=== PATIENT | male | born 1955 | race African-American/Black ===

== ENCOUNTER 2019-10-10 11:30 | Outpatient (RCR) | payer MEDICARE, MEDICAID, SELFPAY ==
[2019-10-01 11:04] VITALS: BP 130/82; PULSE 95; RESP 16; TEMP 37.6; BMI 42.4
--- NOTE | 2019-10-01 11:29 | WC ---
PT STATES HE TAKES NO MEDICATIONS.
--- NOTE | 2019-10-01 12:08 | HP.PCM_ITS ---
(1) Homeless single person Status: Acute Current Visit: Yes Code(s): Z59.0 - Homelessness (2) Swelling of right lower extremity Status: Acute Current Visit: Yes Code(s): M79.89 - Other specified soft tissue disorders (3) Traumatic open wound of right lower leg with infection Status: Acute Current Visit: Yes Code(s): S81.801A - Unspecified open wound, right lower leg, initial encounter; L08.9 - Local infection of the skin and subcutaneous tissue, unspecified (4) Cellulitis of right lower extremity Status: Acute Current Visit: Yes Code(s): L03.115 - Cellulitis of right lower limb History of Present Illness Date of Service: 10/01/19 Chief Complaint: Follow-up right lower leg swelling redness wound right posterior calf History of Wound: 64-year-old black man with homelessness lives in his van with his cat . Was seen today at [facility] they referred him here. Supposedly they simón blood and we will try to obtain the results today. Hit the back of his right leg approximately 2 weeks ago with a car door. Started as a small round injury and now it encompasses the whole calf the right lower leg and foot are swollen red warm to touch. Patient refuses to go to the hospital because of the cat. We discussed if he can try to get someone to take care of the cat return on Sunday for nurse visit we can decide if the leg is improving or not on antimicrobials and antibiotics. Patient is unable to base because of COVID-19 they have closed all the [place]. He goes to the bathroom and most gas stations. Does have an odor and basically has no past medical history. The nurses were able to dopple pulses in the right pedal area Past Medical History Past Medical History: Traumatic wound right posterior leg. Edema right lower leg. Cellulitis right lower leg Allergies/Adverse Reactions: Allergies No Known Allergies Allergy (Verified 10/01/19 11:28) Lives: Alone Smoking Status: Never smoker Tobacco Use: Non-smoker Alcohol: None Drugs: None Review of Systems Constitutional: Reports: Fever - Low grade. Denies: Chills Eyes: Denies: Blurred vision, Drainage, Pain HEENT: Denies: Difficulty Hearing, Difficulty Swallowing, Sore Throat, Visual Changes Cardiovascular: Denies: Chest Pain, Palpitations, Syncope Respiratory: Denies: Cough, Shortness of Breath Gastrointestinal: Denies: Abdominal Pain, Nausea, Vomiting Genitourinary: Denies: Dysuria, Frequency Musculoskeletal: Denies: Joint Pain, Muscle pain Skin: Reports: Wounds - Right posterior calf with swelling of the entire leg redness warm to touch. Denies: Jaundice, Rash Neurological: Denies: Balance problems, Change in Speech, Difficulty swallowing, Focal weakness Psychiatric: Denies: Anxiety, Depression Endocrine: Denies: Change in Body Habitus Hematologic/ Lymphatic: Denies: Adenopathy - Physical Exam Vital Signs Temp Pulse Resp BP 99.6 F H 95 16 130/82 H 10/01/19 11:04 10/01/19 11:04 10/01/19 11:04 10/01/19 11:04 General: Oriented x3, Cooperative, Well developed HEENT: Atraumatic, PERRLA Oral: Moist Mucosa Neck: Supple, No JVD Lungs: Clear to auscultation, Normal air movement Cardiovascular: Regular rate, Regular Rhythm Abdomen: Bowel Sounds Present, Soft, Non Tender, No Hepato-splenomegaly Extremities: No clubbing, Edema - Right lower leg, Peripheral Pulses Normal Skin: Ulcer/ Wound - Traumatic posterior wound to the right lower leg, Rash Present Wound Measurements and Assessment WC - Nurse 1 - General Ulcer Measurement Start: 10/01/19 11:01 Freq: Status: Active Protocol: Activity Type Activity Date Activity User E-Sign Co-Sign Detail Recorded Client Recorded Date Recorded By Document 10/01/19 11:04 [facility] [id number] 10/01/19 11:26 [facility] 10/01/19 11:04 Wound Center Nurse 1 [Ulcer Assessment] #1 RLE POST CLUSTER -Combined with other wound No -Current Size (cm) - Length 32 -Current Size (cm) - Width 31 -Current Size (cm) - Depth 0.1 -Total Square Cm 992 -Date of Last Picture (Recall this 10/01/19 field) -Photo Taken Yes -Epithelialization None Present -Tunneling No -Undermining/Tunneling No -Circular Undermining No -Exudate Amt Small -Exudate Type Serous -Wound Margin Distinct, Outline Attached -Necrosis Amt Large (67-100%) -Necrotic Tissue Type Adherent Slough -Texture (Marva-wound Skin Appearance) Assessed, Scarring -Moisture (Marva-wound Skin Appearance Assessed,Dry/ ) Scaly -Color (Marva-wound Skin Appearance) Assessed, Hemosiderin Staining -Temperature (Marva-wound Skin No Abnormality Appearance) (Pt Warm) -Tenderness on Palpation (Marva-wound Yes Skin Appearance) -Ulcer Cleansing SOAPY WATER -Foul Odor after Cleansing No -Anesthetic Used 4% Lidocaine Solution [Edema Assessment] -Lower Limb Edema Present Yes -Right Calf (cm) 61.5 -Right Ankle (cm) 32.5 -Left Calf (cm) 51 -Left Ankle (cm) 32.5 WC - Nurse 2 - General Ulcer CM Notes Start: 10/01/19 11:01 Freq: Status: Active Protocol: Activity Type Activity Date Activity User E-Sign Co-Sign Detail Recorded Client Recorded Date Recorded By Document 10/01/19 11:38 MW [id number] 10/01/19 12:00 MW 10/01/19 11:38 Wound Center Nurse 2 [Procedure/Treatment] #1 RLE POST CLUSTER -Time 11:39 -Correct Patient Yes -Correct Side, Site, Position Yes -Correct Procedure Yes -Procedure Performed Yes -Type of Procedure Debridement -Clinical Debridement Subcutaneous -Post Debridement Size (cm) - Length 32.0 -Post Debridement Size (cm) - Width 31.0 -Post Debridement Size (cm) - Depth 0.1 -Total Square Cm 992.00 -Wound/Ulcer Outcome Not Healed -Ulcer Cleansing Rinsed/ Irrigated with Saline -Foul Odor after Cleansing No -Bioengineered Tissue No -Bleeding Controlled with Pressure -Offloading No -Treatment Response Procedure Tolerated Well [See Physician Procedure note for Specifics] Pain Scale: 0-10 Numeric [Pain] -Is Patient Pain Free? Yes Musculoskeletal: No Tenderness to Palpation of Joints or Extremities Lymphatic: No Cervical, Supraclavicular, or Inguinal Adenopathy Neurological: Cranial nerves II-XII grossly intact, Neuro grossly intact Psych/Mental Status: Normal Affect, Appropriate, Alert and oriented to time, place, person, mood and affect Debridement Note Post-Debridement Measurements/Treatment - Nurse 2 - General Ulcer CM Notes Start: 10/01/19 11:01 Freq: Status: Active Protocol: Activity Type Activity Date Activity User E-Sign Co-Sign Detail Recorded Client Recorded Date Recorded By Document 10/01/19 11:38 MW [id number] 10/01/19 12:00 MW 05/20/20 11:38 Wound Center Nurse 2 #1 RLE POST CLUSTER -Time 11:39 -Correct Patient Yes -Correct Side, Site, Position Yes -Correct Procedure Yes -Procedure Performed Yes -Type of Procedure Debridement -Clinical Debridement Subcutaneous -Post Debridement Size (cm) - Length 32.0 -Post Debridement Size (cm) - Width 31.0 -Post Debridement Size (cm) - Depth 0.1 -Total Square Cm 992.00 -Wound/Ulcer Outcome Not Healed -Ulcer Cleansing Rinsed/ Irrigated with Saline -Foul Odor after Cleansing No -Bioengineered Tissue No -Bleeding Controlled with Pressure -Offloading No -Treatment Response Procedure Tolerated Well Pain Scale: 0-10 Numeric Is Patient Pain Free? Yes Wound debrided: Right posterior leg Type of Debridement: Excisional debridement Anesthesia Used: 5% Lidocaine Gel Depth: Down to and including healthy tissue, in the subcutaneous layer Percentage of wound debrided: 100 Instrument Used: 7mm curette Tissue Removed: Devitalized tissue slough Severity: Limited To Skin Breakdown Amount of bleeding with debridement: Mild Bleeding Controlled with: Compression and gauze Patient tolerated procedure well Assessment/Plan Active Problems Homeless single person (Acute) Swelling of right lower extremity (Acute) Traumatic open wound of right lower leg with infection (Acute) Cellulitis of right lower extremity (Acute) Assessment: Homeless single person. Traumatic wound right posterior leg. Infected cellulitis swelling right lower leg. Low-grade fever Plan: Wash leg with antibacterial soap. Apply Xeroform dressing to all posterior right lower leg. Pad with ABDs and wrapped with Asif. Zeeshan wrap foot to knee. Follow-up Sunday for nurse visit for dressing change. Start metronidazole 251 p.o. 3 times daily for 14 days. Start Bactrim DS 1 p.o. twice daily for 14 days #28
[2019-10-03 14:25] VITALS: BP 135/73; PULSE 75; RESP 18; TEMP 36.8; BMI 42.4
[2019-10-07 11:01] VITALS: BP 128/70; PULSE 75; RESP 22; TEMP 36.6; BMI 42.4
[2019-10-08 11:04] VITALS: BP 133/74; PULSE 70; RESP 16; TEMP 36.7; BMI 42.4
--- NOTE | 2019-10-08 11:37 | PN.PCM_ITS ---
(1) Homeless single person Status: Acute Current Visit: Yes Code(s): Z59.0 - Homelessness (2) Swelling of right lower extremity Status: Acute Current Visit: Yes Code(s): M79.89 - Other specified soft tissue disorders (3) Traumatic open wound of right lower leg with infection Status: Acute Current Visit: Yes Code(s): S81.801A - Unspecified open wound, right lower leg, initial encounter; L08.9 - Local infection of the skin and subcutaneous tissue, unspecified (4) Cellulitis of right lower extremity Status: Acute Current Visit: Yes Code(s): L03.115 - Cellulitis of right lower limb Type of Wound Date of Service: 10/08/19 Chief Complaint: Follow-up right lower leg swelling redness wound right posterior calf History of Wound: 64-year-old black man with homelessness lives in his van with his cat . Was seen today at [facility] they referred him here. Supposedly they simón blood and we will try to obtain the results today. Hit the back of his right leg approximately 2 weeks ago with a car door. Started as a small round injury and now it encompasses the whole calf the right lower leg with his car door and developed an abrasion now the right foot is swollen red warm to touch. Patient refuses to go to the hospital because of the cat. We discussed if he can try to get someone to take care of the cat return on Sunday for nurse visit we can decide if the leg is improving or not on antimicrobials and antibiotics. Patient is unable to bath because of COVID-19 they have closed all the [place]. He goes to the bathroom and most gas stations. Does have an odor and basically has no past medical history. The nurses were able to dopple pulses in the right pedal area Progress of Wound: Today the wounds are much improved most of the posterior right calf is resolved set for 2 small areas and that was using Xeroform. Swelling is down. Patient grew 3 bacteria is no anaerobes. We will continue the sulfa but will add in clindamycin and Levaquin. Patient may stop the Flagyl. Continue nurse visits twice a week for dressing changes using Xeroform and will add in AmLactin cream to the dry skin. Patient may be discharged soon and just finished antibiotics on his own. Patient was reiterated to start probiotics and eat yogurt - Physical Exam Vital Signs Temp Pulse Resp BP 98.1 F 70 16 133/74 H 10/08/19 11:04 10/08/19 11:04 10/08/19 11:04 10/08/19 11:04 General: Oriented x3, Cooperative, Well developed HEENT: Atraumatic, PERRLA Oral: Moist Mucosa Neck: Supple, No JVD Lungs: Clear to auscultation, Normal air movement Cardiovascular: Regular rate, Regular Rhythm Abdomen: Bowel Sounds Present, Soft, Non Tender, No Hepato-splenomegaly Extremities: No clubbing, No edema Skin: Ulcer/ Wound - Posterior calf and right anterior lock small superficial openings Wound Measurements and Assessment WC - Nurse 1 - General Ulcer Measurement Start: 10/01/19 11:01 Freq: Status: Active Protocol: Activity Type Activity Date Activity User E-Sign Co-Sign Detail Recorded Client Recorded Date Recorded By Document 10/07/19 11:01 DL [id number] 10/07/19 11:22 DL Document 10/08/19 11:04 [facility] [id number] 10/08/19 11:13 [facility] 10/07/19 10/08/19 11:01 11:04 Wound Center Nurse 1 [Ulcer Assessment] #1 RLE POST CLUSTER -Combined with other wound No -Current Size (cm) - Length 0.1 -Current Size (cm) - Width 0.1 -Current Size (cm) - Depth 0.1 -Total Square Cm 0.01 -Photo Taken No -Epithelialization Large 67-100% -Tunneling No -Undermining/Tunneling No -Circular Undermining No -Exudate Amt None Present -Wound Margin Flat & Intact -Granulation Amt Small (1-33%) -Granulation Quality Red -Slough/Fibrin No -Necrosis Amt None Present (0 %) -Texture (Marva-wound Skin Appearance) Scarring Assessed, Scarring -Moisture (Marva-wound Skin Appearance Dry/Scaly Assessed, ) Maceration,Dry/ Scaly -Color (Marva-wound Skin Appearance) Hemosiderin Assessed,Palor Staining -Temperature (Marva-wound Skin No Abnormality No Abnormality Appearance) (Pt Warm) (Pt Warm) -Tenderness on Palpation (Marva-wound No No Skin Appearance) -Ulcer Cleansing Wound Cleanser soapy water -Foul Odor after Cleansing No No -Anesthetic Used 4% Lidocaine Solution [Edema Assessment] -Lower Limb Edema Present Yes -Right Calf (cm) 52 -Right Ankle (cm) 28.6 WC - Nurse 2 - General Ulcer CM Notes Start: 10/01/19 11:01 Freq: Status: Active Protocol: Activity Type Activity Date Activity User E-Sign Co-Sign Detail Recorded Client Recorded Date Recorded By Document 10/08/19 11:22 MW [id number] 10/08/19 11:28 MW 10/08/19 11:22 Wound Center Nurse 2 [Procedure/Treatment] #2 right lateral lock -Time 11:24 -Correct Patient Yes -Correct Side, Site, Position Yes -Correct Procedure Yes -Procedure Performed Yes -Type of Procedure Debridement -Clinical Debridement Subcutaneous -Post Debridement Size (cm) - Length 1.0 -Post Debridement Size (cm) - Width 1.2 -Post Debridement Size (cm) - Depth 0.1 -Total Square Cm 1.20 -Wound/Ulcer Outcome Not Healed -Ulcer Cleansing Rinsed/ Irrigated with Saline -Foul Odor after Cleansing No -Bioengineered Tissue No -Bleeding Controlled with Pressure -Offloading No -Treatment Response Procedure Tolerated Well #1 RLE POST CLUSTER -Time 11:23 -Correct Patient Yes -Correct Side, Site, Position Yes -Correct Procedure Yes -Procedure Performed Yes -Type of Procedure Debridement -Clinical Debridement Subcutaneous -Post Debridement Size (cm) - Length 7.0 -Post Debridement Size (cm) - Width 4.5 -Post Debridement Size (cm) - Depth 0.1 -Total Square Cm 31.50 -Wound/Ulcer Outcome Not Healed -Ulcer Cleansing Rinsed/ Irrigated with Saline -Foul Odor after Cleansing No -Bioengineered Tissue No -Bleeding Controlled with Pressure -Offloading No -Treatment Response Procedure Tolerated Well [See Physician Procedure note for Specifics] Musculoskeletal: No Tenderness to Palpation of Joints or Extremities Lymphatic: No Cervical, Supraclavicular, or Inguinal Adenopathy Neurological: Cranial nerves II-XII grossly intact, Neuro grossly intact Psych/Mental Status: Normal Affect, Appropriate Debridement Note Post-Debridement Measurements/Treatment WC - Nurse 2 - General Ulcer CM Notes Start: 10/01/19 11:01 Freq: Status: Active Protocol: Activity Type Activity Date Activity User E-Sign Co-Sign Detail Recorded Client Recorded Date Recorded By Document 10/01/19 11:38 MW [id number] 10/01/19 12:00 MW Document 10/08/19 11:22 MW [id number] 10/08/19 11:28 MW 10/01/19 10/08/19 11:38 11:22 Wound Center Nurse 2 #2 right lateral lock -Time 11:24 -Correct Patient Yes -Correct Side, Site, Position Yes -Correct Procedure Yes -Procedure Performed Yes -Type of Procedure Debridement -Clinical Debridement Subcutaneous -Post Debridement Size (cm) - Length 1.0 -Post Debridement Size (cm) - Width 1.2 -Post Debridement Size (cm) - Depth 0.1 -Total Square Cm 1.20 -Wound/Ulcer Outcome Not Healed -Ulcer Cleansing Rinsed/ Irrigated with Saline -Foul Odor after Cleansing No -Bioengineered Tissue No -Bleeding Controlled with Pressure -Offloading No -Treatment Response Procedure Tolerated Well #1 RLE POST CLUSTER -Time 11:39 11:23 -Correct Patient Yes Yes -Correct Side, Site, Position Yes Yes -Correct Procedure Yes Yes -Procedure Performed Yes Yes -Type of Procedure Debridement Debridement -Clinical Debridement Subcutaneous Subcutaneous -Post Debridement Size (cm) - Length 32.0 7.0 -Post Debridement Size (cm) - Width 31.0 4.5 -Post Debridement Size (cm) - Depth 0.1 0.1 -Total Square Cm 992.00 31.50 -Wound/Ulcer Outcome Not Healed Not Healed -Ulcer Cleansing Rinsed/ Rinsed/ Irrigated with Irrigated with Saline Saline -Foul Odor after Cleansing No No -Bioengineered Tissue No No -Bleeding Controlled with Pressure Pressure -Offloading No No -Treatment Response Procedure Procedure Tolerated Well Tolerated Well Pain Scale: 0-10 Numeric Is Patient Pain Free? Yes Wound debrided: Right posterior calf cluster Type of Debridement: Excisional debridement Anesthesia Used: 5% Lidocaine Gel Depth: Down to and including healthy tissue Instrument Used: 7mm curette Tissue Removed: Devitalized tissue Severity: Limited To Skin Breakdown Amount of bleeding with debridement: None Bleeding Controlled with: Pressure - Additional Wound Wound debrided: Anterior lateral lock Laterality: Right Type of Debridement: Excisional debridement Anesthesia Used: 5% Lidocaine Gel Depth: Down to and including healthy tissue Percentage of wound debrided: 100 Instrument Used: 7mm curette Tissue Removed: Devitalized tissue Severity: Limited To Skin Breakdown Amount of bleeding with debridement: None Bleeding Controlled with: Pressure Patient tolerated procedure: Patient tolerated procedure well Assessment/Plan Active Problems Homeless single person (Acute) Swelling of right lower extremity (Acute) Traumatic open wound of right lower leg with infection (Acute) Cellulitis of right lower extremity (Acute) Assessment: Homeless single person. Traumatic wound right posterior leg. Infected cellulitis swelling right lower leg. Low-grade fever Plan: Wash leg with antibacterial soap. Apply Xeroform dressing to all posterior right lower leg. Pad with ABDs and wrapped with Asif. Zeeshan wrap foot to knee. Follow-up Sunday for nurse visit for dressing change. Start metronidazole 251 p.o. 3 times daily for 14 days. Start Bactrim DS 1 p.o. twice daily for 14 days #28
[2019-10-10 11:30] VITALS: BP 128/75; PULSE 72; RESP 16; TEMP 36.5; BMI 42.4
== END 2019-10-12 23:59 ==
LOC: WC 11:30
PROVIDERS: Visit Provider Nurse Practitioner
DX: S81.801A Unspecified open wound, right lower leg, initial encounter (principal); L03.115 Cellulitis of right lower limb; M79.89 Other specified soft tissue disorders; Z59.0 Homelessness
CPT/HCPCS: 11042; 11045; 87070; 87075; 87077; 87186; 87205; 99203; 99212; 99213; G0463

== ENCOUNTER 2019-10-15 11:00 | Outpatient (RCR) | payer MEDICARE, MEDICAID, SELFPAY ==
[2019-10-13 00:35] VITALS: BP 128/75; PULSE 72; RESP 16; TEMP 36.5
[2019-10-13 11:46] VITALS: BP 156/61; PULSE 91; RESP 22; TEMP 35.7; BMI 42.4
[2019-10-15 11:07] VITALS: BP 129/71; PULSE 78; RESP 16; TEMP 36.5; BMI 42.4
--- NOTE | 2019-10-15 11:31 | PCM.WC.PN ---
(1) Cellulitis of right lower extremity Status: Acute Current Visit: No Code(s): L03.115 - Cellulitis of right lower limb (2) Homeless single person Status: Acute Current Visit: No Code(s): Z59.0 - Homelessness (3) Swelling of right lower extremity Status: Acute Current Visit: No Code(s): M79.89 - Other specified soft tissue disorders (4) Traumatic open wound of right lower leg with infection Status: Acute Current Visit: No Code(s): S81.801A - Unspecified open wound, right lower leg, initial encounter; L08.9 - Local infection of the skin and subcutaneous tissue, unspecified Type of Wound Date of Service: 10/15/19 Chief Complaint: Follow-up right lower leg swelling redness wound right posterior calf History of Wound: 64-year-old black man with homelessness lives in his van with his cat . Was seen today at [facility] they referred him here. Supposedly they simón blood and we will try to obtain the results today. Hit the back of his right leg approximately 2 weeks ago with a car door. Started as a small round injury and now it encompasses the whole calf the right lower leg with his car door and developed an abrasion now the right foot is swollen red warm to touch. Patient refuses to go to the hospital because of the cat. We discussed if he can try to get someone to take care of the cat return on Sunday for nurse visit we can decide if the leg is improving or not on antimicrobials and antibiotics. Patient is unable to bath because of COVID-19 they have closed all the [place]. He goes to the bathroom and most gas stations. Does have an odor and basically has no past medical history. The nurses were able to dopple pulses in the right pedal area Progress of Wound: Today all the wounds are healed patient will be discharged from the wound center - Physical Exam Vital Signs Temp Pulse Resp BP 97.7 F L 78 16 129/71 H 10/15/19 11:10/15/19 11:07 10/15/19 11:10/15/19 11:07 General: Oriented x3, Cooperative, Well developed HEENT: Atraumatic, PERRLA Oral: Moist Mucosa Neck: Supple, No JVD Lungs: Clear to auscultation, Normal air movement Cardiovascular: Regular rate, Regular Rhythm Abdomen: Bowel Sounds Present, Soft, Non Tender, No Hepato-splenomegaly Extremities: No clubbing, No edema Skin: Ulcer/ Wound - Right posterior calf anterior calf resolved leg is still has some erythema Wound Measurements and Assessment WC - Nurse 1 - General Ulcer Measurement Start: 10/13/19 11:46 Freq: Status: Active Protocol: Activity Type Activity Date Activity User E-Sign Co-Sign Detail Recorded Client Recorded Date Recorded By Document 10/13/19 11:46 DL [id number] 10/13/19 11:50 DL Document 10/15/19 11:07 BMF [id number] 10/15/19 11:14 BMF 10/13/19 10/15/19 11:46 11:07 Wound Center Nurse 1 [Ulcer Assessment] #2 right lateral lock -Combined with other wound No -Current Size (cm) - Length 0.1 -Current Size (cm) - Width 0.1 -Current Size (cm) - Depth 0.1 -Total Square Cm 0.01 -Photo Taken No -Epithelialization Large 67-100% -Tunneling No -Undermining/Tunneling No -Circular Undermining No -Exudate Amt None Present -Wound Margin Indistinct, Non -Visible -Slough/Fibrin Yes -Necrosis Amt Small (1-33%) -Necrotic Tissue Type Eschar -Texture (Marva-wound Skin Appearance) Scarring Assessed, Scarring -Moisture (Marva-wound Skin Appearance Dry/Scaly Assessed,Dry/ ) Scaly -Color (Marva-wound Skin Appearance) Hemosiderin Assessed Staining -Temperature (Marva-wound Skin No Abnormality No Abnormality Appearance) (Pt Warm) (Pt Warm) -Tenderness on Palpation (Marva-wound No No Skin Appearance) -Ulcer Cleansing Wound Cleanser soapy water -Foul Odor after Cleansing No No #1 RLE POST CLUSTER -Combined with other wound No -Current Size (cm) - Length 0.1 -Current Size (cm) - Width 0.1 -Current Size (cm) - Depth 0.1 -Total Square Cm 0.01 -Photo Taken No -Epithelialization Large 67-100% -Tunneling No -Undermining/Tunneling No -Circular Undermining No -Exudate Amt None Present None Present -Texture (Marva-wound Skin Appearance) Scarring Assessed, Scarring -Moisture (Marva-wound Skin Appearance Dry/Scaly Assessed,Dry/ ) Scaly -Color (Marva-wound Skin Appearance) No Abnormality Assessed -Temperature (Marva-wound Skin No Abnormality No Abnormality Appearance) (Pt Warm) (Pt Warm) -Tenderness on Palpation (Marva-wound No No Skin Appearance) -Ulcer Cleansing Wound Cleanser soapy water -Foul Odor after Cleansing No No [Edema Assessment] -Lower Limb Edema Present Yes -Right Calf (cm) 55 54.6 -Right Ankle (cm) 33 31.3 WC - Nurse 2 - General Ulcer CM Notes Start: 10/13/19 11:46 Freq: Status: Active Protocol: Activity Type Activity Date Activity User E-Sign Co-Sign Detail Recorded Client Recorded Date Recorded By Document 10/15/19 11:28 MW [id number] 10/15/19 11:29 MW 10/15/19 11:28 Wound Center Nurse 2 [Procedure/Treatment] #2 right lateral lock -Time 11:28 -Correct Patient Yes -Correct Side, Site, Position Yes -Correct Procedure Yes -Procedure Performed No -Post Debridement Size (cm) - Length 0 -Post Debridement Size (cm) - Width 0 -Post Debridement Size (cm) - Depth 0 -Total Square Cm 0 -Wound/Ulcer Outcome Healed- Epithelialized #1 RLE POST CLUSTER -Time 11:28 -Correct Patient Yes -Correct Side, Site, Position Yes -Correct Procedure Yes -Procedure Performed No -Post Debridement Size (cm) - Length 0 -Post Debridement Size (cm) - Width 0 -Post Debridement Size (cm) - Depth 0 -Total Square Cm 0 -Wound/Ulcer Outcome Healed- Epithelialized [See Physician Procedure note for Specifics] Pain Scale: 0-10 Numeric [Pain] -Is Patient Pain Free? Yes Musculoskeletal: No Tenderness to Palpation of Joints or Extremities Lymphatic: No Cervical, Supraclavicular, or Inguinal Adenopathy Neurological: Cranial nerves II-XII grossly intact, Neuro grossly intact Psych/Mental Status: Normal Affect, Appropriate Debridement Note Post-Debridement Measurements/Treatment - Nurse 2 - General Ulcer CM Notes Start: 10/13/19 11:46 Freq: Status: Active Protocol: Activity Type Activity Date Activity User E-Sign Co-Sign Detail Recorded Client Recorded Date Recorded By Document 10/15/19 11:28 MW [id number] 10/15/19 11:29 MW 10/15/19 11:28 Wound Center Nurse 2 #2 right lateral lock -Time 11:28 -Correct Patient Yes -Correct Side, Site, Position Yes -Correct Procedure Yes -Procedure Performed No -Post Debridement Size (cm) - Length 0 -Post Debridement Size (cm) - Width 0 -Post Debridement Size (cm) - Depth 0 -Total Square Cm 0 -Wound/Ulcer Outcome Healed- Epithelialized #1 RLE POST CLUSTER -Time 11:28 -Correct Patient Yes -Correct Side, Site, Position Yes -Correct Procedure Yes -Procedure Performed No -Post Debridement Size (cm) - Length 0 -Post Debridement Size (cm) - Width 0 -Post Debridement Size (cm) - Depth 0 -Total Square Cm 0 -Wound/Ulcer Outcome Healed- Epithelialized Pain Scale: 0-10 Numeric Is Patient Pain Free? Yes No debridement was completed today Assessment/Plan Assessment: Homeless single person. Traumatic wound right posterior leg. Infected cellulitis swelling right lower leg. Low-grade fever Plan: Continue antibiotic therapy till done. Continue amLactin cream to dry areas. Continue washing and cleaning legs. Follow-up as needed discharge from the wound center
== END 2019-11-11 23:59 ==
LOC: WC 11:00
PROVIDERS: Visit Provider Nurse Practitioner
DX: S81.801A Unspecified open wound, right lower leg, initial encounter (principal); M79.89 Other specified soft tissue disorders; Z59.0 Homelessness; L03.115 Cellulitis of right lower limb
CPT/HCPCS: 99212; 99213; G0463

== ENCOUNTER 2022-09-22 08:04 | Emergency (ER) | payer MEDICARE, MEDICAID, SELFPAY ==
[2022-09-22 08:05] VITALS: BP 124/75; PULSE 99; RESP 16; TEMP 36.6; O2SAT 96
[2022-09-22 08:19] VITALS: BMI 49.1
--- NOTE | 2022-09-22 08:21 | EX.ED.DYSGE1 ---
HPI History of Present Illness Chief Complaint: Edema Informant: patient Narrative Narrative: Patient presenting with chronic edema to both of his legs he thinks they have been worse in the past 2 weeks, limiting his ability to stand and walk although he states he is still able and he walked in here. He states he is homeless and does not see a doctor and wants to get things started. He had seen wound care at 1 point in the past unknown how long ago. He has had a sore open wound either from rubbing on his shoe or from accidentally picking open a scab, on his left foot/ankle for about the past week. He denies any systemic symptoms or issues above the legs right now. He states he had a cough several weeks ago where he was coughing up sputum and then small amount of blood but all of that stopped and is better now. PFSH PFSH Medical History no medical history no medical history (Unknown due to not seeing a provider in a long time) Home Medications bacitracin zinc 500 unit/gram topical ointment 1 applic topical BID PRN wounds #14 grams 09/22/22 [Rx Last Taken Unknown] furosemide 40 mg tablet (Lasix) 40 mg PO DAILY #30 tabs 09/22/22 [Rx Last Taken Unknown] potassium chloride 20 mEq tablet,extended release 20 meq PO BID #60 tabs 09/22/22 [Rx Last Taken Unknown] Allergy/AdvReac Type Severity Reaction Status Date / Time No Known Allergies Allergy Verified 09/22/22 08:05 Social History Smoking Status: Never smoker [facility] ED Constitutional Constitutional ED: Denies chills or fever(s) Eyes Eyes: Denies change in vision or diplopia ENT ENT ED: Denies rhinorrhea or sore throat Cardiovascular Cardiovascular: Reports leg edema; Denies chest pain or palpitations Respiratory/Chest Respiratory/Chest: Denies cough or dyspnea Gastrointestinal Gastrointestinal: Denies abdominal pain, diarrhea, nausea or vomiting Genitourinary Genitourinary ED: Denies dysuria or hematuria Musculoskeletal Musculoskeletal: Reports as per HPI and extremity pain; Denies back pain or neck pain Integumentary Reports wounds; Denies abscess or rash Neurologic Neurologic: Denies headache(s), paresthesias or weakness Psychiatric Psychiatric: Denies anxiety or suicidal thoughts EXAM Physical Exam Const Vital Signs: 09/22/22 08:05 09/22/22 08:15 Temperature 97.8 F Temperature Source Temporal Pulse Rate 99 Respiratory Rate 16 Respiratory Effort Normal Non-Labored Blood Pressure 124/75 H Blood Pressure Mean 91 Pulse Ox 96 Oxygen Delivery Method Room Air Positive well nourished, well developed, obese and unkempt General Appearance ED: unkempt, well developed and NAD Nutritional Appearance: obese HEENT Reports moist mucous membranes normocephalic and atraumatic Eyes PERRL and EOMs intact bilaterally Neck full ROM and supple Resp normal respiratory effort and clear to auscultation bilaterally Cardio regular rate, regular rhythm and no murmurs Rate: Negative for tachycardic GI non-tender and non-distended Auscultation: normoactive bowel sounds Palpation: soft Back/Spine no CVA tenderness General Back: other FROM Extremity Extremity Narrative: Superficial ulcerated wound with some signs of granulation tissue about 5-6 cm? left dorsal-lateral ankle area, and another 1 on the back of his distal left calf. The exposed wounds themselves are a little sore but there is no surrounding tenderness/signs of cellulitis. There is also a nontender boggy area right heel that has some serosanguineous discharge from it. Otherwise, both of his lower extremities have severe chronic swelling, scabbing, signs of stasis dermatitis, and signs of elephantiasis with folds and creases in the skin. General Extremety ED: Yes edema and tenderness; Negative for pulses abnormal General Extremity: edema bilateral lower extremity Details: severe; Negative for pulses abnormal Neuro oriented x3, CN's II-XII intact bilaterally and no sensory deficits noted Sensorium / Orientation: awake and alert Motor Exam: strength 5/5 throughout Psych Appearance: unkempt Skin no rashes or lesions noted and no wounds MDM MDM MDM Narrative Medical decision making narrative: Patient has severely chronic problems in his lower extremities, but except for the minor wound do not appear to be infected, none of it looks emergent. Basic labs are unremarkable except for slight hypokalemia, I did a BNP just because of the amount of edema he was having, it is well within normal limits arguing against acute decompensated congestive heart failure. I also did 2 view x-rays of each ankle, to capture the areas where the wounds were, on my interpretation there is swelling but no subcutaneous gas to suggest a necrotizing infection. Radiology interpretation was reviewed and they are in agreement. I give the patient He while we were observing him, I think he is going to need this going forward and I will put him on potassium as well as referring him to wound care, but I am having social work see him to see if there is anything else they can offer him since I do not have a medical reason to admit him. We will also perform a dressing treatment for either of the wounds on his feet/ankles, and I am prescribing him antibiotic ointment to use topically for those to prevent infection. I did send a culture of the fluid coming out of the heel wound on the right foot. I do not think he needs antibiotics systemically at this time. Social work saw him and gave him some resources that hopefully will help, I will refer him to PCP as well as wound care, nursing will give him some supplies to use with the prescribed bacitracin, as well as dressings here and instructions for discharge. Lab Data Attestation: I reviewed the patient's lab results. Labs: Laboratory Results - last 24 hr 09/22/22 09/22/22 09/22/22 08:50 08:50 08:50 WBC 8.9 RBC 4.45 L Hgb 12.5 L Hct 39.7 L MCV 89.2 MCH 28.1 MCHC 31.5 L RDW Std Deviation 45.7 H RDW Coeff of Thiago 14.1 Plt Count 236 MPV 10.0 Immature Gran % (Auto) 1.600 H Neut % (Auto) 79.6 H Lymph % (Auto) 9.5 L [place] % (Auto) 6.9 Eos % (Auto) 1.5 Baso % (Auto) 0.9 Absolute Neuts (auto) 7.1 Absolute Lymphs (auto) 0.84 Nucleated RBC % 0 Sodium 138 Potassium 3.2 L Chloride 103 Carbon Dioxide 30.0 Anion Gap 5 BUN 13 Creatinine 0.85 Estim Creat Clear Calc 87.36 Est GFR (MDRD) Af Amer 115 Est GFR (MDRD) Non-Af 95 BUN/Creatinine Ratio 15.4 Glucose 107 H Calcium 9.2 B-Natriuretic Peptide 24.2 Radiography Diagnostic Testing: Clinical Impression(s) from Imaging Studies Ankle X-Ray 09/22/22 09:16 IMPRESSION: Diffuse soft tissue swelling. Electronically Signed: Ferny Estrada MD at 9:44 EDT , Ankle X-Ray 09/22/22 09:20 IMPRESSION: Diffuse soft tissue swelling. Electronically Signed: Ferny Estrada MD at 9:45 EDT , Management Discussion w/another healthcare provider: youth care worker/Case management Discharge Plan Triage Chief Complaint: Edema ED Provider: Cristhian Mckenzie Dx/Rx/DC Orders Clinical Impression: Lymphedema of both lower extremities, Open wound of foot excluding toes without complication, Hypokalemia Instructions: Hypokalemia Dc, ED Lymphedema Prescriptions: New furosemide [Lasix] 40 mg tablet 40 mg PO DAILY Qty: 30 0RF potassium chloride 20 mEq tablet extended release 20 meq PO BID Qty: 60 0RF bacitracin zinc 500 unit/gram ointment 1 applic topical BID PRN (Reason: wounds) Qty: 14 0RF Primary Care Provider: Yajaira Heller Referrals: Wound Health [Outside] Yajaira Heller [Primary Care Provider] - Activity Restrictions/Additional Instructions: Follow nurses instructions regarding dressing changes to your foot wounds. Change the dressings twice daily at least, applying a small amount of the prescription antibiotic ointment to the dressing with each change. Disposition Disposition: Home, Self Care
[2022-09-22 09:04] LABS: Absolute Lymphocyte Count 0.84 X10^3/uL (0.83-4.51); Absolute Neutrophil Count 7.1 X10^3/uL (2.0-7.7); Basophil# 0.08 X10^3/uL; Basophil% 0.9 % (0-1); Eosinophil# 0.13 X10^3/uL; Eosinophils% 1.5 % (0-5); Hematocrit 39.7 % (40-54); Hemoglobin 12.5 g/dL (13.0-16.5); Lymphocyte # 0.84 X10^3/ul (0.83-4.51); Lymphocyte % 9.5 % (19-41); Mean Corp Hgb Conc 31.5 g/dL (32-36); Mean Corpuscular Hgb 28.1 pg (27.0-32.0); Mean Corpuscular Volume 89.2 fL (80-94); Monocyte# 0.61 X10^3/uL; Monocyte% 6.9 % (0-10); NRBC Flagged by Analyzer 0 % (0-5); Neutrophil # 7.08 X10^3/uL (2.7-7.7); Neutrophil % 79.6 % (47-70); Platelet Count 236 K/mm3 (150-450); RBC Distribution Width CV 14.1 % (11.6-14.6); RBC Distribution Width SD 45.7 fl (35.1-43.9); Red Blood Count 4.45 M/mm3 (4.6-6.2); White Blood Count 8.9 K/mm3 (4.4-11.0)
--- NOTE | 2022-09-22 09:16 | RAD_ITS ---
STUDY: X-RAY - RIGHT ANKLE REASON FOR EXAM: Male, 67 years old. PAIN/SWELLING TECHNIQUE: 2 view(s) of the ankle. COMPARISON: None. FINDINGS: Normal visualized distal tibia and fibula. Normal medial and lateral malleoli. Normal tibiotalar articulation and ankle mortise. Small plantar calcaneal spur. The visualized subtalar, talonavicular, calcaneocuboid and tarsal articulations are normal. Diffuse soft tissue swelling. RAD/Ankle 2 Views IMPRESSION: Diffuse soft tissue swelling. Electronically Signed: Ferny Estrada MD at 9:44 EDT ,
[2022-09-22 09:18] LABS: Anion Gap 5 (5-15); BUN 13 mg/dL (7-18); BUN/Creat Ratio 15.4 RATIO (10-20); Calcium,Total 9.2 mg/dL (8.5-10.1); Chloride 103 mmol/L (98-107); Creatinine, Serum 0.85 mg/dL (0.70-1.30); EST Glomerular Filtration Rate 95 mL/min (>60); Est Glom Filt Rate - Afr Amer 115 mL/min (>60); Estimated Creatinine Clearance 87.36 ml/min; Glucose 107 mg/dL (74-106); Potassium 3.2 mmol/L (3.5-5.1); Sodium Level 138 mmol/L (136-145)
[2022-09-22 09:19] LABS: BNP,B-Type NATRIURETIC PEPTIDE 24.2 pg/mL (0-100)
--- NOTE | 2022-09-22 09:20 | RAD_ITS ---
STUDY: X-RAY - LEFT ANKLE REASON FOR EXAM: Male, 67 years old. Pain/swelling TECHNIQUE: 2 view(s) of the ankle. COMPARISON: None. FINDINGS: Normal visualized distal tibia and fibula. Normal medial and lateral malleoli. Normal tibiotalar articulation and ankle mortise. A spur is seen at the insertion of the Achilles tendon. The visualized subtalar, talonavicular, calcaneocuboid and tarsal articulations are normal. Diffuse soft tissue swelling. RAD/Ankle 2 Views IMPRESSION: Diffuse soft tissue swelling. Electronically Signed: Ferny Estrada MD at 9:45 EDT ,
[2022-09-22] MEDS: Furosemide 40 MG/4 ML Vial IV (09:42)
--- NOTE | 2022-09-22 11:30 | CM.ED ---
Social Work Note Referral Source: MD Mckenzie/ applied behavior science specialist Aminata Referral Reason: resources applied behavior science specialist reports patient is homeless and living in his vehicle. reviewed symptoms and need for additional resources. BRIANA met with patient and patient's guest and introduced herself and role as [facility] Director Environmental. Patient explained his guest is his friend of 7 years and agreed to speak to SW with friend present. SW engaged patient in conversation regarding current housing, community resources and needs. Patient reports he has lived in a vehicle for ten years and has not wanted to go to [facility] or other shelters. Patient reports he is not connected with any community agencies but has utilized [employer] services in the past. SW reviewed [employer] card and explored meal options provided daily. SW also discussed senior accounts specialist with [facility] [employer], [facility] programs, and local housing support. Patient declined referrals for resources but states he will follow up with [facility] for an assessment. Patient's friend inquired about shoe options. Patient reports he isn't interested in getting shoes, SW inquired if she could gather information regarding options and patient can use if he decides, patient agrees. BRIANA provided patient with information for [employer] to discuss available shoe options. SW also encouraged patient to contact Yajaira Heller for a possible prescription for medical shoes. BRIANA explained patient could contact their office to schedule an appointment or go to [facility] in [place] on from 8-10am as Yajaira Heller staff provide care to patients on a walk in basis. Patient reports understanding and has no other needs at this time. BRIANA contacted Bernardo with [facility] to discuss referral for patient. Bernardo to follow up with patient. Plan: [employer] for housing and meal options, [employer] information, Yajaira Heller information, [employer] and [employer] Senior visitor services specialist. Patient declined referrals but plans to contact [facility] and follow up with Yajaira JORGE, ROSALINDA
[2022-09-22] MEDS: Potassium Chloride Oral Tablet 20 MEQ 40 MEQ PO (11:52)
[2022-09-22 12:00] VITALS: RESP 22
== END 2022-09-22 12:26 | disposition home or self-care (01) ==
PROVIDERS: Emergency Provider Emergency Medicine; Visit Provider Emergency Medicine
DX: I89.0 Lymphedema, not elsewhere classified (principal); S91.302A Unspecified open wound, left foot, initial encounter; E87.6 Hypokalemia; E66.9 Obesity, unspecified; X58.XXXA Exposure to other specified factors, initial encounter
CPT/HCPCS: 73600; 80048; 83880; 85025; 87070; 87077; 87186; 87205; 96374; 99284; A4216; J1940

== ENCOUNTER 2022-10-10 09:00 | Outpatient (RCR) | payer MEDICARE, MEDICAID, SELFPAY ==
[2022-10-05 09:08] VITALS: BP 138/98; RESP 16; TEMP 36.6; BMI 47.4
--- NOTE | 2022-10-05 12:52 | PCM.WC.HP ---
History of Present Illness Date of Service: 10/05/22 Chief Complaint: Bilateral lower extremity ulcers. History of Wound: Mr. Beltran is a 67 yo who was referred to the wound center due to bilateral lower extremity ulcer. Clinic history of lymphedema. He is currently homeless and has been living in his van. He states that over the recent months, he has been sitting a lot more is not as active as it should be. He also states that he has not been using his compression. Recently seen at the emergency room due to concern for feeling unwell, he was started on antibiotics and has 1 more day of it. Tolerating antibiotic well. Initially had a lot of drainage from his ulcers but he states that this has improved. No known history of diabetes. No chills, fever or feeling of unwell at this time. [facility] Medical History (Updated 10/05/22 @ 13:[address] Franklyn Sanchez MD) Lymphedema Ulcer of left lower extremity with fat layer exposed Ulcer of right lower extremity with fat layer exposed Home Medications bacitracin zinc 500 unit/gram topical ointment 1 applic topical BID PRN wounds #14 grams 09/22/22 [Rx Last Taken Unknown] furosemide 40 mg tablet (Lasix) 40 mg PO DAILY #30 tabs 09/22/22 [Rx Last Taken Unknown] potassium chloride 20 mEq tablet,extended release 20 meq PO BID #60 tabs 09/22/22 [Rx Last Taken Unknown] levofloxacin 500 mg tablet 500 mg PO DAILY #10 tabs 09/26/22 [Rx Last Taken Unknown] Allergy/AdvReac Type Severity Reaction Status Date / Time No Known Allergies Allergy Verified 10/05/22 09:41 Social History Smoking Status: Former smoker ROS Constitutional Constitutional: Denies excessive sweating, fatigue, fever(s), headache(s), lethargy or malaise Eyes Eyes: Denies change in eye color, change in vision, discharge from eye(s), discongugate gaze, double vision or dry eyes ENT HEENT: Denies headache(s), hearing loss, hoarseness, mouth pain, nasal congestion, nasal discharge or nasal obstruction Cardiovascular Cardiovascular: Reports edema; Denies cold extremities, cyanosis, diaphoresis, dizziness, dyspnea at rest or flutter in chest Respiratory/Chest Respiratory/Chest: Denies excessive phlegm production, hemoptysis, inability to speak, mouth breathing, nail bed cyanosis, productive cough or restlessness Gastrointestinal Gastrointestinal: Denies belching, chewing difficulty, constipation, dysphagia, nausea or vomiting Genitourinary Genitourinary: Denies abdominal discomfort, anuria, flank pain or itching Musculoskeletal Musculoskeletal: Reports extremity pain; Denies deformity, loss of height, muscle weakness, tingling or tremors Integumentary Integumentary: Reports wounds; Denies change in pigmentation, changing lesions, erythema, furuncle, hirsutism, jaundice or lesions Neurologic Neurologic: Denies dizziness, focal weakness, frequent falls, headache(s), lack of coordination, loss of vision, memory loss or numbness Psychiatric Psychiatric: Denies cognitive impairment, confusion, depression, difficulty concentrating, hallucinations, homicidal ideation or hopelessness Endocrine Endocrinology: Denies cold intolerance, deepening of the voice, excessive sweating, flushing, heat intolerance or palpitations Allergic/Immunologic Allergic/Immunologic: Denies lip swelling, rhinitis, throat swelling, tongue swelling or wheezing Vital Signs Vital Signs Vital Signs: 10/05/22 09:08 Temperature 97.9 F Temperature Source Temporal Respiratory Rate 16 Blood Pressure 138/98 H Blood Pressure Mean 111 Blood Pressure Source Monitor Blood Pressure Position Sitting Blood Pressure Location Left Forearm Oxygen Delivery Method Room Air Weight Weight: 340 lb Body Mass Index (BMI) 47.4 Physical Exam Const alert, oriented x3 and no apparent distress General Appearance: cooperative and comfortable HEENT normocephalic, head/scalp atraumatic and hearing grossly normal bilaterally Eyes EOMs intact bilaterally Neck full ROM Resp normal respiratory effort Effort and Inspection: able to speak in complete sentences Extremity General Extremity: edema Skin Wounds: wounds noted Neuro oriented x3, CN's II-XII intact bilaterally and moves all extremities Psych mental status grossly normal, thought process normal, cooperative and affect normal Debridement Note Debridement Note Wound debrided: Left lower extremity lateral Type of Debridement: Excisional debridement Anesthesia Used: 4% Lidocaine Solution Depth: Down to and including healthy tissue and in the subcutaneous layer Percentage of wound debrided: 100 Instrument Used: 5mm curette Tissue Removed: Slough and devitalized tissue Severity: Fat Layer Exposed Amount of bleeding with debridement: Mild Bleeding Controlled with: Pressure Patient tolerated procedure: Patient tolerated procedure well Post-Debridement Measurements and Additional Note: Post-Debridement Measurements/Treatment WC - Nurse 1 - General Ulcer Assessment Start: 10/05/22 08:49 Freq: Status: Active Protocol: WILLIAM Activity Type Activity Date Activity User E-sign Co-sign Detail Recorded Client Recorded Date Recorded By Document 10/05/22 09:08 [facility] [id number] 10/05/22 09:37 [facility] 10/05/22 09:08 WC - Today's Visit Information Type of service 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 ) Arrival Mode Ambulatory Transfer Assistance None Patient Identification Verified (Name & Yes ) Patient Requires Transmission-Based No Precautions Height and Weight Height 5 ft 11 in Weight 340 lb Weight in Pounds 340.0 lbs Weight Measurement Method Estimated by Patient Body Mass Index (BMI) 47.4 BMI Classification Obese BSA - Mark 2.64 Vital Signs Temperature (97.8 F-99.1 F) 97.9 F Temperature Source Temporal Respiratory Rate (12-18) 16 Respiratory rate source Observation Oxygen Delivery Method Room Air Blood Pressure (90/60-120/80) 138/98 H Blood Pressure Mean 111 Source Monitor Position Sitting Blood Pressure Location Left Forearm History Since Last Visit- (Skip if this is Patient's initial visit) Left Footwear Surgical Shoe with pressure relief insole Right Footwear Surgical Shoe with pressure relief insole Pain Scale: 0-10 Numeric Is Patient Pain Free? Yes Lower Extremity Assessment/ Foot Assessment/ Toe Nail Assessment Right -Lower Extremity Comment (If N/A Above SEVERE ) LYMPHEDEMA, DRY SCALY SKIN -Posterior Tibial Palpable No -Posterior Tibial Doppler Multiphasic -Dorsalis Pedis Palpable No -Dorsalis Pedis Doppler Multiphasic -Extremity Color Hyperpigmented -Hair Growth on Legs No -Hair Growth on Toes No -Temperature of Extremity Warm -Thick Yes -Discolored Yes -Deformed No -Improper Length & Hygeine Yes Left -Lower Extremity Comment (If N/A Above LYMPHEDEMA ) SEVERE UNABLE TO ASSESS POST TIB D/T THICK SCALY SKIN -Dorsalis Pedis Palpable No -Dorsalis Pedis Doppler Monophasic -Extremity Color Hyperpigmented -Hair Growth on Legs No -Hair Growth on Toes No -Temperature of Extremity Warm -Thick Yes -Discolored Yes -Deformed No -Improper Length & Hygeine Yes Communication Assessment Preferred language Malaysian 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 Able to Read Yes Able to Write Yes Communication Tools None Right Hearing Abillity Normal Left Hearing Abillity Normal Visual Assistive Devices None Teaching Assessment Preferences Verbal,Written, Audio/Visual, Demonstration Barriers to Learning None Readiness To Learn Excellent Willingness to Engage in Self Management High Activies Readiness to Engage in Self Management High Activities Anxiety Level Calm Cooperation Cooperative Perception Coherent Interest in Health Problem Asks Questions Education Importance Acknowledges Need Does Patient Smoke tobacco or other No substances Smoking Status Former smoker Is Patient Diabetic No Functional Assessment Recent Decline in Ability to Perform Denies Any Declines 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 Cultural/Orthodoxy Needs that may affect No Treatment Plan WC - Nurse 1 - General Ulcer Measurement Start: 10/05/22 08:49 Freq: Status: Active Protocol: Activity Type Activity Date Activity User E-sign Co-sign Detail Recorded Client Recorded Date Recorded By Document 10/05/22 09:08 [facility] [id number] 10/05/22 09:37 [facility] 10/05/22 09:08 Wound Center Nurse 1 #7 R HEEL -Combined with other wound No -Current Size (cm) - Length 1 -Current Size (cm) - Width 1.5 -Current Size (cm) - Depth 0.1 -Total Square Cm 1.5 -Date of Last Picture (Recall this 10/05/22 field) -Photo Taken Yes -Epithelialization None Present -Tunneling No -Undermining/Tunneling No -Circular Undermining No -Exudate Amt Medium -Exudate Type Serosanguineous -Wound Margin Distinct, Outline Attached -Granulation Amt Medium (34-66%) -Granulation Quality Red -Slough/Fibrin Yes -Necrosis Amt Medium (34-66%) -Necrotic Tissue Type Adherent Slough -Texture (Marva-wound Skin Appearance) Assessed, Scarring -Moisture (Marva-wound Skin Appearance) Assessed,Dry/ Scaly -Color (Marva-wound Skin Appearance) Assessed -Temperature (Marva-wound Skin No Abnormality Appearance) (Pt Warm) -Tenderness on Palpation (Marva-wound No Skin Appearance) -Ulcer Cleansing Soap and Water -Foul Odor after Cleansing No -Anesthetic Used 4% Lidocaine Solution #6- R LAT ANKLE cluster -Combined with other wound No -Current Size (cm) - Length 3.5 -Current Size (cm) - Width 2.8 -Current Size (cm) - Depth 0.2 -Total Square Cm 9.80 -Date of Last Picture (Recall this 10/05/22 field) -Photo Taken Yes -Epithelialization None Present -Tunneling No -Undermining/Tunneling No -Circular Undermining No -Exudate Amt Medium -Exudate Type Serous -Wound Margin Distinct, Outline Attached -Granulation Amt None Present (0 %) -Slough/Fibrin Yes -Necrosis Amt Large (67-100%) -Necrotic Tissue Type Adherent Slough -Texture (Marva-wound Skin Appearance) Assessed -Moisture (Marva-wound Skin Appearance) Assessed, Weeping -Color (Marva-wound Skin Appearance) Assessed -Temperature (Marva-wound Skin No Abnormality Appearance) (Pt Warm) -Tenderness on Palpation (Marva-wound No Skin Appearance) -Ulcer Cleansing Soap and Water -Foul Odor after Cleansing No -Anesthetic Used 4% Lidocaine Solution #5- L LAT POST LEG -Combined with other wound No -Current Size (cm) - Length 0.5 -Current Size (cm) - Width 0.6 -Current Size (cm) - Depth 0.1 -Total Square Cm 0.30 -Date of Last Picture (Recall this 10/05/22 field) -Photo Taken Yes -Epithelialization None Present -Tunneling No -Undermining/Tunneling No -Circular Undermining No -Exudate Amt Small -Exudate Type Serosanguineous -Wound Margin Distinct, Outline Attached -Granulation Amt Medium (34-66%) -Granulation Quality Red -Slough/Fibrin Yes -Necrosis Amt Medium (34-66%) -Necrotic Tissue Type Adherent Slough -Texture (Marva-wound Skin Appearance) Assessed, Scarring -Moisture (Marva-wound Skin Appearance) Assessed,Dry/ Scaly -Color (Marva-wound Skin Appearance) Assessed -Temperature (Marva-wound Skin No Abnormality Appearance) (Pt Warm) -Tenderness on Palpation (Marva-wound No Skin Appearance) -Ulcer Cleansing Soap and Water -Foul Odor after Cleansing No -Anesthetic Used 4% Lidocaine Solution #4- L POST LE -Combined with other wound No -Current Size (cm) - Length 3.5 -Current Size (cm) - Width 3.5 -Current Size (cm) - Depth 0.1 -Total Square Cm 12.25 -Date of Last Picture (Recall this 10/05/22 field) -Photo Taken Yes -Epithelialization None Present -Tunneling No -Undermining/Tunneling No -Circular Undermining No -Exudate Amt Medium -Exudate Type Serosanguineous -Wound Margin Distinct, Outline Attached -Granulation Amt Medium (34-66%) -Granulation Quality Red -Slough/Fibrin Yes -Necrosis Amt Medium (34-66%) -Necrotic Tissue Type Adherent Slough -Texture (Marva-wound Skin Appearance) Assessed, Scarring -Moisture (Marva-wound Skin Appearance) Assessed,Dry/ Scaly -Color (Marva-wound Skin Appearance) Assessed -Temperature (Marva-wound Skin No Abnormality Appearance) (Pt Warm) -Tenderness on Palpation (Marva-wound No Skin Appearance) -Ulcer Cleansing Soap and Water -Foul Odor after Cleansing No -Anesthetic Used 4% Lidocaine Solution ##- L LAT ANKLE/FOOT -Combined with other wound No -Current Size (cm) - Length 1.1 -Current Size (cm) - Width 2.1 -Current Size (cm) - Depth 0.1 -Total Square Cm 2.31 -Date of Last Picture (Recall this 10/05/22 field) -Photo Taken Yes -Epithelialization None Present -Tunneling No -Undermining/Tunneling No -Exudate Amt None Present -Wound Margin Distinct, Outline Attached -Granulation Amt Large (67-100%) -Granulation Quality Red -Slough/Fibrin No -Necrosis Amt None Present (0 %) -Texture (Marva-wound Skin Appearance) Assessed, Scarring -Moisture (Mavra-wound Skin Appearance) Assessed,Dry/ Scaly -Color (Marva-wound Skin Appearance) Assessed, Hemosiderin Staining -Temperature (Marva-wound Skin No Abnormality Appearance) (Pt Warm) -Tenderness on Palpation (Marva-wound No Skin Appearance) -Ulcer Cleansing Soap and Water -Foul Odor after Cleansing No -Anesthetic Used 4% Lidocaine Solution Lower Limb Edema Present Yes Right Calf (cm) 59.7 Right Ankle (cm) 39.6 Left Calf (cm) 64 Left Ankle (cm) 40 WC - Nurse 2 - General Ulcer CM Notes Start: 10/05/22 08:49 Freq: Status: Active Protocol: Activity Type Activity Date Activity User E-sign Co-sign Detail Recorded Client Recorded Date Recorded By Document 10/05/22 09:58 MW [id number] 10/05/22 10:18 MW 10/05/22 09:58 Wound Center Nurse 2 #7 R HEEL -Time 09:59 -Correct Patient Yes -Correct Side, Site, Position Yes -Correct Procedure Yes -Procedure Performed No -Tunneling No -Undermining/Tunneling No -Circular Undermining No -Wound/Ulcer Outcome Converted #6- R LAT ANKLE cluster -Time 09:59 -Correct Patient Yes -Correct Side, Site, Position Yes -Correct Procedure Yes -Procedure Performed Yes -Type of Procedure Debridement -Clinical Debridement Subcutaneous -Tissue Removed Subcutaneous -Post Debridement (cm) - Length 5.0 -Post Debridement (cm) - Width 9.0 -Post Debridement (cm) - Depth 0.2 -Total Square (Post) (cm) 45.00 -Area of Debridement (cm) - Length 5.0 -Area of Debridement (cm) - Width 9.0 -Total Square (Area) (cm) 45.00 -Tunneling No -Undermining/Tunneling No -Circular Undermining No -Wound/Ulcer Outcome Not Healed -Ulcer Cleansing Rinsed/ Irrigated with Saline -Foul Odor after Cleansing No -Bioengineered Tissue No -Bleeding Controlled with Pressure -Treatment Response Procedure Tolerated Well -Offloading No -Debridement - Subq, 1st 20sq cm Yes -Debridement, SubQ, ea addt'l 20sq cm 4 or part thereof #5- L LAT POST LEG -Time 10:00 -Correct Patient Yes -Correct Side, Site, Position Yes -Correct Procedure Yes -Procedure Performed Yes -Type of Procedure Debridement -Clinical Debridement Subcutaneous -Tissue Removed Subcutaneous -Post Debridement (cm) - Length 1.3 -Post Debridement (cm) - Width 2.7 -Post Debridement (cm) - Depth 0.1 -Total Square (Post) (cm) 3.51 -Area of Debridement (cm) - Length 1.3 -Area of Debridement (cm) - Width 2.7 -Total Square (Area) (cm) 3.51 -Tunneling No -Undermining/Tunneling No -Circular Undermining No -Wound/Ulcer Outcome Not Healed -Ulcer Cleansing Rinsed/ Irrigated with Saline -Foul Odor after Cleansing No -Bioengineered Tissue No -Bleeding Controlled with Pressure -Treatment Response Procedure Tolerated Well -Offloading No -Debridement - Subq, 1st 20sq cm No #4- L POST LE -Time 10:00 -Correct Patient Yes -Correct Side, Site, Position Yes -Correct Procedure Yes -Procedure Performed Yes -Type of Procedure Debridement -Clinical Debridement Subcutaneous -Tissue Removed Subcutaneous -Post Debridement (cm) - Length 7.0 -Post Debridement (cm) - Width 5.5 -Post Debridement (cm) - Depth 0.1 -Total Square (Post) (cm) 38.50 -Area of Debridement (cm) - Length 7.0 -Area of Debridement (cm) - Width 5.5 -Total Square (Area) (cm) 38.50 -Tunneling No -Undermining/Tunneling No -Circular Undermining No -Wound/Ulcer Outcome Not Healed -Ulcer Cleansing Rinsed/ Irrigated with Saline -Foul Odor after Cleansing No -Bioengineered Tissue No -Bleeding Controlled with Pressure -Treatment Response Procedure Tolerated Well -Offloading No -Debridement - Subq, 1st 20sq cm No ##- L LAT ANKLE/FOOT -Time 10:01 -Correct Patient Yes -Correct Side, Site, Position Yes -Correct Procedure Yes -Procedure Performed Yes -Type of Procedure Debridement -Clinical Debridement Subcutaneous -Tissue Removed Subcutaneous -Post Debridement (cm) - Length 0.9 -Post Debridement (cm) - Width 2.1 -Post Debridement (cm) - Depth 0.1 -Total Square (Post) (cm) 1.89 -Area of Debridement (cm) - Length 0.9 -Area of Debridement (cm) - Width 2.1 -Total Square (Area) (cm) 1.89 -Tunneling No -Undermining/Tunneling No -Circular Undermining No -Wound/Ulcer Outcome Not Healed -Ulcer Cleansing Rinsed/ Irrigated with Saline -Foul Odor after Cleansing No -Bioengineered Tissue No -Bleeding Controlled with Pressure -Treatment Response Procedure Tolerated Well -Offloading No -Debridement - Subq, 1st 20sq cm No Pain Scale: 0-10 Numeric Is Patient Pain Free? Yes WC - Nurse 3 - General Ulcer D/C NN Start: 10/05/22 08:49 Freq: Status: Active Protocol: Activity Type Activity Date Activity User E-sign Co-sign Detail Recorded Client Recorded Date Recorded By Document 10/05/22 10:21 DL [id number] 10/05/22 10:23 DL 10/05/22 10:21 Wound Care Center Nurse 3 #6- R LAT ANKLE cluster -Ulcer Cleansing Soap and Water -Foul Odor after Cleansing No -Primary Dressing Applied Aquacel Extra -Aquacel Extra 1 #5- L LAT POST LEG -Ulcer Cleansing Soap and Water -Foul Odor after Cleansing No -Primary Dressing Applied Aquacel Extra -Aquacel Extra 1 #4- L POST LE -Ulcer Cleansing Soap and Water -Foul Odor after Cleansing No -Other Dressing aquacel EX ##- L LAT ANKLE/FOOT -Ulcer Cleansing Soap and Water -Foul Odor after Cleansing No -Other Dressing aquacel Ex claus -Multi-Layered Wrap Application Unna Boot - Bilateral ($) Treatment Response Procedure Tolerated Well Pain Scale: 0-10 Numeric Is Patient Pain Free? Yes WC - Visit Discharge Discharge Condition Stable Ambulatory Status Ambulatory Additional Wound Wound debrided: Left lower extremity (posterior) Anesthesia Used: 4% Lidocaine Solution Depth: Down to and including healthy tissue and in the subcutaneous layer Percentage of wound debrided: 100 Instrument Used: 5mm curette Tissue Removed: Slough and devitalized tissue Severity: Fat Layer Exposed Amount of bleeding with debridement: Mild Bleeding Controlled with: Pressure Patient tolerated procedure: Patient tolerated procedure well Additional Wound Wound debrided: Right heel cluster Type of Debridement: Excisional debridement Anesthesia Used: 5% Lidocaine Gel Depth: Down to and including healthy tissue and in the subcutaneous layer Percentage of wound debrided: 100 Instrument Used: 5mm curette Tissue Removed: Slough and devitalized tissue Severity: Fat Layer Exposed Amount of bleeding with debridement: Mild Bleeding Controlled with: Pressure Patient tolerated procedure: Patient tolerated procedure well Additional Wound Wound debrided: Left Foot ( lateral ) Type of Debridement: Excisional debridement Anesthesia Used: 4% Lidocaine Solution Depth: Down to and including healthy tissue and in the subcutaneous layer Percentage of wound debrided: 100 Instrument Used: 5mm curette Tissue Removed: Slough and devitalized tissue Charges/Coding Visit Charges Office Visits / Consults: [id number] OV L4 New Procedures Integumentary [id number]: [id number] Magdalena subq tissue 20 sq cm/< Add On Codes: 32260 Magdalena subq tissue add-on (x4. Additional square centimeter debrided, please refer to clinical note.) Assessment/Plan Assessment/Plan (1) Ulcer of left lower extremity with fat layer exposed: CODE(S): L97.922 - Non-pressure 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 layer exposed (2) Ulcer of right lower extremity with fat layer exposed: CODE(S): L97.912 - Non-pressure chronic ulcer of unspecified part of right lower leg with fat layer exposed (3) Lymphedema: CODE(S): I89.0 - Lymphedema, not elsewhere classified (4) Homeless single person: CODE(S): Z59.0 - Homelessness PLAN: Plan Debridement done as documented above, procedure was well-tolerated. No culture was taken today, currently on antibiotics. Reassess need for culture at next visit. He is currently homeless and living out of his car, there will be difficulty getting wound supplies over to him. At his previous visits, he had done well with an Unna boot. Aquacel to open areas and Unna boot to both lower extremities. Come in on Sunday for nurse visit/change. Leg elevation, exercise as tolerated discussed, he voiced understanding. Total protein intake also recommended. His questions were answered and he was advised to call with any further questions or concerns. Follow-up with me in a week. This note was generated with [employer] dictation software. It may contain incorrect words, spelling, and punctuation that were not noted in checking the note before signing.
[2022-10-10 09:53] VITALS: BP 119/76; PULSE 102; RESP 18; TEMP 36.2; BMI 47.4
== END 2022-10-11 23:59 | disposition home or self-care (01) ==
LOC: WC 09:00
PROVIDERS: Visit Provider Internal Medicine
DX: L97.822 Non-pressure chronic ulcer of other part of left lower leg with fat layer exposed (principal); L97.529 Non-pressure chronic ulcer of other part of left foot with unspecified severity; L97.412 Non-pressure chronic ulcer of right heel and midfoot with fat layer exposed; Z59.00 Homelessness unspecified; R60.0 Localized edema; I89.0 Lymphedema, not elsewhere classified; Z87.891 Personal history of nicotine dependence; Z79.899 Other long term (current) drug therapy
CPT/HCPCS: 11042; 11045; 29580; 99213; G0463

== ENCOUNTER 2022-11-02 09:15 | Outpatient (RCR) | payer MEDICARE, MEDICAID, SELFPAY ==
[2022-10-12 00:48] VITALS: BP 119/76; PULSE 102; RESP 18; TEMP 36.2; BMI 47.4
[2022-10-12 08:59] VITALS: BP 140/69; PULSE 94; RESP 16; TEMP 36.4; BMI 47.4
--- NOTE | 2022-10-12 10:36 | PCM.WC.PN ---
History of Present Illness Date of Service: 10/12/22 Chief Complaint: Bilateral lower extremity ulcers. History of Wound: Mr. Beltran is a 67 yo who was referred to the wound center due to bilateral lower extremity ulcer. Clinic history of lymphedema. He is currently homeless and has been living in his van. He states that over the recent months, he has been sitting a lot more is not as active as it should be. He also states that he has not been using his compression. Recently seen at the emergency room due to concern for feeling unwell, he was started on antibiotics and has 1 more day of it. Tolerating antibiotic well. Initially had a lot of drainage from his ulcers but he states that this has improved. No known history of diabetes. No chills, fever or feeling of unwell at this time. Progress of Wound: New right second toe ulcer but otherwise, previous ulcers have significantly improved. Edema has improved as well. Tolerated Unna boots well. Objective Data Objective Data Vital Signs: Vital Signs Temp Pulse Resp BP O2 Del Method 97.6 F L 94 16 140/69 H Room Air 10/12/22 08:59 10/12/22 08:59 10/12/22 08:59 10/12/22 08:59 10/12/22 08:59 Oxygen Delivery Method Room Air Weight: 340 lb Body Mass Index (BMI) 47.4 Charges/Coding Procedures Integumentary 111xxx-113xx: 39536 Magdalena subq tissue 20 sq cm/< Add On Codes: 57947 Magdalena subq tissue add-on (x3. Additional square centimeter debrided, please refer to clinical note) Physical Exam Const alert, oriented x3 and no apparent distress General Appearance: cooperative and comfortable HEENT normocephalic, head/scalp atraumatic and hearing grossly normal bilaterally Eyes EOMs intact bilaterally Neck full ROM Resp normal respiratory effort Effort and Inspection: able to speak in complete sentences Extremity General Extremity: edema Skin Wounds: wounds noted Neuro oriented x3, CN's II-XII intact bilaterally and moves all extremities Psych mental status grossly normal, thought process normal, cooperative and affect normal Debridement Note Debridement Note Wound debrided: Right second toe Type of Debridement: Excisional debridement Anesthesia Used: 5% Lidocaine Gel Depth: Down to and including healthy tissue and in the subcutaneous layer Percentage of wound debrided: 100 Instrument Used: 3mm curette Tissue Removed: Slough and devitalized tissue Severity: Fat Layer Exposed Amount of bleeding with debridement: Mild Bleeding Controlled with: Pressure Patient tolerated procedure: Patient tolerated procedure well Post-Debridement Measurements and Additional Note: Post-Debridement Measurements/Treatment - Nurse 1 - General Ulcer Assessment Start: 10/12/22 08:59 Freq: Status: Active Protocol: WILLIAM Activity Type Activity Date Activity User E-sign Co-sign Detail Recorded Client Recorded Date Recorded By Document 10/12/22 08:59 [facility] [id number] 10/12/22 09:18 [facility] 10/12/22 08:59 WC - Today's Visit Information Type of service Follow-up Visit (Physician/RN FIRST ASSIST ) Arrival Mode Ambulatory Transfer Assistance None Patient Identification Verified (Name & Yes ) Patient Requires Transmission-Based No Precautions Height and Weight Body Mass Index (BMI) 47.4 BMI Classification Obese Vital Signs Temperature (97.8 F-99.1 F) 97.6 F L Temperature Source Temporal Pulse Rate (60-100) 94 Pulse Location Monitor Respiratory Rate (12-18) 16 Respiratory rate source Observation Oxygen Delivery Method Room Air Blood Pressure (90/60-120/80) 140/69 H Blood Pressure Mean (mm Hg) 92 Source Monitor Position Sitting Blood Pressure Location Right Arm History Since Last Visit- (Skip if this is Patient's initial visit) Have you changed medications since your No last visit? Any new allergies or adverse reactions No Had a fall/change in ADL's that may No increase risk of falls Signs or symptoms of abuse and/or No neglect since last visit Have you been in the hospital since your No last visit? Has dressing in place as prescribed Yes Has compression in place as prescribed Yes Has offloadiing in place as prescribed N/A Experienced any changes in pain level or No management Left Footwear Surgical Shoe with pressure relief insole Right Footwear Surgical Shoe with pressure relief insole Pain Scale: 0-10 Numeric Is Patient Pain Free? Yes [facility] Nurse 1 - General Ulcer Measurement Start: 10/12/22 08:59 Freq: Status: Active Protocol: Activity Type Activity Date Activity User E-sign Co-sign Detail Recorded Client Recorded Date Recorded By Document 10/12/22 08:59 [facility] [id number] 10/12/22 09:18 [facility] 10/12/22 08:59 Wound Center Nurse 1 #5- L LAT POST LEG -Combined with other wound No -Current Size (cm) - Length 0.1 -Current Size (cm) - Width 0.1 -Current Size (cm) - Depth 0.1 -Total Square Cm 0.01 -Date of Last Picture (Recall this 10/12/22 field) -Photo Taken Yes -Epithelialization Large 67-100% -Tunneling No -Undermining/Tunneling No -Circular Undermining No -Exudate Amt None Present -Texture (Marva-wound Skin Appearance) Assessed, Scarring -Moisture (Marva-wound Skin Appearance) Assessed,Dry/ Scaly -Color (Marva-wound Skin Appearance) Assessed -Ulcer Cleansing Soap and Water -Foul Odor after Cleansing No #3- L LAT ANKLE/FOOT -Combined with other wound No -Current Size (cm) - Length 0.1 -Current Size (cm) - Width 0.1 -Current Size (cm) - Depth 0.1 -Total Square Cm 0.01 -Date of Last Picture (Recall this 10/12/22 field) -Photo Taken Yes -Epithelialization Large 67-100% -Texture (Marva-wound Skin Appearance) Assessed -Moisture (Marva-wound Skin Appearance) Assessed -Color (Marva-wound Skin Appearance) Assessed -Temperature (Marva-wound Skin No Abnormality Appearance) (Pt Warm) -Tenderness on Palpation (Marva-wound No Skin Appearance) -Ulcer Cleansing Soap and Water -Foul Odor after Cleansing No #8- r 2nd toe -Combined with other wound No -Current Size (cm) - Length 0.5 -Current Size (cm) - Width 0.5 -Current Size (cm) - Depth 0.2 -Total Square Cm 0.25 -Date of Last Picture (Recall this 10/12/22 field) -Photo Taken Yes -Epithelialization None Present -Tunneling No -Undermining/Tunneling No -Circular Undermining No -Exudate Amt Small -Exudate Type Serosanguineous -Wound Margin Distinct, Outline Attached -Granulation Amt Small (1-33%) -Granulation Quality Red -Slough/Fibrin Yes -Necrosis Amt Large (67-100%) -Necrotic Tissue Type Adherent Slough -Texture (Marva-wound Skin Appearance) Assessed, Scarring -Moisture (Marva-wound Skin Appearance) Assessed -Color (Marva-wound Skin Appearance) Assessed, Erythema -Temperature (Marva-wound Skin No Abnormality Appearance) (Pt Warm) -Tenderness on Palpation (Marva-wound No Skin Appearance) -Ulcer Cleansing Soap and Water -Foul Odor after Cleansing No -Anesthetic Used 5% Lidocaine Gel #6- R LAT ANKLE cluster -Combined with other wound No -Current Size (cm) - Length 3 -Current Size (cm) - Width 7 -Current Size (cm) - Depth 0.1 -Total Square Cm 21 -Date of Last Picture (Recall this 10/12/22 field) -Photo Taken Yes -Epithelialization Small 1-33% -Tunneling No -Undermining/Tunneling No -Circular Undermining No -Exudate Amt Medium -Exudate Type Serosanguineous -Wound Margin Distinct, Outline Attached -Granulation Amt Medium (34-66%) -Slough/Fibrin Yes -Necrosis Amt Medium (34-66%) -Necrotic Tissue Type Adherent Slough -Texture (Marva-wound Skin Appearance) Assessed, Scarring -Moisture (Marva-wound Skin Appearance) Assessed -Color (Marva-wound Skin Appearance) Assessed, Hemosiderin Staining -Temperature (Marva-wound Skin No Abnormality Appearance) (Pt Warm) -Tenderness on Palpation (Marva-wound No Skin Appearance) -Ulcer Cleansing Soap and Water -Foul Odor after Cleansing No -Anesthetic Used 5% Lidocaine Gel #4- L POST LE -Combined with other wound No -Current Size (cm) - Length 0.2 -Current Size (cm) - Width 0.2 -Current Size (cm) - Depth 0.1 -Total Square Cm 0.04 -Date of Last Picture (Recall this 10/12/22 field) -Photo Taken Yes -Epithelialization Medium 34-66% -Tunneling No -Undermining/Tunneling No -Circular Undermining No -Exudate Amt Small -Exudate Type Serosanguineous -Wound Margin Distinct, Outline Attached -Granulation Amt Large (67-100%) -Granulation Quality Red -Slough/Fibrin Yes -Necrosis Amt Small (1-33%) -Necrotic Tissue Type Adherent Slough -Texture (Marva-wound Skin Appearance) Assessed, Scarring -Moisture (Marva-wound Skin Appearance) Assessed,Dry/ Scaly -Color (Marva-wound Skin Appearance) Assessed -Temperature (Marva-wound Skin No Abnormality Appearance) (Pt Warm) -Tenderness on Palpation (Marva-wound No Skin Appearance) -Ulcer Cleansing Soap and Water -Foul Odor after Cleansing No -Anesthetic Used 5% Lidocaine Gel WC - Nurse 2 - General Ulcer CM Notes Start: 10/12/22 08:59 Freq: Status: Active Protocol: Activity Type Activity Date Activity User E-sign Co-sign Detail Recorded Client Recorded Date Recorded By Document 10/12/22 09:31 MW [id number] 10/12/22 09:48 MW 10/12/22 09:31 Wound Center Nurse 2 #5- L LAT POST LEG -Time 09:33 -Correct Patient Yes -Correct Side, Site, Position Yes -Correct Procedure Yes -Procedure Performed No -Post Debridement (cm) - Length 0 -Post Debridement (cm) - Width 0 -Total Square (Post) (cm) 0 -Tunneling No -Undermining/Tunneling No -Circular Undermining No -Wound/Ulcer Outcome Healed- Epithelialized #3- L LAT ANKLE/FOOT -Time 09:35 -Correct Patient Yes -Correct Side, Site, Position Yes -Correct Procedure Yes -Procedure Performed No -Post Debridement (cm) - Length 0 -Post Debridement (cm) - Width 0 -Post Debridement (cm) - Depth 0 -Total Square (Post) (cm) 0 -Tunneling No -Undermining/Tunneling No -Circular Undermining No -Wound/Ulcer Outcome Healed- Epithelialized -Bleeding Controlled with Pressure,Silver Nitrate #8- r 2nd toe -Time 09:32 -Correct Patient Yes -Correct Side, Site, Position Yes -Correct Procedure Yes -Procedure Performed Yes -Type of Procedure Debridement -Clinical Debridement Subcutaneous -Tissue Removed Subcutaneous -Post Debridement (cm) - Length 0.8 -Post Debridement (cm) - Width 0.2 -Post Debridement (cm) - Depth 0.1 -Total Square (Post) (cm) 0.16 -Area of Debridement (cm) - Length 0.8 -Area of Debridement (cm) - Width 0.2 -Total Square (Area) (cm) 0.16 -Tunneling No -Undermining/Tunneling No -Circular Undermining No -Wound/Ulcer Outcome Not Healed -Ulcer Cleansing Rinsed/ Irrigated with Saline -Foul Odor after Cleansing No -Bioengineered Tissue No -Bleeding Controlled with Pressure -Treatment Response Procedure Tolerated Well -Offloading No -Debridement - Subq, 1st 20sq cm Yes -Debridement, SubQ, ea addt'l 20sq cm 3 or part thereof #6- R LAT ANKLE cluster -Time 09:33 -Correct Patient Yes -Correct Side, Site, Position Yes -Correct Procedure Yes -Procedure Performed Yes -Type of Procedure Debridement -Clinical Debridement Subcutaneous -Tissue Removed Subcutaneous -Post Debridement (cm) - Length 3.5 -Post Debridement (cm) - Width 8.0 -Post Debridement (cm) - Depth 0.1 -Total Square (Post) (cm) 28.00 -Area of Debridement (cm) - Length 3.5 -Area of Debridement (cm) - Width 8.0 -Total Square (Area) (cm) 28.00 -Tunneling No -Undermining/Tunneling No -Circular Undermining No -Wound/Ulcer Outcome Not Healed -Ulcer Cleansing Rinsed/ Irrigated with Saline -Foul Odor after Cleansing No -Bioengineered Tissue No -Bleeding Controlled with Pressure,Silver Nitrate -Treatment Response Procedure Tolerated Well -Offloading No -Debridement - Subq, 1st 20sq cm No #4- L POST LE -Time 09:34 -Correct Patient Yes -Correct Side, Site, Position Yes -Correct Procedure Yes -Procedure Performed Yes -Type of Procedure Debridement -Clinical Debridement Subcutaneous -Tissue Removed Subcutaneous -Post Debridement (cm) - Length 5.5 -Post Debridement (cm) - Width 4.0 -Post Debridement (cm) - Depth 0.1 -Total Square (Post) (cm) 22.00 -Area of Debridement (cm) - Length 5.5 -Area of Debridement (cm) - Width 4.0 -Total Square (Area) (cm) 22.00 -Tunneling No -Undermining/Tunneling No -Circular Undermining No -Wound/Ulcer Outcome Not Healed -Ulcer Cleansing Rinsed/ Irrigated with Saline -Foul Odor after Cleansing No -Bioengineered Tissue No -Bleeding Controlled with Pressure -Treatment Response Procedure Tolerated Well -Offloading No -Debridement - Subq, 1st 20sq cm No Pain Scale: 0-10 Numeric Is Patient Pain Free? Yes WC - Nurse 3 - General Ulcer D/C NN Start: 10/12/22 08:59 Freq: Status: Active Protocol: Activity Type Activity Date Activity User E-sign Co-sign Detail Recorded Client Recorded Date Recorded By Document 10/12/22 10:13 [facility] [id number] 10/12/22 10:15 [facility] 10/12/22 10:13 Wound Care Center Nurse 3 #8- r 2nd toe -Ulcer Cleansing Soap and Water -Foul Odor after Cleansing No -Primary Dressing Applied Aquacel Extra -Primary Dressing Covered/Secured with Dry Gauze, Secured with Tape -Aquacel Extra 0 #6- R LAT ANKLE cluster -Ulcer Cleansing Rinsed/ Irrigated with Saline -Foul Odor after Cleansing No -Primary Dressing Applied Aquacel Extra -Other Dressing unna -Aquacel Extra 1 #4- L POST LE -Ulcer Cleansing Rinsed/ Irrigated with Saline -Foul Odor after Cleansing No -Primary Dressing Applied Aquacel Extra -Other Dressing unna -Aquacel Extra 0 ble -Multi-Layered Wrap Application Unna Boot - Bilateral ($) Treatment Response Procedure Tolerated Well Pain Scale: 0-10 Numeric Is Patient Pain Free? Yes WC - Visit Discharge Discharge Condition Stable Ambulatory Status Ambulatory Transportation Private Auto Additional Wound Wound debrided: Left lower extremity (posterior) Anesthesia Used: 4% Lidocaine Solution Depth: Down to and including healthy tissue and in the subcutaneous layer Percentage of wound debrided: 100 Instrument Used: 5mm curette Tissue Removed: Slough and devitalized tissue Severity: Fat Layer Exposed Amount of bleeding with debridement: Mild Bleeding Controlled with: Pressure Patient tolerated procedure: Patient tolerated procedure well Additional Wound Wound debrided: Right heel cluster Type of Debridement: Excisional debridement Anesthesia Used: 5% Lidocaine Gel Depth: Down to and including healthy tissue and in the subcutaneous layer Percentage of wound debrided: 100 Instrument Used: 5mm curette Tissue Removed: Slough and devitalized tissue Severity: Fat Layer Exposed Amount of bleeding with debridement: Mild Bleeding Controlled with: Pressure Patient tolerated procedure: Patient tolerated procedure well Assessment/Plan Assessment/Plan (1) Ulcer of left lower extremity with fat layer exposed: CODE(S): L97.922 - Non-pressure 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 layer exposed (2) Ulcer of right lower extremity with fat layer exposed: CODE(S): L97.912 - Non-pressure chronic ulcer of unspecified part of right lower leg with fat layer exposed (3) Lymphedema: CODE(S): I89.0 - Lymphedema, not elsewhere classified (4) Homeless single person: CODE(S): Z59.0 - Homelessness PLAN: Plan Debridement done as documented above, procedure was well-tolerated. New right second toe ulcer but otherwise, previous ulcers have improved. Edema has improved as well. Continue Aquacel to open areas and Unna boot to both lower extremities. Come in on Sunday for nurse visit/change. Leg elevation, exercise as tolerated discussed, he voiced understanding. Total protein intake also recommended. His questions were answered and he was advised to call with any further questions or concerns. Follow-up with me in a week. This note was generated with [employer] dictation software. It may contain incorrect words, spelling, and punctuation that were not noted in checking the note before signing.
[2022-10-16 08:51] VITALS: BP 137/100; PULSE 91; RESP 20; TEMP 522.7; TEMP 973; BMI 47.4
[2022-10-19 09:22] VITALS: BP 134/73; PULSE 85; RESP 18; TEMP 36.4; BMI 47.4
--- NOTE | 2022-10-19 12:54 | PCM.WC.PN ---
History of Present Illness Date of Service: 10/19/22 Chief Complaint: Bilateral lower extremity ulcers. History of Wound: Mr. Beltran is a 67 yo who was referred to the wound center due to bilateral lower extremity ulcer. Clinic history of lymphedema. He is currently homeless and has been living in his van. He states that over the recent months, he has been sitting a lot more is not as active as it should be. He also states that he has not been using his compression. Recently seen at the emergency room due to concern for feeling unwell, he was started on antibiotics and has 1 more day of it. Tolerating antibiotic well. Initially had a lot of drainage from his ulcers but he states that this has improved. No known history of diabetes. No chills, fever or feeling of unwell at this time. Progress of Wound: Tolerating Unna boot well. Improvement noted. Objective Data Objective Data Vital Signs: Vital Signs Temp Pulse Resp BP O2 Del Method 97.5 F L 85 18 134/73 H Room Air 10/19/22 09:22 10/19/22 09:22 10/19/22 09:22 10/19/22 09:22 10/19/22 09:22 Oxygen Delivery Method Room Air Weight: 340 lb Body Mass Index (BMI) 47.4 Charges/Coding Procedures Integumentary 111xxx-113xx: 74295 Magdalena subq tissue 20 sq cm/< Add On Codes: 71780 Magdalena subq tissue add-on (x3. Additional square centimeter debrided, please refer to clinical note.) Physical Exam Const alert, oriented x3 and no apparent distress General Appearance: cooperative and comfortable HEENT normocephalic, head/scalp atraumatic and hearing grossly normal bilaterally Eyes EOMs intact bilaterally Neck full ROM Resp normal respiratory effort Effort and Inspection: able to speak in complete sentences Extremity General Extremity: edema Skin Wounds: wounds noted Neuro oriented x3, CN's II-XII intact bilaterally and moves all extremities Psych mental status grossly normal, thought process normal, cooperative and affect normal Debridement Note Debridement Note Wound debrided: Right second toe Type of Debridement: Excisional debridement Anesthesia Used: 5% Lidocaine Gel Depth: Down to and including healthy tissue and in the subcutaneous layer Percentage of wound debrided: 100 Instrument Used: 3mm curette Tissue Removed: Slough and devitalized tissue Severity: Fat Layer Exposed Amount of bleeding with debridement: Mild Bleeding Controlled with: Pressure Patient tolerated procedure: Patient tolerated procedure well Post-Debridement Measurements and Additional Note: Post-Debridement Measurements/Treatment - Nurse 1 - General Ulcer Assessment Start: 10/12/22 08:59 Freq: Status: Active Protocol: WILLIAM Activity Type Activity Date Activity User E-sign Co-sign Detail Recorded Client Recorded Date Recorded By Document 10/12/22 08:59 BM [id number] 10/12/22 09:18 BMF Document 10/16/22 08:51 DL [id number] 10/16/22 08:55 DL Document 10/19/22 09:22 [facility] [id number] 10/19/22 09:44 BMF 10/12/22 10/16/22 10/19/22 08:59 08:51 09:22 - Today's Visit Information Type of service Follow-up Visit Nurse-only Follow-up Visit (Physician/GAS LINE INSTALLER SUPERVISOR Visit (Physician/GAS LINE INSTALLER SUPERVISOR ) ) Arrival Mode Ambulatory Ambulatory Ambulatory Transfer Assistance None None None Patient Identification Verified (Name & Yes Yes Yes ) Patient Requires Transmission-Based No No No Precautions Height and Weight Body Mass Index (BMI) 47.4 47.4 47.4 BMI Classification Obese Obese Obese Vital Signs Temperature (97.8 F-99.1 F) 97.6 F L 973 F H 97.5 F L Temperature Source Temporal Temporal Temporal Pulse Rate (60-100) 94 91 85 Pulse Location Monitor Monitor Monitor Respiratory Rate (12-18) 16 20 H 18 Respiratory rate source Observation Observation Observation Oxygen Delivery Method Room Air Room Air Blood Pressure (90/60-120/80) 140/69 H 137/100 H 134/73 H Blood Pressure Mean (mm Hg) 92 112 93 Source Monitor Monitor Monitor Position Sitting Sitting Blood Pressure Location Right Arm Left Arm History Since Last Visit- (Skip if this is Patient's initial visit) Have you changed medications since your No No No last visit? Any new allergies or adverse reactions No No No Had a fall/change in ADL's that may No No No increase risk of falls Signs or symptoms of abuse and/or No No No neglect since last visit Have you been in the hospital since your No No No last visit? Has dressing in place as prescribed Yes Yes Yes Has compression in place as prescribed Yes N/A Yes Has offloadiing in place as prescribed N/A Yes Yes Experienced any changes in pain level or No No management Left Footwear Surgical Shoe Surgical Shoe Surgical Shoe with pressure with pressure with pressure relief insole relief insole relief insole Right Footwear Surgical Shoe Surgical Shoe Surgical Shoe with pressure with pressure with pressure relief insole relief insole relief insole Pain Scale: 0-10 Numeric Is Patient Pain Free? Yes Yes Yes WC - Nurse 1 - General Ulcer Measurement Start: 10/12/22 08:59 Freq: Status: Active Protocol: Activity Type Activity Date Activity User E-sign Co-sign Detail Recorded Client Recorded Date Recorded By Document 10/12/22 08:59 BMF [id number] 10/12/22 09:18 BMF Document 10/16/22 08:51 DL [id number] 10/16/22 08:55 DL Document 10/19/22 09:22 BM [id number] 10/19/22 09:44 BMF 10/12/22 10/16/22 10/19/22 08:59 08:51 09:22 Wound Center Nurse 1 #7 R HEEL -Combined with other wound No -Current Size (cm) - Length 1.8 -Current Size (cm) - Width 2 -Current Size (cm) - Depth 0.1 -Total Square Cm 3.6 -Date of Last Picture (Recall this 10/19/22 field) -Photo Taken Yes -Epithelialization None Present -Tunneling No -Undermining/Tunneling No -Circular Undermining No -Exudate Amt Small -Exudate Type Serosanguineous -Wound Margin Distinct, Outline Attached -Granulation Amt Large (67-100%) -Granulation Quality Red -Slough/Fibrin Yes -Necrosis Amt Small (1-33%) -Necrotic Tissue Type Adherent Slough -Texture (Marva-wound Skin Appearance) Assessed, Scarring -Moisture (Marva-wound Skin Appearance) No Abnormality, Dry/Scaly -Color (Marva-wound Skin Appearance) Assessed -Temperature (Marva-wound Skin No Abnormality Appearance) (Pt Warm) -Tenderness on Palpation (Marva-wound No Skin Appearance) -Ulcer Cleansing Soap and Water -Foul Odor after Cleansing No -Anesthetic Used 5% Lidocaine Gel #5- L LAT POST LEG -Combined with other wound No -Current Size (cm) - Length 0.1 -Current Size (cm) - Width 0.1 -Current Size (cm) - Depth 0.1 -Total Square Cm 0.01 -Date of Last Picture (Recall this 10/12/22 field) -Photo Taken Yes -Epithelialization Large 67-100% -Tunneling No -Undermining/Tunneling No -Circular Undermining No -Exudate Amt None Present -Texture (Marva-wound Skin Appearance) Assessed, Scarring -Moisture (Marva-wound Skin Appearance) Assessed,Dry/ Scaly -Color (Marva-wound Skin Appearance) Assessed -Ulcer Cleansing Soap and Water -Foul Odor after Cleansing No #3- L LAT ANKLE/FOOT -Combined with other wound No -Current Size (cm) - Length 0.1 -Current Size (cm) - Width 0.1 -Current Size (cm) - Depth 0.1 -Total Square Cm 0.01 -Date of Last Picture (Recall this 10/12/22 field) -Photo Taken Yes -Epithelialization Large 67-100% -Texture (Marva-wound Skin Appearance) Assessed -Moisture (Marva-wound Skin Appearance) Assessed -Color (Marva-wound Skin Appearance) Assessed -Temperature (Marva-wound Skin No Abnormality Appearance) (Pt Warm) -Tenderness on Palpation (Marva-wound No Skin Appearance) -Ulcer Cleansing Soap and Water -Foul Odor after Cleansing No #8- r 2nd toe -Combined with other wound No No -Current Size (cm) - Length 0.5 0.1 -Current Size (cm) - Width 0.5 0.1 -Current Size (cm) - Depth 0.2 0.1 -Total Square Cm 0.25 0.01 -Date of Last Picture (Recall this 10/12/22 10/19/22 field) -Photo Taken Yes Yes -Epithelialization None Present Large 67-100% -Tunneling No -Undermining/Tunneling No -Circular Undermining No -Exudate Amt Small Small -Exudate Type Serosanguineous Serosanguineous -Wound Margin Distinct, Distinct, Outline Outline Attached Attached -Granulation Amt Small (1-33%) -Granulation Quality Red -Slough/Fibrin Yes -Necrosis Amt Large (67-100%) -Necrotic Tissue Type Adherent Slough -Texture (Marva-wound Skin Appearance) Assessed, Localized Edema Assessed, Scarring ,Scarring Scarring -Moisture (Marva-wound Skin Appearance) Assessed Dry/Scaly Assessed,Dry/ Scaly -Color (Marva-wound Skin Appearance) Assessed, Hemosiderin Assessed Erythema Staining -Temperature (Marva-wound Skin No Abnormality No Abnormality No Abnormality Appearance) (Pt Warm) (Pt Warm) (Pt Warm) -Tenderness on Palpation (Marva-wound No No Skin Appearance) -Ulcer Cleansing Soap and Water Soap and Water Soap and Water -Foul Odor after Cleansing No No No -Anesthetic Used 5% Lidocaine Gel #6- R LAT ANKLE cluster -Combined with other wound No No -Current Size (cm) - Length 3 0.5 -Current Size (cm) - Width 7 0.4 -Current Size (cm) - Depth 0.1 0.2 -Total Square Cm 21 0.20 -Date of Last Picture (Recall this 10/12/22 10/19/22 field) -Photo Taken Yes Yes -Epithelialization Small 1-33% Medium 34-66% -Tunneling No No -Undermining/Tunneling No No -Circular Undermining No No -Exudate Amt Medium Small Small -Exudate Type Serosanguineous Serosanguineous Serosanguineous -Wound Margin Distinct, Distinct, Distinct, Outline Outline Outline Attached Attached Attached -Granulation Amt Medium (34-66%) Large (67-100%) -Granulation Quality Red -Slough/Fibrin Yes Yes -Necrosis Amt Medium (34-66%) Small (1-33%) -Necrotic Tissue Type Adherent Slough Adherent Slough -Texture (Marva-wound Skin Appearance) Assessed, Localized Edema Assessed, Scarring ,Scarring Scarring -Moisture (Marva-wound Skin Appearance) Assessed Dry/Scaly Assessed -Color (Marva-wound Skin Appearance) Assessed, Hemosiderin Assessed Hemosiderin Staining Staining -Temperature (Marva-wound Skin No Abnormality No Abnormality No Abnormality Appearance) (Pt Warm) (Pt Warm) (Pt Warm) -Tenderness on Palpation (Marva-wound No No Skin Appearance) -Ulcer Cleansing Soap and Water Soap and Water Soap and Water -Foul Odor after Cleansing No No No -Anesthetic Used 5% Lidocaine 5% Lidocaine Gel Gel #4- L POST LE -Combined with other wound No No -Current Size (cm) - Length 0.2 3.5 -Current Size (cm) - Width 0.2 2.3 -Current Size (cm) - Depth 0.1 0.1 -Total Square Cm 0.04 8.05 -Date of Last Picture (Recall this 10/12/22 10/19/22 field) -Photo Taken Yes Yes -Epithelialization Medium 34-66% Small 1-33% -Tunneling No No -Undermining/Tunneling No No -Circular Undermining No No -Exudate Amt Small Small -Exudate Type Serosanguineous Serosanguineous -Wound Margin Distinct, Flat & Intact Outline Attached -Granulation Amt Large (67-100%) Small (1-33%) -Granulation Quality Red Red -Slough/Fibrin Yes Yes -Necrosis Amt Small (1-33%) Large (67-100%) -Necrotic Tissue Type Adherent Slough Adherent Slough -Texture (Marva-wound Skin Appearance) Assessed, Localized Edema Assessed, Scarring ,Scarring Scarring -Moisture (Marva-wound Skin Appearance) Assessed,Dry/ Dry/Scaly Assessed,Dry/ Scaly Scaly -Color (Marva-wound Skin Appearance) Assessed Hemosiderin Assessed Staining -Temperature (Marva-wound Skin No Abnormality No Abnormality No Abnormality Appearance) (Pt Warm) (Pt Warm) (Pt Warm) -Tenderness on Palpation (Marva-wound No No Skin Appearance) -Ulcer Cleansing Soap and Water Soap and Water Soap and Water -Foul Odor after Cleansing No No No -Anesthetic Used 5% Lidocaine 5% Lidocaine Gel Gel Lower Limb Edema Present Yes Right Calf (cm) 52.5 50 Right Ankle (cm) 36.1 33.7 Right Foot (cm) 52.9 Left Calf (cm) 36.7 51.5 Left Ankle (cm) 35.5 WC - Nurse 2 - General Ulcer CM Notes Start: 10/12/22 08:59 Freq: Status: Active Protocol: Activity Type Activity Date Activity User E-sign Co-sign Detail Recorded Client Recorded Date Recorded By Document 10/12/22 09:31 MW [id number] 10/12/22 09:48 MW Document 10/19/22 09:51 MW [id number] 10/19/22 10:21 MW 10/12/22 10/19/22 09:31 09:51 Wound Center Nurse 2 #7 R HEEL -Time 09:53 -Correct Patient Yes -Correct Side, Site, Position Yes -Correct Procedure Yes -Procedure Performed No -Post Debridement (cm) - Length 0 -Post Debridement (cm) - Width 0 -Total Square (Post) (cm) 0 -Tunneling No -Undermining/Tunneling No -Wound/Ulcer Outcome Healed- Epithelialized #5- L LAT POST LEG -Time 09:33 -Correct Patient Yes -Correct Side, Site, Position Yes -Correct Procedure Yes -Procedure Performed No -Post Debridement (cm) - Length 0 -Post Debridement (cm) - Width 0 -Total Square (Post) (cm) 0 -Tunneling No -Undermining/Tunneling No -Circular Undermining No -Wound/Ulcer Outcome Healed- Epithelialized #3- L LAT ANKLE/FOOT -Time 09:35 -Correct Patient Yes -Correct Side, Site, Position Yes -Correct Procedure Yes -Procedure Performed No -Post Debridement (cm) - Length 0 -Post Debridement (cm) - Width 0 -Post Debridement (cm) - Depth 0 -Total Square (Post) (cm) 0 -Tunneling No -Undermining/Tunneling No -Circular Undermining No -Wound/Ulcer Outcome Healed- Epithelialized -Bleeding Controlled with Pressure,Silver Nitrate #8- r 2nd toe -Time 09:32 09:52 -Correct Patient Yes Yes -Correct Side, Site, Position Yes Yes -Correct Procedure Yes Yes -Procedure Performed Yes Yes -Type of Procedure Debridement Debridement -Clinical Debridement Subcutaneous Subcutaneous -Tissue Removed Subcutaneous Subcutaneous -Post Debridement (cm) - Length 0.8 0.4 -Post Debridement (cm) - Width 0.2 1.0 -Post Debridement (cm) - Depth 0.1 0.1 -Total Square (Post) (cm) 0.16 0.40 -Area of Debridement (cm) - Length 0.8 0.4 -Area of Debridement (cm) - Width 0.2 1.0 -Total Square (Area) (cm) 0.16 0.40 -Tunneling No No -Undermining/Tunneling No -Circular Undermining No No -Wound/Ulcer Outcome Not Healed Not Healed -Ulcer Cleansing Rinsed/ Rinsed/ Irrigated with Irrigated with Saline Saline -Foul Odor after Cleansing No No -Bioengineered Tissue No No -Bleeding Controlled with Pressure Pressure -Treatment Response Procedure Procedure Tolerated Well Tolerated Well -Offloading No No -Debridement - Subq, 1st 20sq cm Yes No -Debridement, SubQ, ea addt'l 20sq cm 3 or part thereof #6- R LAT ANKLE cluster -Time 09:33 09:53 -Correct Patient Yes Yes -Correct Side, Site, Position Yes Yes -Correct Procedure Yes Yes -Procedure Performed Yes Yes -Type of Procedure Debridement Debridement -Clinical Debridement Subcutaneous Subcutaneous -Tissue Removed Subcutaneous Subcutaneous -Post Debridement (cm) - Length 3.5 2.8 -Post Debridement (cm) - Width 8.0 7.0 -Post Debridement (cm) - Depth 0.1 0.1 -Total Square (Post) (cm) 28.00 19.60 -Area of Debridement (cm) - Length 3.5 2.8 -Area of Debridement (cm) - Width 8.0 7.0 -Total Square (Area) (cm) 28.00 19.60 -Tunneling No No -Undermining/Tunneling No No -Circular Undermining No No -Wound/Ulcer Outcome Not Healed Not Healed -Ulcer Cleansing Rinsed/ Rinsed/ Irrigated with Irrigated with Saline Saline -Foul Odor after Cleansing No No -Bioengineered Tissue No No -Bleeding Controlled with Pressure,Silver Pressure Nitrate -Treatment Response Procedure Procedure Tolerated Well Tolerated Well -Offloading No No -Debridement - Subq, 1st 20sq cm No Yes #4- L POST LE -Time 09:34 09:54 -Correct Patient Yes Yes -Correct Side, Site, Position Yes Yes -Correct Procedure Yes Yes -Procedure Performed Yes No -Type of Procedure Debridement Debridement -Clinical Debridement Subcutaneous Subcutaneous -Tissue Removed Subcutaneous Subcutaneous -Post Debridement (cm) - Length 5.5 0.1 -Post Debridement (cm) - Width 4.0 0.1 -Post Debridement (cm) - Depth 0.1 0.1 -Total Square (Post) (cm) 22.00 0.01 -Area of Debridement (cm) - Length 5.5 0.1 -Area of Debridement (cm) - Width 4.0 0.1 -Total Square (Area) (cm) 22.00 0.01 -Tunneling No No -Undermining/Tunneling No No -Circular Undermining No No -Wound/Ulcer Outcome Not Healed Not Healed -Ulcer Cleansing Rinsed/ Rinsed/ Irrigated with Irrigated with Saline Saline -Foul Odor after Cleansing No No -Bioengineered Tissue No No -Bleeding Controlled with Pressure Pressure -Treatment Response Procedure Procedure Tolerated Well Tolerated Well -Offloading No No -Debridement - Subq, 1st 20sq cm No No Pain Scale: 0-10 Numeric Is Patient Pain Free? Yes Yes WC - Nurse 3 - General Ulcer D/C NN Start: 10/12/22 08:59 Freq: Status: Active Protocol: Activity Type Activity Date Activity User E-sign Co-sign Detail Recorded Client Recorded Date Recorded By Document 10/12/22 10:13 [facility] [id number] 10/12/22 10:15 BM Document 10/16/22 08:51 DL [id number] 10/16/22 08:55 DL Document 10/19/22 10:28 [facility] [id number] 10/19/22 10:29 BMF 10/12/22 10/16/22 10/19/22 10:13 08:51 10:28 Wound Care Center Nurse 3 #8- r 2nd toe -Ulcer Cleansing Soap and Water Soap and Water Soap and Water -Foul Odor after Cleansing No No -Primary Dressing Applied Aquacel Extra Aquacel AG 4x4 Aquacel Extra -Other Dressing PER DL CASE MANAGEMENT MANAGER -Primary Dressing Covered/Secured with Dry Gauze, Dry Gauze, Secured with Secured with Tape Tape -Other Covering UNNA BOOT -Aquacel Extra 0 1 -Aquacel AG 4x4 1 #6- R LAT ANKLE cluster -Ulcer Cleansing Rinsed/ Soap and Water Soap and Water Irrigated with Saline -Foul Odor after Cleansing No No No -Primary Dressing Applied Aquacel Extra Aquacel Extra -Other Dressing unna aqaucel UNNA BOOT; PER DL CASE MANAGEMENT MANAGER -Primary Dressing Covered/Secured with Dry Gauze, Secured with Tape -Aquacel Extra 1 0 #4- L POST LE -Ulcer Cleansing Rinsed/ Soap and Water Soap and Water Irrigated with Saline -Foul Odor after Cleansing No No No -Primary Dressing Applied Aquacel Extra Aquacel Extra -Other Dressing unna aqaucel Ag UNNA BOOT; PER DL CASE MANAGEMENT MANAGER -Primary Dressing Covered/Secured with Dry Gauze & Roll Gauze, Secured with Tape -Aquacel Extra 0 0 ble -Multi-Layered Wrap Application Unna Boot - Multi-Layer Unna Boot - Bilateral ($) Comp - Bilat ($ Bilateral ($) ) Treatment Response Procedure Procedure Not Procedure Tolerated Well Tolerated Well Tolerated Well Vital Signs Temperature (97.8 F-99.1 F) 973 F H Temperature Source Temporal Pulse Rate (60-100) 91 Pulse Location Monitor Respiratory Rate (12-18) 20 H Respiratory rate source Observation Blood Pressure (90/60-120/80) 137/100 H Blood Pressure Mean (mm Hg) 112 Source Monitor Pain Scale: 0-10 Numeric Is Patient Pain Free? Yes Yes Yes WC - Visit Discharge Discharge Condition Stable Stable Stable Ambulatory Status Ambulatory Ambulatory Ambulatory Transportation Private Auto Private Auto Private Auto Additional Wound Wound debrided: Left lower extremity (posterior) Anesthesia Used: 4% Lidocaine Solution Depth: Down to and including healthy tissue and in the subcutaneous layer Percentage of wound debrided: 100 Instrument Used: 5mm curette Tissue Removed: Slough and devitalized tissue Severity: Fat Layer Exposed Amount of bleeding with debridement: Mild Bleeding Controlled with: Pressure Patient tolerated procedure: Patient tolerated procedure well Additional Wound Wound debrided: Right heel cluster Type of Debridement: Excisional debridement Anesthesia Used: 5% Lidocaine Gel Depth: Down to and including healthy tissue and in the subcutaneous layer Percentage of wound debrided: 100 Instrument Used: 5mm curette Tissue Removed: Slough and devitalized tissue Severity: Fat Layer Exposed Amount of bleeding with debridement: Mild Bleeding Controlled with: Pressure Patient tolerated procedure: Patient tolerated procedure well Assessment/Plan Assessment/Plan (1) Ulcer of left lower extremity with fat layer exposed: CODE(S): L97.922 - Non-pressure 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 layer exposed (2) Ulcer of right lower extremity with fat layer exposed: CODE(S): L97.912 - Non-pressure chronic ulcer of unspecified part of right lower leg with fat layer exposed (3) Lymphedema: CODE(S): I89.0 - Lymphedema, not elsewhere classified (4) Homeless single person: CODE(S): Z59.0 - Homelessness PLAN: Plan Debridement done as documented above, procedure was well-tolerated. Continues to show good improvement. Continue Aquacel to open areas and Unna boot to both lower extremities. Come in on Sunday for nurse visit/change. Leg elevation, exercise as tolerated discussed, he voiced understanding. Total protein intake also recommended. His questions were answered and he was advised to call with any further questions or concerns. Follow-up with me in a week. This note was generated with [employer] dictation software. It may contain incorrect words, spelling, and punctuation that were not noted in checking the note before signing.
[2022-10-24 13:03] VITALS: BP 137/81; PULSE 98; TEMP 36.2; BMI 47.4
[2022-10-26 09:32] VITALS: BP 145/66; PULSE 86; TEMP 35.9; BMI 47.4
--- NOTE | 2022-10-26 09:56 | PN.PCM_ITS ---
History of Present Illness Date of Service: 10/26/22 Chief Complaint: Bilateral lower extremity ulcers. History of Wound: Mr. Beltran is a 67 yo who was referred to the wound center due to bilateral lower extremity ulcer. Clinic history of lymphedema. He is currently homeless and has been living in his van. He states that over the recent months, he has been sitting a lot more is not as active as it should be. He also states that he has not been using his compression. Recently seen at the emergency room due to concern for feeling unwell, he was started on antibiotics and has 1 more day of it. Tolerating antibiotic well. Initially had a lot of drainage from his ulcers but he states that this has improved. No known history of diabetes. No chills, fever or feeling of unwell at this time. Progress of Wound: Tolerating Unna boot well. Improving. No new concerns at this time. Objective Data Objective Data Vital Signs: Vital Signs Temp Pulse Resp BP O2 Del Method 96.7 F L 86 18 145/66 H Room Air 10/26/22 09:32 10/26/22 09:32 10/19/22 09:22 10/26/22 09:32 10/19/22 09:22 Oxygen Delivery Method Room Air Weight: 340 lb Body Mass Index (BMI) 47.4 Charges/Coding Procedures Integumentary 111xxx-113xx: 71035 Magdalena subq tissue 20 sq cm/< Physical Exam Const alert, oriented x3 and no apparent distress General Appearance: cooperative and comfortable HEENT normocephalic, head/scalp atraumatic and hearing grossly normal bilaterally Eyes EOMs intact bilaterally Neck full ROM Resp normal respiratory effort Effort and Inspection: able to speak in complete sentences Extremity General Extremity: edema Skin Wounds: wounds noted Neuro oriented x3, CN's II-XII intact bilaterally and moves all extremities Psych mental status grossly normal, thought process normal, cooperative and affect normal Debridement Note Debridement Note Wound debrided: Right Heel Cluster Type of Debridement: Excisional debridement Anesthesia Used: 5% Lidocaine Gel Depth: Down to and including healthy tissue and in the subcutaneous layer Percentage of wound debrided: 100 Instrument Used: 5mm curette Tissue Removed: Slough and devitalized tissue Severity: Fat Layer Exposed Amount of bleeding with debridement: Mild Bleeding Controlled with: Pressure Patient tolerated procedure: Patient tolerated procedure well Post-Debridement Measurements and Additional Note: Post-Debridement Measurements/Treatment WC - Nurse 1 - General Ulcer Assessment Start: 10/12/22 08:59 Freq: Status: Active Protocol: WILLIAM Activity Type Activity Date Activity User E-sign Co-sign Detail Recorded Client Recorded Date Recorded By Document 10/12/22 08:59 BMF [id number] 10/12/22 09:18 BMF Document 10/16/22 08:51 DL [id number] 10/16/22 08:55 DL Document 10/19/22 09:22 BMF [id number] 10/19/22 09:44 BMF Document 10/24/22 13:03 AK [id number] 10/24/22 13:06 AK Document 10/26/22 09:32 AK [id number] 10/26/22 09:34 AK 10/12/22 10/16/22 10/19/22 08:59 08:51 09:22 WC - Today's Visit Information Type of service Follow-up Visit Nurse-only Follow-up Visit (Physician/END FRAZER Visit (Physician/END FRAZER ) ) Arrival Mode Ambulatory Ambulatory Ambulatory Transfer Assistance None None None Patient Identification Verified (Name & Yes Yes Yes ) Patient Requires Transmission-Based No No No Precautions Safety Precautions Height and Weight Body Mass Index (BMI) 47.4 47.4 47.4 BMI Classification Obese Obese Obese Vital Signs Temperature (97.8 F-99.1 F) 97.6 F L 973 F H 97.5 F L Temperature Source Temporal Temporal Temporal Pulse Rate (60-100) 94 91 85 Pulse Location Monitor Monitor Monitor Respiratory Rate (12-18) 16 20 H 18 Respiratory rate source Observation Observation Observation Oxygen Delivery Method Room Air Room Air Blood Pressure (90/60-120/80) 140/69 H 137/100 H 134/73 H Blood Pressure Mean (mm Hg) 92 112 93 Source Monitor Monitor Monitor Position Sitting Sitting Blood Pressure Location Right Arm Left Arm History Since Last Visit- (Skip if this is Patient's initial visit) Have you changed medications since your No No No last visit? Any new allergies or adverse reactions No No No Had a fall/change in ADL's that may No No No increase risk of falls Signs or symptoms of abuse and/or No No No neglect since last visit Have you been in the hospital since your No No No last visit? Has dressing in place as prescribed Yes Yes Yes Has compression in place as prescribed Yes N/A Yes Has offloadiing in place as prescribed N/A Yes Yes Experienced any changes in pain level or No No management Left Footwear Surgical Shoe Surgical Shoe Surgical Shoe with pressure with pressure with pressure relief insole relief insole relief insole Right Footwear Surgical Shoe Surgical Shoe Surgical Shoe with pressure with pressure with pressure relief insole relief insole relief insole Pain Scale: 0-10 Numeric Is Patient Pain Free? Yes Yes Yes 10/24/22 10/26/22 13:03 09:32 WC - Today's Visit Information Type of service Nurse-only Follow-up Visit Visit (Physician/END FRAZER ) Arrival Mode Ambulatory Ambulatory Transfer Assistance Patient Identification Verified (Name & Yes No ) Patient Requires Transmission-Based No No Precautions Safety Precautions NA Height and Weight Body Mass Index (BMI) 47.4 47.4 BMI Classification Obese Obese Vital Signs Temperature (97.8 F-99.1 F) 97.1 F L 96.7 F L Temperature Source Temporal Temporal Pulse Rate (60-100) 98 86 Pulse Location Monitor Monitor Respiratory Rate (12-18) Respiratory rate source Oxygen Delivery Method Blood Pressure (90/60-120/80) 137/81 H 145/66 H Blood Pressure Mean (mm Hg) 99 92 Source Monitor Monitor Position Blood Pressure Location History Since Last Visit- (Skip if this is Patient's initial visit) Have you changed medications since your No No last visit? Any new allergies or adverse reactions No No Had a fall/change in ADL's that may No No increase risk of falls Signs or symptoms of abuse and/or No No neglect since last visit Have you been in the hospital since your No No last visit? Has dressing in place as prescribed Yes Yes Has compression in place as prescribed Yes Yes Has offloadiing in place as prescribed N/A N/A Experienced any changes in pain level or No No management Left Footwear Regular Shoe Surgical Shoe with pressure relief insole Right Footwear Regular Shoe Surgical Shoe with pressure relief insole Pain Scale: 0-10 Numeric Is Patient Pain Free? Yes Yes - Nurse 1 - General Ulcer Measurement Start: 10/12/22 08:59 Freq: Status: Active Protocol: Activity Type Activity Date Activity User E-sign Co-sign Detail Recorded Client Recorded Date Recorded By Document 10/12/22 08:59 [facility] [id number] 10/12/22 09:18 BM Document 10/16/22 08:51 DL [id number] 10/16/22 08:55 DL Document 10/19/22 09:22 [facility] [id number] 10/19/22 09:44 BM Document 10/26/22 09:32 AK [id number] 10/26/22 09:34 AK 10/12/22 10/16/22 10/19/22 08:59 08:51 09:22 Wound Center Nurse 1 #8- r 2nd toe -Combined with other wound No No -Current Size (cm) - Length 0.5 0.1 -Current Size (cm) - Width 0.5 0.1 -Current Size (cm) - Depth 0.2 0.1 -Total Square Cm 0.25 0.01 -Date of Last Picture (Recall this 10/12/22 10/19/22 field) -Photo Taken Yes Yes -Epithelialization None Present Large 67-100% -Tunneling No -Undermining/Tunneling No -Circular Undermining No -Exudate Amt Small Small -Exudate Type Serosanguineous Serosanguineous -Wound Margin Distinct, Distinct, Outline Outline Attached Attached -Granulation Amt Small (1-33%) -Granulation Quality Red -Slough/Fibrin Yes -Necrosis Amt Large (67-100%) -Necrotic Tissue Type Adherent Slough -Texture (Marva-wound Skin Appearance) Assessed, Localized Edema Assessed, Scarring ,Scarring Scarring -Moisture (Marva-wound Skin Appearance) Assessed Dry/Scaly Assessed,Dry/ Scaly -Color (Marva-wound Skin Appearance) Assessed, Hemosiderin Assessed Erythema Staining -Temperature (Marva-wound Skin No Abnormality No Abnormality No Abnormality Appearance) (Pt Warm) (Pt Warm) (Pt Warm) -Tenderness on Palpation (Marva-wound No No Skin Appearance) -Ulcer Cleansing Soap and Water Soap and Water Soap and Water -Foul Odor after Cleansing No No No -Anesthetic Used 5% Lidocaine Gel #7 R HEEL -Combined with other wound No -Current Size (cm) - Length 1.8 -Current Size (cm) - Width 2 -Current Size (cm) - Depth 0.1 -Total Square Cm 3.6 -Date of Last Picture (Recall this 10/19/22 field) -Photo Taken Yes -Epithelialization None Present -Tunneling No -Undermining/Tunneling No -Circular Undermining No -Change in Wound Grade/Stage -Exudate Amt Small -Exudate Type Serosanguineous -Wound Margin Distinct, Outline Attached -Granulation Amt Large (67-100%) -Granulation Quality Red -Slough/Fibrin Yes -Necrosis Amt Small (1-33%) -Necrotic Tissue Type Adherent Slough -Structure Exposed -Texture (Marva-wound Skin Appearance) Assessed, Scarring -Moisture (Marva-wound Skin Appearance) No Abnormality, Dry/Scaly -Color (Marva-wound Skin Appearance) Assessed -Temperature (Marva-wound Skin No Abnormality Appearance) (Pt Warm) -Tenderness on Palpation (Marva-wound No Skin Appearance) -Ulcer Cleansing Soap and Water -Foul Odor after Cleansing No -Anesthetic Used 5% Lidocaine Gel #5- L LAT POST LEG -Combined with other wound No -Current Size (cm) - Length 0.1 -Current Size (cm) - Width 0.1 -Current Size (cm) - Depth 0.1 -Total Square Cm 0.01 -Date of Last Picture (Recall this 10/12/22 field) -Photo Taken Yes -Epithelialization Large 67-100% -Tunneling No -Undermining/Tunneling No -Circular Undermining No -Exudate Amt None Present -Texture (Marva-wound Skin Appearance) Assessed, Scarring -Moisture (Marva-wound Skin Appearance) Assessed,Dry/ Scaly -Color (Marva-wound Skin Appearance) Assessed -Ulcer Cleansing Soap and Water -Foul Odor after Cleansing No #4- L POST LE -Combined with other wound No No -Current Size (cm) - Length 0.2 3.5 -Current Size (cm) - Width 0.2 2.3 -Current Size (cm) - Depth 0.1 0.1 -Total Square Cm 0.04 8.05 -Date of Last Picture (Recall this 10/12/22 10/19/22 field) -Photo Taken Yes Yes -Epithelialization Medium 34-66% Small 1-33% -Tunneling No No -Undermining/Tunneling No No -Circular Undermining No No -Exudate Amt Small Small -Exudate Type Serosanguineous Serosanguineous -Wound Margin Distinct, Flat & Intact Outline Attached -Granulation Amt Large (67-100%) Small (1-33%) -Granulation Quality Red Red -Slough/Fibrin Yes Yes -Necrosis Amt Small (1-33%) Large (67-100%) -Necrotic Tissue Type Adherent Slough Adherent Slough -Texture (Marva-wound Skin Appearance) Assessed, Localized Edema Assessed, Scarring ,Scarring Scarring -Moisture (Marva-wound Skin Appearance) Assessed,Dry/ Dry/Scaly Assessed,Dry/ Scaly Scaly -Color (Marva-wound Skin Appearance) Assessed Hemosiderin Assessed Staining -Temperature (Marva-wound Skin No Abnormality No Abnormality No Abnormality Appearance) (Pt Warm) (Pt Warm) (Pt Warm) -Tenderness on Palpation (Marva-wound No No Skin Appearance) -Ulcer Cleansing Soap and Water Soap and Water Soap and Water -Foul Odor after Cleansing No No No -Anesthetic Used 5% Lidocaine 5% Lidocaine Gel Gel #3- L LAT ANKLE/FOOT -Combined with other wound No -Current Size (cm) - Length 0.1 -Current Size (cm) - Width 0.1 -Current Size (cm) - Depth 0.1 -Total Square Cm 0.01 -Date of Last Picture (Recall this 10/12/22 field) -Photo Taken Yes -Epithelialization Large 67-100% -Texture (Marva-wound Skin Appearance) Assessed -Moisture (Marva-wound Skin Appearance) Assessed -Color (Marva-wound Skin Appearance) Assessed -Temperature (Marva-wound Skin No Abnormality Appearance) (Pt Warm) -Tenderness on Palpation (Marva-wound No Skin Appearance) -Ulcer Cleansing Soap and Water -Foul Odor after Cleansing No #6- R LAT ANKLE cluster -Combined with other wound No No -Current Size (cm) - Length 3 0.5 -Current Size (cm) - Width 7 0.4 -Current Size (cm) - Depth 0.1 0.2 -Total Square Cm 21 0.20 -Date of Last Picture (Recall this 10/12/22 10/19/22 field) -Photo Taken Yes Yes -Epithelialization Small 1-33% Medium 34-66% -Tunneling No No -Undermining/Tunneling No No -Circular Undermining No No -Exudate Amt Medium Small Small -Exudate Type Serosanguineous Serosanguineous Serosanguineous -Wound Margin Distinct, Distinct, Distinct, Outline Outline Outline Attached Attached Attached -Granulation Amt Medium (34-66%) Large (67-100%) -Granulation Quality Red -Slough/Fibrin Yes Yes -Necrosis Amt Medium (34-66%) Small (1-33%) -Necrotic Tissue Type Adherent Slough Adherent Slough -Texture (Marva-wound Skin Appearance) Assessed, Localized Edema Assessed, Scarring ,Scarring Scarring -Moisture (Marva-wound Skin Appearance) Assessed Dry/Scaly Assessed -Color (Marva-wound Skin Appearance) Assessed, Hemosiderin Assessed Hemosiderin Staining Staining -Temperature (Marva-wound Skin No Abnormality No Abnormality No Abnormality Appearance) (Pt Warm) (Pt Warm) (Pt Warm) -Tenderness on Palpation (Marva-wound No No Skin Appearance) -Ulcer Cleansing Soap and Water Soap and Water Soap and Water -Foul Odor after Cleansing No No No -Anesthetic Used 5% Lidocaine 5% Lidocaine Gel Gel Lower Limb Edema Present Yes Right Calf (cm) 52.5 50 Point of measurement (cm from the medial instep) Right Ankle (cm) 36.1 33.7 Point of Measurement (cm from the medial instep) Right Foot (cm) 52.9 Left Calf (cm) 36.7 51.5 Left Ankle (cm) 35.5 10/26/22 09:32 Wound Center Nurse 1 #8- r 2nd toe -Combined with other wound No -Current Size (cm) - Length -Current Size (cm) - Width -Current Size (cm) - Depth -Total Square Cm -Date of Last Picture (Recall this field) -Photo Taken -Epithelialization -Tunneling -Undermining/Tunneling -Circular Undermining -Exudate Amt -Exudate Type -Wound Margin -Granulation Amt -Granulation Quality -Slough/Fibrin -Necrosis Amt -Necrotic Tissue Type -Texture (Marva-wound Skin Appearance) -Moisture (Marva-wound Skin Appearance) -Color (Marva-wound Skin Appearance) -Temperature (Marva-wound Skin Appearance) -Tenderness on Palpation (Marva-wound Skin Appearance) -Ulcer Cleansing -Foul Odor after Cleansing -Anesthetic Used #7 R HEEL -Combined with other wound No -Current Size (cm) - Length 0.4 -Current Size (cm) - Width 0.4 -Current Size (cm) - Depth 0.1 -Total Square Cm 0.16 -Date of Last Picture (Recall this field) -Photo Taken No -Epithelialization -Tunneling No -Undermining/Tunneling No -Circular Undermining No -Change in Wound Grade/Stage No -Exudate Amt Medium -Exudate Type Serosanguineous -Wound Margin Distinct, Outline Attached -Granulation Amt Large (67-100%) -Granulation Quality Red -Slough/Fibrin Yes -Necrosis Amt Small (1-33%) -Necrotic Tissue Type Adherent Slough -Structure Exposed N/A -Texture (Marva-wound Skin Appearance) Assessed,Callus ,Excoriation -Moisture (Marva-wound Skin Appearance) Assessed,Dry/ Scaly -Color (Marva-wound Skin Appearance) No Abnormality, Assessed -Temperature (Marva-wound Skin No Abnormality Appearance) (Pt Warm) -Tenderness on Palpation (Marva-wound Yes Skin Appearance) -Ulcer Cleansing Soap and Water -Foul Odor after Cleansing No -Anesthetic Used 5% Lidocaine Gel #5- L LAT POST LEG -Combined with other wound -Current Size (cm) - Length -Current Size (cm) - Width -Current Size (cm) - Depth -Total Square Cm -Date of Last Picture (Recall this field) -Photo Taken -Epithelialization -Tunneling -Undermining/Tunneling -Circular Undermining -Exudate Amt -Texture (Marva-wound Skin Appearance) -Moisture (Marva-wound Skin Appearance) -Color (Marva-wound Skin Appearance) -Ulcer Cleansing -Foul Odor after Cleansing #4- L POST LE -Combined with other wound -Current Size (cm) - Length -Current Size (cm) - Width -Current Size (cm) - Depth -Total Square Cm -Date of Last Picture (Recall this field) -Photo Taken -Epithelialization -Tunneling -Undermining/Tunneling -Circular Undermining -Exudate Amt -Exudate Type -Wound Margin -Granulation Amt -Granulation Quality -Slough/Fibrin -Necrosis Amt -Necrotic Tissue Type -Texture (Marva-wound Skin Appearance) -Moisture (Marva-wound Skin Appearance) -Color (Marva-wound Skin Appearance) -Temperature (Marva-wound Skin Appearance) -Tenderness on Palpation (Marva-wound Skin Appearance) -Ulcer Cleansing -Foul Odor after Cleansing -Anesthetic Used #3- L LAT ANKLE/FOOT -Combined with other wound -Current Size (cm) - Length -Current Size (cm) - Width -Current Size (cm) - Depth -Total Square Cm -Date of Last Picture (Recall this field) -Photo Taken -Epithelialization -Texture (Marva-wound Skin Appearance) -Moisture (Marva-wound Skin Appearance) -Color (Marva-wound Skin Appearance) -Temperature (Marva-wound Skin Appearance) -Tenderness on Palpation (Marva-wound Skin Appearance) -Ulcer Cleansing -Foul Odor after Cleansing #6- R LAT ANKLE cluster -Combined with other wound -Current Size (cm) - Length -Current Size (cm) - Width -Current Size (cm) - Depth -Total Square Cm -Date of Last Picture (Recall this field) -Photo Taken -Epithelialization -Tunneling -Undermining/Tunneling -Circular Undermining -Exudate Amt -Exudate Type -Wound Margin -Granulation Amt -Granulation Quality -Slough/Fibrin -Necrosis Amt -Necrotic Tissue Type -Texture (Marva-wound Skin Appearance) -Moisture (Marva-wound Skin Appearance) -Color (Marva-wound Skin Appearance) -Temperature (Marva-wound Skin Appearance) -Tenderness on Palpation (Marva-wound Skin Appearance) -Ulcer Cleansing -Foul Odor after Cleansing -Anesthetic Used Lower Limb Edema Present Right Calf (cm) Point of measurement (cm from the medial 53 instep) Right Ankle (cm) Point of Measurement (cm from the medial 36 instep) Right Foot (cm) Left Calf (cm) 55 Left Ankle (cm) 36 WC - Nurse 2 - General Ulcer CM Notes Start: 10/12/22 08:59 Freq: Status: Active Protocol: Activity Type Activity Date Activity User E-sign Co-sign Detail Recorded Client Recorded Date Recorded By Document 10/12/22 09:31 MW [id number] 10/12/22 09:48 MW Document 10/19/22 09:51 MW [id number] 10/19/22 10:21 MW Document 10/26/22 09:42 MW Desktop 10/26/22 09:50 MW 10/12/22 10/19/22 10/26/22 09:31 09:51 09:42 Wound Center Nurse 2 #8- r 2nd toe -Time 09:32 09:52 09:49 -Correct Patient Yes Yes Yes -Correct Side, Site, Position Yes Yes Yes -Correct Procedure Yes Yes Yes -Procedure Performed Yes Yes No -Type of Procedure Debridement Debridement -Clinical Debridement Subcutaneous Subcutaneous -Tissue Removed Subcutaneous Subcutaneous -Post Debridement (cm) - Length 0.8 0.4 0 -Post Debridement (cm) - Width 0.2 1.0 0 -Post Debridement (cm) - Depth 0.1 0.1 0 -Total Square (Post) (cm) 0.16 0.40 0 -Area of Debridement (cm) - Length 0.8 0.4 -Area of Debridement (cm) - Width 0.2 1.0 -Total Square (Area) (cm) 0.16 0.40 -Tunneling No No -Undermining/Tunneling No -Circular Undermining No No -Wound/Ulcer Outcome Not Healed Not Healed Healed- Epithelialized -Ulcer Cleansing Rinsed/ Rinsed/ Irrigated with Irrigated with Saline Saline -Foul Odor after Cleansing No No -Bioengineered Tissue No No -Bleeding Controlled with Pressure Pressure -Treatment Response Procedure Procedure Tolerated Well Tolerated Well -Offloading No No -Debridement - Subq, 1st 20sq cm Yes No -Debridement, SubQ, ea addt'l 20sq cm 3 or part thereof #7 R HEEL -Time 09:53 09:46 -Correct Patient Yes Yes -Correct Side, Site, Position Yes Yes -Correct Procedure Yes Yes -Procedure Performed No No -Post Debridement (cm) - Length 0 0 -Post Debridement (cm) - Width 0 0 -Post Debridement (cm) - Depth 0 -Total Square (Post) (cm) 0 0 -Area of Debridement (cm) - Length 0 -Area of Debridement (cm) - Width 1.0 -Total Square (Area) (cm) 0 -Tunneling No No -Undermining/Tunneling No No -Circular Undermining No -Wound/Ulcer Outcome Healed- Healed- Epithelialized Epithelialized #5- L LAT POST LEG -Time 09:33 -Correct Patient Yes -Correct Side, Site, Position Yes -Correct Procedure Yes -Procedure Performed No -Post Debridement (cm) - Length 0 -Post Debridement (cm) - Width 0 -Total Square (Post) (cm) 0 -Tunneling No -Undermining/Tunneling No -Circular Undermining No -Wound/Ulcer Outcome Healed- Epithelialized #4- L POST LE -Time 09:34 09:54 09:49 -Correct Patient Yes Yes Yes -Correct Side, Site, Position Yes Yes Yes -Correct Procedure Yes Yes Yes -Procedure Performed Yes No No -Type of Procedure Debridement Debridement -Clinical Debridement Subcutaneous Subcutaneous -Tissue Removed Subcutaneous Subcutaneous -Post Debridement (cm) - Length 5.5 0.1 0 -Post Debridement (cm) - Width 4.0 0.1 0 -Post Debridement (cm) - Depth 0.1 0.1 0 -Total Square (Post) (cm) 22.00 0.01 0 -Area of Debridement (cm) - Length 5.5 0.1 -Area of Debridement (cm) - Width 4.0 0.1 -Total Square (Area) (cm) 22.00 0.01 -Tunneling No No -Undermining/Tunneling No No -Circular Undermining No No -Wound/Ulcer Outcome Not Healed Not Healed Healed- Epithelialized -Ulcer Cleansing Rinsed/ Rinsed/ Irrigated with Irrigated with Saline Saline -Foul Odor after Cleansing No No -Bioengineered Tissue No No -Bleeding Controlled with Pressure Pressure -Treatment Response Procedure Procedure Tolerated Well Tolerated Well -Offloading No No -Debridement - Subq, 1st 20sq cm No No #3- L LAT ANKLE/FOOT -Time 09:35 -Correct Patient Yes -Correct Side, Site, Position Yes -Correct Procedure Yes -Procedure Performed No -Post Debridement (cm) - Length 0 -Post Debridement (cm) - Width 0 -Post Debridement (cm) - Depth 0 -Total Square (Post) (cm) 0 -Tunneling No -Undermining/Tunneling No -Circular Undermining No -Wound/Ulcer Outcome Healed- Epithelialized -Bleeding Controlled with Pressure,Silver Nitrate #6- R LAT ANKLE cluster -Time 09:33 09:53 09:48 -Correct Patient Yes Yes Yes -Correct Side, Site, Position Yes Yes Yes -Correct Procedure Yes Yes Yes -Procedure Performed Yes Yes Yes -Type of Procedure Debridement Debridement Debridement -Clinical Debridement Subcutaneous Subcutaneous Subcutaneous -Tissue Removed Subcutaneous Subcutaneous Subcutaneous -Post Debridement (cm) - Length 3.5 2.8 0.8 -Post Debridement (cm) - Width 8.0 7.0 1.0 -Post Debridement (cm) - Depth 0.1 0.1 0.1 -Total Square (Post) (cm) 28.00 19.60 0.80 -Area of Debridement (cm) - Length 3.5 2.8 0.8 -Area of Debridement (cm) - Width 8.0 7.0 1.0 -Total Square (Area) (cm) 28.00 19.60 0.80 -Tunneling No No No -Undermining/Tunneling No No No -Circular Undermining No No No -Wound/Ulcer Outcome Not Healed Not Healed Not Healed -Ulcer Cleansing Rinsed/ Rinsed/ Rinsed/ Irrigated with Irrigated with Irrigated with Saline Saline Saline -Foul Odor after Cleansing No No No -Bioengineered Tissue No No No -Bleeding Controlled with Pressure,Silver Pressure Pressure Nitrate -Treatment Response Procedure Procedure Procedure Tolerated Well Tolerated Well Tolerated Well -Offloading No No No -Debridement - Subq, 1st 20sq cm No Yes Yes Pain Scale: 0-10 Numeric Is Patient Pain Free? Yes Yes Yes WC - Nurse 3 - General Ulcer D/C NN Start: 10/12/22 08:59 Freq: Status: Active Protocol: Activity Type Activity Date Activity User E-sign Co-sign Detail Recorded Client Recorded Date Recorded By Document 10/12/22 10:13 [facility] [id number] 10/12/22 10:15 [facility] Document 10/16/22 08:51 [id number] 10/16/22 08:55 Document 10/19/22 10:28 [facility] [id number] 10/19/22 10:29 [facility] Document 10/24/22 13:03 [place] [id number] 10/24/22 13:06 [place] Document 10/24/22 13:06 [place] [id number] 10/24/22 13:07 [place] 10/12/22 10/16/22 10/19/22 10:13 08:51 10:28 Wound Care Center Nurse 3 #8- r 2nd toe -Ulcer Cleansing Soap and Water Soap and Water Soap and Water -Foul Odor after Cleansing No No -Negative Pressure Wound Therapy -Primary Dressing Applied Aquacel Extra Aquacel AG 4x4 Aquacel Extra -Other Dressing PER DL CANDY BUTCHER -Primary Dressing Covered/Secured with Dry Gauze, Dry Gauze, Secured with Secured with Tape Tape -Other Covering UNNA BOOT -Aquacel Extra 0 1 -Aquacel AG 4x4 1 #4- L POST LE -Ulcer Cleansing Rinsed/ Soap and Water Soap and Water Irrigated with Saline -Foul Odor after Cleansing No No No -Negative Pressure Wound Therapy -Primary Dressing Applied Aquacel Extra Aquacel Extra -Other Dressing unna aqaucel Ag UNNA BOOT; PER DL CANDY BUTCHER -Primary Dressing Covered/Secured with Dry Gauze & Roll Gauze, Secured with Tape -Aquacel Extra 0 0 #6- R LAT ANKLE cluster -Ulcer Cleansing Rinsed/ Soap and Water Soap and Water Irrigated with Saline -Foul Odor after Cleansing No No No -Primary Dressing Applied Aquacel Extra Aquacel Extra -Other Dressing unna aqaucel Ag UNNA BOOT; PER DL CANDY BUTCHER -Primary Dressing Covered/Secured with Dry Gauze, Secured with Tape -Aquacel Extra 1 0 ble -Lotion applied to leg before compression wrap -Multi-Layered Wrap Application Unna Boot - Multi-Layer Unna Boot - Bilateral ($) Comp - Bilat ($ Bilateral ($) ) Treatment Response Procedure Procedure Not Procedure Tolerated Well Tolerated Well Tolerated Well Vital Signs Temperature (97.8 F-99.1 F) 973 F H Temperature Source Temporal Pulse Rate (60-100) 91 Pulse Location Monitor Respiratory Rate (12-18) 20 H Respiratory rate source Observation Blood Pressure (90/60-120/80) 137/100 H Blood Pressure Mean (mm Hg) 112 Source Monitor Pain Scale: 0-10 Numeric Is Patient Pain Free? Yes Yes Yes WC - Visit Discharge Discharge Condition Stable Stable Stable Ambulatory Status Ambulatory Ambulatory Ambulatory Transportation Private Auto Private Auto Private Auto Medication Reconcilliation completed & provided to patient/care provider Clinical Summary of Care Provided Notes: 10/24/22 10/24/22 13:03 13:06 [facility] Nurse 3 #8- r 2nd toe -Ulcer Cleansing Soap and Water -Foul Odor after Cleansing No -Negative Pressure Wound Therapy N/A -Primary Dressing Applied Aquacel Extra -Other Dressing -Primary Dressing Covered/Secured with -Other Covering -Aquacel Extra 1 -Aquacel AG 4x4 #4- L POST LE -Ulcer Cleansing Soap and Water -Foul Odor after Cleansing No -Negative Pressure Wound Therapy N/A -Primary Dressing Applied -Other Dressing aquacel extra -Primary Dressing Covered/Secured with -Aquacel Extra #6- R LAT ANKLE cluster -Ulcer Cleansing Soap and Water -Foul Odor after Cleansing -Primary Dressing Applied -Other Dressing aquacel extra -Primary Dressing Covered/Secured with -Aquacel Extra ble -Lotion applied to leg before No compression wrap -Multi-Layered Wrap Application Unna Boot - Bilateral ($) Treatment Response Vital Signs Temperature (97.8 F-99.1 F) 97.1 F L Temperature Source Temporal Pulse Rate (60-100) 98 Pulse Location Monitor Respiratory Rate (12-18) Respiratory rate source Blood Pressure (90/60-120/80) 137/81 H Blood Pressure Mean (mm Hg) 99 Source Monitor Pain Scale: 0-10 Numeric Is Patient Pain Free? Yes Yes WC - Visit Discharge Discharge Condition Stable Ambulatory Status Transportation Private Auto Medication Reconcilliation completed & Yes provided to patient/care provider Clinical Summary of Care Provided Yes Notes: shanique applied wraps Assessment/Plan Assessment/Plan (1) Ulcer of left lower extremity with fat layer exposed: CODE(S): L97.922 - Non-pressure 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 layer exposed (2) Ulcer of right lower extremity with fat layer exposed: CODE(S): L97.912 - Non-pressure chronic ulcer of unspecified part of right lower leg with fat layer exposed (3) Lymphedema: CODE(S): I89.0 - Lymphedema, not elsewhere classified (4) Homeless single person: CODE(S): Z59.0 - Homelessness PLAN: Plan Debridement done as documented above, procedure was well-tolerated. Continues to show good improvement. Left Lower Extremity is healed. Continue Aquacel to open areas and Unna boot to both lower extremities. Leave in place x 1 week. Leg elevation, exercise as tolerated discussed, he voiced understanding. Optimal protein intake also recommended. His questions were answered and he was advised to call with any further questions or concerns. Follow-up with me in a week. This note was generated with frintitation software. It may contain incorrect words, spelling, and punctuation that were not noted in checking the note before signing.
[2022-11-02 09:21] VITALS: BP 165/94; PULSE 91; RESP 16; TEMP 36.5; BMI 47.4
--- NOTE | 2022-11-02 11:07 | PN.PCM_ITS ---
History of Present Illness Date of Service: 11/02/22 Chief Complaint: Bilateral lower extremity ulcers. History of Wound: Mr. Beltran is a 67 yo who was referred to the wound center due to bilateral lower extremity ulcer. Clinic history of lymphedema. He is currently homeless and has been living in his van. He states that over the recent months, he has been sitting a lot more is not as active as it should be. He also states that he has not been using his compression. Recently seen at the emergency room due to concern for feeling unwell, he was started on antibiotics and has 1 more day of it. Tolerating antibiotic well. Initially had a lot of drainage from his ulcers but he states that this has improved. No known history of diabetes. No chills, fever or feeling of unwell at this time. Progress of Wound: Tolerating Unna boot well. Improving. No new concerns at this time. Very minimal area left. Objective Data Objective Data Vital Signs: Vital Signs Temp Pulse Resp BP O2 Del Method 97.7 F L 91 16 165/94 H Room Air 11/02/22 09:21 11/02/22 09:21 11/02/22 09:21 11/02/22 09:21 11/02/22 09:21 Oxygen Delivery Method Room Air Weight: 340 lb Body Mass Index (BMI) 47.4 Charges/Coding Procedures Integumentary 111xxx-113xx: 24725 Mag[place]ena subq tissue 20 sq cm/< (Superficial debridement done. ) Physical Exam Const alert, oriented x3 and no apparent distress General Appearance: cooperative and comfortable HEENT normocephalic, head/scalp atraumatic and hearing grossly normal bilaterally Eyes EOMs intact bilaterally Neck full ROM Resp normal respiratory effort Effort and Inspection: able to speak in complete sentences Extremity General Extremity: edema Skin Wounds: wounds noted Neuro oriented x3, CN's II-XII intact bilaterally and moves all extremities Psych mental status grossly normal, thought process normal, cooperative and affect normal Debridement Note Debridement Note Wound debrided: Right Heel Cluster Type of Debridement: Selective debridement Anesthesia Used: 5% Lidocaine Gel Depth: Down to and including healthy tissue and in the subcutaneous layer Percentage of wound debrided: 100 Instrument Used: 5mm curette Tissue Removed: Devitalized tissue Severity: Limited To Skin Breakdown Amount of bleeding with debridement: Mild Bleeding Controlled with: Pressure Patient tolerated procedure: Patient tolerated procedure well Post-Debridement Measurements and Additional Note: Post-Debridement Measurements/Treatment WC - Nurse 1 - General Ulcer Assessment Start: 10/12/22 08:59 Freq: Status: Active Protocol: WILLIAM Activity Type Activity Date Activity User E-sign Co-sign Detail Recorded Client Recorded Date Recorded By Document 10/12/22 08:59 BM [id number] 10/12/22 09:18 BMF Document 10/16/22 08:51 DL [id number] 10/16/22 08:55 DL Document 10/19/22 09:22 BM [id number] 10/19/22 09:44 BM Document 10/24/22 13:03 AK [id number] 10/24/22 13:06 AK Document 10/26/22 09:32 AK [id number] 10/26/22 09:34 AK Document 11/02/22 09:21 BM [id number] 11/02/22 09:31 BMF 10/12/22 10/16/22 10/19/22 08:59 08:51 09:22 WC - Today's Visit Information Type of service Follow-up Visit Nurse-only Follow-up Visit (Physician/LATHE HAND Visit (Physician/LATHE HAND ) ) Arrival Mode Ambulatory Ambulatory Ambulatory Transfer Assistance None None None Patient Identification Verified (Name & Yes Yes Yes ) Patient Requires Transmission-Based No No No Precautions Safety Precautions Height and Weight Body Mass Index (BMI) 47.4 47.4 47.4 BMI Classification Obese Obese Obese Vital Signs Temperature (97.8 F-99.1 F) 97.6 F L 973 F H 97.5 F L Temperature Source Temporal Temporal Temporal Pulse Rate (60-100) 94 91 85 Pulse Location Monitor Monitor Monitor Respiratory Rate (12-18) 16 20 H 18 Respiratory rate source Observation Observation Observation Oxygen Delivery Method Room Air Room Air Blood Pressure (90/60-120/80) 140/69 H 137/100 H 134/73 H Blood Pressure Mean (mm Hg) 92 112 93 Source Monitor Monitor Monitor Position Sitting Sitting Blood Pressure Location Right Arm Left Arm History Since Last Visit- (Skip if this is Patient's initial visit) Have you changed medications since your No No No last visit? Any new allergies or adverse reactions No No No Had a fall/change in ADL's that may No No No increase risk of falls Signs or symptoms of abuse and/or No No No neglect since last visit Have you been in the hospital since your No No No last visit? Has dressing in place as prescribed Yes Yes Yes Has compression in place as prescribed Yes N/A Yes Has offloadiing in place as prescribed N/A Yes Yes Experienced any changes in pain level or No No management Left Footwear Surgical Shoe Surgical Shoe Surgical Shoe with pressure with pressure with pressure relief insole relief insole relief insole Right Footwear Surgical Shoe Surgical Shoe Surgical Shoe with pressure with pressure with pressure relief insole relief insole relief insole Pain Scale: 0-10 Numeric Is Patient Pain Free? Yes Yes Yes 10/24/22 10/26/22 11/02/22 13:03 09:32 09:21 WC - Today's Visit Information Type of service Nurse-only Follow-up Visit Follow-up Visit Visit (Physician/LATHE HAND (Physician/LATHE HAND ) ) Arrival Mode Ambulatory Ambulatory Ambulatory Transfer Assistance None Patient Identification Verified (Name & Yes No Yes ) Patient Requires Transmission-Based No No No Precautions Safety Precautions NA Height and Weight Body Mass Index (BMI) 47.4 47.4 47.4 BMI Classification Obese Obese Obese Vital Signs Temperature (97.8 F-99.1 F) 97.1 F L 96.7 F L 97.7 F L Temperature Source Temporal Temporal Temporal Pulse Rate (60-100) 98 86 91 Pulse Location Monitor Monitor Monitor Respiratory Rate (12-18) 16 Respiratory rate source Observation Oxygen Delivery Method Room Air Blood Pressure (90/60-120/80) 137/81 H 145/66 H 165/94 H Blood Pressure Mean (mm Hg) 99 92 117 Source Monitor Monitor Monitor Position Sitting Blood Pressure Location Left Forearm History Since Last Visit- (Skip if this is Patient's initial visit) Have you changed medications since your No No No last visit? Any new allergies or adverse reactions No No No Had a fall/change in ADL's that may No No No increase risk of falls Signs or symptoms of abuse and/or No No No neglect since last visit Have you been in the hospital since your No No No last visit? Has dressing in place as prescribed Yes Yes Yes Has compression in place as prescribed Yes Yes Yes Has offloadiing in place as prescribed N/A N/A N/A Experienced any changes in pain level or No No No management Left Footwear Regular Shoe Surgical Shoe Surgical Shoe with pressure with pressure relief insole relief insole Right Footwear Regular Shoe Surgical Shoe Surgical Shoe with pressure with pressure relief insole relief insole Pain Scale: 0-10 Numeric Is Patient Pain Free? Yes Yes Yes WC - Nurse 1 - General Ulcer Measurement Start: 10/12/22 08:59 Freq: Status: Active Protocol: Activity Type Activity Date Activity User E-sign Co-sign Detail Recorded Client Recorded Date Recorded By Document 10/12/22 08:59 BMF [id number] 10/12/22 09:18 BMF Document 10/16/22 08:51 DL [id number] 10/16/22 08:55 DL Document 10/19/22 09:22 BM [id number] 10/19/22 09:44 BMF Document 10/26/22 09:32 AK [id number] 10/26/22 09:34 AK Document 11/02/22 09:21 BM [id number] 11/02/22 09:31 BMF 10/12/22 10/16/22 10/19/22 08:59 08:51 09:22 Wound Center Nurse 1 #8- r 2nd toe -Combined with other wound No No -Current Size (cm) - Length 0.5 0.1 -Current Size (cm) - Width 0.5 0.1 -Current Size (cm) - Depth 0.2 0.1 -Total Square Cm 0.25 0.01 -Date of Last Picture (Recall this 10/12/22 10/19/22 field) -Photo Taken Yes Yes -Epithelialization None Present Large 67-100% -Tunneling No -Undermining/Tunneling No -Circular Undermining No -Exudate Amt Small Small -Exudate Type Serosanguineous Serosanguineous -Wound Margin Distinct, Distinct, Outline Outline Attached Attached -Granulation Amt Small (1-33%) -Granulation Quality Red -Slough/Fibrin Yes -Necrosis Amt Large (67-100%) -Necrotic Tissue Type Adherent Slough -Texture (Marva-wound Skin Appearance) Assessed, Localized Edema Assessed, Scarring ,Scarring Scarring -Moisture (Marva-wound Skin Appearance) Assessed Dry/Scaly Assessed,Dry/ Scaly -Color (Marva-wound Skin Appearance) Assessed, Hemosiderin Assessed Erythema Staining -Temperature (Marva-wound Skin No Abnormality No Abnormality No Abnormality Appearance) (Pt Warm) (Pt Warm) (Pt Warm) -Tenderness on Palpation (Marva-wound No No Skin Appearance) -Ulcer Cleansing Soap and Water Soap and Water Soap and Water -Foul Odor after Cleansing No No No -Anesthetic Used 5% Lidocaine Gel #7 R HEEL -Combined with other wound No -Current Size (cm) - Length 1.8 -Current Size (cm) - Width 2 -Current Size (cm) - Depth 0.1 -Total Square Cm 3.6 -Date of Last Picture (Recall this 10/19/22 field) -Photo Taken Yes -Epithelialization None Present -Tunneling No -Undermining/Tunneling No -Circular Undermining No -Change in Wound Grade/Stage -Exudate Amt Small -Exudate Type Serosanguineous -Wound Margin Distinct, Outline Attached -Granulation Amt Large (67-100%) -Granulation Quality Red -Slough/Fibrin Yes -Necrosis Amt Small (1-33%) -Necrotic Tissue Type Adherent Slough -Structure Exposed -Texture (Marva-wound Skin Appearance) Assessed, Scarring -Moisture (Marva-wound Skin Appearance) No Abnormality, Dry/Scaly -Color (Marva-wound Skin Appearance) Assessed -Temperature (Marva-wound Skin No Abnormality Appearance) (Pt Warm) -Tenderness on Palpation (Marva-wound No Skin Appearance) -Ulcer Cleansing Soap and Water -Foul Odor after Cleansing No -Anesthetic Used 5% Lidocaine Gel #5- L LAT POST LEG -Combined with other wound No -Current Size (cm) - Length 0.1 -Current Size (cm) - Width 0.1 -Current Size (cm) - Depth 0.1 -Total Square Cm 0.01 -Date of Last Picture (Recall this 10/12/22 field) -Photo Taken Yes -Epithelialization Large 67-100% -Tunneling No -Undermining/Tunneling No -Circular Undermining No -Exudate Amt None Present -Texture (Marva-wound Skin Appearance) Assessed, Scarring -Moisture (Marva-wound Skin Appearance) Assessed,Dry/ Scaly -Color (Marva-wound Skin Appearance) Assessed -Ulcer Cleansing Soap and Water -Foul Odor after Cleansing No #4- L POST LE -Combined with other wound No No -Current Size (cm) - Length 0.2 3.5 -Current Size (cm) - Width 0.2 2.3 -Current Size (cm) - Depth 0.1 0.1 -Total Square Cm 0.04 8.05 -Date of Last Picture (Recall this 10/12/22 10/19/22 field) -Photo Taken Yes Yes -Epithelialization Medium 34-66% Small 1-33% -Tunneling No No -Undermining/Tunneling No No -Circular Undermining No No -Exudate Amt Small Small -Exudate Type Serosanguineous Serosanguineous -Wound Margin Distinct, Flat & Intact Outline Attached -Granulation Amt Large (67-100%) Small (1-33%) -Granulation Quality Red Red -Slough/Fibrin Yes Yes -Necrosis Amt Small (1-33%) Large (67-100%) -Necrotic Tissue Type Adherent Slough Adherent Slough -Texture (Marva-wound Skin Appearance) Assessed, Localized Edema Assessed, Scarring ,Scarring Scarring -Moisture (Marva-wound Skin Appearance) Assessed,Dry/ Dry/Scaly Assessed,Dry/ Scaly Scaly -Color (Marva-wound Skin Appearance) Assessed Hemosiderin Assessed Staining -Temperature (Marva-wound Skin No Abnormality No Abnormality No Abnormality Appearance) (Pt Warm) (Pt Warm) (Pt Warm) -Tenderness on Palpation (Marva-wound No No Skin Appearance) -Ulcer Cleansing Soap and Water Soap and Water Soap and Water -Foul Odor after Cleansing No No No -Anesthetic Used 5% Lidocaine 5% Lidocaine Gel Gel #3- L LAT ANKLE/FOOT -Combined with other wound No -Current Size (cm) - Length 0.1 -Current Size (cm) - Width 0.1 -Current Size (cm) - Depth 0.1 -Total Square Cm 0.01 -Date of Last Picture (Recall this 10/12/22 field) -Photo Taken Yes -Epithelialization Large 67-100% -Texture (Marva-wound Skin Appearance) Assessed -Moisture (Marva-wound Skin Appearance) Assessed -Color (Marva-wound Skin Appearance) Assessed -Temperature (Marva-wound Skin No Abnormality Appearance) (Pt Warm) -Tenderness on Palpation (Marva-wound No Skin Appearance) -Ulcer Cleansing Soap and Water -Foul Odor after Cleansing No #6- R LAT ANKLE cluster -Combined with other wound No No -Current Size (cm) - Length 3 0.5 -Current Size (cm) - Width 7 0.4 -Current Size (cm) - Depth 0.1 0.2 -Total Square Cm 21 0.20 -Date of Last Picture (Recall this 10/12/22 10/19/22 field) -Photo Taken Yes Yes -Epithelialization Small 1-33% Medium 34-66% -Tunneling No No -Undermining/Tunneling No No -Circular Undermining No No -Exudate Amt Medium Small Small -Exudate Type Serosanguineous Serosanguineous Serosanguineous -Wound Margin Distinct, Distinct, Distinct, Outline Outline Outline Attached Attached Attached -Granulation Amt Medium (34-66%) Large (67-100%) -Granulation Quality Red -Slough/Fibrin Yes Yes -Necrosis Amt Medium (34-66%) Small (1-33%) -Necrotic Tissue Type Adherent Slough Adherent Slough -Texture (Marva-wound Skin Appearance) Assessed, Localized Edema Assessed, Scarring ,Scarring Scarring -Moisture (Marva-wound Skin Appearance) Assessed Dry/Scaly Assessed -Color (Marva-wound Skin Appearance) Assessed, Hemosiderin Assessed Hemosiderin Staining Staining -Temperature (Marva-wound Skin No Abnormality No Abnormality No Abnormality Appearance) (Pt Warm) (Pt Warm) (Pt Warm) -Tenderness on Palpation (Marva-wound No No Skin Appearance) -Ulcer Cleansing Soap and Water Soap and Water Soap and Water -Foul Odor after Cleansing No No No -Anesthetic Used 5% Lidocaine 5% Lidocaine Gel Gel Lower Limb Edema Present Yes Right Calf (cm) 52.5 50 Point of measurement (cm from the medial instep) Right Ankle (cm) 36.1 33.7 Point of Measurement (cm from the medial instep) Right Foot (cm) 52.9 Left Calf (cm) 36.7 51.5 Left Ankle (cm) 35.5 10/26/22 11/02/22 09:32 09:21 Wound Center Nurse 1 #8- r 2nd toe -Combined with other wound No -Current Size (cm) - Length -Current Size (cm) - Width -Current Size (cm) - Depth -Total Square Cm -Date of Last Picture (Recall this field) -Photo Taken -Epithelialization -Tunneling -Undermining/Tunneling -Circular Undermining -Exudate Amt -Exudate Type -Wound Margin -Granulation Amt -Granulation Quality -Slough/Fibrin -Necrosis Amt -Necrotic Tissue Type -Texture (Marva-wound Skin Appearance) -Moisture (Marva-wound Skin Appearance) -Color (Marva-wound Skin Appearance) -Temperature (Marva-wound Skin Appearance) -Tenderness on Palpation (Marva-wound Skin Appearance) -Ulcer Cleansing -Foul Odor after Cleansing -Anesthetic Used #7 R HEEL -Combined with other wound No -Current Size (cm) - Length 0.4 -Current Size (cm) - Width 0.4 -Current Size (cm) - Depth 0.1 -Total Square Cm 0.16 -Date of Last Picture (Recall this field) -Photo Taken No -Epithelialization -Tunneling No -Undermining/Tunneling No -Circular Undermining No -Change in Wound Grade/Stage No -Exudate Amt Medium -Exudate Type Serosanguineous -Wound Margin Distinct, Outline Attached -Granulation Amt Large (67-100%) -Granulation Quality Red -Slough/Fibrin Yes -Necrosis Amt Small (1-33%) -Necrotic Tissue Type Adherent Slough -Structure Exposed N/A -Texture (Marva-wound Skin Appearance) Assessed,Callus ,Excoriation -Moisture (Marva-wound Skin Appearance) Assessed,Dry/ Scaly -Color (Marva-wound Skin Appearance) No Abnormality, Assessed -Temperature (Marva-wound Skin No Abnormality Appearance) (Pt Warm) -Tenderness on Palpation (Marva-wound Yes Skin Appearance) -Ulcer Cleansing Soap and Water -Foul Odor after Cleansing No -Anesthetic Used 5% Lidocaine Gel #5- L LAT POST LEG -Combined with other wound -Current Size (cm) - Length -Current Size (cm) - Width -Current Size (cm) - Depth -Total Square Cm -Date of Last Picture (Recall this field) -Photo Taken -Epithelialization -Tunneling -Undermining/Tunneling -Circular Undermining -Exudate Amt -Texture (Marva-wound Skin Appearance) -Moisture (Marva-wound Skin Appearance) -Color (Marva-wound Skin Appearance) -Ulcer Cleansing -Foul Odor after Cleansing #4- L POST LE -Combined with other wound -Current Size (cm) - Length -Current Size (cm) - Width -Current Size (cm) - Depth -Total Square Cm -Date of Last Picture (Recall this field) -Photo Taken -Epithelialization -Tunneling -Undermining/Tunneling -Circular Undermining -Exudate Amt -Exudate Type -Wound Margin -Granulation Amt -Granulation Quality -Slough/Fibrin -Necrosis Amt -Necrotic Tissue Type -Texture (Marva-wound Skin Appearance) -Moisture (Marva-wound Skin Appearance) -Color (Marva-wound Skin Appearance) -Temperature (Marva-wound Skin Appearance) -Tenderness on Palpation (Marva-wound Skin Appearance) -Ulcer Cleansing -Foul Odor after Cleansing -Anesthetic Used #3- L LAT ANKLE/FOOT -Combined with other wound -Current Size (cm) - Length -Current Size (cm) - Width -Current Size (cm) - Depth -Total Square Cm -Date of Last Picture (Recall this field) -Photo Taken -Epithelialization -Texture (Marva-wound Skin Appearance) -Moisture (Marva-wound Skin Appearance) -Color (Marva-wound Skin Appearance) -Temperature (Marva-wound Skin Appearance) -Tenderness on Palpation (Marva-wound Skin Appearance) -Ulcer Cleansing -Foul Odor after Cleansing #6- R LAT ANKLE cluster -Combined with other wound No -Current Size (cm) - Length 0.1 -Current Size (cm) - Width 0.1 -Current Size (cm) - Depth 0.1 -Total Square Cm 0.01 -Date of Last Picture (Recall this 11/02/22 field) -Photo Taken Yes -Epithelialization Large 67-100% -Tunneling No -Undermining/Tunneling No -Circular Undermining No -Exudate Amt None Present -Exudate Type -Wound Margin -Granulation Amt -Granulation Quality -Slough/Fibrin -Necrosis Amt -Necrotic Tissue Type -Texture (Marva-wound Skin Appearance) Assessed, Scarring -Moisture (Marva-wound Skin Appearance) Assessed,Dry/ Scaly -Color (Marva-wound Skin Appearance) Assessed -Temperature (Marva-wound Skin No Abnormality Appearance) (Pt Warm) -Tenderness on Palpation (Marva-wound No Skin Appearance) -Ulcer Cleansing Soap and Water -Foul Odor after Cleansing No -Anesthetic Used 5% Lidocaine Gel Lower Limb Edema Present Yes Right Calf (cm) 51 Point of measurement (cm from the medial 53 instep) Right Ankle (cm) 34.1 Point of Measurement (cm from the medial 36 instep) Right Foot (cm) Left Calf (cm) 55 54 Left Ankle (cm) 36 36 WC - Nurse 2 - General Ulcer CM Notes Start: 10/12/22 08:59 Freq: Status: Active Protocol: Activity Type Activity Date Activity User E-sign Co-sign Detail Recorded Client Recorded Date Recorded By Document 10/12/22 09:31 MW [id number] 10/12/22 09:48 MW Document 10/19/22 09:51 MW [id number] 10/19/22 10:21 MW Document 10/26/22 09:42 MW Desktop 10/26/22 09:50 MW Document 11/02/22 09:56 MW [id number] 11/02/22 10:05 MW 10/12/22 10/19/22 10/26/22 09:31 09:51 09:42 Wound Center Nurse 2 #8- r 2nd toe -Time 09:32 09:52 09:49 -Correct Patient Yes Yes Yes -Correct Side, Site, Position Yes Yes Yes -Correct Procedure Yes Yes Yes -Procedure Performed Yes Yes No -Type of Procedure Debridement Debridement -Clinical Debridement Subcutaneous Subcutaneous -Tissue Removed Subcutaneous Subcutaneous -Post Debridement (cm) - Length 0.8 0.4 0 -Post Debridement (cm) - Width 0.2 1.0 0 -Post Debridement (cm) - Depth 0.1 0.1 0 -Total Square (Post) (cm) 0.16 0.40 0 -Area of Debridement (cm) - Length 0.8 0.4 -Area of Debridement (cm) - Width 0.2 1.0 -Total Square (Area) (cm) 0.16 0.40 -Tunneling No No -Undermining/Tunneling No -Circular Undermining No No -Wound/Ulcer Outcome Not Healed Not Healed Healed- Epithelialized -Ulcer Cleansing Rinsed/ Rinsed/ Irrigated with Irrigated with Saline Saline -Foul Odor after Cleansing No No -Bioengineered Tissue No No -Bleeding Controlled with Pressure Pressure -Treatment Response Procedure Procedure Tolerated Well Tolerated Well -Offloading No No -Debridement - Subq, 1st 20sq cm Yes No -Debridement, SubQ, ea addt'l 20sq cm 3 or part thereof #7 R HEEL -Time 09:53 09:46 -Correct Patient Yes Yes -Correct Side, Site, Position Yes Yes -Correct Procedure Yes Yes -Procedure Performed No No -Post Debridement (cm) - Length 0 0 -Post Debridement (cm) - Width 0 0 -Post Debridement (cm) - Depth 0 -Total Square (Post) (cm) 0 0 -Area of Debridement (cm) - Length 0 -Area of Debridement (cm) - Width 1.0 -Total Square (Area) (cm) 0 -Tunneling No No -Undermining/Tunneling No No -Circular Undermining No -Wound/Ulcer Outcome Healed- Healed- Epithelialized Epithelialized #5- L LAT POST LEG -Time 09:33 -Correct Patient Yes -Correct Side, Site, Position Yes -Correct Procedure Yes -Procedure Performed No -Post Debridement (cm) - Length 0 -Post Debridement (cm) - Width 0 -Total Square (Post) (cm) 0 -Tunneling No -Undermining/Tunneling No -Circular Undermining No -Wound/Ulcer Outcome Healed- Epithelialized #4- L POST LE -Time 09:34 09:54 09:49 -Correct Patient Yes Yes Yes -Correct Side, Site, Position Yes Yes Yes -Correct Procedure Yes Yes Yes -Procedure Performed Yes No No -Type of Procedure Debridement Debridement -Clinical Debridement Subcutaneous Subcutaneous -Tissue Removed Subcutaneous Subcutaneous -Post Debridement (cm) - Length 5.5 0.1 0 -Post Debridement (cm) - Width 4.0 0.1 0 -Post Debridement (cm) - Depth 0.1 0.1 0 -Total Square (Post) (cm) 22.00 0.01 0 -Area of Debridement (cm) - Length 5.5 0.1 -Area of Debridement (cm) - Width 4.0 0.1 -Total Square (Area) (cm) 22.00 0.01 -Tunneling No No -Undermining/Tunneling No No -Circular Undermining No No -Wound/Ulcer Outcome Not Healed Not Healed Healed- Epithelialized -Ulcer Cleansing Rinsed/ Rinsed/ Irrigated with Irrigated with Saline Saline -Foul Odor after Cleansing No No -Bioengineered Tissue No No -Bleeding Controlled with Pressure Pressure -Treatment Response Procedure Procedure Tolerated Well Tolerated Well -Offloading No No -Debridement - Subq, 1st 20sq cm No No #3- L LAT ANKLE/FOOT -Time 09:35 -Correct Patient Yes -Correct Side, Site, Position Yes -Correct Procedure Yes -Procedure Performed No -Post Debridement (cm) - Length 0 -Post Debridement (cm) - Width 0 -Post Debridement (cm) - Depth 0 -Total Square (Post) (cm) 0 -Tunneling No -Undermining/Tunneling No -Circular Undermining No -Wound/Ulcer Outcome Healed- Epithelialized -Bleeding Controlled with Pressure,Silver Nitrate #6- R LAT ANKLE cluster -Time 09:33 09:53 09:48 -Correct Patient Yes Yes Yes -Correct Side, Site, Position Yes Yes Yes -Correct Procedure Yes Yes Yes -Procedure Performed Yes Yes Yes -Type of Procedure Debridement Debridement Debridement -Clinical Debridement Subcutaneous Subcutaneous Subcutaneous -Tissue Removed Subcutaneous Subcutaneous Subcutaneous -Post Debridement (cm) - Length 3.5 2.8 0.8 -Post Debridement (cm) - Width 8.0 7.0 1.0 -Post Debridement (cm) - Depth 0.1 0.1 0.1 -Total Square (Post) (cm) 28.00 19.60 0.80 -Area of Debridement (cm) - Length 3.5 2.8 0.8 -Area of Debridement (cm) - Width 8.0 7.0 1.0 -Total Square (Area) (cm) 28.00 19.60 0.80 -Tunneling No No No -Undermining/Tunneling No No No -Circular Undermining No No No -Wound/Ulcer Outcome Not Healed Not Healed Not Healed -Ulcer Cleansing Rinsed/ Rinsed/ Rinsed/ Irrigated with Irrigated with Irrigated with Saline Saline Saline -Foul Odor after Cleansing No No No -Bioengineered Tissue No No No -Bleeding Controlled with Pressure,Silver Pressure Pressure Nitrate -Treatment Response Procedure Procedure Procedure Tolerated Well Tolerated Well Tolerated Well -Offloading No No No -Debridement - Subq, 1st 20sq cm No Yes Yes Pain Scale: 0-10 Numeric Is Patient Pain Free? Yes Yes Yes 11/02/22 09:56 Wound Center Nurse 2 #8- r 2nd toe -Time -Correct Patient -Correct Side, Site, Position -Correct Procedure -Procedure Performed -Type of Procedure -Clinical Debridement -Tissue Removed -Post Debridement (cm) - Length -Post Debridement (cm) - Width -Post Debridement (cm) - Depth -Total Square (Post) (cm) -Area of Debridement (cm) - Length -Area of Debridement (cm) - Width -Total Square (Area) (cm) -Tunneling -Undermining/Tunneling -Circular Undermining -Wound/Ulcer Outcome -Ulcer Cleansing -Foul Odor after Cleansing -Bioengineered Tissue -Bleeding Controlled with -Treatment Response -Offloading -Debridement - Subq, 1st 20sq cm -Debridement, SubQ, ea addt'l 20sq cm or part thereof #7 R HEEL -Time -Correct Patient -Correct Side, Site, Position -Correct Procedure -Procedure Performed -Post Debridement (cm) - Length -Post Debridement (cm) - Width -Post Debridement (cm) - Depth -Total Square (Post) (cm) -Area of Debridement (cm) - Length -Area of Debridement (cm) - Width -Total Square (Area) (cm) -Tunneling -Undermining/Tunneling -Circular Undermining -Wound/Ulcer Outcome #5- L LAT POST LEG -Time -Correct Patient -Correct Side, Site, Position -Correct Procedure -Procedure Performed -Post Debridement (cm) - Length -Post Debridement (cm) - Width -Total Square (Post) (cm) -Tunneling -Undermining/Tunneling -Circular Undermining -Wound/Ulcer Outcome #4- L POST LE -Time -Correct Patient -Correct Side, Site, Position -Correct Procedure -Procedure Performed -Type of Procedure -Clinical Debridement -Tissue Removed -Post Debridement (cm) - Length -Post Debridement (cm) - Width -Post Debridement (cm) - Depth -Total Square (Post) (cm) -Area of Debridement (cm) - Length -Area of Debridement (cm) - Width -Total Square (Area) (cm) -Tunneling -Undermining/Tunneling -Circular Undermining -Wound/Ulcer Outcome -Ulcer Cleansing -Foul Odor after Cleansing -Bioengineered Tissue -Bleeding Controlled with -Treatment Response -Offloading -Debridement - Subq, 1st 20sq cm #3- L LAT ANKLE/FOOT -Time -Correct Patient -Correct Side, Site, Position -Correct Procedure -Procedure Performed -Post Debridement (cm) - Length -Post Debridement (cm) - Width -Post Debridement (cm) - Depth -Total Square (Post) (cm) -Tunneling -Undermining/Tunneling -Circular Undermining -Wound/Ulcer Outcome -Bleeding Controlled with #6- R LAT ANKLE cluster -Time 09:56 -Correct Patient Yes -Correct Side, Site, Position Yes -Correct Procedure Yes -Procedure Performed Yes -Type of Procedure Debridement -Clinical Debridement Subcutaneous -Tissue Removed Subcutaneous -Post Debridement (cm) - Length 0.1 -Post Debridement (cm) - Width 0.1 -Post Debridement (cm) - Depth 0.1 -Total Square (Post) (cm) 0.01 -Area of Debridement (cm) - Length 0.1 -Area of Debridement (cm) - Width 0.1 -Total Square (Area) (cm) 0.01 -Tunneling No -Undermining/Tunneling No -Circular Undermining No -Wound/Ulcer Outcome Not Healed -Ulcer Cleansing Rinsed/ Irrigated with Saline -Foul Odor after Cleansing No -Bioengineered Tissue No -Bleeding Controlled with Pressure -Treatment Response Procedure Tolerated Well -Offloading No -Debridement - Subq, 1st 20sq cm Yes Pain Scale: 0-10 Numeric Is Patient Pain Free? Yes WC - Nurse 3 - General Ulcer D/C NN Start: 10/12/22 08:59 Freq: Status: Active Protocol: Activity Type Activity Date Activity User E-sign Co-sign Detail Recorded Client Recorded Date Recorded By Document 10/12/22 10:13 [facility] [id number] 10/12/22 10:15 [facility] Document 10/16/22 08:51 DL [id number] 10/16/22 08:55 DL Document 10/19/22 10:28 [facility] [id number] 10/19/22 10:29 [facility] Document 10/24/22 13:03 [place] [id number] 10/24/22 13:06 [place] Document 10/24/22 13:06 [place] [id number] 10/24/22 13:07 [place] Document 11/02/22 10:39 DL [id number] 11/02/22 10:39 DL 10/12/22 10/16/22 10/19/22 10:13 08:51 10:28 [facility] Nurse 3 #8- r 2nd toe -Ulcer Cleansing Soap and Water Soap and Water Soap and Water -Foul Odor after Cleansing No No -Negative Pressure Wound Therapy -Primary Dressing Applied Aquacel Extra Aquacel AG 4x4 Aquacel Extra -Other Dressing PER DL SUBPOENA SERVER -Primary Dressing Covered/Secured with Dry Gauze, Dry Gauze, Secured with Secured with Tape Tape -Other Covering UNNA BOOT -Aquacel Extra 0 1 -Aquacel AG 4x4 1 #4- L POST LE -Ulcer Cleansing Rinsed/ Soap and Water Soap and Water Irrigated with Saline -Foul Odor after Cleansing No No No -Negative Pressure Wound Therapy -Primary Dressing Applied Aquacel Extra Aquacel Extra -Other Dressing unna aqaucel Ag UNNA BOOT; PER DL SUBPOENA SERVER -Primary Dressing Covered/Secured with Dry Gauze & Roll Gauze, Secured with Tape -Aquacel Extra 0 0 #6- R LAT ANKLE cluster -Ulcer Cleansing Rinsed/ Soap and Water Soap and Water Irrigated with Saline -Foul Odor after Cleansing No No No -Primary Dressing Applied Aquacel Extra Aquacel Extra -Other Dressing unna aqaucel Ag UNNA BOOT; PER DL SUBPOENA SERVER -Primary Dressing Covered/Secured with Dry Gauze, Secured with Tape -Aquacel Extra 1 0 ble -Lotion applied to leg before compression wrap -Multi-Layered Wrap Application Unna Boot - Multi-Layer Unna Boot - Bilateral ($) Comp - Bilat ($ Bilateral ($) ) Treatment Response Procedure Procedure Not Procedure Tolerated Well Tolerated Well Tolerated Well Vital Signs Temperature (97.8 F-99.1 F) 973 F H Temperature Source Temporal Pulse Rate (60-100) 91 Pulse Location Monitor Respiratory Rate (12-18) 20 H Respiratory rate source Observation Blood Pressure (90/60-120/80) 137/100 H Blood Pressure Mean (mm Hg) 112 Source Monitor Pain Scale: 0-10 Numeric Is Patient Pain Free? Yes Yes Yes WC - Visit Discharge Discharge Condition Stable Stable Stable Ambulatory Status Ambulatory Ambulatory Ambulatory Transportation Private Auto Private Auto Private Auto Medication Reconcilliation completed & provided to patient/care provider Clinical Summary of Care Provided Notes: 10/24/22 10/24/22 11/02/22 13:03 13:06 10:39 Wound Care Center Nurse 3 #8- r 2nd toe -Ulcer Cleansing Soap and Water -Foul Odor after Cleansing No -Negative Pressure Wound Therapy N/A -Primary Dressing Applied Aquacel Extra -Other Dressing -Primary Dressing Covered/Secured with -Other Covering -Aquacel Extra 1 -Aquacel AG 4x4 #4- L POST LE -Ulcer Cleansing Soap and Water -Foul Odor after Cleansing No -Negative Pressure Wound Therapy N/A -Primary Dressing Applied -Other Dressing aquacel extra -Primary Dressing Covered/Secured with -Aquacel Extra #6- R LAT ANKLE cluster -Ulcer Cleansing Soap and Water Soap and Water -Foul Odor after Cleansing -Primary Dressing Applied -Other Dressing aquacel extra -Primary Dressing Covered/Secured with -Aquacel Extra ble -Lotion applied to leg before No compression wrap -Multi-Layered Wrap Application Unna Boot - Unna Boot - Bilateral ($) Bilateral ($) Treatment Response Procedure Tolerated Well Vital Signs Temperature (97.8 F-99.1 F) 97.1 F L Temperature Source Temporal Pulse Rate (60-100) 98 Pulse Location Monitor Respiratory Rate (12-18) Respiratory rate source Blood Pressure (90/60-120/80) 137/81 H Blood Pressure Mean (mm Hg) 99 Source Monitor Pain Scale: 0-10 Numeric Is Patient Pain Free? Yes Yes Yes WC - Visit Discharge Discharge Condition Stable Stable Ambulatory Status Ambulatory Transportation Private Auto Private Auto Medication Reconcilliation completed & Yes provided to patient/care provider Clinical Summary of Care Provided Yes Notes: shanique applied wraps Assessment/Plan Assessment/Plan (1) Ulcer of left lower extremity with fat layer exposed: CODE(S): L97.922 - Non-pressure 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 layer exposed (2) Ulcer of right lower extremity with fat layer exposed: CODE(S): L97.912 - Non-pressure chronic ulcer of unspecified part of right lower leg with fat layer exposed (3) Lymphedema: CODE(S): I89.0 - Lymphedema, not elsewhere classified (4) Homeless single person: CODE(S): Z59.0 - Homelessness PLAN: Plan Debridement done as documented above, procedure was well-tolerated. Continues to show good improvement. Left Lower Extremity stays healed. Right with minimal area left. Continue Unna boot to both lower extremities. Leave in place x 1 week. Leg elevation, exercise as tolerated discussed, he voiced understanding. Optimal protein intake also recommended. His questions were answered and he was advised to call with any further questions or concerns. Follow-up for a nurse visit in 1 week and with me in 2 weeks. This note was generated with [employer] dictation software. It may contain incorrect words, spelling, and punctuation that were not noted in checking the note before signing.
== END 2022-11-10 23:59 | disposition home or self-care (01) ==
LOC: WC 09:15
PROVIDERS: Visit Provider Internal Medicine
DX: L97.822 Non-pressure chronic ulcer of other part of left lower leg with fat layer exposed (principal); L97.512 Non-pressure chronic ulcer of other part of right foot with fat layer exposed; L97.422 Non-pressure chronic ulcer of left heel and midfoot with fat layer exposed; I89.0 Lymphedema, not elsewhere classified; Z59.02 Unsheltered homelessness
CPT/HCPCS: 11042; 11045; 29580; 29581; 97597

== ENCOUNTER 2022-11-16 09:43 | Outpatient (RCR) | payer MEDICARE, MEDICAID, SELFPAY ==
[2022-11-11 01:33] VITALS: BP 165/94; PULSE 91; RESP 16; TEMP 36.5; BMI 47.4
[2022-11-16 10:05] VITALS: BP 135/86; PULSE 93; RESP 16; TEMP 36.6; BMI 47.4
--- NOTE | 2022-11-16 13:04 | PCM.WC.PN ---
History of Present Illness Date of Service: 11/16/22 Chief Complaint: Bilateral lower extremity ulcers. History of Wound: Mr. Beltran is a 67 yo who was referred to the wound center due to bilateral lower extremity ulcer. Clinic history of lymphedema. He is currently homeless and has been living in his van. He states that over the recent months, he has been sitting a lot more is not as active as it should be. He also states that he has not been using his compression. Recently seen at the emergency room due to concern for feeling unwell, he was started on antibiotics and has 1 more day of it. Tolerating antibiotic well. Initially had a lot of drainage from his ulcers but he states that this has improved. No known history of diabetes. No chills, fever or feeling of unwell at this time. Progress of Wound: No new concerns at this time. Had his Unna boot on till yesterday. He states that he had been walking more lately. Ulcers are healed. Objective Data Objective Data Vital Signs: Vital Signs Temp Pulse Resp BP 97.9 F 93 16 135/86 H 11/16/22 10:05 11/16/22 10:05 11/16/22 10:05 11/16/22 10:05 Weight: 340 lb Body Mass Index (BMI) 47.4 Charges/Coding Visit Charges Office Visits / Consults: 17235 OV L3 Est Physical Exam Const alert, oriented x3 and no apparent distress General Appearance: cooperative and comfortable HEENT normocephalic, head/scalp atraumatic and hearing grossly normal bilaterally Eyes EOMs intact bilaterally Neck full ROM Resp normal respiratory effort Effort and Inspection: able to speak in complete sentences Extremity General Extremity: edema Neuro oriented x3, CN's II-XII intact bilaterally and moves all extremities Psych mental status grossly normal, thought process normal, cooperative and affect normal Debridement Note Debridement Note Post-Debridement Measurements and Additional Note: Post-Debridement Measurements/Treatment PHOEBE - Nurse 1 - General Ulcer Assessment Start: 11/16/22 10:05 Freq: Status: Active Protocol: WILLIAM Activity Type Activity Date Activity User E-sign Co-sign Detail Recorded Client Recorded Date Recorded By Document 11/16/22 10:05 TIA [id number] 11/16/22 10:15 TIA 11/16/22 10:05 PHOEBE - Today's Visit Information Type of service Follow-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 ) Arrival Mode Ambulatory Patient Identification Verified (Name & Yes ) Patient Requires Transmission-Based Yes Precautions Safety Precautions NA Height and Weight Body Mass Index (BMI) 47.4 BMI Classification Obese Vital Signs Temperature (97.8 F-99.1 F) 97.9 F Temperature Source Temporal Pulse Rate (60-100) 93 Pulse Location Monitor Respiratory Rate (12-18) 16 Respiratory rate source Observation Blood Pressure (90/60-120/80) 135/86 H Blood Pressure Mean (mm Hg) 102 Source Monitor Position Semi-Fowlers Blood Pressure Location Left Arm History Since Last Visit- (Skip if this is Patient's initial visit) Have you changed medications since your No last visit? Any new allergies or adverse reactions No Had a fall/change in ADL's that may No increase risk of falls Signs or symptoms of abuse and/or No neglect since last visit Have you been in the hospital since your No last visit? Has dressing in place as prescribed Yes Has compression in place as prescribed Yes Has offloadiing in place as prescribed N/A Experienced any changes in pain level or No management Left Footwear Surgical Shoe with pressure relief insole Right Footwear Surgical Shoe with pressure relief insole Pain Scale: 0-10 Numeric Is Patient Pain Free? Yes - Nurse 1 - General Ulcer Measurement Start: 11/16/22 10:05 Freq: Status: Active Protocol: Activity Type Activity Date Activity User E-sign Co-sign Detail Recorded Client Recorded Date Recorded By Document 11/16/22 10:05 TIA [id number] 11/16/22 10:15 TIA 11/16/22 10:05 Wound Center Nurse 1 #6- R LAT ANKLE cluster -Combined with other wound No -Current Size (cm) - Length 0 -Current Size (cm) - Width 0 -Current Size (cm) - Depth 0 -Total Square Cm 0 -Photo Taken Yes -Epithelialization Large 67-100% Lower Limb Edema Present Yes Right Calf (cm) 52.5 Right Ankle (cm) 32.5 Left Calf (cm) 57 Left Ankle (cm) 36 - Nurse 2 - General Ulcer CM Notes Start: 11/16/22 10:05 Freq: Status: Active Protocol: Activity Type Activity Date Activity User E-sign Co-sign Detail Recorded Client Recorded Date Recorded By Document 11/16/22 11:01 EARLINE [id number] 11/16/22 11:04 11/16/22 11:01 Wound Center Nurse 2 #6- R LAT ANKLE cluster -Time 11:01 -Correct Patient Yes -Correct Side, Site, Position Yes -Correct Procedure Yes -Procedure Performed No -Post Debridement (cm) - Length 0 -Post Debridement (cm) - Width 0 -Post Debridement (cm) - Depth 0 -Total Square (Post) (cm) 0 -Wound/Ulcer Outcome Healed- Epithelialized Pain Scale: 0-10 Numeric Is Patient Pain Free? Yes - Nurse 3 - General Ulcer D/C NN Start: 11/16/22 10:05 Freq: Status: Active Protocol: Activity Type Activity Date Activity User E-sign Co-sign Detail Recorded Client Recorded Date Recorded By Document 11/16/22 12:07 TIA [id number] 11/16/22 12:08 TIA 11/16/22 12:07 Wound Care Center Nurse 3 Right -Tubular Bandage Double Layer -Size of Tubigrip Used Size F -Size F ($) 2 Left -Tubular Bandage Double Layer -Size of Tubigrip Used Size F -Size F ($) 2 Pain Scale: 0-10 Numeric Is Patient Pain Free? Yes WC - Visit Discharge Discharge Condition Stable Ambulatory Status Ambulatory Transportation Private Auto Medication Reconcilliation completed & Yes provided to patient/care provider Clinical Summary of Care Provided Yes Assessment/Plan Assessment/Plan (1) Ulcer of left lower extremity with fat layer exposed: CODE(S): L97.922 - Non-pressure 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 layer exposed (2) Ulcer of right lower extremity with fat layer exposed: CODE(S): L97.912 - Non-pressure chronic ulcer of unspecified part of right lower leg with fat layer exposed (3) Lymphedema: CODE(S): I89.0 - Lymphedema, not elsewhere classified (4) Homeless single person: CODE(S): Z59.0 - Homelessness PLAN: Plan No debridement completed today. Ulcers are healed. Prescription for 30 - 40 mmHg compression stockings given. In the meantime, double layer tubigrips recommended. Leg elevation, exercise as tolerated discussed, he voiced understanding. Optimal protein intake also recommended. His questions were answered and he was advised to call with any further questions or concerns. Discharge from the wound center. This note was generated with [employer] software. It may contain incorrect words, spelling, and punctuation that were not noted in checking the note before signing.
== END 2022-11-17 11:53 | disposition home or self-care (01) ==
LOC: WC 09:43
PROVIDERS: Visit Provider Internal Medicine
DX: Z09 Encounter for follow-up examination after completed treatment for conditions other than malignant neoplasm (principal); I89.0 Lymphedema, not elsewhere classified; Z59.02 Unsheltered homelessness
CPT/HCPCS: 99212; G0463

== ENCOUNTER 2023-07-02 15:55 | Emergency (ER) | payer MEDICARE, MEDICAID, SELFPAY ==
[2023-07-02] VITALS (7 sets, daily range): BP systolic 93–154; BP diastolic 42–65; PULSE 98–104; RESP 17–20; TEMP 36.1–36.6; O2SAT 91–95
--- NOTE | 2023-07-02 16:25 | RAD_ITS ---
STUDY: X-RAY - LEFT FOOT CLINICAL: Male, 68 years old. Injury/Pain TECHNIQUE: 3 view(s) of the foot. COMPARISON: None. FINDINGS: Normal talus, and tarsal bones. Small posterior calcaneal enthesophyte Normal visualized subtalar, talonavicular, calcaneocuboid, tarsal and tarsometatarsal articulations. Normal metatarsi. Normal metatarsophalangeal joint of the great toe. Normal tibial and fibular sesamoid bones. Normal interphalangeal joint of the great toe. Normal phalanges of the great toe. Normal second through fifth metatarsophalangeal joints. Normal interphalangeal joints and phalanges of the lesser toes. Severe diffuse soft tissue swelling the dorsal surface of the foot as well as mild soft tissue thickening of the heel. RAD/Foot min 3 Views IMPRESSION: Soft tissue swelling without evidence for acute fracture or dislocation. No definitive radiographic evidence for acute osteomyelitis Electronically Signed: Alejandro Christie MD at 17:09 EST ,
[2023-07-02 16:57] LABS: Absolute Lymphocyte Count 0.57 X10^3/uL (0.83-4.51); Absolute Neutrophil Count 10.7 X10^3/uL (2.0-7.7); Basophil# 0.08 X10^3/uL; Basophil% 0.6 % (0-1); Eosinophil# 0.04 X10^3/uL; Eosinophils% 0.3 % (0-5); Hematocrit 41.4 % (40-54); Hemoglobin 13.5 g/dL (13.0-16.5); Lymphocyte # 0.57 X10^3/ul (0.83-4.51); Lymphocyte % 4.5 % (19-41); Mean Corp Hgb Conc 32.6 g/dL (32-36); Mean Corpuscular Hgb 28.9 pg (27.0-32.0); Mean Corpuscular Volume 88.7 fL (80-94); Mean Platelet Vol. 9.5 fl (6.2-12.0); Monocyte# 1.16 X10^3/uL; Monocyte% 9.2 % (0-10); NRBC Flagged by Analyzer 0 % (0-5); Neutrophil # 10.71 X10^3/uL (2.7-7.7); Neutrophil % 84.8 % (47-70); POSITIVE DIFFERENTIAL YES; Platelet Count 238 K/mm3 (150-450); RBC Distribution Width CV 13.1 % (11.6-14.6); RBC Distribution Width SD 42.4 fl (35.1-43.9); Red Blood Count 4.67 M/mm3 (4.6-6.2); White Blood Count 12.6 K/mm3 (4.4-11.0)
--- NOTE | 2023-07-02 17:03 | EDS_ITS ---
HPI History of Present Illness Chief Complaint: Wound Check Detail of Chief Complaint: Wound heel of left foot Informant: patient Onset/Context/Timing Onset: Days Context: Gradual Onset Timing: Continuous Quality: Wound plantar surface left heel Location: Plantar surface left heel Current Severity: Mild Maximum Severity: Mild Worsened by: Unknown Relieved by: Nothing Associated Symptoms Associated Symptoms: None Narrative Narrative: Patient is a 68-year-old male. He is homeless. He has lived in his van for the past 10 years. He has chronic lymphedema. He has a wound on the plantar surface of his left heel. He denies fever, chills night sweats. He denies orthopnea or PND. He denies chest discomfort. He denies history of congestive heart failure. Review of prior records indicates patient has history of chronic lymphedema with wounds of his lower extremities and cellulitis in the past. Prior similar symptoms: Yes Recent Illness/Hospitalization: No [facility] Medical History Lymphedema Ulcer of left lower extremity with fat layer exposed Ulcer of right lower extremity with fat layer exposed Home Medications furosemide 40 mg tablet (Lasix) 40 mg PO DAILY #30 tabs 09/22/22 [Rx Last Taken Unknown] Allergy/AdvReac Type Severity Reaction Status Date / Time No Known Allergies Allergy Verified 07/02/23 15:56 Social History (Updated 07/02/23 @ 17:[address] Marcus Sandoval MD) household members: none housing: homeless Smoking Status: Never smoker ROS ROS ED Constitutional Constitutional ED: Denies chills, fever(s), subjective, sweats or weight loss Eyes Eyes: Denies blurry vision, change in vision or diplopia ENT ENT ED: Denies ear pain, rhinorrhea or sore throat Cardiovascular Cardiovascular: Denies chest pain, orthopnea, palpitations, paroxysmal nocturnal dyspnea or racing heartbeat Respiratory/Chest Respiratory/Chest: Denies cough, dyspnea, dyspnea on exertion, orthopnea or paroxysmal nocturnal dyspnea Integumentary Reports other Details: Skin defect plantar surface left heel ; Denies abscess, Abrasions or rash Neurologic Neurologic: Denies headache(s) Endocrine Endocrinology: Denies cold intolerance or heat intolerance Hematologic/Lymphatic Hematologic/Lymphatic: Reports systems reviewed and no addt'l complaints, except as documented EXAM Physical Exam Const Vital Signs: 07/02/23 15:56 07/02/23 17:00 07/02/23 18:00 Temperature 97 F L Temperature Source Temporal Pulse Rate 104 H Respiratory Rate 20 H 20 H 20 H Blood Pressure 154/65 H 111/48 L 120/61 Blood Pressure Mean 94 67 77 Pulse Ox 94 91 93 Oxygen Delivery Method Room Air 07/02/23 18:45 07/02/23 19:00 07/02/23 19:15 Temperature Temperature Source Pulse Rate 98 Respiratory Rate 20 H 20 H Blood Pressure 112/54 L 93/49 L 94/42 L Blood Pressure Mean 72 63 58 Pulse Ox 92 92 92 Oxygen Delivery Method Positive well nourished, well developed, obese and unkempt General Appearance ED: unkempt, well developed and NAD Nutritional Appearance: obese HEENT Reports moist mucous membranes HEENT Narrative: Head is atraumatic and normocephalic. Ears normal. Nares patent. Eyes PERRL and EOMs intact bilaterally General Eye ED: Negative for pale conjunctiva or scleral icterus Neck no lymphadenopathy and supple Chest Wall inspection of chest normal and palpation of chest normal Resp normal respiratory effort and clear to auscultation bilaterally Cardio regular rate, regular rhythm, S1 normal heart sound, S2 normal heart sound and no murmurs GI normal to inspection, nondistended, normoactive bowel sounds, non-tender, non- distended and no masses; Negative for hepatosplenomegaly Auscultation: normoactive bowel sounds Back/Spine no CVA tenderness Cervical Spine: Negative for cervical spine tenderness Thoracic Spine / Upper Back: Negative for thoracic spinal tenderness Lumbar Spine / Lower Back: Negative for lumbar spinal tenderness Extremity Negative for normal to inspection Extremity Narrative: Patient has significant lymphedema with venous stasis changes and loss of tissue heel of left foot. This is down to viable tissue. There is no erythema, warmth or induration. Patient complains of pain in both the right and left foot. Neuro oriented x3, CN's II-XII intact bilaterally and no sensory deficits noted Sensorium / Orientation: alert Psych mental status grossly normal Appearance: unkempt Skin Skin Narrative: 3-1/2 cm x 4-1/2 cm skin avulsion plantar surface left heel without evidence of infection MDM MDM MDM Narrative Medical decision making narrative: Consult was placed to case management. Apparently they have gone home. Will obtain blood work to assess for anemia white count differential renal function etc. BMP was obtained to assess renal function and electrolytes. Inflammatory markers were obtained as well as x-ray to assess for evidence of infection i.e. osteomyelitis. History & Record Review Additional record(s) reviewed:: Prior ED visit (Seen September 2022 for hypokalemia. He has no other records available for review) and Prior labs Lab Data Attestation: I reviewed the patient's lab results. Lab results narrative: Patient's white count is slightly elevated. This is nonspecific. Basic metabolic panel is unremarkable. Lactate is elevated 2.1 which is nonspecific especially since wound does not appear infected. Sed rate is unremarkable once corrected for age. Labs: Laboratory Results - last 24 hr 07/02/23 16:45 WBC 12.6 H RBC 4.67 Hgb 13.5 Hct 41.4 MCV 88.7 MCH 28.9 MCHC 32.6 RDW Std Deviation 42.4 RDW Coeff of Thiago 13.1 Plt Count 238 MPV 9.5 Immature Gran % (Auto) 0.600 Neut % (Auto) 84.8 H Lymph % (Auto) 4.5 L [place] % (Auto) 9.2 Eos % (Auto) 0.3 Baso % (Auto) 0.6 Absolute Neuts (auto) 10.7 H Absolute Lymphs (auto) 0.57 L Nucleated RBC % 0 ESR 42 H Sodium 140 Potassium 3.2 L Chloride 110 H Carbon Dioxide 24.0 Anion Gap 6 BUN 17 Creatinine 1.15 Est GFR (MDRD) Af Amer 81 Est GFR (MDRD) Non-Af 67 BUN/Creatinine Ratio 14.8 Glucose 100 Lactic Acid 2.1 H* Calcium 9.1 Total Bilirubin 1.40 H AST 34 ALT 27 Alkaline Phosphatase 63 Total Protein 8.4 H Albumin 3.2 Globulin 5.2 H Albumin/Globulin Ratio 0.6 L Radiography Chest X-Ray - ED: Read by ED Physician (Three-view x-ray of the foot was obtained. There is no evidence of osteomyelitis. There is a skin defect noted heel. He also has marked soft tissue swelling because he has venous stasis dermatitis due to significant lymphedema. This was independent reviewed interpreted by de [id number]) Diagnostic Testing: Clinical Impression(s) from Imaging Studies Foot X-Ray 07/02/23 16:25 IMPRESSION: Soft tissue swelling without evidence for acute fracture or dislocation. No definitive radiographic evidence for acute osteomyelitis Electronically Signed: Alejandro Christie MD at 17:09 EST , Discharge Plan Triage Chief Complaint: Wound Check ED Provider: Marcus Sandoval Dx/Rx/DC Orders Clinical Impression: Avulsion of skin of left foot, Lymphedema, Chronic venous stasis dermatitis, Homeless, Elevated blood-pressure reading, without diagnosis of hypertension Instructions: ED Hypertension, To Be Confirmed, ED Skin Tear (Skin Avulsion) Prescriptions: No Action furosemide [Lasix] 40 mg tablet 40 mg PO DAILY Qty: 30 0RF Primary Care Provider: Yajaira Montes Referrals: [facility] Yajaira Angel [Primary Care Provider] - As soon as possible Activity Restrictions/Additional Instructions: Follow-up at the [facility] for wound evaluation in 2 days. Do not remove the dressing until seen at the wound center. Disposition Disposition: Home, Self Care
[2023-07-02 17:10] LABS: Erythrocyte Sedimentation Rate 42 mm/hr (0-20)
[2023-07-02 17:12] LABS: ALB/GLOB Ratio 0.6 RATIO (0.9-2.4); AST(SGOT) 34 U/L (15-37); Alanine Aminotransfer ALT/SGPT 27 U/L (16-61); Albumin, Serum 3.2 g/dL (3.2-5.0); Alkaline Phosphatase 63 U/L (45-117); Anion Gap 6 (5-15); BUN 17 mg/dL (7-18); BUN/Creat Ratio 14.8 RATIO (10-20); Calcium,Total 9.1 mg/dL (8.5-10.1); Chloride 110 mmol/L (98-107); Creatinine, Serum 1.15 mg/dL (0.70-1.30); EST Glomerular Filtration Rate 67 mL/min (>60); Est Glom Filt Rate - Afr Amer 81 mL/min (>60); Globulin 5.2 g/dL (2.2-4.2); Glucose 100 mg/dL (74-106); Potassium 3.2 mmol/L (3.5-5.1); Protein, Total 8.4 g/dL (6.4-8.2); Sodium Level 140 mmol/L (136-145)
[2023-07-02 17:22] LABS: Lactic Acid 2.1 mmol/L (0.4-1.9)
[2023-07-02 20:52] LABS: Reflex Lactate? Y
== END 2023-07-02 20:44 | disposition home or self-care (01) ==
PROVIDERS: Emergency Provider Emergency Medicine; Visit Provider Emergency Medicine
DX: S91.302A Unspecified open wound, left foot, initial encounter (principal); M86.9 Osteomyelitis, unspecified; I89.0 Lymphedema, not elsewhere classified; I87.8 Other specified disorders of veins; R03.0 Elevated blood-pressure reading, without diagnosis of hypertension; Z79.899 Other long term (current) drug therapy; Z59.00 Homelessness unspecified; X58.XXXA Exposure to other specified factors, initial encounter
CPT/HCPCS: 73630; 80053; 83605; 85025; 85652; 99282; A4216

== ENCOUNTER 2023-07-12 12:55 | Outpatient (RCR) | payer MEDICARE, MEDICAID, SELFPAY | END 2023-07-12 23:59 | disposition home or self-care (01) | LOC: WC 12:55 | PROVIDERS: Visit Provider Physician Assistant | DX: Z09 Encounter for follow-up examination after completed treatment for conditions other than malignant neoplasm (principal) ==

== ENCOUNTER 2023-07-12 13:56 | Inpatient (IN) | payer MEDICARE, MEDICAID, SELFPAY ==
[2023-07-12 13:58] VITALS: BP 161/85; PULSE 105; RESP 22; TEMP 37.2; O2SAT 98
[2023-07-12 14:10] VITALS: BP 161/85; PULSE 105; RESP 22; TEMP 37.2; O2SAT 98
--- NOTE | 2023-07-12 14:18 | ED.VIS.LOWEX ---
HPI History of Present Illness Chief Complaint: Wound Check Detail of Chief Complaint: Wound on left foot Informant: patient Narrative Narrative: Patient presents to the emergency department complaint of a wound on his left foot that started 3 to 4 weeks ago. Patient states that he followed up with the wound care center today and was referred to the emergency department for concern for infection. Patient apparently had a dressing on this wound since his evaluation in the emergency department 3 to 4 weeks ago. He denies fevers or chills but does describe some generalized weakness. He denies being diabetic. Patient thinks it started as a pressure wound because he lives and sleeps in his car. [facility] Medical History (Updated 07/12/23 @ 17:31 by Snehal Melendrez) Alcohol abuse Congestive heart failure (CHF) Depression Former smoker Lymphedema Ulcer of left lower extremity with fat layer exposed Ulcer of right lower extremity with fat layer exposed Home Medications furosemide 40 mg tablet (Lasix) 40 mg PO DAILY #30 tabs 09/22/22 [Rx Last Taken 07/09/23] Allergy/AdvReac Type Severity Reaction Status Date / Time No Known Allergies Allergy Verified 07/12/23 13:58 Social History (Updated 07/02/23 @ 17:[address] Marcus Sandoval MD) household members: none housing: homeless Smoking Status: Former smoker ROS ROS ED Review of Systems ROS Unobtainable: other Constitutional Constitutional ED: Reports lethargy; Denies chills, fever(s), sweats or weight loss Eyes Eyes: Denies blurry vision, change in vision or diplopia ENT ENT ED: Denies rhinorrhea or sore throat Cardiovascular Cardiovascular: Denies chest pain, orthopnea or racing heartbeat Respiratory/Chest Respiratory/Chest: Denies cough, dyspnea, dyspnea on exertion, orthopnea or sputum Gastrointestinal Gastrointestinal: Denies abdominal pain, diarrhea, nausea or vomiting Genitourinary Genitourinary ED: Denies dysuria, hematuria or urinary frequency Musculoskeletal Musculoskeletal: Reports other Details: Wound to left heel ; Denies arthralgias, back pain, myalgias or neck pain Integumentary Denies abscess, Abrasions or rash Neurologic Neurologic: Denies headache(s) or weakness Psychiatric Psychiatric: Denies anxiety, depression or suicidal thoughts Endocrine Endocrinology: Denies polydipsia, polyphagia or polyuria Hematologic/Lymphatic Hematologic/Lymphatic: Denies easy bleeding, easy bruising or lymphadenopathy Allergic/Immunologic Allergic/Immunologic ED: Denies mouth swelling, tongue swelling or urticaria EXAM Physical Exam Const Vital Signs: 07/12/23 13:58 07/12/23 14:10 07/12/23 15:00 Temperature 99 F 99 F 97.7 F L Temperature Source Temporal Temporal Oral Pulse Rate 105 H 105 H 88 Respiratory Rate 22 H 22 H 16 Blood Pressure 161/85 H 161/85 H 139/67 H Blood Pressure Mean 110 110 91 Pulse Ox 98 98 97 Oxygen Delivery Method Room Air Room Air Room Air 07/12/23 16:00 07/12/23 16:00 07/12/23 16:00 Temperature 97.9 F 97.9 F Temperature Source Oral Pulse Rate 87 87 87 Respiratory Rate 16 16 16 Blood Pressure 119/66 119/66 119/66 Blood Pressure Mean 83 83 83 Pulse Ox 97 97 97 Oxygen Delivery Method Room Air Room Air Positive well nourished and well developed General Appearance ED: well developed and NAD HEENT Reports TM's clear and moist mucous membranes normocephalic and atraumatic; Negative for trauma or tenderness Tympanic Membrane ED: Yes TM's clear Eyes PERRL and EOMs intact bilaterally General Eye ED: Negative for pale conjunctiva or scleral icterus Neck no lymphadenopathy, supple and no JVD General: Negative for tenderness Chest Wall inspection of chest normal and palpation of chest normal Chest: Negative for tenderness Resp normal respiratory effort and clear to auscultation bilaterally Effort and Inspection: Negative for respiratory distress or pain with movement Auscultation: Negative for rhonchi, wheezes or diminished lung sounds Cardio regular rate, regular rhythm, S1 normal heart sound, S2 normal heart sound and no murmurs Peripheral Pulses: pulses 2+ throughout GI normal to inspection, nondistended, normoactive bowel sounds, soft to palpation, non-tender, non-distended and no masses Back/Spine no CVA tenderness and no thoracic nor lumbar tenderness Extremity normal to inspection Extremity Narrative: Patient has bilateral lower extremity lymphedema. Left heel-patient has a large open wound traversing the entire heel into soft tissue. There was a foul odor to the wound. There is significant soft tissue swelling and cellulitic changes as well. General Extremety ED: Negative for edema General Extremity: Negative for edema Neuro oriented x3, CN's II-XII intact bilaterally, no sensory deficits noted and gait normal Sensorium / Orientation: awake, alert, oriented to person, oriented to place and oriented to time Motor Exam: strength 5/5 throughout and strength abnormal Psych mental status grossly normal Skin no rashes or lesions noted and no wounds MDM MDM MDM Narrative Medical decision making narrative: Patient presents with a large open wound to the left heel with foul odor. Patient homeless and living in his car. Concern for infection. Will obtain basic labs and start patient on Zosyn and vancomycin. Will order an x-ray. Patient will be requiring admission and will discuss with podiatry as well. Patient was started on Vanco and Zosyn. CBC with differential obtained showed white count 11.4 with hemoglobin 12.7 platelet count of 309. Chemistries showed a low potassium at 2.4. Patient states that he is been taking Lasix but not taking his potassium. X-rays of the left foot obtained showed soft tissue swelling and soft tissue defect over the heel. There is no gas within the tissues and no evidence of osteomyelitis. I did discuss case with Dr. Sanders who is on for podiatry and he will consult on the case. Really had a hard time palpating pulses in the dorsum of his foot and lateral malleolus and will obtain him to use Doppler ultrasound to evaluate. Patient may require vascular studies. Cap refill was 3 seconds. Will discuss with hospitalist to evaluate patient for admission. Lab Data Attestation: I reviewed the patient's lab results. Labs: Laboratory Results - last 24 hr 07/12/23 14:35 WBC 11.4 H RBC 4.42 L Hgb 12.7 L Hct 39.0 L MCV 88.2 MCH 28.7 MCHC 32.6 RDW Std Deviation 41.9 RDW Coeff of Thiago 12.8 Plt Count 309 MPV 9.0 Immature Gran % (Auto) 0.600 Neut % (Auto) 85.4 H Lymph % (Auto) 5.3 L [place] % (Auto) 7.3 Eos % (Auto) 1.0 Baso % (Auto) 0.4 Absolute Neuts (auto) 9.8 H Absolute Lymphs (auto) 0.61 L Nucleated RBC % 0 Sodium 141 Potassium 2.4 L* Chloride 109 H Carbon Dioxide 26.0 Anion Gap 6 BUN 12 Creatinine 1.02 Estim Creat Clear Calc 105.13 Est GFR (MDRD) Af Amer 93 Est GFR (MDRD) Non-Af 77 BUN/Creatinine Ratio 11.8 Glucose 102 Lactic Acid 2.0 Calcium 9.0 S.aureus Protein A PCR POSITIVE H MRSA (PCR) Negative Radiography Diagnostic Testing: Clinical Impression(s) from Imaging Studies Foot X-Ray 07/12/23 15:00 IMPRESSION: Diffuse soft tissue swelling worse in the dorsal aspect with a large ulcerated lesion overlying the posterior aspect of the calcaneus. Electronically Signed: Ferny Estrada MD at 15:21 EST , Three-view x-rays of the left foot obtained showed soft tissue swelling and soft tissue defect over the heel otherwise no fractures or lytic lesions. Radiology in agreement. Discharge Plan Dx/Rx/DC Orders Clinical Impression: Lymphedema, Cellulitis of foot, left, Acute hypokalemia Disposition Disposition: Acute Care Hospital [facility] Discharge Date/Time: 07/12/23 17:19
[2023-07-12 14:20] VITALS: BMI 50.0
[2023-07-12] MEDS: 0.9% Normal Saline (1000mL) 1,000 ML 150 ML IV (14:37)
[2023-07-12] MEDS: Piperacil/Tazobactam 4.5 GM in 0.9% Normal Saline (100mL MB+) 100 ML IV (14:44)
[2023-07-12 14:50] LABS: Absolute Lymphocyte Count 0.61 X10^3/uL (0.83-4.51); Absolute Neutrophil Count 9.8 X10^3/uL (2.0-7.7); Basophil# 0.05 X10^3/uL; Basophil% 0.4 % (0-1); Eosinophil# 0.12 X10^3/uL; Hemoglobin 12.7 g/dL (13.0-16.5); Lymphocyte # 0.61 X10^3/ul (0.83-4.51); Lymphocyte % 5.3 % (19-41); Mean Corp Hgb Conc 32.6 g/dL (32-36); Mean Corpuscular Hgb 28.7 pg (27.0-32.0); Mean Corpuscular Volume 88.2 fL (80-94); Monocyte# 0.83 X10^3/uL; Monocyte% 7.3 % (0-10); NRBC Flagged by Analyzer 0 % (0-5); Neutrophil # 9.75 X10^3/uL (2.7-7.7); Neutrophil % 85.4 % (47-70); Platelet Count 309 K/mm3 (150-450); RBC Distribution Width CV 12.8 % (11.6-14.6); RBC Distribution Width SD 41.9 fl (35.1-43.9); Red Blood Count 4.42 M/mm3 (4.6-6.2); White Blood Count 11.4 K/mm3 (4.4-11.0)
[2023-07-12 15:00] VITALS: BP 139/67; PULSE 88; RESP 16; TEMP 36.5; O2SAT 97
--- NOTE | 2023-07-12 15:00 | RAD_ITS ---
STUDY: X-RAY - LEFT FOOT CLINICAL: Male, 68 years old. Heel wound TECHNIQUE: 3 view(s) of the foot. COMPARISON: Comparison is made with prior study dated July 02, 2023. FINDINGS: There is an enthesophyte involving the posterior superior calcaneus at the site of insertion of the Achilles tendon. Normal visualized subtalar, talonavicular, calcaneocuboid, tarsal and tarsometatarsal articulations. Normal metatarsi. Normal metatarsophalangeal joint of the great toe. Normal tibial and fibular sesamoid bones. Normal interphalangeal joint of the great toe. Normal phalanges of the great toe. Normal second through fifth metatarsophalangeal joints. Normal interphalangeal joints and phalanges of the lesser toes. There is a marked degree of diffuse soft tissue swelling. Ulcerated lesion underlying the posterior aspect of the calcaneus. RAD/Foot min 3 Views IMPRESSION: Diffuse soft tissue swelling worse in the dorsal aspect with a large ulcerated lesion overlying the posterior aspect of the calcaneus. Electronically Signed: Ferny Estrada MD at 15:21 EST ,
[2023-07-12 15:19] LABS: Anion Gap 6 (5-15); BUN 12 mg/dL (7-18); BUN/Creat Ratio 11.8 RATIO (10-20); Chloride 109 mmol/L (98-107); Creatinine, Serum 1.02 mg/dL (0.70-1.30); EST Glomerular Filtration Rate 77 mL/min (>60); Est Glom Filt Rate - Afr Amer 93 mL/min (>60); Estimated Creatinine Clearance 105.13 ml/min; Glucose 102 mg/dL (74-106); Potassium 2.4 mmol/L (3.5-5.1); Sodium Level 141 mmol/L (136-145)
[2023-07-12] MEDS: Vancomycin HCl 2,000 MG in 0.9% Normal Saline (500mL Bag) 500 ML 250 MG IV (15:23)
[2023-07-12] MEDS: Potassium Chloride 10mEq/100mL 10 MEQ/100 ML IV.SOLN. 100 MEQ IV BOLUS ×4 (15:32→20:55)
--- NOTE | 2023-07-12 15:43 | ED.RN ---
DORSALIS PEDIS PULSES FOUND VIA DOPPLER BILATERALLY. PATIENT STATES HE IS TO TAKE LASIX DAILY BUT HAS NOT BE CONSISTENT WITH TAKING DIRECTED IT MAKES MY FOOT HURT. PATIENT ALSO STATES HE HAS LIVED IS HIS CAR FOR 10 YEARS. PATIENT NEEDING SOCIAL SERVICE CONSULT PRIOR TO DISCHARGE.
[2023-07-12 16:00] VITALS: BP 119/66; PULSE 87; RESP 16; TEMP 36.6; O2SAT 97
[2023-07-12 16:27] LABS: M R Staph aureus DNA By PCR Negative (Negative); Probe Check PASS; Staph aureus DNA By PCR POSITIVE (Negative)
[2023-07-12 17:23] VITALS: BMI 49.7
--- NOTE | 2023-07-12 17:24 | PHA.PHARE_ITS ---
Consult Antibiotic Management Pharmacy has been consulted to manage selected antibiotic: Vancomycin Type of Intervention Type of Consult: New start Suspected Infection Suspected Infection: Skin/Soft tissue Prior Doses of Antibiotics Prior Doses of Antibiotics Received/Current Regimen: Vancomycin 2000 mg IV given 07/12/23 @ 1833, patient is also on piperacillin/tazo bactam 3.375 grams Q8H Labs Labs: Sodium 141 mmol/L (136-145) 07/12/23 14:35 Potassium 2.4 mmol/L (3.5-5.1) L* 07/12/23 14:35 Chloride 109 mmol/L (98-107) H 07/12/23 14:35 Carbon Dioxide 26.0 mmol/L (21.0-32.0) 07/12/23 14:35 Anion Gap 6 (5-15) 07/12/23 14:35 BUN 12 mg/dL (7-18) 07/12/23 14:35 Creatinine 1.02 mg/dL (0.70-1.30) 07/12/23 14:35 Est GFR (MDRD) Af Amer 93 mL/min (>60) 07/12/23 14:35 Est GFR (MDRD) Non-Af 77 mL/min (>60) 07/12/23 14:35 BUN/Creatinine Ratio 11.8 RATIO (10-20) 07/12/23 14:35 Glucose 102 mg/dL (74-106) 07/12/23 14:35 Microbiology Microbiology: Microbiology 07/12/23 14:30 Wound - Heel Gram Stain - Final Dosing Weight Weight used for dosin kg Estimated Creatinine Clearance Estimated Creatinine Clearance: ~105 Goal Trough Goal Trough: 10-15 mcg/mL Pharmacy Plan for Drug Dosing Pharmacy Plan for Drug Dosing: Vancomycin 2000 mg IV x 1 given, subsequent dosing with 1750 mg IV Q12H. Pharmacy Service will continue to monitor and adjust dosing as required. Follow-Up Labs Follow-Up Labs: Trough: Vancomycin Date/Time Labs Ordered Labs to be done on [date and time ordered]: 07/14/23 @ 8066
[2023-07-12] MEDS: 0.9% Normal Saline (250mL Bag) 250 ML 15 ML IV (18:14)
[2023-07-12] MEDS: Potassium Chloride Oral Tablet 20 MEQ 60 MEQ PO (18:18)
[2023-07-12] MEDS: 0.9% Saline Lock 10 ML Syringe IV ×2 (18:18→21:10)
[2023-07-12 19:07] LABS: Reflex Lactate? Y
--- NOTE | 2023-07-12 20:49 | HP.PCM.HOS_ITS ---
HPI - General General Date of Admission: 07/12/23 Date of Service: 07/12/23 Chief Complaint: Left heel wound HPI Narrative JAK TANNER, is a 68 M who presents to the emergency room today at [facility] after being directed to go there by wound care today, patient was at a office visit at wound care for a left heel ulceration, it was noted that the wound was odorous and had discharge and he was directed to go to the ER for further evaluation. Patient stated he had the wound on his heel for about 3 to 4 weeks, he had been seen in the emergency room here on 02 July 2023 and the dressing that was applied at that time to his left heel wound was still in place here in the emergency room. Examination of the left heel reveals it to be macerated with evidence of tissue, there is a very strong odor coming from the patient's heel. Labs obtained showed an elevated white blood cell count 11.4, hemoglobin was 12.7, chemistry panel was remarkable for potassium of 2.4, PCR of the wound was positive for Staph aureus but negative for MRSA. Patient states that he is homeless at this time and lives out of his car, when asked why he was homeless he stated that he did not want to live in his apartment anymore it was too much trouble. Patient will be admitted to [facility], he was placed on IV Zosyn and IV vancomycin, he will be seen in consultation by infectious diseases and podiatry, MRI of the patient's left foot will be obtained to rule out osteomyelitis. Patient has severe lymphedema in the lower extremities and I do not feel vascular studies could be obtainable due to the patient's severe lymphedema. [facility] Medical History (Updated 07/12/23 @ 17:31 by Snehal Melendrez) Alcohol abuse Congestive heart failure (CHF) Depression Former smoker Lymphedema Ulcer of left lower extremity with fat layer exposed Ulcer of right lower extremity with fat layer exposed Home Medications furosemide 40 mg tablet (Lasix) 40 mg PO DAILY #30 tabs 09/22/22 [Rx Last Taken 07/09/23] Allergy/AdvReac Type Severity Reaction Status Date / Time No Known Allergies Allergy Verified 07/12/23 13:58 Social History (Updated 07/02/23 @ 17:[address] Marcus Sandoval MD) household members: none housing: homeless Smoking Status: Former smoker ROS ROS Narrative Patient is a poor informant Constitutional Constitutional: Denies anorexia, change in weight, chills, fatigue, fever(s), malaise, night sweats or weakness Eyes Eyes: Denies blurry vision, change in vision, discharge from eye(s) or eye pain Cardiovascular Cardiovascular: Denies chest pain, claudication, dyspnea on exertion, edema or palpitations Respiratory/Chest Respiratory/Chest: Denies cough, hemoptysis, shortness of breath at rest or shortness of breath with exertion Gastrointestinal Gastrointestinal: Denies abdominal pain, constipation, diarrhea, hematemesis, hematochezia, melena, nausea or vomiting Genitourinary Genitourinary: Denies dysuria, hematuria, urinary frequency, urinary hesitancy, urinary incontinence or urinary urgency Musculoskeletal Musculoskeletal: Reports other Details: Left heel ulceration x 3 to 4 weeks ; Denies back pain, joint pain, joint stiffness, joint swelling, myalgias or neck pain Neurologic Neurologic: Denies abnormal gait, abnormal speech, dizziness, focal weakness, headache(s), loss of vision, numbness, other visual disturbances, paresthesias, syncope or tingling Psychiatric Psychiatric: Denies anxiety, cognitive impairment, depression, irritability, mood swings or suicidal ideation Endocrine Endocrinology: Denies change in body appearance, cold intolerance, excessive sweating, heat intolerance, polydipsia or polyuria Hematologic/Lymphatic Hematologic/Lymphatic: Denies none, anemia, easy bleeding, easy bruising or lymphadenopathy Allergic/Immunologic Allergic/Immunologic: Denies rhinitis, urticaria, eczemia or asthma Vital Signs Vital Signs Vital Signs: 07/12/23 13:58 07/12/23 14:10 07/12/23 15:00 Temperature 99 F 99 F 97.7 F L Temperature Source Temporal Temporal Oral Pulse Rate 105 H 105 H 88 Respiratory Rate 22 H 22 H 16 Blood Pressure 161/85 H 161/85 H 139/67 H Blood Pressure Mean 110 110 91 Pulse Ox 98 98 97 Oxygen Delivery Method Room Air Room Air Room Air 07/12/23 16:00 07/12/23 16:00 07/12/23 16:00 Temperature 97.9 F 97.9 F Temperature Source Oral Pulse Rate 87 87 87 Respiratory Rate 16 16 16 Blood Pressure 119/66 119/66 119/66 Blood Pressure Mean 83 83 83 Pulse Ox 97 97 97 Oxygen Delivery Method Room Air Room Air Weight Weight: 161.796 kg Body Mass Index (BMI) 49.7 Physical Exam Const alert, oriented x3 and no apparent distress Constitutional Narrative: Patient is morbidly obese, he appears older than his stated age, hygiene is poor General Appearance: cooperative and well developed Orientation / Consciousness: awake, oriented to person, oriented to place and oriented to time HEENT normocephalic, head/scalp atraumatic, hearing grossly normal bilaterally and moist oral mucous membranes Eyes PERRL, EOMs intact bilaterally and conjunctivae normal Neck supple, no JVD, thyroid normal and no carotid bruits General: trachea midline Resp normal respiratory effort, no retractions, no use of accessory muscles and clear to auscultation bilaterally Auscultation: Negative for rales, rhonchi or wheezes Cardio regular rate, regular rhythm, S1 normal heart sound, S2 normal heart sound, no murmurs, no rub and no gallops GI normal to inspection, nondistended, normoactive bowel sounds, soft to palpation, non-tender and non-distended Extremity Extremity Narrative: Severe lymphedema as noted over both legs, it is somewhat worse on the left, there is a large open area over the left heel, it is malodorous and has evidence of tissue sloughing and necrosis. Neuro oriented x3, CN's II-XII intact bilaterally, no focal motor deficits and no sensory deficits noted Sensorium / Orientation: awake and alert Speech: speech normal Psych affect normal Results Lab / Micro Data 07/12/23 14:35 07/12/23 14:35 Labs: Laboratory Results - last 24 hr 07/12/23 14:35: WBC 11.4 H, RBC 4.42 L, Hgb 12.7 L, Hct 39.0 L, MCV 88.2, MCH 28.7, MCHC 32.6, RDW Std Deviation 41.9, RDW Coeff of Thiago 12.8, Plt Count 309, MPV 9.0, Immature Gran % (Auto) 0.600, Neut % (Auto) 85.4 H, Lymph % (Auto) 5.3 L, [place] % (Auto) 7.3, Eos % (Auto) 1.0, Baso % (Auto) 0.4, Absolute Neuts (auto) 9.8 H, Absolute Lymphs (auto) 0.61 L, Nucleated RBC % 0, Sodium 141, Potassium 2.4 L*, Chloride 109 H, Carbon Dioxide 26.0, Anion Gap 6, BUN 12, Creatinine 1.02, Estim Creat Clear Calc 105.13, Est GFR (MDRD) Af Amer 93, Est GFR (MDRD) Non-Af 77, BUN/Creatinine Ratio 11.8, Glucose 102, Lactic Acid 2.0, Calcium 9.0, S.aureus Protein A PCR POSITIVE H, MRSA (PCR) Negative Micro: Microbiology 07/12/23 14:30 Wound - Heel Gram Stain - Final Imaging Radiology Impression Foot X-Ray 07/12/23 15:00 IMPRESSION: Diffuse soft tissue swelling worse in the dorsal aspect with a large ulcerated lesion overlying the posterior aspect of the calcaneus. Electronically Signed: Ferny Estrada MD at 15:21 EST , Assessment & Plan Assessment/Plan (1) Cellulitis of foot, left: PLAN: Plan 1. Cellulitis of the left heel/deep wound infection left heel-again patient will be admitted to [facility], IV Zosyn and vancomycin will be administered, patient will be seen in consultation by podiatry and infectious diseases, again the patient's PCR of his wound appears to be positive for Staph aureus but not MRSA.Patient will be seen by wound care. Patient will have an MRI of his left foot. #2 severe lymphedema of the lower extremities-complicates care, medical course, recovery, and prognosis. Patient was taking oral Lasix as an outpatient but was not taking potassium as directed, I have elected not to place the patient back on Lasix at this time. #3 hypokalemia-secondary to Lasix usage without potassium replacement, patient will be given p.o. potassium and labs will be repeated, patient may need to be given IV potassium if his potassium does not correct. #4 homelessness-complicates care, medical course, recovery, and prognosis, patient will need to be seen by social worker school, he will most likely need to go to a care home facility, he will not be weightbearing on his left heel. PT and OT will see and evaluate the patient. #5 self-neglect/noncompliance-complicates care, medical course, recovery, and prognosis Total clinical time spent by myself addressing the patient's medical issues, reviewing all of his data, and collaborating with patient's care team: 75 minutes Charges/Coding Visit Charges Inpatient E&M: 61704 Init Hosp L3
[2023-07-12 21:05] LABS: Lactic Acid 0.8 mmol/L (0.4-1.9)
[2023-07-12] MEDS: Piperacil/Tazobactam 3.375 GM in 0.9% Normal Saline (50mL MB+) 50 ML IV (21:09)
[2023-07-12 21:16] VITALS: BP 114/58; PULSE 112; RESP 20; TEMP 36.4; O2SAT 94
[2023-07-12] MEDS: Potassium Chloride Oral Tablet 20 MEQ 40 MEQ PO (21:18)
[2023-07-12] MEDS: Heparin Injection (Vial) 5,000 UNIT/ML VIAL 5000 UNIT SC (21:18)
[2023-07-12] MEDS: Ensure Plus High Protein 120 ML LIQUID PO (21:18)
[2023-07-13 00:32] VITALS: BP 114/63; PULSE 98; RESP 18; TEMP 37; O2SAT 94
[2023-07-13] MEDS: 0.9% Saline Lock 10 ML Syringe IV (00:50)
[2023-07-13] MEDS: Vancomycin HCl 1,750 MG in 0.9% Normal Saline (500mL Bag) 500 ML 250 MG IV ×2 (03:00→16:45)
[2023-07-13] MEDS: 0.9% Normal Saline (250mL Bag) 250 ML 15 ML IV (03:04)
--- NOTE | 2023-07-13 05:31 | EKG12_ITS ---
Test Reason : A-Fib Blood Pressure : / mmHG Vent. Rate : 082 BPM Atrial Rate : 000 BPM P-R Int : 000 ms QRS Dur : 096 ms QT Int : 396 ms P-R-T Axes : 000 007 038 degrees QTc Int : 462 ms Atrial fibrillation Abnormal ECG No previous ECGs available Confirmed by DARIO AUGUST, ERA ([id number]), loan expeditor ELVA YIP ([id number]) on 07/16/2023 2:02:44 PM Referred By: Coker Confirmed By:HEATHER BISHOP MD
[2023-07-13 05:37] VITALS: BP 111/66; PULSE 83; RESP 22; TEMP 36.7; O2SAT 92
[2023-07-13] MEDS: Piperacil/Tazobactam 3.375 GM in 0.9% Normal Saline (50mL MB+) 50 ML IV ×3 (05:40→20:42)
[2023-07-13 06:46] LABS: Absolute Lymphocyte Count 0.84 X10^3/uL (0.83-4.51); Absolute Neutrophil Count 5.7 X10^3/uL (2.0-7.7); Basophil# 0.06 X10^3/uL; Basophil% 0.8 % (0-1); Eosinophil# 0.18 X10^3/uL; Eosinophils% 2.4 % (0-5); Hematocrit 32.8 % (40-54); Hemoglobin 10.6 g/dL (13.0-16.5); Lymphocyte # 0.84 X10^3/ul (0.83-4.51); Mean Corp Hgb Conc 32.3 g/dL (32-36); Mean Corpuscular Hgb 28.6 pg (27.0-32.0); Mean Corpuscular Volume 88.4 fL (80-94); Mean Platelet Vol. 9.2 fl (6.2-12.0); Monocyte# 0.76 X10^3/uL; NRBC Flagged by Analyzer 0 % (0-5); Neutrophil # 5.72 X10^3/uL (2.7-7.7); Platelet Count 264 K/mm3 (150-450); RBC Distribution Width CV 13.1 % (11.6-14.6); RBC Distribution Width SD 42.4 fl (35.1-43.9); Red Blood Count 3.71 M/mm3 (4.6-6.2); White Blood Count 7.6 K/mm3 (4.4-11.0)
[2023-07-13 07:01] LABS: Anion Gap 4 (5-15); BUN 10 mg/dL (7-18); Calcium,Total 7.9 mg/dL (8.5-10.1); Chloride 117 mmol/L (98-107); Creatinine, Serum 0.83 mg/dL (0.70-1.30); EST Glomerular Filtration Rate 97 mL/min (>60); Est Glom Filt Rate - Afr Amer 118 mL/min (>60); Estimated Creatinine Clearance 128.73 ml/min; Glucose 99 mg/dL (74-106); Sodium Level 145 mmol/L (136-145)
--- NOTE | 2023-07-13 07:01 | PCM.CONS.GEN ---
Assessment & Plan Assessment/Plan (1) Cellulitis of foot, left: (2) Lymphedema: (3) Non-pressure chronic ulcer of other part of left foot with necrosis of bone: PLAN: Plan Evaluation performed. Reviewed diagnostic data. Given the findings discussed debridement of left heel ulcer down to bone with biopsy of bone. Reviewed procedure, as well as possible benefits vs risks, goals, expectations. A culture has been obtained and pending, patient on is IV antibiotics as this time. No weightbearing left foot. Keep keep offloaded. Will likely plan for wound vac after surgery. Podiatry will continue to follow, thank you for consultation. HPI Consult Data Date of Consult: 07/13/23 HPI Narrative Reason for Consultation: Heel ulcer and infection - left HPI Narrative: JAK TANNER, is a 68 M who was seen this morning for left heel infection. He is homeless and lives in his van. He relates he developed a cut on his left heel a couple weeks ago, he relates it felt like dough and it worsened. He now has necrotic ulceration and there is concern for osteomyelitis given the depth. He has been admitted for further management. He has chronic lymphedema as well. He is resting in bed. [facility] Medical History (Updated 07/13/23 @ 07:[address] Alejandro Sanders DPM) Alcohol abuse Congestive heart failure (CHF) Depression Former smoker Lymphedema Ulcer of left lower extremity with fat layer exposed Ulcer of right lower extremity with fat layer exposed Home Medications furosemide 40 mg tablet (Lasix) 40 mg PO DAILY #30 tabs 09/22/22 [Rx Last Taken 07/09/23] Allergy/AdvReac Type Severity Reaction Status Date / Time No Known Allergies Allergy Verified 07/12/23 13:58 Social History (Updated 07/02/23 @ 17:[address] Marcus Sandoval MD) household members: none housing: homeless Smoking Status: Former smoker Physical Exam Narrative Large ulceration to the plantar posterior left heel down to subc and fascia tissue and appears to probe to bone as well, there is significant necrotic tissue to the wound, but there is some granular tissue noted, there is maloder and drainage consistent with infection. There is significant bilateral chronic lymphedema to the lower extremity. No other open lesions bilateral, CFT < 2 seconds to all toes, no evidence of acute ischemia, there is chronic appearing peripheral neuropathy bilateral. Toenails are thickened and dystrophic bilateral. Const alert, oriented x3 and no apparent distress Lab / Micro Data 07/13/23 05:42 07/13/23 05:42 Labs: Laboratory Results - last 24 hr 07/12/23 14:35: WBC 11.4 H, RBC 4.42 L, Hgb 12.7 L, Hct 39.0 L, MCV 88.2, MCH 28.7, MCHC 32.6, RDW Std Deviation 41.9, RDW Coeff of Thiago 12.8, Plt Count 309, MPV 9.0, Immature Gran % (Auto) 0.600, Neut % (Auto) 85.4 H, Lymph % (Auto) 5.3 L, [place] % (Auto) 7.3, Eos % (Auto) 1.0, Baso % (Auto) 0.4, Absolute Neuts (auto) 9.8 H, Absolute Lymphs (auto) 0.61 L, Nucleated RBC % 0, Sodium 141, Potassium 2.4 L*, Chloride 109 H, Carbon Dioxide 26.0, Anion Gap 6, BUN 12, Creatinine 1.02, Estim Creat Clear Calc 105.13, Est GFR (MDRD) Af Amer 93, Est GFR (MDRD) Non-Af 77, BUN/Creatinine Ratio 11.8, Glucose 102, Lactic Acid 2.0, Calcium 9.0, S.aureus Protein A PCR POSITIVE H, MRSA (PCR) Negative 07/12/23 20:15: Lactic Acid 0.8 07/13/23 05:42: WBC 7.6, RBC 3.71 L, Hgb 10.6 L, Hct 32.8 L, MCV 88.4, MCH 28.6, MCHC 32.3, RDW Std Deviation 42.4, RDW Coeff of Thiago 13.1, Plt Count 264, MPV 9.2, Immature Gran % (Auto) 0.800, Neut % (Auto) 75.0 H, Lymph % (Auto) 11.0 L, [place] % (Auto) 10.0, Eos % (Auto) 2.4, Baso % (Auto) 0.8, Absolute Neuts (auto) 5.7, Absolute Lymphs (auto) 0.84, Nucleated RBC % 0 Micro: Microbiology 07/12/23 14:30 Wound - Heel Gram Stain - Final Imaging Radiology Impression Foot X-Ray 07/12/23 15:00 IMPRESSION: Diffuse soft tissue swelling worse in the dorsal aspect with a large ulcerated lesion overlying the posterior aspect of the calcaneus. Electronically Signed: Ferny Estrada MD at 15:21 EST ,
--- NOTE | 2023-07-13 07:30 | BON_PTH ---
PATIENT: JAK TANNER LOC: [facility] U#:[id number] AGE/SX: 68/M ROOM: [facility] RE07/12/[address]: Dr. David Downey MD : 1955 BED: 1 DIS: 07/17/2023 SPEC #: [id number] RECD: 07/16/23 08:41 STATUS: RAMÍREZ REQ #: [id number] AUROAR: 07/13/23 07:[address]: Alejandro Sanders DEPT: SURGICAL PATHOLOGY RECD BY: Kathie Hawley ENTERED: 07/16/23 08:44 SP TYPE: Bone OTHR DR: MD Dr. Alejandro Mcrae, DPM DO Dr. Aundrea Ramos MD Dr. Robert Leininger, MD [facility] Tissues: A - Ankle, NOS B - Ankle, NOS Procedures: Decalcification bone/plaque Surgery Specimen Level III Surgery Specimen Level IV Comments: @ Ordering doctor for DEC edited from to @ by ARABELLA at 07/16/23 1450 @ Ordering doctor for SUIV edited from to @ by ARABELLA at 07/16/23 1450 @ Submitting doctor edited from to DR.JWUNNI Giovana BELL at 07/16/23 1450 HEADER OPERATION: Debridement wound left heel, bone biopsy PRE-OP DIAGNOSIS: Cellulitis of left foot TISSUE SUBMITTED: A - Ulcer left heel, B - Calcaneus bone left heel MICROSCOPIC DIAGNOSIS A. Ulcer left heel, biopsy: Extensive ulceration, acute and chronic inflammation and granulation tissue reaction. B. Calcaneus bone left heel, biopsy: A piece of bone with mild acute and chronic osteomyelitis and reactive changes. SJ:zuleyma 07/19/2023 MICROSCOPIC DESCRIPTION Slides are reviewed. GROSS DESCRIPTION A - Received in fixative is one container labeled with the patient's name and designated ulcer left heel. The specimen consists of multiple irregular fragments of light to dark brooks soft tissue that in aggregate measure 6.5 x 5.0 x 1.5 cm. Serial sections do not reveal mass lesions. Pneumatic System Conveyor Operator sections are submitted in two cassettes. B - Received in fixative is one container labeled with the patient's name and designated calcaneus bone left heel. The specimen consists of an irregular fragment of light brooks cylindrical bone measuring 0.7 cm in length and 0.2 cm in average diameter. The specimen is totally submitted in one cassette after decalcification. / AM:zuleyma 07/16/2023 TC:2 CPT: 63291, 52855, 20891
[2023-07-13 07:51] VITALS: BP 131/75; PULSE 90; RESP 16; TEMP 36.3; O2SAT 98; BMI 49.7
--- NOTE | 2023-07-13 08:23 | WOUNDNOTE ---
wound photo: left heel
[2023-07-13 08:29] LABS: International Normalized Ratio 1.2; Prothrombin Time (Protime)PT. 15.6 SECONDS (11.7-14.9)
[2023-07-13 08:30] VITALS: BP 122/59; PULSE 92; RESP 18; TEMP 37.5; O2SAT 97
[2023-07-13 08:30] LABS: Partial Thromboplast Time 34.8 Seconds (24.1-36.2)
[2023-07-13] MEDS: 0.9% Normal Saline (1000mL) 1,000 ML 15 ML IV (08:30)
[2023-07-13 09:27] VITALS: BP 121/72; PULSE 89; RESP 14; TEMP 36.8; O2SAT 95
--- NOTE | 2023-07-13 09:57 | ECHOD_ITS ---
Reason For Study: Afib, Aflutter Procedure This was a 2D Doppler, Color Flow transthoracic echocardiogram. Exam performed portable in patient room. Left Ventricle Normal LV size. The estimated ejection fraction is 60 %. No evidence for diastolic dysfunction. No regional wall motion abnormalities noted. Right Ventricle Normal RV size. Normal systolic function. Atria Normal left atrium. Normal right atrium. No doppler evidence for ASD. Mitral Valve There is no mitral valve stenosis. No mitral valve insufficiency. Tricuspid Valve There is no tricuspid stenosis. Trivial tricuspid valve insufficiency. Pulmonary artery systolic pressure is 30 mmHg. Aortic Valve Trisinus/trileaflet aortic valve. There is no aortic stenosis. Trivial aortic valve insufficiency. Pulmonic Valve There is no pulmonic valvular stenosis. No pulmonic valve insufficiency. Great Vessels Normal aortic root. Pericardium/Pleural No pericardial effusion. MMode/2D Measurements & Calculations LVIDd: 5.7 cm IVSd: 1.2 cm Ao root diam: 3.5 cm LVIDs: 3.8 cm LVPWd: 1.1 cm RVDd: 3.7 cm FS: 33.3 % LAV(MOD-bp): 61.0 ml LVAd ap4: 24.4 cm2 SV(MOD-sp4): 37.0 ml LAV(MOD-bp) Indexed: 22.5 ml/m2 LVLd ap4: 7.5 cm LAV(MOD-sp2): 58.4 ml EDV(MOD-sp4): 67.8 ml LAV(MOD-sp4): 60.9 ml EDV(sp4-el): 67.4 ml LVAs ap4: 14.6 cm2 LVLs ap4: 6.2 cm ESV(MOD-sp4): 30.8 ml ESV(sp4-el): 29.3 ml EF(MOD-sp4): 54.5 % EF(sp4-el): 56.6 % SV(sp4-el): 38.2 ml LA A4 area: 21.1 cm2 LA dimension(2D): 4.4 cm RA A4 area: 18.9 cm2 Doppler Measurements & Calculations MV E max jatinder: 93.9 cm/sec Lat Peak E' Jatinder: 14.8 cm/sec Med Peak E' Jatinder: 11.9 cm/sec E/E' lat: 6.3 E/E' med: 7.9 Ao V2 max: 138.7 cm/sec LV V1 max: 105.4 cm/sec PA V2 max: 94.0 cm/sec Ao max P.7 mmHg LV V1 max P.5 mmHg Ao V2 mean: 101.9 cm/sec Ao mean P.6 mmHg Ao V2 VTI: 25.8 cm TR max jatinder: 251.4 cm/sec TR max P.3 mmHg ECHO/Echo Complete Interpretation Summary The estimated ejection fraction is 60 %. No evidence for diastolic dysfunction. Trivial aortic valve insufficiency. Ordering Physician: Aundrea Lange Referring Physician: [facility] Performed By: Elida Morris, RDCS, RVT
--- NOTE | 2023-07-13 10:49 | CM.ED ---
Social Work SW had received referral from previous ED visit regarding patient's living situation. BRIANA called [facility] to review if there is an open case. [facility]PS does not currently have a case but patient was referred last year and [facility] was unable to make contact with the patient. Pt has now been admitted. SW notified [facility] of patient's admission. Pt is likely to need placement but if discharged without house, [facility]PS will need contacted. Estelle Cota FIXED INCOME MANAGER, NOTCHING MACHINE OPERATOR
[2023-07-13] MEDS: Potassium Chloride 10mEq/100mL 10 MEQ/100 ML IV.SOLN. 100 MEQ IV BOLUS ×4 (12:24→15:43)
[2023-07-13] MEDS: Ensure Plus High Protein 120 ML LIQUID PO (12:29)
--- NOTE | 2023-07-13 13:45 | CASEMGMT ---
Addendum entered by Emily Starkey 07/13/23 15:50: Pt states he still drinks some ETOH, but not as much as he used to. He states he will go 2-3 weeks w/out drinking anything and then he may buy a 12 or 18 pack/beer and drink that over a course of a week. Original Note: RN?CM?HAND SCRAPER?CM?to room to meet with patient for initial transition planning/care coordination?assessment.?RN?CM?introduced self and role at [facility].? Pt voices understanding and consents to?assessment?at this time.? Pt resting in bed in no distress at this time.? Pt is A/O at this time and answers all questions appropriately.?? Care providers, pharmacy, and demographics verified/updated at this time. PCP: Susan Black Specialists: [facility]. Pt has gone to them in the past and just had an appt w/them yesterday as a f/u from the ER several weeks ago and they sent him to ER. Preferred Pharmacy: [facility] Insurance: All Def Digital [facility] Prescription Benefit:?yes Living Will/HPOA:? Pt does not currently have LW/HCPOA and declines info at this time.? Pt made aware that he can contact as an out-pt and make appt in the future if he decides he would like to talk with someone about this or would like to utilize [facility] social work for advanced directive completion.? LNOK: Father, Vicente Beltran (lives in [place]) Pt states he talks w/his father 2 x's/week.. Brother, Vicente Pearce (pt states he does not stay in contact with him). No children. Friend, Froilan. Living Arrangements: Pt states he has been living in his vehicle ([employer]) for the past 11 years and states that it does run. He states he is independent, manages his own medication and appts, and gets his own groceries. He uses his SS $ for groceries and gas. He either uses wipes he buys from the store to wash up or goes to [employer] for a shower. He states he had been doing well living out of his vehicle when he was well, but since he has been having health issues he is now willing to explore other living situations, stating he is now interested in getting a small apartment. Asha WARREN, made aware. RN CM advised pt to talk w/SW @ SNF re: interest in housing so they can further assist him. Transportation:?Pt DME: ? Denies using any DME. He states he will use the motorized cart @ [employer] when he goes grocery shopping. HHC/SNF: No hx of either. Pt is currently NWB to LLE and required 2 assist w/use of walker to get to [facility] and plan is for wound vac post-op. Discussed this w/pt and he states he will need to go to a SNF @ discharge. Asha WARREN, made aware. PLAN:??SNF Amelie BSN?RN?CM
--- NOTE | 2023-07-13 14:24 | CON.PCM.ID_ITS ---
Assessment & Plan Assessment/Plan (1) Lymphedema: (2) Non-pressure chronic ulcer of other part of left foot with necrosis of bone: PLAN: Wound cx pending, MRI pending. On empiric vanc/zosyn, podiatry following. Will follow, thank you HPI Consult Data Date of Consult: 07/13/23 HPI Narrative Reason for Consultation: osteo HPI Narrative: JAK TANNER, is a 68 M homeless, h/o etoh abuse, CHF, lymphedema, presented with several weeks worsening L heel wound with drainage, swelling, moderate pain, and redness. No fever, no n/v/d, no recent abx. No known inciting event. Came to ED, admitted on vanc/zosyn, seen by podiatry. Full ROS performed and neg except as noted above. [facility] Medical History Alcohol abuse Congestive heart failure (CHF) Depression Former smoker Lymphedema Ulcer of left lower extremity with fat layer exposed Ulcer of right lower extremity with fat layer exposed Home Medications furosemide 40 mg tablet (Lasix) 40 mg PO DAILY #30 tabs 09/22/22 [Rx Last Taken 07/09/23] Allergy/AdvReac Type Severity Reaction Status Date / Time No Known Allergies Allergy Verified 07/12/23 13:58 Social History (Updated 07/02/23 @ 17:[address] Marcus Sandoval MD) household members: none housing: homeless Smoking Status: Former smoker Physical Exam Const alert, oriented x3 and no apparent distress General Appearance: cooperative HEENT normocephalic and head/scalp atraumatic Eyes PERRL and EOMs intact bilaterally Neck supple and No nodes Resp normal air movement and clear to auscultation bilaterally Cardio regular rate and regular rhythm GI soft to palpation, non-tender and non-distended Extremity General Extremity: edema Skin Skin Narrative: Reviewed photo L heel wound Neuro CN's II-XII intact bilaterally Lab / Micro Data Attestation: I reviewed the patient's lab results. 07/13/23 05:42 07/13/23 05:42 Labs: Laboratory Results - last 24 hr 07/12/23 14:35: WBC 11.4 H, RBC 4.42 L, Hgb 12.7 L, Hct 39.0 L, MCV 88.2, MCH 28.7, MCHC 32.6, RDW Std Deviation 41.9, RDW Coeff of Thiago 12.8, Plt Count 309, MPV 9.0, Immature Gran % (Auto) 0.600, Neut % (Auto) 85.4 H, Lymph % (Auto) 5.3 L, [place] % (Auto) 7.3, Eos % (Auto) 1.0, Baso % (Auto) 0.4, Absolute Neuts (auto) 9.8 H, Absolute Lymphs (auto) 0.61 L, Nucleated RBC % 0, Sodium 141, Potassium 2.4 L*, Chloride 109 H, Carbon Dioxide 26.0, Anion Gap 6, BUN 12, Creatinine 1.02, Estim Creat Clear Calc 105.13, Est GFR (MDRD) Af Amer 93, Est GFR (MDRD) Non-Af 77, BUN/Creatinine Ratio 11.8, Glucose 102, Lactic Acid 2.0, Calcium 9.0, S.aureus Protein A PCR POSITIVE H, MRSA (PCR) Negative 07/12/23 20:15: Lactic Acid 0.8 07/13/23 05:42: WBC 7.6, RBC 3.71 L, Hgb 10.6 L, Hct 32.8 L, MCV 88.4, MCH 28.6, MCHC 32.3, RDW Std Deviation 42.4, RDW Coeff of Thiago 13.1, Plt Count 264, MPV 9.2, Immature Gran % (Auto) 0.800, Neut % (Auto) 75.0 H, Lymph % (Auto) 11.0 L, [place] % (Auto) 10.0, Eos % (Auto) 2.4, Baso % (Auto) 0.8, Absolute Neuts (auto) 5.7, Absolute Lymphs (auto) 0.84, Nucleated RBC % 0, PT 15.6 H, INR 1.2, APTT 34.8, Sodium 145, Potassium 3.0 L, Chloride 117 H, Carbon Dioxide 24.0, Anion Gap 4 L, BUN 10, Creatinine 0.83, Estim Creat Clear Calc 128.73, Est GFR (MDRD) Af Amer 118, Est GFR (MDRD) Non-Af 97, BUN/Creatinine Ratio 12.0, Glucose 99, Calcium 7.9 L Micro: Microbiology 07/12/23 14:30 Wound - Heel Gram Stain - Final Imaging Radiology Impression Foot X-Ray 07/12/23 15:00 IMPRESSION: Diffuse soft tissue swelling worse in the dorsal aspect with a large ulcerated lesion overlying the posterior aspect of the calcaneus. Electronically Signed: Ferny Estrada MD at 15:21 EST , Echocardiogram 07/13/23 09:57 Interpretation Summary The estimated ejection fraction is 60 %. No evidence for diastolic dysfunction. Trivial aortic valve insufficiency. Ordering Physician: Aundrea Lange Referring Physician: [facility] Performed By: Elida Morris, RDCS, RVT
--- NOTE | 2023-07-13 14:53 | CASEMGMT ---
Social Work SW spoke w/pt in room in regard to discharge plan. He is agreeable to SNF placement at this time. SW did provide to pt a list of usp facilities via [employer] of places in network w/pt's insurance, preferred geographic location and complete w/quality and resource use data. SW asked him to review the list and choose 3 places, SW will follow up w/him tomorrow. Pt states understanding. SW will continue to follow. ALIDA Mir
--- NOTE | 2023-07-13 15:19 | PN_ITS ---
Subjective Subjective Patient seen and examined. He was admitted with a complaitn of LE ulcers. Podiatry on board and he was due to have debridement by podiatry today. However, he was found to be in afib with RVR, so surgery was canceled. He has no complaints. He denies any history of afib. He denies any dizziness, palpitations, nausea, vomiting or any other symptoms. Review of systems is otherwise negative. Objective Data Objective Data Vital Signs: Vital Signs Temp Pulse Resp BP Pulse Ox O2 Del Method 98.3 F 89 14 121/72 H 95 Room Air 07/13/23 09:27 07/13/23 09:27 07/13/23 09:27 07/13/23 09:27 07/13/23 09:27 07/13/23 09:46 Oxygen Delivery Method Room Air Weight: 356 lb 11.327 oz Body Mass Index (BMI) 49.7 Intake & Output: Intake and Output for Last 24 Hours 07/11/23 07/12/23 07/13/23 23:59 23:59 23:59 Intake Total 1676.67 / 1676.67 1075 / 1075 Output Total 400 / 400 Balance 1276.67 / 1276.67 1075 / 1075 Lab / Micro Data 07/13/23 05:42 07/13/23 05:42 Labs: Laboratory Results - last 24 hr 07/12/23 14:35: Sodium 141, Potassium 2.4 L*, Chloride 109 H, Carbon Dioxide 26.0, Anion Gap 6, BUN 12, Creatinine 1.02, Estim Creat Clear Calc 105.13, Est GFR (MDRD) Af Amer 93, Est GFR (MDRD) Non-Af 77, BUN/Creatinine Ratio 11.8, Glucose 102, Lactic Acid 2.0, Calcium 9.0, S.aureus Protein A PCR POSITIVE H, MRSA (PCR) Negative 07/12/23 20:15: Lactic Acid 0.8 07/13/23 05:42: WBC 7.6, RBC 3.71 L, Hgb 10.6 L, Hct 32.8 L, MCV 88.4, MCH 28.6, MCHC 32.3, RDW Std Deviation 42.4, RDW Coeff of Thiago 13.1, Plt Count 264, MPV 9.2, Immature Gran % (Auto) 0.800, Neut % (Auto) 75.0 H, Lymph % (Auto) 11.0 L, [place] % (Auto) 10.0, Eos % (Auto) 2.4, Baso % (Auto) 0.8, Absolute Neuts (auto) 5.7, Absolute Lymphs (auto) 0.84, Nucleated RBC % 0, PT 15.6 H, INR 1.2, APTT 34.8, Sodium 145, Potassium 3.0 L, Chloride 117 H, Carbon Dioxide 24.0, Anion Gap 4 L, BUN 10, Creatinine 0.83, Estim Creat Clear Calc 128.73, Est GFR (MDRD) Af Amer 118, Est GFR (MDRD) Non-Af 97, BUN/Creatinine Ratio 12.0, Glucose 99, Calcium 7.9 L Micro: Microbiology 07/12/23 14:30 Wound - Heel Gram Stain - Final 07/12/23 14:30 Wound - Heel Wound Culture - Preliminary Gram negative kim Gram negative kim#2 Radiography Diagnostic Testing: Radiology Impression Foot X-Ray 07/12/23 15:00 IMPRESSION: Diffuse soft tissue swelling worse in the dorsal aspect with a large ulcerated lesion overlying the posterior aspect of the calcaneus. Electronically Signed: Ferny Estrada MD at 15:21 EST , Echocardiogram 07/13/23 09:57 Interpretation Summary The estimated ejection fraction is 60 %. No evidence for diastolic dysfunction. Trivial aortic valve insufficiency. Ordering Physician: Aundrea Lange Referring Physician: [facility] Performed By: Elida Morris, RDCS, RVT Physical Exam Const alert, oriented x3 and no apparent distress General Appearance: cooperative and well developed HEENT normocephalic, head/scalp atraumatic, moist oral mucous membranes and oropharynx normal Eyes PERRL and EOMs intact bilaterally Neck no lymphadenopathy and supple Lymph Lymphatic: no lymphadenopathy noted and no lymphedema noted Resp normal respiratory effort, normal air movement and clear to auscultation bilaterally Cardio regular rate, regular rhythm, S1 normal heart sound, S2 normal heart sound and no murmurs GI normal to inspection, nondistended, normoactive bowel sounds, soft to palpation, non-tender and non-distended Extremity Extremity Narrative: bilateral lymphadenopathy. LLE wrapped in bandage Skin Skin Narrative: as under extremities. Has chronic stasis dermatitis. Neuro CN's II-XII intact bilaterally, no focal motor deficits, no sensory deficits noted and deep tendon reflexes 2+ bilaterally Motor Exam: strength 5/5 throughout and general weakness Psych thought process normal and cooperative Appearance: appropriate Assessment & Plan Assessment/Plan (1) Cellulitis of right lower extremity: (2) Lymphedema: (3) Ulcer of right lower extremity with fat layer exposed: PLAN: Plan #RLE cellulitis with ulceration * Has severe bilateral lower extremity lymphedema. Has assisted ulceration. On IV vancomycin and Zosyn. * Wound cultures and blood cultures ordered. * MRI of the left foot also ordered. He was due to have debridement done and he had it today but this was canceled as he was noted to be in A-fib. * Podiatry and ID on board. * #Severe bilateral lymphedema: On oral Lasix on outpatient basis. Will continue Lasix. Will need follow-up with wound care. #New onset A-fib: * Patient has no known history of A-fib. * He has however not been to a doctor in many years. * 2D echo done showed EF of 65% with no regional wall motion abnormalities. * Started on low-dose metoprolol. Start on therapeutic Lovenox. * Patient was medically risk stratified for surgery with moderate risk. Can go for surgery * Check TSH and monitor potassium and magnesium to be sure they above 4 and more than 2 respectively. * #Hypokalemia: Will replace and monitor. # Homelessness: Complicates care, medical course and recovery. Case management on board. Will likely need placement. DVT prophylaxis: Start on therapeutic Lovenox. Charges/Coding Visit Charges Inpatient E&M: 83688 Subs Hosp L2
[2023-07-13 15:48] LABS: Magnesium 1.9 mg/dL (1.6-2.6); Thyroid Stim Hormone (TSH) 1.44 uIU/mL (0.358-3.74)
[2023-07-13] MEDS: Menthol/Lanolin/Calamine/Znox 113 GM Tube 1 APPLIC TOPICAL ×2 (16:43→20:44)
--- NOTE | 2023-07-13 18:29 | CASEMGMT ---
Social Work SW introduced self and role to patient. SW explained SDOH and patient agreeable to answer questions. Pt denies concerns but patient does live in his vehicle now for 11 years. Pt reports he is learning he may need regular housing or a facility at this point. SW discussed housing options and likely need for additional therapy due to surgery. Pt reports the wounds were opening back up due to his legs being down in his vehicle and getting stuck on the vehicle plastic and cardboard. Pt has had some food concerns due to lack of mobility and if he is out of gas. Patient reports planning ahead for winter and summer and saving so he can have heat or air. SW provided emotional support and encouragement. Patient reports he is willing to go to SNF if needed which would solve most concerns for patient. Patient will be having surgery at some point and then likely will have placement for additional therapy. Pt may need resources if he discharges home or for a more long-term housing solution like assisted living. Estelle Cota SPLIT LEATHER DEPARTMENT SUPERVISOR, SUGAR CANE GROWER
[2023-07-13] MEDS: Heparin Injection (Vial) 5,000 UNIT/ML VIAL 5000 UNIT SC (20:42)
[2023-07-13] MEDS: Miconazole Nitrate 43 GM Bottle 1 APPLIC TOPICAL (20:43)
[2023-07-13 22:13] VITALS: BP 122/75; PULSE 94; RESP 16; TEMP 36.7; O2SAT 97
[2023-07-14 03:31] LABS: Absolute Lymphocyte Count 0.83 X10^3/uL (0.83-4.51); Absolute Neutrophil Count 5.2 X10^3/uL (2.0-7.7); Basophil# 0.07 X10^3/uL; Eosinophil# 0.36 X10^3/uL; Eosinophils% 5.1 % (0-5); Hematocrit 32.5 % (40-54); Hemoglobin 10.3 g/dL (13.0-16.5); Lymphocyte # 0.83 X10^3/ul (0.83-4.51); Lymphocyte % 11.7 % (19-41); Mean Corp Hgb Conc 31.7 g/dL (32-36); Mean Corpuscular Hgb 28.3 pg (27.0-32.0); Mean Corpuscular Volume 89.3 fL (80-94); Mean Platelet Vol. 8.8 fl (6.2-12.0); Monocyte# 0.64 X10^3/uL; NRBC Flagged by Analyzer 0 % (0-5); Neutrophil # 5.15 X10^3/uL (2.7-7.7); Neutrophil % 72.8 % (47-70); Platelet Count 257 K/mm3 (150-450); RBC Distribution Width CV 13.1 % (11.6-14.6); RBC Distribution Width SD 42.6 fl (35.1-43.9); Red Blood Count 3.64 M/mm3 (4.6-6.2); White Blood Count 7.1 K/mm3 (4.4-11.0)
[2023-07-14 03:46] LABS: Anion Gap 3 (5-15); BUN 10 mg/dL (7-18); BUN/Creat Ratio 11.7 RATIO (10-20); Chloride 117 mmol/L (98-107); Creatinine, Serum 0.85 mg/dL (0.70-1.30); EST Glomerular Filtration Rate 94 mL/min (>60); Est Glom Filt Rate - Afr Amer 114 mL/min (>60); Glucose 103 mg/dL (74-106); Potassium 3.2 mmol/L (3.5-5.1); Sodium Level 145 mmol/L (136-145)
[2023-07-14 03:48] LABS: Vancomycin, Trough Level 23.4 ug/mL (5.0-15.0)
--- NOTE | 2023-07-14 03:57 | PCM.RX.CS ---
Consult Antibiotic Management Pharmacy has been consulted to manage selected antibiotic: Vancomycin Type of Intervention Type of Consult: Follow-up Suspected Infection Suspected Infection: Skin/Soft tissue Labs Labs: Sodium 145 mmol/L (136-145) 07/14/23 03:25 Potassium 3.2 mmol/L (3.5-5.1) L 07/14/23 03:25 Chloride 117 mmol/L (98-107) H 07/14/23 03:25 Carbon Dioxide 25.0 mmol/L (21.0-32.0) 07/14/23 03:25 Anion Gap 3 (5-15) L 07/14/23 03:25 BUN 10 mg/dL (7-18) 07/14/23 03:25 Creatinine 0.85 mg/dL (0.70-1.30) 07/14/23 03:25 Est GFR (MDRD) Af Amer 114 mL/min (>60) 07/14/23 03:25 Est GFR (MDRD) Non-Af 94 mL/min (>60) 07/14/23 03:25 BUN/Creatinine Ratio 11.7 RATIO (10-20) 07/14/23 03:25 Glucose 103 mg/dL (74-106) 07/14/23 03:25 Vancomycin Trough 23.4 ug/mL (5.0-15.0) H 07/14/23 03:25 Microbiology Microbiology: Microbiology 07/12/23 14:30 Wound - Heel Gram Stain - Final 07/12/23 14:30 Wound - Heel Wound Culture - Preliminary Gram negative kim Gram negative kim#2 Dosing Weight Weight used for dosin.8 kg Estimated Creatinine Clearance Estimated Creatinine Clearance: 126 Goal Trough Goal Trough: 10-15 mcg/mL Pharmacy Plan for Drug Dosing Pharmacy Plan for Drug Dosing: Vancomycin trough level, drawn 10.75hrs post-dose, was 23.4. This was above the target range of 10-15mcg/ml. Current dosing will be held, and a random level will be drawn in 12 hours to determine further dosing. Pharmacy Service will continue to monitor and adjust dosing as required. Follow-Up Labs Follow-Up Labs: Trough: Vancomycin (random) Date/Time Labs Ordered Labs to be done on [date and time ordered]: 07/14/23 @3393
[2023-07-14 04:00] VITALS: BP 125/74; PULSE 85; RESP 16; TEMP 36.9; O2SAT 99
[2023-07-14] MEDS: Vancomycin Trough/Random Due 1 LAB MC (04:47)
[2023-07-14] MEDS: Piperacil/Tazobactam 3.375 GM in 0.9% Normal Saline (50mL MB+) 50 ML IV ×3 (04:48→20:42)
--- NOTE | 2023-07-14 10:01 | PCM.PROGNOTE ---
Subjective Subjective Patient was seen this morning for follow up on left heel ulceration. He is resting in bed, he is about to get MRI. He had Echo done yesterday. Patient with no new complaints, no f/c/n/v. Objective Data Objective Data Vital Signs: Vital Signs Temp Pulse Resp BP Pulse Ox O2 Del Method 98.5 F 85 16 125/74 H 99 Room Air 07/14/23 04:00 07/14/23 04:00 07/14/23 04:00 07/14/23 04:00 07/14/23 04:00 07/14/23 08:00 Oxygen Delivery Method Room Air Weight: 161.8 kg Body Mass Index (BMI) 49.7 Intake & Output: Intake and Output for Last 24 Hours 07/12/23 07/13/23 07/14/23 23:59 23:59 23:59 Intake Total 1676.67 / 1676.67 2381.25 / 2621.25 580 / 580 Output Total 400 / 400 500 / 500 Balance 1276.67 / 1276.67 2381.25 / 2321.25 80 / 80 Lab / Micro Data 07/14/23 03:25 07/14/23 03:25 Labs: Laboratory Results - last 24 hr 07/13/23 05:42: Magnesium 1.9, TSH 1.44 07/14/23 03:25: WBC 7.1, RBC 3.64 L, Hgb 10.3 L, Hct 32.5 L, MCV 89.3, MCH 28.3, MCHC 31.7 L, RDW Std Deviation 42.6, RDW Coeff of Thiago 13.1, Plt Count 257, MPV 8.8, Immature Gran % (Auto) 0.400, Neut % (Auto) 72.8 H, Lymph % (Auto) 11.7 L, [place] % (Auto) 9.0, Eos % (Auto) 5.1 H, Baso % (Auto) 1.0, Absolute Neuts (auto) 5.2, Absolute Lymphs (auto) 0.83, Nucleated RBC % 0, Sodium 145, Potassium 3.2 L, Chloride 117 H, Carbon Dioxide 25.0, Anion Gap 3 L, BUN 10, Creatinine 0.85, Estim Creat Clear Calc 125.70, Est GFR (MDRD) Af Amer 114, Est GFR (MDRD) Non-Af 94, BUN/Creatinine Ratio 11.7, Glucose 103, Calcium 8.0 L, Vancomycin Trough 23.4 H Micro: Microbiology 07/12/23 14:30 Wound - Heel Gram Stain - Final 07/12/23 14:30 Wound - Heel Wound Culture - Preliminary Gram negative kim Gram negative kim#2 Gram positive kim Coag Negative Staph 07/12/23 14:35 Blood Culture (Wb) - Anticubital Left Blood Culture - Preliminary No growth in 48 hours. 07/12/23 14:30 Blood Culture (Wb) - Left Wrist Blood Culture - Preliminary No growth in 48 hours. Radiography Diagnostic Testing: Radiology Impression Echocardiogram 07/13/23 09:57 Interpretation Summary The estimated ejection fraction is 60 %. No evidence for diastolic dysfunction. Trivial aortic valve insufficiency. Ordering Physician: Aundrea Lange Referring Physician: [facility] Performed By: Elida Morris, DON, RVT Physical Exam Narrative Large ulceration to the plantar posterior left heel down to subc and fascia tissue and appears to probe to bone as well, there is significant necrotic tissue to the wound, but there is some granular tissue noted, there is maloder and drainage consistent with infection. There is significant bilateral chronic lymphedema to the lower extremity. No other open lesions bilateral, CFT < 2 seconds to all toes, no evidence of acute ischemia, there is chronic appearing peripheral neuropathy bilateral. Toenails are thickened and dystrophic bilateral. Const alert, oriented x3 and no apparent distress Assessment & Plan Assessment/Plan (1) Cellulitis of foot, left: (2) Lymphedema: (3) Non-pressure chronic ulcer of other part of left foot with necrosis of bone: PLAN: Plan Evaluation performed. Reviewed diagnostic data. Foot stable. Given the findings discussed debridement of left heel ulcer down to bone with biopsy of bone. Reviewed procedure, as well as possible benefits vs risks, goals, expectations. Surgery was postponed yesterday due to a fib, he has been cleared to proceed with surgery - will plan for tomorrow am for OR debridement. A culture has been obtained and pending, patient on is IV antibiotics as this time. Infectious disease on consult. MRI has been ordered. No weightbearing left foot. Keep keep offloaded. Will likely plan for wound vac after surgery. Podiatry will continue to follow.
--- NOTE | 2023-07-14 10:03 | MRI_ITS ---
STUDY: MRI LEFT REARFOOT WITHOUT CONTRAST REASON FOR EXAM: Male, 68 years old. osteomyelitis left heel TECHNIQUE: Standardized fat and water weighted pulse sequences were obtained in all 3 orthogonal planes. COMPARISON: Left foot x-ray dated July 12, 2023 FINDINGS: Moderate area of ulcerated soft tissues in the posterior plantar aspect of the heel measures 3.40 cm in diameter. No abscess or sinus tract is seen, however mild cortical and intramedullary erosion and edema is present in the posterior calcaneal process due to osteomyelitis and reactive edema. There are no additional areas of osteomyelitis in the ankle or included portions of the foot. Moderate to significant subcutaneous edema and swelling is present. There is significant fatty replacement of the muscle fibers of the lower leg and foot. No visualized Winston''s abscess. The tendons are grossly intact. Normal Achilles tendon and teno-osseous insertion. Normal plantar fascia. Normal plantar calcaneal tubercles. Normal intrinsic muscles of the rearfoot. Normal tibiotalar articulation. Normal talar dome. Normal subtalar articulations. Normal talonavicular articulation. Normal calcaneocuboid articulation. Normal navicular-cuneiform articulations. MRI/Lower Ext/No Jt/w/o IMPRESSION: 1. Mild osteomyelitis in the posterior aspect of the calcaneal facet with an overlying soft tissue ulcer. Electronically Signed: Daniel Noriega MD at 15:59 EST ,
--- NOTE | 2023-07-14 10:20 | PCM.PROGNOTE ---
Subjective Subjective Patient seen and examined. He felt well and had no active complaints. Review of systems is otherwise negative. He has remained hemodynamically stable. Objective Data Objective Data Vital Signs: Vital Signs Temp Pulse Resp BP Pulse Ox O2 Del Method 98.5 F 85 16 125/74 H 99 Room Air 07/14/23 04:00 07/14/23 04:00 07/14/23 04:00 07/14/23 04:00 07/14/23 04:00 07/14/23 08:00 Oxygen Delivery Method Room Air Weight: 356 lb 11.327 oz Body Mass Index (BMI) 49.7 Intake & Output: Intake and Output for Last 24 Hours 07/12/23 07/13/23 07/14/23 23:59 23:59 23:59 Intake Total 1676.67 / 1676.67 2381.25 / 2621.25 580 / 580 Output Total 400 / 400 500 / 500 Balance 1276.67 / 1276.67 2381.25 / 2321.25 80 / 80 Lab / Micro Data 07/14/23 03:25 07/14/23 03:25 Labs: Laboratory Results - last 24 hr 07/13/23 05:42: Magnesium 1.9, TSH 1.44 07/14/23 03:25: WBC 7.1, RBC 3.64 L, Hgb 10.3 L, Hct 32.5 L, MCV 89.3, MCH 28.3, MCHC 31.7 L, RDW Std Deviation 42.6, RDW Coeff of Thiago 13.1, Plt Count 257, MPV 8.8, Immature Gran % (Auto) 0.400, Neut % (Auto) 72.8 H, Lymph % (Auto) 11.7 L, Mccone % (Auto) 9.0, Eos % (Auto) 5.1 H, Baso % (Auto) 1.0, Absolute Neuts (auto) 5.2, Absolute Lymphs (auto) 0.83, Nucleated RBC % 0, Sodium 145, Potassium 3.2 L, Chloride 117 H, Carbon Dioxide 25.0, Anion Gap 3 L, BUN 10, Creatinine 0.85, Estim Creat Clear Calc 125.70, Est GFR (MDRD) Af Amer 114, Est GFR (MDRD) Non-Af 94, BUN/Creatinine Ratio 11.7, Glucose 103, Calcium 8.0 L, Vancomycin Trough 23.4 H Micro: Microbiology 07/13/23 08:14 Wound - Heel, Left Wound Culture - Preliminary Gram negative kim 07/12/23 14:30 Wound - Heel Gram Stain - Final 07/12/23 14:30 Wound - Heel Wound Culture - Preliminary Gram negative kim Gram negative kim#2 Gram positive kim Coag Negative Staph 07/12/23 14:35 Blood Culture (Wb) - Anticubital Left Blood Culture - Preliminary No growth in 48 hours. 07/12/23 14:30 Blood Culture (Wb) - Left Wrist Blood Culture - Preliminary No growth in 48 hours. Radiography Diagnostic Testing: Radiology Impression Echocardiogram 07/13/23 09:57 Interpretation Summary The estimated ejection fraction is 60 %. No evidence for diastolic dysfunction. Trivial aortic valve insufficiency. Ordering Physician: Aundrea Lange Referring Physician: [facility] Performed By: Elida Morris, DON, RVT Physical Exam Const alert, oriented x3 and no apparent distress Constitutional Narrative: Patient is morbidly obese, he appears older than his stated age, hygiene is poor General Appearance: cooperative and well developed Orientation / Consciousness: awake, oriented to person, oriented to place and oriented to time HEENT normocephalic, head/scalp atraumatic, hearing grossly normal bilaterally, moist oral mucous membranes and oropharynx normal Eyes PERRL, EOMs intact bilaterally and conjunctivae normal Neck no lymphadenopathy, supple, no JVD, thyroid normal and no carotid bruits General: trachea midline Lymph Lymphatic: no lymphadenopathy noted and no lymphedema noted Resp normal respiratory effort, normal air movement, no retractions, no use of accessory muscles and clear to auscultation bilaterally Auscultation: Negative for rales, rhonchi or wheezes Cardio regular rate, regular rhythm, S1 normal heart sound, S2 normal heart sound, no murmurs, no rub and no gallops GI normal to inspection, nondistended, normoactive bowel sounds, soft to palpation, non-tender and non-distended Extremity Extremity Narrative: bilateral lymphadenopathy. LLE wrapped in bandage Skin Skin Narrative: as under extremities. Has chronic stasis dermatitis. Neuro oriented x3, CN's II-XII intact bilaterally, no focal motor deficits, no sensory deficits noted and deep tendon reflexes 2+ bilaterally Sensorium / Orientation: awake and alert Speech: speech normal Motor Exam: strength 5/5 throughout and general weakness Psych thought process normal, cooperative and affect normal Appearance: appropriate Assessment & Plan Assessment/Plan (1) Cellulitis of right lower extremity: (2) Lymphedema: (3) Ulcer of right lower extremity with fat layer exposed: PLAN: Plan #RLE cellulitis with ulceration Has severe bilateral lower extremity lymphedema. Has associated ulceration. On IV vancomycin and Zosyn. Wound cultures and blood cultures ordered. MRI of the left foot also ordered. He was due to have debridement done yesterday by podiatry, but this was canceled as he was noted to be in A-fib. Podiatry and ID on board. per podiatry, for surgery tomorrow. #Severe bilateral lymphedema: On oral Lasix on outpatient basis. Will continue Lasix. Will need follow-up with wound care. #New onset A-fib: Patient has no known history of A-fib. He has however not been to a doctor in many years. 2D echo done showed EF of 65% with no regional wall motion abnormalities. Started on low-dose metoprolol. Start on therapeutic Lovenox. Patient was medically risk stratified for surgery with moderate risk. Can go for surgery TSH is WNL Patient still in A-fib though rate controlled: Start on p.o. metoprolol 25 mg twice daily and therapeutic Lovenox. Will switch to Eliquis at discharge. #Hypokalemia: Potassium today is 3.2. Replace aggressively and monitor. Monitor magnesium also. # Homelessness: Complicates care, medical course and recovery. Case management on board. Will likely need placement. DVT prophylaxis: Start on therapeutic Lovenox. Charges/Coding Visit Charges Inpatient E&M: 68413 Subs Hosp L2
[2023-07-14 10:30] VITALS: BP 129/72; PULSE 100; RESP 18; TEMP 36.6; O2SAT 96
[2023-07-14 10:33] VITALS: PULSE 100
[2023-07-14] MEDS: Metoprolol Tartrate 25 MG Tablet PO ×2 (10:33→20:43)
[2023-07-14] MEDS: Potassium Chloride Oral Tablet 20 MEQ 40 MEQ PO (10:33)
[2023-07-14] MEDS: Menthol/Lanolin/Calamine/Znox 113 GM Tube 1 APPLIC TOPICAL ×2 (10:33→20:47)
[2023-07-14] MEDS: Miconazole Nitrate 43 GM Bottle 1 APPLIC TOPICAL ×2 (10:33→20:47)
[2023-07-14] MEDS: 0.9% Saline Lock 10 ML Syringe IV ×3 (10:57→18:02)
[2023-07-14] MEDS: LORazepam 2 MG/ML Syringe IV (10:58)
[2023-07-14 11:03] LABS: Magnesium 1.9 mg/dL (1.6-2.6)
[2023-07-14 12:22] LABS: M R Staph aureus DNA By PCR Negative (Negative); Staph aureus DNA By PCR POSITIVE (Negative)
[2023-07-14 12:23] LABS: Probe Check PASS; Specimen Processing Control PASS
--- NOTE | 2023-07-14 13:52 | CASEMGMT ---
Social Work SW spoke w/pt about SNF choices. Pt [facility] like [facility], or [facility]. SW/d/c event planning manager will make referrals Sunday, as pt is having surgery tomorrow. SW will continue to follow. ALIDA Mir
[2023-07-14 15:24] VITALS: BP 113/89; PULSE 67; RESP 18; TEMP 36.4; O2SAT 97
[2023-07-14 16:37] LABS: Vancomycin, Random Level 14.3 ug/mL (0.0-15.0)
--- NOTE | 2023-07-14 16:46 | PCM.RX.CS ---
Consult Antibiotic Management Pharmacy has been consulted to manage selected antibiotic: Vancomycin Type of Intervention Type of Consult: Follow-up Suspected Infection Suspected Infection: Skin/Soft tissue Prior Doses of Antibiotics Prior Doses of Antibiotics Received/Current Regimen: Vancomycin on hold d/t elevated trough Labs Labs: Sodium 145 mmol/L (136-145) 07/14/23 03:25 Potassium 3.2 mmol/L (3.5-5.1) L 07/14/23 03:25 Chloride 117 mmol/L (98-107) H 07/14/23 03:25 Carbon Dioxide 25.0 mmol/L (21.0-32.0) 07/14/23 03:25 Anion Gap 3 (5-15) L 07/14/23 03:25 BUN 10 mg/dL (7-18) 07/14/23 03:25 Creatinine 0.85 mg/dL (0.70-1.30) 07/14/23 03:25 Est GFR (MDRD) Af Amer 114 mL/min (>60) 07/14/23 03:25 Est GFR (MDRD) Non-Af 94 mL/min (>60) 07/14/23 03:25 BUN/Creatinine Ratio 11.7 RATIO (10-20) 07/14/23 03:25 Glucose 103 mg/dL (74-106) 07/14/23 03:25 Vancomycin Trough 23.4 ug/mL (5.0-15.0) H 07/14/23 03:25 Random Vancomycin 14.3 ug/mL (0.0-15.0) 07/14/23 15:36 Microbiology Microbiology: Microbiology 07/13/23 08:14 Wound - Heel, Left Gram Stain - Final 07/13/23 08:14 Wound - Heel, Left Wound Culture - Preliminary Gram negative kim 07/12/23 14:30 Wound - Heel Gram Stain - Final 07/12/23 14:30 Wound - Heel Wound Culture - Preliminary Gram negative kim Gram negative kim#2 Gram positive kim Coag Negative Staph 07/12/23 14:35 Blood Culture (Wb) - Anticubital Left Blood Culture - Preliminary No growth in 48 hours. 07/12/23 14:30 Blood Culture (Wb) - Left Wrist Blood Culture - Preliminary No growth in 48 hours. Dosing Weight Weight used for dosin kg Estimated Creatinine Clearance Estimated Creatinine Clearance: 126 Goal Trough Goal Trough: 10-15 mcg/mL Pharmacy Plan for Drug Dosing Pharmacy Plan for Drug Dosing: Vancomycin repeat trough = 14.3. Reduce dosing to 1000 mg Q12H, trough prior to 4th dose. Pharmacy Service will continue to monitor and adjust dosing as required. Follow-Up Labs Follow-Up Labs: Trough: Vancomycin Date/Time Labs Ordered Labs to be done on [date and time ordered]: 07/16/23 @ 3617
[2023-07-14] MEDS: Vancomycin IV 1,000 MG/200 ML BAG 200 MG IV (18:02)
[2023-07-14 20:43] VITALS: BP 117/67; PULSE 99
[2023-07-14 21:20] VITALS: BP 117/67; PULSE 87; RESP 18; TEMP 36.7; O2SAT 96
[2023-07-14] MEDS: Acetaminophen 325 MG Tablet 650 MG PO (22:47)
[2023-07-15] VITALS (12 sets, daily range): BP systolic 102–149; BP diastolic 58–99; PULSE 64–93; RESP 15–18; TEMP 36.5–36.8; O2SAT 94–100
[2023-07-15] MEDS: Piperacil/Tazobactam 3.375 GM in 0.9% Normal Saline (50mL MB+) 50 ML IV ×3 (05:11→20:25)
[2023-07-15] MEDS: Vancomycin IV 1,000 MG/200 ML BAG 200 MG IV ×2 (05:12→17:23)
[2023-07-15 06:51] LABS: Absolute Lymphocyte Count 0.97 X10^3/uL (0.83-4.51); Absolute Neutrophil Count 4.6 X10^3/uL (2.0-7.7); Basophil# 0.08 X10^3/uL; Basophil% 1.2 % (0-1); Eosinophil# 0.42 X10^3/uL; Eosinophils% 6.3 % (0-5); Hematocrit 34.3 % (40-54); Lymphocyte # 0.97 X10^3/ul (0.83-4.51); Lymphocyte % 14.6 % (19-41); Mean Corp Hgb Conc 32.1 g/dL (32-36); Mean Corpuscular Hgb 28.7 pg (27.0-32.0); Mean Corpuscular Volume 89.6 fL (80-94); Monocyte# 0.52 X10^3/uL; Monocyte% 7.8 % (0-10); NRBC Flagged by Analyzer 0 % (0-5); Neutrophil # 4.59 X10^3/uL (2.7-7.7); Neutrophil % 69.3 % (47-70); Platelet Count 279 K/mm3 (150-450); RBC Distribution Width CV 13.2 % (11.6-14.6); RBC Distribution Width SD 43.3 fl (35.1-43.9); Red Blood Count 3.83 M/mm3 (4.6-6.2); White Blood Count 6.6 K/mm3 (4.4-11.0)
[2023-07-15 07:18] LABS: Anion Gap 2 (5-15); BUN 14 mg/dL (7-18); Calcium,Total 8.7 mg/dL (8.5-10.1); Chloride 116 mmol/L (98-107); Creatinine, Serum 0.93 mg/dL (0.70-1.30); EST Glomerular Filtration Rate 85 mL/min (>60); Est Glom Filt Rate - Afr Amer 103 mL/min (>60); Estimated Creatinine Clearance 114.89 ml/min; Glucose 106 mg/dL (74-106); Potassium 3.5 mmol/L (3.5-5.1); Sodium Level 143 mmol/L (136-145)
[2023-07-15] MEDS: Bupivacaine Mpf 0.5% 30 ML VIAL (08:15)
--- NOTE | 2023-07-15 08:28 | OP.PCM_ITS ---
Report of Operation Date of Procedure: 07/15/23 Pre-Operative Diagnosis: Necrotic left heel ulcer down to bone with calcaneal o steomyelitis Post-Operative Diagnosis: Same Surgery/Procedure Performed:: Debridement of left heel ulcer down to and including bone Surgeon: Alejandro Sanders router operator radial: None Type of Anesthesia: General Specimen's removed: 1. Debrided necrotic left heel ulceration sent to pathology 2. Left calcaneus bone biopsy left heel sent to pathology and microbiology Estimated Blood Loss (mL): 100mL Description of Procedure: Indications: 68 year old gentleman with history of medical problems has necrotic left heel ulceration infection with calcaneal osteomyelitis. He elected to proceed with surgical intervention. The consent form was reviewed with him and he freely signed it. The risks were reviewed with him and he was advised these include but not limited to pain, further or worsening infection, blood clot, need for further procedures, deformity, loss of limb, loss of life. He was able to repeat back and still elected to proceed forward. No guarantees were given nor implied. No warranties were given. Pre op MRI was obtained which did have findings c/w osteomyelitis to the calcaneus on the left foot. The surgery was postponed due to a fib and further evaluation, he has been cleared to proceed with surgical intervention. Operative Procedure: The patient was brought back to the operating room, he received anesthesia per the anesthesia team, and was placed on the operating room table in the prone position properly padded and offloaded. He was secured to the operating room table with a safety belt around his waist. A timeout was performed and the patient was properly identified and the surgical plan was confirmed. A tourniquet was not used due to severe chronic lymphedema. The left foot was scrubbed, prepped, and draped in the usual aseptic fashion. Further attention was directed to the left heel foot, there again was noted to be maloderous necrotic heel ulceration infection down to fascia and bone. At this time all nonviable, infected and necrotic tissue was debrided from the site using a 15 blade in excisional fashion down to and including bone. The necrotic tissue extended down to bone, a bone biopsy was obtained using a lino bone biopsy kit and the bone biopsy was sent to pathology and microbiology for further evaluation. The debrided tissue from the left heel was also sent to pathology. The tissue was debrided down to healthy viable tissue. The site was flushed with copious amounts of normal saline solution. There was significant bleeding, hemostasis was achieved with pressure and gauze. A total of 10mL of 0.5% Bupivacaine plain was given as a nerve block to the left heel at the end. A dressing of surgicel, adaptic, 4x4 gauze, kerlix, abd pads, and noe dressing was applied. The patient tolerated the procedure well and anesthesia well with no comp lications. The patient was transported from the operating room to the recovery room with vital signs stable and in good condition. Post operative orders were placed. Patient will be followed as an inpatient. Grafts/Implants Used: None Complications None
[2023-07-15 09:08] LABS: Hematocrit 35.7 % (40-54); Hemoglobin 11.2 g/dL (13.0-16.5)
[2023-07-15] MEDS: Miconazole Nitrate 43 GM Bottle 1 APPLIC TOPICAL ×2 (09:19→20:35)
[2023-07-15] MEDS: Menthol/Lanolin/Calamine/Znox 113 GM Tube 1 APPLIC TOPICAL ×2 (09:19→20:34)
[2023-07-15] MEDS: Metoprolol Tartrate 25 MG Tablet PO ×2 (09:20→20:28)
[2023-07-15] MEDS: 0.9% Saline Lock 10 ML Syringe IV ×2 (13:50→17:23)
--- NOTE | 2023-07-15 14:26 | PN_ITS ---
Subjective Subjective Patient seen and examined. He had no active complaints. Pain was well controlled. He had debridement of the right foot ulcer down to and including the bone. Today is POD 0. He has remained hemodynamically stable. Objective Data Objective Data Vital Signs: Vital Signs Temp Pulse Resp BP Pulse Ox O2 Del Method O2 Flow Rate 97.8 F 64 18 102/58 L 95 Room Air 2 07/15/23 13:15 07/15/23 13:15 07/15/23 13:15 07/15/23 13:15 07/15/23 13:15 07/15/23 13:15 07/15/23 08:45 Oxygen Flow Rate (L/min) 2 Oxygen Delivery Method Room Air Weight: 356 lb 11.327 oz Body Mass Index (BMI) 49.7 Intake & Output: Intake and Output for Last 24 Hours 07/13/23 07/14/23 07/15/23 23:59 23:59 23:59 Intake Total 2381.25 / 2621.25 1880 / 1880 800 / 800 Output Total 1200 / 1200 300 / 300 Balance 2381.25 / 2321.25 680 / 680 500 / 500 Lab / Micro Data 07/15/23 09:00 07/15/23 06:00 Labs: Laboratory Results - last 24 hr 07/14/23 15:36: Random Vancomycin 14.3 07/15/23 06:00: WBC 6.6, RBC 3.83 L, Hgb 11.0 L, Hct 34.3 L, MCV 89.6, MCH 28.7, MCHC 32.1, RDW Std Deviation 43.3, RDW Coeff of Thiago 13.2, Plt Count 279, MPV 9.0, Immature Gran % (Auto) 0.800, Neut % (Auto) 69.3, Lymph % (Auto) 14.6 L, [place] % (Auto) 7.8, Eos % (Auto) 6.3 H, Baso % (Auto) 1.2 H, Absolute Neuts (auto) 4.6, Absolute Lymphs (auto) 0.97, Nucleated RBC % 0, Sodium 143, Potassium 3.5, Chloride 116 H, Carbon Dioxide 25.0, Anion Gap 2 L, BUN 14, Creatinine 0.93, Estim Creat Clear Calc 114.89, Est GFR (MDRD) Af Amer 103, Est GFR (MDRD) Non-Af 85, BUN/Creatinine Ratio 15.0, Glucose 106, Calcium 8.7 07/15/23 09:00: Hgb 11.2 L, Hct 35.7 L Micro: Microbiology 07/13/23 08:14 Wound - Heel, Left Gram Stain - Final 07/13/23 08:14 Wound - Heel, Left Wound Culture - Preliminary Gram negative kim 07/12/23 14:30 Wound - Heel Gram Stain - Final 07/12/23 14:30 Wound - Heel Wound Culture - Final Escherichia coli Providencia rettgeri Gram positive kim Coag Negative Staph 07/12/23 14:35 Blood Culture (Wb) - Anticubital Left Blood Culture - Preliminary No growth in 48 hours. 07/12/23 14:30 Blood Culture (Wb) - Left Wrist Blood Culture - Preliminary No growth in 48 hours. Radiography Diagnostic Testing: Radiology Impression Lower Extremity MRI 07/14/23 10:03 IMPRESSION: 1. Mild osteomyelitis in the posterior aspect of the calcaneal facet with an overlying soft tissue ulcer. Electronically Signed: Daniel Noriega MD at 15:59 EST Reading Location ID and State: [address] [place] [address] , Service support , Physical Exam Const alert, oriented x3 and no apparent distress Constitutional Narrative: Patient is morbidly obese, he appears older than his stated age. General Appearance: cooperative and well developed Orientation / Consciousness: awake, oriented to person, oriented to place and oriented to time HEENT normocephalic, head/scalp atraumatic, hearing grossly normal bilaterally, moist oral mucous membranes and oropharynx normal Eyes PERRL, EOMs intact bilaterally and conjunctivae normal Neck no lymphadenopathy, supple, no JVD, thyroid normal and no carotid bruits General: trachea midline Lymph Lymphatic: no lymphadenopathy noted and no lymphedema noted Resp normal respiratory effort, normal air movement, no retractions, no use of accessory muscles and clear to auscultation bilaterally Auscultation: Negative for rales, rhonchi or wheezes Cardio regular rate, regular rhythm, S1 normal heart sound, S2 normal heart sound, no murmurs, no rub and no gallops GI normal to inspection, nondistended, normoactive bowel sounds, soft to palpation, non-tender and non-distended Extremity Extremity Narrative: bilateral lymphadenopathy. LLE wrapped in bandage General Extremity: no tenderness to palpation of joints or extremities Skin Skin Narrative: as under extremities. Has chronic stasis dermatitis. Neuro oriented x3, CN's II-XII intact bilaterally, no focal motor deficits, no sensory deficits noted and deep tendon reflexes 2+ bilaterally Sensorium / Orientation: awake and alert Speech: speech normal Motor Exam: strength 5/5 throughout and general weakness Psych thought process normal, cooperative and affect normal Appearance: appropriate Assessment & Plan Assessment/Plan (1) Cellulitis of right lower extremity: (2) Lymphedema: (3) Ulcer of right lower extremity with fat layer exposed: PLAN: Plan #RLE cellulitis with ulceration * Has severe bilateral lower extremity lymphedema. Has associated ulceration. On IV vancomycin and Zosyn. * Wound cultures and blood cultures ordered. * MRI of the left foot also ordered. He was due to have debridement done yesterday by podiatry, but this was canceled as he was noted to be in A-fib. * Podiatry and ID on board. * per podiatry, for surgery tomorrow. * #Severe bilateral lymphedema: * On oral Lasix on outpatient basis. Will continue Lasix. Will need follow-up with wound care. #New onset A-fib: * Patient has no known history of A-fib. * He has however not been to a doctor in many years. * 2D echo done showed EF of 65% with no regional wall motion abnormalities. * Started on low-dose metoprolol. Start on therapeutic Lovenox. * Patient was medically risk stratified for surgery with moderate risk. Can go for surgery * TSH is WNL * Patient still in A-fib though rate controlled: Start on p.o. metoprolol 25 mg twice daily and therapeutic Lovenox. Will switch to Eliquis at discharge. * #Hypokalemia: resolved. Potassium today is 3.5. # Homelessness: Complicates care, medical course and recovery. Case management on board. Will likely need placement. DVT prophylaxis: on therapeutic lovenox Charges/Coding Visit Charges Inpatient E&M: 47195 Subs Hosp L2
[2023-07-15] MEDS: Enoxaparin 150 MG/ML Syringe SC (20:33)
[2023-07-15] MEDS: Acetaminophen 325 MG Tablet 650 MG PO (23:21)
[2023-07-16 03:30] VITALS: BP 103/68; PULSE 69; RESP 16; TEMP 36.4; O2SAT 95
[2023-07-16 05:03] LABS: Absolute Lymphocyte Count 1.11 X10^3/uL (0.83-4.51); Absolute Neutrophil Count 5.7 X10^3/uL (2.0-7.7); Basophil# 0.08 X10^3/uL; Eosinophil# 0.35 X10^3/uL; Eosinophils% 4.4 % (0-5); Hematocrit 31.7 % (40-54); Hemoglobin 9.9 g/dL (13.0-16.5); Lymphocyte # 1.11 X10^3/ul (0.83-4.51); Lymphocyte % 14.1 % (19-41); Mean Corp Hgb Conc 31.2 g/dL (32-36); Mean Corpuscular Hgb 28.3 pg (27.0-32.0); Mean Corpuscular Volume 90.6 fL (80-94); Monocyte# 0.63 X10^3/uL; NRBC Flagged by Analyzer 0 % (0-5); Neutrophil # 5.67 X10^3/uL (2.7-7.7); Neutrophil % 71.9 % (47-70); Platelet Count 255 K/mm3 (150-450); RBC Distribution Width CV 13.3 % (11.6-14.6); RBC Distribution Width SD 43.6 fl (35.1-43.9); White Blood Count 7.9 K/mm3 (4.4-11.0)
[2023-07-16 05:22] LABS: Anion Gap 3 (5-15); BUN 17 mg/dL (7-18); BUN/Creat Ratio 17.3 RATIO (10-20); Calcium,Total 8.2 mg/dL (8.5-10.1); Chloride 114 mmol/L (98-107); Creatinine, Serum 0.98 mg/dL (0.70-1.30); EST Glomerular Filtration Rate 80 mL/min (>60); Est Glom Filt Rate - Afr Amer 97 mL/min (>60); Estimated Creatinine Clearance 109.03 ml/min; Glucose 103 mg/dL (74-106); Potassium 3.6 mmol/L (3.5-5.1); Sodium Level 143 mmol/L (136-145)
[2023-07-16 05:24] LABS: Vancomycin, Trough Level 15.7 ug/mL (5.0-15.0)
--- NOTE | 2023-07-16 05:29 | PCM.RX.CS ---
Consult Antibiotic Management Pharmacy has been consulted to manage selected antibiotic: Vancomycin Type of Intervention Type of Consult: Follow-up Suspected Infection Suspected Infection: Skin/Soft tissue Labs Labs: Sodium 143 mmol/L (136-145) 07/16/23 04:40 Potassium 3.6 mmol/L (3.5-5.1) 07/16/23 04:40 Chloride 114 mmol/L (98-107) H 07/16/23 04:40 Carbon Dioxide 26.0 mmol/L (21.0-32.0) 07/16/23 04:40 Anion Gap 3 (5-15) L 07/16/23 04:40 BUN 17 mg/dL (7-18) 07/16/23 04:40 Creatinine 0.98 mg/dL (0.70-1.30) 07/16/23 04:40 Est GFR (MDRD) Af Amer 97 mL/min (>60) 07/16/23 04:40 Est GFR (MDRD) Non-Af 80 mL/min (>60) 07/16/23 04:40 BUN/Creatinine Ratio 17.3 RATIO (10-20) 07/16/23 04:40 Glucose 103 mg/dL (74-106) 07/16/23 04:40 Vancomycin Trough 15.7 ug/mL (5.0-15.0) H 07/16/23 04:40 Random Vancomycin 14.3 ug/mL (0.0-15.0) 07/14/23 15:36 Microbiology Microbiology: Microbiology 07/13/23 08:14 Wound - Heel, Left Gram Stain - Final 07/13/23 08:14 Wound - Heel, Left Wound Culture - Preliminary Gram negative kim 07/12/23 14:30 Wound - Heel Gram Stain - Final 07/12/23 14:30 Wound - Heel Wound Culture - Final Escherichia coli Providencia rettgeri Gram positive kim Coag Negative Staph 07/12/23 14:35 Blood Culture (Wb) - Anticubital Left Blood Culture - Preliminary No growth in 48 hours. 07/12/23 14:30 Blood Culture (Wb) - Left Wrist Blood Culture - Preliminary No growth in 48 hours. Dosing Weight Weight used for dosin kg Estimated Creatinine Clearance Estimated Creatinine Clearance: 109 Goal Trough Goal Trough: 10-15 mcg/mL Pharmacy Plan for Drug Dosing Pharmacy Plan for Drug Dosing: Vancomycin trough level of 15.7, drawn 11.5hrs post-dose, was just at the top of the target range of 10-15. Will continue dosing at 1000mg q12h and will draw another trough in two days. Pharmacy Service will continue to monitor and adjust dosing as required. Follow-Up Labs Follow-Up Labs: Trough: Vancomycin Date/Time Labs Ordered Labs to be done on [date and time ordered]: 07/18/23 @3102
[2023-07-16] MEDS: Piperacil/Tazobactam 3.375 GM in 0.9% Normal Saline (50mL MB+) 50 ML IV ×3 (06:04→22:00)
[2023-07-16] MEDS: Vancomycin IV 1,000 MG/200 ML BAG 200 MG IV ×2 (06:04→17:57)
[2023-07-16] MEDS: Acetaminophen 325 MG Tablet 650 MG PO ×2 (06:38→22:08)
[2023-07-16 08:34] VITALS: PULSE 82
[2023-07-16] MEDS: Metoprolol Tartrate 25 MG Tablet PO ×2 (08:34→21:59)
[2023-07-16] MEDS: Miconazole Nitrate 43 GM Bottle 1 APPLIC TOPICAL ×2 (08:35→22:00)
[2023-07-16] MEDS: Menthol/Lanolin/Calamine/Znox 113 GM Tube 1 APPLIC TOPICAL ×2 (08:35→22:00)
[2023-07-16] MEDS: Enoxaparin 150 MG/ML Syringe SC ×2 (08:35→21:59)
[2023-07-16 09:30] VITALS: BP 134/78; PULSE 82; RESP 18; TEMP 36.6; O2SAT 98
--- NOTE | 2023-07-16 10:36 | PCM.PN.HOSP ---
Reason for Visit Reason for Visit: Diagnoses Lymphedema, not elsewhere classified (07/12/23) Cellulitis of right lower limb (07/12/23) Cellulitis of left lower limb (07/12/23) Non-pressure chronic ulcer of other part of left foot with necrosis of bone (07/12/23) Non-pressure chronic ulcer of unspecified part of right lower leg with fat layer exposed (07/12/23) Subjective Subjective Patient is a 68-year-old gentleman who is currently homeless presented with left lower extremity cellulitis with ulceration of the heel. Admitted to a monitored bed for further management Objective Data Objective Data Vital Signs: Vital Signs Temp Pulse Resp BP Pulse Ox O2 Del Method O2 Flow Rate 97.9 F 82 18 134/78 H 98 Room Air 2 07/16/23 09:30 07/16/23 09:30 07/16/23 09:30 07/16/23 09:30 07/16/23 09:30 07/16/23 09:30 07/15/23 08:45 Oxygen Flow Rate (L/min) 2 Oxygen Delivery Method Room Air Weight: 161.8 kg Body Mass Index (BMI) 49.7 Intake & Output: Intake and Output for Last 24 Hours 07/14/23 07/15/23 07/16/23 23:59 23:59 23:59 Intake Total 1880 / 1880 1700 / 1700 300 / 300 Output Total 1200 / 1200 300 / 600 700 / 700 Balance 680 / 680 1400 / 1100 -400 / -400 Lab / Micro Data 07/16/23 04:40 07/16/23 04:40 Labs: Laboratory Results - last 24 hr 07/16/23 04:40: WBC 7.9, RBC 3.50 L, Hgb 9.9 L, Hct 31.7 L, MCV 90.6, MCH 28.3, MCHC 31.2 L, RDW Std Deviation 43.6, RDW Coeff of Thiago 13.3, Plt Count 255, MPV 9.0, Immature Gran % (Auto) 0.600, Neut % (Auto) 71.9 H, Lymph % (Auto) 14.1 L, [place] % (Auto) 8.0, Eos % (Auto) 4.4, Baso % (Auto) 1.0, Absolute Neuts (auto) 5.7, Absolute Lymphs (auto) 1.11, Nucleated RBC % 0, Sodium 143, Potassium 3.6, Chloride 114 H, Carbon Dioxide 26.0, Anion Gap 3 L, BUN 17, Creatinine 0.98, Estim Creat Clear Calc 109.03, Est GFR (MDRD) Af Amer 97, Est GFR (MDRD) Non-Af 80, BUN/Creatinine Ratio 17.3, Glucose 103, Calcium 8.2 L, Vancomycin Trough 15.7 H Micro: Microbiology 07/13/23 08:14 Wound - Heel, Left Gram Stain - Final 07/13/23 08:14 Wound - Heel, Left Wound Culture - Preliminary Gram negative kim 07/12/23 14:30 Wound - Heel Gram Stain - Final 07/12/23 14:30 Wound - Heel Wound Culture - Final Escherichia coli Providencia rettgeri Gram positive kim Coag Negative Staph 07/12/23 14:35 Blood Culture (Wb) - Anticubital Left Blood Culture - Preliminary No growth in 48 hours. 07/12/23 14:30 Blood Culture (Wb) - Left Wrist Blood Culture - Preliminary No growth in 48 hours. Physical Exam Narrative GENERAL: cooperative HEENT: Atraumatic; normocephalic EYES; Anicteric, Normal Conjunctiva NECK; supple, normal thyroid, RESPIRATORY: Diminished to auscultation CARDIOVASCULAR: Regular S1 S2, GI: soft, normoactive bowel sounds, : No Renal angle tenderness; EXTREMITIES: Bilateral lymphedema with left heel in surgical boot and dressing MUSCULOSKELETAL: no muscle wasting NEURO: Awake; no lateralizing signs. SKIN: As described above PSYCH; Flat affect Assessment & Plan Assessment/Plan (1) Cellulitis of right lower extremity: (2) Lymphedema: (3) Ulcer of right lower extremity with fat layer exposed: PLAN: Plan Patient is a 68-year-old gentleman who is currently homeless presented with left lower extremity cellulitis with ulceration of the heel. Admitted to a monitored bed for further management 1. Left lower extremity cellulitis with ulceration of the left heel -Patient was started on broad-spectrum antibiotic therapy consult placed to podiatry patient underwent Debridement of left heel ulcer down to and including bone by Alejandro Cole on 07/15/2023 2. Severe bilateral lymphedema: Patient is on oral Lasix plan is for patient to follow-up with the wound care clinic following discharge 3. New onset A-fib ? Rate controlled echo demonstrated EF of 65% with no regional wall motion abnormalities currently on therapeutic Lovenox with plans to transition to apixaban prior to discharge 4. Class III obesity with BMI of 50 ? Complicating care weight loss advised 5. Hypokalemia ? Corrected per protocol 6. Homelessnes - Complicates care, medical course and recovery. Case management on board. Will likely need placement. 7. DVT prophylaxis: -lovenox Charges/Coding Visit Charges Inpatient E&M: 97221 Subs Hosp L2
--- NOTE | 2023-07-16 10:39 | WOUNDNOTE ---
wound photo: left heel
--- NOTE | 2023-07-16 12:20 | CASEMGMT ---
Addendum entered by Shelbie Zacarias 07/16/23 14:42: Both facilities accepted patient. [facility] foc is [facility]. Updated both snf's and asked [facility] to begin precert. Shelbie Zacarias, Discharge Planning Asst. Original Note: Discharge Planning Referral sent via [facility] to [facility] and [facility]. Shelbie Zacarias, Discharge Planning Asst.
--- NOTE | 2023-07-16 14:48 | CASEMGMT ---
Social Work Both [facility] and [facility] accepted pt. BRIANA spoke w/pt, he would prefer [facility]. BRIANA let sophia Morfin medical billing assistant know, she will ask [facility] to start precert. ALIDA Mir
[2023-07-16 16:00] VITALS: BP 114/76; PULSE 72; RESP 16; TEMP 36.8; O2SAT 96
--- NOTE | 2023-07-16 16:08 | CASEMGMT ---
Discharge Planning [facility] has obtained auth for 115. SW updated. Shelbie Zacarias, Discharge Planning Asst.
--- NOTE | 2023-07-16 16:38 | PCM.PN.ID ---
Physical Exam Narrative Feeling ok, no fever, no pain in foot, no n/v/d. Const alert and no apparent distress General Appearance: cooperative Resp normal air movement and clear to auscultation bilaterally Cardio regular rate and regular rhythm GI soft to palpation, non-tender and non-distended Extremity General Extremity: edema Skin Skin Narrative: foot wrapped ID ID: Route of nutrition/ use of supplements: [] Nutritional Intake: [] IV Site: [] Nielsen Catheter: [] Assessment & Plan Assessment/Plan (1) Lymphedema: (2) Non-pressure chronic ulcer of other part of left foot with necrosis of bone: PLAN: Wound cx with ecoli, providencia, GPR, and CoNS. Taken to OR by Dr. Sanders 07/15/23 for I&D down to bone. On empiric vanc/zosyn. Will follow
--- NOTE | 2023-07-16 17:52 | PCM.PROGNOTE ---
Subjective Subjective Patient was seen today for follow up on left heel ulcer. He is resting in bed, no new complaints. No complaints of f/c/n/v. Objective Data Objective Data Vital Signs: Vital Signs Temp Pulse Resp BP Pulse Ox O2 Del Method O2 Flow Rate 98.2 F 72 16 114/76 96 Room Air 2 07/16/23 16:00 07/16/23 16:00 07/16/23 16:00 07/16/23 16:00 07/16/23 16:00 07/16/23 16:00 07/15/23 08:45 Oxygen Flow Rate (L/min) 2 Oxygen Delivery Method Room Air Weight: 161.8 kg Body Mass Index (BMI) 49.7 Intake & Output: Intake and Output for Last 24 Hours 07/14/23 07/15/23 07/16/23 23:59 23:59 23:59 Intake Total 1880 / 1880 1700 / 1700 540 / 540 Output Total 1200 / 1200 300 / 600 1100 / 1100 Balance 680 / 680 1400 / 1100 -560 / -560 Lab / Micro Data 07/16/23 04:40 07/16/23 04:40 Labs: Laboratory Results - last 24 hr 07/16/23 04:40: WBC 7.9, RBC 3.50 L, Hgb 9.9 L, Hct 31.7 L, MCV 90.6, MCH 28.3, MCHC 31.2 L, RDW Std Deviation 43.6, RDW Coeff of Thiago 13.3, Plt Count 255, MPV 9.0, Immature Gran % (Auto) 0.600, Neut % (Auto) 71.9 H, Lymph % (Auto) 14.1 L, [place] % (Auto) 8.0, Eos % (Auto) 4.4, Baso % (Auto) 1.0, Absolute Neuts (auto) 5.7, Absolute Lymphs (auto) 1.11, Nucleated RBC % 0, Sodium 143, Potassium 3.6, Chloride 114 H, Carbon Dioxide 26.0, Anion Gap 3 L, BUN 17, Creatinine 0.98, Estim Creat Clear Calc 109.03, Est GFR (MDRD) Af Amer 97, Est GFR (MDRD) Non-Af 80, BUN/Creatinine Ratio 17.3, Glucose 103, Calcium 8.2 L, Vancomycin Trough 15.7 H Micro: Microbiology 07/15/23 08:11 Bone - Left Foot Gram Stain - Final 07/15/23 08:11 Bone - Left Foot Wound Culture - Preliminary Gram negative kim Gram negative kim#2 07/13/23 08:14 Wound - Heel, Left Gram Stain - Final 07/13/23 08:14 Wound - Heel, Left Wound Culture - Preliminary Gram negative kim 07/12/23 14:30 Wound - Heel Gram Stain - Final 07/12/23 14:30 Wound - Heel Wound Culture - Final Escherichia coli Providencia rettgeri Gram positive kim Coag Negative Staph 07/12/23 14:35 Blood Culture (Wb) - Anticubital Left Blood Culture - Preliminary No growth in 48 hours. 07/12/23 14:30 Blood Culture (Wb) - Left Wrist Blood Culture - Preliminary No growth in 48 hours. Physical Exam Narrative Reviewed photo of left heel ulceration from this morning and granular viable tissue noted and appears appropriate at this time, hemostasis achieved. Const alert, oriented x3 and no apparent distress Assessment & Plan Assessment/Plan (1) Cellulitis of foot, left: (2) Lymphedema: (3) Non-pressure chronic ulcer of other part of left foot with necrosis of bone: PLAN: Plan s/p left heel debridement on 07/15/23, reviewed diagnostic data. Foot stable. Surgical cultures have been obtained, MRI with osteomyelitis, and bone culture with growth - final pending, patient on is IV antibiotics as this time. Infectious disease on consult. No weightbearing left foot. Keep keep offloaded. Dressing has been changed by wound care, and will likely plan for wound vac tomorrow. Podiatry will continue to follow.
[2023-07-16] MEDS: 0.9% Saline Lock 10 ML Syringe IV (17:57)
[2023-07-16 21:45] VITALS: BP 117/74; PULSE 93; RESP 18; TEMP 36.8; O2SAT 98
[2023-07-16 21:59] VITALS: PULSE 93
[2023-07-17] MEDS: Piperacil/Tazobactam 3.375 GM in 0.9% Normal Saline (50mL MB+) 50 ML IV ×2 (05:08→14:36)
[2023-07-17] MEDS: Vancomycin IV 1,000 MG/200 ML BAG 200 MG IV (05:08)
[2023-07-17] MEDS: 0.9% Normal Saline (250mL Bag) 250 ML 15 ML IV ×2 (05:23)
[2023-07-17 05:26] VITALS: BP 119/78; PULSE 73; RESP 16; TEMP 36.6; O2SAT 93
[2023-07-17 07:24] LABS: Absolute Lymphocyte Count 0.94 X10^3/uL (0.83-4.51); Absolute Neutrophil Count 5.9 X10^3/uL (2.0-7.7); Basophil# 0.07 X10^3/uL; Basophil% 0.9 % (0-1); Eosinophil# 0.36 X10^3/uL; Eosinophils% 4.6 % (0-5); Hematocrit 33.3 % (40-54); Hemoglobin 10.4 g/dL (13.0-16.5); Lymphocyte # 0.94 X10^3/ul (0.83-4.51); Lymphocyte % 12.1 % (19-41); Mean Corp Hgb Conc 31.2 g/dL (32-36); Mean Corpuscular Hgb 28.3 pg (27.0-32.0); Mean Corpuscular Volume 90.5 fL (80-94); Mean Platelet Vol. 8.9 fl (6.2-12.0); Monocyte# 0.46 X10^3/uL; Monocyte% 5.9 % (0-10); NRBC Flagged by Analyzer 0 % (0-5); Neutrophil # 5.88 X10^3/uL (2.7-7.7); Neutrophil % 75.9 % (47-70); Platelet Count 252 K/mm3 (150-450); RBC Distribution Width CV 13.2 % (11.6-14.6); RBC Distribution Width SD 43.9 fl (35.1-43.9); Red Blood Count 3.68 M/mm3 (4.6-6.2); White Blood Count 7.8 K/mm3 (4.4-11.0)
--- NOTE | 2023-07-17 07:57 | PN.HOSP_ITS ---
Reason for Visit Reason for Visit: Diagnoses Lymphedema, not elsewhere classified (07/12/23) Cellulitis of right lower limb (07/12/23) Cellulitis of left lower limb (07/12/23) Non-pressure chronic ulcer of other part of left foot with necrosis of bone (07/12/23) Non-pressure chronic ulcer of unspecified part of right lower leg with fat layer exposed (07/12/23) Subjective Subjective Patient wound cultures positive for Pseudomonas aeruginosa as well as E. coli and Staph simulans. Patient was seen by Dr. Stern with ID his notes and recommendations reviewed Objective Data Objective Data Vital Signs: Vital Signs Temp Pulse Resp BP Pulse Ox O2 Del Method O2 Flow Rate 97.8 F 73 16 119/78 93 Room Air 2 07/17/23 05:26 07/17/23 05:26 07/17/23 05:26 07/17/23 05:07/17/23 05:07/17/23 05:07/15/23 08:45 Oxygen Flow Rate (L/min) 2 Oxygen Delivery Method Room Air Weight: 161.8 kg Body Mass Index (BMI) 49.7 Intake & Output: Intake and Output for Last 24 Hours 07/15/23 07/16/23 07/17/23 23:59 23:59 23:59 Intake Total 1700 / 1700 1190 / 1440 500.75 / 500.75 Output Total 300 / 600 1500 / 1700 200 / 200 Balance 1400 / 1100 -310 / -260 300.75 / 300.75 Lab / Micro Data 07/17/23 06:50 07/17/23 06:50 Labs: Laboratory Results - last 24 hr 07/17/23 06:50: WBC 7.8, RBC 3.68 L, Hgb 10.4 L, Hct 33.3 L, MCV 90.5, MCH 28.3, MCHC 31.2 L, RDW Std Deviation 43.9, RDW Coeff of Thiago 13.2, Plt Count 252, MPV 8.9, Immature Gran % (Auto) 0.600, Neut % (Auto) 75.9 H, Lymph % (Auto) 12.1 L, [place] % (Auto) 5.9, Eos % (Auto) 4.6, Baso % (Auto) 0.9, Absolute Neuts (auto) 5.9, Absolute Lymphs (auto) 0.94, Nucleated RBC % 0 Micro: Microbiology 07/15/23 08:11 Bone - Left Foot Gram Stain - Final 07/15/23 08:11 Bone - Left Foot Wound Culture - Final Pseudomonas aeruginosa Pseudomonas aeruginosa#2 07/13/23 08:14 Wound - Heel, Left Gram Stain - Final 07/13/23 08:14 Wound - Heel, Left Wound Culture - Final Escherichia coli Staphylococcus simulans 07/12/23 14:30 Wound - Heel Gram Stain - Final 07/12/23 14:30 Wound - Heel Wound Culture - Final Escherichia coli Providencia rettgeri Gram positive kim Coag Negative Staph 07/12/23 14:35 Blood Culture (Wb) - Anticubital Left Blood Culture - Preliminary No growth in 48 hours. 07/12/23 14:30 Blood Culture (Wb) - Left Wrist Blood Culture - Preliminary No growth in 48 hours. Physical Exam Narrative GENERAL: cooperative HEENT: Atraumatic; normocephalic EYES; Anicteric, Normal Conjunctiva NECK; supple, normal thyroid, RESPIRATORY: Diminished to auscultation CARDIOVASCULAR: Regular S1 S2, GI: soft, normoactive bowel sounds, : No Renal angle tenderness; EXTREMITIES: Bilateral lymphedema with left heel in surgical boot and dressing MUSCULOSKELETAL: no muscle wasting NEURO: Awake; no lateralizing signs. SKIN: As described above PSYCH; Flat affect Assessment & Plan Assessment/Plan (1) Cellulitis of right lower extremity: (2) Lymphedema: (3) Ulcer of right lower extremity with fat layer exposed: PLAN: Plan Patient is a 68-year-old gentleman who is currently homeless presented with left lower extremity cellulitis with ulceration of the heel. Admitted to a monitored bed for further management 1. Left lower extremity cellulitis with ulceration of the left heel -Patient was started on broad-spectrum antibiotic therapy consult placed to podiatry patient underwent Debridement of left heel ulcer down to and including bone by Alejandro Cole on 07/15/2023 ? 07/17/2023;Patient wound cultures positive for Pseudomonas aeruginosa as well as E. coli and Staph simulans. Patient was seen by Dr. Stren with ID his notes and recommendations reviewed. Will defer discharge antibiotics to ID 2. Severe bilateral lymphedema: Patient is on oral Lasix plan is for patient to follow-up with the wound care clinic following discharge 3. New onset A-fib ? Rate controlled echo demonstrated EF of 65% with no regional wall motion abnormalities currently on therapeutic Lovenox with plans to transition to apixaban prior to discharge 4. Class III obesity with BMI of 50 ? Complicating care weight loss advised 5. Hypokalemia ? Corrected per protocol 6. Homelessnes - Complicates care, medical course and recovery. Case management on board. Will likely need placement. 7. DVT prophylaxis: -lovenox Charges/Coding Visit Charges Inpatient E&M: 55660 Subs Hosp L2
[2023-07-17 07:58] LABS: Anion Gap 2 (5-15); BUN 15 mg/dL (7-18); BUN/Creat Ratio 16.3 RATIO (10-20); Calcium,Total 8.6 mg/dL (8.5-10.1); Chloride 114 mmol/L (98-107); Creatinine, Serum 0.92 mg/dL (0.70-1.30); EST Glomerular Filtration Rate 86 mL/min (>60); Est Glom Filt Rate - Afr Amer 105 mL/min (>60); Estimated Creatinine Clearance 116.14 ml/min; Glucose 98 mg/dL (74-106); Potassium 3.3 mmol/L (3.5-5.1); Sodium Level 143 mmol/L (136-145)
[2023-07-17 09:40] VITALS: BP 134/68; PULSE 67; RESP 14; TEMP 36.6; O2SAT 95
[2023-07-17] MEDS: Enoxaparin 150 MG/ML Syringe SC (09:47)
[2023-07-17 09:48] VITALS: BP 134/68; PULSE 67
[2023-07-17] MEDS: Metoprolol Tartrate 25 MG Tablet PO (09:48)
[2023-07-17] MEDS: Menthol/Lanolin/Calamine/Znox 113 GM Tube 1 APPLIC TOPICAL (09:51)
[2023-07-17] MEDS: Miconazole Nitrate 43 GM Bottle 1 APPLIC TOPICAL (09:53)
[2023-07-17] MEDS: Acetaminophen 325 MG Tablet 650 MG PO (09:58)
--- NOTE | 2023-07-17 10:50 | CASEMGMT ---
Patient will need a wound vac at the [facility]. SW notified [facility] Dianne TELLEZ
--- NOTE | 2023-07-17 12:36 | PCM.OP.PRO ---
Procedure Report Date of Procedure: 07/17/23 Assessment & Plan Assessment/Plan (1) Non-pressure chronic ulcer of other part of left foot with necrosis of bone: Procedures Radiology Radiology Access Procedures: PICC Procedure Time Out Time Out Informed consent given: Yes Consent signed: Yes Time out checklist: patient, procedure, site marked/identified, positioning of patient, supplies available and allergies confirmed Time out verified: Yes Time out date: 07/17/23 Time out time: 10:00 PICC Line Consent Screening tool completed:: Yes Consent obtained:: Yes Consent given by (patient or responsible constitution party):: patient Insertion Date of Insertion: 07/17/23 Ok to use: Yes Type of PICC inserted: Dual Power PICC PICC Lot #: [id number] PICC Reference #: [id number] Microintroducer Used: Yes (in kit) Ultrasound/Equipment Used: Probe Cover Kit Trimmed Length (cm): 49 Insertion Length (cm): 46 Exposed Length (cm): 3 Tip Placement: Caval Atrial Junction Placement Confirmation: 3CG Insertion Vein: Right Basilic Insertion Attempts: 1 Local Anesthesia Used: Lidocaine 1% (in kit) Dressing Applied: Statlock and Tegaderm CHG Arm Measurement above site (in cm): 38 Patient Tolerated Procedure: Well Threading Difficulties: No Comments Comment: Patient identity was verified with two patient identifiers. Informed consent was obtained and time-out was completed. Hands were sanitized. The patient was positioned supine with right arm at 90 degrees. The patient's upper arm vasculature was assessed using ultrasound. Patency of the right basilic vein was confirmed and the vein was externally marked. An external measurement was obtained of 49 cm. External leads were applied to the patient's right upper chest and laterally and inferior of the umbilicus on the mid axillary line. Cap, mask, and prep gloves were donned. The underdrape was placed under the patient's arm. The site was prepped with chlorhexidine, and tourniquet was loosely applied. Prep gloves were discarded, and hands were sanitized. The sterile kit was opened with additional supplies dropped in. Sterile gown and gloves were donned, and the patient was draped. The sterile kit was assembled with needle, introducer, needless connectors, and each catheter lumen flushed with sterile normal saline. The marked site of insertion was anesthetized with 1% lidocaine from the kit. Patient tolerated well. The right basilic vein was then accessed using ultrasound guidance and guidewire was inserted to safety марина. The tourniquet was released. The access needle was removed while securing the guidewire in place. The site was again anesthetized with 1% lidocaine, prior to insertion of introducer sheath and dilator. Patient tolerated the insertion well. The catheter was trimmed to a length of 49 cm. Using 3C guidance, the catheter was then inserted through the introducer sheath, slowly. There was no resistance on insertion. The catheter followed the expected course of the vessel using 3CG tracking. The introducer sheath was retracted and peeled away, incrementally, while keeping the catheter secured. Maximal p-wave, without deflection, confirming placement in the cavoatrial junction, was obtained at an insertion length of 46 cm, leaving 3 cm external. The stylet was removed. A flushed needleless connector was attached to the lumen. Aspiration of the lumen was performed to remove any air and confirm blood return. Blood return was verified and each lumen was flushed with 10 ml of sterile normal saline in a pulsatile fashion. The each lumen was clamped with the last pulsed flush. Total sterile flushes used for the insertion was 8 10 ml syringes, 2 from the kit. Finally, the insertion site was cleaned with chlorhexidine, and the catheter was secured using a StatLock. The site was covered with a Tegaderm CHG Dressing and disinfecting caps were applied. Baseline arm circumference was obtained at the insertion site and measured 38 cm. The patient was provided with a patient education handout on PICC line care and verbalized understanding of infection prevention, heavy lifting restriction, maintaining mobility, and watching for any signs of infection. Primary nurse and charge nurses are aware that the PICC line is ready for use.
--- NOTE | 2023-07-17 13:37 | PCM.PROGNOTE ---
Subjective Subjective Patient was seen today for follow up on left heel infection. He is resting in bed, wound vac was applied today. He has no new complaints. No complaints of f/c/n/v. Objective Data Objective Data Vital Signs: Vital Signs Temp Pulse Resp BP Pulse Ox O2 Del Method O2 Flow Rate 97.9 F 67 14 134/68 H 95 Room Air 2 07/17/23 09:40 07/17/23 09:48 07/17/23 09:40 07/17/23 09:48 07/17/23 09:40 07/17/23 09:40 07/15/23 08:45 Oxygen Flow Rate (L/min) 2 Oxygen Delivery Method Room Air Weight: 161.8 kg Body Mass Index (BMI) 49.7 Intake & Output: Intake and Output for Last 24 Hours 07/15/23 07/16/23 07/17/23 23:59 23:59 23:59 Intake Total 1700 / 1700 1190 / 1440 550.75 / 550.75 Output Total 300 / 600 1500 / 1700 200 / 200 Balance 1400 / 1100 -310 / -260 350.75 / 350.75 Lab / Micro Data 07/17/23 06:50 07/17/23 06:50 Labs: Laboratory Results - last 24 hr 07/17/23 06:50: WBC 7.8, RBC 3.68 L, Hgb 10.4 L, Hct 33.3 L, MCV 90.5, MCH 28.3, MCHC 31.2 L, RDW Std Deviation 43.9, RDW Coeff of Thiago 13.2, Plt Count 252, MPV 8.9, Immature Gran % (Auto) 0.600, Neut % (Auto) 75.9 H, Lymph % (Auto) 12.1 L, [place] % (Auto) 5.9, Eos % (Auto) 4.6, Baso % (Auto) 0.9, Absolute Neuts (auto) 5.9, Absolute Lymphs (auto) 0.94, Nucleated RBC % 0, Sodium 143, Potassium 3.3 L, Chloride 114 H, Carbon Dioxide 27.0, Anion Gap 2 L, BUN 15, Creatinine 0.92, Estim Creat Clear Calc 116.14, Est GFR (MDRD) Af Amer 105, Est GFR (MDRD) Non-Af 86, BUN/Creatinine Ratio 16.3, Glucose 98, Calcium 8.6 Micro: Microbiology 07/15/23 08:11 Bone - Left Foot Gram Stain - Final 07/15/23 08:11 Bone - Left Foot Wound Culture - Final Pseudomonas aeruginosa Pseudomonas aeruginosa#2 07/15/23 08:11 Bone - Left Foot Anaerobic Culture - Preliminary No growth in 48 hours. 07/13/23 08:14 Wound - Heel, Left Gram Stain - Final 07/13/23 08:14 Wound - Heel, Left Wound Culture - Final Escherichia coli Staphylococcus simulans 07/12/23 14:30 Wound - Heel Gram Stain - Final 07/12/23 14:30 Wound - Heel Wound Culture - Final Escherichia coli Providencia rettgeri Gram positive kim Coag Negative Staph 07/12/23 14:35 Blood Culture (Wb) - Anticubital Left Blood Culture - Preliminary No growth in 48 hours. 07/12/23 14:30 Blood Culture (Wb) - Left Wrist Blood Culture - Preliminary No growth in 48 hours. Physical Exam Narrative Wound vac intact to left heel. Const alert, oriented x3 and no apparent distress Assessment & Plan Assessment/Plan (1) Cellulitis of foot, left: (2) Lymphedema: (3) Non-pressure chronic ulcer of other part of left foot with necrosis of bone: PLAN: Plan s/p left heel debridement on 07/15/23, reviewed diagnostic data. MRI with osteomyelitis, Cultures have been obtained - reviewed - growing e coli, pseudomonas, and staph simulans patient on is IV antibiotics as this time Vanc and Zosyn, Infectious disease on consult. No weightbearing left foot. Keep keep offloaded. Continue with wound vac. Podiatry will continue to follow.
--- NOTE | 2023-07-17 14:00 | PN.ID_ITS ---
Physical Exam Narrative Feeling better, no fever, no n/v/d. Const alert and no apparent distress General Appearance: cooperative Resp normal air movement and clear to auscultation bilaterally Cardio regular rate and regular rhythm GI soft to palpation, non-tender and non-distended Extremity General Extremity: edema Skin Skin Narrative: foot wrapped ID ID: Route of nutrition/ use of supplements: [] Nutritional Intake: [] IV Site: [] Nielsen Catheter: [] Assessment & Plan Assessment/Plan (1) Lymphedema: (2) Non-pressure chronic ulcer of other part of left foot with necrosis of bone: PLAN: Wound cx with ecoli, providencia, GPR, and CoNS. Taken to OR by Dr. Sanders 07/15/23 for I&D down to bone. Surg cx with pseudomonas x2. On empiric vanc/zosyn. Will stop vanc. Place picc for 6 weeks planned zosyn, stop date 08/26/23 with weekly labs and ID followup in 2 weeks. D/w case therapist. Will follow
--- NOTE | 2023-07-17 14:02 | TREXTCAR_ITS ---
Diet Diet Order/Speech Therapy: 07/15/23 08:38 Diet: Regular - General Type of Dietary Supplement:: Brayan Is pt able to select menu?: Yes Diet Comments: Brayan w/ breakfast & dinner; 240mL ensure plus HP w/ lunch Routine Orders/Code Status Code Status: Full Code Wound(s) LEFT HEEL: Wound Type: Neuropathic/Diabetic Foot Ulcer Dressing Change: applied KCI wound VAC L distal thigh: Wound Type: shearing injury Dressing Change: applied Mepilex dressing R buttock: Wound Type: Pressure Injury l lateral thigh: Wound Type: shearing injury Therapies Physical Therapy: Eval and Treat Occupational Therapy: Eval and Treat Problem/Diagnosis (1) Lymphedema: Status: Acute Code(s): I89.0 - Lymphedema, not elsewhere classified (2) Non-pressure chronic ulcer of other part of left foot with necrosis of bone: Status: Chronic Code(s): L97.524 - Non-pressure chronic ulcer of other part of left foot with necrosis of bone Plan Patient is a 68-year-old gentleman who is currently homeless presented with left lower extremity cellulitis with ulceration of the heel. Admitted to a monitored bed for further management 1. Left lower extremity cellulitis with ulceration of the left heel -Patient was started on broad-spectrum antibiotic therapy consult placed to podiatry patient underwent Debridement of left heel ulcer down to and including bone by Alejandro Cole on 07/15/2023 ? 07/17/2023;Patient wound cultures positive for Pseudomonas aeruginosa as well as E. coli and Staph simulans. Patient was seen by Dr. Stern with ID his notes and recommendations reviewed. Will defer discharge antibiotics to ID 2. Severe bilateral lymphedema: Patient is on oral Lasix plan is for patient to follow-up with the wound care clinic following discharge 3. New onset A-fib ? Rate controlled echo demonstrated EF of 65% with no regional wall motion abnormalities currently on therapeutic Lovenox with plans to transition to apixaban prior to discharge 4. Class III obesity with BMI of 50 ? Complicating care weight loss advised 5. Hypokalemia ? Corrected per protocol 6. Homelessnes - Complicates care, medical course and recovery. Case management on board. Will likely need placement. 7. DVT prophylaxis: -lovenox Allergies/Procedures Done in Hospital Allergies No Known Allergies Allergy (Verified 07/12/23 13:58) Type of Care/Length of Stay Estimated LOS: Convalescent Care Less Than 30 days Type of Care Needed: Skilled Rehab Potential: Good Prognosis: Good Additional Orders/Day of Discharge Day of Discharge: 07/17/23 Dietary and Speech Recommendations Dietitian Recommendations/Changes: Will change diet to cardiac; pt will select [id number]-[id number] foods as tolerated. Will d/c 120mL ensure plus HP 4 times per day with medpass and add 240mL ensure plus HP w/ lunch. Will add Brayan BID with breakfast and dinner to support wound healing. D/C ensure as needed if PO established adequate at meals. Discharge Plan Admission Admit Date/Time: 07/12/23 16:51 Attending Provider: David Downey [facility] Providers: Alejandro Sanders; Paramjit Stern; Danis Velez; Aundrea Lange Discharge Orders/Prescriptions Prescriptions: New piperacillin-tazobactam 3.375 gram recon soln 3.375 g IV Q8H 40 Days Rx Instructions: stop date 08/26/23. dx: foot osteomyelitis. Weekly bmp, cbc, and esr. Fax to [phone]. routine picc care per protocol. miconazole nitrate [Desenex] 2 % Powder 1 applic topical BID Qty: 0 0RF Protocol: *Topical Application Instructions APPLICATION INSTRUCTIONS: groin metoprolol tartrate 25 mg Tablet 25 mg PO BID Qty: 60 0RF menthol-zinc oxide [Calmoseptine] 0.44-20.6 % Ointment 1 applic topical BID Qty: 0 0RF Protocol: *Topical Application Instructions APPLICATION INSTRUCTIONS: buttocks acetaminophen 325 mg Tablet 650 mg PO Q6H PRN PRN (Reason: Pain 1-10 Or Fever >100.7) Qty: 0 0RF potassium chloride 20 mEq tablet,ER particles/crystals 20 meq PO DAILY Qty: 30 0RF apixaban 5 mg tablet 5 mg PO BID Qty: 60 0RF Continued furosemide [Lasix] 40 mg tablet 40 mg PO DAILY Qty: 30 0RF Referrals / Follow Up: Alejandro Sanders DPM [[facility] Staff - Active Staff] - [facility] - Disposition Disposition (needs filled in before D/C Order can be placed): [facility]
--- NOTE | 2023-07-17 14:11 | PCM.DC.SUM ---
Providers Date of Admission: 07/12/23 Date of Discharge: 07/17/23 Primary Care Physician: [facility] Consultations 07/12/23 17:03 Consult: Onc/Wound/tail ripper Routine Comment: Reason for Consult:: left hel wound Consult: Podiatry Routine Consulting Provider: Alejandro Sanders Reason for Consult: left heel osteomylitis EMERGENT Consult: No MD Notified: Yes Date Notified: 07/12/23 Time Notified: 16:55 Method of Notification: Verbal 07/12/23 20:51 Consult: Infectious Disease Routine Consulting Provider: Paramjit Stern Reason for Consult: left hell infection EMERGENT Consult: No MD Notified: Yes Date Notified: 07/13/23 Time Notified: 05:58 Method of Notification: Answering Service Reason For Visit: LEFT FOOT CELLULITIS, HYPOKALEMIA Diagnosis Discharge Diagnosis (1) Lymphedema: Status: Acute Code(s): I89.0 - Lymphedema, not elsewhere classified (2) Non-pressure chronic ulcer of other part of left foot with necrosis of bone: Status: Chronic Code(s): L97.524 - Non-pressure chronic ulcer of other part of left foot with necrosis of bone Plan Patient is a 68-year-old gentleman who is currently homeless presented with left lower extremity cellulitis with ulceration of the heel. Admitted to a monitored bed for further management 1. Left lower extremity cellulitis with ulceration of the left heel -Patient was started on broad-spectrum antibiotic therapy consult placed to podiatry patient underwent Debridement of left heel ulcer down to and including bone by Alejandro Cole on 07/15/2023 ? 07/17/2023;Patient wound cultures positive for Pseudomonas aeruginosa as well as E. coli and Staph simulans. Patient was seen by Dr. Stern with ID his notes and recommendations reviewed. Will defer discharge antibiotics to ID 2. Severe bilateral lymphedema: Patient is on oral Lasix plan is for patient to follow-up with the wound care clinic following discharge 3. New onset A-fib ? Rate controlled echo demonstrated EF of 65% with no regional wall motion abnormalities currently on therapeutic Lovenox with plans to transition to apixaban prior to discharge 4. Class III obesity with BMI of 50 ? Complicating care weight loss advised 5. Hypokalemia ? Corrected per protocol 6. Homelessnes - Complicates care, medical course and recovery. Case management on board. Will likely need placement. 7. DVT prophylaxis: -lovenox Medications at Discharge Home Medications furosemide 40 mg tablet (Lasix) 40 mg PO DAILY #30 tabs 09/22/22 acetaminophen 325 mg tablet 650 mg (2 x 325 mg) PO Q6H PRN PRN Pain 1-10 Or Fever >100.7 #0 tabs 07/17/23 apixaban 5 mg tablet 5 mg PO BID #60 tabs 07/17/23 menthol 0.44 %-zinc oxide 20.6 % topical ointment (Calmoseptine) 1 applic topical BID #0 grams 07/17/23 metoprolol tartrate 25 mg tablet 25 mg PO BID #60 tabs 07/17/23 miconazole nitrate 2 % topical powder (Desenex) 1 applic topical BID #0 grams 07/17/23 piperacillin-tazobactam 3.375 gram intravenous solution 3.375 g IV Q8H 40 days 07/17/23 potassium chloride 20 mEq tablet,extended release(part/cryst) 20 meq PO DAILY #30 tabs 07/17/23 Hospital Course Summary of Care Provided Minutes Spent on Discharge: 35 Physical Exam Narrative GENERAL: cooperative HEENT: Atraumatic; normocephalic EYES; Anicteric, Normal Conjunctiva NECK; supple, normal thyroid, RESPIRATORY: Diminished to auscultation CARDIOVASCULAR: Regular S1 S2, GI: soft, normoactive bowel sounds, : No Renal angle tenderness; EXTREMITIES: Bilateral lymphedema with left heel in surgical boot and dressing MUSCULOSKELETAL: no muscle wasting NEURO: Awake; no lateralizing signs. SKIN: As described above PSYCH; Flat affect Weight / BMI Weight Weight: 161.8 kg Body Mass Index (BMI) 49.7 ABG / Lab / Microbiology Data 07/17/23 06:50 07/17/23 06:50 Laboratory: Laboratory Results - last 24 hr 07/17/23 06:50: WBC 7.8, RBC 3.68 L, Hgb 10.4 L, Hct 33.3 L, MCV 90.5, MCH 28.3, MCHC 31.2 L, RDW Std Deviation 43.9, RDW Coeff of Thiago 13.2, Plt Count 252, MPV 8.9, Immature Gran % (Auto) 0.600, Neut % (Auto) 75.9 H, Lymph % (Auto) 12.1 L, Wilson % (Auto) 5.9, Eos % (Auto) 4.6, Baso % (Auto) 0.9, Absolute Neuts (auto) 5.9, Absolute Lymphs (auto) 0.94, Nucleated RBC % 0, Sodium 143, Potassium 3.3 L, Chloride 114 H, Carbon Dioxide 27.0, Anion Gap 2 L, BUN 15, Creatinine 0.92, Estim Creat Clear Calc 116.14, Est GFR (MDRD) Af Amer 105, Est GFR (MDRD) Non-Af 86, BUN/Creatinine Ratio 16.3, Glucose 98, Calcium 8.6 Microbiology: Microbiology 07/15/23 08:11 Bone - Left Foot Gram Stain - Final 07/15/23 08:11 Bone - Left Foot Wound Culture - Final Pseudomonas aeruginosa Pseudomonas aeruginosa#2 07/15/23 08:11 Bone - Left Foot Anaerobic Culture - Preliminary No growth in 48 hours. 07/13/23 08:14 Wound - Heel, Left Gram Stain - Final 07/13/23 08:14 Wound - Heel, Left Wound Culture - Final Escherichia coli Staphylococcus simulans 07/12/23 14:30 Wound - Heel Gram Stain - Final 07/12/23 14:30 Wound - Heel Wound Culture - Final Escherichia coli Providencia rettgeri Gram positive kim Coag Negative Staph 07/12/23 14:35 Blood Culture (Wb) - Anticubital Left Blood Culture - Preliminary No growth in 48 hours. 07/12/23 14:30 Blood Culture (Wb) - Left Wrist Blood Culture - Preliminary No growth in 48 hours. D/C Instructions Discharge Diet: No restrictions Discharge Activity: Return to Normal Activity Call your doctor if you observe: Fever of 101 or Higher, Shortness of breath, Fainting spells and Chest pain Meaningful Use Info Meaningful Use Diagnoses (Choose all that apply): None applicable Discharge Plan Admission Admit Date/Time: 07/12/23 16:51 Attending Provider: David Downey [facility] Providers: Alejandro Sanders; Paramjit Stern; Danis Velez; Aundrea Lange Discharge Orders/Prescriptions Prescriptions: New piperacillin-tazobactam 3.375 gram recon soln 3.375 g IV Q8H 40 Days Rx Instructions: stop date 08/26/23. dx: foot osteomyelitis. Weekly bmp, cbc, and esr. Fax to [phone]. routine picc care per protocol. miconazole nitrate [Desenex] 2 % Powder 1 applic topical BID Qty: 0 0RF Protocol: *Topical Application Instructions APPLICATION INSTRUCTIONS: groin metoprolol tartrate 25 mg Tablet 25 mg PO BID Qty: 60 0RF menthol-zinc oxide [Calmoseptine] 0.44-20.6 % Ointment 1 applic topical BID Qty: 0 0RF Protocol: *Topical Application Instructions APPLICATION INSTRUCTIONS: buttocks acetaminophen 325 mg Tablet 650 mg PO Q6H PRN PRN (Reason: Pain 1-10 Or Fever >100.7) Qty: 0 0RF potassium chloride 20 mEq tablet,ER particles/crystals 20 meq PO DAILY Qty: 30 0RF apixaban 5 mg tablet 5 mg PO BID Qty: 60 0RF Continued furosemide [Lasix] 40 mg tablet 40 mg PO DAILY Qty: 30 0RF Referrals / Follow Up: Alejandro Sanders DPM [Med Staff - Active Staff] - Within 2 Weeks [facility] [Primary Care Provider] - Disposition Disposition (needs filled in before D/C Order can be placed): [facility] Charges/Coding Visit Charges Inpatient E&M: 26817 Disch Hosp >30min
--- NOTE | 2023-07-17 14:44 | CASEMGMT ---
Patient is ready for discharge to [facility]. BRIANA completed a 7000 in [facility]ENS system. Physicians will transport patient. Plan: d/c to [facility] under skilled level of care on a convalescent stay. Physicians will transport patient via wheelchair. Dianne TELLEZ
--- NOTE | 2023-07-17 14:48 | CASEMGMT ---
BRIANA called John at [facility] and let her know patient was being discharged to [facility] today. Dianne Antoine AIR DRIER ROSALINDA
[2023-07-17 14:53] VITALS: BP 126/67; PULSE 63; RESP 15; TEMP 36.6; O2SAT 98
--- NOTE | 2023-07-17 14:54 | CASEMGMT ---
Discharge Planning Discharge orders, signed med list, and transport time sent to [facility] via [facility]. Physicians will transport patient by wheelchair at 5:30p. Nursing, SW, and patient updated. Patient stated that he will update his friends. Shelbie Zacarias, Discharge Planning Asst.
--- NOTE | 2023-07-17 17:47 | NURSING ---
report called to Radha at [facility]
[2023-07-17] MEDS: 0.9% Saline Lock 10 ML Syringe IV (18:28)
== END 2023-07-17 18:40 | disposition skilled nursing facility (03) | DRG 504 ==
LOC: ED 15:34 → MS3 17:55 → PCU 07-13 09:28
PROVIDERS: Emergency Medicine; Internal Medicine; Podiatrist; Student in an Organized Health Care Education/Training Program; Admitting Provider Internal Medicine; Emergency Provider Emergency Medicine; Visit Provider Internal Medicine
PROC: 0QBM0ZZ Excision of Left Tarsal, Open Approach (ICD-10-PCS; principal; 2023-07-15 07:15)
DX: M86.172 Other acute osteomyelitis, left ankle and foot (principal); L97.424 Non-pressure chronic ulcer of left heel and midfoot with necrosis of bone; L03.115 Cellulitis of right lower limb; Z68.43 Body mass index [BMI] 50.0-59.9, adult; Z59.02 Unsheltered homelessness; E66.01 Morbid (severe) obesity due to excess calories; I48.91 Unspecified atrial fibrillation; M86.672 Other chronic osteomyelitis, left ankle and foot; E87.6 Hypokalemia; I89.0 Lymphedema, not elsewhere classified; B95.7 Other staphylococcus as the cause of diseases classified elsewhere; B96.5 Pseudomonas (aeruginosa) (mallei) (pseudomallei) as the cause of diseases classified elsewhere; B96.20 Unspecified Escherichia coli [E. coli] as the cause of diseases classified elsewhere; X58.XXXA Exposure to other specified factors, initial encounter; Z91.148 Patient's other noncompliance with medication regimen for other reason; Z91.198 Patient's noncompliance with other medical treatment and regimen for other reason; Z79.899 Other long term (current) drug therapy; Z87.891 Personal history of nicotine dependence
CPT/HCPCS: 36415; 36569; 73630; 73718; 80048; 80202; 83605; 83735; 84443; 85014; 85018; 85025; 85610; 85730; 87015; 87040; 87070; 87075; 87077; 87102; 87116; 87176; 87184; 87186; 87205; 87206; 87640; 88304; 88305; 88311; 93005; 93306; 97110; 97162; 97166; 97530; 97535; 97802; 99283; J7030; J7040; J7050; A4216

== ENCOUNTER → 2023-08-27 04:00 | Outpatient (REF) | payer MEDICARE, MEDICAID, SELFPAY ==
[2023-08-27 09:48] LABS: Absolute Lymphocyte Count 0.99 X10^3/uL (0.83-4.51); Absolute Neutrophil Count 4.8 X10^3/uL (2.0-7.7); Basophil# 0.08 X10^3/uL; Basophil% 1.2 % (0-1); Eosinophil# 0.32 X10^3/uL; Eosinophils% 4.7 % (0-5); Erythrocyte Sedimentation Rate 27 mm/hr (0-20); Hematocrit 46.9 % (40-54); Hemoglobin 14.8 g/dL (13.0-16.5); Lymphocyte # 0.99 X10^3/ul (0.83-4.51); Lymphocyte % 14.6 % (19-41); Mean Corp Hgb Conc 31.6 g/dL (32-36); Mean Platelet Vol. 9.5 fl (6.2-12.0); Monocyte# 0.53 X10^3/uL; Monocyte% 7.8 % (0-10); NRBC Flagged by Analyzer 0 % (0-5); Neutrophil # 4.81 X10^3/uL (2.7-7.7); Neutrophil % 71.1 % (47-70); Platelet Count 295 K/mm3 (150-450); RBC Distribution Width CV 13.1 % (11.6-14.6); RBC Distribution Width SD 44.8 fl (35.1-43.9); White Blood Count 6.8 K/mm3 (4.4-11.0)
[2023-08-27 09:59] LABS: Anion Gap 4 (5-15); BUN 17 mg/dL (7-18); BUN/Creat Ratio 17.5 RATIO (10-20); Calcium,Total 10.5 mg/dL (8.5-10.1); Chloride 105 mmol/L (98-107); Creatinine, Serum 0.97 mg/dL (0.70-1.30); EST Glomerular Filtration Rate 81 mL/min (>60); Est Glom Filt Rate - Afr Amer 98 mL/min (>60); Glucose 99 mg/dL (74-106); Potassium 3.9 mmol/L (3.5-5.1); Sodium Level 137 mmol/L (136-145)
== END ==
LOC: OLS.SW 04:00
PROVIDERS: Referring Provider Internal Medicine; Visit Provider Internal Medicine
DX: I10 Essential (primary) hypertension (principal); M86.172 Other acute osteomyelitis, left ankle and foot; L03.116 Cellulitis of left lower limb
CPT/HCPCS: 36415; 80048; 85025; 85652; 86140

== ENCOUNTER → 2023-09-10 05:00 | Outpatient (REF) | payer MEDICARE, MEDICAID, SELFPAY ==
[2023-09-10 09:01] LABS: Anion Gap 3 (5-15); BUN 20 mg/dL (7-18); BUN/Creat Ratio 23.6 RATIO (10-20); Calcium,Total 8.9 mg/dL (8.5-10.1); Chloride 106 mmol/L (98-107); Creatinine, Serum 0.85 mg/dL (0.70-1.30); EST Glomerular Filtration Rate 95 mL/min (>60); Est Glom Filt Rate - Afr Amer 115 mL/min (>60); Glucose 92 mg/dL (74-106); Potassium 4.3 mmol/L (3.5-5.1); Sodium Level 139 mmol/L (136-145)
== END ==
LOC: OLS.SW 05:00
PROVIDERS: Visit Provider Internal Medicine
DX: L03.115 Cellulitis of right lower limb (principal); M86.172 Other acute osteomyelitis, left ankle and foot; I89.0 Lymphedema, not elsewhere classified; I50.9 Heart failure, unspecified
CPT/HCPCS: 36415; 80048

== ENCOUNTER → 2023-10-01 | Outpatient (REF) | payer MEDICARE, MEDICAID, SELFPAY ==
[2023-10-01 10:09] LABS: Anion Gap 4 (5-15); BUN 15 mg/dL (7-18); BUN/Creat Ratio 18.1 RATIO (10-20); Calcium,Total 9.5 mg/dL (8.5-10.1); Chloride 104 mmol/L (98-107); Creatinine, Serum 0.83 mg/dL (0.70-1.30); EST Glomerular Filtration Rate 97 mL/min (>60); Est Glom Filt Rate - Afr Amer 118 mL/min (>60); Glucose 86 mg/dL (74-106); Magnesium 2.4 mg/dL (1.6-2.6); Sodium Level 137 mmol/L (136-145)
== END ==
LOC: OLS.SW 04:00
PROVIDERS: Referring Provider Internal Medicine; Visit Provider Internal Medicine
DX: L03.115 Cellulitis of right lower limb (principal); M86.172 Other acute osteomyelitis, left ankle and foot; I50.9 Heart failure, unspecified; I89.0 Lymphedema, not elsewhere classified
CPT/HCPCS: 36415; 80048; 83735

== ENCOUNTER 2023-10-10 13:35 | Outpatient (RCR) | payer MEDICARE, MEDICAID, SELFPAY ==
[2023-10-10 14:02] VITALS: BP 150/86; PULSE 86; RESP 20; TEMP 36.3; BMI 43.6
--- NOTE | 2023-10-10 16:40 | HP.PCM_ITS ---
History of Present Illness Date of Service: 10/10/23 Chief Complaint: Bilateral lower extremity ulcers. History of Wound: Mr. Beltran is a 68-year-old male presenting [facility] for [facility]-up and evaluation of left heel ulceration. Patient was ultimately seen by an outside provider had surgical intervention and discharged to a SNF for hodhpd-dmy-woxyq care. Patient's wound has progressed with conservative treatment with Teena and dressing changes. He did complete oral antibiotics per infectious disease recommendation. Patient is currently living status is at the SNF and then after discharge she will be returning to his van making him homeless which he is comfortable with. He denies trauma. Denies constitutional symptoms. No other pedal complaints at this time. Progress of Wound: Chronic heel wound [facility] Medical History Alcohol abuse Depression Former smoker Congestive heart failure (CHF) Lymphedema Ulcer of right lower extremity with fat layer exposed Ulcer of left lower extremity with fat layer exposed Home Medications ?Medication ?Instructions ?Recorded ?Last Taken ?Type furosemide 40 mg tablet (Lasix) 40 mg PO DAILY #30 tabs 09/22/22 07/09/23 Rx acetaminophen 325 mg tablet 650 mg (2 x 325 mg) PO Q6H PRN PRN 07/17/23 Unknown Rx Pain 1-10 Or Fever >100.7 #0 tabs apixaban 5 mg tablet 5 mg PO BID #60 tabs 07/17/23 Unknown Rx metoprolol tartrate 25 mg tablet 25 mg PO BID #60 tabs 07/17/23 Unknown Rx potassium chloride 20 mEq 20 meq PO DAILY #30 tabs 07/17/23 Unknown Rx tablet,extended release(part/cryst) sennosides 8.6 mg capsule (senna) 8.6 mg PO DAILY 10/10/23 Unknown History spironolactone 25 mg tablet 25 mg PO DAILY 10/10/23 Unknown History Allergy/AdvReac Type Severity Reaction Status Date / Time No Known Allergies Allergy Verified 10/10/23 14:20 Social History household members: none housing: homeless Smoking Status: Former smoker Vital Signs Vital Signs Vital Signs: 10/10/23 14:02 Temperature 97.3 F L Temperature Source Temporal Pulse Rate 86 Respiratory Rate 20 H Blood Pressure 150/86 H Blood Pressure Mean 107 Blood Pressure Source Monitor Weight Weight: 141.903 kg Body Mass Index (BMI) 43.6 Physical Exam Narrative Vascular: DP and PT pulses are palpable. CFT is brisk. Nonpitting edema appreciated to the bilateral lower extremity. skin temperature gradient is warm to warm from proximal ankle to distal digits. Neurological: Light touch intact. Patient response to painful stimuli. Dermatological: Evidence of full-thickness ulceration to left heel measuring 2.0 x 2.3 x 0.1 cm. Wound base is under percent granular nature. There is no sign of infection at this time. Excisional debridement down to and including subcutaneous tissue with a number 5 mm dermal curette to the left heel without incident. Predebridement measurement is 1.0 x 1.8 x 0.1 cm. Postdebridement measurement is 2.0 x 2.3 x 0.1 cm. Musculoskeletal: Muscle strength 5-5 in all quadrants bilateral. Mild pain to palpation to the full-thickness ulceration left heel. No pain with calf compression. Debridement Note Debridement Note Debridement Free Text: Excisional debridement down to and including subcutaneous tissue with a number 5 mm dermal curette to the left heel without incident. Predebridement measurement is 1.0 x 1.8 x 0.1 cm. Postdebridement measurement is 2.0 x 2.3 x 0.1 cm. Post-Debridement Measurements and Additional Note: Post-Debridement Measurements/Treatment - Nurse 1 - General Ulcer Assessment Start: 10/10/23 14:02 Freq: Status: Active Protocol: WILLIAM Activity Type Activity Date Activity User E-sign Co-sign Detail Recorded Client Recorded Date Recorded By Document 10/10/23 14:02 DL [email or web address] 10/10/23 14:18 DL 10/10/23 14:02 - Today's Visit Information Type of service Initial Visit Arrival Mode Wheelchair Transfer Assistance Manual Transfer Assist (Other) x2 Patient Identification Verified (Name & Yes ) Patient Requires Transmission-Based No Precautions Height and Weight Height 5 ft 11 in Weight 141.903 kg Weight in Pounds 312.8 lbs Weight Measurement Method Estimated by Patient Body Mass Index (BMI) 43.6 BMI Classification Obese BSA - Mark 2.55 Vital Signs Temperature (97.8 F-99.1 F) 97.3 F L Temperature Source Temporal Pulse Rate (60-100) 86 Pulse Location Monitor Respiratory Rate (12-18) 20 H Respiratory rate source Observation Blood Pressure (90/60-120/80) 150/86 H Blood Pressure Mean 107 Source Monitor Pain Scale: 0-10 Numeric Is Patient Pain Free? Yes Neuropathy Assessment Feet - Top Side and Bottom <Entered> (a) Communication Assessment Preferred language [place]de[place] Able to Read Yes Able to Write Yes Right Hearing Abillity Normal Left Hearing Abillity Normal Teaching Assessment Preferences Verbal,Written, Demonstration Barriers to Learning None Readiness To Learn Fair Willingness to Engage in Self Management Med Activies Readiness to Engage in Self Management Med Activities Anxiety Level Calm Cooperation Cooperative Perception Coherent Interest in Health Problem Asks Questions Education Importance Acknowledges Need Does Patient Smoke tobacco or other Yes substances Is Patient Diabetic No Functional Assessment Recent Decline in Ability to Perform Denies Any Declines Culture/Jew/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 Char Filter Operator Helper to contact place of anglican No Teaching: Wound Center Compression Wraps & Stockings -Person Taught Patient Discharge Instructions -Person Taught Patient (a) 1 - + WC - Nurse 1 - General Ulcer Measurement Start: 10/10/23 14:02 Freq: Status: Active Protocol: Activity Type Activity Date Activity User E-sign Co-sign Detail Recorded Client Recorded Date Recorded By Document 10/10/23 14:02 DL [email or web address] 10/10/23 14:18 DL 10/10/23 14:02 Wound Center Nurse 1 #9 L Heel -Current Size (cm) - Length 1 -Current Size (cm) - Width 1.8 -Current Size (cm) - Depth 0.1 -Total Square Cm 1.8 -Photo Taken Yes -Classification - Thickness Full Thickness without Exposed Support Structure -Exudate Amt Medium -Exudate Type Serosanguineous -Wound Margin Distinct, Outline Attached -Granulation Amt Large (67-100%) -Granulation Quality Pale -Necrosis Amt None Present (0 %) -Structure Exposed N/A -Texture (Marva-wound Skin Appearance) Callus -Moisture (Marva-wound Skin Appearance) Dry/Scaly -Color (Marva-wound Skin Appearance) Hemosiderin Staining -Temperature (Marva-wound Skin No Abnormality Appearance) (Pt Warm) -Tenderness on Palpation (Marva-wound No Skin Appearance) -Ulcer Cleansing Soap and Water -Foul Odor after Cleansing No -Anesthetic Used 5% Lidocaine Gel Right Calf (cm) 49 Right Ankle (cm) 29.3 Left Calf (cm) 48.5 Left Ankle (cm) 29 WC - Nurse 2 - General Ulcer CM Notes Start: 10/10/23 14:02 Freq: Status: Active Protocol: Activity Type Activity Date Activity User E-sign Co-sign Detail Recorded Client Recorded Date Recorded By Document 10/10/23 14:35 [id number] 10/10/23 14:43 10/10/23 14:35 Wound Center Nurse 2 #9 L Heel -Time 14:41 -Correct Patient Yes -Correct Side, Site, Position Yes -Correct Procedure Yes -Procedure Performed Yes -Type of Procedure Debridement -Clinical Debridement Subcutaneous -Tissue Removed Subcutaneous -Post Debridement (cm) - Length 2.0 -Post Debridement (cm) - Width 2.3 -Post Debridement (cm) - Depth 0.1 -Total Square (Post) (cm) 4.60 -Area of Debridement (cm) - Length 2.0 -Area of Debridement (cm) - Width 2.3 -Total Square (Area) (cm) 4.60 -Tunneling No -Undermining/Tunneling No -Circular Undermining No -Wound/Ulcer Outcome Not Healed -Ulcer Cleansing Rinsed/ Irrigated with Saline -Foul Odor after Cleansing No -Bioengineered Tissue No -Bleeding Controlled with Pressure -Treatment Response Procedure Tolerated Well -Offloading No -Debridement - Subq, 1st 20sq cm Yes Pain Scale: 0-10 Numeric Is Patient Pain Free? Yes - Nurse 3 - General Ulcer D/C NN Start: 10/10/23 14:02 Freq: Status: Active Protocol: Activity Type Activity Date Activity User E-sign Co-sign Detail Recorded Client Recorded Date Recorded By Document 10/10/23 14:56 KW wound center 10/10/23 15:10 KW 10/10/23 14:56 Wound Care Center Nurse 3 #9 L Heel -Primary Dressing Applied Promogran Teena Matter -Primary Dressing Covered/Secured with Dry Gauze & Roll Gauze, Secured with Tape -Promogran Teena Matter 1 Left -Tubular Bandage Single Layer -Size of Tubigrip Used Size F -Size F ($) 1 Pain Scale: 0-10 Numeric Is Patient Pain Free? Yes WC - Visit Discharge Discharge Condition Stable Ambulatory Status Wheelchair Medication Reconcilliation completed & No provided to patient/care provider Clinical Summary of Care Provided Yes Assessment/Plan Assessment/Plan (1) Non-pressure chronic ulcer of left heel and midfoot with fat layer exposed: CODE(S): L97.422 - Non-pressure chronic ulcer of left heel and midfoot with fat layer exposed PLAN: Patient was examined and evaluated. All findings were discussed with the patient. All questions were answered to the patient's satisfaction. Excisional debridement down to and including subcutaneous tissue with a number 5 mm dermal curette to the left heel without incident. Predebridement measurement is 1.0 x 1.8 x 0.1 cm. Postdebridement measurement is 2.0 x 2.3 x 0.1 cm. Left lower extremities were cleaned and patted dry. Moist Teena was applied to the left lower extremity followed by dry sterile dressing and single-layer Tubigrip. Patient will continue the same dressing changes at the SNF. We will order vascular studies to see patient's arterial and venous blood flow. Patient will be given a order for x-rays of the left foot. Follow-up at the wound care center with Dr. Rebollar in 1 week. (2) Other specified peripheral vascular diseases: CODE(S): I73.89 - Other specified peripheral vascular diseases
== END 2023-10-12 23:59 | disposition home or self-care (01) ==
LOC: WC 13:35
PROVIDERS: Referring Provider Podiatrist; Visit Provider Podiatrist Foot & Ankle Surgery
DX: I73.89 Other specified peripheral vascular diseases (principal); L97.422 Non-pressure chronic ulcer of left heel and midfoot with fat layer exposed; I50.9 Heart failure, unspecified; Z87.891 Personal history of nicotine dependence; I89.0 Lymphedema, not elsewhere classified; Z79.899 Other long term (current) drug therapy
CPT/HCPCS: 11042; 99214; G0463

== ENCOUNTER 2023-11-09 10:15 | Outpatient (RCR) | payer MEDICARE, MEDICAID, SELFPAY ==
[2023-10-13 00:15] VITALS: BP 150/86; PULSE 86; RESP 20; TEMP 36.3; BMI 43.6
[2023-10-17 14:16] VITALS: BP 140/60; PULSE 96; RESP 18; TEMP 36; BMI 43.6
--- NOTE | 2023-10-17 15:30 | PCM.WC.PN ---
History of Present Illness Date of Service: 10/17/23 Chief Complaint: Bilateral lower extremity ulcers. History of Wound: Mr. Beltran is a 68-year-old male presenting to the wound care center today from [facility] for follow-up and evaluation of left heel ulceration. Patient was ultimately seen by an outside provider had surgical intervention and discharged to a SNF for [id number] care. Patient's wound has progressed with conservative treatment with Teena and dressing changes. He did complete oral antibiotics per infectious disease recommendation. Patient is currently living status is at the SNF and then after discharge she will be returning to his van making him homeless which he is comfortable with. He denies trauma. Denies constitutional symptoms. No other pedal complaints at this time. Subjective Subjective Mr. Beltran is a 68-year-old male presenting to the wound care center today for follow-up of left heel ulcer. He has been doing dressing changes at the retirement with Teena and dry sterile dressing and wrap. He states that his wound is stable with no drainage. He does not concern for infection. He was wondering when he can be discharged to go live in his car. Denies trauma. Denies constitutional symptoms. No other pedal complaints at this time. Objective Data Objective Data Vital Signs: Vital Signs Temp Pulse Resp BP O2 Del Method 96.8 F L 96 18 140/60 H Room Air 10/17/23 14:16 10/17/23 14:16 10/17/23 14:16 10/17/23 14:16 10/17/23 14:16 Oxygen Delivery Method Room Air Weight: 141.903 kg Body Mass Index (BMI) 43.6 Physical Exam Narrative Vascular: DP and PT pulses are palpable. CFT is brisk. Nonpitting edema appreciated to the bilateral lower extremity. skin temperature gradient is warm to warm from proximal ankle to distal digits. Neurological: Light touch intact. Patient response to painful stimuli. Dermatological: Evidence of full-thickness ulceration to left heel measuring 1.9 x 2.7 x 0.1 cm. Wound base is under percent granular nature. There is no sign of infection at this time. Excisional debridement down to and including subcutaneous tissue with a number 5 mm dermal curette to the left heel without incident. Predebridement measurement is 1.7 x 2.6 x 0.1 cm. Postdebridement measurement is 1.9 x 2.7 x 0.1 cm. Musculoskeletal: Muscle strength 5-5 in all quadrants bilateral. Mild pain to palpation to the full-thickness ulceration left heel. No pain with calf compression. Debridement Note Debridement Note Debridement Free Text: Excisional debridement down to and including subcutaneous tissue with a number 5 mm dermal curette to the left heel without incident. Predebridement measurement is 1.7 x 2.6 x 0.1 cm. Postdebridement measurement is 1.9 x 2.7 x 0.1 cm. Post-Debridement Measurements and Additional Note: Post-Debridement Measurements/Treatment - Nurse 1 - General Ulcer Assessment Start: 10/17/23 14:16 Freq: Status: Active Protocol: WILLIAM Activity Type Activity Date Activity User E-sign Co-sign Detail Recorded Client Recorded Date Recorded By Document 10/17/23 14:16 KW Wound center 10/17/23 14:22 KW 10/17/23 14:16 WC - Today's Visit Information Type of service Follow-up Visit (Physician/COMMISSIONING MANAGER ) Arrival Mode Wheelchair Patient Identification Verified (Name & Yes ) Height and Weight Body Mass Index (BMI) 43.6 BMI Classification Obese Vital Signs Temperature (97.8 F-99.1 F) 96.8 F L Temperature Source Temporal Pulse Rate (60-100) 96 Pulse Location Monitor Respiratory Rate (12-18) 18 Respiratory rate source Observation Oxygen Delivery Method Room Air Blood Pressure (90/60-120/80) 140/60 H Blood Pressure Mean (mm Hg) 86 Source Monitor Position Semi-Fowlers Blood Pressure Location Left Forearm History Since Last Visit- (Skip if this is Patient's initial visit) Have you changed medications since your No last visit? Any new allergies or adverse reactions No Had a fall/change in ADL's that may No increase risk of falls Signs or symptoms of abuse and/or No neglect since last visit Have you been in the hospital since your No last visit? Has dressing in place as prescribed Yes Has compression in place as prescribed Yes Has offloadiing in place as prescribed N/A Experienced any changes in pain level or No management Left Footwear Surgical Shoe with pressure relief insole Right Footwear Slipper Pain Scale: 0-10 Numeric Is Patient Pain Free? Yes - Nurse 1 - General Ulcer Measurement Start: 10/17/23 14:16 Freq: Status: Active Protocol: Activity Type Activity Date Activity User E-sign Co-sign Detail Recorded Client Recorded Date Recorded By Document 10/17/23 14:16 KW Wound center 10/17/23 14:22 KW 10/17/23 14:16 Wound Center Nurse 1 #9 L Heel -Current Size (cm) - Length 2 -Current Size (cm) - Width 2.5 -Total Square Cm 5.0 -Exudate Amt Small -Exudate Type Serosanguineous -Granulation Amt Large (67-100%) -Granulation Quality Hyper- granulation,Red -Texture (Marva-wound Skin Appearance) Assessed,Callus -Moisture (Marva-wound Skin Appearance) Assessed -Color (Marva-wound Skin Appearance) Assessed -Temperature (Marva-wound Skin No Abnormality Appearance) (Pt Warm) -Tenderness on Palpation (Marva-wound No Skin Appearance) -Ulcer Cleansing Rinsed/ Irrigated with Saline -Foul Odor after Cleansing No -Anesthetic Used 5% Lidocaine Gel Left Calf (cm) 50 WC - Nurse 2 - General Ulcer CM Notes Start: 10/17/23 14:16 Freq: Status: Active Protocol: Activity Type Activity Date Activity User E-sign Co-sign Detail Recorded Client Recorded Date Recorded By Document 10/17/23 14:38 [id number] 10/17/23 14:43 10/17/23 14:38 Wound Center Nurse 2 #9 L Heel -Time 14:40 -Correct Patient Yes -Correct Side, Site, Position Yes -Correct Procedure Yes -Procedure Performed Yes -Type of Procedure Debridement -Clinical Debridement Subcutaneous -Tissue Removed Subcutaneous -Post Debridement (cm) - Length 1.9 -Post Debridement (cm) - Width 2.7 -Post Debridement (cm) - Depth 0.1 -Total Square (Post) (cm) 5.13 -Area of Debridement (cm) - Length 1.9 -Area of Debridement (cm) - Width 2.7 -Total Square (Area) (cm) 5.13 -Tunneling No -Undermining/Tunneling No -Circular Undermining No -Wound/Ulcer Outcome Not Healed -Ulcer Cleansing Rinsed/ Irrigated with Saline -Foul Odor after Cleansing No -Bioengineered Tissue No -Bleeding Controlled with Pressure -Treatment Response Procedure Tolerated Well -Offloading No -Debridement - Subq, 1st 20sq cm Yes Pain Scale: 0-10 Numeric Is Patient Pain Free? Yes Assessment/Plan Assessment/Plan (1) Non-pressure chronic ulcer of left heel and midfoot with fat layer exposed: CODE(S): L97.422 - Non-pressure chronic ulcer of left heel and midfoot with fat layer exposed PLAN: Patient was examined and evaluated. All findings were discussed with the patient. All questions were answered to the patient's satisfaction. Excisional debridement down to and including subcutaneous tissue with a number 5 mm dermal curette to the left heel without incident. Predebridement measurement is 1.7 x 2.6 x 0.1 cm. Postdebridement measurement is 1.9 x 2.7 x 0.1 cm. The left heel was wiped clean and patted dry. The wound was dressed with moist Teena dry sterile dressing and single-layer Tubigrip. The patient will be getting his vascular studies in the next upcoming days. Will make determination after we see his results to compressing with 3M wraps. Patient will continue current dressing changes. A surgical shoe with offloading heel pad was dispensed. Patient was grateful for his care. Follow-up at the wound care center with Dr. Rebollar in 2 week. (2) Other specified peripheral vascular diseases: CODE(S): I73.89 - Other specified peripheral vascular diseases
--- NOTE | 2023-10-23 13:53 | ART_ITS ---
Reason For Study: LLE Ulcer/Wound Procedure A bilateral lower extremity continuous wave Doppler with analog waveform analysis,segmental pressures,and ankle brachial indexes without exercise. Left Segmental Pressures Left brachial= 109mmHg. Left posterior tibial artery = 123mmHg. Left dorsalis pedis artery = 131mmHg. Left digit = 73 mmHg. The left posterior tibial artery waveforms are triphasic. The left dorsalis pedis waveforms are triphasic. Right Segmental Pressures Right brachial= 106mmHg. Right posterior tibial artery = 119mmHg. Right dorsalis pedis artery = 135mmHg. Right digit = 118 mmHg. The right posterior tibial artery waveforms are triphasic. The right dorsalis pedis waveforms are triphasic. Indices The right ankle brachial index by the posterior tibial artery is 1.09. The right ankle brachial index by the dorsalis pedis is 1.24. The right digital-brachial index is 1.08. The left ankle brachial index by the posterior tibial artery is 1.13. The left ankle brachial index by the dorsalis pedis is 1.20. The left digital-brachial index is 0.67. VL/Lower Ext Art Exam w/o Exercis Interpretation Summary Triphasic Doppler waveforms are noted at ankle level bilaterally. Pulse-volume recordings appear diminished at digital level on the left, but satisfactory at all other levels b ilaterally. Resting ankle-brachial indices are normal bilaterally. The right digital-brachial index is normal. The left digital-brachial index is mildly diminished. Arterial flow appears normal at ankle level bilaterally, and at digital level o n the right. There is evidence of mild arterial occlusive disease at digital level on the left. Ordering Physician: Myles eRbollar Referring Physician: Alejandro Sanders Performed By: Andrew Michelle RVT and Student
--- NOTE | 2023-10-23 13:53 | VDLE_ITS ---
Reason For Study: BLE Edema RIGHT LEFT CFV is compressible, spontaneous, phasic, CFV is compressible, spontaneous, phasic, competent and demonstrates normal competent, and demonstrates normal augmentation. augmentation. FV is compressible, spontaneous, phasic, FV is compressible, spontaneous, phasic, competent and demonstrates normal competent and demonstrates normal augmentation. augmentation. POP V is compressible, spontaneous, phasic, POP V is compressible, spontaneous, phasic, competent and demonstrates normal competent and demonstrates normal augmentation. augmentation. T/P Trunk is compressible. T/P Trunk is compressible. PTV is compressible. PTV is compressible. RT PerV is compressible. LT PerV is compressible. SFJ is competent and measures 0.76 cm. SFJ is competent and measures 0.73 cm. GSV proximal thigh measures 0.67 x 0.63 cm. GSV proximal thigh measures 0.60 x 0.70 cm. GSV at knee measures 0.62 x 0.59 cm. GSV at knee measures 0.57x 0.57 cm. GSV is competent throughout. GSV is competent throughout. SSV proximal calf is competent and measures SSV proximal calf is INCOMPETENT for greater 0.38 x 0.37 cm. than 0.5 seconds and measures 0.64 x 0.64 cm. ASV mid calf is INCOMPETENT for greater than ASV proximal calf is INCOMPETENT for greater 0.5 seconds and measures 0.44 x 0.49 cm. than 0.5 seconds and measures 0.49 x 0.61 cm. Procedure Exam performed in department. This is a venous duplex using B-mode, color flow and spectral Doppler. The exam was diagnostic. Patient was scanned in reverse Trendelenburg position during reflux assessment. VL/Venous Duplex US - Gee Extrem Interpretation Summary Deep veins of the lower extremities are bilaterally patent and compressible seg mentally. There is no evidence of deep vein thrombosis on either side. Valvular competence appears in tact within the proximal deep venous systems bilaterally. The great saphenous veins appear bila terally patent and compressible segmentally. Sapheno-femoral junctions are bilaterally competent . Valvular competence appears to be intact segmentally within the great saphenous veins bilaterally. The right small saphenous vein is patent and competent. The left small saphenous vein is patent and incompetent. The accessory saphenous vein in the right mid-calf is incompetent. The accessory sa phenous vein in the left proximal calf is incompetent. Ordering Physician: Myles Rebollar Referring Physician: Alejandro Sanders Performed By: Andrew Michelle RVT and Student
[2023-10-31 13:58] VITALS: BP 106/71; PULSE 95; RESP 20; TEMP 36.2; BMI 43.6
--- NOTE | 2023-10-31 16:38 | PCM.WC.PN ---
History of Present Illness Date of Service: 10/31/23 Chief Complaint: Bilateral lower extremity ulcers. History of Wound: Mr. Beltran is a 68-year-old male presenting [facility] care center [facility] from [facility] for follow-up and evaluation of left heel ulceration. Patient was ultimately seen by an outside provider had surgical intervention and discharged to a SNF for [id number] care. Patient's wound has progressed with conservative treatment with Teena and dressing changes. He did complete oral antibiotics per infectious disease recommendation. Patient is currently living status is at the SNF and then after discharge she will be returning to his van making him homeless which he is comfortable with. He denies trauma. Denies constitutional symptoms. No other pedal complaints at this time. Subjective Subjective Mr. Beltran is a 68-year-old male presenting to the wound care center today for follow-up of left heel ulcer. He has been doing dressing changes at the assisted with Teena and dry sterile dressing and wrap. He states that his wound is stable with no drainage. No concern for infection. He was wondering when he can be discharged to go live in his car. Denies trauma. Denies constitutional symptoms. No other pedal complaints at this t Objective Data Objective Data Vital Signs: Vital Signs Temp Pulse Resp BP O2 Del Method 97.1 F L 95 20 H 106/71 Room Air 10/31/23 13:58 10/31/23 13:58 10/31/23 13:58 10/31/23 13:58 10/17/23 14:16 Oxygen Delivery Method Room Air Weight: 141.903 kg Body Mass Index (BMI) 43.6 Physical Exam Narrative Vascular: DP and PT pulses are palpable. CFT is brisk. Nonpitting edema appreciated to the bilateral lower extremity. skin temperature gradient is warm to warm from proximal ankle to distal digits. Neurological: Light touch intact. Patient response to painful stimuli. Dermatological: Evidence of full-thickness ulceration to left heel measuring 1.1 x 2.0 x 0.1 cm. Wound base is under percent granular nature. There is no sign of infection at this time. Excisional debridement down to and including subcutaneous tissue with a number 5 mm dermal curette to the left heel without incident. Predebridement measurement is 1.0 x 1.8 x 0.1 cm. Postdebridement measurement is 1.1 x 2.0 x 0.1 cm. Musculoskeletal: Muscle strength 5-5 in all quadrants bilateral. Mild pain to palpation to the full-thickness ulceration left heel. No pain with calf compression. Debridement Note Debridement Note Debridement Free Text: Excisional debridement down to and including subcutaneous tissue with a number 5 mm dermal curette to the left heel without incident. Predebridement measurement is 1.0 x 1.8 x 0.1 cm. Postdebridement measurement is 1.1 x 2.0 x 0.1 cm. Post-Debridement Measurements and Additional Note: Post-Debridement Measurements/Treatment - Nurse 1 - General Ulcer Assessment Start: 10/17/23 14:16 Freq: Status: Active Protocol: .[employer] Activity Type Activity Date Activity User E-sign Co-sign Detail Recorded Client Recorded Date Recorded By Document 10/17/23 14:16 KW Wound center 10/17/23 14:22 KW Document 10/31/23 13:58 DL [id number] 10/31/23 14:06 DL 10/17/23 10/31/23 14:16 13:58 - Today's Visit Information Type of service Follow-up Visit Follow-up Visit (Physician/WRAPPING MACHINE HELPER (Physician/WRAPPING MACHINE HELPER ) ) Arrival Mode Wheelchair Ambulatory, Crutches Transfer Assistance None Patient Identification Verified (Name & Yes Yes ) Patient Requires Transmission-Based No Precautions Height and Weight Body Mass Index (BMI) 43.6 43.6 BMI Classification Obese Obese Vital Signs Temperature (97.8 F-99.1 F) 96.8 F L 97.1 F L Temperature Source Temporal Temporal Pulse Rate (60-100) 96 95 Pulse Location Monitor Monitor Respiratory Rate (12-18) 18 20 H Respiratory rate source Observation Observation Oxygen Delivery Method Room Air Blood Pressure (90/60-120/80) 140/60 H 106/71 Blood Pressure Mean (mm Hg) 86 82 Source Monitor Monitor Position Semi-Fowlers Blood Pressure Location Left Forearm History Since Last Visit- (Skip if this is Patient's initial visit) Have you changed medications since your No No last visit? Any new allergies or adverse reactions No No Had a fall/change in ADL's that may No No increase risk of falls Signs or symptoms of abuse and/or No No neglect since last visit Have you been in the hospital since your No No last visit? Has dressing in place as prescribed Yes Yes Has compression in place as prescribed Yes Yes Has offloadiing in place as prescribed N/A N/A Experienced any changes in pain level or No No management Left Footwear Surgical Shoe Surgical Shoe with pressure with pressure relief insole relief insole Right Footwear Slipper Surgical Shoe with pressure relief insole Pain Scale: 0-10 Numeric Is Patient Pain Free? Yes Yes WC - Nurse 1 - General Ulcer Measurement Start: 10/17/23 14:16 Freq: Status: Active Protocol: Activity Type Activity Date Activity User E-sign Co-sign Detail Recorded Client Recorded Date Recorded By Document 10/17/23 14:16 KW Wound center 10/17/23 14:22 KW Document 10/31/23 13:58 DL [id number] 10/31/23 14:06 DL 10/17/23 10/31/23 14:16 13:58 Wound Center Nurse 1 #9 L Heel -Current Size (cm) - Length 2 0.6 -Current Size (cm) - Width 2.5 2 -Current Size (cm) - Depth 0.1 -Total Square Cm 5.0 1.2 -Exudate Amt Small Small -Exudate Type Serosanguineous Serosanguineous -Wound Margin Distinct, Outline Attached -Granulation Amt Large (67-100%) Medium (34-66%) -Granulation Quality Hyper- Red granulation,Red -Necrosis Amt Medium (34-66%) -Necrotic Tissue Type Adherent Slough -Structure Exposed N/A -Texture (Marva-wound Skin Appearance) Assessed,Callus Scarring -Moisture (Marva-wound Skin Appearance) Assessed No Abnormality -Color (Marva-wound Skin Appearance) Assessed No Abnormality -Temperature (Marva-wound Skin No Abnormality No Abnormality Appearance) (Pt Warm) (Pt Warm) -Tenderness on Palpation (Marva-wound No No Skin Appearance) -Ulcer Cleansing Rinsed/ Soap and Water Irrigated with Saline -Foul Odor after Cleansing No No -Anesthetic Used 5% Lidocaine 5% Lidocaine Gel Gel Left Calf (cm) 50 WC - Nurse 2 - General Ulcer CM Notes Start: 10/17/23 14:16 Freq: Status: Active Protocol: Activity Type Activity Date Activity User E-sign Co-sign Detail Recorded Client Recorded Date Recorded By Document 10/17/23 14:38 [id number] 10/17/23 14:43 Document 10/31/23 14:13 [id number] 10/31/23 14:19 JF 10/17/23 10/31/23 14:38 14:13 Wound Center Nurse 2 #9 L Heel -Time 14:40 14:14 -Correct Patient Yes Yes -Correct Side, Site, Position Yes Yes -Correct Procedure Yes Yes -Procedure Performed Yes Yes -Type of Procedure Debridement Debridement -Clinical Debridement Subcutaneous Subcutaneous -Tissue Removed Subcutaneous Subcutaneous -Post Debridement (cm) - Length 1.9 1.1 -Post Debridement (cm) - Width 2.7 2 -Post Debridement (cm) - Depth 0.1 1.1 -Total Square (Post) (cm) 5.13 2.2 -Area of Debridement (cm) - Length 1.9 1.1 -Area of Debridement (cm) - Width 2.7 2 -Total Square (Area) (cm) 5.13 2.2 -Tunneling No No -Undermining/Tunneling No No -Circular Undermining No No -Wound/Ulcer Outcome Not Healed Not Healed -Ulcer Cleansing Rinsed/ Rinsed/ Irrigated with Irrigated with Saline Saline -Foul Odor after Cleansing No No -Bioengineered Tissue No No -Bleeding Controlled with Pressure Pressure -Treatment Response Procedure Procedure Tolerated Well Tolerated Well -Offloading No No -Debridement - Subq, 1st 20sq cm Yes Yes Pain Scale: 0-10 Numeric Is Patient Pain Free? Yes Yes - Nurse 3 - General Ulcer D/C NN Start: 10/17/23 14:16 Freq: Status: Active Protocol: Activity Type Activity Date Activity User E-sign Co-sign Detail Recorded Client Recorded Date Recorded By Document 10/31/23 14:31 KW tomasa 10/31/23 14:32 10/31/23 14:31 Wound Care Center Nurse 3 #9 L Heel -Primary Dressing Applied Optilok 6.5x10, Promogran Teena Matter -Primary Dressing Covered/Secured with Dry Gauze & Roll Gauze, Secured with Tape -Optilok 6.5x10 1 -Promogran Teena Matter 1 Left -Multi-Layered Wrap Application Multi-Layer Comp - Left ($) Pain Scale: 0-10 Numeric Is Patient Pain Free? Yes - Visit Discharge Discharge Condition Stable Ambulatory Status Crutches Medication Reconcilliation completed & No provided to patient/care provider Clinical Summary of Care Provided Yes Assessment/Plan Assessment/Plan (1) Non-pressure chronic ulcer of left heel and midfoot with fat layer exposed: CODE(S): L97.422 - Non-pressure chronic ulcer of left heel and midfoot with fat layer exposed PLAN: Patient was examined and evaluated. All findings were discussed with the patient. All questions were answered to the patient's satisfaction. Excisional debridement down to and including subcutaneous tissue with a number 5 mm dermal curette to the left heel without incident. Predebridement measurement is 1.0 x 1.8 x 0.1 cm. Postdebridement measurement is 1.1 x 2.0 x 0.1 cm. Left lower extremity was were cleaned and patted dry. The ulceration was dressed with moist Teena dry sterile dressing and 3M wrap. Patient will be given an order to be [facility] at his request to live in his car which she is more comfortable with. Patient understands all risk and benefits with leaving the nursing facility. We did review the patient's vascular studies that show unremarkable arterial studies there is evidence of incompetency's to the lesser saphenous vein to the left lower extremity and the patient will be placed in a 3M wrap why he is continuing to heal his ulceration. Follow-up at the wound care center with Dr. Rebollar in 1 week. (2) Other specified peripheral vascular diseases: CODE(S): I73.89 - Other specified peripheral vascular diseases
[2023-11-02 10:25] VITALS: BP 133/61; PULSE 93; RESP 16; TEMP 36.3; BMI 43.6
[2023-11-07 13:56] VITALS: BP 134/75; PULSE 68; RESP 18; TEMP 36.6; BMI 43.6
--- NOTE | 2023-11-07 14:33 | PCM.WC.PN ---
History of Present Illness Date of Service: 11/07/23 Chief Complaint: Bilateral lower extremity ulcers. History of Wound: Mr. Beltran is a 68-year-old male presenting to the [facility] for [facility]-up and evaluation of left heel ulceration. Patient was ultimately seen by an outside provider had surgical intervention and discharged to a SNF for zbxvur-bhr-wvldr care. Patient's wound has progressed with conservative treatment with Teena and dressing changes. He did complete oral antibiotics per infectious disease recommendation. Patient is currently living status is at the SNF and then after discharge she will be returning to his van making him homeless which he is comfortable with. He denies trauma. Denies constitutional symptoms. No other pedal complaints at this time. Subjective Subjective Mr. Beltran is a 76-year-old male presenting to wound care center today for follow-up evaluation of left heel full-thickness ulceration. [facility] just [facility] is current residing in his van. He has much comfortable being in his own environment. He has been grateful for the discharge order. He does admit to swelling to the right leg but relates the swelling secondary to increased salt intake. He denies any new onset of trauma. Denies constitutional symptoms. Other pedal complaints at this time. Objective Data Objective Data Vital Signs: Vital Signs Temp Pulse Resp BP O2 Del Method 97.8 F 68 18 134/75 H Room Air 11/07/23 13:56 11/07/23 13:56 11/07/23 13:56 11/07/23 13:56 11/02/23 10:25 Oxygen Delivery Method Room Air Weight: 141.903 kg Body Mass Index (BMI) 43.6 Physical Exam Narrative Vascular: DP and PT pulses are palpable. CFT is brisk. Nonpitting edema appreciated left lower extremity. +1 pitting edema appreciated right lower extremity. Skin temperature gradient is warm to warm from proximal ankle to distal digits. Neurological: Light touch intact. Patient response to painful stimuli. Dermatological: Evidence of full-thickness ulceration to left heel measuring 0.8 x 1.9 x 0.1 cm. Wound base is under percent granular nature. There is no sign of infection at this time. Excisional debridement down to and including subcutaneous tissue with a number 5 mm dermal curette to the left heel without incident. Predebridement measurement is 0.7 x 1.8 x 0.1 cm. Postdebridement measurement is 0.8 x 1.9 x 0.1 cm. Musculoskeletal: Muscle strength 5-5 in all quadrants bilateral. Mild pain to palpation to the full-thickness ulceration left heel. No pain with calf compression. Debridement Note Debridement Note Debridement Free Text: Excisional debridement down to and including subcutaneous tissue with a number 5 mm dermal curette to the left heel without incident. Predebridement measurement is 0.7 x 1.8 x 0.1 cm. Postdebridement measurement is 0.8 x 1.9 x 0.1 cm. Post-Debridement Measurements and Additional Note: Post-Debridement Measurements/Treatment - Nurse 1 - General Ulcer Assessment Start: 10/17/23 14:16 Freq: Status: Active Protocol: [email or web address] Activity Type Activity Date Activity User E-sign Co-sign Detail Recorded Client Recorded Date Recorded By Document 10/17/23 14:16 KW Wound center 10/17/23 14:22 KW Document 10/31/23 13:58 DL 10.10.25.7 10/31/23 14:06 DL Document 11/02/23 10:25 DS 1 11/02/23 10:26 DS Document 11/07/23 13:56 DL [id number] 11/07/23 14:07 DL 10/17/23 10/31/23 11/02/23 14:16 13:58 10:25 - Today's Visit Information Type of service Follow-up Visit Follow-up Visit (Physician/PERINATAL SPECIALIST (Physician/PERINATAL SPECIALIST ) ) Arrival Mode Wheelchair Ambulatory, Crutches Transfer Assistance None Patient Identification Verified (Name & Yes Yes ) Patient Requires Transmission-Based No Precautions Height and Weight Body Mass Index (BMI) 43.6 43.6 43.6 BMI Classification Obese Obese Obese Vital Signs Temperature (97.8 F-99.1 F) 96.8 F L 97.1 F L 97.3 F L Temperature Source Temporal Temporal Temporal Pulse Rate (60-100) 96 95 93 Pulse Location Monitor Monitor Monitor Respiratory Rate (12-18) 18 20 H 16 Respiratory rate source Observation Observation Observation Oxygen Delivery Method Room Air Room Air Blood Pressure (90/60-120/80) 140/60 H 106/71 133/61 H Blood Pressure Mean (mm Hg) 86 82 85 Source Monitor Monitor Monitor Position Semi-Fowlers Semi-Fowlers Blood Pressure Location Left Forearm Right Arm History Since Last Visit- (Skip if this is Patient's initial visit) Have you changed medications since your No No No last visit? Any new allergies or adverse reactions No No No Had a fall/change in ADL's that may No No No increase risk of falls Signs or symptoms of abuse and/or No No No neglect since last visit Have you been in the hospital since your No No No last visit? Has dressing in place as prescribed Yes Yes Yes Has compression in place as prescribed Yes Yes Yes Has offloadiing in place as prescribed N/A N/A N/A Experienced any changes in pain level or No No No management Left Footwear Surgical Shoe Surgical Shoe Surgical Shoe with pressure with pressure with pressure relief insole relief insole relief insole Right Footwear Slipper Surgical Shoe Surgical Shoe with pressure with pressure relief insole relief insole Pain Scale: 0-10 Numeric Is Patient Pain Free? Yes Yes Yes 11/07/23 13:56 WC - Today's Visit Information Type of service Follow-up Visit (Physician/PERINATAL SPECIALIST ) Arrival Mode Ambulatory, Crutches Transfer Assistance None Patient Identification Verified (Name & Yes ) Patient Requires Transmission-Based No Precautions Height and Weight Body Mass Index (BMI) 43.6 BMI Classification Obese Vital Signs Temperature (97.8 F-99.1 F) 97.8 F Temperature Source Temporal Pulse Rate (60-100) 68 Pulse Location Monitor Respiratory Rate (12-18) 18 Respiratory rate source Observation Oxygen Delivery Method Blood Pressure (90/60-120/80) 134/75 H Blood Pressure Mean (mm Hg) 94 Source Monitor Position Blood Pressure Location History Since Last Visit- (Skip if this is Patient's initial visit) Have you changed medications since your No last visit? Any new allergies or adverse reactions No Had a fall/change in ADL's that may No increase risk of falls Signs or symptoms of abuse and/or No neglect since last visit Have you been in the hospital since your No last visit? Has dressing in place as prescribed Yes Has compression in place as prescribed Yes Has offloadiing in place as prescribed Yes Experienced any changes in pain level or No management Left Footwear Surgical Shoe with pressure relief insole Right Footwear Surgical Shoe with pressure relief insole Pain Scale: 0-10 Numeric Is Patient Pain Free? Yes WC - Nurse 1 - General Ulcer Measurement Start: 10/17/23 14:16 Freq: Status: Active Protocol: Activity Type Activity Date Activity User E-sign Co-sign Detail Recorded Client Recorded Date Recorded By Document 10/17/23 14:16 KW Wound center 10/17/23 14:22 KW Document 10/31/23 13:58 DL [email or web address] 10/31/23 14:06 DL Document 11/02/23 10:26 DS 1 11/02/23 10:56 DS Document 11/07/23 13:56 DL [email or web address] 11/07/23 14:07 DL 10/17/23 10/31/23 11/02/23 14:16 13:58 10:26 Wound Center Nurse 1 #9 L Heel -Current Size (cm) - Length 2 0.6 -Current Size (cm) - Width 2.5 2 -Current Size (cm) - Depth 0.1 -Total Square Cm 5.0 1.2 -Photo Taken -Exudate Amt Small Small -Exudate Type Serosanguineous Serosanguineous -Wound Margin Distinct, Outline Attached -Granulation Amt Large (67-100%) Medium (34-66%) -Granulation Quality Hyper- Red granulation,Red -Necrosis Amt Medium (34-66%) -Necrotic Tissue Type Adherent Slough -Structure Exposed N/A -Texture (Marva-wound Skin Appearance) Assessed,Callus Scarring -Moisture (Marva-wound Skin Appearance) Assessed No Abnormality -Color (Marva-wound Skin Appearance) Assessed No Abnormality -Temperature (Marva-wound Skin No Abnormality No Abnormality Appearance) (Pt Warm) (Pt Warm) -Tenderness on Palpation (Marva-wound No No Skin Appearance) -Ulcer Cleansing Rinsed/ Soap and Water Irrigated with Saline -Foul Odor after Cleansing No No -Anesthetic Used 5% Lidocaine 5% Lidocaine Gel Gel Left Calf (cm) 50 48.7 Left Ankle (cm) 32.0 11/07/23 13:56 Wound Center Nurse 1 #9 L Heel -Current Size (cm) - Length 0.8 -Current Size (cm) - Width 1.8 -Current Size (cm) - Depth 0.1 -Total Square Cm 1.44 -Photo Taken Yes -Exudate Amt Medium -Exudate Type Serosanguineous -Wound Margin Distinct, Outline Attached -Granulation Amt Large (67-100%) -Granulation Quality [place],Red -Necrosis Amt Small (1-33%) -Necrotic Tissue Type Adherent Slough -Structure Exposed N/A -Texture (Marva-wound Skin Appearance) Callus, Localized Edema ,Scarring -Moisture (Marva-wound Skin Appearance) Maceration -Color (Marva-wound Skin Appearance) Erythema, Hemosiderin Staining -Temperature (Marva-wound Skin No Abnormality Appearance) (Pt Warm) -Tenderness on Palpation (Marva-wound Yes Skin Appearance) -Ulcer Cleansing Soap and Water -Foul Odor after Cleansing No -Anesthetic Used 5% Lidocaine Gel Left Calf (cm) Left Ankle (cm) WC - Nurse 2 - General Ulcer CM Notes Start: 10/17/23 14:16 Freq: Status: Active Protocol: Activity Type Activity Date Activity User E-sign Co-sign Detail Recorded Client Recorded Date Recorded By Document 10/17/23 14:38 [id number] 10/17/23 14:43 Document 10/31/23 14:13 [id number] 10/31/23 14:19 Document 11/07/23 14:25 000 11/07/23 14:27 10/17/23 10/31/23 11/07/23 14:38 14:13 14:25 Wound Center Nurse 2 #9 L Heel -Time 14:40 14:14 14:27 -Correct Patient Yes Yes Yes -Correct Side, Site, Position Yes Yes Yes -Correct Procedure Yes Yes Yes -Procedure Performed Yes Yes Yes -Type of Procedure Debridement Debridement Debridement -Clinical Debridement Subcutaneous Subcutaneous Subcutaneous -Tissue Removed Subcutaneous Subcutaneous Subcutaneous -Post Debridement (cm) - Length 1.9 1.1 0.8 -Post Debridement (cm) - Width 2.7 2 1.9 -Post Debridement (cm) - Depth 0.1 1.1 0.1 -Total Square (Post) (cm) 5.13 2.2 1.52 -Area of Debridement (cm) - Length 1.9 1.1 0.8 -Area of Debridement (cm) - Width 2.7 2 1.9 -Total Square (Area) (cm) 5.13 2.2 1.52 -Tunneling No No No -Undermining/Tunneling No No No -Circular Undermining No No No -Wound/Ulcer Outcome Not Healed Not Healed Not Healed -Ulcer Cleansing Rinsed/ Rinsed/ Rinsed/ Irrigated with Irrigated with Irrigated with Saline Saline Saline -Foul Odor after Cleansing No No No -Bioengineered Tissue No No No -Bleeding Controlled with Pressure Pressure Pressure -Treatment Response Procedure Procedure Procedure Tolerated Well Tolerated Well Tolerated Well -Offloading No No No -Debridement - Subq, 1st 20sq cm Yes Yes Yes Pain Scale: 0-10 Numeric Is Patient Pain Free? Yes Yes Yes - Nurse 3 - General Ulcer D/C NN Start: 10/17/23 14:16 Freq: Status: Active Protocol: Activity Type Activity Date Activity User E-sign Co-sign Detail Recorded Client Recorded Date Recorded By Document 10/31/23 14:31 KW j 10/31/23 14:32 KW Document 11/02/23 10:26 DS 1 11/02/23 10:56 DS 10/31/23 11/02/23 14:31 10:26 Wound Care Center Nurse 3 #9 L Heel -Ulcer Cleansing Soap and Water -Primary Dressing Applied Optilok 6.5x10, Promogran Promogran Teena Matter Teena Matter -Primary Dressing Covered/Secured with Dry Gauze & Roll Gauze, Secured with Tape -Optilok 6.5x10 1 -Promogran Teena Matter 1 0 Left -Multi-Layered Wrap Application Multi-Layer Multi-Layer Comp - Left ($) Comp - Left ($) Pain Scale: 0-10 Numeric Is Patient Pain Free? Yes Yes - Visit Discharge Discharge Condition Stable Stable Ambulatory Status Crutches Ambulatory, Crutches Transportation Private Auto Medication Reconcilliation completed & No Yes provided to patient/care provider Clinical Summary of Care Provided Yes Yes Assessment/Plan Assessment/Plan (1) Non-pressure chronic ulcer of left heel and midfoot with fat layer exposed: CODE(S): L97.422 - Non-pressure chronic ulcer of left heel and midfoot with fat layer exposed PLAN: Patient was examined and evaluated. All findings were discussed with the patient. All questions were answered to the patient's satisfaction. Excisional debridement down to and including subcutaneous tissue with a number 5 mm dermal curette to the left heel without incident. Predebridement measurement is 0.7 x 1.8 x 0.1 cm. Postdebridement measurement is 0.8 x 1.9 x 0.1 cm. Left lower extremities were cleaned patted dry. Teena moist gauze followed by dry sterile dressing and 3M wrap was applied to left lower extremity. A Tubigrip size F was donned to the right lower extremity. Educated the patient continue to watch what he is eating and to make sure that his salt content is decreased to decrease the swelling. He was also educated the patient that if he continues to swell he may end up getting a wound to the right leg which will need additional 3M compression which she was understanding of. Patient is grateful for his care. Follow-up at the wound care center with Dr. Rebollar in 1 week. (2) Other specified peripheral vascular diseases: CODE(S): I73.89 - Other specified peripheral vascular diseases
[2023-11-09 12:04] VITALS: BP 121/73; PULSE 89; RESP 18; TEMP 36.6; BMI 43.6
--- NOTE | 2023-11-19 09:28 | WC ---
No E [employer] M charged for 11/02/2023.
== END 2023-11-11 23:59 | disposition home or self-care (01) ==
LOC: WC 10:15
PROVIDERS: Referring Provider Podiatrist; Visit Provider Podiatrist Foot & Ankle Surgery
DX: I73.89 Other specified peripheral vascular diseases (principal); L97.422 Non-pressure chronic ulcer of left heel and midfoot with fat layer exposed; Z59.01 Sheltered homelessness; R60.0 Localized edema
CPT/HCPCS: 11042; 29581; 93923; 93970; 99212; G0463

== ENCOUNTER 2023-12-12 14:45 | Outpatient (RCR) | payer MEDICARE, MEDICAID, SELFPAY ==
[2023-11-12 00:30] VITALS: BP 150/86; PULSE 86; RESP 20; TEMP 36.3; BMI 43.6
[2023-11-21 14:57] VITALS: BP 150/71; PULSE 80; RESP 18; TEMP 36.1; BMI 43.6
--- NOTE | 2023-11-21 16:09 | PN.PCM_ITS ---
History of Present Illness Date of Service: 11/21/23 Chief Complaint: Bilateral lower extremity ulcers. History of Wound: Mr. Beltran is a 68-year-old male presenting to the wound care center today from care home facility for follow-up and evaluation of left heel ulceration. Patient was ultimately seen by an outside provider had surgical intervention and discharged to a SNF for hlfihi-byh-wdwut care. Patient's wound has progressed with conservative treatment with Teena and dressing changes. He did complete oral antibiotics per infectious disease recommendation. Patient is currently living status is at the SNF and then after discharge she will be returning to his van making him homeless which he is comfortable with. He denies trauma. Denies constitutional symptoms. No other pedal complaints at this time. Subjective Subjective Mr. Beltran is a 76-year-old male presenting to wound care center today for follow-up evaluation of left heel full-thickness ulceration. Patient has been just discharged from the care home facility is current residing in his van. Patient states that he removed his dressing secondary to getting them wet from sweating. He admits to pain with walking especially to the left heel. Denies trauma. Denies constitutional symptoms. Other pedal complaints at this time. Objective Data Objective Data Vital Signs: Vital Signs Temp Pulse Resp BP 97.0 F L 80 18 150/71 H 11/21/23 14:57 11/21/23 14:57 11/21/23 14:57 11/21/23 14:57 Weight: 141.903 kg Body Mass Index (BMI) 43.6 Physical Exam Narrative Vascular: DP and PT pulses are palpable. CFT is brisk. Nonpitting edema appreciated left lower extremity. +1 pitting edema appreciated right lower extremity. Skin temperature gradient is warm to warm from proximal ankle to distal digits. Neurological: Light touch intact. Patient response to painful stimuli. Dermatological: Evidence of full-thickness ulceration to left heel measuring 1.1 x 2.2 x 0.1 cm. Evidence of undermining at 3:00 level. Evidence of blanchable erythema appreciated to the left heel lateral to the wound. Excisional debridement down to and including subcutaneous tissue with a number 5 mm dermal curette to the left heel without incident. Predebridement measurement is 0.9 x 2.0 x 0.1 cm. Postdebridement measurement is 1.1 x 2.2 x 0.1 cm. Musculoskeletal: Muscle strength 5-5 in all quadrants bilateral. Mild pain to palpation to the full-thickness ulceration left heel. No pain with calf compression. Debridement Note Debridement Note Debridement Free Text: Excisional debridement down to and including subcutaneous tissue with a number 5 mm dermal curette to the left heel without incident. Predebridement measurement is 0.9 x 2.0 x 0.1 cm. Postdebridement measurement is 1.1 x 2.2 x 0.1 cm. Post-Debridement Measurements and Additional Note: Post-Debridement Measurements/Treatment - Nurse 1 - General Ulcer Assessment Start: 11/21/23 14:57 Freq: Status: Active Protocol: WILLIAM Activity Type Activity Date Activity User E-sign Co-sign Detail Recorded Client Recorded Date Recorded By Document 11/21/23 14:57 DS 1 11/21/23 14:59 DS 11/21/23 14:57 WC - Today's Visit Information Type of service Follow-up Visit (Physician/DCS ENGINEER ) Arrival Mode Ambulatory, Crutches Height and Weight Body Mass Index (BMI) 43.6 BMI Classification Obese Vital Signs Temperature (97.8 F-99.1 F) 97.0 F L Temperature Source Temporal Pulse Rate (60-100) 80 Pulse Location Monitor Respiratory Rate (12-18) 18 Respiratory rate source Observation Blood Pressure (90/60-120/80) 150/71 H Blood Pressure Mean (mm Hg) 97 Source Monitor Position Sitting Blood Pressure Location Left Forearm History Since Last Visit- (Skip if this is Patient's initial visit) Have you changed medications since your No last visit? Any new allergies or adverse reactions No Had a fall/change in ADL's that may No increase risk of falls Signs or symptoms of abuse and/or No neglect since last visit Have you been in the hospital since your No last visit? Has dressing in place as prescribed Yes Has compression in place as prescribed No Has offloadiing in place as prescribed No Experienced any changes in pain level or No management Left Footwear Surgical Shoe with pressure relief insole Right Footwear Surgical Shoe with pressure relief insole Pain Scale: 0-10 Numeric Is Patient Pain Free? Yes PHOEBE - Nurse 1 - General Ulcer Measurement Start: 11/21/23 14:57 Freq: Status: Active Protocol: Activity Type Activity Date Activity User E-sign Co-sign Detail Recorded Client Recorded Date Recorded By Document 11/21/23 14:59 DS 1 11/21/23 15:07 DS Edit Result 11/21/23 14:59 DS (1) 1 11/21/23 15:11 DS (1) Left Calf (cm) => 58.2 Left Ankle (cm) => 40.6 11/21/23 14:59 Wound Center Nurse 1 #9 L Heel -Combined with other wound No -Current Size (cm) - Length 1.1 -Current Size (cm) - Width 1.9 -Current Size (cm) - Depth 0.4 -Total Square Cm 2.09 -Tunneling No -Undermining/Tunneling No -Circular Undermining No -Wound Margin Distinct, Outline Attached -Granulation Amt Medium (34-66%) -Granulation Quality [place] -Necrosis Amt Medium (34-66%) -Necrotic Tissue Type Adherent Slough -Texture (Marva-wound Skin Appearance) Assessed -Moisture (Marva-wound Skin Appearance) Assessed -Color (Marva-wound Skin Appearance) Assessed -Temperature (Marva-wound Skin No Abnormality Appearance) (Pt Warm) -Tenderness on Palpation (Marva-wound Yes Skin Appearance) -Ulcer Cleansing Soap and Water -Anesthetic Used 5% Lidocaine Gel Left Calf (cm) 58.2 Left Ankle (cm) 40.6 WC - Nurse 2 - General Ulcer CM Notes Start: 11/21/23 14:57 Freq: Status: Active Protocol: Activity Type Activity Date Activity User E-sign Co-sign Detail Recorded Client Recorded Date Recorded By Document 11/21/23 15:29 JF 000 11/21/23 15:31 JF 11/21/23 15:29 Wound Center Nurse 2 #9 L Heel -Time 15:30 -Correct Patient Yes -Correct Side, Site, Position Yes -Correct Procedure Yes -Procedure Performed Yes -Type of Procedure Debridement -Clinical Debridement Subcutaneous -Tissue Removed Subcutaneous -Post Debridement (cm) - Length 1.1 -Post Debridement (cm) - Width 2.2 -Post Debridement (cm) - Depth 0.1 -Total Square (Post) (cm) 2.42 -Area of Debridement (cm) - Length 1.1 -Area of Debridement (cm) - Width 2.2 -Total Square (Area) (cm) 2.42 -Tunneling No -Undermining/Tunneling No -Circular Undermining No -Wound/Ulcer Outcome Not Healed -Ulcer Cleansing Rinsed/ Irrigated with Saline -Bioengineered Tissue No -Bleeding Controlled with Pressure -Treatment Response Procedure Tolerated Well -Offloading No -Debridement - Subq, 1st 20sq cm Yes Pain Scale: 0-10 Numeric Is Patient Pain Free? Yes - Nurse 3 - General Ulcer D/C NN Start: 11/21/23 14:57 Freq: Status: Active Protocol: Activity Type Activity Date Activity User E-sign Co-sign Detail Recorded Client Recorded Date Recorded By Document 11/21/23 15:42 DL 25.7 11/21/23 15:43 DL 11/21/23 15:42 Wound Care Center Nurse 3 #9 L Heel -Ulcer Cleansing Rinsed/ Irrigated with Saline -Other Dressing betadine -Primary Dressing Covered/Secured with Dry Gauze & Roll Gauze, Secured with Tape Right -Tubular Bandage Double Layer -Size of Tubigrip Used Size F -Size F ($) 2 Pain Scale: 0-10 Numeric Is Patient Pain Free? Yes WC - Visit Discharge Discharge Condition Stable Ambulatory Status Ambulatory, Crutches Transportation Private Auto Medication Reconcilliation completed & No provided to patient/care provider Clinical Summary of Care Provided Yes Assessment/Plan Assessment/Plan (1) Cellulitis: CODE(S): L03.90 - Cellulitis, unspecified QUALIFIERS: Site of cellulitis: extremity Site of cellulitis of extremity: lower extremity Laterality: left Qualified Code(s): L03.116 - Cellulitis of left lower limb PLAN: Patient was examined and evaluated. All findings were discussed with the patient. All questions were answered to the patient's satisfaction. Excisional debridement down to and including subcutaneous tissue with a number 5 mm dermal curette to the left heel without incident. Predebridement measurement is 0.9 x 2.0 x 0.1 cm. Postdebridement measurement is 1.1 x 2.2 x 0.1 cm. Left lower extremities were cleaned and patted dry. Culture was taken of the left ulceration. There does shows evidence of possible cellulitis due to the patient getting the dressing wet. Educated the patient that he will be placed on oral antibiotics Augmentin 875 twice daily for 2 weeks which she is understanding of. Prescription sent to the patient's pharmacy. 3M wrap done to left lower extremity. Followed by double Tubigrip to right lower extremity. Educated the patient that he needs to continue to rest and elevate his bilateral extremity whenever at rest which she is understanding of. Follow-up at the wound care center with Dr. Rebollar in 1 week. (2) Non-pressure chronic ulcer of left heel and midfoot with fat layer exposed: CODE(S): L97.422 - Non-pressure chronic ulcer of left heel and midfoot with fat layer exposed (3) Other specified peripheral vascular diseases: CODE(S): I73.89 - Other specified peripheral vascular diseases
[2023-11-23 10:41] VITALS: BP 131/73; PULSE 75; RESP 18; TEMP 35.4; BMI 43.6
[2023-11-28 15:18] VITALS: BP 144/79; PULSE 90; RESP 20; TEMP 35.8; BMI 43.6
--- NOTE | 2023-11-28 17:30 | PCM.WC.PN ---
History of Present Illness Date of Service: 11/28/23 Chief Complaint: Bilateral lower extremity ulcers. History of Wound: Mr. Beltran is a 68-year-old male presenting to the wound care center today from longterm facility for follow-up and evaluation of left heel ulceration. Patient was ultimately seen by an outside provider had surgical intervention and discharged to a SNF for [id number] care. Patient's wound has progressed with conservative treatment with Teena and dressing changes. He did complete oral antibiotics per infectious disease recommendation. Patient is currently living status is at the SNF and then after discharge she will be returning to his van making him homeless which he is comfortable with. He denies trauma. Denies constitutional symptoms. No other pedal complaints at this time. Subjective Subjective Mr. Beltran is a 76-year-old male presenting to wound care center today for follow-up evaluation of left heel full-thickness ulceration. Patient has been just discharged from the longterm facility is current residing in his van. Patient left his left lower extremity dressing clean dry and intact. He is taking antibiotics as written. Admits that his left heel pain has improved. Denies trauma. Denies constitutional symptoms. Other pedal complaints at this time. Objective Data Objective Data Vital Signs: Vital Signs Temp Pulse Resp BP O2 Del Method 96.5 F L 90 20 H 144/79 H Room Air 11/28/23 15:18 11/28/23 15:18 11/28/23 15:18 11/28/23 15:18 11/23/23 10:41 Oxygen Delivery Method Room Air Weight: 141.903 kg Body Mass Index (BMI) 43.6 Lab / Micro Data Micro: Microbiology 11/21/23 15:30 Wound - Heel, Left Gram Stain - Final 11/21/23 15:30 Wound - Heel, Left Wound Culture - Final Enterobacter cloacae complex Streptococcus agalactiae (B) Corynebacterium striatum 11/21/23 15:30 Wound - Heel, Left Anaerobic Culture - Final No anaerobic bacteria isolated. Physical Exam Narrative Vascular: DP and PT pulses are palpable. CFT is brisk. Nonpitting edema appreciated left lower extremity. +1 pitting edema appreciated right lower extremity. Skin temperature gradient is warm to warm from proximal ankle to distal digits. Neurological: Light touch intact. Patient response to painful stimuli. Dermatological: Evidence of full-thickness ulceration to left heel measuring 1.5 x 2.0 x 0.1 cm. Undermining has improved. Erythema has improved. Excisional debridement down to and including subcutaneous tissue with a number 5 mm dermal curette to the left heel without incident. Predebridement measurement is 1.0 x 1.8 x 0.1 cm. Postdebridement measurement is 1.5 x 2.0 x 0.1 cm. Musculoskeletal: Muscle strength 5-5 in all quadrants bilateral. Mild pain to palpation to the full-thickness ulceration left heel. No pain with calf compression. Debridement Note Debridement Note Debridement Free Text: Excisional debridement down to and including subcutaneous tissue with a number 5 mm dermal curette to the left heel without incident. Predebridement measurement is 1.0 x 1.8 x 0.1 cm. Postdebridement measurement is 1.5 x 2.0 x 0.1 cm. Post-Debridement Measurements and Additional Note: Post-Debridement Measurements/Treatment - Nurse 1 - General Ulcer Assessment Start: 11/21/23 14:57 Freq: Status: Active Protocol: WILLIAM Activity Type Activity Date Activity User E-sign Co-sign Detail Recorded Client Recorded Date Recorded By Document 11/21/23 14:57 DS 1 11/21/23 14:59 DS Document 11/23/23 10:41 DS 1 11/23/23 10:48 DS Document 11/28/23 15:18 DL [email or web address] 11/28/23 15:27 DL 11/21/23 11/23/23 11/28/23 14:57 10:41 15:18 - Today's Visit Information Type of service Follow-up Visit Nurse-only Follow-up Visit (Physician/CHAIN MAKER MACHINE Visit (Physician/CHAIN MAKER MACHINE ) ) Arrival Mode Ambulatory, Ambulatory, Ambulatory, Crutches Crutches Walker Transfer Assistance None Patient Identification Verified (Name & Yes Yes ) Patient Requires Transmission-Based No Precautions Height and Weight Body Mass Index (BMI) 43.6 43.6 43.6 BMI Classification Obese Obese Obese Vital Signs Temperature (97.8 F-99.1 F) 97.0 F L 95.7 F L 96.5 F L Temperature Source Temporal Temporal Temporal Pulse Rate (60-100) 80 75 90 Pulse Location Monitor Monitor Monitor Respiratory Rate (12-18) 18 18 20 H Respiratory rate source Observation Observation Observation Oxygen Delivery Method Room Air Blood Pressure (90/60-120/80) 150/71 H 131/73 H 144/79 H Blood Pressure Mean (mm Hg) 97 92 100 Source Monitor Monitor Monitor Position Sitting Semi-Fowlers Blood Pressure Location Left Forearm Right Arm History Since Last Visit- (Skip if this is Patient's initial visit) Have you changed medications since your No No No last visit? Any new allergies or adverse reactions No No No Had a fall/change in ADL's that may No No No increase risk of falls Signs or symptoms of abuse and/or No No No neglect since last visit Have you been in the hospital since your No No No last visit? Has dressing in place as prescribed Yes Yes Yes Has compression in place as prescribed No Yes Yes Has offloadiing in place as prescribed No Yes Yes Experienced any changes in pain level or No No No management Left Footwear Surgical Shoe Surgical Shoe Surgical Shoe with pressure with pressure with pressure relief insole relief insole relief insole Right Footwear Surgical Shoe Surgical Shoe Surgical Shoe with pressure with pressure with pressure relief insole relief insole relief insole Pain Scale: 0-10 Numeric Is Patient Pain Free? Yes Yes Yes WC - Nurse 1 - General Ulcer Measurement Start: 11/21/23 14:57 Freq: Status: Active Protocol: Activity Type Activity Date Activity User E-sign Co-sign Detail Recorded Client Recorded Date Recorded By Document 11/21/23 14:59 DS 1 11/21/23 15:07 DS Edit Result 11/21/23 14:59 DS (1) 1 11/21/23 15:11 DS Document 11/28/23 15:18 DL [email or web address] 11/28/23 15:27 DL (1) Left Calf (cm) => 58.2 Left Ankle (cm) => 40.6 11/21/23 11/28/23 14:59 15:18 Wound Center Nurse 1 #9 L Heel -Combined with other wound No -Current Size (cm) - Length 1.1 1.7 -Current Size (cm) - Width 1.9 1.7 -Current Size (cm) - Depth 0.4 0.1 -Total Square Cm 2.09 2.89 -Tunneling No -Undermining/Tunneling No -Circular Undermining No -Exudate Amt Large -Exudate Type Serosanguineous -Wound Margin Distinct, Distinct, Outline Outline Attached Attached -Granulation Amt Medium (34-66%) Medium (34-66%) -Granulation Quality [place] Red -Necrosis Amt Medium (34-66%) Medium (34-66%) -Necrotic Tissue Type Adherent Slough Adherent Slough -Structure Exposed N/A -Texture (Marva-wound Skin Appearance) Assessed Localized Edema ,Scarring -Moisture (Marva-wound Skin Appearance) Assessed Maceration -Color (Marva-wound Skin Appearance) Assessed Erythema -Temperature (Marva-wound Skin No Abnormality No Abnormality Appearance) (Pt Warm) (Pt Warm) -Tenderness on Palpation (Marva-wound Yes Yes Skin Appearance) -Ulcer Cleansing Soap and Water Soap and Water -Foul Odor after Cleansing No -Anesthetic Used 5% Lidocaine 5% Lidocaine Gel Gel Right Calf (cm) 51 Right Ankle (cm) 34.8 Left Calf (cm) 58.2 65.6 Left Ankle (cm) 40.6 37.8 WC - Nurse 2 - General Ulcer CM Notes Start: 11/21/23 14:57 Freq: Status: Active Protocol: Activity Type Activity Date Activity User E-sign Co-sign Detail Recorded Client Recorded Date Recorded By Document 11/21/23 15:29 000 11/21/23 15:31 Document 11/28/23 15:54 [facility] 11/28/23 15:57 11/21/23 11/28/23 15:29 15:54 Wound Center Nurse 2 #9 L Heel -Time 15:30 15:54 -Correct Patient Yes Yes -Correct Side, Site, Position Yes Yes -Correct Procedure Yes Yes -Procedure Performed Yes Yes -Type of Procedure Debridement Debridement -Clinical Debridement Subcutaneous Subcutaneous -Tissue Removed Subcutaneous Subcutaneous -Post Debridement (cm) - Length 1.1 1.5 -Post Debridement (cm) - Width 2.2 2.0 -Post Debridement (cm) - Depth 0.1 0.1 -Total Square (Post) (cm) 2.42 3.00 -Area of Debridement (cm) - Length 1.1 1.5 -Area of Debridement (cm) - Width 2.2 2.0 -Total Square (Area) (cm) 2.42 3.00 -Tunneling No No -Undermining/Tunneling No No -Circular Undermining No No -Wound/Ulcer Outcome Not Healed Not Healed -Ulcer Cleansing Rinsed/ Rinsed/ Irrigated with Irrigated with Saline Saline -Foul Odor after Cleansing No -Bioengineered Tissue No No -Bleeding Controlled with Pressure Pressure -Treatment Response Procedure Procedure Tolerated Well Tolerated Well -Offloading No -Debridement - Subq, 1st 20sq cm Yes Yes Pain Scale: 0-10 Numeric Is Patient Pain Free? Yes Yes - Nurse 3 - General Ulcer D/C NN Start: 11/21/23 14:57 Freq: Status: Active Protocol: Activity Type Activity Date Activity User E-sign Co-sign Detail Recorded Client Recorded Date Recorded By Document 11/21/23 15:42 DL [email or web address] 11/21/23 15:43 DL Document 11/23/23 10:41 DS 1 11/23/23 10:48 DS Document 11/28/23 16:23 KW ' 11/28/23 16:28 KW 11/21/23 11/23/23 11/28/23 15:42 10:41 16:23 Wound Care Center Nurse 3 #9 L Heel -Ulcer Cleansing Rinsed/ Irrigated with Saline -Other Dressing betadine betadine gauze betadine gauze -Primary Dressing Covered/Secured with Dry Gauze & Dry Gauze & Dry Gauze & Roll Gauze, Roll Gauze, Roll Gauze, Secured with Secured with Secured with Tape Tape Tape Right -Tubular Bandage Double Layer Double Layer -Size of Tubigrip Used Size F Size F -Size F ($) 2 2 Left -Multi-Layered Wrap Application Multi-Layer Comp - Left ($) -Tubular Bandage Double Layer -Size of Tubigrip Used Size F -Size F ($) 2 Vital Signs Temperature (97.8 F-99.1 F) 95.7 F L Temperature Source Temporal Pulse Rate (60-100) 75 Pulse Location Monitor Respiratory Rate (12-18) 18 Respiratory rate source Observation Oxygen Delivery Method Room Air Blood Pressure (90/60-120/80) 131/73 H Blood Pressure Mean (mm Hg) 92 Source Monitor Position Semi-Fowlers Blood Pressure Location Right Arm Pain Scale: 0-10 Numeric Is Patient Pain Free? Yes Yes Yes WC - Visit Discharge Discharge Condition Stable Stable Ambulatory Status Ambulatory, Ambulatory, Crutches Crutches Transportation Private Auto Private Auto Medication Reconcilliation completed & No No provided to patient/care provider Clinical Summary of Care Provided Yes Yes Assessment/Plan Assessment/Plan (1) Non-pressure chronic ulcer of left heel and midfoot with fat layer exposed: CODE(S): L97.422 - Non-pressure chronic ulcer of left heel and midfoot with fat layer exposed PLAN: Patient was examined and evaluated. All findings were discussed with the patient. All questions were answered to the patient's satisfaction. Excisional debridement down to and including subcutaneous tissue with a number 5 mm dermal curette to the left heel without incident. Predebridement measurement is 1.0 x 1.8 x 0.1 cm. Postdebridement measurement is 1.5 x 2.0 x 0.1 cm. Left lower extremities are clean and patted dry. Patient's ulceration was dressed with Betadine soaked gauze dry sterile dressing and a double layer Tubigrip to the bilateral lower extremity. Patient educated to elevate and rest his legs to help decrease his swelling which she is understanding of. Patient will continue his new antibiotic ciprofloxacin 750 mg twice daily for 2 weeks. Follow-up at the wound care center with Dr. Rebollar in 1 week. (2) Other specified peripheral vascular diseases: CODE(S): I73.89 - Other specified peripheral vascular diseases
[2023-11-30 11:21] VITALS: BP 149/75; PULSE 93; RESP 18; TEMP 35.8; BMI 43.6
[2023-12-05 14:42] VITALS: BP 146/80; PULSE 111; RESP 18; TEMP 35.6; BMI 43.6
--- NOTE | 2023-12-05 16:17 | PN.PCM_ITS ---
History of Present Illness Date of Service: 12/05/23 Chief Complaint: Bilateral lower extremity ulcers. History of Wound: Mr. Beltran is a 68-year-old male presenting [facility] the [facility] care center [facility] for follow-up and evaluation of left heel ulceration. Patient was ultimately seen by an outside provider had surgical intervention and discharged to a SNF for ilpzfg-[id number]-[id number] care. Patient's wound has progressed with conservative treatment with Teena and dressing changes. He did complete oral antibiotics per infectious disease recommendation. Patient is currently living status is at the SNF and then after discharge she will be returning to his van making him homeless which he is comfortable with. He denies trauma. Denies constitutional symptoms. No other pedal complaints at this time. Subjective Subjective Mr. Beltran is a 68-year-old male presenting to the wound care center today for follow-up evaluation of left heel full-thickness ulceration. Patient has been living in his van since signing [facility] of the [facility]. When questioned regarding the dependency issue regarding his bilateral lower extremity he states that he sits in his van for long periods of time and is not elevating his bilateral lower extremity. He is taking his antibiotic as written. He states that his leg is still swollen and not improving. He denies trauma to the left lower extremity. Denies constitutional symptoms. No other complaints at this time. Objective Data Objective Data Vital Signs: Vital Signs Temp Pulse Resp BP O2 Del Method 96.1 F L 111 H 18 146/80 H Room Air 12/05/23 14:42 12/05/23 14:42 12/05/23 14:42 12/05/23 14:42 12/05/23 14:42 Oxygen Delivery Method Room Air Weight: 141.903 kg Body Mass Index (BMI) 43.6 Lab / Micro Data Micro: Microbiology 11/21/23 15:30 Wound - Heel, Left Gram Stain - Final 11/21/23 15:30 Wound - Heel, Left Wound Culture - Final Enterobacter cloacae complex Streptococcus agalactiae (B) Corynebacterium striatum 11/21/23 15:30 Wound - Heel, Left Anaerobic Culture - Final No anaerobic bacteria isolated. Physical Exam Narrative Vascular: DP and PT pulses are palpable. CFT is brisk. Nonpitting edema appreciated left lower extremity. +1 pitting edema appreciated right lower extremity. Skin temperature gradient is warm to warm from proximal ankle to distal digits. Neurological: Light touch intact. Patient response to painful stimuli. Dermatological: Evidence of full-thickness ulceration to left heel measuring 3.2 x 3.5 x 0.1 cm. Undermining has improved. Erythema has improved. Excisional debridement down to and including subcutaneous tissue with a number 5 mm dermal curette to the left heel without incident. Predebridement measurement is 2.8 x 3.0 x 0.1 cm. Postdebridement measurement is 3.2 x 3.5 x 0.1 cm. Musculoskeletal: Muscle strength 5-5 in all quadrants bilateral. Mild pain to palpation to the full-thickness ulceration left heel. No pain with calf compression. Debridement Note Debridement Note Debridement Free Text: Excisional debridement down to and including subcutaneous tissue with a number 5 mm dermal curette to the left heel without incident. Predebridement measurement is 2.8 x 3.0 x 0.1 cm. Postdebridement measurement is 3.2 x 3.5 x 0.1 cm. Post-Debridement Measurements and Additional Note: Post-Debridement Measurements/Treatment - Nurse 1 - General Ulcer Assessment Start: 11/21/23 14:57 Freq: Status: Active Protocol: [email or web address] Activity Type Activity Date Activity User E-sign Co-sign Detail Recorded Client Recorded Date Recorded By Document 11/21/23 14:57 DS 1 11/21/23 14:59 DS Document 11/23/23 10:41 DS 1 11/23/23 10:48 DS Document 11/28/23 15:18 DL [email or web address] 11/28/23 15:27 DL Document 11/30/23 11:21 KW l 11/30/23 11:28 KW Document 12/05/23 14:42 KW d 12/05/23 14:52 KW 11/21/23 11/23/23 11/28/23 14:57 10:41 15:18 - Today's Visit Information Type of service Follow-up Visit Nurse-only Follow-up Visit (Physician/MANAGER MENTAL HEALTH Visit (Physician/MANAGER MENTAL HEALTH ) ) Arrival Mode Ambulatory, Ambulatory, Ambulatory, Crutches Crutches Walker Transfer Assistance None Patient Identification Verified (Name & Yes Yes ) Patient Requires Transmission-Based No Precautions Height and Weight Body Mass Index (BMI) 43.6 43.6 43.6 BMI Classification Obese Obese Obese Vital Signs Temperature (97.8 F-99.1 F) 97.0 F L 95.7 F L 96.5 F L Temperature Source Temporal Temporal Temporal Pulse Rate (60-100) 80 75 90 Pulse Location Monitor Monitor Monitor Respiratory Rate (12-18) 18 18 20 H Respiratory rate source Observation Observation Observation Oxygen Delivery Method Room Air Blood Pressure (90/60-120/80) 150/71 H 131/73 H 144/79 H Blood Pressure Mean (mm Hg) 97 92 100 Source Monitor Monitor Monitor Position Sitting Semi-Fowlers Blood Pressure Location Left Forearm Right Arm History Since Last Visit- (Skip if this is Patient's initial visit) Have you changed medications since your No No No last visit? Any new allergies or adverse reactions No No No Had a fall/change in ADL's that may No No No increase risk of falls Signs or symptoms of abuse and/or No No No neglect since last visit Have you been in the hospital since your No No No last visit? Has dressing in place as prescribed Yes Yes Yes Has compression in place as prescribed No Yes Yes Has offloadiing in place as prescribed No Yes Yes Experienced any changes in pain level or No No No management Left Footwear Surgical Shoe Surgical Shoe Surgical Shoe with pressure with pressure with pressure relief insole relief insole relief insole Right Footwear Surgical Shoe Surgical Shoe Surgical Shoe with pressure with pressure with pressure relief insole relief insole relief insole Pain Scale: 0-10 Numeric Is Patient Pain Free? Yes Yes Yes 11/30/23 12/05/23 11:21 14:42 WC - Today's Visit Information Type of service Nurse-only Follow-up Visit Visit (Physician/MANAGER MENTAL HEALTH ) Arrival Mode Ambulatory, Ambulatory, Crutches Crutches Transfer Assistance Patient Identification Verified (Name & Yes Yes ) Patient Requires Transmission-Based Precautions Height and Weight Body Mass Index (BMI) 43.6 43.6 BMI Classification Obese Obese Vital Signs Temperature (97.8 F-99.1 F) 96.4 F L 96.1 F L Temperature Source Temporal Temporal Pulse Rate (60-100) 93 111 H Pulse Location Monitor Monitor Respiratory Rate (12-18) 18 18 Respiratory rate source Observation Observation Oxygen Delivery Method Room Air Room Air Blood Pressure (90/60-120/80) 149/75 H 146/80 H Blood Pressure Mean (mm Hg) 99 102 Source Monitor Monitor Position Semi-Fowlers Semi-Fowlers Blood Pressure Location Left Arm Left Arm History Since Last Visit- (Skip if this is Patient's initial visit) Have you changed medications since your No No last visit? Any new allergies or adverse reactions No No Had a fall/change in ADL's that may No No increase risk of falls Signs or symptoms of abuse and/or No No neglect since last visit Have you been in the hospital since your No No last visit? Has dressing in place as prescribed Yes Yes Has compression in place as prescribed Yes No Has offloadiing in place as prescribed Yes Yes Experienced any changes in pain level or No No management Left Footwear Surgical Shoe Surgical Shoe with pressure with pressure relief insole relief insole Right Footwear Surgical Shoe Regular Shoe with pressure relief insole Pain Scale: 0-10 Numeric Is Patient Pain Free? Yes Yes WC - Nurse 1 - General Ulcer Measurement Start: 11/21/23 14:57 Freq: Status: Active Protocol: Activity Type Activity Date Activity User E-sign Co-sign Detail Recorded Client Recorded Date Recorded By Document 11/21/23 14:59 DS 1 11/21/23 15:07 DS Edit Result 11/21/23 14:59 DS (1) 1 11/21/23 15:11 DS Document 11/28/23 15:18 DL [email or web address] 11/28/23 15:27 DL Document 12/05/23 14:42 KW d 12/05/23 14:52 KW (1) Left Calf (cm) => 58.2 Left Ankle (cm) => 40.6 11/21/23 11/28/23 12/05/23 14:59 15:18 14:42 Wound Center Nurse 1 #9 L Heel -Combined with other wound No -Current Size (cm) - Length 1.1 1.7 3 -Current Size (cm) - Width 1.9 1.7 3 -Current Size (cm) - Depth 0.4 0.1 0.3 -Total Square Cm 2.09 2.89 9 -Tunneling No -Undermining/Tunneling No -Circular Undermining No -Exudate Amt Large Medium -Exudate Type Serosanguineous Serosanguineous -Wound Margin Distinct, Distinct, Distinct, Outline Outline Outline Attached Attached Attached -Granulation Amt Medium (34-66%) Medium (34-66%) Large (67-100%) -Granulation Quality [place] -Necrosis Amt Medium (34-66%) Medium (34-66%) Small (1-33%) -Necrotic Tissue Type Adherent Slough Adherent Slough -Structure Exposed N/A -Texture (Marva-wound Skin Appearance) Assessed Localized Edema Assessed ,Scarring -Moisture (Marva-wound Skin Appearance) Assessed Maceration Assessed -Color (Marva-wound Skin Appearance) Assessed Erythema Assessed -Temperature (Marva-wound Skin No Abnormality No Abnormality No Abnormality Appearance) (Pt Warm) (Pt Warm) (Pt Warm) -Tenderness on Palpation (Marva-wound Yes Yes No Skin Appearance) -Ulcer Cleansing Soap and Water Soap and Water Soap and Water -Foul Odor after Cleansing No No -Anesthetic Used 5% Lidocaine 5% Lidocaine 5% Lidocaine Gel Gel Gel Right Calf (cm) 51 Right Ankle (cm) 34.8 Left Calf (cm) 58.2 65.6 56.5 Left Ankle (cm) 40.6 37.8 39 - Nurse 2 - General Ulcer CM Notes Start: 11/21/23 14:57 Freq: Status: Active Protocol: Activity Type Activity Date Activity User E-sign Co-sign Detail Recorded Client Recorded Date Recorded By Document 11/21/23 15:29 000 11/21/23 15:31 Document 11/28/23 15:54 [facility] 11/28/23 15:57 [facility] 12/05/23 14:57 000 12/05/23 15:08 11/21/23 11/28/23 12/05/23 15:29 15:54 14:57 Wound Center Nurse 2 #9 L Heel -Time 15:30 15:54 14:57 -Correct Patient Yes Yes Yes -Correct Side, Site, Position Yes Yes Yes -Correct Procedure Yes Yes Yes -Procedure Performed Yes Yes Yes -Type of Procedure Debridement Debridement Debridement -Clinical Debridement Subcutaneous Subcutaneous Subcutaneous -Tissue Removed Subcutaneous Subcutaneous Subcutaneous -Post Debridement (cm) - Length 1.1 1.5 3.2 -Post Debridement (cm) - Width 2.2 2.0 3.5 -Post Debridement (cm) - Depth 0.1 0.1 0.1 -Total Square (Post) (cm) 2.42 3.00 11.20 -Area of Debridement (cm) - Length 1.1 1.5 3.2 -Area of Debridement (cm) - Width 2.2 2.0 3.5 -Total Square (Area) (cm) 2.42 3.00 11.20 -Tunneling No No No -Undermining/Tunneling No No No -Circular Undermining No No No -Wound/Ulcer Outcome Not Healed Not Healed Not Healed -Ulcer Cleansing Rinsed/ Rinsed/ Rinsed/ Irrigated with Irrigated with Irrigated with Saline Saline Saline -Foul Odor after Cleansing No No -Bioengineered Tissue No No No -Bleeding Controlled with Pressure Pressure Pressure -Treatment Response Procedure Procedure Procedure Tolerated Well Tolerated Well Tolerated Well -Offloading No No -Debridement - Subq, 1st 20sq cm Yes Yes Yes Pain Scale: 0-10 Numeric Is Patient Pain Free? Yes Yes Yes WC - Nurse 3 - General Ulcer D/C NN Start: 11/21/23 14:57 Freq: Status: Active Protocol: Activity Type Activity Date Activity User E-sign Co-sign Detail Recorded Client Recorded Date Recorded By Document 11/21/23 15:42 DL [email or web address] 11/21/23 15:43 DL Edit Result 11/21/23 15:42 DL (1) 0000 12/04/23 14:23 JF Document 11/23/23 10:41 DS 1 11/23/23 10:48 DS Document 11/28/23 16:23 KW ' 11/28/23 16:28 KW Document 11/30/23 11:21 KW l 11/30/23 11:28 KW Document 12/05/23 15:22 KW d 12/05/23 15:22 KW (1) Left - Multi-Layered Wrap Application => Multi-Layer Comp - => Left ($) 11/21/23 11/23/23 11/28/23 15:42 10:41 16:23 Wound Care Center Nurse 3 #9 L Heel -Ulcer Cleansing Rinsed/ Irrigated with Saline -Other Dressing betadine betadine gauze betadine gauze -Primary Dressing Covered/Secured with Dry Gauze & Dry Gauze & Dry Gauze & Roll Gauze, Roll Gauze, Roll Gauze, Secured with Secured with Secured with Tape Tape Tape Right -Tubular Bandage Double Layer Double Layer -Size of Tubigrip Used Size F Size F -Size F ($) 2 2 Left -Multi-Layered Wrap Application Multi-Layer Multi-Layer Comp - Left ($) Comp - Left ($) -Tubular Bandage Double Layer -Size of Tubigrip Used Size F -Size F ($) 2 Vital Signs Temperature (97.8 F-99.1 F) 95.7 F L Temperature Source Temporal Pulse Rate (60-100) 75 Pulse Location Monitor Respiratory Rate (12-18) 18 Respiratory rate source Observation Oxygen Delivery Method Room Air Blood Pressure (90/60-120/80) 131/73 H Blood Pressure Mean (mm Hg) 92 Source Monitor Position Semi-Fowlers Blood Pressure Location Right Arm Pain Scale: 0-10 Numeric Is Patient Pain Free? Yes Yes Yes WC - Visit Discharge Discharge Condition Stable Stable Ambulatory Status Ambulatory, Ambulatory, Crutches Crutches Transportation Private Auto Private Auto Medication Reconcilliation completed & No No provided to patient/care provider Clinical Summary of Care Provided Yes Yes 11/30/23 12/05/23 11:21 15:22 Wound Care Center Nurse 3 #9 L Heel -Ulcer Cleansing -Other Dressing BETADINE SOAKED BETADINE GAUZE GAUZE -Primary Dressing Covered/Secured with Dry Gauze & Dry Gauze & Roll Gauze, Roll Gauze, Secured with Secured with Tape Tape Right -Tubular Bandage Double Layer Double Layer -Size of Tubigrip Used Size F Size F -Size F ($) 2 2 Left -Multi-Layered Wrap Application Multi-Layer Comp - Left ($) -Tubular Bandage Double Layer -Size of Tubigrip Used Size F -Size F ($) 2 Vital Signs Temperature (97.8 F-99.1 F) 96.4 F L Temperature Source Temporal Pulse Rate (60-100) 93 Pulse Location Monitor Respiratory Rate (12-18) 18 Respiratory rate source Observation Oxygen Delivery Method Room Air Blood Pressure (90/60-120/80) 149/75 H Blood Pressure Mean (mm Hg) 99 Source Monitor Position Semi-Fowlers Blood Pressure Location Left Arm Pain Scale: 0-10 Numeric Is Patient Pain Free? Yes Yes WC - Visit Discharge Discharge Condition Stable Stable Ambulatory Status Ambulatory, Ambulatory, Crutches Crutches Transportation Private Auto Private Auto Medication Reconcilliation completed & No No provided to patient/care provider Clinical Summary of Care Provided Yes Yes Assessment/Plan Assessment/Plan (1) Non-pressure chronic ulcer of left heel and midfoot with fat layer exposed: CODE(S): L97.422 - Non-pressure chronic ulcer of left heel and midfoot with fat layer exposed PLAN: Patient was examined and evaluated. All findings were discussed with the patient. All questions were answered to the patient's satisfaction. Excisional debridement down to and including subcutaneous tissue with a number 5 mm dermal curette to the left heel without incident. Predebridement measurement is 2.8 x 3.0 x 0.1 cm. Postdebridement measurement is 3.2 x 3.5 x 0.1 cm. Left lower extremities were cleaned and patted dry. The ulceration was dressed with Betadine soaked gauze dry sterile dressing and a 3M wrap was donned to left lower extremity. The right lower extremity was dressed with double or Tubigrip. It was stressed and educated the patient that he needs to clean out his van so that he may lay down and elevate his bilateral lower extremity whenever at rest which she was really understanding of. Educated the patient that he cannot live on a fast food diet as that is unhealthy and has way too much salt causing him to swell which she was also understanding of. After discussion with the patient about his living condition patient has agreed to try to find a place to live with a friend or family member and understands the need to get off his feet and elevate so that he can heal his left heel wound as he has been taking many steps backwards per his words. It was also discussed with the patient that if he is not improving he will be admitted to the hospital for IV antibiotics surgical intervention and SNF placement. Patient will continue his Cipro and begin taking Augmentin due to his prolonged strep infection. Follow-up at the wound care center with Dr. Rebollar in 1 week. (2) Other specified peripheral vascular diseases: CODE(S): I73.89 - Other specified peripheral vascular diseases (3) Cellulitis: CODE(S): L03.90 - Cellulitis, unspecified QUALIFIERS: Site of cellulitis: extremity Site of cellulitis of extremity: lower extremity Laterality: left Qualified Code(s): L03.116 - Cellulitis of left lower limb
[2023-12-07 11:22] VITALS: BP 135/69; PULSE 90; RESP 18; TEMP 36.5; BMI 43.6
[2023-12-10 11:27] VITALS: BP 130/73; PULSE 89; RESP 20; TEMP 36.4; BMI 43.6
--- NOTE | 2023-12-10 12:00 | WC ---
NURSE VISIT FOR [facility]YA CHG AT THIS TIME. WOUND APPEARS TO BE WORSENING DESPITE ANTIBIOTIC USE. NOTED WITH ^ REDNESS AND SWELLING TO L FOOT, HEEL, ANKLE AND LOWER LEG. DR CHÁVEZ UPDATED BY PHONE. SPOKE W/ NURSING AND PATIENT. REQUESTED PT GO TO ER, PT REFUSING AT THIS TIME AND WANTS TO CON'T WITH PREVIOUSLY SCHEDULED ROUTINE VISIT THIS WEEK ON 12/12/23.
[2023-12-12 14:47] VITALS: BP 156/69; PULSE 107; RESP 18; TEMP 35.8; BMI 43.6
--- NOTE | 2023-12-12 15:44 | PN.PCM_ITS ---
History of Present Illness Date of Service: 12/12/23 Chief Complaint: Bilateral lower extremity ulcers. History of Wound: Mr. Beltran is a 68-year-old male presenting to the wound care center today from long term facility for follow-up and evaluation of left heel ulceration. Patient was ultimately seen by an outside provider had surgical intervention and discharged to a SNF for [id number] care. Patient's wound has progressed with conservative treatment with Teena and dressing changes. He did complete oral antibiotics per infectious disease recommendation. Patient is currently living status is at the SNF and then after discharge she will be returning to his van making him homeless which he is comfortable with. He denies trauma. Denies constitutional symptoms. No other pedal complaints at this time. Subjective Subjective Mr. Beltran is a 68-year-old male presented wound care center today for follow-up evaluation in his car. He is having difficulty elevating his legs. He is putting weight on his left heel as he knows he is not supposed to. He does state that he uses crutches now to help prevent weightbearing to the left lower extremity. He has 2 days of his dual antibiotics left. Denies trauma. Denies constitutional symptoms. No other pedal complaints at this time. Objective Data Objective Data Vital Signs: Vital Signs Temp Pulse Resp BP O2 Del Method 96.4 F L 107 H 18 156/69 H Room Air 12/12/23 14:47 12/12/23 14:47 12/12/23 14:47 12/12/23 14:47 12/12/23 14:47 Oxygen Delivery Method Room Air Weight: 141.903 kg Body Mass Index (BMI) 43.6 Lab / Micro Data Micro: Microbiology 11/21/23 15:30 Wound - Heel, Left Gram Stain - Final 11/21/23 15:30 Wound - Heel, Left Wound Culture - Final Enterobacter cloacae complex Streptococcus agalactiae (B) Corynebacterium striatum 11/21/23 15:30 Wound - Heel, Left Anaerobic Culture - Final No anaerobic bacteria isolated. Physical Exam Narrative Vascular: DP and PT pulses are palpable. CFT is brisk. Nonpitting edema appreciated left lower extremity. +1 pitting edema appreciated right lower extremity. Skin temperature gradient is warm to warm from proximal ankle to distal digits. Neurological: Light touch intact. Patient response to painful stimuli. Dermatological: Evidence of full-thickness ulceration to left heel measuring 3.2 x 4.5 x 0.1 cm. Undermining noted. Evidence of maceration secondary to serous drainage. Excisional debridement down to and including subcutaneous tissue with a number 5 mm dermal curette to the left heel without incident. Predebridement measurement is 3.0 x 4.0 x 0.1 cm. Postdebridement measurement is 3.2 x 4.5 x 0.1 cm. Musculoskeletal: Muscle strength 5-5 in all quadrants bilateral. Mild pain to palpation to the full-thickness ulceration left heel. No pain with calf compression. Debridement Note Debridement Note Debridement Free Text: Excisional debridement down to and including subcutaneous tissue with a number 5 mm dermal curette to the left heel without incident. Predebridement measurement is 3.0 x 4.0 x 0.1 cm. Postdebridement measurement is 3.2 x 4.5 x 0.1 cm. Post-Debridement Measurements and Additional Note: Post-Debridement Measurements/Treatment WC - Nurse 1 - General Ulcer Assessment Start: 11/21/23 14:57 Freq: Status: Active Protocol: WILLIAM Activity Type Activity Date Activity User E-sign Co-sign Detail Recorded Client Recorded Date Recorded By Document 11/21/23 14:57 DS 1 11/21/23 14:59 DS Document 11/23/23 10:41 DS 1 11/23/23 10:48 DS Document 11/28/23 15:18 DL [email or web address] 11/28/23 15:27 DL Document 11/30/23 11:21 KW l 11/30/23 11:28 KW Document 12/05/23 14:42 KW d 12/05/23 14:52 KW Document 12/07/23 11:22 DS 1 12/07/23 11:23 DS Document 12/10/23 11:27 DL [email or web address] 12/10/23 12:03 DL Document 12/12/23 14:47 KW j 12/12/23 15:00 KW Edit Result 12/12/23 14:47 KW (1) [facility] 12/12/23 15:03 KW (1) Temperature (97.8 F-99.1 F) => 96.4 F L Pulse Rate (60-100) => 107 H Blood Pressure (90/60-120/80) => 156/69 H Blood Pressure Mean (mm Hg) => 98 11/21/23 11/23/23 11/28/23 14:57 10:41 15:18 WC - Today's Visit Information Type of service Follow-up Visit Nurse-only Follow-up Visit (Physician/TANBARK PEELER Visit (Physician/TANBARK PEELER ) ) Arrival Mode Ambulatory, Ambulatory, Ambulatory, Crutches Crutches Walker Transfer Assistance None Patient Identification Verified (Name & Yes Yes ) Patient Requires Transmission-Based No Precautions Height and Weight Body Mass Index (BMI) 43.6 43.6 43.6 BMI Classification Obese Obese Obese Vital Signs Temperature (97.8 F-99.1 F) 97.0 F L 95.7 F L 96.5 F L Temperature Source Temporal Temporal Temporal Pulse Rate (60-100) 80 75 90 Pulse Location Monitor Monitor Monitor Respiratory Rate (12-18) 18 18 20 H Respiratory rate source Observation Observation Observation Oxygen Delivery Method Room Air Blood Pressure (90/60-120/80) 150/71 H 131/73 H 144/79 H Blood Pressure Mean (mm Hg) 97 92 100 Source Monitor Monitor Monitor Position Sitting Semi-Fowlers Blood Pressure Location Left Forearm Right Arm History Since Last Visit- (Skip if this is Patient's initial visit) Have you changed medications since your No No No last visit? Any new allergies or adverse reactions No No No Had a fall/change in ADL's that may No No No increase risk of falls Signs or symptoms of abuse and/or No No No neglect since last visit Have you been in the hospital since your No No No last visit? Has dressing in place as prescribed Yes Yes Yes Has compression in place as prescribed No Yes Yes Has offloadiing in place as prescribed No Yes Yes Experienced any changes in pain level or No No No management Left Footwear Surgical Shoe Surgical Shoe Surgical Shoe with pressure with pressure with pressure relief insole relief insole relief insole Right Footwear Surgical Shoe Surgical Shoe Surgical Shoe with pressure with pressure with pressure relief insole relief insole relief insole Pain Scale: 0-10 Numeric Is Patient Pain Free? Yes Yes Yes 11/30/23 12/05/23 12/07/23 11:21 14:42 11:22 WC - Today's Visit Information Type of service Nurse-only Follow-up Visit Nurse-only Visit (Physician/TANBARK PEELER Visit ) Arrival Mode Ambulatory, Ambulatory, Ambulatory, Crutches Crutches Crutches Transfer Assistance Patient Identification Verified (Name & Yes Yes ) Patient Requires Transmission-Based Precautions Height and Weight Body Mass Index (BMI) 43.6 43.6 43.6 BMI Classification Obese Obese Obese Vital Signs Temperature (97.8 F-99.1 F) 96.4 F L 96.1 F L 97.7 F L Temperature Source Temporal Temporal Temporal Pulse Rate (60-100) 93 111 H 90 Pulse Location Monitor Monitor Monitor Respiratory Rate (12-18) 18 18 18 Respiratory rate source Observation Observation Observation Oxygen Delivery Method Room Air Room Air Room Air Blood Pressure (90/60-120/80) 149/75 H 146/80 H 135/69 H Blood Pressure Mean (mm Hg) 99 102 91 Source Monitor Monitor Monitor Position Semi-Fowlers Semi-Fowlers Sitting Blood Pressure Location Left Arm Left Arm Left Arm History Since Last Visit- (Skip if this is Patient's initial visit) Have you changed medications since your No No last visit? Any new allergies or adverse reactions No No Had a fall/change in ADL's that may No No increase risk of falls Signs or symptoms of abuse and/or No No neglect since last visit Have you been in the hospital since your No No last visit? Has dressing in place as prescribed Yes Yes Has compression in place as prescribed Yes No Has offloadiing in place as prescribed Yes Yes Experienced any changes in pain level or No No management Left Footwear Surgical Shoe Surgical Shoe with pressure with pressure relief insole relief insole Right Footwear Surgical Shoe Regular Shoe with pressure relief insole Pain Scale: 0-10 Numeric Is Patient Pain Free? Yes Yes Yes 12/10/23 12/12/23 11:27 14:47 WC - Today's Visit Information Type of service Nurse-only Follow-up Visit Visit (Physician/TANBARK PEELER ) Arrival Mode Ambulatory, Ambulatory, Crutches Crutches Transfer Assistance None Patient Identification Verified (Name & Yes Yes ) Patient Requires Transmission-Based No Precautions Height and Weight Body Mass Index (BMI) 43.6 43.6 BMI Classification Obese Obese Vital Signs Temperature (97.8 F-99.1 F) 97.5 F L 96.4 F L Temperature Source Temporal Temporal Pulse Rate (60-100) 89 107 H Pulse Location Monitor Monitor Respiratory Rate (12-18) 20 H 18 Respiratory rate source Observation Observation Oxygen Delivery Method Room Air Blood Pressure (90/60-120/80) 130/73 H 156/69 H Blood Pressure Mean (mm Hg) 92 98 Source Monitor Monitor Position Semi-Fowlers Blood Pressure Location Left Forearm History Since Last Visit- (Skip if this is Patient's initial visit) Have you changed medications since your No No last visit? Any new allergies or adverse reactions No No Had a fall/change in ADL's that may No No increase risk of falls Signs or symptoms of abuse and/or No No neglect since last visit Have you been in the hospital since your No last visit? Has dressing in place as prescribed Yes Yes Has compression in place as prescribed Yes Yes Has offloadiing in place as prescribed N/A Yes Experienced any changes in pain level or No No management Left Footwear Surgical Shoe with pressure relief insole Right Footwear Surgical Shoe with pressure relief insole Pain Scale: 0-10 Numeric Is Patient Pain Free? Yes Yes WC - Nurse 1 - General Ulcer Measurement Start: 11/21/23 14:57 Freq: Status: Active Protocol: Activity Type Activity Date Activity User E-sign Co-sign Detail Recorded Client Recorded Date Recorded By Document 11/21/23 14:59 DS 1 11/21/23 15:07 DS Edit Result 11/21/23 14:59 DS (1) 1 11/21/23 15:11 DS Document 11/28/23 15:18 DL [email or web address] 11/28/23 15:27 DL Document 12/05/23 14:42 KW d 12/05/23 14:52 KW Document 12/07/23 11:23 DS 1 12/07/23 11:56 DS Document 12/10/23 11:27 DL [email or web address] 12/10/23 12:03 DL Document 12/12/23 14:47 KW hkj 12/12/23 15:00 KW (1) Left Calf (cm) => 58.2 Left Ankle (cm) => 40.6 11/21/23 11/28/23 12/05/23 14:59 15:18 14:42 Wound Center Nurse 1 #9 L Heel -Combined with other wound No -Current Size (cm) - Length 1.1 1.7 3 -Current Size (cm) - Width 1.9 1.7 3 -Current Size (cm) - Depth 0.4 0.1 0.3 -Total Square Cm 2.09 2.89 9 -Date of Last Picture (Recall this field) -Tunneling No -Undermining/Tunneling No -Circular Undermining No -Exudate Amt Large Medium -Exudate Type Serosanguineous Serosanguineous -Wound Margin Distinct, Distinct, Distinct, Outline Outline Outline Attached Attached Attached -Granulation Amt Medium (34-66%) Medium (34-66%) Large (67-100%) -Granulation Quality [place] -Necrosis Amt Medium (34-66%) Medium (34-66%) Small (1-33%) -Necrotic Tissue Type Adherent Slough Adherent Slough -Structure Exposed N/A -Texture (Marva-wound Skin Appearance) Assessed Localized Edema Assessed ,Scarring -Moisture (Marva-wound Skin Appearance) Assessed Maceration Assessed -Color (Marva-wound Skin Appearance) Assessed Erythema Assessed -Temperature (Mrava-wound Skin No Abnormality No Abnormality No Abnormality Appearance) (Pt Warm) (Pt Warm) (Pt Warm) -Tenderness on Palpation (Marva-wound Yes Yes No Skin Appearance) -Ulcer Cleansing Soap and Water Soap and Water Soap and Water -Foul Odor after Cleansing No No -Anesthetic Used 5% Lidocaine 5% Lidocaine 5% Lidocaine Gel Gel Gel -Wound Comment(s) Right Calf (cm) 51 Right Ankle (cm) 34.8 Left Calf (cm) 58.2 65.6 56.5 Left Ankle (cm) 40.6 37.8 39 12/07/23 12/10/23 12/12/23 11:23 11:27 14:47 Wound Center Nurse 1 #9 L Heel -Combined with other wound -Current Size (cm) - Length 7 -Current Size (cm) - Width 4.1 -Current Size (cm) - Depth 5 -Total Square Cm 28.7 -Date of Last Picture (Recall this 12/12/23 field) -Tunneling -Undermining/Tunneling -Circular Undermining -Exudate Amt Large Large -Exudate Type Serosanguineous Serosanguineous -Wound Margin Distinct, Distinct, Outline Outline Attached Attached -Granulation Amt Small (1-33%) Medium (34-66%) -Granulation Quality Red Red -Necrosis Amt Large (67-100%) Medium (34-66%) -Necrotic Tissue Type Adherent Slough Eschar -Structure Exposed -Texture (Marva-wound Skin Appearance) Localized Edema Assessed, ,Scarring Localized Edema -Moisture (Marva-wound Skin Appearance) Maceration Assessed, Maceration -Color (Marva-wound Skin Appearance) Erythema, Assessed, Hemosiderin Erythema Staining -Temperature (Marva-wound Skin No Abnormality No Abnormality No Abnormality Appearance) (Pt Warm) (Pt Warm) (Pt Warm) -Tenderness on Palpation (Marva-wound Yes No No Skin Appearance) -Ulcer Cleansing Soap and Water Soap and Water Soap and Water -Foul Odor after Cleansing No No -Anesthetic Used 5% Lidocaine Gel -Wound Comment(s) Wound Bleeding, stopped with pressure. odor noted, Leg appears more swollen and red today, warm to the touch. Dr. Rebollar face timed with pt. Pt strongly advised per Dr. Rebollar to go to ER. Pt refusing at present, wants to wait till his F/U on sunday. Right Calf (cm) Right Ankle (cm) Left Calf (cm) 52.8 51.5 Left Ankle (cm) 37.5 36.5 WC - Nurse 2 - General Ulcer CM Notes Start: 11/21/23 14:57 Freq: Status: Active Protocol: Activity Type Activity Date Activity User E-sign Co-sign Detail Recorded Client Recorded Date Recorded By Document 11/21/23 15:29 000 11/21/23 15:31 Document 11/28/23 15:54 [facility] 11/28/23 15:57 Document 12/05/23 14:57 000 12/05/23 15:08 Document 12/12/23 15:12 0000 12/12/23 15:17 Edit Result 12/12/23 15:12 (1) 0000 12/12/23 15:24 (1) #9 L Heel - Time => 15:23 - Correct Patient No => Yes - Correct Side, Site, Position No => Yes - Correct Procedure No => Yes - Procedure Performed No => Yes - Type of Procedure => Debridement - Clinical Debridement => Subcutaneous - Tissue Removed => Subcutaneous - Post Debridement (cm) - Length => 3.2 - Post Debridement (cm) - Width => 4.5 - Post Debridement (cm) - Depth => 0.1 - Total Square (Post) (cm) => 14.40 - Area of Debridement (cm) - Length => 3.2 - Area of Debridement (cm) - Width => 4.5 - Total Square (Area) (cm) => 14.40 - Tunneling => No - Undermining/Tunneling => No - Circular Undermining => No - Ulcer Cleansing => Rinsed/Irrigated => with Saline - Foul Odor after Cleansing => No - Bioengineered Tissue => No - Bleeding Controlled with => Pressure - Treatment Response => Procedure => Tolerated Well - Offloading => Yes - Type of Offloading => Surgical Shoe - Debridement - Subq, 20sq cm No => Yes 11/21/23 11/28/23 12/05/23 15:29 15:54 14:57 Wound Center Nurse 2 #9 L Heel -Time 15:30 15:54 14:57 -Correct Patient Yes Yes Yes -Correct Side, Site, Position Yes Yes Yes -Correct Procedure Yes Yes Yes -Procedure Performed Yes Yes Yes -Type of Procedure Debridement Debridement Debridement -Clinical Debridement Subcutaneous Subcutaneous Subcutaneous -Tissue Removed Subcutaneous Subcutaneous Subcutaneous -Post Debridement (cm) - Length 1.1 1.5 3.2 -Post Debridement (cm) - Width 2.2 2.0 3.5 -Post Debridement (cm) - Depth 0.1 0.1 0.1 -Total Square (Post) (cm) 2.42 3.00 11.20 -Area of Debridement (cm) - Length 1.1 1.5 3.2 -Area of Debridement (cm) - Width 2.2 2.0 3.5 -Total Square (Area) (cm) 2.42 3.00 11.20 -Tunneling No No No -Undermining/Tunneling No No No -Circular Undermining No No No -Wound/Ulcer Outcome Not Healed Not Healed Not Healed -Ulcer Cleansing Rinsed/ Rinsed/ Rinsed/ Irrigated with Irrigated with Irrigated with Saline Saline Saline -Foul Odor after Cleansing No No -Bioengineered Tissue No No No -Bleeding Controlled with Pressure Pressure Pressure -Treatment Response Procedure Procedure Procedure Tolerated Well Tolerated Well Tolerated Well -Offloading No No -Type of Offloading -Debridement - Subq, 1st 20sq cm Yes Yes Yes Pain Scale: 0-10 Numeric Is Patient Pain Free? Yes Yes Yes 12/12/23 15:12 Wound Center Nurse 2 #9 L Heel -Time 15:23 -Correct Patient Yes -Correct Side, Site, Position Yes -Correct Procedure Yes -Procedure Performed Yes -Type of Procedure Debridement -Clinical Debridement Subcutaneous -Tissue Removed Subcutaneous -Post Debridement (cm) - Length 3.2 -Post Debridement (cm) - Width 4.5 -Post Debridement (cm) - Depth 0.1 -Total Square (Post) (cm) 14.40 -Area of Debridement (cm) - Length 3.2 -Area of Debridement (cm) - Width 4.5 -Total Square (Area) (cm) 14.40 -Tunneling No -Undermining/Tunneling No -Circular Undermining No -Wound/Ulcer Outcome Not Healed -Ulcer Cleansing Rinsed/ Irrigated with Saline -Foul Odor after Cleansing No -Bioengineered Tissue No -Bleeding Controlled with Pressure -Treatment Response Procedure Tolerated Well -Offloading Yes -Type of Offloading Surgical Shoe -Debridement - Subq, 1st 20sq cm Yes Pain Scale: 0-10 Numeric Is Patient Pain Free? Yes - Nurse 3 - General Ulcer D/C NN Start: 11/21/23 14:57 Freq: Status: Active Protocol: Activity Type Activity Date Activity User E-sign Co-sign Detail Recorded Client Recorded Date Recorded By Document 11/21/23 15:42 DL [email or web address] 11/21/23 15:43 DL Edit Result 11/21/23 15:42 DL (1) 0000 12/04/23 14:23 JF Document 11/23/23 10:41 DS 1 11/23/23 10:48 DS Document 11/28/23 16:23 KW ' 11/28/23 16:28 KW Document 11/30/23 11:21 KW l 11/30/23 11:28 KW Document 12/05/23 15:22 KW d 12/05/23 15:22 KW Document 12/07/23 11:23 DS 1 12/07/23 11:56 DS Document 12/10/23 11:27 DL [email or web address] 12/10/23 12:03 DL Document 12/12/23 15:34 CP 12/12/23 15:35 CP Edit Result 12/12/23 15:34 CP (2) 12/12/23 15:37 CP (1) Left - Multi-Layered Wrap Application => Multi-Layer Comp - => Left ($) (2) Right - Tubular Bandage => Double Layer - Size of Tubigrip Used => Size F - Size F ($) => 2 11/21/23 11/23/23 11/28/23 15:42 10:41 16:23 Wound Care Center Nurse 3 #9 L Heel -Ulcer Cleansing Rinsed/ Irrigated with Saline -Other Dressing betadine betadine gauze betadine gauze -Primary Dressing Covered/Secured with Dry Gauze & Dry Gauze & Dry Gauze & Roll Gauze, Roll Gauze, Roll Gauze, Secured with Secured with Secured with Tape Tape Tape Right -Tubular Bandage Double Layer Double Layer -Size of Tubigrip Used Size F Size F -Size F ($) 2 2 Left -Multi-Layered Wrap Application Multi-Layer Multi-Layer Comp - Left ($) Comp - Left ($) -Tubular Bandage Double Layer -Size of Tubigrip Used Size F -Size F ($) 2 -Other Treatment Response Vital Signs Temperature (97.8 F-99.1 F) 95.7 F L Temperature Source Temporal Pulse Rate (60-100) 75 Pulse Location Monitor Respiratory Rate (12-18) 18 Respiratory rate source Observation Oxygen Delivery Method Room Air Blood Pressure (90/60-120/80) 131/73 H Blood Pressure Mean (mm Hg) 92 Source Monitor Position Semi-Fowlers Blood Pressure Location Right Arm Pain Scale: 0-10 Numeric Is Patient Pain Free? Yes Yes Yes WC - Visit Discharge Discharge Condition Stable Stable Ambulatory Status Ambulatory, Ambulatory, Crutches Crutches Transportation Private Auto Private Auto Medication Reconcilliation completed & No No provided to patient/care provider Clinical Summary of Care Provided Yes Yes 11/30/23 12/05/23 12/07/23 11:21 15:22 11:23 Wound Care Center Nurse 3 #9 L Heel -Ulcer Cleansing Soap and Water -Other Dressing BETADINE SOAKED BETADINE GAUZE betaine GAUZE -Primary Dressing Covered/Secured with Dry Gauze & Dry Gauze & Dry Gauze & Roll Gauze, Roll Gauze, Roll Gauze, Secured with Secured with Secured with Tape Tape Tape Right -Tubular Bandage Double Layer Double Layer -Size of Tubigrip Used Size F Size F -Size F ($) 2 2 Left -Multi-Layered Wrap Application Multi-Layer Multi-Layer Comp - Left ($) Comp - Left ($) -Tubular Bandage Double Layer -Size of Tubigrip Used Size F -Size F ($) 2 -Other pt 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 Yes Yes Yes WC - Visit Discharge Discharge Condition Stable Stable Stable Ambulatory Status Ambulatory, Ambulatory, Ambulatory, Crutches Crutches Crutches Transportation Private Auto Private Auto Private Auto Medication Reconcilliation completed & No No Yes provided to patient/care provider Clinical Summary of Care Provided Yes Yes Yes 12/10/23 12/12/23 11:27 15:34 Wound Care Center Nurse 3 #9 L Heel -Ulcer Cleansing betadine -Other Dressing -Primary Dressing Covered/Secured with Dry Gauze & Roll Gauze Right -Tubular Bandage Double Layer -Size of Tubigrip Used Size F -Size F ($) 2 Left -Multi-Layered Wrap Application Multi-Layer Multi-Layer Comp - Left ($) Comp - Left ($) -Tubular Bandage -Size of Tubigrip Used -Size F ($) -Other Treatment Response Procedure Procedure Tolerated Well Tolerated Well Vital Signs Temperature (97.8 F-99.1 F) 97.5 F L Temperature Source Temporal Pulse Rate (60-100) 89 Pulse Location Monitor Respiratory Rate (12-18) 20 H Respiratory rate source Observation Oxygen Delivery Method Blood Pressure (90/60-120/80) 130/73 H Blood Pressure Mean (mm Hg) 92 Source Monitor Position Blood Pressure Location Pain Scale: 0-10 Numeric Is Patient Pain Free? Yes Yes WC - Visit Discharge Discharge Condition Stable Stable Ambulatory Status Ambulatory, Ambulatory, Crutches Crutches Transportation Private Auto Private Auto Medication Reconcilliation completed & provided to patient/care provider Clinical Summary of Care Provided Yes Assessment/Plan Assessment/Plan (1) Non-pressure chronic ulcer of left heel and midfoot with fat layer exposed: CODE(S): L97.422 - Non-pressure chronic ulcer of left heel and midfoot with fat layer exposed PLAN: Patient was examined and evaluated. All findings were discussed with the patient. All questions were answered to the patient's satisfaction. Excisional debridement down to and including subcutaneous tissue with a number 5 mm dermal curette to the left heel without incident. Predebridement measurement is 3.0 x 4.0 x 0.1 cm. Postdebridement measurement is 3.2 x 4.5 x 0.1 cm. Left lower extremities were cleaned and patted dry. Betadine soaked gauze followed by 3M compression wrap was donned to the left lower extremity. Offloading pad was placed for the heel in the patient's surgical shoe. He will continue to use crutches for minimal to no weightbearing to left lower extremity. Patient will be given a extra week of Cipro 750 mg to be taken twice daily. It was educated the patient that I would recommend him presenting to the emergency room for admission for IV antibiotics and surgical intervention with SNF placement on Sunday due to the ability for the patient to be in a safe environment while his wound is healing. Patient states that he will think about it. Follow-up at the wound care center with Dr. Rebollar in 1 week. (2) Other specified peripheral vascular diseases: CODE(S): I73.89 - Other specified peripheral vascular diseases
--- NOTE | 2023-12-14 09:42 | WC ---
PHOTO 12/12/23 LEFT HEEL
--- NOTE | 2023-12-14 09:45 | WC ---
PHOTO 12/12/23 LEFT HEEL
== END 2023-12-12 23:59 | disposition home or self-care (01) ==
LOC: WC 14:45
PROVIDERS: Referring Provider Podiatrist; Visit Provider Podiatrist Foot & Ankle Surgery
DX: I73.89 Other specified peripheral vascular diseases (principal); L97.422 Non-pressure chronic ulcer of left heel and midfoot with fat layer exposed; M79.672 Pain in left foot; Z59.01 Sheltered homelessness; L03.116 Cellulitis of left lower limb
CPT/HCPCS: 11042; 29581; 87070; 87075; 87077; 87101; 87186; 87205; 99212; 99213; G0463

== ENCOUNTER 2024-01-09 13:30 | Outpatient (RCR) | payer MEDICARE, MEDICAID, SELFPAY ==
[2023-12-13 00:42] VITALS: BP 150/86; PULSE 86; RESP 20; TEMP 36.3; BMI 43.6
[2023-12-14 11:12] VITALS: BP 150/50; PULSE 90; RESP 18; TEMP 35.2; BMI 43.6
[2023-12-19 15:12] VITALS: BP 138/73; PULSE 98; RESP 18; TEMP 36.4; BMI 43.6
--- NOTE | 2023-12-19 16:42 | PCM.WC.PN ---
History of Present Illness Date of Service: 12/19/23 Chief Complaint: Bilateral lower extremity ulcers. History of Wound: Mr. Beltran is a 68-year-old male presenting to the wound care center today from long-term facility for follow-up and evaluation of left heel ulceration. Patient was ultimately seen by an outside provider had surgical intervention and discharged to a SNF for liyddd-yyy-jypta care. Patient's wound has progressed with conservative treatment with Teena and dressing changes. He did complete oral antibiotics per infectious disease recommendation. Patient is currently living status is at the SNF and then after discharge she will be returning to his van making him homeless which he is comfortable with. He denies trauma. Denies constitutional symptoms. No other pedal complaints at this time. Subjective Subjective Mr. Beltran is a 68-year-old male patient will consider today for follow-up evaluation of left heel wound. Patient states that he has been elevating his vital lower extremity. He is taking his oral antibiotic as written. He admits to minimal to no pain to the left heel associated with some weightbearing. He continues to be nonweightbearing with crutches. Denies trauma. Denies constitutional symptoms. No other pedal complaints at this time. Objective Data Objective Data Vital Signs: Vital Signs Temp Pulse Resp BP O2 Del Method 97.5 F L 98 18 138/73 H Room Air 12/19/23 15:12 12/19/23 15:12 12/19/23 15:12 12/19/23 15:12 12/14/23 11:12 Oxygen Delivery Method Room Air Weight: 141.903 kg Body Mass Index (BMI) 43.6 Physical Exam Narrative Vascular: DP and PT pulses are palpable. CFT is brisk. Nonpitting edema appreciated left lower extremity. +1 pitting edema appreciated right lower extremity. Skin temperature gradient is warm to warm from proximal ankle to distal digits. Neurological: Light touch intact. Patient response to painful stimuli. Dermatological: Evidence of full-thickness ulceration to left heel measuring 5.0 x 5.2 x 0.1 cm. Undermining noted. Evidence of maceration secondary to serous drainage. Excisional debridement down to and including subcutaneous tissue with a number 5 mm dermal curette to the left heel without incident. Predebridement measurement is 4.8 x 5.0 x 0.1 cm. Postdebridement measurement is 5.0 x 5.2 x 0.1 cm. Musculoskeletal: Muscle strength 5-5 in all quadrants bilateral. Mild pain to palpation to the full-thickness ulceration left heel. No pain with calf compression. Debridement Note Debridement Note Debridement Free Text: Excisional debridement down to and including subcutaneous tissue with a number 5 mm dermal curette to the left heel without incident. Predebridement measurement is 4.8 x 5.0 x 0.1 cm. Postdebridement measurement is 5.0 x 5.2 x 0.1 cm. 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 ) Arrival Mode Ambulatory, Ambulatory, Crutches Crutches Transfer Assistance None Patient Identification Verified (Name & Yes Yes ) Patient Requires Transmission-Based No Precautions Height and Weight Body Mass Index (BMI) 43.6 43.6 BMI Classification Obese Obese Vital Signs Temperature (97.8 F-99.1 F) 95.4 F L 97.5 F L Temperature Source Temporal Temporal Pulse Rate (60-100) 90 98 Pulse Location Monitor Monitor Respiratory Rate (12-18) 18 18 Respiratory rate source Observation Observation Oxygen Delivery Method Room Air Blood Pressure (90/60-120/80) 150/50 H 138/73 H Blood Pressure Mean (mm Hg) 83 94 Source Monitor Monitor Position Semi-Fowlers Blood Pressure Location Left Arm History Since Last Visit- (Skip if this is Patient's initial visit) Have you changed medications since your No No last visit? Any new allergies or adverse reactions No No Had a fall/change in ADL's that may No No increase risk of falls Signs or symptoms of abuse and/or No No neglect since last visit Have you been in the hospital since your No No last visit? Has dressing in place as prescribed Yes Yes Has compression in place as prescribed Yes Yes Has offloadiing in place as prescribed Yes Yes Experienced any changes in pain level or No No management Left Footwear Surgical Shoe Surgical Shoe with pressure with pressure relief insole relief insole Right Footwear Regular Shoe Surgical Shoe with pressure relief insole Pain Scale: 0-10 Numeric Is Patient Pain Free? Yes Yes - Nurse 1 - General Ulcer Measurement Start: 12/14/23 11:12 Freq: Status: Active Protocol: Activity Type Activity Date Activity User E-sign Co-sign Detail Recorded Client Recorded Date Recorded By Document 12/19/23 15:12 DL [id number] 12/19/23 15:20 DL 12/19/23 15:12 Wound Center Nurse 1 #9 L Heel -Current Size (cm) - Length 5 -Current Size (cm) - Width 4.5 -Current Size (cm) - Depth 0.2 -Total Square Cm 22.5 -Photo Taken Yes -Exudate Amt Large -Exudate Type Sanguineous -Wound Margin Distinct, Outline Attached -Granulation Amt Medium (34-66%) -Granulation Quality Red -Necrosis Amt Medium (34-66%) -Necrotic Tissue Type Adherent Slough -Structure Exposed N/A -Texture (Marva-wound Skin Appearance) Localized Edema ,Scarring -Moisture (Marva-wound Skin Appearance) Maceration -Color (Marva-wound Skin Appearance) Erythema, Hemosiderin Staining -Temperature (Marva-wound Skin No Abnormality Appearance) (Pt Warm) -Tenderness on Palpation (Marva-wound No Skin Appearance) -Ulcer Cleansing Soap and Water -Foul Odor after Cleansing No -Anesthetic Used 4% Lidocaine Solution Left Calf (cm) 54 Left Ankle (cm) 34.5 - Nurse 2 - General Ulcer CM Notes Start: 12/14/23 11:12 Freq: Status: Active Protocol: Activity Type Activity Date Activity User E-sign Co-sign Detail Recorded Client Recorded Date Recorded By Document 12/19/23 15:39 JF 000 12/19/23 15:44 JF 12/19/23 15:39 Wound Center Nurse 2 #9 L Heel -Time 15:40 -Correct Patient Yes -Correct Side, Site, Position Yes -Correct Procedure Yes -Procedure Performed Yes -Type of Procedure Debridement -Clinical Debridement Subcutaneous -Tissue Removed Subcutaneous -Post Debridement (cm) - Length 5.0 -Post Debridement (cm) - Width 5.2 -Post Debridement (cm) - Depth 0.3 -Total Square (Post) (cm) 26.00 -Area of Debridement (cm) - Length 5.0 -Area of Debridement (cm) - Width 5.2 -Total Square (Area) (cm) 26.00 -Tunneling No -Undermining/Tunneling No -Circular Undermining No -Wound/Ulcer Outcome Not Healed -Ulcer Cleansing Rinsed/ Irrigated with Saline -Foul Odor after Cleansing No -Bioengineered Tissue No -Bleeding Controlled with Pressure -Treatment Response Procedure Tolerated Well -Offloading No -Debridement - Subq, 1st 20sq cm Yes -Debridement, SubQ, ea addt'l 20sq cm 1 or part thereof Pain Scale: 0-10 Numeric Is Patient Pain Free? Yes WC - Nurse 3 - General Ulcer D/C NN Start: 12/14/23 11:12 Freq: Status: Active Protocol: Activity Type Activity Date Activity User E-sign Co-sign Detail Recorded Client Recorded Date Recorded By Document 12/14/23 11:12 KW bgj 12/14/23 11:25 KW Document 12/19/23 16:09 DL lk 12/19/23 16:10 DL 12/14/23 12/19/23 11:12 16:09 Vital Signs Temperature (97.8 F-99.1 F) 95.4 F L Temperature Source Temporal Pulse Rate (60-100) 90 Pulse Location Monitor Respiratory Rate (12-18) 18 Respiratory rate source Observation Oxygen Delivery Method Room Air Blood Pressure (90/60-120/80) 150/50 H Blood Pressure Mean (mm Hg) 83 Source Monitor Position Semi-Fowlers Blood Pressure Location Left Arm Pain Scale: 0-10 Numeric Is Patient Pain Free? Yes Yes Wound Care Center Nurse 3 #9 L Heel -Ulcer Cleansing Soap and Water Soap and Water -Foul Odor after Cleansing No -Primary Dressing Applied Optilok 6.5x10 Optilok 6.5x10 -Other Dressing BETADINE betadine -Primary Dressing Covered/Secured with Dry Gauze & Dry Gauze & Roll Gauze, Roll Gauze, Secured with Secured with Tape Tape -Optilok 6.5x10 1 1 Right -Tubular Bandage Double Layer Double Layer -Size of Tubigrip Used Size F Size E -Size E ($) 2 -Size F ($) 2 Left -Multi-Layered Wrap Application Multi-Layer Multi-Layer Comp - Left ($) Comp - Left ($) Treatment Response Procedure Tolerated Well WC - Visit Discharge Discharge Condition Stable Stable Ambulatory Status Ambulatory, Ambulatory, Crutches Crutches Transportation Private Auto Private Auto Medication Reconcilliation completed & No provided to patient/care provider Clinical Summary of Care Provided Yes Notes: PT STILL SHOWING REDNESS ON LEG AND LAT ANKLE. STILL IS ADVISED TO GO TO EMERGENCY ROOM Assessment/Plan Assessment/Plan (1) Non-pressure chronic ulcer of left heel and midfoot with fat layer exposed: CODE(S): L97.422 - Non-pressure chronic ulcer of left heel and midfoot with fat layer exposed PLAN: Patient was examined and evaluated. All findings were discussed with the patient. All questions were answered to the patient's satisfaction. Excisional debridement down to and including subcutaneous tissue with a number 5 mm dermal curette to the left heel without incident. Predebridement measurement is 4.8 x 5.0 x 0.1 cm. Postdebridement measurement is 5.0 x 5.2 x 0.1 cm. Left lower extremity is likely dependent dry. The ulceration was dressed with Betadine soaked gauze, superabsorber and a 3M multilayer compression bandage was donned to left extremity. Patient instructed to leave the bandage clean dry and intact. He will follow-up Sunday for dressing change. It was greatly educated as well as encouraged to the patient that he needs to be nonweightbearing to the left heel and continue to elevate whenever at rest. Educated the patient that he is at great risk for getting bone infection in his heel and will need further surgery which he does not want to have. We will say that the patient's wound is stable at this time. Follow-up at the wound care center with Dr. Rebollar in 1 week. (2) Other specified peripheral vascular diseases: CODE(S): I73.89 - Other specified peripheral vascular diseases
[2023-12-21 09:57] VITALS: BP 128/74; PULSE 89; RESP 18; TEMP 36.2; BMI 43.6
[2023-12-26 11:22] VITALS: BP 152/90; PULSE 53; RESP 18; TEMP 35.8; BMI 43.6
--- NOTE | 2023-12-26 15:43 | PN.PCM_ITS ---
History of Present Illness Date of Service: 12/26/23 Chief Complaint: Bilateral lower extremity ulcers. History of Wound: Mr. Beltran is a 68-year-old male presenting to the wound care center today from detention facility for follow-up and evaluation of left heel ulceration. Patient was ultimately seen by an outside provider had surgical intervention and discharged to a SNF for [id number] care. Patient's wound has progressed with conservative treatment with Teena and dressing changes. He did complete oral antibiotics per infectious disease recommendation. Patient is currently living status is at the SNF and then after discharge she will be returning to his van making him homeless which he is comfortable with. He denies trauma. Denies constitutional symptoms. No other pedal complaints at this time. Subjective Subjective Mr. Beltran is a 68-year-old male patient will consider today for follow-up evaluation of left heel wound. Patient has finished his antibiotics. He has been compliant with his dressing and elevation. He does admit to keeping the 3M multilayer compression bandage longer than needed. He admits to some drainage. He denies trauma. Denies constitutional symptoms. No other pedal complaints at this time. Objective Data Objective Data Vital Signs: Vital Signs Temp Pulse Resp BP O2 Del Method 96.5 F L 53 L 18 152/90 H Room Air 12/26/23 11:22 12/26/23 11:22 12/26/23 11:22 12/26/23 11:22 12/26/23 11:22 Oxygen Delivery Method Room Air Weight: 141.903 kg Body Mass Index (BMI) 43.6 Physical Exam Narrative Vascular: DP and PT pulses are palpable. CFT is brisk. Nonpitting edema appreciated left lower extremity. +1 pitting edema appreciated right lower extremity. Skin temperature gradient is warm to warm from proximal ankle to distal digits. Neurological: Light touch intact. Patient response to painful stimuli. Dermatological: Evidence of full-thickness ulceration to left heel measuring 4.5 x 4.9 x 0.2 cm. Undermining noted. Evidence of maceration secondary to serous drainage. Excisional debridement down to and including subcutaneous tissue with a number 5 mm dermal curette to the left heel without incident. Predebridement measurement is 4.3 x 4.8 x 0.1 cm. Postdebridement measurement is 4.5 x 4.9 x 0.2 cm. Musculoskeletal: Muscle strength 5-5 in all quadrants bilateral. Mild pain to palpation to the full-thickness ulceration left heel. No pain with calf compression. Debridement Note Debridement Note Debridement Free Text: Excisional debridement down to and including subcutaneous tissue with a number 5 mm dermal curette to the left heel without incident. Predebridement measurement is 4.3 x 4.8 x 0.1 cm. Postdebridement measurement is 4.5 x 4.9 x 0.2 cm. Post-Debridement Measurements and Additional Note: Post-Debridement Measurements/Treatment - Nurse 1 - General Ulcer Assessment Start: 12/14/23 11:12 Freq: Status: Active Protocol: WC.LOWEXT Activity Type Activity Date Activity User E-sign Co-sign Detail Recorded Client Recorded Date Recorded By Document 12/14/23 11:12 KW bgj 12/14/23 11:25 KW Document 12/19/23 15:12 DL [email or web address] 12/19/23 15:20 DL Document 12/21/23 09:57 KW ; 12/21/23 09:59 KW Document 12/26/23 11:22 KW asfd 12/26/23 11:32 KW 12/14/23 12/19/23 12/21/23 11:12 15:12 09:57 - Today's Visit Information Type of service Nurse-only Follow-up Visit Nurse-only Visit (Physician/[employer] Visit ) Arrival Mode Ambulatory, Ambulatory, Ambulatory, Crutches Crutches Crutches Transfer Assistance None Patient Identification Verified (Name & Yes Yes Yes ) Patient Requires Transmission-Based No Precautions Height and Weight Body Mass Index (BMI) 43.6 43.6 43.6 BMI Classification Obese Obese Obese Vital Signs Temperature (97.8 F-99.1 F) 95.4 F L 97.5 F L 97.1 F L Temperature Source Temporal Temporal Temporal Pulse Rate (60-100) 90 98 89 Pulse Location Monitor Monitor Monitor Respiratory Rate (12-18) 18 18 18 Respiratory rate source Observation Observation Observation Oxygen Delivery Method Room Air Room Air Blood Pressure (90/60-120/80) 150/50 H 138/73 H 128/74 H Blood Pressure Mean (mm Hg) 83 94 92 Source Monitor Monitor Monitor Position Semi-Fowlers Semi-Fowlers Blood Pressure Location Left Arm Left Arm History Since Last Visit- (Skip if this is Patient's initial visit) Have you changed medications since your No No No last visit? Any new allergies or adverse reactions No No No Had a fall/change in ADL's that may No No No increase risk of falls Signs or symptoms of abuse and/or No No No neglect since last visit Have you been in the hospital since your No No No last visit? Has dressing in place as prescribed Yes Yes Yes Has compression in place as prescribed Yes Yes Yes Has offloadiing in place as prescribed Yes Yes N/A Experienced any changes in pain level or No No No management Left Footwear Surgical Shoe Surgical Shoe Surgical Shoe with pressure with pressure with pressure relief insole relief insole relief insole Right Footwear Regular Shoe Surgical Shoe Surgical Shoe with pressure with pressure relief insole relief insole Pain Scale: 0-10 Numeric Is Patient Pain Free? Yes Yes Yes 12/26/23 11:22 - Today's Visit Information Type of service Follow-up Visit (Physician/[employer] ) Arrival Mode Ambulatory, Crutches Transfer Assistance Patient Identification Verified (Name & Yes ) Patient Requires Transmission-Based Precautions Height and Weight Body Mass Index (BMI) 43.6 BMI Classification Obese Vital Signs Temperature (97.8 F-99.1 F) 96.5 F L Temperature Source Temporal Pulse Rate (60-100) 53 L Pulse Location Monitor Respiratory Rate (12-18) 18 Respiratory rate source Observation Oxygen Delivery Method Room Air Blood Pressure (90/60-120/80) 152/90 H Blood Pressure Mean (mm Hg) 110 Source Monitor Position Semi-Fowlers Blood Pressure Location Left Arm History Since Last Visit- (Skip if this is Patient's initial visit) Have you changed medications since your No last visit? Any new allergies or adverse reactions No Had a fall/change in ADL's that may No increase risk of falls Signs or symptoms of abuse and/or No neglect since last visit Have you been in the hospital since your No last visit? Has dressing in place as prescribed Yes Has compression in place as prescribed Yes Has offloadiing in place as prescribed Yes Experienced any changes in pain level or No management Left Footwear Surgical Shoe with pressure relief insole Right Footwear Surgical Shoe with pressure relief insole Pain Scale: 0-10 Numeric Is Patient Pain Free? Yes - Nurse 1 - General Ulcer Measurement Start: 12/14/23 11:12 Freq: Status: Active Protocol: Activity Type Activity Date Activity User E-sign Co-sign Detail Recorded Client Recorded Date Recorded By Document 12/19/23 15:12 DL [email or web address] 12/19/23 15:20 DL Document 12/26/23 11:22 KW asfd 12/26/23 11:32 KW 12/19/23 12/26/23 15:12 11:22 Wound Center Nurse 1 #9 L Heel -Current Size (cm) - Length 5 4.9 -Current Size (cm) - Width 4.5 4.5 -Current Size (cm) - Depth 0.2 1 -Total Square Cm 22.5 22.05 -Photo Taken Yes -Exudate Amt Large Large -Exudate Type Sanguineous Serosanguineous -Wound Margin Distinct, Distinct, Outline Outline Attached Attached -Granulation Amt Medium (34-66%) Medium (34-66%) -Granulation Quality Red Red -Necrosis Amt Medium (34-66%) Medium (34-66%) -Necrotic Tissue Type Adherent Slough Adherent Slough -Structure Exposed N/A -Texture (Marva-wound Skin Appearance) Localized Edema Assessed ,Scarring -Moisture (Marva-wound Skin Appearance) Maceration Assessed, Maceration -Color (Marva-wound Skin Appearance) Erythema, Assessed Hemosiderin Staining -Temperature (Marva-wound Skin No Abnormality No Abnormality Appearance) (Pt Warm) (Pt Warm) -Tenderness on Palpation (Marva-wound No No Skin Appearance) -Ulcer Cleansing Soap and Water Soap and Water -Foul Odor after Cleansing No No -Anesthetic Used 4% Lidocaine 5% Lidocaine Solution Gel Left Calf (cm) 54 Left Ankle (cm) 34.5 WC - Nurse 2 - General Ulcer CM Notes Start: 12/14/23 11:12 Freq: Status: Active Protocol: Activity Type Activity Date Activity User E-sign Co-sign Detail Recorded Client Recorded Date Recorded By Document 12/19/23 15:39 JF 000 12/19/23 15:44 JF Document 12/26/23 11:36 JF 0000 12/26/23 11:39 JF 12/19/23 12/26/23 15:39 11:36 Wound Center Nurse 2 #9 L Heel -Time 15:40 11:37 -Correct Patient Yes Yes -Correct Side, Site, Position Yes Yes -Correct Procedure Yes Yes -Procedure Performed Yes Yes -Type of Procedure Debridement Debridement -Clinical Debridement Subcutaneous Subcutaneous -Tissue Removed Subcutaneous Subcutaneous -Post Debridement (cm) - Length 5.0 4.5 -Post Debridement (cm) - Width 5.2 4.9 -Post Debridement (cm) - Depth 0.3 0.2 -Total Square (Post) (cm) 26.00 22.05 -Area of Debridement (cm) - Length 5.0 4.5 -Area of Debridement (cm) - Width 5.2 4.9 -Total Square (Area) (cm) 26.00 22.05 -Tunneling No No -Undermining/Tunneling No No -Circular Undermining No No -Wound/Ulcer Outcome Not Healed Not Healed -Ulcer Cleansing Rinsed/ Rinsed/ Irrigated with Irrigated with Saline Saline -Foul Odor after Cleansing No No -Bioengineered Tissue No No -Bleeding Controlled with Pressure Pressure -Treatment Response Procedure Procedure Tolerated Well Tolerated Well -Offloading No No -Debridement - Subq, 1st 20sq cm Yes Yes -Debridement, SubQ, ea addt'l 20sq cm 1 1 or part thereof Pain Scale: 0-10 Numeric Is Patient Pain Free? Yes Yes WC - Nurse 3 - General Ulcer D/C NN Start: 12/14/23 11:12 Freq: Status: Active Protocol: Activity Type Activity Date Activity User E-sign Co-sign Detail Recorded Client Recorded Date Recorded By Document 12/14/23 11:12 KW bgj 12/14/23 11:25 KW Document 12/19/23 16:09 DL lk 12/19/23 16:10 DL Document 12/21/23 09:57 KW ; 12/21/23 09:59 KW Document 12/26/23 11:45 KW asfd 12/26/23 11:46 KW 12/14/23 12/19/23 12/21/23 11:12 16:09 09:57 Vital Signs Temperature (97.8 F-99.1 F) 95.4 F L 97.1 F L Temperature Source Temporal Temporal Pulse Rate (60-100) 90 89 Pulse Location Monitor Monitor Respiratory Rate (12-18) 18 18 Respiratory rate source Observation Observation Oxygen Delivery Method Room Air Room Air Blood Pressure (90/60-120/80) 150/50 H 128/74 H Blood Pressure Mean (mm Hg) 83 92 Source Monitor Monitor Position Semi-Fowlers Semi-Fowlers Blood Pressure Location Left Arm Left Arm Pain Scale: 0-10 Numeric Is Patient Pain Free? Yes Yes Yes Wound Care Center Nurse 3 #9 L Heel -Ulcer Cleansing Soap and Water Soap and Water Soap and Water -Foul Odor after Cleansing No -Primary Dressing Applied Optilok 6.5x10 Optilok 6.5x10 Optilok 6.5x10 -Other Dressing BETADINE betadine betadine -Primary Dressing Covered/Secured with Dry Gauze & Dry Gauze & Dry Gauze & Roll Gauze, Roll Gauze, Roll Gauze, Secured with Secured with Secured with Tape Tape Tape -Optilok 6.5x10 1 1 1 Right -Lotion applied to leg before compression wrap -Multi-Layered Wrap Application -Tubular Bandage Double Layer Double Layer Double Layer -Size of Tubigrip Used Size F Size E Size F -Size E ($) 2 -Size F ($) 2 2 Left -Lotion applied to leg before compression wrap -Multi-Layered Wrap Application Multi-Layer Multi-Layer Multi-Layer Comp - Left ($) Comp - Left ($) Comp - Left ($) -Tubular Bandage -Size of Tubigrip Used -Size F ($) Treatment Response Procedure Tolerated Well WC - Visit Discharge Discharge Condition Stable Stable Stable Ambulatory Status Ambulatory, Ambulatory, Ambulatory, Crutches Crutches Crutches Transportation Private Auto Private Auto Private Auto Medication Reconcilliation completed & No No provided to patient/care provider Clinical Summary of Care Provided Yes Yes Notes: PT STILL SHOWING REDNESS ON LEG AND LAT ANKLE. STILL IS ADVISED TO GO TO EMERGENCY ROOM 12/26/23 11:45 Vital Signs Temperature (97.8 F-99.1 F) Temperature Source Pulse Rate (60-100) Pulse Location Respiratory Rate (12-18) Respiratory rate source Oxygen Delivery Method Blood Pressure (90/60-120/80) Blood Pressure Mean (mm Hg) Source Position Blood Pressure Location Pain Scale: 0-10 Numeric Is Patient Pain Free? Yes Wound Care Center Nurse 3 #9 L Heel -Ulcer Cleansing Rinsed/ Irrigated with Saline -Foul Odor after Cleansing -Primary Dressing Applied -Other Dressing betadine -Primary Dressing Covered/Secured with Dry Gauze & Roll Gauze, Secured with Tape -Optilok 6.5x10 Right -Lotion applied to leg before Yes compression wrap -Multi-Layered Wrap Application Multi-Layer Comp - Right ($ ) -Tubular Bandage -Size of Tubigrip Used -Size E ($) -Size F ($) Left -Lotion applied to leg before Yes compression wrap -Multi-Layered Wrap Application -Tubular Bandage Double Layer -Size of Tubigrip Used Size F -Size F ($) 2 Treatment Response WC - Visit Discharge Discharge Condition Stable Ambulatory Status Ambulatory, Crutches Transportation Private Auto Medication Reconcilliation completed & No provided to patient/care provider Clinical Summary of Care Provided Yes Notes: Assessment/Plan Assessment/Plan (1) Non-pressure chronic ulcer of left heel and midfoot with fat layer exposed: CODE(S): L97.422 - Non-pressure chronic ulcer of left heel and midfoot with fat layer exposed PLAN: Patient was examined and evaluated. All findings were discussed with the patient. All questions were answered to the patient's satisfaction. Excisional debridement down to and including subcutaneous tissue with a number 5 mm dermal curette to the left heel without incident. Predebridement measurement is 4.3 x 4.8 x 0.1 cm. Postdebridement measurement is 4.5 x 4.9 x 0.2 cm. Left lower extremity were cleaned and patted dry. The left heel was dressed with Betadine soaked gauze, dry sterile dressing and double layer 3M wrap was applied. Patient will continue to rest and elevate his bilateral lower extremity. Educated the patient that if he is concern for worsening infection he is to report to the emergency room since she is currently living in his van as a residence. He was understanding of this. He will continue to increase his protein and decrease his weightbearing to left heel to optimize healing. Follow-up at the wound care center with Dr. Rebollar in 1 week. (2) Other specified peripheral vascular diseases: CODE(S): I73.89 - Other specified peripheral vascular diseases
[2023-12-31 14:01] VITALS: BP 150/97; PULSE 99; RESP 18; TEMP 35.7; BMI 43.6
[2024-01-02 11:38] VITALS: BP 138/73; PULSE 55; RESP 16; TEMP 35.9; BMI 43.6
--- NOTE | 2024-01-02 13:02 | PN.PCM_ITS ---
History of Present Illness Date of Service: 01/02/24 Chief Complaint: Bilateral lower extremity ulcers. History of Wound: Mr. Beltran is a 68-year-old male presenting to the wound care center today from [facility] for follow-up and evaluation of left heel ulceration. Patient was ultimately seen by an outside provider had surgical intervention and discharged to a SNF for [id number] care. Patient's wound has progressed with conservative treatment with Teena and dressing changes. He did complete oral antibiotics per infectious disease recommendation. Patient is currently living status is at the SNF and then after discharge she will be returning to his van making him homeless which he is comfortable with. He denies trauma. Denies constitutional symptoms. No other pedal complaints at this time. Subjective Subjective Mr. Beltran is a 68-year-old male presented wound care center today for follow-up evaluation of left heel ulceration. Patient has left his pression wraps clean dry and intact. He is elevating more as instructed. He is improving his diet. He admits improving the pain to the left foot. Denies trauma. Denies constitutional symptoms. No other pedal complaints at this time. Objective Data Objective Data Vital Signs: Vital Signs Temp Pulse Resp BP O2 Del Method 96.6 F L 55 L 16 138/73 H Room Air 01/02/24 11:38 01/02/24 11:38 01/02/24 11:38 01/02/24 11:38 12/31/23 14:01 Oxygen Delivery Method Room Air Weight: 141.903 kg Body Mass Index (BMI) 43.6 Physical Exam Narrative Vascular: DP and PT pulses are palpable. CFT is brisk. Nonpitting edema appreciated left lower extremity. +1 pitting edema appreciated right lower extremity. Skin temperature gradient is warm to warm from proximal ankle to distal digits. Neurological: Light touch intact. Patient response to painful stimuli. Dermatological: Evidence of full-thickness ulceration to left heel measuring 4.5 x 4.0 x 0.6 cm. Undermining noted. Evidence of maceration secondary to serous drainage. Excisional debridement down to and including subcutaneous tissue with a number 5 mm dermal curette to the left heel without incident. Predebridement measurement is 4.4 x 3.8 x 0.2 cm. Postdebridement measurement is 4.5 x 4.0 x 0.6 cm. Musculoskeletal: Muscle strength 5-5 in all quadrants bilateral. Mild pain to palpation to the full-thickness ulceration left heel. No pain with calf compre ssion. Debridement Note Debridement Note Debridement Free Text: Excisional debridement down to and including subcutaneous tissue with a number 5 mm dermal curette to the left heel without incident. Predebridement measurement is 4.4 x 3.8 x 0.2 cm. Postdebridement measurement is 4.5 x 4.0 x 0.6 cm. Post-Debridement Measurements and Additional Note: Post-Debridement Measurements/Treatment - Nurse 1 - General Ulcer Assessment Start: 12/14/23 11:12 Freq: Status: Active Protocol: WC.LOWEXT Activity Type Activity Date Activity User E-sign Co-sign Detail Recorded Client Recorded Date Recorded By Document 12/14/23 11:12 KW bgj 12/14/23 11:25 KW Document 12/19/23 15:12 DL [id number] 12/19/23 15:20 DL Document 12/21/23 09:57 KW ; 12/21/23 09:59 KW Document 12/26/23 11:22 KW asfd 12/26/23 11:32 KW Document 12/31/23 14:01 KW [id number] 12/31/23 14:26 KW Document 01/02/24 11:38 CP [id number] 01/02/24 11:41 CP 12/14/23 12/19/23 12/21/23 11:12 15:12 09:57 - Today's Visit Information Type of service Nurse-only Follow-up Visit Nurse-only Visit (Physician/INTERFACE DESIGNER Visit ) Arrival Mode Ambulatory, Ambulatory, Ambulatory, Crutches Crutches Crutches Transfer Assistance None Patient Identification Verified (Name & Yes Yes Yes ) Patient Requires Transmission-Based No Precautions Height and Weight Body Mass Index (BMI) 43.6 43.6 43.6 BMI Classification Obese Obese Obese Vital Signs Temperature (97.8 F-99.1 F) 95.4 F L 97.5 F L 97.1 F L Temperature Source Temporal Temporal Temporal Pulse Rate (60-100) 90 98 89 Pulse Location Monitor Monitor Monitor Respiratory Rate (12-18) 18 18 18 Respiratory rate source Observation Observation Observation Oxygen Delivery Method Room Air Room Air Blood Pressure (90/60-120/80) 150/50 H 138/73 H 128/74 H Blood Pressure Mean (mm Hg) 83 94 92 Source Monitor Monitor Monitor Position Semi-Fowlers Semi-Fowlers Blood Pressure Location Left Arm Left Arm History Since Last Visit- (Skip if this is Patient's initial visit) Have you changed medications since your No No No last visit? Any new allergies or adverse reactions No No No Had a fall/change in ADL's that may No No No increase risk of falls Signs or symptoms of abuse and/or No No No neglect since last visit Have you been in the hospital since your No No No last visit? Has dressing in place as prescribed Yes Yes Yes Has compression in place as prescribed Yes Yes Yes Has offloadiing in place as prescribed Yes Yes N/A Experienced any changes in pain level or No No No management Left Footwear Surgical Shoe Surgical Shoe Surgical Shoe with pressure with pressure with pressure relief insole relief insole relief insole Right Footwear Regular Shoe Surgical Shoe Surgical Shoe with pressure with pressure relief insole relief insole Pain Scale: 0-10 Numeric Is Patient Pain Free? Yes Yes Yes L heel -Description -Duration (hours) -Pain Behavior -Pain Aggravating Factors -Alleviating Factors/Interventions -Effectiveness of Alleviating Factor/ Intervention 12/26/23 12/31/23 01/02/24 11:22 14:01 11:38 WC - Today's Visit Information Type of service Follow-up Visit Nurse-only Follow-up Visit (Physician/INTERFACE DESIGNER Visit (Physician/INTERFACE DESIGNER ) ) Arrival Mode Ambulatory, Ambulatory, Ambulatory, Crutches Crutches Crutches Transfer Assistance Patient Identification Verified (Name & Yes Yes Yes ) Patient Requires Transmission-Based No Precautions Height and Weight Body Mass Index (BMI) 43.6 43.6 43.6 BMI Classification Obese Obese Obese Vital Signs Temperature (97.8 F-99.1 F) 96.5 F L 96.3 F L 96.6 F L Temperature Source Temporal Temporal Temporal Pulse Rate (60-100) 53 L 99 55 L Pulse Location Monitor Monitor Monitor Respiratory Rate (12-18) 18 18 16 Respiratory rate source Observation Monitor Observation Oxygen Delivery Method Room Air Room Air Blood Pressure (90/60-120/80) 152/90 H 150/97 H 138/73 H Blood Pressure Mean (mm Hg) 110 114 94 Source Monitor Monitor Monitor Position Semi-Fowlers Sitting Sitting Blood Pressure Location Left Arm Right Arm Right Arm History Since Last Visit- (Skip if this is Patient's initial visit) Have you changed medications since your No No No last visit? Any new allergies or adverse reactions No No No Had a fall/change in ADL's that may No No No increase risk of falls Signs or symptoms of abuse and/or No No neglect since last visit Have you been in the hospital since your No No No last visit? Has dressing in place as prescribed Yes Yes Yes Has compression in place as prescribed Yes Yes Yes Has offloadiing in place as prescribed Yes Yes Experienced any changes in pain level or No No management Left Footwear Surgical Shoe Surgical Shoe with pressure with pressure relief insole relief insole Right Footwear Surgical Shoe Surgical Shoe with pressure with pressure relief insole relief insole Pain Scale: 0-10 Numeric Is Patient Pain Free? Yes Yes No L heel -Description Sharp -Duration (hours) Chronic -Pain Behavior Guarding -Pain Aggravating Factors Debridement -Alleviating Factors/Interventions Medication, Distraction -Effectiveness of Alleviating Factor/ Moderately Intervention effective WC - Nurse 1 - General Ulcer Measurement Start: 12/14/23 11:12 Freq: Status: Active Protocol: Activity Type Activity Date Activity User E-sign Co-sign Detail Recorded Client Recorded Date Recorded By Document 12/19/23 15:12 DL [email or web address] 12/19/23 15:20 DL Document 12/26/23 11:22 KW asfd 12/26/23 11:32 KW Document 01/02/24 11:38 CP [id number] 01/02/24 11:41 CP 12/19/23 12/26/23 01/02/24 15:12 11:22 11:38 Wound Center Nurse 1 #9 L Heel -Current Size (cm) - Length 5 4.9 4.2 -Current Size (cm) - Width 4.5 4.5 4.5 -Current Size (cm) - Depth 0.2 1 0.5 -Total Square Cm 22.5 22.05 18.90 -Date of Last Picture (Recall this 01/02/24 field) -Photo Taken Yes Yes -Undermining/Tunneling No -Exudate Amt Large Large Small -Exudate Type Sanguineous Serosanguineous Serosanguineous -Wound Margin Distinct, Distinct, Flat & Intact Outline Outline Attached Attached -Granulation Amt Medium (34-66%) Medium (34-66%) Medium (34-66%) -Granulation Quality Red Red Red -Slough/Fibrin Yes -Necrosis Amt Medium (34-66%) Medium (34-66%) Medium (34-66%) -Necrotic Tissue Type Adherent Slough Adherent Slough Adherent Slough -Structure Exposed N/A -Texture (Marva-wound Skin Appearance) Localized Edema Assessed No Abnormality ,Scarring -Moisture (Marva-wound Skin Appearance) Maceration Assessed, No Abnormality Maceration -Color (Marva-wound Skin Appearance) Erythema, Assessed No Abnormality Hemosiderin Staining -Temperature (Marva-wound Skin No Abnormality No Abnormality No Abnormality Appearance) (Pt Warm) (Pt Warm) (Pt Warm) -Tenderness on Palpation (Marva-wound No No Skin Appearance) -Ulcer Cleansing Soap and Water Soap and Water Soap and Water -Foul Odor after Cleansing No No No -Anesthetic Used 4% Lidocaine 5% Lidocaine 5% Lidocaine Solution Gel Gel Left Calf (cm) 54 46 Left Ankle (cm) 34.5 33 WC - Nurse 2 - General Ulcer CM Notes Start: 12/14/23 11:12 Freq: Status: Active Protocol: Activity Type Activity Date Activity User E-sign Co-sign Detail Recorded Client Recorded Date Recorded By Document 12/19/23 15:39 000 12/19/23 15:44 Document 12/26/23 11:36 0000 12/26/23 11:39 Document 01/02/24 11:56 [id number] 01/02/24 12:00 12/19/23 12/26/23 01/02/24 15:39 11:36 11:56 Wound Center Nurse 2 #9 L Heel -Time 15:40 11:37 11:56 -Correct Patient Yes Yes Yes -Correct Side, Site, Position Yes Yes Yes -Correct Procedure Yes Yes Yes -Procedure Performed Yes Yes Yes -Type of Procedure Debridement Debridement Debridement -Clinical Debridement Subcutaneous Subcutaneous Subcutaneous -Tissue Removed Subcutaneous Subcutaneous Subcutaneous -Post Debridement (cm) - Length 5.0 4.5 4.5 -Post Debridement (cm) - Width 5.2 4.9 4.0 -Post Debridement (cm) - Depth 0.3 0.2 1.4 -Total Square (Post) (cm) 26.00 22.05 18.00 -Area of Debridement (cm) - Length 5.0 4.5 4.5 -Area of Debridement (cm) - Width 5.2 4.9 4.0 -Total Square (Area) (cm) 26.00 22.05 18.00 -Tunneling No No No -Undermining/Tunneling No No No -Circular Undermining No No No -Wound/Ulcer Outcome Not Healed Not Healed Not Healed -Ulcer Cleansing Rinsed/ Rinsed/ Rinsed/ Irrigated with Irrigated with Irrigated with Saline Saline Saline -Foul Odor after Cleansing No No No -Bioengineered Tissue No No No -Bleeding Controlled with Pressure Pressure Pressure -Treatment Response Procedure Procedure Procedure Tolerated Well Tolerated Well Tolerated Well -Offloading No No No -Debridement - Subq, 1st 20sq cm Yes Yes Yes -Debridement, SubQ, ea addt'l 20sq cm 1 1 or part thereof Pain Scale: 0-10 Numeric Is Patient Pain Free? Yes Yes Yes WC - Nurse 3 - General Ulcer D/C NN Start: 12/14/23 11:12 Freq: Status: Active Protocol: Activity Type Activity Date Activity User E-sign Co-sign Detail Recorded Client Recorded Date Recorded By Document 12/14/23 11:12 KW bgj 12/14/23 11:25 KW Document 12/19/23 16:09 DL lk 12/19/23 16:10 DL Document 12/21/23 09:57 KW ; 12/21/23 09:59 KW Document 12/26/23 11:45 KW asfd 12/26/23 11:46 KW Document 12/31/23 14:01 KW [id number] 12/31/23 14:26 KW Document 01/02/24 12:11 CP [id number] 01/02/24 12:12 CP 12/14/23 12/19/23 12/21/23 11:12 16:09 09:57 Vital Signs Temperature (97.8 F-99.1 F) 95.4 F L 97.1 F L Temperature Source Temporal Temporal Pulse Rate (60-100) 90 89 Pulse Location Monitor Monitor Respiratory Rate (12-18) 18 18 Respiratory rate source Observation Observation Oxygen Delivery Method Room Air Room Air Blood Pressure (90/60-120/80) 150/50 H 128/74 H Blood Pressure Mean (mm Hg) 83 92 Source Monitor Monitor Position Semi-Fowlers Semi-Fowlers Blood Pressure Location Left Arm Left Arm Pain Scale: 0-10 Numeric Is Patient Pain Free? Yes Yes Yes Wound Care Center Nurse 3 #9 L Heel -Ulcer Cleansing Soap and Water Soap and Water Soap and Water -Foul Odor after Cleansing No -Primary Dressing Applied Optilok 6.5x10 Optilok 6.5x10 Optilok 6.5x10 -Other Dressing BETADINE betadine betadine -Primary Dressing Covered/Secured with Dry Gauze & Dry Gauze & Dry Gauze & Roll Gauze, Roll Gauze, Roll Gauze, Secured with Secured with Secured with Tape Tape Tape -Optilok 6.5x10 1 1 1 Right -Lotion applied to leg before compression wrap -Multi-Layered Wrap Application -Tubular Bandage Double Layer Double Layer Double Layer -Size of Tubigrip Used Size F Size E Size F -Size E ($) 2 -Size F ($) 2 2 Left -Lotion applied to leg before compression wrap -Multi-Layered Wrap Application Multi-Layer Multi-Layer Multi-Layer Comp - Left ($) Comp - Left ($) Comp - Left ($) -Tubular Bandage -Size of Tubigrip Used -Size F ($) Treatment Response Procedure Tolerated Well WC - Visit Discharge Discharge Condition Stable Stable Stable Ambulatory Status Ambulatory, Ambulatory, Ambulatory, Crutches Crutches Crutches Transportation Private Auto Private Auto Private Auto Medication Reconcilliation completed & No No provided to patient/care provider Clinical Summary of Care Provided Yes Yes Notes: PT STILL SHOWING REDNESS ON LEG AND LAT ANKLE. STILL IS ADVISED TO GO TO EMERGENCY ROOM 12/26/23 12/31/23 01/02/24 11:45 14:01 12:11 Vital Signs Temperature (97.8 F-99.1 F) 96.3 F L Temperature Source Temporal Pulse Rate (60-100) 99 Pulse Location Monitor Respiratory Rate (12-18) 18 Respiratory rate source Monitor Oxygen Delivery Method Room Air Blood Pressure (90/60-120/80) 150/97 H Blood Pressure Mean (mm Hg) 114 Source Monitor Position Sitting Blood Pressure Location Right Arm Pain Scale: 0-10 Numeric Is Patient Pain Free? Yes Yes Yes Wound Care Center Nurse 3 #9 L Heel -Ulcer Cleansing Rinsed/ Soap and Water Irrigated with Saline -Foul Odor after Cleansing -Primary Dressing Applied Optilok 6.5x10 Optilok 6.5x10 -Other Dressing betadine betadine -Primary Dressing Covered/Secured with Dry Gauze & Dry Gauze & Dry Gauze, Roll Gauze, Roll Gauze, Secured with Secured with Secured with Tape Tape Tape -Optilok 6.5x10 1 1 Right -Lotion applied to leg before Yes compression wrap -Multi-Layered Wrap Application Multi-Layer Comp - Right ($ ) -Tubular Bandage Double Layer Double Layer -Size of Tubigrip Used Size F Size F -Size E ($) -Size F ($) 2 2 Left -Lotion applied to leg before Yes Yes compression wrap -Multi-Layered Wrap Application Multi-Layer Multi-Layer Comp - Left ($) Comp - Left ($) -Tubular Bandage Double Layer -Size of Tubigrip Used Size F -Size F ($) 2 Treatment Response WC - Visit Discharge Discharge Condition Stable Stable Stable Ambulatory Status Ambulatory, Ambulatory Ambulatory Crutches Transportation Private Auto Private Auto Private Auto Medication Reconcilliation completed & No No provided to patient/care provider Clinical Summary of Care Provided Yes Yes Yes Notes: Assessment/Plan Assessment/Plan (1) Non-pressure chronic ulcer of left heel and midfoot with fat layer exposed: CODE(S): L97.422 - Non-pressure chronic ulcer of left heel and midfoot with fat layer exposed PLAN: Patient was examined and evaluated. All findings were discussed with the patient. All questions were answered to the patient's satisfaction. Excisional debridement down to and including subcutaneous tissue with a number 5 mm dermal curette to the left heel without incident. Predebridement measurement is 4.4 x 3.8 x 0.2 cm. Postdebridement measurement is 4.5 x 4.0 x 0.6 cm. Left lower extremities were cleaned and patted dry. The ulceration was dressed with Betadine soaked gauze dry sterile dressing and 3M wrap to left lower extremity. Double layer Tubigrip was donned to the right lower extremity. Educated the patient to watch his weightbearing and continue to elevate his bilateral lower extremity whenever at rest. Surgery is pending for skin graft prep with application of skin graft substitute to the left heel. Patient is understanding of this and is waiting to hear from the office. Follow-up at the wound care center with Dr. Rebollar in 1 week. (2) Other specified peripheral vascular diseases: CODE(S): I73.89 - Other specified peripheral vascular diseases
--- NOTE | 2024-01-03 13:53 | WC ---
PHOTO 01/02/24 LEFT HEEL
[2024-01-07 11:04] VITALS: BP 147/79; PULSE 88; RESP 16; TEMP 36.1; BMI 43.6
[2024-01-09 13:16] VITALS: BP 128/66; PULSE 116; RESP 16; TEMP 37.2; BMI 43.6
--- NOTE | 2024-01-09 14:19 | PN.PCM_ITS ---
History of Present Illness Date of Service: 01/09/24 Chief Complaint: Bilateral lower extremity ulcers. History of Wound: Mr. Beltran is a 68-year-old male presenting to the wound care center today from long-term facility for follow-up and evaluation of left heel ulceration. Patient was ultimately seen by an outside provider had surgical intervention and discharged to a SNF for [id number] care. Patient's wound has progressed with conservative treatment with Teena and dressing changes. He did complete oral antibiotics per infectious disease recommendation. Patient is currently living status is at the SNF and then after discharge she will be returning to his van making him homeless which he is comfortable with. He denies trauma. Denies constitutional symptoms. No other pedal complaints at this time. Subjective Subjective Mr. Beltran is a 68-year-old male presenting to wound care center today for follow-up evaluation of left heel wound. Patient has been compliant with his dressing and been following with nursing visits as instructed. He continues to rest and elevate is much as possible. He is minimal to no weightbearing to left lower extremity with assistive crutches. Patient is still currently living in his car. Denies trauma. Denies constitutional symptoms. No other pedal complaints at this time. Objective Data Objective Data Vital Signs: Vital Signs Temp Pulse Resp BP O2 Del Method 98.9 F 116 H 16 128/66 H Room Air 01/09/24 13:16 01/09/24 13:16 01/09/24 13:16 01/09/24 13:16 01/09/24 13:16 Oxygen Delivery Method Room Air Weight: 141.903 kg Body Mass Index (BMI) 43.6 Physical Exam Narrative Vascular: DP and PT pulses are palpable. CFT is brisk. Nonpitting edema appreciated left lower extremity. +1 pitting edema appreciated right lower extremity. Skin temperature gradient is warm to warm from proximal ankle to distal digits. Neurological: Light touch intact. Patient response to painful stimuli. Dermatological: Evidence of full-thickness ulceration to left heel measuring 3.2 x 4.2 x 1.5 cm. No undermining noted. Maceration present secondary to drainage. Excisional debridement down to and including subcutaneous tissue with a number 5 mm dermal curette to the left heel without incident. Predebridement measurement is 3.0 x 4.0 x 1.0 cm. Postdebridement measurement is 3.2 x 4.2 x 1.5 cm. Musculoskeletal: Muscle strength 5-5 in all quadrants bilateral. Mild pain to palpation to the full-thickness ulceration left heel. No pain with calf compression. Debridement Note Debridement Note Debridement Free Text: Excisional debridement down to and including subcutaneous tissue with a number 5 mm dermal curette to the left heel without incident. Predebridement measurement is 3.0 x 4.0 x 1.0 cm. Postdebridement measurement is 3.2 x 4.2 x 1.5 cm. Post-Debridement Measurements and Additional Note: Post-Debridement Measurements/Treatment WC - Nurse 1 - General Ulcer Assessment Start: 12/14/23 11:12 Freq: Status: Active Protocol: [email or web address].[email or web address] Activity Type Activity Date Activity User E-sign Co-sign Detail Recorded Client Recorded Date Recorded By Document 12/14/23 11:12 KW bgj 12/14/23 11:25 KW Document 12/19/23 15:12 DL [id number] 12/19/23 15:20 DL Document 12/21/23 09:57 KW ; 12/21/23 09:59 KW Document 12/26/23 11:22 KW asfd 12/26/23 11:32 KW Document 12/31/23 14:01 KW [id number] 12/31/23 14:26 KW Document 01/02/24 11:38 CP [id number] 01/02/24 11:41 CP Document 01/07/24 11:04 BMF [id number] 01/07/24 11:21 BMF Document 01/09/24 13:16 KW [id number] 01/09/24 13:27 KW 12/14/23 12/19/23 12/21/23 11:12 15:12 09:57 - Today's Visit Information Type of service Nurse-only Follow-up Visit Nurse-only Visit (Physician/BLEACHER LARD Visit ) Arrival Mode Ambulatory, Ambulatory, Ambulatory, Crutches Crutches Crutches Transfer Assistance None Patient Identification Verified (Name & Yes Yes Yes ) Patient Requires Transmission-Based No Precautions Height and Weight Body Mass Index (BMI) 43.6 43.6 43.6 BMI Classification Obese Obese Obese Vital Signs Temperature (97.8 F-99.1 F) 95.4 F L 97.5 F L 97.1 F L Temperature Source Temporal Temporal Temporal Pulse Rate (60-100) 90 98 89 Pulse Location Monitor Monitor Monitor Respiratory Rate (12-18) 18 18 18 Respiratory rate source Observation Observation Observation Oxygen Delivery Method Room Air Room Air Blood Pressure (90/60-120/80) 150/50 H 138/73 H 128/74 H Blood Pressure Mean (mm Hg) 83 94 92 Source Monitor Monitor Monitor Position Semi-Fowlers Semi-Fowlers Blood Pressure Location Left Arm Left Arm History Since Last Visit- (Skip if this is Patient's initial visit) Have you changed medications since your No No No last visit? Any new allergies or adverse reactions No No No Had a fall/change in ADL's that may No No No increase risk of falls Signs or symptoms of abuse and/or No No No neglect since last visit Have you been in the hospital since your No No No last visit? Has dressing in place as prescribed Yes Yes Yes Has compression in place as prescribed Yes Yes Yes Has offloadiing in place as prescribed Yes Yes N/A Experienced any changes in pain level or No No No management Left Footwear Surgical Shoe Surgical Shoe Surgical Shoe with pressure with pressure with pressure relief insole relief insole relief insole Right Footwear Regular Shoe Surgical Shoe Surgical Shoe with pressure with pressure relief insole relief insole Pain Scale: 0-10 Numeric Is Patient Pain Free? Yes Yes Yes L heel -Description -Duration (hours) -Pain Behavior -Pain Aggravating Factors -Alleviating Factors/Interventions -Effectiveness of Alleviating Factor/ Intervention 12/26/23 12/31/23 01/02/24 11:22 14:01 11:38 WC - Today's Visit Information Type of service Follow-up Visit Nurse-only Follow-up Visit (Physician/BLEACHER LARD Visit (Physician/BLEACHER LARD ) ) Arrival Mode Ambulatory, Ambulatory, Ambulatory, Crutches Crutches Crutches Transfer Assistance Patient Identification Verified (Name & Yes Yes Yes ) Patient Requires Transmission-Based No Precautions Height and Weight Body Mass Index (BMI) 43.6 43.6 43.6 BMI Classification Obese Obese Obese Vital Signs Temperature (97.8 F-99.1 F) 96.5 F L 96.3 F L 96.6 F L Temperature Source Temporal Temporal Temporal Pulse Rate (60-100) 53 L 99 55 L Pulse Location Monitor Monitor Monitor Respiratory Rate (12-18) 18 18 16 Respiratory rate source Observation Monitor Observation Oxygen Delivery Method Room Air Room Air Blood Pressure (90/60-120/80) 152/90 H 150/97 H 138/73 H Blood Pressure Mean (mm Hg) 110 114 94 Source Monitor Monitor Monitor Position Semi-Fowlers Sitting Sitting Blood Pressure Location Left Arm Right Arm Right Arm History Since Last Visit- (Skip if this is Patient's initial visit) Have you changed medications since your No No No last visit? Any new allergies or adverse reactions No No No Had a fall/change in ADL's that may No No No increase risk of falls Signs or symptoms of abuse and/or No No neglect since last visit Have you been in the hospital since your No No No last visit? Has dressing in place as prescribed Yes Yes Yes Has compression in place as prescribed Yes Yes Yes Has offloadiing in place as prescribed Yes Yes Experienced any changes in pain level or No No management Left Footwear Surgical Shoe Surgical Shoe with pressure with pressure relief insole relief insole Right Footwear Surgical Shoe Surgical Shoe with pressure with pressure relief insole relief insole Pain Scale: 0-10 Numeric Is Patient Pain Free? Yes Yes No L heel -Description Sharp -Duration (hours) Chronic -Pain Behavior Guarding -Pain Aggravating Factors Debridement -Alleviating Factors/Interventions Medication, Distraction -Effectiveness of Alleviating Factor/ Moderately Intervention effective 01/07/24 01/09/24 11:04 13:16 WC - Today's Visit Information Type of service Nurse-only Follow-up Visit Visit (Physician/BLEACHER LARD ) Arrival Mode Ambulatory, Ambulatory, Crutches Crutches Transfer Assistance None Patient Identification Verified (Name & Yes Yes ) Patient Requires Transmission-Based No Precautions Height and Weight Body Mass Index (BMI) 43.6 43.6 BMI Classification Obese Obese Vital Signs Temperature (97.8 F-99.1 F) 97 F L 98.9 F Temperature Source Temporal Temporal Pulse Rate (60-100) 88 116 H Pulse Location Monitor Monitor Respiratory Rate (12-18) 16 16 Respiratory rate source Observation Observation Oxygen Delivery Method Room Air Room Air Blood Pressure (90/60-120/80) 147/79 H 128/66 H Blood Pressure Mean (mm Hg) 101 86 Source Monitor Monitor Position Semi-Fowlers Semi-Fowlers Blood Pressure Location Left Arm Right Arm History Since Last Visit- (Skip if this is Patient's initial visit) Have you changed medications since your No No last visit? Any new allergies or adverse reactions No No Had a fall/change in ADL's that may No No increase risk of falls Signs or symptoms of abuse and/or No No neglect since last visit Have you been in the hospital since your No No last visit? Has dressing in place as prescribed Yes Yes Has compression in place as prescribed Yes Yes Has offloadiing in place as prescribed N/A Yes Experienced any changes in pain level or No No management Left Footwear Surgical Shoe Surgical Shoe with pressure with pressure relief insole relief insole Right Footwear Surgical Shoe Surgical Shoe with pressure with pressure relief insole relief insole Pain Scale: 0-10 Numeric Is Patient Pain Free? Yes Yes L heel -Description -Duration (hours) -Pain Behavior -Pain Aggravating Factors -Alleviating Factors/Interventions -Effectiveness of Alleviating Factor/ Intervention WC - Nurse 1 - General Ulcer Measurement Start: 12/14/23 11:12 Freq: Status: Active Protocol: Activity Type Activity Date Activity User E-sign Co-sign Detail Recorded Client Recorded Date Recorded By Document 12/19/23 15:12 DL [id number] 12/19/23 15:20 DL Document 12/26/23 11:22 KW asfd 12/26/23 11:32 KW Document 01/02/24 11:38 CP [id number] 01/02/24 11:41 CP Document 01/07/24 11:04 BMF [id number] 01/07/24 11:21 BMF Document 01/09/24 13:16 KW [id number] 01/09/24 13:27 KW 12/19/23 12/26/23 01/02/24 15:12 11:22 11:38 Wound Center Nurse 1 #9 L Heel -Current Size (cm) - Length 5 4.9 4.2 -Current Size (cm) - Width 4.5 4.5 4.5 -Current Size (cm) - Depth 0.2 1 0.5 -Total Square Cm 22.5 22.05 18.90 -Date of Last Picture (Recall this 01/02/24 field) -Photo Taken Yes Yes -Undermining/Tunneling No -Exudate Amt Large Large Small -Exudate Type Sanguineous Serosanguineous Serosanguineous -Wound Margin Distinct, Distinct, Flat & Intact Outline Outline Attached Attached -Granulation Amt Medium (34-66%) Medium (34-66%) Medium (34-66%) -Granulation Quality Red Red Red -Slough/Fibrin Yes -Necrosis Amt Medium (34-66%) Medium (34-66%) Medium (34-66%) -Necrotic Tissue Type Adherent Slough Adherent Slough Adherent Slough -Structure Exposed N/A -Texture (Marva-wound Skin Appearance) Localized Edema Assessed No Abnormality ,Scarring -Moisture (Marva-wound Skin Appearance) Maceration Assessed, No Abnormality Maceration -Color (Marva-wound Skin Appearance) Erythema, Assessed No Abnormality Hemosiderin Staining -Temperature (Marva-wound Skin No Abnormality No Abnormality No Abnormality Appearance) (Pt Warm) (Pt Warm) (Pt Warm) -Tenderness on Palpation (Marva-wound No No Skin Appearance) -Ulcer Cleansing Soap and Water Soap and Water Soap and Water -Foul Odor after Cleansing No No No -Anesthetic Used 4% Lidocaine 5% Lidocaine 5% Lidocaine Solution Gel Gel Lower Limb Edema Present Left Calf (cm) 54 46 Left Ankle (cm) 34.5 33 01/07/24 01/09/24 11:04 13:16 Wound Center Nurse 1 #9 L Heel -Current Size (cm) - Length 3.4 -Current Size (cm) - Width 4.5 -Current Size (cm) - Depth 2.2 -Total Square Cm 15.30 -Date of Last Picture (Recall this field) -Photo Taken -Undermining/Tunneling -Exudate Amt Large -Exudate Type Sanguineous -Wound Margin Distinct, Outline Attached -Granulation Amt Medium (34-66%) -Granulation Quality Red -Slough/Fibrin -Necrosis Amt Medium (34-66%) -Necrotic Tissue Type Adherent Slough -Structure Exposed -Texture (Marva-wound Skin Appearance) Assessed -Moisture (Marva-wound Skin Appearance) Assessed, Maceration -Color (Marva-wound Skin Appearance) Assessed -Temperature (Marva-wound Skin No Abnormality Appearance) (Pt Warm) -Tenderness on Palpation (Marva-wound No Skin Appearance) -Ulcer Cleansing Not Cleansed -Foul Odor after Cleansing No -Anesthetic Used 5% Lidocaine Gel Lower Limb Edema Present Yes Left Calf (cm) 47.1 Left Ankle (cm) 32.5 WC - Nurse 2 - General Ulcer CM Notes Start: 08/02/24 11:12 Freq: Status: Active Protocol: Activity Type Activity Date Activity User E-sign Co-sign Detail Recorded Client Recorded Date Recorded By Document 12/19/23 15:39 JF 000 12/19/23 15:44 Document 12/26/23 11:36 0000 12/26/23 11:39 Document 01/02/24 11:56 [id number] 01/02/24 12:00 Document 01/09/24 13:48 [id number] 01/09/24 13:53 12/19/23 12/26/23 01/02/24 15:39 11:36 11:56 Wound Center Nurse 2 #9 L Heel -Time 15:40 11:37 11:56 -Correct Patient Yes Yes Yes -Correct Side, Site, Position Yes Yes Yes -Correct Procedure Yes Yes Yes -Procedure Performed Yes Yes Yes -Type of Procedure Debridement Debridement Debridement -Clinical Debridement Subcutaneous Subcutaneous Subcutaneous -Tissue Removed Subcutaneous Subcutaneous Subcutaneous -Post Debridement (cm) - Length 5.0 4.5 4.5 -Post Debridement (cm) - Width 5.2 4.9 4.0 -Post Debridement (cm) - Depth 0.3 0.2 1.4 -Total Square (Post) (cm) 26.00 22.05 18.00 -Area of Debridement (cm) - Length 5.0 4.5 4.5 -Area of Debridement (cm) - Width 5.2 4.9 4.0 -Total Square (Area) (cm) 26.00 22.05 18.00 -Tunneling No No No -Undermining/Tunneling No No No -Circular Undermining No No No -Wound/Ulcer Outcome Not Healed Not Healed Not Healed -Ulcer Cleansing Rinsed/ Rinsed/ Rinsed/ Irrigated with Irrigated with Irrigated with Saline Saline Saline -Foul Odor after Cleansing No No No -Bioengineered Tissue No No No -Bleeding Controlled with Pressure Pressure Pressure -Treatment Response Procedure Procedure Procedure Tolerated Well Tolerated Well Tolerated Well -Offloading No No No -Debridement - Subq, 1st 20sq cm Yes Yes Yes -Debridement, SubQ, ea addt'l 20sq cm 1 1 or part thereof Pain Scale: 0-10 Numeric Is Patient Pain Free? Yes Yes Yes 01/09/24 13:48 Wound Center Nurse 2 #9 L Heel -Time 13:49 -Correct Patient Yes -Correct Side, Site, Position Yes -Correct Procedure Yes -Procedure Performed Yes -Type of Procedure Debridement -Clinical Debridement Subcutaneous -Tissue Removed Subcutaneous -Post Debridement (cm) - Length 3.2 -Post Debridement (cm) - Width 4.2 -Post Debridement (cm) - Depth 1.5 -Total Square (Post) (cm) 13.44 -Area of Debridement (cm) - Length 3.2 -Area of Debridement (cm) - Width 4.2 -Total Square (Area) (cm) 13.44 -Tunneling No -Undermining/Tunneling No -Circular Undermining No -Wound/Ulcer Outcome Not Healed -Ulcer Cleansing Rinsed/ Irrigated with Saline -Foul Odor after Cleansing No -Bioengineered Tissue No -Bleeding Controlled with Pressure -Treatment Response Procedure Tolerated Well -Offloading No -Debridement - Subq, 1st 20sq cm Yes -Debridement, SubQ, ea addt'l 20sq cm or part thereof Pain Scale: 0-10 Numeric Is Patient Pain Free? Yes WC - Nurse 3 - General Ulcer D/C NN Start: 12/14/23 11:12 Freq: Status: Active Protocol: Activity Type Activity Date Activity User E-sign Co-sign Detail Recorded Client Recorded Date Recorded By Document 12/14/23 11:12 KW bgj 12/14/23 11:25 KW Document 12/19/23 16:09 DL lk 12/19/23 16:10 DL Document 12/21/23 09:57 KW ; 12/21/23 09:59 KW Document 12/26/23 11:45 KW asfd 12/26/23 11:46 KW Edit Result 12/26/23 11:45 KW (1) [id number] 01/03/24 12:26 JF Document 12/31/23 14:01 KW [id number] 12/31/23 14:26 KW Document 01/02/24 12:11 CP [id number] 01/02/24 12:12 CP Document 01/07/24 11:04 BMF [id number] 01/07/24 11:21 BMF Document 01/09/24 14:00 JF [id number] 01/09/24 14:01 JF (1) Right - Multi-Layered Wrap Application Multi-Layer Comp - => Right ($) => - Tubular Bandage => Double Layer - Size of Tubigrip Used => Size F - Size F ($) => 2 Left - Multi-Layered Wrap Application => Multi-Layer Comp - => Left ($) - Tubular Bandage Double Layer => - Size of Tubigrip Used Size F => - Size F ($) 2 => 12/14/23 12/19/23 12/21/23 11:12 16:09 09:57 Vital Signs Temperature (97.8 F-99.1 F) 95.4 F L 97.1 F L Temperature Source Temporal Temporal Pulse Rate (60-100) 90 89 Pulse Location Monitor Monitor Respiratory Rate (12-18) 18 18 Respiratory rate source Observation Observation Oxygen Delivery Method Room Air Room Air Blood Pressure (90/60-120/80) 150/50 H 128/74 H Blood Pressure Mean (mm Hg) 83 92 Source Monitor Monitor Position Semi-Fowlers Semi-Fowlers Blood Pressure Location Left Arm Left Arm Pain Scale: 0-10 Numeric Is Patient Pain Free? Yes Yes Yes Wound Care Center Nurse 3 #9 L Heel -Ulcer Cleansing Soap and Water Soap and Water Soap and Water -Foul Odor after Cleansing No -Primary Dressing Applied Optilok 6.5x10 Optilok 6.5x10 Optilok 6.5x10 -Other Dressing BETADINE betadine betadine -Primary Dressing Covered/Secured with Dry Gauze & Dry Gauze & Dry Gauze & Roll Gauze, Roll Gauze, Roll Gauze, Secured with Secured with Secured with Tape Tape Tape -Optilok 6.5x10 1 1 1 Right -Lotion applied to leg before compression wrap -Tubular Bandage Double Layer Double Layer Double Layer -Size of Tubigrip Used Size F Size E Size F -Size E ($) 2 -Size F ($) 2 2 -Other Left -Lotion applied to leg before compression wrap -Multi-Layered Wrap Application Multi-Layer Multi-Layer Multi-Layer Comp - Left ($) Comp - Left ($) Comp - Left ($) Treatment Response Procedure Tolerated Well WC - Visit Discharge Discharge Condition Stable Stable Stable Ambulatory Status Ambulatory, Ambulatory, Ambulatory, Crutches Crutches Crutches Transportation Private Auto Private Auto Private Auto Medication Reconcilliation completed & No No provided to patient/care provider Clinical Summary of Care Provided Yes Yes Notes: PT STILL SHOWING REDNESS ON LEG AND LAT ANKLE. STILL IS ADVISED TO GO TO EMERGENCY ROOM 12/26/23 12/31/23 01/02/24 11:45 14:01 12:11 Vital Signs Temperature (97.8 F-99.1 F) 96.3 F L Temperature Source Temporal Pulse Rate (60-100) 99 Pulse Location Monitor Respiratory Rate (12-18) 18 Respiratory rate source Monitor Oxygen Delivery Method Room Air Blood Pressure (90/60-120/80) 150/97 H Blood Pressure Mean (mm Hg) 114 Source Monitor Position Sitting Blood Pressure Location Right Arm Pain Scale: 0-10 Numeric Is Patient Pain Free? Yes Yes Yes Wound Care Center Nurse 3 #9 L Heel -Ulcer Cleansing Rinsed/ Soap and Water Irrigated with Saline -Foul Odor after Cleansing -Primary Dressing Applied Optilok 6.5x10 Optilok 6.5x10 -Other Dressing betadine betadine -Primary Dressing Covered/Secured with Dry Gauze & Dry Gauze & Dry Gauze, Roll Gauze, Roll Gauze, Secured with Secured with Secured with Tape Tape Tape -Optilok 6.5x10 1 1 Right -Lotion applied to leg before Yes compression wrap -Tubular Bandage Double Layer Double Layer Double Layer -Size of Tubigrip Used Size F Size F Size F -Size E ($) -Size F ($) 2 2 2 -Other Left -Lotion applied to leg before Yes Yes compression wrap -Multi-Layered Wrap Application Multi-Layer Multi-Layer Multi-Layer Comp - Left ($) Comp - Left ($) Comp - Left ($) Treatment Response WC - Visit Discharge Discharge Condition Stable Stable Stable Ambulatory Status Ambulatory, Ambulatory Ambulatory Crutches Transportation Private Auto Private Auto Private Auto Medication Reconcilliation completed & No No provided to patient/care provider Clinical Summary of Care Provided Yes Yes Yes Notes: 01/07/24 01/09/24 11:04 14:00 Vital Signs Temperature (97.8 F-99.1 F) 97 F L Temperature Source Temporal Pulse Rate (60-100) 88 Pulse Location Monitor Respiratory Rate (12-18) 16 Respiratory rate source Observation Oxygen Delivery Method Room Air Blood Pressure (90/60-120/80) 147/79 H Blood Pressure Mean (mm Hg) 101 Source Monitor Position Semi-Fowlers Blood Pressure Location Left Arm Pain Scale: 0-10 Numeric Is Patient Pain Free? Yes Yes Wound Care Center Nurse 3 #9 L Heel -Ulcer Cleansing Soap and Water -Foul Odor after Cleansing No -Primary Dressing Applied Optilok 6.5x10 Optilok 6.5x10 -Other Dressing betadine gauze betadine -Primary Dressing Covered/Secured with -Optilok 6.5x10 1 1 Right -Lotion applied to leg before compression wrap -Tubular Bandage -Size of Tubigrip Used -Size E ($) -Size F ($) -Other tubigrip Left -Lotion applied to leg before compression wrap -Multi-Layered Wrap Application Multi-Layer Multi-Layer Comp - Left ($) Comp - Left ($) Treatment Response Procedure Tolerated Well WC - Visit Discharge Discharge Condition Stable Stable Ambulatory Status Ambulatory, Ambulatory, Crutches Crutches Transportation Private Auto Private Auto Medication Reconcilliation completed & No provided to patient/care provider Clinical Summary of Care Provided Yes Notes: Assessment/Plan Assessment/Plan (1) Non-pressure chronic ulcer of left heel and midfoot with fat layer exposed: CODE(S): L97.422 - Non-pressure chronic ulcer of left heel and midfoot with fat layer exposed PLAN: Patient was examined and evaluated. All findings were discussed with the patient. All questions were answered to the patient's satisfaction. Excisional debridement down to and including subcutaneous tissue with a number 5 mm dermal curette to the left heel without incident. Predebridement measurement is 3.0 x 4.0 x 1.0 cm. Postdebridement measurement is 3.2 x 4.2 x 1.5 cm. M oist Teena was applied to left heel followed by dry sterile dressing 3M wraps. Patient will follow-up on Sunday for nursing visit and then with Dr. Rebollar next Sunday. Weightbearing status is toe-touch only with assistance of crutches. Will begin authorization for amniotic skin graft substitute to the left heel. Follow-up at the wound care center with Dr. Rebollar in 1 week. (2) Other specified peripheral vascular diseases: CODE(S): I73.89 - Other specified peripheral vascular diseases
[2024-01-11 11:03] VITALS: RESP 18; BMI 43.6
== END 2024-01-12 23:59 | disposition home or self-care (01) ==
LOC: WC 13:30
PROVIDERS: Referring Provider Podiatrist; Visit Provider Podiatrist Foot & Ankle Surgery
DX: I73.89 Other specified peripheral vascular diseases (principal); L97.422 Non-pressure chronic ulcer of left heel and midfoot with fat layer exposed; M79.672 Pain in left foot; Z59.01 Sheltered homelessness
CPT/HCPCS: 11042; 11045; 29581; 99212; G0463

== ENCOUNTER 2024-02-11 11:00 | Outpatient (RCR) | payer MEDICARE, MEDICAID, SELFPAY ==
[2024-01-13 00:24] VITALS: BP 150/86; PULSE 86; RESP 20; TEMP 36.3; BMI 43.6
[2024-01-16 13:32] VITALS: BP 132/63; PULSE 91; RESP 16; TEMP 35.9; BMI 43.6
[2024-01-18 11:37] VITALS: BP 118/97; PULSE 88; RESP 18; TEMP 35.5; BMI 43.6
[2024-01-23 14:24] VITALS: BMI 43.6
[2024-01-25 11:53] VITALS: BP 130/77; PULSE 90; RESP 18; TEMP 36.6; BMI 43.6
[2024-01-30 13:11] VITALS: BP 134/71; PULSE 87; RESP 18; BMI 43.6
[2024-02-04 11:04] VITALS: BP 129/75; PULSE 92; RESP 18; TEMP 35.9; BMI 43.6
[2024-02-06 13:16] VITALS: BP 144/89; PULSE 91; RESP 18; TEMP 36.1; BMI 43.6
[2024-02-11 11:21] VITALS: BP 141/86; PULSE 87; RESP 18; TEMP 36.2; BMI 43.6
== END 2024-02-11 23:59 | disposition home or self-care (01) ==
LOC: WC 11:00
PROVIDERS: Referring Provider Podiatrist; Visit Provider Podiatrist Foot & Ankle Surgery
DX: L97.422 Non-pressure chronic ulcer of left heel and midfoot with fat layer exposed (principal); I73.89 Other specified peripheral vascular diseases
CPT/HCPCS: 11042; 15275; 29581; Q4187

== ENCOUNTER 2024-03-12 10:30 | Outpatient (RCR) | payer MEDICARE, MEDICAID, SELFPAY ==
[2024-02-12 00:37] VITALS: BP 150/86; PULSE 86; RESP 20; TEMP 36.3; BMI 43.6
[2024-02-15 11:33] VITALS: BP 134/83; PULSE 85; RESP 18; TEMP 36.1; BMI 43.6
[2024-02-20 13:37] VITALS: BP 146/89; PULSE 90; RESP 18; TEMP 36; BMI 43.6
--- NOTE | 2024-02-20 14:32 | PN.PCM_ITS ---
History of Present Illness Date of Service: 02/20/24 Chief Complaint: Bilateral lower extremity ulcers. History of Wound: Mr. Beltran is a 68-year-old male presenting to the wound care center today from alf facility for follow-up and evaluation of left heel ulceration. Patient was ultimately seen by an outside provider had surgical intervention and discharged to a SNF for tkgqhy-fcl-fdhim care. Patient's wound has progressed with conservative treatment with Teena and dressing changes. He did complete oral antibiotics per infectious disease recommendation. Patient is currently living status is at the SNF and then after discharge she will be returning to his van making him homeless which he is comfortable with. He denies trauma. Denies constitutional symptoms. No other pedal complaints at this time. Subjective Subjective Mr. Beltran is a 68-year-old male presenting to wound care center today for follow-up evaluation of full-thickness wound to the plantar aspect of the left heel. Patient has been compliant with elevation and leaving his dressing clean dry and intact. He denies any pain to left lower extremity. Denies trauma. Denies constitutional symptoms. No other pedal complaints at this time. Objective Data Objective Data Vital Signs: Vital Signs Temp Pulse Resp BP O2 Del Method 96.8 F L 90 18 146/89 H Room Air 02/20/24 13:37 02/20/24 13:37 02/20/24 13:37 02/20/24 13:37 02/20/24 13:37 Oxygen Delivery Method Room Air Weight: 141.903 kg Body Mass Index (BMI) 43.6 Physical Exam Narrative Vascular: DP and PT pulses are palpable. CFT is brisk. Nonpitting edema appr eciated left lower extremity. +1 pitting edema appreciated right lower extremity. Skin temperature gradient is warm to warm from proximal ankle to distal digits. Neurological: Light touch intact. Patient response to painful stimuli. Dermatological: Evidence of full-thickness ulceration to left heel measuring 1.0 x 1.0 x 0.6 cm. No undermining noted. Maceration present secondary to drainage, improved. Excisional debridement down to and including subcutaneous tissue with a number 5 mm dermal curette to the left heel without incident. Predebridement measurement is 0.8 x 0.8 x 0.3 cm. Postdebridement measurement is 1.0 x 1.0 x 0.6 cm. EpiCord 2.0 x 3.0 cm graft was applied to the left full-thickness ulceration with 100% use. Fifth application. The graft site was free and clear of any infection. The wound/skin graft substitute was dressed with nonadherent bandage secured in place with Steri-Strips followed by bolster dressing as well as multilayer compression 3M wrap to the left lower extremity. Musculoskeletal: Muscle strength 5-5 in all quadrants bilateral. Mild pain to palpation to the full-thickness ulceration left heel. No pain with calf compression. Debridement Note Debridement Note Debridement Free Text: Excisional debridement down to and including subcutaneous tissue with a number 5 mm dermal curette to the left heel without incident. Predebridement measurement is 0.8 x 0.8 x 0.3 cm. Postdebridement measurement is 1.0 x 1.0 x 0.6 cm. EpiCord 2.0 x 3.0 cm graft was applied to the left full-thickness ulceration with 100% use. Fifth application. The graft site was free and clear of any infection. The wound/skin graft substitute was dressed with nonadherent bandage secured in place with Steri-Strips followed by bolster dressing as well as multilayer compression 3M wrap to the left lower extremity. Post-Debridement Measurements and Additional Note: Post-Debridement Measurements/Treatment - Nurse 1 - General Ulcer Assessment Start: 02/15/24 11:33 Freq: Status: Active Protocol: [email or web address] Activity Type Activity Date Activity User E-sign Co-sign Detail Recorded Client Recorded Date Recorded By Document 02/15/24 11:33 RB [id number] 02/15/24 11:38 RB Document 02/20/24 13:37 KW [id number] 02/20/24 13:48 KW 02/15/24 02/20/24 11:33 13:37 - Today's Visit Information Type of service Nurse-only Follow-up Visit Visit (Physician/[employer]ING TE[employer]ER ) Arrival Mode Ambulatory Ambulatory, Crutches Transfer Assistance None Patient Identification Verified (Name & Yes Yes ) Patient Requires Transmission-Based No Precautions Height and Weight Body Mass Index (BMI) 43.6 43.6 BMI Classification Obese Obese Vital Signs Temperature (97.8 F-99.1 F) 97 F L 96.8 F L Temperature Source Temporal Temporal Pulse Rate (60-100) 85 90 Pulse Location Monitor Monitor Respiratory Rate (12-18) 18 18 Respiratory rate source Observation Observation Oxygen Delivery Method Room Air Blood Pressure (90/60-120/80) 134/83 H 146/89 H Blood Pressure Mean (mm Hg) 100 108 Source Monitor Monitor Position Sitting Semi-Fowlers Blood Pressure Location Left Arm Left Arm History Since Last Visit- (Skip if this is Patient's initial visit) Have you changed medications since your No No last visit? Any new allergies or adverse reactions No No Had a fall/change in ADL's that may No No increase risk of falls Signs or symptoms of abuse and/or No No neglect since last visit Have you been in the hospital since your No No last visit? Has dressing in place as prescribed Yes Yes Has compression in place as prescribed Yes Yes Has offloadiing in place as prescribed No Yes Experienced any changes in pain level or No No management Left Footwear Surgical Shoe with pressure relief insole Right Footwear Surgical Shoe with pressure relief insole Pain Scale: 0-10 Numeric Is Patient Pain Free? Yes Yes WC - Nurse 1 - General Ulcer Measurement Start: 02/15/24 11:33 Freq: Status: Active Protocol: Activity Type Activity Date Activity User E-sign Co-sign Detail Recorded Client Recorded Date Recorded By Document 02/15/24 11:33 RB [id number] 02/15/24 11:38 RB Document 02/20/24 13:37 [email or web address] [id number] 02/20/24 13:48 KW 02/15/24 02/20/24 11:33 13:37 Wound Center Nurse 1 #9 L Heel -Combined with other wound No -Current Size (cm) - Length 2 -Current Size (cm) - Width 1.5 -Current Size (cm) - Depth 0.4 -Total Square Cm 3.0 -Date of Last Picture (Recall this 02/20/24 field) -Tunneling No -Undermining/Tunneling No -Circular Undermining No -Exudate Amt Medium Medium -Exudate Type Serosanguineous Serosanguineous -Wound Margin Distinct, Outline Attached -Granulation Amt Large (67-100%) -Granulation Quality [place] -Necrosis Amt Medium (34-66%) -Necrotic Tissue Type Adherent Slough -Texture (Marva-wound Skin Appearance) Assessed -Moisture (Marva-wound Skin Appearance) Assessed -Color (Marva-wound Skin Appearance) Assessed -Temperature (Marva-wound Skin No Abnormality Appearance) (Pt Warm) -Tenderness on Palpation (Marva-wound No Skin Appearance) -Ulcer Cleansing Soap and Water -Foul Odor after Cleansing No -Anesthetic Used 5% Lidocaine Gel -Wound Comment(s) epifix and wouns veil/ steri strips left in place Lower Limb Edema Present Yes Left Calf (cm) 47 Left Ankle (cm) 33 WC - Nurse 2 - General Ulcer CM Notes Start: 02/15/24 11:33 Freq: Status: Active Protocol: Activity Type Activity Date Activity User E-sign Co-sign Detail Recorded Client Recorded Date Recorded By Document 02/20/24 14:09 TIA [id number] 02/20/24 14:15 02/20/24 14:09 Wound Center Nurse 2 -Time 14:10 -Correct Patient Yes -Correct Side, Site, Position Yes -Correct Procedure Yes -Procedure Performed Yes -Type of Procedure Debridement -Clinical Debridement Subcutaneous -Tissue Removed Subcutaneous -Post Debridement (cm) - Length 1 -Post Debridement (cm) - Width 1 -Post Debridement (cm) - Depth 0.6 -Total Square (Post) (cm) 1 -Area of Debridement (cm) - Length 1 -Area of Debridement (cm) - Width 1 -Total Square (Area) (cm) 1 -Tunneling No -Undermining/Tunneling No -Circular Undermining No -Wound/Ulcer Outcome Not Healed -Ulcer Cleansing Rinsed/ Irrigated with Saline -Foul Odor after Cleansing No -Bioengineered Tissue Yes -Type of Bioengineered Tissue Epicord -Expiration Date 07/12/28 -Product Lot Number [id number] -Percent Used 100 -Lot number of Saline Used [id number] -Bleeding Controlled with Pressure -Treatment Response Procedure Tolerated Well -Offloading No -Debridement - Subq, 1st 20sq cm No -Apply Skin Sub - 1st 25 sq cm - Feet 1 -Epicord (per sq cm) 6 Pain Scale: 0-10 Numeric Is Patient Pain Free? Yes WC - Nurse 3 - General Ulcer D/C NN Start: 02/15/24 11:33 Freq: Status: Active Protocol: Activity Type Activity Date Activity User E-sign Co-sign Detail Recorded Client Recorded Date Recorded By Document 02/15/24 11:33 RB [id number] 02/15/24 11:38 RB 02/15/24 11:33 Vital Signs Temperature (97.8 F-99.1 F) 97 F L Temperature Source Temporal Pulse Rate (60-100) 85 Pulse Location Monitor Respiratory Rate (12-18) 18 Respiratory rate source Observation Blood Pressure (90/60-120/80) 134/83 H Blood Pressure Mean (mm Hg) 100 Source Monitor Position Sitting Blood Pressure Location Left Arm Pain Scale: 0-10 Numeric Is Patient Pain Free? Yes Wound Care Center Nurse 3 #9 L Heel -Primary Dressing Applied Optilok 6.5x10 -Other Dressing aquacel extra -Primary Dressing Covered/Secured with Dry Gauze & Roll Gauze, Secured with Tape -Optilok 6.5x10 1 Right -Tubular Bandage Double Layer -Size of Tubigrip Used Size F -Size F ($) 2 Left -Multi-Layered Wrap Application Multi-Layer Comp - Left ($) Treatment Response Procedure Tolerated Well WC - Visit Discharge Discharge Condition Stable Ambulatory Status Ambulatory, Crutches Transportation Private Auto Medication Reconcilliation completed & No provided to patient/care provider Clinical Summary of Care Provided Yes Assessment/Plan Assessment/Plan (1) Non-pressure chronic ulcer of left heel and midfoot with fat layer exposed: CODE(S): L97.422 - Non-pressure chronic ulcer of left heel and midfoot with fat layer exposed PLAN: Patient was examined and evaluated. All findings were discussed with the patient. All questions were answered to the patient's satisfaction. Excisional debridement down to and including subcutaneous tissue with a number 5 mm dermal curette to the left heel without incident. Predebridement measurement is 0.8 x 0.8 x 0.3 cm. Postdebridement measurement is 1.0 x 1.0 x 0.6 cm. EpiCord 2.0 x 3.0 cm graft was applied to the left full-thickness ulceration with 100% use. Fifth application. The graft site was free and clear of any infection. The wound/skin graft substitute was dressed with nonadherent bandage secured in place with Steri-Strips followed by bolster dressing as well as multilayer compression 3M wrap to the left lower extremity. Patient will continue to be nonweightbearing to left lower extremity. Follow-up at the wound care center with Dr. Rebollar in 1 week. (2) Other specified peripheral vascular diseases: CODE(S): I73.89 - Other specified peripheral vascular diseases
--- NOTE | 2024-02-21 09:36 | WC ---
PHOTO 02/20/24 LEFT HEEL
[2024-02-25 11:02] VITALS: BP 137/73; PULSE 89; RESP 18; TEMP 36.8; BMI 43.6
[2024-02-27 11:34] VITALS: BP 143/85; PULSE 87; RESP 18; TEMP 35.6; BMI 43.6
--- NOTE | 2024-02-27 12:39 | PCM.WC.PN ---
History of Present Illness Date of Service: 02/27/24 Chief Complaint: Bilateral lower extremity ulcers. History of Wound: Mr. Beltran is a 68-year-old male presenting to the wound care center today from assisted facility for follow-up and evaluation of left heel ulceration. Patient was ultimately seen by an outside provider had surgical intervention and discharged to a SNF for uhpyrf-dil-abbjb care. Patient's wound has progressed with conservative treatment with Teena and dressing changes. He did complete oral antibiotics per infectious disease recommendation. Patient is currently living status is at the SNF and then after discharge she will be returning to his van making him homeless which he is comfortable with. He denies trauma. Denies constitutional symptoms. No other pedal complaints at this time. Subjective Subjective Mr. Beltran is a 68-year-old male presenting to clinic today for follow-up evaluation of left heel ulceration. He has left his 3M wraps clean dry and intact. He denies any pain left lower extremity. Denies trauma. Denies constitutional symptoms. No other pedal complaints at this time. Objective Data Objective Data Vital Signs: Vital Signs Temp Pulse Resp BP O2 Del Method 96.0 F L 87 18 143/85 H Room Air 02/27/24 11:34 02/27/24 11:34 02/27/24 11:34 02/27/24 11:34 02/27/24 11:34 Oxygen Delivery Method Room Air Weight: 141.903 kg Body Mass Index (BMI) 43.6 Physical Exam Narrative Vascular: DP and PT pulses are palpable. CFT is brisk. Nonpitting edema appreciated left lower extremity. +1 pitting edema appreciated right lower extremity. Skin temperature gradient is warm to warm from proximal ankle to distal digits. Neurological: Light touch intact. Patient response to painful stimuli. Dermatological: Evidence of full-thickness ulceration to left heel measuring 0.5 x 1.2 x 0.6 cm. No undermining noted. Maceration present secondary to drainage, improved. Excisional debridement down to and including subcutaneous tissue with a number 5 mm dermal curette to the left heel without incident. Predebridement measurement is 0.4 x 1.0 x 0.3 cm. Postdebridement measurement is 0.5 x 1.2 x 0.6 cm. EpiCord 2.0 x 3.0 cm graft was applied to the left full-thickness ulceration with 100% use. 6th application. The graft site was free and clear of any infection. The wound/skin graft substitute was dressed with nonadherent bandage secured in place with Steri-Strips followed by bolster dressing as well as multilayer compression 3M wrap to the left lower extremity. Musculoskeletal: Muscle strength 5-5 in all quadrants bilateral. Mild pain to palpation to the full-thickness ulceration left heel. No pain with calf compression. Debridement Note Debridement Note Post-Debridement Measurements and Additional Note: Post-Debridement Measurements/Treatment - Nurse 1 - General Ulcer Assessment Start: 02/15/24 11:33 Freq: Status: Active Protocol: PHOEBE.Molecular Sensing Activity Type Activity Date Activity User E-sign Co-sign Detail Recorded Client Recorded Date Recorded By Document 02/15/24 11:33 RB [id number] 02/15/24 11:38 RB Document 02/20/24 13:37 KW [id number] 02/20/24 13:48 KW Document 02/25/24 11:02 KW [id number] 02/25/24 11:03 KW Document 02/27/24 11:34 KW [id number] 02/27/24 11:48 KW 02/15/24 02/20/24 02/25/24 11:33 13:37 11:02 - Today's Visit Information Type of service Nurse-only Follow-up Visit Nurse-only Visit (Physician/SALES AND TRAINING SPECIALIST Visit ) Arrival Mode Ambulatory Ambulatory, Ambulatory, Crutches Crutches Transfer Assistance None Patient Identification Verified (Name & Yes Yes Yes ) Patient Requires Transmission-Based No Precautions Height and Weight Body Mass Index (BMI) 43.6 43.6 43.6 BMI Classification Obese Obese Obese Vital Signs Temperature (97.8 F-99.1 F) 97 F L 96.8 F L 98.2 F Temperature Source Temporal Temporal Temporal Pulse Rate (60-100) 85 90 89 Pulse Location Monitor Monitor Monitor Respiratory Rate (12-18) 18 18 18 Respiratory rate source Observation Observation Observation Oxygen Delivery Method Room Air Room Air Blood Pressure (90/60-120/80) 134/83 H 146/89 H 137/73 H Blood Pressure Mean (mm Hg) 100 108 94 Source Monitor Monitor Monitor Position Sitting Semi-Fowlers Semi-Fowlers Blood Pressure Location Left Arm Left Arm Left Arm History Since Last Visit- (Skip if this is Patient's initial visit) Have you changed medications since your No No No last visit? Any new allergies or adverse reactions No No No Had a fall/change in ADL's that may No No No increase risk of falls Signs or symptoms of abuse and/or No No No neglect since last visit Have you been in the hospital since your No No No last visit? Has dressing in place as prescribed Yes Yes Yes Has compression in place as prescribed Yes Yes Yes Has offloadiing in place as prescribed No Yes Yes Experienced any changes in pain level or No No No management Left Footwear Surgical Shoe Surgical Shoe with pressure with pressure relief insole relief insole Right Footwear Surgical Shoe Surgical Shoe with pressure with pressure relief insole relief insole Pain Scale: 0-10 Numeric Is Patient Pain Free? Yes Yes Yes 02/27/24 11:34 WC - Today's Visit Information Type of service Follow-up Visit (Physician/SALES AND TRAINING SPECIALIST ) Arrival Mode Ambulatory, Crutches Transfer Assistance Patient Identification Verified (Name & Yes ) Patient Requires Transmission-Based Precautions Height and Weight Body Mass Index (BMI) 43.6 BMI Classification Obese Vital Signs Temperature (97.8 F-99.1 F) 96.0 F L Temperature Source Temporal Pulse Rate (60-100) 87 Pulse Location Monitor Respiratory Rate (12-18) 18 Respiratory rate source Observation Oxygen Delivery Method Room Air Blood Pressure (90/60-120/80) 143/85 H Blood Pressure Mean (mm Hg) 104 Source Monitor Position Semi-Fowlers Blood Pressure Location Left Arm History Since Last Visit- (Skip if this is Patient's initial visit) Have you changed medications since your No last visit? Any new allergies or adverse reactions No Had a fall/change in ADL's that may No increase risk of falls Signs or symptoms of abuse and/or No neglect since last visit Have you been in the hospital since your No last visit? Has dressing in place as prescribed Yes Has compression in place as prescribed Yes Has offloadiing in place as prescribed N/A Experienced any changes in pain level or No management Left Footwear Surgical Shoe with pressure relief insole Right Footwear Surgical Shoe with pressure relief insole Pain Scale: 0-10 Numeric Is Patient Pain Free? Yes - Nurse 1 - General Ulcer Measurement Start: 02/15/24 11:33 Freq: Status: Active Protocol: Activity Type Activity Date Activity User E-sign Co-sign Detail Recorded Client Recorded Date Recorded By Document 02/15/24 11:33 RB [id number] 02/15/24 11:38 RB Document 02/20/24 13:37 KW [id number] 02/20/24 13:48 KW Document 02/27/24 11:34 KW [id number] 02/27/24 11:48 KW 02/15/24 02/20/24 02/27/24 11:33 13:37 11:34 Wound Center Nurse 1 #9 L Heel -Combined with other wound No -Current Size (cm) - Length 2 1.3 -Current Size (cm) - Width 1.5 0.8 -Current Size (cm) - Depth 0.4 0.3 -Total Square Cm 3.0 1.04 -Date of Last Picture (Recall this 02/20/24 02/27/24 field) -Tunneling No -Undermining/Tunneling No -Circular Undermining No -Exudate Amt Medium Medium Small -Exudate Type Serosanguineous Serosanguineous Serosanguineous -Wound Margin Distinct, Distinct, Outline Outline Attached Attached -Granulation Amt Large (67-100%) Small (1-33%) -Granulation Quality [place] -Necrosis Amt Medium (34-66%) Large (67-100%) -Necrotic Tissue Type Adherent Slough Adherent Slough -Texture (Marva-wound Skin Appearance) Assessed Assessed,Callus -Moisture (Marva-wound Skin Appearance) Assessed Assessed,Dry/ Scaly -Color (Marva-wound Skin Appearance) Assessed Assessed -Temperature (Marva-wound Skin No Abnormality No Abnormality Appearance) (Pt Warm) (Pt Warm) -Tenderness on Palpation (Marva-wound No No Skin Appearance) -Ulcer Cleansing Soap and Water Soap and Water -Foul Odor after Cleansing No No -Anesthetic Used 5% Lidocaine 5% Lidocaine Gel Gel -Wound Comment(s) epifix and wouns veil/ steri strips left in place Lower Limb Edema Present Yes Left Calf (cm) 47 Left Ankle (cm) 33 WC - Nurse 2 - General Ulcer CM Notes Start: 02/15/24 11:33 Freq: Status: Active Protocol: Activity Type Activity Date Activity User E-sign Co-sign Detail Recorded Client Recorded Date Recorded By Document 02/20/24 14:09 [id number] 02/20/24 14:15 Document 02/27/24 12:04 [id number] 02/27/24 12:11 02/20/24 02/27/24 14:09 12:04 Wound Center Nurse 2 #9 L Heel -Time 14:10 12:04 -Correct Patient Yes Yes -Correct Side, Site, Position Yes Yes -Correct Procedure Yes Yes -Procedure Performed Yes Yes -Type of Procedure Debridement Debridement -Clinical Debridement Subcutaneous Subcutaneous -Tissue Removed Subcutaneous Subcutaneous -Post Debridement (cm) - Length 1 0.5 -Post Debridement (cm) - Width 1 1.2 -Post Debridement (cm) - Depth 0.6 0.6 -Total Square (Post) (cm) 1 0.60 -Area of Debridement (cm) - Length 1 0.5 -Area of Debridement (cm) - Width 1 1.2 -Total Square (Area) (cm) 1 0.60 -Tunneling No No -Undermining/Tunneling No No -Circular Undermining No No -Wound/Ulcer Outcome Not Healed Not Healed -Ulcer Cleansing Rinsed/ Rinsed/ Irrigated with Irrigated with Saline Saline -Foul Odor after Cleansing No No -Bioengineered Tissue Yes Yes -Type of Bioengineered Tissue Epicord Epicord -Expiration Date 07/12/28 07/12/28 -Product Lot Number [id number] -Percent Used 100 100 -Lot number of Saline Used [id number] -Bleeding Controlled with Pressure Pressure -Treatment Response Procedure Tolerated Well -Offloading No -Debridement - Subq, 1st 20sq cm No No -Apply Skin Sub - 1st 25 sq cm - Feet 1 1 -Epicord (per sq cm) 6 6 Pain Scale: 0-10 Numeric Is Patient Pain Free? Yes Yes - Nurse 3 - General Ulcer D/C NN Start: 02/15/24 11:33 Freq: Status: Active Protocol: Activity Type Activity Date Activity User E-sign Co-sign Detail Recorded Client Recorded Date Recorded By Document 02/15/24 11:33 RB [id number] 02/15/24 11:38 RB Document 02/20/24 14:38 BMF [id number] 02/20/24 14:39 BMF Document 02/25/24 11:02 KW [id number] 02/25/24 11:03 KW Document 02/27/24 12:13 [id number] 02/27/24 12:14 02/15/24 02/20/24 02/25/24 11:33 14:38 11:02 Vital Signs Temperature (97.8 F-99.1 F) 97 F L 98.2 F Temperature Source Temporal Temporal Pulse Rate (60-100) 85 89 Pulse Location Monitor Monitor Respiratory Rate (12-18) 18 18 Respiratory rate source Observation Observation Oxygen Delivery Method Room Air Blood Pressure (90/60-120/80) 134/83 H 137/73 H Blood Pressure Mean (mm Hg) 100 94 Source Monitor Monitor Position Sitting Semi-Fowlers Blood Pressure Location Left Arm Left Arm Pain Scale: 0-10 Numeric Is Patient Pain Free? Yes Yes Yes Wound Care Center Nurse 3 #9 L Heel -Ulcer Cleansing Rinsed/ Soap and Water Irrigated with Saline -Foul Odor after Cleansing No -Primary Dressing Applied Optilok 6.5x10 Aquacel Extra, Optilok 6.5x10 Optilok 6.5x10 -Other Dressing aquacel extra pt own aquacel extra -Primary Dressing Covered/Secured with Dry Gauze & Dry Gauze & Dry Gauze & Roll Gauze, Roll Gauze, Roll Gauze, Secured with Secured with Secured with Tape Tape Tape -Aquacel Extra 1 -Optilok 6.5x10 1 1 1 Right -Lotion applied to leg before compression wrap -Tubular Bandage Double Layer Double Layer Double Layer -Size of Tubigrip Used Size F Size F Size F -Size F ($) 2 2 2 Left -Lotion applied to leg before compression wrap -Multi-Layered Wrap Application Multi-Layer Multi-Layer Multi-Layer Comp - Left ($) Comp - Left ($) Comp - Left ($) Treatment Response Procedure Procedure Tolerated Well Tolerated Well WC - Visit Discharge Discharge Condition Stable Stable Stable Ambulatory Status Ambulatory, Ambulatory, Ambulatory Crutches Crutches Transportation Private Auto Private Auto Medication Reconcilliation completed & No provided to patient/care provider Clinical Summary of Care Provided Yes 02/27/24 12:13 Vital Signs Temperature (97.8 F-99.1 F) Temperature Source Pulse Rate (60-100) Pulse Location Respiratory Rate (12-18) Respiratory rate source Oxygen Delivery Method Blood Pressure (90/60-120/80) Blood Pressure Mean (mm Hg) Source Position Blood Pressure Location Pain Scale: 0-10 Numeric Is Patient Pain Free? Yes Wound Care Center Nurse 3 #9 L Heel -Ulcer Cleansing Not Cleansed -Foul Odor after Cleansing No -Primary Dressing Applied Aquacel Extra, Optilok 6.5x10 -Other Dressing -Primary Dressing Covered/Secured with Dry Gauze & Roll Gauze -Aquacel Extra 1 -Optilok 6.5x10 1 Right -Lotion applied to leg before No compression wrap -Tubular Bandage Double Layer -Size of Tubigrip Used Size F -Size F ($) 2 Left -Lotion applied to leg before No compression wrap -Multi-Layered Wrap Application Multi-Layer Comp - Left ($) Treatment Response WC - Visit Discharge Discharge Condition Stable Ambulatory Status Ambulatory Transportation Private Auto Medication Reconcilliation completed & provided to patient/care provider Clinical Summary of Care Provided Assessment/Plan Assessment/Plan (1) Non-pressure chronic ulcer of left heel and midfoot with fat layer exposed: CODE(S): L97.422 - Non-pressure chronic ulcer of left heel and midfoot with fat layer exposed PLAN: Patient was examined and evaluated. All findings were discussed with the patient. All questions were answered to the patient's satisfaction. Excisional debridement down to and including subcutaneous tissue with a number 5 mm dermal curette to the left heel without incident. Predebridement measurement is 0.4 x 1.0 x 0.3 cm. Postdebridement measurement is 0.5 x 1.2 x 0.6 cm. EpiCord 2.0 x 3.0 cm graft was applied to the left full-thickness ulceration with 100% use. 6th application. The graft site was free and clear of any infection. The wound/skin graft substitute was dressed with nonadherent bandage secured in place with Steri-Strips followed by bolster dressing as well as multilayer compression 3M wrap to the left lower extremity. Patient will continue to be nonweightbearing to left lower extremity. Follow-up at the wound care center with Dr. Rebollar in 1 week. (2) Other specified peripheral vascular diseases: CODE(S): I73.89 - Other specified peripheral vascular diseases
--- NOTE | 2024-02-28 11:10 | WC ---
PHOTO 02/27/24
--- NOTE | 2024-02-28 11:17 | WC ---
PHOTO 02/27/24 LEFT HEEL
[2024-03-03 11:05] VITALS: BP 143/70; PULSE 94; RESP 18; TEMP 35.9; BMI 43.6
[2024-03-07 12:14] VITALS: BP 140/70; PULSE 90; RESP 18; TEMP 36.1; BMI 43.6
[2024-03-12 10:45] VITALS: BP 146/76; PULSE 100; RESP 18; TEMP 35.9; BMI 43.6
--- NOTE | 2024-03-12 11:12 | PCM.WC.PN ---
History of Present Illness Date of Service: 03/12/24 Chief Complaint: Bilateral lower extremity ulcers. History of Wound: Mr. Beltran is a 68-year-old male presenting to the wound care center today from senior living facility for follow-up and evaluation of left heel ulceration. Patient was ultimately seen by an outside provider had surgical intervention and discharged to a SNF for [facility] care. Patient's wound has progressed with conservative treatment with Teena and dressing changes. He did complete oral antibiotics per infectious disease recommendation. Patient is currently living status is at the SNF and then after discharge she will be returning to his van making him homeless which he is comfortable with. He denies trauma. Denies constitutional symptoms. No other pedal complaints at this time. Subjective Subjective Mr. Beltran is a 68-year-old male presenting to wound care center today for follow-up evaluation of full-thickness wound to the left heel with amniotic skin graft substitutes. He has left his multilayer compression dressing clean dry and intact along with the graft. He admits to some working out exercises that he was doing and since then he has been experiencing pain to the left heel. He denies any drainage or strikethrough to the dressing. He does admit to decrease in elevation. Denies trauma. Denies constitutional symptoms. Other. Complaints at this time. Objective Data Objective Data Vital Signs: Vital Signs Temp Pulse Resp BP O2 Del Method 96.6 F L 100 18 146/76 H Room Air 03/12/24 10:45 03/12/24 10:45 03/12/24 10:45 03/12/24 10:45 03/12/24 10:45 Oxygen Delivery Method Room Air Weight: 141.903 kg Body Mass Index (BMI) 43.6 Physical Exam Narrative Vascular: DP and PT pulses are palpable. CFT is brisk. Nonpitting edema appreciated bilateral lower extremity. Skin temperature gradient is warm to warm from proximal ankles to distal digits. Blanchable erythema appreciated to the left heel. Neurological: Light touch intact. Patient response to painful stimuli. Dermatological: Evidence of a subungual hematoma that translated to a full-thickness wound to the left heel measuring 3.0 x 4.5 x 0.4 cm. Mild malodor is appreciated. Negative probe to bone. Excisional debridement down to and including subcutaneous tissue with a #15 blade and pickup to the left heel without incident. Predebridement measurement was eschar. Postdebridement measurement is 3.0 x 4.5 x 0.4 cm. Musculoskeletal: Muscle strength 5 out of 5 in all quadrants bilateral. Moderate palpatory tenderness appreciated left heel. Palpable bogginess appreciated to the left heel. No crepitus was palpated. Debridement Note Debridement Note Debridement Free Text: Excisional debridement down to and including subcutaneous tissue with a #15 blade and pickup to the left heel without incident. Predebridement measurement was eschar. Postdebridement measurement is 3.0 x 4.5 x 0.4 cm. Post-Debridement Measurements and Additional Note: Post-Debridement Measurements/Treatment - Nurse 1 - General Ulcer Assessment Start: 02/15/24 11:33 Freq: Status: Active Protocol: [email or web address].[email or web address] Activity Type Activity Date Activity User E-sign Co-sign Detail Recorded Client Recorded Date Recorded By Document 02/15/24 11:33 RB [id number] 02/15/24 11:38 RB Document 02/20/24 13:37 KW [id number] 02/20/24 13:48 KW Document 02/25/24 11:02 KW [id number] 02/25/24 11:03 KW Document 02/27/24 11:34 KW [id number] 02/27/24 11:48 KW Document 03/03/24 11:05 KW [id number] 03/03/24 11:06 KW Edit Result 03/03/24 11:05 KW (1) [id number] 03/03/24 11:15 KW Document 03/07/24 12:14 RB [id number] 03/07/24 12:16 RB Document 03/12/24 10:45 KW [id number] 03/12/24 10:56 KW (1) Temperature (97.8 F-99.1 F) => 96.6 F L Pulse Rate (60-100) => 94 Blood Pressure (90/60-120/80) => 143/70 H Blood Pressure Mean (mm Hg) => 94 02/15/24 02/20/24 02/25/24 11:33 13:37 11:02 - Today's Visit Information Type of service Nurse-only Follow-up Visit Nurse-only Visit (Physician/CRISIS WORKER Visit ) Arrival Mode Ambulatory Ambulatory, Ambulatory, Crutches Crutches Transfer Assistance None Patient Identification Verified (Name & Yes Yes Yes ) Patient Requires Transmission-Based No Precautions Height and Weight Body Mass Index (BMI) 43.6 43.6 43.6 BMI Classification Obese Obese Obese Vital Signs Temperature (97.8 F-99.1 F) 97 F L 96.8 F L 98.2 F Temperature Source Temporal Temporal Temporal Pulse Rate (60-100) 85 90 89 Pulse Location Monitor Monitor Monitor Respiratory Rate (12-18) 18 18 18 Respiratory rate source Observation Observation Observation Oxygen Delivery Method Room Air Room Air Blood Pressure (90/60-120/80) 134/83 H 146/89 H 137/73 H Blood Pressure Mean (mm Hg) 100 108 94 Source Monitor Monitor Monitor Position Sitting Semi-Fowlers Semi-Fowlers Blood Pressure Location Left Arm Left Arm Left Arm History Since Last Visit- (Skip if this is Patient's initial visit) Have you changed medications since your No No No last visit? Any new allergies or adverse reactions No No No Had a fall/change in ADL's that may No No No increase risk of falls Signs or symptoms of abuse and/or No No No neglect since last visit Have you been in the hospital since your No No No last visit? Has dressing in place as prescribed Yes Yes Yes Has compression in place as prescribed Yes Yes Yes Has offloadiing in place as prescribed No Yes Yes Experienced any changes in pain level or No No No management Left Footwear Surgical Shoe Surgical Shoe with pressure with pressure relief insole relief insole Right Footwear Surgical Shoe Surgical Shoe with pressure with pressure relief insole relief insole Pain Scale: 0-10 Numeric Is Patient Pain Free? Yes Yes Yes 02/27/24 03/03/24 03/07/24 11:34 11:05 12:14 - Today's Visit Information Type of service Follow-up Visit Nurse-only Nurse-only (Physician/CRISIS WORKER Visit Visit ) Arrival Mode Ambulatory, Ambulatory, Ambulatory, Crutches Crutches Crutches Transfer Assistance None Patient Identification Verified (Name & Yes Yes Yes ) Patient Requires Transmission-Based No Precautions Height and Weight Body Mass Index (BMI) 43.6 43.6 43.6 BMI Classification Obese Obese Obese Vital Signs Temperature (97.8 F-99.1 F) 96.0 F L 96.6 F L 97 F L Temperature Source Temporal Oral Temporal Pulse Rate (60-100) 87 94 90 Pulse Location Monitor Monitor Monitor Respiratory Rate (12-18) 18 18 18 Respiratory rate source Observation Observation Observation Oxygen Delivery Method Room Air Room Air Blood Pressure (90/60-120/80) 143/85 H 143/70 H 140/70 H Blood Pressure Mean (mm Hg) 104 94 93 Source Monitor Monitor Monitor Position Semi-Fowlers Semi-Fowlers Sitting Blood Pressure Location Left Arm Left Arm Left Arm History Since Last Visit- (Skip if this is Patient's initial visit) Have you changed medications since your No No last visit? Any new allergies or adverse reactions No No Had a fall/change in ADL's that may No No increase risk of falls Signs or symptoms of abuse and/or No No neglect since last visit Have you been in the hospital since your No No last visit? Has dressing in place as prescribed Yes Yes Has compression in place as prescribed Yes Yes Has offloadiing in place as prescribed N/A Yes Experienced any changes in pain level or No No management Left Footwear Surgical Shoe Surgical Shoe with pressure with pressure relief insole relief insole Right Footwear Surgical Shoe Surgical Shoe with pressure with pressure relief insole relief insole Pain Scale: 0-10 Numeric Is Patient Pain Free? Yes Yes Yes 03/12/24 10:45 WC - Today's Visit Information Type of service Follow-up Visit (Physician/CRISIS WORKER ) Arrival Mode Ambulatory, Crutches Transfer Assistance Patient Identification Verified (Name & Yes ) Patient Requires Transmission-Based Precautions Height and Weight Body Mass Index (BMI) 43.6 BMI Classification Obese Vital Signs Temperature (97.8 F-99.1 F) 96.6 F L Temperature Source Temporal Pulse Rate (60-100) 100 Pulse Location Monitor Respiratory Rate (12-18) 18 Respiratory rate source Observation Oxygen Delivery Method Room Air Blood Pressure (90/60-120/80) 146/76 H Blood Pressure Mean (mm Hg) 99 Source Monitor Position Sitting Blood Pressure Location Right Arm History Since Last Visit- (Skip if this is Patient's initial visit) Have you changed medications since your No last visit? Any new allergies or adverse reactions No Had a fall/change in ADL's that may No increase risk of falls Signs or symptoms of abuse and/or No neglect since last visit Have you been in the hospital since your No last visit? Has dressing in place as prescribed Yes Has compression in place as prescribed Yes Has offloadiing in place as prescribed Yes Experienced any changes in pain level or Yes management Left Footwear Right Footwear Pain Scale: 0-10 Numeric Is Patient Pain Free? Yes WC - Nurse 1 - General Ulcer Measurement Start: 02/15/24 11:33 Freq: Status: Active Protocol: Activity Type Activity Date Activity User E-sign Co-sign Detail Recorded Client Recorded Date Recorded By Document 02/15/24 11:33 RB [id number] 02/15/24 11:38 RB Document 02/20/24 13:37 KW [id number] 02/20/24 13:48 KW Document 02/27/24 11:34 KW [id number] 02/27/24 11:48 KW Document 03/07/24 12:14 RB [id number] 03/07/24 12:16 RB Document 03/12/24 10:45 KW [id number] 03/12/24 10:56 KW 02/15/24 02/20/24 02/27/24 11:33 13:37 11:34 Wound Center Nurse 1 #10 Left medial heel -Current Size (cm) - Length -Current Size (cm) - Width -Current Size (cm) - Depth -Total Square Cm -Date of Last Picture (Recall this field) -Photo Taken -Epithelialization -Circular Undermining -Exudate Amt -Exudate Type -Wound Margin -Granulation Amt -Granulation Quality -Slough/Fibrin -Texture (Marva-wound Skin Appearance) -Moisture (Marva-wound Skin Appearance) -Color (Marva-wound Skin Appearance) -Temperature (Marva-wound Skin Appearance) -Ulcer Cleansing -Foul Odor after Cleansing -Anesthetic Used #9 L Heel -Combined with other wound No -Current Size (cm) - Length 2 1.3 -Current Size (cm) - Width 1.5 0.8 -Current Size (cm) - Depth 0.4 0.3 -Total Square Cm 3.0 1.04 -Date of Last Picture (Recall this 02/20/24 02/27/24 field) -Photo Taken -Tunneling No -Undermining/Tunneling No -Circular Undermining No -Exudate Amt Medium Medium Small -Exudate Type Serosanguineous Serosanguineous Serosanguineous -Wound Margin Distinct, Distinct, Outline Outline Attached Attached -Granulation Amt Large (67-100%) Small (1-33%) -Granulation Quality [place] -Necrosis Amt Medium (34-66%) Large (67-100%) -Necrotic Tissue Type Adherent Slough Adherent Slough -Texture (Marva-wound Skin Appearance) Assessed Assessed,Callus -Moisture (Marva-wound Skin Appearance) Assessed Assessed,Dry/ Scaly -Color (Marva-wound Skin Appearance) Assessed Assessed -Temperature (Marva-wound Skin No Abnormality No Abnormality Appearance) (Pt Warm) (Pt Warm) -Tenderness on Palpation (Marva-wound No No Skin Appearance) -Ulcer Cleansing Soap and Water Soap and Water -Foul Odor after Cleansing No No -Anesthetic Used 5% Lidocaine 5% Lidocaine Gel Gel -Wound Comment(s) epifix and wouns veil/ steri strips left in place Lower Limb Edema Present Yes Left Calf (cm) 47 Left Ankle (cm) 33 03/07/24 03/12/24 12:14 10:45 Wound Center Nurse 1 #10 Left medial heel -Current Size (cm) - Length 0.2 -Current Size (cm) - Width 0.7 -Current Size (cm) - Depth 0.5 -Total Square Cm 0.14 -Date of Last Picture (Recall this 03/12/24 field) -Photo Taken Yes -Epithelialization None Present -Circular Undermining Yes -Exudate Amt Large -Exudate Type Serosanguineous -Wound Margin Distinct, Outline Attached -Granulation Amt Small (1-33%) -Granulation Quality [place] -Slough/Fibrin No -Texture (Marva-wound Skin Appearance) Assessed -Moisture (Marva-wound Skin Appearance) Assessed -Color (Marva-wound Skin Appearance) Assessed -Temperature (Marva-wound Skin No Abnormality Appearance) (Pt Warm) -Ulcer Cleansing Soap and Water -Foul Odor after Cleansing No -Anesthetic Used 5% Lidocaine Gel #9 L Heel -Combined with other wound -Current Size (cm) - Length 0.1 -Current Size (cm) - Width 0.1 -Current Size (cm) - Depth 0.1 -Total Square Cm 0.01 -Date of Last Picture (Recall this 03/12/24 field) -Photo Taken Yes -Tunneling -Undermining/Tunneling -Circular Undermining -Exudate Amt Small -Exudate Type Serosanguineous -Wound Margin -Granulation Amt -Granulation Quality Red -Necrosis Amt -Necrotic Tissue Type -Texture (Marva-wound Skin Appearance) Assessed -Moisture (Marva-wound Skin Appearance) Assessed -Color (Marva-wound Skin Appearance) Assessed -Temperature (Marva-wound Skin No Abnormality Appearance) (Pt Warm) -Tenderness on Palpation (Marva-wound Skin Appearance) -Ulcer Cleansing -Foul Odor after Cleansing -Anesthetic Used -Wound Comment(s) Lower Limb Edema Present Yes Left Calf (cm) 47 Left Ankle (cm) 32.5 WC - Nurse 2 - General Ulcer CM Notes Start: 02/15/24 11:33 Freq: Status: Active Protocol: Activity Type Activity Date Activity User E-sign Co-sign Detail Recorded Client Recorded Date Recorded By Document 02/20/24 14:09 [id number] 02/20/24 14:15 Document 02/27/24 12:04 [id number] 02/27/24 12:11 Document 03/12/24 11:05 [id number] 03/12/24 11:10 02/20/24 02/27/24 03/12/24 14:09 12:04 11:05 Wound Center Nurse 2 #10 Left medial heel -Time 11:06 -Correct Patient Yes -Correct Side, Site, Position Yes -Correct Procedure Yes -Procedure Performed Yes -Type of Procedure Debridement -Clinical Debridement Subcutaneous -Tissue Removed Subcutaneous -Post Debridement (cm) - Length 3.0 -Post Debridement (cm) - Width 4.5 -Post Debridement (cm) - Depth 0.4 -Total Square (Post) (cm) 13.50 -Area of Debridement (cm) - Length 3.0 -Area of Debridement (cm) - Width 4.5 -Total Square (Area) (cm) 13.50 -Tunneling No -Undermining/Tunneling No -Circular Undermining No -Wound/Ulcer Outcome Not Healed -Ulcer Cleansing Rinsed/ Irrigated with Saline -Foul Odor after Cleansing No -Bioengineered Tissue No -Bleeding Controlled with Pressure -Treatment Response Procedure Tolerated Well -Offloading No -Debridement - Subq, 1st 20sq cm Yes #9 L Heel -Time 14:10 12:04 11:09 -Correct Patient Yes Yes Yes -Correct Side, Site, Position Yes Yes Yes -Correct Procedure Yes Yes Yes -Procedure Performed Yes Yes Yes -Type of Procedure Debridement Debridement Debridement -Clinical Debridement Subcutaneous Subcutaneous Subcutaneous -Tissue Removed Subcutaneous Subcutaneous Subcutaneous -Post Debridement (cm) - Length 1 0.5 3.0 -Post Debridement (cm) - Width 1 1.2 4.5 -Post Debridement (cm) - Depth 0.6 0.6 0.4 -Total Square (Post) (cm) 1 0.60 13.50 -Area of Debridement (cm) - Length 1 0.5 3.0 -Area of Debridement (cm) - Width 1 1.2 4.5 -Total Square (Area) (cm) 1 0.60 13.50 -Tunneling No No No -Undermining/Tunneling No No No -Circular Undermining No No No -Wound/Ulcer Outcome Not Healed Not Healed Not Healed -Ulcer Cleansing Rinsed/ Rinsed/ Rinsed/ Irrigated with Irrigated with Irrigated with Saline Saline Saline -Foul Odor after Cleansing No No No -Bioengineered Tissue Yes Yes No -Type of Bioengineered Tissue Epicord Epicord -Expiration Date 07/12/28 07/12/28 -Product Lot Number [id number] -Percent Used 100 100 -Lot number of Saline Used [id number] -Bleeding Controlled with Pressure Pressure Pressure -Treatment Response Procedure Procedure Tolerated Well Tolerated Well -Offloading No -Debridement - Subq, 1st 20sq cm No No Yes -Apply Skin Sub - 1st 25 sq cm - Feet 1 1 -Epicord (per sq cm) 6 6 Pain Scale: 0-10 Numeric Is Patient Pain Free? Yes Yes Yes WC - Nurse 3 - General Ulcer D/C NN Start: 02/15/24 11:33 Freq: Status: Active Protocol: Activity Type Activity Date Activity User E-sign Co-sign Detail Recorded Client Recorded Date Recorded By Document 02/15/24 11:33 RB [id number] 02/15/24 11:38 RB Document 02/20/24 14:38 BMF [id number] 02/20/24 14:39 BMF Document 02/25/24 11:02 KW [id number] 02/25/24 11:03 KW Document 02/27/24 12:13 GM [id number] 02/27/24 12:14 GM Document 03/03/24 11:05 KW [id number] 03/03/24 11:06 KW Edit Result 03/03/24 11:05 KW (1) [id number] 03/03/24 11:15 KW Document 03/07/24 12:14 RB [id number] 03/07/24 12:16 RB Edit Result 03/07/24 12:14 RB (2) [id number] 03/11/24 10:30 RB (1) Temperature (97.8 F-99.1 F) => 96.6 F L Pulse Rate (60-100) => 94 Blood Pressure (90/60-120/80) => 143/70 H Blood Pressure Mean (mm Hg) => 94 (2) Left - Multi-Layered Wrap Application Multi-Layer Comp - => Multi-Layer Comp - Right ($) => Left ($) 02/15/24 02/20/24 02/25/24 11:33 14:38 11:02 Vital Signs Temperature (97.8 F-99.1 F) 97 F L 98.2 F Temperature Source Temporal Temporal Pulse Rate (60-100) 85 89 Pulse Location Monitor Monitor Respiratory Rate (12-18) 18 18 Respiratory rate source Observation Observation Oxygen Delivery Method Room Air Blood Pressure (90/60-120/80) 134/83 H 137/73 H Blood Pressure Mean (mm Hg) 100 94 Source Monitor Monitor Position Sitting Semi-Fowlers Blood Pressure Location Left Arm Left Arm Pain Scale: 0-10 Numeric Is Patient Pain Free? Yes Yes Yes Wound Care Center Nurse 3 #9 L Heel -Ulcer Cleansing Rinsed/ Soap and Water Irrigated with Saline -Foul Odor after Cleansing No -Primary Dressing Applied Optilok 6.5x10 Aquacel Extra, Optilok 6.5x10 Optilok 6.5x10 -Other Dressing aquacel extra pt own aquacel extra -Primary Dressing Covered/Secured with Dry Gauze & Dry Gauze & Dry Gauze & Roll Gauze, Roll Gauze, Roll Gauze, Secured with Secured with Secured with Tape Tape Tape -Aquacel Extra 1 -Optilok 6.5x10 1 1 1 Right -Lotion applied to leg before compression wrap -Tubular Bandage Double Layer Double Layer Double Layer -Size of Tubigrip Used Size F Size F Size F -Size F ($) 2 2 2 Left -Lotion applied to leg before compression wrap -Multi-Layered Wrap Application Multi-Layer Multi-Layer Multi-Layer Comp - Left ($) Comp - Left ($) Comp - Left ($) Treatment Response Procedure Procedure Tolerated Well Tolerated Well WC - Visit Discharge Discharge Condition Stable Stable Stable Ambulatory Status Ambulatory, Ambulatory, Ambulatory Crutches Crutches Transportation Private Auto Private Auto Medication Reconcilliation completed & No provided to patient/care provider Clinical Summary of Care Provided Yes 02/27/24 03/03/24 03/07/24 12:13 11:05 12:14 Vital Signs Temperature (97.8 F-99.1 F) 96.6 F L 97 F L Temperature Source Oral Temporal Pulse Rate (60-100) 94 90 Pulse Location Monitor Monitor Respiratory Rate (12-18) 18 18 Respiratory rate source Observation Observation Oxygen Delivery Method Room Air Blood Pressure (90/60-120/80) 143/70 H 140/70 H Blood Pressure Mean (mm Hg) 94 93 Source Monitor Monitor Position Semi-Fowlers Sitting Blood Pressure Location Left Arm Left Arm Pain Scale: 0-10 Numeric Is Patient Pain Free? Yes Yes Yes Wound Care Center Nurse 3 #9 L Heel -Ulcer Cleansing Not Cleansed Soap and Water -Foul Odor after Cleansing No -Primary Dressing Applied Aquacel Extra, Optilok 6.5x10 Aquacel Extra, Optilok 6.5x10 Optilok 6.5x10 -Other Dressing pt own aquacel extra -Primary Dressing Covered/Secured with Dry Gauze & Dry Gauze & Dry Gauze & Roll Gauze Roll Gauze, Roll Gauze, Secured with Secured with Tape Tape -Aquacel Extra 1 1 -Optilok 6.5x10 1 1 1 Right -Lotion applied to leg before No compression wrap -Tubular Bandage Double Layer Double Layer Double Layer -Size of Tubigrip Used Size F Size F Size F -Size F ($) 2 2 2 Left -Lotion applied to leg before No compression wrap -Multi-Layered Wrap Application Multi-Layer Multi-Layer Multi-Layer Comp - Left ($) Comp - Left ($) Comp - Left ($) Treatment Response Procedure Tolerated Well WC - Visit Discharge Discharge Condition Stable Stable Stable Ambulatory Status Ambulatory Ambulatory, Ambulatory, Crutches Crutches Transportation Private Auto Private Auto Private Auto Medication Reconcilliation completed & No No provided to patient/care provider Clinical Summary of Care Provided Yes Yes Assessment/Plan Assessment/Plan (1) Non-pressure chronic ulcer of left heel and midfoot with fat layer exposed: CODE(S): L97.422 - Non-pressure chronic ulcer of left heel and midfoot with fat layer exposed PLAN: Patient was examined and evaluated. All findings were discussed with the patient. All questions were answered to the patient's satisfaction. Excisional debridement down to and including subcutaneous tissue with a #15 blade and pickup to the left heel without incident. Predebridement measurement was eschar. Postdebridement measurement is 3.0 x 4.5 x 0.4 cm. The left heel was dressed with Betadine soaked gauze dry sterile dressing and a multilayer 3M wrap was applied to left lower extremity. Culture taken of the left heel. Patient will be started on ciprofloxacin 750 mg twice daily for 2 weeks. Will adjust antibiotics as culture and sensitivity returns. We will hold off on amniotic skin graft substitute for 1 week. Recommended the patient to present to the emergency department for evaluation and possible admission for surgical washout and he declined at this time. I educated the patient that if he notices signs or symptoms of worsening infection he is to present to [facility] for evaluation and possible admission under medicine and consult Dr. Rebollar for surgical intervention. Patient will continue to be nonweightbearing to left lower extremity. Patient will follow-up with Dr. Fonseca in 1 week and nursing visits prior to doctor follow-up. Follow-up at the wound care center with Dr. Rebollar in 2 week. (2) Other specified peripheral vascular diseases: CODE(S): I73.89 - Other specified peripheral vascular diseases
--- NOTE | 2024-03-13 09:54 | WC ---
PHOTO 03/12/24 LEFT HEEL
--- NOTE | 2024-03-13 10:04 | WC ---
PHOTO 03/12/24 LEFT HEEL
== END 2024-03-13 23:59 | disposition home or self-care (01) ==
LOC: WC 10:30
PROVIDERS: Referring Provider Podiatrist; Visit Provider Podiatrist Foot & Ankle Surgery
DX: L97.422 Non-pressure chronic ulcer of left heel and midfoot with fat layer exposed (principal); I73.89 Other specified peripheral vascular diseases
CPT/HCPCS: 11042; 15275; 29581; 87070; 87075; 87077; 87186; 87205; Q4187

== ENCOUNTER 2024-04-09 11:15 | Outpatient (RCR) | payer MEDICARE, MEDICAID, SELFPAY ==
[2024-03-14 00:20] VITALS: BP 150/86; PULSE 86; RESP 20; TEMP 36.3; BMI 43.6
[2024-03-14 11:23] VITALS: BP 142/77; PULSE 80; RESP 18; TEMP 35.5; BMI 43.6
--- NOTE | 2024-03-18 09:07 | WC ---
Addendum entered by Carley Rosenberg 03/19/24 15:18: Pt came in today as a nurse visit, refused to see another provider. Stated his pain has decreased in foot and has stopped Cipro and will start Augmentin. I advised and explained again with his infection it is in his best interest to be seen, he continued to decline. Drainage was odorous, moderate amount of serosanguineous drainage on his superabsorbent pad. Wound was washed and dressed as it has been ordered, Betadine gauze covered with superabsorbent pad and wrapped with a 3M. Original Note: Left a message with Mike letting him know that the wound culture came back and was not sensitive to Cipro that he started last week. Advised patient to stop the Cipro and to start Augmentin that was sent in electronically by Dr Fonseca after reviewing his culture result. Patient was also highly encouraged to reschedule a visit with another provider this week since he cancelled his appt today with Dr Fonseca which was a courtesy visit. Left him Dulce's ext to reschedule.
[2024-03-19 14:54] VITALS: BP 134/68; PULSE 95; RESP 18; TEMP 36.6; BMI 43.6
[2024-03-24 11:16] VITALS: RESP 16; TEMP 36.5; BMI 43.6
[2024-03-26 11:11] VITALS: BP 154/76; PULSE 107; RESP 18; TEMP 37.2; BMI 43.6
--- NOTE | 2024-03-26 11:51 | PCM.WC.PN ---
History of Present Illness Date of Service: 03/26/24 Chief Complaint: Bilateral lower extremity ulcers. History of Wound: Mr. Beltran is a 68-year-old male presenting [facility] for follow-up and evaluation of left heel ulceration. Patient was ultimately seen by an outside provider had surgical intervention and discharged to a SNF for [id number] care. Patient's wound has progressed with conservative treatment with Teena and dressing changes. He did complete oral antibiotics per infectious disease recommendation. Patient is currently living status is at the SNF and then after discharge she will be returning to his van making him homeless which he is comfortable with. He denies trauma. Denies constitutional symptoms. No other pedal complaints at this time. Subjective Subjective Mr. Beltran is a 68-year-old male presenting with care center today for follow-up evaluation of full-thickness wound to the left heel. Patient has been taking his antibiotics as instructed. He notices improvement with drainage and pain to the left heel. He is elevating as instructed. He has partial weightbearing to toes only to left lower extremity with assistive crutches. He is doing well. Denies trauma. Denies constitutional symptoms. No other pedal complaints at this time. Objective Data Objective Data Vital Signs: Vital Signs Temp Pulse Resp BP O2 Del Method 98.9 F 107 H 18 154/76 H Room Air 03/26/24 11:11 03/26/24 11:11 03/26/24 11:11 03/26/24 11:11 03/26/24 11:11 Oxygen Delivery Method Room Air Weight: 141.903 kg Body Mass Index (BMI) 43.6 Physical Exam Narrative Vascular: DP and PT pulses are palpable. CFT is brisk. Nonpitting edema appreciated left lower extremity. +1 pitting edema appreciated right lower extremity. Skin temperature gradient is warm to warm from proximal ankle to distal digits. Neurological: Light touch intact. Patient response to painful stimuli. Dermatological: Evidence of full-thickness ulceration to left heel measuring 2.2 x 1.0 x 0.1 cm. No undermining noted. Maceration present secondary to drainage, improved. Excisional debridement down to and including subcutaneous tissue with a number 5 mm dermal curette to the left heel without incident. Predebridement measurement is 2.0 x 0.8 x 0.1 cm. Postdebridement measurement is 2.2 x 1.0 x 0.1 cm. EpiCord 2.0 x 3.0 cm graft was applied to the left full-thickness ulceration with 100% use. 7th application. The graft site was free and clear of any infection. The wound/skin graft substitute was dressed with nonadherent bandage secured in place with Steri-Strips followed by bolster dressing as well as multilayer compression 3M wrap to the left lower extremity. Musculoskeletal: Muscle strength 5-5 in all quadrants bilateral. Mild pain to palpation to the full-thickness ulceration left heel. No pain with calf compression. Debridement Note Debridement Note Debridement Free Text: Excisional debridement down to and including subcutaneous tissue with a number 5 mm dermal curette to the left heel without incident. Predebridement measurement is 2.0 x 0.8 x 0.1 cm. Postdebridement measurement is 2.2 x 1.0 x 0.1 cm. EpiCord 2.0 x 3.0 cm graft was applied to the left full-thickness ulceration with 100% use. 7th application. The graft site was free and clear of any infection. The wound/skin graft substitute was dressed with nonadherent bandage secured in place with Steri-Strips followed by bolster dressing as well as multilayer compression 3M wrap to the left lower extremity. Post-Debridement Measurements and Additional Note: Post-Debridement Measurements/Treatment - Nurse 1 - General Ulcer Assessment Start: 03/14/24 11:23 Freq: Status: Active Protocol: PHOEBE.LOWEXT Activity Type Activity Date Activity User E-sign Co-sign Detail Recorded Client Recorded Date Recorded By Document 03/14/24 11:23 RB [id number] 03/14/24 11:26 RB Document 03/19/24 14:54 KW [id number] 03/19/24 15:06 KW Document 03/24/24 11:16 BM [id number] 03/24/24 11:23 BMF Document 03/26/24 11:11 [id number] 03/26/24 11:20 GM 03/14/24 03/19/24 03/24/24 11:23 14:54 11:16 - Today's Visit Information Type of service Nurse-only Nurse-only Nurse-only Visit Visit Visit Arrival Mode Ambulatory, Ambulatory, Ambulatory, Crutches Crutches Crutches Transfer Assistance None None Patient Identification Verified (Name & Yes Yes Yes ) Patient Requires Transmission-Based No No Precautions Height and Weight Body Mass Index (BMI) 43.6 43.6 43.6 BMI Classification Obese Obese Obese Vital Signs Temperature (97.8 F-99.1 F) 96 F L 97.8 F 97.7 F L Temperature Source Temporal Temporal Temporal Pulse Rate (60-100) 80 95 Pulse Location Monitor Monitor Respiratory Rate (12-18) 18 18 16 Respiratory rate source Observation Observation Observation Oxygen Delivery Method Room Air Room Air Blood Pressure (90/60-120/80) 142/77 H 134/68 H Blood Pressure Mean (mm Hg) 98 90 Source Monitor Monitor Position Semi-Fowlers Semi-Fowlers Blood Pressure Location Left Arm Left Arm History Since Last Visit- (Skip if this is Patient's initial visit) Have you changed medications since your No Yes No last visit? Any new allergies or adverse reactions No No No Had a fall/change in ADL's that may No No No increase risk of falls Signs or symptoms of abuse and/or No No No neglect since last visit Have you been in the hospital since your No No No last visit? Has dressing in place as prescribed Yes Yes Yes Has compression in place as prescribed Yes Yes Yes Has offloadiing in place as prescribed No Yes N/A Experienced any changes in pain level or No No No management Left Footwear Surgical Shoe Surgical Shoe Surgical Shoe with pressure with pressure with pressure relief insole relief insole relief insole Right Footwear Surgical Shoe Surgical Shoe Surgical Shoe with pressure with pressure with pressure relief insole relief insole relief insole Pain Scale: 0-10 Numeric Is Patient Pain Free? 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[employer] ) Arrival Mode Ambulatory, Crutches Transfer Assistance Patient Identification Verified (Name & Yes ) Patient Requires Transmission-Based Precautions Height and Weight Body Mass Index (BMI) 43.6 BMI Classification Obese Vital Signs Temperature (97.8 F-99.1 F) 98.9 F Temperature Source Temporal Pulse Rate (60-100) 107 H Pulse Location Monitor Respiratory Rate (12-18) 18 Respiratory rate source Observation Oxygen Delivery Method Room Air Blood Pressure (90/60-120/80) 154/76 H Blood Pressure Mean (mm Hg) 102 Source Monitor Position Sitting Blood Pressure Location Left Arm History Since Last Visit- (Skip if this is Patient's initial visit) Have you changed medications since your No last visit? Any new allergies or adverse reactions No Had a fall/change in ADL's that may No increase risk of falls Signs or symptoms of abuse and/or No neglect since last visit Have you been in the hospital since your No last visit? Has dressing in place as prescribed Yes Has compression in place as prescribed Yes Has offloadiing in place as prescribed N/A Experienced any changes in pain level or No management Left Footwear Surgical Shoe with pressure relief insole Right Footwear Surgical Shoe with pressure relief insole Pain Scale: 0-10 Numeric Is Patient Pain Free? Yes L heel -Description -Intensity -Duration (hours) -Pain Behavior -Pain Aggravating Factors -Alleviating Factors/Interventions WC - Nurse 1 - General Ulcer Measurement Start: 03/14/24 11:23 Freq: Status: Active Protocol: Activity Type Activity Date Activity User E-sign Co-sign Detail Recorded Client Recorded Date Recorded By Document 03/14/24 11:23 [id number] 03/14/24 11:26 RB Document 03/24/24 11:16 [facility] [id number] 03/24/24 11:23 [facility] Document 03/26/24 11:11 [id number] 03/26/24 11:20 03/14/24 03/24/24 03/26/24 11:23 11:16 11:11 Wound Center Nurse 1 #9 L Heel -Current Size (cm) - Length 1 -Current Size (cm) - Width 1.8 -Current Size (cm) - Depth 0.1 -Total Square Cm 1.8 -Date of Last Picture (Recall this 03/26/24 field) -Tunneling No -Undermining/Tunneling No -Circular Undermining No -Exudate Amt Medium Medium -Exudate Type Serosanguineous Serosanguineous -Wound Margin Distinct, Distinct, Outline Outline Attached Attached -Granulation Amt Large (67-100%) -Granulation Quality Red -Slough/Fibrin Yes -Necrosis Amt Small (1-33%) -Necrotic Tissue Type Adherent Slough -Structure Exposed N/A -Texture (Marva-wound Skin Appearance) Localized Edema Assessed -Moisture (Marva-wound Skin Appearance) Assessed Assessed,Dry/ Scaly -Color (Marva-wound Skin Appearance) Erythema Assessed -Temperature (Marva-wound Skin No Abnormality No Abnormality Appearance) (Pt Warm) (Pt Warm) -Tenderness on Palpation (Marva-wound No No Skin Appearance) -Ulcer Cleansing Wound Cleanser Soap and Water -Foul Odor after Cleansing No No -Anesthetic Used 5% Lidocaine Gel Lower Limb Edema Present Yes Yes Left Calf (cm) 46.2 46.5 47 Left Ankle (cm) 33.5 32.7 33.5 WC - Nurse 2 - General Ulcer CM Notes Start: 03/14/24 11:23 Freq: Status: Active Protocol: Activity Type Activity Date Activity User E-sign Co-sign Detail Recorded Client Recorded Date Recorded By Document 03/26/24 11:36 TIA [id number] 03/26/24 11:42 TIA 03/26/24 11:36 Wound Center Nurse 2 #9 L Heel -Time 11:36 -Correct Patient Yes -Correct Side, Site, Position Yes -Correct Procedure Yes -Procedure Performed Yes -Type of Procedure Debridement -Clinical Debridement Subcutaneous -Tissue Removed Subcutaneous -Post Debridement (cm) - Length 2.2 -Post Debridement (cm) - Width 1 -Post Debridement (cm) - Depth 0.1 -Total Square (Post) (cm) 2.2 -Area of Debridement (cm) - Length 2.2 -Area of Debridement (cm) - Width 1 -Total Square (Area) (cm) 2.2 -Tunneling No -Undermining/Tunneling No -Circular Undermining No -Wound/Ulcer Outcome Not Healed -Ulcer Cleansing Rinsed/ Irrigated with Saline -Foul Odor after Cleansing No -Bioengineered Tissue Yes -Type of Bioengineered Tissue Epicord -Expiration Date 07/12/28 -Product Lot Number [id number] -Percent Used 100 -Lot number of Saline Used [id number] -Bleeding Controlled with Pressure -Treatment Response Procedure Tolerated Well -Offloading No -Debridement - Subq, 1st 20sq cm No -Apply Skin Sub - 1st 25 sq cm - Feet 1 -Epicord (per sq cm) 6 Pain Scale: 0-10 Numeric Is Patient Pain Free? Yes - Nurse 3 - General Ulcer D/C NN Start: 03/14/24 11:23 Freq: Status: Active Protocol: Activity Type Activity Date Activity User E-sign Co-sign Detail Recorded Client Recorded Date Recorded By Document 03/14/24 11:23 RB [id number] 03/14/24 11:26 RB Document 03/19/24 14:54 KW [id number] 03/19/24 15:06 KW Document 03/24/24 11:16 BMF [id number] 03/24/24 11:23 BMF Edit Result 03/24/24 11:16 BMF (1) [id number] 03/25/24 13:56 KW (1) Left - Multi-Layered Wrap Application Multi-Layer Comp - => Multi-Layer Comp - Right ($) => Left ($) 03/14/24 03/19/24 03/24/24 11:23 14:54 11:16 Vital Signs Temperature (97.8 F-99.1 F) 96 F L 97.8 F 97.7 F L Temperature Source Temporal Temporal Temporal Pulse Rate (60-100) 80 95 Pulse Location Monitor Monitor Respiratory Rate (12-18) 18 18 16 Respiratory rate source Observation Observation Observation Oxygen Delivery Method Room Air Room Air Blood Pressure (90/60-120/80) 142/77 H 134/68 H Blood Pressure Mean (mm Hg) 98 90 Source Monitor Monitor Position Semi-Fowlers Semi-Fowlers Blood Pressure Location Left Arm Left Arm Pain Scale: 0-10 Numeric Is Patient Pain Free? No Yes Yes L heel -Description Aching -Intensity 4 -Duration (hours) Acute -Pain Behavior Guarding, Withdrawal from Touch -Pain Aggravating Factors Exercise/ Activity -Alleviating Factors/Interventions None Wound Care Center Nurse 3 #9 L Heel -Ulcer Cleansing Soap and Water Soap and Water -Foul Odor after Cleansing No -Primary Dressing Applied Optilok 6.5x10 Optilok 6.5x10 Optilok 6.5x10 -Other Dressing betadine gauze betadine gauze betadine gauze -Primary Dressing Covered/Secured with Dry Gauze & Dry Gauze & Dry Gauze & Roll Gauze, Roll Gauze, Roll Gauze, Secured with Secured with Secured with Tape Tape Tape -Optilok 6.5x10 1 1 1 -Wound Comment(s) NOTED TO HAVE A FISSURE TO L MEDIAL HEEL- NO DRAINAGE. SURROUNDING ECCHYMOSIS. PT DENIES INJURY. SHANE PETIT IN TO ASSESS. BETADINE TO THIS AREA ALSO AND PADDED WELL W/ ABD. Right -Tubular Bandage Double Layer Double Layer Double Layer -Size of Tubigrip Used Size F Size F Size F -Size F ($) 2 2 2 Left -Multi-Layered Wrap Application Multi-Layer Multi-Layer Multi-Layer Comp - Left ($) Comp - Left ($) Comp - Left ($) Treatment Response Procedure Procedure Tolerated Well Tolerated Well WC - Visit Discharge Discharge Condition Stable Stable Stable Ambulatory Status Ambulatory, Ambulatory, Ambulatory, Crutches Crutches Crutches Transportation Private Auto Private Auto Private Auto Medication Reconcilliation completed & No provided to patient/care provider Clinical Summary of Care Provided Yes Assessment/Plan Assessment/Plan (1) Non-pressure chronic ulcer of left heel and midfoot with fat layer exposed: CODE(S): L97.422 - Non-pressure chronic ulcer of left heel and midfoot with fat layer exposed PLAN: Patient was examined evaluated. All findings were discussed with the patient. All questions were answered to the patient satisfaction. Excisional debridement down to and including subcutaneous tissue with a number 5 mm dermal curette to the left heel without incident. Predebridement measurement is 2.0 x 0.8 x 0.1 cm. Postdebridement measurement is 2.2 x 1.0 x 0.1 cm. EpiCord 2.0 x 3.0 cm graft was applied to the left full-thickness ulceration with 100% use. 7th application. The graft site was free and clear of any infection. The wound/skin graft substitute was dressed with nonadherent bandage secured in place with Steri-Strips followed by bolster dressing as well as multilayer compression 3M wrap to the left lower extremity. Patient will continue to be toe weightbearing only with crutches. Patient will continue his oral antibiotics as prescribed. Patient is very grateful for his care. Patient will follow-up Sunday for nursing visit dressing change. Patient will follow-up in [address] Sun at the wound care center.
--- NOTE | 2024-03-27 10:11 | WC ---
PHOTO 03/23/24 HEEL
--- NOTE | 2024-03-27 10:12 | WC ---
PHOTO 03/26/24 LEFT HEEL
[2024-03-31 11:07] VITALS: RESP 18; BMI 43.6
[2024-03-31 11:08] VITALS: BP 134/75; PULSE 92; RESP 18; TEMP 36.2
[2024-04-02 11:33] VITALS: BP 137/72; PULSE 102; RESP 18; TEMP 36.3; BMI 43.6
--- NOTE | 2024-04-02 12:43 | PCM.WC.PN ---
History of Present Illness Date of Service: 04/02/24 Chief Complaint: Bilateral lower extremity ulcers. History of Wound: Mr. Beltran is a 68-year-old male presenting to the wound care center today from [facility] facility for follow-up and evaluation of left heel ulceration. Patient was ultimately seen by an outside provider had surgical intervention and discharged to a SNF for [id number] care. Patient's wound has progressed with conservative treatment with Teena and dressing changes. He did complete oral antibiotics per infectious disease recommendation. Patient is currently living status is at the SNF and then after discharge she will be returning to his van making him homeless which he is comfortable with. He denies trauma. Denies constitutional symptoms. No other pedal complaints at this time. Progress of Wound: Left heel ulceration stable showing no sign of infection. Patient continues to be nonweightbearing. Subjective Subjective Mr. Beltran is a 68-year-old male presenting to wound care center today to follow-up evaluation of left heel wound. He has been compliant with his graft application and has been nonweightbearing with crutches to the left lower extremity. He has followed up with nursing visits for multilayer compression bandage changes. He is grateful for his care. He denies any pain to the heel of the left lower extremity. Denies trauma. Denies constitutional symptoms. No other pedal complaints at this time. Objective Data Objective Data Vital Signs: Vital Signs Temp Pulse Resp BP O2 Del Method 97.3 F L 102 H 18 137/72 H Room Air 04/02/24 11:33 04/02/24 11:33 04/02/24 11:33 04/02/24 11:33 04/02/24 11:33 Oxygen Delivery Method Room Air Weight: 141.903 kg Body Mass Index (BMI) 43.6 Physical Exam Narrative Vascular: DP and PT pulses are palpable. CFT is brisk. Nonpitting edema appreciated left lower extremity. +1 pitting edema appreciated right lower extremity. Skin temperature gradient is warm to warm from proximal ankle to distal digits. Neurological: Light touch intact. Patient response to painful stimuli. Dermatological: Evidence of full-thickness ulceration to left heel measuring 0.4 x 0.8 x 0.1 cm. No undermining noted. Maceration present secondary to drainage, improved. Excisional debridement down to and including subcutaneous tissue with a number 5 mm dermal curette to the left heel without incident. Predebridement measurement is 0.3 x 0.6 x 0.1 cm. Postdebridement measurement is 0.4 x 0.8 x 0.1 cm. EpiFix 18 mm disc was applied to the left full-thickness ulceration with 100% use. 8th application. The graft site was free and clear of any infection. The wound/skin graft substitute was dressed with nonadherent bandage secured in place with Steri-Strips followed by bolster dressing as well as multilayer compression 3M wrap to the left lower extremity. Musculoskeletal: Muscle strength 5-5 in all quadrants bilateral. Mild pain to palpation to the full-thickness ulceration left heel. No pain with calf compression. Debridement Note Debridement Note Debridement Free Text: Excisional debridement down to and including subcutaneous tissue with a number 5 mm dermal curette to the left heel without incident. Predebridement measurement is 0.3 x 0.6 x 0.1 cm. Postdebridement measurement is 0.4 x 0.8 x 0.1 cm. EpiFix 18 mm disc was applied to the left full-thickness ulceration with 100% use. 8th application. The graft site was free and clear of any infection. The wound/skin graft substitute was dressed with nonadherent bandage secured in place with Steri-Strips followed by bolster dressing as well as multilayer compression 3M wrap to the left lower extremity. Post-Debridement Measurements and Additional Note: Post-Debridement Measurements/Treatment WC - Nurse 1 - General Ulcer Assessment Start: 03/14/24 11:23 Freq: Status: Active Protocol: [email or web address].ROMERO Activity Type Activity Date Activity User E-sign Co-sign Detail Recorded Client Recorded Date Recorded By Document 03/14/24 11:23 RB [id number] 03/14/24 11:26 RB Document 03/19/24 14:54 KW [id number] 03/19/24 15:06 KW Document 03/24/24 11:16 BMF [id number] 03/24/24 11:23 BMF Document 03/26/24 11:11 GM [id number] 03/26/24 11:20 GM Document 03/31/24 11:07 KW [id number] 03/31/24 11:07 KW Document 04/02/24 11:33 KW [id number] 04/02/24 11:36 KW 03/14/24 03/19/2403/24/24 11:23 14:54 11:16 WC - Today's Visit Information Type of service Nurse-only Nurse-only Nurse-only Visit Visit Visit Arrival Mode Ambulatory, Ambulatory, Ambulatory, Crutches Crutches Crutches Transfer Assistance None None Patient Identification Verified (Name & Yes Yes Yes ) Patient Requires Transmission-Based No No Precautions Height and Weight Body Mass Index (BMI) 43.6 43.6 43.6 BMI Classification Obese Obese Obese Vital Signs Temperature (97.8 F-99.1 F) 96 F L 97.8 F 97.7 F L Temperature Source Temporal Temporal Temporal Pulse Rate (60-100) 80 95 Pulse Location Monitor Monitor Respiratory Rate (12-18) 18 18 16 Respiratory rate source Observation Observation Observation Oxygen Delivery Method Room Air Room Air Blood Pressure (90/60-120/80) 142/77 H 134/68 H Blood Pressure Mean (mm Hg) 98 90 Source Monitor Monitor Position Semi-Fowlers Semi-Fowlers Blood Pressure Location Left Arm Left Arm History Since Last Visit- (Skip if this is Patient's initial visit) Have you changed medications since your No Yes No last visit? Any new allergies or adverse reactions No No No Had a fall/change in ADL's that may No No No increase risk of falls Signs or symptoms of abuse and/or No No No neglect since last visit Have you been in the hospital since your No No No last visit? Has dressing in place as prescribed Yes Yes Yes Has compression in place as prescribed Yes Yes Yes Has offloadiing in place as prescribed No Yes N/A Experienced any changes in pain level or No No No management Left Footwear Surgical Shoe Surgical Shoe Surgical Shoe with pressure with pressure with pressure relief insole relief insole relief insole Right Footwear Surgical Shoe Surgical Shoe Surgical Shoe with pressure with pressure with pressure relief insole relief insole relief insole Pain Scale: 0-10 Numeric Is Patient Pain Free? No Yes Yes L heel -Description Aching -Intensity 4 -Duration (hours) Acute -Pain Behavior Guarding, Withdrawal from Touch -Pain Aggravating Factors Exercise/ Activity -Alleviating Factors/Interventions None 03/26/24 03/31/24 04/02/24 11:11 11:07 11:33 WC - Today's Visit Information Type of service Follow-up Visit Nurse-only Follow-up Visit (Physician/BILLBOARD MECHANIC Visit (Physician/BILLBOARD MECHANIC ) ) Arrival Mode Ambulatory, Ambulatory, Ambulatory, Crutches Crutches Crutches Transfer Assistance Patient Identification Verified (Name & Yes Yes Yes ) Patient Requires Transmission-Based Precautions Height and Weight Body Mass Index (BMI) 43.6 43.6 43.6 BMI Classification Obese Obese Obese Vital Signs Temperature (97.8 F-99.1 F) 98.9 F 97.3 F L Temperature Source Temporal Temporal Temporal Pulse Rate (60-100) 107 H 102 H Pulse Location Monitor Monitor Monitor Respiratory Rate (12-18) 18 18 18 Respiratory rate source Observation Observation Observation Oxygen Delivery Method Room Air Room Air Room Air Blood Pressure (90/60-120/80) 154/76 H 137/72 H Blood Pressure Mean (mm Hg) 102 93 Source Monitor Monitor Monitor Position Sitting Semi-Fowlers Semi-Fowlers Blood Pressure Location Left Arm Left Arm Left Arm History Since Last Visit- (Skip if this is Patient's initial visit) Have you changed medications since your No No No last visit? Any new allergies or adverse reactions No No No Had a fall/change in ADL's that may No No No increase risk of falls Signs or symptoms of abuse and/or No No No neglect since last visit Have you been in the hospital since your No No No last visit? Has dressing in place as prescribed Yes No Yes Has compression in place as prescribed Yes Yes Yes Has offloadiing in place as prescribed N/A Yes Yes Experienced any changes in pain level or No No No management Left Footwear Surgical Shoe Surgical Shoe Surgical Shoe with pressure with pressure with pressure relief insole relief insole relief insole Right Footwear Surgical Shoe Surgical Shoe Surgical Shoe with pressure with pressure with pressure relief insole relief insole relief insole Pain Scale: 0-10 Numeric Is Patient Pain Free? Yes Yes Yes L heel -Description -Intensity -Duration (hours) -Pain Behavior -Pain Aggravating Factors -Alleviating Factors/Interventions WC - Nurse 1 - General Ulcer Measurement Start: 03/14/24 11:23 Freq: Status: Active Protocol: Activity Type Activity Date Activity User E-sign Co-sign Detail Recorded Client Recorded Date Recorded By Document 03/14/24 11:23 RB [id number] 03/14/24 11:26 RB Document 03/24/24 11:16 BMF [id number] 03/24/24 11:23 BMF Document 03/26/24 11:11 GM [id number] 03/26/24 11:20 GM Document 04/02/24 11:33 KW [id number] 04/02/24 11:36 KW 03/14/24 03/24/24 03/26/24 11:23 11:16 11:11 Wound Center Nurse 1 #9 L Heel -Current Size (cm) - Length 1 -Current Size (cm) - Width 1.8 -Current Size (cm) - Depth 0.1 -Total Square Cm 1.8 -Date of Last Picture (Recall this 03/26/24 field) -Epithelialization -Tunneling No -Undermining/Tunneling No -Circular Undermining No -Exudate Amt Medium Medium -Exudate Type Serosanguineous Serosanguineous -Wound Margin Distinct, Distinct, Outline Outline Attached Attached -Granulation Amt Large (67-100%) -Granulation Quality Red -Slough/Fibrin Yes -Necrosis Amt Small (1-33%) -Necrotic Tissue Type Adherent Slough -Structure Exposed N/A -Texture (Marva-wound Skin Appearance) Localized Edema Assessed -Moisture (Marva-wound Skin Appearance) Assessed Assessed,Dry/ Scaly -Color (Marva-wound Skin Appearance) Erythema Assessed -Temperature (Marva-wound Skin No Abnormality No Abnormality Appearance) (Pt Warm) (Pt Warm) -Tenderness on Palpation (Marva-wound No No Skin Appearance) -Ulcer Cleansing Wound Cleanser Soap and Water -Foul Odor after Cleansing No No -Anesthetic Used 5% Lidocaine Gel Lower Limb Edema Present Yes Yes Left Calf (cm) 46.2 46.5 47 Left Ankle (cm) 33.5 32.7 33.5 04/02/24 11:33 Wound Center Nurse 1 #9 L Heel -Current Size (cm) - Length 0.5 -Current Size (cm) - Width 0.5 -Current Size (cm) - Depth 0.1 -Total Square Cm 0.25 -Date of Last Picture (Recall this 04/02/24 field) -Epithelialization Large 67-100% -Tunneling -Undermining/Tunneling -Circular Undermining -Exudate Amt Small -Exudate Type Serosanguineous -Wound Margin -Granulation Amt Large (67-100%) -Granulation Quality Red -Slough/Fibrin -Necrosis Amt Large (67-100%) -Necrotic Tissue Type -Structure Exposed -Texture (Marva-wound Skin Appearance) Assessed -Moisture (Marva-wound Skin Appearance) Assessed,Dry/ Scaly -Color (Marva-wound Skin Appearance) Assessed -Temperature (Mavra-wound Skin No Abnormality Appearance) (Pt Warm) -Tenderness on Palpation (Marva-wound No Skin Appearance) -Ulcer Cleansing Soap and Water -Foul Odor after Cleansing No -Anesthetic Used 5% Lidocaine Gel Lower Limb Edema Present Left Calf (cm) Left Ankle (cm) WC - Nurse 2 - General Ulcer CM Notes Start: 03/14/24 11:23 Freq: Status: Active Protocol: Activity Type Activity Date Activity User E-sign Co-sign Detail Recorded Client Recorded Date Recorded By Document 03/26/24 11:36 [id number] 03/26/24 11:42 Document 04/02/24 11:48 [id number] 04/02/24 11:49 03/26/24 04/02/24 11:36 11:48 Wound Center Nurse 2 #9 L Heel -Time 11:36 11:48 -Correct Patient Yes Yes -Correct Side, Site, Position Yes Yes -Correct Procedure Yes Yes -Procedure Performed Yes Yes -Type of Procedure Debridement Debridement -Clinical Debridement Subcutaneous Subcutaneous -Tissue Removed Subcutaneous Subcutaneous -Post Debridement (cm) - Length 2.2 0.4 -Post Debridement (cm) - Width 1 0.8 -Post Debridement (cm) - Depth 0.1 0.1 -Total Square (Post) (cm) 2.2 0.32 -Area of Debridement (cm) - Length 2.2 0.4 -Area of Debridement (cm) - Width 1 0.8 -Total Square (Area) (cm) 2.2 0.32 -Tunneling No No -Undermining/Tunneling No No -Circular Undermining No No -Wound/Ulcer Outcome Not Healed Not Healed -Ulcer Cleansing Rinsed/ Rinsed/ Irrigated with Irrigated with Saline Saline -Foul Odor after Cleansing No No -Bioengineered Tissue Yes Yes -Type of Bioengineered Tissue Epicord Epifix 18mm Disc -Expiration Date 07/12/28 10/12/28 -Product Lot Number [id number] -Percent Used 100 100 -Lot number of Saline Used [id number] -Bleeding Controlled with Pressure Pressure -Treatment Response Procedure Procedure Tolerated Well Tolerated Well -Offloading No No -Debridement - Subq, 1st 20sq cm No No -Apply Skin Sub - 1st 25 sq cm - Feet 1 1 -Epicord (per sq cm) 6 -Epifix 18mm Disc 3 Pain Scale: 0-10 Numeric Is Patient Pain Free? Yes Yes WC - Nurse 3 - General Ulcer D/C NN Start: 03/14/24 11:23 Freq: Status: Active Protocol: Activity Type Activity Date Activity User E-sign Co-sign Detail Recorded Client Recorded Date Recorded By Document 03/14/24 11:23 RB [id number] 03/14/24 11:26 RB Document 03/19/24 14:54 KW [id number] 03/19/24 15:06 KW Document 03/24/24 11:16 BMF [id number] 03/24/24 11:23 BMF Edit Result 03/24/24 11:16 BMF (1) [id number] 03/25/24 13:56 KW Document 03/26/24 12:11 MT [id number] 03/26/24 12:13 MT Document 03/31/24 11:08 KW [id number] 03/31/24 11:08 KW Edit Result 03/31/24 11:08 KW (2) [id number] 03/31/24 11:15 KW Document 04/02/24 11:53 GM [id number] 04/02/24 11:55 GM (1) Left - Multi-Layered Wrap Application Multi-Layer Comp - => Multi-Layer Comp - Right ($) => Left ($) (2) Temperature (97.8 F-99.1 F) => 97.2 F L Temperature Source => Temporal Pulse Rate (60-100) => 92 Pulse Location => Monitor Respiratory Rate (12-18) => 18 Respiratory rate source => Observation Oxygen Delivery Method => Room Air Blood Pressure (90/60-120/80) => 134/75 H Blood Pressure Mean (mm Hg) => 94 Source => Monitor Position => Semi-Fowlers Blood Pressure Location => Left Arm 03/14/24 03/19/24 03/24/24 11:23 14:54 11:16 Vital Signs Temperature (97.8 F-99.1 F) 96 F L 97.8 F 97.7 F L Temperature Source Temporal Temporal Temporal Pulse Rate (60-100) 80 95 Pulse Location Monitor Monitor Respiratory Rate (12-18) 18 18 16 Respiratory rate source Observation Observation Observation Oxygen Delivery Method Room Air Room Air Blood Pressure (90/60-120/80) 142/77 H 134/68 H Blood Pressure Mean (mm Hg) 98 90 Source Monitor Monitor Position Semi-Fowlers Semi-Fowlers Blood Pressure Location Left Arm Left Arm Pain Scale: 0-10 Numeric Is Patient Pain Free? No Yes Yes L heel -Description Aching -Intensity 4 -Duration (hours) Acute -Pain Behavior Guarding, Withdrawal from Touch -Pain Aggravating Factors Exercise/ Activity -Alleviating Factors/Interventions None Wound Care Center Nurse 3 #9 L Heel -Ulcer Cleansing Soap and Water Soap and Water -Foul Odor after Cleansing No -Negative Pressure Wound Therapy -Primary Dressing Applied Optilok 6.5x10 Optilok 6.5x10 Optilok 6.5x10 -Other Dressing betadine gauze betadine gauze betadine gauze -Primary Dressing Covered/Secured with Dry Gauze & Dry Gauze & Dry Gauze & Roll Gauze, Roll Gauze, Roll Gauze, Secured with Secured with Secured with Tape Tape Tape -Optilok 6.5x10 1 1 1 -Wound Comment(s) NOTED TO HAVE A FISSURE TO L MEDIAL HEEL- NO DRAINAGE. SURROUNDING ECCHYMOSIS. PT DENIES INJURY. SHANE PETIT IN TO ASSESS. BETADINE TO THIS AREA ALSO AND PADDED WELL W/ ABD. Right -Tubular Bandage Double Layer Double Layer Double Layer -Size of Tubigrip Used Size F Size F Size F -Size F ($) 2 2 2 Left -Multi-Layered Wrap Application Multi-Layer Multi-Layer Multi-Layer Comp - Left ($) Comp - Left ($) Comp - Left ($) Treatment Response Procedure Procedure Tolerated Well Tolerated Well WC - Visit Discharge Discharge Condition Stable Stable Stable Ambulatory Status Ambulatory, Ambulatory, Ambulatory, Crutches Crutches Crutches Transportation Private Auto Private Auto Private Auto Medication Reconcilliation completed & No provided to patient/care provider Clinical Summary of Care Provided Yes 03/26/24 03/31/24 04/02/24 12:11 11:08 11:53 Vital Signs Temperature (97.8 F-99.1 F) 97.2 F L Temperature Source Temporal Pulse Rate (60-100) 92 Pulse Location Monitor Respiratory Rate (12-18) 18 Respiratory rate source Observation Oxygen Delivery Method Room Air Blood Pressure (90/60-120/80) 134/75 H Blood Pressure Mean (mm Hg) 94 Source Monitor Position Semi-Fowlers Blood Pressure Location Left Arm Pain Scale: 0-10 Numeric Is Patient Pain Free? Yes Yes Yes L heel -Description -Intensity -Duration (hours) -Pain Behavior -Pain Aggravating Factors -Alleviating Factors/Interventions Wound Care Center Nurse 3 #9 L Heel -Ulcer Cleansing lotion Soap and Water -Foul Odor after Cleansing No -Negative Pressure Wound Therapy N/A -Primary Dressing Applied Optilok 6.5x10 Optilok 6.5x10 Optilok 6.5x10 -Other Dressing -Primary Dressing Covered/Secured with Dry Gauze, Dry Gauze & Dry Gauze & Secured with Roll Gauze, Roll Gauze, Tape Secured with Secured with Tape Tape -Optilok 6.5x10 1 1 1 -Wound Comment(s) Right -Tubular Bandage Single Layer Double Layer Double Layer -Size of Tubigrip Used Size F Size F Size F -Size F ($) 1 2 2 Left -Multi-Layered Wrap Application Multi-Layer Multi-Layer Multi-Layer Comp - Left ($) Comp - Left ($) Comp - Left ($) Treatment Response WC - Visit Discharge Discharge Condition Stable Ambulatory Status Ambulatory, Crutches Transportation Private Auto Medication Reconcilliation completed & No provided to patient/care provider Clinical Summary of Care Provided Yes Assessment/Plan Assessment/Plan (1) Non-pressure chronic ulcer of left heel and midfoot with fat layer exposed: CODE(S): L97.422 - Non-pressure chronic ulcer of left heel and midfoot with fat layer exposed PLAN: Patient was examined evaluated. All findings were discussed with the patient. All questions were answered to the patient satisfaction. Excisional debridement down to and including subcutaneous tissue with a number 5 mm dermal curette to the left heel without incident. Predebridement measurement is 0.3 x 0.6 x 0.1 cm. Postdebridement measurement is 0.4 x 0.8 x 0.1 cm. EpiFix 18 mm disc was applied to the left full-thickness ulceration with 100% use. 8th application. The graft site was free and clear of any infection. The wound/skin graft substitute was dressed with nonadherent bandage secured in place with Steri-Strips followed by bolster dressing as well as multilayer compression 3M wrap to the left lower extremity. Patient will continue to be toe weightbearing only with crutches. Patient will continue his oral antibiotics as prescribed if he has not finished them. Patient is very grateful for his care. Patient will follow-up Sunday for nursing visit dressing change. Patient will follow-up in [address] Rebollar at the wound care center.
--- NOTE | 2024-04-03 08:48 | WC ---
PHOTO 04/02/24 LEFT HEEL
[2024-04-07 11:04] VITALS: BP 140/83; PULSE 90; RESP 18; TEMP 35.4; BMI 43.6
[2024-04-09 11:13] VITALS: BP 154/80; PULSE 96; RESP 18; TEMP 36.6; BMI 43.6
--- NOTE | 2024-04-09 11:49 | PCM.WC.PN ---
History of Present Illness Date of Service: 04/09/24 Chief Complaint: Bilateral lower extremity ulcers. History of Wound: Mr. Beltran is a 68-year-old male presenting to the wound care center today from long-term facility for follow-up and evaluation of left heel ulceration. Patient was ultimately seen by an outside provider had surgical intervention and discharged to a SNF for [id number] care. Patient's wound has progressed with conservative treatment with Teena and dressing changes. He did complete oral antibiotics per infectious disease recommendation. Patient is currently living status is at the SNF and then after discharge she will be returning to his van making him homeless which he is comfortable with. He denies trauma. Denies constitutional symptoms. No other pedal complaints at this time. Progress of Wound: Left heel ulceration stable showing no sign of infection. Patient continues to be nonweightbearing. Subjective Subjective Mr. Beltran is a 69-year-old male presenting to wound care center today for follow-up evaluation of left heel ulceration. Patient is left his multilayer compression bandage clean dry and intact. He is minimally weightbearing with crutches and toe-touch to left lower extremity. He denies trauma. He to denies constitutional symptoms. No other pedal complaints at this time. Objective Data Objective Data Vital Signs: Vital Signs Temp Pulse Resp BP O2 Del Method 98 F 96 18 154/80 H Room Air 04/09/24 11:13 04/09/24 11:13 04/09/24 11:13 04/09/24 11:13 04/09/24 11:13 Oxygen Delivery Method Room Air Weight: 141.903 kg Body Mass Index (BMI) 43.6 Physical Exam Narrative Vascular: DP and PT pulses are palpable. CFT is brisk. Nonpitting edema appreciated left lower extremity. +1 pitting edema appreciated right lower extremity. Skin temperature gradient is warm to warm from proximal ankle to distal digits. Neurological: Light touch intact. Patient response to painful stimuli. Dermatological: Full-thickness wound to the left heel is now healed. Evidence of hyperkeratotic tissue no ulceration drainage or sign of infection. Musculoskeletal: Muscle strength 5-5 in all quadrants bilateral. No pain to palpation to the left heel. No pain with calf compression. Debridement Note Debridement Note Post-Debridement Measurements and Additional Note: Post-Debridement Measurements/Treatment WC - Nurse 1 - General Ulcer Assessment Start: 03/14/24 11:23 Freq: Status: Active Protocol: WC.LOWEXT Activity Type Activity Date Activity User E-sign Co-sign Detail Recorded Client Recorded Date Recorded By Document 03/14/24 11:23 RB [id number] 03/14/24 11:26 RB Document 03/19/24 14:54 KW [id number] 03/19/24 15:06 KW Document 03/24/24 11:16 BMF [id number] 03/24/24 11:23 BMF Document 03/26/24 11:11 GM [id number] 03/26/24 11:20 GM Document 03/31/24 11:07 KW [id number] 03/31/24 11:07 KW Document 04/02/24 11:33 KW [id number] 04/02/24 11:36 KW Document 04/07/24 11:04 KW [id number] 04/07/24 11:24 KW Document 04/09/24 11:13 MT [id number] 04/09/24 11:36 MT 03/14/24 03/19/24 03/24/24 11:23 14:54 11:16 - Today's Visit Information Type of service Nurse-only Nurse-only Nurse-only Visit Visit Visit Arrival Mode Ambulatory, Ambulatory, Ambulatory, Crutches Crutches Crutches Transfer Assistance None None Accompanied by Patient Identification Verified (Name & Yes Yes Yes ) Patient Requires Transmission-Based No No Precautions Height and Weight Body Mass Index (BMI) 43.6 43.6 43.6 BMI Classification Obese Obese Obese Vital Signs Temperature (97.8 F-99.1 F) 96 F L 97.8 F 97.7 F L Temperature Source Temporal Temporal Temporal Pulse Rate (60-100) 80 95 Pulse Location Monitor Monitor Respiratory Rate (12-18) 18 18 16 Respiratory rate source Observation Observation Observation Oxygen Delivery Method Room Air Room Air Blood Pressure (90/60-120/80) 142/77 H 134/68 H Blood Pressure Mean (mm Hg) 98 90 Source Monitor Monitor Position Semi-Fowlers Semi-Fowlers Blood Pressure Location Left Arm Left Arm History Since Last Visit- (Skip if this is Patient's initial visit) Have you changed medications since your No Yes No last visit? Any new allergies or adverse reactions No No No Had a fall/change in ADL's that may No No No increase risk of falls Signs or symptoms of abuse and/or No No No neglect since last visit Have you been in the hospital since your No No No last visit? Has dressing in place as prescribed Yes Yes Yes Has compression in place as prescribed Yes Yes Yes Has offloadiing in place as prescribed No Yes N/A Experienced any changes in pain level or No No No management Left Footwear Surgical Shoe Surgical Shoe Surgical Shoe with pressure with pressure with pressure relief insole relief insole relief insole Right Footwear Surgical Shoe Surgical Shoe Surgical Shoe with pressure with pressure with pressure relief insole relief insole relief insole Pain Scale: 0-10 Numeric Is Patient Pain Free? No Yes Yes L heel -Description Aching -Intensity 4 -Duration (hours) Acute -Pain Behavior Guarding, Withdrawal from Touch -Pain Aggravating Factors Exercise/ Activity -Alleviating Factors/Interventions None 03/26/24 03/31/24 04/02/24 11:11 11:07 11:33 WC - Today's Visit Information Type of service Follow-up Visit Nurse-only Follow-up Visit (Physician/INSPECTOR WE[employer]S [employer] MEASURES Visit (Physician/INSPECTOR WE[employer]S [employer] MEASURES ) ) Arrival Mode Ambulatory, Ambulatory, Ambulatory, Crutches Crutches Crutches Transfer Assistance Accompanied by Patient Identification Verified (Name & Yes Yes Yes ) Patient Requires Transmission-Based Precautions Height and Weight Body Mass Index (BMI) 43.6 43.6 43.6 BMI Classification Obese Obese Obese Vital Signs Temperature (97.8 F-99.1 F) 98.9 F 97.3 F L Temperature Source Temporal Temporal Temporal Pulse Rate (60-100) 107 H 102 H Pulse Location Monitor Monitor Monitor Respiratory Rate (12-18) 18 18 18 Respiratory rate source Observation Observation Observation Oxygen Delivery Method Room Air Room Air Room Air Blood Pressure (90/60-120/80) 154/76 H 137/72 H Blood Pressure Mean (mm Hg) 102 93 Source Monitor Monitor Monitor Position Sitting Semi-Fowlers Semi-Fowlers Blood Pressure Location Left Arm Left Arm Left Arm History Since Last Visit- (Skip if this is Patient's initial visit) Have you changed medications since your No No No last visit? Any new allergies or adverse reactions No No No Had a fall/change in ADL's that may No No No increase risk of falls Signs or symptoms of abuse and/or No No No neglect since last visit Have you been in the hospital since your No No No last visit? Has dressing in place as prescribed Yes No Yes Has compression in place as prescribed Yes Yes Yes Has offloadiing in place as prescribed N/A Yes Yes Experienced any changes in pain level or No No No management Left Footwear Surgical Shoe Surgical Shoe Surgical Shoe with pressure with pressure with pressure relief insole relief insole relief insole Right Footwear Surgical Shoe Surgical Shoe Surgical Shoe with pressure with pressure with pressure relief insole relief insole relief insole Pain Scale: 0-10 Numeric Is Patient Pain Free? Yes Yes Yes L heel -Description -Intensity -Duration (hours) -Pain Behavior -Pain Aggravating Factors -Alleviating Factors/Interventions 04/07/24 04/09/24 11:04 11:13 WC - Today's Visit Information Type of service Nurse-only Follow-up Visit Visit (Physician/INSPECTOR WEIGHTS AND MEASURES ) Arrival Mode Ambulatory, Ambulatory Crutches Transfer Assistance Accompanied by SELF Patient Identification Verified (Name & Yes Yes ) Patient Requires Transmission-Based Precautions Height and Weight Body Mass Index (BMI) 43.6 43.6 BMI Classification Obese Obese Vital Signs Temperature (97.8 F-99.1 F) 95.7 F L 98 F Temperature Source Temporal Temporal Pulse Rate (60-100) 90 96 Pulse Location Monitor Monitor Respiratory Rate (12-18) 18 18 Respiratory rate source Observation Observation Oxygen Delivery Method Room Air Room Air Blood Pressure (90/60-120/80) 140/83 H 154/80 H Blood Pressure Mean (mm Hg) 102 104 Source Monitor Monitor Position Semi-Fowlers Sitting Blood Pressure Location Left Forearm Left Arm History Since Last Visit- (Skip if this is Patient's initial visit) Have you changed medications since your No last visit? Any new allergies or adverse reactions No Had a fall/change in ADL's that may No increase risk of falls Signs or symptoms of abuse and/or No neglect since last visit Have you been in the hospital since your No last visit? Has dressing in place as prescribed Yes Yes Has compression in place as prescribed Yes Yes Has offloadiing in place as prescribed Yes Yes Experienced any changes in pain level or No Yes management Left Footwear Surgical Shoe Surgical Shoe with pressure with pressure relief insole relief insole Right Footwear Surgical Shoe Surgical Shoe with pressure with pressure relief insole relief insole Pain Scale: 0-10 Numeric Is Patient Pain Free? Yes Yes L heel -Description -Intensity -Duration (hours) -Pain Behavior -Pain Aggravating Factors -Alleviating Factors/Interventions WC - Nurse 1 - General Ulcer Measurement Start: 03/14/24 11:23 Freq: Status: Active Protocol: Activity Type Activity Date Activity User E-sign Co-sign Detail Recorded Client Recorded Date Recorded By Document 03/14/24 11:23 RB [id number] 03/14/24 11:26 RB Document 03/24/24 11:16 BMF [id number] 03/24/24 11:23 BMF Document 03/26/24 11:11 GM [id number] 03/26/24 11:20 GM Document 04/02/24 11:33 KW [id number] 04/02/24 11:36 KW Document 04/09/24 11:13 MT [id number] 04/09/24 11:36 MT 03/14/24 03/24/24 03/26/24 11:23 11:16 11:11 Wound Center Nurse 1 #9 L Heel -Current Size (cm) - Length 1 -Current Size (cm) - Width 1.8 -Current Size (cm) - Depth 0.1 -Total Square Cm 1.8 -Date of Last Picture (Recall this 03/26/24 field) -Photo Taken -Epithelialization -Tunneling No -Undermining/Tunneling No -Circular Undermining No -Exudate Amt Medium Medium -Exudate Type Serosanguineous Serosanguineous -Wound Margin Distinct, Distinct, Outline Outline Attached Attached -Granulation Amt Large (67-100%) -Granulation Quality Red -Slough/Fibrin Yes -Necrosis Amt Small (1-33%) -Necrotic Tissue Type Adherent Slough -Structure Exposed N/A -Texture (Marva-wound Skin Appearance) Localized Edema Assessed -Moisture (Marva-wound Skin Appearance) Assessed Assessed,Dry/ Scaly -Color (Marva-wound Skin Appearance) Erythema Assessed -Temperature (Marva-wound Skin No Abnormality No Abnormality Appearance) (Pt Warm) (Pt Warm) -Tenderness on Palpation (Marva-wound No No Skin Appearance) -Ulcer Cleansing Wound Cleanser Soap and Water -Foul Odor after Cleansing No No -Anesthetic Used 5% Lidocaine Gel Lower Limb Edema Present Yes Yes Left Calf (cm) 46.2 46.5 47 Left Ankle (cm) 33.5 32.7 33.5 04/02/24 04/09/24 11:33 11:13 Wound Center Nurse 1 #9 L Heel -Current Size (cm) - Length 0.5 0.1 -Current Size (cm) - Width 0.5 0.1 -Current Size (cm) - Depth 0.1 0.1 -Total Square Cm 0.25 0.01 -Date of Last Picture (Recall this 04/02/24 04/09/24 field) -Photo Taken Yes -Epithelialization Large 67-100% Large 67-100% -Tunneling No -Undermining/Tunneling No -Circular Undermining No -Exudate Amt Small None Present -Exudate Type Serosanguineous -Wound Margin Flat & Intact -Granulation Amt Large (67-100%) -Granulation Quality Red -Slough/Fibrin No -Necrosis Amt Large (67-100%) -Necrotic Tissue Type -Structure Exposed -Texture (Marva-wound Skin Appearance) Assessed Assessed -Moisture (Marva-wound Skin Appearance) Assessed,Dry/ Assessed Scaly -Color (Marva-wound Skin Appearance) Assessed Assessed -Temperature (Marva-wound Skin No Abnormality No Abnormality Appearance) (Pt Warm) (Pt Warm) -Tenderness on Palpation (Marva-wound No No Skin Appearance) -Ulcer Cleansing Soap and Water Soap and Water -Foul Odor after Cleansing No No -Anesthetic Used 5% Lidocaine 5% Lidocaine Gel Gel Lower Limb Edema Present Left Calf (cm) Left Ankle (cm) WC - Nurse 2 - General Ulcer CM Notes Start: 03/14/24 11:23 Freq: Status: Active Protocol: Activity Type Activity Date Activity User E-sign Co-sign Detail Recorded Client Recorded Date Recorded By Document 03/26/24 11:36 [id number] 03/26/24 11:42 Document 04/02/24 11:48 JF [id number] 04/02/24 11:49 Document 04/09/24 11:32 [id number] 04/09/24 11:33 03/26/24 04/02/24 04/09/24 11:36 11:48 11:32 Wound Center Nurse 2 #9 L Heel -Time 11:36 11:48 -Correct Patient Yes Yes No -Correct Side, Site, Position Yes Yes No -Correct Procedure Yes Yes No -Procedure Performed Yes Yes No -Type of Procedure Debridement Debridement -Clinical Debridement Subcutaneous Subcutaneous -Tissue Removed Subcutaneous Subcutaneous -Post Debridement (cm) - Length 2.2 0.4 0 -Post Debridement (cm) - Width 1 0.8 0 -Post Debridement (cm) - Depth 0.1 0.1 0 -Total Square (Post) (cm) 2.2 0.32 0 -Area of Debridement (cm) - Length 2.2 0.4 0 -Area of Debridement (cm) - Width 1 0.8 0 -Total Square (Area) (cm) 2.2 0.32 0 -Tunneling No No -Undermining/Tunneling No No -Circular Undermining No No -Wound/Ulcer Outcome Not Healed Not Healed Healed- Epithelialized -Ulcer Cleansing Rinsed/ Rinsed/ Irrigated with Irrigated with Saline Saline -Foul Odor after Cleansing No No -Bioengineered Tissue Yes Yes -Type of Bioengineered Tissue Epicord Epifix 18mm Disc -Expiration Date 07/12/28 10/12/28 -Product Lot Number [id number] -Percent Used 100 100 -Lot number of Saline Used [id number] -Bleeding Controlled with Pressure Pressure -Treatment Response Procedure Procedure Tolerated Well Tolerated Well -Offloading No No -Debridement - Subq, 1st 20sq cm No No -Apply Skin Sub - 1st 25 sq cm - Feet 1 1 -Epicord (per sq cm) 6 -Epifix 18mm Disc 3 Pain Scale: 0-10 Numeric Is Patient Pain Free? Yes Yes Yes WC - Nurse 3 - General Ulcer D/C NN Start: 03/14/24 11:23 Freq: Status: Active Protocol: Activity Type Activity Date Activity User E-sign Co-sign Detail Recorded Client Recorded Date Recorded By Document 03/14/24 11:23 RB [id number] 03/14/24 11:26 RB Document 03/19/24 14:54 KW [id number] 03/19/24 15:06 KW Document 03/24/24 11:16 BMF [id number] 03/24/24 11:23 BMF Edit Result 03/24/24 11:16 BMF (1) [id number] 03/25/24 13:56 KW Document 03/26/24 12:11 MT [id number] 03/26/24 12:13 MT Document 03/31/24 11:08 KW [id number] 03/31/24 11:08 KW Edit Result 03/31/24 11:08 KW (2) [id number] 03/31/24 11:15 KW Document 04/02/24 11:53 GM [id number] 04/02/24 11:55 GM Document 04/07/24 11:04 KW [id number] 04/07/24 11:24 KW Document 04/09/24 11:36 MT [id number] 04/09/24 11:44 MT (1) Left - Multi-Layered Wrap Application Multi-Layer Comp - => Multi-Layer Comp - Right ($) => Left ($) (2) Temperature (97.8 F-99.1 F) => 97.2 F L Temperature Source => Temporal Pulse Rate (60-100) => 92 Pulse Location => Monitor Respiratory Rate (12-18) => 18 Respiratory rate source => Observation Oxygen Delivery Method => Room Air Blood Pressure (90/60-120/80) => 134/75 H Blood Pressure Mean (mm Hg) => 94 Source => Monitor Position => Semi-Fowlers Blood Pressure Location => Left Arm 03/14/24 03/19/24 03/24/24 11:23 14:54 11:16 Vital Signs Temperature (97.8 F-99.1 F) 96 F L 97.8 F 97.7 F L Temperature Source Temporal Temporal Temporal Pulse Rate (60-100) 80 95 Pulse Location Monitor Monitor Respiratory Rate (12-18) 18 18 16 Respiratory rate source Observation Observation Observation Oxygen Delivery Method Room Air Room Air Blood Pressure (90/60-120/80) 142/77 H 134/68 H Blood Pressure Mean (mm Hg) 98 90 Source Monitor Monitor Position Semi-Fowlers Semi-Fowlers Blood Pressure Location Left Arm Left Arm Pain Scale: 0-10 Numeric Is Patient Pain Free? No Yes Yes L heel -Description Aching -Intensity 4 -Duration (hours) Acute -Pain Behavior Guarding, Withdrawal from Touch -Pain Aggravating Factors Exercise/ Activity -Alleviating Factors/Interventions None Wound Care Center Nurse 3 #9 L Heel -Ulcer Cleansing Soap and Water Soap and Water -Foul Odor after Cleansing No -Negative Pressure Wound Therapy -Primary Dressing Applied Optilok 6.5x10 Optilok 6.5x10 Optilok 6.5x10 -Other Dressing betadine gauze betadine gauze betadine gauze -Primary Dressing Covered/Secured with Dry Gauze & Dry Gauze & Dry Gauze & Roll Gauze, Roll Gauze, Roll Gauze, Secured with Secured with Secured with Tape Tape Tape -Optilok 6.5x10 1 1 1 -Wound Comment(s) NOTED TO HAVE A FISSURE TO L MEDIAL HEEL- NO DRAINAGE. SURROUNDING ECCHYMOSIS. PT DENIES INJURY. SHANE PETIT IN TO ASSESS. BETADINE TO THIS AREA ALSO AND PADDED WELL W/ ABD. Right -Tubular Bandage Double Layer Double Layer Double Layer -Size of Tubigrip Used Size F Size F Size F -Size F ($) 2 2 2 Left -Multi-Layered Wrap Application Multi-Layer Multi-Layer Multi-Layer Comp - Left ($) Comp - Left ($) Comp - Left ($) Treatment Response Procedure Procedure Tolerated Well Tolerated Well WC - Visit Discharge Discharge Condition Stable Stable Stable Ambulatory Status Ambulatory, Ambulatory, Ambulatory, Crutches Crutches Crutches Transportation Private Auto Private Auto Private Auto Medication Reconcilliation completed & No provided to patient/care provider Clinical Summary of Care Provided Yes 03/26/24 03/31/24 04/02/24 12:11 11:08 11:53 Vital Signs Temperature (97.8 F-99.1 F) 97.2 F L Temperature Source Temporal Pulse Rate (60-100) 92 Pulse Location Monitor Respiratory Rate (12-18) 18 Respiratory rate source Observation Oxygen Delivery Method Room Air Blood Pressure (90/60-120/80) 134/75 H Blood Pressure Mean (mm Hg) 94 Source Monitor Position Semi-Fowlers Blood Pressure Location Left Arm Pain Scale: 0-10 Numeric Is Patient Pain Free? Yes Yes Yes L heel -Description -Intensity -Duration (hours) -Pain Behavior -Pain Aggravating Factors -Alleviating Factors/Interventions Wound Care Center Nurse 3 #9 L Heel -Ulcer Cleansing lotion Soap and Water -Foul Odor after Cleansing No -Negative Pressure Wound Therapy N/A -Primary Dressing Applied Optilok 6.5x10 Optilok 6.5x10 Optilok 6.5x10 -Other Dressing -Primary Dressing Covered/Secured with Dry Gauze, Dry Gauze & Dry Gauze & Secured with Roll Gauze, Roll Gauze, Tape Secured with Secured with Tape Tape -Optilok 6.5x10 1 1 1 -Wound Comment(s) Right -Tubular Bandage Single Layer Double Layer Double Layer -Size of Tubigrip Used Size F Size F Size F -Size F ($) 1 2 2 Left -Multi-Layered Wrap Application Multi-Layer Multi-Layer Multi-Layer Comp - Left ($) Comp - Left ($) Comp - Left ($) Treatment Response WC - Visit Discharge Discharge Condition Stable Ambulatory Status Ambulatory, Crutches Transportation Private Auto Medication Reconcilliation completed & No provided to patient/care provider Clinical Summary of Care Provided Yes 04/07/24 04/09/24 11:04 11:36 Vital Signs Temperature (97.8 F-99.1 F) 95.7 F L Temperature Source Temporal Pulse Rate (60-100) 90 Pulse Location Monitor Respiratory Rate (12-18) 18 Respiratory rate source Observation Oxygen Delivery Method Room Air Blood Pressure (90/60-120/80) 140/83 H Blood Pressure Mean (mm Hg) 102 Source Monitor Position Semi-Fowlers Blood Pressure Location Left Forearm Pain Scale: 0-10 Numeric Is Patient Pain Free? Yes Yes L heel -Description -Intensity -Duration (hours) -Pain Behavior -Pain Aggravating Factors -Alleviating Factors/Interventions Wound Care Center Nurse 3 #9 L Heel -Ulcer Cleansing Soap and Water -Foul Odor after Cleansing -Negative Pressure Wound Therapy -Primary Dressing Applied Optilok 6.5x10 -Other Dressing -Primary Dressing Covered/Secured with Dry Gauze & Roll Gauze, Secured with Tape -Optilok 6.5x10 1 -Wound Comment(s) Right -Tubular Bandage Double Layer -Size of Tubigrip Used Size F -Size F ($) 2 Left -Multi-Layered Wrap Application Multi-Layer Multi-Layer Comp - Left ($) Comp - Left ($) Treatment Response WC - Visit Discharge Discharge Condition Stable Ambulatory Status Ambulatory, Crutches Transportation Private Auto Medication Reconcilliation completed & No provided to patient/care provider Clinical Summary of Care Provided Yes Assessment/Plan Assessment/Plan (1) Non-pressure chronic ulcer of left heel and midfoot with fat layer exposed: CODE(S): L97.422 - Non-pressure chronic ulcer of left heel and midfoot with fat layer exposed PLAN: Patient was examined and evaluated. All findings were discussed with the patient. All questions were answered to the patient's satisfaction. At this time the patient's left heel wound is now healed. Educated the patient on the need to continue nonweightbearing with crutches to the left lower extremity and heel touch only. He was understanding of this. Patient was placed in a multilayer compression 3M bandage and will follow-up on Sunday for nurse visit. I educated the patient continue to follow the same course of treatment as we have been doing so that he can build up skin integrity to the heel. He was understanding of this. When the patient follows up in 2 weeks I will give him a prescription for [employer] to get custom shoes made with an offloading heel to left lower extremity. Follow-up at the wound care center with Dr. Rebollar in 2 week.
--- NOTE | 2024-04-15 15:17 | WC ---
PHOTO 04/09/24 LEFT HEEL (H)
== END 2024-04-12 23:59 | disposition home or self-care (01) ==
LOC: WC 11:15
PROVIDERS: Referring Provider Podiatrist; Visit Provider Podiatrist Foot & Ankle Surgery
DX: L97.422 Non-pressure chronic ulcer of left heel and midfoot with fat layer exposed (principal)
CPT/HCPCS: 15275; 29581; 99213; Q4186; Q4187; G0463

== ENCOUNTER 2024-04-21 11:00 | Outpatient (RCR) | payer MEDICARE, MEDICAID, SELFPAY ==
[2024-04-13 00:17] VITALS: BP 150/86; PULSE 86; RESP 20; TEMP 36.3; BMI 43.6
[2024-04-14 10:59] VITALS: BP 142/61; PULSE 87; RESP 18; TEMP 36.6; BMI 43.6
[2024-04-21 11:17] VITALS: BP 138/79; PULSE 98; RESP 16; TEMP 36.4; BMI 43.6
== END 2024-05-09 09:57 | disposition home or self-care (01) ==
LOC: WC 11:00
PROVIDERS: Referring Provider Podiatrist; Visit Provider Podiatrist Foot & Ankle Surgery
DX: Z09 Encounter for follow-up examination after completed treatment for conditions other than malignant neoplasm (principal)
CPT/HCPCS: 29581

== ENCOUNTER 2025-01-21 23:22 | Emergency (ER) | payer MEDICARE, MEDICAID, SELFPAY ==
--- NOTE | 2025-01-21 23:59 | RAD_ITS ---
PROCEDURE: CHEST 1 VIEW (PORTABLE) 01/22/2025 REASON FOR EXAM: COUGH TECHNIQUE: Frontal view of the chest. FINDINGS: The lungs are clear. The cardiomediastinal silhouette appears borderline enlarged, with mild atherosclerotic calcification of the aortic knob.. No acute osseous abnormality. RAD/Chest 1 View (Portable) IMPRESSION: As above. Reading Location: [id number]
[2025-01-22] VITALS (15 sets, daily range): BP systolic 94–125; BP diastolic 53–92; PULSE 111–127; RESP 17–25; TEMP 36.8–36.9; O2SAT 93–98; BMI 51.9
[2025-01-22] MEDS: 0.9% Normal Saline (1000mL) 1,000 ML 999 ML IV ×3 (00:28→02:37)
[2025-01-22 00:29] LABS: Hematocrit 41.6 % (40-54); Hemoglobin 14.1 g/dL (13.0-16.5); Mean Corp Hgb Conc 33.9 g/dL (32-36); Mean Corpuscular Volume 87.8 fL (80-94); Mean Platelet Vol. 9.3 fl (6.2-12.0); POSITIVE COUNT YES; POSITIVE DIFFERENTIAL YES; POSITIVE MORPHOLOGY YES; Platelet Count 358 K/mm3 (150-450); RBC Distribution Width CV 12.5 % (11.6-14.6); RBC Distribution Width SD 40.0 fl (35.1-43.9); Red Blood Count 4.74 M/mm3 (4.6-6.2); White Blood Count 26.8 K/mm3 (4.4-11.0)
[2025-01-22 00:48] LABS: Mucous, Urine 0 SEEN /hpf (<or=2+)
[2025-01-22 00:51] LABS: Color, Urine Amber (Yellow); Glucose, Dipstick Normal (Normal); Ketone-Dipstick 5 mg/dl (Negative); Leukocyte Esterase-Dipstick 25 /ul (Negative); Nitrite-Dipstick Positive (Negative); Occult Blood-Urine 50 /ul (Negative); Protein-Dipstick 30 mg/dl (Negative); Specific Gravity, Urine 1.020 (1.002-1.030)
[2025-01-22 01:06] LABS: Urine Bilirubin Dipstick 3 mg/dL (Negative)
[2025-01-22 01:13] LABS: Squamous Epithelial Cells - UA 0-5 SEEN /hpf (0-5)
[2025-01-22 01:14] LABS: Red Blood Cells-Urine 0-5 SEEN /hpf (0-5)
[2025-01-22 01:16] LABS: Differential Indicated MANUAL DIFF
[2025-01-22] MEDS: Piperacil/Tazobactam 3.375 GM in 0.9% Normal Saline (50mL MB+) 50 ML IV (01:25)
[2025-01-22 01:32] LABS: Neutrophil-Segmented 88 % (47-70); Total Cells Counted 100 (MANUAL DIFF)
[2025-01-22 01:34] LABS: Reactive Lymphocyte RARE
--- NOTE | 2025-01-22 02:05 | PCM.HP.STD ---
[facility] - General General Date of Admission: 01/22/25 Date of Service: 01/22/25 Chief Complaint: Patient Found with Wounds Filled with Maggots and Flesh Stuck to Seats in his Van. HPI Narrative JAK TANNER, is a homeless 69 M with a past medical history of essential hypertension; on metoprolol twice daily, spironolactone plus furosemide daily, morbid obesity (class III); with a BMI of 51.9 this admission, history of atrial fibrillation; on apixaban twice daily, history of CHF, former tobacco abuse, history of EtOH abuse, history of depression; currently not on treatment, severe bilateral lower extremity lymphedema; history of cellulitis and ulceration of the Left heel followed by Dr. Rebollar of podiatry and previously evaluated by Dr. Stern of infectious disease during admission here from July 12, 2023 to July 17, 2023 who presents to [facility] ER complaining of wounds filled with maggots and with flash stuck to seeds in his van requiring EMS to cut the roof of his van and lift him out prior to arrival. Mr. Tanner reports his symptoms began approximately 4 weeks prior to admission [facility] Medical History Alcohol abuse Depression Former smoker Congestive heart failure (CHF) Lymphedema Ulcer of right lower extremity with fat layer exposed Ulcer of left lower extremity with fat layer exposed Home Medications ?Medication ?Instructions ?Recorded ?Last Taken ?Type furosemide 40 mg tablet (Lasix) 40 mg PO DAILY #30 tabs 09/22/22 07/09/23 Rx acetaminophen 325 mg tablet 650 mg (2 x 325 mg) PO Q6H PRN PRN 07/17/23 Unknown Rx Pain 1-10 Or Fever >100.7 #0 tabs apixaban 5 mg tablet 5 mg PO BID #60 tabs 07/17/23 Unknown Rx metoprolol tartrate 25 mg tablet 25 mg PO BID #60 tabs 07/17/23 Unknown Rx potassium chloride 20 mEq 20 meq PO DAILY #30 tabs 07/17/23 Unknown Rx tablet,extended release(part/cryst) sennosides 8.6 mg capsule (senna) 8.6 mg PO DAILY 10/10/23 Unknown History spironolactone 25 mg tablet 25 mg PO DAILY 10/10/23 Unknown History Allergy/AdvReac Type Severity Reaction Status Date / Time No Known Allergies Allergy Verified 10/10/23 14:20 Family History no significant family his Social History household members: none housing: homeless Smoking Status: Former smoker ROS ROS Narrative Review of Systems: Constitutional: Patient denies fever or chills. Eyes: Patient denies changes in vision or discharge from eyes. ENT: Patient denies runny nose, sore throat or ear pain. Resp: Patient denies shortness of breath or cough. CV: Patient denies chest pain, palpitations or heart racing. GI: Patient denies abdominal pain, nausea, vomiting, diarrhea or constipation. : Patient denies dysuria, hematuria or urinary frequency. MSK: Patient admits to myalgias with multiple lower extremity wounds as per HPI. Skin: Patient has multiple wounds filled with maggots on arrival as per HPI. Psych: Patient denies symptoms of uncontrolled depression or anxiety. Neuro: Patient denies headache, paresthesias or focal neurologic deficits. Allergy: Patient denies lip swelling, tongue swelling or urticaria. Hematology: Patient admits to easy bleeding and easy bruisability on apixaban. Endocrinology: Patient denies polyuria, polydipsia, polyphagia or heat/cold intolerance. 14 point ROS otherwise negative except for positives noted above in HPI. Vital Signs Vital Signs Vital Signs: 01/22/25 00:11 01/22/25 00:11 01/22/25 00:11 Temperature 98.4 F Temperature Source Core Pulse Rate 127 H 127 H Respiratory Rate 25 H 25 H Respiratory Effort Normal Respiratory Pattern Normal Blood Pressure 125/65 H 125/65 H Blood Pressure Mean 85 85 Pulse Ox 93 93 Oxygen Delivery Method Room Air Room Air 01/22/25 00:21 01/22/25 01:21 01/22/25 02:00 Temperature 98.4 F 98.5 F Temperature Source Core Core Pulse Rate 126 H 124 H 123 H Respiratory Rate 25 H 20 H 19 H Respiratory Effort Respiratory Pattern Blood Pressure 125/65 H 110/69 98/62 Blood Pressure Mean 85 82 74 Pulse Ox 98 93 98 Oxygen Delivery Method Room Air Room Air Room Air Weight Weight: 372 lb 5.772 oz Body Mass Index (BMI) 51.9 Physical Exam Const alert, oriented x3 and no apparent distress Constitutional Narrative: Patient appears chronically ill with flat, depressed affect. General Appearance: cooperative HEENT normocephalic, head/scalp atraumatic and hearing grossly normal bilaterally HEENT Narrative: Mucous membranes dry. Eyes PERRL and EOMs intact bilaterally Neck no lymphadenopathy, supple and no JVD Resp normal respiratory effort, no retractions, no use of accessory muscles and clear to auscultation bilaterally Cardio regular rate and regular rhythm GI normal to inspection, nondistended, normoactive bowel sounds, soft to palpation, non-tender and non-distended GI Narrative: Morbidly obese. Extremity Extremity Narrative: Patient has multiple large wounds in buttocks and lower extremities. Skin Skin Narrative: Patient has multiple large wounds in buttocks and lower extremitie Neuro oriented x3, CN's II-XII intact bilaterally, moves all extremities and no focal motor deficits Sensorium / Orientation: awake, alert, oriented to person, oriented to place and oriented to time Speech: speech normal Psych Mood & Affect: depressed Results Medical Records Data Attestation: I reviewed the patient's medical records Lab / Micro Data Attestation: I reviewed the patient's lab results. 01/22/25 00:07 01/22/25 00:07 Labs: Laboratory Results - last 24 hr 01/22/25 00:07: WBC 26.8 H, RBC 4.74, Hgb 14.1, Hct 41.6, MCV 87.8, MCH 29.7, MCHC 33.9, RDW Std Deviation 40.0, RDW Coeff of Thiago 12.5, Plt Count 358, MPV 9.3, Neut % (Auto) Not Reportable, Absolute Neuts (auto) 23.6 H, Absolute Lymphs (auto) 0.80 L, Total Counted 100, Neutrophils % (Manual) 88 H, Lymphocytes % (Manual) 3 L, Monocytes % (Manual) 4, Metamyelocytes % 5 H, Diff Path Review May foll, Reactive Lymphocytes RARE, Lactic Acid 2.6 H*, Magnesium 2.5 H, Total Creatine Kinase 4321 H, NT pro BNP II 1765 H, Procalcitonin 1.95 H 01/22/25 00:09: Urine Color Pili, Urine Clarity Clear, Urine pH 5.0, Ur Specific [place] 1.020, Urine Protein 30 H, Urine Glucose (UA) Normal, Urine Ketones 5 H, Urine Occult Blood 50 H, Urine Nitrite Positive H, Urine Bilirubin 3 H, Urine Urobilinogen 4 H, Ur Leukocyte Esterase 25 H, Urine RBC 0-5 SEEN, Urine WBC 10-25 SEEN, Ur Squamous Epith Cells 0-5 SEEN, Urine Bacteria 1+, Hyaline Casts 0-5 SEEN, Urine Mucus 0 SEEN Imaging Radiology Impression Chest X-Ray 01/21/25 23:59 IMPRESSION: As above. Reading Location: [facility] Lower Extremity CT 01/22/25 23:49 IMPRESSION: 1. Subcutaneous emphysema in the medial aspect of the left gluteus and extends to the perineum. No CT evidence of an abscess. 2. Nonspecific subcutaneous fat stranding throughout the left thigh. 3. Severe degenerative changes affecting the left knee, moderate degenerative changes of the pubic symphysis, and mild degenerative changes of both hips. Reading Location: [facility]
[2025-01-22] MEDS: Vancomycin HCl 2,000 MG in 0.9% Normal Saline (500mL Bag) 500 ML 250 MG IV (02:13)
--- OUTSIDE RECORDS SUMMARY | 2025-01-22 02:46 | XMS RPT_ITS | CCD ---
Author Organization [facility] Care Team Providers Care Ingot Caster Name Role Phone Dr. Yajaira Heller Primary Care Provider Dr. Yajaira Heller Referring Provider Dr. Franklyn Sanchez Attending Provider [phone] Dr. Franklyn Sanchez Other Provider [facility] [place] [facility] Pro vider Dr. Nicola De Leon Emergency Provider Dr. Danis Velez Admit Provider Dr. Danis Velez Attending Provider Dr. Danis Velez Other Provider Dr. Alejandro Sanders Other Provider [phone] Aundrea Lange Attending Unavailable Alejandro Sanders Consulting Unavailable [facility], [place] [facility] Unavailable Danis Velez Admitting Unavailable Paramjit Stern Consulting Unavailable Danis Velez Consulting Unavailable Aundrea Lange Consulting Unavailable Alyssa Nguyen Attending [facility] [place] [facility] Unavailable Janice PARKER Alyssa Referring Unavailable Alyssa Nguyen Attending Unavailable [facility] [place], [place] [facility] Unavailable Alyssa Nguyen Attending [facility] [place] Unavailable Sherry Richardson Attending Unavailabl e Aundrea Lange Referring Unavailable [facility] [place], [place] [facility] Unavailable Alyssa Nguyen Attending Unavailable [facility] [place], [place] [facility] Unavailable [facility] [place], [facility] Primary Care Unavailable Alejandro Sanders Consulting Unavailable Danis Velez Admitting Unavailable David Downey Attending Unavailable Paramjit Stern Consulting Unavailable Danis Velez Consulting Unavailable Aundrea Lange Consulting Unavailable Myles Rebollar Attending Unavailable Tommy, Alejandro Referring [facility]available [facility] [place] [facility] Primary Care Unavailable Myles Rebollar Attending Unavailable Tommy, Alejandro Referring [facility]available [facility] [place] [facility] Primary Care Unavailable Gudla Alyssa PARKER Referring Unavailable Gudla Alyssa PARKER Attending [facility]available [facility] [place] [facility] Primary Care Unavailable Gudla Alyssa PARKER Attending [facility]available [facility] [place] [facility] Primary Care Unavailable Gudla Alyssa PARKER Referring Unavailable Gudla Alyssa PARKER Attending [facility]available [facility] [place] [facility] Primary Care Unavailable Gudla Alyssa PARKER Attending [facility]available [facility] [place] [facility] Primary Care Unavailable Myles Rebollar Attending Unavailable Tommy, Alejandro Referring Unavailable [facility] [place] [facility] Primary Care Unavailable Tommy, Alejandro Referring Unavailable [facility] [place] [facility] Primary Care Unavailable Myles Rebollar Attending Unavailable Myles Rebollar Attending Unavailable Tommy, Alejandro Referring Unavailable [facility] [place] [facility] Primary Care Unavailable Myles Rebollar Attending Unavailable Tommy, Alejandro Referring Unavailable [facility] [place] [facility] Primary Care Unavailable David Downey Attending Unavailable David Downey Consulting Unavailable Elizabeth Thomas Attending Unavailable Myles Rebollar Attending Unavailable Milaning, Alejandro Referring Unavailable [facility] [place] [facility] Primary Care Unavailable Alyssa Nguyen Attending Unavailable [facility] [place] [facility] Primary Care Unavailable Myles Rebollar Attending Unavailable Tommy, Alejandro Referring Unavailable [facility] [place] [facility] Primary Care Unavailable Danis Velez Attending Unavailable [facility] [place] [facility] Primary Care Unavailable Khadijah Lopez Attending Unavailable [facility] [place] [facility] Referring Unavailable [facility] [place] [facility] Primary Care Unavailable Marcus Sandoval Attending Unavailable Medications Current Medications Medication Drug Class(es) Dates Sig (Normalized) Sig (Original) furosemide 40 mg oral tablet (7 sources) Loop Diuretic Start: 09-22-2022 take 1 tablet by mouth once daily Furosemide (Lasix) 40 mg tablet Active 40 MG PO DAILY 30 September 21, 2022 11:00pm Completed/Discontinued Medications Medication Drug Class(es) Dates Sig (Normalized) Sig (Original) bacitracin zinc 0.5 unt/mg topical ointment (7 sources) Start: 09-22-2022 End: 07-02-2023 Bacitracin Zinc Discontinued 1 APPLIC TOPICAL TWICE A DAY September 22, 2022 9:18am July 02, 2023 4:09pm levoFLOXacin 500 mg oral tablet (6 sources) Quinolone Antimicrobial Start: 09-26-2022 End: 07-02-2023 take 500 mg by mouth once daily Levofloxacin Discontinued 500 MG PO DAILY September 25, 2022 11:00pm July 02, 2023 4:09pm potassium chloride 20 meq extended release oral tablet (7 sources) Start: 09-22-2022 End: 07-02-2023 take 20 mEq by mouth twice daily Potassium Chloride Discontinued 20 MEQ PO TWICE A DAY September 21, 2022 11:00pm July 02, 2023 4:09pm Problems Active Problems Problem Classification Problem Date Documented Da te Episodic/Chronic Administrative/social admission (16 sources) Homeless single person; Translations: [Homeless single person] 10-15-2019 Episodic Chronic ulcer of skin (20 sources) Ulcer of lower extremity; Translations: [Non-pressure 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 layer exposed] Onset: 08-16-2023 10-05-2022 Chronic Congestive heart failure; nonhypertensive (2 sources) Heart failure, unspecified; Translations: [Heart failure, unspecified] Onset: 09-17-2023 Chronic Essential hypertension (1 source) Essential (primary) hypertension; Translations: [Essential (primary) hypertension] Onset: 09-13-2023 Chronic Fluid and electrolyte disorders (11 sources) Hypokalemia; Translations: [Hypokalemia] 09-22-2022 Episodic Infective arthritis and osteomyelitis (except that caused by tuberculosis or sexually transmitted disease) (2 sources) Other acute osteomyelitis, left ankle and foot; Translations: [Other acute osteomyelitis, left ankle and foot] Onset: 09-17-2023 Chronic Other aftercare (1 source) Encounter for follow-up examination after completed treatment for conditions other than malignant neoplasm; Translations: [Encounter for follow-up examination after completed treatment for conditions other than malignant neoplasm] Onset: 06-23-2024 Episodic Other circulatory disease (1 source) Other specified peripheral vascular diseases; Translations: [Other specified peripheral vascular diseases] Onset: 03-14-2024 Chronic Other circulatory disease (3 sources) Elevated blood-pressure reading without diagnosis of hypertension; Translations: [Elevated blood-pressure reading, without diagnosis of hypertension] 07-02-2023 Episodic Other connective tissue disease (7 sources) Swelling of right lower limb; Translations: [Other specified soft tissue disorders] 10-15-2019 Episodic Other diseases of veins and lymphatics (7 sources) Lymphedema of bilateral lower limbs; Translations: [Lymphedema, not elsewhere classified] 09-22-2022 Chronic Other diseases of veins and lymphatics (6 sources) Lymphedema; Translations: [Lymphedema, not elsewhere classified] 10-05-2022 Chronic Other diseases of veins and lymphatics (10 sources) Lymphedema, not elsewhere classified; Translations: [Other lymphedema] Onset: 09-17-2023 10-11-2022 Chronic Other diseases of veins and lymphatics (3 sources) Stasis dermatitis; Translations: [Venous insufficiency (chronic) (peripheral)] 07-02-2023 Episodic Past or Other Problems Problem Classification Problem Date Documented Da te Episodic/Chronic Open wounds of extremities (18 sources) Open wound of foot except toes without complication; Translations: [Unspecified open wound, unspecified foot, initial encounter] Onset: 07-09-2023 09-22-2022 Episodic Skin and subcutaneous tissue infections (14 sources) Cellulitis of lower limb; Translations: [Cellulitis of right lower limb] Onset: 09-13-2023 10-15-2019 Episodic Results Test Name Value Interpretation Reference Range Facility Culture, Anaerobic Any Sourc sruthi 03-17-2024 CUAN [facility] Comment on above: Performed By: #### M 100.2000, M100.4001, M100.3000 ####[facility] [address] [place], [place], [address] Wound Cultureon 03-15-2024 [facility] Comment on above: Performed By: #### M 100.2000, M100.4001, M100.3000 ####[facility] [address] [place], [address] Gram Stainon 03-13-2024 GS HEEL Gram Stain Rare Epithelial cells Rare White Blood Cells 2+ Gram positive cocci 2+ Gram negative rods Normal [facility] Comment on above: Performed By: #### M 100.2000, M100.4001, M100.3000 ####[facility] [address] [place], [address] Culture, Fungus 8482on 12-23 CUF Normal [facility] Comment on above: Performed By: #### M 100.3000, M600.2000, M100.4001, M100.1999 ####[facility] [address] [place], [address] Culture, Anaerobic Any Sourc sruthi 11-25-2023 CUAN No anaerobic bacteria isolated. [facility] Comment on above: Performed By: #### M 100.3000, M600.2000, M100.4001, M100.1999 ####[facility] [address] [place], [address] Wound Cultureon 11-25-2023 WC [facility] Comment on above: Performed By: #### M 100.3000, M600.2000, M100.4001, M100.1999 ####[facility] [address] [place], [address] Gram Stainon 11-22-2023 GS Gram Stain 3+ Gram negative rods 1+ Gram positive cocci 2+ Red Blood Cells No Epithelial cells Rare White Blood Cells Normal [facility] Comment on above: Performed By: #### M 100.3000, M600.2000, M100.4001, M100.1999 ####[facility] [address] [place], [address] Lower Ext Art Exam w/o Exerc akilah 10-23-2023 Lower Ext Art Exam w/o Exercis Normal [facility] Venous Duplex US - Gee Extre mon 10-23-2023 Venous Duplex US - Gee Extrem Normal [facility] Wound Ctr History AND Physic evie 10-10-2023 Wound Ctr History & Physical Normal [facility] Basic Metabolic Profile (BMP )on 10-01-2023 BUN/CRE 18.1 RATIO Normal 10-20 [facility] Comment on above: Order Comment: 109.1 Performed By: #### L 500.2500, L501.5200 ####[facility] [address] [place], [address] CA,Total 9.5 mg/dL Normal 8.5-10.1 [facility] Comment on above: Order Comment: 109.1 Performed By: #### L 500.2500, L501.5200 ####[facility] [address] [place], [address] Chloride [Moles/Vol] 104 mmol/L Normal 98-107 [facility] Comment on above: Order Comment: 109.1 Performed By: #### L 500.2500, L501.5200 ####[facility] [address] [place], [address] CO2 [Moles/Vol] 29.0 mmol/L Normal 21.0-32.0 [facility] Comment on above: Order Comment: 109.1 Performed By: #### L 500.2500, L501.5200 ####[facility] [address] [place], [address] Creatinine [Mass/Vol] 0.83 mg/dL Normal 0.70-1.[address] [facility] Comment on above: Order Comment: 109.1 Result Comment: The validity of the calculated GFR GFRAA in patients over70 years has not been determined. Clinical correlation isessential. Performed By: #### L 500.2500, L501.5200 ####[facility] [address] [place], [address] EST GFR - AA 118 mL/min Normal >60 [facility] Comment on above: Order Comment: 109.1 Result Comment: Afri can Uruguayan GFR Calc Performed By: #### L 500.2500, L501.5200 ####[facility] [address] [place], [address] GAP 4 Low 5-15 [facility] Comment on above: Order Comment: 109.1 Performed By: #### L 500.2500, L501.5200 ####[facility] [address] [place], [address] GFR/1.73 sq M.predicted among non-blacks MDRD (S/P/Bld) [Vol rate/Area] 97 mL/min/{1.73_m2} Normal >60 [facility] Comment on above: Order Comment: 109.1 Result Comment: Non- GFR Calc Performed By: #### L 500.2500, L501.5200 ####[facility] [address] [place], [address] Glucose [Mass/Vol] 86 mg/dL Normal 74-106 [facility] Comment on above: Order Comment: 109.1 Performed By: #### L 500.2500, L501.5200 ####[facility] [address] [place], [address] Potassium [Moles/Vol] 4.0 mmol/L Normal 3.5-5.[address] [facility] Comment on above: Order Comment: 109.1 Performed By: #### L 500.2500, L501.5200 ####[facility] [address] [place], [address] Sodium [Moles/Vol] 137 mmol/L Normal 136-145 [facility] Comment on above: Order Comment: 109.1 Performed By: #### L 500.2500, L501.5200 ####[facility] [address] [place], [address] Urea nitrogen [Mass/Vol] 15 mg/dL Normal 7-18 [facility] Comment on above: Order Comment: 109.1 Performed By: #### L 500.2500, L501.5200 ####[facility] [address] [place], [address] Magnesiumon 10-01-2023 Magnesium [Mass/Vol] 2.4 mg/dL Normal 1.6-2.6 [facility] Comment on above: Order Comment: 109.1 Performed By: #### L 500.2500, L501.5200 ####[facility] [address] [place], [address] Basic Metabolic Profile (BMP )on 09-10-2023 BUN/CRE 23.6 RATIO High 03-02 [facility] Comment on above: Order Comment: 109.1 Performed By: #### L 500.2500 ####[facility] [address] [place], [address] CA,Total 8.9 mg/dL Normal 8.5-10.1 [facility] Comment on above: Order Comment: 109.1 Performed By: #### L 500.2500 ####[facility] [address] [place], [address] Chloride [Moles/Vol] 106 mmol/L Normal 98-107 [facility] Comment on above: Order Comment: 109.1 Performed By: #### L 500.2500 ####[facility] [address] [place], [address] CO2 [Moles/Vol] 30.0 mmol/L Normal 21.0-32.0 [facility] Comment on above: Order Comment: 109.1 Performed By: #### L 500.2500 ####[facility] [address] [place], [address] Creatinine [Mass/Vol] 0.85 mg/dL Normal 0.70-1.[address] [facility] Comment on above: Order Comment: 109.1 Result Comment: The validity of the calculated GFR GFRAA in patients over70 years has not been determined. Clinical correlation isessential. Performed By: #### L 500.2500 ####[facility] [address] [place], [address] EST GFR - AA 115 mL/min Normal >60 [facility] Comment on above: Order Comment: 109.1 Result Comment: Afri can [place]rugu[place] GFR Calc Performed By: #### L 500.2500 ####[facility] [address] [place], [address] GAP 3 Low 5-15 [facility] Comment on above: Order Comment: 109.1 Performed By: #### L 500.2500 ####[facility] [address] [place], [address] GFR/1.73 sq M.predicted among non-blacks MDRD (S/P/Bld) [Vol rate/Area] 95 mL/min/{1.73_m2} Normal >60 [facility] Comment on above: Order Comment: 109.1 Result Comment: Non- GFR Calc Performed By: #### L 500.2500 ####[facility] [address] [place], [address] Glucose [Mass/Vol] 92 mg/dL Normal 74-106 [facility] Comment on above: Order Comment: 109.1 Performed By: #### L 500.2500 ####[facility] [address] [place], [address] Potassium [Moles/Vol] 4.3 mmol/L Normal 3.5-5.[address] [facility] Comment on above: Order Comment: 109.1 Performed By: #### L 500.2500 ####[facility] [address] [place], [address] Sodium [Moles/Vol] 139 mmol/L Normal 136-145 [facility] Comment on above: Order Comment: 109.1 Performed By: #### L 500.2500 ####[facility] [address] [place], [address] Urea nitrogen [Mass/Vol] 20 mg/dL High 7-18 [facility] Comment on above: Order Comment: 109.1 Performed By: #### L 500.2500 ####[facility] [address] [place], [address] Acid Fast Bacillus Cultureon 09-01-2023 tAFBC [facility] Comment on above: Performed By: #### M 600.2000, M100.2000, M300.2000, M100.4001, M100.3000, M300.3000, M600.2200 ####[facility] [address] [place], [address] Acid Fast Bacillus Smear/Flu oron 09-01-2023 tafb Normal [facility] Comment on above: Performed By: #### M 600.2000, M100.2000, M300.2000, M100.4001, M100.3000, M300.3000, M600.2200 ####[facility] [address] [place], [address] Culture, Fungus 8482on 08-31 CUF Normal [facility] Comment on above: Performed By: #### M 600.2000, M100.2000, M300.2000, M100.4001, M100.3000, M300.3000, M600.2200 ####[facility] [address] [place], [address] Fungus Stain 8136on 09-01-19 24 FUNST Normal [facility] Comment on above: Performed By: #### M 600.2000, M100.2000, M300.2000, M100.4001, M100.3000, M300.3000, M600.2200 ####[facility] [address] [place], [address] Basic Metabolic Profile (BMP )on 08-27-2023 BUN/CRE 17.5 RATIO Normal 10-20 [facility] Comment on above: Order Comment: 109.1 Performed By: #### L 501.6710, L500.2500, L100.0100, L101.9900 ####[facility] [address] [place], [address] CA,Total 10.5 mg/dL High 8.5-10.1 [facility] Comment on above: Order Comment: 109.1 Performed By: #### L 501.6710, L500.2500, L100.0100, L101.9900 ####[facility] [address] [place], [address] Chloride [Moles/Vol] 105 mmol/L Normal 98-107 [facility] Comment on above: Order Comment: 109.1 Performed By: #### L 501.6710, L500.2500, L100.0100, L101.9900 ####[facility] [address] [place], [address] CO2 [Moles/Vol] 28.0 mmol/L Normal 21.0-32.0 [facility] Comment on above: Order Comment: 109.1 Performed By: #### L 501.6710, L500.2500, L100.0100, L101.9900 ####[facility] [address] [place], [address] Creatinine [Mass/Vol] 0.97 mg/dL Normal 0.70-1.[address] [facility] Comment on above: Order Comment: 109.1 Result Comment: The validity of the calculated GFR GFRAA in patients over70 years has not been determined. Clinical correlation isessential. Performed By: #### L 501.6710, L500.2500, L100.0100, L101.9900 ####[facility] [address] [place], [address] EST GFR - AA 98 mL/min Normal >60 [facility] Comment on above: Order Comment: 109.1 Result Comment: Afri can [place]rugu[place] GFR Calc Performed By: #### L 501.6710, L500.2500, L100.0100, L101.9900 ####[facility] [address] [place], [address] GAP 4 Low 5-15 [facility] Comment on above: Order Comment: 109.1 Performed By: #### L 501.6710, L500.2500, L100.0100, L101.9900 ####[facility] [address] [place], [address] GFR/1.73 sq M.predicted among non-blacks MDRD (S/P/Bld) [Vol rate/Area] 81 mL/min/{1.73_m2} Normal >60 [facility] Comment on above: Order Comment: 109.1 Result Comment: Non- GFR Calc Performed By: #### L 501.6710, L500.2500, L100.0100, L101.9900 ####[facility] [address] [place], [address] Glucose [Mass/Vol] 99 mg/dL Normal 74-106 [facility] Comment on above: Order Comment: 109.1 Performed By: #### L 501.6710, L500.2500, L100.0100, L101.9900 ####[facility] [address] [place], [address] Potassium [Moles/Vol] 3.9 mmol/L Normal 3.5-5.[address] [facility] Comment on above: Order Comment: 109.1 Performed By: #### L 501.6710, L500.2500, L100.0100, L101.9900 ####[facility] [address] [place], [address] Sodium [Moles/Vol] 137 mmol/L Normal 136-145 [facility] Comment on above: Order Comment: 109.1 Performed By: #### L 501.6710, L500.2500, L100.0100, L101.9900 ####[facility] [address] [place], [address] Urea nitrogen [Mass/Vol] 17 mg/dL Normal 7-18 [facility] Comment on above: Order Comment: 109.1 Performed By: #### L 501.6710, L500.2500, L100.0100, L101.9900 ####[facility] [address] [place], [address] CBC W/Diff, Automatedon 08-12 Absolute Neut 4.8 X10 3/uL Normal 2.0-7.7 [facility] Comment on above: Order Comment: 109.1 Performed By: #### L 501.6710, L500.2500, L100.0100, L101.9900 ####[facility] [address] [place], [address] Erythrocyte distribution width (RBC) [Ratio] 13.1 % Normal 11.6-14.6 [facility] Comment on above: Order Comment: 109.1 Performed By: #### L 501.6710, L500.2500, L100.0100, L101.9900 ####[facility] [address] [place], [address] Hematocrit (Bld) [Volume fraction] 46.9 % Normal 40-54 [facility] Comment on above: Order Comment: 109.1 Performed By: #### L 501.6710, L500.2500, L100.0100, L101.9900 ####[facility] [address] [place], [address] Hemoglobin (Bld) [Mass/Vol] 14.8 g/dL Normal 13.0-16.5 [facility] Comment on above: Order Comment: 109.1 Performed By: #### L 501.6710, L500.2500, L100.0100, L101.9900 ####[facility] [address] [place], [address] MCH (RBC) [Entitic mass] 29.0 pg Normal 27.0-32.0 [facility] Comment on above: Order Comment: 109.1 Performed By: #### L 501.6710, L500.2500, L100.0100, L101.9900 ####[facility] [address] [place], [address] MCHC (RBC) [Mass/Vol] 31.6 g/dL Low 32-[address] [facility] Comment on above: Order Comment: 109.1 Performed By: #### L 501.6710, L500.2500, L100.0100, L101.9900 ####[facility] [address] [place], [address] MCV (RBC) [Entitic vol] 92.0 fL Normal 80-94 [facility] Comment on above: Order Comment: 109.1 Performed By: #### L 501.6710, L500.2500, L100.0100, L101.9900 ####[facility] [address] [place], [address] Neutrophils/100 WBC (Bld) 71.1 % High 47-70 [facility] Comment on above: Order Comment: 109.1 Performed By: #### L 501.6710, L500.2500, L100.0100, L101.9900 ####[facility] [address] [place], [address] Platelets (Bld) [#/Vol] 295 10*3/uL Normal 150-450 [facility] Comment on above: Order Comment: 109.1 Performed By: #### L 501.6710, L500.2500, L100.0100, L101.9900 ####[facility] [address] [place], [address] RBC (Bld) [#/Vol] 5.10 10*6/uL Normal 4.6-6.2 [facility] Comment on above: Order Comment: 109.1 Performed By: #### L 501.6710, L500.2500, L100.0100, L101.9900 ####[facility] [address] [place], [address] RDW SD 44.8 fl High 35.1-43.9 [facility] Comment on above: Order Comment: 109.1 Performed By: #### L 501.6710, L500.2500, L100.0100, L101.9900 ####[facility] [address] [place], [address] WBC (Bld) [#/Vol] 6.8 10*3/uL Normal 4.4-11.0 [facility] Comment on above: Order Comment: 109.1 Performed By: #### L 501.6710, L500.2500, L100.0100, L101.9900 ####[facility] [address] [place], [address] CRPon 08-27-2023 C-REACTIVE PROT 17.50 mg/L High 0.0-3.0 [facility] Comment on above: Order Comment: 109.1 Result Comment: C-Re active Protein (CRP) provides useful information for thediagnosis, therapy and monitoring of inflammatory processesand associated diseases. For the evaluation of Relative Riskfor Cardiovascular Disease, a High Sensitivity CRP (HSCRP)should be ordered. Performed By: #### L 501.6710, L500.2500, L100.0100, L101.9900 ####[facility] [address] [place], [address] Erythrocyte Sed Rateon 08-26 SED RATE 27 mm/hr High 0-20 [facility] Comment on above: Order Comment: 109.1 Performed By: #### L 501.6710, L500.2500, L100.0100, L101.9900 ####[facility] [address] [place], [address] Basic Metabolic Profile (BMP )on 08-20-2023 BUN/CRE 19.3 RATIO Normal 10-20 [facility] Comment on above: Order Comment: 109-1 Performed By: #### L 500.2500, L501.6710, L101.9900, L100.0100 ####[facility] [address] [place], [address] CA,Total 9.2 mg/dL Normal 8.5-10.1 [facility] Comment on above: Order Comment: 109-1 Performed By: #### L 500.2500, L501.6710, L101.9900, L100.0100 ####[facility] [address] [place], [address] Chloride [Moles/Vol] 103 mmol/L Normal 98-107 [facility] Comment on above: Order Comment: 109-1 Performed By: #### L 500.2500, L501.6710, L101.9900, L100.0100 ####[facility] [address] [place], [address] CO2 [Moles/Vol] 30.0 mmol/L Normal 21.0-32.0 [facility] Comment on above: Order Comment: 109-1 Performed By: #### L 500.2500, L501.6710, L101.9900, L100.0100 ####[facility] [address] [place], [address] Creatinine [Mass/Vol] 0.88 mg/dL Normal 0.70-1.[address] [facility] Comment on above: Order Comment: 109-1 Result Comment: The validity of the calculated GFR GFRAA in patients over70 years has not been determined. Clinical correlation isessential. Performed By: #### L 500.2500, L501.6710, L101.9900, L100.0100 ####[facility] [address] [place], [address] EST GFR - AA 110 mL/min Normal >60 [facility] Comment on above: Order Comment: 109-1 Result Comment: Afri can [place]rugu[place] GFR Calc Performed By: #### L 500.2500, L501.6710, L101.9900, L100.0100 ####[facility] [address] [place], [address] GAP 4 Low 5-15 [facility] Comment on above: Order Comment: 109-1 Performed By: #### L 500.2500, L501.6710, L101.9900, L100.0100 ####[facility] [address] [place], [address] GFR/1.73 sq M.predicted among non-blacks MDRD (S/P/Bld) [Vol rate/Area] 91 mL/min/{1.73_m2} Normal >60 [facility] Comment on above: Order Comment: 109-1 Result Comment: Non- GFR Calc Performed By: #### L 500.2500, L501.6710, L101.9900, L100.0100 ####[facility] [address] [place], [address] Glucose [Mass/Vol] 97 mg/dL Normal 74-106 [facility] Comment on above: Order Comment: 109-1 Performed By: #### L 500.2500, L501.6710, L101.9900, L100.0100 ####[facility] [address] [place], [address] Potassium [Moles/Vol] 4.3 mmol/L Normal 3.5-5.[address] [facility] Comment on above: Order Comment: 109-1 Performed By: #### L 500.2500, L501.6710, L101.9900, L100.0100 ####[facility] [address] [place], [address] Sodium [Moles/Vol] 137 mmol/L Normal 136-145 [facility] Comment on above: Order Comment: 109-1 Performed By: #### L 500.2500, L501.6710, L101.9900, L100.0100 ####[facility] [address] [place], [address] Urea nitrogen [Mass/Vol] 17 mg/dL Normal 7-18 [facility] Comment on above: Order Comment: 109-1 Performed By: #### L 500.2500, L501.6710, L101.9900, L100.0100 ####[facility] [address] [place], [address] CBC W/Diff, Automatedon 04-0 8-2024 Absolute Lymph 0.83 X10 3/uL Normal 0.83-4.51 [facility] Comment on above: Order Comment: 109-1 Performed By: #### L 500.2500, L501.6710, L101.9900, L100.0100 ####[facility] [address] [place], [address] Absolute Neut 4.8 X10 3/uL Normal 2.0-7.7 [facility] Comment on above: Order Comment: 109-1 Performed By: #### L 500.2500, L501.6710, L101.9900, L100.0100 ####[facility] [address] [place], [address] Basophils/100 WBC (Bld) 0.8 % Normal 0-1 [facility] Comment on above: Order Comment: 109-1 Performed By: #### L 500.2500, L501.6710, L101.9900, L100.0100 ####[facility] [address] [place], [address] Eosinophils/100 WBC (Bld) 4.7 % Normal 0-5 [facility] Comment on above: Order Comment: 109-1 Performed By: #### L 500.2500, L501.6710, L101.9900, L100.0100 ####[facility] [address] [place], [address] Erythrocyte distribution width (RBC) [Ratio] 13.2 % Normal 11.6-14.6 [facility] Comment on above: Order Comment: 109-1 Performed By: #### L 500.2500, L501.6710, L101.9900, L100.0100 ####[facility] [address] [place], [address] Hematocrit (Bld) [Volume fraction] 42.7 % Normal 40-54 [facility] Comment on above: Order Comment: 109-1 Performed By: #### L 500.2500, L501.6710, L101.9900, L100.0100 ####[facility] [address] [place], [address] Hemoglobin (Bld) [Mass/Vol] 13.7 g/dL Normal 13.0-16.5 [facility] Comment on above: Order Comment: 109-1 Performed By: #### L 500.2500, L501.6710, L101.9900, L100.0100 ####[facility] [address] [place], [address] IG% 0.600 Normal 0.0-0.9 [facility] Comment on above: Order Comment: 109-1 Result Comment: IG% - Immature Granulocytes (promyelocytes, myelocytes andmetamyelocytes) > 1% indicates that a LEFT SHIFT is Present. Performed By: #### L 500.2500, L501.6710, L101.9900, L100.0100 ####[facility] [address] [place], [address] Lymphocytes/100 WBC (Bld) 12.6 % Low 19-41 [facility] Comment on above: Order Comment: 109-1 Performed By: #### L 500.2500, L501.6710, L101.9900, L100.0100 ####[facility] [address] [place], [address] MCH (RBC) [Entitic mass] 29.5 pg Normal 27.0-32.0 [facility] Comment on above: Order Comment: 109-1 Performed By: #### L 500.2500, L501.6710, L101.9900, L100.0100 ####[facility] [address] [place], [address] MCHC (RBC) [Mass/Vol] 32.1 g/dL Normal 32-[address] [facility] Comment on above: Order Comment: 109-1 Performed By: #### L 500.2500, L501.6710, L101.9900, L100.0100 ####[facility] [address] [place], [address] MCV (RBC) [Entitic vol] 92.0 fL Normal 80-94 [facility] Comment on above: Order Comment: 109-1 Performed By: #### L 500.2500, L501.6710, L101.9900, L100.0100 ####[facility] [address] [place], [address] Monocytes/100 WBC (Bld) 8.6 % Normal 0-10 [facility] Comment on above: Order Comment: 109-1 Performed By: #### L 500.2500, L501.6710, L101.9900, L100.0100 ####[facility] [address] [place], [address] Neutrophils/100 WBC (Bld) 72.7 % High 47-70 [facility] Comment on above: Order Comment: 109-1 Performed By: #### L 500.2500, L501.6710, L101.9900, L100.0100 ####[facility] [address] [place], [address] Nucleated RBC (Bld) [#/Vol] 0 10*3/uL Normal 0-5 [facility] Comment on above: Order Comment: 109-1 Performed By: #### L 500.2500, L501.6710, L101.9900, L100.0100 ####[facility] [address] [place], [address] Platelet mean volume (Bld) [Entitic vol] 9.2 fL Normal 6.2-12.0 [facility] Comment on above: Order Comment: 109-1 Performed By: #### L 500.2500, L501.6710, L101.9900, L100.0100 ####[facility] [address] [place], [address] Platelets (Bld) [#/Vol] 242 10*3/uL Normal 150-450 [facility] Comment on above: Order Comment: 109-1 Performed By: #### L 500.2500, L501.6710, L101.9900, L100.0100 ####[facility] [address] [place], [address] RBC (Bld) [#/Vol] 4.64 10*6/uL Normal 4.6-6.2 [facility] Comment on above: Order Comment: 109-1 Performed By: #### L 500.2500, L501.6710, L101.9900, L100.0100 ####[facility] [address] [place], [address] RDW SD 44.9 fl High 35.1-43.9 [facility] Comment on above: Order Comment: 109-1 Performed By: #### L 500.2500, L501.6710, L101.9900, L100.0100 ####[facility] [address] [place], [address] WBC (Bld) [#/Vol] 6.6 10*3/uL Normal 4.4-11.0 [facility] Comment on above: Order Comment: 109-1 Performed By: #### L 500.2500, L501.6710, L101.9900, L100.0100 ####[facility] [address] [place], [address] CRPon 08-20-2023 C-REACTIVE PROT 15.30 mg/L High 0.0-3.0 [facility] Comment on above: Order Comment: 109-1 Result Comment: C-Re active Protein (CRP) provides useful information for thediagnosis, therapy and monitoring of inflammatory processesand associated diseases. For the evaluation of Relative Riskfor Cardiovascular Disease, a High Sensitivity CRP (HSCRP)should be ordered. Performed By: #### L 500.2500, L501.6710, L101.9900, L100.0100 ####[facility] [address] [place], [address] Erythrocyte Sed Rateon 08-19 SED RATE 16 mm/hr Normal 0-20 [facility] Comment on above: Order Comment: 109-1 Performed By: #### L 500.2500, L501.6710, L101.9900, L100.0100 ####[facility] [address] [place], [address] Basic Metabolic Profile (BMP )on 08-13-2023 BUN/CRE 18.7 RATIO Normal 10-20 [facility] Comment on above: Order Comment: 109.1 Performed By: #### L 100.0100, L101.9900, L500.2500, L501.6710 ####[facility] [address] [place], [address] CA,Total 9.3 mg/dL Normal 8.5-10.1 [facility] Comment on above: Order Comment: 109.1 Performed By: #### L 100.0100, L101.9900, L500.2500, L501.6710 ####[facility] [address] [place], [address] Chloride [Moles/Vol] 107 mmol/L Normal 98-107 [facility] Comment on above: Order Comment: 109.1 Performed By: #### L 100.0100, L101.9900, L500.2500, L501.6710 ####[facility] [address] [place], [address] CO2 [Moles/Vol] 27.0 mmol/L Normal 21.0-32.0 [facility] Comment on above: Order Comment: 109.1 Performed By: #### L 100.0100, L101.9900, L500.2500, L501.6710 ####[facility] [address] [place], [address] Creatinine [Mass/Vol] 0.96 mg/dL Normal 0.70-1.[address] [facility] Comment on above: Order Comment: 109.1 Result Comment: The validity of the calculated GFR GFRAA in patients over70 years has not been determined. Clinical correlation isessential. Performed By: #### L 100.0100, L101.9900, L500.2500, L501.6710 ####[facility] [address] [place], [address] EST GFR - AA 99 mL/min Normal >60 [facility] Comment on above: Order Comment: 109.1 Result Comment: Afri can [place] GFR Calc Performed By: #### L 100.0100, L101.9900, L500.2500, L501.6710 ####[facility] [address] [place], [address] GAP 5 Normal 5-15 [facility] Comment on above: Order Comment: 109.1 Performed By: #### L 100.0100, L101.9900, L500.2500, L501.6710 ####[facility] [address] [place], [address] GFR/1.73 sq M.predicted among non-blacks MDRD (S/P/Bld) [Vol rate/Area] 82 mL/min/{1.73_m2} Normal >60 [facility] Comment on above: Order Comment: 109.1 Result Comment: Non- GFR Calc Performed By: #### L 100.0100, L101.9900, L500.2500, L501.6710 ####[facility] [address] [place], [address] Glucose [Mass/Vol] 97 mg/dL Normal 74-106 [facility] Comment on above: Order Comment: 109.1 Performed By: #### L 100.0100, L101.9900, L500.2500, L501.6710 ####[facility] [address] [place], [address] Potassium [Moles/Vol] 3.9 mmol/L Normal 3.5-5.[address] [facility] Comment on above: Order Comment: 109.1 Performed By: #### L 100.0100, L101.9900, L500.2500, L501.6710 ####[facility] [address] [place], [address] Sodium [Moles/Vol] 139 mmol/L Normal 136-145 [facility] Comment on above: Order Comment: 109.1 Performed By: #### L 100.0100, L101.9900, L500.2500, L501.6710 ####[facility] [address] [place], [address] Urea nitrogen [Mass/Vol] 18 mg/dL Normal 7-18 [facility] Comment on above: Order Comment: 109.1 Performed By: #### L 100.0100, L101.9900, L500.2500, L501.6710 ####[facility] [address] [place], [address] CBC W/Diff, Automatedon 04-0 1-4 Absolute Lymph 0.64 X10 3/uL Low 0.83-4.51 [facility] Comment on above: Order Comment: 109.1 Performed By: #### L 100.0100, L101.9900, L500.2500, L501.6710 ####[facility] [address] [place], [address] Absolute Neut 5.4 X10 3/uL Normal 2.0-7.7 [facility] Comment on above: Order Comment: 109.1 Performed By: #### L 100.0100, L101.9900, L500.2500, L501.6710 ####[facility] [address] [place], [address] Basophils/100 WBC (Bld) 0.8 % Normal 0-1 [facility] Comment on above: Order Comment: 109.1 Performed By: #### L 100.0100, L101.9900, L500.2500, L501.6710 ####[facility] [address] [place], [address] Eosinophils/100 WBC (Bld) 3.8 % Normal 0-5 [facility] Comment on above: Order Comment: 109.1 Performed By: #### L 100.0100, L101.9900, L500.2500, L501.6710 ####[facility] [address] [place], [address] Erythrocyte distribution width (RBC) [Ratio] 13.4 % Normal 11.6-14.6 [facility] Comment on above: Order Comment: 109.1 Performed By: #### L 100.0100, L101.9900, L500.2500, L501.6710 ####[facility] [address] [place], [address] Hematocrit (Bld) [Volume fraction] 44.9 % Normal 40-54 [facility] Comment on above: Order Comment: 109.1 Performed By: #### L 100.0100, L101.9900, L500.2500, L501.6710 ####[facility] [address] [place], [address] Hemoglobin (Bld) [Mass/Vol] 14.1 g/dL Normal 13.0-16.5 [facility] Comment on above: Order Comment: 109.1 Performed By: #### L 100.0100, L101.9900, L500.2500, L501.6710 ####[facility] [address] [place], [address] IG% 0.600 Normal 0.0-0.9 [facility] Comment on above: Order Comment: 109.1 Result Comment: IG% - Immature Granulocytes (promyelocytes, myelocytes andmetamyelocytes) > 1% indicates that a LEFT SHIFT is Present. Performed By: #### L 100.0100, L101.9900, L500.2500, L501.6710 ####[facility] [address] [place], [address] Lymphocytes/100 WBC (Bld) 9.0 % Low 19-41 [facility] Comment on above: Order Comment: 109.1 Performed By: #### L 100.0100, L101.9900, L500.2500, L501.6710 ####[facility] [address] [place], [address] MCH (RBC) [Entitic mass] 29.3 pg Normal 27.0-32.0 [facility] Comment on above: Order Comment: 109.1 Performed By: #### L 100.0100, L101.9900, L500.2500, L501.6710 ####[facility] [address] [place], [address] MCHC (RBC) [Mass/Vol] 31.4 g/dL Low 32-[address] [facility] Comment on above: Order Comment: 109.1 Performed By: #### L 100.0100, L101.9900, L500.2500, L501.6710 ####[facility] [address] [place], [address] MCV (RBC) [Entitic vol] 93.3 fL Normal 80-94 [facility] Comment on above: Order Comment: 109.1 Performed By: #### L 100.0100, L101.9900, L500.2500, L501.6710 ####[facility] [address] [place], [address] Monocytes/100 WBC (Bld) 10.9 % High 0-10 [facility] Comment on above: Order Comment: 109.1 Performed By: #### L 100.0100, L101.9900, L500.2500, L501.6710 ####[facility] [address] [place], [address] Neutrophils/100 WBC (Bld) 74.9 % High 47-70 [facility] Comment on above: Order Comment: 109.1 Performed By: #### L 100.0100, L101.9900, L500.2500, L501.6710 ####[facility] [address] [place], [address] Nucleated RBC (Bld) [#/Vol] 0 10*3/uL Normal 0-5 [facility] Comment on above: Order Comment: 109.1 Performed By: #### L 100.0100, L101.9900, L500.2500, L501.6710 ####[facility] [address] [place], [address] Platelet mean volume (Bld) [Entitic vol] 9.9 fL Normal 6.2-12.0 [facility] Comment on above: Order Comment: 109.1 Performed By: #### L 100.0100, L101.9900, L500.2500, L501.6710 ####[facility] [address] [place], [address] Platelets (Bld) [#/Vol] 233 10*3/uL Normal 150-450 [facility] Comment on above: Order Comment: 109.1 Performed By: #### L 100.0100, L101.9900, L500.2500, L501.6710 ####[facility] [address] [place], [address] RBC (Bld) [#/Vol] 4.81 10*6/uL Normal 4.6-6.2 [facility] Comment on above: Order Comment: 109.1 Performed By: #### L 100.0100, L101.9900, L500.2500, L501.6710 ####[facility] [address] [place], [address] RDW SD 45.9 fl High 35.1-43.9 [facility] Comment on above: Order Comment: 109.1 Performed By: #### L 100.0100, L101.9900, L500.2500, L501.6710 ####[facility] [address] [place], [address] WBC (Bld) [#/Vol] 7.1 10*3/uL Normal 4.4-11.0 [facility] Comment on above: Order Comment: 109.1 Performed By: #### L 100.0100, L101.9900, L500.2500, L501.6710 ####[facility] [address] [place], [address] CRPon 08-13-2023 C-REACTIVE PROT 33.90 mg/L High 0.0-3.0 [facility] Comment on above: Order Comment: 109.1 Result Comment: C-Re active Protein (CRP) provides useful information for thediagnosis, therapy and monitoring of inflammatory processesand associated diseases. For the evaluation of Relative Riskfor Cardiovascular Disease, a High Sensitivity CRP (HSCRP)should be ordered. Performed By: #### L 100.0100, L101.9900, L500.2500, L501.6710 ####[facility] [address] [place], [address] Erythrocyte Sed Rateon 08-12 SED RATE 15 mm/hr Normal 0-20 [facility] Comment on above: Order Comment: 109.1 Performed By: #### L 100.0100, L101.9900, L500.2500, L501.6710 ####[facility] [address] [place], [address] Basic Metabolic Profile (BMP )on 08-06-2023 BUN/CRE 16.2 RATIO Normal 10-20 [facility] Comment on above: Order Comment: 109-1 Performed By: #### L 101.9900, L500.2500, L100.0100, L501.6710 ####[facility] [address] [place], [address] CA,Total 9.3 mg/dL Normal 8.5-10.1 [facility] Comment on above: Order Comment: 109-1 Performed By: #### L 101.9900, L500.2500, L100.0100, L501.6710 ####[facility] [address] [place], [address] Chloride [Moles/Vol] 107 mmol/L Normal 98-107 [facility] Comment on above: Order Comment: 109-1 Performed By: #### L 101.9900, L500.2500, L100.0100, L501.6710 ####[facility] [address] [place], [address] CO2 [Moles/Vol] 27.0 mmol/L Normal 21.0-32.0 [facility] Comment on above: Order Comment: 109-1 Performed By: #### L 101.9900, L500.2500, L100.0100, L501.6710 ####[facility] [address] [place], [address] Creatinine [Mass/Vol] 0.99 mg/dL Normal 0.70-1.[address] [facility] Comment on above: Order Comment: 109-1 Result Comment: The validity of the calculated GFR GFRAA in patients over70 years has not been determined. Clinical correlation isessential. Performed By: #### L 101.9900, L500.2500, L100.0100, L501.6710 ####[facility] [address] [place], [address] EST GFR - AA 96 mL/min Normal >60 [facility] Comment on above: Order Comment: 109-1 Result Comment: Afri can [place] GFR Calc Performed By: #### L 101.9900, L500.2500, L100.0100, L501.6710 ####[facility] [address] [place], [address] GAP 5 Normal 5-15 [facility] Comment on above: Order Comment: 109-1 Performed By: #### L 101.9900, L500.2500, L100.0100, L501.6710 ####[facility] [address] [place], [address] GFR/1.73 sq M.predicted among non-blacks MDRD (S/P/Bld) [Vol rate/Area] 79 mL/min/{1.73_m2} Normal >60 [facility] Comment on above: Order Comment: 109-1 Result Comment: Non- GFR Calc Performed By: #### L 101.9900, L500.2500, L100.0100, L501.6710 ####[facility] [address] [place], [address] Glucose [Mass/Vol] 94 mg/dL Normal 74-106 [facility] Comment on above: Order Comment: 109-1 Performed By: #### L 101.9900, L500.2500, L100.0100, L501.6710 ####[facility] [address] [place], [address] Potassium [Moles/Vol] 4.0 mmol/L Normal 3.5-5.[address] [facility] Comment on above: Order Comment: 109-1 Performed By: #### L 101.9900, L500.2500, L100.0100, L501.6710 ####[facility] [address] [place], [address] Sodium [Moles/Vol] 139 mmol/L Normal 136-145 [facility] Comment on above: Order Comment: 109-1 Performed By: #### L 101.9900, L500.2500, L100.0100, L501.6710 ####[facility] [address] [place], [address] Urea nitrogen [Mass/Vol] 16 mg/dL Normal 7-18 [facility] Comment on above: Order Comment: 109-1 Performed By: #### L 101.9900, L500.2500, L100.0100, L501.6710 ####[facility] [address] [place], [address] CBC W/Diff, Automatedon 07-13 Absolute Lymph 0.90 X10 3/uL Normal 0.83-4.51 [facility] Comment on above: Performed By: #### L 101.9900, L500.2500, L100.0100, L501.6710 ####[facility] [address] [place], [address] Absolute Neut 3.6 X10 3/uL Normal 2.0-7.7 [facility] Comment on above: Performed By: #### L 101.9900, L500.2500, L100.0100, L501.6710 ####[facility] [address] [place], [address] Basophils/100 WBC (Bld) 1.1 % High 0-1 [facility] Comment on above: Performed By: #### L 101.9900, L500.2500, L100.0100, L501.6710 ####[facility] [address] [place], [address] Eosinophils/100 WBC (Bld) 3.8 % Normal 0-5 [facility] Comment on above: Performed By: #### L 101.9900, L500.2500, L100.0100, L501.6710 ####[facility] [address] [place], [address] Erythrocyte distribution width (RBC) [Ratio] 14.0 % Normal 11.6-14.6 [facility] Comment on above: Performed By: #### L 101.9900, L500.2500, L100.0100, L501.6710 ####[facility] [address] [place], [address] Hematocrit (Bld) [Volume fraction] 40.3 % Normal 40-54 [facility] Comment on above: Performed By: #### L 101.9900, L500.2500, L100.0100, L501.6710 ####[facility] [address] [place], [address] Hemoglobin (Bld) [Mass/Vol] 12.8 g/dL Low 13.0-16.5 [facility] Comment on above: Performed By: #### L 101.9900, L500.2500, L100.0100, L501.6710 ####[facility] [address] [place], [address] IG% 0.600 Normal 0.0-0.9 [facility] Comment on above: Result Comment: IG% - Immature Granulocytes (promyelocytes, myelocytes andmetamyelocytes) > 1% indicates that a LEFT SHIFT is Present. Performed By: #### L 101.9900, L500.2500, L100.0100, L501.6710 ####[facility] [address] [place], [address] Lymphocytes/100 WBC (Bld) 17.0 % Low 19-41 [facility] Comment on above: Performed By: #### L 101.9900, L500.2500, L100.0100, L501.6710 ####[facility] [address] [place], [address] MCH (RBC) [Entitic mass] 29.4 pg Normal 27.0-32.0 [facility] Comment on above: Performed By: #### L 101.9900, L500.2500, L100.0100, L501.6710 ####[facility] [address] [place], [address] MCHC (RBC) [Mass/Vol] 31.8 g/dL Low 32-[address] [facility] Comment on above: Performed By: #### L 101.9900, L500.2500, L100.0100, L501.6710 ####[facility] [address] [place], [address] MCV (RBC) [Entitic vol] 92.6 fL Normal 80-94 [facility] Comment on above: Performed By: #### L 101.9900, L500.2500, L100.0100, L501.6710 ####[facility] [address] [place], [address] Monocytes/100 WBC (Bld) 9.8 % Normal 0-10 [facility] [facility] Comment on above: Performed By: #### L 101.9900, L500.2500, L100.0100, L501.6710 ####[facility] [address] [place], [address] Neutrophils/100 WBC (Bld) 67.7 % Normal 47-70 [facility] Comment on above: Performed By: #### L 101.9900, L500.2500, L100.0100, L501.6710 ####[facility] [address] [place], [address] Nucleated RBC (Bld) [#/Vol] 0 10*3/uL Normal 0-5 [facility] Comment on above: Performed By: #### L 101.9900, L500.2500, L100.0100, L501.6710 ####[facility] [address] [place], [address] Platelet mean volume (Bld) [Entitic vol] 9.4 fL Normal 6.2-12.0 [facility] Comment on above: Performed By: #### L 101.9900, L500.2500, L100.0100, L501.6710 ####[facility] [address] [place], [address] Platelets (Bld) [#/Vol] 230 10*3/uL Normal 150-450 [facility] Comment on above: Performed By: #### L 101.9900, L500.2500, L100.0100, L501.6710 ####[facility] [address] [place], [address] RBC (Bld) [#/Vol] 4.35 10*6/uL Low 4.6-6.2 [facility] Comment on above: Performed By: #### L 101.9900, L500.2500, L100.0100, L501.6710 ####[facility] [address] [place], [address] RDW SD 47.8 fl High 35.1-43.9 [facility] Comment on above: Performed By: #### L 101.9900, L500.2500, L100.0100, L501.6710 ####[facility] [address] [place], [address] WBC (Bld) [#/Vol] 5.3 10*3/uL Normal 4.4-11.0 [facility] Comment on above: Performed By: #### L 101.9900, L500.2500, L100.0100, L501.6710 ####[facility] [address] [place], [address] CRPon 08-06-2023 C-REACTIVE PROT 10.30 mg/L High 0.0-3.0 [facility] Comment on above: Order Comment: 109-1 Result Comment: C-Re active Protein (CRP) provides useful information for thediagnosis, therapy and monitoring of inflammatory processesand associated diseases. For the evaluation of Relative Riskfor Cardiovascular Disease, a High Sensitivity CRP (HSCRP)should be ordered. Performed By: #### L 101.9900, L500.2500, L100.0100, L501.6710 ####[facility] [address] [place], [address] Erythrocyte Sed Rateon 08-05 SED RATE 24 mm/hr High 0-20 [facility] Comment on above: Performed By: #### L 101.9900, L500.2500, L100.0100, L501.6710 ####[facility] [address] [place], [address] Basic Metabolic Profile (BMP )on 07-30-2023 BUN/CRE 16.6 RATIO Normal 10-20 [facility] Comment on above: Order Comment: 109-1 Performed By: #### L 101.9900, L501.6710, L100.0100, L500.2500 ####[facility] [address] [place], [address] CA,Total 9.3 mg/dL Normal 8.5-10.1 [facility] Comment on above: Order Comment: 109-1 Performed By: #### L 101.9900, L501.6710, L100.0100, L500.2500 ####[facility] [address] [place], [address] Chloride [Moles/Vol] 107 mmol/L Normal 98-107 [facility] Comment on above: Order Comment: 109-1 Performed By: #### L 101.9900, L501.6710, L100.0100, L500.2500 ####[facility] [address] [place], [address] CO2 [Moles/Vol] 29.0 mmol/L Normal 21.0-32.0 [facility] Comment on above: Order Comment: 109-1 Performed By: #### L 101.9900, L501.6710, L100.0100, L500.2500 ####[facility] [address] [place], [address] Creatinine [Mass/Vol] 0.96 mg/dL Normal 0.70-1.[address] [facility] Comment on above: Order Comment: 109-1 Result Comment: The validity of the calculated GFR GFRAA in patients over70 years has not been determined. Clinical correlation isessential. Performed By: #### L 101.9900, L501.6710, L100.0100, L500.2500 ####[facility] [address] [place], [address] EST GFR - AA 99 mL/min Normal >60 [facility] Comment on above: Order Comment: 109-1 Result Comment: Afri can Uruguayan GFR Calc Performed By: #### L 101.9900, L501.6710, L100.0100, L500.2500 ####[facility] [address] [place], [address] GAP 4 Low 5-15 [facility] Comment on above: Order Comment: 109-1 Performed By: #### L 101.9900, L501.6710, L100.0100, L500.2500 ####[facility] [address] [place], [address] GFR/1.73 sq M.predicted among non-blacks MDRD (S/P/Bld) [Vol rate/Area] 82 mL/min/{1.73_m2} Normal >60 [facility] Comment on above: Order Comment: 109-1 Result Comment: Non- GFR Calc Performed By: #### L 101.9900, L501.6710, L100.0100, L500.2500 ####[facility] [address] [place], [address] Glucose [Mass/Vol] 91 mg/dL Normal 74-106 [facility] Comment on above: Order Comment: 109-1 Performed By: #### L 101.9900, L501.6710, L100.0100, L500.2500 ####[facility] [address] [place], [address] Potassium [Moles/Vol] 3.8 mmol/L Normal 3.5-5.[address] [facility] Comment on above: Order Comment: 109-1 Performed By: #### L 101.9900, L501.6710, L100.0100, L500.2500 ####[facility] [address] [place], [address] Sodium [Moles/Vol] 140 mmol/L Normal 136-145 [facility] Comment on above: Order Comment: 109-1 Performed By: #### L 101.9900, L501.6710, L100.0100, L500.2500 ####[facility] [address] [place], [address] Urea nitrogen [Mass/Vol] 16 mg/dL Normal 7-18 [facility] Comment on above: Order Comment: 109-1 Performed By: #### L 101.9900, L501.6710, L100.0100, L500.2500 ####[facility] [address] [place], [address] CBC W/Diff, Automatedon - Absolute Lymph 0.82 X10 3/uL Low 0.83-4.51 [facility] Comment on above: Performed By: #### L 101.9900, L501.6710, L100.0100, L500.2500 ####[facility] [address] [place], [address] Absolute Neut 3.3 X10 3/uL Normal 2.0-7.7 [facility] Comment on above: Performed By: #### L 101.9900, L501.6710, L100.0100, L500.2500 ####[facility] [address] [place], [address] Basophils/100 WBC (Bld) 1.4 % High 0-1 [facility] Comment on above: Performed By: #### L 101.9900, L501.6710, L100.0100, L500.2500 ####[facility] [address] [place], [address] Eosinophils/100 WBC (Bld) 5.4 % High 0-5 [facility] Comment on above: Performed By: #### L 101.9900, L501.6710, L100.0100, L500.2500 ####[facility] [address] [place], [address] Erythrocyte distribution width (RBC) [Ratio] 14.7 % High 11.6-14.6 [facility] Comment on above: Performed By: #### L 101.9900, L501.6710, L100.0100, L500.2500 ####[facility] [address] [place], [address] Hematocrit (Bld) [Volume fraction] 38.6 % Low 40-54 [facility] Comment on above: Performed By: #### L 101.9900, L501.6710, L100.0100, L500.2500 ####[facility] [address] [place], [address] Hemoglobin (Bld) [Mass/Vol] 12.1 g/dL Low 13.0-16.5 [facility] Comment on above: Performed By: #### L 101.9900, L501.6710, L100.0100, L500.2500 ####[facility] [address] [place], [address] IG% 0.400 Normal 0.0-0.9 [facility] Comment on above: Result Comment: IG% - Immature Granulocytes (promyelocytes, myelocytes andmetamyelocytes) > 1% indicates that a LEFT SHIFT is Present. Performed By: #### L 101.9900, L501.6710, L100.0100, L500.2500 ####[facility] [address] [place], [address] Lymphocytes/100 WBC (Bld) 16.5 % Low 19-41 [facility] Comment on above: Performed By: #### L 101.9900, L501.6710, L100.0100, L500.2500 ####[facility] [address] [place], [address] MCH (RBC) [Entitic mass] 29.7 pg Normal 27.0-32.0 [facility] Comment on above: Performed By: #### L 101.9900, L501.6710, L100.0100, L500.2500 ####[facility] [address] [place], [address] MCHC (RBC) [Mass/Vol] 31.3 g/dL Low 32-[address] [facility] Comment on above: Performed By: #### L 101.9900, L501.6710, L100.0100, L500.2500 ####[facility] [address] [place], [address] MCV (RBC) [Entitic vol] 94.6 fL High 80-94 [facility] Comment on above: Performed By: #### L 101.9900, L501.6710, L100.0100, L500.2500 ####[facility] [address] [place], [address] Monocytes/100 WBC (Bld) 9.1 % Normal 0-10 [facility] Comment on above: Performed By: #### L 101.9900, L501.6710, L100.0100, L500.2500 ####[facility] [address] [place], [address] Neutrophils/100 WBC (Bld) 67.2 % Normal 47-70 [facility] Comment on above: Performed By: #### L 101.9900, L501.6710, L100.0100, L500.2500 ####[facility] [address] [place], [address] Nucleated RBC (Bld) [#/Vol] 0 10*3/uL Normal 0-5 [facility] Comment on above: Performed By: #### L 101.9900, L501.6710, L100.0100, L500.2500 ####[facility] [address] [place], [address] Platelet mean volume (Bld) [Entitic vol] 9.2 fL Normal 6.2-12.0 [facility] Comment on above: Performed By: #### L 101.9900, L501.6710, L100.0100, L500.2500 ####[facility] [address] [place], [address] Platelets (Bld) [#/Vol] 274 10*3/uL Normal 150-450 [facility] Comment on above: Performed By: #### L 101.9900, L501.6710, L100.0100, L500.2500 ####[facility] [address] [place], [address] RBC (Bld) [#/Vol] 4.08 10*6/uL Low 4.6-6.2 [facility] Comment on above: Performed By: #### L 101.9900, L501.6710, L100.0100, L500.2500 ####[facility] [address] [place], [address] RDW SD 51.1 fl High 35.1-43.9 [facility] Comment on above: Performed By: #### L 101.9900, L501.6710, L100.0100, L500.2500 ####[facility] [address] [place], [address] WBC (Bld) [#/Vol] 5.0 10*3/uL Normal 4.4-11.0 [facility] Comment on above: Performed By: #### L 101.9900, L501.6710, L100.0100, L500.2500 ####[facility] [address] [place], [address] CRPon 07-30-2023 C-REACTIVE PROT 11.20 mg/L High 0.0-3.0 [facility] Comment on above: Order Comment: 109-1 Result Comment: C-Re active Protein (CRP) provides useful information for thediagnosis, therapy and monitoring of inflammatory processesand associated diseases. For the evaluation of Relative Riskfor Cardiovascular Disease, a High Sensitivity CRP (HSCRP)should be ordered. Performed By: #### L 101.9900, L501.6710, L100.0100, L500.2500 ####[facility] [address] [place], [address] Erythrocyte Sed Rateon 07-29 SED RATE 23 mm/hr High 0-20 [facility] Comment on above: Performed By: #### L 101.9900, L501.6710, L100.0100, L500.2500 ####[facility] [address] [place], [address] Basic Metabolic Profile (BMP )on 07-23-2023 BUN/CRE 13.7 RATIO Normal 10-20 [facility] Comment on above: Order Comment: 109-1 Performed By: #### L 500.2500, L100.0100, L503.6150, L501.6710, L101.9900, L503.6550, L503.0105 ####[facility] [address] [place], [address] CA,Total 8.7 mg/dL Normal 8.5-10.1 [facility] Comment on above: Order Comment: 109-1 Performed By: #### L 500.2500, L100.0100, L503.6150, L501.6710, L101.9900, L503.6550, L503.0105 ####[facility] [address] [place], [address] Chloride [Moles/Vol] 107 mmol/L Normal 98-107 [facility] Comment on above: Order Comment: 109-1 Performed By: #### L 500.2500, L100.0100, L503.6150, L501.6710, L101.9900, L503.6550, L503.0105 ####[facility] [address] [place], [address] CO2 [Moles/Vol] 31.0 mmol/L Normal 21.0-32.0 [facility] Comment on above: Order Comment: 109-1 Performed By: #### L 500.2500, L100.0100, L503.6150, L501.6710, L101.9900, L503.6550, L503.0105 ####[facility] [address] [place], [address] Creatinine [Mass/Vol] 0.88 mg/dL Normal 0.70-1.[address] [facility] Comment on above: Order Comment: 109-1 Result Comment: The validity of the calculated GFR GFRAA in patients over70 years has not been determined. Clinical correlation isessential. Performed By: #### L 500.2500, L100.0100, L503.6150, L501.6710, L101.9900, L503.6550, L503.0105 ####[facility] [address] [place], [address] EST GFR - AA 110 mL/min Normal >60 [facility] Comment on above: Order Comment: 109-1 Result Comment: Afri can [place] GFR Calc Performed By: #### L 500.2500, L100.0100, L503.6150, L501.6710, L101.9900, L503.6550, L503.0105 ####[facility] [address] [place], [address] GAP 6 Normal 5-15 [facility] Comment on above: Order Comment: 109-1 Performed By: #### L 500.2500, L100.0100, L503.6150, L501.6710, L101.9900, L503.6550, L503.0105 ####[facility] [address] [place], [address] GFR/1.73 sq M.predicted among non-blacks MDRD (S/P/Bld) [Vol rate/Area] 91 mL/min/{1.73_m2} Normal >60 [facility] Comment on above: Order Comment: 109-1 Result Comment: Non- GFR Calc Performed By: #### L 500.2500, L100.0100, L503.6150, L501.6710, L101.9900, L503.6550, L503.0105 ####[facility] [address] [place], [address] Glucose [Mass/Vol] 87 mg/dL Normal 74-106 [facility] Comment on above: Order Comment: 109-1 Performed By: #### L 500.2500, L100.0100, L503.6150, L501.6710, L101.9900, L503.6550, L503.0105 ####[facility] [address] [place], [address] Potassium [Moles/Vol] 3.5 mmol/L Normal 3.5-5.[address] [facility] Comment on above: Order Comment: 109-1 Performed By: #### L 500.2500, L100.0100, L503.6150, L501.6710, L101.9900, L503.6550, L503.0105 ####[facility] [address] [place], [address] Sodium [Moles/Vol] 144 mmol/L Normal 136-145 [facility] Comment on above: Order Comment: 109-1 Performed By: #### L 500.2500, L100.0100, L503.6150, L501.6710, L101.9900, L503.6550, L503.0105 ####[facility] [address] [place], [address] Urea nitrogen [Mass/Vol] 12 mg/dL Normal 7-18 [facility] Comment on above: Order Comment: 109-1 Performed By: #### L 500.2500, L100.0100, L503.6150, L501.6710, L101.9900, L503.6550, L503.0105 ####[facility] [address] [place], [address] CBC W/Diff, Automatedon 07-12 Absolute Lymph 1.01 X10 3/uL Normal 0.83-4.51 [facility] Comment on above: Performed By: #### L 500.2500, L100.0100, L503.6150, L501.6710, L101.9900, L503.6550, L503.0105 ####[facility] [address] [place], [address] Absolute Neut 4.8 X10 3/uL Normal 2.0-7.7 [facility] Comment on above: Performed By: #### L 500.2500, L100.0100, L503.6150, L501.6710, L101.9900, L503.6550, L503.0105 ####[facility] [address] [place], [address] Basophils/100 WBC (Bld) 0.9 % Normal 0-1 [facility] Comment on above: Performed By: #### L 500.2500, L100.0100, L503.6150, L501.6710, L101.9900, L503.6550, L503.0105 ####[facility] [address] [place], [address] Eosinophils/100 WBC (Bld) 6.5 % High 0-5 [facility] Comment on above: Performed By: #### L 500.2500, L100.0100, L503.6150, L501.6710, L101.9900, L503.6550, L503.0105 ####[facility] [address] [place], [address] Erythrocyte distribution width (RBC) [Ratio] 14.6 % Normal 11.6-14.6 [facility] Comment on above: Performed By: #### L 500.2500, L100.0100, L503.6150, L501.6710, L101.9900, L503.6550, L503.0105 ####[facility] [address] [place], [address] Hematocrit (Bld) [Volume fraction] 34.1 % Low 40-54 [facility] Comment on above: Performed By: #### L 500.2500, L100.0100, L503.6150, L501.6710, L101.9900, L503.6550, L503.0105 ####[facility] [address] [place], [address] Hemoglobin (Bld) [Mass/Vol] 10.4 g/dL Low 13.0-16.5 [facility] Comment on above: Performed By: #### L 500.2500, L100.0100, L503.6150, L501.6710, L101.9900, L503.6550, L503.0105 ####[facility] [address] [place], [address] IG% 0.400 Normal 0.0-0.9 [facility] Comment on above: Result Comment: IG% - Immature Granulocytes (promyelocytes, myelocytes andmetamyelocytes) > 1% indicates that a LEFT SHIFT is Present. Performed By: #### L 500.2500, L100.0100, L503.6150, L501.6710, L101.9900, L503.6550, L503.0105 ####[facility] [address] [place], [address] Lymphocytes/100 WBC (Bld) 14.9 % Low 19-41 [facility] Comment on above: Performed By: #### L 500.2500, L100.0100, L503.6150, L501.6710, L101.9900, L503.6550, L503.0105 ####[facility] [address] [place], [address] MCH (RBC) [Entitic mass] 28.6 pg Normal 27.0-32.0 [facility] Comment on above: Performed By: #### L 500.2500, L100.0100, L503.6150, L501.6710, L101.9900, L503.6550, L503.0105 ####[facility] [address] [place], [address] MCHC (RBC) [Mass/Vol] 30.5 g/dL Low 32-[address] [facility] Comment on above: Performed By: #### L 500.2500, L100.0100, L503.6150, L501.6710, L101.9900, L503.6550, L503.0105 ####[facility] [address] [place], [address] MCV (RBC) [Entitic vol] 93.7 fL Normal 80-94 [facility] Comment on above: Performed By: #### L 500.2500, L100.0100, L503.6150, L501.6710, L101.9900, L503.6550, L503.0105 ####[facility] [address] [place], [address] Monocytes/100 WBC (Bld) 7.2 % Normal 0-10 [facility] Comment on above: Performed By: #### L 500.2500, L100.0100, L503.6150, L501.6710, L101.9900, L503.6550, L503.0105 ####[facility] [address] [place], [address] Neutrophils/100 WBC (Bld) 70.1 % High 47-70 [facility] Comment on above: Performed By: #### L 500.2500, L100.0100, L503.6150, L501.6710, L101.9900, L503.6550, L503.0105 ####[facility] [address] [place], [address] Nucleated RBC (Bld) [#/Vol] 0 10*3/uL Normal 0-5 [facility] Comment on above: Performed By: #### L 500.2500, L100.0100, L503.6150, L501.6710, L101.9900, L503.6550, L503.0105 ####[facility] [address] [place], [address] Platelet mean volume (Bld) [Entitic vol] 9.2 fL Normal 6.2-12.0 [facility] Comment on above: Performed By: #### L 500.2500, L100.0100, L503.6150, L501.6710, L101.9900, L503.6550, L503.0105 ####[facility] [address] [place], [address] Platelets (Bld) [#/Vol] 268 10*3/uL Normal 150-450 [facility] Comment on above: Performed By: #### L 500.2500, L100.0100, L503.6150, L501.6710, L101.9900, L503.6550, L503.0105 ####[facility] [address] [place], [address] RBC (Bld) [#/Vol] 3.64 10*6/uL Low 4.6-6.2 [facility] Comment on above: Performed By: #### L 500.2500, L100.0100, L503.6150, L501.6710, L101.9900, L503.6550, L503.0105 ####[facility] [address] [place], [address] RDW SD 49.1 fl High 35.1-43.9 [facility] Comment on above: Performed By: #### L 500.2500, L100.0100, L503.6150, L501.6710, L101.9900, L503.6550, L503.0105 ####[facility] [address] [place], [address] WBC (Bld) [#/Vol] 6.8 10*3/uL Normal 4.4-11.0 [facility] Comment on above: Performed By: #### L 500.2500, L100.0100, L503.6150, L501.6710, L101.9900, L503.6550, L503.0105 ####[facility] [address] [place], [place], [id number]) CRPon 07-23-2023 C-REACTIVE PROT 17.20 mg/L High 0.0-3.0 [facility] Comment on above: Order Comment: 109-1 Result Comment: C-Re active Protein (CRP) provides useful information for thediagnosis, therapy and monitoring of inflammatory processesand associated diseases. For the evaluation of Relative Riskfor Cardiovascular Disease, a High Sensitivity CRP (HSCRP)should be ordered. Performed By: #### L 500.2500, L100.0100, L503.6150, L501.6710, L101.9900, L503.6550, L503.0105 ####[facility] [address] [place], [place], [address] Erythrocyte Sed Rateon 07-22 SED RATE 35 mm/hr High 0-20 [facility] Comment on above: Performed By: #### L 500.2500, L100.0100, L503.6150, L501.6710, L101.9900, L503.6550, L503.0105 ####[facility] [address] [place], [place], [address] Ferritinon 07-23-2023 Ferritin [Mass/Vol] 171 ng/mL Normal 26-388 [facility] Comment on above: Order Comment: 109-1 Performed By: #### L 500.2500, L100.0100, L503.6150, L501.6710, L101.9900, L503.6550, L503.0105 ####[facility] [address] [place], [place], [address] Ironon 07-23-2023 Iron [Mass/Vol] 50 ug/dL Low 65-175 [facility] Comment on above: Order Comment: 109-1 Performed By: #### L 500.2500, L100.0100, L503.6150, L501.6710, L101.9900, L503.6550, L503.0105 ####[facility] [address] [place], [address] Vitamin B12on 07-23-2023 Cobalamin (Vitamin B12) [Mass/Vol] 553 pg/mL Normal 211-911 [facility] Comment on above: Performed By: #### L 500.2500, L100.0100, L503.6150, L501.6710, L101.9900, L503.6550, L503.0105 ####[facility] [address] [place], [address] Basic Metabolic Profile (BMP )on 07-21-2023 BUN Normal 7-18 [facility] Comment on above: Result Comment: Canc elled via OM: Order cancelled - Patient discharged Performed By: #### L 500.2500, L100.0100 ####[facility] [address] [place], [address] BUN/CRE Normal 10-20 [facility] Comment on above: Result Comment: Canc elled via OM: Order cancelled - Patient discharged Performed By: #### L 500.2500, L100.0100 ####[facility] [address] [place], [address] CA,Total Normal 8.5-10.1 [facility] Comment on above: Result Comment: Canc elled via OM: Order cancelled - Patient discharged Performed By: #### L 500.2500, L100.0100 ####[facility] [address] [place], [address] CL Normal 98-107 [facility] Comment on above: Result Comment: Canc elled via OM: Order cancelled - Patient discharged Performed By: #### L 500.2500, L100.0100 ####[facility] [address] [place], [address] CO2 Normal 21.0-32.0 [facility] Comment on above: Result Comment: Canc elled via OM: Order cancelled - Patient discharged Performed By: #### L 500.2500, L100.0100 ####[facility] [address] [place], [address] CREAT,SERUM Normal 0.70-1.30 [facility] Comment on above: Result Comment: Canc elled via OM: Order cancelled - Patient discharged Performed By: #### L 500.2500, L100.0100 ####[facility] [address] [place], [address] EST GFR Normal >60 [facility] Comment on above: Result Comment: Canc elled via OM: Order cancelled - Patient discharged Performed By: #### L 500.2500, L100.0100 ####[facility] [address] [place], [address] EST GFR - AA Normal >60 [facility] Comment on above: Result Comment: Canc elled via OM: Order cancelled - Patient discharged Performed By: #### L 500.2500, L100.0100 ####[facility] [address] [place], [address] GAP Normal 5-15 [facility] Comment on above: Result Comment: Canc elled via OM: Order cancelled - Patient discharged Performed By: #### L 500.2500, L100.0100 ####[facility] [address] [place], [address] GLU Normal 74-106 [facility] Comment on above: Result Comment: Canc elled via OM: Order cancelled - Patient discharged Performed By: #### L 500.2500, L100.0100 ####[facility] [address] [place], [address] Potassium Normal 3.5-5.1 [facility] Comment on above: Result Comment: Canc elled via OM: Order cancelled - Patient discharged Performed By: #### L 500.2500, L100.0100 ####[facility] [address] [place], [address] Basic Metabolic Profile (BMP) Normal 136-145 [facility] Comment on above: Result Comment: Canc elled via OM: Order cancelled - Patient discharged Performed By: #### L 500.2500, L100.0100 ####[facility] [address] [place], [address] CBC W/Diff, Automatedon 03-0 -2023 Absolute Neut Normal 2.0-7.7 [facility] Comment on above: Result Comment: Canc elled via OM: Order cancelled - Patient discharged Performed By: #### L 500.2500, L100.0100 ####[facility] [address] [place], [address] HCT Normal 40-54 [facility] Comment on above: Result Comment: Canc elled via OM: Order cancelled - Patient discharged Performed By: #### L 500.2500, L100.0100 ####[facility] [address] [place], [address] HGB Normal 13.0-16.5 [facility] Comment on above: Result Comment: Canc elled via OM: Order cancelled - Patient discharged Performed By: #### L 500.2500, L100.0100 ####[facility] [address] [place], [address] MCH Normal 27.0-32.0 [facility] Comment on above: Result Comment: Canc elled via OM: Order cancelled - Patient discharged Performed By: #### L 500.2500, L100.0100 ####[facility] [address] [place], [address] MCHC Normal 32-36 [facility] Comment on above: Result Comment: Canc elled via OM: Order cancelled - Patient discharged Performed By: #### L 500.2500, L100.0100 ####[facility] [address] [place], [address] MCV Normal 80-94 [facility] Comment on above: Result Comment: Canc elled via OM: Order cancelled - Patient discharged Performed By: #### L 500.2500, L100.0100 ####[facility] [address] [place], [address] NEUT% Normal 47-70 [facility] Comment on above: Result Comment: Canc elled via OM: Order cancelled - Patient discharged Performed By: #### L 500.2500, L100.0100 ####[facility] [address] [place], [address] PLT Normal 150-450 [facility] Comment on above: Result Comment: Canc elled via OM: Order cancelled - Patient discharged Performed By: #### L 500.2500, L100.0100 ####[facility] [address] [place], [address] RBC Normal 4.6-6.2 [facility] Comment on above: Result Comment: Canc elled via OM: Order cancelled - Patient discharged Performed By: #### L 500.2500, L100.0100 ####[facility] [address] [place], [address] RDW CV Normal 11.6-14.6 [facility] Comment on above: Result Comment: Canc elled via OM: Order cancelled - Patient discharged Performed By: #### L 500.2500, L100.0100 ####[facility] [address] [place], [address] RDW SD Normal 35.1-43.9 [facility] Comment on above: Result Comment: Canc elled via OM: Order cancelled - Patient discharged Performed By: #### L 500.2500, L100.0100 ####[facility] [address] [place], [address] WBC Normal 4.4-11.0 [facility] Comment on above: Result Comment: Canc elled via OM: Order cancelled - Patient discharged Performed By: #### L 500.2500, L100.0100 ####[facility] [address] [place], [address] Culture, Anaerobic Any Sourc sruthi 07-21-2023 CUAN UNK UNK COLLECTED IN OR-CALCANEUS BONE LET FOOT No anaerobic bacteria isolated. Normal [facility] Comment on above: Performed By: #### M 600.2000, M100.2000, M300.2000, M100.4001, M100.3000, M300.3000, M600.2200 ####[facility] [address] [place], [address] Basic Metabolic Profile (BMP )on 07-20-2023 BUN Normal 7-18 [facility] Comment on above: Result Comment: Canc elled via OM: Order cancelled - Patient discharged Performed By: #### L 500.2500, L100.0100 ####[facility] [address] [place], [address] BUN/CRE Normal 10-20 [facility] Comment on above: Result Comment: Canc elled via OM: Order cancelled - Patient discharged Performed By: #### L 500.2500, L100.0100 ####[facility] [address] [place], [address] CA,Total Normal 8.5-10.1 [facility] Comment on above: Result Comment: Canc elled via OM: Order cancelled - Patient discharged Performed By: #### L 500.2500, L100.0100 ####[facility] [address] [place], [address] CL Normal 98-107 [facility] Comment on above: Result Comment: Canc elled via OM: Order cancelled - Patient discharged Performed By: #### L 500.2500, L100.0100 ####[facility] [address] [place], [address] CO2 Normal 21.0-32.0 [facility] Comment on above: Result Comment: Canc elled via OM: Order cancelled - Patient discharged Performed By: #### L 500.2500, L100.0100 ####[facility] [address] [place], [address] CREAT,SERUM Normal 0.70-1.30 [facility] Comment on above: Result Comment: Canc elled via OM: Order cancelled - Patient discharged Performed By: #### L 500.2500, L100.0100 ####[facility] [address] [place], [address] EST GFR Normal >60 [facility] Comment on above: Result Comment: Canc elled via OM: Order cancelled - Patient discharged Performed By: #### L 500.2500, L100.0100 ####[facility] [address] [place], [address] EST GFR - AA Normal >60 [facility] Comment on above: Result Comment: Canc elled via OM: Order cancelled - Patient discharged Performed By: #### L 500.2500, L100.0100 ####[facility] [address] [place], [address] GAP Normal 5-15 [facility] Comment on above: Result Comment: Canc elled via OM: Order cancelled - Patient discharged Performed By: #### L 500.2500, L100.0100 ####[facility] [address] [place], [address] GLU Normal 74-106 [facility] Comment on above: Result Comment: Canc elled via OM: Order cancelled - Patient discharged Performed By: #### L 500.2500, L100.0100 ####[facility] [address] [place], [address] Potassium Normal 3.5-5.1 [facility] Comment on above: Result Comment: Canc elled via OM: Order cancelled - Patient discharged Performed By: #### L 500.2500, L100.0100 ####[facility] [address] [place], [address] Basic Metabolic Profile (BMP) Normal 136-145 [facility] Comment on above: Result Comment: Canc elled via OM: Order cancelled - Patient discharged Performed By: #### L 500.2500, L100.0100 ####[facility] [address] [place], [address] CBC W/Diff, Automatedon 03-0 -2023 Absolute Neut Normal 2.0-7.7 [facility] Comment on above: Result Comment: Canc elled via OM: Order cancelled - Patient discharged Performed By: #### L 500.2500, L100.0100 ####[facility] [address] [place], [address] HCT Normal 40-54 [facility] Comment on above: Result Comment: Canc elled via OM: Order cancelled - Patient discharged Performed By: #### L 500.2500, L100.0100 ####[facility] [address] [place], [address] HGB Normal 13.0-16.5 [facility] Comment on above: Result Comment: Canc elled via OM: Order cancelled - Patient discharged Performed By: #### L 500.2500, L100.0100 ####[facility] [address] [place], [address] MCH Normal 27.0-32.0 [facility] Comment on above: Result Comment: Canc elled via OM: Order cancelled - Patient discharged Performed By: #### L 500.2500, L100.0100 ####[facility] [address] [place], [address] MCHC Normal 32-36 [facility] Comment on above: Result Comment: Canc elled via OM: Order cancelled - Patient discharged Performed By: #### L 500.2500, L100.0100 ####[facility] [address] [place], [address] MCV Normal 80-94 [facility] Comment on above: Result Comment: Canc elled via OM: Order cancelled - Patient discharged Performed By: #### L 500.2500, L100.0100 ####[facility] [address] [place], [address] NEUT% Normal 47-70 [facility] Comment on above: Result Comment: Canc elled via OM: Order cancelled - Patient discharged Performed By: #### L 500.2500, L100.0100 ####[facility] [address] [place], [address] PLT Normal 150-450 [facility] Comment on above: Result Comment: Canc elled via OM: Order cancelled - Patient discharged Performed By: #### L 500.2500, L100.0100 ####[facility] [address] [place], [address] RBC Normal 4.6-6.2 [facility] Comment on above: Result Comment: Canc elled via OM: Order cancelled - Patient discharged Performed By: #### L 500.2500, L100.0100 ####[facility] [address] [place], [address] RDW CV Normal 11.6-14.6 [facility] Comment on above: Result Comment: Canc elled via OM: Order cancelled - Patient discharged Performed By: #### L 500.2500, L100.0100 ####[facility] [address] [place], [address] RDW SD Normal 35.1-43.9 [facility] Comment on above: Result Comment: Canc elled via OM: Order cancelled - Patient discharged Performed By: #### L 500.2500, L100.0100 ####[facility] [address] [place], [address] WBC Normal 4.4-11.0 [facility] Comment on above: Result Comment: Canc elled via OM: Order cancelled - Patient discharged Performed By: #### L 500.2500, L100.0100 ####[facility] [address] [place], [address] Basic Metabolic Profile (BMP )on 07-19-2023 BUN Normal 7-18 [facility] Comment on above: Result Comment: Canc elled via OM: Order cancelled - Patient discharged Performed By: #### L 500.2500, L100.0100 ####[facility] [address] [place], [address] BUN/CRE Normal 10-20 [facility] Comment on above: Result Comment: Canc elled via OM: Order cancelled - Patient discharged Performed By: #### L 500.2500, L100.0100 ####[facility] [address] [place], [address] CA,Total Normal 8.5-10.1 [facility] Comment on above: Result Comment: Canc elled via OM: Order cancelled - Patient discharged Performed By: #### L 500.2500, L100.0100 ####[facility] [address] [place], [address] CL Normal 98-107 [facility] Comment on above: Result Comment: Canc elled via OM: Order cancelled - Patient discharged Performed By: #### L 500.2500, L100.0100 ####[facility] [address] [place], [address] CO2 Normal 21.0-32.0 [facility] Comment on above: Result Comment: Canc elled via OM: Order cancelled - Patient discharged Performed By: #### L 500.2500, L100.0100 ####[facility] [address] [place], [address] CREAT,SERUM Normal 0.70-1.30 [facility] Comment on above: Result Comment: Canc elled via OM: Order cancelled - Patient discharged Performed By: #### L 500.2500, L100.0100 ####[facility] [address] [place], [address] EST GFR Normal >60 [facility] Comment on above: Result Comment: Canc elled via OM: Order cancelled - Patient discharged Performed By: #### L 500.2500, L100.0100 ####[facility] [address] [place], [address] EST GFR - AA Normal >60 [facility] Comment on above: Result Comment: Canc elled via OM: Order cancelled - Patient discharged Performed By: #### L 500.2500, L100.0100 ####[facility] [address] [place], [address] GAP Normal 5-15 [facility] Comment on above: Result Comment: Canc elled via OM: Order cancelled - Patient discharged Performed By: #### L 500.2500, L100.0100 ####[facility] [address] [place], [address] GLU Normal 74-106 [facility] Comment on above: Result Comment: Canc elled via OM: Order cancelled - Patient discharged Performed By: #### L 500.2500, L100.0100 ####[facility] [address] [place], [address] Potassium Normal 3.5-5.1 [facility] Comment on above: Result Comment: Canc elled via OM: Order cancelled - Patient discharged Performed By: #### L 500.2500, L100.0100 ####[facility] [address] [place], [address] Basic Metabolic Profile (BMP) Normal 136-145 [facility] Comment on above: Result Comment: Canc elled via OM: Order cancelled - Patient discharged Performed By: #### L 500.2500, L100.0100 ####[facility] [address] [place], [address] CBC W/Diff, Automatedon 03-0 -2023 Absolute Neut Normal 2.0-7.7 [facility] Comment on above: Result Comment: Canc elled via OM: Order cancelled - Patient discharged Performed By: #### L 500.2500, L100.0100 ####[facility] [address] [place], [address] HCT Normal 40-54 [facility] Comment on above: Result Comment: Canc elled via OM: Order cancelled - Patient discharged Performed By: #### L 500.2500, L100.0100 ####[facility] [address] [place], [address] HGB Normal 13.0-16.5 [facility] Comment on above: Result Comment: Canc elled via OM: Order cancelled - Patient discharged Performed By: #### L 500.2500, L100.0100 ####[facility] [address] [place], [address] MCH Normal 27.0-32.0 [facility] Comment on above: Result Comment: Canc elled via OM: Order cancelled - Patient discharged Performed By: #### L 500.2500, L100.0100 ####[facility] [address] [place], [address] MCHC Normal 32-36 [facility] Comment on above: Result Comment: Canc elled via OM: Order cancelled - Patient discharged Performed By: #### L 500.2500, L100.0100 ####[facility] [address] [place], [address] MCV Normal 80-94 [facility] Comment on above: Result Comment: Canc elled via OM: Order cancelled - Patient discharged Performed By: #### L 500.2500, L100.0100 ####[facility] [address] [place], [address] NEUT% Normal 47-70 [facility] Comment on above: Result Comment: Canc elled via OM: Order cancelled - Patient discharged Performed By: #### L 500.2500, L100.0100 ####[facility] [address] [place], [address] PLT Normal 150-450 [facility] Comment on above: Result Comment: Canc elled via OM: Order cancelled - Patient discharged Performed By: #### L 500.2500, L100.0100 ####[facility] [address] [place], [address] RBC Normal 4.6-6.2 [facility] Comment on above: Result Comment: Canc elled via OM: Order cancelled - Patient discharged Performed By: #### L 500.2500, L100.0100 ####[facility] [address] [place], [address] RDW CV Normal 11.6-14.6 [facility] Comment on above: Result Comment: Canc elled via OM: Order cancelled - Patient discharged Performed By: #### L 500.2500, L100.0100 ####[facility] [address] [place], [address] RDW SD Normal 35.1-43.9 [facility] Comment on above: Result Comment: Canc elled via OM: Order cancelled - Patient discharged Performed By: #### L 500.2500, L100.0100 ####[facility] [address] [place], [address] WBC Normal 4.4-11.0 [facility] Comment on above: Result Comment: Canc elled via OM: Order cancelled - Patient discharged Performed By: #### L 500.2500, L100.0100 ####[facility] [address] [place], [address] Basic Metabolic Profile (BMP )on 07-18-2023 BUN/CRE 13.5 RATIO Normal 10-20 [facility] Comment on above: Order Comment: 109-1 Performed By: #### L 501.5200, L101.9900, L100.0100, L501.9985, L500.2500 ####[facility] [address] [place], [address] CA,Total 8.5 mg/dL Normal 8.5-10.1 [facility] Comment on above: Order Comment: 109-1 Performed By: #### L 501.5200, L101.9900, L100.0100, L501.9985, L500.2500 ####[facility] [address] [place], [address] Chloride [Moles/Vol] 112 mmol/L High 98-107 [facility] Comment on above: Order Comment: 109-1 Performed By: #### L 501.5200, L101.9900, L100.0100, L501.9985, L500.2500 ####[facility] [address] [place], [address] CO2 [Moles/Vol] 28.0 mmol/L Normal 21.0-32.0 [facility] Comment on above: Order Comment: 109-1 Performed By: #### L 501.5200, L101.9900, L100.0100, L501.9985, L500.2500 ####[facility] [address] [place], [address] Creatinine [Mass/Vol] 0.89 mg/dL Normal 0.70-1.[address] [facility] Comment on above: Order Comment: 109-1 Result Comment: The validity of the calculated GFR GFRAA in patients over70 years has not been determined. Clinical correlation isessential. Performed By: #### L 501.5200, L101.9900, L100.0100, L501.9985, L500.2500 ####[facility] [address] [place], [address] EST GFR - AA 109 mL/min Normal >60 [facility] Comment on above: Order Comment: 109-1 Result Comment: Afri can [place] GFR Calc Performed By: #### L 501.5200, L101.9900, L100.0100, L501.9985, L500.2500 ####[facility] [address] [place], [address] GAP 5 Normal 5-15 [facility] Comment on above: Order Comment: 109-1 Performed By: #### L 501.5200, L101.9900, L100.0100, L501.9985, L500.2500 ####[facility] [address] [place], [address] GFR/1.73 sq M.predicted among non-blacks MDRD (S/P/Bld) [Vol rate/Area] 90 mL/min/{1.73_m2} Normal >60 [facility] Comment on above: Order Comment: 109-1 Result Comment: Non- GFR Calc Performed By: #### L 501.5200, L101.9900, L100.0100, L501.9985, L500.2500 ####[facility] [address] [place], [address] Glucose [Mass/Vol] 83 mg/dL Normal 74-106 [facility] Comment on above: Order Comment: 109-1 Performed By: #### L 501.5200, L101.9900, L100.0100, L501.9985, L500.2500 ####[facility] [address] [place], [address] Potassium [Moles/Vol] 3.3 mmol/L Low 3.5-5.[address] [facility] Comment on above: Order Comment: 109-1 Performed By: #### L 501.5200, L101.9900, L100.0100, L501.9985, L500.2500 ####[facility] [address] [place], [address] Sodium [Moles/Vol] 145 mmol/L Normal 136-145 [facility] Comment on above: Order Comment: 109-1 Performed By: #### L 501.5200, L101.9900, L100.0100, L501.9985, L500.2500 ####[facility] [address] [place], [address] Urea nitrogen [Mass/Vol] 12 mg/dL Normal 7-18 [facility] Comment on above: Order Comment: 109-1 Performed By: #### L 501.5200, L101.9900, L100.0100, L501.9985, L500.2500 ####[facility] [address] [place], [address] BUN Normal 7-18 [facility] Comment on above: Result Comment: Canc elled via OM: Order cancelled - Patient discharged Performed By: #### L 100.0100, L500.2500 ####[facility] [address] [place], [address] BUN/CRE Normal 10-20 [facility] Comment on above: Result Comment: Canc elled via OM: Order cancelled - Patient discharged Performed By: #### L 100.0100, L500.2500 ####[facility] [address] [place], [address] CA,Total Normal 8.5-10.1 [facility] Comment on above: Result Comment: Canc elled via OM: Order cancelled - Patient discharged Performed By: #### L 100.0100, L500.2500 ####[facility] [address] [place], [address] CL Normal 98-107 [facility] Comment on above: Result Comment: Canc elled via OM: Order cancelled - Patient discharged Performed By: #### L 100.0100, L500.2500 ####[facility] [address] [place], [address] CO2 Normal 21.0-32.0 [facility] Comment on above: Result Comment: Canc elled via OM: Order cancelled - Patient discharged Performed By: #### L 100.0100, L500.2500 ####[facility] [address] [place], [address] CREAT,SERUM Normal 0.70-1.30 [facility] Comment on above: Result Comment: Canc elled via OM: Order cancelled - Patient discharged Performed By: #### L 100.0100, L500.2500 ####[facility] [address] [place], [address] EST GFR Normal >60 [facility] Comment on above: Result Comment: Canc elled via OM: Order cancelled - Patient discharged Performed By: #### L 100.0100, L500.2500 ####[facility] [address] [place], [address] EST GFR - AA Normal >60 [facility] Comment on above: Result Comment: Canc elled via OM: Order cancelled - Patient discharged Performed By: #### L 100.0100, L500.2500 ####[facility] [address] [place], [address] GAP Normal 5-15 [facility] Comment on above: Result Comment: Canc elled via OM: Order cancelled - Patient discharged Performed By: #### L 100.0100, L500.2500 ####[facility] [address] [place], [address] GLU Normal 74-106 [facility] Comment on above: Result Comment: Canc elled via OM: Order cancelled - Patient discharged Performed By: #### L 100.0100, L500.2500 ####[facility] [address] [place], [address] Potassium Normal 3.5-5.1 [facility] Comment on above: Result Comment: Canc elled via OM: Order cancelled - Patient discharged Performed By: #### L 100.0100, L500.2500 ####[facility] [address] [place], [address] Basic Metabolic Profile (BMP) Normal 136-145 [facility] Comment on above: Result Comment: Canc elled via OM: Order cancelled - Patient discharged Performed By: #### L 100.0100, L500.2500 ####[facility] [address] [place], [address] CBC W/Diff, Automatedon 03-0 6-2023 Absolute Lymph 0.86 X10 3/uL Normal 0.83-4.51 [facility] Comment on above: Performed By: #### L 501.5200, L101.9900, L100.0100, L501.9985, L500.2500 ####[facility] [address] [place], [address] Absolute Neut 5.7 X10 3/uL Normal 2.0-7.7 [facility] Comment on above: Performed By: #### L 501.5200, L101.9900, L100.0100, L501.9985, L500.2500 ####[facility] [address] [place], [address] Basophils/100 WBC (Bld) 0.9 % Normal 0-1 [facility] Comment on above: Performed By: #### L 501.5200, L101.9900, L100.0100, L501.9985, L500.2500 ####[facility] [address] [place], [address] Eosinophils/100 WBC (Bld) 5.5 % High 0-5 [facility] Comment on above: Performed By: #### L 501.5200, L101.9900, L100.0100, L501.9985, L500.2500 ####[facility] [address] [place], [address] Erythrocyte distribution width (RBC) [Ratio] 13.6 % Normal 11.6-14.6 [facility] Comment on above: Performed By: #### L 501.5200, L101.9900, L100.0100, L501.9985, L500.2500 ####[facility] [address] [place], [address] Hematocrit (Bld) [Volume fraction] 31.1 % Low 40-54 [facility] Comment on above: Performed By: #### L 501.5200, L101.9900, L100.0100, L501.9985, L500.2500 ####[facility] [address] [place], [address] Hemoglobin (Bld) [Mass/Vol] 9.8 g/dL Low 13.0-16.5 [facility] Comment on above: Performed By: #### L 501.5200, L101.9900, L100.0100, L501.9985, L500.2500 ####[facility] [address] [place], [address] IG% 0.700 Normal 0.0-0.9 [facility] Comment on above: Result Comment: IG% - Immature Granulocytes (promyelocytes, myelocytes andmetamyelocytes) > 1% indicates that a LEFT SHIFT is Present. Performed By: #### L 501.5200, L101.9900, L100.0100, L501.9985, L500.2500 ####[facility] [address] [place], [address] Lymphocytes/100 WBC (Bld) 11.2 % Low 19-41 [facility] Comment on above: Performed By: #### L 501.5200, L101.9900, L100.0100, L501.9985, L500.2500 ####[facility] [address] [place], [address] MCH (RBC) [Entitic mass] 28.4 pg Normal 27.0-32.0 [facility] Comment on above: Performed By: #### L 501.5200, L101.9900, L100.0100, L501.9985, L500.2500 ####[facility] [address] [place], [address] MCHC (RBC) [Mass/Vol] 31.5 g/dL Low 32-[address] [facility] Comment on above: Performed By: #### L 501.5200, L101.9900, L100.0100, L501.9985, L500.2500 ####[facility] [address] [place], [address] MCV (RBC) [Entitic vol] 90.1 fL Normal 80-94 [facility] Comment on above: Performed By: #### L 501.5200, L101.9900, L100.0100, L501.9985, L500.2500 ####[facility] [address] [place], [address] Monocytes/100 WBC (Bld) 7.1 % Normal 0-10 [facility] Comment on above: Performed By: #### L 501.5200, L101.9900, L100.0100, L501.9985, L500.2500 ####[facility] [address] [place], [address] Neutrophils/100 WBC (Bld) 74.6 % High 47-70 [facility] Comment on above: Performed By: #### L 501.5200, L101.9900, L100.0100, L501.9985, L500.2500 ####[facility] [address] [place], [address] Nucleated RBC (Bld) [#/Vol] 0 10*3/uL Normal 0-5 [facility] Comment on above: Performed By: #### L 501.5200, L101.9900, L100.0100, L501.9985, L500.2500 ####[facility] [address] [place], [address] Platelet mean volume (Bld) [Entitic vol] 9.1 fL Normal 6.2-12.0 [facility] Comment on above: Performed By: #### L 501.5200, L101.9900, L100.0100, L501.9985, L500.2500 ####[facility] [address] [place], [address] Platelets (Bld) [#/Vol] 260 10*3/uL Normal 150-450 [facility] Comment on above: Performed By: #### L 501.5200, L101.9900, L100.0100, L501.9985, L500.2500 ####[facility] [address] [place], [address] RBC (Bld) [#/Vol] 3.45 10*6/uL Low 4.6-6.2 [facility] Comment on above: Performed By: #### L 501.5200, L101.9900, L100.0100, L501.9985, L500.2500 ####[facility] [address] [place], [address] RDW SD 43.8 fl Normal 35.1-43.9 [facility] Comment on above: Performed By: #### L 501.5200, L101.9900, L100.0100, L501.9985, L500.2500 ####[facility] [address] [place], [address] WBC (Bld) [#/Vol] 7.7 10*3/uL Normal 4.4-11.0 [facility] Comment on above: Performed By: #### L 501.5200, L101.9900, L100.0100, L501.9985, L500.2500 ####[facility] [address] [place], [address] Absolute Neut Normal 2.0-7.7 [facility] Comment on above: Result Comment: Canc elled via OM: Order cancelled - Patient discharged Performed By: #### L 100.0100, L500.2500 ####[facility] [address] [place], [address] HCT Normal 40-54 [facility] Comment on above: Result Comment: Canc elled via OM: Order cancelled - Patient discharged Performed By: #### L 100.0100, L500.2500 ####[facility] [address] [place], [address] HGB Normal 13.0-16.5 [facility] Comment on above: Result Comment: Canc elled via OM: Order cancelled - Patient discharged Performed By: #### L 100.0100, L500.2500 ####[facility] [address] [place], [address] MCH Normal 27.0-32.0 [facility] Comment on above: Result Comment: Canc elled via OM: Order cancelled - Patient discharged Performed By: #### L 100.0100, L500.2500 ####[facility] [address] [place], [address] MCHC Normal 32-36 [facility] Comment on above: Result Comment: Canc elled via OM: Order cancelled - Patient discharged Performed By: #### L 100.0100, L500.2500 ####[facility] [address] [place], [address] MCV Normal 80-94 [facility] Comment on above: Result Comment: Canc elled via OM: Order cancelled - Patient discharged Performed By: #### L 100.0100, L500.2500 ####[facility] [address] [place], [address] NEUT% Normal 47-70 [facility] Comment on above: Result Comment: Canc elled via OM: Order cancelled - Patient discharged Performed By: #### L 100.0100, L500.2500 ####[facility] [address] [place], [address] PLT Normal 150-450 [facility] Comment on above: Result Comment: Canc elled via OM: Order cancelled - Patient discharged Performed By: #### L 100.0100, L500.2500 ####[facility] [address] [place], [address] RBC Normal 4.6-6.2 [facility] Comment on above: Result Comment: Canc elled via OM: Order cancelled - Patient discharged Performed By: #### L 100.0100, L500.2500 ####[facility] [address] [place], [address] RDW CV Normal 11.6-14.6 [facility] Comment on above: Result Comment: Canc elled via OM: Order cancelled - Patient discharged Performed By: #### L 100.0100, L500.2500 ####[facility] [address] [place], [address] RDW SD Normal 35.1-43.9 [facility] Comment on above: Result Comment: Canc elled via OM: Order cancelled - Patient discharged Performed By: #### L 100.0100, L500.2500 ####[facility] [address] [place], [address] WBC Normal 4.4-11.0 [facility] Comment on above: Result Comment: Canc elled via OM: Order cancelled - Patient discharged Performed By: #### L 100.0100, L500.2500 ####[facility] [address] [place], [address] Erythrocyte Sed Rateon 07-17 SED RATE 31 mm/hr High 0-20 [facility] Comment on above: Performed By: #### L 501.5200, L101.9900, L100.0100, L501.9985, L500.2500 ####[facility] [address] [place], [address] Hemoglobin A1con 07-18-2023 HbA1c (Bld) [Mass fraction] 5.3 % Normal 3.8-5.6 [facility] Comment on above: Result Comment: Norm al < 5.7 % Prediabetic 5.7 - 6.4 % Diabetic >or= 6.5 % Please note range changes. Performed By: #### L 501.5200, L101.9900, L100.0100, L501.9985, L500.2500 ####[facility] [address] [place], [address] Magnesiumon 07-18-2023 Magnesium [Mass/Vol] 2.3 mg/dL Normal 1.6-2.6 [facility] Comment on above: Order Comment: 109-1 Performed By: #### L 501.5200, L101.9900, L100.0100, L501.9985, L500.2500 ####[facility] [address] [place], [address] Basic Metabolic Profile (BMP )on 07-17-2023 BUN/CRE 16.3 RATIO Normal 10-20 [facility] Comment on above: Performed By: #### L 500.2500, L100.0100 ####[facility] [address] [place], [address] CA,Total 8.6 mg/dL Normal 8.5-10.1 [facility] Comment on above: Performed By: #### L 500.2500, L100.0100 ####[facility] [address] [place], [address] Chloride [Moles/Vol] 114 mmol/L High 98-107 [facility] Comment on above: Performed By: #### L 500.2500, L100.0100 ####[facility] [address] [place], [address] CO2 [Moles/Vol] 27.0 mmol/L Normal 21.0-32.0 [facility] Comment on above: Performed By: #### L 500.2500, L100.0100 ####[facility] [address] [place], [address] Creatinine [Mass/Vol] 0.92 mg/dL Normal 0.70-1.[address] [facility] Comment on above: Result Comment: The validity of the calculated GFR GFRAA in patients over70 years has not been determined. Clinical correlation isessential. Performed By: #### L 500.2500, L100.0100 ####[facility] [address] [place], [address] ECRCL 116.14 ml/min Normal [facility] Comment on above: Performed By: #### L 500.2500, L100.0100 ####[facility] [address] [place], [address] EST GFR - AA 105 mL/min Normal >60 [facility] Comment on above: Result Comment: Afri can [place] GFR Calc Performed By: #### L 500.2500, L100.0100 ####[facility] [address] [place], [address] GAP 2 Low 5-15 [facility] Comment on above: Performed By: #### L 500.2500, L100.0100 ####[facility] [address] [place], [address] GFR/1.73 sq M.predicted among non-blacks MDRD (S/P/Bld) [Vol rate/Area] 86 mL/min/{1.73_m2} Normal >60 [facility] Comment on above: Result Comment: Non- GFR Calc Performed By: #### L 500.2500, L100.0100 ####[facility] [address] [place], [address] Glucose [Mass/Vol] 98 mg/dL Normal 74-106 [facility] Comment on above: Performed By: #### L 500.2500, L100.0100 ####[facility] [address] [place], [address] Potassium [Moles/Vol] 3.3 mmol/L Low 3.5-5.[address] [facility] Comment on above: Performed By: #### L 500.2500, L100.0100 ####[facility] [address] [place], [address] Sodium [Moles/Vol] 143 mmol/L Normal 136-145 [facility] Comment on above: Performed By: #### L 500.2500, L100.0100 ####[facility] [address] [place], [address] Urea nitrogen [Mass/Vol] 15 mg/dL Normal 7-18 [facility] Comment on above: Performed By: #### L 500.2500, L100.0100 ####[facility] [address] [place], [address] CBC W/Diff, Automatedon 03-0 5-2023 Absolute Lymph 0.94 X10 3/uL Normal 0.83-4.51 [facility] Comment on above: Performed By: #### L 500.2500, L100.0100 ####[facility] [address] [place], [address] Absolute Neut 5.9 X10 3/uL Normal 2.0-7.7 [facility] Comment on above: Performed By: #### L 500.2500, L100.0100 ####[facility] [address] [place], [address] Basophils/100 WBC (Bld) 0.9 % Normal 0-1 [facility] Comment on above: Performed By: #### L 500.2500, L100.0100 ####[facility] [address] [place], [address] Eosinophils/100 WBC (Bld) 4.6 % Normal 0-5 [facility] Comment on above: Performed By: #### L 500.2500, L100.0100 ####[facility] [address] [place], [address] Erythrocyte distribution width (RBC) [Ratio] 13.2 % Normal 11.6-14.6 [facility] Comment on above: Performed By: #### L 500.2500, L100.0100 ####[facility] [address] [place], [address] Hematocrit (Bld) [Volume fraction] 33.3 % Low 40-54 [facility] Comment on above: Performed By: #### L 500.2500, L100.0100 ####[facility] [address] [place], [address] Hemoglobin (Bld) [Mass/Vol] 10.4 g/dL Low 13.0-16.5 [facility] Comment on above: Performed By: #### L 500.2500, L100.0100 ####[facility] [address] [place], [address] IG% 0.600 Normal 0.0-0.9 [facility] Comment on above: Result Comment: IG% - Immature Granulocytes (promyelocytes, myelocytes andmetamyelocytes) > 1% indicates that a LEFT SHIFT is Present. Performed By: #### L 500.2500, L100.0100 ####[facility] [address] [place], [address] Lymphocytes/100 WBC (Bld) 12.1 % Low 19-41 [facility] Comment on above: Performed By: #### L 500.2500, L100.0100 ####[facility] [address] [place], [address] MCH (RBC) [Entitic mass] 28.3 pg Normal 27.0-32.0 [facility] Comment on above: Performed By: #### L 500.2500, L100.0100 ####[facility] [address] [place], [address] MCHC (RBC) [Mass/Vol] 31.2 g/dL Low 32-[address] [facility] Comment on above: Performed By: #### L 500.2500, L100.0100 ####[facility] [address] [place], [address] MCV (RBC) [Entitic vol] 90.5 fL Normal 80-94 [facility] Comment on above: Performed By: #### L 500.2500, L100.0100 ####[facility] [address] [place], [address] Monocytes/100 WBC (Bld) 5.9 % Normal 0-10 [facility] Comment on above: Performed By: #### L 500.2500, L100.0100 ####[facility] [address] [place], [address] Neutrophils/100 WBC (Bld) 75.9 % High 47-70 [facility] Comment on above: Performed By: #### L 500.2500, L100.0100 ####[facility] [address] [place], [address] Nucleated RBC (Bld) [#/Vol] 0 10*3/uL Normal 0-5 [facility] Comment on above: Performed By: #### L 500.2500, L100.0100 ####[facility] [address] [place], [address] Platelet mean volume (Bld) [Entitic vol] 8.9 fL Normal 6.2-12.0 [facility] Comment on above: Performed By: #### L 500.2500, L100.0100 ####[facility] [address] [place], [address] Platelets (Bld) [#/Vol] 252 10*3/uL Normal 150-450 [facility] Comment on above: Performed By: #### L 500.2500, L100.0100 ####[facility] [address] [place], [address] RBC (Bld) [#/Vol] 3.68 10*6/uL Low 4.6-6.2 [facility] Comment on above: Performed By: #### L 500.2500, L100.0100 ####[facility] [address] [place], [address] RDW SD 43.9 fl Normal 35.1-43.9 [facility] Comment on above: Performed By: #### L 500.2500, L100.0100 ####[facility] [address] [place], [address] WBC (Bld) [#/Vol] 7.8 10*3/uL Normal 4.4-11.0 [facility] Comment on above: Performed By: #### L 500.2500, L100.0100 ####[facility] [address] [place], [address] Culture, Blood (WB)on 2023 CUB No growth in 5 days. Normal [facility] Comment on above: Performed By: #### M 200.1000 ####[facility] [address] [place], [address] CUB No growth in 5 days. Normal [facility] Comment on above: Performed By: #### M 200.1000 ####[facility] [address] [place], [address] Procedure Reporton Procedure Report Normal [facility] Wound Cultureon 07-17-2023 [facility] Comment on above: Performed By: #### M 600.2000, M100.2000, M300.2000, M100.4001, M100.3000, M300.3000, M600.2200 ####[facility] [address] [place], [address] [facility] Comment on above: Performed By: #### M 100.2000, L8200.1075, M100.3000 ####[facility] [address] [place], [address] Basic Metabolic Profile (BMP )on 07-16-2023 BUN/CRE 17.3 RATIO Normal 10-20 [facility] Comment on above: Performed By: #### L 500.2500, L100.0100 ####[facility] [address] [place], [address] CA,Total 8.2 mg/dL Low 8.5-10.1 [facility] Comment on above: Performed By: #### L 500.2500, L100.0100 ####[facility] [address] [place], [address] Chloride [Moles/Vol] 114 mmol/L High 98-107 [facility] Comment on above: Performed By: #### L 500.2500, L100.0100 ####[facility] [address] [place], [address] CO2 [Moles/Vol] 26.0 mmol/L Normal 21.0-32.0 [facility] Comment on above: Performed By: #### L 500.2500, L100.0100 ####[facility] [address] [place], [address] Creatinine [Mass/Vol] 0.98 mg/dL Normal 0.70-1.[address] [facility] Comment on above: Result Comment: The validity of the calculated GFR GFRAA in patients over70 years has not been determined. Clinical correlation isessential. Performed By: #### L 500.2500, L100.0100 ####[facility] [address] [place], [address] ECRCL 109.03 ml/min Normal [facility] Comment on above: Performed By: #### L 500.2500, L100.0100 ####[facility] [address] [place], [address] EST GFR - AA 97 mL/min Normal >60 [facility] Comment on above: Result Comment: Afri can [place] GFR Calc Performed By: #### L 500.2500, L100.0100 ####[facility] [address] [place], [address] GAP 3 Low 5-15 [facility] Comment on above: Performed By: #### L 500.2500, L100.0100 ####[facility] [address] [place], [address] GFR/1.73 sq M.predicted among non-blacks MDRD (S/P/Bld) [Vol rate/Area] 80 mL/min/{1.73_m2} Normal >60 [facility] Comment on above: Result Comment: Non- GFR Calc Performed By: #### L 500.2500, L100.0100 ####[facility] [address] [place], [address] Glucose [Mass/Vol] 103 mg/dL Normal 74-106 [facility] Comment on above: Result Comment: Fast ing Glucose result from 100 to 125 mg/dLsuggests IMPAIRED HOMEOSTASIS per A.D.A. criteria. Performed By: #### L 500.2500, L100.0100 ####[facility] [address] [place], [address] Potassium [Moles/Vol] 3.6 mmol/L Normal 3.5-5.[address] [facility] Comment on above: Performed By: #### L 500.2500, L100.0100 ####[facility] [address] [place], [address] Sodium [Moles/Vol] 143 mmol/L Normal 136-145 [facility] Comment on above: Performed By: #### L 500.2500, L100.0100 ####[facility] [address] [place], [address] Urea nitrogen [Mass/Vol] 17 mg/dL Normal 7-18 [facility] Comment on above: Performed By: #### L 500.2500, L100.0100 ####[facility] [address] [place], [address] CBC W/Diff, Automatedon 03-0 4-2023 Absolute Lymph 1.11 X10 3/uL Normal 0.83-4.51 [facility] Comment on above: Performed By: #### L 500.2500, L100.0100 ####[facility] [address] [place], [address] Absolute Neut 5.7 X10 3/uL Normal 2.0-7.7 [facility] Comment on above: Performed By: #### L 500.2500, L100.0100 ####[facility] [address] [place], [address] Basophils/100 WBC (Bld) 1.0 % Normal 0-1 [facility] Comment on above: Performed By: #### L 500.2500, L100.0100 ####[facility] [address] [place], [address] Eosinophils/100 WBC (Bld) 4.4 % Normal 0-5 [facility] Comment on above: Performed By: #### L 500.2500, L100.0100 ####[facility] [address] [place], [address] Erythrocyte distribution width (RBC) [Ratio] 13.3 % Normal 11.6-14.6 [facility] Comment on above: Performed By: #### L 500.2500, L100.0100 ####[facility] [address] [place], [address] Hematocrit (Bld) [Volume fraction] 31.7 % Low 40-54 [facility] Comment on above: Performed By: #### L 500.2500, L100.0100 ####[facility] [address] [place], [address] Hemoglobin (Bld) [Mass/Vol] 9.9 g/dL Low 13.0-16.5 [facility] Comment on above: Performed By: #### L 500.2500, L100.0100 ####[facility] [address] [place], [address] IG% 0.600 Normal 0.0-0.9 [facility] Comment on above: Result Comment: IG% - Immature Granulocytes (promyelocytes, myelocytes andmetamyelocytes) > 1% indicates that a LEFT SHIFT is Present. Performed By: #### L 500.2500, L100.0100 ####[facility] [address] [place], [address] Lymphocytes/100 WBC (Bld) 14.1 % Low 19-41 [facility] Comment on above: Performed By: #### L 500.2500, L100.0100 ####[facility] [address] [place], [address] MCH (RBC) [Entitic mass] 28.3 pg Normal 27.0-32.0 [facility] Comment on above: Performed By: #### L 500.2500, L100.0100 ####[facility] [address] [place], [address] MCHC (RBC) [Mass/Vol] 31.2 g/dL Low 32-[address] [facility] Comment on above: Performed By: #### L 500.2500, L100.0100 ####[facility] [address] [place], [address] MCV (RBC) [Entitic vol] 90.6 fL Normal 80-94 [facility] Comment on above: Performed By: #### L 500.2500, L100.0100 ####[facility] [address] [place], [address] Monocytes/100 WBC (Bld) 8.0 % Normal 0-10 [facility] Comment on above: Performed By: #### L 500.2500, L100.0100 ####[facility] [address] [place], [address] Neutrophils/100 WBC (Bld) 71.9 % High 47-70 [facility] Comment on above: Performed By: #### L 500.2500, L100.0100 ####[facility] [address] [place], [address] Nucleated RBC (Bld) [#/Vol] 0 10*3/uL Normal 0-5 [facility] Comment on above: Performed By: #### L 500.2500, L100.0100 ####[facility] [address] [place], [address] Platelet mean volume (Bld) [Entitic vol] 9.0 fL Normal 6.2-12.0 [facility] Comment on above: Performed By: #### L 500.2500, L100.0100 ####[facility] [address] [place], [address] Platelets (Bld) [#/Vol] 255 10*3/uL Normal 150-450 [facility] Comment on above: Performed By: #### L 500.2500, L100.0100 ####[facility] [address] [place], [address] RBC (Bld) [#/Vol] 3.50 10*6/uL Low 4.6-6.2 [facility] Comment on above: Performed By: #### L 500.2500, L100.0100 ####[facility] [address] [place], [address] RDW SD 43.6 fl Normal 35.1-43.9 [facility] Comment on above: Performed By: #### L 500.2500, L100.0100 ####[facility] [address] [place], [address] WBC (Bld) [#/Vol] 7.9 10*3/uL Normal 4.4-11.0 [facility] Comment on above: Performed By: #### L 500.2500, L100.0100 ####[facility] [address] [place], [address] Gram Stainon 07-16-2023 GS UNK UNK COLLECTED IN OR-CALCANEUS BONE LET FOOT Gram Stain No organisms seen No cells seen Normal [facility] Comment on above: Performed By: #### M 600.2000, M100.2000, M300.2000, M100.4001, M100.3000, M300.3000, M600.2200 ####[facility] [address], [address] Vancomycin, Trough Levelon 0 07-16-2023 VANCO, TROUGH 15.7 ug/mL High 5.0-15.0 [facility] Comment on above: Order Comment: Comme nts: DRAW 30 MIN PRIOR TO [id number] Result Comment: VANC OMYCIN STANDARED DRUG THERAPY TROUGH LEVEL: 5.0 - 15.0 mg/LVANCOMYCIN HIGH INTENSITY THERAPY TROUGH LEVEL: 15.0 - 20.0 mg/LHigh Intensity therapy recommended for serious lifethreatening infections include:- Knwlwjrrrr-Fmbkmnhghpvp-Hvlogynuu (Ventilator/Healtcare Associated)-SepsisPLEASE CONTACT PHARMACY SERVICES (#[id number]) FOR INTERPRETATIONOF RESULTS. Performed By: #### L 501.8820 ####[facility] [address], [address] Basic Metabolic Profile (BMP )on 07-15-2023 BUN/CRE 15.0 RATIO Normal 10-20 [facility] Comment on above: Performed By: #### L 100.0100, L500.2500 ####[facility] [address], [address] CA,Total 8.7 mg/dL Normal 8.5-10.1 [facility] Comment on above: Performed By: #### L 100.0100, L500.2500 ####[facility] [address] [place], [address] Chloride [Moles/Vol] 116 mmol/L High 98-107 [facility] Comment on above: Performed By: #### L 100.0100, L500.2500 ####[facility] [address] [place], [address] CO2 [Moles/Vol] 25.0 mmol/L Normal 21.0-32.0 [facility] Comment on above: Performed By: #### L 100.0100, L500.2500 ####[facility] [address] [place], [address] Creatinine [Mass/Vol] 0.93 mg/dL Normal 0.70-1.[address] [facility] Comment on above: Result Comment: The validity of the calculated GFR GFRAA in patients over70 years has not been determined. Clinical correlation isessential. Performed By: #### L 100.0100, L500.2500 ####[facility] [address] [place], [address] ECRCL 114.89 ml/min Normal [facility] Comment on above: Performed By: #### L 100.0100, L500.2500 ####[facility] [address] [place], [address] EST GFR - AA 103 mL/min Normal >60 [facility] Comment on above: Result Comment: Afri can [place] GFR Calc Performed By: #### L 100.0100, L500.2500 ####[facility] [address] [place], [address] GAP 2 Low 5-15 [facility] Comment on above: Performed By: #### L 100.0100, L500.2500 ####[facility] [address] [place], [place] [address] GFR/1.73 sq M.predicted among non-blacks MDRD (S/P/Bld) [Vol rate/Area] 85 mL/min/{1.73_m2} Normal >60 [facility] Comment on above: Result Comment: Non- GFR Calc Performed By: #### L 100.0100, L500.2500 ####[facility] [address] [place], [address] Glucose [Mass/Vol] 106 mg/dL Normal 74-106 [facility] Comment on above: Result Comment: Fast ing Glucose result from 100 to 125 mg/dLsuggests IMPAIRED HOMEOSTASIS per A.D.A. criteria. Performed By: #### L 100.0100, L500.2500 ####[facility] [address] [place], [address] Potassium [Moles/Vol] 3.5 mmol/L Normal 3.5-5.[address] [facility] Comment on above: Performed By: #### L 100.0100, L500.2500 ####[facility] [address] [place], [address] Sodium [Moles/Vol] 143 mmol/L Normal 136-145 [facility] Comment on above: Performed By: #### L 100.0100, L500.2500 ####[facility] [address] [place], [address] Urea nitrogen [Mass/Vol] 14 mg/dL Normal 7-18 [facility] Comment on above: Performed By: #### L 100.0100, L500.2500 ####[facility] [address] [place], [address] CBC W/Diff, Automatedon 03-0 3-2024 Absolute Lymph 0.97 X10 3/uL Normal 0.83-4.51 [facility] Comment on above: Performed By: #### L 100.0100, L500.2500 ####[facility] [address] [place], [address] Absolute Neut 4.6 X10 3/uL Normal 2.0-7.7 [facility] Comment on above: Performed By: #### L 100.0100, L500.2500 ####[facility] [address] [place], [address] Basophils/100 WBC (Bld) 1.2 % High 0-1 [facility] Comment on above: Performed By: #### L 100.0100, L500.2500 ####[facility] [address] [place], [address] Eosinophils/100 WBC (Bld) 6.3 % High 0-5 [facility] Comment on above: Performed By: #### L 100.0100, L500.2500 ####[facility] [address] [place], [address] Erythrocyte distribution width (RBC) [Ratio] 13.2 % Normal 11.6-14.6 [facility] Comment on above: Performed By: #### L 100.0100, L500.2500 ####[facility] [address] [place], [address] Hematocrit (Bld) [Volume fraction] 34.3 % Low 40-54 [facility] Comment on above: Performed By: #### L 100.0100, L500.2500 ####[facility] [address] [place], [address] Hemoglobin (Bld) [Mass/Vol] 11.0 g/dL Low 13.0-16.5 [facility] Comment on above: Performed By: #### L 100.0100, L500.2500 ####[facility] [address] [place], [address] IG% 0.800 Normal 0.0-0.9 [facility] Comment on above: Result Comment: IG% - Immature Granulocytes (promyelocytes, myelocytes andmetamyelocytes) > 1% indicates that a LEFT SHIFT is Present. Performed By: #### L 100.0100, L500.2500 ####[facility] [address] [place], [address] Lymphocytes/100 WBC (Bld) 14.6 % Low 19-41 [facility] Comment on above: Performed By: #### L 100.0100, L500.2500 ####[facility] [address] [place], [address] MCH (RBC) [Entitic mass] 28.7 pg Normal 27.0-32.0 [facility] Comment on above: Performed By: #### L 100.0100, L500.2500 ####[facility] [address] [place], [address] MCHC (RBC) [Mass/Vol] 32.1 g/dL Normal 32-[address] [facility] Comment on above: Performed By: #### L 100.0100, L500.2500 ####[facility] [address] [place], [address] MCV (RBC) [Entitic vol] 89.6 fL Normal 80-94 [facility] Comment on above: Performed By: #### L 100.0100, L500.2500 ####[facility] [address] [place], [address] Monocytes/100 WBC (Bld) 7.8 % Normal 0-10 [facility] Comment on above: Performed By: #### L 100.0100, L500.2500 ####[facility] [address] [place], [address] Neutrophils/100 WBC (Bld) 69.3 % Normal 47-70 [facility] Comment on above: Performed By: #### L 100.0100, L500.2500 ####[facility] [address] [place], [address] Nucleated RBC (Bld) [#/Vol] 0 10*3/uL Normal 0-5 [facility] Comment on above: Performed By: #### L 100.0100, L500.2500 ####[facility] [address] [place], [address] Platelet mean volume (Bld) [Entitic vol] 9.0 fL Normal 6.2-12.0 [facility] Comment on above: Performed By: #### L 100.0100, L500.2500 ####[facility] [address] [place], [address] Platelets (Bld) [#/Vol] 279 10*3/uL Normal 150-450 [facility] Comment on above: Performed By: #### L 100.0100, L500.2500 ####[facility] [address] [place], [address] RBC (Bld) [#/Vol] 3.83 10*6/uL Low 4.6-6.2 [facility] Comment on above: Performed By: #### L 100.0100, L500.2500 ####[facility] [address] [place], [address] RDW SD 43.3 fl Normal 35.1-43.9 [facility] Comment on above: Performed By: #### L 100.0100, L500.2500 ####[facility] [address] [place], [address] WBC (Bld) [#/Vol] 6.6 10*3/uL Normal 4.4-11.0 [facility] Comment on above: Performed By: #### L 100.0100, L500.2500 ####[facility] [address] [place], [address] HH, Hemoglobin AND Hematocri ton 07-15-2023 Hematocrit (Bld) [Volume fraction] 35.7 % Low 40-54 [facility] Comment on above: Performed By: #### L 100.0600 ####[facility] [address] [place], [address] Hemoglobin (Bld) [Mass/Vol] 11.2 g/dL Low 13.0-16.5 [facility] Comment on above: Performed By: #### L 100.0600 ####[facility] [address] [place], [address] Operative Reporton Operative Report Normal [facility] Wound Cultureon 07-15-2023 WC Normal [facility] Comment on above: Performed By: #### M 100.3000, L8200.1075, M100.2000 ####[facility] [address] [place], [address] Basic Metabolic Profile (BMP )on 07-14-2023 BUN/CRE 11.7 RATIO Normal 10-20 [facility] Comment on above: Performed By: #### L 100.0100, L500.2500 ####[facility] [address] [place], [address] CA,Total 8.0 mg/dL Low 8.5-10.1 [facility] Comment on above: Performed By: #### L 100.0100, L500.2500 ####[facility] [address] [place], [address] Chloride [Moles/Vol] 117 mmol/L High 98-107 [facility] Comment on above: Performed By: #### L 100.0100, L500.2500 ####[facility] [address] [place], [address] CO2 [Moles/Vol] 25.0 mmol/L Normal 21.0-32.0 [facility] Comment on above: Performed By: #### L 100.0100, L500.2500 ####[facility] [address] [place], [address] Creatinine [Mass/Vol] 0.85 mg/dL Normal 0.70-1.[address] [facility] Comment on above: Result Comment: The validity of the calculated GFR GFRAA in patients over70 years has not been determined. Clinical correlation isessential. Performed By: #### L 100.0100, L500.2500 ####[facility] [address] [place], [address] ECRCL 125.70 ml/min Normal [facility] Comment on above: Performed By: #### L 100.0100, L500.2500 ####[facility] [address] [place], [address] EST GFR - AA 114 mL/min Normal >60 [facility] Comment on above: Result Comment: Afri can [place] GFR Calc Performed By: #### L 100.0100, L500.2500 ####[facility] [address] [place], [address] GAP 3 Low 5-15 [facility] Comment on above: Performed By: #### L 100.0100, L500.2500 ####[facility] [address] [place], [address] GFR/1.73 sq M.predicted among non-blacks MDRD (S/P/Bld) [Vol rate/Area] 94 mL/min/{1.73_m2} Normal >60 [facility] Comment on above: Result Comment: Non- GFR Calc Performed By: #### L 100.0100, L500.2500 ####[facility] [address] [place], [address] Glucose [Mass/Vol] 103 mg/dL Normal 74-106 [facility] Comment on above: Result Comment: Fast ing Glucose result from 100 to 125 mg/dLsuggests IMPAIRED HOMEOSTASIS per A.D.A. criteria. Performed By: #### L 100.0100, L500.2500 ####[facility] [address] [place], [address] Potassium [Moles/Vol] 3.2 mmol/L Low 3.5-5.[address] [facility] Comment on above: Performed By: #### L 100.0100, L500.2500 ####[facility] [address] [place], [address] Sodium [Moles/Vol] 145 mmol/L Normal 136-145 [facility] Comment on above: Performed By: #### L 100.0100, L500.2500 ####[facility] [address] [place], [address] Urea nitrogen [Mass/Vol] 10 mg/dL Normal 7-18 [facility] Comment on above: Performed By: #### L 100.0100, L500.2500 ####[facility] [address] [place], [address] CBC W/Diff, Automatedon 03-0 2-2023 Absolute Lymph 0.83 X10 3/uL Normal 0.83-4.51 [facility] Comment on above: Performed By: #### L 100.0100, L500.2500 ####[facility] [address] [place], [address] Absolute Neut 5.2 X10 3/uL Normal 2.0-7.7 [facility] Comment on above: Performed By: #### L 100.0100, L500.2500 ####[facility] [address] [place], [address] Basophils/100 WBC (Bld) 1.0 % Normal 0-1 [facility] Comment on above: Performed By: #### L 100.0100, L500.2500 ####[facility] [address] [place], [address] Eosinophils/100 WBC (Bld) 5.1 % High 0-5 [facility] Comment on above: Performed By: #### L 100.0100, L500.2500 ####[facility] [address] [place], [address] Erythrocyte distribution width (RBC) [Ratio] 13.1 % Normal 11.6-14.6 [facility] Comment on above: Performed By: #### L 100.0100, L500.2500 ####[facility] [address] [place], [address] Hematocrit (Bld) [Volume fraction] 32.5 % Low 40-54 [facility] Comment on above: Performed By: #### L 100.0100, L500.2500 ####[facility] [address] [place], [address] Hemoglobin (Bld) [Mass/Vol] 10.3 g/dL Low 13.0-16.5 [facility] Comment on above: Performed By: #### L 100.0100, L500.2500 ####[facility] [address] [place], [address] IG% 0.400 Normal 0.0-0.9 [facility] Comment on above: Result Comment: IG% - Immature Granulocytes (promyelocytes, myelocytes andmetamyelocytes) > 1% indicates that a LEFT SHIFT is Present. Performed By: #### L 100.0100, L500.2500 ####[facility] [address] [place], [address] Lymphocytes/100 WBC (Bld) 11.7 % Low 19-41 [facility] Comment on above: Performed By: #### L 100.0100, L500.2500 ####[facility] [address] [place], [address] MCH (RBC) [Entitic mass] 28.3 pg Normal 27.0-32.0 [facility] Comment on above: Performed By: #### L 100.0100, L500.2500 ####[facility] [address] [place], [address] MCHC (RBC) [Mass/Vol] 31.7 g/dL Low 32-[address] [facility] Comment on above: Performed By: #### L 100.0100, L500.2500 ####[facility] [address] [place], [address] MCV (RBC) [Entitic vol] 89.3 fL Normal 80-94 [facility] Comment on above: Performed By: #### L 100.0100, L500.2500 ####[facility] [address] [place], [address] Monocytes/100 WBC (Bld) 9.0 % Normal 0-10 [facility] Comment on above: Performed By: #### L 100.0100, L500.2500 ####[facility] [address] [place], [address] Neutrophils/100 WBC (Bld) 72.8 % High 47-70 [facility] Comment on above: Performed By: #### L 100.0100, L500.2500 ####[facility] [address] [place], [address] Nucleated RBC (Bld) [#/Vol] 0 10*3/uL Normal 0-5 [facility] Comment on above: Performed By: #### L 100.0100, L500.2500 ####[facility] [address] [place], [address] Platelet mean volume (Bld) [Entitic vol] 8.8 fL Normal 6.2-12.0 [facility] Comment on above: Performed By: #### L 100.0100, L500.2500 ####[facility] [address] [place], [address] Platelets (Bld) [#/Vol] 257 10*3/uL Normal 150-450 [facility] Comment on above: Performed By: #### L 100.0100, L500.2500 ####[facility] [address] [place], [address] RBC (Bld) [#/Vol] 3.64 10*6/uL Low 4.6-6.2 [facility] Comment on above: Performed By: #### L 100.0100, L500.2500 ####[facility] [address] [place], [address] RDW SD 42.6 fl Normal 35.1-43.9 [facility] Comment on above: Performed By: #### L 100.0100, L500.2500 ####[facility] [address] [place], [address] WBC (Bld) [#/Vol] 7.1 10*3/uL Normal 4.4-11.0 [facility] Comment on above: Performed By: #### L 100.0100, L500.2500 ####[facility] [address] [place], [address] Gram Stainon 07-14-2023 GS Gram Stain 2+ Gram positive cocci 2+ Gram positive rods Rare Red Blood Cells No Epithelial cells No White Blood Cells Normal [facility] Comment on above: Performed By: #### M 100.1999, L8200.1075, M100.3000 ####[facility] [address] [place], [address] Lower Ext/No Jt/w/oon 2023 Lower Ext/No Jt/w/o Normal [facility] MRSA Wound DNA by PCRon MRSA DNA ASSAY Negative Normal Negative [facility] Comment on above: Order Comment: left heel wound Performed By: #### M 100.1999, L8200.1075, M100.3000 ####[facility] [address] [place], [address] SA DNA ASSAY Positive Abnormal Negative [facility] Comment on above: Order Comment: left heel wound Performed By: #### M 100.1999, L8200.1075, M100.3000 ####[facility] [address] [place], [address] Magnesiumon 07-14-2023 Magnesium [Mass/Vol] 1.9 mg/dL Normal 1.6-2.6 [facility] Comment on above: Performed By: #### L 501.5200 ####[facility] [address] [place], [address] Vancomycin, Random Levelon 0 07-14-2023 VANCO, RANDOM 14.3 ug/mL Normal 0.0-15.0 [facility] Comment on above: Result Comment: VANC OMYCIN STANDARD DRUG THERAPY: CRITICAL VALUE IS > 15.0 mg/LVANCOMYCIN HIGH INTENSITY THERAPY: CRITICAL VALUE IS > 20.0 mg/LPLEASE CONTACT PHARMACY SERVICES (#5888) FOR INTERPRETATIONOF RESULTS. THIS RESULT DOES NOT REPRESENT A PEAK OR TROUGHLEVEL FOR THIS DRUG. Performed By: #### L 501.8850 ####[facility] [address] [place], [address] Vancomycin, Trough Levelon 0 07-14-2023 VANCO, TROUGH 23.4 ug/mL High 5.0-15.0 [facility] Comment on above: Order Comment: Comme nts: DRAW 30 MIN PRIOR TO [id number] Result Comment: VANC OMYCIN STANDARED DRUG THERAPY TROUGH LEVEL: 5.0 - 15.0 mg/LVANCOMYCIN HIGH INTENSITY THERAPY TROUGH LEVEL: 15.0 - 20.0 mg/LHigh Intensity therapy recommended for serious lifethreatening infections include:- Vjnbmflbkm-Xcrxdcbejyrp-Eezukovbm (Ventilator/Healtcare Associated)-SepsisPLEASE CONTACT PHARMACY SERVICES (#8339) FOR INTERPRETATIONOF RESULTS. Performed By: #### L 501.8820 ####[facility] [address] [place], [place], [address] 12 Lead EKGon 07-13-2023 12 Lead EKG Normal [facility] Basic Metabolic Profile (BMP )on 07-13-2023 BUN/CRE 12.0 RATIO Normal 10-20 [facility] Comment on above: Performed By: #### L 500.2500, L100.0100 ####[facility] [address] [place], [address] CA,Total 7.9 mg/dL Low 8.5-10.1 [facility] Comment on above: Performed By: #### L 500.2500, L100.0100 ####[facility] [address] [place], [address] Chloride [Moles/Vol] 117 mmol/L High 98-107 [facility] Comment on above: Performed By: #### L 500.2500, L100.0100 ####[facility] [address] [place], [address] CO2 [Moles/Vol] 24.0 mmol/L Normal 21.0-32.0 [facility] Comment on above: Performed By: #### L 500.2500, L100.0100 ####[facility] [address] [place], [address] Creatinine [Mass/Vol] 0.83 mg/dL Normal 0.70-1.[address] [facility] Comment on above: Result Comment: The validity of the calculated GFR GFRAA in patients over70 years has not been determined. Clinical correlation isessential. Performed By: #### L 500.2500, L100.0100 ####[facility] [address] [place], [address] ECRCL 128.73 ml/min Normal [facility] Comment on above: Performed By: #### L 500.2500, L100.0100 ####[facility] [address] [place], [address] EST GFR - AA 118 mL/min Normal >60 [facility] Comment on above: Result Comment: Afri can [place] GFR Calc Performed By: #### L 500.2500, L100.0100 ####[facility] [address] [place], [address] GAP 4 Low 5-15 [facility] Comment on above: Performed By: #### L 500.2500, L100.0100 ####[facility] [address] [place], [address] GFR/1.73 sq M.predicted among non-blacks MDRD (S/P/Bld) [Vol rate/Area] 97 mL/min/{1.73_m2} Normal >60 [facility] Comment on above: Result Comment: Non- GFR Calc Performed By: #### L 500.2500, L100.0100 ####[facility] [address] [place], [address] Glucose [Mass/Vol] 99 mg/dL Normal 74-106 [facility] Comment on above: Performed By: #### L 500.2500, L100.0100 ####[facility] [address] [place], [address] Potassium [Moles/Vol] 3.0 mmol/L Low 3.5-5.[address] [facility] Comment on above: Performed By: #### L 500.2500, L100.0100 ####[facility] [address] [place], [address] Sodium [Moles/Vol] 145 mmol/L Normal 136-145 [facility] Comment on above: Performed By: #### L 500.2500, L100.0100 ####[facility] [address] [place], [address] Urea nitrogen [Mass/Vol] 10 mg/dL Normal 7-18 [facility] Comment on above: Performed By: #### L 500.2500, L100.0100 ####[facility] [address] [place], [address] CBC W/Diff, Automatedon 03-0 Absolute Lymph 0.84 X10 3/uL Normal 0.83-4.51 [facility] Comment on above: Performed By: #### L 500.2500, L100.0100 ####[facility] [address] [place], [address] Absolute Neut 5.7 X10 3/uL Normal 2.0-7.7 [facility] Comment on above: Performed By: #### L 500.2500, L100.0100 ####[facility] [address] [place], [address] Basophils/100 WBC (Bld) 0.8 % Normal 0-1 [facility] Comment on above: Performed By: #### L 500.2500, L100.0100 ####[facility] [address] [place], [address] Eosinophils/100 WBC (Bld) 2.4 % Normal 0-5 [facility] Comment on above: Performed By: #### L 500.2500, L100.0100 ####[facility] [address] [place], [address] Erythrocyte distribution width (RBC) [Ratio] 13.1 % Normal 11.6-14.6 [facility] Comment on above: Performed By: #### L 500.2500, L100.0100 ####[facility] [address] [place], [address] Hematocrit (Bld) [Volume fraction] 32.8 % Low 40-54 [facility] Comment on above: Performed By: #### L 500.2500, L100.0100 ####[facility] [address] [place], [address] Hemoglobin (Bld) [Mass/Vol] 10.6 g/dL Low 13.0-16.5 [facility] Comment on above: Performed By: #### L 500.2500, L100.0100 ####[facility] [address] [place], [address] IG% 0.800 Normal 0.0-0.9 [facility] Comment on above: Result Comment: IG% - Immature Granulocytes (promyelocytes, myelocytes andmetamyelocytes) > 1% indicates that a LEFT SHIFT is Present. Performed By: #### L 500.2500, L100.0100 ####[facility] [address] [place], [address] Lymphocytes/100 WBC (Bld) 11.0 % Low 19-41 [facility] Comment on above: Performed By: #### L 500.2500, L100.0100 ####[facility] [address] [place], [address] MCH (RBC) [Entitic mass] 28.6 pg Normal 27.0-32.0 [facility] Comment on above: Performed By: #### L 500.2500, L100.0100 ####[facility] [address] [place], [address] MCHC (RBC) [Mass/Vol] 32.3 g/dL Normal 32-[address] [facility] Comment on above: Performed By: #### L 500.2500, L100.0100 ####[facility] [address] [place], [address] MCV (RBC) [Entitic vol] 88.4 fL Normal 80-94 [facility] Comment on above: Performed By: #### L 500.2500, L100.0100 ####[facility] [address] [place], [address] Monocytes/100 WBC (Bld) 10.0 % Normal 0-10 [facility] Comment on above: Performed By: #### L 500.2500, L100.0100 ####[facility] [address] [place], [address] Neutrophils/100 WBC (Bld) 75.0 % High 47-70 [facility] Comment on above: Performed By: #### L 500.2500, L100.0100 ####[facility] [address] [place], [address] Nucleated RBC (Bld) [#/Vol] 0 10*3/uL Normal 0-5 [facility] Comment on above: Performed By: #### L 500.2500, L100.0100 ####[facility] [address] [place], [address] Platelet mean volume (Bld) [Entitic vol] 9.2 fL Normal 6.2-12.0 [facility] Comment on above: Performed By: #### L 500.2500, L100.0100 ####[facility] [address] [place], [address] Platelets (Bld) [#/Vol] 264 10*3/uL Normal 150-450 [facility] Comment on above: Performed By: #### L 500.2500, L100.0100 ####[facility] [address] [place], [address] RBC (Bld) [#/Vol] 3.71 10*6/uL Low 4.6-6.2 [facility] Comment on above: Performed By: #### L 500.2500, L100.0100 ####[facility] [address] [place], [address] RDW SD 42.4 fl Normal 35.1-43.9 [facility] Comment on above: Performed By: #### L 500.2500, L100.0100 ####[facility] [address] [place], [address] WBC (Bld) [#/Vol] 7.6 10*3/uL Normal 4.4-11.0 [facility] Comment on above: Performed By: #### L 500.2500, L100.0100 ####[facility] [address] [place], [address] Consultation - Infectious Dx on 07-13-2023 Consultation - Infectious Dx Normal [facility] Decalcification bone/plaqueo n 07-13-2023 Decalcification bone/plaque Normal [facility] Comment on above: Performed By: #### P DEC ####[facility] [address] [place], [address] Echo Completeon 07-13-2023 Echo Complete Normal [facility] Magnesiumon 07-13-2023 Magnesium [Mass/Vol] 1.9 mg/dL Normal 1.6-2.6 [facility] Comment on above: Performed By: #### L 501.9520, L501.5200 ####[facility] [address] [place], [address] Partial Thromboplast Timeon 07-13-2023 aPTT Coag (Bld) [Time] 34.8 s Normal 24.1-36.2 [facility] Comment on above: Performed By: #### L 300.3900, L300.4310 ####[facility] [address] [place], [address] Prothrombin Time w/INRon INR Coag (PPP) [Relative time] 1.2 {INR} Normal [facility] Comment on above: Performed By: #### L 300.3900, L300.4310 ####[facility] [address] [place], [address] PT Coag (PPP) [Time] 15.6 s High 11.7-14.9 [facility] Comment on above: Performed By: #### L 300.3900, L300.4310 ####[facility] [address] [place], [address] Thyroid Stim Hormone (TSH)on 07-13-2023 TSH 1.44 uIU/mL Normal 0.358-3.74 [facility] Comment on above: Performed By: #### L 501.9520, L501.5200 ####[facility] [address] [place], [address] Absolute lymphocyte countOrd ered By: Nicola De Leon on 07-12-2023 Lymphocytes Auto (Unsp spec) [#/Vol] 0.61 10*3/uL 0.83-4.51 [facility] Automated lymphocyte count a s percentage of total leukocytesOrdered By: Remus Moises on 07-12-2023 Lymphocytes/100 WBC Auto (Unsp spec) 5.3 % 19-41 [facility] Basic Metabolic Profile (BMP )on 07-12-2023 BUN/CRE 11.8 RATIO Normal 10-20 [facility] Comment on above: Performed By: #### L 503.6005, L100.0100, L500.2500 ####[facility] [address] [place], [address] CA,Total 9.0 mg/dL Normal 8.5-10.1 [facility] Comment on above: Performed By: #### L 503.6005, L100.0100, L500.2500 ####[facility] [address] [place], [address] Chloride [Moles/Vol] 109 mmol/L High 98-107 [facility] Comment on above: Performed By: #### L 503.6005, L100.0100, L500.2500 ####[facility] [address] [place], [address] CO2 [Moles/Vol] 26.0 mmol/L Normal 21.0-32.0 [facility] Comment on above: Performed By: #### L 503.6005, L100.0100, L500.2500 ####[facility] [address] [place], [address] Creatinine [Mass/Vol] 1.02 mg/dL Normal 0.70-1.[address] [facility] Comment on above: Result Comment: The validity of the calculated GFR GFRAA in patients over70 years has not been determined. Clinical correlation isessential. Performed By: #### L 503.6005, L100.0100, L500.2500 ####[facility] [address] [place], [address] ECRCL 105.13 ml/min Normal [facility] Comment on above: Performed By: #### L 503.6005, L100.0100, L500.2500 ####[facility] [address] [place], [address] EST GFR - AA 93 mL/min Normal >60 [facility] Comment on above: Result Comment: Afri can [place] GFR Calc Performed By: #### L 503.6005, L100.0100, L500.2500 ####[facility] [address] [place], [address] GAP 6 Normal 5-15 [facility] Comment on above: Performed By: #### L 503.6005, L100.0100, L500.2500 ####[facility] [address] [place], [address] GFR/1.73 sq M.predicted among non-blacks MDRD (S/P/Bld) [Vol rate/Area] 77 mL/min/{1.73_m2} Normal >60 [facility] Comment on above: Result Comment: Non- GFR Calc Performed By: #### L 503.6005, L100.0100, L500.2500 ####[facility] [address] [place], [address] Glucose [Mass/Vol] 102 mg/dL Normal 74-106 [facility] Comment on above: Result Comment: Fast ing Glucose result from 100 to 125 mg/dLsuggests IMPAIRED HOMEOSTASIS per A.D.A. criteria. Performed By: #### L 503.6005, L100.0100, L500.2500 ####[facility] [address] [place], [address] Potassium [Moles/Vol] 2.4 mmol/L Invalid Interpretation Code 3.5-5.1 [facility] Comment on above: Result Comment: Crit ical Result(s) Called at: 15:18:25 07/12/2023 by: Desean Feldman RN (ER). Results read back by same. Performed By: #### L 503.6005, L100.0100, L500.2500 ####[facility] [address] [place], [address] Sodium [Moles/Vol] 141 mmol/L Normal 136-145 [facility] Comment on above: Performed By: #### L 503.6005, L100.0100, L500.2500 ####[facility] [address] [place], [address] Urea nitrogen [Mass/Vol] 12 mg/dL Normal 7-18 [facility] Comment on above: Performed By: #### L 503.6005, L100.0100, L500.2500 ####[facility] [address] [place], [address] Basophil percentageOrdered B y: Remus Ungur on 07-12-2023 Lactate [Moles/Vol] 0.8 mmol/L 0.4-2.0 [facility] Basophils/100 WBC (Bld) 0.4 % 0-1 [facility] Chloride [Moles/Vol] 109 mmol/L 98-107 [facility] Eosinophils/100 WBC (Bld) 1.0 % 0-5 [facility] Glucose [Mass/Vol] 102 mg/dL 74-106 [facility] Comment on above: Fasting Glucose resu lt from 100 to 125 mg/dL suggests IMPAIRED HOMEOSTASIS per A.D.A. criteria. Hemoglobin (Bld) [Mass/Vol] 12.7 g/dL 13.0-16.5 [facility] Lactate [Moles/Vol] 2.0 mmol/L 0.4-2.0 [facility] Comment on above: Critical Result(s) C alled at: 17:18:01 07/12/2023 by: Tristan Everett to Aminata Magdaleno. Results read back by same. Monocytes/100 WBC (Bld) 7.3 % 0-10 [facility] Neutrophils (Bld) [#/Vol] 9.8 10*3/uL 2.0-7.7 [facility] Neutrophils/100 WBC (Bld) 85.4 % 47-70 [facility] Potassium [Moles/Vol] 2.4 mmol/L 3.5-5.[address] [facility] Comment on above: Critical Result(s) C alled at: 15:18:25 07/12/2023 by: Milton Wharton to Gaston GUERRA (ER). Results read back by same. Sodium [Moles/Vol] 141 mmol/L 136-145 [facility] WBC (Bld) [#/Vol] 11.4 10*3/uL 4.4-11.0 [facility] CBC W/Diff, Automatedon 02-2 Absolute Lymph 0.61 X10 3/uL Low 0.83-4.51 [facility] Comment on above: Performed By: #### L 503.6005, L100.0100, L500.2500 ####[facility] [address] [place], [address] Absolute Neut 9.8 X10 3/uL High 2.0-7.7 [facility] Comment on above: Performed By: #### L 503.6005, L100.0100, L500.2500 ####[facility] [address] [place], [address] Basophils/100 WBC (Bld) 0.4 % Normal 0-1 [facility] Comment on above: Performed By: #### L 503.6005, L100.0100, L500.2500 ####[facility] [address] [place], [address] Eosinophils/100 WBC (Bld) 1.0 % Normal 0-5 [facility] Comment on above: Performed By: #### L 503.6005, L100.0100, L500.2500 ####[facility] [address] [place], [address] Erythrocyte distribution width (RBC) [Ratio] 12.8 % Normal 11.6-14.6 [facility] Comment on above: Performed By: #### L 503.6005, L100.0100, L500.2500 ####[facility] [address] [place], [address] Hematocrit (Bld) [Volume fraction] 39.0 % Low 40-54 [facility] Comment on above: Performed By: #### L 503.6005, L100.0100, L500.2500 ####[facility] [address] [place], [address] Hemoglobin (Bld) [Mass/Vol] 12.7 g/dL Low 13.0-16.5 [facility] Comment on above: Performed By: #### L 503.6005, L100.0100, L500.2500 ####[facility] [address] [place], [address] IG% 0.600 Normal 0.0-0.9 [facility] Comment on above: Result Comment: IG% - Immature Granulocytes (promyelocytes, myelocytes andmetamyelocytes) > 1% indicates that a LEFT SHIFT is Present. Performed By: #### L 503.6005, L100.0100, L500.2500 ####[facility] [address] [place], [address] Lymphocytes/100 WBC (Bld) 5.3 % Low 19-41 [facility] Comment on above: Performed By: #### L 503.6005, L100.0100, L500.2500 ####[facility] [address] [place], [address] MCH (RBC) [Entitic mass] 28.7 pg Normal 27.0-32.0 [facility] Comment on above: Performed By: #### L 503.6005, L100.0100, L500.2500 ####[facility] [address] [place], [address] MCHC (RBC) [Mass/Vol] 32.6 g/dL Normal 32-[address] [facility] Comment on above: Performed By: #### L 503.6005, L100.0100, L500.2500 ####[facility] [address] [place], [address] MCV (RBC) [Entitic vol] 88.2 fL Normal 80-94 [facility] Comment on above: Performed By: #### L 503.6005, L100.0100, L500.2500 ####[facility] [address] [place], [address] Monocytes/100 WBC (Bld) 7.3 % Normal 0-10 [facility] Comment on above: Performed By: #### L 503.6005, L100.0100, L500.2500 ####[facility] [address] [place], [address] Neutrophils/100 WBC (Bld) 85.4 % High 47-70 [facility] Comment on above: Performed By: #### L 503.6005, L100.0100, L500.2500 ####[facility] [address] [place], [address] Nucleated RBC (Bld) [#/Vol] 0 10*3/uL Normal 0-5 [facility] Comment on above: Performed By: #### L 503.6005, L100.0100, L500.2500 ####[facility] [address] [place], [address] Platelet mean volume (Bld) [Entitic vol] 9.0 fL Normal 6.2-12.0 [facility] Comment on above: Performed By: #### L 503.6005, L100.0100, L500.2500 ####[facility] [address] [place], [address] Platelets (Bld) [#/Vol] 309 10*3/uL Normal 150-450 [facility] Comment on above: Performed By: #### L 503.6005, L100.0100, L500.2500 ####[facility] [address] [place], [address] RBC (Bld) [#/Vol] 4.42 10*6/uL Low 4.6-6.2 [facility] Comment on above: Performed By: #### L 503.6005, L100.0100, L500.2500 ####[facility] [address] [place], [address] RDW SD 41.9 fl Normal 35.1-43.9 [facility] Comment on above: Performed By: #### L 503.6005, L100.0100, L500.2500 ####[facility] [address] [place], [address] WBC (Bld) [#/Vol] 11.4 10*3/uL High 4.4-11.0 [facility] Comment on above: Performed By: #### L 503.6005, L100.0100, L500.2500 ####[facility] [address] [place], [address] Determination of erythrocyte mean corpuscular volume (MCV)Ordered By: Nicola De Leon on 07-12-2023 MCV (RBC) [Entitic vol] 88.2 fL 80-94 [facility] Emergency Department Summary on 07-12-2023 Emergency Department Summary Normal [facility] Erythrocyte distribution wid th ratioOrdered By: Nicola De Leon on 07-12-2023 Erythrocyte distribution width (RBC) [Ratio] 12.8 % 11.6-14.6 [facility] Erythrocyte distribution wid th standard deviationOrdered By: Nicola De Leon on 07-12-2023 Erythrocyte distribution width (RBC) [Entitic vol] 41.9 fL 35.1-43.9 [facility] Foot min 3 Viewson 4 Foot min 3 Views Normal [facility] Gram Stainon 07-12-2023 GS Gram Stain 3+ Gram negative rods 3+ Gram positive cocci No cells seen Normal [facility] Comment on above: Performed By: #### M 100.3000, L8200.1075, M100.2000 ####[facility] [address] [place], [address] Gram stain for investigation of transfusion reactionOrdered By: Nicola De Leon on 07-12-2023 Microscopic observation Gram stain Nom (Unsp spec) [facility] H AND P Exam - Hospitaliston 07-12-2023 H&P Exam - Hospitalist Normal [facility] Hematocrit Auto (Bld) [Volum e fraction]Ordered By: Nicola De Leon on 07-12-2023 Hematocrit (Bld) [Volume fraction] 39.0 % 40-54 [facility] Immature granulocytes/100 WB C Auto (Bld)Ordered By: Nicola De Leon on 07-12-2023 Immature granulocytes/100 WBC (Bld) 0.600 % 0.0-0.9 [facility] Comment on above: IG% - Immature Granu locytes (promyelocytes, myelocytes and metamyelocytes) > 1% indicates that a LEFT SHIFT is Present. Laboratory - Chemistry and C hemistry - challengeOrdered By: Nicola De Leon on 07-12-2023 CO2 [Moles/Vol] 26.0 mmol/L 21.0-32.0 [facility] Urea nitrogen/Creatinine [Mass ratio] 11.8 mg/mg 10-20 [facility] Laboratory - Hematology and Cell countsOrdered By: Nicola De Leon on 07-12-2023 MCH (RBC) [Entitic mass] 28.7 pg 27.0-32.0 [facility] MCHC (RBC) [Mass/Vol] 32.6 g/dL 32-[address] [facility] Nucleated RBC/100 WBC (Bld) [Ratio] 0 % 0-5 [facility] Platelet mean volume (Bld) [Entitic vol] 9.0 fL 6.2-12.0 [facility] Platelets (Bld) [#/Vol] 309 10*3/uL 150-450 [facility] Lactic Acidon 07-12-2023 Lactate [Moles/Vol] 0.8 mmol/L Normal 0.4-1.9 [facility] Comment on above: Performed By: #### L 503.6005 ####[facility] [address] [place], [address] Lactate [Moles/Vol] 2.0 mmol/L Normal 0.4-1.9 [facility] Comment on above: Order Comment: Y Result Comment: Crit ical Result(s) Called at: 17:18:01 07/12/2023 by: Jaelyn to Aminata Magdaleno. Results read back by same. Performed By: #### L 503.6005, L100.0100, L500.2500 ####[facility] [address] [place], [address] MRSA Wound DNA by PCRon 06-15 MRSA DNA ASSAY Negative Normal Negative [facility] Comment on above: Order Comment: FOOT WOUND Performed By: #### M 100.3000, L8200.1075, M100.1999 ####[facility] [address] [place], [address] SA DNA ASSAY Positive Abnormal Negative [facility] Comment on above: Order Comment: FOOT WOUND Performed By: #### M 100.3000, L8200.1075, M100.1999 ####[facility] [address] [place], [address] No Panel InformationOrdered By: Nicola De Leon on 07-12-2023 Estimated Creatinine Clearance Calc 105.13 ml/min [facility] Estimated GFR (MDRD) Amer 93 mL/min >60 [facility] Comment on above: GFR Calc Estimated GFR (MDRD) Non-Af Amer 77 mL/min >60 [facility] Comment on above: Non- GFR Calc Methicillin-Resist S.aureus DNA PCR Negative Negative [facility] RBC Auto (Bld) [#/Vol]Ordere d By: Nicola Moises on 07-12-2023 RBC (Bld) [#/Vol] 4.42 10*6/uL 4.6-6.2 [facility] Serum or plasma calcium evelio urement (mass/volume)Ordered By: Nicola De Leon on 07-12-2023 Calcium [Mass/Vol] 9.0 mg/dL 8.5-10.1 [facility] Serum or plasma creatinine m easurement (mass/volume)Ordered By: [facility] on 07-12-2023 Creatinine [Mass/Vol] 1.02 mg/dL 0.70-1.[address] [facility] Comment on above: The validity of the calculated GFR & GFRAA in patients over 70 years has not been determined. Clinical correlation is essential. Serum or plasma urea nitroge n measurement (mass/volume)Ordered By: [facility] De [facility] on 07-12-2023 Urea nitrogen [Mass/Vol] 12 mg/dL 7-18 [facility] Staphylococcus aureus DNA de tection by probe and target amplification methodOrdered By: [facility] De [facility] on 07-12-2023 S. aureus DNA QASIM+probe Ql (Unsp spec) Positive Negative [facility] Thin prep Papanicolaou smear with manual screeningOrdered By: [facility] on 07-12-2023 Thin prep Papanicolaou smear with manual screening 6 5-15 [facility] Absolute lymphocyte countOrd ered By: Marcus Sandoval on 07-02-2023 Lymphocytes Auto (Unsp spec) [#/Vol] 0.57 10*3/uL 0.83-4.51 [facility] Automated lymphocyte count a s percentage of total leukocytesOrdered By: Marcus Sandoval on 07-02-2023 Lymphocytes/100 WBC Auto (Unsp spec) 4.5 % 19-41 [facility] Basophil percentageOrdered B y: Marcus Sandoval on 07-02-2023 Basophils/100 WBC (Bld) 0.6 % 0-1 [facility] Bilirubin [Mass/Vol] 1.40 mg/dL 0.20-1.00 [facility] Comment on above: For patients on eltr ombopag therapy, use of Dimension [place] TBIL is not recommended. Chloride [Moles/Vol] 110 mmol/L 98-107 [facility] Eosinophils/100 WBC (Bld) 0.3 % 0-5 [facility] Glucose [Mass/Vol] 100 mg/dL 74-106 [facility] Comment on above: Fasting Glucose resu lt from 100 to 125 mg/dL suggests IMPAIRED HOMEOSTASIS per A.D.A. criteria. Hemoglobin (Bld) [Mass/Vol] 13.5 g/dL 13.0-16.5 [facility] Lactate [Moles/Vol] 2.1 mmol/L 0.4-2.0 [facility] Comment on above: Critical Result(s) C alled at: 17:20:42 07/02/2023 by: Mriyam Valverde to [place]. Results read back by same. Monocytes/100 WBC (Bld) 9.2 % 0-10 [facility] Neutrophils (Bld) [#/Vol] 10.7 10*3/uL 2.0-7.7 [facility] Neutrophils/100 WBC (Bld) 84.8 % 47-70 [facility] Potassium [Moles/Vol] 3.2 mmol/L 3.5-5.[address] [facility] Protein [Mass/Vol] 8.4 g/dL 6.4-8.2 [facility] Sodium [Moles/Vol] 140 mmol/L 136-145 [facility] WBC (Bld) [#/Vol] 12.6 10*3/uL 4.4-11.0 [facility] CBC W/Diff, Automatedon 06-14 Absolute Lymph 0.57 X10 3/uL Low 0.83-4.51 [facility] Comment on above: Performed By: #### L 101.9900, L500.4050, L100.0100, L503.6005 ####[facility] [address] [place], [place], [address] Absolute Neut 10.7 X10 3/uL High 2.0-7.7 [facility] Comment on above: Performed By: #### L 101.9900, L500.4050, L100.0100, L503.6005 ####[facility] [address] [place], [address] Basophils/100 WBC (Bld) 0.6 % Normal 0-1 [facility] Comment on above: Performed By: #### L 101.9900, L500.4050, L100.0100, L503.6005 ####[facility] [address] [place], [address] Eosinophils/100 WBC (Bld) 0.3 % Normal 0-5 [facility] Comment on above: Performed By: #### L 101.9900, L500.4050, L100.0100, L503.6005 ####[facility] [address] [place], [address] Erythrocyte distribution width (RBC) [Ratio] 13.1 % Normal 11.6-14.6 [facility] Comment on above: Performed By: #### L 101.9900, L500.4050, L100.0100, L503.6005 ####[facility] [address] [place], [address] Hematocrit (Bld) [Volume fraction] 41.4 % Normal 40-54 [facility] Comment on above: Performed By: #### L 101.9900, L500.4050, L100.0100, L503.6005 ####[facility] [address] [place], [address] Hemoglobin (Bld) [Mass/Vol] 13.5 g/dL Normal 13.0-16.5 [facility] Comment on above: Performed By: #### L 101.9900, L500.4050, L100.0100, L503.6005 ####[facility] [address] [place], [address] IG% 0.600 Normal 0.0-0.9 [facility] Comment on above: Result Comment: IG% - Immature Granulocytes (promyelocytes, myelocytes andmetamyelocytes) > 1% indicates that a LEFT SHIFT is Present. Performed By: #### L 101.9900, L500.4050, L100.0100, L503.6005 ####[facility] [address] [place], [address] Lymphocytes/100 WBC (Bld) 4.5 % Low 19-41 [facility] Comment on above: Performed By: #### L 101.9900, L500.4050, L100.0100, L503.6005 ####[facility] [address] [place], [address] MCH (RBC) [Entitic mass] 28.9 pg Normal 27.0-32.0 [facility] Comment on above: Performed By: #### L 101.9900, L500.4050, L100.0100, L503.6005 ####[facility] [address] [place], [address] MCHC (RBC) [Mass/Vol] 32.6 g/dL Normal 32-[address] [facility] Comment on above: Performed By: #### L 101.9900, L500.4050, L100.0100, L503.6005 ####[facility] [address] [place], [address] MCV (RBC) [Entitic vol] 88.7 fL Normal 80-94 [facility] Comment on above: Performed By: #### L 101.9900, L500.4050, L100.0100, L503.6005 ####[facility] [address] [place], [address] Monocytes/100 WBC (Bld) 9.2 % Normal 0-10 [facility] Comment on above: Performed By: #### L 101.9900, L500.4050, L100.0100, L503.6005 ####[facility] [address] [place], [address] Neutrophils/100 WBC (Bld) 84.8 % High 47-70 [facility] Comment on above: Performed By: #### L 101.9900, L500.4050, L100.0100, L503.6005 ####[facility] [address] [place], [address] Nucleated RBC (Bld) [#/Vol] 0 10*3/uL Normal 0-5 [facility] Comment on above: Performed By: #### L 101.9900, L500.4050, L100.0100, L503.6005 ####[facility] [address] [place], [address] Platelet mean volume (Bld) [Entitic vol] 9.5 fL Normal 6.2-12.0 [facility] Comment on above: Performed By: #### L 101.9900, L500.4050, L100.0100, L503.6005 ####[facility] [address] [place], [address] Platelets (Bld) [#/Vol] 238 10*3/uL Normal 150-450 [facility] Comment on above: Performed By: #### L 101.9900, L500.4050, L100.0100, L503.6005 ####[facility] [address] [place], [address] RBC (Bld) [#/Vol] 4.67 10*6/uL Normal 4.6-6.2 [facility] Comment on above: Performed By: #### L 101.9900, L500.4050, L100.0100, L503.6005 ####[facility] [address] [place], [address] RDW SD 42.4 fl Normal 35.1-43.9 [facility] Comment on above: Performed By: #### L 101.9900, L500.4050, L100.0100, L503.6005 ####[facility] [address] [place], [address] WBC (Bld) [#/Vol] 12.6 10*3/uL High 4.4-11.0 [facility] Comment on above: Performed By: #### L 101.9900, L500.4050, L100.0100, L503.6005 ####[facility] [address] [place], [address] Comprehensive Metabolic Prof ilon 07-02-2023 Albumin [Mass/Vol] 3.2 g/dL Normal 3.2-5.0 [facility] Comment on above: Performed By: #### L 101.9900, L500.4050, L100.0100, L503.6005 ####[facility] [address] [place], [address] Albumin/Globulin [Mass ratio] 0.6 {ratio} Low 0.9-2.4 [facility] Comment on above: Performed By: #### L 101.9900, L500.4050, L100.0100, L503.6005 ####[facility] [address] [place], [address] ALK P 63 U/L Normal 45-117 [facility] Comment on above: Performed By: #### L 101.9900, L500.4050, L100.0100, L503.6005 ####[facility] [address] [place], [address] ALT [Catalytic activity/Vol] 27 U/L Normal 16-61 [facility] Comment on above: Performed By: #### L 101.9900, L500.4050, L100.0100, L503.6005 ####[facility] [address] [place], [address] AST [Catalytic activity/Vol] 34 U/L Normal 15-37 [facility] Comment on above: Performed By: #### L 101.9900, L500.4050, L100.0100, L503.6005 ####[facility] [address] [place], [address] Bilirubin [Mass/Vol] 1.40 mg/dL High 0.20-1.00 [facility] Comment on above: Result Comment: For patients on eltrombopag therapy, use of Dimension [place] TBIL is not recommended. Performed By: #### L 101.9900, L500.4050, L100.0100, L503.6005 ####[facility] [address] [place], [address] BUN/CRE 14.8 RATIO Normal 10-20 [facility] Comment on above: Performed By: #### L 101.9900, L500.4050, L100.0100, L503.6005 ####[facility] [address] [place], [address] CA,Total 9.1 mg/dL Normal 8.5-10.1 [facility] Comment on above: Performed By: #### L 101.9900, L500.4050, L100.0100, L503.6005 ####[facility] [address] [place], [address] Chloride [Moles/Vol] 110 mmol/L High 98-107 [facility] Comment on above: Performed By: #### L 101.9900, L500.4050, L100.0100, L503.6005 ####[facility] [address] [place], [address] CO2 [Moles/Vol] 24.0 mmol/L Normal 21.0-32.0 [facility] Comment on above: Performed By: #### L 101.9900, L500.4050, L100.0100, L503.6005 ####[facility] [address] [place], [address] Creatinine [Mass/Vol] 1.15 mg/dL Normal 0.70-1.[address] [facility] Comment on above: Result Comment: The validity of the calculated GFR GFRAA in patients over70 years has not been determined. Clinical correlation isessential. Performed By: #### L 101.9900, L500.4050, L100.0100, L503.6005 ####[facility] [address] [place], [address] EST GFR - AA 81 mL/min Normal >60 [facility] Comment on above: Result Comment: Afri can [place] GFR Calc Performed By: #### L 101.9900, L500.4050, L100.0100, L503.6005 ####[facility] [address] [place], [address] GAP 6 Normal 5-15 [facility] Comment on above: Performed By: #### L 101.9900, L500.4050, L100.0100, L503.6005 ####[facility] [address] [place], [address] GFR/1.73 sq M.predicted among non-blacks MDRD (S/P/Bld) [Vol rate/Area] 67 mL/min/{1.73_m2} Normal >60 [facility] Comment on above: Result Comment: Non- GFR Calc Performed By: #### L 101.9900, L500.4050, L100.0100, L503.6005 ####[facility] [address] [place], [address] Globulin (S) [Mass/Vol] 5.2 g/dL High 2.2-4.2 [facility] Comment on above: Performed By: #### L 101.9900, L500.4050, L100.0100, L503.6005 ####[facility] [address] [place], [address] Glucose [Mass/Vol] 100 mg/dL Normal 74-106 [facility] Comment on above: Result Comment: Fast ing Glucose result from 100 to 125 mg/dLsuggests IMPAIRED HOMEOSTASIS per A.D.A. criteria. Performed By: #### L 101.9900, L500.4050, L100.0100, L503.6005 ####[facility] [id number] [place], [address] Potassium [Moles/Vol] 3.2 mmol/L Low 3.5-5.[address] [facility] Comment on above: Performed By: #### L 101.9900, L500.4050, L100.0100, L503.6005 ####[facility] [address] [place], [address] Sodium [Moles/Vol] 140 mmol/L Normal 136-145 [facility] Comment on above: Performed By: #### L 101.9900, L500.4050, L100.0100, L503.6005 ####[facility] [address] [place], [address] T PROT 8.4 g/dL High 6.4-8.2 [facility] Comment on above: Performed By: #### L 101.9900, L500.4050, L100.0100, L503.6005 ####[facility] [address] [place], [address] Urea nitrogen [Mass/Vol] 17 mg/dL Normal 7-18 [facility] Comment on above: Performed By: #### L 101.9900, L500.4050, L100.0100, L503.6005 ####[facility] [address] [place], [address] Determination of erythrocyte mean corpuscular volume (MCV)Ordered By: Marcus Sandoval on 07-02-2023 MCV (RBC) [Entitic vol] 88.7 fL 80-94 [facility] Emergency Department Summary on 07-02-2023 Emergency Department Summary Normal [facility] Erythrocyte Sed Rateon 07-02 SED RATE 42 mm/hr High 0-20 [facility] Comment on above: Performed By: #### L 101.9900, L500.4050, L100.0100, L503.6005 ####[facility] [address] [place], [address] Erythrocyte distribution wid th ratioOrdered By: Marcusromy Sandoval on 07-02-2023 Erythrocyte distribution width (RBC) [Ratio] 13.1 % 11.6-14.6 [facility] Erythrocyte distribution wid th standard deviationOrdered By: Marcusromy Sandoval on 07-02-2023 Erythrocyte distribution width (RBC) [Entitic vol] 42.4 fL 35.1-43.9 [facility] Erythrocyte sedimentation ra teOrdered By: Marcus Sandoval on 07-02-2023 ESR (Bld) [Velocity] 42 mm/h 0-20 [facility] Foot min 3 Viewson 4 Foot min 3 Views Normal [facility] Hematocrit Auto (Bld) [Volum e fraction]Ordered By: Marcus Sandoval on 07-02-2023 Hematocrit (Bld) [Volume fraction] 41.4 % 40-54 [facility] Immature granulocytes/100 WB C Auto (Bld)Ordered By: Marcus Sandoval on 07-02-2023 Immature granulocytes/100 WBC (Bld) 0.600 % 0.0-0.9 [facility] Comment on above: IG% - Immature Granu locytes (promyelocytes, myelocytes and metamyelocytes) > 1% indicates that a LEFT SHIFT is Present. Laboratory - Chemistry and C hemistry - challengeOrdered By: Marcusromy Sandoval on 07-02-2023 Albumin/Globulin [Mass ratio] 0.6 {ratio} 0.9-2.4 [facility] ALP [Catalytic activity/Vol] 63 U/L 45-117 [facility] ALT [Catalytic activity/Vol] 27 U/L 16-61 [facility] CO2 [Moles/Vol] 24.0 mmol/L 21.0-32.0 [facility] Globulin (S) [Mass/Vol] 5.2 g/dL 2.2-4.2 [facility] Urea nitrogen/Creatinine [Mass ratio] 14.8 mg/mg 10-20 [facility] Laboratory - Hematology and Cell countsOrdered By: Marcusromy Sandoval on 07-02-2023 MCH (RBC) [Entitic mass] 28.9 pg 27.0-32.0 [facility] MCHC (RBC) [Mass/Vol] 32.6 g/dL 32-[address] [facility] Nucleated RBC/100 WBC (Bld) [Ratio] 0 % 0-5 [facility] Platelet mean volume (Bld) [Entitic vol] 9.5 fL 6.2-12.0 [facility] Platelets (Bld) [#/Vol] 238 10*3/uL 150-450 [facility] Lactic Acidon 07-02-2023 Lactate [Moles/Vol] 2.1 mmol/L Invalid Interpretation Code 0.4-1.9 [facility] Comment on above: Order Comment: Y Result Comment: Crit ical Result(s) Called at: 17:20:42 07/02/2023 by:Miryam Valverde to [facility]. Results read back by same. Performed By: #### L 101.9900, L500.4050, L100.0100, L503.6005 ####[facility] [id number] [place], [address] No Panel InformationOrdered By: Marcusromy Sandoval on 07-02-2023 Estimated GFR (MDRD) Amer 81 mL/min >60 [facility] Comment on above: GFR Calc Estimated GFR (MDRD) Non-Af Amer 67 mL/min >60 [facility] Comment on above: Non- GFR Calc RBC Auto (Bld) [#/Vol]Ordere d By: Marcus Sandoval on 07-02-2023 RBC (Bld) [#/Vol] 4.67 10*6/uL 4.6-6.2 [facility] Serum or plasma calcium evelio urement (mass/volume)Ordered By: Marcus Sandoval on 07-02-2023 Calcium [Mass/Vol] 9.1 mg/dL 8.5-10.1 [facility] Serum or plasma creatinine m easurement (mass/volume)Ordered By: Marcus Sandoval on 07-02-2023 Creatinine [Mass/Vol] 1.15 mg/dL 0.70-1.[address] [facility] Comment on above: The validity of the calculated GFR & GFRAA in patients over 70 years has not been determined. Clinical correlation is essential. Serum or plasma urea nitroge n measurement (mass/volume)Ordered By: Marcus Sandoval on 07-02-2023 Urea nitrogen [Mass/Vol] 17 mg/dL 7-18 [facility] Thin prep Papanicolaou smear with manual screeningOrdered By: Marcusromy Sandoval on 07-02-2023 Thin prep Papanicolaou smear with manual screening 3.2 g/dL 3.2-5.0 [facility] Thin prep Papanicolaou smear with manual screening 34 U/L 15-37 [facility] Thin prep Papanicolaou smear with manual screening 6 5-15 [facility] Bacteria identified Cx Nom ( Wound)Ordered By: Dr. 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 W [facility] Wound Culture Staphylococcus aureus [facility] Wound Culture Streptococcus group G [facility] Wound Culture Staphylococcus simulans [facility] Absolute lymphocyte countOrd ered By: Dr. 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 W [facility] Wound Culture Staphylococcus aureus [facility] Wound Culture Streptococcus group G [facility] Wound Culture Staphylococcus simulans [facility] Basophil percentageOrdered B y: Dr. Mckenzie on 09-22-2022 Basophils/100 WBC (Bld) 0.9 % 0-1 [facility] Chloride [Moles/Vol] 103 mmol/L 98-107 [facility] Eosinophils/100 WBC (Bld) 1.5 % 0-5 [facility] Glucose [Mass/Vol] 107 mg/dL 74-106 [facility] Comment on above: Fasting Glucose resu lt from 100 to 125 mg/dL suggests IMPAIRED HOMEOSTASIS per A.D.A. criteria. Neutrophils (Bld) [#/Vol] 7.1 10*3/uL 2.0-7.7 [facility] Neutrophils/100 WBC (Bld) 79.6 % 47-70 [facility] Potassium [Moles/Vol] 3.2 mmol/L 3.5-5.[address] [facility] Sodium [Moles/Vol] 138 mmol/L 136-145 [facility] WBC (Bld) [#/Vol] 8.9 10*3/uL 4.4-11.0 [facility] Blood erythrocytes count (nu mber/volume)Ordered By: Dr. Mckenzie on 09-22-2022 RBC (Bld) [#/Vol] 4.45 10*6/uL 4.6-6.2 [facility] Blood hemoglobin measurement (mass/volume)Ordered By: Dr. Mckenzie on 09-22-2022 Hemoglobin (Bld) [Mass/Vol] 12.5 g/dL 13.0-16.5 [facility] Blood lymphocytes/100 leukoc ytesOrdered By: Dr. Mckenzie on 09-22-2022 Lymphocytes/100 WBC (Bld) 9.5 % 19-41 [facility] Blood monocytes/100 leukocyt esOrdered By: Dr. Mckenzie on 09-22-2022 Monocytes/100 WBC (Bld) 6.9 % 0-10 [facility] Blood platelet mean volumeOr dered By: Dr. Mckenzie on 09-22-2022 Platelet mean volume (Bld) [Entitic vol] 10.0 fL 6.2-12.0 [facility] Determination of erythrocyte mean corpuscular volume (MCV)Ordered By: Dr. Mckenzie on 09-22-2022 MCV (RBC) [Entitic vol] 89.2 fL 80-94 [facility] Gram stain for investigation of transfusion reactionOrdered By: Cristhian Mckenzie on 09-22-2022 Microscopic observation Gram stain Nom (Unsp spec) [facility] Gram stain for investigation of transfusion reactionOrdered By: Dr. Mckenzie on 09-22-2022 Microscopic observation Gram stain Nom (Unsp spec) [facility] Hematocrit Auto (Bld) [Volum e fraction]Ordered By: Dr. Mckenzie on 09-22-2022 Hematocrit (Bld) [Volume fraction] 39.7 % 40-54 [facility] Laboratory - Chemistry and C hemistry - challengeOrdered By: Dr. Mckenzie on 09-22-2022 CO2 [Moles/Vol] 30.0 mmol/L 21.0-32.0 [facility] Natriuretic peptide B (Bld) [Mass/Vol] 24.2 pg/mL 0-100 [facility] Urea nitrogen/Creatinine [Mass ratio] 15.4 mg/mg 10-20 [facility] Laboratory - Hematology and Cell countsOrdered By: Dr. Mckenzie on 09-22-2022 Erythrocyte distribution width (RBC) [Entitic vol] 45.7 fL 35.1-43.9 [facility] Erythrocyte distribution width (RBC) [Ratio] 14.1 % 11.6-14.6 [facility] Immature granulocytes/100 WBC (Bld) 1.600 % 0.0-0.9 [facility] Comment on above: IG% - Immature Granu locytes (promyelocytes, myelocytes and metamyelocytes) > 1% indicates that a LEFT SHIFT is Present. MCH (RBC) [Entitic mass] 28.1 pg 27.0-32.0 [facility] Nucleated RBC/100 WBC (Bld) [Ratio] 0 % 0-5 [facility] MCHC Auto (RBC) [Mass/Vol]Or dered By: Dr. Mckenzie on 09-22-2022 MCHC (RBC) [Mass/Vol] 31.5 g/dL 32-[address] [facility] No Panel InformationOrdered By: Dr. Mckenzie on 09-22-2022 Estimated Creatinine Clearance Calc 87.36 ml/min [facility] Estimated GFR (MDRD) Amer 115 mL/min >60 [facility] Comment on above: GFR Calc Estimated GFR (MDRD) Non-Af Amer 95 mL/min >60 [facility] Comment on above: Non- GFR Calc Platelets bldOrdered By: Dr. Mckenzie on 09-22-2022 Platelets (Bld) [#/Vol] 236 10*3/uL 150-450 [facility] Serum or plasma calcium evelio urement (mass/volume)Ordered By: Dr. Mckenzie on 09-22-2022 Calcium [Mass/Vol] 9.2 mg/dL 8.5-10.1 [facility] Serum or plasma creatinine m easurement (mass/volume)Ordered By: Dr. Mckenzie on 09-22-2022 Creatinine [Mass/Vol] 0.85 mg/dL 0.70-1.[address] [facility] Comment on above: The validity of the calculated GFR & GFRAA in patients over 70 years has not been determined. Clinical correlation is essential. Serum or plasma urea nitroge n measurement (mass/volume)Ordered By: Dr. Mckenzie on 09-22-2022 Urea nitrogen [Mass/Vol] 13 mg/dL 7-18 [facility] Thin prep Papanicolaou smear with manual screeningOrdered By: Dr. Mckenzie on 09-22-2022 Thin prep Papanicolaou smear with manual screening 5 5-15 [facility] Vital Signs Date Time Vital Sign Value Performing Clinician Johnathan gamboa 07-13-2023 00:32-0500 Body temperature 98.6 [degF] [facility] Work Phone: [facility] 07-13-2023 00:32-0500 Diastolic blood pressure 63 mm[Hg] [facility] Work Phone: [facility] 07-13-2023 00:32-0500 Heart rate 98 /min [facility] Work Phone: [facility] 07-13-2023 00:32-0500 Respiratory rate 18 /min [facility] Work Phone: [facility] 07-13-2023 00:32-0500 SaO2% (BldA) [Mass fraction] 94 % [facility] Work Phone: [facility] 07-13-2023 00:32-0500 Systolic blood pressure 114 mm[Hg] [facility] Work Phone: [facility] 07-12-2023 17:23-0500 Body height 180.34 cm [facility] Work Phone: [facility] 07-12-2023 17:23-0500 Body mass index (BMI) [Ratio] 49.7 kg/m2 [facility] Work Phone: [facility] 07-12-2023 17:23-0500 Body weight 161.79 kg [facility] Work Phone: [facility] 07-12-2023 16:00-0500 Body temperature 97.9 [degF] [facility] 07-12-2023 16:00-0500 Diastolic blood pressure 66 mm[Hg] [facility] 07-12-2023 16:00-0500 Heart rate 87 /min [facility] 07-12-2023 16:00-0500 Respiratory rate 16 /min [facility] 07-12-2023 16:00-0500 SaO2% (BldA) [Mass fraction] 97 % [facility] 07-12-2023 16:00-0500 Systolic blood pressure 119 mm[Hg] [facility] 07-12-2023 14:20-0500 Body mass index (BMI) [Ratio] 50 kg/m2 [facility] 07-12-2023 14:20-0500 Body weight 162.8 kg [facility] 07-12-2023 13:58-0500 Body height 180.34 cm [facility] 07-02-2023 20:41-0500 Body temperature 97.7 [degF] [facility] 07-02-2023 20:41-0500 Diastolic blood pressure 56 mm[Hg] [facility] 07-02-2023 20:41-0500 Heart rate 98 /min [facility] 07-02-2023 20:41-0500 Respiratory rate 17 /min [facility] 07-02-2023 20:41-0500 SaO2% (BldA) [Mass fraction] 95 % [facility] 07-02-2023 20:41-0500 Systolic blood pressure 127 mm[Hg] [facility] 07-02-2023 15:56-0500 Body height 180.34 cm [facility] 11-16-2022 10:05-0400 Body mass index (BMI) [Ratio] 47.4 kg/m2 Dr. Yajaira Heller Work Phone: 2(266)203-904812 [address] 11-16-2022 10:05-0400 Body temperature 97.9 [degF] Dr. Yajaira Heller Work Phone: 0(998)860-778472 [place] [address] 11-16-2022 10:05-0400 Diastolic blood pressure 86 mm[Hg] Dr. Yajaira Heller Work Phone: 3(762)805-767472 [place] [address] 11-16-2022 10:05-0400 Heart rate 93 /min Dr. Yajaira Heller Work Phone: 2(586)251-181472 [place] [address] 11-16-2022 10:05-0400 Respiratory rate 16 /min Dr. Yajaira Heller Work Phone: 4(996)314-179472 [place] [address] 11-16-2022 10:05-0400 Systolic blood pressure 135 mm[Hg] Dr. Yajaira Heller Work Phone: 6(267)714-584172 [place] [address] 11-11-2022 01:33-0400 Body weight 154.[address] Yajaira Heller Work Phone: 8(716)556-817872 [place] [address] 11-02-2022 09:21-0400 Body mass index (BMI) [Ratio] 47.4 kg/m2 Dr. Yajaira Heller Work Phone: 7(958)492-860872 [place] [address] 11-02-2022 09:21-0400 Body temperature 97.7 [degF] Dr. Yajaira Heller Work Phone: 5(688)194-844472 [place] [address] 11-02-2022 09:21-0400 Diastolic blood pressure 94 mm[Hg] Dr. Yajaira Heller Work Phone: 8(543)281-405772 [place] [address] 11-02-2022 09:21-0400 Heart rate 91 /min Dr. Yajaira Heller Work Phone: 0(992)967-651472 [place] [address] 11-02-2022 09:21-0400 Respiratory rate 16 /min Dr. Yajaira Heller Work Phone: 6(448)565-808672 [place] [address] 11-02-2022 09:21-0400 Systolic blood pressure 165 mm[Hg] Dr. Yajaira Heller Work Phone: 3(879)275-498072 [place] [address] 10-12-2022 00:48-0400 Body weight 154.[address] Yajaira Heller Work Phone: 0(490)415-796872 [place] [address] 10-10-2022 09:53-0400 Body mass index (BMI) [Ratio] 47.4 kg/m2 Dr. Yajaira Heller Work Phone: 4(615)050-722672 [place] [address] 10-10-2022 09:53-0400 Body temperature 97.1 [degF] Dr. Yajaira Heller Work Phone: 1(198)801-698072 [place] [address] 10-10-2022 09:53-0400 Diastolic blood pressure 76 mm[Hg] Dr. Yajaira Heller Work Phone: 8(681)374-602672 [place] [address] 10-10-2022 09:53-0400 Heart rate 102 /min Dr. Yajaira Heller Work Phone: 0(086)573-892672 [place] [address] 10-10-2022 09:53-0400 Respiratory rate 18 /min Dr. Yajaira Heller Work Phone: 6(960)388-537172 [place] [address] 10-10-2022 09:53-0400 Systolic blood pressure 119 mm[Hg] Dr. Yajaira Heller Work Phone: 8(754)971-884672 [place] [address] 10-05-2022 09:08-0400 Body height 180.[address] Yajaira Heller Work Phone: 3(906)464-986972 [place] [address] 10-05-2022 09:08-0400 Body weight 154.[address] Yajaira Heller Work Phone: 1(446)110-722472 [place] [address] 09-22-2022 12:00-0400 Respiratory rate 22 /min [facility] 09-22-2022 08:19-0400 Body mass index (BMI) [Ratio] 49.1 kg/m2 [facility] 09-22-2022 08:19-0400 Body weight 160 kg [facility] 09-22-2022 08:050400 Body height 180.34 cm [facility] 09-22-2022 08:05-0400 Body temperature 97.8 [degF] [facility] 09-22-2022 08:05-0400 Diastolic blood pressure 75 mm[Hg] [facility] 09-22-2022 08:05-0400 Heart rate 99 /min [facility] 09-22-2022 08:05-0400 SaO2% (BldA) [Mass fraction] 96 % [facility] 09-22-2022 08:05-0400 Systolic blood pressure 124 mm[Hg] [facility] Encounters Encounter Date Encounter Type Care Provider Facility Start: 04-21-2024 End: 05-09-2024 ambulatory Myles Rebollar Facility:[facility] Start: 04-09-2024 End: 04-12-2024 ambulatory Myles Moss Facility:[facility] Start: 03-12-2024 End: 03-13-2024 ambulatory Myles Rebollar Facility:[facility] Start: 02-11-2024 End: 02-11-2024 ambulatory Myles Rebollar Facility:[facility] Start: 01-09-2024 End: 01-12-2024 ambulatory Alejandro Sanders Facility:[facility] Start: 12-12-2023 End: 12-12-2023 ambulatory Myles Rebollar Facility:[facility] Start: 11-09-2023 End: 11-11-2023 ambulatory Myles Rebollar Facility:[facility] Start: 10-10-2023 End: 10-12-2023 ambulatory Myles Rebollar Facility:[facility] Start: 10-01-2023 End: 10-01-2023 ambulatory Alyssa Gudla OLS Facility:[facility] Start: 09-10-2023 ambulatory Alyssa Gudla OLS Facili ty:[facility] Start: 08-27-2023 ambulatory Alyssa Gudla OLS Facili ty:[facility] Start: 08-20-2023 ambulatory Alyssa Gudla OLS Facili ty:[facility] Start: 08-13-2023 ambulatory Alyssa Gudla OLS Facili ty:[facility] Start: 08-06-2023 ambulatory Alyssa Gudla OLS Facili ty:[facility] Start: 07-30-2023 ambulatory Alyssa Gudla OLS Facili ty:[facility] Start: 07-23-2023 ambulatory Alyssa Gudla OLS Facili ty:[facility] Start: 07-18-2023 ambulatory Alyssa Gudla OLS Facili ty:[facility] Start: 07-13-2023 ambulatory Sherry Sarkar cility:[facility] Start: 07-12-2023 Non-patient / Non-visit [facility] Work Phone: [facility] Work Phone: Start: 07-12-2023 ambulatory Aundrea Lange Facility :[facility] Start: 07-12-2023 End: 07-17-2023 Evaluation and management of inpatient [facility] Work Phone: Start: 07-12-2023 End: 07-12-2023 Discharged Recurring [facility] Work Phone: [facility] Work Phone: Start: 07-12-2023 Registered Recurring [facility] [place] Work Phone: Start: 07-12-2023 End: 07-12-2023 ambulatory [facility] Work Phone: [facility] Work Phone: Start: 07-02-2023 End: 07-02-2023 Emergency department patient visit [facility] Work Phone: Start: 11-16-2022 Non-patient / Non-visit Dr. Yajaira Heller Work Phone: [facility] Work Phone: Start: 11-16-2022 End: 11-17-[address] Yajaira Heller Work Phone: [facility] Work Phone: Start: 11-16-2022 End: 11-17-[address] Yajaira Heller Work Phone: [facility] Work Phone: Start: 11-02-2022 Non-patient / Non-visit Dr. Yajaira Heller Work Phone: [facility] Work Phone: Start: 11-02-2022 End: 11-10-[address] Yajaira Heller Work Phone: [facility] Work Phone: Start: 11-02-2022 End: 11-10-[address] Yajaira Heller Work Phone: [facility] Work Phone: Start: 10-26-2022 Non-patient / Non-visit Dr. Yajaira Heller Work Phone: [facility] Work Phone: Start: 10-19-2022 Non-patient / Non-visit Dr. Yajaira Heller Work Phone: [facility] Work Phone: Start: 10-12-2022 Non-patient / Non-visit Dr. Yajaira Heller Work Phone: [facility] Work Phone: Start: 10-10-2022 End: 10-11-[address] Yajaira Heller Work Phone: [facility] Work Phone: Start: 10-10-2022 End: 10-11-[address] Yajaira Heller Work Phone: [facility] Start: 10-05-2022 Non-patient / Non-visit Dr. Yajaira Heller Work Phone: [facility] Start: 09-22-2022 End: 09-22-2022 Emergency department patient visit [facility] Procedures Date Procedure Procedure Detail Performing Clinician Start: 07-12-2023 X-ray of both feet Start: 07-12-2023 Investigation of transfusion reaction Start: 07-02-2023 X-ray of both feet Start: 09-22-2022 Investigation of transfusion reaction Dr. Yajaira Heller Work Phone: Start: 09-22-2022 Microbial culture, routine Dr. Yajaira Heller Work Phone: Start: 09-22-2022 End: 09-22-2022 Radiography of ankle Microbial culture, routine D nannette Heller Work Phone: Plan of Treatment Date Care Activity Detail Author Start: 07-13-2023 Blood chemistry [facility] Start: 07-12-2023 Referral to occupati onal therapist [facility] Start: 07-12-2023 Referral to service [facility] Start: 07-12-2023 [facility]ation [facility] Start: 07-12-2023 Following clinical p athway protocol [facility] Start: 07-12-2023 Assessment of risk o f venous thromboembolism [facility] Start: 07-12-2023 Catheterization of vein [facility] Start: 07-12-2023 Consultation for treatment [facility] Start: 07-12-2023 Insertion of cathete r into peripheral vein [facility] Start: 07-12-2023 MRI of lower extremity Lower Ext/No Jt/w/o [facility] Start: 07-12-2023 Providing care accor ding to standard [facility] Start: 07-12-2023 Provision of activit y privileges [facility] Start: 07-12-2023 Referral to studio potter [facility] Start: 07-12-2023 [facility] Start: 07-12-2023 Verification routine [facility] Start: 07-12-[address] [facility] Start: 07-12-2023 End: 07-12-2023 Blood culture [facility] Start: 07-12-2023 [facility] Start: 07-12-2023 Bacteria identified in Blood by Culture Blood Culture [facility] Start: 07-12-2023 Wound Culture Wound Culture [facility] Start: 07-12-2023 [facility]ation [facility] Start: 07-12-2023 Patient referral to dietitian [facility] Start: 07-02-2023 [facility] Start: 07-02-2023 Referral to service [facility] Start: 09-22-2022 [facility] Anion gap measurement [facility] BUN/Creatinine ratio [facility] Calcium [Mass/volume ] in Serum or Plasma [facility] Carbon dioxide, tota l [Moles/volume] in Serum or Plasma [facility] Chloride [Moles/volu me] in Serum or Plasma [facility] Creatinine [Moles/vo lume] in Serum or Plasma [facility] Erythrocyte mean cor puscular volume determination [facility] Glucose [Mass/volume ] in Serum or Plasma [facility] Hematocrit [Volume F raction] of Blood [facility] Hemoglobin [Mass/vol ume] in Blood [facility] Leukocytes [#/volume ] in Blood [facility] Mean corpuscular hem oglobin concentration determination [facility] Mean corpuscular hem oglobin determination [facility] Measurement of renal function [facility] Microscopic observat ion [Identifier] in Unspecified specimen by Gram stain Gram Stain [facility] Neutrophil count [facility] Neutrophil percent differential count [facility] Patient Education [facility] Work Phone: Patient referral [facility] Work Phone: Platelets [#/volume] in Blood [facility] Potassium [Moles/vol ume] in Serum or Plasma [facility] Red blood cell count [facility] Red cell distributio n width determination [facility] Sodium [Moles/volume ] in Serum or Plasma [facility] Urea nitrogen [Mass/ volume] in Serum or Plasma [facility] Vancomycin [Mass/vol ume] in Serum or Plasma --trough [facility] Wound Culture Wound Culture [facility] Wound microscopy, cu lture and sensitivities [facility] Immunizations Immunization Date Immunization Notes Care Provider Fa francinety 03-04-2022 Covid Moderna Bivale nt Booster [facility] Work Phone: [facility] 05-31-2021 Covid (Moderna) [facility] Work Phone: [facility] 09-02-2020 Covid (Moderna) [facility] Work Phone: [facility] 08-05-2020 Covid (Moderna) [facility] Work Phone: [facility] Payers Date Payer Category Payer Medicaid [id number] 2023 Self-pay [id number] 2023 Unknown [id number] Medicare MEDICARE PART A B [id number] Private Health Insurance [facility] 18 [id number] Unknown SELF INS [facility] [employer] [id number] Unknown [id number] .1.909867.3.579.2. 462 Unknown [id number] .1.522878.3.579.2. 462 Unknown [id number] ..1.339297.3.579.2. 462 Unknown [id number] .0.1.892519.3.579.2. 462 Unknown [id number] ..1.632761.3.579.2. 462 Unknown [id number] 2.16.840.1.106822.3.579.2. 462 Unknown [id number] 2.16.840.1.000276.3.579.2. 462 Unknown [id number] 2.16.840.1.509253.3.579.2. 462 Unknown [id number] 2.16.840.1.816410.3.579.2. 462 Unknown [id number] 2.840.1.839513.3.579.2. 462 Unknown [id number] 2.840.1.100014.3.579.2. 462 Unknown [id number] 2.840.1.857845.3.579.2. 462 Unknown [id number] 2.840.1.372141.3.579.2. 462 Unknown [id number] 2.840.1.269596.3.579.2. 462 Unknown [id number] 2.840.1.099339.3.579.2. 462 Unknown [id number] 2.840.1.273785.3.579.2. 462 Unknown [id number] 2.840.1.571751.3.579.2. 462 Unknown [id number] 2.840.1.896327.3.579.2. 462 Unknown [id number] 2.840.1.565315.3.579.2. 462 Unknown [id number] 2.840.1.647078.3.579.2. 462 Unknown [id number] 2.840.1.272916.3.579.2. 462 Unknown [id number] 2.16840.1.679582.3.579.2. 462 Unknown [id number] 2.840.1.365685.3.579.2. 462 Unknown [id number] 2.840.1.992369.3.579.2. 462 Unknown [id number] 2.840.1.066911.3.579.2. 462 Unknown [id number] 2.16840.1.408129.3.579.2. 462 Unknown [id number] 2.16840.1.752484.3.579.2. 462 Unknown [id number] 2.0.1.287598.3.579.2. 462 Social History Date Type Detail Facility Start: 09-22-2022 End: 07-12-2023 Tobacco smoking status NHIS Unknown if ever smoked [facility] Start: 10-01-2019 [facility] Start: 10-01-2019 [facility] Start: 11-12-2019 [facility] Start: 1955 Sex Assigned At Male W [facility] Goals Date Patient Goal Desired Activity /State Functional Status Date Assessment Result Facility 07-12-2023 Functional status [facility] Work Phone: Mental Status Date Assessment Result Facility 07-12-2023 Cognitive function Voice/Name [facility] Work Phone: 09-22-2022 Cognitive function Level Of Cons ciousness Awake;Alert;Appropriate;Follow s Commands [facility] Work Phone: Clinical Notes 09-22-2022 to 07-17-2023 Note Date & Type Note Facility 07-17-2023 Note [facility] 07-13-2023 Note [facility] 07-02-2023 Discharge summary Note Date/Time July 02, 2023 5:09pm [facility] Medical Records Department [address] [place] [address] Emergency Department Summary 07/02/23 MR#: [id number] Acct: [id number] Name: JAK TANNER Rep #:[id number] : 1955 68 From: Marcus Sandoval MD PCP: [facility] St atus:REG ER Location: ED HPI History of Present Illness Chief Complaint: Wound Check Detail of Chief Complaint: Wound heel of left foot Informant: patient Onset/Context/Timing Onset: Days Context: Gradual Onset Timing: Continuous Quality: Wound plantar surface left heel Location: Plantar surface left heel Current Severity: Mild Maximum Severity: Mild Worsened by: Unknown Relieved by: Nothing Associated Symptoms Associated Symptoms: None Narrative Narrative: Patient is a 68-year-old male. He is homeless. He has lived in his van for thepast 10 years. He has chronic lymphedema. He has a wound on the plantar surface of his left heel. He denies fever, chills night sweats. He denies orthopnea or PND. He denies chest discomfort. He denies history of congestive heart failure. Review of prior records indicates patient has history of chroniclymphedema with wounds of his lower extremities and cellulitis in the past. Prior similar symptoms: Yes Recent Illness/Hospitalization: No [facility] Medical History Lymphedema Ulcer of left lower extremity with fat layer exposed Ulcer of right lower extremity with fat layer exposed Home Medications furosemide 40 mg tablet (Lasix) 40 mg PO DAILY #30 tabs 09/22/22 [Rx Last Taken Unknown] Allergy/AdvReac Type Severity Reaction Status Date / Time No Known Allergies Allergy Verified 07/02/23 15:56 Social History (Updated 07/02/23 @ 17:[address] Marcus Sandoval MD) household members: none housing: homeless Smoking Status: Never smoker ROS ROS ED Constitutional Constitutional ED: Denies chills, fever(s), subjective, sweats or weight loss Eyes Eyes: Denies blurry vision, change in vision or diplopia ENT ENT ED: Denies ear pain, rhinorrhea or sore throat Cardiovascular Cardiovascular: Denies chest pain, orthopnea, palpitations, paroxysmal nocturnaldyspnea or racing heartbeat Respiratory/Chest Respiratory/Chest: Denies cough, dyspnea, dyspnea on exertion, orthopnea or paroxysmal nocturnal dyspnea Integumentary Reports other Details: Skin defect plantar surface left heel ; Denies abscess, Abrasions or rash Neurologic Neurologic: Denies headache(s) Endocrine Endocrinology: Denies cold intolerance or heat intolerance Hematologic/Lymphatic Hematologic/Lymphatic: Reports systems reviewed and no addt'l complaints, exceptas documented EXAM Physical Exam Const Vital Signs: 07/02/23 15:56 07/02/23 17:00 07/02/23 18:00 Temperature 97 F L Temperature Source Temporal Pulse Rate 104 H Respiratory Rate 20 H 20 H 20 H Blood Pressure 154/65 H 111/48 L 120/61 Blood Pressure Mean 94 67 77 Pulse Ox 94 91 93 Oxygen Delivery Method Room Air 07/02/23 18:45 07/02/23 19:00 07/02/23 19:15 Temperature Temperature Source Pulse Rate 98 Respiratory Rate 20 H 20 H Blood Pressure 112/54 L 93/49 L 94/42 L Blood Pressure Mean 72 63 58 Pulse Ox 92 92 92 Oxygen Delivery Method Positive well nourished, well developed, obese and unkempt General Appearance ED: unkempt, well developed and NAD Nutritional Appearance: obese HEENT Reports moist mucous membranes HEENT Narrative: Head is atraumatic and normocephalic. Ears normal. Nares patent. Eyes PERRL and EOMs intact bilaterally General Eye ED: Negative for pale conjunctiva or scleral icterus Neck no lymphadenopathy and supple Chest Wall inspection of chest normal and palpation of chest normal Resp normal respiratory effort and clear to auscultation bilaterally Cardio regular rate, regular rhythm, S1 normal heart sound, S2 normal heart sound and no murmurs GI normal to inspection, nondistended, normoactive bowel sounds, non-tender, non-distended and no masses; Negative for hepatosplenomegaly Auscultation: normoactive bowel sounds Back/Spine no CVA tenderness Cervical Spine: Negative for cervical spine tenderness Thoracic Spine / Upper Back: Negative for thoracic spinal tenderness Lumbar Spine / Lower Back: Negative for lumbar spinal tenderness Extremity Negative for normal to inspection Extremity Narrative: Patient has significant lymphedema with venous stasis changes and loss of tissueheel of left foot. This is down to viable tissue. There is no erythema, warmthor induration. Patient complains of pain in both the right and left foot. Neuro oriented x3, CN's II-XII intact bilaterally and no sensory deficits noted Sensorium / Orientation: alert Psych mental status grossly normal Appearance: unkempt Skin Skin Narrative: 3-1/2 cm x 4-1/2 cm skin avulsion plantar surface left heel without evidence of infection MDM MDM MDM Narrative Medical decision making narrative: Consult was placed to case management. Apparently they have gone home. Will obtain blood work to assess for anemia white count differential renal function etc. BMP was obtained to assess renal function and electrolytes. Inflammatory markers were obtained as well as x-ray to assess for evidence of infection i.e. osteomyelitis. History & Record Review Additional record(s) reviewed:: Prior ED visit (Seen September 2022 for hypokalemia. He has no other records available for review) and Prior labs Lab Data Attestation: I reviewed the patient's lab results. Lab results narrative: Patient's white count is slightly elevated. This is nonspecific. Basic metabolic panel is unremarkable. Lactate is elevated 2.1 which is nonspecific especially since wound does not appear infected. Sed rate is unremarkable once corrected for age. Labs: Laboratory Results - last 24 hr 07/02/23 16:45 WBC 12.6 H RBC 4.67 Hgb 13.5 Hct 41.4 MCV 88.7 MCH 28.9 MCHC 32.6 RDW Std Deviation 42.4 RDW Coeff of Thiago 13.1 Plt Count 238 MPV 9.5 Immature Gran % (Auto) 0.600 Neut % (Auto) 84.8 H Lymph % (Auto) 4.5 L Bond % (Auto) 9.2 Eos % (Auto) 0.3 Baso % (Auto) 0.6 Absolute Neuts (auto) 10.7 H Absolute Lymphs (auto) 0.57 L Nucleated RBC % 0 ESR 42 H Sodium 140 Potassium 3.2 L Chloride 110 H Carbon Dioxide 24.0 Anion Gap 6 BUN 17 Creatinine 1.15 Est GFR (MDRD) Af Amer 81 Est GFR (MDRD) Non-Af 67 BUN/Creatinine Ratio 14.8 Glucose 100 Lactic Acid 2.1 H* Calcium 9.1 Total Bilirubin 1.40 H AST 34 ALT 27 Alkaline Phosphatase 63 Total Protein 8.4 H Albumin 3.2 Globulin 5.2 H Albumin/Globulin Ratio 0.6 L Radiography Chest X-Ray - ED: Read by ED Physician (Three-view x-ray of the foot was obtained. There is no evidence of osteomyelitis. There is a skin defect noted heel. He also has marked soft tissue swelling because he has venous stasis dermatitis due to significant lymphedema. This was independent reviewed interpreted by ut [id number]) Diagnostic Testing: Clinical Impression(s) from Imaging Studies Foot X-Ray 07/02/23 16:25 IMPRESSION: Soft tissue swelling without evidence for acute fracture or dislocation. No definitive radiographic evidence for acute osteomyelitis Electronically Signed: Alejandro Christie MD at 17:09 EST Reading Location ID and State: [facility] / [place] Tel , Service support , Discharge Plan Triage Chief Complaint: Wound Check ED Provider: Marcus Sandoval Dx/Rx/DC Orders Clinical Impression: Avulsion of skin of left foot, Lymphedema, Chronic venous stasis dermatitis, Homeless, Elevated blood-pressure reading, without diagnosis of hypertension Instructions: ED Hypertension, To Be Confirmed, ED Skin Tear (Skin Avulsion) Prescriptions: No Action furosemide [Lasix] 40 mg tablet 40 mg PO DAILY Qty: 30 0RF Primary Care Provider: [facility] Yajaira Angel Referrals: [facility],Yajaira Heller [Primary Care Provider] - As soon as possible Activity Restrictions/Additional Instructions: Follow-up at the [facility] for wound evaluation in 2 days. Do not remove the dressing until seen at the wound center. Disposition Disposition: Home, Self Care What to do if you have Problems For any increased pain, shortness of breath, bleeding, nausea or vomiting, chestpain, or any unexpected problems, contact your Primary Care Provider. Call [facility] ([phone]) or report to the closest Emergency Room. Call 911 if necessary. 07/02/231949 <Electronically signed by Marcus Sandoval MD> Cosigner Signature (if applicable): CC: [facility] ~ Signed [facility] Work Phone: 1(930) 724-943907-06-2023 Progress note Author Franklyn Sanchez [facility] November 16, 2022 1:08pm Note Date/Time November 16, 2022 1:08p m [facility] [address] [place] [address] Progress Note - Wound Care 11/16/22 1304 MR#: [id number] Acct: [id number] Name: JAK TANNER Rep #:[id number] : 1955 67 From: Franklyn espinal MD PCP: Dr. Yajaira Heller Status:REG RC R Location: History of Present Illness Date of Service: 11/16/22 Chief Complaint: Bilateral lower extremity ulcers. History of Wound: Mr. Tanner is a 67 yo who was referred to the wound center due to bilateral lower extremity ulcer. Clinic history of lymphedema. He is currently homeless and has been living in his van. He states that over the recent months, he has been sitting a lot more is not as active as it should be. He also states that he has not been using his compression. [facility], he was started on antibiotics and has 1 more day of it. Tolerating antibiotic well. Initially had a lot of drainage from his ulcers but he states that this has improved. No known historyof diabetes. No chills, fever or feeling of unwell at this time. Progress of Wound: No new concerns at this time. Had his Unna boot on till yesterday. He states that he had been walking more lately. Ulcers are healed. Objective Data Objective Data Vital Signs: Vital Signs Temp Pulse Resp BP 97.9 F 93 16 135/86 H 11/16/22 10:05 11/16/22 10:05 11/16/22 10:05 11/16/22 10:05 Weight: 340 lb Body Mass Index (BMI) 47.4 Charges/Coding Visit Charges Office Visits / Consults: 63877 OV L3 Est Physical Exam Const alert, oriented x3 and no apparent distress General Appearance: cooperative and comfortable HEENT normocephalic, head/scalp atraumatic and hearing grossly normal bilaterally Eyes EOMs intact bilaterally Neck full ROM Resp normal respiratory effort Effort and Inspection: able to speak in complete sentences Extremity General Extremity: edema Neuro oriented x3, CN's II-XII intact bilaterally and moves all extremities Psych mental status grossly normal, thought process normal, cooperative and affect normal Debridement Note Debridement Note Post-Debridement Measurements and Additional Note: Post-Debridement Measurements/Treatment - Nurse 1 - General Ulcer Assessment Start: 11/16/22 10:05 Freq: Status: Active Protocol: PHOEBE.LOWEXT Activity Type Activity Date Activity User E-sign Co-sign Detail Recorded Client Recorded Date Recorded By Document 11/16/22 10:05 TIA [id number] 11/16/22 10:15 TIA 11/16/22 10:05 - Today's Visit Information Type of service Follow-up Visit (Physician/DOOR AND ARRIVAL ATTENDANT ) Arrival Mode Ambulatory Patient Identification Verified (Name & Yes ) Patient Requires Transmission-Based Yes Precautions Safety Precautions NA Height and Weight Body Mass Index (BMI) 47.4 BMI Classification Obese Vital Signs Temperature (97.8 F-99.1 F) 97.9 F Temperature Source Temporal Pulse Rate (60-100) 93 Pulse Location Monitor Respiratory Rate (12-18) 16 Respiratory rate source Observation Blood Pressure (90/60-120/80) 135/86 H Blood Pressure Mean (mm Hg) 102 Source Monitor Position Semi-Fowlers Blood Pressure Location Left Arm History Since Last Visit- (Skip if this is Patient's initial visit) Have you changed medications since your No last visit? Any new allergies or adverse reactions No Had a fall/change in ADL's that may No increase risk of falls Signs or symptoms of abuse and/or No neglect since last visit Have you been in the hospital since your No last visit? Has dressing in place as prescribed Yes Has compression in place as prescribed Yes Has offloadiing in place as prescribed N/A Experienced any changes in pain level or No management Left Footwear Surgical Shoe with pressure relief insole Right Footwear Surgical Shoe with pressure relief insole Pain Scale: 0-10 Numeric Is Patient Pain Free? Yes - Nurse 1 - General Ulcer Measurement Start: 11/16/22 10:05 Freq: Status: Active Protocol: Activity Type Activity Date Activity User E-sign Co-sign Detail Recorded Client Recorded Date Recorded By Document 11/16/22 10:05 TIA [id number] 11/16/22 10:15 TIA 11/16/22 10:05 Wound Center Nurse 1 #6- R LAT ANKLE cluster -Combined with other wound No -Current Size (cm) - Length 0 -Current Size (cm) - Width 0 -Current Size (cm) - Depth 0 -Total Square Cm 0 -Photo Taken Yes -Epithelialization Large 67-100% Lower Limb Edema Present Yes Right Calf (cm) 52.5 Right Ankle (cm) 32.5 Left Calf (cm) 57 Left Ankle (cm) 36 - Nurse 2 - General Ulcer CM Notes Start: 11/16/22 10:05 Freq: Status: Active Protocol: Activity Type Activity Date Activity User E-sign Co-sign Detail Recorded Client Recorded Date Recorded By Document 11/16/22 11:01 MW [id number] 11/16/22 11:04 11/16/22 11:01 Wound Center Nurse 2 #6- R LAT ANKLE cluster -Time 11:01 -Correct Patient Yes -Correct Side, Site, Position Yes -Correct Procedure Yes -Procedure Performed No -Post Debridement (cm) - Length 0 -Post Debridement (cm) - Width 0 -Post Debridement (cm) - Depth 0 -Total Square (Post) (cm) 0 -Wound/Ulcer Outcome Healed- Epithelialized Pain Scale: 0-10 Numeric Is Patient Pain Free? Yes - Nurse 3 - General Ulcer D/C NN Start: 11/16/22 10:05 Freq: Status: Active Protocol: Activity Type Activity Date Activity User E-sign Co-sign Detail Recorded Client Recorded Date Recorded By Document 11/16/22 12:07 [id number] 11/16/22 12:08 11/16/22 12:07 Wound Care Center Nurse 3 Right -Tubular Bandage Double Layer -Size of Tubigrip Used Size F -Size F ($) 2 Left -Tubular Bandage Double Layer -Size of Tubigrip Used Size F -Size F ($) 2 Pain Scale: 0-10 Numeric Is Patient Pain Free? Yes WC - Visit Discharge Discharge Condition Stable Ambulatory Status Ambulatory Transportation Private Auto Medication Reconcilliation completed & Yes provided to patient/care provider Clinical Summary of Care Provided Yes Assessment/Plan Assessment/Plan (1) Ulcer of left lower extremity with fat layer exposed: CODE(S): L97.922 - Non-pressure 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 layer exposed (2) Ulcer of right lower extremity with fat layer exposed: CODE(S): L97.912 - Non-pressure chronic ulcer of unspecified part of rightlower leg with fat layer exposed (3) Lymphedema: CODE(S): I89.0 - Lymphedema, not elsewhere classified (4) Homeless single person: CODE(S): Z59.0 - Homelessness PLAN: Plan No debridement completed today. Ulcers are healed. Prescription for 30 - 40 mmHgcompression stockings given. In the meantime, double layer tubigrips recommended. Leg elevation, exercise as tolerated discussed, he voiced understanding. Optimal protein intake also recommended. His questions were answered and he was advised to call with any further questions or concerns. Discharge from the wound center. This note was generated with [employer] dictation software. It may contain incorrectwords, spelling, and punctuation that were not noted in checking the note beforesigning. 11/16/22 1308 <Electronically signed by Franklyn Sanchez MD> Cosigner Signature (if applicable): CC: ~ Signed [facility] Work Phone: 1(250) 971-611506-22-2023 Progress note Author Franklyn Sanchez [facility] November 02, 2022 1:44pm Note Date/Time November 02, 2022 11:1 1am [facility] [address] [place] [address] Progress Note - Wound Care 11/02/22 1107 MR#: [id number] Acct: [id number] Name: JAK TANNER Rep #:[id number] : 1955 67 From: Franklyn espinal MD PCP: Dr. Yajaira Heller Status:REG RC R Location: History of Present Illness Date of Service: 11/02/22 Chief Complaint: Bilateral lower extremity ulcers. History of Wound: Mr. Tanner is a 67 yo who was referred to the wound center due to bilateral lower extremity ulcer. Clinic history of lymphedema. He is currently homeless and has been living in his van. He states that over the recent months, he has been sitting a lot more is not as active as it should be. He also states that he has not been using his compression. [facility], he was started on antibiotics and has 1 more day of it. Tolerating antibiotic well. Initially had a lot of drainage from his ulcers but he states that this has improved. No known historyof diabetes. No chills, fever or feeling of unwell at this time. Progress of Wound: Tolerating Unna boot well. Improving. No new concerns at this time. Very minimal area left. Objective Data Objective Data Vital Signs: Vital Signs Temp Pulse Resp BP O2 Del Method 97.7 F L 91 16 165/94 H Room Air 11/02/22 09:21 11/02/22 09:21 11/02/22 09:21 11/02/22 09:21 11/02/22 09:21 Oxygen Delivery Method Room Air Weight: 340 lb Body Mass Index (BMI) 47.4 Charges/Coding Procedures Integumentary 111xxx-113xx: 20595 Magdalena subq tissue 20 sq cm/< (Superficial debridement done. ) Physical Exam Const alert, oriented x3 and no apparent distress General Appearance: cooperative and comfortable HEENT normocephalic, head/scalp atraumatic and hearing grossly normal bilaterally Eyes EOMs intact bilaterally Neck full ROM Resp normal respiratory effort Effort and Inspection: able to speak in complete sentences Extremity General Extremity: edema Skin Wounds: wounds noted Neuro oriented x3, CN's II-XII intact bilaterally and moves all extremities Psych mental status grossly normal, thought process normal, cooperative and affect normal Debridement Note Debridement Note Wound debrided: Right Heel Cluster Type of Debridement: Selective debridement Anesthesia Used: 5% Lidocaine Gel Depth: Down to and including healthy tissue and in the subcutaneous layer Percentage of wound debrided: 100 Instrument Used: 5mm curette Tissue Removed: Devitalized tissue Severity: Limited To Skin Breakdown Amount of bleeding with debridement: Mild Bleeding Controlled with: Pressure Patient tolerated procedure: Patient tolerated procedure well Post-Debridement Measurements and Additional Note: Post-Debridement Measurements/Treatment WC - Nurse 1 - General Ulcer Assessment Start: 10/12/22 08:59 Freq: Status: Active Protocol: WILLIAM Activity Type Activity Date Activity User E-sign Co-sign Detail Recorded Client Recorded Date Recorded By Document 10/12/22 08:59 [facility] [id number] 10/12/22 09:18 [facility] Document 10/16/22 08:51 DL [id number] 10/16/22 08:55 DL Document 10/19/22 09:22 [facility] [id number] 10/19/22 09:44 [facility] Document 10/24/22 13:03 AK [id number] 10/24/22 13:06 AK Document 10/26/22 09:32 AK [id number] 10/26/22 09:34 AK Document 11/02/22 09:21 [facility] [id number] 11/02/22 09:31 [facility] 10/12/22 10/16/22 10/19/22 08:59 08:51 09:22 WC - Today's Visit Information Type of service Follow-up Visit Nurse-only Follow-up Visit (Physician/DOOR AND ARRIVAL ATTENDANT Visit (Physician/DOOR AND ARRIVAL ATTENDANT ) ) Arrival Mode Ambulatory Ambulatory Ambulatory Transfer Assistance None None None Patient Identification Verified (Name & Yes Yes Yes ) Patient Requires Transmission-Based No No No Precautions Safety Precautions Height and Weight Body Mass Index (BMI) 47.4 47.4 47.4 BMI Classification Obese Obese Obese Vital Signs Temperature (97.8 F-99.1 F) 97.6 F L 973 F H 97.5 F L Temperature Source Temporal Temporal Temporal Pulse Rate (60-100) 94 91 85 Pulse Location Monitor Monitor Monitor Respiratory Rate (12-18) 16 20 H 18 Respiratory rate source Observation Observation Observation Oxygen Delivery Method Room Air Room Air Blood Pressure (90/60-120/80) 140/69 H 137/100 H 134/73 H Blood Pressure Mean (mm Hg) 92 112 93 Source Monitor Monitor Monitor Position Sitting Sitting Blood Pressure Location Right Arm Left Arm History Since Last Visit- (Skip if this is Patient's initial visit) Have you changed medications since your No No No last visit? Any new allergies or adverse reactions No No No Had a fall/change in ADL's that may No No No increase risk of falls Signs or symptoms of abuse and/or No No No neglect since last visit Have you been in the hospital since your No No No last visit? Has dressing in place as prescribed Yes Yes Yes Has compression in place as prescribed Yes N/A Yes Has offloadiing in place as prescribed N/A Yes Yes Experienced any changes in pain level or No No management Left Footwear Surgical Shoe Surgical Shoe Surgical Shoe with pressure with pressure with pressure relief insole relief insole relief insole Right Footwear Surgical Shoe Surgical Shoe Surgical Shoe with pressure with pressure with pressure relief insole relief insole relief insole Pain Scale: 0-10 Numeric Is Patient Pain Free? Yes Yes Yes 10/24/22 10/26/22 11/02/22 13:03 09:32 09:21 - Today's Visit Information Type of service Nurse-only Follow-up Visit Follow-up Visit Visit (Physician/DOOR AND ARRIVAL ATTENDANT (Physician/DOOR AND ARRIVAL ATTENDANT ) ) Arrival Mode Ambulatory Ambulatory Ambulatory Transfer Assistance None Patient Identification Verified (Name & Yes No Yes ) Patient Requires Transmission-Based No No No Precautions Safety Precautions NA Height and Weight Body Mass Index (BMI) 47.4 47.4 47.4 BMI Classification Obese Obese Obese Vital Signs Temperature (97.8 F-99.1 F) 97.1 F L 96.7 F L 97.7 F L Temperature Source Temporal Temporal Temporal Pulse Rate (60-100) 98 86 91 Pulse Location Monitor Monitor Monitor Respiratory Rate (12-18) 16 Respiratory rate source Observation Oxygen Delivery Method Room Air Blood Pressure (90/60-120/80) 137/81 H 145/66 H 165/94 H Blood Pressure Mean (mm Hg) 99 92 117 Source Monitor Monitor Monitor Position Sitting Blood Pressure Location Left Forearm History Since Last Visit- (Skip if this is Patient's initial visit) Have you changed medications since your No No No last visit? Any new allergies or adverse reactions No No No Had a fall/change in ADL's that may No No No increase risk of falls Signs or symptoms of abuse and/or No No No neglect since last visit Have you been in the hospital since your No No No last visit? Has dressing in place as prescribed Yes Yes Yes Has compression in place as prescribed Yes Yes Yes Has offloadiing in place as prescribed N/A N/A N/A Experienced any changes in pain level or No No No management Left Footwear Regular Shoe Surgical Shoe Surgical Shoe with pressure with pressure relief insole relief insole Right Footwear Regular Shoe Surgical Shoe Surgical Shoe with pressure with pressure relief insole relief insole Pain Scale: 0-10 Numeric Is Patient Pain Free? Yes Yes Yes WC - Nurse 1 - General Ulcer Measurement Start: 10/12/22 08:59 Freq: Status: Active Protocol: Activity Type Activity Date Activity User E-sign Co-sign Detail Recorded Client Recorded Date Recorded By Document 10/12/22 08:59 [facility] [id number] 10/12/22 09:18 BMF Document 10/16/22 08:51 DL [id number] 10/16/22 08:55 DL Document 10/19/22 09:22 BM [id number] 10/19/22 09:44 BMF Document 10/26/22 09:32 AK [id number] 10/26/22 09:34 AK Document 11/02/22 09:21 BM [id number] 11/02/22 09:31 [facility] 10/12/22 10/16/22 10/19/22 08:59 08:51 09:22 Wound Center Nurse 1 #8- r 2nd toe -Combined with other wound No No -Current Size (cm) - Length 0.5 0.1 -Current Size (cm) - Width 0.5 0.1 -Current Size (cm) - Depth 0.2 0.1 -Total Square Cm 0.25 0.01 -Date of Last Picture (Recall this 10/12/22 10/19/22 field) -Photo Taken Yes Yes -Epithelialization None Present Large 67-100% -Tunneling No -Undermining/Tunneling No -Circular Undermining No -Exudate Amt Small Small -Exudate Type Serosanguineous Serosanguineous -Wound Margin Distinct, Distinct, Outline Outline Attached Attached -Granulation Amt Small (1-33%) -Granulation Quality Red -Slough/Fibrin Yes -Necrosis Amt Large (67-100%) -Necrotic Tissue Type Adherent Slough -Texture (Marva-wound Skin Appearance) Assessed, Localized Edema Assessed, Scarring ,Scarring Scarring -Moisture (Marva-wound Skin Appearance) Assessed Dry/Scaly Assessed,Dry/ Scaly -Color (Marva-wound Skin Appearance) Assessed, Hemosiderin Assessed Erythema Staining -Temperature (Marva-wound Skin No Abnormality No Abnormality No Abnormality Appearance) (Pt Warm) (Pt Warm) (Pt Warm) -Tenderness on Palpation (Marva-wound No No Skin Appearance) -Ulcer Cleansing Soap and Water Soap and Water Soap and Water -Foul Odor after Cleansing No No No -Anesthetic Used 5% Lidocaine Gel #7 R HEEL -Combined with other wound No -Current Size (cm) - Length 1.8 -Current Size (cm) - Width 2 -Current Size (cm) - Depth 0.1 -Total Square Cm 3.6 -Date of Last Picture (Recall this 10/19/22 field) -Photo Taken Yes -Epithelialization None Present -Tunneling No -Undermining/Tunneling No -Circular Undermining No -Change in Wound Grade/Stage -Exudate Amt Small -Exudate Type Serosanguineous -Wound Margin Distinct, Outline Attached -Granulation Amt Large (67-100%) -Granulation Quality Red -Slough/Fibrin Yes -Necrosis Amt Small (1-33%) -Necrotic Tissue Type Adherent Slough -Structure Exposed -Texture (Marva-wound Skin Appearance) Assessed, Scarring -Moisture (Marva-wound Skin Appearance) No Abnormality, Dry/Scaly -Color (Marva-wound Skin Appearance) Assessed -Temperature (Marva-wound Skin No Abnormality Appearance) (Pt Warm) -Tenderness on Palpation (Marva-wound No Skin Appearance) -Ulcer Cleansing Soap and Water -Foul Odor after Cleansing No -Anesthetic Used 5% Lidocaine Gel #5- L LAT POST LEG -Combined with other wound No -Current Size (cm) - Length 0.1 -Current Size (cm) - Width 0.1 -Current Size (cm) - Depth 0.1 -Total Square Cm 0.01 -Date of Last Picture (Recall this 10/12/22 field) -Photo Taken Yes -Epithelialization Large 67-100% -Tunneling No -Undermining/Tunneling No -Circular Undermining No -Exudate Amt None Present -Texture (Marva-wound Skin Appearance) Assessed, Scarring -Moisture (Marva-wound Skin Appearance) Assessed,Dry/ Scaly -Color (Marva-wound Skin Appearance) Assessed -Ulcer Cleansing Soap and Water -Foul Odor after Cleansing No #4- L POST LE -Combined with other wound No No -Current Size (cm) - Length 0.2 3.5 -Current Size (cm) - Width 0.2 2.3 -Current Size (cm) - Depth 0.1 0.1 -Total Square Cm 0.04 8.05 -Date of Last Picture (Recall this 10/12/22 10/19/22 field) -Photo Taken Yes Yes -Epithelialization Medium 34-66% Small 1-33% -Tunneling No No -Undermining/Tunneling No No -Circular Undermining No No -Exudate Amt Small Small -Exudate Type Serosanguineous Serosanguineous -Wound Margin Distinct, Flat & Intact Outline Attached -Granulation Amt Large (67-100%) Small (1-33%) -Granulation Quality Red Red -Slough/Fibrin Yes Yes -Necrosis Amt Small (1-33%) Large (67-100%) -Necrotic Tissue Type Adherent Slough Adherent Slough -Texture (Marva-wound Skin Appearance) Assessed, Localized Edema Assessed, Scarring ,Scarring Scarring -Moisture (Marva-wound Skin Appearance) Assessed,Dry/ Dry/Scaly Assessed,Dry/ Scaly Scaly -Color (Marva-wound Skin Appearance) Assessed Hemosiderin Assessed Staining -Temperature (Marva-wound Skin No Abnormality No Abnormality No Abnormality Appearance) (Pt Warm) (Pt Warm) (Pt Warm) -Tenderness on Palpation (Marva-wound No No Skin Appearance) -Ulcer Cleansing Soap and Water Soap and Water Soap and Water -Foul Odor after Cleansing No No No -Anesthetic Used 5% Lidocaine 5% Lidocaine Gel Gel #3- L LAT ANKLE/FOOT -Combined with other wound No -Current Size (cm) - Length 0.1 -Current Size (cm) - Width 0.1 -Current Size (cm) - Depth 0.1 -Total Square Cm 0.01 -Date of Last Picture (Recall this 10/12/22 field) -Photo Taken Yes -Epithelialization Large 67-100% -Texture (Marva-wound Skin Appearance) Assessed -Moisture (Marva-wound Skin Appearance) Assessed -Color (Marva-wound Skin Appearance) Assessed -Temperature (Marva-wound Skin No Abnormality Appearance) (Pt Warm) -Tenderness on Palpation (Marva-wound No Skin Appearance) -Ulcer Cleansing Soap and Water -Foul Odor after Cleansing No #6- R LAT ANKLE cluster -Combined with other wound No No -Current Size (cm) - Length 3 0.5 -Current Size (cm) - Width 7 0.4 -Current Size (cm) - Depth 0.1 0.2 -Total Square Cm 21 0.20 -Date of Last Picture (Recall this 10/12/22 10/19/22 field) -Photo Taken Yes Yes -Epithelialization Small 1-33% Medium 34-66% -Tunneling No No -Undermining/Tunneling No No -Circular Undermining No No -Exudate Amt Medium Small Small -Exudate Type Serosanguineous Serosanguineous Serosanguineous -Wound Margin Distinct, Distinct, Distinct, Outline Outline Outline Attached Attached Attached -Granulation Amt Medium (34-66%) Large (67-100%) -Granulation Quality Red -Slough/Fibrin Yes Yes -Necrosis Amt Medium (34-66%) Small (1-33%) -Necrotic Tissue Type Adherent Slough Adherent Slough -Texture (Marva-wound Skin Appearance) Assessed, Localized Edema Assessed, Scarring ,Scarring Scarring -Moisture (Marva-wound Skin Appearance) Assessed Dry/Scaly Assessed -Color (Marva-wound Skin Appearance) Assessed, Hemosiderin Assessed Hemosiderin Staining Staining -Temperature (Marva-wound Skin No Abnormality No Abnormality No Abnormality Appearance) (Pt Warm) (Pt Warm) (Pt Warm) -Tenderness on Palpation (Marva-wound No No Skin Appearance) -Ulcer Cleansing Soap and Water Soap and Water Soap and Water -Foul Odor after Cleansing No No No -Anesthetic Used 5% Lidocaine 5% Lidocaine Gel Gel Lower Limb Edema Present Yes Right Calf (cm) 52.5 50 Point of measurement (cm from the medial instep) Right Ankle (cm) 36.1 33.7 Point of Measurement (cm from the medial instep) Right Foot (cm) 52.9 Left Calf (cm) 36.7 51.5 Left Ankle (cm) 35.5 10/26/22 11/02/22 09:32 09:21 Wound Center Nurse 1 #8- r 2nd toe -Combined with other wound No -Current Size (cm) - Length -Current Size (cm) - Width -Current Size (cm) - Depth -Total Square Cm -Date of Last Picture (Recall this field) -Photo Taken -Epithelialization -Tunneling -Undermining/Tunneling -Circular Undermining -Exudate Amt -Exudate Type -Wound Margin -Granulation Amt -Granulation Quality -Slough/Fibrin -Necrosis Amt -Necrotic Tissue Type -Texture (Marva-wound Skin Appearance) -Moisture (Marva-wound Skin Appearance) -Color (Marva-wound Skin Appearance) -Temperature (Marva-wound Skin Appearance) -Tenderness on Palpation (Marva-wound Skin Appearance) -Ulcer Cleansing -Foul Odor after Cleansing -Anesthetic Used #7 R HEEL -Combined with other wound No -Current Size (cm) - Length 0.4 -Current Size (cm) - Width 0.4 -Current Size (cm) - Depth 0.1 -Total Square Cm 0.16 -Date of Last Picture (Recall this field) -Photo Taken No -Epithelialization -Tunneling No -Undermining/Tunneling No -Circular Undermining No -Change in Wound Grade/Stage No -Exudate Amt Medium -Exudate Type Serosanguineous -Wound Margin Distinct, Outline Attached -Granulation Amt Large (67-100%) -Granulation Quality Red -Slough/Fibrin Yes -Necrosis Amt Small (1-33%) -Necrotic Tissue Type Adherent Slough -Structure Exposed N/A -Texture (Marva-wound Skin Appearance) Assessed,Callus ,Excoriation -Moisture (Marva-wound Skin Appearance) Assessed,Dry/ Scaly -Color (Marva-wound Skin Appearance) No Abnormality, Assessed -Temperature (Marva-wound Skin No Abnormality Appearance) (Pt Warm) -Tenderness on Palpation (Marva-wound Yes Skin Appearance) -Ulcer Cleansing Soap and Water -Foul Odor after Cleansing No -Anesthetic Used 5% Lidocaine Gel #5- L LAT POST LEG -Combined with other wound -Current Size (cm) - Length -Current Size (cm) - Width -Current Size (cm) - Depth -Total Square Cm -Date of Last Picture (Recall this field) -Photo Taken -Epithelialization -Tunneling -Undermining/Tunneling -Circular Undermining -Exudate Amt -Texture (Marva-wound Skin Appearance) -Moisture (Marva-wound Skin Appearance) -Color (Marva-wound Skin Appearance) -Ulcer Cleansing -Foul Odor after Cleansing #4- L POST LE -Combined with other wound -Current Size (cm) - Length -Current Size (cm) - Width -Current Size (cm) - Depth -Total Square Cm -Date of Last Picture (Recall this field) -Photo Taken -Epithelialization -Tunneling -Undermining/Tunneling -Circular Undermining -Exudate Amt -Exudate Type -Wound Margin -Granulation Amt -Granulation Quality -Slough/Fibrin -Necrosis Amt -Necrotic Tissue Type -Texture (Marva-wound Skin Appearance) -Moisture (Marva-wound Skin Appearance) -Color (Marva-wound Skin Appearance) -Temperature (Marva-wound Skin Appearance) -Tenderness on Palpation (Marva-wound Skin Appearance) -Ulcer Cleansing -Foul Odor after Cleansing -Anesthetic Used #3- L LAT ANKLE/FOOT -Combined with other wound -Current Size (cm) - Length -Current Size (cm) - Width -Current Size (cm) - Depth -Total Square Cm -Date of Last Picture (Recall this field) -Photo Taken -Epithelialization -Texture (Marva-wound Skin Appearance) -Moisture (Marva-wound Skin Appearance) -Color (Marva-wound Skin Appearance) -Temperature (Marva-wound Skin Appearance) -Tenderness on Palpation (Marva-wound Skin Appearance) -Ulcer Cleansing -Foul Odor after Cleansing #6- R LAT ANKLE cluster -Combined with other wound No -Current Size (cm) - Length 0.1 -Current Size (cm) - Width 0.1 -Current Size (cm) - Depth 0.1 -Total Square Cm 0.01 -Date of Last Picture (Recall this 11/02/22 field) -Photo Taken Yes -Epithelialization Large 67-100% -Tunneling No -Undermining/Tunneling No -Circular Undermining No -Exudate Amt None Present -Exudate Type -Wound Margin -Granulation Amt -Granulation Quality -Slough/Fibrin -Necrosis Amt -Necrotic Tissue Type -Texture (Marva-wound Skin Appearance) Assessed, Scarring -Moisture (Marva-wound Skin Appearance) Assessed,Dry/ Scaly -Color (Marva-wound Skin Appearance) Assessed -Temperature (Marva-wound Skin No Abnormality Appearance) (Pt Warm) -Tenderness on Palpation (Marva-wound No Skin Appearance) -Ulcer Cleansing Soap and Water -Foul Odor after Cleansing No -Anesthetic Used 5% Lidocaine Gel Lower Limb Edema Present Yes Right Calf (cm) 51 Point of measurement (cm from the medial 53 instep) Right Ankle (cm) 34.1 Point of Measurement (cm from the medial 36 instep) Right Foot (cm) Left Calf (cm) 55 54 Left Ankle (cm) 36 36 WC - Nurse 2 - General Ulcer CM Notes Start: 10/12/22 08:59 Freq: Status: Active Protocol: Activity Type Activity Date Activity User E-sign Co-sign Detail Recorded Client Recorded Date Recorded By Document 10/12/22 09:31 MW [id number] 10/12/22 09:48 MW Document 10/19/22 09:51 MW [id number] 10/19/22 10:21 MW Document 10/26/22 09:42 MW Desktop 10/26/22 09:50 MW Document 11/02/22 09:56 MW [id number] 11/02/22 10:05 MW 10/12/22 10/19/22 10/26/22 09:31 09:51 09:42 Wound Center Nurse 2 #8- r 2nd toe -Time 09:32 09:52 09:49 -Correct Patient Yes Yes Yes -Correct Side, Site, Position Yes Yes Yes -Correct Procedure Yes Yes Yes -Procedure Performed Yes Yes No -Type of Procedure Debridement Debridement -Clinical Debridement Subcutaneous Subcutaneous -Tissue Removed Subcutaneous Subcutaneous -Post Debridement (cm) - Length 0.8 0.4 0 -Post Debridement (cm) - Width 0.2 1.0 0 -Post Debridement (cm) - Depth 0.1 0.1 0 -Total Square (Post) (cm) 0.16 0.40 0 -Area of Debridement (cm) - Length 0.8 0.4 -Area of Debridement (cm) - Width 0.2 1.0 -Total Square (Area) (cm) 0.16 0.40 -Tunneling No No -Undermining/Tunneling No -Circular Undermining No No -Wound/Ulcer Outcome Not Healed Not Healed Healed- Epithelialized -Ulcer Cleansing Rinsed/ Rinsed/ Irrigated with Irrigated with Saline Saline -Foul Odor after Cleansing No No -Bioengineered Tissue No No -Bleeding Controlled with Pressure Pressure -Treatment Response Procedure Procedure Tolerated Well Tolerated Well -Offloading No No -Debridement - Subq, 1st 20sq cm Yes No -Debridement, SubQ, ea addt'l 20sq cm 3 or part thereof #7 R HEEL -Time 09:53 09:46 -Correct Patient Yes Yes -Correct Side, Site, Position Yes Yes -Correct Procedure Yes Yes -Procedure Performed No No -Post Debridement (cm) - Length 0 0 -Post Debridement (cm) - Width 0 0 -Post Debridement (cm) - Depth 0 -Total Square (Post) (cm) 0 0 -Area of Debridement (cm) - Length 0 -Area of Debridement (cm) - Width 1.0 -Total Square (Area) (cm) 0 -Tunneling No No -Undermining/Tunneling No No -Circular Undermining No -Wound/Ulcer Outcome Healed- Healed- Epithelialized Epithelialized #5- L LAT POST LEG -Time 09:33 -Correct Patient Yes -Correct Side, Site, Position Yes -Correct Procedure Yes -Procedure Performed No -Post Debridement (cm) - Length 0 -Post Debridement (cm) - Width 0 -Total Square (Post) (cm) 0 -Tunneling No -Undermining/Tunneling No -Circular Undermining No -Wound/Ulcer Outcome Healed- Epithelialized #4- L POST LE -Time 09:34 09:54 09:49 -Correct Patient Yes Yes Yes -Correct Side, Site, Position Yes Yes Yes -Correct Procedure Yes Yes Yes -Procedure Performed Yes No No -Type of Procedure Debridement Debridement -Clinical Debridement Subcutaneous Subcutaneous -Tissue Removed Subcutaneous Subcutaneous -Post Debridement (cm) - Length 5.5 0.1 0 -Post Debridement (cm) - Width 4.0 0.1 0 -Post Debridement (cm) - Depth 0.1 0.1 0 -Total Square (Post) (cm) 22.00 0.01 0 -Area of Debridement (cm) - Length 5.5 0.1 -Area of Debridement (cm) - Width 4.0 0.1 -Total Square (Area) (cm) 22.00 0.01 -Tunneling No No -Undermining/Tunneling No No -Circular Undermining No No -Wound/Ulcer Outcome Not Healed Not Healed Healed- Epithelialized -Ulcer Cleansing Rinsed/ Rinsed/ Irrigated with Irrigated with Saline Saline -Foul Odor after Cleansing No No -Bioengineered Tissue No No -Bleeding Controlled with Pressure Pressure -Treatment Response Procedure Procedure Tolerated Well Tolerated Well -Offloading No No -Debridement - Subq, 1st 20sq cm No No #3- L LAT ANKLE/FOOT -Time 09:35 -Correct Patient Yes -Correct Side, Site, Position Yes -Correct Procedure Yes -Procedure Performed No -Post Debridement (cm) - Length 0 -Post Debridement (cm) - Width 0 -Post Debridement (cm) - Depth 0 -Total Square (Post) (cm) 0 -Tunneling No -Undermining/Tunneling No -Circular Undermining No -Wound/Ulcer Outcome Healed- Epithelialized -Bleeding Controlled with Pressure,Silver Nitrate #6- R LAT ANKLE cluster -Time 09:33 09:53 09:48 -Correct Patient Yes Yes Yes -Correct Side, Site, Position Yes Yes Yes -Correct Procedure Yes Yes Yes -Procedure Performed Yes Yes Yes -Type of Procedure Debridement Debridement Debridement -Clinical Debridement Subcutaneous Subcutaneous Subcutaneous -Tissue Removed Subcutaneous Subcutaneous Subcutaneous -Post Debridement (cm) - Length 3.5 2.8 0.8 -Post Debridement (cm) - Width 8.0 7.0 1.0 -Post Debridement (cm) - Depth 0.1 0.1 0.1 -Total Square (Post) (cm) 28.00 19.60 0.80 -Area of Debridement (cm) - Length 3.5 2.8 0.8 -Area of Debridement (cm) - Width 8.0 7.0 1.0 -Total Square (Area) (cm) 28.00 19.60 0.80 -Tunneling No No No -Undermining/Tunneling No No No -Circular Undermining No No No -Wound/Ulcer Outcome Not Healed Not Healed Not Healed -Ulcer Cleansing Rinsed/ Rinsed/ Rinsed/ Irrigated with Irrigated with Irrigated with Saline Saline Saline -Foul Odor after Cleansing No No No -Bioengineered Tissue No No No -Bleeding Controlled with Pressure,Silver Pressure Pressure Nitrate -Treatment Response Procedure Procedure Procedure Tolerated Well Tolerated Well Tolerated Well -Offloading No No No -Debridement - Subq, 1st 20sq cm No Yes Yes Pain Scale: 0-10 Numeric Is Patient Pain Free? Yes Yes Yes 11/02/22 09:56 Wound Center Nurse 2 #8- r 2nd toe -Time -Correct Patient -Correct Side, Site, Position -Correct Procedure -Procedure Performed -Type of Procedure -Clinical Debridement -Tissue Removed -Post Debridement (cm) - Length -Post Debridement (cm) - Width -Post Debridement (cm) - Depth -Total Square (Post) (cm) -Area of Debridement (cm) - Length -Area of Debridement (cm) - Width -Total Square (Area) (cm) -Tunneling -Undermining/Tunneling -Circular Undermining -Wound/Ulcer Outcome -Ulcer Cleansing -Foul Odor after Cleansing -Bioengineered Tissue -Bleeding Controlled with -Treatment Response -Offloading -Debridement - Subq, 1st 20sq cm -Debridement, SubQ, ea addt'l 20sq cm or part thereof #7 R HEEL -Time -Correct Patient -Correct Side, Site, Position -Correct Procedure -Procedure Performed -Post Debridement (cm) - Length -Post Debridement (cm) - Width -Post Debridement (cm) - Depth -Total Square (Post) (cm) -Area of Debridement (cm) - Length -Area of Debridement (cm) - Width -Total Square (Area) (cm) -Tunneling -Undermining/Tunneling -Circular Undermining -Wound/Ulcer Outcome #5- L LAT POST LEG -Time -Correct Patient -Correct Side, Site, Position -Correct Procedure -Procedure Performed -Post Debridement (cm) - Length -Post Debridement (cm) - Width -Total Square (Post) (cm) -Tunneling -Undermining/Tunneling -Circular Undermining -Wound/Ulcer Outcome #4- L POST LE -Time -Correct Patient -Correct Side, Site, Position -Correct Procedure -Procedure Performed -Type of Procedure -Clinical Debridement -Tissue Removed -Post Debridement (cm) - Length -Post Debridement (cm) - Width -Post Debridement (cm) - Depth -Total Square (Post) (cm) -Area of Debridement (cm) - Length -Area of Debridement (cm) - Width -Total Square (Area) (cm) -Tunneling -Undermining/Tunneling -Circular Undermining -Wound/Ulcer Outcome -Ulcer Cleansing -Foul Odor after Cleansing -Bioengineered Tissue -Bleeding Controlled with -Treatment Response -Offloading -Debridement - Subq, 1st 20sq cm #3- L LAT ANKLE/FOOT -Time -Correct Patient -Correct Side, Site, Position -Correct Procedure -Procedure Performed -Post Debridement (cm) - Length -Post Debridement (cm) - Width -Post Debridement (cm) - Depth -Total Square (Post) (cm) -Tunneling -Undermining/Tunneling -Circular Undermining -Wound/Ulcer Outcome -Bleeding Controlled with #6- R LAT ANKLE cluster -Time 09:56 -Correct Patient Yes -Correct Side, Site, Position Yes -Correct Procedure Yes -Procedure Performed Yes -Type of Procedure Debridement -Clinical Debridement Subcutaneous -Tissue Removed Subcutaneous -Post Debridement (cm) - Length 0.1 -Post Debridement (cm) - Width 0.1 -Post Debridement (cm) - Depth 0.1 -Total Square (Post) (cm) 0.01 -Area of Debridement (cm) - Length 0.1 -Area of Debridement (cm) - Width 0.1 -Total Square (Area) (cm) 0.01 -Tunneling No -Undermining/Tunneling No -Circular Undermining No -Wound/Ulcer Outcome Not Healed -Ulcer Cleansing Rinsed/ Irrigated with Saline -Foul Odor after Cleansing No -Bioengineered Tissue No -Bleeding Controlled with Pressure -Treatment Response Procedure Tolerated Well -Offloading No -Debridement - Subq, 1st 20sq cm Yes Pain Scale: 0-10 Numeric Is Patient Pain Free? Yes WC - Nurse 3 - General Ulcer D/C NN Start: 10/12/22 08:59 Freq: Status: Active Protocol: Activity Type Activity Date Activity User E-sign Co-sign Detail Recorded Client Recorded Date Recorded By Document 10/12/22 10:13 [facility] [id number] 10/12/22 10:15 BM Document 10/16/22 08:51 DL [id number] 10/16/22 08:55 DL Document 10/19/22 10:28 [facility] [id number] 10/19/22 10:29 [facility] Document 10/24/22 13:03 AK [id number] 10/24/22 13:06 AK Document 10/24/22 13:06 AK [id number] 10/24/22 13:07 AK Document 11/02/22 10:39 DL [id number] 11/02/22 10:39 DL 10/12/22 10/16/22 10/19/22 10:13 08:51 10:28 Wound Care Center Nurse 3 #8- r 2nd toe -Ulcer Cleansing Soap and Water Soap and Water Soap and Water -Foul Odor after Cleansing No No -Negative Pressure Wound Therapy -Primary Dressing Applied Aquacel Extra Aquacel AG 4x4 Aquacel Extra -Other Dressing PER DL FRAUD MANAGER -Primary Dressing Covered/Secured with Dry Gauze, Dry Gauze, Secured with Secured with Tape Tape -Other Covering UNNA BOOT -Aquacel Extra 0 1 -Aquacel AG 4x4 1 #4- L POST LE -Ulcer Cleansing Rinsed/ Soap and Water Soap and Water Irrigated with Saline -Foul Odor after Cleansing No No No -Negative Pressure Wound Therapy -Primary Dressing Applied Aquacel Extra Aquacel Extra -Other Dressing unna aqaucel Ag UNNA BOOT; PER DL FRAUD MANAGER -Primary Dressing Covered/Secured with Dry Gauze & Roll Gauze, Secured with Tape -Aquacel Extra 0 0 #6- R LAT ANKLE cluster -Ulcer Cleansing Rinsed/ Soap and Water Soap and Water Irrigated with Saline -Foul Odor after Cleansing No No No -Primary Dressing Applied Aquacel Extra Aquacel Extra -Other Dressing unna aqaucel Ag UNNA BOOT; PER DL FRAUD MANAGER -Primary Dressing Covered/Secured with Dry Gauze, Secured with Tape -Aquacel Extra 1 0 ble -Lotion applied to leg before compression wrap -Multi-Layered Wrap Application Unna Boot - Multi-Layer Unna Boot - Bilateral ($) Comp - Bilat ($ Bilateral ($) ) Treatment Response Procedure Procedure Not Procedure Tolerated Well Tolerated Well Tolerated Well Vital Signs Temperature (97.8 F-99.1 F) 973 F H Temperature Source Temporal Pulse Rate (60-100) 91 Pulse Location Monitor Respiratory Rate (12-18) 20 H Respiratory rate source Observation Blood Pressure (90/60-120/80) 137/100 H Blood Pressure Mean (mm Hg) 112 Source Monitor Pain Scale: 0-10 Numeric Is Patient Pain Free? Yes Yes Yes WC - Visit Discharge Discharge Condition Stable Stable Stable Ambulatory Status Ambulatory Ambulatory Ambulatory Transportation Private Auto Private Auto Private Auto Medication Reconcilliation completed & provided to patient/care provider Clinical Summary of Care Provided Notes: 10/24/22 10/24/22 11/02/22 13:03 13:06 10:39 Wound Care Center Nurse 3 #8- r 2nd toe -Ulcer Cleansing Soap and Water -Foul Odor after Cleansing No -Negative Pressure Wound Therapy N/A -Primary Dressing Applied Aquacel Extra -Other Dressing -Primary Dressing Covered/Secured with -Other Covering -Aquacel Extra 1 -Aquacel AG 4x4 #4- L POST LE -Ulcer Cleansing Soap and Water -Foul Odor after Cleansing No -Negative Pressure Wound Therapy N/A -Primary Dressing Applied -Other Dressing aquacel extra -Primary Dressing Covered/Secured with -Aquacel Extra #6- R LAT ANKLE cluster -Ulcer Cleansing Soap and Water Soap and Water -Foul Odor after Cleansing -Primary Dressing Applied -Other Dressing aquacel extra -Primary Dressing Covered/Secured with -Aquacel Extra ble -Lotion applied to leg before No compression wrap -Multi-Layered Wrap Application Unna Boot - Unna Boot - Bilateral ($) Bilateral ($) Treatment Response Procedure Tolerated Well Vital Signs Temperature (97.8 F-99.1 F) 97.1 F L Temperature Source Temporal Pulse Rate (60-100) 98 Pulse Location Monitor Respiratory Rate (12-18) Respiratory rate source Blood Pressure (90/60-120/80) 137/81 H Blood Pressure Mean (mm Hg) 99 Source Monitor Pain Scale: 0-10 Numeric Is Patient Pain Free? Yes Yes Yes WC - Visit Discharge Discharge Condition Stable Stable Ambulatory Status Ambulatory Transportation Private Auto Private Auto Medication Reconcilliation completed & Yes provided to patient/care provider Clinical Summary of Care Provided Yes Notes: shanique applied wraps Assessment/Plan Assessment/Plan (1) Ulcer of left lower extremity with fat layer exposed: CODE(S): L97.922 - Non-pressure 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 layer exposed (2) Ulcer of right lower extremity with fat layer exposed: CODE(S): L97.912 - Non-pressure chronic ulcer of unspecified part of rightlower leg with fat layer exposed (3) Lymphedema: CODE(S): I89.0 - Lymphedema, not elsewhere classified (4) Homeless single person: CODE(S): Z59.0 - Homelessness PLAN: Plan Debridement done as documented above, procedure was well-tolerated. Continues to show good improvement. Left Lower Extremity stays healed. Right with minimal area left. Continue Unna boot to both lower extremities. Leave in place x 1 week. Leg elevation, exercise as tolerated discussed, he voiced understanding. Optimal protein intake also recommended. His questions were answered and he wasadvised to call with any further questions or concerns. Follow-up for a nurse visit in 1 week and with me in 2 weeks. This note was generated with [employer] (powering [employer])ation software. It may contain incorrectwords, spelling, and punctuation that were not noted in checking the note beforesigning. 11/02/22 1344 <Electronically signed by Franklyn Sanchez MD> Cosigner Signature (if applicable): CC: ~ Signed [facility] Work Phone: [phone] Progress note Author Franklyn Sanchez [facility] October 26, 2022 12:58pm Note Date/Time October 26, 2022 9:57 am [facility] [address] [place] [address] Progress Note - Wound Care 10/26/22 0956 MR#: [id number] Acct: [id number] Name: JAK TANNER Rep #:[id number] : 1955 67 From: Franklyn espinal MD PCP: Dr. Yajaira Heller Status:REG RC R Location: History of Present Illness Date of Service: 10/26/22 Chief Complaint: Bilateral lower extremity ulcers. History of Wound: Mr. Tanner is a 67 yo who was referred to the wound center due to bilateral lower extremity ulcer. Clinic history of lymphedema. He is currently homeless and has been living in his van. He states that over the recent months, he has been sitting a lot more is not as active as it should be. He also states that he has not been using his compression. [facility], he was started on antibiotics and has 1 more day of it. Tolerating antibiotic well. Initially had a lot of drainage from his ulcers but he states that this has improved. No known historyof diabetes. No chills, fever or feeling of unwell at this time. Progress of Wound: Tolerating Unna boot well. Improving. No new concerns at this time. Objective Data Objective Data Vital Signs: Vital Signs Temp Pulse Resp BP O2 Del Method 96.7 F L 86 18 145/66 H Room Air 10/26/22 09:32 10/26/22 09:32 10/19/22 09:22 10/26/22 09:32 10/19/22 09:22 Oxygen Delivery Method Room Air Weight: 340 lb Body Mass Index (BMI) 47.4 Charges/Coding Procedures Integumentary 111xxx-113xx: 65065 Magdalena subq tissue 20 sq cm/< Physical Exam Const alert, oriented x3 and no apparent distress General Appearance: cooperative and comfortable HEENT normocephalic, head/scalp atraumatic and hearing grossly normal bilaterally Eyes EOMs intact bilaterally Neck full ROM Resp normal respiratory effort Effort and Inspection: able to speak in complete sentences Extremity General Extremity: edema Skin Wounds: wounds noted Neuro oriented x3, CN's II-XII intact bilaterally and moves all extremities Psych mental status grossly normal, thought process normal, cooperative and affect normal Debridement Note Debridement Note Wound debrided: Right Heel Cluster Type of Debridement: Excisional debridement Anesthesia Used: 5% Lidocaine Gel Depth: Down to and including healthy tissue and in the subcutaneous layer Percentage of wound debrided: 100 Instrument Used: 5mm curette Tissue Removed: Slough and devitalized tissue Severity: Fat Layer Exposed Amount of bleeding with debridement: Mild Bleeding Controlled with: Pressure Patient tolerated procedure: Patient tolerated procedure well Post-Debridement Measurements and Additional Note: Post-Debridement Measurements/Treatment - Nurse 1 - General Ulcer Assessment Start: 10/12/22 08:59 Freq: Status: Active Protocol: [email or web address] Activity Type Activity Date Activity User E-sign Co-sign Detail Recorded Client Recorded Date Recorded By Document 10/12/22 08:59 [facility] [id number] 10/12/22 09:18 BMF Document 10/16/22 08:51 DL [id number] 10/16/22 08:55 DL Document 10/19/22 09:22 BM [id number] 10/19/22 09:44 BMF Document 10/24/22 13:03 AK [id number] 10/24/22 13:06 AK Document 10/26/22 09:32 AK [id number] 10/26/22 09:34 AK 10/12/22 10/16/22 10/19/22 08:59 08:51 09:22 - Today's Visit Information Type of service Follow-up Visit Nurse-only Follow-up Visit (Physician/DOOR AND ARRIVAL ATTENDANT Visit (Physician/DOOR AND ARRIVAL ATTENDANT ) ) Arrival Mode Ambulatory Ambulatory Ambulatory Transfer Assistance None None None Patient Identification Verified (Name & Yes Yes Yes ) Patient Requires Transmission-Based No No No Precautions Safety Precautions Height and Weight Body Mass Index (BMI) 47.4 47.4 47.4 BMI Classification Obese Obese Obese Vital Signs Temperature (97.8 F-99.1 F) 97.6 F L 973 F H 97.5 F L Temperature Source Temporal Temporal Temporal Pulse Rate (60-100) 94 91 85 Pulse Location Monitor Monitor Monitor Respiratory Rate (12-18) 16 20 H 18 Respiratory rate source Observation Observation Observation Oxygen Delivery Method Room Air Room Air Blood Pressure (90/60-120/80) 140/69 H 137/100 H 134/73 H Blood Pressure Mean (mm Hg) 92 112 93 Source Monitor Monitor Monitor Position Sitting Sitting Blood Pressure Location Right Arm Left Arm History Since Last Visit- (Skip if this is Patient's initial visit) Have you changed medications since your No No No last visit? Any new allergies or adverse reactions No No No Had a fall/change in ADL's that may No No No increase risk of falls Signs or symptoms of abuse and/or No No No neglect since last visit Have you been in the hospital since your No No No last visit? Has dressing in place as prescribed Yes Yes Yes Has compression in place as prescribed Yes N/A Yes Has offloadiing in place as prescribed N/A Yes Yes Experienced any changes in pain level or No No management Left Footwear Surgical Shoe Surgical Shoe Surgical Shoe with pressure with pressure with pressure relief insole relief insole relief insole Right Footwear Surgical Shoe Surgical Shoe Surgical Shoe with pressure with pressure with pressure relief insole relief insole relief insole Pain Scale: 0-10 Numeric Is Patient Pain Free? Yes Yes Yes 10/24/22 10/26/22 13:03 09:32 WC - Today's Visit Information Type of service Nurse-only Follow-up Visit Visit (Physician/DOOR AND ARRIVAL ATTENDANT ) Arrival Mode Ambulatory Ambulatory Transfer Assistance Patient Identification Verified (Name & Yes No ) Patient Requires Transmission-Based No No Precautions Safety Precautions NA Height and Weight Body Mass Index (BMI) 47.4 47.4 BMI Classification Obese Obese Vital Signs Temperature (97.8 F-99.1 F) 97.1 F L 96.7 F L Temperature Source Temporal Temporal Pulse Rate (60-100) 98 86 Pulse Location Monitor Monitor Respiratory Rate (12-18) Respiratory rate source Oxygen Delivery Method Blood Pressure (90/60-120/80) 137/81 H 145/66 H Blood Pressure Mean (mm Hg) 99 92 Source Monitor Monitor Position Blood Pressure Location History Since Last Visit- (Skip if this is Patient's initial visit) Have you changed medications since your No No last visit? Any new allergies or adverse reactions No No Had a fall/change in ADL's that may No No increase risk of falls Signs or symptoms of abuse and/or No No neglect since last visit Have you been in the hospital since your No No last visit? Has dressing in place as prescribed Yes Yes Has compression in place as prescribed Yes Yes Has offloadiing in place as prescribed N/A N/A Experienced any changes in pain level or No No management Left Footwear Regular Shoe Surgical Shoe with pressure relief insole Right Footwear Regular Shoe Surgical Shoe with pressure relief insole Pain Scale: 0-10 Numeric Is Patient Pain Free? Yes Yes WC - Nurse 1 - General Ulcer Measurement Start: 10/12/22 08:59 Freq: Status: Active Protocol: Activity Type Activity Date Activity User E-sign Co-sign Detail Recorded Client Recorded Date Recorded By Document 10/12/22 08:59 BMF [id number] 10/12/22 09:18 BMF Document 10/16/22 08:51 DL [id number] 10/16/22 08:55 DL Document 10/19/22 09:22 BMF [id number] 10/19/22 09:44 BMF Document 10/26/22 09:32 AK [id number] 10/26/22 09:34 AK 10/12/22 10/16/22 10/19/22 08:59 08:51 09:22 Wound Center Nurse 1 #8- r 2nd toe -Combined with other wound No No -Current Size (cm) - Length 0.5 0.1 -Current Size (cm) - Width 0.5 0.1 -Current Size (cm) - Depth 0.2 0.1 -Total Square Cm 0.25 0.01 -Date of Last Picture (Recall this 10/12/22 10/19/22 field) -Photo Taken Yes Yes -Epithelialization None Present Large 67-100% -Tunneling No -Undermining/Tunneling No -Circular Undermining No -Exudate Amt Small Small -Exudate Type Serosanguineous Serosanguineous -Wound Margin Distinct, Distinct, Outline Outline Attached Attached -Granulation Amt Small (1-33%) -Granulation Quality Red -Slough/Fibrin Yes -Necrosis Amt Large (67-100%) -Necrotic Tissue Type Adherent Slough -Texture (Marva-wound Skin Appearance) Assessed, Localized Edema Assessed, Scarring ,Scarring Scarring -Moisture (Marva-wound Skin Appearance) Assessed Dry/Scaly Assessed,Dry/ Scaly -Color (Marva-wound Skin Appearance) Assessed, Hemosiderin Assessed Erythema Staining -Temperature (Marva-wound Skin No Abnormality No Abnormality No Abnormality Appearance) (Pt Warm) (Pt Warm) (Pt Warm) -Tenderness on Palpation (Marva-wound No No Skin Appearance) -Ulcer Cleansing Soap and Water Soap and Water Soap and Water -Foul Odor after Cleansing No No No -Anesthetic Used 5% Lidocaine Gel #7 R HEEL -Combined with other wound No -Current Size (cm) - Length 1.8 -Current Size (cm) - Width 2 -Current Size (cm) - Depth 0.1 -Total Square Cm 3.6 -Date of Last Picture (Recall this 10/19/22 field) -Photo Taken Yes -Epithelialization None Present -Tunneling No -Undermining/Tunneling No -Circular Undermining No -Change in Wound Grade/Stage -Exudate Amt Small -Exudate Type Serosanguineous -Wound Margin Distinct, Outline Attached -Granulation Amt Large (67-100%) -Granulation Quality Red -Slough/Fibrin Yes -Necrosis Amt Small (1-33%) -Necrotic Tissue Type Adherent Slough -Structure Exposed -Texture (Marva-wound Skin Appearance) Assessed, Scarring -Moisture (Marva-wound Skin Appearance) No Abnormality, Dry/Scaly -Color (Marva-wound Skin Appearance) Assessed -Temperature (Marva-wound Skin No Abnormality Appearance) (Pt Warm) -Tenderness on Palpation (Marva-wound No Skin Appearance) -Ulcer Cleansing Soap and Water -Foul Odor after Cleansing No -Anesthetic Used 5% Lidocaine Gel #5- L LAT POST LEG -Combined with other wound No -Current Size (cm) - Length 0.1 -Current Size (cm) - Width 0.1 -Current Size (cm) - Depth 0.1 -Total Square Cm 0.01 -Date of Last Picture (Recall this 10/12/22 field) -Photo Taken Yes -Epithelialization Large 67-100% -Tunneling No -Undermining/Tunneling No -Circular Undermining No -Exudate Amt None Present -Texture (Marva-wound Skin Appearance) Assessed, Scarring -Moisture (Marva-wound Skin Appearance) Assessed,Dry/ Scaly -Color (Marva-wound Skin Appearance) Assessed -Ulcer Cleansing Soap and Water -Foul Odor after Cleansing No #4- L POST LE -Combined with other wound No No -Current Size (cm) - Length 0.2 3.5 -Current Size (cm) - Width 0.2 2.3 -Current Size (cm) - Depth 0.1 0.1 -Total Square Cm 0.04 8.05 -Date of Last Picture (Recall this 10/12/22 10/19/22 field) -Photo Taken Yes Yes -Epithelialization Medium 34-66% Small 1-33% -Tunneling No No -Undermining/Tunneling No No -Circular Undermining No No -Exudate Amt Small Small -Exudate Type Serosanguineous Serosanguineous -Wound Margin Distinct, Flat & Intact Outline Attached -Granulation Amt Large (67-100%) Small (1-33%) -Granulation Quality Red Red -Slough/Fibrin Yes Yes -Necrosis Amt Small (1-33%) Large (67-100%) -Necrotic Tissue Type Adherent Slough Adherent Slough -Texture (Marva-wound Skin Appearance) Assessed, Localized Edema Assessed, Scarring ,Scarring Scarring -Moisture (Marva-wound Skin Appearance) Assessed,Dry/ Dry/Scaly Assessed,Dry/ Scaly Scaly -Color (Marva-wound Skin Appearance) Assessed Hemosiderin Assessed Staining -Temperature (Marva-wound Skin No Abnormality No Abnormality No Abnormality Appearance) (Pt Warm) (Pt Warm) (Pt Warm) -Tenderness on Palpation (Marva-wound No No Skin Appearance) -Ulcer Cleansing Soap and Water Soap and Water Soap and Water -Foul Odor after Cleansing No No No -Anesthetic Used 5% Lidocaine 5% Lidocaine Gel Gel #3- L LAT ANKLE/FOOT -Combined with other wound No -Current Size (cm) - Length 0.1 -Current Size (cm) - Width 0.1 -Current Size (cm) - Depth 0.1 -Total Square Cm 0.01 -Date of Last Picture (Recall this 10/12/22 field) -Photo Taken Yes -Epithelialization Large 67-100% -Texture (Marva-wound Skin Appearance) Assessed -Moisture (Marva-wound Skin Appearance) Assessed -Color (Marva-wound Skin Appearance) Assessed -Temperature (Marva-wound Skin No Abnormality Appearance) (Pt Warm) -Tenderness on Palpation (Marva-wound No Skin Appearance) -Ulcer Cleansing Soap and Water -Foul Odor after Cleansing No #6- R LAT ANKLE cluster -Combined with other wound No No -Current Size (cm) - Length 3 0.5 -Current Size (cm) - Width 7 0.4 -Current Size (cm) - Depth 0.1 0.2 -Total Square Cm 21 0.20 -Date of Last Picture (Recall this 10/12/22 10/19/22 field) -Photo Taken Yes Yes -Epithelialization Small 1-33% Medium 34-66% -Tunneling No No -Undermining/Tunneling No No -Circular Undermining No No -Exudate Amt Medium Small Small -Exudate Type Serosanguineous Serosanguineous Serosanguineous -Wound Margin Distinct, Distinct, Distinct, Outline Outline Outline Attached Attached Attached -Granulation Amt Medium (34-66%) Large (67-100%) -Granulation Quality Red -Slough/Fibrin Yes Yes -Necrosis Amt Medium (34-66%) Small (1-33%) -Necrotic Tissue Type Adherent Slough Adherent Slough -Texture (Marva-wound Skin Appearance) Assessed, Localized Edema Assessed, Scarring ,Scarring Scarring -Moisture (Marva-wound Skin Appearance) Assessed Dry/Scaly Assessed -Color (Marva-wound Skin Appearance) Assessed, Hemosiderin Assessed Hemosiderin Staining Staining -Temperature (Marva-wound Skin No Abnormality No Abnormality No Abnormality Appearance) (Pt Warm) (Pt Warm) (Pt Warm) -Tenderness on Palpation (Marva-wound No No Skin Appearance) -Ulcer Cleansing Soap and Water Soap and Water Soap and Water -Foul Odor after Cleansing No No No -Anesthetic Used 5% Lidocaine 5% Lidocaine Gel Gel Lower Limb Edema Present Yes Right Calf (cm) 52.5 50 Point of measurement (cm from the medial instep) Right Ankle (cm) 36.1 33.7 Point of Measurement (cm from the medial instep) Right Foot (cm) 52.9 Left Calf (cm) 36.7 51.5 Left Ankle (cm) 35.5 10/26/22 09:32 Wound Center Nurse 1 #8- r 2nd toe -Combined with other wound No -Current Size (cm) - Length -Current Size (cm) - Width -Current Size (cm) - Depth -Total Square Cm -Date of Last Picture (Recall this field) -Photo Taken -Epithelialization -Tunneling -Undermining/Tunneling -Circular Undermining -Exudate Amt -Exudate Type -Wound Margin -Granulation Amt -Granulation Quality -Slough/Fibrin -Necrosis Amt -Necrotic Tissue Type -Texture (Marva-wound Skin Appearance) -Moisture (Marva-wound Skin Appearance) -Color (Marva-wound Skin Appearance) -Temperature (Marva-wound Skin Appearance) -Tenderness on Palpation (Marva-wound Skin Appearance) -Ulcer Cleansing -Foul Odor after Cleansing -Anesthetic Used #7 R HEEL -Combined with other wound No -Current Size (cm) - Length 0.4 -Current Size (cm) - Width 0.4 -Current Size (cm) - Depth 0.1 -Total Square Cm 0.16 -Date of Last Picture (Recall this field) -Photo Taken No -Epithelialization -Tunneling No -Undermining/Tunneling No -Circular Undermining No -Change in Wound Grade/Stage No -Exudate Amt Medium -Exudate Type Serosanguineous -Wound Margin Distinct, Outline Attached -Granulation Amt Large (67-100%) -Granulation Quality Red -Slough/Fibrin Yes -Necrosis Amt Small (1-33%) -Necrotic Tissue Type Adherent Slough -Structure Exposed N/A -Texture (Marva-wound Skin Appearance) Assessed,Callus ,Excoriation -Moisture (Marva-wound Skin Appearance) Assessed,Dry/ Scaly -Color (Marva-wound Skin Appearance) No Abnormality, Assessed -Temperature (Marva-wound Skin No Abnormality Appearance) (Pt Warm) -Tenderness on Palpation (Marva-wound Yes Skin Appearance) -Ulcer Cleansing Soap and Water -Foul Odor after Cleansing No -Anesthetic Used 5% Lidocaine Gel #5- L LAT POST LEG -Combined with other wound -Current Size (cm) - Length -Current Size (cm) - Width -Current Size (cm) - Depth -Total Square Cm -Date of Last Picture (Recall this field) -Photo Taken -Epithelialization -Tunneling -Undermining/Tunneling -Circular Undermining -Exudate Amt -Texture (Marva-wound Skin Appearance) -Moisture (Marva-wound Skin Appearance) -Color (Marva-wound Skin Appearance) -Ulcer Cleansing -Foul Odor after Cleansing #4- L POST LE -Combined with other wound -Current Size (cm) - Length -Current Size (cm) - Width -Current Size (cm) - Depth -Total Square Cm -Date of Last Picture (Recall this field) -Photo Taken -Epithelialization -Tunneling -Undermining/Tunneling -Circular Undermining -Exudate Amt -Exudate Type -Wound Margin -Granulation Amt -Granulation Quality -Slough/Fibrin -Necrosis Amt -Necrotic Tissue Type -Texture (Marva-wound Skin Appearance) -Moisture (Marva-wound Skin Appearance) -Color (Marva-wound Skin Appearance) -Temperature (Marva-wound Skin Appearance) -Tenderness on Palpation (Marva-wound Skin Appearance) -Ulcer Cleansing -Foul Odor after Cleansing -Anesthetic Used #3- L LAT ANKLE/FOOT -Combined with other wound -Current Size (cm) - Length -Current Size (cm) - Width -Current Size (cm) - Depth -Total Square Cm -Date of Last Picture (Recall this field) -Photo Taken -Epithelialization -Texture (Marva-wound Skin Appearance) -Moisture (Marva-wound Skin Appearance) -Color (Marva-wound Skin Appearance) -Temperature (Marva-wound Skin Appearance) -Tenderness on Palpation (Marva-wound Skin Appearance) -Ulcer Cleansing -Foul Odor after Cleansing #6- R LAT ANKLE cluster -Combined with other wound -Current Size (cm) - Length -Current Size (cm) - Width -Current Size (cm) - Depth -Total Square Cm -Date of Last Picture (Recall this field) -Photo Taken -Epithelialization -Tunneling -Undermining/Tunneling -Circular Undermining -Exudate Amt -Exudate Type -Wound Margin -Granulation Amt -Granulation Quality -Slough/Fibrin -Necrosis Amt -Necrotic Tissue Type -Texture (Marva-wound Skin Appearance) -Moisture (Marva-wound Skin Appearance) -Color (Marva-wound Skin Appearance) -Temperature (Marva-wound Skin Appearance) -Tenderness on Palpation (Marva-wound Skin Appearance) -Ulcer Cleansing -Foul Odor after Cleansing -Anesthetic Used Lower Limb Edema Present Right Calf (cm) Point of measurement (cm from the medial 53 instep) Right Ankle (cm) Point of Measurement (cm from the medial 36 instep) Right Foot (cm) Left Calf (cm) 55 Left Ankle (cm) 36 WC - Nurse 2 - General Ulcer CM Notes Start: 10/12/22 08:59 Freq: Status: Active Protocol: Activity Type Activity Date Activity User E-sign Co-sign Detail Recorded Client Recorded Date Recorded By Document 10/12/22 09:31 MW [id number] 10/12/22 09:48 MW Document 10/19/22 09:51 MW [id number] 10/19/22 10:21 MW Document 06/15/23 09:42 MW Desktop 10/26/22 09:50 MW 10/12/22 10/19/22 10/26/22 09:31 09:51 09:42 Wound Center Nurse 2 #8- r 2nd toe -Time 09:32 09:52 09:49 -Correct Patient Yes Yes Yes -Correct Side, Site, Position Yes Yes Yes -Correct Procedure Yes Yes Yes -Procedure Performed Yes Yes No -Type of Procedure Debridement Debridement -Clinical Debridement Subcutaneous Subcutaneous -Tissue Removed Subcutaneous Subcutaneous -Post Debridement (cm) - Length 0.8 0.4 0 -Post Debridement (cm) - Width 0.2 1.0 0 -Post Debridement (cm) - Depth 0.1 0.1 0 -Total Square (Post) (cm) 0.16 0.40 0 -Area of Debridement (cm) - Length 0.8 0.4 -Area of Debridement (cm) - Width 0.2 1.0 -Total Square (Area) (cm) 0.16 0.40 -Tunneling No No -Undermining/Tunneling No -Circular Undermining No No -Wound/Ulcer Outcome Not Healed Not Healed Healed- Epithelialized -Ulcer Cleansing Rinsed/ Rinsed/ Irrigated with Irrigated with Saline Saline -Foul Odor after Cleansing No No -Bioengineered Tissue No No -Bleeding Controlled with Pressure Pressure -Treatment Response Procedure Procedure Tolerated Well Tolerated Well -Offloading No No -Debridement - Subq, 1st 20sq cm Yes No -Debridement, SubQ, ea addt'l 20sq cm 3 or part thereof #7 R HEEL -Time 09:53 09:46 -Correct Patient Yes Yes -Correct Side, Site, Position Yes Yes -Correct Procedure Yes Yes -Procedure Performed No No -Post Debridement (cm) - Length 0 0 -Post Debridement (cm) - Width 0 0 -Post Debridement (cm) - Depth 0 -Total Square (Post) (cm) 0 0 -Area of Debridement (cm) - Length 0 -Area of Debridement (cm) - Width 1.0 -Total Square (Area) (cm) 0 -Tunneling No No -Undermining/Tunneling No No -Circular Undermining No -Wound/Ulcer Outcome Healed- Healed- Epithelialized Epithelialized #5- L LAT POST LEG -Time 09:33 -Correct Patient Yes -Correct Side, Site, Position Yes -Correct Procedure Yes -Procedure Performed No -Post Debridement (cm) - Length 0 -Post Debridement (cm) - Width 0 -Total Square (Post) (cm) 0 -Tunneling No -Undermining/Tunneling No -Circular Undermining No -Wound/Ulcer Outcome Healed- Epithelialized #4- L POST LE -Time 09:34 09:54 09:49 -Correct Patient Yes Yes Yes -Correct Side, Site, Position Yes Yes Yes -Correct Procedure Yes Yes Yes -Procedure Performed Yes No No -Type of Procedure Debridement Debridement -Clinical Debridement Subcutaneous Subcutaneous -Tissue Removed Subcutaneous Subcutaneous -Post Debridement (cm) - Length 5.5 0.1 0 -Post Debridement (cm) - Width 4.0 0.1 0 -Post Debridement (cm) - Depth 0.1 0.1 0 -Total Square (Post) (cm) 22.00 0.01 0 -Area of Debridement (cm) - Length 5.5 0.1 -Area of Debridement (cm) - Width 4.0 0.1 -Total Square (Area) (cm) 22.00 0.01 -Tunneling No No -Undermining/Tunneling No No -Circular Undermining No No -Wound/Ulcer Outcome Not Healed Not Healed Healed- Epithelialized -Ulcer Cleansing Rinsed/ Rinsed/ Irrigated with Irrigated with Saline Saline -Foul Odor after Cleansing No No -Bioengineered Tissue No No -Bleeding Controlled with Pressure Pressure -Treatment Response Procedure Procedure Tolerated Well Tolerated Well -Offloading No No -Debridement - Subq, 1st 20sq cm No No #3- L LAT ANKLE/FOOT -Time 09:35 -Correct Patient Yes -Correct Side, Site, Position Yes -Correct Procedure Yes -Procedure Performed No -Post Debridement (cm) - Length 0 -Post Debridement (cm) - Width 0 -Post Debridement (cm) - Depth 0 -Total Square (Post) (cm) 0 -Tunneling No -Undermining/Tunneling No -Circular Undermining No -Wound/Ulcer Outcome Healed- Epithelialized -Bleeding Controlled with Pressure,Silver Nitrate #6- R LAT ANKLE cluster -Time 09:33 09:53 09:48 -Correct Patient Yes Yes Yes -Correct Side, Site, Position Yes Yes Yes -Correct Procedure Yes Yes Yes -Procedure Performed Yes Yes Yes -Type of Procedure Debridement Debridement Debridement -Clinical Debridement Subcutaneous Subcutaneous Subcutaneous -Tissue Removed Subcutaneous Subcutaneous Subcutaneous -Post Debridement (cm) - Length 3.5 2.8 0.8 -Post Debridement (cm) - Width 8.0 7.0 1.0 -Post Debridement (cm) - Depth 0.1 0.1 0.1 -Total Square (Post) (cm) 28.00 19.60 0.80 -Area of Debridement (cm) - Length 3.5 2.8 0.8 -Area of Debridement (cm) - Width 8.0 7.0 1.0 -Total Square (Area) (cm) 28.00 19.60 0.80 -Tunneling No No No -Undermining/Tunneling No No No -Circular Undermining No No No -Wound/Ulcer Outcome Not Healed Not Healed Not Healed -Ulcer Cleansing Rinsed/ Rinsed/ Rinsed/ Irrigated with Irrigated with Irrigated with Saline Saline Saline -Foul Odor after Cleansing No No No -Bioengineered Tissue No No No -Bleeding Controlled with Pressure,Silver Pressure Pressure Nitrate -Treatment Response Procedure Procedure Procedure Tolerated Well Tolerated Well Tolerated Well -Offloading No No No -Debridement - Subq, 1st 20sq cm No Yes Yes Pain Scale: 0-10 Numeric Is Patient Pain Free? Yes Yes Yes WC - Nurse 3 - General Ulcer D/C NN Start: 10/12/22 08:59 Freq: Status: Active Protocol: Activity Type Activity Date Activity User E-sign Co-sign Detail Recorded Client Recorded Date Recorded By Document 10/12/22 10:13 [facility] [id number] 10/12/22 10:15 [facility] Document 10/16/22 08:51 DL [id number] 10/16/22 08:55 DL Document 10/19/22 10:28 [facility] [id number] 10/19/22 10:29 [facility] Document 10/24/22 13:03 AK [id number] 10/24/22 13:06 [facility] Document 10/24/22 13:06 AK [id number] 10/24/22 13:07 AK 10/12/22 10/16/22 10/19/22 10:13 08:51 10:28 [facility] Nurse 3 #8- r 2nd toe -Ulcer Cleansing Soap and Water Soap and Water Soap and Water -Foul Odor after Cleansing No No -Negative Pressure Wound Therapy -Primary Dressing Applied Aquacel Extra Aquacel AG 4x4 Aquacel Extra -Other Dressing PER DL FRAUD MANAGER -Primary Dressing Covered/Secured with Dry Gauze, Dry Gauze, Secured with Secured with Tape Tape -Other Covering UNNA BOOT -Aquacel Extra 0 1 -Aquacel AG 4x4 1 #4- L POST LE -Ulcer Cleansing Rinsed/ Soap and Water Soap and Water Irrigated with Saline -Foul Odor after Cleansing No No No -Negative Pressure Wound Therapy -Primary Dressing Applied Aquacel Extra Aquacel Extra -Other Dressing unna aqaucel Ag UNNA BOOT; PER DL FRAUD MANAGER -Primary Dressing Covered/Secured with Dry Gauze & Roll Gauze, Secured with Tape -Aquacel Extra 0 0 #6- R LAT ANKLE cluster -Ulcer Cleansing Rinsed/ Soap and Water Soap and Water Irrigated with Saline -Foul Odor after Cleansing No No No -Primary Dressing Applied Aquacel Extra Aquacel Extra -Other Dressing unna aqaucel Ag UNNA BOOT; PER DL FRAUD MANAGER -Primary Dressing Covered/Secured with Dry Gauze, Secured with Tape -Aquacel Extra 1 0 ble -Lotion applied to leg before compression wrap -Multi-Layered Wrap Application Unna Boot - Multi-Layer Unna Boot - Bilateral ($) Comp - Bilat ($ Bilateral ($) ) Treatment Response Procedure Procedure Not Procedure Tolerated Well Tolerated Well Tolerated Well Vital Signs Temperature (97.8 F-99.1 F) 973 F H Temperature Source Temporal Pulse Rate (60-100) 91 Pulse Location Monitor Respiratory Rate (12-18) 20 H Respiratory rate source Observation Blood Pressure (90/60-120/80) 137/100 H Blood Pressure Mean (mm Hg) 112 Source Monitor Pain Scale: 0-10 Numeric Is Patient Pain Free? Yes Yes Yes WC - Visit Discharge Discharge Condition Stable Stable Stable Ambulatory Status Ambulatory Ambulatory Ambulatory Transportation Private Auto Private Auto Private Auto Medication Reconcilliation completed & provided to patient/care provider Clinical Summary of Care Provided Notes: 10/24/22 10/24/22 13:03 13:06 Wound Care Center Nurse 3 #8- r 2nd toe -Ulcer Cleansing Soap and Water -Foul Odor after Cleansing No -Negative Pressure Wound Therapy N/A -Primary Dressing Applied Aquacel Extra -Other Dressing -Primary Dressing Covered/Secured with -Other Covering -Aquacel Extra 1 -Aquacel AG 4x4 #4- L POST LE -Ulcer Cleansing Soap and Water -Foul Odor after Cleansing No -Negative Pressure Wound Therapy N/A -Primary Dressing Applied -Other Dressing aquacel extra -Primary Dressing Covered/Secured with -Aquacel Extra #6- R LAT ANKLE cluster -Ulcer Cleansing Soap and Water -Foul Odor after Cleansing -Primary Dressing Applied -Other Dressing aquacel extra -Primary Dressing Covered/Secured with -Aquacel Extra ble -Lotion applied to leg before No compression wrap -Multi-Layered Wrap Application Unna Boot - Bilateral ($) Treatment Response Vital Signs Temperature (97.8 F-99.1 F) 97.1 F L Temperature Source Temporal Pulse Rate (60-100) 98 Pulse Location Monitor Respiratory Rate (12-18) Respiratory rate source Blood Pressure (90/60-120/80) 137/81 H Blood Pressure Mean (mm Hg) 99 Source Monitor Pain Scale: 0-10 Numeric Is Patient Pain Free? Yes Yes WC - Visit Discharge Discharge Condition Stable Ambulatory Status Transportation Private Auto Medication Reconcilliation completed & Yes provided to patient/care provider Clinical Summary of Care Provided Yes Notes: shanique applied wraps Assessment/Plan Assessment/Plan (1) Ulcer of left lower extremity with fat layer exposed: CODE(S): L97.922 - Non-pressure 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 layer exposed (2) Ulcer of right lower extremity with fat layer exposed: CODE(S): L97.912 - Non-pressure chronic ulcer of unspecified part of rightlower leg with fat layer exposed (3) Lymphedema: CODE(S): I89.0 - Lymphedema, not elsewhere classified (4) Homeless single person: CODE(S): Z59.0 - Homelessness PLAN: Plan Debridement done as documented above, procedure was well-tolerated. Continues to show good improvement. Left Lower Extremity is healed. Continue Aquacel to open areas and Unna boot to both lower extremities. Leave in place x 1 week. Leg elevation, exercise as tolerated discussed, he voiced understanding. Optimal protein intake also recommended. His questions were answered and he wasadvised to call with any further questions or concerns. Follow-up with me in a week. This note was generated with [employer] (powering [employer])ation software. It may contain incorrectwords, spelling, and punctuation that were not noted in checking the note beforesigning. 10/26/22 1258 <Electronically signed by Franklyn Sanchez MD> Cosigner Signature (if applicable): CC: ~ Signed [facility] Work Phone: [phone]) 218-529606-09-2023 Progress note Author Franklyn Sanchez [facility] October 20, 2022 12:59pm Note Date/Time October 19, 2022 1:00p m [facility] [address] [place] [address] Progress Note - Wound Care 10/19/22 1254 MR#: [id number] Acct: [id number] Name: JAK TANNER Rep #:[id number] : 1955 67 From: Franklyn espinal MD PCP: Dr. Yajaira Heller Status:REG RC R Location: History of Present Illness Date of Service: 10/19/22 Chief Complaint: Bilateral lower extremity ulcers. History of Wound: Mr. Tanner is a 67 yo who was referred to the wound center due to bilateral lower extremity ulcer. Clinic history of lymphedema. He is currently homeless and has been living in his van. He states that over the recent months, he has been sitting a lot more is not as active as it should be. He also states that he has not been using his compression. [facility], he was started on antibiotics and has 1 more day of it. Tolerating antibiotic well. Initially had a lot of drainage from his ulcers but he states that this has improved. No known historyof diabetes. No chills, fever or feeling of unwell at this time. Progress of Wound: Tolerating Unna boot well. Improvement noted. Objective Data Objective Data Vital Signs: Vital Signs Temp Pulse Resp BP O2 Del Method 97.5 F L 85 18 134/73 H Room Air 10/19/22 09:22 10/19/22 09:22 10/19/22 09:22 10/19/22 09:22 10/19/22 09:22 Oxygen Delivery Method Room Air Weight: 340 lb Body Mass Index (BMI) 47.4 Charges/Coding Procedures Integumentary 111xxx-113xx: 38569 Magdalena subq tissue 20 sq cm/< Add On Codes: 20166 Magdalena subq tissue add-on (x3. Additional square centimeter debrided, please refer to clinical note.) Physical Exam Const alert, oriented x3 and no apparent distress General Appearance: cooperative and comfortable HEENT normocephalic, head/scalp atraumatic and hearing grossly normal bilaterally Eyes EOMs intact bilaterally Neck full ROM Resp normal respiratory effort Effort and Inspection: able to speak in complete sentences Extremity General Extremity: edema Skin Wounds: wounds noted Neuro oriented x3, CN's II-XII intact bilaterally and moves all extremities Psych mental status grossly normal, thought process normal, cooperative and affect normal Debridement Note Debridement Note Wound debrided: Right second toe Type of Debridement: Excisional debridement Anesthesia Used: 5% Lidocaine Gel Depth: Down to and including healthy tissue and in the subcutaneous layer Percentage of wound debrided: 100 Instrument Used: 3mm curette Tissue Removed: Slough and devitalized tissue Severity: Fat Layer Exposed Amount of bleeding with debridement: Mild Bleeding Controlled with: Pressure Patient tolerated procedure: Patient tolerated procedure well Post-Debridement Measurements and Additional Note: Post-Debridement Measurements/Treatment - Nurse 1 - General Ulcer Assessment Start: 10/12/22 08:59 Freq: Status: Active Protocol: WILLIAM Activity Type Activity Date Activity User E-sign Co-sign Detail Recorded Client Recorded Date Recorded By Document 10/12/22 08:59 [facility] [id number] 10/12/22 09:18 [facility] Document 10/16/22 08:51 DL [id number] 10/16/22 08:55 DL Document 10/19/22 09:22 [facility] [id number] 10/19/22 09:44 [facility] 10/12/22 10/16/22 10/19/22 08:59 08:51 09:22 - Today's Visit Information Type of service Follow-up Visit Nurse-only Follow-up Visit (Physician/DOOR AND ARRIVAL ATTENDANT Visit (Physician/DOOR AND ARRIVAL ATTENDANT ) ) Arrival Mode Ambulatory Ambulatory Ambulatory Transfer Assistance None None None Patient Identification Verified (Name & Yes Yes Yes ) Patient Requires Transmission-Based No No No Precautions Height and Weight Body Mass Index (BMI) 47.4 47.4 47.4 BMI Classification Obese Obese Obese Vital Signs Temperature (97.8 F-99.1 F) 97.6 F L 973 F H 97.5 F L Temperature Source Temporal Temporal Temporal Pulse Rate (60-100) 94 91 85 Pulse Location Monitor Monitor Monitor Respiratory Rate (12-18) 16 20 H 18 Respiratory rate source Observation Observation Observation Oxygen Delivery Method Room Air Room Air Blood Pressure (90/60-120/80) 140/69 H 137/100 H 134/73 H Blood Pressure Mean (mm Hg) 92 112 93 Source Monitor Monitor Monitor Position Sitting Sitting Blood Pressure Location Right Arm Left Arm History Since Last Visit- (Skip if this is Patient's initial visit) Have you changed medications since your No No No last visit? Any new allergies or adverse reactions No No No Had a fall/change in ADL's that may No No No increase risk of falls Signs or symptoms of abuse and/or No No No neglect since last visit Have you been in the hospital since your No No No last visit? Has dressing in place as prescribed Yes Yes Yes Has compression in place as prescribed Yes N/A Yes Has offloadiing in place as prescribed N/A Yes Yes Experienced any changes in pain level or No No management Left Footwear Surgical Shoe Surgical Shoe Surgical Shoe with pressure with pressure with pressure relief insole relief insole relief insole Right Footwear Surgical Shoe Surgical Shoe Surgical Shoe with pressure with pressure with pressure relief insole relief insole relief insole Pain Scale: 0-10 Numeric Is Patient Pain Free? Yes Yes Yes WC - Nurse 1 - General Ulcer Measurement Start: 10/12/22 08:59 Freq: Status: Active Protocol: Activity Type Activity Date Activity User E-sign Co-sign Detail Recorded Client Recorded Date Recorded By Document 10/12/22 08:59 [facility] [id number] 10/12/22 09:18 BM Document 10/16/22 08:51 DL [id number] 10/16/22 08:55 DL Document 10/19/22 09:22 [facility] [id number] 10/19/22 09:44 [facility] 10/12/22 10/16/22 10/19/22 08:59 08:51 09:22 Wound Center Nurse 1 #7 R HEEL -Combined with other wound No -Current Size (cm) - Length 1.8 -Current Size (cm) - Width 2 -Current Size (cm) - Depth 0.1 -Total Square Cm 3.6 -Date of Last Picture (Recall this 10/19/22 field) -Photo Taken Yes -Epithelialization None Present -Tunneling No -Undermining/Tunneling No -Circular Undermining No -Exudate Amt Small -Exudate Type Serosanguineous -Wound Margin Distinct, Outline Attached -Granulation Amt Large (67-100%) -Granulation Quality Red -Slough/Fibrin Yes -Necrosis Amt Small (1-33%) -Necrotic Tissue Type Adherent Slough -Texture (Marva-wound Skin Appearance) Assessed, Scarring -Moisture (Marva-wound Skin Appearance) No Abnormality, Dry/Scaly -Color (Marva-wound Skin Appearance) Assessed -Temperature (Marva-wound Skin No Abnormality Appearance) (Pt Warm) -Tenderness on Palpation (Marva-wound No Skin Appearance) -Ulcer Cleansing Soap and Water -Foul Odor after Cleansing No -Anesthetic Used 5% Lidocaine Gel #5- L LAT POST LEG -Combined with other wound No -Current Size (cm) - Length 0.1 -Current Size (cm) - Width 0.1 -Current Size (cm) - Depth 0.1 -Total Square Cm 0.01 -Date of Last Picture (Recall this 10/12/22 field) -Photo Taken Yes -Epithelialization Large 67-100% -Tunneling No -Undermining/Tunneling No -Circular Undermining No -Exudate Amt None Present -Texture (Marva-wound Skin Appearance) Assessed, Scarring -Moisture (Marva-wound Skin Appearance) Assessed,Dry/ Scaly -Color (Marva-wound Skin Appearance) Assessed -Ulcer Cleansing Soap and Water -Foul Odor after Cleansing No #3- L LAT ANKLE/FOOT -Combined with other wound No -Current Size (cm) - Length 0.1 -Current Size (cm) - Width 0.1 -Current Size (cm) - Depth 0.1 -Total Square Cm 0.01 -Date of Last Picture (Recall this 10/12/22 field) -Photo Taken Yes -Epithelialization Large 67-100% -Texture (Marva-wound Skin Appearance) Assessed -Moisture (Marva-wound Skin Appearance) Assessed -Color (Marva-wound Skin Appearance) Assessed -Temperature (Marva-wound Skin No Abnormality Appearance) (Pt Warm) -Tenderness on Palpation (Marva-wound No Skin Appearance) -Ulcer Cleansing Soap and Water -Foul Odor after Cleansing No #8- r 2nd toe -Combined with other wound No No -Current Size (cm) - Length 0.5 0.1 -Current Size (cm) - Width 0.5 0.1 -Current Size (cm) - Depth 0.2 0.1 -Total Square Cm 0.25 0.01 -Date of Last Picture (Recall this 10/12/22 10/19/22 field) -Photo Taken Yes Yes -Epithelialization None Present Large 67-100% -Tunneling No -Undermining/Tunneling No -Circular Undermining No -Exudate Amt Small Small -Exudate Type Serosanguineous Serosanguineous -Wound Margin Distinct, Distinct, Outline Outline Attached Attached -Granulation Amt Small (1-33%) -Granulation Quality Red -Slough/Fibrin Yes -Necrosis Amt Large (67-100%) -Necrotic Tissue Type Adherent Slough -Texture (Marva-wound Skin Appearance) Assessed, Localized Edema Assessed, Scarring ,Scarring Scarring -Moisture (Marva-wound Skin Appearance) Assessed Dry/Scaly Assessed,Dry/ Scaly -Color (Marva-wound Skin Appearance) Assessed, Hemosiderin Assessed Erythema Staining -Temperature (Marva-wound Skin No Abnormality No Abnormality No Abnormality Appearance) (Pt Warm) (Pt Warm) (Pt Warm) -Tenderness on Palpation (Marva-wound No No Skin Appearance) -Ulcer Cleansing Soap and Water Soap and Water Soap and Water -Foul Odor after Cleansing No No No -Anesthetic Used 5% Lidocaine Gel #6- R LAT ANKLE cluster -Combined with other wound No No -Current Size (cm) - Length 3 0.5 -Current Size (cm) - Width 7 0.4 -Current Size (cm) - Depth 0.1 0.2 -Total Square Cm 21 0.20 -Date of Last Picture (Recall this 10/12/22 10/19/22 field) -Photo Taken Yes Yes -Epithelialization Small 1-33% Medium 34-66% -Tunneling No No -Undermining/Tunneling No No -Circular Undermining No No -Exudate Amt Medium Small Small -Exudate Type Serosanguineous Serosanguineous Serosanguineous -Wound Margin Distinct, Distinct, Distinct, Outline Outline Outline Attached Attached Attached -Granulation Amt Medium (34-66%) Large (67-100%) -Granulation Quality Red -Slough/Fibrin Yes Yes -Necrosis Amt Medium (34-66%) Small (1-33%) -Necrotic Tissue Type Adherent Slough Adherent Slough -Texture (Marva-wound Skin Appearance) Assessed, Localized Edema Assessed, Scarring ,Scarring Scarring -Moisture (Marva-wound Skin Appearance) Assessed Dry/Scaly Assessed -Color (Marva-wound Skin Appearance) Assessed, Hemosiderin Assessed Hemosiderin Staining Staining -Temperature (Marva-wound Skin No Abnormality No Abnormality No Abnormality Appearance) (Pt Warm) (Pt Warm) (Pt Warm) -Tenderness on Palpation (Marva-wound No No Skin Appearance) -Ulcer Cleansing Soap and Water Soap and Water Soap and Water -Foul Odor after Cleansing No No No -Anesthetic Used 5% Lidocaine 5% Lidocaine Gel Gel #4- L POST LE -Combined with other wound No No -Current Size (cm) - Length 0.2 3.5 -Current Size (cm) - Width 0.2 2.3 -Current Size (cm) - Depth 0.1 0.1 -Total Square Cm 0.04 8.05 -Date of Last Picture (Recall this 10/12/22 10/19/22 field) -Photo Taken Yes Yes -Epithelialization Medium 34-66% Small 1-33% -Tunneling No No -Undermining/Tunneling No No -Circular Undermining No No -Exudate Amt Small Small -Exudate Type Serosanguineous Serosanguineous -Wound Margin Distinct, Flat & Intact Outline Attached -Granulation Amt Large (67-100%) Small (1-33%) -Granulation Quality Red Red -Slough/Fibrin Yes Yes -Necrosis Amt Small (1-33%) Large (67-100%) -Necrotic Tissue Type Adherent Slough Adherent Slough -Texture (Marva-wound Skin Appearance) Assessed, Localized Edema Assessed, Scarring ,Scarring Scarring -Moisture (Marva-wound Skin Appearance) Assessed,Dry/ Dry/Scaly Assessed,Dry/ Scaly Scaly -Color (Marva-wound Skin Appearance) Assessed Hemosiderin Assessed Staining -Temperature (Marva-wound Skin No Abnormality No Abnormality No Abnormality Appearance) (Pt Warm) (Pt Warm) (Pt Warm) -Tenderness on Palpation (Marva-wound No No Skin Appearance) -Ulcer Cleansing Soap and Water Soap and Water Soap and Water -Foul Odor after Cleansing No No No -Anesthetic Used 5% Lidocaine 5% Lidocaine Gel Gel Lower Limb Edema Present Yes Right Calf (cm) 52.5 50 Right Ankle (cm) 36.1 33.7 Right Foot (cm) 52.9 Left Calf (cm) 36.7 51.5 Left Ankle (cm) 35.5 WC - Nurse 2 - General Ulcer CM Notes Start: 10/12/22 08:59 Freq: Status: Active Protocol: Activity Type Activity Date Activity User E-sign Co-sign Detail Recorded Client Recorded Date Recorded By Document 10/12/22 09:31 MW [id number] 10/12/22 09:48 MW Document 10/19/22 09:51 MW [id number] 10/19/22 10:21 MW 10/12/22 10/19/22 09:31 09:51 Wound Center Nurse 2 #7 R HEEL -Time 09:53 -Correct Patient Yes -Correct Side, Site, Position Yes -Correct Procedure Yes -Procedure Performed No -Post Debridement (cm) - Length 0 -Post Debridement (cm) - Width 0 -Total Square (Post) (cm) 0 -Tunneling No -Undermining/Tunneling No -Wound/Ulcer Outcome Healed- Epithelialized #5- L LAT POST LEG -Time 09:33 -Correct Patient Yes -Correct Side, Site, Position Yes -Correct Procedure Yes -Procedure Performed No -Post Debridement (cm) - Length 0 -Post Debridement (cm) - Width 0 -Total Square (Post) (cm) 0 -Tunneling No -Undermining/Tunneling No -Circular Undermining No -Wound/Ulcer Outcome Healed- Epithelialized #3- L LAT ANKLE/FOOT -Time 09:35 -Correct Patient Yes -Correct Side, Site, Position Yes -Correct Procedure Yes -Procedure Performed No -Post Debridement (cm) - Length 0 -Post Debridement (cm) - Width 0 -Post Debridement (cm) - Depth 0 -Total Square (Post) (cm) 0 -Tunneling No -Undermining/Tunneling No -Circular Undermining No -Wound/Ulcer Outcome Healed- Epithelialized -Bleeding Controlled with Pressure,Silver Nitrate #8- r 2nd toe -Time 09:32 09:52 -Correct Patient Yes Yes -Correct Side, Site, Position Yes Yes -Correct Procedure Yes Yes -Procedure Performed Yes Yes -Type of Procedure Debridement Debridement -Clinical Debridement Subcutaneous Subcutaneous -Tissue Removed Subcutaneous Subcutaneous -Post Debridement (cm) - Length 0.8 0.4 -Post Debridement (cm) - Width 0.2 1.0 -Post Debridement (cm) - Depth 0.1 0.1 -Total Square (Post) (cm) 0.16 0.40 -Area of Debridement (cm) - Length 0.8 0.4 -Area of Debridement (cm) - Width 0.2 1.0 -Total Square (Area) (cm) 0.16 0.40 -Tunneling No No -Undermining/Tunneling No -Circular Undermining No No -Wound/Ulcer Outcome Not Healed Not Healed -Ulcer Cleansing Rinsed/ Rinsed/ Irrigated with Irrigated with Saline Saline -Foul Odor after Cleansing No No -Bioengineered Tissue No No -Bleeding Controlled with Pressure Pressure -Treatment Response Procedure Procedure Tolerated Well Tolerated Well -Offloading No No -Debridement - Subq, 1st 20sq cm Yes No -Debridement, SubQ, ea addt'l 20sq cm 3 or part thereof #6- R LAT ANKLE cluster -Time 09:33 09:53 -Correct Patient Yes Yes -Correct Side, Site, Position Yes Yes -Correct Procedure Yes Yes -Procedure Performed Yes Yes -Type of Procedure Debridement Debridement -Clinical Debridement Subcutaneous Subcutaneous -Tissue Removed Subcutaneous Subcutaneous -Post Debridement (cm) - Length 3.5 2.8 -Post Debridement (cm) - Width 8.0 7.0 -Post Debridement (cm) - Depth 0.1 0.1 -Total Square (Post) (cm) 28.00 19.60 -Area of Debridement (cm) - Length 3.5 2.8 -Area of Debridement (cm) - Width 8.0 7.0 -Total Square (Area) (cm) 28.00 19.60 -Tunneling No No -Undermining/Tunneling No No -Circular Undermining No No -Wound/Ulcer Outcome Not Healed Not Healed -Ulcer Cleansing Rinsed/ Rinsed/ Irrigated with Irrigated with Saline Saline -Foul Odor after Cleansing No No -Bioengineered Tissue No No -Bleeding Controlled with Pressure,Silver Pressure Nitrate -Treatment Response Procedure Procedure Tolerated Well Tolerated Well -Offloading No No -Debridement - Subq, 1st 20sq cm No Yes #4- L POST LE -Time 09:34 09:54 -Correct Patient Yes Yes -Correct Side, Site, Position Yes Yes -Correct Procedure Yes Yes -Procedure Performed Yes No -Type of Procedure Debridement Debridement -Clinical Debridement Subcutaneous Subcutaneous -Tissue Removed Subcutaneous Subcutaneous -Post Debridement (cm) - Length 5.5 0.1 -Post Debridement (cm) - Width 4.0 0.1 -Post Debridement (cm) - Depth 0.1 0.1 -Total Square (Post) (cm) 22.00 0.01 -Area of Debridement (cm) - Length 5.5 0.1 -Area of Debridement (cm) - Width 4.0 0.1 -Total Square (Area) (cm) 22.00 0.01 -Tunneling No No -Undermining/Tunneling No No -Circular Undermining No No -Wound/Ulcer Outcome Not Healed Not Healed -Ulcer Cleansing Rinsed/ Rinsed/ Irrigated with Irrigated with Saline Saline -Foul Odor after Cleansing No No -Bioengineered Tissue No No -Bleeding Controlled with Pressure Pressure -Treatment Response Procedure Procedure Tolerated Well Tolerated Well -Offloading No No -Debridement - Subq, 1st 20sq cm No No Pain Scale: 0-10 Numeric Is Patient Pain Free? Yes Yes WC - Nurse 3 - General Ulcer D/C NN Start: 10/12/22 08:59 Freq: Status: Active Protocol: Activity Type Activity Date Activity User E-sign Co-sign Detail Recorded Client Recorded Date Recorded By Document 10/12/22 10:13 [facility] [id number] 10/12/22 10:15 [facility] Document 10/16/22 08:51 DL [id number] 10/16/22 08:55 DL Document 10/19/22 10:28 [facility] [id number] 10/19/22 10:29 [facility] 10/12/22 10/16/22 10/19/22 10:13 08:51 10:28 [facility] Nurse 3 #8- r 2nd toe -Ulcer Cleansing Soap and Water Soap and Water Soap and Water -Foul Odor after Cleansing No No -Primary Dressing Applied Aquacel Extra Aquacel AG 4x4 Aquacel Extra -Other Dressing PER DL FRAUD MANAGER -Primary Dressing Covered/Secured with Dry Gauze, Dry Gauze, Secured with Secured with Tape Tape -Other Covering UNNA BOOT -Aquacel Extra 0 1 -Aquacel AG 4x4 1 #6- R LAT ANKLE cluster -Ulcer Cleansing Rinsed/ Soap and Water Soap and Water Irrigated with Saline -Foul Odor after Cleansing No No No -Primary Dressing Applied Aquacel Extra Aquacel Extra -Other Dressing unna aqaucel Ag UNNA BOOT; PER DL FRAUD MANAGER -Primary Dressing Covered/Secured with Dry Gauze, Secured with Tape -Aquacel Extra 1 0 #4- L POST LE -Ulcer Cleansing Rinsed/ Soap and Water Soap and Water Irrigated with Saline -Foul Odor after Cleansing No No No -Primary Dressing Applied Aquacel Extra Aquacel Extra -Other Dressing unna aqaucel Ag UNNA BOOT; PER DL FRAUD MANAGER -Primary Dressing Covered/Secured with Dry Gauze & Roll Gauze, Secured with Tape -Aquacel Extra 0 0 ble -Multi-Layered Wrap Application Unna Boot - Multi-Layer Unna Boot - Bilateral ($) Comp - Bilat ($ Bilateral ($) ) Treatment Response Procedure Procedure Not Procedure Tolerated Well Tolerated Well Tolerated Well Vital Signs Temperature (97.8 F-99.1 F) 973 F H Temperature Source Temporal Pulse Rate (60-100) 91 Pulse Location Monitor Respiratory Rate (12-18) 20 H Respiratory rate source Observation Blood Pressure (90/60-120/80) 137/100 H Blood Pressure Mean (mm Hg) 112 Source Monitor Pain Scale: 0-10 Numeric Is Patient Pain Free? Yes Yes Yes WC - Visit Discharge Discharge Condition Stable Stable Stable Ambulatory Status Ambulatory Ambulatory Ambulatory Transportation Private Auto Private Auto Private Auto Additional Wound Wound debrided: Left lower extremity (posterior) Anesthesia Used: 4% Lidocaine Solution Depth: Down to and including healthy tissue and in the subcutaneous layer Percentage of wound debrided: 100 Instrument Used: 5mm curette Tissue Removed: Slough and devitalized tissue Severity: Fat Layer Exposed Amount of bleeding with debridement: Mild Bleeding Controlled with: Pressure Patient tolerated procedure: Patient tolerated procedure well Additional Wound Wound debrided: Right heel cluster Type of Debridement: Excisional debridement Anesthesia Used: 5% Lidocaine Gel Depth: Down to and including healthy tissue and in the subcutaneous layer Percentage of wound debrided: 100 Instrument Used: 5mm curette Tissue Removed: Slough and devitalized tissue Severity: Fat Layer Exposed Amount of bleeding with debridement: Mild Bleeding Controlled with: Pressure Patient tolerated procedure: Patient tolerated procedure well Assessment/Plan Assessment/Plan (1) Ulcer of left lower extremity with fat layer exposed: CODE(S): L97.922 - Non-pressure 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 layer exposed (2) Ulcer of right lower extremity with fat layer exposed: CODE(S): L97.912 - Non-pressure chronic ulcer of unspecified part of rightlower leg with fat layer exposed (3) Lymphedema: CODE(S): I89.0 - Lymphedema, not elsewhere classified (4) Homeless single person: CODE(S): Z59.0 - Homelessness PLAN: Plan Debridement done as documented above, procedure was well-tolerated. Continues to show good improvement. Continue Aquacel to open areas and Unna boot to both lower extremities. Come in on Sunday for nurse visit/change. Leg elevation,exercise as tolerated discussed, he voiced understanding. Total protein intake also recommended. His questions were answered and he was advised to call with any further questions or concerns. Follow-up with me in a week. This note was generated with [employer] dictation software. It may contain incorrectwords, spelling, and punctuation that were not noted in checking the note beforesigning. 10/20/22 1250 <Electronically signed by Franklyn Sanchez MD> Cosigner Signature (if applicable): CC: ~ Signed [facility] Work Phone: 1([phone] 878-479906-01-2023 Progress note Author Franklyn Sanchez [facility] October 12, 2022 10:39am Note Date/Time October 12, 2022 10:39 am [facility] [address] [place] [address] Progress Note - Wound Care 10/12/22 1036 MR#: [id number] Acct: [id number] Name: JAK TANNER Rep #:[id number] : 1955 67 From: Franklyn espinal MD PCP: Dr. Yajaira Heller Status:REG RC R Location: History of Present Illness Date of Service: 10/12/22 Chief Complaint: Bilateral lower extremity ulcers. History of Wound: Mr. Tanner is a 67 yo who was referred to the wound center due to bilateral lower extremity ulcer. Clinic history of lymphedema. He is currently homeless and has been living in his van. He states that over the recent months, he has been sitting a lot more is not as active as it should be. He also states that he has not been using his compression. [facility], he was started on antibiotics and has 1 more day of it. Tolerating antibiotic well. Initially had a lot of drainage from his ulcers but he states that this has improved. No known historyof diabetes. No chills, fever or feeling of unwell at this time. Progress of Wound: New right second toe ulcer but otherwise, previous ulcers have significantly improved. Edema has improved as well. Tolerated Unna boots well. Objective Data Objective Data Vital Signs: Vital Signs Temp Pulse Resp BP O2 Del Method 97.6 F L 94 16 140/69 H Room Air 10/12/22 08:59 10/12/22 08:59 10/12/22 08:59 10/12/22 08:59 10/12/22 08:59 Oxygen Delivery Method Room Air Weight: 340 lb Body Mass Index (BMI) 47.4 Charges/Coding Procedures Integumentary 111xxx-113xx: 72668 Magdalena subq tissue 20 sq cm/< Add On Codes: 59641 Magdalena subq tissue add-on (x3. Additional square centimeter debrided, please refer to clinical note) Physical Exam Const alert, oriented x3 and no apparent distress General Appearance: cooperative and comfortable HEENT normocephalic, head/scalp atraumatic and hearing grossly normal bilaterally Eyes EOMs intact bilaterally Neck full ROM Resp normal respiratory effort Effort and Inspection: able to speak in complete sentences Extremity General Extremity: edema Skin Wounds: wounds noted Neuro oriented x3, CN's II-XII intact bilaterally and moves all extremities Psych mental status grossly normal, thought process normal, cooperative and affect normal Debridement Note Debridement Note Wound debrided: Right second toe Type of Debridement: Excisional debridement Anesthesia Used: 5% Lidocaine Gel Depth: Down to and including healthy tissue and in the subcutaneous layer Percentage of wound debrided: 100 Instrument Used: 3mm curette Tissue Removed: Slough and devitalized tissue Severity: Fat Layer Exposed Amount of bleeding with debridement: Mild Bleeding Controlled with: Pressure Patient tolerated procedure: Patient tolerated procedure well Post-Debridement Measurements and Additional Note: Post-Debridement Measurements/Treatment - Nurse 1 - General Ulcer Assessment Start: 10/12/22 08:59 Freq: Status: Active Protocol: WILLIAM Activity Type Activity Date Activity User E-sign Co-sign Detail Recorded Client Recorded Date Recorded By Document 10/12/22 08:59 [facility] [id number] 10/12/22 09:18 [facility] 10/12/22 08:59 WC - Today's Visit Information Type of service Follow-up Visit (Physician/DOOR AND ARRIVAL ATTENDANT ) Arrival Mode Ambulatory Transfer Assistance None Patient Identification Verified (Name & Yes ) Patient Requires Transmission-Based No Precautions Height and Weight Body Mass Index (BMI) 47.4 BMI Classification Obese Vital Signs Temperature (97.8 F-99.1 F) 97.6 F L Temperature Source Temporal Pulse Rate (60-100) 94 Pulse Location Monitor Respiratory Rate (12-18) 16 Respiratory rate source Observation Oxygen Delivery Method Room Air Blood Pressure (90/60-120/80) 140/69 H Blood Pressure Mean (mm Hg) 92 Source Monitor Position Sitting Blood Pressure Location Right Arm History Since Last Visit- (Skip if this is Patient's initial visit) Have you changed medications since your No last visit? Any new allergies or adverse reactions No Had a fall/change in ADL's that may No increase risk of falls Signs or symptoms of abuse and/or No neglect since last visit Have you been in the hospital since your No last visit? Has dressing in place as prescribed Yes Has compression in place as prescribed Yes Has offloadiing in place as prescribed N/A Experienced any changes in pain level or No management Left Footwear Surgical Shoe with pressure relief insole Right Footwear Surgical Shoe with pressure relief insole Pain Scale: 0-10 Numeric Is Patient Pain Free? Yes [facility] Nurse 1 - General Ulcer Measurement Start: 10/12/22 08:59 Freq: Status: Active Protocol: Activity Type Activity Date Activity User E-sign Co-sign Detail Recorded Client Recorded Date Recorded By Document 10/12/22 08:59 [facility] [id number] 10/12/22 09:18 [facility] 10/12/22 08:59 Wound Center Nurse 1 #5- L LAT POST LEG -Combined with other wound No -Current Size (cm) - Length 0.1 -Current Size (cm) - Width 0.1 -Current Size (cm) - Depth 0.1 -Total Square Cm 0.01 -Date of Last Picture (Recall this 10/12/22 field) -Photo Taken Yes -Epithelialization Large 67-100% -Tunneling No -Undermining/Tunneling No -Circular Undermining No -Exudate Amt None Present -Texture (Marva-wound Skin Appearance) Assessed, Scarring -Moisture (Marva-wound Skin Appearance) Assessed,Dry/ Scaly -Color (Marva-wound Skin Appearance) Assessed -Ulcer Cleansing Soap and Water -Foul Odor after Cleansing No #3- L LAT ANKLE/FOOT -Combined with other wound No -Current Size (cm) - Length 0.1 -Current Size (cm) - Width 0.1 -Current Size (cm) - Depth 0.1 -Total Square Cm 0.01 -Date of Last Picture (Recall this 10/12/22 field) -Photo Taken Yes -Epithelialization Large 67-100% -Texture (Marva-wound Skin Appearance) Assessed -Moisture (Marva-wound Skin Appearance) Assessed -Color (Marva-wound Skin Appearance) Assessed -Temperature (Marva-wound Skin No Abnormality Appearance) (Pt Warm) -Tenderness on Palpation (Marva-wound No Skin Appearance) -Ulcer Cleansing Soap and Water -Foul Odor after Cleansing No #8- r 2nd toe -Combined with other wound No -Current Size (cm) - Length 0.5 -Current Size (cm) - Width 0.5 -Current Size (cm) - Depth 0.2 -Total Square Cm 0.25 -Date of Last Picture (Recall this 10/12/22 field) -Photo Taken Yes -Epithelialization None Present -Tunneling No -Undermining/Tunneling No -Circular Undermining No -Exudate Amt Small -Exudate Type Serosanguineous -Wound Margin Distinct, Outline Attached -Granulation Amt Small (1-33%) -Granulation Quality Red -Slough/Fibrin Yes -Necrosis Amt Large (67-100%) -Necrotic Tissue Type Adherent Slough -Texture (Marva-wound Skin Appearance) Assessed, Scarring -Moisture (Marva-wound Skin Appearance) Assessed -Color (Marva-wound Skin Appearance) Assessed, Erythema -Temperature (Marva-wound Skin No Abnormality Appearance) (Pt Warm) -Tenderness on Palpation (Marva-wound No Skin Appearance) -Ulcer Cleansing Soap and Water -Foul Odor after Cleansing No -Anesthetic Used 5% Lidocaine Gel #6- R LAT ANKLE cluster -Combined with other wound No -Current Size (cm) - Length 3 -Current Size (cm) - Width 7 -Current Size (cm) - Depth 0.1 -Total Square Cm 21 -Date of Last Picture (Recall this 10/12/22 field) -Photo Taken Yes -Epithelialization Small 1-33% -Tunneling No -Undermining/Tunneling No -Circular Undermining No -Exudate Amt Medium -Exudate Type Serosanguineous -Wound Margin Distinct, Outline Attached -Granulation Amt Medium (34-66%) -Slough/Fibrin Yes -Necrosis Amt Medium (34-66%) -Necrotic Tissue Type Adherent Slough -Texture (Marva-wound Skin Appearance) Assessed, Scarring -Moisture (Marva-wound Skin Appearance) Assessed -Color (Marva-wound Skin Appearance) Assessed, Hemosiderin Staining -Temperature (Marva-wound Skin No Abnormality Appearance) (Pt Warm) -Tenderness on Palpation (Marva-wound No Skin Appearance) -Ulcer Cleansing Soap and Water -Foul Odor after Cleansing No -Anesthetic Used 5% Lidocaine Gel #4- L POST LE -Combined with other wound No -Current Size (cm) - Length 0.2 -Current Size (cm) - Width 0.2 -Current Size (cm) - Depth 0.1 -Total Square Cm 0.04 -Date of Last Picture (Recall this 10/12/22 field) -Photo Taken Yes -Epithelialization Medium 34-66% -Tunneling No -Undermining/Tunneling No -Circular Undermining No -Exudate Amt Small -Exudate Type Serosanguineous -Wound Margin Distinct, Outline Attached -Granulation Amt Large (67-100%) -Granulation Quality Red -Slough/Fibrin Yes -Necrosis Amt Small (1-33%) -Necrotic Tissue Type Adherent Slough -Texture (Marva-wound Skin Appearance) Assessed, Scarring -Moisture (Marva-wound Skin Appearance) Assessed,Dry/ Scaly -Color (Marva-wound Skin Appearance) Assessed -Temperature (Marva-wound Skin No Abnormality Appearance) (Pt Warm) -Tenderness on Palpation (Marva-wound No Skin Appearance) -Ulcer Cleansing Soap and Water -Foul Odor after Cleansing No -Anesthetic Used 5% Lidocaine Gel WC - Nurse 2 - General Ulcer CM Notes Start: 10/12/22 08:59 Freq: Status: Active Protocol: Activity Type Activity Date Activity User E-sign Co-sign Detail Recorded Client Recorded Date Recorded By Document 10/12/22 09:31 MW [id number] 10/12/22 09:48 MW 10/12/22 09:31 Wound Center Nurse 2 #5- L LAT POST LEG -Time 09:33 -Correct Patient Yes -Correct Side, Site, Position Yes -Correct Procedure Yes -Procedure Performed No -Post Debridement (cm) - Length 0 -Post Debridement (cm) - Width 0 -Total Square (Post) (cm) 0 -Tunneling No -Undermining/Tunneling No -Circular Undermining No -Wound/Ulcer Outcome Healed- Epithelialized #3- L LAT ANKLE/FOOT -Time 09:35 -Correct Patient Yes -Correct Side, Site, Position Yes -Correct Procedure Yes -Procedure Performed No -Post Debridement (cm) - Length 0 -Post Debridement (cm) - Width 0 -Post Debridement (cm) - Depth 0 -Total Square (Post) (cm) 0 -Tunneling No -Undermining/Tunneling No -Circular Undermining No -Wound/Ulcer Outcome Healed- Epithelialized -Bleeding Controlled with Pressure,Silver Nitrate #8- r 2nd toe -Time 09:32 -Correct Patient Yes -Correct Side, Site, Position Yes -Correct Procedure Yes -Procedure Performed Yes -Type of Procedure Debridement -Clinical Debridement Subcutaneous -Tissue Removed Subcutaneous -Post Debridement (cm) - Length 0.8 -Post Debridement (cm) - Width 0.2 -Post Debridement (cm) - Depth 0.1 -Total Square (Post) (cm) 0.16 -Area of Debridement (cm) - Length 0.8 -Area of Debridement (cm) - Width 0.2 -Total Square (Area) (cm) 0.16 -Tunneling No -Undermining/Tunneling No -Circular Undermining No -Wound/Ulcer Outcome Not Healed -Ulcer Cleansing Rinsed/ Irrigated with Saline -Foul Odor after Cleansing No -Bioengineered Tissue No -Bleeding Controlled with Pressure -Treatment Response Procedure Tolerated Well -Offloading No -Debridement - Subq, 1st 20sq cm Yes -Debridement, SubQ, ea addt'l 20sq cm 3 or part thereof #6- R LAT ANKLE cluster -Time 09:33 -Correct Patient Yes -Correct Side, Site, Position Yes -Correct Procedure Yes -Procedure Performed Yes -Type of Procedure Debridement -Clinical Debridement Subcutaneous -Tissue Removed Subcutaneous -Post Debridement (cm) - Length 3.5 -Post Debridement (cm) - Width 8.0 -Post Debridement (cm) - Depth 0.1 -Total Square (Post) (cm) 28.00 -Area of Debridement (cm) - Length 3.5 -Area of Debridement (cm) - Width 8.0 -Total Square (Area) (cm) 28.00 -Tunneling No -Undermining/Tunneling No -Circular Undermining No -Wound/Ulcer Outcome Not Healed -Ulcer Cleansing Rinsed/ Irrigated with Saline -Foul Odor after Cleansing No -Bioengineered Tissue No -Bleeding Controlled with Pressure,Silver Nitrate -Treatment Response Procedure Tolerated Well -Offloading No -Debridement - Subq, 1st 20sq cm No #4- L POST LE -Time 09:34 -Correct Patient Yes -Correct Side, Site, Position Yes -Correct Procedure Yes -Procedure Performed Yes -Type of Procedure Debridement -Clinical Debridement Subcutaneous -Tissue Removed Subcutaneous -Post Debridement (cm) - Length 5.5 -Post Debridement (cm) - Width 4.0 -Post Debridement (cm) - Depth 0.1 -Total Square (Post) (cm) 22.00 -Area of Debridement (cm) - Length 5.5 -Area of Debridement (cm) - Width 4.0 -Total Square (Area) (cm) 22.00 -Tunneling No -Undermining/Tunneling No -Circular Undermining No -Wound/Ulcer Outcome Not Healed -Ulcer Cleansing Rinsed/ Irrigated with Saline -Foul Odor after Cleansing No -Bioengineered Tissue No -Bleeding Controlled with Pressure -Treatment Response Procedure Tolerated Well -Offloading No -Debridement - Subq, 1st 20sq cm No Pain Scale: 0-10 Numeric Is Patient Pain Free? Yes WC - Nurse 3 - General Ulcer D/C NN Start: 10/12/22 08:59 Freq: Status: Active Protocol: Activity Type Activity Date Activity User E-sign Co-sign Detail Recorded Client Recorded Date Recorded By Document 10/12/22 10:13 [facility] [id number] 10/12/22 10:15 [facility] 10/12/22 10:13 Wound Care Center Nurse 3 #8- r 2nd toe -Ulcer Cleansing Soap and Water -Foul Odor after Cleansing No -Primary Dressing Applied Aquacel Extra -Primary Dressing Covered/Secured with Dry Gauze, Secured with Tape -Aquacel Extra 0 #6- R LAT ANKLE cluster -Ulcer Cleansing Rinsed/ Irrigated with Saline -Foul Odor after Cleansing No -Primary Dressing Applied Aquacel Extra -Other Dressing unna -Aquacel Extra 1 #4- L POST LE -Ulcer Cleansing Rinsed/ Irrigated with Saline -Foul Odor after Cleansing No -Primary Dressing Applied Aquacel Extra -Other Dressing unna -Aquacel Extra 0 ble -Multi-Layered Wrap Application Unna Boot - Bilateral ($) Treatment Response Procedure Tolerated Well Pain Scale: 0-10 Numeric Is Patient Pain Free? Yes WC - Visit Discharge Discharge Condition Stable Ambulatory Status Ambulatory Transportation Private Auto Additional Wound Wound debrided: Left lower extremity (posterior) Anesthesia Used: 4% Lidocaine Solution Depth: Down to and including healthy tissue and in the subcutaneous layer Percentage of wound debrided: 100 Instrument Used: 5mm curette Tissue Removed: Slough and devitalized tissue Severity: Fat Layer Exposed Amount of bleeding with debridement: Mild Bleeding Controlled with: Pressure Patient tolerated procedure: Patient tolerated procedure well Additional Wound Wound debrided: Right heel cluster Type of Debridement: Excisional debridement Anesthesia Used: 5% Lidocaine Gel Depth: Down to and including healthy tissue and in the subcutaneous layer Percentage of wound debrided: 100 Instrument Used: 5mm curette Tissue Removed: Slough and devitalized tissue Severity: Fat Layer Exposed Amount of bleeding with debridement: Mild Bleeding Controlled with: Pressure Patient tolerated procedure: Patient tolerated procedure well Assessment/Plan Assessment/Plan (1) Ulcer of left lower extremity with fat layer exposed: CODE(S): L97.922 - Non-pressure 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 layer exposed (2) Ulcer of right lower extremity with fat layer exposed: CODE(S): L97.912 - Non-pressure chronic ulcer of unspecified part of rightlower leg with fat layer exposed (3) Lymphedema: CODE(S): I89.0 - Lymphedema, not elsewhere classified (4) Homeless single person: CODE(S): Z59.0 - Homelessness PLAN: Plan Debridement done as documented above, procedure was well-tolerated. New right second toe ulcer but otherwise, previous ulcers have improved. Edema has improved as well. Continue Aquacel to open areas and Unna boot to both lower extremities. Come in on Sunday for nurse visit/change. Leg elevation, exercise as tolerated discussed, he voiced understanding. Total protein intake also recommended. His questions were answered and he was advised to call with any further questions or concerns. Follow-up with me in a week. This note was generated with [employer]ation software. It may contain incorrectwords, spelling, and punctuation that were not noted in checking the note beforesigning. 10/12/22 1039 <Electronically signed by Franklyn Sanchez MD> Cosigner Signature (if applicable): CC: ~ Signed [facility] Work Phone: 1([phone] 169-167905-26-2023 History and physical note Author Dr. Sanchez [facility] October 06, 2022 11:48am Note Date/Time October 05, 2022 1:10p m [facility] [address] [place] [id number] H&P Exam - Wound Care 10/05/22 1252 MR#: [id number] Acct: [id number] Name: JAK TANNER Rep #:[id number] : 1955 67 From: Franklyn espinal MD PCP: Dr. Yajaira Heller Status:REG RC R Location: History of Present Illness Date of Service: 10/05/22 Chief Complaint: Bilateral lower extremity ulcers. History of Wound: Mr. Tanner is a 67 yo who was referred to the wound center due to bilateral lower extremity ulcer. Clinic history of lymphedema. He is currently homeless and has been living in his van. He states that over the recent months, he has been sitting a lot more is not as active as it should be. He also states that he has not been using his compression. [facility], he was started on antibiotics and has 1 more day of it. Tolerating antibiotic well. Initially had a lot of drainage from his ulcers but he states that this has improved. No known historyof diabetes. No chills, fever or feeling of unwell at this time. [facility] Medical History (Updated 10/05/22 @ 13:[address] Franklyn Sanchez MD) Lymphedema Ulcer of left lower extremity with fat layer exposed Ulcer of right lower extremity with fat layer exposed Home Medications bacitracin zinc 500 unit/gram topical ointment 1 applic topical BID PRN wounds #14 grams 09/22/22 [Rx Last Taken Unknown] furosemide 40 mg tablet (Lasix) 40 mg PO DAILY #30 tabs 09/22/22 [Rx Last Taken Unknown] potassium chloride 20 mEq tablet,extended release 20 meq PO BID #60 tabs 09/22/22 [Rx Last Taken Unknown] levofloxacin 500 mg tablet 500 mg PO DAILY #10 tabs 09/26/22 [Rx Last Taken Unknown] Allergy/AdvReac Type Severity Reaction Status Date / Time No Known Allergies Allergy Verified 10/05/22 09:41 Social History Smoking Status: Former smoker ROS Constitutional Constitutional: Denies excessive sweating, fatigue, fever(s), headache(s), lethargy or malaise Eyes Eyes: Denies change in eye color, change in vision, discharge from eye(s), discongugate gaze, double vision or dry eyes ENT HEENT: Denies headache(s), hearing loss, hoarseness, mouth pain, nasal congestion, nasal discharge or nasal obstruction Cardiovascular Cardiovascular: Reports edema; Denies cold extremities, cyanosis, diaphoresis, dizziness, dyspnea at rest or flutter in chest Respiratory/Chest Respiratory/Chest: Denies excessive phlegm production, hemoptysis, inability to speak, mouth breathing, nail bed cyanosis, productive cough or restlessness Gastrointestinal Gastrointestinal: Denies belching, chewing difficulty, constipation, dysphagia, nausea or vomiting Genitourinary Genitourinary: Denies abdominal discomfort, anuria, flank pain or itching Musculoskeletal Musculoskeletal: Reports extremity pain; Denies deformity, loss of height, muscle weakness, tingling or tremors Integumentary Integumentary: Reports wounds; Denies change in pigmentation, changing lesions, erythema, furuncle, hirsutism, jaundice or lesions Neurologic Neurologic: Denies dizziness, focal weakness, frequent falls, headache(s), lack of coordination, loss of vision, memory loss or numbness Psychiatric Psychiatric: Denies cognitive impairment, confusion, depression, difficulty concentrating, hallucinations, homicidal ideation or hopelessness Endocrine Endocrinology: Denies cold intolerance, deepening of the voice, excessive sweating, flushing, heat intolerance or palpitations Allergic/Immunologic Allergic/Immunologic: Denies lip swelling, rhinitis, throat swelling, tongue swelling or wheezing Vital Signs Vital Signs Vital Signs: 10/05/22 09:08 Temperature 97.9 F Temperature Source Temporal Respiratory Rate 16 Blood Pressure 138/98 H Blood Pressure Mean 111 Blood Pressure Source Monitor Blood Pressure Position Sitting Blood Pressure Location Left Forearm Oxygen Delivery Method Room Air Weight Weight: 340 lb Body Mass Index (BMI) 47.4 Physical Exam Const alert, oriented x3 and no apparent distress General Appearance: cooperative and comfortable HEENT normocephalic, head/scalp atraumatic and hearing grossly normal bilaterally Eyes EOMs intact bilaterally Neck full ROM Resp normal respiratory effort Effort and Inspection: able to speak in complete sentences Extremity General Extremity: edema Skin Wounds: wounds noted Neuro oriented x3, CN's II-XII intact bilaterally and moves all extremities Psych mental status grossly normal, thought process normal, cooperative and affect normal Debridement Note Debridement Note Wound debrided: Left lower extremity lateral Type of Debridement: Excisional debridement Anesthesia Used: 4% Lidocaine Solution Depth: Down to and including healthy tissue and in the subcutaneous layer Percentage of wound debrided: 100 Instrument Used: 5mm curette Tissue Removed: Slough and devitalized tissue Severity: Fat Layer Exposed Amount of bleeding with debridement: Mild Bleeding Controlled with: Pressure Patient tolerated procedure: Patient tolerated procedure well Post-Debridement Measurements and Additional Note: Post-Debridement Measurements/Treatment - Nurse 1 - General Ulcer Assessment Start: 10/05/22 08:49 Freq: Status: Active Protocol: WILLIAM Activity Type Activity Date Activity User E-sign Co-sign Detail Recorded Client Recorded Date Recorded By Document 10/05/22 09:08 [facility] [id number] 10/05/22 09:37 [facility] 10/05/22 09:08 - Today's Visit Information Type of service Follow-up Visit (Physician/DOOR AND ARRIVAL ATTENDANT ) Arrival Mode Ambulatory Transfer Assistance None Patient Identification Verified (Name & Yes ) Patient Requires Transmission-Based No Precautions Height and Weight Height 5 ft 11 in Weight 340 lb Weight in Pounds 340.0 lbs Weight Measurement Method Estimated by Patient Body Mass Index (BMI) 47.4 BMI Classification Obese BSA - Mark 2.64 Vital Signs Temperature (97.8 F-99.1 F) 97.9 F Temperature Source Temporal Respiratory Rate (12-18) 16 Respiratory rate source Observation Oxygen Delivery Method Room Air Blood Pressure (90/60-120/80) 138/98 H Blood Pressure Mean 111 Source Monitor Position Sitting Blood Pressure Location Left Forearm History Since Last Visit- (Skip if this is Patient's initial visit) Left Footwear Surgical Shoe with pressure relief insole Right Footwear Surgical Shoe with pressure relief insole Pain Scale: 0-10 Numeric Is Patient Pain Free? Yes Lower Extremity Assessment/ Foot Assessment/ Toe Nail Assessment Right -Lower Extremity Comment (If N/A Above SEVERE ) LYMPHEDEMA, DRY SCALY SKIN -Posterior Tibial Palpable No -Posterior Tibial Doppler Multiphasic -Dorsalis Pedis Palpable No -Dorsalis Pedis Doppler Multiphasic -Extremity Color Hyperpigmented -Hair Growth on Legs No -Hair Growth on Toes No -Temperature of Extremity Warm -Thick Yes -Discolored Yes -Deformed No -Improper Length & Hygeine Yes Left -Lower Extremity Comment (If N/A Above LYMPHEDEMA ) SEVERE UNABLE TO ASSESS POST TIB D/T THICK SCALY SKIN -Dorsalis Pedis Palpable No -Dorsalis Pedis Doppler Monophasic -Extremity Color Hyperpigmented -Hair Growth on Legs No -Hair Growth on Toes No -Temperature of Extremity Warm -Thick Yes -Discolored Yes -Deformed No -Improper Length & Hygeine Yes Communication Assessment Preferred language Divehi Cis Coordinator Required No Able to Read Yes Able to Write Yes Communication Tools None Right Hearing Abillity Normal Left Hearing Abillity Normal Visual Assistive Devices None Teaching Assessment Preferences Verbal,Written, Audio/Visual, Demonstration Barriers to Learning None Readiness To Learn Excellent Willingness to Engage in Self Management High Activies Readiness to Engage in Self Management High Activities Anxiety Level Calm Cooperation Cooperative Perception Coherent Interest in Health Problem Asks Questions Education Importance Acknowledges Need Does Patient Smoke tobacco or other No substances Smoking Status Former smoker Is Patient Diabetic No Functional Assessment Recent Decline in Ability to Perform Denies Any Declines Culture/Rastafari/Field Counsel Cultural/Rastafari Needs that may affect No Treatment Plan WC - Nurse 1 - General Ulcer Measurement Start: 10/05/22 08:49 Freq: Status: Active Protocol: Activity Type Activity Date Activity User E-sign Co-sign Detail Recorded Client Recorded Date Recorded By Document 10/05/22 09:08 [facility] [id number] 10/05/22 09:37 [facility] 10/05/22 09:08 Wound Center Nurse 1 #7 R HEEL -Combined with other wound No -Current Size (cm) - Length 1 -Current Size (cm) - Width 1.5 -Current Size (cm) - Depth 0.1 -Total Square Cm 1.5 -Date of Last Picture (Recall this 10/05/22 field) -Photo Taken Yes -Epithelialization None Present -Tunneling No -Undermining/Tunneling No -Circular Undermining No -Exudate Amt Medium -Exudate Type Serosanguineous -Wound Margin Distinct, Outline Attached -Granulation Amt Medium (34-66%) -Granulation Quality Red -Slough/Fibrin Yes -Necrosis Amt Medium (34-66%) -Necrotic Tissue Type Adherent Slough -Texture (Marva-wound Skin Appearance) Assessed, Scarring -Moisture (Marva-wound Skin Appearance) Assessed,Dry/ Scaly -Color (Marva-wound Skin Appearance) Assessed -Temperature (Marva-wound Skin No Abnormality Appearance) (Pt Warm) -Tenderness on Palpation (Marva-wound No Skin Appearance) -Ulcer Cleansing Soap and Water -Foul Odor after Cleansing No -Anesthetic Used 4% Lidocaine Solution #6- R LAT ANKLE cluster -Combined with other wound No -Current Size (cm) - Length 3.5 -Current Size (cm) - Width 2.8 -Current Size (cm) - Depth 0.2 -Total Square Cm 9.80 -Date of Last Picture (Recall this 10/05/22 field) -Photo Taken Yes -Epithelialization None Present -Tunneling No -Undermining/Tunneling No -Circular Undermining No -Exudate Amt Medium -Exudate Type Serous -Wound Margin Distinct, Outline Attached -Granulation Amt None Present (0 %) -Slough/Fibrin Yes -Necrosis Amt Large (67-100%) -Necrotic Tissue Type Adherent Slough -Texture (Marva-wound Skin Appearance) Assessed -Moisture (Marva-wound Skin Appearance) Assessed, Weeping -Color (Marva-wound Skin Appearance) Assessed -Temperature (Marva-wound Skin No Abnormality Appearance) (Pt Warm) -Tenderness on Palpation (Marva-wound No Skin Appearance) -Ulcer Cleansing Soap and Water -Foul Odor after Cleansing No -Anesthetic Used 4% Lidocaine Solution #5- L LAT POST LEG -Combined with other wound No -Current Size (cm) - Length 0.5 -Current Size (cm) - Width 0.6 -Current Size (cm) - Depth 0.1 -Total Square Cm 0.30 -Date of Last Picture (Recall this 10/05/22 field) -Photo Taken Yes -Epithelialization None Present -Tunneling No -Undermining/Tunneling No -Circular Undermining No -Exudate Amt Small -Exudate Type Serosanguineous -Wound Margin Distinct, Outline Attached -Granulation Amt Medium (34-66%) -Granulation Quality Red -Slough/Fibrin Yes -Necrosis Amt Medium (34-66%) -Necrotic Tissue Type Adherent Slough -Texture (Marva-wound Skin Appearance) Assessed, Scarring -Moisture (Marva-wound Skin Appearance) Assessed,Dry/ Scaly -Color (Marva-wound Skin Appearance) Assessed -Temperature (Marva-wound Skin No Abnormality Appearance) (Pt Warm) -Tenderness on Palpation (Marva-wound No Skin Appearance) -Ulcer Cleansing Soap and Water -Foul Odor after Cleansing No -Anesthetic Used 4% Lidocaine Solution #4- L POST LE -Combined with other wound No -Current Size (cm) - Length 3.5 -Current Size (cm) - Width 3.5 -Current Size (cm) - Depth 0.1 -Total Square Cm 12.25 -Date of Last Picture (Recall this 10/05/22 field) -Photo Taken Yes -Epithelialization None Present -Tunneling No -Undermining/Tunneling No -Circular Undermining No -Exudate Amt Medium -Exudate Type Serosanguineous -Wound Margin Distinct, Outline Attached -Granulation Amt Medium (34-66%) -Granulation Quality Red -Slough/Fibrin Yes -Necrosis Amt Medium (34-66%) -Necrotic Tissue Type Adherent Slough -Texture (Marva-wound Skin Appearance) Assessed, Scarring -Moisture (Marva-wound Skin Appearance) Assessed,Dry/ Scaly -Color (Marva-wound Skin Appearance) Assessed -Temperature (Marva-wound Skin No Abnormality Appearance) (Pt Warm) -Tenderness on Palpation (Marva-wound No Skin Appearance) -Ulcer Cleansing Soap and Water -Foul Odor after Cleansing No -Anesthetic Used 4% Lidocaine Solution ##- L LAT ANKLE/FOOT -Combined with other wound No -Current Size (cm) - Length 1.1 -Current Size (cm) - Width 2.1 -Current Size (cm) - Depth 0.1 -Total Square Cm 2.31 -Date of Last Picture (Recall this 10/05/22 field) -Photo Taken Yes -Epithelialization None Present -Tunneling No -Undermining/Tunneling No -Exudate Amt None Present -Wound Margin Distinct, Outline Attached -Granulation Amt Large (67-100%) -Granulation Quality Red -Slough/Fibrin No -Necrosis Amt None Present (0 %) -Texture (Marva-wound Skin Appearance) Assessed, Scarring -Moisture (Marva-wound Skin Appearance) Assessed,Dry/ Scaly -Color (Marva-wound Skin Appearance) Assessed, Hemosiderin Staining -Temperature (Marva-wound Skin No Abnormality Appearance) (Pt Warm) -Tenderness on Palpation (Marva-wound No Skin Appearance) -Ulcer Cleansing Soap and Water -Foul Odor after Cleansing No -Anesthetic Used 4% Lidocaine Solution Lower Limb Edema Present Yes Right Calf (cm) 59.7 Right Ankle (cm) 39.6 Left Calf (cm) 64 Left Ankle (cm) 40 WC - Nurse 2 - General Ulcer CM Notes Start: 10/05/22 08:49 Freq: Status: Active Protocol: Activity Type Activity Date Activity User E-sign Co-sign Detail Recorded Client Recorded Date Recorded By Document 10/05/22 09:58 MW [id number] 10/05/22 10:18 [facility] 10/05/22 09:58 Wound Center Nurse 2 #7 R HEEL -Time 09:59 -Correct Patient Yes -Correct Side, Site, Position Yes -Correct Procedure Yes -Procedure Performed No -Tunneling No -Undermining/Tunneling No -Circular Undermining No -Wound/Ulcer Outcome Converted #6- R LAT ANKLE cluster -Time 09:59 -Correct Patient Yes -Correct Side, Site, Position Yes -Correct Procedure Yes -Procedure Performed Yes -Type of Procedure Debridement -Clinical Debridement Subcutaneous -Tissue Removed Subcutaneous -Post Debridement (cm) - Length 5.0 -Post Debridement (cm) - Width 9.0 -Post Debridement (cm) - Depth 0.2 -Total Square (Post) (cm) 45.00 -Area of Debridement (cm) - Length 5.0 -Area of Debridement (cm) - Width 9.0 -Total Square (Area) (cm) 45.00 -Tunneling No -Undermining/Tunneling No -Circular Undermining No -Wound/Ulcer Outcome Not Healed -Ulcer Cleansing Rinsed/ Irrigated with Saline -Foul Odor after Cleansing No -Bioengineered Tissue No -Bleeding Controlled with Pressure -Treatment Response Procedure Tolerated Well -Offloading No -Debridement - Subq, 1st 20sq cm Yes -Debridement, SubQ, ea addt'l 20sq cm 4 or part thereof #5- L LAT POST LEG -Time 10:00 -Correct Patient Yes -Correct Side, Site, Position Yes -Correct Procedure Yes -Procedure Performed Yes -Type of Procedure Debridement -Clinical Debridement Subcutaneous -Tissue Removed Subcutaneous -Post Debridement (cm) - Length 1.3 -Post Debridement (cm) - Width 2.7 -Post Debridement (cm) - Depth 0.1 -Total Square (Post) (cm) 3.51 -Area of Debridement (cm) - Length 1.3 -Area of Debridement (cm) - Width 2.7 -Total Square (Area) (cm) 3.51 -Tunneling No -Undermining/Tunneling No -Circular Undermining No -Wound/Ulcer Outcome Not Healed -Ulcer Cleansing Rinsed/ Irrigated with Saline -Foul Odor after Cleansing No -Bioengineered Tissue No -Bleeding Controlled with Pressure -Treatment Response Procedure Tolerated Well -Offloading No -Debridement - Subq, 1st 20sq cm No #4- L POST LE -Time 10:00 -Correct Patient Yes -Correct Side, Site, Position Yes -Correct Procedure Yes -Procedure Performed Yes -Type of Procedure Debridement -Clinical Debridement Subcutaneous -Tissue Removed Subcutaneous -Post Debridement (cm) - Length 7.0 -Post Debridement (cm) - Width 5.5 -Post Debridement (cm) - Depth 0.1 -Total Square (Post) (cm) 38.50 -Area of Debridement (cm) - Length 7.0 -Area of Debridement (cm) - Width 5.5 -Total Square (Area) (cm) 38.50 -Tunneling No -Undermining/Tunneling No -Circular Undermining No -Wound/Ulcer Outcome Not Healed -Ulcer Cleansing Rinsed/ Irrigated with Saline -Foul Odor after Cleansing No -Bioengineered Tissue No -Bleeding Controlled with Pressure -Treatment Response Procedure Tolerated Well -Offloading No -Debridement - Subq, 1st 20sq cm No ##- L LAT ANKLE/FOOT -Time 10:01 -Correct Patient Yes -Correct Side, Site, Position Yes -Correct Procedure Yes -Procedure Performed Yes -Type of Procedure Debridement -Clinical Debridement Subcutaneous -Tissue Removed Subcutaneous -Post Debridement (cm) - Length 0.9 -Post Debridement (cm) - Width 2.1 -Post Debridement (cm) - Depth 0.1 -Total Square (Post) (cm) 1.89 -Area of Debridement (cm) - Length 0.9 -Area of Debridement (cm) - Width 2.1 -Total Square (Area) (cm) 1.89 -Tunneling No -Undermining/Tunneling No -Circular Undermining No -Wound/Ulcer Outcome Not Healed -Ulcer Cleansing Rinsed/ Irrigated with Saline -Foul Odor after Cleansing No -Bioengineered Tissue No -Bleeding Controlled with Pressure -Treatment Response Procedure Tolerated Well -Offloading No -Debridement - Subq, 1st 20sq cm No Pain Scale: 0-10 Numeric Is Patient Pain Free? Yes WC - Nurse 3 - General Ulcer D/C NN Start: 10/05/22 08:49 Freq: Status: Active Protocol: Activity Type Activity Date Activity User E-sign Co-sign Detail Recorded Client Recorded Date Recorded By Document 10/05/22 10:21 DL [id number] 10/05/22 10:23 DL 10/05/22 10:21 Wound Care Center Nurse 3 #6- R LAT ANKLE cluster -Ulcer Cleansing Soap and Water -Foul Odor after Cleansing No -Primary Dressing Applied Aquacel Extra -Aquacel Extra 1 #5- L LAT POST LEG -Ulcer Cleansing Soap and Water -Foul Odor after Cleansing No -Primary Dressing Applied Aquacel Extra -Aquacel Extra 1 #4- L POST LE -Ulcer Cleansing Soap and Water -Foul Odor after Cleansing No -Other Dressing aquacel EX ##- L LAT ANKLE/FOOT -Ulcer Cleansing Soap and Water -Foul Odor after Cleansing No -Other Dressing aquacel Ex gee -Multi-Layered Wrap Application Unna Boot - Bilateral ($) Treatment Response Procedure Tolerated Well Pain Scale: 0-10 Numeric Is Patient Pain Free? Yes WC - Visit Discharge Discharge Condition Stable Ambulatory Status Ambulatory Additional Wound Wound debrided: Left lower extremity (posterior) Anesthesia Used: 4% Lidocaine Solution Depth: Down to and including healthy tissue and in the subcutaneous layer Percentage of wound debrided: 100 Instrument Used: 5mm curette Tissue Removed: Slough and devitalized tissue Severity: Fat Layer Exposed Amount of bleeding with debridement: Mild Bleeding Controlled with: Pressure Patient tolerated procedure: Patient tolerated procedure well Additional Wound Wound debrided: Right heel cluster Type of Debridement: Excisional debridement Anesthesia Used: 5% Lidocaine Gel Depth: Down to and including healthy tissue and in the subcutaneous layer Percentage of wound debrided: 100 Instrument Used: 5mm curette Tissue Removed: Slough and devitalized tissue Severity: Fat Layer Exposed Amount of bleeding with debridement: Mild Bleeding Controlled with: Pressure Patient tolerated procedure: Patient tolerated procedure well Additional Wound Wound debrided: Left Foot ( lateral ) Type of Debridement: Excisional debridement Anesthesia Used: 4% Lidocaine Solution Depth: Down to and including healthy tissue and in the subcutaneous layer Percentage of wound debrided: 100 Instrument Used: 5mm curette Tissue Removed: Slough and devitalized tissue Charges/Coding Visit Charges Office Visits / Consults: [id number] OV L4 New Procedures Integumentary [id number]: [id number] Magdalena subq tissue 20 sq cm/< Add On Codes: 00810 Magdalena subq tissue add-on (x4. Additional square centimeter debrided, please refer to clinical note.) Assessment/Plan Assessment/Plan (1) Ulcer of left lower extremity with fat layer exposed: CODE(S): L97.922 - Non-pressure 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 layer exposed (2) Ulcer of right lower extremity with fat layer exposed: CODE(S): L97.912 - Non-pressure chronic ulcer of unspecified part of rightlower leg with fat layer exposed (3) Lymphedema: CODE(S): I89.0 - Lymphedema, not elsewhere classified (4) Homeless single person: CODE(S): Z59.0 - Homelessness PLAN: Plan Debridement done as documented above, procedure was well-tolerated. No culture was taken today, currently on antibiotics. Reassess need for culture at next visit. He is currently homeless and living out of his car, there will be difficulty getting wound supplies over to him. At his previous visits, he had done well with an Unna boot. Aquacel to open areas and Unna boot to both lower extremities. Come in on Sunday for nurse visit/change. Leg elevation, exercise as tolerated discussed, he voiced understanding. Total protein intake also recommended. His questions were answered and he was advised to call with any further questions or concerns. Follow-up with me in a week. This note was generated with [employer] (powering [employer])ation software. It may contain incorrectwords, spelling, and punctuation that were not noted in checking the note beforesigning. 10/06/22 1148 <Electronically signed by Franklyn Sanchez MD> Cosigner Signature (if applicable): CC: ~ Signed [facility] Work Phone: [phone] Mckenzie [facility] September 22, 2022 11:54am Note Date/Time September 22, 2022 8:26a m [facility] Medical Records Department [address] [place] [address] Emergency Department Summary 09/22/22 MR#: [id number] Acct: [id number] Name: JAK TANNER Rep #:[id number] : 1955 67 From: Cristhian Mckenzie MD PCP: Dr. Yajaira Heller Status:REG ER Location: ED HPI History of Present Illness Chief Complaint: Edema Informant: patient Narrative Narrative: Patient presenting with chronic edema to both of his legs he thinks they have been worse in the past 2 weeks, limiting his ability to stand and walk although he states he is still able and he walked in here. He states he is homeless and does not see a doctor and wants to get things started. He had seen wound careat 1 point in the past unknown how long ago. He has had a sore open wound either from rubbing on his shoe or from accidentally picking open a scab, on hisleft foot/ankle for about the past week. He denies any systemic symptoms or issues above the legs right now. He states he had a cough several weeks ago where he was coughing up sputum and then small amount of blood but all of that stopped and is better now. PFSH PFSH Medical History no medical history no medical history (Unknown due to not seeing a provider in a long time) Home Medications bacitracin zinc 500 unit/gram topical ointment 1 applic topical BID PRN wounds #14 grams 09/22/22 [Rx Last Taken Unknown] furosemide 40 mg tablet (Lasix) 40 mg PO DAILY #30 tabs 09/22/22 [Rx Last Taken Unknown] potassium chloride 20 mEq tablet,extended release 20 meq PO BID #60 tabs 09/22/22 [Rx Last Taken Unknown] Allergy/AdvReac Type Severity Reaction Status Date / Time No Known Allergies Allergy Verified 09/22/22 08:05 Social History Smoking Status: Never smoker ROS ROS ED Constitutional Constitutional ED: Denies chills or fever(s) Eyes Eyes: Denies change in vision or diplopia ENT ENT ED: Denies rhinorrhea or sore throat Cardiovascular Cardiovascular: Reports leg edema; Denies chest pain or palpitations Respiratory/Chest Respiratory/Chest: Denies cough or dyspnea Gastrointestinal Gastrointestinal: Denies abdominal pain, diarrhea, nausea or vomiting Genitourinary Genitourinary ED: Denies dysuria or hematuria Musculoskeletal Musculoskeletal: Reports as per HPI and extremity pain; Denies back pain or neckpain Integumentary Reports wounds; Denies abscess or rash Neurologic Neurologic: Denies headache(s), paresthesias or weakness Psychiatric Psychiatric: Denies anxiety or suicidal thoughts EXAM Physical Exam Const Vital Signs: 09/22/22 08:05 09/22/22 08:15 Temperature 97.8 F Temperature Source Temporal Pulse Rate 99 Respiratory Rate 16 Respiratory Effort Normal Non-Labored Blood Pressure 124/75 H Blood Pressure Mean 91 Pulse Ox 96 Oxygen Delivery Method Room Air Positive well nourished, well developed, obese and unkempt General Appearance ED: unkempt, well developed and NAD Nutritional Appearance: obese HEENT Reports moist mucous membranes normocephalic and atraumatic Eyes PERRL and EOMs intact bilaterally Neck full ROM and supple Resp normal respiratory effort and clear to auscultation bilaterally Cardio regular rate, regular rhythm and no murmurs Rate: Negative for tachycardic GI non-tender and non-distended Auscultation: normoactive bowel sounds Palpation: soft Back/Spine no CVA tenderness General Back: other FROM Extremity Extremity Narrative: Superficial ulcerated wound with some signs of granulation tissue about 5-6 cm? left dorsal-lateral ankle area, and another 1 on the back of his distal left calf. The exposed wounds themselves are a little sore but there is no surrounding tenderness/signs of cellulitis. There is also a nontender boggy area right heel that has some serosanguineous discharge from it. Otherwise, both of his lower extremities have severe chronic swelling, scabbing,signs of stasis dermatitis, and signs of elephantiasis with folds and creases inthe skin. General Extremety ED: Yes edema and tenderness; Negative for pulses abnormal General Extremity: edema bilateral lower extremity Details: severe; Negative forpulses abnormal Neuro oriented x3, CN's II-XII intact bilaterally and no sensory deficits noted Sensorium / Orientation: awake and alert Motor Exam: strength 5/5 throughout Psych Appearance: unkempt Skin no rashes or lesions noted and no wounds MDM MDM MDM Narrative Medical decision making narrative: Patient has severely chronic problems in his lower extremities, but except for the minor wound do not appear to be infected, none of it looks emergent. Basic labs are unremarkable except for slight hypokalemia, I did a BNP just because ofthe amount of edema he was having, it is well within normal limits arguing against acute decompensated congestive heart failure. I also did 2 view x-rays of each ankle, to capture the areas where the wounds were, on my interpretation there is swelling but no subcutaneous gas to suggest a necrotizing infection. Radiology interpretation was reviewed and they are in agreement. I give the patient Lasix while we were observing him, I think he is going to need this going forward and I will put him on potassium as well as referring him to wound care, but I am having social work see him to see if there is anything else they can offer him since I do not have a medical reason to admit him. We will also perform a dressing treatment for either of the wounds on his feet/ankles, and I am prescribing him antibiotic ointment to use topically for those to prevent infection. I did send a culture of the fluid coming out of the heel wound on the right foot. I do not think he needs antibiotics systemically at this time. Social work saw him and gave him some resources that hopefully will help, I willrefer him to PCP as well as wound care, nursing will give him some supplies to use with the prescribed bacitracin, as well as dressings here and instructions for discharge. Lab Data Attestation: I reviewed the patient's lab results. Labs: Laboratory Results - last 24 hr 09/22/22 09/22/22 09/22/22 08:50 08:50 08:50 WBC 8.9 RBC 4.45 L Hgb 12.5 L Hct 39.7 L MCV 89.2 MCH 28.1 MCHC 31.5 L RDW Std Deviation 45.7 H RDW Coeff of Thiago 14.1 Plt Count 236 MPV 10.0 Immature Gran % (Auto) 1.600 H Neut % (Auto) 79.6 H Lymph % (Auto) 9.5 L Bond % (Auto) 6.9 Eos % (Auto) 1.5 Baso % (Auto) 0.9 Absolute Neuts (auto) 7.1 Absolute Lymphs (auto) 0.84 Nucleated RBC % 0 Sodium 138 Potassium 3.2 L Chloride 103 Carbon Dioxide 30.0 Anion Gap 5 BUN 13 Creatinine 0.85 Estim Creat Clear Calc 87.36 Est GFR (MDRD) Af Amer 115 Est GFR (MDRD) Non-Af 95 BUN/Creatinine Ratio 15.4 Glucose 107 H Calcium 9.2 B-Natriuretic Peptide 24.2 Radiography Diagnostic Testing: Clinical Impression(s) from Imaging Studies Ankle X-Ray 09/22/22 09:16 IMPRESSION: Diffuse soft tissue swelling. Electronically Signed: Ferny Estrada MD at 9:44 EDT , Ankle X-Ray 09/22/22 09:20 IMPRESSION: Diffuse soft tissue swelling. 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 Discharge Plan Triage Chief Complaint: Edema ED Provider: Cristhian Mckenzie Dx/Rx/DC Orders Clinical Impression: Lymphedema of both lower extremities, Open wound of foot excluding toes withoutcomplication, Hypokalemia Instructions: Hypokalemia Dc, ED Lymphedema Prescriptions: New furosemide [Lasix] 40 mg tablet 40 mg PO DAILY Qty: 30 0RF potassium chloride 20 mEq tablet extended release 20 meq PO BID Qty: 60 0RF bacitracin zinc 500 unit/gram ointment 1 applic topical BID PRN (Reason: wounds) Qty: 14 0RF Primary Care Provider: Yajaira Heller Referrals: Wound Health [Outside] Yajaira Heller [Primary Care Provider] - Activity Restrictions/Additional Instructions: Follow nurses instructions regarding dressing changes to your foot wounds. Change the dressings twice daily at least, applying a small amount of the prescription antibiotic ointment to the dressing with each change. Disposition Disposition: Home, Self Care What to do if you have Problems For any increased pain, shortness of breath, bleeding, nausea or vomiting, chestpain, or any unexpected problems, contact your Primary Care Provider. Call [facility] ([phone]) or report to the closest Emergency Room. Call 911 if necessary. 09/22/22 1154 <Electronically signed by Cristhian Mckenzie MD> Cosigner Signature (if applicable): CC: Dr. Yajaira Heller; Wound Center ~ Signed [facility] Work Phone: Evaluation noteNo assessment information available [facility] Work Phone: Evaluation note* Diagnosis Onset Date Resolution Status Homeless single person acute Lymphedema acute Ulcer of left lower extremity with fat layer exposed acute Ulcer of right lower extremity with fat layer exposed acute [facility] Work Phone: Evaluation note* Diagnosis Onset Date Resolution Status Homeless single person acute Lymphedema acute Ulcer of left lower extremity with fat layer exposed acute Ulcer of right lower extremity with fat layer exposed acute Homeless single person acute Lymphedema acute Ulcer of left lower extremity with fat layer exposed acute Ulcer of right lower extremity with fat layer exposed acute [facility] Work Phone: Evaluation note* Diagnosis Onset Date Resolution Status Homeless single person acute Lymphedema acute Ulcer of left lower extremity with fat layer exposed acute Ulcer of right lower extremity with fat layer exposed acute Homeless single person acute Lymphedema acute Ulcer of left lower extremity with fat layer exposed acute Ulcer of right lower extremity with fat layer exposed acute Homeless single person acute Lymphedema acute Ulcer of left lower extremity with fat layer exposed acute Ulcer of right lower extremity with fat layer exposed acute [facility] Work Phone: Evaluation note* Diagnosis Onset Date Resolution Status Acute hypokalemia acute Cellulitis of foot, left acu te Lymphedema acute [facility] Work Phone: Hospital Discharge instructions Additional Instructions Follow nurses instructions regarding dressing changes to your foot wounds. Change the dressings twice daily at least, applying a small amount of the prescription antibiotic ointment to the dressing with each change.[facility] Work Phone: Hospital Discharge instructions Additional Instructions Follow-up at the [facility] for wound evaluation in 2 days. Do not remove the dressing until seen at the wound center.[facility] Work Phone: Chief Complaint and Reason for Visit Chief Complaint swelling Chief Complaint swelling WOUND WOUND Reason for Visit Homeless single pers on Lymphedema Ulcer of left lower extremity with fat layer exposed Ulcer of right lower extremity with fat layer exposed Chief Complaint swelling WOUND WOUND WOUND WOUND WOUND WOUND WOUND Reason for Visit Homeless single pers on Lymphedema Ulcer of left lower extremity with fat layer exposed Ulcer of right lower extremity with fat layer exposed Homeless single person Lymphedema Ulcer of left lower extremity with fat layer exposed Ulcer of right lower extremity with fat layer exposed Chief Complaint swelling WOUND WOUND WOUND WOUND WOUND WOUND WOUND WOUND WOUND Reason for Visit Homeless single pers on Lymphedema Ulcer of left lower extremity with fat layer exposed Ulcer of right lower extremity with fat layer exposed Homeless single person Lymphedema Ulcer of left lower extremity with fat layer exposed Ulcer of right lower extremity with fat layer exposed Homeless single person Lymphedema Ulcer of left lower extremity with fat layer exposed Ulcer of right lower extremity with fat layer exposed Chief Complaint wound, edema Chief Complaint wound, edema WOUND LEFT FOOT CELLULITIS, HYPOKALEMIA Reason for Visit Acute hypokalemia Cellulitis of foot, left Lymphedema Chief Complaint wound, edema WOUND LEFT FOOT CELLULITIS, HYPOKALEMIA LEFT FOOT CELLULITIS, HYPOKALEMIA Reason for Visit Acute hypokalemia Cellulitis of foot, left Lymphedema Advance Directives No Advanced Directives Records Found Advance Directive Response Recorded Date/ Time Living Will No September 22, 2022 8 :19am Power of Tread 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 Machine 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 No September 22, 2022 8:19am Advance Directive Response Recorded Date/ Time Living Will No July 02 4:01pm Power of Tread Tuber Machine Operator No July 02, 2023 4:01pm Advance Directive Response Recorded Date/ Time Living Will No June 024 3:04pm Power of Tread Tuber Machine Operator No July 12, 2023 3:04pm Advance Directive Response Recorded Date/ Time Living Will No June 5:23pm Power of Tread Tuber Machine Operator No July 12, 2023 5:23pm Summary Purpose Family History No Family History Records Found Additional Source Comments Care Teams (unrecognized sec tion and content) Team Status: Active Member Role Status Dates Dr. Yajaira Heller Primary Care Provider Active Team Status: Active Member Role Status Dates Dr. Yajaira Heller Primary Care Provider, Referring P rovider Active Dr. Franklyn Sanchez MD Attending Provider, Other Pr ovider Active Team Status: Inactive Member Role Status Dates Dr. Yajaira Heller Primary Care Provider Active Dr. Cristhian Mckenzie MD Attending Provider, Emergency Provider Active Team Status: Inactive Member Role Status Dates Dr. Yajaira Heller Primary Care Provider, Referring P rovider Active Dr. Franklyn Sanchez MD Attending Provider Active Team Status: Inactive Member Role Status Dates Dr. Yajaira Heller Primary Care Provider Active Dr. Cristhian Mckenzie MD Emergency Provider Active Team Status: Active Member Role Status Dates [facility] Primary Care Provider A ctive Team Status: Inactive Member Role Status Dates Dr. Marcus Sandoval MD Emergency Provider Active [facility] Primary Care Provider A ctive Team Status: Inactive Member Role Status Dates Dr. Marcus Sandoval MD Attending Provider, Emergency Provi john Active [facility] Primary Care Provider A ctive Team Status: Active Member Role Status Dates [facility] Primary Care Provider, Referring Provider Active BECKY Singer Attending Provider Active Team Status: Active Member Role Status Dates [facility] Primary Care Provider A ctive Dr. Remus Ungur , DO Emergency Provider Active Dr. Danis Velez , DO Admit Provider, Attending Pro vider Active Dr. Alejandro Sanders DPM Other Provider Active Team Status: Active Member Role Status Dates [facility] Primary Care Provider A ctive Dr. Nicola De Leon , DO Emergency Provider Active Dr. Danis Velez , DO Admit Provider, Attending Provider, Other Provider Active Dr. Alejandro Sanders DPM Other Provider Active Team Status: Inactive Member Role Status Dates [facility] Primary Care Provider, Referring Provider Active BECKY Singer Attending Provider Active Goals (unrecognized section and content) Goals may be documented in a n alternate sectionGoals may be documented in an alternate sectionGoals may be documented in an alternate sectionGoals may be documented in an alternate section (unrecognized sect ion and content) No Status Records Found INFORMATION SOURCE (unrecogn ized section and content) DATE CREATED AUTHOR 06/25/2024 [facility] FOR RECORDS PERTAINING TO PATIENTS WHO ARE OR HAVE BEEN ENROLLED IN A CHEMICAL DEPENDENCY/SUBSTANCEABUSE PROGRAM, SOME INFORMATION MAY BE OMITTED. This clinical summary was aggregated from multiple sources. Caution should be exercised in using it in the provision of clinical care. This summary normalizes information from multiple sources, and as a consequence, information in this document may materially change the coding, format and clinical context of patient data. In addition, data may be omitted in some cases. CLINICAL DECISIONS SHOULD BE BASED ON THE PRIMARY CLINICAL RECORDS. [facility]. provides no warranty or guarantee of the accuracy or completeness of information in this document.
[2025-01-22 03:08] LABS: Magnesium 2.1 mg/dL (1.5-2.2)
[2025-01-22 03:09] LABS: AST(SGOT) 124 U/L (<=37); Alanine Aminotransfer ALT/SGPT 50 U/L (<=46); Alkaline Phosphatase 67 U/L (40-129); Anion Gap 16 (5-15); BUN 59 mg/dL (4-19); BUN/Creat Ratio 16.5 RATIO (10-20); Bilirubin, Direct 1.16 mg/dL (0.00-0.30); Calcium,Total 7.2 mg/dL (7.6-11.0); Carbon Dioxide 18.1 mmol/L (21.0-32.0); Chloride 95 mmol/L (98-108); Estimated Creatinine Clearance 30.43 ml/min (50-250); Glucose 121 mg/dL (70-99); Potassium 4.1 mmol/L (3.3-5.1); Pro- Brain NATRIURETIC PEPTIDE 1427 pg/mL (<=900); Procalcitonin 1.73 ng/mL (<=0.10)
--- NOTE | 2025-01-22 03:17 | ED.RN ---
Upon arrival via EMS, pt was covered in feces and maggots in several wounds. Pt placed straight into decon room from EMS. Triage and other documentation delayed d/t this procedure.
[2025-01-22] MEDS: 0.9% Normal Saline (1000mL) 1,000 ML 150 ML IV (04:14)
[2025-01-22 04:18] LABS: Reflex Lactate? Y
--- NOTE | 2025-01-22 04:33 | PCA ---
[facility] and [facility] [place] for possible transfer. All unable to take pt due to lack of ICU beds. [facility] ED ([facility]) accepted ED to ED @ [address] Mendez. No nurse to nurse report phone number given, transfer center stated they would relay all pertinent information to their ED. They also stated if any changes in pt status or if we experience any significant delays in transport to call the transfer center. Called [facility] @ 0425, spoke to Lore. She stated ETA would be [phone] at their very best. This flavorings compounder inquired about outsourcing or moving pt ride up due to acuity, she stated outsourcing resources have been exhausted for the night, and unless he were made stat priority they had no ability to move ETA. This flavorings compounder let her know pt is stat priority, the new ETA was moved up to 0700. Physician's called back [phone] to let us know if pt would not be on antibiotics at time of transport the most up to date ETA would be 0630 or possibly sooner as the crew comes on at 0600. This flavorings compounder also called [facility] to inquire about ground transport, they stated they would not have availability until later this afternoon. Also called [facility] for the same,they called back @ 0503 to let us know they don't have any availability sooner than Physician[facility] could be here.
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
[2025-01-22] MEDS: Digoxin 250 MCG/ML Ampul 500 MCG IV (05:28)
--- NOTE | 2025-01-22 06:05 | EKG12_ITS ---
Test Reason : A-FIB Blood Pressure : */* mmHG Vent. Rate : 118 BPM Atrial Rate : 241 BPM P-R Int : * ms QRS Dur : 96 ms QT Int : 408 ms P-R-T Axes : * -16 42 degrees QTcB Int : 571 ms Critical Test Result: Long QTc Atrial fibrillation with rapid ventricular response Nonspecific ST and T wave abnormality Prolonged QT Abnormal ECG When compared with ECG of 13-Jul-2023 05:36, Atrial flutter has replaced Atrial fibrillation Confirmed by Austin Ryan ([id number]), marketing editor ELVA YIP ([id number]) on 01/27/2025 5:48:47 AM Referred By: CLAUDIA Confirmed By: Austin Ryan
[2025-01-22 06:32] LABS: Albumin, Serum 2.4 g/dL (3.4-4.8); Globulin 3.5 g/dL (2.2-4.2)
[2025-01-22 06:44] LABS: CPK Total, Creatine Kinase 3791 U/L (24-195)
--- NOTE | 2025-01-22 15:25 | ED.RN ---
Preliminary blood culture results called to Cherrie GUERRA at [facility] for gram negative rods.
--- NOTE | 2025-01-22 23:49 | CT_ITS ---
PROCEDURE: EXTREMITY LOWER WITHOUT CONTRA 01/22/2025 REASON FOR EXAM: WOUND TECHNIQUE: Procedure Code: CTELWO Modality: CT Procedure: EXTREMITY LOWER WITHOUT CONTRA Coronal and Sagittal reconstruction series were provided. CONTRAST: VOLUME: mL One or more dose reduction techniques were used (e.g., Automated exposure control, adjustment of the mA and/or kV according to patient size, use of iterative reconstruction technique). FINDINGS: Subcutaneous emphysema is noted in the medial aspect of the left gluteus, adjacent to the gluteal cleft, and extends into the perineum. No focal fluid collection to suggest an abscess. Subcutaneous fat stranding is noted throughout the left thigh, nonspecific. No acute fracture. Moderate degenerative changes are noted in the pubic symphysis, and mild degenerative changes are noted within both hips. Severe degenerative changes are noted in the left knee, particularly the medial compartment. The remainder of the unenhanced CT appearance of the left thigh appears unremarkable. CT/Extremity Lower without Contra IMPRESSION: 1. Subcutaneous emphysema in the medial aspect of the left gluteus and extends to the perineum. No CT evidence of an abscess. 2. Nonspecific subcutaneous fat stranding throughout the left thigh. 3. Severe degenerative changes affecting the left knee, moderate degenerative changes of the pubic symphysis, and mild degenerative changes of both hips. Reading Location: [id number]
== END 2025-01-22 07:10 | disposition short-term general hospital (02) ==
PROVIDERS: Emergency Provider Emergency Medicine; Visit Provider Emergency Medicine
DX: A41.9 Sepsis, unspecified organism (principal); I96 Gangrene, not elsewhere classified; L89.152 Pressure ulcer of sacral region, stage 2; I50.9 Heart failure, unspecified; I48.0 Paroxysmal atrial fibrillation; E66.01 Morbid (severe) obesity due to excess calories; Z59.02 Unsheltered homelessness; B87.1 Wound myiasis; I89.0 Lymphedema, not elsewhere classified; N17.9 Acute kidney failure, unspecified; N39.0 Urinary tract infection, site not specified; M62.82 Rhabdomyolysis; S71.102A Unspecified open wound, left thigh, initial encounter; X58.XXXA Exposure to other specified factors, initial encounter; F32.A Depression, unspecified; Z79.01 Long term (current) use of anticoagulants; Z79.899 Other long term (current) drug therapy; Z87.891 Personal history of nicotine dependence
CPT/HCPCS: 71045; 73700; 80048; 80076; 81001; 82550; 83605; 83735; 83880; 84145; 85025; 87040; 87077; 87086; 87186; 93005; 96361; 96365; 96366; 96367; 96375; 99285; A4216

== ENCOUNTER → 2025-04-02 | Outpatient (REF) | payer MEDICARE, MEDICAID, SELFPAY ==
[2025-04-02 10:23] LABS: Hematocrit 35.7 % (40-54); Hemoglobin 11.1 g/dL (13.0-16.5); Mean Corp Hgb Conc 31.1 g/dL (32-36); Mean Corpuscular Volume 89.3 fL (80-94); Mean Platelet Vol. 9.4 fl (6.2-12.0); Platelet Count 284 K/mm3 (150-450); RBC Distribution Width CV 13.2 % (11.6-14.6); RBC Distribution Width SD 43.4 fl (35.1-43.9); Red Blood Count 4.00 M/mm3 (4.6-6.2); White Blood Count 5.1 K/mm3 (4.4-11.0)
[2025-04-02 10:44] LABS: AST(SGOT) 21 U/L (<=37); Alanine Aminotransfer ALT/SGPT 7 U/L (<=46); Albumin, Serum 2.8 g/dL (3.4-4.8); Alkaline Phosphatase 59 U/L (40-129); Anion Gap 9 (5-15); BUN 6 mg/dL (4-19); BUN/Creat Ratio 13.0 RATIO (10-20); Calcium,Total 8.6 mg/dL (7.6-11.0); Carbon Dioxide 27.2 mmol/L (21.0-32.0); Chloride 103 mmol/L (98-108); Globulin 4.1 g/dL (2.2-4.2); Glucose 88 mg/dL (70-99); Potassium 3.6 mmol/L (3.3-5.1)
== END ==
LOC: OLS.SW 08:00
PROVIDERS: Visit Provider Family Medicine
DX: M72.6 Necrotizing fasciitis (principal); Z79.899 Other long term (current) drug therapy
CPT/HCPCS: 36415; 80053; 85027

== ENCOUNTER → 2025-04-08 05:00 | Outpatient (REF) | payer MEDICARE, MEDICAID, SELFPAY ==
--- OUTSIDE RECORDS SUMMARY | 2025-04-08 04:06 | XMS RPT_ITS | CCD ---
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 Toño Heller Primary Care Provider Dr. Toño Heller Referring Provider Dr. Franklyn Sanchez Attending Provider Dr. Franklyn Sanchez Other Provider [facility] Pina Primary Care Pro vider Dr. Nicola De Leon Emergency Provider Dr. Danis Velez Admit Provider Dr. Danis Velez Attending Provider Dr. Danis Velez Other Provider Dr. Alejandro Sanders Other Provider [facility], [place] Pina Primary Care Pro vider Dr. See Bee DO Emergency Provider SYSTEM, PROVIDER NOT IN Referring Unavaila ble ALAN CLAIRE Primary Care Unavailable [facility] Consulting KEITH Lozano Attending Unavailable PEYMAN RODRIGEZ Admitting Unavailable JAGJIT GONZALES Consulting UnavailDAGMAR Springer Consulting Unavaila ble SYSTEM, PROVIDER NOT IN Referring Unavaila ble SYSTEM, PROVIDER NOT IN Admitting Unavaila ble ALAN CLAIRE Primary Care Unavailable Alyssa Nguyen Attending Unavailable lAyssa Nguyen Referring Unavailable [facility], [place]ina Primary Care Unavailable See Bee Attending Unavailable [facility] [place], [facility] Primary Care Unavailable Myles Rebollar Attending Unavailable Alejandro Sanders Referring Unavailable [facility] [place], [facility] Primary Care Unavailable Alejandro Sanders Referring Unavailable [facility], [facility] Primary Care Unavailable Myles Rebollar Attending Unavailable [facility] [place], [facility] Primary Care Unavailable Dae Goff Attending Unavailable [facility] Primary Care Unavailable Dae Goff Attending Unavailable [facility] [place], [facility] Primary Care Unavailable Alyssa Nguyen Attending Unavailable Alyssa Nguyen Attending Unavailable [facility] [place], [facility] Primary Care Unavailable Alyssa Nguyen Attending Unavailable Alyssa Nguyen Referring Unavailable [facility], [facility] Primary Care Unavailable [facility] [place] Attending Unavailable [facility] [place], [facility] Unavailable Medications Current Medications Medication Drug Class(es) Dates Sig (Normalized) Sig (Original) acetaminophen 325 mg oral tablet (1 source) Start: 07-17-2023 Acetaminophen 325 mg Tablet Active 650 mg PO EVERY 6 HOURS NEEDED as needed for Pain 1-10 Or Fever >100.7 0 July 17, 2023 1:00am apixaban 5 mg oral tablet (1 source) Factor Xa Inhibitor Start: 07-17-2023 take 1 tablet by mouth twice daily Apixaban 5 mg tablet Active 5 mg PO TWICE A DAY 60 0 July 17, 2023 1:00am furosemide 40 mg oral tablet (8 sources) Loop Diuretic Start: 09-22-2022 take 1 tablet by mouth once daily Furosemide (Lasix) 40 mg tablet Active 40 mg PO DAILY 30 September 22, 2022 12:00am metoprolol tartrate 25 mg oral tablet (1 source) beta-Adrenergic Titus Start: 07-17-2023 take 1 tablet by mouth twice daily Metoprolol Tartrate 25 mg Tablet Active 25 mg PO TWICE A DAY 60 0 July 17, 2023 1:00am microencapsulated potassium chloride 20 meq extended release oral tablet (9 sources) Start: 07-17-2023 take 1 tablet by mouth once daily Potassium Chloride 20 mEq tablet,ER particles/crystals Active 20 meq PO DAILY 30 0 July 17, 2023 1:00am Start: 09-22-2022 End: 07-02-2023 take 1 tablet by mouth twice daily Potassium Chloride 20 mEq tablet extended release Discontinued 20 meq PO TWICE A DAY 60 0 September 22, 2022 12:00am July 02, 2023 5:09pm sennosides, long-term 8.6 mg oral capsule (1 source) Start: 10-10-2023 take 1 capsule by mouth once daily Sennosides (Senna) 8.6 mg capsule Active 8.6 mg PO DAILY October 10, 2023 12:00am spironolactone 25 mg oral tablet (1 source) Aldosterone Antagonist Start: 10-10-2023 take 1 tablet by mouth once daily Spironolactone 25 mg tablet Active 25 mg PO DAILY October 10, 2023 12:00am Completed/Discontinued Medications Medication Drug Class(es) Dates Sig (Normalized) Sig (Original) amoxicillin 875 mg / clavulanate 125 mg oral tablet (2 sources) Penicillin-class Antibacterial Start: 03-18-2024 End: 01-22-2025 Amoxicillin-Pot Clavulanate 875-125 mg tablet Discontinued 1 {tbl} PO TWICE A DAY 28 14 0 March 18, 2024 1:00am January 22, 2025 1:47am Start: 11-21-2023 End: 03-18-2024 Amoxicillin-Pot Clavulanate 875-125 mg tablet Discontinued 1 {tbl} PO Q12H 28 14 0 November 21, 2023 12:00am March 18, 2024 10:03am bacitracin zinc 0.5 unt/mg topical ointment (8 sources) Start: 09-22-2022 End: 07-02-2023 Bacitracin Zinc 500 unit/gra m ointment Discontinued 1 NMA TOPICAL TWICE A DAY as needed for wounds 14 0 September 22, 2022 10:18am July 02, 2023 5:09pm Start: 09-22-2022 End: 07-02-2023 Bacitracin Zinc Discontinued 1 APPLIC TOPICAL TWICE A DAY 14 September 22, 2022 9:18am July 02, 2023 4:09pm ciprofloxacin 750 mg oral tablet (3 sources) Quinolone Antimicrobial Start: 11-24-2023 End: 03-18-2024 take 1 tablet by mouth twice daily Ciprofloxacin Hcl 750 mg tablet Discontinued 750 mg PO TWICE A DAY 14 7 0 December 12, 2023 12:00am March 18, 2024 10:03am levoFLOXacin 500 mg oral tablet (7 sources) Quinolone Antimicrobial Start: 09-26-2022 End: 07-02-2023 take 1 tablet by mouth once daily Levofloxacin 500 mg tablet Discontinued 500 mg PO DAILY 10 0 September 26, 2022 12:00am July 02, 2023 5:09pm Menthol / Zinc Oxide (1 source) Start: 07-17-2023 End: 10-10-2023 Menthol-Zinc Oxide (Calmoseptine) 0.44-20.6 % Ointment Discontinued 1 NMA TOPICAL TWICE A DAY 0 July 17, 2023 1:00am October 10, 2023 2:49pm Please contact the information source for Protocol details. miconazole nitrate 0.02 mg/mg topical powder (1 source) Azole Antifungal Start: 07-17-2023 End: 10-10-2023 Miconazole Nitrate (Desenex) 2 % Powder Discontinued 1 NMA TOPICAL TWICE A DAY 0 July 17, 2023 1:00am October 10, 2023 2:50pm Please contact the information source for Protocol details. piperacillin 3000 mg / tazobactam 375 mg injection (1 source) Penicillin-class Antibacterial, beta Lactamase Inhibitor Start: 07-17-2023 End: 10-10-2023 Piperacillin-Tazoba ctam 3.375 gram recon soln Discontinued 3.375 g IV Q8H 40 July 17, 2023 1:00am October 10, 2023 2:50pm stop date 08/26/23. dx: foot osteomyelitis. Weekly bmp, cbc, and esr. Fax to [phone]. routine picc care per protocol. Problems Active Problems Problem Classification Problem Date Documented Date Episodic/Chronic Acute and unspecified renal failure (3 sources) Acute renal failure syndrome; Translations: [Acute kidney failure, unspecified] Onset: 01-22-2025 01-22-2025 Episodic Administrative/social admission (18 sources) Homeless single person; Translations: [Homeless single person] 10-15-2019 Episodic Cardiac dysrhythmias (1 source) Paroxysmal atrial fibrillation; Translations: [Paroxysmal atrial fibrillation] 01-22-2025 Chronic Chronic ulcer of skin (20 sources) Ulcer of lower extremity; Translations: [Non-pressure 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 layer exposed] Onset: 06-20-2024 10-05-2022 Chronic Fluid and electrolyte disorders (13 sources) Hypokalemia; Translations: [Hypokalemia] 09-22-2022 Episodic Malaise and fatigue (1 source) Weakness; Translations: [Weakness] Onset: 03-04-2025 Episodic Open wounds of extremities (20 sources) Open wound of foot except toes without complication; Translations: [Unspecified open wound, unspecified foot, initial encounter] 09-22-2022 Episodic Other circulatory disease (1 source) Peripheral vascular disease; Translations: [Other specified peripheral vascular diseases] 10-10-2023 Chronic Other circulatory disease (4 sources) Elevated blood-pressure reading without diagnosis of hypertension; Translations: [Elevated blood-pressure reading, without diagnosis of hypertension] 07-02-2023 Episodic Other connective tissue disease (8 sources) Swelling of right lower limb; Translations: [Other specified soft tissue disorders] 10-15-2019 Episodic Other connective tissue disease (2 sources) Rhabdomyolysis; Translations: [Rhabdomyolysis] Onset: 01-22-2025 01-22-2025 Episodic Other connective tissue disease (2 sources) Other specified soft tissue disorders; Translations: [Other specified soft tissue disorders] Onset: 01-22-2025 Episodic Other connective tissue disease (1 source) Rhabdomyolysis; Translations: [Rhabdomyolysis] Onset: 01-22-2025 Episodic Other diseases of veins and lymphatics (8 sources) Lymphedema of bilateral lower limbs; Translations: [Lymphedema, not elsewhere classified] 09-22-2022 Chronic Other diseases of veins and lymphatics (7 sources) Lymphedema; Translations: [Lymphedema, not elsewhere classified] 10-05-2022 Chronic Other diseases of veins and lymphatics (8 sources) Lymphedema, not elsewhere classified; Translations: [Other lymphedema] 10-11-2022 Chronic Other diseases of veins and lymphatics (4 sources) Stasis dermatitis; Translations: [Venous insufficiency (chronic) (peripheral)] 07-02-2023 Episodic Other injuries and conditions due to external causes (2 sources) Unspecified multiple injuries, initial encounter; Translations: [Unspecified multiple injuries, initial encounter] Onset: 01-22-2025 Episodic Other nutritional; endocrine; and metabolic disorders (2 sources) Morbid (severe) obesity due to excess calories; Translations: [Morbid (severe) obesity due to excess calories] Onset: 01-22-2025 Chronic Septicemia (except in labor) (3 sources) Sepsis; Translations: [Sepsis, unspecified organism] Onset: 01-22-2025 01-22-2025 Episodic Shock (2 sources) Severe sepsis with septic shock; Translations: [Severe sepsis with septic shock] Onset: 01-22-2025 Episodic Skin and subcutaneous tissue infections (14 sources) Cellulitis of lower limb; Translations: [Cellulitis of right lower limb] 10-15-2019 Episodic Urinary tract infections (1 source) Urinary tract infectious disease; Translations: [Urinary tract infection, site not specified] 01-22-2025 Episodic Past or Other Problems Problem Classification Problem Date Documented Da te Episodic/Chronic Other aftercare (1 source) Encounter for follow-up examination after completed treatment for conditions other than malignant neoplasm; Translations: [Encounter for follow-up examination after completed treatment for conditions other than malignant neoplasm] Onset: 06-23-2024 Episodic Results Test Name Value Interpretation Reference Range Facility CBC-Complete Blood Cnt No Di ffon 03-24-2025 Erythrocyte distribution width (RBC) [Ratio] 14.0 % Normal 11.6-14.6 [facility] Comment on above: Order Comment: REDRA W. PREVIOUS SPECIMEN REJECTED DUE TO RESULTS NOT COMING THROUGH AND SEEM TO BE ERRONEOUS. 01/22/25219 Mora Patel. NOTIFIED DELMY FOR REDRAW Performed By: #### L 509.7001, L100.0100, L503.6005, L503.7505, L501.3620, L500.2500, L501.5200, L500.3400 #### [facility] [address] [place], [place], [id number] Hematocrit (Bld) [Volume fraction] 33.8 % Low 40-54 [facility] Comment on above: Order Comment: REDRA W. PREVIOUS SPECIMEN REJECTED DUE TO RESULTS NOT COMING THROUGH AND SEEM TO BE ERRONEOUS. 01/22/25219 Mora Patel. NOTIFIED DELMY FOR REDRAW Performed By: #### L 509.7001, L100.0100, L503.6005, L503.7505, L501.3620, L500.2500, L501.5200, L500.3400 #### [facility] [address] [place], [address] Hemoglobin (Bld) [Mass/Vol] 10.2 g/dL Low 13.0-16.5 [facility] Comment on above: Order Comment: REDRA W. PREVIOUS SPECIMEN REJECTED DUE TO RESULTS NOT COMING THROUGH AND SEEM TO BE ERRONEOUS. 01/22/25219 Mora Patel. NOTIFIED DELMY FOR REDRAW Performed By: #### L 509.7001, L100.0100, L503.6005, L503.7505, L501.3620, L500.2500, L501.5200, L500.3400 #### [facility] [address] [place], [address] MCH (RBC) [Entitic mass] 28.3 pg Normal 27.0-32.0 [facility] Comment on above: Order Comment: REDRA W. PREVIOUS SPECIMEN REJECTED DUE TO RESULTS NOT COMING THROUGH AND SEEM TO BE ERRONEOUS. 01/22/25219 Mora Patel. NOTIFIED DELMY FOR REDRAW Performed By: #### L 509.7001, L100.0100, L503.6005, L503.7505, L501.3620, L500.2500, L501.5200, L500.3400 #### [facility] [address] [place], [address] MCHC (RBC) [Mass/Vol] 30.2 g/dL Low 32-36 [facility] Comment on above: Order Comment: REDRA W. PREVIOUS SPECIMEN REJECTED DUE TO RESULTS NOT COMING THROUGH AND SEEM TO BE ERRONEOUS. 01/22/25219 Mora Patel. NOTIFIED DELMY FOR REDRAW Performed By: #### L 509.7001, L100.0100, L503.6005, L503.7505, L501.3620, L500.2500, L501.5200, L500.3400 #### [facility] [address] [place], [address] MCV (RBC) [Entitic vol] 93.9 fL Normal 80-94 [facility] Comment on above: Order Comment: REDRA W. PREVIOUS SPECIMEN REJECTED DUE TO RESULTS NOT COMING THROUGH AND SEEM TO BE ERRONEOUS. 01/22/25219 Mora Patel. NOTIFIED DELMY FOR REDRAW Performed By: #### L 509.7001, L100.0100, L503.6005, L503.7505, L501.3620, L500.2500, L501.5200, L500.3400 #### [facility] [address] [place], [address] Platelet mean volume (Bld) [Entitic vol] 9.1 fL Normal 6.2-12.0 [facility] Comment on above: Order Comment: REDRA W. PREVIOUS SPECIMEN REJECTED DUE TO RESULTS NOT COMING THROUGH AND SEEM TO BE ERRONEOUS. 01/22/25219 Mora Patel. NOTIFIED DELMY FOR REDRAW Performed By: #### L 509.7001, L100.0100, L503.6005, L503.7505, L501.3620, L500.2500, L501.5200, L500.3400 #### [facility] [address] [place], [address] Platelets (Bld) [#/Vol] 220 10*3/uL Normal 150-450 [facility] Comment on above: Order Comment: REDRA W. PREVIOUS SPECIMEN REJECTED DUE TO RESULTS NOT COMING THROUGH AND SEEM TO BE ERRONEOUS. 01/22/25219 Mora Patel. NOTIFIED DELMY FOR REDRAW Performed By: #### L 509.7001, L100.0100, L503.6005, L503.7505, L501.3620, L500.2500, L501.5200, L500.3400 #### [facility] [address] [place], [address] RBC (Bld) [#/Vol] 3.60 10*6/uL Low 4.6-6.2 [facility] Comment on above: Order Comment: REDRA W. PREVIOUS SPECIMEN REJECTED DUE TO RESULTS NOT COMING THROUGH AND SEEM TO BE ERRONEOUS. 01/22/25219 Mora Patel. NOTIFIED DELMY FOR REDRAW Performed By: #### L 509.7001, L100.0100, L503.6005, L503.7505, L501.3620, L500.2500, L501.5200, L500.3400 #### [facility] [address] [place], [place], [id number] RDW SD 48.2 fl High 35.1-43.9 [facility] Comment on above: Order Comment: REDRA W. PREVIOUS SPECIMEN REJECTED DUE TO RESULTS NOT COMING THROUGH AND SEEM TO BE ERRONEOUS. 01/22/25219 Mora Patel. NOTIFIED DELMY FOR REDRAW Performed By: #### L 509.7001, L100.0100, L503.6005, L503.7505, L501.3620, L500.2500, L501.5200, L500.3400 #### [facility] [address] [place], [place], [id number] WBC (Bld) [#/Vol] 4.6 10*3/uL Normal 4.4-11.0 [facility] Comment on above: Order Comment: REDRA W. PREVIOUS SPECIMEN REJECTED DUE TO RESULTS NOT COMING THROUGH AND SEEM TO BE ERRONEOUS. 01/22/25219 Mora Patel. NOTIFIED DELMY FOR REDRAW Performed By: #### L 509.7001, L100.0100, L503.6005, L503.7505, L501.3620, L500.2500, L501.5200, L500.3400 #### [facility] [address] [place], [place], [id number] Comprehensive Metabolic Prof coon 03-24-2025 Albumin [Mass/Vol] 2.5 g/dL Low 3.4-4.8 [facility] Comment on above: Order Comment: REDRA W. PREVIOUS SPECIMEN REJECTED DUE TO RESULTS NOT COMING THROUGH AND SEEM TO BE ERRONEOUS. 01/22/25219 Mora Patel. NOTIFIED DELMY FOR REDRAW Performed By: #### L 509.7001, L100.0100, L503.6005, L503.7505, L501.3620, L500.2500, L501.5200, L500.3400 #### [facility] [address] [place], [address] Albumin/Globulin [Mass ratio] 0.6 {ratio} Low 0.9-2.4 [facility] Comment on above: Order Comment: REDRA W. PREVIOUS SPECIMEN REJECTED DUE TO RESULTS NOT COMING THROUGH AND SEEM TO BE ERRONEOUS. 01/22/25219 Mora Patel. NOTIFIED DELMY FOR REDRAW Performed By: #### L 509.7001, L100.0100, L503.6005, L503.7505, L501.3620, L500.2500, L501.5200, L500.3400 #### [facility] [address] [place], [address] ALK PHOS 57 U/L Normal 40-129 [facility] Comment on above: Order Comment: REDRA W. PREVIOUS SPECIMEN REJECTED DUE TO RESULTS NOT COMING THROUGH AND SEEM TO BE ERRONEOUS. 01/22/25219 Mora Patel. NOTIFIED DELMY FOR REDRAW Performed By: #### L 509.7001, L100.0100, L503.6005, L503.7505, L501.3620, L500.2500, L501.5200, L500.3400 #### [facility] [address] [place], [address] ALT [Catalytic activity/Vol] 9 U/L Normal <=46 [facility] Comment on above: Order Comment: REDRA W. PREVIOUS SPECIMEN REJECTED DUE TO RESULTS NOT COMING THROUGH AND SEEM TO BE ERRONEOUS. 01/22/25219 Mora Patel. NOTIFIED DELMY FOR REDRAW Result Comment: Hemo lysis present, Results??could be affected. ?? Performed By: #### L 509.7001, L100.0100, L503.6005, L503.7505, L501.3620, L500.2500, L501.5200, L500.3400 #### [facility] [address] [place], [place], [id number] AST [Catalytic activity/Vol] 38 U/L Normal <=37 [facility] Comment on above: Order Comment: REDRA W. PREVIOUS SPECIMEN REJECTED DUE TO RESULTS NOT COMING THROUGH AND SEEM TO BE ERRONEOUS. 01/22/25219 Mora Patel. NOTIFIED DELMY FOR REDRAW Result Comment: Hemo lysis present, Results??could be affected. ?? Performed By: #### L 509.7001, L100.0100, L503.6005, L503.7505, L501.3620, L500.2500, L501.5200, L500.3400 #### [facility] [address] [place], [address] Bilirubin [Mass/Vol] 0.48 mg/dL Normal 0.00-1.30 [facility] Comment on above: Order Comment: REDRA W. PREVIOUS SPECIMEN REJECTED DUE TO RESULTS NOT COMING THROUGH AND SEEM TO BE ERRONEOUS. 01/22/25219 Mora Patel. NOTIFIED DELMY FOR REDRAW Performed By: #### L 509.7001, L100.0100, L503.6005, L503.7505, L501.3620, L500.2500, L501.5200, L500.3400 #### [facility] [address] [place], [place], [id number] (074) BUN/CRE 15.7 RATIO Normal 10-20 [facility] Comment on above: Order Comment: REDRA W. PREVIOUS SPECIMEN REJECTED DUE TO RESULTS NOT COMING THROUGH AND SEEM TO BE ERRONEOUS. 01/22/25219 Mora Patel. NOTIFIED DELMY FOR REDRAW Performed By: #### L 509.7001, L100.0100, L503.6005, L503.7505, L501.3620, L500.2500, L501.5200, L500.3400 #### [facility] [address] [place], [address] Calcium [Mass/Vol] 8.8 mg/dL Normal 7.6-11.0 [facility] Comment on above: Order Comment: REDRA W. PREVIOUS SPECIMEN REJECTED DUE TO RESULTS NOT COMING THROUGH AND SEEM TO BE ERRONEOUS. 01/22/25219 Mora Patel. NOTIFIED DELMY FOR REDRAW Performed By: #### L 509.7001, L100.0100, L503.6005, L503.7505, L501.3620, L500.2500, L501.5200, L500.3400 #### [facility] [address] [place], [address] Chloride [Moles/Vol] 106 mmol/L Normal 98-108 [facility] Comment on above: Order Comment: REDRA W. PREVIOUS SPECIMEN REJECTED DUE TO RESULTS NOT COMING THROUGH AND SEEM TO BE ERRONEOUS. 01/22/25219 Mora Patel. NOTIFIED DELMY FOR REDRAW Performed By: #### L 509.7001, L100.0100, L503.6005, L503.7505, L501.3620, L500.2500, L501.5200, L500.3400 #### [facility] [address] [place], [address] CO2 [Moles/Vol] 23.7 mmol/L Normal 21.0-32.0 [facility] Comment on above: Order Comment: REDRA W. PREVIOUS SPECIMEN REJECTED DUE TO RESULTS NOT COMING THROUGH AND SEEM TO BE ERRONEOUS. 01/22/25219 Mora Patel. NOTIFIED DELMY FOR REDRAW Performed By: #### L 509.7001, L100.0100, L503.6005, L503.7505, L501.3620, L500.2500, L501.5200, L500.3400 #### [facility] [address] [place], [address] Creatinine [Mass/Vol] 0.46 mg/dL Low 0.70-1.20 [facility] Comment on above: Order Comment: REDRA W. PREVIOUS SPECIMEN REJECTED DUE TO RESULTS NOT COMING THROUGH AND SEEM TO BE ERRONEOUS. 01/22/25219 Mora Patel. NOTIFIED DELMY FOR REDRAW Performed By: #### L 509.7001, L100.0100, L503.6005, L503.7505, L501.3620, L500.2500, L501.5200, L500.3400 #### [facility] [address] [place], [place], [id number] GAP 8 Normal 5-15 [facility] Comment on above: Order Comment: REDRA W. PREVIOUS SPECIMEN REJECTED DUE TO RESULTS NOT COMING THROUGH AND SEEM TO BE ERRONEOUS. 01/22/25219 Mora Patel. NOTIFIED DELMY FOR REDRAW Performed By: #### L 509.7001, L100.0100, L503.6005, L503.7505, L501.3620, L500.2500, L501.5200, L500.3400 #### [facility] [address] [place], [place], [id number] GFR/1.73 sq M.predicted among non-blacks MDRD (S/P/Bld) [Vol rate/Area] 112 mL/min/{1.73_m2} Normal >60 [facility] Comment on above: Order Comment: REDRA W. PREVIOUS SPECIMEN REJECTED DUE TO RESULTS NOT COMING THROUGH AND SEEM TO BE ERRONEOUS. 01/22/25219 Mora Patel. NOTIFIED DELMY FOR REDRAW Result Comment: mL/m in/1.73m2 CKD-EPI Creatinine Equation (2020) Performed By: #### L 509.7001, L100.0100, L503.6005, L503.7505, L501.3620, L500.2500, L501.5200, L500.3400 #### [facility] [address] [place], [place], [id number] Globulin (S) [Mass/Vol] 4.0 g/dL Normal 2.2-4.2 [facility] Comment on above: Order Comment: REDRA W. PREVIOUS SPECIMEN REJECTED DUE TO RESULTS NOT COMING THROUGH AND SEEM TO BE ERRONEOUS. 01/22/25219 Mora Patel. NOTIFIED DELMY FOR REDRAW Performed By: #### L 509.7001, L100.0100, L503.6005, L503.7505, L501.3620, L500.2500, L501.5200, L500.3400 #### [facility] [address] [place], [address] Glucose [Mass/Vol] 90 mg/dL Normal 70-99 [facility] Comment on above: Order Comment: REDRA W. PREVIOUS SPECIMEN REJECTED DUE TO RESULTS NOT COMING THROUGH AND SEEM TO BE ERRONEOUS. 01/22/25219 Mora Patel. NOTIFIED DELMY FOR REDRAW Performed By: #### L 509.7001, L100.0100, L503.6005, L503.7505, L501.3620, L500.2500, L501.5200, L500.3400 #### [facility] [address] [place], [address] Potassium [Moles/Vol] 4.2 mmol/L Normal 3.3-5.1 [facility] Comment on above: Order Comment: REDRA W. PREVIOUS SPECIMEN REJECTED DUE TO RESULTS NOT COMING THROUGH AND SEEM TO BE ERRONEOUS. 01/22/25219 Mora Patel. NOTIFIED DELMY FOR REDRAW Result Comment: Hemo lysis present, Results??could be affected. ?? Performed By: #### L 509.7001, L100.0100, L503.6005, L503.7505, L501.3620, L500.2500, L501.5200, L500.3400 #### [facility] [address] [place], [address] Sodium [Moles/Vol] 137 mmol/L Normal 133-145 [facility] Comment on above: Order Comment: REDRA W. PREVIOUS SPECIMEN REJECTED DUE TO RESULTS NOT COMING THROUGH AND SEEM TO BE ERRONEOUS. 01/22/25219 Mora Ptael. NOTIFIED DELMY FOR REDRAW Performed By: #### L 509.7001, L100.0100, L503.6005, L503.7505, L501.3620, L500.2500, L501.5200, L500.3400 #### [facility] [address] [place], [address] T PROT 6.5 g/dL Normal 5.9-8.4 [facility] Comment on above: Order Comment: REDRA W. PREVIOUS SPECIMEN REJECTED DUE TO RESULTS NOT COMING THROUGH AND SEEM TO BE ERRONEOUS. 01/22/25219 Mora Patel. NOTIFIED DELMY FOR REDRAW Performed By: #### L 509.7001, L100.0100, L503.6005, L503.7505, L501.3620, L500.2500, L501.5200, L500.3400 #### [facility] [address] [place], [place], [id number] Urea nitrogen [Mass/Vol] 7 mg/dL Normal 4-19 [facility] Comment on above: Order Comment: REDRA W. PREVIOUS SPECIMEN REJECTED DUE TO RESULTS NOT COMING THROUGH AND SEEM TO BE ERRONEOUS. 01/22/25219 Mora Patel. NOTIFIED DELMY FOR REDRAW Performed By: #### L 509.7001, L100.0100, L503.6005, L503.7505, L501.3620, L500.2500, L501.5200, L500.3400 #### [facility] [address] [place], [address] CBC-Complete Blood Cnt No Di ffon 03-17-2025 Erythrocyte distribution width (RBC) [Ratio] 14.1 % Normal 11.6-14.6 [facility] Comment on above: Order Comment: 301.1 Performed By: #### L 503.7505, L100.0500, L500.4050 #### [facility] [address] [place], [address] Hematocrit (Bld) [Volume fraction] 32.6 % Low 40-54 [facility] Comment on above: Order Comment: 301.1 Performed By: #### L 503.7505, L100.0500, L500.4050 #### [facility] [address] [place], [address] Hemoglobin (Bld) [Mass/Vol] 10.1 g/dL Low 13.0-16.5 [facility] Comment on above: Order Comment: 301.1 Performed By: #### L 503.7505, L100.0500, L500.4050 #### [facility] [address] [place], [address] MCH (RBC) [Entitic mass] 28.3 pg Normal 27.0-32.0 [facility] Comment on above: Order Comment: 301.1 Performed By: #### L 503.7505, L100.0500, L500.4050 #### [facility] [address] [place], [address] MCHC (RBC) [Mass/Vol] 31.0 g/dL Low 32-36 [facility] Comment on above: Order Comment: 301.1 Performed By: #### L 503.7505, L100.0500, L500.4050 #### [facility] [address] [place], [address] MCV (RBC) [Entitic vol] 91.3 fL Normal 80-94 [facility] Comment on above: Order Comment: 301.1 Performed By: #### L 503.7505, L100.0500, L500.4050 #### [facility] [address] [place], [address] Platelet mean volume (Bld) [Entitic vol] 9.8 fL Normal 6.2-12.0 [facility] Comment on above: Order Comment: 301.1 Performed By: #### L 503.7505, L100.0500, L500.4050 #### [facility] [address] [place], [address] Platelets (Bld) [#/Vol] 225 10*3/uL Normal 150-450 [facility] Comment on above: Order Comment: 301.1 Performed By: #### L 503.7505, L100.0500, L500.4050 #### [facility] [address] [place], [address] RBC (Bld) [#/Vol] 3.57 10*6/uL Low 4.6-6.2 [facility] Comment on above: Order Comment: 301.1 Performed By: #### L 503.7505, L100.0500, L500.4050 #### [facility] [address] [place], [address] RDW SD 47.6 fl High 35.1-43.9 [facility] Comment on above: Order Comment: 301.1 Performed By: #### L 503.7505, L100.0500, L500.4050 #### [facility] [address] [place], [address] WBC (Bld) [#/Vol] 5.5 10*3/uL Normal 4.4-11.0 [facility] Comment on above: Order Comment: 301.1 Performed By: #### L 503.7505, L100.0500, L500.4050 #### [facility] [address] [place], [address] Comprehensive Metabolic Prof ilon 03-17-2025 Albumin [Mass/Vol] 2.2 g/dL Low 3.4-4.8 [facility] Comment on above: Order Comment: SHREYAS Sommer PREVIOUS SPECIMEN REJECTED DUE TO RESULTS NOT COMING THROUGH AND SEEM TO BE ERRONEOUS. 01/22/25219 Mora Patel. NOTIFIED DELMY FOR REDRAW Performed By: #### L 509.7001, L100.0100, L503.6005, L503.7505, L501.3620, L500.2500, L501.5200, L500.3400 #### [facility] [address] [place], [address] Albumin/Globulin [Mass ratio] 0.6 {ratio} Low 0.9-2.4 [facility] Comment on above: Order Comment: REDRA W. PREVIOUS SPECIMEN REJECTED DUE TO RESULTS NOT COMING THROUGH AND SEEM TO BE ERRONEOUS. 01/22/25219 Mora Patel. NOTIFIED DELMY FOR REDRAW Performed By: #### L 509.7001, L100.0100, L503.6005, L503.7505, L501.3620, L500.2500, L501.5200, L500.3400 #### [facility] [address] [place], [place], [phone] PHOS 58 U/L Normal 40-129 [facility] Comment on above: Order Comment: REDRA W. PREVIOUS SPECIMEN REJECTED DUE TO RESULTS NOT COMING THROUGH AND SEEM TO BE ERRONEOUS. 01/22/25219 Mora Patel. NOTIFIED DELMY FOR REDRAW Performed By: #### L 509.7001, L100.0100, L503.6005, L503.7505, L501.3620, L500.2500, L501.5200, L500.3400 #### [facility] [address] [place], [address] ALT [Catalytic activity/Vol] 12 U/L Normal <=46 [facility] Comment on above: Order Comment: REDRA W. PREVIOUS SPECIMEN REJECTED DUE TO RESULTS NOT COMING THROUGH AND SEEM TO BE ERRONEOUS. 01/22/25219 Mora Patel. NOTIFIED DELMY FOR REDRAW Performed By: #### L 509.7001, L100.0100, L503.6005, L503.7505, L501.3620, L500.2500, L501.5200, L500.3400 #### [facility] [address] [place], [address] AST [Catalytic activity/Vol] 35 U/L Normal <=37 [facility] Comment on above: Order Comment: REDRA W. PREVIOUS SPECIMEN REJECTED DUE TO RESULTS NOT COMING THROUGH AND SEEM TO BE ERRONEOUS. 01/22/25219 Mora Patel. NOTIFIED DELMY FOR REDRAW Result Comment: Hemo lysis present, Results??could be affected. ?? Performed By: #### L 509.7001, L100.0100, L503.6005, L503.7505, L501.3620, L500.2500, L501.5200, L500.3400 #### [facility] [address] [place], [address] Bilirubin [Mass/Vol] 0.52 mg/dL Normal 0.00-1.30 [facility] Comment on above: Order Comment: REDRA W. PREVIOUS SPECIMEN REJECTED DUE TO RESULTS NOT COMING THROUGH AND SEEM TO BE ERRONEOUS. 01/22/25219 Mora Patel. NOTIFIED DELMY FOR REDRAW Performed By: #### L 509.7001, L100.0100, L503.6005, L503.7505, L501.3620, L500.2500, L501.5200, L500.3400 #### [facility] [address] [place], [address] BUN/CRE 14.1 RATIO Normal 10-20 [facility] Comment on above: Order Comment: REDRA W. PREVIOUS SPECIMEN REJECTED DUE TO RESULTS NOT COMING THROUGH AND SEEM TO BE ERRONEOUS. 01/22/25219 Mora Patel. NOTIFIED DELMY FOR REDRAW Performed By: #### L 509.7001, L100.0100, L503.6005, L503.7505, L501.3620, L500.2500, L501.5200, L500.3400 #### [facility] [address] [place], [address] Calcium [Mass/Vol] 8.2 mg/dL Normal 7.6-11.0 [facility] Comment on above: Order Comment: REDRA W. PREVIOUS SPECIMEN REJECTED DUE TO RESULTS NOT COMING THROUGH AND SEEM TO BE ERRONEOUS. 01/22/25219 Mora Patel. NOTIFIED DELMY FOR REDRAW Performed By: #### L 509.7001, L100.0100, L503.6005, L503.7505, L501.3620, L500.2500, L501.5200, L500.3400 #### [facility] [address] [place], [address] Chloride [Moles/Vol] 104 mmol/L Normal 98-108 [facility] Comment on above: Order Comment: REDRA W. PREVIOUS SPECIMEN REJECTED DUE TO RESULTS NOT COMING THROUGH AND SEEM TO BE ERRONEOUS. 01/22/25219 Mora Patel. NOTIFIED DELMY FOR REDRAW Performed By: #### L 509.7001, L100.0100, L503.6005, L503.7505, L501.3620, L500.2500, L501.5200, L500.3400 #### [facility] [address] [place], [address] CO2 [Moles/Vol] 21.2 mmol/L Normal 21.0-32.0 [facility] Comment on above: Order Comment: REDRA W. PREVIOUS SPECIMEN REJECTED DUE TO RESULTS NOT COMING THROUGH AND SEEM TO BE ERRONEOUS. 01/22/25219 Mora Patel. NOTIFIED DELMY FOR REDRAW Performed By: #### L 509.7001, L100.0100, L503.6005, L503.7505, L501.3620, L500.2500, L501.5200, L500.3400 #### [facility] [address] [place], [address] Creatinine [Mass/Vol] 0.46 mg/dL Low 0.70-1.20 [facility] Comment on above: Order Comment: REDRA W. PREVIOUS SPECIMEN REJECTED DUE TO RESULTS NOT COMING THROUGH AND SEEM TO BE ERRONEOUS. 01/22/25219 Mora Patel. NOTIFIED DELMY FOR REDRAW Performed By: #### L 509.7001, L100.0100, L503.6005, L503.7505, L501.3620, L500.2500, L501.5200, L500.3400 #### [facility] [address] [place], [place], [phone] (446) GAP 9 Normal 5-15 [facility] Comment on above: Order Comment: REDRA W. PREVIOUS SPECIMEN REJECTED DUE TO RESULTS NOT COMING THROUGH AND SEEM TO BE ERRONEOUS. 01/22/25219 Mora Patel. NOTIFIED DELMY FOR REDRAW Performed By: #### L 509.7001, L100.0100, L503.6005, L503.7505, L501.3620, L500.2500, L501.5200, L500.3400 #### [facility] [address] [place], [place], [phone] (251) GFR/1.73 sq M.predicted among non-blacks MDRD (S/P/Bld) [Vol rate/Area] 112 mL/min/{1.73_m2} Normal >60 [facility] Comment on above: Order Comment: REDRA W. PREVIOUS SPECIMEN REJECTED DUE TO RESULTS NOT COMING THROUGH AND SEEM TO BE ERRONEOUS. 01/22/25219 Mora Patel. NOTIFIED DELMY FOR REDRAW Result Comment: mL/m in/1.73m2 CKD-EPI Creatinine Equation (2020) Performed By: #### L 509.7001, L100.0100, L503.6005, L503.7505, L501.3620, L500.2500, L501.5200, L500.3400 #### [facility] [address] [place], [place], [phone] (541) Globulin (S) [Mass/Vol] 3.6 g/dL Normal 2.2-4.2 [facility] Comment on above: Order Comment: REDRA W. PREVIOUS SPECIMEN REJECTED DUE TO RESULTS NOT COMING THROUGH AND SEEM TO BE ERRONEOUS. 01/22/25219 Mora Patel. NOTIFIED DELMY FOR REDRAW Performed By: #### L 509.7001, L100.0100, L503.6005, L503.7505, L501.3620, L500.2500, L501.5200, L500.3400 #### [facility] [address] [place], [address] Glucose [Mass/Vol] 83 mg/dL Normal 70-99 [facility] Comment on above: Order Comment: REDRA W. PREVIOUS SPECIMEN REJECTED DUE TO RESULTS NOT COMING THROUGH AND SEEM TO BE ERRONEOUS. 01/22/25219 Mora Patel. NOTIFIED DELMY FOR REDRAW Performed By: #### L 509.7001, L100.0100, L503.6005, L503.7505, L501.3620, L500.2500, L501.5200, L500.3400 #### [facility] [address] [place], [address] Potassium [Moles/Vol] 4.3 mmol/L Normal 3.3-5.1 [facility] Comment on above: Order Comment: REDRA W. PREVIOUS SPECIMEN REJECTED DUE TO RESULTS NOT COMING THROUGH AND SEEM TO BE ERRONEOUS. 01/22/25219 Mora Patel. NOTIFIED DELMY FOR REDRAW Result Comment: Hemo lysis present, Results??could be affected. ?? Performed By: #### L 509.7001, L100.0100, L503.6005, L503.7505, L501.3620, L500.2500, L501.5200, L500.3400 #### [facility] [address] [place], [address] Sodium [Moles/Vol] 135 mmol/L Normal 133-145 [facility] Comment on above: Order Comment: REDRA W. PREVIOUS SPECIMEN REJECTED DUE TO RESULTS NOT COMING THROUGH AND SEEM TO BE ERRONEOUS. 01/22/25219 Mora Patel. NOTIFIED DELMY FOR REDRAW Performed By: #### L 509.7001, L100.0100, L503.6005, L503.7505, L501.3620, L500.2500, L501.5200, L500.3400 #### [facility] [address] [place], [address] T PROT 5.8 g/dL Low 5.9-8.4 [facility] Comment on above: Order Comment: REDRA W. PREVIOUS SPECIMEN REJECTED DUE TO RESULTS NOT COMING THROUGH AND SEEM TO BE ERRONEOUS. 01/22/25219 Mora Patel. NOTIFIED DELMY FOR REDRAW Performed By: #### L 509.7001, L100.0100, L503.6005, L503.7505, L501.3620, L500.2500, L501.5200, L500.3400 #### [facility] [address] [place], [address] Urea nitrogen [Mass/Vol] 6 mg/dL Normal 4-19 [facility] Comment on above: Order Comment: REDRA W. PREVIOUS SPECIMEN REJECTED DUE TO RESULTS NOT COMING THROUGH AND SEEM TO BE ERRONEOUS. 01/22/25219 Mora Patel. NOTIFIED DELMY FOR REDRAW Performed By: #### L 509.7001, L100.0100, L503.6005, L503.7505, L501.3620, L500.2500, L501.5200, L500.3400 #### [facility] [address] [place], [address] Pro- Brain NATRIURETIC PEPTI Ashlee 03-17-2025 Natriuretic peptide B (Bld) [Mass/Vol] 443 pg/mL Normal <=900 [facility] Comment on above: Order Comment: REDRA W. PREVIOUS SPECIMEN REJECTED DUE TO RESULTS NOT COMING THROUGH AND SEEM TO BE ERRONEOUS. 01/22/25219 Mora Patel. NOTIFIED DELMY FOR REDRAW Result Comment: Hear t Failure Unlikely: < 300 pg/mL Heart Failure Likely < 50 Years: > 450 pg/mL 50-75 Years: > 900 pg/mL >75 Years: > 1800 pg/mL Performed By: #### L 509.7001, L100.0100, L503.6005, L503.7505, L501.3620, L500.2500, L501.5200, L500.3400 #### [facility] [place], [address] Wound Cultureon 03-11-2025 #2 [facility] ACINETOBACTER BAUMANNII CARBAPENEMASE MOLECULAR DETECTION RESULT REFERENCE VALUE IMP GENE NOT DETECTED NOT DETECTED KPC GENE NOT DETECTED NOT DETECTED NDM GENE NOT DETECTED NOT DETECTED OXA-23-LIKE GENE NOT DETECTED NOT DETECTED OXA-24/40 LIKE GENE DETECTED * NOT DETECTED OXA-48-LIKE GENE NOT DETECTED NOT DETECTED OXA-58-LIKE GENE NOT DETECTED NOT DETECTED VIM GENE NOT DETECTED NOT DETECTED Wound Culture Copy of report sent to Infection Control Printer [id number] 03/03/25 0822 ASNIPES. Pseudomonas aeruginosa Amount Growth 2+ Acinetobacter baumannii Acinetobacter baumannii MARKER Multi Drug Resistant Organism MARKER Not Applicable MARKER Multi Drug Resistant OrganismA Amount Growth Rare Pseudomonas aeruginosa: REACTION Cefepime Islt TAMMY 2 S Providencia stuartii levoFLOXacin Islt TAMMY 1 Meropenem Islt TAMMY <=0.25 S Pip+Tazo Islt TAMMY 8 Acinetobacter baumannii: REACTION Ampicillin+Sulbac Islt TAMMY 16 I levoFLOXacin Islt TAMMY >=8 R Meropenem Islt TAMMY >=16 R Pip+Tazo Islt TAMMY >=128 R TMP SMX Islt TAMMY >=320 Acinetobacter baumannii: REACTION Doxycycline Islt TAMMY >=16 R Imipenem Islt TAMMY >=16 R Minocycline Islt TAMMY 16 R Providencia stuartii: REACTION Ampicillin Islt TAMMY >=32 Ampicillin+Sulbac Islt TAMMY >=32 R Cefepime Islt TAMMY <=0.12 S cefTRIAXone Islt TAMMY <=0.25 S Ciprofloxacin Islt TAMMY <=0.06 Gentamicin Islt TAMMY R levoFLOXacin Islt TAMMY <=0.12 S Meropenem Islt TAMMY <=0.25 S Pip+Tazo Islt TAMMY <=4 S TMP SMX Islt TAMMY <=20 S Normal [facility] Comment on above: Performed By: #### L 509.7001, L100.0100, L503.6005, L503.7505, L501.3620, L500.2500, L501.5200, L500.3400 #### [facility] [address] [place], [address] CBC W/Diff, Automatedon 10-2 Absolute Lymph 0.58 X10 3/uL Low 0.83-4.51 [facility] Comment on above: Order Comment: REDRA W. PREVIOUS SPECIMEN REJECTED DUE TO RESULTS NOT COMING THROUGH AND SEEM TO BE ERRONEOUS. 01/22/25219 Mora Patel. NOTIFIED DELMY FOR REDRAW Performed By: #### L 509.7001, L100.0100, L503.6005, L503.7505, L501.3620, L500.2500, L501.5200, L500.3400 #### [facility] [address] [place], [address] Absolute Neut 14.2 X10 3/uL High 2.0-7.7 [facility] Comment on above: Order Comment: REDRA W. PREVIOUS SPECIMEN REJECTED DUE TO RESULTS NOT COMING THROUGH AND SEEM TO BE ERRONEOUS. 01/22/25219 Mora Patel. NOTIFIED DELMY FOR REDRAW Performed By: #### L 509.7001, L100.0100, L503.6005, L503.7505, L501.3620, L500.2500, L501.5200, L500.3400 #### [facility] [address] [place], [address] Basophils/100 WBC (Bld) 0.5 % Normal 0-1 [facility] Comment on above: Order Comment: REDRA W. PREVIOUS SPECIMEN REJECTED DUE TO RESULTS NOT COMING THROUGH AND SEEM TO BE ERRONEOUS. 01/22/25219 Mora Patel. NOTIFIED DELMY FOR REDRAW Performed By: #### L 509.7001, L100.0100, L503.6005, L503.7505, L501.3620, L500.2500, L501.5200, L500.3400 #### [facility] [address] [place], [address] Eosinophils/100 WBC (Bld) 1.8 % Normal 0-5 [facility] Comment on above: Order Comment: REDRA W. PREVIOUS SPECIMEN REJECTED DUE TO RESULTS NOT COMING THROUGH AND SEEM TO BE ERRONEOUS. 01/22/25219 Mora Patel. NOTIFIED DELMY FOR REDRAW Performed By: #### L 509.7001, L100.0100, L503.6005, L503.7505, L501.3620, L500.2500, L501.5200, L500.3400 #### [facility] [address] [place], [address] Erythrocyte distribution width (RBC) [Ratio] 15.0 % High 11.6-14.6 [facility] Comment on above: Order Comment: REDRA W. PREVIOUS SPECIMEN REJECTED DUE TO RESULTS NOT COMING THROUGH AND SEEM TO BE ERRONEOUS. 01/22/25219 Mora Patel. NOTIFIED DELMY FOR REDRAW Performed By: #### L 509.7001, L100.0100, L503.6005, L503.7505, L501.3620, L500.2500, L501.5200, L500.3400 #### [facility] [address] [place], [address] Hematocrit (Bld) [Volume fraction] 34.6 % Low 40-54 [facility] Comment on above: Order Comment: REDRA W. PREVIOUS SPECIMEN REJECTED DUE TO RESULTS NOT COMING THROUGH AND SEEM TO BE ERRONEOUS. 01/22/25219 Mora Patel. NOTIFIED DELMY FOR REDRAW Performed By: #### L 509.7001, L100.0100, L503.6005, L503.7505, L501.3620, L500.2500, L501.5200, L500.3400 #### [facility] [address] [place], [address] Hemoglobin (Bld) [Mass/Vol] 10.8 g/dL Low 13.0-16.5 [facility] Comment on above: Order Comment: REDRA W. PREVIOUS SPECIMEN REJECTED DUE TO RESULTS NOT COMING THROUGH AND SEEM TO BE ERRONEOUS. 01/22/25219 Mora Patel. NOTIFIED DELMY FOR REDRAW Performed By: #### L 509.7001, L100.0100, L503.6005, L503.7505, L501.3620, L500.2500, L501.5200, L500.3400 #### [facility] [address] [place], [address] IG% 1.100 High 0.0-0.9 [facility] Comment on above: Order Comment: REDRA W. PREVIOUS SPECIMEN REJECTED DUE TO RESULTS NOT COMING THROUGH AND SEEM TO BE ERRONEOUS. 01/22/25219 Mora Patel. NOTIFIED DELMY FOR REDRAW Result Comment: IG% - Immature Granulocytes (promyelocytes, myelocytes and metamyelocytes) > 1% indicates that a LEFT SHIFT is Present. Performed By: #### L 509.7001, L100.0100, L503.6005, L503.7505, L501.3620, L500.2500, L501.5200, L500.3400 #### [facility] [address] [place], [address] Lymphocytes/100 WBC (Bld) 3.7 % Low 19-41 [facility] Comment on above: Order Comment: REDRA W. PREVIOUS SPECIMEN REJECTED DUE TO RESULTS NOT COMING THROUGH AND SEEM TO BE ERRONEOUS. 01/22/25219 Mora Patel. NOTIFIED DELMY FOR REDRAW Performed By: #### L 509.7001, L100.0100, L503.6005, L503.7505, L501.3620, L500.2500, L501.5200, L500.3400 #### [facility] [address] [place], [address] MCH (RBC) [Entitic mass] 28.7 pg Normal 27.0-32.0 [facility] Comment on above: Order Comment: REDRA W. PREVIOUS SPECIMEN REJECTED DUE TO RESULTS NOT COMING THROUGH AND SEEM TO BE ERRONEOUS. 01/22/25219 Mora Patel. NOTIFIED DELMY FOR REDRAW Performed By: #### L 509.7001, L100.0100, L503.6005, L503.7505, L501.3620, L500.2500, L501.5200, L500.3400 #### [facility] [address] [place], [address] MCHC (RBC) [Mass/Vol] 31.2 g/dL Low 32-36 [facility] Comment on above: Order Comment: REDRA W. PREVIOUS SPECIMEN REJECTED DUE TO RESULTS NOT COMING THROUGH AND SEEM TO BE ERRONEOUS. 01/22/25219 Mora Patel. NOTIFIED DELMY FOR REDRAW Performed By: #### L 509.7001, L100.0100, L503.6005, L503.7505, L501.3620, L500.2500, L501.5200, L500.3400 #### [facility] [address] [place], [address] MCV (RBC) [Entitic vol] 92.0 fL Normal 80-94 [facility] Comment on above: Order Comment: REDRA W. PREVIOUS SPECIMEN REJECTED DUE TO RESULTS NOT COMING THROUGH AND SEEM TO BE ERRONEOUS. 01/22/25219 Mora Patel. NOTIFIED DELMY FOR REDRAW Performed By: #### L 509.7001, L100.0100, L503.6005, L503.7505, L501.3620, L500.2500, L501.5200, L500.3400 #### [facility] [address] [place], [address] Monocytes/100 WBC (Bld) 1.2 % Normal 0-10 [facility] Comment on above: Order Comment: REDRA W. PREVIOUS SPECIMEN REJECTED DUE TO RESULTS NOT COMING THROUGH AND SEEM TO BE ERRONEOUS. 01/22/25219 Mora Patel. NOTIFIED DELMY FOR REDRAW Performed By: #### L 509.7001, L100.0100, L503.6005, L503.7505, L501.3620, L500.2500, L501.5200, L500.3400 #### [facility] [address] [place], [address] Neutrophils/100 WBC (Bld) 91.7 % High 47-70 [facility] Comment on above: Order Comment: REDRA W. PREVIOUS SPECIMEN REJECTED DUE TO RESULTS NOT COMING THROUGH AND SEEM TO BE ERRONEOUS. 01/22/25219 Mora Patel. NOTIFIED DELMY FOR REDRAW Performed By: #### L 509.7001, L100.0100, L503.6005, L503.7505, L501.3620, L500.2500, L501.5200, L500.3400 #### [facility] [address] [place], [address] Nucleated RBC (Bld) [#/Vol] 0 10*3/uL Normal 0-5 [facility] Comment on above: Order Comment: REDRA W. PREVIOUS SPECIMEN REJECTED DUE TO RESULTS NOT COMING THROUGH AND SEEM TO BE ERRONEOUS. 01/22/25219 Mora Patel. NOTIFIED DELMY FOR REDRAW Performed By: #### L 509.7001, L100.0100, L503.6005, L503.7505, L501.3620, L500.2500, L501.5200, L500.3400 #### [facility] [address] [place], [address] Platelet mean volume (Bld) [Entitic vol] 9.0 fL Normal 6.2-12.0 [facility] Comment on above: Order Comment: REDRA W. PREVIOUS SPECIMEN REJECTED DUE TO RESULTS NOT COMING THROUGH AND SEEM TO BE ERRONEOUS. 01/22/25219 Mora Patel. NOTIFIED DELMY FOR REDRAW Performed By: #### L 509.7001, L100.0100, L503.6005, L503.7505, L501.3620, L500.2500, L501.5200, L500.3400 #### [facility] [address] [place], [address] Platelets (Bld) [#/Vol] 327 10*3/uL Normal 150-450 [facility] Comment on above: Order Comment: REDRA W. PREVIOUS SPECIMEN REJECTED DUE TO RESULTS NOT COMING THROUGH AND SEEM TO BE ERRONEOUS. 01/22/25219 Mora Patel. NOTIFIED DELMY FOR REDRAW Performed By: #### L 509.7001, L100.0100, L503.6005, L503.7505, L501.3620, L500.2500, L501.5200, L500.3400 #### [facility] [address] [place], [address] RBC (Bld) [#/Vol] 3.76 10*6/uL Low 4.6-6.2 [facility] Comment on above: Order Comment: REDRA W. PREVIOUS SPECIMEN REJECTED DUE TO RESULTS NOT COMING THROUGH AND SEEM TO BE ERRONEOUS. 01/22/25219 Mora Patel. NOTIFIED DELMY FOR REDRAW Performed By: #### L 509.7001, L100.0100, L503.6005, L503.7505, L501.3620, L500.2500, L501.5200, L500.3400 #### [facility] [address] [place], [address] RDW SD 50.4 fl High 35.1-43.9 [facility] Comment on above: Order Comment: REDRA W. PREVIOUS SPECIMEN REJECTED DUE TO RESULTS NOT COMING THROUGH AND SEEM TO BE ERRONEOUS. 01/22/25219 Mora Patel. NOTIFIED DELMY FOR REDRAW Performed By: #### L 509.7001, L100.0100, L503.6005, L503.7505, L501.3620, L500.2500, L501.5200, L500.3400 #### [facility] [address] [place], [place], [id number] WBC (Bld) [#/Vol] 15.5 10*3/uL High 4.4-11.0 [facility] Comment on above: Order Comment: REDRA W. PREVIOUS SPECIMEN REJECTED DUE TO RESULTS NOT COMING THROUGH AND SEEM TO BE ERRONEOUS. 01/22/25219 Mora Patel. NOTIFIED DELMY FOR REDRAW Performed By: #### L 509.7001, L100.0100, L503.6005, L503.7505, L501.3620, L500.2500, L501.5200, L500.3400 #### [facility] [address] [place], [place], [id number] CRPon 03-10-2025 C-REACTIVE PROT 21.40 mg/L High 0.0-3.0 [facility] Comment on above: Order Comment: REDRA W. PREVIOUS SPECIMEN REJECTED DUE TO RESULTS NOT COMING THROUGH AND SEEM TO BE ERRONEOUS. 01/22/25219 Mora Patel. NOTIFIED DELMY FOR REDRAW Performed By: #### L 509.7001, L100.0100, L503.6005, L503.7505, L501.3620, L500.2500, L501.5200, L500.3400 #### [facility] [address] [place], [place], [id number] Comprehensive Metabolic Prof ilon 03-10-2025 Albumin [Mass/Vol] 2.4 g/dL Low 3.4-4.8 [facility] Comment on above: Order Comment: REDRA W. PREVIOUS SPECIMEN REJECTED DUE TO RESULTS NOT COMING THROUGH AND SEEM TO BE ERRONEOUS. 01/22/25219 Mora Patel. NOTIFIED DELMY FOR REDRAW Performed By: #### L 509.7001, L100.0100, L503.6005, L503.7505, L501.3620, L500.2500, L501.5200, L500.3400 #### [facility] [address] [place], [address] Albumin/Globulin [Mass ratio] 0.5 {ratio} Low 0.9-2.4 [facility] Comment on above: Order Comment: REDRA W. PREVIOUS SPECIMEN REJECTED DUE TO RESULTS NOT COMING THROUGH AND SEEM TO BE ERRONEOUS. 01/22/25219 Mora Patel. NOTIFIED DELMY FOR REDRAW Performed By: #### L 509.7001, L100.0100, L503.6005, L503.7505, L501.3620, L500.2500, L501.5200, L500.3400 #### [facility] [address] [place], [address] ([phone] ALK PHOS 76 U/L Normal 40-129 [facility] Comment on above: Order Comment: REDRA W. PREVIOUS SPECIMEN REJECTED DUE TO RESULTS NOT COMING THROUGH AND SEEM TO BE ERRONEOUS. 01/22/25219 Mora Patel. NOTIFIED DELMY FOR REDRAW Performed By: #### L 509.7001, L100.0100, L503.6005, L503.7505, L501.3620, L500.2500, L501.5200, L500.3400 #### [facility] [address] [place], [place], [phone] (129 ALT [Catalytic activity/Vol] 14 U/L Normal <=46 [facility] Comment on above: Order Comment: REDRA W. PREVIOUS SPECIMEN REJECTED DUE TO RESULTS NOT COMING THROUGH AND SEEM TO BE ERRONEOUS. 01/22/25219 Mora Patel. NOTIFIED DELMY FOR REDRAW Performed By: #### L 509.7001, L100.0100, L503.6005, L503.7505, L501.3620, L500.2500, L501.5200, L500.3400 #### [facility] [address] [place], [address] AST [Catalytic activity/Vol] 32 U/L Normal <=37 [facility] Comment on above: Order Comment: REDRA W. PREVIOUS SPECIMEN REJECTED DUE TO RESULTS NOT COMING THROUGH AND SEEM TO BE ERRONEOUS. 01/22/25219 Mora Patel. NOTIFIED DELMY FOR REDRAW Performed By: #### L 509.7001, L100.0100, L503.6005, L503.7505, L501.3620, L500.2500, L501.5200, L500.3400 #### [facility] [address] [place], [address] Bilirubin [Mass/Vol] 0.56 mg/dL Normal 0.00-1.30 [facility] Comment on above: Order Comment: REDRA W. PREVIOUS SPECIMEN REJECTED DUE TO RESULTS NOT COMING THROUGH AND SEEM TO BE ERRONEOUS. 01/22/25219 Mora Patel. NOTIFIED DELMY FOR REDRAW Performed By: #### L 509.7001, L100.0100, L503.6005, L503.7505, L501.3620, L500.2500, L501.5200, L500.3400 #### [facility] [address] [place], [address] BUN/CRE 12.7 RATIO Normal 10-20 [facility] Comment on above: Order Comment: REDRA W. PREVIOUS SPECIMEN REJECTED DUE TO RESULTS NOT COMING THROUGH AND SEEM TO BE ERRONEOUS. 01/22/25219 Mora Patel. NOTIFIED DELMY FOR REDRAW Performed By: #### L 509.7001, L100.0100, L503.6005, L503.7505, L501.3620, L500.2500, L501.5200, L500.3400 #### [facility] [address] [place], [address] Calcium [Mass/Vol] 8.8 mg/dL Normal 7.6-11.0 [facility] Comment on above: Order Comment: REDRA W. PREVIOUS SPECIMEN REJECTED DUE TO RESULTS NOT COMING THROUGH AND SEEM TO BE ERRONEOUS. 01/22/25219 Mora Patel. NOTIFIED DELMY FOR REDRAW Performed By: #### L 509.7001, L100.0100, L503.6005, L503.7505, L501.3620, L500.2500, L501.5200, L500.3400 #### [facility] [address] [place], [place], [phone] ([phone] Chloride [Moles/Vol] 102 mmol/L Normal 98-108 [facility] Comment on above: Order Comment: REDRA W. PREVIOUS SPECIMEN REJECTED DUE TO RESULTS NOT COMING THROUGH AND SEEM TO BE ERRONEOUS. 01/22/25219 Mora Patel. NOTIFIED DELMY FOR REDRAW Performed By: #### L 509.7001, L100.0100, L503.6005, L503.7505, L501.3620, L500.2500, L501.5200, L500.3400 #### [facility] [address] [place], [address] CO2 [Moles/Vol] 21.8 mmol/L Normal 21.0-32.0 [facility] Comment on above: Order Comment: REDRA W. PREVIOUS SPECIMEN REJECTED DUE TO RESULTS NOT COMING THROUGH AND SEEM TO BE ERRONEOUS. 01/22/25219 Mora Patel. NOTIFIED DELMY FOR REDRAW Performed By: #### L 509.7001, L100.0100, L503.6005, L503.7505, L501.3620, L500.2500, L501.5200, L500.3400 #### [facility] [address] [place], [place], [phone] ([phone] Creatinine [Mass/Vol] 0.45 mg/dL Low 0.70-1.20 [facility] Comment on above: Order Comment: REDRA W. PREVIOUS SPECIMEN REJECTED DUE TO RESULTS NOT COMING THROUGH AND SEEM TO BE ERRONEOUS. 01/22/25219 Mora Patel. NOTIFIED DELMY FOR REDRAW Performed By: #### L 509.7001, L100.0100, L503.6005, L503.7505, L501.3620, L500.2500, L501.5200, L500.3400 #### [facility] [address] [place], [place], [id number] GAP 13 Normal 5-15 [facility] Comment on above: Order Comment: REDRA W. PREVIOUS SPECIMEN REJECTED DUE TO RESULTS NOT COMING THROUGH AND SEEM TO BE ERRONEOUS. 01/22/25219 Mora Patel. NOTIFIED DELMY FOR REDRAW Performed By: #### L 509.7001, L100.0100, L503.6005, L503.7505, L501.3620, L500.2500, L501.5200, L500.3400 #### [facility] [address] [place], [address] GFR/1.73 sq M.predicted among non-blacks MDRD (S/P/Bld) [Vol rate/Area] 112 mL/min/{1.73_m2} Normal >60 [facility] Comment on above: Order Comment: REDRA W. PREVIOUS SPECIMEN REJECTED DUE TO RESULTS NOT COMING THROUGH AND SEEM TO BE ERRONEOUS. 01/22/25219 Mora Patel. NOTIFIED DELMY FOR REDRAW Result Comment: mL/m in/1.73m2 CKD-EPI Creatinine Equation (2020) Performed By: #### L 509.7001, L100.0100, L503.6005, L503.7505, L501.3620, L500.2500, L501.5200, L500.3400 #### [facility] [address] [place], [place], [phone] Globulin (S) [Mass/Vol] 4.7 g/dL High 2.2-4.2 [facility] Comment on above: Order Comment: REDRA W. PREVIOUS SPECIMEN REJECTED DUE TO RESULTS NOT COMING THROUGH AND SEEM TO BE ERRONEOUS. 01/22/25219 Mora Patel. NOTIFIED DELMY FOR REDRAW Performed By: #### L 509.7001, L100.0100, L503.6005, L503.7505, L501.3620, L500.2500, L501.5200, L500.3400 #### [facility] [address] [place], [address] Glucose [Mass/Vol] 71 mg/dL Normal 70-99 [facility] Comment on above: Order Comment: REDRA W. PREVIOUS SPECIMEN REJECTED DUE TO RESULTS NOT COMING THROUGH AND SEEM TO BE ERRONEOUS. 01/22/25219 Mora Patel. NOTIFIED DELMY FOR REDRAW Performed By: #### L 509.7001, L100.0100, L503.6005, L503.7505, L501.3620, L500.2500, L501.5200, L500.3400 #### [facility] [address] [place], [address] Potassium [Moles/Vol] 4.1 mmol/L Normal 3.3-5.1 [facility] Comment on above: Order Comment: REDRA W. PREVIOUS SPECIMEN REJECTED DUE TO RESULTS NOT COMING THROUGH AND SEEM TO BE ERRONEOUS. 01/22/25219 Mora Patel. NOTIFIED DELMY FOR REDRAW Performed By: #### L 509.7001, L100.0100, L503.6005, L503.7505, L501.3620, L500.2500, L501.5200, L500.3400 #### [facility] [address] [place], [address] Sodium [Moles/Vol] 137 mmol/L Normal 133-145 [facility] Comment on above: Order Comment: REDRA W. PREVIOUS SPECIMEN REJECTED DUE TO RESULTS NOT COMING THROUGH AND SEEM TO BE ERRONEOUS. 01/22/25219 Mora Patel. NOTIFIED DELMY FOR REDRAW Performed By: #### L 509.7001, L100.0100, L503.6005, L503.7505, L501.3620, L500.2500, L501.5200, L500.3400 #### [facility] [address] [place], [address] T PROT 7.1 g/dL Normal 5.9-8.4 [facility] Comment on above: Order Comment: REDRA W. PREVIOUS SPECIMEN REJECTED DUE TO RESULTS NOT COMING THROUGH AND SEEM TO BE ERRONEOUS. 01/22/25219 Mora Patel. NOTIFIED DELMY FOR REDRAW Performed By: #### L 509.7001, L100.0100, L503.6005, L503.7505, L501.3620, L500.2500, L501.5200, L500.3400 #### [facility] [address] [place], [address] Urea nitrogen [Mass/Vol] 6 mg/dL Normal 4-19 [facility] Comment on above: Order Comment: REDRA W. PREVIOUS SPECIMEN REJECTED DUE TO RESULTS NOT COMING THROUGH AND SEEM TO BE ERRONEOUS. 01/22/25219 Mora Patel. NOTIFIED DELMY FOR REDRAW Performed By: #### L 509.7001, L100.0100, L503.6005, L503.7505, L501.3620, L500.2500, L501.5200, L500.3400 #### [facility] [address] [place], [place], [id number] Magnesiumon 03-10-2025 Magnesium [Mass/Vol] 2.0 mg/dL Normal 1.5-2.2 [facility] Comment on above: Order Comment: REDRA W. PREVIOUS SPECIMEN REJECTED DUE TO RESULTS NOT COMING THROUGH AND SEEM TO BE ERRONEOUS. 01/22/25219 Mora Patel. NOTIFIED DELMY FOR REDRAW Performed By: #### L 509.7001, L100.0100, L503.6005, L503.7505, L501.3620, L500.2500, L501.5200, L500.3400 #### [facility] [address] [place], [address] CBC W/Diff, Automatedon - Absolute Lymph 0.88 X10 3/uL Normal 0.83-4.51 [facility] Comment on above: Order Comment: REDRA W. PREVIOUS SPECIMEN REJECTED DUE TO RESULTS NOT COMING THROUGH AND SEEM TO BE ERRONEOUS. 01/22/25219 Mora Patel. NOTIFIED DELMY FOR REDRAW Performed By: #### L 509.7001, L100.0100, L503.6005, L503.7505, L501.3620, L500.2500, L501.5200, L500.3400 #### [facility] [address] [place], [address] Absolute Neut 3.6 X10 3/uL Normal 2.0-7.7 [facility] Comment on above: Order Comment: REDRA W. PREVIOUS SPECIMEN REJECTED DUE TO RESULTS NOT COMING THROUGH AND SEEM TO BE ERRONEOUS. 01/22/25219 Mora Patel. NOTIFIED DELMY FOR REDRAW Performed By: #### L 509.7001, L100.0100, L503.6005, L503.7505, L501.3620, L500.2500, L501.5200, L500.3400 #### [facility] [address] [place], [address] Basophils/100 WBC (Bld) 1.2 % High 0-1 [facility] Comment on above: Order Comment: REDRA W. PREVIOUS SPECIMEN REJECTED DUE TO RESULTS NOT COMING THROUGH AND SEEM TO BE ERRONEOUS. 01/22/25219 Mora Patel. NOTIFIED DELMY FOR REDRAW Performed By: #### L 509.7001, L100.0100, L503.6005, L503.7505, L501.3620, L500.2500, L501.5200, L500.3400 #### [facility] [address] [place], [address] Eosinophils/100 WBC (Bld) 5.1 % High 0-5 [facility] Comment on above: Order Comment: REDRA W. PREVIOUS SPECIMEN REJECTED DUE TO RESULTS NOT COMING THROUGH AND SEEM TO BE ERRONEOUS. 01/22/25219 Mora Patel. NOTIFIED DELMY FOR REDRAW Performed By: #### L 509.7001, L100.0100, L503.6005, L503.7505, L501.3620, L500.2500, L501.5200, L500.3400 #### [facility] [address] [place], [address] Erythrocyte distribution width (RBC) [Ratio] 15.7 % High 11.6-14.6 [facility] Comment on above: Order Comment: REDRA W. PREVIOUS SPECIMEN REJECTED DUE TO RESULTS NOT COMING THROUGH AND SEEM TO BE ERRONEOUS. 01/22/25219 Mora Patel. NOTIFIED DELMY FOR REDRAW Performed By: #### L 509.7001, L100.0100, L503.6005, L503.7505, L501.3620, L500.2500, L501.5200, L500.3400 #### [facility] [address] [place], [place], [phone] ([phone] Hematocrit (Bld) [Volume fraction] 32.2 % Low 40-54 [facility] Comment on above: Order Comment: REDRA W. PREVIOUS SPECIMEN REJECTED DUE TO RESULTS NOT COMING THROUGH AND SEEM TO BE ERRONEOUS. 01/22/25219 Mora Patel. NOTIFIED DELMY FOR REDRAW Performed By: #### L 509.7001, L100.0100, L503.6005, L503.7505, L501.3620, L500.2500, L501.5200, L500.3400 #### [facility] [address] [place], [place], [phone] ([phone] Hemoglobin (Bld) [Mass/Vol] 9.8 g/dL Low 13.0-16.5 [facility] Comment on above: Order Comment: REDRA W. PREVIOUS SPECIMEN REJECTED DUE TO RESULTS NOT COMING THROUGH AND SEEM TO BE ERRONEOUS. 01/22/25219 Mora Patel. NOTIFIED DELMY FOR REDRAW Performed By: #### L 509.7001, L100.0100, L503.6005, L503.7505, L501.3620, L500.2500, L501.5200, L500.3400 #### [facility] [address] [place], [address] IG% 0.900 Normal 0.0-0.9 [facility] Comment on above: Order Comment: REDRA W. PREVIOUS SPECIMEN REJECTED DUE TO RESULTS NOT COMING THROUGH AND SEEM TO BE ERRONEOUS. 01/22/25219 Mora Patel. NOTIFIED DELMY FOR REDRAW Result Comment: IG% - Immature Granulocytes (promyelocytes, myelocytes and metamyelocytes) > 1% indicates that a LEFT SHIFT is Present. Performed By: #### L 509.7001, L100.0100, L503.6005, L503.7505, L501.3620, L500.2500, L501.5200, L500.3400 #### [facility] [address] [place], [address] Lymphocytes/100 WBC (Bld) 15.1 % Low 19-41 [facility] Comment on above: Order Comment: REDRA W. PREVIOUS SPECIMEN REJECTED DUE TO RESULTS NOT COMING THROUGH AND SEEM TO BE ERRONEOUS. 01/22/25219 Mora Patel. NOTIFIED DEMLY FOR REDRAW Performed By: #### L 509.7001, L100.0100, L503.6005, L503.7505, L501.3620, L500.2500, L501.5200, L500.3400 #### [facility] [address] [place], [address] MCH (RBC) [Entitic mass] 28.5 pg Normal 27.0-32.0 [facility] Comment on above: Order Comment: REDRA W. PREVIOUS SPECIMEN REJECTED DUE TO RESULTS NOT COMING THROUGH AND SEEM TO BE ERRONEOUS. 01/22/25219 Mora Patel. NOTIFIED DELMY FOR REDRAW Performed By: #### L 509.7001, L100.0100, L503.6005, L503.7505, L501.3620, L500.2500, L501.5200, L500.3400 #### [facility] [address] [place], [address] MCHC (RBC) [Mass/Vol] 30.4 g/dL Low 32-36 [facility] Comment on above: Order Comment: REDRA W. PREVIOUS SPECIMEN REJECTED DUE TO RESULTS NOT COMING THROUGH AND SEEM TO BE ERRONEOUS. 01/22/25219 Mora Patel. NOTIFIED DELMY FOR REDRAW Performed By: #### L 509.7001, L100.0100, L503.6005, L503.7505, L501.3620, L500.2500, L501.5200, L500.3400 #### [facility] [address] [place], [address] MCV (RBC) [Entitic vol] 93.6 fL Normal 80-94 [facility] Comment on above: Order Comment: REDRA W. PREVIOUS SPECIMEN REJECTED DUE TO RESULTS NOT COMING THROUGH AND SEEM TO BE ERRONEOUS. 01/22/25219 Mora Patel. NOTIFIED DELMY FOR REDRAW Performed By: #### L 509.7001, L100.0100, L503.6005, L503.7505, L501.3620, L500.2500, L501.5200, L500.3400 #### [facility] [address] [place], [address] Monocytes/100 WBC (Bld) 16.4 % High 0-10 [facility] Comment on above: Order Comment: REDRA W. PREVIOUS SPECIMEN REJECTED DUE TO RESULTS NOT COMING THROUGH AND SEEM TO BE ERRONEOUS. 01/22/25219 Mora Patel. NOTIFIED DELMY FOR REDRAW Performed By: #### L 509.7001, L100.0100, L503.6005, L503.7505, L501.3620, L500.2500, L501.5200, L500.3400 #### [facility] [address] [place], [address] Neutrophils/100 WBC (Bld) 61.3 % Normal 47-70 [facility] Comment on above: Order Comment: REDRA W. PREVIOUS SPECIMEN REJECTED DUE TO RESULTS NOT COMING THROUGH AND SEEM TO BE ERRONEOUS. 01/22/25219 Mora Patel. NOTIFIED DELMY FOR REDRAW Performed By: #### L 509.7001, L100.0100, L503.6005, L503.7505, L501.3620, L500.2500, L501.5200, L500.3400 #### [facility] [address] [place], [address] Nucleated RBC (Bld) [#/Vol] 0 10*3/uL Normal 0-5 [facility] Comment on above: Order Comment: REDRA W. PREVIOUS SPECIMEN REJECTED DUE TO RESULTS NOT COMING THROUGH AND SEEM TO BE ERRONEOUS. 01/22/25219 Mora Patel. NOTIFIED DELMY FOR REDRAW Performed By: #### L 509.7001, L100.0100, L503.6005, L503.7505, L501.3620, L500.2500, L501.5200, L500.3400 #### [facility] [address] [place], [address] Platelet mean volume (Bld) [Entitic vol] 8.3 fL Normal 6.2-12.0 [facility] Comment on above: Order Comment: REDRA W. PREVIOUS SPECIMEN REJECTED DUE TO RESULTS NOT COMING THROUGH AND SEEM TO BE ERRONEOUS. 01/22/25219 Mora Patel. NOTIFIED DELMY FOR REDRAW Performed By: #### L 509.7001, L100.0100, L503.6005, L503.7505, L501.3620, L500.2500, L501.5200, L500.3400 #### [facility] [address] [place], [address] Platelets (Bld) [#/Vol] 350 10*3/uL Normal 150-450 [facility] Comment on above: Order Comment: REDRA W. PREVIOUS SPECIMEN REJECTED DUE TO RESULTS NOT COMING THROUGH AND SEEM TO BE ERRONEOUS. 01/22/25219 Mora Patel. NOTIFIED DELMY FOR REDRAW Performed By: #### L 509.7001, L100.0100, L503.6005, L503.7505, L501.3620, L500.2500, L501.5200, L500.3400 #### [facility] [address] [place], [address] RBC (Bld) [#/Vol] 3.44 10*6/uL Low 4.6-6.2 [facility] Comment on above: Order Comment: REDRA W. PREVIOUS SPECIMEN REJECTED DUE TO RESULTS NOT COMING THROUGH AND SEEM TO BE ERRONEOUS. 01/22/25219 Mora Patel. NOTIFIED DELMY FOR REDRAW Performed By: #### L 509.7001, L100.0100, L503.6005, L503.7505, L501.3620, L500.2500, L501.5200, L500.3400 #### [facility] [address] [place], [address] RDW SD 53.7 fl High 35.1-43.9 [facility] Comment on above: Order Comment: REDRA W. PREVIOUS SPECIMEN REJECTED DUE TO RESULTS NOT COMING THROUGH AND SEEM TO BE ERRONEOUS. 01/22/25219 Mora Patel. NOTIFIED DELMY FOR REDRAW Performed By: #### L 509.7001, L100.0100, L503.6005, L503.7505, L501.3620, L500.2500, L501.5200, L500.3400 #### [facility] [address] [place], [address] WBC (Bld) [#/Vol] 5.8 10*3/uL Normal 4.4-11.0 [facility] Comment on above: Order Comment: REDRA W. PREVIOUS SPECIMEN REJECTED DUE TO RESULTS NOT COMING THROUGH AND SEEM TO BE ERRONEOUS. 01/22/25219 Mora Patel. NOTIFIED DELMY FOR REDRAW Performed By: #### L 509.7001, L100.0100, L503.6005, L503.7505, L501.3620, L500.2500, L501.5200, L500.3400 #### [facility] [address] [place], [address] CRPon 03-03-2025 C-REACTIVE PROT 49.60 mg/L High 0.0-3.0 [facility] Comment on above: Order Comment: REDRA W. PREVIOUS SPECIMEN REJECTED DUE TO RESULTS NOT COMING THROUGH AND SEEM TO BE ERRONEOUS. 01/22/25219 Mora Patel. NOTIFIED DELMY FOR REDRAW Performed By: #### L 509.7001, L100.0100, L503.6005, L503.7505, L501.3620, L500.2500, L501.5200, L500.3400 #### [facility] [address] [place], [address] Comprehensive Metabolic Prof ilon 03-03-2025 Albumin [Mass/Vol] 2.2 g/dL Low 3.4-4.8 [facility] Comment on above: Order Comment: REDRA W. PREVIOUS SPECIMEN REJECTED DUE TO RESULTS NOT COMING THROUGH AND SEEM TO BE ERRONEOUS. 01/22/25219 Mora Patel. NOTIFIED DELMY FOR REDRAW Performed By: #### L 509.7001, L100.0100, L503.6005, L503.7505, L501.3620, L500.2500, L501.5200, L500.3400 #### [facility] [address] [place], [place], [id number] Albumin/Globulin [Mass ratio] 0.5 {ratio} Low 0.9-2.4 [facility] Comment on above: Order Comment: REDRA W. PREVIOUS SPECIMEN REJECTED DUE TO RESULTS NOT COMING THROUGH AND SEEM TO BE ERRONEOUS. 01/22/25219 Mora Patel. NOTIFIED DELMY FOR REDRAW Performed By: #### L 509.7001, L100.0100, L503.6005, L503.7505, L501.3620, L500.2500, L501.5200, L500.3400 #### [facility] [address] [place], [address] ALK PHOS 87 U/L Normal 40-129 [facility] Comment on above: Order Comment: REDRA W. PREVIOUS SPECIMEN REJECTED DUE TO RESULTS NOT COMING THROUGH AND SEEM TO BE ERRONEOUS. 01/22/25219 Mora Patel. NOTIFIED DELMY FOR REDRAW Performed By: #### L 509.7001, L100.0100, L503.6005, L503.7505, L501.3620, L500.2500, L501.5200, L500.3400 #### [facility] [address] [place], [address] ALT [Catalytic activity/Vol] 7 U/L Normal <=46 [facility] Comment on above: Order Comment: REDRA W. PREVIOUS SPECIMEN REJECTED DUE TO RESULTS NOT COMING THROUGH AND SEEM TO BE ERRONEOUS. 01/22/25219 Mora Patel. NOTIFIED DELMY FOR REDRAW Performed By: #### L 509.7001, L100.0100, L503.6005, L503.7505, L501.3620, L500.2500, L501.5200, L500.3400 #### [facility] [address] [place], [address] AST [Catalytic activity/Vol] 25 U/L Normal <=37 [facility] Comment on above: Order Comment: REDRA W. PREVIOUS SPECIMEN REJECTED DUE TO RESULTS NOT COMING THROUGH AND SEEM TO BE ERRONEOUS. 01/22/25219 Mora Patel. NOTIFIED DELMY FOR REDRAW Performed By: #### L 509.7001, L100.0100, L503.6005, L503.7505, L501.3620, L500.2500, L501.5200, L500.3400 #### [facility] [address] [place], [address] Bilirubin [Mass/Vol] 0.40 mg/dL Normal 0.00-1.30 [facility] Comment on above: Order Comment: REDRA W. PREVIOUS SPECIMEN REJECTED DUE TO RESULTS NOT COMING THROUGH AND SEEM TO BE ERRONEOUS. 01/22/25219 Mora Patel. NOTIFIED DELMY FOR REDRAW Performed By: #### L 509.7001, L100.0100, L503.6005, L503.7505, L501.3620, L500.2500, L501.5200, L500.3400 #### [facility] [address] [place], [address] BUN/CRE 8.4 RATIO Low 10-20 [facility] Comment on above: Order Comment: REDRA W. PREVIOUS SPECIMEN REJECTED DUE TO RESULTS NOT COMING THROUGH AND SEEM TO BE ERRONEOUS. 01/22/25219 Mora Patel. NOTIFIED DELMY FOR REDRAW Performed By: #### L 509.7001, L100.0100, L503.6005, L503.7505, L501.3620, L500.2500, L501.5200, L500.3400 #### [facility] [address] [place], [address] Calcium [Mass/Vol] 8.2 mg/dL Normal 7.6-11.0 [facility] Comment on above: Order Comment: REDRA W. PREVIOUS SPECIMEN REJECTED DUE TO RESULTS NOT COMING THROUGH AND SEEM TO BE ERRONEOUS. 01/22/25219 Mora Patel. NOTIFIED DELMY FOR REDRAW Performed By: #### L 509.7001, L100.0100, L503.6005, L503.7505, L501.3620, L500.2500, L501.5200, L500.3400 #### [facility] [address] [place], [address] Chloride [Moles/Vol] 97 mmol/L Low 98-108 [facility] Comment on above: Order Comment: REDRA W. PREVIOUS SPECIMEN REJECTED DUE TO RESULTS NOT COMING THROUGH AND SEEM TO BE ERRONEOUS. 01/22/25219 Mora Patel. NOTIFIED DELMY FOR REDRAW Performed By: #### L 509.7001, L100.0100, L503.6005, L503.7505, L501.3620, L500.2500, L501.5200, L500.3400 #### [facility] [address] [place], [place], [phone] ([phone]) CO2 [Moles/Vol] 28.3 mmol/L Normal 21.0-32.0 [facility] Comment on above: Order Comment: REDRA W. PREVIOUS SPECIMEN REJECTED DUE TO RESULTS NOT COMING THROUGH AND SEEM TO BE ERRONEOUS. 01/22/25219 Mora Patel. NOTIFIED DELMY FOR REDRAW Performed By: #### L 509.7001, L100.0100, L503.6005, L503.7505, L501.3620, L500.2500, L501.5200, L500.3400 #### [facility] [address] [place], [place], [phone] ([phone] Creatinine [Mass/Vol] 0.53 mg/dL Low 0.70-1.20 [facility] Comment on above: Order Comment: REDRA W. PREVIOUS SPECIMEN REJECTED DUE TO RESULTS NOT COMING THROUGH AND SEEM TO BE ERRONEOUS. 01/22/25219 Mora Patel. NOTIFIED DELMY FOR REDRAW Performed By: #### L 509.7001, L100.0100, L503.6005, L503.7505, L501.3620, L500.2500, L501.5200, L500.3400 #### [facility] [address] [place], [place], [phone] (588) GAP 8 Normal 5-15 [facility] Comment on above: Order Comment: REDRA W. PREVIOUS SPECIMEN REJECTED DUE TO RESULTS NOT COMING THROUGH AND SEEM TO BE ERRONEOUS. 01/22/25219 Mora Patel. NOTIFIED DELMY FOR REDRAW Performed By: #### L 509.7001, L100.0100, L503.6005, L503.7505, L501.3620, L500.2500, L501.5200, L500.3400 #### [facility] [address] [place], [address] GFR/1.73 sq M.predicted among non-blacks MDRD (S/P/Bld) [Vol rate/Area] 107 mL/min/{1.73_m2} Normal >60 [facility] Comment on above: Order Comment: REDRA W. PREVIOUS SPECIMEN REJECTED DUE TO RESULTS NOT COMING THROUGH AND SEEM TO BE ERRONEOUS. 01/22/25219 Mora Patel. NOTIFIED DELMY FOR REDRAW Result Comment: mL/m in/1.73m2 CKD-EPI Creatinine Equation (2020) Performed By: #### L 509.7001, L100.0100, L503.6005, L503.7505, L501.3620, L500.2500, L501.5200, L500.3400 #### [facility] [address] [place], [place], [phone] ([phone] Globulin (S) [Mass/Vol] 4.8 g/dL High 2.2-4.2 [facility] Comment on above: Order Comment: REDRA W. PREVIOUS SPECIMEN REJECTED DUE TO RESULTS NOT COMING THROUGH AND SEEM TO BE ERRONEOUS. 01/22/25219 Mora Patel. NOTIFIED DELMY FOR REDRAW Performed By: #### L 509.7001, L100.0100, L503.6005, L503.7505, L501.3620, L500.2500, L501.5200, L500.3400 #### [facility] [address] [place], [address] Glucose [Mass/Vol] 90 mg/dL Normal 70-99 [facility] Comment on above: Order Comment: REDRA W. PREVIOUS SPECIMEN REJECTED DUE TO RESULTS NOT COMING THROUGH AND SEEM TO BE ERRONEOUS. 01/22/25219 Mora Patel. NOTIFIED DELMY FOR REDRAW Performed By: #### L 509.7001, L100.0100, L503.6005, L503.7505, L501.3620, L500.2500, L501.5200, L500.3400 #### [facility] [address] [place], [address] Potassium [Moles/Vol] 4.3 mmol/L Normal 3.3-5.1 [facility] Comment on above: Order Comment: REDRA W. PREVIOUS SPECIMEN REJECTED DUE TO RESULTS NOT COMING THROUGH AND SEEM TO BE ERRONEOUS. 01/22/25219 Mora Patel. NOTIFIED DELMY FOR REDRAW Performed By: #### L 509.7001, L100.0100, L503.6005, L503.7505, L501.3620, L500.2500, L501.5200, L500.3400 #### [facility] [address] [place], [address] Sodium [Moles/Vol] 133 mmol/L Normal 133-145 [facility] Comment on above: Order Comment: REDRA W. PREVIOUS SPECIMEN REJECTED DUE TO RESULTS NOT COMING THROUGH AND SEEM TO BE ERRONEOUS. 01/22/25219 Mora Patel. NOTIFIED DELMY FOR REDRAW Performed By: #### L 509.7001, L100.0100, L503.6005, L503.7505, L501.3620, L500.2500, L501.5200, L500.3400 #### [facility] [address] [place], [address] T PROT 7.0 g/dL Normal 5.9-8.4 [facility] Comment on above: Order Comment: REDRA W. PREVIOUS SPECIMEN REJECTED DUE TO RESULTS NOT COMING THROUGH AND SEEM TO BE ERRONEOUS. 01/22/25219 Mora Patel. NOTIFIED DELMY FOR REDRAW Performed By: #### L 509.7001, L100.0100, L503.6005, L503.7505, L501.3620, L500.2500, L501.5200, L500.3400 #### [facility] [address] [place], [address] Urea nitrogen [Mass/Vol] 5 mg/dL Normal 4-19 [facility] Comment on above: Order Comment: REDRA W. PREVIOUS SPECIMEN REJECTED DUE TO RESULTS NOT COMING THROUGH AND SEEM TO BE ERRONEOUS. 01/22/25219 Mora Patel. NOTIFIED DELMY FOR REDRAW Performed By: #### L 509.7001, L100.0100, L503.6005, L503.7505, L501.3620, L500.2500, L501.5200, L500.3400 #### [facility] [address] [place], [address] Magnesiumon 03-03-2025 Magnesium [Mass/Vol] 2.0 mg/dL Normal 1.5-2.2 [facility] Comment on above: Order Comment: REDRA W. PREVIOUS SPECIMEN REJECTED DUE TO RESULTS NOT COMING THROUGH AND SEEM TO BE ERRONEOUS. 01/22/25219 Mora Patel. NOTIFIED DELMY FOR REDRAW Performed By: #### L 509.7001, L100.0100, L503.6005, L503.7505, L501.3620, L500.2500, L501.5200, L500.3400 #### [facility] [address] [place], [address] Wound Cultureon 03-03-2025 WC NA Wound Culture PROBABLE PROTEUS. Pseudomonas aeruginosa Amount Growth 2+ Escherichia coli Escherichia coli PMIR Amount Growth 1+ Proteus mirabilis Amikacin Islt TAMMY 4 Ciprofloxacin Islt TAMMY >=4 R Imipenem Islt TAMMY >=16 levoFLOXacin Islt TAMMY >=8 R Meropenem Islt TAMMY >=16 R Pip+Tazo Islt TAMMY >=128 R Tobramycin Islt TAMMY 2 I Escherichia coli: REACTION Ampicillin Islt TAMMY >=32 R Ampicillin+Sulbac Islt TAMMY >=32 R Cefepime Islt TAMMY 0.5 cefTRIAXone Islt TAMMY <=0.25 S Ciprofloxacin Islt TAMMY 0.5 I B-Lactamase Extended Susc Islt NEG Gentamicin Islt TAMMY <=1 S levoFLOXacin Islt TAMMY 1 I Meropenem Islt TAMMY <=0.25 S Pip+Tazo Islt TAMMY >=128 R TMP SMX Islt TAMMY <=20 S Proteus mirabilis: REACTION Ampicillin Islt TAMMY <=2 S Ampicillin+Sulbac Islt TAMMY <=2 S Cefepime Islt TAMMY <=0.12 cefTRIAXone Islt TAMMY <=0.25 S Ciprofloxacin Islt TAMMY <=0.06 S Gentamicin Islt TAMMY <=1 S levoFLOXacin Islt TAMMY <=0.12 S Meropenem Islt TAMMY 1 S Pip+Tazo Islt TAMMY <=4 S TMP SMX Islt TAMMY <=20 S Normal [facility] Comment on above: Performed By: #### L 509.7001, L100.0100, L503.6005, L503.7505, L501.3620, L500.2500, L501.5200, L500.3400 #### [facility] [address] [place], [place], [id number] Gram Stainon 02-27-2025 GS Negative Normal [facility] Comment on above: Performed By: #### L 509.7001, L100.0100, L503.6005, L503.7505, L501.3620, L500.2500, L501.5200, L500.3400 #### [facility] [address] [place], [address] GS NA Gram Stain 1+ Gram negative rods 1+ Gram positive cocci No Epithelial cells Normal [facility] Comment on above: Performed By: #### L 509.7001, L100.0100, L503.6005, L503.7505, L501.3620, L500.2500, L501.5200, L500.3400 #### [facility] [address] [place], [place], [address] CBC W/Diff, Automatedon - Absolute Lymph 0.89 X10 3/uL Normal 0.83-4.51 [facility] Comment on above: Order Comment: SHREYAS Sommer PREVIOUS SPECIMEN REJECTED DUE TO RESULTS NOT COMING THROUGH AND SEEM TO BE ERRONEOUS. 01/22/250 Mora Patel. NOTIFIED DELMY FOR REDRAW Performed By: #### L 509.7001, L100.0100, L503.6005, L503.7505, L501.3620, L500.2500, L501.5200, L500.3400 #### [facility] [address] [place], [address] Absolute Neut 4.4 X10 3/uL Normal 2.0-7.7 [facility] Comment on above: Order Comment: REDRA W. PREVIOUS SPECIMEN REJECTED DUE TO RESULTS NOT COMING THROUGH AND SEEM TO BE ERRONEOUS. 01/22/25219 Mora Patel. NOTIFIED DELMY FOR REDRAW Performed By: #### L 509.7001, L100.0100, L503.6005, L503.7505, L501.3620, L500.2500, L501.5200, L500.3400 #### [facility] [address] [place], [address] Basophils/100 WBC (Bld) 0.9 % Normal 0-1 [facility] Comment on above: Order Comment: REDRA W. PREVIOUS SPECIMEN REJECTED DUE TO RESULTS NOT COMING THROUGH AND SEEM TO BE ERRONEOUS. 01/22/25219 Mora Patel. NOTIFIED DELMY FOR REDRAW Performed By: #### L 509.7001, L100.0100, L503.6005, L503.7505, L501.3620, L500.2500, L501.5200, L500.3400 #### [facility] [address] [place], [address] Eosinophils/100 WBC (Bld) 9.5 % High 0-5 [facility] Comment on above: Order Comment: REDRA W. PREVIOUS SPECIMEN REJECTED DUE TO RESULTS NOT COMING THROUGH AND SEEM TO BE ERRONEOUS. 01/22/25219 Mora Patel. NOTIFIED DELMY FOR REDRAW Performed By: #### L 509.7001, L100.0100, L503.6005, L503.7505, L501.3620, L500.2500, L501.5200, L500.3400 #### [facility] [address] [place], [address] Erythrocyte distribution width (RBC) [Ratio] 16.1 % High 11.6-14.6 [facility] Comment on above: Order Comment: REDRA W. PREVIOUS SPECIMEN REJECTED DUE TO RESULTS NOT COMING THROUGH AND SEEM TO BE ERRONEOUS. 01/22/25219 Mora Patel. NOTIFIED DELMY FOR REDRAW Performed By: #### L 509.7001, L100.0100, L503.6005, L503.7505, L501.3620, L500.2500, L501.5200, L500.3400 #### [facility] [address] [place], [place], [phone] (375) Hematocrit (Bld) [Volume fraction] 28.4 % Low 40-54 [facility] Comment on above: Order Comment: REDRA W. PREVIOUS SPECIMEN REJECTED DUE TO RESULTS NOT COMING THROUGH AND SEEM TO BE ERRONEOUS. 01/22/25219 Mora Patel. NOTIFIED DELMY FOR REDRAW Performed By: #### L 509.7001, L100.0100, L503.6005, L503.7505, L501.3620, L500.2500, L501.5200, L500.3400 #### [facility] [address] [place], [place], [phone] (562) Hemoglobin (Bld) [Mass/Vol] 8.7 g/dL Low 13.0-16.5 [facility] Comment on above: Order Comment: REDRA W. PREVIOUS SPECIMEN REJECTED DUE TO RESULTS NOT COMING THROUGH AND SEEM TO BE ERRONEOUS. 01/22/25219 Mora Patel. NOTIFIED DELMY FOR REDRAW Performed By: #### L 509.7001, L100.0100, L503.6005, L503.7505, L501.3620, L500.2500, L501.5200, L500.3400 #### [facility] [address] [place], [address] IG% 0.600 Normal 0.0-0.9 [facility] Comment on above: Order Comment: REDRA W. PREVIOUS SPECIMEN REJECTED DUE TO RESULTS NOT COMING THROUGH AND SEEM TO BE ERRONEOUS. 01/22/25219 Mora Patel. NOTIFIED DELMY FOR REDRAW Result Comment: IG% - Immature Granulocytes (promyelocytes, myelocytes and metamyelocytes) > 1% indicates that a LEFT SHIFT is Present. Performed By: #### L 509.7001, L100.0100, L503.6005, L503.7505, L501.3620, L500.2500, L501.5200, L500.3400 #### [facility] [address] [place], [address] Lymphocytes/100 WBC (Bld) 12.6 % Low 19-41 [facility] Comment on above: Order Comment: REDRA W. PREVIOUS SPECIMEN REJECTED DUE TO RESULTS NOT COMING THROUGH AND SEEM TO BE ERRONEOUS. 01/22/25219 Mora Patel. NOTIFIED DELMY FOR REDRAW Performed By: #### L 509.7001, L100.0100, L503.6005, L503.7505, L501.3620, L500.2500, L501.5200, L500.3400 #### [facility] [address] [place], [address] MCH (RBC) [Entitic mass] 29.0 pg Normal 27.0-32.0 [facility] Comment on above: Order Comment: REDRA W. PREVIOUS SPECIMEN REJECTED DUE TO RESULTS NOT COMING THROUGH AND SEEM TO BE ERRONEOUS. 01/22/25219 Mora Patel. NOTIFIED DELMY FOR REDRAW Performed By: #### L 509.7001, L100.0100, L503.6005, L503.7505, L501.3620, L500.2500, L501.5200, L500.3400 #### [facility] [address] [place], [address] MCHC (RBC) [Mass/Vol] 30.6 g/dL Low 32-36 [facility] Comment on above: Order Comment: REDRA W. PREVIOUS SPECIMEN REJECTED DUE TO RESULTS NOT COMING THROUGH AND SEEM TO BE ERRONEOUS. 01/22/25219 Mora Patel. NOTIFIED DELMY FOR REDRAW Performed By: #### L 509.7001, L100.0100, L503.6005, L503.7505, L501.3620, L500.2500, L501.5200, L500.3400 #### [facility] [address] [place], [address] MCV (RBC) [Entitic vol] 94.7 fL High 80-94 [facility] Comment on above: Order Comment: REDRA W. PREVIOUS SPECIMEN REJECTED DUE TO RESULTS NOT COMING THROUGH AND SEEM TO BE ERRONEOUS. 01/22/25219 Mora Patel. NOTIFIED DELMY FOR REDRAW Performed By: #### L 509.7001, L100.0100, L503.6005, L503.7505, L501.3620, L500.2500, L501.5200, L500.3400 #### [facility] [address] [place], [address] Monocytes/100 WBC (Bld) 14.6 % High 0-10 [facility] Comment on above: Order Comment: REDRA W. PREVIOUS SPECIMEN REJECTED DUE TO RESULTS NOT COMING THROUGH AND SEEM TO BE ERRONEOUS. 01/22/25219 Mora Patel. NOTIFIED DELMY FOR REDRAW Performed By: #### L 509.7001, L100.0100, L503.6005, L503.7505, L501.3620, L500.2500, L501.5200, L500.3400 #### [facility] [address] [place], [address] Neutrophils/100 WBC (Bld) 61.8 % Normal 47-70 [facility] Comment on above: Order Comment: REDRA W. PREVIOUS SPECIMEN REJECTED DUE TO RESULTS NOT COMING THROUGH AND SEEM TO BE ERRONEOUS. 01/22/25219 Mora Patel. NOTIFIED DELMY FOR REDRAW Performed By: #### L 509.7001, L100.0100, L503.6005, L503.7505, L501.3620, L500.2500, L501.5200, L500.3400 #### [facility] [address] [place], [address] Nucleated RBC (Bld) [#/Vol] 0 10*3/uL Normal 0-5 [facility] Comment on above: Order Comment: REDRA W. PREVIOUS SPECIMEN REJECTED DUE TO RESULTS NOT COMING THROUGH AND SEEM TO BE ERRONEOUS. 01/22/25219 Mora Patel. NOTIFIED DELMY FOR REDRAW Performed By: #### L 509.7001, L100.0100, L503.6005, L503.7505, L501.3620, L500.2500, L501.5200, L500.3400 #### [facility] [address] [place], [address] Platelet mean volume (Bld) [Entitic vol] 8.5 fL Normal 6.2-12.0 [facility] Comment on above: Order Comment: REDRA W. PREVIOUS SPECIMEN REJECTED DUE TO RESULTS NOT COMING THROUGH AND SEEM TO BE ERRONEOUS. 01/22/25219 Mora Patel. NOTIFIED DELMY FOR REDRAW Performed By: #### L 509.7001, L100.0100, L503.6005, L503.7505, L501.3620, L500.2500, L501.5200, L500.3400 #### [facility] [address] [place], [address] Platelets (Bld) [#/Vol] 335 10*3/uL Normal 150-450 [facility] Comment on above: Order Comment: REDRA W. PREVIOUS SPECIMEN REJECTED DUE TO RESULTS NOT COMING THROUGH AND SEEM TO BE ERRONEOUS. 01/22/25219 Mora Patel. NOTIFIED DELMY FOR REDRAW Performed By: #### L 509.7001, L100.0100, L503.6005, L503.7505, L501.3620, L500.2500, L501.5200, L500.3400 #### [facility] [address] [place], [address] RBC (Bld) [#/Vol] 3.00 10*6/uL Low 4.6-6.2 [facility] Comment on above: Order Comment: REDRA W. PREVIOUS SPECIMEN REJECTED DUE TO RESULTS NOT COMING THROUGH AND SEEM TO BE ERRONEOUS. 01/22/25219 Mora Patel. NOTIFIED DELMY FOR REDRAW Performed By: #### L 509.7001, L100.0100, L503.6005, L503.7505, L501.3620, L500.2500, L501.5200, L500.3400 #### [facility] [address] [place], [place], [phone] (650) RDW SD 54.7 fl High 35.1-43.9 [facility] Comment on above: Order Comment: REDRA W. PREVIOUS SPECIMEN REJECTED DUE TO RESULTS NOT COMING THROUGH AND SEEM TO BE ERRONEOUS. 01/22/25219 Mora Patel. NOTIFIED DELMY FOR REDRAW Performed By: #### L 509.7001, L100.0100, L503.6005, L503.7505, L501.3620, L500.2500, L501.5200, L500.3400 #### [facility] [address] [place], [place], [phone] (057) WBC (Bld) [#/Vol] 7.1 10*3/uL Normal 4.4-11.0 [facility] Comment on above: Order Comment: REDRA W. PREVIOUS SPECIMEN REJECTED DUE TO RESULTS NOT COMING THROUGH AND SEEM TO BE ERRONEOUS. 01/22/25219 Mora Patel. NOTIFIED DELMY FOR REDRAW Performed By: #### L 509.7001, L100.0100, L503.6005, L503.7505, L501.3620, L500.2500, L501.5200, L500.3400 #### [facility] [address] [place], [place], [phone] CRPon 02-24-2025 C-REACTIVE PROT 46.10 mg/L High 0.0-3.0 [facility] Comment on above: Order Comment: REDRA W. PREVIOUS SPECIMEN REJECTED DUE TO RESULTS NOT COMING THROUGH AND SEEM TO BE ERRONEOUS. 01/22/25219 Mora Patel. NOTIFIED DELMY FOR REDRAW Performed By: #### L 509.7001, L100.0100, L503.6005, L503.7505, L501.3620, L500.2500, L501.5200, L500.3400 #### [facility] [address] [place], [place], [id number] Comprehensive Metabolic Prof ilon 02-24-2025 Albumin [Mass/Vol] 2.1 g/dL Low 3.4-4.8 [facility] Comment on above: Order Comment: REDRA W. PREVIOUS SPECIMEN REJECTED DUE TO RESULTS NOT COMING THROUGH AND SEEM TO BE ERRONEOUS. 01/22/25219 Mora Patel. NOTIFIED DELMY FOR REDRAW Performed By: #### L 509.7001, L100.0100, L503.6005, L503.7505, L501.3620, L500.2500, L501.5200, L500.3400 #### [facility] [address] [place], [place], [id number] Albumin/Globulin [Mass ratio] 0.5 {ratio} Low 0.9-2.4 [facility] Comment on above: Order Comment: REDRA W. PREVIOUS SPECIMEN REJECTED DUE TO RESULTS NOT COMING THROUGH AND SEEM TO BE ERRONEOUS. 01/22/25219 Mora Patel. NOTIFIED DELMY FOR REDRAW Performed By: #### L 509.7001, L100.0100, L503.6005, L503.7505, L501.3620, L500.2500, L501.5200, L500.3400 #### [facility] [address] [place], [address] ALK PHOS 77 U/L Normal 40-129 [facility] Comment on above: Order Comment: REDRA W. PREVIOUS SPECIMEN REJECTED DUE TO RESULTS NOT COMING THROUGH AND SEEM TO BE ERRONEOUS. 01/22/25219 Mora Patel. NOTIFIED DELMY FOR REDRAW Performed By: #### L 509.7001, L100.0100, L503.6005, L503.7505, L501.3620, L500.2500, L501.5200, L500.3400 #### [facility] [address] [place], [address] ALT [Catalytic activity/Vol] 6 U/L Normal <=46 [facility] Comment on above: Order Comment: REDRA W. PREVIOUS SPECIMEN REJECTED DUE TO RESULTS NOT COMING THROUGH AND SEEM TO BE ERRONEOUS. 01/22/25219 Mora Patel. NOTIFIED DELMY FOR REDRAW Performed By: #### L 509.7001, L100.0100, L503.6005, L503.7505, L501.3620, L500.2500, L501.5200, L500.3400 #### [facility] [address] [place], [address] AST [Catalytic activity/Vol] 20 U/L Normal <=37 [facility] Comment on above: Order Comment: REDRA W. PREVIOUS SPECIMEN REJECTED DUE TO RESULTS NOT COMING THROUGH AND SEEM TO BE ERRONEOUS. 01/22/25219 Mora Patel. NOTIFIED DELMY FOR REDRAW Performed By: #### L 509.7001, L100.0100, L503.6005, L503.7505, L501.3620, L500.2500, L501.5200, L500.3400 #### [facility] [address] [place], [address] Bilirubin [Mass/Vol] 0.34 mg/dL Normal 0.00-1.30 [facility] Comment on above: Order Comment: REDRA W. PREVIOUS SPECIMEN REJECTED DUE TO RESULTS NOT COMING THROUGH AND SEEM TO BE ERRONEOUS. 01/22/25219 Mora Patel. NOTIFIED DELMY FOR REDRAW Performed By: #### L 509.7001, L100.0100, L503.6005, L503.7505, L501.3620, L500.2500, L501.5200, L500.3400 #### [facility] [address] [place], [address] BUN/CRE 11.3 RATIO Normal 10-20 [facility] Comment on above: Order Comment: REDRA W. PREVIOUS SPECIMEN REJECTED DUE TO RESULTS NOT COMING THROUGH AND SEEM TO BE ERRONEOUS. 01/22/25219 Mora Patel. NOTIFIED DELMY FOR REDRAW Performed By: #### L 509.7001, L100.0100, L503.6005, L503.7505, L501.3620, L500.2500, L501.5200, L500.3400 #### [facility] [address] [place], [address] Calcium [Mass/Vol] 8.0 mg/dL Normal 7.6-11.0 [facility] Comment on above: Order Comment: REDRA W. PREVIOUS SPECIMEN REJECTED DUE TO RESULTS NOT COMING THROUGH AND SEEM TO BE ERRONEOUS. 01/22/25219 Mora Patel. NOTIFIED DELMY FOR REDRAW Performed By: #### L 509.7001, L100.0100, L503.6005, L503.7505, L501.3620, L500.2500, L501.5200, L500.3400 #### [facility] [address] [place], [address] Chloride [Moles/Vol] 101 mmol/L Normal 98-108 [facility] Comment on above: Order Comment: REDRA W. PREVIOUS SPECIMEN REJECTED DUE TO RESULTS NOT COMING THROUGH AND SEEM TO BE ERRONEOUS. 01/22/25219 Mora Patel. NOTIFIED DELMY FOR REDRAW Performed By: #### L 509.7001, L100.0100, L503.6005, L503.7505, L501.3620, L500.2500, L501.5200, L500.3400 #### [facility] [address] [place], [place], [id number] CO2 [Moles/Vol] 28.3 mmol/L Normal 21.0-32.0 [facility] Comment on above: Order Comment: REDRA W. PREVIOUS SPECIMEN REJECTED DUE TO RESULTS NOT COMING THROUGH AND SEEM TO BE ERRONEOUS. 01/22/25219 Mora Patel. NOTIFIED DELMY FOR REDRAW Performed By: #### L 509.7001, L100.0100, L503.6005, L503.7505, L501.3620, L500.2500, L501.5200, L500.3400 #### [facility] [address] [place], [address] Creatinine [Mass/Vol] 0.49 mg/dL Low 0.70-1.20 [facility] Comment on above: Order Comment: REDRA W. PREVIOUS SPECIMEN REJECTED DUE TO RESULTS NOT COMING THROUGH AND SEEM TO BE ERRONEOUS. 01/22/25219 Mora Patel. NOTIFIED DELMY FOR REDRAW Performed By: #### L 509.7001, L100.0100, L503.6005, L503.7505, L501.3620, L500.2500, L501.5200, L500.3400 #### [facility] [address] [place], [place], [id number] GAP 7 Normal 5-15 [facility] Comment on above: Order Comment: REDRA W. PREVIOUS SPECIMEN REJECTED DUE TO RESULTS NOT COMING THROUGH AND SEEM TO BE ERRONEOUS. 01/22/25219 Mora Patel. NOTIFIED DELMY FOR REDRAW Performed By: #### L 509.7001, L100.0100, L503.6005, L503.7505, L501.3620, L500.2500, L501.5200, L500.3400 #### [facility] [address] [place], [id number] GFR/1.73 sq M.predicted among non-blacks MDRD (S/P/Bld) [Vol rate/Area] 110 mL/min/{1.73_m2} Normal >60 [facility] Comment on above: Order Comment: REDRA W. PREVIOUS SPECIMEN REJECTED DUE TO RESULTS NOT COMING THROUGH AND SEEM TO BE ERRONEOUS. 01/22/25219 Mora Patel. NOTIFIED DELMY FOR REDRAW Result Comment: mL/m in/1.73m2 CKD-EPI Creatinine Equation (2020) Performed By: #### L 509.7001, L100.0100, L503.6005, L503.7505, L501.3620, L500.2500, L501.5200, L500.3400 #### [facility] [address] [facility] [place], [address] Globulin (S) [Mass/Vol] 4.5 g/dL High 2.2-4.2 [facility] Comment on above: Order Comment: REDRA W. PREVIOUS SPECIMEN REJECTED DUE TO RESULTS NOT COMING THROUGH AND SEEM TO BE ERRONEOUS. 01/22/25219 Mora Patel. NOTIFIED DELMY FOR REDRAW Performed By: #### L 509.7001, L100.0100, L503.6005, L503.7505, L501.3620, L500.2500, L501.5200, L500.3400 #### [facility] [address] [place], [place], [phone] Glucose [Mass/Vol] 88 mg/dL Normal 70-99 [facility] Comment on above: Order Comment: REDRA W. PREVIOUS SPECIMEN REJECTED DUE TO RESULTS NOT COMING THROUGH AND SEEM TO BE ERRONEOUS. 01/22/25219 Mora Patel. NOTIFIED DELMY FOR REDRAW Performed By: #### L 509.7001, L100.0100, L503.6005, L503.7505, L501.3620, L500.2500, L501.5200, L500.3400 #### [facility] [address] [place], [address] Potassium [Moles/Vol] 3.9 mmol/L Normal 3.3-5.1 [facility] Comment on above: Order Comment: REDRA W. PREVIOUS SPECIMEN REJECTED DUE TO RESULTS NOT COMING THROUGH AND SEEM TO BE ERRONEOUS. 01/22/25219 Mora Patel. NOTIFIED DELMY FOR REDRAW Performed By: #### L 509.7001, L100.0100, L503.6005, L503.7505, L501.3620, L500.2500, L501.5200, L500.3400 #### [facility] [address] [place], [address] Sodium [Moles/Vol] 136 mmol/L Normal 133-145 [facility] Comment on above: Order Comment: REDRA W. PREVIOUS SPECIMEN REJECTED DUE TO RESULTS NOT COMING THROUGH AND SEEM TO BE ERRONEOUS. 01/22/25219 Mora Patel. NOTIFIED DELMY FOR REDRAW Performed By: #### L 509.7001, L100.0100, L503.6005, L503.7505, L501.3620, L500.2500, L501.5200, L500.3400 #### [facility] [address] [place], [address] T PROT 6.5 g/dL Normal 5.9-8.4 [facility] Comment on above: Order Comment: REDRA W. PREVIOUS SPECIMEN REJECTED DUE TO RESULTS NOT COMING THROUGH AND SEEM TO BE ERRONEOUS. 01/22/25219 Mora Patel. NOTIFIED DELMY FOR REDRAW Performed By: #### L 509.7001, L100.0100, L503.6005, L503.7505, L501.3620, L500.2500, L501.5200, L500.3400 #### [facility] [address] [place], [address] Urea nitrogen [Mass/Vol] 6 mg/dL Normal 4-19 [facility] Comment on above: Order Comment: REDRA W. PREVIOUS SPECIMEN REJECTED DUE TO RESULTS NOT COMING THROUGH AND SEEM TO BE ERRONEOUS. 01/22/25219 Mora Patel. NOTIFIED DELMY FOR REDRAW Performed By: #### L 509.7001, L100.0100, L503.6005, L503.7505, L501.3620, L500.2500, L501.5200, L500.3400 #### [facility] [address] [place], [address] Magnesiumon 02-24-2025 Magnesium [Mass/Vol] 1.8 mg/dL Normal 1.5-2.2 [facility] Comment on above: Order Comment: REDRA W. PREVIOUS SPECIMEN REJECTED DUE TO RESULTS NOT COMING THROUGH AND SEEM TO BE ERRONEOUS. 01/22/25219 Mora Patel. NOTIFIED DELMY FOR REDRAW Performed By: #### L 509.7001, L100.0100, L503.6005, L503.7505, L501.3620, L500.2500, L501.5200, L500.3400 #### [facility] [address] [place], [place], [id number] Basic Metabolic Profile (BMP )on 02-19-2025 BUN/CRE 11.0 RATIO Normal 03-02 [facility] Comment on above: Performed By: #### L 509.7001, L100.0100, L503.6005, L503.7505, L501.3620, L500.2500, L501.5200, L500.3400 #### [facility] [address] [place], [place], [id number] [phone] Calcium [Mass/Vol] 7.3 mg/dL Low 7.6-11.0 [facility] Comment on above: Performed By: #### L 509.7001, L100.0100, L503.6005, L503.7505, L501.3620, L500.2500, L501.5200, L500.3400 #### [facility] [place] [facility] [address] [place], [address] Chloride [Moles/Vol] 104 mmol/L Normal 98-108 [facility] Comment on above: Performed By: #### L 509.7001, L100.0100, L503.6005, L503.7505, L501.3620, L500.2500, L501.5200, L500.3400 #### [facility] [place] [facility] [address] [place], [address] CO2 [Moles/Vol] 25.1 mmol/L Normal 21.0-32.0 [facility] [place] [facility] Comment on above: Performed By: #### L 509.7001, L100.0100, L503.6005, L503.7505, L501.3620, L500.2500, L501.5200, L500.3400 #### [facility] [place] [facility] [address] [place], [address] ([phone] Creatinine [Mass/Vol] 0.54 mg/dL Low 0.70-1.20 [facility] Comment on above: Performed By: #### L 509.7001, L100.0100, L503.6005, L503.7505, L501.3620, L500.2500, L501.5200, L500.3400 #### [facility] [place] [facility] [address] [place], [address] GAP 8 Normal 5-15 [facility] [place] [facility] Comment on above: Performed By: #### L 509.7001, L100.0100, L503.6005, L503.7505, L501.3620, L500.2500, L501.5200, L500.3400 #### [facility] [place] [facility] [address] [place], [address] GFR/1.73 sq M.predicted among non-blacks MDRD (S/P/Bld) [Vol rate/Area] 107 mL/min/{1.73_m2} Normal >60 [facility] [place] [facility] Comment on above: Result Comment: mL/m in/1.73m2 CKD-EPI Creatinine Equation (2020) Performed By: #### L 509.7001, L100.0100, L503.6005, L503.7505, L501.3620, L500.2500, L501.5200, L500.3400 #### [facility] [place] [facility] [address] [place], [address] Glucose [Mass/Vol] 90 mg/dL Normal 70-99 [facility] Comment on above: Performed By: #### L 509.7001, L100.0100, L503.6005, L503.7505, L501.3620, L500.2500, L501.5200, L500.3400 #### [facility] [place] [facility] [address] [place], [address] Potassium [Moles/Vol] 3.9 mmol/L Normal 3.3-5.1 [facility] Comment on above: Result Comment: Hemo lysis present, Results??could be affected. ?? Performed By: #### L 509.7001, L100.0100, L503.6005, L503.7505, L501.3620, L500.2500, L501.5200, L500.3400 #### [facility] [place] [facility] [address] [place], [address] Sodium [Moles/Vol] 136 mmol/L Normal 133-145 [facility] Comment on above: Performed By: #### L 509.7001, L100.0100, L503.6005, L503.7505, L501.3620, L500.2500, L501.5200, L500.3400 #### [facility] [place] [facility] [address] [place], [address] Urea nitrogen [Mass/Vol] 6 mg/dL Normal 4-19 [facility] [place] [facility] Comment on above: Performed By: #### L 509.7001, L100.0100, L503.6005, L503.7505, L501.3620, L500.2500, L501.5200, L500.3400 #### [facility] [place] [facility] [address] [facility] [place], [address] CBC W/Diff, Automatedon 10-0 9-2025 Absolute Lymph 0.82 X10 3/uL Low 0.83-4.51 [facility] [place] [facility] Comment on above: Performed By: #### L 509.7001, L100.0100, L503.6005, L503.7505, L501.3620, L500.2500, L501.5200, L500.3400 #### [facility] [place] [facility] [address] [facility] [place], [address] Absolute Neut 7.4 X10 3/uL Normal 2.0-7.7 [facility] [place] [facility] Comment on above: Performed By: #### L 509.7001, L100.0100, L503.6005, L503.7505, L501.3620, L500.2500, L501.5200, L500.3400 #### [facility] [place] [facility] [address] [facility] [place], [address] Basophils/100 WBC (Bld) 0.7 % Normal 0-1 [facility] Comment on above: Performed By: #### L 509.7001, L100.0100, L503.6005, L503.7505, L501.3620, L500.2500, L501.5200, L500.3400 #### [facility] [place] [facility] [address] [place], [address] Eosinophils/100 WBC (Bld) 4.3 % Normal 0-5 [facility] [place] [facility] Comment on above: Performed By: #### L 509.7001, L100.0100, L503.6005, L503.7505, L501.3620, L500.2500, L501.5200, L500.3400 #### [facility] [place] [facility] [address] [facility] [place], [address] Erythrocyte distribution width (RBC) [Ratio] 16.0 % High 11.6-14.6 [facility] [place] [facility] Comment on above: Performed By: #### L 509.7001, L100.0100, L503.6005, L503.7505, L501.3620, L500.2500, L501.5200, L500.3400 #### [facility] [place] [facility] [address] [place], [address] Hematocrit (Bld) [Volume fraction] 26.1 % Low 40-54 [facility] [place] [facility] Comment on above: Performed By: #### L 509.7001, L100.0100, L503.6005, L503.7505, L501.3620, L500.2500, L501.5200, L500.3400 #### [facility] [place] [facility] [address] [facility] [place], [address] Hemoglobin (Bld) [Mass/Vol] 8.1 g/dL Low 13.0-16.5 [facility] [place] [facility] Comment on above: Performed By: #### L 509.7001, L100.0100, L503.6005, L503.7505, L501.3620, L500.2500, L501.5200, L500.3400 #### [facility] [place] [facility] [address] [place], [address] IG% 2.000 High 0.0-0.9 [facility] [place] [facility] Comment on above: Result Comment: IG% - Immature Granulocytes (promyelocytes, myelocytes and metamyelocytes) > 1% indicates that a LEFT SHIFT is Present. Performed By: #### L 509.7001, L100.0100, L503.6005, L503.7505, L501.3620, L500.2500, L501.5200, L500.3400 #### [facility] [place] [facility] [address] [facility] [place], [address] Lymphocytes/100 WBC (Bld) 8.3 % Low 19-41 [facility] [place] [facility] Comment on above: Performed By: #### L 509.7001, L100.0100, L503.6005, L503.7505, L501.3620, L500.2500, L501.5200, L500.3400 #### [facility] [place] [facility] [address] [place], [address] MCH (RBC) [Entitic mass] 29.0 pg Normal 27.0-32.0 [facility] [place] [facility] Comment on above: Performed By: #### L 509.7001, L100.0100, L503.6005, L503.7505, L501.3620, L500.2500, L501.5200, L500.3400 #### [facility] [place] [facility] [address] [place], [address] MCHC (RBC) [Mass/Vol] 31.0 g/dL Low 32-36 [facility] Comment on above: Performed By: #### L 509.7001, L100.0100, L503.6005, L503.7505, L501.3620, L500.2500, L501.5200, L500.3400 #### [facility] [place] [facility] [address] [place], [address] MCV (RBC) [Entitic vol] 93.5 fL Normal 80-94 [facility] Comment on above: Performed By: #### L 509.7001, L100.0100, L503.6005, L503.7505, L501.3620, L500.2500, L501.5200, L500.3400 #### [facility] [place] [facility] [address] [place], [address] Monocytes/100 WBC (Bld) 10.1 % High 0-10 [facility] Comment on above: Performed By: #### L 509.7001, L100.0100, L503.6005, L503.7505, L501.3620, L500.2500, L501.5200, L500.3400 #### [facility] [place] [facility] [address] [place], [address] Neutrophils/100 WBC (Bld) 74.6 % High 47-70 [facility] [place] [facility] Comment on above: Performed By: #### L 509.7001, L100.0100, L503.6005, L503.7505, L501.3620, L500.2500, L501.5200, L500.3400 #### [facility] [place] [facility] [address] [place], [address] Nucleated RBC (Bld) [#/Vol] 0 10*3/uL Normal 0-5 [facility] [place] [facility] Comment on above: Performed By: #### L 509.7001, L100.0100, L503.6005, L503.7505, L501.3620, L500.2500, L501.5200, L500.3400 #### [facility] [place] [facility] [address] [place], [address] Platelet mean volume (Bld) [Entitic vol] 9.1 fL Normal 6.2-12.0 [facility] [place] [facility] Comment on above: Performed By: #### L 509.7001, L100.0100, L503.6005, L503.7505, L501.3620, L500.2500, L501.5200, L500.3400 #### [facility] [place] [facility] [address] [place], [address] Platelets (Bld) [#/Vol] 397 10*3/uL Normal 150-450 [facility] [place] [facility] Comment on above: Performed By: #### L 509.7001, L100.0100, L503.6005, L503.7505, L501.3620, L500.2500, L501.5200, L500.3400 #### [facility] [place] [facility] [address] [place], [address] RBC (Bld) [#/Vol] 2.79 10*6/uL Low 4.6-6.2 [facility] Comment on above: Performed By: #### L 509.7001, L100.0100, L503.6005, L503.7505, L501.3620, L500.2500, L501.5200, L500.3400 #### [facility] [place] [facility] [address] [place], [address] RDW SD 54.6 fl High 35.1-43.9 [facility] [place] [facility] Comment on above: Performed By: #### L 509.7001, L100.0100, L503.6005, L503.7505, L501.3620, L500.2500, L501.5200, L500.3400 #### [facility] [place] [facility] [address] [place], [place], [id number] (100) WBC (Bld) [#/Vol] 9.9 10*3/uL Normal 4.4-11.0 [facility] Comment on above: Performed By: #### L 509.7001, L100.0100, L503.6005, L503.7505, L501.3620, L500.2500, L501.5200, L500.3400 #### [facility] [place] [facility] [address] [place], [place], [address] [phone] Hemoglobin A1con 02-19-2025 HbA1c (Bld) [Mass fraction] 5.1 % Normal <=5.6 [facility] [place] [facility] Comment on above: Result Comment: Norm al < 5.7 % Prediabetic 5.7 - 6.4 % Diabetic >or= 6.5 % Please note range changes. Performed By: #### L 509.7001, L100.0100, L503.6005, L503.7505, L501.3620, L500.2500, L501.5200, L500.3400 #### [facility] [place] [facility] [address] [place], [place], [address] [phone] Magnesiumon 02-19-2025 Magnesium [Mass/Vol] 1.8 mg/dL Normal 1.5-2.2 [facility] Comment on above: Performed By: #### L 509.7001, L100.0100, L503.6005, L503.7505, L501.3620, L500.2500, L501.5200, L500.3400 #### [facility] [place] [facility] [address] [facility] [place], [address] Thyroid Stim Hormone (TSH)on 02-19-2025 TSH 1.380 uIU/mL Normal 0.300-4.200 [facility] [place] [facility] Comment on above: Performed By: #### L 509.7001, L100.0100, L503.6005, L503.7505, L501.3620, L500.2500, L501.5200, L500.3400 #### [facility] [place] [facility] [address] [place], [place], [id number] Vitamin B12on 02-19-2025 Cobalamin (Vitamin B12) [Mass/Vol] 1008 pg/mL High 180-914 [facility] [place] [facility] Comment on above: Performed By: #### L 509.7001, L100.0100, L503.6005, L503.7505, L501.3620, L500.2500, L501.5200, L500.3400 #### [facility] [place] [facility] [address] [place], [place], [address] Vitamin D,25 Hydroxyon 02-19 Vitamin D 25-OH < 6.0 Low 30-100 [facility] [place] [facility] Comment on above: Result Comment: [place] min D Status Deficiency: <20 ng/mL (50nmol/L) Insufficiency: 20-30 ng/mL (50-75 nmol/L) Sufficiency: 30-100 ng/mL (75-250 nmol/L) Toxicity: >100 ng/mL (>250 nmol/L) Performed By: #### L 509.7001, L100.0100, L503.6005, L503.7505, L501.3620, L500.2500, L501.5200, L500.3400 #### [facility] [place] [facility] [address] [place], [address] CONSULTon 02-18-2025 CONSULT [facility] Disch [place] 02-18-2025 Disch [facility] PHOSPHORUSon 02-18-2025 Phosphate [Mass/Vol] 2.4 mg/dL Normal 2.3-3.7 [facility] Comment on above: Performed By: #### 4 6299 ####[facility] [address] [place], [place] [address] Wojciech Oneal M.D. [id number] BASIC METABOLIC PANELon 10- Anion gap [Moles/Vol] 13 mmol/L Normal 10-20 [facility] Comment on above: Order Comment: [facility] has implemented the eGFR calculation approach that does not have a coefficient for race that conforms to the NKF-ASN Task Force Recommendations. Performed By: #### 4 6124 ####[facility] [address] [place], [place] [address] Wojciech Oneal M.D. [id number] Calcium [Mass/Vol] 7.5 mg/dL Low 8.4-10.2 [facility] Comment on above: Order Comment: [facility] has implemented the eGFR calculation approach that does not have a coefficient for race that conforms to the NKF-ASN Task Force Recommendations. Performed By: #### 4 6124 ####[facility] [address] [place], [place] [address] Wojciech Oneal M.D. [id number] Chloride [Moles/Vol] 104 mmol/L Normal 98-108 [facility] Comment on above: Order Comment: [facility] has implemented the eGFR calculation approach that does not have a coefficient for race that conforms to the NKF-ASN Task Force Recommendations. Performed By: #### 4 6124 ####[facility] [address] [place], [place] [address] Wojciech Oneal M.D. [id number] Creatinine [Mass/Vol] 0.64 mg/dL Low 0.80-1.30 [facility] Comment on above: Order Comment: [facility] has implemented the eGFR calculation approach that does not have a coefficient for race that conforms to the NKF-ASN Task Force Recommendations. Performed By: #### 4 6124 ####[facility] [address] [place] [id number] Wojciech Oneal M.D. [id number] EGFR 101 mL/min/1.73 m2 Normal >=60 [facility] Comment on above: Order Comment: [facility] has implemented the eGFR calculation approach that does not have a coefficient for race that conforms to the NKF-ASN Task Force Recommendations. Result Comment: Chelsea mated GFR was calculated using the 2020 CKD-EPI creatinine equation. Performed By: #### 4 6124 ####[facility] [address] [place] [id number] Wojciech Oneal M.D. [id number] Glucose [Mass/Vol] 95 mg/dL Normal 65-99 [facility] Comment on above: Order Comment: [facility] has implemented the eGFR calculation approach that does not have a coefficient for race that conforms to the NKF-ASN Task Force Recommendations. Performed By: #### 4 6124 ####[facility] [address] [place] [id number] Wojciech Oneal M.D. [id number] HCO3 (Bld) [Moles/Vol] 25 mmol/L Normal 21-32 [facility] Comment on above: Order Comment: [facility] has implemented the eGFR calculation approach that does not have a coefficient for race that conforms to the NKF-ASN Task Force Recommendations. Performed By: #### 4 6124 ####[facility] [address] [place] [id number] Wojciech nOeal M.D. [id number] Potassium [Moles/Vol] 3.6 mmol/L Normal 3.5-5.1 [facility] Comment on above: Order Comment: [facility] has implemented the eGFR calculation approach that does not have a coefficient for race that conforms to the NKF-ASN Task Force Recommendations. Performed By: #### 4 6124 ####[facility] [address] [place] [id number] Wojciech Oneal M.D. [id number] Sodium [Moles/Vol] 138 mmol/L Normal 135-145 [facility] Comment on above: Order Comment: [facility] has implemented the eGFR calculation approach that does not have a coefficient for race that conforms to the NKF-ASN Task Force Recommendations. Performed By: #### 4 6124 ####[facility] [address] [place] [id number] Wojciech Oneal M.D. [id number] Urea nitrogen [Mass/Vol] 7 mg/dL Low 8-25 [facility] Comment on above: Order Comment: [facility] has implemented the eGFR calculation approach that does not have a coefficient for race that conforms to the NKF-ASN Task Force Recommendations. Performed By: #### 4 6124 ####[facility] [address] [place] [address] Wojciech Oneal M.D. [id number] Urea nitrogen/Creatinine [Mass ratio] 10.9 mg/mg Normal 10.0-20.0 [facility] Comment on above: Order Comment: [facility] has implemented the eGFR calculation approach that does not have a coefficient for race that conforms to the NKF-ASN Task Force Recommendations. Performed By: #### 4 6124 ####[facility] [address] [place] [id number] Wojciech Oneal M.D. [id number] CBCon 02-17-2025 AUTO NRBC 0.0 % Normal [facility] Comment on above: Performed By: #### 4 5218 ####[facility] [address] [id number] Wojciech Oneal M.D. [id number] AUTO NRBC ABS COUNT 0.00 K/mcL Normal 0.00-0.00 [facility] Comment on above: Performed By: #### 4 5218 ####[facility] [address] [id number] Wojciech Oneal M.D. [id number] Erythrocyte distribution width (RBC) [Ratio] 15.9 % High 11.6-14.8 [facility] Comment on above: Performed By: #### 4 5218 ####[facility] [address] [address] Wojciech Oneal M.D. [id number] Hematocrit (Bld) [Volume fraction] 25.4 % Low 41.0-53.0 [facility] Comment on above: Performed By: #### 4 5218 ####[facility] [address] [address] Wojciech Oneal M.D. [id number] Hemoglobin (Bld) [Mass/Vol] 7.6 g/dL Low 13.5-17.5 [facility] Comment on above: Performed By: #### 4 5218 ####[facility] [address] [address] Wojciech Oneal M.D. [id number] MCH (RBC) [Entitic mass] 28.8 pg Normal 26.0-34.0 [facility] Comment on above: Performed By: #### 4 5218 ####[facility] [address] [address] Wojciech Oneal M.D. [id number] MCV (RBC) [Entitic vol] 96.2 fL Normal 80.0-100.0 [facility] Comment on above: Performed By: #### 4 5218 ####[facility] [address] [address] Wojciech Oneal M.D. [id number] MEAN CORPUSCULAR HEMOGLOBIN CONC 29.9 g/dL Low 31.0-37.0 [facility] Comment on above: Performed By: #### 4 5218 ####[facility] [address] [address] Wojciech Oneal M.D. [id number] Platelet mean volume (Bld) [Entitic vol] 8.3 fL Low 9.4-12.4 [facility] Comment on above: Performed By: #### 4 5218 ####[facility] [address] [address] Wojciech Oneal M.D. [id number] Platelets (Bld) [#/Vol] 409 10*3/uL High 150-400 [facility] Comment on above: Performed By: #### 4 5218 ####[facility] [address] [address] Wojciech Oneal M.D. [id number] RBC (Bld) [#/Vol] 2.64 10*6/uL Low 4.50-5.90 [facility] Comment on above: Performed By: #### 4 5218 ####[facility] [address] [id number] Wojciech Oneal M.D. [id number] WBC (Bld) [#/Vol] 8.89 10*3/uL Normal 4.50-11.00 [facility] Comment on above: Performed By: #### 4 5218 ####[facility] [address] [id number] Wojciech Oneal M.D. [id number] MAGNESIUM LEVELon 02-17-2025 Magnesium [Mass/Vol] 1.7 mg/dL Normal 1.6-2.4 [facility] Comment on above: Performed By: #### 4 6109 ####[facility] [address] [id number] Wojciech Oneal M.D. [id number] PHOSPHORUSon 02-17-2025 Phosphate [Mass/Vol] 2.5 mg/dL Normal 2.3-3.7 [facility] Comment on above: Performed By: #### 4 6299 ####[facility] [address] [id number] Wojciech Oneal M.D. [id number] BASIC METABOLIC PANELon 10-0 Anion gap [Moles/Vol] 10 mmol/L Normal 10-20 [facility] Comment on above: Order Comment: [facility] has implemented the eGFR calculation approach that does not have a coefficient for race that conforms to the NKF-ASN Task Force Recommendations. Performed By: #### 4 6124 ####[facility] [address] [id number] Wojciech Oneal M.D. [id number] Calcium [Mass/Vol] 7.3 mg/dL Low 8.4-10.2 [facility] Comment on above: Order Comment: [facility] has implemented the eGFR calculation approach that does not have a coefficient for race that conforms to the NKF-ASN Task Force Recommendations. Performed By: #### 4 6124 ####[facility] [address], [place] [address] Wojciech Oneal M.D. [id number] Chloride [Moles/Vol] 106 mmol/L Normal 98-108 [facility] Comment on above: Order Comment: [facility] has implemented the eGFR calculation approach that does not have a coefficient for race that conforms to the NKF-ASN Task Force Recommendations. Performed By: #### 4 6124 ####[facility] [address] [id number] Wojciech Oneal M.D. [id number] Creatinine [Mass/Vol] 0.62 mg/dL Low 0.80-1.30 [facility] Comment on above: Order Comment: [facility] has implemented the eGFR calculation approach that does not have a coefficient for race that conforms to the NKF-ASN Task Force Recommendations. Performed By: #### 4 6124 ####[facility] [address] [id number] Wojciech Oneal M.D. [id number] EGFR 102 mL/min/1.73 m2 Normal >=60 [facility] Comment on above: Order Comment: [facility] has implemented the eGFR calculation approach that does not have a coefficient for race that conforms to the NKF-ASN Task Force Recommendations. Result Comment: Chelsea mated GFR was calculated using the 2020 CKD-EPI creatinine equation. Performed By: #### 4 6124 ####[facility] [address] [id number] Wojciech Oneal M.D. [id number] Glucose [Mass/Vol] 84 mg/dL Normal 65-99 [facility] Comment on above: Order Comment: [facility] has implemented the eGFR calculation approach that does not have a coefficient for race that conforms to the NKF-ASN Task Force Recommendations. Performed By: #### 4 6124 ####[facility] [address], [place] [address] Wojciech Oneal M.D. [id number] HCO3 (Bld) [Moles/Vol] 26 mmol/L Normal 21-32 [facility] Comment on above: Order Comment: [facility] has implemented the eGFR calculation approach that does not have a coefficient for race that conforms to the NKF-ASN Task Force Recommendations. Performed By: #### 4 6124 ####[facility] [address] [id number] Wojciech Oneal M.D. [id number] Potassium [Moles/Vol] 3.7 mmol/L Normal 3.5-5.1 [facility] Comment on above: Order Comment: [facility] has implemented the eGFR calculation approach that does not have a coefficient for race that conforms to the NKF-ASN Task Force Recommendations. Performed By: #### 4 6124 ####[facility] [address] [id number] Wojciech Oneal M.D. [id number] Sodium [Moles/Vol] 138 mmol/L Normal 135-145 [facility] Comment on above: Order Comment: [facility] has implemented the eGFR calculation approach that does not have a coefficient for race that conforms to the NKF-ASN Task Force Recommendations. Performed By: #### 4 6124 ####[facility] [address] [address] Wojciech Oneal M.D. [id number] Urea nitrogen [Mass/Vol] 8 mg/dL Normal 8-25 [facility] Comment on above: Order Comment: [facility] has implemented the eGFR calculation approach that does not have a coefficient for race that conforms to the NKF-ASN Task Force Recommendations. Performed By: #### 4 6124 ####[facility] [address] [id number] Wojciech Oneal M.D. [id number] Urea nitrogen/Creatinine [Mass ratio] 12.9 mg/mg Normal 10.0-20.0 [facility] Comment on above: Order Comment: [facility] has implemented the eGFR calculation approach that does not have a coefficient for race that conforms to the NKF-ASN Task Force Recommendations. Performed By: #### 4 6124 ####[facility] [address] [id number] Wojciech Oneal M.D. [id number] CBCon 02-16-2025 AUTO NRBC 0.0 % Normal [facility] Comment on above: Performed By: #### 4 5218 ####[facility] [address] [address] Wojciech Oneal M.D. [id number] AUTO NRBC ABS COUNT 0.00 K/mcL Normal 0.00-0.00 [facility] Comment on above: Performed By: #### 4 5218 ####[facility] [address] [address] Wojciech Oneal M.D. [id number] Erythrocyte distribution width (RBC) [Ratio] 15.7 % High 11.6-14.8 [facility] Comment on above: Performed By: #### 4 5218 ####[facility] [address] [address] Wojciech Oneal M.D. [id number] Hematocrit (Bld) [Volume fraction] 26.9 % Low 41.0-53.0 [facility] Comment on above: Performed By: #### 4 5218 ####[facility] [address] [address] Wojciech Oneal M.D. [id number] Hemoglobin (Bld) [Mass/Vol] 7.9 g/dL Low 13.5-17.5 [facility] Comment on above: Performed By: #### 4 5218 ####[facility] [address] [address] Wojciech Oneal M.D. [id number] MCH (RBC) [Entitic mass] 28.4 pg Normal 26.0-34.0 [facility] Comment on above: Performed By: #### 4 5218 ####[facility] [address] [address] Wojciech Oneal M.D. [id number] MCV (RBC) [Entitic vol] 96.8 fL Normal 80.0-100.0 [facility] Comment on above: Performed By: #### 4 5218 ####[facility] [address] [address] Wojciech Oneal M.D. [id number] MEAN CORPUSCULAR HEMOGLOBIN CONC 29.4 g/dL Low 31.0-37.0 [facility] Comment on above: Performed By: #### 4 5218 ####[facility] [address] [id number] Wojciech Oneal M.D. [id number] Platelet mean volume (Bld) [Entitic vol] 8.5 fL Low 9.4-12.4 [facility] Comment on above: Performed By: #### 4 5218 ####[facility] [address] [id number] Wojciech Oneal M.D. [id number] Platelets (Bld) [#/Vol] 446 10*3/uL High 150-400 [facility] Comment on above: Performed By: #### 4 5218 ####[facility] [address] [address] Wojciech Oneal M.D. [id number] RBC (Bld) [#/Vol] 2.78 10*6/uL Low 4.50-5.90 [facility] Comment on above: Performed By: #### 4 5218 ####[facility] [address] [id number] Wojciech Oneal M.D. [id number] WBC (Bld) [#/Vol] 8.23 10*3/uL Normal 4.50-11.00 [facility] Comment on above: Performed By: #### 4 5218 ####[facility] [address] [id number] Wojciech Oneal M.D. [id number] MAGNESIUM LEVELon 02-16-2025 Magnesium [Mass/Vol] 1.8 mg/dL Normal 1.6-2.4 [facility] Comment on above: Performed By: #### 4 6109 ####[facility] [address] [id number] Wojciech Oneal M.D. [id number] PHOSPHORUSon 02-16-2025 Phosphate [Mass/Vol] 2.7 mg/dL Normal 2.3-3.7 [facility] Comment on above: Performed By: #### 4 6299 ####[facility] [address] [address] Wojciech Oneal M.D. [id number] B12/FOLATEon 02-15-2025 Cobalamin (Vitamin B12) [Mass/Vol] 1085 pg/mL Normal 232-1245 [facility] Comment on above: Performed By: #### 4 6967 ####[facility] [address] [address] Wojciech Oneal M.D. [id number] FOLATE 4.5 ng/mL Normal 3.1-17.5 [facility] Comment on above: Result Comment: Defi cient <2.2Borderline 2.2 - 3.0Excessive >17.5 Performed By: #### 4 6967 ####[facility] [address] [place], [place] [address] Wojciech Oneal M.D. [id number] BASIC METABOLIC PANELon Anion gap [Moles/Vol] 15 mmol/L Normal 10-20 [facility] Comment on above: Order Comment: [facility] has implemented the eGFR calculation approach that does not have a coefficient for race that conforms to the NKF-ASN Task Force Recommendations. Performed By: #### 4 6124 ####[facility] [address] [id number] Wojciech Oneal M.D. [id number] Calcium [Mass/Vol] 6.8 mg/dL Low 8.4-10.2 [facility] Comment on above: Order Comment: [facility] has implemented the eGFR calculation approach that does not have a coefficient for race that conforms to the NKF-ASN Task Force Recommendations. Performed By: #### 4 6124 ####[facility] [address] [id number] Wojciech Oneal M.D. [id number] Chloride [Moles/Vol] 106 mmol/L Normal 98-108 [facility] Comment on above: Order Comment: [facility] has implemented the eGFR calculation approach that does not have a coefficient for race that conforms to the NKF-ASN Task Force Recommendations. Performed By: #### 4 6124 ####[facility] [address] [id number] Wojciech Oneal M.D. [id number] Creatinine [Mass/Vol] 0.70 mg/dL Low 0.80-1.30 [facility] Comment on above: Order Comment: [facility] has implemented the eGFR calculation approach that does not have a coefficient for race that conforms to the NKF-ASN Task Force Recommendations. Performed By: #### 4 6124 ####[facility] [address] [id number] Wojciech Oneal M.D. [id number] EGFR 99 mL/min/1.73 m2 Normal >=60 [facility] Comment on above: Order Comment: [facility] has implemented the eGFR calculation approach that does not have a coefficient for race that conforms to the NKF-ASN Task Force Recommendations. Result Comment: Chelsea mated GFR was calculated using the 2020 CKD-EPI creatinine equation. Performed By: #### 4 6124 ####[facility] [address] [address] Wojciech Oneal M.D. [id number] Glucose [Mass/Vol] 93 mg/dL Normal 65-99 [facility] Comment on above: Order Comment: [facility] has implemented the eGFR calculation approach that does not have a coefficient for race that conforms to the NKF-ASN Task Force Recommendations. Performed By: #### 4 6124 ####[facility] [address] [id number] Wojciech Oneal M.D. [id number] HCO3 (Bld) [Moles/Vol] 20 mmol/L Low 21-32 [facility] Comment on above: Order Comment: [facility] has implemented the eGFR calculation approach that does not have a coefficient for race that conforms to the NKF-ASN Task Force Recommendations. Performed By: #### 4 6124 ####[facility] [address] [id number] Wojciech Oneal M.D. [id number] Potassium [Moles/Vol] 4.1 mmol/L Normal 3.5-5.1 [facility] Comment on above: Order Comment: [facility] has implemented the eGFR calculation approach that does not have a coefficient for race that conforms to the NKF-ASN Task Force Recommendations. Result Comment: Slig htly Hemolyzed Performed By: #### 4 6124 ####[facility] [address] [id number] Wojciech Oneal M.D. [id number] Sodium [Moles/Vol] 137 mmol/L Normal 135-145 [facility] Comment on above: Order Comment: [facility] has implemented the eGFR calculation approach that does not have a coefficient for race that conforms to the NKF-ASN Task Force Recommendations. Performed By: #### 4 6124 ####[facility] [address] [id number] Wojciech Oneal M.D. [id number] Urea nitrogen [Mass/Vol] 9 mg/dL Normal 8-25 [facility] Comment on above: Order Comment: [facility] has implemented the eGFR calculation approach that does not have a coefficient for race that conforms to the NKF-ASN Task Force Recommendations. Performed By: #### 4 6124 ####[facility] [address] [id number] Wojciech Oneal M.D. [id number] Urea nitrogen/Creatinine [Mass ratio] 12.9 mg/mg Normal 10.0-20.0 [facility] Comment on above: Order Comment: [facility] has implemented the eGFR calculation approach that does not have a coefficient for race that conforms to the NKF-ASN Task Force Recommendations. Performed By: #### 4 6124 ####[facility] [address], [place] [address] Wojciech Oneal M.D. [id number] CBCon 02-15-2025 AUTO NRBC 0.0 % Normal [facility] Comment on above: Performed By: #### 4 5218 ####[facility] [address], [place] [address] Wojciech Oneal M.D. [id number] AUTO NRBC ABS COUNT 0.00 K/mcL Normal 0.00-0.00 [facility] Comment on above: Performed By: #### 4 5218 ####[facility] [address] [id number] Wojciech Oneal M.D. [id number] Erythrocyte distribution width (RBC) [Ratio] 15.7 % High 11.6-14.8 [facility] Comment on above: Performed By: #### 4 5218 ####[facility] [address] [address] Wojciech Oneal M.D. [id number] Hematocrit (Bld) [Volume fraction] 27.6 % Low 41.0-53.0 [facility] Comment on above: Performed By: #### 4 5218 ####[facility] [address] [address] Wojciech Oneal M.D. [id number] Hemoglobin (Bld) [Mass/Vol] 7.7 g/dL Low 13.5-17.5 [facility] Comment on above: Performed By: #### 4 5218 ####[facility] [address] [address] Wojciech Oneal M.D. [id number] MCH (RBC) [Entitic mass] 28.6 pg Normal 26.0-34.0 [facility] Comment on above: Performed By: #### 4 5218 ####[facility] [address] [address] Wojciech Oneal M.D. [id number] MCV (RBC) [Entitic vol] 102.6 fL High 80.0-100.0 [facility] Comment on above: Performed By: #### 4 5218 ####[facility] [address] [address] Wojciech Oneal M.D. [id number] MEAN CORPUSCULAR HEMOGLOBIN CONC 27.9 g/dL Low 31.0-37.0 [facility] Comment on above: Performed By: #### 4 5218 ####[facility] [address] [address] Wojciech Oneal M.D. [id number] Platelet mean volume (Bld) [Entitic vol] 8.9 fL Low 9.4-12.4 [facility] Comment on above: Performed By: #### 4 5218 ####[facility] [address] [address] Wojciech Oneal M.D. [id number] Platelets (Bld) [#/Vol] 381 10*3/uL Normal 150-400 [facility] Comment on above: Performed By: #### 4 5218 ####[facility] [address], [place] [address] Wojciech Oneal M.D. [id number] RBC (Bld) [#/Vol] 2.69 10*6/uL Low 4.50-5.90 [facility] Comment on above: Performed By: #### 4 5218 ####[facility] [address] [id number] Wojciech Oneal M.D. [id number] WBC (Bld) [#/Vol] 8.42 10*3/uL Normal 4.50-11.00 [facility] Comment on above: Performed By: #### 4 5218 ####[facility] [address] [id number] Wojciech Oneal M.D. [id number] MAGNESIUM LEVELon 02-15-2025 Magnesium [Mass/Vol] 1.8 mg/dL Normal 1.6-2.4 [facility] Comment on above: Performed By: #### 4 6109 ####[facility] [address], [place] [address] Wojciech Oneal M.D. [id number] PHOSPHORUSon 02-15-2025 Phosphate [Mass/Vol] 2.7 mg/dL Normal 2.3-3.7 [facility] Comment on above: Performed By: #### 4 6299 ####[facility] [address], [place] [address] Wojciech Oneal M.D. [id number] BASIC METABOLIC PANELon 10-0 Anion gap [Moles/Vol] 13 mmol/L Normal 10-20 [facility] Comment on above: Order Comment: [facility] has implemented the eGFR calculation approach that does not have a coefficient for race that conforms to the NKF-ASN Task Force Recommendations. Performed By: #### 4 6124 ####[facility] [address], [place] [address] Wojciech Oneal M.D. [id number] Calcium [Mass/Vol] 7.2 mg/dL Low 8.4-10.2 [facility] Comment on above: Order Comment: [facility] has implemented the eGFR calculation approach that does not have a coefficient for race that conforms to the NKF-ASN Task Force Recommendations. Performed By: #### 4 6124 ####[facility] [address] [id number] Wojciech Oneal M.D. [id number] Chloride [Moles/Vol] 108 mmol/L Normal 98-108 [facility] Comment on above: Order Comment: [facility] has implemented the eGFR calculation approach that does not have a coefficient for race that conforms to the NKF-ASN Task Force Recommendations. Performed By: #### 4 6124 ####[facility] [address] [id number] Wojciech Oneal M.D. [id number] Creatinine [Mass/Vol] 0.64 mg/dL Low 0.80-1.30 [facility] Comment on above: Order Comment: [facility] has implemented the eGFR calculation approach that does not have a coefficient for race that conforms to the NKF-ASN Task Force Recommendations. Performed By: #### 4 6124 ####[facility] [address] [id number] Wojciech Oneal M.D. [id number] EGFR 101 mL/min/1.73 m2 Normal >=60 [facility] Comment on above: Order Comment: [facility] has implemented the eGFR calculation approach that does not have a coefficient for race that conforms to the NKF-ASN Task Force Recommendations. Result Comment: Chelsea mated GFR was calculated using the 2020 CKD-EPI creatinine equation. Performed By: #### 4 6124 ####[facility] [address] [address] Wojciech Oneal M.D. [id number] Glucose [Mass/Vol] 93 mg/dL Normal 65-99 [facility] Comment on above: Order Comment: [facility] has implemented the eGFR calculation approach that does not have a coefficient for race that conforms to the NKF-ASN Task Force Recommendations. Performed By: #### 4 6124 ####[facility] [address] [id number] Wojciech Oneal M.D. [id number] HCO3 (Bld) [Moles/Vol] 25 mmol/L Normal 21-32 [facility] Comment on above: Order Comment: [facility] has implemented the eGFR calculation approach that does not have a coefficient for race that conforms to the NKF-ASN Task Force Recommendations. Performed By: #### 4 6124 ####[facility] [address] [address] Wojciech Oneal M.D. [id number] Potassium [Moles/Vol] 3.9 mmol/L Normal 3.5-5.1 [facility] Comment on above: Order Comment: [facility] has implemented the eGFR calculation approach that does not have a coefficient for race that conforms to the NKF-ASN Task Force Recommendations. Performed By: #### 4 6124 ####[facility] [address] [address] Wojciech Oneal M.D. [id number] Sodium [Moles/Vol] 142 mmol/L Normal 135-145 [facility] Comment on above: Order Comment: [facility] has implemented the eGFR calculation approach that does not have a coefficient for race that conforms to the NKF-ASN Task Force Recommendations. Performed By: #### 4 6124 ####[facility] [address] [address] Wojciech Oneal M.D. [id number] Urea nitrogen [Mass/Vol] 8 mg/dL Normal 8-25 [facility] Comment on above: Order Comment: [facility] has implemented the eGFR calculation approach that does not have a coefficient for race that conforms to the NKF-ASN Task Force Recommendations. Performed By: #### 4 6124 ####[facility] [address] [id number] Wojciech Oneal M.D. [id number] Urea nitrogen/Creatinine [Mass ratio] 12.5 mg/mg Normal 10.0-20.0 [facility] Comment on above: Order Comment: [facility] has implemented the eGFR calculation approach that does not have a coefficient for race that conforms to the NKF-ASN Task Force Recommendations. Performed By: #### 4 6124 ####[facility] [address] [address] Wojciech Oneal M.D. [id number] CBCon 02-14-2025 AUTO NRBC 0.0 % Normal [facility] Comment on above: Performed By: #### 4 5218 ####[facility] [address] [address] Wojciech Oneal M.D. [id number] AUTO NRBC ABS COUNT 0.00 K/mcL Normal 0.00-0.00 [facility] Comment on above: Performed By: #### 4 5218 ####[facility] [address] [address] Wojciech Oneal M.D. [id number] Erythrocyte distribution width (RBC) [Ratio] 15.5 % High 11.6-14.8 [facility] Comment on above: Performed By: #### 4 5218 ####[facility] [address] [address] Wojciech Oneal M.D. [id number] Hematocrit (Bld) [Volume fraction] 24.5 % Low 41.0-53.0 [facility] Comment on above: Performed By: #### 4 5218 ####[facility] [address] [address] Wojciech Oneal M.D. [id number] Hemoglobin (Bld) [Mass/Vol] 7.4 g/dL Low 13.5-17.5 [facility] Comment on above: Performed By: #### 4 5218 ####[facility] [address] [address] Wojciech Oneal M.D. [id number] MCH (RBC) [Entitic mass] 29.5 pg Normal 26.0-34.0 [facility] Comment on above: Performed By: #### 4 5218 ####[facility] [address] [address] Wojciech Oneal M.D. [id number] MCV (RBC) [Entitic vol] 97.6 fL Normal 80.0-100.0 [facility] Comment on above: Performed By: #### 4 5218 ####[facility] [address], [place] [address] Wojciech Onael M.D. [id number] MEAN CORPUSCULAR HEMOGLOBIN CONC 30.2 g/dL Low 31.0-37.0 [facility] Comment on above: Performed By: #### 4 5218 ####[facility] [address], [place] [address] Wojciech Oneal M.D. [id number] Platelet mean volume (Bld) [Entitic vol] 8.8 fL Low 9.4-12.4 [facility] Comment on above: Performed By: #### 4 5218 ####[facility] [address] [id number] Wojciech Oneal M.D. [id number] Platelets (Bld) [#/Vol] 467 10*3/uL High 150-400 [facility] Comment on above: Performed By: #### 4 5218 ####[facility] [address] [id number] Wojciech Oneal M.D. [id number] RBC (Bld) [#/Vol] 2.51 10*6/uL Low 4.50-5.90 [facility] Comment on above: Performed By: #### 4 5218 ####[facility] [address] [id number] Wojciech Oneal M.D. [id number] WBC (Bld) [#/Vol] 8.51 10*3/uL Normal 4.50-11.00 [facility] Comment on above: Performed By: #### 4 5218 ####[facility] [address] [id number] Wojciehc Oneal M.D. [id number] IRON STUDY WITH FERRITINon 1 Ferritin [Mass/Vol] 290 ng/mL Normal 30-400 [facility] Comment on above: Performed By: #### 4 7645 ####[facility] [address] [id number] Wojciech Oneal M.D. [id number] Iron [Mass/Vol] 15 ug/dL Low 40-165 [facility] Comment on above: Performed By: #### 4 7645 ####[facility] [address], [place] [address] Wojciech Oneal M.D. [id number] IRON SATURATION 17 % Low 20-50 [facility] Comment on above: Performed By: #### 4 7645 ####[facility] [address] [place], [place] [address] Wojciech Oneal M.D. [id number] TIBC (CALCULATED) 87 mcg/dL Low 225-430 [facility] Comment on above: Performed By: #### 4 7645 ####[facility] [address] [id number] Wojciech Oneal M.D. [id number] MAGNESIUM LEVELon 02-14-2025 Magnesium [Mass/Vol] 1.8 mg/dL Normal 1.6-2.4 [facility] Comment on above: Performed By: #### 4 6109 ####[facility] [address] [id number] Wojciech Oneal M.D. [id number] PHOSPHORUSon 02-14-2025 Phosphate [Mass/Vol] 2.6 mg/dL Normal 2.3-3.7 [facility] Comment on above: Performed By: #### 4 6299 ####[facility] [address] [id number] Wojciech Oneal M.D. [id number] BASIC METABOLIC PANELon 10-0 Anion gap [Moles/Vol] 10 mmol/L Normal 10-20 [facility] Comment on above: Order Comment: [facility] has implemented the eGFR calculation approach that does not have a coefficient for race that conforms to the NKF-ASN Task Force Recommendations. Performed By: #### 4 6124 ####[facility] [address], [place] [address] Wojciech Oneal M.D. [id number] Calcium [Mass/Vol] 6.9 mg/dL Low 8.4-10.2 [facility] Comment on above: Order Comment: [facility] has implemented the eGFR calculation approach that does not have a coefficient for race that conforms to the NKF-ASN Task Force Recommendations. Performed By: #### 4 6124 ####[facility] [address] [id number] Wojciech Oneal M.D. [id number] Chloride [Moles/Vol] 108 mmol/L Normal 98-108 [facility] Comment on above: Order Comment: [facility] has implemented the eGFR calculation approach that does not have a coefficient for race that conforms to the NKF-ASN Task Force Recommendations. Performed By: #### 4 6124 ####[facility] [address] [address] Wojciech Oneal M.D. [id number] Creatinine [Mass/Vol] 0.72 mg/dL Low 0.80-1.30 [facility] Comment on above: Order Comment: [facility] has implemented the eGFR calculation approach that does not have a coefficient for race that conforms to the NKF-ASN Task Force Recommendations. Performed By: #### 4 6124 ####[facility] [address] [id number] Wojciech Oneal M.D. [id number] EGFR 98 mL/min/1.73 m2 Normal >=60 [facility] Comment on above: Order Comment: [facility] has implemented the eGFR calculation approach that does not have a coefficient for race that conforms to the NKF-ASN Task Force Recommendations. Result Comment: Chelsea mated GFR was calculated using the 2020 CKD-EPI creatinine equation. Performed By: #### 4 6124 ####[facility] [address] [id number] Wojciech Oneal M.D. [id number] Glucose [Mass/Vol] 98 mg/dL Normal 65-99 [facility] Comment on above: Order Comment: [facility] has implemented the eGFR calculation approach that does not have a coefficient for race that conforms to the NKF-ASN Task Force Recommendations. Performed By: #### 4 6124 ####[facility] [address] [id number] Wojciech Oneal M.D. [id number] HCO3 (Bld) [Moles/Vol] 26 mmol/L Normal 21-32 [facility] Comment on above: Order Comment: [facility] has implemented the eGFR calculation approach that does not have a coefficient for race that conforms to the NKF-ASN Task Force Recommendations. Performed By: #### 4 6124 ####[facility] [address] [id number] Wojciech Oneal M.D. [id number] Potassium [Moles/Vol] 3.4 mmol/L Low 3.5-5.1 [facility] Comment on above: Order Comment: [facility] has implemented the eGFR calculation approach that does not have a coefficient for race that conforms to the NKF-ASN Task Force Recommendations. Performed By: #### 4 6124 ####[facility] [address] [id number] Wojciech Oneal M.D. [id number] Sodium [Moles/Vol] 141 mmol/L Normal 135-145 [facility] Comment on above: Order Comment: [facility] has implemented the eGFR calculation approach that does not have a coefficient for race that conforms to the NKF-ASN Task Force Recommendations. Performed By: #### 4 6124 ####[facility] [address] [address] Wojciech Oneal M.D. [id number] Urea nitrogen [Mass/Vol] 7 mg/dL Low 8-25 [facility] Comment on above: Order Comment: [facility] has implemented the eGFR calculation approach that does not have a coefficient for race that conforms to the NKF-ASN Task Force Recommendations. Performed By: #### 4 6124 ####[facility] [address] [id number] Wojciech Oneal M.D. [id number] Urea nitrogen/Creatinine [Mass ratio] 9.7 mg/mg Low 10.0-20.0 [facility] Comment on above: Order Comment: [facility] has implemented the eGFR calculation approach that does not have a coefficient for race that conforms to the NKF-ASN Task Force Recommendations. Performed By: #### 4 6124 ####[facility] [address] [id number] Wojciech Oneal M.D. [id number] CBCon 02-13-2025 AUTO NRBC 0.0 % Normal [facility] Comment on above: Performed By: #### 4 5218 ####[facility] [address] [address] Wojciech Oneal M.D. [id number] AUTO NRBC ABS COUNT 0.00 K/mcL Normal 0.00-0.00 [facility] Comment on above: Performed By: #### 4 5218 ####[facility] [address] [address] Wojciech Oneal M.D. [id number] Erythrocyte distribution width (RBC) [Ratio] 15.6 % High 11.6-14.8 [facility] Comment on above: Performed By: #### 4 5218 ####[facility] [address] [address] Wojciech Oneal M.D. [id number] Hematocrit (Bld) [Volume fraction] 24.1 % Low 41.0-53.0 [facility] Comment on above: Performed By: #### 4 5218 ####[facility] [address] [address] Wojciech Oneal M.D. [id number] Hemoglobin (Bld) [Mass/Vol] 7.3 g/dL Low 13.5-17.5 [facility] Comment on above: Performed By: #### 4 5218 ####[facility] [address] [address] Wojciech Oneal M.D. [id number] MCH (RBC) [Entitic mass] 28.7 pg Normal 26.0-34.0 [facility] Comment on above: Performed By: #### 4 5218 ####[facility] [address] [address] Wojciech Oneal M.D. [id number] MCV (RBC) [Entitic vol] 94.9 fL Normal 80.0-100.0 [facility] Comment on above: Performed By: #### 4 5218 ####[facility] [address] [address] Wojciech Oneal M.D. [id number] MEAN CORPUSCULAR HEMOGLOBIN CONC 30.3 g/dL Low 31.0-37.0 [facility] Comment on above: Performed By: #### 4 5218 ####[facility] [address], [place] [address] Wojciech Oneal M.D. [id number] Platelet mean volume (Bld) [Entitic vol] 8.5 fL Low 9.4-12.4 [facility] Comment on above: Performed By: #### 4 5218 ####[facility] [address] [place], [place] [address] Wojciech Oneal M.D. [id number] Platelets (Bld) [#/Vol] 493 10*3/uL High 150-400 [facility] Comment on above: Performed By: #### 4 5218 ####[facility] [address] [place], [place] [address] Wojciech Oneal M.D. [id number] RBC (Bld) [#/Vol] 2.54 10*6/uL Low 4.50-5.90 [facility] Comment on above: Performed By: #### 4 5218 ####[facility] [address] [id number] Wojciech Oneal M.D. [id number] WBC (Bld) [#/Vol] 7.51 10*3/uL Normal 4.50-11.00 [facility] Comment on above: Performed By: #### 4 5218 ####[facility] [address] [id number] Wojciech Oneal M.D. [id number] MAGNESIUM LEVELon 02-13-2025 Magnesium [Mass/Vol] 1.8 mg/dL Normal 1.6-2.4 [facility] Comment on above: Performed By: #### 4 6109 ####[facility] [address] [place], [place] [address] Wojciech Oneal M.D. [id number] PHOSPHORUSon 02-13-2025 Phosphate [Mass/Vol] 2.6 mg/dL Normal 2.3-3.7 [facility] Comment on above: Performed By: #### 4 6299 ####[facility] [address] [id number] Wojciech Oneal M.D. [id number] BASIC METABOLIC PANELon Anion gap [Moles/Vol] 11 mmol/L Normal 10-20 [facility] Comment on above: Order Comment: [facility] has implemented the eGFR calculation approach that does not have a coefficient for race that conforms to the NKF-ASN Task Force Recommendations. Performed By: #### 4 6124 ####[facility] [address] [id number] Wojciech Oneal M.D. [id number] Calcium [Mass/Vol] 7.2 mg/dL Low 8.4-10.2 [facility] Comment on above: Order Comment: [facility] has implemented the eGFR calculation approach that does not have a coefficient for race that conforms to the NKF-ASN Task Force Recommendations. Performed By: #### 4 6124 ####[facility] [address] [id number] Wojciech Oneal M.D. [id number] Chloride [Moles/Vol] 109 mmol/L High 98-108 [facility] Comment on above: Order Comment: [facility] has implemented the eGFR calculation approach that does not have a coefficient for race that conforms to the NKF-ASN Task Force Recommendations. Performed By: #### 4 6124 ####[facility] [address] [id number] Wojciech Oneal M.D. [id number] Creatinine [Mass/Vol] 0.71 mg/dL Low 0.80-1.30 [facility] Comment on above: Order Comment: [facility] has implemented the eGFR calculation approach that does not have a coefficient for race that conforms to the NKF-ASN Task Force Recommendations. Performed By: #### 4 6124 ####[facility] [address] [place], [place] [address] Wojciech Oneal M.D. [id number] EGFR 98 mL/min/1.73 m2 Normal >=60 [facility] Comment on above: Order Comment: [facility] has implemented the eGFR calculation approach that does not have a coefficient for race that conforms to the NKF-ASN Task Force Recommendations. Result Comment: Chelsea mated GFR was calculated using the 2020 CKD-EPI creatinine equation. Performed By: #### 4 6155 ####[facility] [address] [place], [place] [address] Wojciech Oneal M.D. [id number] Glucose [Mass/Vol] 91 mg/dL Normal 65-99 [facility] Comment on above: Order Comment: [facility] has implemented the eGFR calculation approach that does not have a coefficient for race that conforms to the NKF-ASN Task Force Recommendations. Performed By: #### 4 6124 ####[facility] [address] [id number] Wojciech Oneal M.D. [id number] HCO3 (Bld) [Moles/Vol] 25 mmol/L Normal 21-32 [facility] Comment on above: Order Comment: [facility] has implemented the eGFR calculation approach that does not have a coefficient for race that conforms to the NKF-ASN Task Force Recommendations. Performed By: #### 4 6124 ####[facility] [address] [id number] Wojciech Oneal M.D. [id number] Potassium [Moles/Vol] 3.8 mmol/L Normal 3.5-5.1 [facility] Comment on above: Order Comment: [facility] has implemented the eGFR calculation approach that does not have a coefficient for race that conforms to the NKF-ASN Task Force Recommendations. Performed By: #### 4 6124 ####[facility] [address] [id number] Wojciech Oneal M.D. [id number] Sodium [Moles/Vol] 141 mmol/L Normal 135-145 [facility] Comment on above: Order Comment: [facility] has implemented the eGFR calculation approach that does not have a coefficient for race that conforms to the NKF-ASN Task Force Recommendations. Performed By: #### 4 6124 ####[facility] [address] [id number] Wojciech Oneal M.D. [id number] Urea nitrogen [Mass/Vol] 8 mg/dL Normal 8-25 [facility] Comment on above: Order Comment: [facility] has implemented the eGFR calculation approach that does not have a coefficient for race that conforms to the NKF-ASN Task Force Recommendations. Performed By: #### 4 6124 ####[facility] [address] [id number] Wojciech Oneal M.D. [id number] Urea nitrogen/Creatinine [Mass ratio] 11.3 mg/mg Normal 10.0-20.0 [facility] Comment on above: Order Comment: [facility] has implemented the eGFR calculation approach that does not have a coefficient for race that conforms to the NKF-ASN Task Force Recommendations. Performed By: #### 4 6124 ####[facility] [address] [id number] Wojciech Oneal M.D. [id number] CBCon 02-12-2025 AUTO NRBC 0.0 % Normal [facility] Comment on above: Performed By: #### 4 5218 ####[facility] [address] [address] Wojciech Oneal M.D. [id number] AUTO NRBC ABS COUNT 0.00 K/mcL Normal 0.00-0.00 [facility] Comment on above: Performed By: #### 4 5218 ####[facility] [address] [id number] Wojciech Oneal M.D. [id number] Erythrocyte distribution width (RBC) [Ratio] 15.3 % High 11.6-14.8 [facility] Comment on above: Performed By: #### 4 5218 ####[facility] [address] [id number] Wojciech Oneal M.D. [id number] Hematocrit (Bld) [Volume fraction] 25.3 % Low 41.0-53.0 [facility] Comment on above: Performed By: #### 4 5218 ####[facility] [address] [id number] Wojciech Oneal M.D. [id number] Hemoglobin (Bld) [Mass/Vol] 7.6 g/dL Low 13.5-17.5 [facility] Comment on above: Performed By: #### 4 5218 ####[facility] [address] [address] Wojciech Oneal M.D. [id number] MCH (RBC) [Entitic mass] 29.2 pg Normal 26.0-34.0 [facility] Comment on above: Performed By: #### 4 5218 ####[facility] [address] [address] Wojciech Oneal M.D. [id number] MCV (RBC) [Entitic vol] 97.3 fL Normal 80.0-100.0 [facility] Comment on above: Performed By: #### 4 5218 ####[facility] [address] [address] Wojciech Oneal M.D. [id number] MEAN CORPUSCULAR HEMOGLOBIN CONC 30.0 g/dL Low 31.0-37.0 [facility] Comment on above: Performed By: #### 4 5218 ####[facility] [address] [address] Wojciech Oneal M.D. [id number] Platelet mean volume (Bld) [Entitic vol] 8.8 fL Low 9.4-12.4 [facility] Comment on above: Performed By: #### 4 5218 ####[facility] [address] [address] Wojciech Oneal M.D. [id number] Platelets (Bld) [#/Vol] 519 10*3/uL High 150-400 [facility] Comment on above: Performed By: #### 4 5218 ####[facility] [address] [id number] Wojciech Oneal M.D. [id number] RBC (Bld) [#/Vol] 2.60 10*6/uL Low 4.50-5.90 [facility] Comment on above: Performed By: #### 4 5218 ####[facility] [address] [address] Wojciech Oneal M.D. [id number] WBC (Bld) [#/Vol] 9.04 10*3/uL Normal 4.50-11.00 [facility] Comment on above: Performed By: #### 4 5218 ####[facility] [address] [address] Wojciech Oneal M.D. [id number] MAGNESIUM LEVELon 02-12-2025 Magnesium [Mass/Vol] 1.8 mg/dL Normal 1.6-2.4 [facility] Comment on above: Performed By: #### 4 6109 ####[facility] [address] [id number] Wojciech Oneal M.D. [id number] OP NOTEon 02-12-2025 OP NOTE Normal [facility] PHOSPHORUSon 02-12-2025 Phosphate [Mass/Vol] 2.3 mg/dL Normal 2.3-3.7 [facility] Comment on above: Performed By: #### 4 6299 ####[facility] [address] [id number] Wojciech Oneal M.D. [id number] URINE AEROBIC CULTUREon URINE AEROBIC CULTURE Abnormal [facility] Comment on above: Performed By: #### 4 4053 ####[facility] [address] [address] Tuan Ascencio M.D. [id number] BASIC METABOLIC PANELon Anion gap [Moles/Vol] 13 mmol/L Normal 10-20 [facility] Comment on above: Order Comment: [facility] has implemented the eGFR calculation approach that does not have a coefficient for race that conforms to the NKF-ASN Task Force Recommendations. Performed By: #### 4 6124 ####[facility] [address] [id number] Wojciech Oneal M.D. [id number] Calcium [Mass/Vol] 7.2 mg/dL Low 8.4-10.2 [facility] Comment on above: Order Comment: [facility] has implemented the eGFR calculation approach that does not have a coefficient for race that conforms to the NKF-ASN Task Force Recommendations. Performed By: #### 4 6124 ####[facility] [address] [id number] Wojciech Oneal M.D. [id number] Chloride [Moles/Vol] 110 mmol/L High 98-108 [facility] Comment on above: Order Comment: [facility] has implemented the eGFR calculation approach that does not have a coefficient for race that conforms to the NKF-ASN Task Force Recommendations. Performed By: #### 4 6124 ####[facility] [address] [place], [place] [address] Wojciech Oneal M.D. [id number] Creatinine [Mass/Vol] 0.71 mg/dL Low 0.80-1.30 [facility] Comment on above: Order Comment: [facility] has implemented the eGFR calculation approach that does not have a coefficient for race that conforms to the NKF-ASN Task Force Recommendations. Performed By: #### 4 6124 ####[facility] [address] [address] Wojciech Oneal M.D. [id number] EGFR 98 mL/min/1.73 m2 Normal >=60 [facility] Comment on above: Order Comment: [facility] has implemented the eGFR calculation approach that does not have a coefficient for race that conforms to the NKF-ASN Task Force Recommendations. Result Comment: Chelsea mated GFR was calculated using the 2020 CKD-EPI creatinine equation. Performed By: #### 4 6124 ####[facility] [address] [id number] Wojciech Oneal M.D. [id number] Glucose [Mass/Vol] 102 mg/dL High 65-99 [facility] Comment on above: Order Comment: [facility] has implemented the eGFR calculation approach that does not have a coefficient for race that conforms to the NKF-ASN Task Force Recommendations. Performed By: #### 4 6124 ####[facility] [address] [id number] Wojciech Oneal M.D. [id number] HCO3 (Bld) [Moles/Vol] 23 mmol/L Normal 21-32 [facility] Comment on above: Order Comment: [facility] has implemented the eGFR calculation approach that does not have a coefficient for race that conforms to the NKF-ASN Task Force Recommendations. Performed By: #### 4 6124 ####[facility] [address] [address] Wojciech Onael M.D. [id number] Potassium [Moles/Vol] 3.9 mmol/L Normal 3.5-5.1 [facility] Comment on above: Order Comment: [facility] has implemented the eGFR calculation approach that does not have a coefficient for race that conforms to the NKF-ASN Task Force Recommendations. Result Comment: Slsebastián htly Hemolyzed Performed By: #### 4 6124 ####[facility] [address] [address] Wojciech Oneal M.D. [id number] Sodium [Moles/Vol] 142 mmol/L Normal 135-145 [facility] Comment on above: Order Comment: [facility] has implemented the eGFR calculation approach that does not have a coefficient for race that conforms to the NKF-ASN Task Force Recommendations. Performed By: #### 4 6124 ####[facility] [address] [address] Wojciech Oneal M.D. [id number] Urea nitrogen [Mass/Vol] 7 mg/dL Low 8-25 [facility] Comment on above: Order Comment: [facility] has implemented the eGFR calculation approach that does not have a coefficient for race that conforms to the NKF-ASN Task Force Recommendations. Performed By: #### 4 6124 ####[facility] [address] [id number] Wojciech Oneal M.D. [id number] Urea nitrogen/Creatinine [Mass ratio] 9.9 mg/mg Low 10.0-20.0 [facility] Comment on above: Order Comment: [facility] has implemented the eGFR calculation approach that does not have a coefficient for race that conforms to the NKF-ASN Task Force Recommendations. Performed By: #### 4 6124 ####[facility] [address], [place] [address] Wojciech Oneal M.D. [id number] CBCon 02-11-2025 AUTO NRBC 0.0 % Normal [facility] Comment on above: Performed By: #### 4 5218 ####[facility] [address] [address] Wojciech Oneal M.D. [id number] AUTO NRBC ABS COUNT 0.00 K/mcL Normal 0.00-0.00 [facility] Comment on above: Performed By: #### 4 5218 ####[facility] [address] [address] Wojciech Oneal M.D. [id number] Erythrocyte distribution width (RBC) [Ratio] 15.3 % High 11.6-14.8 [facility] Comment on above: Performed By: #### 4 5218 ####[facility] [address] [address] Wojciech Oneal M.D. [id number] Hematocrit (Bld) [Volume fraction] 27.0 % Low 41.0-53.0 [facility] Comment on above: Performed By: #### 4 5218 ####[facility] [address] [address] Wojciech Oneal M.D. [id number] Hemoglobin (Bld) [Mass/Vol] 8.1 g/dL Low 13.5-17.5 [facility] Comment on above: Performed By: #### 4 5218 ####[facility] [address] [address] Wojciech Oneal M.D. [id number] MCH (RBC) [Entitic mass] 29.2 pg Normal 26.0-34.0 [facility] Comment on above: Performed By: #### 4 5218 ####[facility] [address] [address] Wojciech Oneal M.D. [id number] MCV (RBC) [Entitic vol] 97.5 fL Normal 80.0-100.0 [facility] Comment on above: Performed By: #### 4 5218 ####[facility] [address] [address] Wojciech Oneal M.D. [id number] MEAN CORPUSCULAR HEMOGLOBIN CONC 30.0 g/dL Low 31.0-37.0 [facility] Comment on above: Performed By: #### 4 5218 ####[facility] [address] [address] Wojciech Oneal M.D. [id number] Platelet mean volume (Bld) [Entitic vol] 8.9 fL Low 9.4-12.4 [facility] Comment on above: Performed By: #### 4 5218 ####[facility] [address] [id number] Wojciech Oneal M.D. [id number] Platelets (Bld) [#/Vol] 575 10*3/uL High 150-400 [facility] Comment on above: Performed By: #### 4 5218 ####[facility] [address] [address] Wojciech Oneal M.D. [id number] RBC (Bld) [#/Vol] 2.77 10*6/uL Low 4.50-5.90 [facility] Comment on above: Performed By: #### 4 5218 ####[facility] [address] [id number] Wojciech Oneal M.D. [id number] WBC (Bld) [#/Vol] 7.39 10*3/uL Normal 4.50-11.00 [facility] Comment on above: Performed By: #### 4 5218 ####[facility] [address] [id number] Wojciech Oneal M.D. [id number] MAGNESIUM LEVELon 02-11-2025 Magnesium [Mass/Vol] 1.9 mg/dL Normal 1.6-2.4 [facility] Comment on above: Performed By: #### 4 6109 ####[facility] [address] [address] Wojciech Oneal M.D. [id number] PHOSPHORUSon 02-11-2025 Phosphate [Mass/Vol] 2.6 mg/dL Normal 2.3-3.7 [facility] Comment on above: Performed By: #### 4 6299 ####[facility] [address] [address] Wojciech Oneal M.D. [id number] URINALYSISon 02-11-2025 BACTERIA, URINE Rare Abnormal None Seen [facility] Comment on above: Order Comment: Micro scopic examination is performed on all urinalysis samples and only positive findings are reported. The test for blood on the chemical analytic portion of urinalysis may also be positive due to hemoglobinuria and myoglobinuria and if red blood cells are present they are quantified by microscopic examination. Performed By: #### 4 6625 ####[facility] [address] [id number] Wojciech Oneal M.D. [id number] BILIRUBIN, URINE Negative Normal Negative [facility] Comment on above: Order Comment: Micro scopic examination is performed on all urinalysis samples and only positive findings are reported. The test for blood on the chemical analytic portion of urinalysis may also be positive due to hemoglobinuria and myoglobinuria and if red blood cells are present they are quantified by microscopic examination. Performed By: #### 4 6625 ####[facility] [address] [id number] Wojciech Oneal M.D. [id number] BLOOD, URINE Moderate Abnormal Negative [facility] Comment on above: Order Comment: Micro scopic examination is performed on all urinalysis samples and only positive findings are reported. The test for blood on the chemical analytic portion of urinalysis may also be positive due to hemoglobinuria and myoglobinuria and if red blood cells are present they are quantified by microscopic examination. Performed By: #### 4 6625 ####[facility] [address] [address] Wojciech Oneal M.D. [id number] Clarity (U) Clear Normal Clear [facility] Comment on above: Order Comment: Micro scopic examination is performed on all urinalysis samples and only positive findings are reported. The test for blood on the chemical analytic portion of urinalysis may also be positive due to hemoglobinuria and myoglobinuria and if red blood cells are present they are quantified by microscopic examination. Performed By: #### 4 6625 ####[facility] [address] [id number] Wojciech Oneal M.D. [id number] Color (U) Yellow Normal Colorless, Yellow [facility] Comment on above: Order Comment: Micro scopic examination is performed on all urinalysis samples and only positive findings are reported. The test for blood on the chemical analytic portion of urinalysis may also be positive due to hemoglobinuria and myoglobinuria and if red blood cells are present they are quantified by microscopic examination. Performed By: #### 4 6625 ####[facility] [address] [id number] Wojciech Oneal M.D. [id number] Glucose Ql (U) Negative Normal Negative [facility] Comment on above: Order Comment: Micro scopic examination is performed on all urinalysis samples and only positive findings are reported. The test for blood on the chemical analytic portion of urinalysis may also be positive due to hemoglobinuria and myoglobinuria and if red blood cells are present they are quantified by microscopic examination. Performed By: #### 4 6625 ####[facility] [address] [id number] Wojciech Oneal M.D. [id number] Ketones Ql (U) Negative Normal Negative [facility] Comment on above: Order Comment: Micro scopic examination is performed on all urinalysis samples and only positive findings are reported. The test for blood on the chemical analytic portion of urinalysis may also be positive due to hemoglobinuria and myoglobinuria and if red blood cells are present they are quantified by microscopic examination. Performed By: #### 4 6625 ####[facility] [address], [place] [address] Wojciech Oneal M.D. [id number] Leukocyte esterase Test strip Ql (U) Negative Normal Negative [facility] Comment on above: Order Comment: Micro scopic examination is performed on all urinalysis samples and only positive findings are reported. The test for blood on the chemical analytic portion of urinalysis may also be positive due to hemoglobinuria and myoglobinuria and if red blood cells are present they are quantified by microscopic examination. Performed By: #### 4 6625 ####[facility] [address], [place] [address] Wojciech Oneal M.D. [id number] MUCUS, URINE Rare Normal None Seen, [facility] Comment on above: Order Comment: Micro scopic examination is performed on all urinalysis samples and only positive findings are reported. The test for blood on the chemical analytic portion of urinalysis may also be positive due to hemoglobinuria and myoglobinuria and if red blood cells are present they are quantified by microscopic examination. Performed By: #### 4 6625 ####[facility] [address] [id number] Wojciech Oneal M.D. [id number] NITRITE, URINE Positive Abnormal Negative [facility] Comment on above: Order Comment: Micro scopic examination is performed on all urinalysis samples and only positive findings are reported. The test for blood on the chemical analytic portion of urinalysis may also be positive due to hemoglobinuria and myoglobinuria and if red blood cells are present they are quantified by microscopic examination. Performed By: #### 4 6625 ####[facility] [address] [id number] Wojciech Oneal M.D. [id number] pH (U) 5.5 [pH] Normal 5.0-7.0 [facility] Comment on above: Order Comment: Micro scopic examination is performed on all urinalysis samples and only positive findings are reported. The test for blood on the chemical analytic portion of urinalysis may also be positive due to hemoglobinuria and myoglobinuria and if red blood cells are present they are quantified by microscopic examination. Performed By: #### 4 6625 ####[facility] [address] [id number] Wojciech Oneal M.D. [id number] Protein (U) [Mass/Vol] 30 mg/dL Abnormal Negative [facility] Comment on above: Order Comment: Micro scopic examination is performed on all urinalysis samples and only positive findings are reported. The test for blood on the chemical analytic portion of urinalysis may also be positive due to hemoglobinuria and myoglobinuria and if red blood cells are present they are quantified by microscopic examination. Result Comment: Fals e positive results may occur in urines with large amounts of hemoglobin, pH greater than 8.0, contrast medium, or disinfectants including ammonium compounds. Performed By: #### 4 6625 ####[facility] [address] [id number] Wojciech Oneal M.D. [id number] RBC LM.HPF (Urine sed) [#/Area] 11 /[HPF] High 0-3 [facility] Comment on above: Order Comment: Micro scopic examination is performed on all urinalysis samples and only positive findings are reported. The test for blood on the chemical analytic portion of urinalysis may also be positive due to hemoglobinuria and myoglobinuria and if red blood cells are present they are quantified by microscopic examination. Performed By: #### 4 6625 ####[facility] [address] [id number] Wojciech Oneal M.D. [id number] Specific gravity (U) [Rel density] 1.022 Normal 1.005-1.025 [facility] Comment on above: Order Comment: Micro scopic examination is performed on all urinalysis samples and only positive findings are reported. The test for blood on the chemical analytic portion of urinalysis may also be positive due to hemoglobinuria and myoglobinuria and if red blood cells are present they are quantified by microscopic examination. Performed By: #### 4 6625 ####[facility] [address] [id number] Wojciech Oneal M.D. [id number] SQUAMOUS EPITHELIAL 1 /hpf Normal 0-4 [facility] Comment on above: Order Comment: Micro scopic examination is performed on all urinalysis samples and only positive findings are reported. The test for blood on the chemical analytic portion of urinalysis may also be positive due to hemoglobinuria and myoglobinuria and if red blood cells are present they are quantified by microscopic examination. Performed By: #### 4 6625 ####[facility] [address] [id number] Wojciech Oneal M.D. [id number] UROBILINOGEN, URINE <2.0 Normal <2.0 [facility] Comment on above: Order Comment: Micro scopic examination is performed on all urinalysis samples and only positive findings are reported. The test for blood on the chemical analytic portion of urinalysis may also be positive due to hemoglobinuria and myoglobinuria and if red blood cells are present they are quantified by microscopic examination. Performed By: #### 4 6625 ####[facility] [address], [place] [address] Wojciech Oneal M.D. [id number] WBC LM.HPF (Urine sed) [#/Area] 6 /[HPF] High 0-5 [facility] Comment on above: Order Comment: Micro scopic examination is performed on all urinalysis samples and only positive findings are reported. The test for blood on the chemical analytic portion of urinalysis may also be positive due to hemoglobinuria and myoglobinuria and if red blood cells are present they are quantified by microscopic examination. Performed By: #### 4 6625 ####[facility] [address] [id number] Wojciech Oneal M.D. [id number] BASIC METABOLIC PANELon 09-3 -2024 Anion gap [Moles/Vol] 14 mmol/L Normal 10-20 [facility] Comment on above: Order Comment: [facility] has implemented the eGFR calculation approach that does not have a coefficient for race that conforms to the NKF-ASN Task Force Recommendations. Performed By: #### 4 6124 ####[facility] [address] [address] Wojciech Oneal M.D. [id number] Calcium [Mass/Vol] 7.1 mg/dL Low 8.4-10.2 [facility] Comment on above: Order Comment: [facility] has implemented the eGFR calculation approach that does not have a coefficient for race that conforms to the NKF-ASN Task Force Recommendations. Performed By: #### 4 6124 ####[facility] [address] [id number] Wojciech Oneal M.D. [id number] Chloride [Moles/Vol] 111 mmol/L High 98-108 [facility] Comment on above: Order Comment: [facility] has implemented the eGFR calculation approach that does not have a coefficient for race that conforms to the NKF-ASN Task Force Recommendations. Performed By: #### 4 6124 ####[facility] [address] [address] Wojciech Oneal M.D. [id number] Creatinine [Mass/Vol] 0.76 mg/dL Low 0.80-1.30 [facility] Comment on above: Order Comment: [facility] has implemented the eGFR calculation approach that does not have a coefficient for race that conforms to the NKF-ASN Task Force Recommendations. Performed By: #### 4 6124 ####[facility] [address] [address] Wojciech Oneal M.D. [id number] EGFR 96 mL/min/1.73 m2 Normal >=60 [facility] Comment on above: Order Comment: [facility] has implemented the eGFR calculation approach that does not have a coefficient for race that conforms to the NKF-ASN Task Force Recommendations. Result Comment: Chelsea mated GFR was calculated using the 2020 CKD-EPI creatinine equation. Performed By: #### 4 6124 ####[facility] [address] [address] Wojciech Oneal M.D. [id number] Glucose [Mass/Vol] 92 mg/dL Normal 65-99 [facility] Comment on above: Order Comment: [facility] has implemented the eGFR calculation approach that does not have a coefficient for race that conforms to the NKF-ASN Task Force Recommendations. Performed By: #### 4 6124 ####[facility] [address] [id number] Wojciech Oneal M.D. [id number] HCO3 (Bld) [Moles/Vol] 23 mmol/L Normal 21-32 [facility] Comment on above: Order Comment: [facility] has implemented the eGFR calculation approach that does not have a coefficient for race that conforms to the NKF-ASN Task Force Recommendations. Performed By: #### 4 6124 ####[facility] [address] [id number] Wojciech Oneal M.D. [id number] Potassium [Moles/Vol] 3.5 mmol/L Normal 3.5-5.1 [facility] Comment on above: Order Comment: [facility] has implemented the eGFR calculation approach that does not have a coefficient for race that conforms to the NKF-ASN Task Force Recommendations. Performed By: #### 4 6124 ####[facility] [address] [id number] Wojciech Oneal M.D. [id number] Sodium [Moles/Vol] 144 mmol/L Normal 135-145 [facility] Comment on above: Order Comment: [facility] has implemented the eGFR calculation approach that does not have a coefficient for race that conforms to the NKF-ASN Task Force Recommendations. Performed By: #### 4 6124 ####[facility] [address] [id number] Wojciech Oneal M.D. [id number] Urea nitrogen [Mass/Vol] 7 mg/dL Low 8-25 [facility] Comment on above: Order Comment: [facility] has implemented the eGFR calculation approach that does not have a coefficient for race that conforms to the NKF-ASN Task Force Recommendations. Performed By: #### 4 6124 ####[facility] [address] [id number] Wojciech Oneal M.D. [id number] Urea nitrogen/Creatinine [Mass ratio] 9.2 mg/mg Low 10.0-20.0 [facility] Comment on above: Order Comment: [facility] has implemented the eGFR calculation approach that does not have a coefficient for race that conforms to the NKF-ASN Task Force Recommendations. Performed By: #### 4 6124 ####[facility] [address] [id number] Wojciech Oneal M.D. [id number] CBCon 02-10-2025 AUTO NRBC 0.0 % Normal [facility] Comment on above: Performed By: #### 4 5218 ####[facility] [address] [id number] Wojciech Oneal M.D. [id number] AUTO NRBC ABS COUNT 0.00 K/mcL Normal 0.00-0.00 [facility] Comment on above: Performed By: #### 4 5218 ####[facility] [address] [id number] Wojciech Oneal M.D. [id number] Erythrocyte distribution width (RBC) [Ratio] 15.2 % High 11.6-14.8 [facility] Comment on above: Performed By: #### 4 5218 ####[facility] [address] [id number] Wojciech Oneal M.D. [id number] Hematocrit (Bld) [Volume fraction] 24.7 % Low 41.0-53.0 [facility] Comment on above: Performed By: #### 4 5218 ####[facility] [address] [id number] Wojciech Oneal M.D. [id number] Hemoglobin (Bld) [Mass/Vol] 7.4 g/dL Low 13.5-17.5 [facility] Comment on above: Performed By: #### 4 5218 ####[facility] [address] [address] Wojciech Oneal M.D. [id number] MCH (RBC) [Entitic mass] 29.0 pg Normal 26.0-34.0 [facility] Comment on above: Performed By: #### 4 5218 ####[facility] [address] [address] Wojciech Oneal M.D. [id number] MCV (RBC) [Entitic vol] 96.9 fL Normal 80.0-100.0 [facility] Comment on above: Performed By: #### 4 5218 ####[facility] [address] [address] Wojciech Oneal M.D. [id number] MEAN CORPUSCULAR HEMOGLOBIN CONC 30.0 g/dL Low 31.0-37.0 [facility] Comment on above: Performed By: #### 4 5218 ####[facility] [address] [address] Wojciech Oneal M.D. [id number] Platelet mean volume (Bld) [Entitic vol] 8.7 fL Low 9.4-12.4 [facility] Comment on above: Performed By: #### 4 5218 ####[facility] [address] [address] Wojciech Oneal M.D. [id number] Platelets (Bld) [#/Vol] 508 10*3/uL High 150-400 [facility] Comment on above: Performed By: #### 4 5218 ####[facility] [address] [address] Wojciech Oneal M.D. [id number] RBC (Bld) [#/Vol] 2.55 10*6/uL Low 4.50-5.90 [facility] Comment on above: Performed By: #### 4 5218 ####[facility] [address] [address] Wojciech Oneal M.D. [id number] WBC (Bld) [#/Vol] 7.24 10*3/uL Normal 4.50-11.00 [facility] Comment on above: Performed By: #### 4 5218 ####[facility] [address] [id number] Wojciech Oneal M.D. [id number] MAGNESIUM LEVELon 02-10-2025 Magnesium [Mass/Vol] 1.9 mg/dL Normal 1.6-2.4 [facility] Comment on above: Performed By: #### 4 6109 ####[facility] [address] [address] Wojciech Oneal M.D. [id number] PHOSPHORUSon 02-10-2025 Phosphate [Mass/Vol] 2.6 mg/dL Normal 2.3-3.7 [facility] Comment on above: Performed By: #### 4 6299 ####[facility] [address] [address] Wojciech Oneal M.D. [id number] POTASSIUM LEVELon 02-10-2025 Potassium [Moles/Vol] 3.8 mmol/L Normal 3.5-5.1 [facility] Comment on above: Performed By: #### 4 6351 ####[facility] [address] [address] Wojciech Oneal M.D. [id number] TSH WITH REFLEX FREE T4on TSH Qn 2.27 m[IU]/L Normal 0.27-4.20 [facility] Comment on above: Performed By: #### 4 6612 ####[facility] [address] [id number] Wojciech Oneal M.D. [id number] TYPE AND SCREENon 02-10-2025 TYPE AND SCREEN ABORH: O Positive AB SCREEN: Negative EXPIRATION DATE: 02/13/2025 23:59 EST Normal [facility] Comment on above: Performed By: #### 4 6619 ####[facility] [address] [place] [address] Radha Kelsey MD [id number] [facility] BASIC METABOLIC PANELon 01-13 Anion gap [Moles/Vol] 14 mmol/L Normal 10-20 [facility] Comment on above: Order Comment: [facility] has implemented the eGFR calculation approach that does not have a coefficient for race that conforms to the NKF-ASN Task Force Recommendations. Performed By: #### 4 6124 ####[facility] [address] [address] Wojciech Oneal M.D. [id number] Calcium [Mass/Vol] 7.2 mg/dL Low 8.4-10.2 [facility] Comment on above: Order Comment: [facility] has implemented the eGFR calculation approach that does not have a coefficient for race that conforms to the NKF-ASN Task Force Recommendations. Performed By: #### 4 6124 ####[facility] [address] [id number] Wojciech Oneal M.D. [id number] Chloride [Moles/Vol] 112 mmol/L High 98-108 [facility] Comment on above: Order Comment: [facility] has implemented the eGFR calculation approach that does not have a coefficient for race that conforms to the NKF-ASN Task Force Recommendations. Performed By: #### 4 6124 ####[facility] [address] [id number] Wojciech Oneal M.D. [id number] Creatinine [Mass/Vol] 0.79 mg/dL Low 0.80-1.30 [facility] Comment on above: Order Comment: [facility] has implemented the eGFR calculation approach that does not have a coefficient for race that conforms to the NKF-ASN Task Force Recommendations. Performed By: #### 4 6124 ####[facility] [address] [id number] Wojciech Oneal M.D. [id number] EGFR 95 mL/min/1.73 m2 Normal >=60 [facility] Comment on above: Order Comment: [facility] has implemented the eGFR calculation approach that does not have a coefficient for race that conforms to the NKF-ASN Task Force Recommendations. Result Comment: Chelsea mated GFR was calculated using the 2020 CKD-EPI creatinine equation. Performed By: #### 4 6124 ####[facility] [address] [id number] Wojciech Oneal M.D. [id number] Glucose [Mass/Vol] 98 mg/dL Normal 65-99 [facility] Comment on above: Order Comment: [facility] has implemented the eGFR calculation approach that does not have a coefficient for race that conforms to the NKF-ASN Task Force Recommendations. Performed By: #### 4 6124 ####[facility] [address] [address] Wojciech Oneal M.D. [id number] HCO3 (Bld) [Moles/Vol] 21 mmol/L Normal 21-32 [facility] Comment on above: Order Comment: [facility] has implemented the eGFR calculation approach that does not have a coefficient for race that conforms to the NKF-ASN Task Force Recommendations. Performed By: #### 4 6124 ####[facility] [address] [id number] Wojciech Oneal M.D. [id number] Potassium [Moles/Vol] 3.5 mmol/L Normal 3.5-5.1 [facility] Comment on above: Order Comment: [facility] has implemented the eGFR calculation approach that does not have a coefficient for race that conforms to the NKF-ASN Task Force Recommendations. Performed By: #### 4 6124 ####[facility] [address] [id number] Wojciech Oneal M.D. [id number] Sodium [Moles/Vol] 143 mmol/L Normal 135-145 [facility] Comment on above: Order Comment: [facility] has implemented the eGFR calculation approach that does not have a coefficient for race that conforms to the NKF-ASN Task Force Recommendations. Performed By: #### 4 6124 ####[facility] [address], [place] [address] Wojciech Oneal M.D. [id number] Urea nitrogen [Mass/Vol] 8 mg/dL Normal 8-25 [facility] Comment on above: Order Comment: [facility] has implemented the eGFR calculation approach that does not have a coefficient for race that conforms to the NKF-ASN Task Force Recommendations. Performed By: #### 4 6124 ####[facility] [address] [address] Wojciech Oneal M.D. [id number] Urea nitrogen/Creatinine [Mass ratio] 10.1 mg/mg Normal 10.0-20.0 [facility] Comment on above: Order Comment: [facility] has implemented the eGFR calculation approach that does not have a coefficient for race that conforms to the NKF-ASN Task Force Recommendations. Performed By: #### 4 6124 ####[facility] [address] [id number] Wojciech Oneal M.D. [id number] CBCon 02-09-2025 AUTO NRBC 0.0 % Normal [facility] Comment on above: Performed By: #### 4 5218 ####[facility] [address] [id number] Wojciech Oneal M.D. [id number] AUTO NRBC ABS COUNT 0.00 K/mcL Normal 0.00-0.00 [facility] Comment on above: Performed By: #### 4 5218 ####[facility] [address] [id number] Wojciech Oneal M.D. [id number] Erythrocyte distribution width (RBC) [Ratio] 15.2 % High 11.6-14.8 [facility] Comment on above: Performed By: #### 4 5218 ####[facility] [address] [id number] Wojciech Oneal M.D. [id number] Hematocrit (Bld) [Volume fraction] 28.6 % Low 41.0-53.0 [facility] Comment on above: Performed By: #### 4 5218 ####[facility] [address] [address] Wojciech Oneal M.D. [id number] Hemoglobin (Bld) [Mass/Vol] 8.5 g/dL Low 13.5-17.5 [facility] Comment on above: Performed By: #### 4 5218 ####[facility] [address] [id number] Wojciech Oneal M.D. [id number] MCH (RBC) [Entitic mass] 28.5 pg Normal 26.0-34.0 [facility] Comment on above: Performed By: #### 4 5218 ####[facility] [address] [id number] Wojciech Oneal M.D. [id number] MCV (RBC) [Entitic vol] 96.0 fL Normal 80.0-100.0 [facility] Comment on above: Performed By: #### 4 5218 ####[facility] [address] [address] Wojciech Oneal M.D. [id number] MEAN CORPUSCULAR HEMOGLOBIN CONC 29.7 g/dL Low 31.0-37.0 [facility] Comment on above: Performed By: #### 4 5218 ####[facility] [address] [address] Wojciech Oneal M.D. [id number] Platelet mean volume (Bld) [Entitic vol] 8.7 fL Low 9.4-12.4 [facility] Comment on above: Performed By: #### 4 5218 ####[facility] [address] [id number] Wojciech Oneal M.D. [id number] Platelets (Bld) [#/Vol] 527 10*3/uL High 150-400 [facility] Comment on above: Result Comment: Resu lts checked Performed By: #### 4 [id number] ####[facility] [address] [id number] Wojciech Oneal M.D. [id number] RBC (Bld) [#/Vol] 2.98 10*6/uL Low 4.50-5.90 [facility] Comment on above: Performed By: #### 4 5218 ####[facility] [address] [address] Wojciech Oneal M.D. [id number] WBC (Bld) [#/Vol] 7.38 10*3/uL Normal 4.50-11.00 [facility] Comment on above: Performed By: #### 4 5218 ####[facility] [address], [place] [address] Wojciech Oneal M.D. [id number] MAGNESIUM LEVELon 02-09-2025 Magnesium [Mass/Vol] 2.2 mg/dL Normal 1.6-2.4 [facility] Comment on above: Performed By: #### 4 6109 ####[facility] [address] [id number] Wojciech Oneal M.D. [id number] Magnesium [Mass/Vol] 1.8 mg/dL Normal 1.6-2.4 [facility] Comment on above: Performed By: #### 4 6109 ####[facility] [address] [id number] Wojciech Oneal M.D. [id number] PHOSPHORUSon 02-09-2025 Phosphate [Mass/Vol] 2.4 mg/dL Normal 2.3-3.7 [facility] Comment on above: Performed By: #### 4 6299 ####[facility] [address], [place] [address] Wojciech Oneal M.D. [id number] POTASSIUM LEVELon 02-09-2025 Potassium [Moles/Vol] 3.2 mmol/L Low 3.5-5.1 [facility] Comment on above: Performed By: #### 4 6351 ####[facility] [address], [place] [address] Wojciech Oneal M.D. [id number] BASIC METABOLIC PANELon 01-13 Anion gap [Moles/Vol] 14 mmol/L Normal 10-20 [facility] Comment on above: Order Comment: [facility] has implemented the eGFR calculation approach that does not have a coefficient for race that conforms to the NKF-ASN Task Force Recommendations. Performed By: #### 4 6124 ####[facility] [address], [place] [address] Wojciech Oneal M.D. [id number] Calcium [Mass/Vol] 7.2 mg/dL Low 8.4-10.2 [facility] Comment on above: Order Comment: [facility] has implemented the eGFR calculation approach that does not have a coefficient for race that conforms to the NKF-ASN Task Force Recommendations. Performed By: #### 4 6124 ####[facility] [address] [id number] Wojciech Oneal M.D. [id number] Chloride [Moles/Vol] 113 mmol/L High 98-108 [facility] Comment on above: Order Comment: [facility] has implemented the eGFR calculation approach that does not have a coefficient for race that conforms to the NKF-ASN Task Force Recommendations. Performed By: #### 4 6124 ####[facility] [address] [id number] Wojciech Oneal M.D. [id number] Creatinine [Mass/Vol] 0.85 mg/dL Normal 0.80-1.30 [facility] Comment on above: Order Comment: [facility] has implemented the eGFR calculation approach that does not have a coefficient for race that conforms to the NKF-ASN Task Force Recommendations. Performed By: #### 4 6124 ####[facility] [address] [id number] Wojciech Oneal M.D. [id number] EGFR 93 mL/min/1.73 m2 Normal >=60 [facility] Comment on above: Order Comment: [facility] has implemented the eGFR calculation approach that does not have a coefficient for race that conforms to the NKF-ASN Task Force Recommendations. Result Comment: Chelsea mated GFR was calculated using the 2020 CKD-EPI creatinine equation. Performed By: #### 4 6124 ####[facility] [address] [id number] Wojciech Oneal M.D. [id number] Glucose [Mass/Vol] 83 mg/dL Normal 65-99 [facility] Comment on above: Order Comment: [facility] has implemented the eGFR calculation approach that does not have a coefficient for race that conforms to the NKF-ASN Task Force Recommendations. Performed By: #### 4 6124 ####[facility] [address] [address] Wojciech Oneal M.D. [id number] HCO3 (Bld) [Moles/Vol] 22 mmol/L Normal 21-32 [facility] Comment on above: Order Comment: [facility] has implemented the eGFR calculation approach that does not have a coefficient for race that conforms to the NKF-ASN Task Force Recommendations. Performed By: #### 4 6124 ####[facility] [address] [address] Wojciech Oneal M.D. [id number] Potassium [Moles/Vol] 3.8 mmol/L Normal 3.5-5.1 [facility] Comment on above: Order Comment: [facility] has implemented the eGFR calculation approach that does not have a coefficient for race that conforms to the NKF-ASN Task Force Recommendations. Performed By: #### 4 6124 ####[facility] [address] [id number] Wojciech Oneal M.D. [id number] Sodium [Moles/Vol] 145 mmol/L Normal 135-145 [facility] Comment on above: Order Comment: [facility] has implemented the eGFR calculation approach that does not have a coefficient for race that conforms to the NKF-ASN Task Force Recommendations. Performed By: #### 4 6124 ####[facility] [address] [id number] Wojciech Oneal M.D. [id number] Urea nitrogen [Mass/Vol] 10 mg/dL Normal 8-25 [facility] Comment on above: Order Comment: [facility] has implemented the eGFR calculation approach that does not have a coefficient for race that conforms to the NKF-ASN Task Force Recommendations. Performed By: #### 4 6124 ####[facility] [address], [place] [address] Wojciech Oneal M.D. [id number] Urea nitrogen/Creatinine [Mass ratio] 11.8 mg/mg Normal 10.0-20.0 [facility] Comment on above: Order Comment: [facility] has implemented the eGFR calculation approach that does not have a coefficient for race that conforms to the NKF-ASN Task Force Recommendations. Performed By: #### 4 6193 ####[facility] [address] [id number] Wojciech Oneal M.D. [id number] CBCon 02-08-2025 AUTO NRBC 0.0 % Normal [facility] Comment on above: Performed By: #### 4 5218 ####[facility] [address] [address] Wojciech Oneal M.D. [id number] AUTO NRBC ABS COUNT 0.00 K/mcL Normal 0.00-0.00 [facility] Comment on above: Performed By: #### 4 5218 ####[facility] [address] [address] Wojciech Oneal M.D. [id number] Erythrocyte distribution width (RBC) [Ratio] 14.9 % High 11.6-14.8 [facility] Comment on above: Performed By: #### 4 5218 ####[place] [address] [address] Wojciech Oneal M.D. [id number] Hematocrit (Bld) [Volume fraction] 24.2 % Low 41.0-53.0 [facility] Comment on above: Performed By: #### 4 5218 ####[place] [address] [address] Wojciech Oneal M.D. [id number] Hemoglobin (Bld) [Mass/Vol] 7.2 g/dL Low 13.5-17.5 [facility] Comment on above: Performed By: #### 4 5218 ####[facility] [address] [address] Wojciech Oneal M.D. [id number] MCH (RBC) [Entitic mass] 28.9 pg Normal 26.0-34.0 [facility] Comment on above: Performed By: #### 4 5218 ####[facility] [address] [address] Wojciech Oneal M.D. [id number] MCV (RBC) [Entitic vol] 97.2 fL Normal 80.0-100.0 [facility] Comment on above: Performed By: #### 4 5218 ####[facility] [address] [address] Wojciech Oneal M.D. [id number] MEAN CORPUSCULAR HEMOGLOBIN CONC 29.8 g/dL Low 31.0-37.0 [facility] Comment on above: Performed By: #### 4 5218 ####[facility] [address] [id number] Wojciech Oneal M.D. [id number] Platelet mean volume (Bld) [Entitic vol] 10.4 fL Normal 9.4-12.4 [facility] Comment on above: Performed By: #### 4 5218 ####[facility] [address] [address] Wojciech Oneal M.D. [id number] Platelets (Bld) [#/Vol] 329 10*3/uL Normal 150-400 [facility] Comment on above: Performed By: #### 4 5218 ####[facility] [address] [address] Wojciech Oneal M.D. [id number] RBC (Bld) [#/Vol] 2.49 10*6/uL Low 4.50-5.90 [facility] Comment on above: Performed By: #### 4 5218 ####[facility] [address] [id number] Wojciech Oneal M.D. [id number] WBC (Bld) [#/Vol] 7.10 10*3/uL Normal 4.50-11.00 [facility] Comment on above: Performed By: #### 4 5218 ####[facility] [address] [id number] Wojciech Oneal M.D. [id number] MAGNESIUM LEVELon 02-08-2025 Magnesium [Mass/Vol] 2.0 mg/dL Normal 1.6-2.4 [facility] Comment on above: Performed By: #### 4 6109 ####[facility] [address] [id number] Wojciech Oneal M.D. [id number] PHOSPHORUSon 02-08-2025 Phosphate [Mass/Vol] 2.6 mg/dL Normal 2.3-3.7 [facility] Comment on above: Performed By: #### 4 6299 ####[facility] [address], [place] [address] Wojciech Oneal M.D. [id number] BASIC METABOLIC PANELon 01-13 Anion gap [Moles/Vol] 14 mmol/L Normal 10-20 [facility] Comment on above: Order Comment: [facility] has implemented the eGFR calculation approach that does not have a coefficient for race that conforms to the NKF-ASN Task Force Recommendations. Performed By: #### 4 6124 ####[facility] [address] [id number] Wojciech Oneal M.D. [id number] Calcium [Mass/Vol] 7.3 mg/dL Low 8.4-10.2 [facility] Comment on above: Order Comment: [facility] has implemented the eGFR calculation approach that does not have a coefficient for race that conforms to the NKF-ASN Task Force Recommendations. Performed By: #### 4 6124 ####[facility] [address] [id number] Wojciech Oneal M.D. [id number] Chloride [Moles/Vol] 112 mmol/L High 98-108 [facility] Comment on above: Order Comment: [facility] has implemented the eGFR calculation approach that does not have a coefficient for race that conforms to the NKF-ASN Task Force Recommendations. Performed By: #### 4 6124 ####[facility] [address], [place] [address] Wojciech Oneal M.D. [id number] Creatinine [Mass/Vol] 0.94 mg/dL Normal 0.80-1.30 [facility] Comment on above: Order Comment: [facility] has implemented the eGFR calculation approach that does not have a coefficient for race that conforms to the NKF-ASN Task Force Recommendations. Performed By: #### 4 6124 ####[facility] [address] [id number] Wojciech Oneal M.D. [id number] EGFR 87 mL/min/1.73 m2 Normal >=60 [facility] Comment on above: Order Comment: [facility] has implemented the eGFR calculation approach that does not have a coefficient for race that conforms to the NKF-ASN Task Force Recommendations. Result Comment: Chelsea mated GFR was calculated using the 2020 CKD-EPI creatinine equation. Performed By: #### 4 6124 ####[facility] [address] [address] Wojciech Oneal M.D. [id number] Glucose [Mass/Vol] 97 mg/dL Normal 65-99 [facility] Comment on above: Order Comment: [facility] has implemented the eGFR calculation approach that does not have a coefficient for race that conforms to the NKF-ASN Task Force Recommendations. Performed By: #### 4 6124 ####[facility] [address] [address] Wojciech Oneal M.D. [id number] HCO3 (Bld) [Moles/Vol] 21 mmol/L Normal 21-32 [facility] Comment on above: Order Comment: [facility] has implemented the eGFR calculation approach that does not have a coefficient for race that conforms to the NKF-ASN Task Force Recommendations. Performed By: #### 4 6124 ####[facility] [address] [address] Wojciech Oneal M.D. [id number] Potassium [Moles/Vol] 3.5 mmol/L Normal 3.5-5.1 [facility] Comment on above: Order Comment: [facility] has implemented the eGFR calculation approach that does not have a coefficient for race that conforms to the NKF-ASN Task Force Recommendations. Performed By: #### 4 6124 ####[facility] [address] [address] Wojciech Oneal M.D. [id number] Sodium [Moles/Vol] 143 mmol/L Normal 135-145 [facility] Comment on above: Order Comment: [facility] has implemented the eGFR calculation approach that does not have a coefficient for race that conforms to the NKF-ASN Task Force Recommendations. Performed By: #### 4 6124 ####[facility] [address] [id number] Wojciech Oneal M.D. [id number] Urea nitrogen [Mass/Vol] 10 mg/dL Normal 8-25 [facility] Comment on above: Order Comment: [facility] has implemented the eGFR calculation approach that does not have a coefficient for race that conforms to the NKF-ASN Task Force Recommendations. Performed By: #### 4 6124 ####[facility] [address] [id number] Wojciech Oneal M.D. [id number] Urea nitrogen/Creatinine [Mass ratio] 10.6 mg/mg Normal 10.0-20.0 [facility] Comment on above: Order Comment: [facility] has implemented the eGFR calculation approach that does not have a coefficient for race that conforms to the NKF-ASN Task Force Recommendations. Performed By: #### 4 6124 ####[facility] [address] [id number] Wojciech Oneal M.D. [id number] CBCon 02-07-2025 AUTO NRBC 0.0 % Normal [facility] Comment on above: Performed By: #### 4 5218 ####[facility] [address] [id number] Wojciech Oneal M.D. [id number] AUTO NRBC ABS COUNT 0.00 K/mcL Normal 0.00-0.00 [facility] Comment on above: Performed By: #### 4 5218 ####[facility] [address] [id number] Wojciech Oneal M.D. [id number] Erythrocyte distribution width (RBC) [Ratio] 15.1 % High 11.6-14.8 [facility] Comment on above: Performed By: #### 4 5218 ####[facility] [address], [place] [address] Wojciech Oneal M.D. [id number] Hematocrit (Bld) [Volume fraction] 25.7 % Low 41.0-53.0 [facility] Comment on above: Performed By: #### 4 5218 ####[facility] [address] [id number] Wojciech Oneal M.D. [id number] Hemoglobin (Bld) [Mass/Vol] 7.5 g/dL Low 13.5-17.5 [facility] Comment on above: Performed By: #### 4 5218 ####[facility] [address] [id number] Wojciech Oneal M.D. [id number] MCH (RBC) [Entitic mass] 28.3 pg Normal 26.0-34.0 [facility] Comment on above: Performed By: #### 4 5218 ####[facility] [address] [address] Wojciech Oneal M.D. [id number] MCV (RBC) [Entitic vol] 97.0 fL Normal 80.0-100.0 [facility] Comment on above: Performed By: #### 4 5218 ####[facility] [address] [address] Wojciech Oneal M.D. [id number] MEAN CORPUSCULAR HEMOGLOBIN CONC 29.2 g/dL Low 31.0-37.0 [facility] Comment on above: Performed By: #### 4 5218 ####[facility] [address] [address] Wojciech Oneal M.D. [id number] Platelet mean volume (Bld) [Entitic vol] 9.0 fL Low 9.4-12.4 [facility] Comment on above: Performed By: #### 4 5218 ####[facility] [address] [address] Wojciech Oneal M.D. [id number] Platelets (Bld) [#/Vol] 382 10*3/uL Normal 150-400 [facility] Comment on above: Performed By: #### 4 5218 ####[facility] [address] [id number] Wojciech Oneal M.D. [id number] RBC (Bld) [#/Vol] 2.65 10*6/uL Low 4.50-5.90 [facility] Comment on above: Performed By: #### 4 5218 ####[facility] [address] [address] Wojciech Oneal M.D. [id number] WBC (Bld) [#/Vol] 7.01 10*3/uL Normal 4.50-11.00 [facility] Comment on above: Performed By: #### 4 5218 ####[facility] [address], [place] [address] Wojciech Oneal M.D. [id number] MAGNESIUM LEVELon 02-07-2025 Magnesium [Mass/Vol] 1.7 mg/dL Normal 1.6-2.4 [facility] Comment on above: Performed By: #### 4 6109 ####[facility] [address] [id number] Wojciech Oneal M.D. [id number] PHOSPHORUSon 02-07-2025 Phosphate [Mass/Vol] 2.6 mg/dL Normal 2.3-3.7 [facility] Comment on above: Performed By: #### 4 6299 ####[facility] [address], [place] [address] Wojciech Oneal M.D. [id number] POTASSIUM LEVELon 02-07-2025 Potassium [Moles/Vol] 3.7 mmol/L Normal 3.5-5.1 [facility] Comment on above: Performed By: #### 4 6351 ####[facility] [address], [place] [address] Wojciech Oneal M.D. [id number] BASIC METABOLIC PANELon 01-13 Anion gap [Moles/Vol] 14 mmol/L Normal 10-20 [facility] Comment on above: Order Comment: [facility] has implemented the eGFR calculation approach that does not have a coefficient for race that conforms to the NKF-ASN Task Force Recommendations. Performed By: #### 4 6124 ####[facility] [address], [place] [address] Wojciech Oneal M.D. [id number] Calcium [Mass/Vol] 7.4 mg/dL Low 8.4-10.2 [facility] Comment on above: Order Comment: [facility] has implemented the eGFR calculation approach that does not have a coefficient for race that conforms to the NKF-ASN Task Force Recommendations. Performed By: #### 4 6124 ####[facility] [address] [id number] Wojciech Oneal M.D. [id number] Chloride [Moles/Vol] 114 mmol/L High 98-108 [facility] Comment on above: Order Comment: [facility] has implemented the eGFR calculation approach that does not have a coefficient for race that conforms to the NKF-ASN Task Force Recommendations. Performed By: #### 4 6124 ####[facility] [address] [address] Wojciech Oneal M.D. [id number] Creatinine [Mass/Vol] 1.03 mg/dL Normal 0.80-1.30 [facility] Comment on above: Order Comment: [facility] has implemented the eGFR calculation approach that does not have a coefficient for race that conforms to the NKF-ASN Task Force Recommendations. Performed By: #### 4 6124 ####[facility] [address] [id number] Wojciech Oneal M.D. [id number] EGFR 78 mL/min/1.73 m2 Normal >=60 [facility] Comment on above: Order Comment: [facility] has implemented the eGFR calculation approach that does not have a coefficient for race that conforms to the NKF-ASN Task Force Recommendations. Result Comment: Chelsea mated GFR was calculated using the 2020 CKD-EPI creatinine equation. Performed By: #### 4 6124 ####[facility] [address] [id number] Wojciech Oneal M.D. [id number] Glucose [Mass/Vol] 91 mg/dL Normal 65-99 [facility] Comment on above: Order Comment: [facility] has implemented the eGFR calculation approach that does not have a coefficient for race that conforms to the NKF-ASN Task Force Recommendations. Performed By: #### 4 6124 ####[facility] [address] [id number] Wojciech Oneal M.D. [id number] HCO3 (Bld) [Moles/Vol] 21 mmol/L Normal 21-32 [facility] Comment on above: Order Comment: [facility] has implemented the eGFR calculation approach that does not have a coefficient for race that conforms to the NKF-ASN Task Force Recommendations. Performed By: #### 4 6124 ####[facility] [address], [place] [address] Wojciech Oneal M.D. [id number] Potassium [Moles/Vol] 3.6 mmol/L Normal 3.5-5.1 [facility] Comment on above: Order Comment: [facility] has implemented the eGFR calculation approach that does not have a coefficient for race that conforms to the NKF-ASN Task Force Recommendations. Performed By: #### 4 6124 ####[facility] [address], [place] [address] Wojciech Oneal M.D. [id number] Sodium [Moles/Vol] 145 mmol/L Normal 135-145 [facility] Comment on above: Order Comment: [facility] has implemented the eGFR calculation approach that does not have a coefficient for race that conforms to the NKF-ASN Task Force Recommendations. Performed By: #### 4 6124 ####[facility] [address] [id number] Wojciech Oneal M.D. [id number] Urea nitrogen [Mass/Vol] 10 mg/dL Normal 8-25 [facility] Comment on above: Order Comment: [facility] has implemented the eGFR calculation approach that does not have a coefficient for race that conforms to the NKF-ASN Task Force Recommendations. Performed By: #### 4 6124 ####[facility] [address], [place] [address] Wojciech Oneal M.D. [id number] Urea nitrogen/Creatinine [Mass ratio] 9.7 mg/mg Low 10.0-20.0 [facility] Comment on above: Order Comment: [facility] has implemented the eGFR calculation approach that does not have a coefficient for race that conforms to the NKF-ASN Task Force Recommendations. Performed By: #### 4 6124 ####[facility] [address], [place] [address] Wojciech Oneal M.D. [id number] CBCon 02-06-2025 AUTO NRBC 0.0 % Normal [facility] Comment on above: Performed By: #### 4 5218 ####[facility] [address] [address] Wojciech Oneal M.D. [id number] AUTO NRBC ABS COUNT 0.00 K/mcL Normal 0.00-0.00 [facility] Comment on above: Performed By: #### 4 5218 ####[facility] [address] [address] Wojciech Oneal M.D. [id number] Erythrocyte distribution width (RBC) [Ratio] 14.9 % High 11.6-14.8 [facility] Comment on above: Performed By: #### 4 5218 ####[facility] [address] [address] Wojciech Oneal M.D. [id number] Hematocrit (Bld) [Volume fraction] 27.1 % Low 41.0-53.0 [facility] Comment on above: Performed By: #### 4 5218 ####[facility] [address] [address] Wojciech Oneal M.D. [id number] Hemoglobin (Bld) [Mass/Vol] 8.0 g/dL Low 13.5-17.5 [facility] Comment on above: Performed By: #### 4 5218 ####[facility] [address] [address] Wojciech Oneal M.D. [id number] MCH (RBC) [Entitic mass] 28.9 pg Normal 26.0-34.0 [facility] Comment on above: Performed By: #### 4 5218 ####[facility] [address] [address] Wojciech Oneal M.D. [id number] MCV (RBC) [Entitic vol] 97.8 fL Normal 80.0-100.0 [facility] Comment on above: Performed By: #### 4 5218 ####[facility] [address] [address] Wojciech Oneal M.D. [id number] MEAN CORPUSCULAR HEMOGLOBIN CONC 29.5 g/dL Low 31.0-37.0 [facility] Comment on above: Performed By: #### 4 5218 ####[facility] [address], [place] [address] Wojciech Oneal M.D. [id number] Platelet mean volume (Bld) [Entitic vol] 9.1 fL Low 9.4-12.4 [facility] Comment on above: Performed By: #### 4 5218 ####[facility] [address], [place] [address] Wojciech Oneal M.D. [id number] Platelets (Bld) [#/Vol] 404 10*3/uL High 150-400 [facility] Comment on above: Performed By: #### 4 5218 ####[facility] [address], [place] [address] Wojciech Oneal M.D. [id number] RBC (Bld) [#/Vol] 2.77 10*6/uL Low 4.50-5.90 [facility] Comment on above: Performed By: #### 4 5218 ####[facility] [address], [place] [address] Wojciech Oneal M.D. [id number] WBC (Bld) [#/Vol] 7.93 10*3/uL Normal 4.50-11.00 [facility] Comment on above: Performed By: #### 4 5218 ####[facility] [address], [place] [address] Wojciech Oneal M.D. [id number] CBC W/Diff, Automatedon - PATH REV Reviewed Normal [facility] [place] [facility] Comment on above: Result Comment: SEE REPORT IN PATIENT'S EMR AMENDED REPORT 02/06/25 1126 PATH REV previously reported as: September Performed By: #### L 509.7001, L100.0100, L503.6005, L503.7505, L501.3620, L500.2500, L501.5200, L500.3400 #### [facility] [place] [facility] [address] [place], [address] MAGNESIUM LEVELon 02-06-2025 Magnesium [Mass/Vol] 1.9 mg/dL Normal 1.6-2.4 [facility] Comment on above: Performed By: #### 4 6109 ####[facility] [address], [place] [address] Wojciech Oneal M.D. [id number] PHOSPHORUSon 02-06-2025 Phosphate [Mass/Vol] 2.5 mg/dL Normal 2.3-3.7 [facility] Comment on above: Performed By: #### 4 6299 ####[facility] [address] [address] [id number] Wojciech Oneal M.D. [id number] BASIC METABOLIC PANELon 01-13 Anion gap [Moles/Vol] 13 mmol/L Normal 10-20 [facility] Comment on above: Order Comment: [facility] has implemented the eGFR calculation approach that does not have a coefficient for race that conforms to the NKF-ASN Task Force Recommendations. Performed By: #### 4 6124 ####[facility] [address], [place] [address] Wojciech Oneal M.D. [id number] Calcium [Mass/Vol] 7.2 mg/dL Low 8.4-10.2 [facility] Comment on above: Order Comment: [facility] has implemented the eGFR calculation approach that does not have a coefficient for race that conforms to the NKF-ASN Task Force Recommendations. Performed By: #### 4 6124 ####[facility] [address], [place] [address] Wojciech Oneal M.D. [id number] Chloride [Moles/Vol] 114 mmol/L High 98-108 [facility] Comment on above: Order Comment: [facility] has implemented the eGFR calculation approach that does not have a coefficient for race that conforms to the NKF-ASN Task Force Recommendations. Performed By: #### 4 6124 ####[facility] [address], [place] [address] Wojciech Oneal M.D. [id number] Creatinine [Mass/Vol] 1.05 mg/dL Normal 0.80-1.30 [facility] Comment on above: Order Comment: [facility] has implemented the eGFR calculation approach that does not have a coefficient for race that conforms to the NKF-ASN Task Force Recommendations. Performed By: #### 4 6124 ####[facility] [address], [place] [address] Wojciech Oneal M.D. [id number] EGFR 76 mL/min/1.73 m2 Normal >=60 [facility] Comment on above: Order Comment: [facility] has implemented the eGFR calculation approach that does not have a coefficient for race that conforms to the NKF-ASN Task Force Recommendations. Result Comment: Chelsea mated GFR was calculated using the 2020 CKD-EPI creatinine equation. Performed By: #### 4 6124 ####[facility] [address] [id number] Wojciech Oneal M.D. [id number] Glucose [Mass/Vol] 105 mg/dL High 65-99 [facility] Comment on above: Order Comment: [facility] has implemented the eGFR calculation approach that does not have a coefficient for race that conforms to the NKF-ASN Task Force Recommendations. Performed By: #### 4 6124 ####[facility] [address] [id number] Wojciech Oneal M.D. [id number] HCO3 (Bld) [Moles/Vol] 21 mmol/L Normal 21-32 [facility] Comment on above: Order Comment: [facility] has implemented the eGFR calculation approach that does not have a coefficient for race that conforms to the NKF-ASN Task Force Recommendations. Performed By: #### 4 6124 ####[facility] [address] [id number] Wojciech Oneal M.D. [id number] Potassium [Moles/Vol] 3.7 mmol/L Normal 3.5-5.1 [facility] Comment on above: Order Comment: [facility] has implemented the eGFR calculation approach that does not have a coefficient for race that conforms to the NKF-ASN Task Force Recommendations. Performed By: #### 4 6124 ####[facility] [address] [id number] Wojciech Oneal M.D. [id number] Sodium [Moles/Vol] 144 mmol/L Normal 135-145 [facility] Comment on above: Order Comment: [facility] has implemented the eGFR calculation approach that does not have a coefficient for race that conforms to the NKF-ASN Task Force Recommendations. Performed By: #### 4 6124 ####[facility] [address] [id number] Wojciech Oneal M.D. [id number] Urea nitrogen [Mass/Vol] 11 mg/dL Normal 8-25 [facility] Comment on above: Order Comment: [facility] has implemented the eGFR calculation approach that does not have a coefficient for race that conforms to the NKF-ASN Task Force Recommendations. Performed By: #### 4 6124 ####[facility] [address] [address] Wojciech Oneal M.D. [id number] Urea nitrogen/Creatinine [Mass ratio] 10.5 mg/mg Normal 10.0-20.0 [facility] Comment on above: Order Comment: [facility] has implemented the eGFR calculation approach that does not have a coefficient for race that conforms to the NKF-ASN Task Force Recommendations. Performed By: #### 4 6124 ####[facility] [address] [id number] Wojciech Oneal M.D. [id number] CBCon 02-05-2025 AUTO NRBC 0.0 % Normal [facility] Comment on above: Performed By: #### 4 5218 ####[facility] [address] [id number] Wojciech Oneal M.D. [id number] AUTO NRBC ABS COUNT 0.00 K/mcL Normal 0.00-0.00 [facility] Comment on above: Performed By: #### 4 5218 ####[facility] [address] [id number] Wojciech Oneal M.D. [id number] Erythrocyte distribution width (RBC) [Ratio] 15.0 % High 11.6-14.8 [facility] Comment on above: Performed By: #### 4 5218 ####[facility] [address] [id number] Wojciech Oneal M.D. [id number] Hematocrit (Bld) [Volume fraction] 23.9 % Low 41.0-53.0 [facility] Comment on above: Performed By: #### 4 5218 ####[facility] [address] [address] Wojciech Oneal M.D. [id number] Hemoglobin (Bld) [Mass/Vol] 7.3 g/dL Low 13.5-17.5 [facility] Comment on above: Performed By: #### 4 5218 ####[facility] [address] [address] Wojciech Oneal M.D. [id number] MCH (RBC) [Entitic mass] 29.4 pg Normal 26.0-34.0 [facility] Comment on above: Performed By: #### 4 5218 ####[facility] [address] [address] Wojciech Oneal M.D. [id number] MCV (RBC) [Entitic vol] 96.4 fL Normal 80.0-100.0 [facility] Comment on above: Performed By: #### 4 5218 ####[facility] [address] [address] Wojciech Oneal M.D. [id number] MEAN CORPUSCULAR HEMOGLOBIN CONC 30.5 g/dL Low 31.0-37.0 [facility] Comment on above: Performed By: #### 4 5218 ####[facility] [address] [address] Wojciech Oneal M.D. [id number] Platelet mean volume (Bld) [Entitic vol] 9.1 fL Low 9.4-12.4 [facility] Comment on above: Performed By: #### 4 5218 ####[facility] [address] [address] Wojciech Oneal M.D. [id number] Platelets (Bld) [#/Vol] 367 10*3/uL Normal 150-400 [facility] Comment on above: Performed By: #### 4 5218 ####[facility] [address] [address] Wojciech Oneal M.D. [id number] RBC (Bld) [#/Vol] 2.48 10*6/uL Low 4.50-5.90 [facility] Comment on above: Performed By: #### 4 5218 ####[facility] [address], [place] [address] Wojciech Oneal M.D. [id number] WBC (Bld) [#/Vol] 7.51 10*3/uL Normal 4.50-11.00 [facility] Comment on above: Performed By: #### 4 5218 ####[facility] [address], [place] [address] Wojciech Oneal M.D. [id number] MAGNESIUM LEVELon 02-05-2025 Magnesium [Mass/Vol] 2.0 mg/dL Normal 1.6-2.4 [facility] Comment on above: Performed By: #### 4 6109 ####[facility] [address], [place] [address] Wojciech Oneal M.D. [id number] PHOSPHORUSon 02-05-2025 Phosphate [Mass/Vol] 2.9 mg/dL Normal 2.3-3.7 [facility] Comment on above: Performed By: #### 4 6299 ####[facility] [address], [place] [address] Wojciech Oneal M.D. [id number] POTASSIUM LEVELon 02-05-2025 Potassium [Moles/Vol] 3.8 mmol/L Normal 3.5-5.1 [facility] Comment on above: Performed By: #### 4 6351 ####[facility] [address], [place] [address] Wojciech Oneal M.D. [id number] Potassium [Moles/Vol] 3.7 mmol/L Normal 3.5-5.1 [facility] Comment on above: Performed By: #### 4 6351 ####[facility] [address], [place] [address] Wojciech Oneal M.D. [id number] BASIC METABOLIC PANELon 01-13 Anion gap [Moles/Vol] 11 mmol/L Normal 10-20 [facility] Comment on above: Order Comment: [facility] has implemented the eGFR calculation approach that does not have a coefficient for race that conforms to the NKF-ASN Task Force Recommendations. Performed By: #### 4 6124 ####[facility] [address] [id number] Wojciech Oneal M.D. [id number] Calcium [Mass/Vol] 7.2 mg/dL Low 8.4-10.2 [facility] Comment on above: Order Comment: [facility] has implemented the eGFR calculation approach that does not have a coefficient for race that conforms to the NKF-ASN Task Force Recommendations. Performed By: #### 4 6124 ####[facility] [address] [id number] Wojciech Oneal M.D. [id number] Chloride [Moles/Vol] 116 mmol/L High 98-108 [facility] Comment on above: Order Comment: [facility] has implemented the eGFR calculation approach that does not have a coefficient for race that conforms to the NKF-ASN Task Force Recommendations. Performed By: #### 4 6124 ####[facility] [address] [address] Wojciech Oneal M.D. [id number] Creatinine [Mass/Vol] 0.98 mg/dL Normal 0.80-1.30 [facility] Comment on above: Order Comment: [facility] has implemented the eGFR calculation approach that does not have a coefficient for race that conforms to the NKF-ASN Task Force Recommendations. Performed By: #### 4 6124 ####[facility] [address] [id number] Wojciech Oneal M.D. [id number] EGFR 82 mL/min/1.73 m2 Normal >=60 [facility] Comment on above: Order Comment: [facility] has implemented the eGFR calculation approach that does not have a coefficient for race that conforms to the NKF-ASN Task Force Recommendations. Result Comment: Chelsea mated GFR was calculated using the 2020 CKD-EPI creatinine equation. Performed By: #### 4 6124 ####[facility] [address] [id number] Wojciech Oneal M.D. [id number] Glucose [Mass/Vol] 98 mg/dL Normal 65-99 [facility] Comment on above: Order Comment: [facility] has implemented the eGFR calculation approach that does not have a coefficient for race that conforms to the NKF-ASN Task Force Recommendations. Performed By: #### 4 6124 ####[facility] [address] [id number] Wojciech Oneal M.D. [id number] HCO3 (Bld) [Moles/Vol] 21 mmol/L Normal 21-32 [facility] Comment on above: Order Comment: [facility] has implemented the eGFR calculation approach that does not have a coefficient for race that conforms to the NKF-ASN Task Force Recommendations. Performed By: #### 4 6124 ####[facility] [address] [address] Wojciech Oneal M.D. [id number] Potassium [Moles/Vol] 3.8 mmol/L Normal 3.5-5.1 [facility] Comment on above: Order Comment: [facility] has implemented the eGFR calculation approach that does not have a coefficient for race that conforms to the NKF-ASN Task Force Recommendations. Performed By: #### 4 6124 ####[facility] [address] [address] Wojciech Oneal M.D. [id number] Sodium [Moles/Vol] 144 mmol/L Normal 135-145 [facility] Comment on above: Order Comment: [facility] has implemented the eGFR calculation approach that does not have a coefficient for race that conforms to the NKF-ASN Task Force Recommendations. Performed By: #### 4 6124 ####[facility] [address] [id number] Wojciech Oneal M.D. [id number] Urea nitrogen [Mass/Vol] 11 mg/dL Normal 8-25 [facility] Comment on above: Order Comment: [facility] has implemented the eGFR calculation approach that does not have a coefficient for race that conforms to the NKF-ASN Task Force Recommendations. Performed By: #### 4 6124 ####[facility] [address] [address] Wojciech Oneal M.D. [id number] Urea nitrogen/Creatinine [Mass ratio] 11.2 mg/mg Normal 10.0-20.0 [facility] Comment on above: Order Comment: [facility] has implemented the eGFR calculation approach that does not have a coefficient for race that conforms to the NKF-ASN Task Force Recommendations. Performed By: #### 4 6124 ####[facility] [address] [address] Wojciech Oneal M.D. [id number] CBCon 02-04-2025 AUTO NRBC 0.0 % Normal [facility] Comment on above: Performed By: #### 4 5218 ####[facility] [address] [address] Wojciech Oneal M.D. [id number] AUTO NRBC ABS COUNT 0.00 K/mcL Normal 0.00-0.00 [facility] Comment on above: Performed By: #### 4 5218 ####[facility] [address] [address] Wojciech Oneal M.D. [id number] Erythrocyte distribution width (RBC) [Ratio] 15.1 % High 11.6-14.8 [facility] Comment on above: Performed By: #### 4 5218 ####[facility] [address] [id number] Wojciech Oneal M.D. [id number] Hematocrit (Bld) [Volume fraction] 23.2 % Low 41.0-53.0 [facility] Comment on above: Performed By: #### 4 5218 ####[facility] [address] [address] Wojciech Oneal M.D. [id number] Hemoglobin (Bld) [Mass/Vol] 7.1 g/dL Low 13.5-17.5 [facility] Comment on above: Performed By: #### 4 5218 ####[facility] [address] [address] Wojciech Oneal M.D. [id number] MCH (RBC) [Entitic mass] 29.2 pg Normal 26.0-34.0 [facility] Comment on above: Performed By: #### 4 5218 ####[facility] [address], [place] [address] Wojciech Oneal M.D. [id number] MCV (RBC) [Entitic vol] 95.5 fL Normal 80.0-100.0 [facility] Comment on above: Performed By: #### 4 5218 ####[facility] [address] [id number] Wojciech Oneal M.D. [id number] MEAN CORPUSCULAR HEMOGLOBIN CONC 30.6 g/dL Low 31.0-37.0 [facility] Comment on above: Performed By: #### 4 5218 ####[facility] [address] [id number] Wojciech Oneal M.D. [id number] Platelet mean volume (Bld) [Entitic vol] 8.6 fL Low 9.4-12.4 [facility] Comment on above: Performed By: #### 4 5218 ####[facility] [address] [address] Wojciech Oneal M.D. [id number] Platelets (Bld) [#/Vol] 317 10*3/uL Normal 150-400 [facility] Comment on above: Performed By: #### 4 5218 ####[facility] [address] [id number] Wojciech Oneal M.D. [id number] RBC (Bld) [#/Vol] 2.43 10*6/uL Low 4.50-5.90 [facility] Comment on above: Performed By: #### 4 5218 ####[facility] [address] [address] Wojciech Oneal M.D. [id number] WBC (Bld) [#/Vol] 8.26 10*3/uL Normal 4.50-11.00 [facility] Comment on above: Performed By: #### 4 5218 ####[facility] [address] [id number] Wojciech Onela M.D. [id number] MAGNESIUM LEVELon 02-04-2025 Magnesium [Mass/Vol] 1.9 mg/dL Normal 1.6-2.4 [facility] Comment on above: Performed By: #### 4 6109 ####[facility] [address], [place] [address] Wojciech Oneal M.D. [id number] OP NOTEon 02-04-2025 OP NOTE Normal [facility] PHOSPHORUSon 02-04-2025 Phosphate [Mass/Vol] 2.4 mg/dL Normal 2.3-3.7 [facility] Comment on above: Performed By: #### 4 6299 ####[facility] [address] [id number] Wojciech Oneal M.D. [id number] TYPE AND SCREENon 02-04-2025 TYPE AND SCREEN ABORH: O Positive AB SCREEN: Negative EXPIRATION DATE: 02/07/2025 23:59 EST [facility] Comment on above: Performed By: #### 4 6619 ####[facility] [address] [address] Radha Kelsey MD [id number] [facility] BASIC METABOLIC PANELon 01-13 Anion gap [Moles/Vol] 16 mmol/L Normal 10-20 [facility] Comment on above: Order Comment: [facility] has implemented the eGFR calculation approach that does not have a coefficient for race that conforms to the NKF-ASN Task Force Recommendations. Performed By: #### 4 6124 ####[facility] [address], [place] [address] Wojciech Oneal M.D. [id number] Calcium [Mass/Vol] 7.1 mg/dL Low 8.4-10.2 [facility] Comment on above: Order Comment: [facility] has implemented the eGFR calculation approach that does not have a coefficient for race that conforms to the NKF-ASN Task Force Recommendations. Performed By: #### 4 6124 ####[facility] [address] [id number] Wojciech Oneal M.D. [id number] Chloride [Moles/Vol] 114 mmol/L High 98-108 [facility] Comment on above: Order Comment: [facility] has implemented the eGFR calculation approach that does not have a coefficient for race that conforms to the NKF-ASN Task Force Recommendations. Performed By: #### 4 6124 ####[facility] [address], [place] [address] Wojciech Oneal M.D. [id number] Creatinine [Mass/Vol] 0.94 mg/dL Normal 0.80-1.30 [facility] Comment on above: Order Comment: [facility] has implemented the eGFR calculation approach that does not have a coefficient for race that conforms to the NKF-ASN Task Force Recommendations. Performed By: #### 4 6124 ####[facility] [address], [place] [address] Wojciech Oneal M.D. [id number] EGFR 87 mL/min/1.73 m2 Normal >=60 [facility] Comment on above: Order Comment: [facility] has implemented the eGFR calculation approach that does not have a coefficient for race that conforms to the NKF-ASN Task Force Recommendations. Result Comment: Chelsea mated GFR was calculated using the 2020 CKD-EPI creatinine equation. Performed By: #### 4 6124 ####[facility] [address] [id number] Wojciech Oneal M.D. [id number] Glucose [Mass/Vol] 90 mg/dL Normal 65-99 [facility] Comment on above: Order Comment: [facility] has implemented the eGFR calculation approach that does not have a coefficient for race that conforms to the NKF-ASN Task Force Recommendations. Performed By: #### 4 6124 ####[facility] [address] [id number] Wojciech Oneal M.D. [id number] HCO3 (Bld) [Moles/Vol] 19 mmol/L Low 21-32 [facility] Comment on above: Order Comment: [facility] has implemented the eGFR calculation approach that does not have a coefficient for race that conforms to the NKF-ASN Task Force Recommendations. Performed By: #### 4 6124 ####[facility] [address], [place] [address] Wojciech Oneal M.D. [id number] Potassium [Moles/Vol] 3.7 mmol/L Normal 3.5-5.1 [facility] Comment on above: Order Comment: [facility] has implemented the eGFR calculation approach that does not have a coefficient for race that conforms to the NKF-ASN Task Force Recommendations. Performed By: #### 4 6124 ####[facility] [address] [address] Wojciech Oneal M.D. [id number] Sodium [Moles/Vol] 145 mmol/L Normal 135-145 [facility] Comment on above: Order Comment: [facility] has implemented the eGFR calculation approach that does not have a coefficient for race that conforms to the NKF-ASN Task Force Recommendations. Performed By: #### 4 6124 ####[facility] [address] [id number] Wojciech Oneal M.D. [id number] Urea nitrogen [Mass/Vol] 11 mg/dL Normal 8-25 [facility] Comment on above: Order Comment: [facility] has implemented the eGFR calculation approach that does not have a coefficient for race that conforms to the NKF-ASN Task Force Recommendations. Performed By: #### 4 6124 ####[facility] [address] [id number] Wojciech Oneal M.D. [id number] Urea nitrogen/Creatinine [Mass ratio] 11.7 mg/mg Normal 10.0-20.0 [facility] Comment on above: Order Comment: [facility] has implemented the eGFR calculation approach that does not have a coefficient for race that conforms to the NKF-ASN Task Force Recommendations. Performed By: #### 4 6124 ####[facility] [address], [place] [address] Wojciech Oneal M.D. [id number] CALCIUM, IONIZEDon CALCIUM IONIZED 4.5 mg/dL Normal 4.5-5.3 [facility] Comment on above: Performed By: #### 4 5190 ####[facility] [address], [place] [address] Wojciech Oneal M.D. [id number] CBCon 02-03-2025 AUTO NRBC 0.0 % Normal [facility] Comment on above: Performed By: #### 4 5218 ####[facility] [address] [address] Wojciech Oneal M.D. [id number] AUTO NRBC ABS COUNT 0.00 K/mcL Normal 0.00-0.00 [facility] Comment on above: Performed By: #### 4 5218 ####[facility] [address] [address] Wojciech Oneal M.D. [id number] Erythrocyte distribution width (RBC) [Ratio] 15.2 % High 11.6-14.8 [facility] Comment on above: Performed By: #### 4 5218 ####[facility] [address] [address] Wojciech Oneal M.D. [id number] Hematocrit (Bld) [Volume fraction] 24.2 % Low 41.0-53.0 [facility] Comment on above: Performed By: #### 4 5218 ####[facility] [address] [address] Wojciech Oneal M.D. [id number] Hemoglobin (Bld) [Mass/Vol] 7.4 g/dL Low 13.5-17.5 [facility] Comment on above: Performed By: #### 4 5218 ####[facility] [address] [address] Wojciech Oneal M.D. [id number] MCH (RBC) [Entitic mass] 29.2 pg Normal 26.0-34.0 [facility] Comment on above: Performed By: #### 4 5218 ####[facility] [address] [address] Wojciech Oneal M.D. [id number] MCV (RBC) [Entitic vol] 95.7 fL Normal 80.0-100.0 [facility] Comment on above: Performed By: #### 4 5218 ####[facility] [address] [address] Wojciech Oneal M.D. [id number] MEAN CORPUSCULAR HEMOGLOBIN CONC 30.6 g/dL Low 31.0-37.0 [facility] Comment on above: Performed By: #### 4 5218 ####[facility] [address], [place] [address] Wojciech Oneal M.D. [id number] Platelet mean volume (Bld) [Entitic vol] 9.2 fL Low 9.4-12.4 [facility] Comment on above: Performed By: #### 4 5218 ####[facility] [address], [place] [address] Wojciech Oneal M.D. [id number] Platelets (Bld) [#/Vol] 342 10*3/uL Normal 150-400 [facility] Comment on above: Performed By: #### 4 5218 ####[facility] LAB [address], [place] [address] Wojciech Oneal M.D. [id number] RBC (Bld) [#/Vol] 2.53 10*6/uL Low 4.50-5.90 [facility] Comment on above: Performed By: #### 4 5218 ####[facility] [address] [id number] Wojciech Oneal M.D. [id number] WBC (Bld) [#/Vol] 10.83 10*3/uL Normal 4.50-11.00 [facility] Comment on above: Performed By: #### 4 5218 ####[facility] [address] [id number] Wojciech Oneal M.D. [id number] MAGNESIUM LEVELon 02-03-2025 Magnesium [Mass/Vol] 2.1 mg/dL Normal 1.6-2.4 [facility] Comment on above: Performed By: #### 4 6109 ####[facility] [address] [id number] Wojciech Oneal M.D. [id number] PHOSPHORUSon 02-03-2025 Phosphate [Mass/Vol] 2.4 mg/dL Normal 2.3-3.7 [facility] Comment on above: Performed By: #### 4 6299 ####[facility] [address] [id number] Wojciech Oneal M.D. [id number] POTASSIUM LEVELon 02-03-2025 Potassium [Moles/Vol] 3.6 mmol/L Normal 3.5-5.1 [facility] Comment on above: Performed By: #### 4 6351 ####[facility] [address], [place] [address] Wojciech Oneal M.D. [id number] Potassium [Moles/Vol] 3.7 mmol/L Normal 3.5-5.1 [facility] Comment on above: Performed By: #### 4 6351 ####[facility] [address], [place] [address] Wojciech Oneal M.D. [id number] Potassium [Moles/Vol] 3.6 mmol/L Normal 3.5-5.1 [facility] Comment on above: Performed By: #### 4 6351 ####[facility] [address], [place] [address] Wojciech Oneal M.D. [id number] XR ABDOMEN /KUB/FLAT PLATE/1 VIEWon 02-03-2025 XR ABDOMEN /KUB/FLAT PLATE/1 VIEW Normal [facility] Comment on above: Order Comment: Injur y/Trauma or Illness?:Injury/TraumaHow long have you had these symptoms (acute/chronic)?:AcuteReason for exam?:Abdominal distention, vomitingHistory of cancer?:unkSurgeries, chemotherapy, or radiation?:unkType of Exam?:Subsequent/Follow-upMechanism of injury?:Abdominal distention, vomiting BASIC METABOLIC PANELon 01-13 Anion gap [Moles/Vol] 12 mmol/L Normal 10-20 [facility] Comment on above: Order Comment: [facility] has implemented the eGFR calculation approach that does not have a coefficient for race that conforms to the NKF-ASN Task Force Recommendations. Performed By: #### 4 6124 ####[facility] [address], [place] [address] Wojciech Oneal M.D. [id number] Calcium [Mass/Vol] 6.9 mg/dL Low 8.4-10.2 [facility] Comment on above: Order Comment: [facility] has implemented the eGFR calculation approach that does not have a coefficient for race that conforms to the NKF-ASN Task Force Recommendations. Performed By: #### 4 6124 ####[facility] [address] [id number] Wojciech Oneal M.D. [id number] Chloride [Moles/Vol] 113 mmol/L High 98-108 [facility] Comment on above: Order Comment: [facility] has implemented the eGFR calculation approach that does not have a coefficient for race that conforms to the NKF-ASN Task Force Recommendations. Performed By: #### 4 6124 ####[facility] [address] [address] Wojciech Oneal M.D. [id number] Creatinine [Mass/Vol] 0.97 mg/dL Normal 0.80-1.30 [facility] Comment on above: Order Comment: [facility] has implemented the eGFR calculation approach that does not have a coefficient for race that conforms to the NKF-ASN Task Force Recommendations. Performed By: #### 4 6124 ####[facility] [address] [id number] Wojciech Oneal M.D. [id number] EGFR 83 mL/min/1.73 m2 Normal >=60 [facility] Comment on above: Order Comment: [facility] has implemented the eGFR calculation approach that does not have a coefficient for race that conforms to the NKF-ASN Task Force Recommendations. Result Comment: Chelsea mated GFR was calculated using the 2020 CKD-EPI creatinine equation. Performed By: #### 4 6124 ####[facility] [address] [id number] Wojciech Oneal M.D. [id number] Glucose [Mass/Vol] 108 mg/dL High 65-99 [facility] Comment on above: Order Comment: [facility] has implemented the eGFR calculation approach that does not have a coefficient for race that conforms to the NKF-ASN Task Force Recommendations. Performed By: #### 4 6124 ####[facility] [address] [id number] Wojciech Oneal M.D. [id number] HCO3 (Bld) [Moles/Vol] 23 mmol/L Normal 21-32 [facility] Comment on above: Order Comment: [facility] has implemented the eGFR calculation approach that does not have a coefficient for race that conforms to the NKF-ASN Task Force Recommendations. Performed By: #### 4 6124 ####[facility] [address] [address] Wojciech Oneal M.D. [id number] Potassium [Moles/Vol] 3.2 mmol/L Low 3.5-5.1 [facility] Comment on above: Order Comment: [facility] has implemented the eGFR calculation approach that does not have a coefficient for race that conforms to the NKF-ASN Task Force Recommendations. Performed By: #### 4 6124 ####[facility] [address] [id number] Wojciech Oneal M.D. [id number] Sodium [Moles/Vol] 145 mmol/L Normal 135-145 [facility] Comment on above: Order Comment: [facility] has implemented the eGFR calculation approach that does not have a coefficient for race that conforms to the NKF-ASN Task Force Recommendations. Performed By: #### 4 6124 ####[facility] [address] [address] Wojciech Oneal M.D. [id number] Urea nitrogen [Mass/Vol] 10 mg/dL Normal 8-25 [facility] Comment on above: Order Comment: [facility] has implemented the eGFR calculation approach that does not have a coefficient for race that conforms to the NKF-ASN Task Force Recommendations. Performed By: #### 4 6124 ####[facility] [address] [id number] Wojciech Oneal M.D. [id number] Urea nitrogen/Creatinine [Mass ratio] 10.3 mg/mg Normal 10.0-20.0 [facility] Comment on above: Order Comment: [facility] has implemented the eGFR calculation approach that does not have a coefficient for race that conforms to the NKF-ASN Task Force Recommendations. Performed By: #### 4 6124 ####[facility] [address] [id number] Wojciech Oneal M.D. [id number] CALCIUM, IONIZEDon 09-22-202 5 CALCIUM IONIZED 4.6 mg/dL Normal 4.5-5.3 [facility] Comment on above: Performed By: #### 4 5190 ####[facility] [address] [address] Wojciech Oneal M.D. [id number] CALCIUM IONIZED 4.2 mg/dL Low 4.5-5.3 [facility] Comment on above: Performed By: #### 4 5190 ####[facility] [address] [address] Wojciech Oneal M.D. [id number] CBCon 02-02-2025 AUTO NRBC 0.0 % Normal [facility] Comment on above: Performed By: #### 4 5218 ####[facility] [address] [address] Wojciech Oneal M.D. [id number] AUTO NRBC ABS COUNT 0.00 K/mcL Normal 0.00-0.00 [facility] Comment on above: Performed By: #### 4 5218 ####[facility] [address] [address] Wojciech Oneal M.D. [id number] Erythrocyte distribution width (RBC) [Ratio] 15.2 % High 11.6-14.8 [facility] Comment on above: Performed By: #### 4 5218 ####[facility] [address] [address] Wojciech Oneal M.D. [id number] Hematocrit (Bld) [Volume fraction] 24.1 % Low 41.0-53.0 [facility] Comment on above: Performed By: #### 4 5218 ####[facility] [address] [id number] Wojciech Oneal M.D. [id number] Hemoglobin (Bld) [Mass/Vol] 7.4 g/dL Low 13.5-17.5 [facility] Comment on above: Performed By: #### 4 5218 ####[facility] [address] [address] Wojciech Oneal M.D. [id number] MCH (RBC) [Entitic mass] 29.6 pg Normal 26.0-34.0 [facility] Comment on above: Performed By: #### 4 5218 ####[facility] [address] [id number] Wojciech Oneal M.D. [id number] MCV (RBC) [Entitic vol] 96.4 fL Normal 80.0-100.0 [facility] Comment on above: Performed By: #### 4 5218 ####[facility] [address] [id number] Wojciech Oneal M.D. [id number] MEAN CORPUSCULAR HEMOGLOBIN CONC 30.7 g/dL Low 31.0-37.0 [facility] Comment on above: Performed By: #### 4 5218 ####[facility] [address] [address] Wojciech Oneal M.D. [id number] Platelet mean volume (Bld) [Entitic vol] 8.9 fL Low 9.4-12.4 [facility] Comment on above: Performed By: #### 4 5218 ####[facility] [address] [address] Wojciech Oneal M.D. [id number] Platelets (Bld) [#/Vol] 350 10*3/uL Normal 150-400 [facility] Comment on above: Performed By: #### 4 5218 ####[facility] [address] [address] Wojciech Oneal M.D. [id number] RBC (Bld) [#/Vol] 2.50 10*6/uL Low 4.50-5.90 [facility] Comment on above: Performed By: #### 4 5218 ####[facility] [address] [id number] Wojciech Oneal M.D. [id number] WBC (Bld) [#/Vol] 13.04 10*3/uL High 4.50-11.00 [facility] Comment on above: Performed By: #### 4 5218 ####[facility] [address] [address] Wojciech Oneal M.D. [id number] MAGNESIUM LEVELon 02-02-2025 Magnesium [Mass/Vol] 2.2 mg/dL Normal 1.6-2.4 [facility] Comment on above: Performed By: #### 4 6109 ####[facility] [address] [address] Wojciech Oneal M.D. [id number] Magnesium [Mass/Vol] 1.9 mg/dL Normal 1.6-2.4 [facility] Comment on above: Performed By: #### 4 6109 ####[facility] [address] [address] Wojciech Oneal M.D. [id number] PHOSPHORUSon 02-02-2025 Phosphate [Mass/Vol] 2.6 mg/dL Normal 2.3-3.7 [facility] Comment on above: Performed By: #### 4 6299 ####[facility] [address] [address] Wojciech Oneal M.D. [id number] POC GLUCOSE - [facility] 025 Glucose [Mass/Vol] 120 mg/dL [address] Comment on above: Performed By: #### 4 6932 ####[facility] [address] [place] [address] [id number] [facility] Glucose [Mass/Vol] 118 mg/dL [address] Comment on above: Performed By: #### 4 6932 ####[facility] [address] [place] [address] [id number] [facility] Glucose [Mass/Vol] 136 mg/dL [address] Comment on above: Performed By: #### 4 6932 ####[facility] [address] [place] [address] [id number] [facility] Glucose [Mass/Vol] 138 mg/dL [address] Comment on above: Performed By: #### 4 6932 ####[facility] [address] [address] [id number] [facility] POTASSIUM LEVELon 02-02-2025 Potassium [Moles/Vol] 3.2 mmol/L Low 3.5-5.1 [facility] Comment on above: Performed By: #### 4 6351 ####[facility] [address], [place] [address] Wojciech Oneal M.D. [id number] XR ABDOMEN /KUB/FLAT PLATE/1 VIEWon 02-02-2025 XR ABDOMEN /KUB/FLAT PLATE/1 [facility] Comment on above: Order Comment: Injur y/Trauma or Illness?:Illness/OtherHow long have you had these symptoms (acute/chronic)?:AcuteReason for exam?:Abdominal distention s/p decompressive colonoscopyHistory of cancer?:unkSurgeries, chemotherapy, or radiation?:unkType of Exam?:InitialAdditional signs and symptoms?:unk BASIC METABOLIC PANELon 01-13 Anion gap [Moles/Vol] 13 mmol/L Normal 10-20 [facility] Comment on above: Order Comment: [facility] has implemented the eGFR calculation approach that does not have a coefficient for race that conforms to the NKF-ASN Task Force Recommendations. Performed By: #### 4 6124 ####[facility] [address], [place] [address] Wojciech Oneal M.D. [id number] Calcium [Mass/Vol] 7.1 mg/dL Low 8.4-10.2 [facility] Comment on above: Order Comment: [facility] has implemented the eGFR calculation approach that does not have a coefficient for race that conforms to the NKF-ASN Task Force Recommendations. Performed By: #### 4 6124 ####[facility] [address], [place] [address] Wojciech Oneal M.D. [id number] Chloride [Moles/Vol] 114 mmol/L High 98-108 [facility] Comment on above: Order Comment: [facility] has implemented the eGFR calculation approach that does not have a coefficient for race that conforms to the NKF-ASN Task Force Recommendations. Performed By: #### 4 6124 ####[facility] [address], [place] [address] Wojciech Oneal M.D. [id number] Creatinine [Mass/Vol] 0.87 mg/dL Normal 0.80-1.30 [facility] Comment on above: Order Comment: [facility] has implemented the eGFR calculation approach that does not have a coefficient for race that conforms to the NKF-ASN Task Force Recommendations. Performed By: #### 4 6124 ####[facility] [address] [id number] Wojciech Oneal M.D. [id number] EGFR 92 mL/min/1.73 m2 Normal >=60 [facility] Comment on above: Order Comment: [facility] has implemented the eGFR calculation approach that does not have a coefficient for race that conforms to the NKF-ASN Task Force Recommendations. Result Comment: Chelsea mated GFR was calculated using the 2020 CKD-EPI creatinine equation. Performed By: #### 4 6124 ####[facility] [address] [id number] Wojciech Oneal M.D. [id number] Glucose [Mass/Vol] 108 mg/dL High 65-99 [facility] Comment on above: Order Comment: [facility] has implemented the eGFR calculation approach that does not have a coefficient for race that conforms to the NKF-ASN Task Force Recommendations. Performed By: #### 4 6124 ####[facility] [address] [id number] Wojciech Oneal M.D. [id number] HCO3 (Bld) [Moles/Vol] 22 mmol/L Normal 21-32 [facility] Comment on above: Order Comment: [facility] has implemented the eGFR calculation approach that does not have a coefficient for race that conforms to the NKF-ASN Task Force Recommendations. Performed By: #### 4 6124 ####[facility] [address] [id number] Wojciech Oneal M.D. [id number] Potassium [Moles/Vol] 2.9 mmol/L Low 3.5-5.1 [facility] Comment on above: Order Comment: [facility] has implemented the eGFR calculation approach that does not have a coefficient for race that conforms to the NKF-ASN Task Force Recommendations. Performed By: #### 4 6124 ####[facility] [address] [id number] Wojciech Oneal M.D. [id number] Sodium [Moles/Vol] 146 mmol/L High 135-145 [facility] Comment on above: Order Comment: [facility] has implemented the eGFR calculation approach that does not have a coefficient for race that conforms to the NKF-ASN Task Force Recommendations. Performed By: #### 4 6124 ####[facility] [address], [place] [address] Wojciech Oneal M.D. [id number] Urea nitrogen [Mass/Vol] 12 mg/dL Normal 8-25 [facility] Comment on above: Order Comment: [facility] has implemented the eGFR calculation approach that does not have a coefficient for race that conforms to the NKF-ASN Task Force Recommendations. Performed By: #### 4 6124 ####[facility] [address] [id number] Wojciech Oneal M.D. [id number] Urea nitrogen/Creatinine [Mass ratio] 13.8 mg/mg Normal 10.0-20.0 [facility] Comment on above: Order Comment: [facility] has implemented the eGFR calculation approach that does not have a coefficient for race that conforms to the NKF-ASN Task Force Recommendations. Performed By: #### 4 6124 ####[facility] [address] [id number] Wojciech Oneal M.D. [id number] CALCIUM, IONIZEDon 5 CALCIUM IONIZED 4.2 mg/dL Low 4.5-5.3 [facility] Comment on above: Performed By: #### 4 5190 ####[facility] [address] [id number] Wojciech Oneal M.D. [id number] CBCon 02-01-2025 AUTO NRBC 0.0 % Normal [facility] Comment on above: Performed By: #### 4 5218 ####[facility] [address], [place] [address] Wojciech Oneal M.D. [id number] AUTO NRBC ABS COUNT 0.00 K/mcL Normal 0.00-0.00 [facility] Comment on above: Performed By: #### 4 5218 ####[facility] [address] [address] Wojciech Oneal M.D. [id number] Erythrocyte distribution width (RBC) [Ratio] 14.9 % High 11.6-14.8 [facility] Comment on above: Performed By: #### 4 5218 ####[facility] [address] [address] Wojciech Oneal M.D. [id number] Hematocrit (Bld) [Volume fraction] 23.6 % Low 41.0-53.0 [facility] Comment on above: Performed By: #### 4 5218 ####[facility] [address] [address] Wojciech Oneal M.D. [id number] Hemoglobin (Bld) [Mass/Vol] 7.5 g/dL Low 13.5-17.5 [facility] Comment on above: Performed By: #### 4 5218 ####[facility] [address] [address] Wojciech Oneal M.D. [id number] MCH (RBC) [Entitic mass] 29.8 pg Normal 26.0-34.0 [facility] Comment on above: Performed By: #### 4 5218 ####[facility] [address] [address] Wojciech Oneal M.D. [id number] MCV (RBC) [Entitic vol] 93.7 fL Normal 80.0-100.0 [facility] Comment on above: Performed By: #### 4 5218 ####[facility] [address] [address] Wojciech Oneal M.D. [id number] MEAN CORPUSCULAR HEMOGLOBIN CONC 31.8 g/dL Normal 31.0-37.0 [facility] Comment on above: Performed By: #### 4 5218 ####[facility] [address] [address] Wojciech Oneal M.D. [id number] Platelet mean volume (Bld) [Entitic vol] 9.1 fL Low 9.4-12.4 [facility] Comment on above: Performed By: #### 4 5218 ####[facility] [address], [place] [address] Wojciech Oneal M.D. [id number] Platelets (Bld) [#/Vol] 330 10*3/uL Normal 150-400 [facility] Comment on above: Performed By: #### 4 5218 ####[facility] [address], [place] [address] Wojciech Oneal M.D. [id number] RBC (Bld) [#/Vol] 2.52 10*6/uL Low 4.50-5.90 [facility] Comment on above: Performed By: #### 4 5218 ####[facility] [address] [id number] Wojciech Oneal M.D. [id number] WBC (Bld) [#/Vol] 16.02 10*3/uL High 4.50-11.00 [facility] Comment on above: Performed By: #### 4 5218 ####[facility] [address] [id number] Wojciech Oneal M.D. [id number] MAGNESIUM LEVELon 02-01-2025 Magnesium [Mass/Vol] 2.3 mg/dL Normal 1.6-2.4 [facility] Comment on above: Performed By: #### 4 6109 ####[facility] [address] [id number] Wojciech Oneal M.D. [id number] Magnesium [Mass/Vol] 2.1 mg/dL Normal 1.6-2.4 [facility] Comment on above: Performed By: #### 4 6109 ####[facility] [address] [id number] Wojciech Oneal M.D. [id number] PHOSPHORUSon 02-01-2025 Phosphate [Mass/Vol] 2.4 mg/dL Normal 2.3-3.7 [facility] Comment on above: Performed By: #### 4 6299 ####[facility] [address] [id number] Wojciech Oneal M.D. [id number] POTASSIUM LEVELon 02-01-2025 Potassium [Moles/Vol] 3.2 mmol/L Low 3.5-5.1 [facility] Comment on above: Performed By: #### 4 6351 ####[facility] [address], [place] [address] Wojciech Oneal M.D. [id number] PREALBUMINon 02-01-2025 Prealbumin [Mass/Vol] 4.5 mg/dL Low 20.0-40.0 [facility] Comment on above: Performed By: #### 4 6355 ####[facility] [address], [place] [address] Wojciech Oneal M.D. [id number] XR ABDOMEN /KUB/FLAT PLATE/1 VIEWon 02-01-2025 XR ABDOMEN /KUB/FLAT PLATE/1 VIEW Normal [facility] Comment on above: Order Comment: Injur y/Trauma or Illness?:Illness/OtherHow long have you had these symptoms (acute/chronic)?:AcuteReason for exam?:colonic ileusHistory of cancer?:unkSurgeries, chemotherapy, or radiation?:unkType of Exam?:InitialAdditional signs and symptoms?:na BASIC METABOLIC PANELon 01-13 Anion gap [Moles/Vol] 14 mmol/L Normal 10-20 [facility] Comment on above: Order Comment: [facility] has implemented the eGFR calculation approach that does not have a coefficient for race that conforms to the NKF-ASN Task Force Recommendations. Performed By: #### 4 6124 ####[facility] [address], [place] [address] Wojciech Oneal M.D. [id number] Calcium [Mass/Vol] 7.3 mg/dL Low 8.4-10.2 [facility] Comment on above: Order Comment: [facility] has implemented the eGFR calculation approach that does not have a coefficient for race that conforms to the NKF-ASN Task Force Recommendations. Performed By: #### 4 6124 ####[facility] [address], [place] [address] Wojciech Oneal M.D. [id number] Chloride [Moles/Vol] 117 mmol/L High 98-108 [facility] Comment on above: Order Comment: [facility] has implemented the eGFR calculation approach that does not have a coefficient for race that conforms to the NKF-ASN Task Force Recommendations. Performed By: #### 4 6124 ####[facility] [address] [id number] Wojciech Oneal M.D. [id number] Creatinine [Mass/Vol] 0.92 mg/dL Normal 0.80-1.30 [facility] Comment on above: Order Comment: [facility] has implemented the eGFR calculation approach that does not have a coefficient for race that conforms to the NKF-ASN Task Force Recommendations. Performed By: #### 4 6124 ####[facility] [address] [id number] Wojciech Oneal M.D. [id number] EGFR 89 mL/min/1.73 m2 Normal >=60 [facility] Comment on above: Order Comment: [facility] has implemented the eGFR calculation approach that does not have a coefficient for race that conforms to the NKF-ASN Task Force Recommendations. Result Comment: Chelsea mated GFR was calculated using the 2020 CKD-EPI creatinine equation. Performed By: #### 4 6124 ####[facility] [address] [id number] Wojciech Oneal M.D. [id number] Glucose [Mass/Vol] 112 mg/dL High 65-99 [facility] Comment on above: Order Comment: [facility] has implemented the eGFR calculation approach that does not have a coefficient for race that conforms to the NKF-ASN Task Force Recommendations. Performed By: #### 4 6124 ####[facility] [address] [address] Wojciech Oneal M.D. [id number] HCO3 (Bld) [Moles/Vol] 21 mmol/L Normal 21-32 [facility] Comment on above: Order Comment: [facility] has implemented the eGFR calculation approach that does not have a coefficient for race that conforms to the NKF-ASN Task Force Recommendations. Performed By: #### 4 6124 ####[facility] [address] [id number] Wojciech Oneal M.D. [id number] Potassium [Moles/Vol] 3.4 mmol/L Low 3.5-5.1 [facility] Comment on above: Order Comment: [facility] has implemented the eGFR calculation approach that does not have a coefficient for race that conforms to the NKF-ASN Task Force Recommendations. Performed By: #### 4 6124 ####[facility] [address], [place] [address] Wojciech Oneal M.D. [id number] Sodium [Moles/Vol] 149 mmol/L High 135-145 [facility] Comment on above: Order Comment: [facility] has implemented the eGFR calculation approach that does not have a coefficient for race that conforms to the NKF-ASN Task Force Recommendations. Performed By: #### 4 6124 ####[facility] [address] [address] Wojciech Oneal M.D. [id number] Urea nitrogen [Mass/Vol] 16 mg/dL Normal 8-25 [facility] Comment on above: Order Comment: [facility] has implemented the eGFR calculation approach that does not have a coefficient for race that conforms to the NKF-ASN Task Force Recommendations. Performed By: #### 4 6124 ####[facility] [address] [id number] Wojciech Oneal M.D. [id number] Urea nitrogen/Creatinine [Mass ratio] 17.4 mg/mg Normal 10.0-20.0 [facility] Comment on above: Order Comment: [facility] has implemented the eGFR calculation approach that does not have a coefficient for race that conforms to the NKF-ASN Task Force Recommendations. Performed By: #### 4 6124 ####[facility] [address], [place] [address] Wojciech Oneal M.D. [id number] CALCIUM, IONIZEDon CALCIUM IONIZED 4.5 mg/dL Normal 4.5-5.3 [facility] Comment on above: Performed By: #### 4 5190 ####[facility] [address], [place] [address] Wojciech Oneal M.D. [id number] CBCon 01-31-2025 AUTO NRBC 0.0 % Normal [facility] Comment on above: Performed By: #### 4 5218 ####[facility] [address] [address] Wojciech Oneal M.D. [id number] AUTO NRBC ABS COUNT 0.00 K/mcL Normal 0.00-0.00 [facility] Comment on above: Performed By: #### 4 5218 ####[facility] [address] [address] Wojciech Oneal M.D. [id number] Erythrocyte distribution width (RBC) [Ratio] 14.8 % Normal 11.6-14.8 [facility] Comment on above: Performed By: #### 4 5218 ####[facility] [address] [address] Wojciech Oneal M.D. [id number] Hematocrit (Bld) [Volume fraction] 25.1 % Low 41.0-53.0 [facility] Comment on above: Performed By: #### 4 5218 ####[facility] [address] [address] Wojciech Oneal M.D. [id number] Hemoglobin (Bld) [Mass/Vol] 7.8 g/dL Low 13.5-17.5 [facility] Comment on above: Performed By: #### 4 5218 ####[facility] [address] [address] Wojciech Oneal M.D. [id number] MCH (RBC) [Entitic mass] 29.2 pg Normal 26.0-34.0 [facility] Comment on above: Performed By: #### 4 5218 ####[facility] [address] [address] Wojciech Oneal M.D. [id number] MCV (RBC) [Entitic vol] 94.0 fL Normal 80.0-100.0 [facility] Comment on above: Performed By: #### 4 5218 ####[facility] [address] [address] Wojciech Oneal M.D. [id number] MEAN CORPUSCULAR HEMOGLOBIN CONC 31.1 g/dL Normal 31.0-37.0 [facility] Comment on above: Performed By: #### 4 5218 ####[facility] [address], [place] [address] Wojciech Oneal M.D. [id number] Platelet mean volume (Bld) [Entitic vol] 8.9 fL Low 9.4-12.4 [facility] Comment on above: Performed By: #### 4 5218 ####[facility] [address] [id number] Wojciech Oneal M.D. [id number] Platelets (Bld) [#/Vol] 338 10*3/uL Normal 150-400 [facility] Comment on above: Performed By: #### 4 5218 ####[facility] [address] [address] Wojciech Oneal M.D. [id number] RBC (Bld) [#/Vol] 2.67 10*6/uL Low 4.50-5.90 [facility] Comment on above: Performed By: #### 4 5218 ####[facility] [address] [address] Wojciech Oneal M.D. [id number] WBC (Bld) [#/Vol] 15.38 10*3/uL High 4.50-11.00 [facility] Comment on above: Performed By: #### 4 5218 ####[facility] [address], [place] [address] Wojciech Oneal M.D. [id number] MAGNESIUM LEVELon 01-31-2025 Magnesium [Mass/Vol] 1.9 mg/dL Normal 1.6-2.4 [facility] Comment on above: Performed By: #### 4 6109 ####[facility] [address] [id number] Wojciech Oneal M.D. [id number] PHOSPHORUSon 01-31-2025 Phosphate [Mass/Vol] 2.4 mg/dL Normal 2.3-3.7 [facility] Comment on above: Performed By: #### 4 6299 ####[facility] [address] [id number] Wojciech Oneal M.D. [id number] [facility] Glucose [Mass/Vol] 120 mg/dL [address] Comment on above: Performed By: #### 4 6932 ####[facility] [address] [place] [address] [id number] [facility] Glucose [Mass/Vol] 110 mg/dL [address] Comment on above: Performed By: #### 4 6932 ####[facility] [address] [place] [address] [id number] [facility] Glucose [Mass/Vol] 116 mg/dL [address] Comment on above: Performed By: #### 4 6932 ####[facility] [address] [place] [address] [id number] [facility] Glucose [Mass/Vol] 113 mg/dL [address] Comment on above: Performed By: #### 4 6932 ####[facility] [address] [place] [address] [id number] [facility] Glucose [Mass/Vol] 133 mg/dL [address] Comment on above: Performed By: #### 4 6932 ####[facility] [address] [place] [address] [id number] [facility] Glucose [Mass/Vol] 112 mg/dL [address] Comment on above: Performed By: #### 4 6932 ####[facility] [address] [place] [address] [id number] [facility] Glucose [Mass/Vol] 111 mg/dL [address] Comment on above: Performed By: #### 4 6932 ####[facility] [address] [address] [id number] [facility] POTASSIUM LEVELon 01-31-2025 Potassium [Moles/Vol] 3.1 mmol/L Low 3.5-5.1 [facility] Comment on above: Performed By: #### 4 6351 ####[facility] [address] [place] [address] Wojciech Oneal M.D. [id number] BASIC METABOLIC PANELon 01-12 Anion gap [Moles/Vol] 21 mmol/L High 10-20 [facility] Comment on above: Order Comment: [facility] has implemented the eGFR calculation approach that does not have a coefficient for race that conforms to the NKF-ASN Task Force Recommendations. Performed By: #### 4 6124 ####[facility] [address], [place] [address] Wojciech Oneal M.D. [id number] Calcium [Mass/Vol] 7.8 mg/dL Low 8.4-10.2 [facility] Comment on above: Order Comment: [facility] has implemented the eGFR calculation approach that does not have a coefficient for race that conforms to the NKF-ASN Task Force Recommendations. Performed By: #### 4 6124 ####[facility] [address], [place] [address] Wojciech Oneal M.D. [id number] Chloride [Moles/Vol] 108 mmol/L Normal 98-108 [facility] Comment on above: Order Comment: [facility] has implemented the eGFR calculation approach that does not have a coefficient for race that conforms to the NKF-ASN Task Force Recommendations. Performed By: #### 4 6124 ####[facility] [address], [place] [address] Wojciech Oneal M.D. [id number] Creatinine [Mass/Vol] 0.96 mg/dL Normal 0.80-1.30 [facility] Comment on above: Order Comment: [facility] has implemented the eGFR calculation approach that does not have a coefficient for race that conforms to the NKF-ASN Task Force Recommendations. Performed By: #### 4 6124 ####[facility] [address], [place] [address] Wojciech Oneal M.D. [id number] EGFR 85 mL/min/1.73 m2 Normal >=60 [facility] Comment on above: Order Comment: [facility] has implemented the eGFR calculation approach that does not have a coefficient for race that conforms to the NKF-ASN Task Force Recommendations. Result Comment: Chelsea mated GFR was calculated using the 2020 CKD-EPI creatinine equation. Performed By: #### 4 6124 ####[facility] [address] [id number] Wojciech Oneal M.D. [id number] Glucose [Mass/Vol] 75 mg/dL Normal 65-99 [facility] Comment on above: Order Comment: [facility] has implemented the eGFR calculation approach that does not have a coefficient for race that conforms to the NKF-ASN Task Force Recommendations. Performed By: #### 4 6124 ####[facility] [address] [address] Wojciech Oneal M.D. [id number] HCO3 (Bld) [Moles/Vol] 19 mmol/L Low 21-32 [facility] Comment on above: Order Comment: [facility] has implemented the eGFR calculation approach that does not have a coefficient for race that conforms to the NKF-ASN Task Force Recommendations. Performed By: #### 4 6124 ####[facility] [address] [id number] Wojciech Oneal M.D. [id number] Potassium [Moles/Vol] 3.2 mmol/L Low 3.5-5.1 [facility] Comment on above: Order Comment: [facility] has implemented the eGFR calculation approach that does not have a coefficient for race that conforms to the NKF-ASN Task Force Recommendations. Performed By: #### 4 6124 ####[facility] [address] [id number] Wojciech Oneal M.D. [id number] Sodium [Moles/Vol] 145 mmol/L Normal 135-145 [facility] Comment on above: Order Comment: [facility] has implemented the eGFR calculation approach that does not have a coefficient for race that conforms to the NKF-ASN Task Force Recommendations. Performed By: #### 4 6124 ####[facility] [address] [id number] Wojciech Oneal M.D. [id number] Urea nitrogen [Mass/Vol] 19 mg/dL Normal 8-25 [facility] Comment on above: Order Comment: [facility] has implemented the eGFR calculation approach that does not have a coefficient for race that conforms to the NKF-ASN Task Force Recommendations. Performed By: #### 4 6124 ####[facility] [address] [id number] Wojciech Oneal M.D. [id number] Urea nitrogen/Creatinine [Mass ratio] 19.8 mg/mg Normal 10.0-20.0 [facility] Comment on above: Order Comment: [facility] has implemented the eGFR calculation approach that does not have a coefficient for race that conforms to the NKF-ASN Task Force Recommendations. Performed By: #### 4 6124 ####[facility] [address] [address] Wojciech Oneal M.D. [id number] CALCIUM, IONIZEDon CALCIUM IONIZED 4.5 mg/dL Normal 4.5-5.3 [facility] Comment on above: Performed By: #### 4 5190 ####[facility] [address] [address] Wojciech Oneal M.D. [id number] CBCon 01-30-2025 AUTO NRBC 0.0 % Normal [facility] Comment on above: Performed By: #### 4 5218 ####[facility] [address] [id number] Wojciech Oneal M.D. [id number] AUTO NRBC ABS COUNT 0.00 K/mcL Normal 0.00-0.00 [facility] Comment on above: Performed By: #### 4 5218 ####[facility] [address] [id number] Wojciech Oneal M.D. [id number] Erythrocyte distribution width (RBC) [Ratio] 14.9 % High 11.6-14.8 [facility] Comment on above: Performed By: #### 4 5218 ####[facility] [address] [id number] Wojciech Oneal M.D. [id number] Hematocrit (Bld) [Volume fraction] 30.0 % Low 41.0-53.0 [facility] Comment on above: Performed By: #### 4 5218 ####[facility] [address] [address] Wojciech Oneal M.D. [id number] Hemoglobin (Bld) [Mass/Vol] 9.0 g/dL Low 13.5-17.5 [facility] Comment on above: Performed By: #### 4 5218 ####[facility] [address] [address] Wojciech Oneal M.D. [id number] MCH (RBC) [Entitic mass] 29.4 pg Normal 26.0-34.0 [facility] Comment on above: Performed By: #### 4 5218 ####[facility] [address] [address] Wojciech Oneal M.D. [id number] MCV (RBC) [Entitic vol] 98.0 fL Normal 80.0-100.0 [facility] Comment on above: Performed By: #### 4 5218 ####[facility] [address] [address] Wojciech Oneal M.D. [id number] MEAN CORPUSCULAR HEMOGLOBIN CONC 30.0 g/dL Low 31.0-37.0 [facility] Comment on above: Performed By: #### 4 5218 ####[facility] [address] [address] Wojciech Oneal M.D. [id number] Platelet mean volume (Bld) [Entitic vol] 9.0 fL Low 9.4-12.4 [facility] Comment on above: Performed By: #### 4 5218 ####[facility] [address] [address] Wojciech Oneal M.D. [id number] Platelets (Bld) [#/Vol] 398 10*3/uL Normal 150-400 [facility] Comment on above: Performed By: #### 4 5218 ####[facility] [address] [address] Wojciech Oneal M.D. [id number] RBC (Bld) [#/Vol] 3.06 10*6/uL Low 4.50-5.90 [facility] Comment on above: Performed By: #### 4 5218 ####[facility] [address] [address] Wojciech Oneal M.D. [id number] WBC (Bld) [#/Vol] 17.39 10*3/uL High 4.50-11.00 [facility] Comment on above: Performed By: #### 4 5218 ####[facility] [address] [address] Wojciech Oneal M.D. [id number] CONSULTon 01-30-2025 CONSULT [facility] MAGNESIUM LEVELon 01-30-2025 Magnesium [Mass/Vol] 2.2 mg/dL Normal 1.6-2.4 [facility] Comment on above: Performed By: #### 4 6109 ####[facility] [address] [address] Wojciech Oneal M.D. [id number] PHOSPHORUSon 01-30-2025 Phosphate [Mass/Vol] 2.8 mg/dL Normal 2.3-3.7 [facility] Comment on above: Performed By: #### 4 6299 ####[facility] [address] [address] Wojciech Oneal M.D. [id number] POC GLUCOSE - [facility] 025 Glucose [Mass/Vol] 101 mg/dL High [address] [place] [address] Comment on above: Performed By: #### 4 6932 ####[facility] [address] [address] [id number] [facility] Glucose [Mass/Vol] 81 mg/dL Normal [address] [place] [address] Comment on above: Performed By: #### 4 6932 ####[facility] [address] [address] [id number] [facility] Glucose [Mass/Vol] 95 mg/dL Normal [address] [place] [address] Comment on above: Performed By: #### 4 6932 ####[facility] [address] [address] [id number] [facility] Glucose [Mass/Vol] 89 mg/dL Normal [address] [place] [address] Comment on above: Performed By: #### 4 6932 ####[facility] [address] [address] [id number] [facility] XR ABDOMEN /KUB/FLAT PLATE/1 VIEWon 01-30-2025 XR ABDOMEN /KUB/FLAT PLATE/1 VIEW [facility] Comment on above: Order Comment: Injur y/Trauma or Illness?:Injury/TraumaHow long have you had these symptoms (acute/chronic)?:AcuteReason for exam?:OG/NG placementHistory of cancer?:unkSurgeries, chemotherapy, or radiation?:unkType of Exam?:Subsequent/Follow-upMechanism of injury?:OG/NG placement XR ABDOMEN /KUB/FLAT PLATE/1 VIEW [facility] Comment on above: Order Comment: Injur y/Trauma or Illness?:Illness/OtherHow long have you had these symptoms (acute/chronic)?:UnknownReason for exam?:tube inHistory of cancer?:unkSurgeries, chemotherapy, or radiation?:unkType of Exam?:UnknownAdditional signs and symptoms?:na XR ABDOMEN 2 VIEWSon 025 XR ABDOMEN 2 VIEWS [facility] Comment on above: Order Comment: Injur y/Trauma or Illness?:Illness/OtherHow long have you had these symptoms (acute/chronic)?:UnknownReason for exam?:IleusHistory of cancer?:unkSurgeries, chemotherapy, or radiation?:unkType of Exam?:UnknownAdditional signs and symptoms?:Ileus BASIC METABOLIC PANELon 01-12 Anion gap [Moles/Vol] 17 mmol/L Normal 10-20 [facility] Comment on above: Order Comment: [facility] has implemented the eGFR calculation approach that does not have a coefficient for race that conforms to the NKF-ASN Task Force Recommendations. Performed By: #### 4 6124 ####[facility] [address], [place] [address] Wojciech Oneal M.D. [id number] Calcium [Mass/Vol] 8.2 mg/dL Low 8.4-10.2 [facility] Comment on above: Order Comment: [facility] has implemented the eGFR calculation approach that does not have a coefficient for race that conforms to the NKF-ASN Task Force Recommendations. Performed By: #### 4 6124 ####[facility] [address], [place] [address] Wojciech Oneal M.D. [id number] Chloride [Moles/Vol] 112 mmol/L High 98-108 [facility] Comment on above: Order Comment: [facility] has implemented the eGFR calculation approach that does not have a coefficient for race that conforms to the NKF-ASN Task Force Recommendations. Performed By: #### 4 6124 ####[facility] [address] [address] Wojciech Oneal M.D. [id number] Creatinine [Mass/Vol] 1.01 mg/dL Normal 0.80-1.30 [facility] Comment on above: Order Comment: [facility] has implemented the eGFR calculation approach that does not have a coefficient for race that conforms to the NKF-ASN Task Force Recommendations. Performed By: #### 4 6124 ####[facility] [address] [id number] Wojciech Oneal M.D. [id number] EGFR 80 mL/min/1.73 m2 Normal >=60 [facility] Comment on above: Order Comment: [facility] has implemented the eGFR calculation approach that does not have a coefficient for race that conforms to the NKF-ASN Task Force Recommendations. Result Comment: Chelsea mated GFR was calculated using the 2020 CKD-EPI creatinine equation. Performed By: #### 4 6124 ####[facility] [address] [id number] Wojciech Oneal M.D. [id number] Glucose [Mass/Vol] 90 mg/dL Normal 65-99 [facility] Comment on above: Order Comment: [facility] has implemented the eGFR calculation approach that does not have a coefficient for race that conforms to the NKF-ASN Task Force Recommendations. Performed By: #### 4 6124 ####[facility] [address] [id number] Wojciech Oneal M.D. [id number] HCO3 (Bld) [Moles/Vol] 23 mmol/L Normal 21-32 [facility] Comment on above: Order Comment: [facility] has implemented the eGFR calculation approach that does not have a coefficient for race that conforms to the NKF-ASN Task Force Recommendations. Performed By: #### 4 6124 ####[facility] [address] [id number] Wojciech Oneal M.D. [id number] Potassium [Moles/Vol] 3.3 mmol/L Low 3.5-5.1 [facility] Comment on above: Order Comment: [facility] has implemented the eGFR calculation approach that does not have a coefficient for race that conforms to the NKF-ASN Task Force Recommendations. Performed By: #### 4 6124 ####[facility] [address], [place] [address] Wojciech Oneal M.D. [id number] Sodium [Moles/Vol] 149 mmol/L High 135-145 [facility] Comment on above: Order Comment: [facility] has implemented the eGFR calculation approach that does not have a coefficient for race that conforms to the NKF-ASN Task Force Recommendations. Performed By: #### 4 6124 ####[facility] [address] [id number] Wojciech Oneal M.D. [id number] Urea nitrogen [Mass/Vol] 18 mg/dL Normal 8-25 [facility] Comment on above: Order Comment: [facility] has implemented the eGFR calculation approach that does not have a coefficient for race that conforms to the NKF-ASN Task Force Recommendations. Performed By: #### 4 6124 ####[facility] [address] [id number] Wojciech Oneal M.D. [id number] Urea nitrogen/Creatinine [Mass ratio] 17.8 mg/mg Normal 10.0-20.0 [facility] Comment on above: Order Comment: [facility] has implemented the eGFR calculation approach that does not have a coefficient for race that conforms to the NKF-ASN Task Force Recommendations. Performed By: #### 4 6124 ####[facility] [address], [place] [address] Wojciech Oneal M.D. [id number] CALCIUM, IONIZEDon 5 CALCIUM IONIZED 4.6 mg/dL Normal 4.5-5.3 [facility] Comment on above: Performed By: #### 4 5190 ####[facility] [address] [address] Wojciech Oneal M.D. [id number] CBCon 01-29-2025 AUTO NRBC 0.0 % Normal [facility] Comment on above: Performed By: #### 4 5218 ####[facility] [address] [address] Wojciech Oneal M.D. [id number] AUTO NRBC ABS COUNT 0.00 K/mcL Normal 0.00-0.00 [facility] Comment on above: Performed By: #### 4 5218 ####[facility] [address] [address] Wojciech Oneal M.D. [id number] Erythrocyte distribution width (RBC) [Ratio] 14.6 % Normal 11.6-14.8 [facility] Comment on above: Performed By: #### 4 5218 ####[facility] [address] [address] Wojciech Oneal M.D. [id number] Hematocrit (Bld) [Volume fraction] 26.8 % Low 41.0-53.0 [facility] Comment on above: Performed By: #### 4 5218 ####[facility] [address] [address] Wojciech Oneal M.D. [id number] Hemoglobin (Bld) [Mass/Vol] 8.5 g/dL Low 13.5-17.5 [facility] Comment on above: Performed By: #### 4 5218 ####[facility] [address] [address] Wojciech Oneal M.D. [id number] MCH (RBC) [Entitic mass] 30.2 pg Normal 26.0-34.0 [facility] Comment on above: Performed By: #### 4 5218 ####[facility] [address] [address] Wojciech Oneal M.D. [id number] MCV (RBC) [Entitic vol] 95.4 fL Normal 80.0-100.0 [facility] Comment on above: Performed By: #### 4 5218 ####[facility] [address], [place] [address] Wojciech Oneal M.D. [id number] MEAN CORPUSCULAR HEMOGLOBIN CONC 31.7 g/dL Normal 31.0-37.0 [facility] Comment on above: Performed By: #### 4 5218 ####[facility] [address], [place] [address] Wojciech Oneal M.D. [id number] Platelet mean volume (Bld) [Entitic vol] 9.0 fL Low 9.4-12.4 [facility] Comment on above: Performed By: #### 4 5218 ####[facility] [facility] [address] [id number] Wojciech Oneal M.D. [id number] Platelets (Bld) [#/Vol] 367 10*3/uL Normal 150-400 [facility] Comment on above: Performed By: #### 4 5218 ####[facility] [address] [id number] Wojciech Oneal M.D. [id number] RBC (Bld) [#/Vol] 2.81 10*6/uL Low 4.50-5.90 [facility] Comment on above: Performed By: #### 4 5218 ####[facility] [address] [id number] Wojciech Oneal M.D. [id number] WBC (Bld) [#/Vol] 18.10 10*3/uL High 4.50-11.00 [facility] Comment on above: Performed By: #### 4 5218 ####[facility] [address], [place] [address] Wojciech Oneal M.D. [id number] MAGNESIUM LEVELon 01-29-2025 Magnesium [Mass/Vol] 2.3 mg/dL Normal 1.6-2.4 [facility] Comment on above: Performed By: #### 4 6109 ####[facility] [address] [id number] Wojciech Oneal M.D. [id number] Magnesium [Mass/Vol] 2.2 mg/dL Normal 1.6-2.4 [facility] Comment on above: Performed By: #### 4 6109 ####[facility] [address] [address] Wojciech Oneal M.D. [id number] PHOSPHORUSon 01-29-2025 Phosphate [Mass/Vol] 2.5 mg/dL Normal 2.3-3.7 [facility] Comment on above: Performed By: #### 4 6299 ####[facility] [address] [address] Wojciech Oneal M.D. [id number] Phosphate [Mass/Vol] 2.2 mg/dL Low 2.3-3.7 [facility] Comment on above: Performed By: #### 4 6299 ####[facility] [address] [address] Wojciech Oneal M.D. [id number] POC GLUCOSE - [facility] 025 Glucose [Mass/Vol] 96 mg/dL Normal 65-99 [facility] Comment on above: Performed By: #### 4 6932 ####[facility] [address] [address] [id number] [facility] Glucose [Mass/Vol] 99 mg/dL Normal [address] [place] [address] Comment on above: Performed By: #### 4 6932 ####[facility] [address] [address] [id number] [facility] Glucose [Mass/Vol] 108 mg/dL High [address] [place] [address] Comment on above: Performed By: #### 4 6932 ####[facility] [address] [address] [id number] [facility] POTASSIUM LEVELon 01-29-2025 Potassium [Moles/Vol] 3.6 mmol/L Normal 3.5-5.1 [facility] Comment on above: Performed By: #### 4 6351 ####[facility] [address] [address] Wojciech Oneal M.D. [id number] XR ABDOMEN /KUB/FLAT PLATE/1 VIEWon 01-29-2025 XR ABDOMEN /KUB/FLAT PLATE/1 VIEW [facility] Comment on above: Order Comment: Injur y/Trauma or Illness?:Illness/OtherHow long have you had these symptoms (acute/chronic)?:AcuteReason for exam?:leusHistory of cancer?:unkSurgeries, chemotherapy, or radiation?:unkType of Exam?:InitialAdditional signs and symptoms?:history of hypertension, heart failure, lymphedema, presented on 01/22/2025 with necrotizing infection. [facility] [facility] Surg[facility]her for medical management. BASIC METABOLIC PANELon 01-12 Anion gap [Moles/Vol] 15 mmol/L Normal 10-20 [facility] Comment on above: Order Comment: [facility] has implemented the eGFR calculation approach that does not have a coefficient for race that conforms to the NKF-ASN Task Force Recommendations. Performed By: #### 4 6124 ####[facility] [address] [address] Wojciech Oneal M.D. [id number] Calcium [Mass/Vol] 7.9 mg/dL Low 8.4-10.2 [facility] Comment on above: Order Comment: [facility] has implemented the eGFR calculation approach that does not have a coefficient for race that conforms to the NKF-ASN Task Force Recommendations. Performed By: #### 4 6124 ####[facility] [address] [id number] Wojciech Oneal M.D. [id number] Chloride [Moles/Vol] 111 mmol/L High 98-108 [facility] Comment on above: Order Comment: [facility] has implemented the eGFR calculation approach that does not have a coefficient for race that conforms to the NKF-ASN Task Force Recommendations. Performed By: #### 4 6183 ####[facility] [address] [id number] Wojciech Oneal M.D. [id number] Creatinine [Mass/Vol] 1.01 mg/dL Normal 0.80-1.30 [facility] Comment on above: Order Comment: [facility] has implemented the eGFR calculation approach that does not have a coefficient for race that conforms to the NKF-ASN Task Force Recommendations. Performed By: #### 4 6124 ####[facility] [address] [id number] Wojciech Oneal M.D. [id number] EGFR 80 mL/min/1.73 m2 Normal >=60 [facility] Comment on above: Order Comment: [facility] has implemented the eGFR calculation approach that does not have a coefficient for race that conforms to the NKF-ASN Task Force Recommendations. Result Comment: Chelsea mated GFR was calculated using the 2020 CKD-EPI creatinine equation. Performed By: #### 4 6124 ####[facility] [address] [id number] Wojciech Oneal M.D. [id number] Glucose [Mass/Vol] 106 mg/dL High 65-99 [facility] Comment on above: Order Comment: [facility] has implemented the eGFR calculation approach that does not have a coefficient for race that conforms to the NKF-ASN Task Force Recommendations. Performed By: #### 4 6124 ####[facility] [address] [id number] Wojciech Oneal M.D. [id number] HCO3 (Bld) [Moles/Vol] 25 mmol/L Normal 21-32 [facility] Comment on above: Order Comment: [facility] has implemented the eGFR calculation approach that does not have a coefficient for race that conforms to the NKF-ASN Task Force Recommendations. Performed By: #### 4 6124 ####[facility] [address], [place] [address] Wojciech Oneal M.D. [id number] Potassium [Moles/Vol] 3.8 mmol/L Normal 3.5-5.1 [facility] Comment on above: Order Comment: [facility] has implemented the eGFR calculation approach that does not have a coefficient for race that conforms to the NKF-ASN Task Force Recommendations. Performed By: #### 4 6124 ####[facility] [address], [place] [address] Wojciech Oneal M.D. [id number] Sodium [Moles/Vol] 147 mmol/L High 135-145 [facility] Comment on above: Order Comment: [facility] has implemented the eGFR calculation approach that does not have a coefficient for race that conforms to the NKF-ASN Task Force Recommendations. Performed By: #### 4 6124 ####[facility] [address], [place] [address] Wojciech Oneal M.D. [id number] Urea nitrogen [Mass/Vol] 17 mg/dL Normal 8-25 [facility] Comment on above: Order Comment: [facility] has implemented the eGFR calculation approach that does not have a coefficient for race that conforms to the NKF-ASN Task Force Recommendations. Performed By: #### 4 6124 ####[facility] [address] [id number] Wojciech Oneal M.D. [id number] Urea nitrogen/Creatinine [Mass ratio] 16.8 mg/mg Normal 10.0-20.0 [facility] Comment on above: Order Comment: [facility] has implemented the eGFR calculation approach that does not have a coefficient for race that conforms to the NKF-ASN Task Force Recommendations. Performed By: #### 4 6124 ####[facility] [address] [id number] Wojciech Oneal M.D. [id number] CALCIUM, IONIZEDon 5 CALCIUM IONIZED 4.5 mg/dL Normal 4.5-5.3 [facility] Comment on above: Performed By: #### 4 5190 ####[facility] [address], [place] [address] Wojciech Oneal M.D. [id number] CBCon 01-28-2025 AUTO NRBC 0.0 % Normal [facility] Comment on above: Performed By: #### 4 5218 ####[facility] [address], [place] [address] Wojciech Oneal M.D. [id number] AUTO NRBC ABS COUNT 0.00 K/mcL Normal 0.00-0.00 [facility] Comment on above: Performed By: #### 4 5218 ####[facility] [address], [place] [address] Wojciech Oneal M.D. [id number] Erythrocyte distribution width (RBC) [Ratio] 14.1 % Normal 11.6-14.8 [facility] Comment on above: Performed By: #### 4 5218 ####[facility] [address] [address] Wojciech Oneal M.D. [id number] Hematocrit (Bld) [Volume fraction] 23.0 % Low 41.0-53.0 [facility] Comment on above: Performed By: #### 4 5218 ####[facility] [address] [address] Wojciech Oneal M.D. [id number] Hemoglobin (Bld) [Mass/Vol] 7.1 g/dL Low 13.5-17.5 [facility] Comment on above: Performed By: #### 4 5218 ####[facility] [address] [address] Wojciech Oneal M.D. [id number] MCH (RBC) [Entitic mass] 29.6 pg Normal 26.0-34.0 [facility] Comment on above: Performed By: #### 4 5218 ####[facility] [address] [address] Wojciech Oneal M.D. [id number] MCV (RBC) [Entitic vol] 95.8 fL Normal 80.0-100.0 [facility] Comment on above: Performed By: #### 4 5218 ####[facility] [address] [address] Wojciech Oneal M.D. [id number] MEAN CORPUSCULAR HEMOGLOBIN CONC 30.9 g/dL Low 31.0-37.0 [facility] Comment on above: Performed By: #### 4 5218 ####[facility] [address] [address] Wojciech Oneal M.D. [id number] Platelet mean volume (Bld) [Entitic vol] 9.0 fL Low 9.4-12.4 [facility] Comment on above: Performed By: #### 4 5218 ####[facility] [address] [address] Wojciech Oneal M.D. [id number] Platelets (Bld) [#/Vol] 361 10*3/uL Normal 150-400 [facility] Comment on above: Performed By: #### 4 5218 ####[facility] [address], [place] [address] Wojciech Oneal M.D. [id number] RBC (Bld) [#/Vol] 2.40 10*6/uL Low 4.50-5.90 [facility] Comment on above: Performed By: #### 4 5218 ####[facility] [address] [id number] Wojciech Oneal M.D. [id number] WBC (Bld) [#/Vol] 22.11 10*3/uL High 4.50-11.00 [facility] Comment on above: Performed By: #### 4 5218 ####[facility] [address], [place] [address] Wojciech Oneal M.D. [id number] CT ABDOMEN PELVIS WITH IV CO NTRAST ONLYon 01-28-2025 CT ABDOMEN PELVIS WITH IV CONTRAST ONLY Normal [facility] Comment on above: Order Comment: Injur y/Trauma or Illness?:Illness/OtherHow long have you had these symptoms (acute/chronic)?:AcuteReason for exam?:Abdominal pain, post-op, Bowel obstruction suspectedType of Exam?:Subsequent/Follow-upAdditional signs and symptoms?:Abdominal pain, post-op, Bowel obstruction suspected MAGNESIUM LEVELon 01-28-2025 Magnesium [Mass/Vol] 2.2 mg/dL Normal 1.6-2.4 [facility] Comment on above: Performed By: #### 4 6109 ####[facility] [address] [id number] Wojciceh Oneal M.D. [id number] PHOSPHORUSon 01-28-2025 Phosphate [Mass/Vol] 2.4 mg/dL Normal 2.3-3.7 [facility] Comment on above: Performed By: #### 4 6299 ####[facility] [address], [place] [address] Wojciech Oneal M.D. [id number] [facility] Glucose [Mass/Vol] 104 mg/dL High 65-99 [facility] Comment on above: Performed By: #### 4 6932 ####[facility] [address] [address] [id number] [facility] Glucose [Mass/Vol] 91 mg/dL Normal 65- [facility] Comment on above: Performed By: #### 4 6932 ####[facility] [address] [address] [id number] [facility] Glucose [Mass/Vol] 91 mg/dL Normal 65- [facility] Comment on above: Performed By: #### 4 6932 ####[facility] [address] [address] [id number] [facility] Glucose [Mass/Vol] 100 mg/dL High - [facility] Comment on above: Performed By: #### 4 6932 ####[facility] [address] [address] [id number] [facility] XR ABDOMEN /KUB/FLAT PLATE/1 VIEWon 01-28-2025 XR ABDOMEN /KUB/FLAT PLATE/1 VIEW Normal [facility] Comment on above: Order Comment: Injur y/Trauma or Illness?:Illness/OtherHow long have you had these symptoms (acute/chronic)?:AcuteReason for exam?:abdominal distentionHistory of cancer?:unkSurgeries, chemotherapy, or radiation?:unkType of Exam?:InitialAdditional signs and symptoms?:n/a BASIC METABOLIC PANELon 01-12 Anion gap [Moles/Vol] 14 mmol/L Normal 10-20 [facility] Comment on above: Order Comment: [facility] has implemented the eGFR calculation approach that does not have a coefficient for race that conforms to the NKF-ASN Task Force Recommendations. Performed By: #### 4 6124 ####[facility] [address] [address] Wojciech Oneal M.D. [id number] Calcium [Mass/Vol] 7.8 mg/dL Low 8.4-10.2 [facility] Comment on above: Order Comment: [facility] has implemented the eGFR calculation approach that does not have a coefficient for race that conforms to the NKF-ASN Task Force Recommendations. Performed By: #### 4 6124 ####[facility] [address], [place] [address] Wojciech Oneal M.D. [id number] Chloride [Moles/Vol] 107 mmol/L Normal 98-108 [facility] Comment on above: Order Comment: [facility] has implemented the eGFR calculation approach that does not have a coefficient for race that conforms to the NKF-ASN Task Force Recommendations. Performed By: #### 4 6124 ####[facility] [address] [address] Wojciech Oneal M.D. [id number] Creatinine [Mass/Vol] 0.94 mg/dL Normal 0.80-1.30 [facility] Comment on above: Order Comment: [facility] has implemented the eGFR calculation approach that does not have a coefficient for race that conforms to the NKF-ASN Task Force Recommendations. Performed By: #### 4 6124 ####[facility] [address] [id number] Wojciech Oneal M.D. [id number] EGFR 87 mL/min/1.73 m2 Normal >=60 [facility] Comment on above: Order Comment: [facility] has implemented the eGFR calculation approach that does not have a coefficient for race that conforms to the NKF-ASN Task Force Recommendations. Result Comment: Chelsea mated GFR was calculated using the 2020 CKD-EPI creatinine equation. Performed By: #### 4 6124 ####[facility] [address] [address] Wojciech Oneal M.D. [id number] Glucose [Mass/Vol] 105 mg/dL High 65-99 [facility] Comment on above: Order Comment: [facility] has implemented the eGFR calculation approach that does not have a coefficient for race that conforms to the NKF-ASN Task Force Recommendations. Performed By: #### 4 6124 ####[facility] [address], [place] [address] Wojciech Oneal M.D. [id number] HCO3 (Bld) [Moles/Vol] 23 mmol/L Normal 21-32 [facility] Comment on above: Order Comment: [facility] has implemented the eGFR calculation approach that does not have a coefficient for race that conforms to the NKF-ASN Task Force Recommendations. Performed By: #### 4 6124 ####[facility] [address] [address] Wojciech Oneal M.D. [id number] Potassium [Moles/Vol] 4.0 mmol/L Normal 3.5-5.1 [facility] Comment on above: Order Comment: [facility] has implemented the eGFR calculation approach that does not have a coefficient for race that conforms to the NKF-ASN Task Force Recommendations. Performed By: #### 4 6124 ####[facility] [address] [address] Wojciech Oneal M.D. [id number] Sodium [Moles/Vol] 140 mmol/L Normal 135-145 [facility] Comment on above: Order Comment: [facility] has implemented the eGFR calculation approach that does not have a coefficient for race that conforms to the NKF-ASN Task Force Recommendations. Performed By: #### 4 6124 ####[facility] [address] [address] Wojciech Oneal M.D. [id number] Urea nitrogen [Mass/Vol] 19 mg/dL Normal 8-25 [facility] Comment on above: Order Comment: [facility] has implemented the eGFR calculation approach that does not have a coefficient for race that conforms to the NKF-ASN Task Force Recommendations. Performed By: #### 4 6124 ####[facility] [address] [address] Wojciech Oneal M.D. [id number] Urea nitrogen/Creatinine [Mass ratio] 20.2 mg/mg High 10.0-20.0 [facility] Comment on above: Order Comment: [facility] has implemented the eGFR calculation approach that does not have a coefficient for race that conforms to the NKF-ASN Task Force Recommendations. Performed By: #### 4 6124 ####[facility] [address] [id number] Wojciech Oneal M.D. [id number] CALCIUM, IONIZEDon 09-16-202 5 CALCIUM IONIZED 4.5 mg/dL Normal 4.5-5.3 [facility] Comment on above: Performed By: #### 4 5190 ####[facility] [address] [address] Wojciech Oneal M.D. [id number] CBCon 01-27-2025 AUTO NRBC 0.1 % Normal [facility] Comment on above: Performed By: #### 4 5218 ####[facility] [address] [address] Wojciech Oneal M.D. [id number] AUTO NRBC ABS COUNT 0.02 K/mcL High 0.00-0.00 [facility] Comment on above: Performed By: #### 4 5218 ####[facility] [address] [address] Wojciech Oneal M.D. [id number] Erythrocyte distribution width (RBC) [Ratio] 14.0 % Normal 11.6-14.8 [facility] Comment on above: Performed By: #### 4 5218 ####[facility] [address] [address] Wojciech Oneal M.D. [id number] Hematocrit (Bld) [Volume fraction] 27.8 % Low 41.0-53.0 [facility] Comment on above: Performed By: #### 4 5218 ####[facility] [address] [address] Wojciech Oneal M.D. [id number] Hemoglobin (Bld) [Mass/Vol] 8.8 g/dL Low 13.5-17.5 [facility] Comment on above: Performed By: #### 4 5218 ####[facility] [address] [address] Wojciech Oneal M.D. [id number] MCH (RBC) [Entitic mass] 29.3 pg Normal 26.0-34.0 [facility] Comment on above: Performed By: #### 4 5218 ####[facility] [address] [address] Wojciech Oneal M.D. [id number] MCV (RBC) [Entitic vol] 92.7 fL Normal 80.0-100.0 [facility] Comment on above: Performed By: #### 4 5218 ####[facility] [address] [id number] Wojciech Oneal M.D. [id number] MEAN CORPUSCULAR HEMOGLOBIN CONC 31.7 g/dL Normal 31.0-37.0 [facility] Comment on above: Performed By: #### 4 5218 ####[facility] [address] [address] Wojciech Oneal M.D. [id number] Platelet mean volume (Bld) [Entitic vol] 9.0 fL Low 9.4-12.4 [facility] Comment on above: Performed By: #### 4 5218 ####[facility] [address] [id number] Wojciech Oneal M.D. [id number] Platelets (Bld) [#/Vol] 317 10*3/uL Normal 150-400 [facility] Comment on above: Performed By: #### 4 5218 ####[facility] [address] [address] Wojciech Oneal M.D. [id number] RBC (Bld) [#/Vol] 3.00 10*6/uL Low 4.50-5.90 [facility] Comment on above: Performed By: #### 4 5218 ####[facility] [address] [id number] Wojciech Oneal M.D. [id number] WBC (Bld) [#/Vol] 20.82 10*3/uL High 4.50-11.00 [facility] Comment on above: Performed By: #### 4 5218 ####[facility] [address] [id number] Wojciech Oneal M.D. [id number] CONSULTon 01-27-2025 CONSULT [facility] MAGNESIUM LEVELon 01-27-2025 Magnesium [Mass/Vol] 2.2 mg/dL Normal 1.6-2.4 [facility] Comment on above: Performed By: #### 4 6109 ####[facility] [address] [address] Wojciech Oneal M.D. [id number] PHOSPHORUSon 01-27-2025 Phosphate [Mass/Vol] 2.3 mg/dL Normal 2.3-3.7 [facility] Comment on above: Performed By: #### 4 6299 ####[facility] [address] [address] Wojciech Oneal M.D. [id number] POC GLUCOSE - [facility] 025 Glucose [Mass/Vol] 86 mg/dL Normal [address] [place] [address] Comment on above: Performed By: #### 4 6932 ####[facility] [address] [address] [id number] [facility] Glucose [Mass/Vol] 100 mg/dL [address] Comment on above: Performed By: #### 4 6932 ####[facility] [address] [place] [address] [id number] [facility] Glucose [Mass/Vol] 97 mg/dL Normal [address] [place] [address] Comment on above: Performed By: #### 4 6932 ####[facility] [address] [place] [address] [id number] [facility] Glucose [Mass/Vol] 111 mg/dL High [address] [place] [address] Comment on above: Performed By: #### 4 6932 ####[facility] [address] [address] [id number] [facility] Glucose [Mass/Vol] 98 mg/dL Normal [address] [place] [address] Comment on above: Performed By: #### 4 6932 ####[facility] [address] [address] [id number] [facility] XR ABDOMEN /KUB/FLAT PLATE/1 VIEWon 01-27-2025 XR ABDOMEN /KUB/FLAT PLATE/1 VIEW [facility] Comment on above: Order Comment: Injur y/Trauma or Illness?:Illness/OtherHow long have you had these symptoms (acute/chronic)?:AcuteReason for exam?:Abdominal distentionHistory of cancer?:unkSurgeries, chemotherapy, or radiation?:unkType of Exam?:InitialAdditional signs and symptoms?:Abdominal distention BASIC METABOLIC PANELon 01-12 Anion gap [Moles/Vol] 14 mmol/L Normal 10-20 [facility] Comment on above: Order Comment: [facility] has implemented the eGFR calculation approach that does not have a coefficient for race that conforms to the NKF-ASN Task Force Recommendations. Performed By: #### 4 6124 ####[facility] [address] [id number] Wojciech Oneal M.D. [id number] Calcium [Mass/Vol] 7.6 mg/dL Low 8.4-10.2 [facility] Comment on above: Order Comment: [facility] has implemented the eGFR calculation approach that does not have a coefficient for race that conforms to the NKF-ASN Task Force Recommendations. Performed By: #### 4 6124 ####[facility] [address] [id number] Wojciech Oneal M.D. [id number] Chloride [Moles/Vol] 108 mmol/L Normal 98-108 [facility] Comment on above: Order Comment: [facility] has implemented the eGFR calculation approach that does not have a coefficient for race that conforms to the NKF-ASN Task Force Recommendations. Performed By: #### 4 6124 ####[facility] [address] [id number] Wojciech Oneal M.D. [id number] Creatinine [Mass/Vol] 1.03 mg/dL Normal 0.80-1.30 [facility] Comment on above: Order Comment: [facility] has implemented the eGFR calculation approach that does not have a coefficient for race that conforms to the NKF-ASN Task Force Recommendations. Performed By: #### 4 6124 ####[facility] [facility] [place] [facility] [address] [id number] Wojciech Oneal M.D. [id number] EGFR 78 mL/min/1.73 m2 Normal >=60 [facility] Comment on above: Order Comment: [facility] has implemented the eGFR calculation approach that does not have a coefficient for race that conforms to the NKF-ASN Task Force Recommendations. Result Comment: Chelsea mated GFR was calculated using the 2020 CKD-EPI creatinine equation. Performed By: #### 4 6124 ####[facility] [place] [address] [id number] Wojciech Oneal M.D. [id number] Glucose [Mass/Vol] 113 mg/dL High 65-99 [facility] Comment on above: Order Comment: [facility] has implemented the eGFR calculation approach that does not have a coefficient for race that conforms to the NKF-ASN Task Force Recommendations. Performed By: #### 4 6124 ####[facility] [address] [address] Wojciech Oneal M.D. [id number] HCO3 (Bld) [Moles/Vol] 23 mmol/L Normal 21-32 [facility] Comment on above: Order Comment: [facility] has implemented the eGFR calculation approach that does not have a coefficient for race that conforms to the NKF-ASN Task Force Recommendations. Performed By: #### 4 6124 ####[facility] [address] [id number] Wojciech Oneal M.D. [id number] Potassium [Moles/Vol] 4.1 mmol/L Normal 3.5-5.1 [facility] Comment on above: Order Comment: [facility] has implemented the eGFR calculation approach that does not have a coefficient for race that conforms to the NKF-ASN Task Force Recommendations. Performed By: #### 4 6124 ####[facility] [address] [id number] Wojciech Oneal M.D. [id number] Sodium [Moles/Vol] 141 mmol/L Normal 135-145 [facility] Comment on above: Order Comment: [facility] has implemented the eGFR calculation approach that does not have a coefficient for race that conforms to the NKF-ASN Task Force Recommendations. Performed By: #### 4 6124 ####[facility] [address] [id number] Wojciech Oneal M.D. [id number] Urea nitrogen [Mass/Vol] 25 mg/dL Normal 8-25 [facility] Comment on above: Order Comment: [facility] has implemented the eGFR calculation approach that does not have a coefficient for race that conforms to the NKF-ASN Task Force Recommendations. Performed By: #### 4 6124 ####[facility] [address] [id number] Wojciech Oneal M.D. [id number] Urea nitrogen/Creatinine [Mass ratio] 24.3 mg/mg High 10.0-20.0 [facility] Comment on above: Order Comment: [facility] has implemented the eGFR calculation approach that does not have a coefficient for race that conforms to the NKF-ASN Task Force Recommendations. Performed By: #### 4 6124 ####[facility] [address] [id number] Wojciech Oneal M.D. [id number] CALCIUM, IONIZEDon CALCIUM IONIZED 4.4 mg/dL Low 4.5-5.3 [facility] Comment on above: Performed By: #### 4 5190 ####[facility] [address] [id number] Wojciech Oneal M.D. [id number] CBCon 01-26-2025 AUTO NRBC 0.0 % Normal [facility] Comment on above: Performed By: #### 4 5218 ####[facility] [address] [id number] Wojciech Oneal M.D. [id number] AUTO NRBC ABS COUNT 0.00 K/mcL Normal 0.00-0.00 [facility] Comment on above: Performed By: #### 4 5218 ####[facility] [address] [id number] Wojciech Oneal M.D. [id number] Erythrocyte distribution width (RBC) [Ratio] 13.6 % Normal 11.6-14.8 [facility] Comment on above: Performed By: #### 4 5218 ####[facility] [address] [id number] Wojciech Oneal M.D. [id number] Hematocrit (Bld) [Volume fraction] 25.3 % Low 41.0-53.0 [facility] Comment on above: Performed By: #### 4 5218 ####[facility] [address] [address] Wojciech Oneal M.D. [id number] Hemoglobin (Bld) [Mass/Vol] 8.1 g/dL Low 13.5-17.5 [facility] Comment on above: Performed By: #### 4 5218 ####[facility] [address] [address] Wojciech Oneal M.D. [id number] MCH (RBC) [Entitic mass] 29.5 pg Normal 26.0-34.0 [facility] Comment on above: Performed By: #### 4 5218 ####[facility] [address] [address] Wojciech Oneal M.D. [id number] MCV (RBC) [Entitic vol] 92.0 fL Normal 80.0-100.0 [facility] Comment on above: Performed By: #### 4 5218 ####[facility] [address] [address] Wojciech Oneal M.D. [id number] MEAN CORPUSCULAR HEMOGLOBIN CONC 32.0 g/dL Normal 31.0-37.0 [facility] Comment on above: Performed By: #### 4 5218 ####[facility] [address] [id number] Wojciech Oneal M.D. [id number] Platelet mean volume (Bld) [Entitic vol] 9.0 fL Low 9.4-12.4 [facility] Comment on above: Performed By: #### 4 5218 ####[facility] [address] [address] Wojciech Oneal M.D. [id number] Platelets (Bld) [#/Vol] 285 10*3/uL Normal 150-400 [facility] Comment on above: Performed By: #### 4 5218 ####[facility] [address] [address] Wojciech Oneal M.D. [id number] RBC (Bld) [#/Vol] 2.75 10*6/uL Low 4.50-5.90 [facility] Comment on above: Performed By: #### 4 5218 ####[facility] [address] [address] Wojciech Oneal M.D. [id number] WBC (Bld) [#/Vol] 21.63 10*3/uL High 4.50-11.00 [facility] Comment on above: Performed By: #### 4 5218 ####[facility] [address] [address] Wojciech Oneal M.D. [id number] MAGNESIUM LEVELon 01-26-2025 Magnesium [Mass/Vol] 2.4 mg/dL Normal 1.6-2.4 [facility] Comment on above: Performed By: #### 4 6109 ####[facility] [address] [address] Wojciech Oneal M.D. [id number] PHOSPHORUSon 01-26-2025 Phosphate [Mass/Vol] 3.0 mg/dL Normal 2.3-3.7 [facility] Comment on above: Performed By: #### 4 6299 ####[facility] [address] [address] Wojciech Oneal M.D. [id number] POC GLUCOSE - [facility] 025 Glucose [Mass/Vol] 118 mg/dL High [address] [place] [address] Comment on above: Performed By: #### 4 6932 ####[facility] [address] [address] [id number] [facility] Glucose [Mass/Vol] 111 mg/dL [address] Comment on above: Performed By: #### 4 6932 ####[facility] [address] [address] [id number] [facility] Glucose [Mass/Vol] 104 mg/dL High [address] [place] [address] Comment on above: Performed By: #### 4 6932 ####[facility] [address] [address] [id number] [facility] Glucose [Mass/Vol] 93 mg/dL Normal [address] [place] [address] Comment on above: Performed By: #### 4 6932 ####[facility] [address] [address] [id number] [facility] Glucose [Mass/Vol] 93 mg/dL Normal 65-99 [facility] Comment on above: Performed By: #### 4 6932 ####[facility] [place] [facility] [address] [address] [id number] [facility] [place] BASIC METABOLIC PANELon 01-12 Anion gap [Moles/Vol] 13 mmol/L Normal 10-20 [facility] Comment on above: Order Comment: [facility] has implemented the eGFR calculation approach that does not have a coefficient for race that conforms to the NKF-ASN Task Force Recommendations. Performed By: #### 4 6124 ####[facility] [address] [address] Wojciech Oneal M.D. [id number] Calcium [Mass/Vol] 6.8 mg/dL Low 8.4-10.2 [facility] Comment on above: Order Comment: [facility] has implemented the eGFR calculation approach that does not have a coefficient for race that conforms to the NKF-ASN Task Force Recommendations. Performed By: #### 4 6124 ####[facility] [address] [address] Wojciech Oneal M.D. [id number] Chloride [Moles/Vol] 102 mmol/L Normal 98-108 [facility] Comment on above: Order Comment: [facility] has implemented the eGFR calculation approach that does not have a coefficient for race that conforms to the NKF-ASN Task Force Recommendations. Performed By: #### 4 6124 ####[facility] [address] [id number] Wojciech Oneal M.D. [id number] Creatinine [Mass/Vol] 1.18 mg/dL Normal 0.80-1.30 [facility] Comment on above: Order Comment: [facility] has implemented the eGFR calculation approach that does not have a coefficient for race that conforms to the NKF-ASN Task Force Recommendations. Performed By: #### 4 6124 ####[facility] [address] [address] Wojciech Oneal M.D. [id number] EGFR 66 mL/min/1.73 m2 Normal >=60 [facility] Comment on above: Order Comment: [facility] has implemented the eGFR calculation approach that does not have a coefficient for race that conforms to the NKF-ASN Task Force Recommendations. Result Comment: Chelsea mated GFR was calculated using the 2020 CKD-EPI creatinine equation. Performed By: #### 4 6124 ####[facility] [address] [id number] Wojciech Oneal M.D. [id number] Glucose [Mass/Vol] 100 mg/dL High 65-99 [facility] Comment on above: Order Comment: [facility] has implemented the eGFR calculation approach that does not have a coefficient for race that conforms to the NKF-ASN Task Force Recommendations. Performed By: #### 4 6124 ####[facility] [address] [address] Wojciech Oneal M.D. [id number] HCO3 (Bld) [Moles/Vol] 23 mmol/L Normal 21-32 [facility] Comment on above: Order Comment: [facility] has implemented the eGFR calculation approach that does not have a coefficient for race that conforms to the NKF-ASN Task Force Recommendations. Performed By: #### 4 6124 ####[facility] [address] [address] Wojciech Oneal M.D. [id number] Potassium [Moles/Vol] 3.8 mmol/L Normal 3.5-5.1 [facility] Comment on above: Order Comment: [facility] has implemented the eGFR calculation approach that does not have a coefficient for race that conforms to the NKF-ASN Task Force Recommendations. Performed By: #### 4 6124 ####[facility] [address] [address] Wojciech Oneal M.D. [id number] Sodium [Moles/Vol] 134 mmol/L Low 135-145 [facility] Comment on above: Order Comment: [facility] has implemented the eGFR calculation approach that does not have a coefficient for race that conforms to the NKF-ASN Task Force Recommendations. Performed By: #### 4 6193 ####[facility] [address] [id number] Wojciech Oneal M.D. [id number] Urea nitrogen [Mass/Vol] 37 mg/dL High 8-25 [facility] Comment on above: Order Comment: [facility] has implemented the eGFR calculation approach that does not have a coefficient for race that conforms to the NKF-ASN Task Force Recommendations. Performed By: #### 4 6124 ####[facility] [address] [address] Wojciech Oneal M.D. [id number] Urea nitrogen/Creatinine [Mass ratio] 31.4 mg/mg High 10.0-20.0 [facility] Comment on above: Order Comment: [facility] has implemented the eGFR calculation approach that does not have a coefficient for race that conforms to the NKF-ASN Task Force Recommendations. Performed By: #### 4 6124 ####[facility] [address] [address] Wojciech Oneal M.D. [id number] CALCIUM, IONIZEDon CALCIUM IONIZED 4.4 mg/dL Low 4.5-5.3 [facility] Comment on above: Performed By: #### 4 5190 ####[facility] [address] [id number] Wojciech Oneal M.D. [id number] CALCIUM IONIZED 4.0 mg/dL Low 4.5-5.3 [facility] Comment on above: Performed By: #### 4 5190 ####[facility] [address] [address] Wojciech Oneal M.D. [id number] CBCon 01-25-2025 AUTO NRBC 0.1 % Normal [facility] Comment on above: Performed By: #### 4 5218 ####[facility] [address] [address] Wojciech Oneal M.D. [id number] AUTO NRBC ABS COUNT 0.02 K/mcL High 0.00-0.00 [facility] Comment on above: Performed By: #### 4 5218 ####[facility] [address] [address] Wojciech Oneal M.D. [id number] Erythrocyte distribution width (RBC) [Ratio] 13.2 % Normal 11.6-14.8 [facility] Comment on above: Performed By: #### 4 5218 ####[facility] [address] [address] Wojciech Oneal M.D. [id number] Hematocrit (Bld) [Volume fraction] 24.0 % Low 41.0-53.0 [facility] Comment on above: Performed By: #### 4 5218 ####[facility] [address] [address] Wojciech Oneal M.D. [id number] Hemoglobin (Bld) [Mass/Vol] 7.9 g/dL Low 13.5-17.5 [facility] Comment on above: Performed By: #### 4 5218 ####[facility] [address] [address] Wojciech Oneal M.D. [id number] MCH (RBC) [Entitic mass] 29.8 pg Normal 26.0-34.0 [facility] Comment on above: Performed By: #### 4 5218 ####[facility] [address] [address] Wojciech Oneal M.D. [id number] MCV (RBC) [Entitic vol] 90.6 fL Normal 80.0-100.0 [facility] Comment on above: Performed By: #### 4 5218 ####[facility] [address] [address] Wojciech Oneal M.D. [id number] MEAN CORPUSCULAR HEMOGLOBIN CONC 32.9 g/dL Normal 31.0-37.0 [facility] Comment on above: Performed By: #### 4 5218 ####[facility] [address] [address] Wojciech Oneal M.D. [id number] Platelet mean volume (Bld) [Entitic vol] 9.1 fL Low 9.4-12.4 [facility] Comment on above: Performed By: #### 4 5218 ####[facility] [address] [address] Wojciech Oneal M.D. [id number] Platelets (Bld) [#/Vol] 258 10*3/uL Normal 150-400 [facility] Comment on above: Performed By: #### 4 5218 ####[facility] [address] [id number] Wojciech Oneal M.D. [id number] RBC (Bld) [#/Vol] 2.65 10*6/uL Low 4.50-5.90 [facility] Comment on above: Performed By: #### 4 5218 ####[facility] [address] [address] Wojciech Oneal M.D. [id number] WBC (Bld) [#/Vol] 18.46 10*3/uL High 4.50-11.00 [facility] Comment on above: Performed By: #### 4 5218 ####[facility] [address] [address] Wojciech Oneal M.D. [id number] MAGNESIUM LEVELon 01-25-2025 Magnesium [Mass/Vol] 2.3 mg/dL Normal 1.6-2.4 [facility] Comment on above: Performed By: #### 4 6109 ####[facility] [address] [address] Wojciech Oneal M.D. [id number] Magnesium [Mass/Vol] 1.9 mg/dL Normal 1.6-2.4 [facility] Comment on above: Performed By: #### 4 6109 ####[facility] [address] [id number] Wojciech Oneal M.D. [id number] PHOSPHORUSon 01-25-2025 Phosphate [Mass/Vol] 3.3 mg/dL Normal 2.3-3.7 [facility] Comment on above: Performed By: #### 4 6299 ####[facility] [address] [id number] Wojciech Oneal M.D. [id number] POC ARTERIAL BLOOD GAS PANEL -[facility] 01-25-2025 BASE EXCESS, ARTERIAL -1.1 Normal -2.0-2.0 [facility] Comment on above: Performed By: #### 4 8716 ####[facility] [address] [address] [id number] [facility] CALCIUM IONIZED 4.3 mg/dL Low 4.5-5.3 [facility] Comment on above: Performed By: #### 4 8716 ####[facility] [address] [address] [id number] [facility] CARBOXYHEMOGLOBIN 1.6 % of total Hb High <=1.5 [facility] Comment on above: Result Comment: Refe rence Ranges:Suburban Non-smokers: <1.5%Smokers: 1.5-5.0%Heavy Smokers: 5.0-9.0% Performed By: #### 4 8716 ####[facility] [address] [address] [id number] [facility] FIO2 30 Normal [facility] Comment on above: Performed By: #### 4 8716 ####[facility] [address] [address] [id number] [facility] Glucose [Mass/Vol] 105 mg/dL High 65-99 [facility] Comment on above: Performed By: #### 4 8716 ####[facility] [address] [address] [id number] [facility] HCO3 (Bld) [Moles/Vol] 24.2 mmol/L Normal 22.0-26.0 [facility] Comment on above: Performed By: #### 4 8716 ####[facility] [address] [address] [id number] [facility] Hematocrit (Bld) [Volume fraction] 30.0 % Low 41.0-53.0 [facility] Comment on above: Performed By: #### 4 8716 ####[facility] [address] [address] [id number] [facility] Hemoglobin (Bld) [Mass/Vol] 9.7 g/dL Low 13.5-17.5 [facility] Comment on above: Performed By: #### 4 8716 ####[facility] [address] [address] [id number] [facility] LACTIC ACID, WHOLE BLOOD 0.8 mmol/L Normal 0.6-2.0 [facility] Comment on above: Performed By: #### 4 8716 ####[facility] [address] [address] [id number] [facility] METHEMOGLOBIN 1.1 % Normal 0.0-2.0 [facility] Comment on above: Performed By: #### 4 8716 ####[facility] [address] [address] [id number] [facility] O2HB 93.7 % Low 94.0-98.0 [facility] Comment on above: Performed By: #### 4 8716 ####[facility] [place] [facility] [address] [address] [id number] [facility] Oxygen saturation in Blood 96.3 % Normal 92.0-99.0 [facility] Comment on above: Performed By: #### 4 8716 ####[facility] [address] [address] [id number] [facility] PCO2 ARTERIAL 45.5 mm Hg High 35.0-45.0 [facility] Comment on above: Performed By: #### 4 8716 ####[facility] [address] [address] [id number] [facility] PEEP RAD 8 Normal [facility] Comment on above: Performed By: #### 4 8716 ####[facility] [address] [address] [id number] [facility] PH ARTERIAL 7.34 Low 7.35-7.45 [facility] Comment on above: Performed By: #### 4 8716 ####[facility] [address] [address] [id number] [facility] PO2 ARTERIAL 83 mm Hg Normal 75-85 [facility] Comment on above: Performed By: #### 4 8716 ####[facility] [address] [address] [id number] [facility] Potassium [Moles/Vol] 4.0 mmol/L Normal 3.5-5.1 [facility] Comment on above: Performed By: #### 4 8716 ####[facility] [address] [address] [id number] [facility] RESP RATE RAD 16 [facility] Comment on above: Performed By: #### 4 8716 ####[facility] [address] [address] [id number] [facility] Sodium [Moles/Vol] 138 mmol/L Normal 135-145 [facility] Comment on above: Performed By: #### 4 8716 ####[facility] [address] [address] [id number] [facility] TIDAL VOLUME RAD 450 [facility] Comment on above: Performed By: #### 4 8716 ####[facility] [address] [address] [id number] [facility] POC GLUCOSE - [facility] 025 Glucose [Mass/Vol] 116 mg/dL [address] Comment on above: Performed By: #### 4 6932 ####[facility] [address] [address] [id number] [facility] Glucose [Mass/Vol] 107 mg/dL [address] Comment on above: Performed By: #### 4 6932 ####[facility] [address] [address] [id number] [facility] Glucose [Mass/Vol] 106 mg/dL [address] Comment on above: Performed By: #### 4 6932 ####[facility] [address] [address] [id number] [facility] Glucose [Mass/Vol] 109 mg/dL [address] Comment on above: Performed By: #### 4 6932 ####[facility] [address] [address] [id number] [facility] Glucose [Mass/Vol] 102 mg/dL [address] Comment on above: Performed By: #### 4 6932 ####[facility] [address] [address] [id number] [facility] POTASSIUM LEVELon 01-25-2025 Potassium [Moles/Vol] 4.2 mmol/L Normal 3.5-5.1 [facility] Comment on above: Performed By: #### 4 6351 ####[facility] [address], [place] [address] Wojciech Oneal M.D. [id number] VANCOMYCIN LEVEL, RANDOMon 0 01-25-2025 VANCOMYCIN RANDOM 11.6 mcg/mL Normal [facility] Comment on above: Order Comment: As of 02/2022 vancomycin dosing for [facility] inpatients will be done by Bayesian dosing software rather than off traditional trough values. Please contact the site specific inpatient pharmacy before making dose changes off of trough values alone for admitted patients.No established reference range. Performed By: #### 4 6651 ####[facility] [address], [place] [address] Wojciech Oneal M.D. [id number] XR CHEST PA/APon 01-25-2025 XR CHEST PA/AP Normal [facility] Comment on above: Order Comment: Injur y/Trauma or Illness?:Illness/OtherHow long have you had these symptoms (acute/chronic)?:UnknownReason for exam?:Respiratory statusHistory of cancer?:unkSurgeries, chemotherapy, or radiation?:unkType of Exam?:InitialAdditional signs and symptoms?:na BASIC METABOLIC PANELon 01-12 Anion gap [Moles/Vol] 16 mmol/L Normal - [facility] Comment on above: Order Comment: [facility] has implemented the eGFR calculation approach that does not have a coefficient for race that conforms to the NKF-ASN Task Force Recommendations. Performed By: #### 4 6124 ####[facility] [address], [place] [address] Wojciech Oneal M.D. [id number] Calcium [Mass/Vol] 6.7 mg/dL Low 8.4-10.2 [facility] Comment on above: Order Comment: [facility] has implemented the eGFR calculation approach that does not have a coefficient for race that conforms to the NKF-ASN Task Force Recommendations. Performed By: #### 4 6124 ####[facility] [address] [id number] Wojciech Oneal M.D. [id number] Chloride [Moles/Vol] 101 mmol/L Normal 98-108 [facility] Comment on above: Order Comment: [facility] has implemented the eGFR calculation approach that does not have a coefficient for race that conforms to the NKF-ASN Task Force Recommendations. Performed By: #### 4 6124 ####[facility] [address] [address] Wojciech Oneal M.D. [id number] Creatinine [Mass/Vol] 1.82 mg/dL High 0.80-1.30 [facility] Comment on above: Order Comment: [facility] has implemented the eGFR calculation approach that does not have a coefficient for race that conforms to the NKF-ASN Task Force Recommendations. Performed By: #### 4 6124 ####[facility] [address] [id number] Wojciech Oneal M.D. [id number] EGFR 39 mL/min/1.73 m2 Low >=60 [facility] Comment on above: Order Comment: [facility] has implemented the eGFR calculation approach that does not have a coefficient for race that conforms to the NKF-ASN Task Force Recommendations. Result Comment: Chelsea mated GFR was calculated using the 2020 CKD-EPI creatinine equation. Performed By: #### 4 6124 ####[facility] [address] [address] Wojciech Oneal M.D. [id number] Glucose [Mass/Vol] 127 mg/dL High 65-99 [facility] Comment on above: Order Comment: [facility] has implemented the eGFR calculation approach that does not have a coefficient for race that conforms to the NKF-ASN Task Force Recommendations. Performed By: #### 4 6124 ####[facility] [address], [place] [address] Wojciech Oneal M.D. [id number] HCO3 (Bld) [Moles/Vol] 19 mmol/L Low 21-32 [facility] Comment on above: Order Comment: [facility] has implemented the eGFR calculation approach that does not have a coefficient for race that conforms to the NKF-ASN Task Force Recommendations. Performed By: #### 4 6163 ####[facility] [address], [place] [address] Wojciech Oneal M.D. [id number] Potassium [Moles/Vol] 4.0 mmol/L Normal 3.5-5.1 [facility] Comment on above: Order Comment: [facility] has implemented the eGFR calculation approach that does not have a coefficient for race that conforms to the NKF-ASN Task Force Recommendations. Performed By: #### 4 6124 ####[facility] [address] [address] Wojciech Oneal M.D. [id number] Sodium [Moles/Vol] 132 mmol/L Low 135-145 [facility] Comment on above: Order Comment: [facility] has implemented the eGFR calculation approach that does not have a coefficient for race that conforms to the NKF-ASN Task Force Recommendations. Performed By: #### 4 6124 ####[facility] [address] [address] Wojciech Oneal M.D. [id number] Urea nitrogen [Mass/Vol] 49 mg/dL High 8-25 [facility] Comment on above: Order Comment: [facility] has implemented the eGFR calculation approach that does not have a coefficient for race that conforms to the NKF-ASN Task Force Recommendations. Performed By: #### 4 6124 ####[facility] [address], [place] [address] Wojciech Oneal M.D. [id number] Urea nitrogen/Creatinine [Mass ratio] 26.9 mg/mg High 10.0-20.0 [facility] Comment on above: Order Comment: [facility] has implemented the eGFR calculation approach that does not have a coefficient for race that conforms to the NKF-ASN Task Force Recommendations. Performed By: #### 4 6124 ####[facility] [address], [place] [address] Wojciech Oneal M.D. [id number] CALCIUM, IONIZEDon 5 CALCIUM IONIZED 3.9 mg/dL Low 4.5-5.3 [facility] Comment on above: Performed By: #### 4 5190 ####[facility] [address] [id number] Wojciech Onela M.D. [id number] CBCon 01-24-2025 AUTO NRBC 0.0 % Normal [facility] Comment on above: Performed By: #### 4 5218 ####[facility] [address] [address] Wojciech Oneal M.D. [id number] AUTO NRBC ABS COUNT 0.00 K/mcL Normal 0.00-0.00 [facility] Comment on above: Performed By: #### 4 5218 ####[facility] [address] [address] Wojciech Oneal M.D. [id number] Erythrocyte distribution width (RBC) [Ratio] 13.0 % Normal 11.6-14.8 [facility] Comment on above: Performed By: #### 4 5218 ####[facility] [address] [address] Wojciech Oneal M.D. [id number] Hematocrit (Bld) [Volume fraction] 24.5 % Low 41.0-53.0 [facility] Comment on above: Performed By: #### 4 5218 ####[place] [address] [address] Wojciech Oneal M.D. [id number] Hemoglobin (Bld) [Mass/Vol] 8.0 g/dL Low 13.5-17.5 [facility] Comment on above: Performed By: #### 4 5218 ####[facility] [address] [id number] Wojciech Oneal M.D. [id number] MCH (RBC) [Entitic mass] 29.7 pg Normal 26.0-34.0 [facility] Comment on above: Performed By: #### 4 5218 ####[facility] [address] [address] Wojciech Oneal M.D. [id number] MCV (RBC) [Entitic vol] 91.1 fL Normal 80.0-100.0 [facility] Comment on above: Performed By: #### 4 5218 ####[facility] [address] [address] Wojciech Oneal M.D. [id number] MEAN CORPUSCULAR HEMOGLOBIN CONC 32.7 g/dL Normal 31.0-37.0 [facility] Comment on above: Performed By: #### 4 5218 ####[facility] [address], [place] [address] Wojciech Oneal M.D. [id number] Platelet mean volume (Bld) [Entitic vol] 9.3 fL Low 9.4-12.4 [facility] Comment on above: Performed By: #### 4 5218 ####[facility] [address] [address] Wojciech Oneal M.D. [id number] Platelets (Bld) [#/Vol] 258 10*3/uL Normal 150-400 [facility] Comment on above: Performed By: #### 4 5218 ####[facility] [address] [address] Wojciech Oneal M.D. [id number] RBC (Bld) [#/Vol] 2.69 10*6/uL Low 4.50-5.90 [facility] Comment on above: Performed By: #### 4 5218 ####[facility] [address] [address] Wojciech Oneal M.D. [id number] WBC (Bld) [#/Vol] 21.11 10*3/uL High 4.50-11.00 [facility] Comment on above: Performed By: #### 4 5218 ####[facility] [address] [address] Wojciech Oneal M.D. [id number] CONSULTon 01-24-2025 CONSULT [facility] Culture, Blood (WB)on 2024 CUB Blood cultures x2, from two different sites GRAM STAIN= GRAM NEGATIVE RODS Culture, Blood (WB) RESULTS CALLED/PRINTED TO [facility] 01/22/25 15[address]. [facility] Culture, Blood (WB) Culture, Blood (WB) Proteus mirabilis Amount Growth Growth Escherichia coli Escherichia coli Proteus mirabilis: REACTION Ampicillin Islt TAMMY <=2 S Ampicillin+Sulbac Islt TAMMY <=2 Cefepime Islt TAMMY <=0.12 S cefTRIAXone Islt TAMMY <=0.25 S Ciprofloxacin Islt TAMMY <=0.06 S Gentamicin Islt TAMMY <=1 S levoFLOXacin Islt TAMMY <=0.12 S Meropenem Islt TAMMY <=0.25 S Pip+Tazo Islt TAMMY <=4 S TMP SMX Islt TAMMY <=20 S Escherichia coli: REACTION Ampicillin Islt TAMMY <=2 S Ampicillin+Sulbac Islt TAMMY <=2 Cefepime Islt TAMMY <=0.12 S cefTRIAXone Islt TAMMY <=0.25 S Ciprofloxacin Islt TAMMY <=0.06 S B-Lactamase Extended Susc Islt NEG Gentamicin Islt TAMMY <=1 S levoFLOXacin Islt TAMMY <=0.12 S Meropenem Islt TAMMY <=0.25 S Pip+Tazo Islt TAMMY <=4 S TMP SMX Islt TAMMY <=20 S Normal [facility] [place] [facility] Comment on above: Performed By: #### L 509.7001, L100.0100, L503.6005, L503.7505, L501.3620, L500.2500, L501.5200, L500.3400 #### [facility] [place] [facility] [address] [place], [address] ECHOCARDIOGRAM COMPLETE W CO NTRASTon 01-24-2025 ECHOCARDIOGRAM COMPLETE W CONTRAST Normal [facility] MAGNESIUM LEVELon 01-24-2025 Magnesium [Mass/Vol] 2.0 mg/dL Normal 1.6-2.4 [facility] Comment on above: Performed By: #### 4 6109 ####[facility] [address], [place] [address] Wojciech Oneal M.D. [id number] PHOSPHORUSon 01-24-2025 Phosphate [Mass/Vol] 4.7 mg/dL High 2.3-3.7 [facility] Comment on above: Performed By: #### 4 6299 ####[facility] [address], [place] [address] Wojciech Oneal M.D. [id number] POC ARTERIAL BLOOD GAS PANEL -[facility] 01-24-2025 BASE EXCESS, ARTERIAL -2.8 Low -2.0-2.0 [facility] Comment on above: Performed By: #### 4 8716 ####[facility] [address] [address] [id number] [facility] CALCIUM IONIZED 4.0 mg/dL Low 4.5-5.3 [facility] Comment on above: Performed By: #### 4 8716 ####[facility] [address] [address] [id number] [facility] CARBOXYHEMOGLOBIN 1.3 % of total Hb Normal <=1.5 [facility] Comment on above: Result Comment: Refe rence Ranges:Suburban Non-smokers: <1.5%Smokers: 1.5-5.0%Heavy Smokers: 5.0-9.0% Performed By: #### 4 8716 ####[facility] [address] [address] [id number] [facility] Chloride [Moles/Vol] 103 mmol/L Normal 98-108 [facility] Comment on above: Performed By: #### 4 8716 ####[facility] [address] [place] [address] [id number] [facility] FIO2 30 Normal [facility] Comment on above: Performed By: #### 4 8716 ####[facility] [address] [address] [id number] [facility] Glucose [Mass/Vol] 109 mg/dL High 65-99 [facility] Comment on above: Performed By: #### 4 8716 ####[facility] [address] [address] [id number] [facility] HCO3 (Bld) [Moles/Vol] 23.3 mmol/L Normal 22.0-26.0 [facility] Comment on above: Performed By: #### 4 8716 ####[facility] [address] [address] [id number] [facility] Hematocrit (Bld) [Volume fraction] 25.3 % Low 41.0-53.0 [facility] Comment on above: Performed By: #### 4 8716 ####[facility] [address] [place] [address] [id number] [facility] Hemoglobin (Bld) [Mass/Vol] 8.3 g/dL Low 13.5-17.5 [facility] Comment on above: Performed By: #### 4 8716 ####[facility] [address] [place] [address] [id number] [facility] LACTIC ACID, WHOLE BLOOD 0.8 mmol/L Normal 0.6-2.0 [facility] Comment on above: Performed By: #### 4 8716 ####[facility] [address] [address] [id number] [facility] METHEMOGLOBIN < Normal 0.0-2.0 [facility] Comment on above: Performed By: #### 4 8716 ####[facility] [address] [address] [id number] [facility] O2HB 92.2 % Low 94.0-98.0 [facility] Comment on above: Performed By: #### 4 8716 ####[facility] [address] [address] [id number] [facility] Oxygen saturation in Blood 93.5 % Normal 92.0-99.0 [facility] Comment on above: Performed By: #### 4 8716 ####[facility] [address] [address] [id number] [facility] PCO2 ARTERIAL 45.2 mm Hg High 35.0-45.0 [facility] Comment on above: Performed By: #### 4 8716 ####[facility] [address] [address] [id number] [facility] PEEP RAD 8 Normal [facility] Comment on above: Performed By: #### 4 8716 ####[facility] [address] [address] [id number] [facility] PH ARTERIAL 7.32 Low 7.35-7.45 [facility] Comment on above: Performed By: #### 4 8716 ####[facility] [address] [address] [id number] [facility] PO2 ARTERIAL 70 mm Hg Low 75-85 [facility] Comment on above: Performed By: #### 4 8716 ####[facility] [address] [place] [address] [id number] [facility] Potassium [Moles/Vol] 3.7 mmol/L Normal 3.5-5.1 [facility] Comment on above: Performed By: #### 4 8716 ####[facility] [address] [place] [address] [id number] [facility] RESP RATE RAD 16 [facility] Comment on above: Performed By: #### 4 8716 ####[facility] [address] [place] [address] [id number] [facility] RESULT NOTIFICATION RESULTS GIVEN TO:[id number] [facility] Comment on above: Performed By: #### 4 8716 ####[facility] [address] [place] [address] [id number] [facility] Sodium [Moles/Vol] 133 mmol/L Low 135-145 [facility] Comment on above: Performed By: #### 4 8716 ####[facility] [address] [place] [address] [id number] [facility] TIDAL VOLUME RAD 450 [facility] Comment on above: Performed By: #### 4 8716 ####[facility] [address] [place] [address] [id number] [facility] POC GLUCOSE [facility] 025 Glucose [Mass/Vol] 104 mg/dL [address] Comment on above: Performed By: #### 4 6932 ####[facility] [address] [place] [address] [id number] [facility] Glucose [Mass/Vol] 106 mg/dL [address] Comment on above: Performed By: #### 4 6932 ####[facility] [address] [place] [address] [id number] [facility] Glucose [Mass/Vol] 92 mg/dL [address] Comment on above: Performed By: #### 4 6932 ####[facility] [address] [place] [address] [id number] [facility] Glucose [Mass/Vol] 95 mg/dL Normal -[address] [place] [address] Comment on above: Performed By: #### 4 6932 ####[facility] [address] [address] [id number] [facility] Glucose [Mass/Vol] 107 mg/dL High [address] [place] [address] Comment on above: Performed By: #### 4 6932 ####[facility] [address] [address] [id number] [facility] Glucose [Mass/Vol] 127 mg/dL High [address] [place] [address] Comment on above: Performed By: #### 4 6932 ####[facility] [address] [address] [id number] [facility] VANCOMYCIN LEVEL, RANDOMon 0 01-24-2025 VANCOMYCIN RANDOM 20.6 mcg/mL Normal [facility] Comment on above: Order Comment: As of 02/2022 vancomycin dosing for [facility] inpatients will be done by Bayesian dosing software rather than off traditional trough values. Please contact the site specific inpatient pharmacy before making dose changes off of trough values alone for admitted patients.No established reference range. Performed By: #### 4 6651 ####[facility] [address] [id number] Wojciech Oneal M.D. [id number] XR CHEST PA/APon 01-24-2025 XR CHEST PA/AP Normal [facility] Comment on above: Order Comment: Injur y/Trauma or Illness?:Illness/OtherHow long have you had these symptoms (acute/chronic)?:AcuteReason for exam?:Respiratory statusHistory of cancer?:unkSurgeries, chemotherapy, or radiation?:unkType of Exam?:InitialAdditional signs and symptoms?:Respiratory status BASIC METABOLIC PANELon 01-12 Anion gap [Moles/Vol] 16 mmol/L Normal - [facility] Comment on above: Order Comment: [facility] has implemented the eGFR calculation approach that does not have a coefficient for race that conforms to the NKF-ASN Task Force Recommendations. Performed By: #### 4 6124 ####[facility] [address] [id number] Wojciech Oneal M.D. [id number] Calcium [Mass/Vol] 6.9 mg/dL Low 8.4-10.2 [facility] Comment on above: Order Comment: [facility] has implemented the eGFR calculation approach that does not have a coefficient for race that conforms to the NKF-ASN Task Force Recommendations. Performed By: #### 4 6124 ####[facility] [address] [address] Wojciech Oneal M.D. [id number] Chloride [Moles/Vol] 100 mmol/L Normal 98-108 [facility] Comment on above: Order Comment: [facility] has implemented the eGFR calculation approach that does not have a coefficient for race that conforms to the NKF-ASN Task Force Recommendations. Performed By: #### 4 6124 ####[facility] [address] [address] Wojciech Oneal M.D. [id number] Creatinine [Mass/Vol] 2.68 mg/dL High 0.80-1.30 [facility] Comment on above: Order Comment: [facility] has implemented the eGFR calculation approach that does not have a coefficient for race that conforms to the NKF-ASN Task Force Recommendations. Performed By: #### 4 6124 ####[facility] [address] [address] Wojciech Oneal M.D. [id number] EGFR 25 mL/min/1.73 m2 Low >=60 [facility] Comment on above: Order Comment: [facility] has implemented the eGFR calculation approach that does not have a coefficient for race that conforms to the NKF-ASN Task Force Recommendations. Result Comment: Chelsea mated GFR was calculated using the 2020 CKD-EPI creatinine equation. Performed By: #### 4 6124 ####[facility] [address] [address] Wojciech Oneal M.D. [id number] Glucose [Mass/Vol] 134 mg/dL High 65-99 [facility] Comment on above: Order Comment: [facility] has implemented the eGFR calculation approach that does not have a coefficient for race that conforms to the NKF-ASN Task Force Recommendations. Performed By: #### 4 6124 ####[facility] [address], [place] [address] Wojciech Oneal M.D. [id number] HCO3 (Bld) [Moles/Vol] 19 mmol/L Low 21-32 [facility] Comment on above: Order Comment: [facility] has implemented the eGFR calculation approach that does not have a coefficient for race that conforms to the NKF-ASN Task Force Recommendations. Performed By: #### 4 6124 ####[facility] [address] [address] Wojciech Oneal M.D. [id number] Potassium [Moles/Vol] 4.2 mmol/L Normal 3.5-5.1 [facility] Comment on above: Order Comment: [facility] has implemented the eGFR calculation approach that does not have a coefficient for race that conforms to the NKF-ASN Task Force Recommendations. Performed By: #### 4 6124 ####[facility] [address] [address] Wojciech Oneal M.D. [id number] Sodium [Moles/Vol] 131 mmol/L Low 135-145 [facility] Comment on above: Order Comment: [facility] has implemented the eGFR calculation approach that does not have a coefficient for race that conforms to the NKF-ASN Task Force Recommendations. Performed By: #### 4 6124 ####[facility] [address] [address] Wojciech Oneal M.D. [id number] Urea nitrogen [Mass/Vol] 62 mg/dL High 8-25 [facility] Comment on above: Order Comment: [facility] has implemented the eGFR calculation approach that does not have a coefficient for race that conforms to the NKF-ASN Task Force Recommendations. Performed By: #### 4 6124 ####[facility] [address] [address] Wojciech Oneal M.D. [id number] Urea nitrogen/Creatinine [Mass ratio] 23.1 mg/mg High 10.0-20.0 [facility] Comment on above: Order Comment: [facility] has implemented the eGFR calculation approach that does not have a coefficient for race that conforms to the NKF-ASN Task Force Recommendations. Performed By: #### 4 6124 ####[facility] [address] [address] Wojciech Oneal M.D. [id number] CALCIUM, IONIZEDon 5 CALCIUM IONIZED 4.1 mg/dL Low 4.5-5.3 [facility] Comment on above: Performed By: #### 4 5190 ####[facility] [address] [address] Wojciech Oneal M.D. [id number] CBCon 01-23-2025 AUTO NRBC 0.1 % Normal [facility] Comment on above: Performed By: #### 4 5218 ####[facility] [address] [address] Wojciech Oneal M.D. [id number] AUTO NRBC ABS COUNT 0.02 K/mcL High 0.00-0.00 [facility] Comment on above: Performed By: #### 4 5218 ####[facility] [address] [address] Wojciech Oneal M.D. [id number] Erythrocyte distribution width (RBC) [Ratio] 12.7 % Normal 11.6-14.8 [facility] Comment on above: Performed By: #### 4 5218 ####[facility] [address] [address] Wojciech Oneal M.D. [id number] Hematocrit (Bld) [Volume fraction] 28.8 % Low 41.0-53.0 [facility] Comment on above: Performed By: #### 4 5218 ####[facility] [address] [address] Wojciech Oneal M.D. [id number] Hemoglobin (Bld) [Mass/Vol] 9.6 g/dL Low 13.5-17.5 [facility] Comment on above: Performed By: #### 4 5218 ####[facility] [address] [address] Wojciech Oneal M.D. [id number] MCH (RBC) [Entitic mass] 29.4 pg Normal 26.0-34.0 [facility] Comment on above: Performed By: #### 4 5218 ####[facility] [address] [id number] Wojciech Oneal M.D. [id number] MCV (RBC) [Entitic vol] 88.1 fL Normal 80.0-100.0 [facility] Comment on above: Performed By: #### 4 5218 ####[facility] [address] [address] Wojciech Oneal M.D. [id number] MEAN CORPUSCULAR HEMOGLOBIN CONC 33.3 g/dL Normal 31.0-37.0 [facility] Comment on above: Performed By: #### 4 5218 ####[facility] [address] [address] Wojciech Oneal M.D. [id number] Platelet mean volume (Bld) [Entitic vol] 9.3 fL Low 9.4-12.4 [facility] Comment on above: Performed By: #### 4 5218 ####[facility] [address] [address] Wojciech Oneal M.D. [id number] Platelets (Bld) [#/Vol] 285 10*3/uL Normal 150-400 [facility] Comment on above: Performed By: #### 4 5218 ####[facility] [address] [address] Wojciech Oneal M.D. [id number] RBC (Bld) [#/Vol] 3.27 10*6/uL Low 4.50-5.90 [facility] Comment on above: Performed By: #### 4 5218 ####[facility] [address] [address] Wojciech Oneal M.D. [id number] WBC (Bld) [#/Vol] 20.92 10*3/uL High 4.50-11.00 [facility] Comment on above: Performed By: #### 4 5218 ####[facility] [address] [id number] Wojciech Oneal M.D. [id number] MAGNESIUM LEVELon 01-23-2025 Magnesium [Mass/Vol] 2.1 mg/dL Normal 1.6-2.4 [facility] Comment on above: Performed By: #### 4 6109 ####[facility] [address] [address] Wojciech Oneal M.D. [id number] OP NOTEon 01-23-2025 OP NOTE Normal [facility] PHOSPHORUSon 01-23-2025 Phosphate [Mass/Vol] 5.2 mg/dL High 2.3-3.7 [facility] Comment on above: Performed By: #### 4 6299 ####[facility] [address] [address] Wojciech Oneal M.D. [id number] POC ARTERIAL BLOOD GAS PANEL [facility] 01-23-2025 BASE EXCESS, ARTERIAL -5.2 Low -2.0-2.0 [facility] Comment on above: Performed By: #### 4 8716 ####[facility] [address] [address] [id number] [facility] CALCIUM IONIZED 4.0 mg/dL Low 4.5-5.3 [facility] Comment on above: Performed By: #### 4 8716 ####[facility] [address] [address] [id number] [facility] CARBOXYHEMOGLOBIN 1.2 % of total Hb Normal <=1.5 [facility] Comment on above: Result Comment: Refe rence Ranges:Suburban Non-smokers: <1.5%Smokers: 1.5-5.0%Heavy Smokers: 5.0-9.0% Performed By: #### 4 8716 ####[facility] [address] [address] [id number] [facility] Chloride [Moles/Vol] 102 mmol/L Normal 98-108 [facility] Comment on above: Performed By: #### 4 8716 ####[facility] [address] [address] [id number] [facility] FIO2 40 [facility] Comment on above: Performed By: #### 4 8716 ####[facility] [address] [id number] [facility] Glucose [Mass/Vol] 128 mg/dL High 65-99 [facility] Comment on above: Performed By: #### 4 8716 ####[facility] [address] [place] [address] [id number] [facility] HCO3 (Bld) [Moles/Vol] 20.5 mmol/L Low 22.0-26.0 [facility] Comment on above: Performed By: #### 4 8716 ####[facility] [address] [place] [address] [id number] [facility] Hematocrit (Bld) [Volume fraction] 30.3 % Low 41.0-53.0 [facility] Comment on above: Performed By: #### 4 8716 ####[facility] [address] [place] [address] [id number] [facility] Hemoglobin (Bld) [Mass/Vol] 9.9 g/dL Low 13.5-17.5 [facility] Comment on above: Performed By: #### 4 8716 ####[facility] [address] [place] [address] [id number] [facility] LACTIC ACID, WHOLE BLOOD 0.8 mmol/L Normal 0.6-2.0 [facility] Comment on above: Performed By: #### 4 8716 ####[facility] [address] [place] [address] [id number] [facility] METHEMOGLOBIN < Normal 0.0-2.0 [facility] Comment on above: Performed By: #### 4 8716 ####[facility] [address] [place] [address] [id number] [facility] O2HB 98.1 % High 94.0-98.0 [facility] Comment on above: Performed By: #### 4 8716 ####[facility] [address] [place] [address] [id number] [facility] Oxygen saturation in Blood 99.5 % High 92.0-99.0 [facility] Comment on above: Performed By: #### 4 8716 ####[facility] [address] [place] [address] [id number] [facility] PCO2 ARTERIAL 40.1 mm Hg Normal 35.0-45.0 [facility] Comment on above: Performed By: #### 4 8716 ####[facility] [address] [place] [address] [id number] [facility] PEEP RAD 8 [facility] Comment on above: Performed By: #### 4 8716 ####[facility] [address] [place] [address] [id number] [facility] PH ARTERIAL 7.32 Low 7.35-7.45 [facility] Comment on above: Performed By: #### 4 8716 ####[facility] [address] [address] [id number] [facility] PO2 ARTERIAL 152 mm Hg High 75-85 [facility] Comment on above: Performed By: #### 4 8716 ####[facility] [address] [address] [id number] [facility] Potassium [Moles/Vol] 3.8 mmol/L Normal 3.5-5.1 [facility] Comment on above: Performed By: #### 4 8716 ####[facility] [address] [place] [address] [id number] [facility] RESP RATE RAD 16 [facility] Comment on above: Performed By: #### 4 8716 ####[facility] [address] [address] [id number] [facility] Sodium [Moles/Vol] 130 mmol/L Low 135-145 [facility] Comment on above: Performed By: #### 4 8716 ####[facility] [address] [address] [id number] [facility] TIDAL VOLUME RAD 450 [facility] Comment on above: Performed By: #### 4 8716 ####[facility] [address] [address] [id number] [facility] POC GLUCOSE - [facility] 025 Glucose [Mass/Vol] 121 mg/dL [facility] 65-99 [facility] Comment on above: Performed By: #### 4 6932 ####[facility] [address] [address] [id number] [facility] Glucose [Mass/Vol] 114 mg/dL [address] Comment on above: Performed By: #### 4 6932 ####[facility] [address] [address] [id number] [facility] Glucose [Mass/Vol] 123 mg/dL [address] Comment on above: Performed By: #### 4 6932 ####[facility] [address] [address] [id number] [facility] Glucose [Mass/Vol] 133 mg/dL [address] Comment on above: Performed By: #### 4 6932 ####[facility] [address] [address] [id number] [facility] Urine Cultureon 01-23-2025 [facility] Culture exhibits no growth. [facility] Comment on above: Performed By: #### L 509.7001, L100.0100, L503.6005, L503.7505, L501.3620, L500.2500, L501.5200, L500.3400 #### [facility] [place] [facility] [address] [place], [address] VANCOMYCIN LEVEL, RANDOMon 0 01-23-2025 VANCOMYCIN RANDOM 11.5 mcg/mL [facility] Comment on above: Order Comment: As of 02/2022 vancomycin dosing for [facility] inpatients will be done by Bayesian dosing software rather than off traditional trough values. Please contact the site specific inpatient pharmacy before making dose changes off of trough values alone for admitted patients.No established reference range. Performed By: #### 4 6651 ####[facility] [address] [place], [place] [address] Wojciech Oneal M.D. [id number] XR CHEST PA/APon 01-23-2025 XR CHEST PA/AP [facility] Comment on above: Order Comment: Injur y/Trauma or Illness?:Illness/OtherHow long have you had these symptoms (acute/chronic)?:AcuteReason for exam?:Respiratory statusHistory of cancer?:unkSurgeries, chemotherapy, or radiation?:unkType of Exam?:InitialAdditional signs and symptoms?:na 12 Lead EKGon 01-22-2025 12 Lead EKG [facility] [address] [place] [address] 12 Lead EKG 01/22/25 0512 MR#: [id number] Acct: [id number] Name: JAK TANNER Rep #: [id number] : [id number] 69 From: Austin Ryan MD Attending Dr: See Bee DO Status: DEP ER Ordering Dr: See Bee DO Date: 01/22/25 Location: ED Sex: M AA Admitted: Test Reason : A-FIB Blood Pressure : */* mmHG Vent. Rate : 118 BPM Atrial Rate : 241 BPM P-R Int : * ms QRS Dur : 96 ms QT Int : 408 ms P-R-T Axes : * -16 42 degrees QTcB Int : 571 ms Critical Test Result: Long QTc Atrial fibrillation with rapid ventricular response Nonspecific ST and T wave abnormality Prolonged QT Abnormal ECG When compared with ECG of 13-Jul-2023 05:36, Atrial flutter has replaced Atrial fibrillation Confirmed by Austin Ryan ([id number]), non linear editor ELVA YIP ([id number]) on 01/27/2025 5:48:47 AM Referred By: CRISTAL Confirmed By: Austin Ryan 01/27/25 0548 Date Austin Ryan MD CC: See Bee DO; [facility] Signed Normal [facility] [place] [facility] ABORH VERIFICATIONon 025 ABO and Rh group Nom (Bld) Blood group O Rh(D) positive [facility] Comment on above: Performed By: #### 8782 ####[facility] [address] [facility] [address] Radha Kelsey MD [id number] GMCTS ABO and Rh group Nom (Bld) ABO/Rh Verification [facility] Comment on above: Result Comment: Theresa ent's ABO/Rh is verified. Performed By: #### 4 8787 ####[facility] [address] [address] Radha Kelsey MD [id number] [facility] Absolute lymphocyte countOrd ered By: See Bee on 01-22-2025 Lymphocytes Auto (Unsp spec) [#/Vol] 0.80 10*3/uL Low 0.83-4.51 [facility] [place] [facility] Absolute neutrophil countOrd ered By: See Bee on 01-22-2025 Neutrophils (Bld) [#/Vol] 23.6 10*3/uL High 2.0-7.7 [facility] [place] [facility] Anion gap in Serum or Plasma Ordered By: See Bee on 01-22-2025 Anion gap [Moles/Vol] 16 mmol/L High 5-15 [facility] BASIC METABOLIC PANELon 01-12 Anion gap [Moles/Vol] 19 mmol/L Normal 10-20 [facility] Comment on above: Order Comment: [facility] has implemented the eGFR calculation approach that does not have a coefficient for race that conforms to the NKF-ASN Task Force Recommendations. Performed By: #### 4 6124 ####[facility] [address] [id number] Wojciech Oneal M.D. [id number] Calcium [Mass/Vol] 7.5 mg/dL Low 8.4-10.2 [facility] Comment on above: Order Comment: [facility] has implemented the eGFR calculation approach that does not have a coefficient for race that conforms to the NKF-ASN Task Force Recommendations. Performed By: #### 4 6124 ####[facility] [address] [id number] Wojciech Oneal M.D. [id number] Chloride [Moles/Vol] 97 mmol/L Low 98-108 [facility] Comment on above: Order Comment: [facility] has implemented the eGFR calculation approach that does not have a coefficient for race that conforms to the NKF-ASN Task Force Recommendations. Performed By: #### 4 6124 ####[facility] [address] [address] Wojciech Oneal M.D. [id number] Creatinine [Mass/Vol] 3.62 mg/dL High 0.80-1.30 [facility] Comment on above: Order Comment: [facility] has implemented the eGFR calculation approach that does not have a coefficient for race that conforms to the NKF-ASN Task Force Recommendations. Performed By: #### 4 6124 ####[facility] [address] [address] Wojciech Oneal M.D. [id number] EGFR 17 mL/min/1.73 m2 Low >=60 [facility] Comment on above: Order Comment: [facility] has implemented the eGFR calculation approach that does not have a coefficient for race that conforms to the NKF-ASN Task Force Recommendations. Result Comment: Chelsea mated GFR was calculated using the 2020 CKD-EPI creatinine equation. Performed By: #### 4 6124 ####[facility] [address] [address] Wojciech Oneal M.D. [id number] Glucose [Mass/Vol] 131 mg/dL High 65-99 [facility] Comment on above: Order Comment: [facility] has implemented the eGFR calculation approach that does not have a coefficient for race that conforms to the NKF-ASN Task Force Recommendations. Performed By: #### 4 6124 ####[facility] [address] [id number] Wojciech Oneal M.D. [id number] HCO3 (Bld) [Moles/Vol] 18 mmol/L Low 21-32 [facility] Comment on above: Order Comment: [facility] has implemented the eGFR calculation approach that does not have a coefficient for race that conforms to the NKF-ASN Task Force Recommendations. Performed By: #### 4 6124 ####[facility] [address] [id number] Wojciech Oneal M.D. [id number] Potassium [Moles/Vol] 4.0 mmol/L Normal 3.5-5.1 [facility] Comment on above: Order Comment: [facility] has implemented the eGFR calculation approach that does not have a coefficient for race that conforms to the NKF-ASN Task Force Recommendations. Performed By: #### 4 6124 ####[facility] [address] [address] Wojciech Oneal M.D. [id number] Sodium [Moles/Vol] 130 mmol/L Low 135-145 [facility] Comment on above: Order Comment: [facility] has implemented the eGFR calculation approach that does not have a coefficient for race that conforms to the NKF-ASN Task Force Recommendations. Performed By: #### 4 6124 ####[facility] [address] [address] Wojciech Oneal M.D. [id number] Urea nitrogen [Mass/Vol] 62 mg/dL High 8-25 [facility] Comment on above: Order Comment: [facility] has implemented the eGFR calculation approach that does not have a coefficient for race that conforms to the NKF-ASN Task Force Recommendations. Performed By: #### 4 6124 ####[facility] [address] [address] Wojciech Oneal M.D. [id number] Urea nitrogen/Creatinine [Mass ratio] 17.1 mg/mg Normal 10.0-20.0 [facility] Comment on above: Order Comment: [facility] has implemented the eGFR calculation approach that does not have a coefficient for race that conforms to the NKF-ASN Task Force Recommendations. Performed By: #### 4 6124 ####[facility] [address] [address] Wojciech Oneal M.D. [id number] BETA-HYDROXYBUTYRATEon 01-22 BETA-HYDROXYBUTYRATE 0.4 mmol/L High 0.0-0.3 [facility] Comment on above: Performed By: #### 4 5139 ####[facility] [address] [id number] Wojciech Oneal M.D. [id number] BLOOD CULTURE AEROBIC/ANAERO BICon 01-22-2025 BLOOD CULTURE AEROBIC/ANAEROBIC BLOOD CULTURE No Growth after 5 [address] Normal [facility] Comment on above: Performed By: #### 4 4014 ####[facility] [address] [address] Tuan Ascencio M.D. [id number] BUN/creatinine ratioOrdered By: See Bee on 01-22-2025 Urea nitrogen/Creatinine [Mass ratio] 16.5 mg/mg - [facility] Basic Metabolic Profile (BMP )on 01-22-2025 BUN/CRE 16.5 RATIO Normal - [facility] Comment on above: Order Comment: REDRA W. PREVIOUS SPECIMEN REJECTED DUE TO RESULTS NOT COMING THROUGH AND SEEM TO BE ERRONEOUS. 01/22/25219 Mora Patel. NOTIFIED DELMY FOR REDRAW Performed By: #### L 509.7001, L100.0100, L503.6005, L503.7505, L501.3620, L500.2500, L501.5200, L500.3400 #### [facility] [place] [facility] [address] [place], [address] Calcium [Mass/Vol] 7.2 mg/dL Low 7.6-11.0 [facility] Comment on above: Order Comment: REDRA W. PREVIOUS SPECIMEN REJECTED DUE TO RESULTS NOT COMING THROUGH AND SEEM TO BE ERRONEOUS. 01/22/25219 Mora Patel. NOTIFIED DELMY FOR REDRAW Performed By: #### L 509.7001, L100.0100, L503.6005, L503.7505, L501.3620, L500.2500, L501.5200, L500.3400 #### [facility] [place] [facility] [address] [place], [address] Chloride [Moles/Vol] 95 mmol/L Low 98-108 [facility] Comment on above: Order Comment: REDRA W. PREVIOUS SPECIMEN REJECTED DUE TO RESULTS NOT COMING THROUGH AND SEEM TO BE ERRONEOUS. 01/22/25219 Mora Patel. NOTIFIED DELMY FOR REDRAW Performed By: #### L 509.7001, L100.0100, L503.6005, L503.7505, L501.3620, L500.2500, L501.5200, L500.3400 #### [facility] [place] [facility] [address] [place], [address] CO2 [Moles/Vol] 18.1 mmol/L Low 21.0-32.0 [facility] Comment on above: Order Comment: REDRA W. PREVIOUS SPECIMEN REJECTED DUE TO RESULTS NOT COMING THROUGH AND SEEM TO BE ERRONEOUS. 01/22/25219 Mora Patel. NOTIFIED DELMY FOR REDRAW Performed By: #### L 509.7001, L100.0100, L503.6005, L503.7505, L501.3620, L500.2500, L501.5200, L500.3400 #### [facility] [place] [facility] [address] [place], [address] Creatinine [Mass/Vol] 3.55 mg/dL High 0.70-1.20 [facility] Comment on above: Order Comment: REDRA W. PREVIOUS SPECIMEN REJECTED DUE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 as he ran out and as he has not left his car he has not been anywhere for repeat evaluation. [facility] Medical History Alcohol abuse Depression Former smoker Congestive heart failure (CHF) Lymphedema Ulcer of right lower extremity with fat layer exposed Ulcer of left lower extremity with fat layer exposed Home Medications ???Medication ???Instructions ???Recorded ???Last Taken ???Type furosemide 40 mg tablet (Lasix) 40 mg PO DAILY #30 tabs 09/22/22 0 07/09/23 Rx acetaminophen 325 mg tablet 650 mg (2 x 325 mg) PO Q6H PRN PRN 07/17/23 Unknown Rx Pain 1-10 Or Fever >100.7 #0 tabs apixaban 5 mg tablet 5 mg PO BID #60 tabs 07/17/23 Unkn own Rx metoprolol tartrate 25 mg tablet 25 mg PO BID #60 tabs 07/17/23 Unk nown Rx potassium chloride 20 mEq 20 meq PO DAILY #30 tabs 07/17/23 Unknown Rx tablet,extended release(part/cryst) sennosides 8.6 mg capsule (senna) 8.6 mg PO DAILY 10/10/23 Unknown History spironolactone 25 mg tablet 25 mg PO DAILY 10/10/23 Unknown Hi story Allergy/AdvReac Type Severity Reaction Status Date / Time No Known Allergies Allergy Verified 10/10/23 14:20 Family History no significant family his Social History household members: none housing: homeless Smoking Status: Former smoker ROS ROS ED Constitutional Constitutional ED: Reports other Details: Positive generalized fatigue ; Denies chills or fever(s) Eyes Eyes: Denies change in vision ENT ENT ED: Denies sore throat Cardiovascular Cardiovascular: Denies chest pain Respiratory/Chest Respiratory/Chest: Denies cough or dyspnea Gastrointestinal Gastrointestinal: Denies abdominal pain, diarrhea, nausea or vomiting Genitourinary Genitourinary ED: Denies dysuria Musculoskeletal Musculoskeletal: Reports myalgias Integumentary Reports other Details: Positive lower extremity wounds Neurologic Neurologic: Reports weakness; Denies headache(s) Psychiatric Psychiatric: Denies suicidal ideation or suicidal thoughts Hematologic/Lymphatic Hematologic/Lymphatic : Denies easy bleeding or easy bruising EXAM Physical Exam Const Vital Signs: 01/22/25 00:11 01/22/25 00:11 01/22/25 00:11 Temperature 98.4 F Temperature Source Core Pulse Rate 127 H 127 H Respiratory Rate 25 H 25 H Respiratory Effort Normal Respiratory Pattern Normal Blood Pressure 125/65 H 125/65 H Blood Pressure Mean 85 85 Pulse Ox 93 93 Oxygen Delivery Method Room Air Room Air 01/22/25 00:21 01/22/25 01:21 01/22/25 02:00 Temperature 98.4 F 98.5 F Temperature Source Core Core Pulse Rate 126 H 124 H 123 H Respiratory Rate 25 H 20 H 19 H Respiratory Effort Respiratory Pattern Blood Pressure 125/65 H 110/69 98/62 Blood Pressure Mean 85 82 74 Pulse Ox 98 93 98 Oxygen Delivery Method Room Air Room Air Room Air 01/22/25 02:17 01/22/25 03:00 01/22/25 04:00 Temperature 98.3 F 98.3 F 98.2 F Temperature Source Core Core Core Pulse Rate 117 H 120 H 124 H Respiratory Rate 19 H 19 H 19 H Respiratory Effort Respiratory Pattern Blood Pressure 108/92 H 121/73 H 96/61 Blood (more content not included)... Normal [facility] [place] [facility] Erythrocyte distribution wid th ratioOrdered By: See Bee on 01-22-2025 Erythrocyte distribution width (RBC) [Ratio] 12.5 % 11.6-14.6 [facility] Erythrocyte distribution wid th standard deviationOrdered By: See Cristal on 01-22-2025 Erythrocyte distribution width (RBC) [Ratio] 40.0 fl 35.1-43.9 [facility] Extremity Lower without Cont raon 01-22-2025 Extremity Lower without Contra [facility] Imaging Services [address] [place] [address] Extremity Lower without Contra MR#: [id number] Acct: [id number] Name: JAK TANNER Rep #: [id number] : 1955 M 69 From: Bayron Hunt MD PCP: [facility] Status: PRE ER Study: Extremity Lower without Contra Date of Exam: 0 01/22/25 Exam# [id number] Ordering Dr: See Bee DO PROCEDURE: EXTREMITY LOWER WITHOUT CONTRA 01/22/2025 REASON FOR EXAM: WOUND TECHNIQUE: Procedure Code: CTELWO Modality: CT Procedure: EXTREMITY LOWER WITHOUT CONTRA Coronal and Sagittal reconstruction series were provided. CONTRAST: VOLUME: mL One or more dose reduction techniques were used (e.g., Automated exposure control, adjustment of the mA and/or kV according to patient size, use of iterative reconstruction technique). FINDINGS: Subcutaneous emphysema is noted in the medial aspect of the left gluteus, adjacent to the gluteal cleft, and extends into the perineum. No focal fluid collection to suggest an abscess. Subcutaneous fat stranding is noted throughout the left thigh, nonspecific. No acute fracture. Moderate degenerative changes are noted in the pubic symphysis, and mild degenerative changes are noted within both hips. Severe degenerative changes are noted in the left knee, particularly the medial compartment. The remainder of the unenhanced CT appearance of the left thigh appears unremarkable. CT/Extremity Lower without Contra IMPRESSION: 1. Subcutaneous emphysema in the medial aspect of the left gluteus and extends to the perineum. No CT evidence of an abscess. 2. Nonspecific subcutaneous fat stranding throughout the left thigh. 3. Severe degenerative changes affecting the left knee, moderate degenerative changes of the pubic symphysis, and mild degenerative changes of both hips. Reading Location: [id number] CC: See Bee DO; [facility] Lumber Handler: Signed Normal [facility] Glomerular filtration rate ( GFR) estimation/1.73 sq m using serum, plasma, or whole bOrdered By: See Bee on 01-22-2025 GFR/1.73 sq M.predicted among non-blacks MDRD (S/P/Bld) [Vol rate/Area] 18 mL/min/{1.73_m2} Low >60 [facility] Comment on above: mL/min/1.73m2 CKD-EP I Creatinine Equation (2020) H AND Lui 01-22-2025 H AND P Normal [facility] HEMOGLOBIN A1Con 01-22-2025 Glucose [Mass/Vol] 114 mg/dL Normal 74-114 [facility] Comment on above: Performed By: #### 4 [id number] ####[facility] [address] [address] Wojciech Oneal M.D. [id number] HbA1c (Bld) [Mass fraction] 5.6 % Normal 4.2-5.6 [facility] Comment on above: Performed By: #### 4 [id number] ####[facility] [address] [address] Wojciech Oneal M.D. [id number] Hematocrit Auto (Bld) [Volum e fraction]Ordered By: See Bee on 01-22-2025 Hematocrit (Bld) [Volume fraction] 41.6 % 40-54 [facility] Hemoglobin measurementOrdere d By: See Bee on 01-22-2025 Hemoglobin (Bld) [Mass/Vol] 14.1 g/dL 13.0-16.5 [facility] Hyaline casts LM.LPF (Urine sed) [#/Area]Ordered By: See Bee on 01-22-2025 Hyaline casts (Urine sed) [#/Area] 0 /[LPF] 0-5 [facility] Ketones Test strip Ql (U)Ord ered By: See Bee on 01-22-2025 Ketones Ql (U) 5 mg/dl High Negative [facility] L509.7001on 01-22-2025 Procalcitonin 1.73 ng/mL High <=0.10 [facility] Comment on above: Result Comment: Inte rpretation: <0.10-0.25 ng/mL: Antibiotic therapy discouraged. Bacterial infection unlikely. 0.25-0.50 ng/mL: Antibiotic therapy encouraged. Bacterial infection possible. >0.50 ng/mL: Antibiotic therapy strongly encouraged. Suggestive of presence of bacterial infection. PCT should always be interpreted in the clinical context of the patient. Therefore, clinicians should use the PCT results in conjunction with other laboratory findings and clinical signs of the patient. Performed By: #### L 509.7001, L100.0100, L503.6005, L503.7505, L501.3620, L500.2500, L501.5200, L500.3400 #### [facility] [place] [facility] [address] [place], [address] Procalcitonin 1.95 ng/mL High <=0.10 [facility] [place] [facility] Comment on above: Order Comment: REDRA W. PREVIOUS SPECIMEN REJECTED DUE TO RESULTS NOT COMING THROUGH AND SEEM TO BE ERRONEOUS. 01/22/25219 Mora Patel. NOTIFIED DELMY FOR REDRAW Result Comment: REDR AW. PREVIOUS SPECIMEN REJECTED DUE TO RESULTS NOT COMING THROUGH AND SEEM TO BE ERRONEOUS. 01/22/25219 Mora Patel. NOTIFIED DELMY FOR REDRAW Interpretation: <0.10-0.25 ng/mL: Antibiotic therapy discouraged. Bacterial infection unlikely. 0.25-0.50 ng/mL: Antibiotic therapy encouraged. Bacterial infection possible. >0.50 ng/mL: Antibiotic therapy strongly encouraged. Suggestive of presence of bacterial infection. PCT should always be interpreted in the clinical context of the patient. Therefore, clinicians should use the PCT results in conjunction with other laboratory findings and clinical signs of the patient. Performed By: #### L 509.7001, L100.0100, L503.6005, L503.7505, L501.3620, L500.2500, L501.5200, L500.3400 #### [facility] [place] [facility] [address] [place], [place], [id number] LACTIC ACID, PLASMAon 2024 LACTIC ACID, PLASMA 1.2 mmol/L Normal 0.6-2.0 [facility] Comment on above: Performed By: #### 4 6053 ####[facility] [address], [place] [address] Wojciech Oneal M.D. [id number] LACTIC ACID, PLASMA 2.0 mmol/L Normal 0.6-2.0 [facility] Comment on above: Performed By: #### 4 6053 ####[facility] [address], [place] [address] Wojciech Oneal M.D. [id number] LACTIC ACID, PLASMA 1.5 mmol/L Normal 0.6-2.0 [facility] Comment on above: Performed By: #### 4 6053 ####[facility] [address], [place] [address] Wojciech Oneal M.D. [id number] Laboratory - Chemistry and C hemistry - challengeOrdered By: See Bee on 01-22-2025 AST [Catalytic activity/Vol] 124 U/L High <38 [facility] Lactic Acidon 01-22-2025 Lactate [Moles/Vol] 1.3 mmol/L Normal 0.0-2.0 [facility] Comment on above: Performed By: #### L 509.7001, L100.0100, L503.6005, L503.7505, L501.3620, L500.2500, L501.5200, L500.3400 #### [facility] [place] [facility] [address] [place], [place], [address] Lactate [Moles/Vol] 2.6 mmol/L Invalid Interpretation Code 0.0-2.0 [facility] [place] [facility] Comment on above: Order Comment: Y Result Comment: Crit ical Result(s) Called at: 01-22-25 00:43 TO [facility] EDWARDS by:MORA PATEL??Results read back by same. Performed By: #### L 509.7001, L100.0100, L503.6005, L503.7505, L501.3620, L500.2500, L501.5200, L500.3400 #### [facility] [place] [facility] [address] [place], [place], [address] Lactic acid measurementOrder ed By: See Bee on 01-22-2025 Lactate [Moles/Vol] 1.3 mmol/L 0.0-2.0 [facility] Liver Profileon 01-22-2025 Albumin [Mass/Vol] 2.4 g/dL Low 3.4-4.8 [facility] Comment on above: Order Comment: REDRA W. PREVIOUS SPECIMEN REJECTED DUE TO RESULTS NOT COMING THROUGH AND SEEM TO BE ERRONEOUS. 01/22/25219 Mora Patel. NOTIFIED DELMY FOR REDRAW Result Comment: AMENDED REPORT 01/22/25631 ALB previously reported as: 2.6 L g/dL Performed By: #### L 509.7001, L100.0100, L503.6005, L503.7505, L501.3620, L500.2500, L501.5200, L500.3400 #### [facility] [place] [facility] [address] [place], [address] Globulin (S) [Mass/Vol] 3.5 g/dL Normal 2.2-4.2 [facility] Comment on above: Order Comment: REDRA W. PREVIOUS SPECIMEN REJECTED DUE TO RESULTS NOT COMING THROUGH AND SEEM TO BE ERRONEOUS. 01/22/25219 Mora Patel. NOTIFIED DELMY FOR REDRAW Result Comment: AMENDED REPORT 01/22/25631 GLOB previously reported as: 3.3 g/dL Performed By: #### L 509.7001, L100.0100, L503.6005, L503.7505, L501.3620, L500.2500, L501.5200, L500.3400 #### [facility] [place] [facility] [address], [address] ALT [Catalytic activity/Vol] 65 U/L High <=46 [facility] [place] [facility] Comment on above: Result Comment: REDR AW. PREVIOUS SPECIMEN REJECTED DUE TO RESULTS NOT COMING THROUGH AND SEEM TO BE ERRONEOUS. 01/22/25 0220 Mora Patel. NOTIFIED DELMY FOR REDRAW Performed By: #### L 509.7001, L100.0100, L503.6005, L503.7505, L501.3620, L500.2500, L501.5200, L500.3400 #### [facility] [place] [facility] [address] [place], [address] ALB Normal 3.4-4.8 [facility] [place] [facility] Comment on above: Result Comment: MOVE D TO C58 Performed By: #### L 500.3400 #### [facility] [place] [facility] [address] [place], [address] ALK PHOS Normal 40-129 [facility] [place] [facility] Comment on above: Result Comment: MOVE D TO C58 Performed By: #### L 500.3400 #### [facility] [place] [facility] [address] [place], [address] ALT Normal <=46 [facility] [place] [facility] Comment on above: Result Comment: MOVE D TO C58 Performed By: #### L 500.3400 #### [facility] [place] [facility] [address] [place], [address] AST Normal <=37 [facility] Comment on above: Result Comment: MOVE D TO C58 Performed By: #### L 500.3400 #### [facility] [place] [facility] [address] [place], [address] D BILI Normal 0.00-0.30 [facility] [place] [facility] Comment on above: Result Comment: MOVE D TO C58 Performed By: #### L 500.3400 #### [facility] [place] [facility] [address] [place], [address] T BILI Normal 0.00-1.30 [facility] [place] [facility] Comment on above: Result Comment: MOVE D TO C58 Performed By: #### L 500.3400 #### [facility] [place] [facility] [address] [place], [address] T PROT Normal 5.9-8.4 [facility] Comment on above: Result Comment: MOVE D TO C58 Performed By: #### L 500.3400 #### [facility] [place] [facility] [address] [place], [address] ALB Normal 3.4-4.8 [facility] Comment on above: Result Comment: REDR AW. PREVIOUS SPECIMEN REJECTED DUE TO RESULTS NOT COMING THROUGH AND SEEM TO BE ERRONEOUS. 01/22/25219 Mora Patel. NOTIFIED DELMY FOR REDRAW Performed By: #### L 509.7001, L100.0100, L503.6005, L503.7505, L501.3620, L500.2500, L501.5200, L500.3400 #### [facility] [place] [facility] [address] [place], [address] ALK PHOS Normal 40-129 [facility] Comment on above: Result Comment: REDR AW. PREVIOUS SPECIMEN REJECTED DUE TO RESULTS NOT COMING THROUGH AND SEEM TO BE ERRONEOUS. 01/22/25219 Mora Patel. NOTIFIED DELMY FOR REDRAW Performed By: #### L 509.7001, L100.0100, L503.6005, L503.7505, L501.3620, L500.2500, L501.5200, L500.3400 #### [facility] [place] [facility] [address] [place], [address] AST Normal <=37 [facility] [place] [facility] Comment on above: Result Comment: REDR AW. PREVIOUS SPECIMEN REJECTED DUE TO RESULTS NOT COMING THROUGH AND SEEM TO BE ERRONEOUS. 01/22/25219 Mora Patel. NOTIFIED DELMY FOR REDRAW Performed By: #### L 509.7001, L100.0100, L503.6005, L503.7505, L501.3620, L500.2500, L501.5200, L500.3400 #### [facility] [place] [facility] [address] [place], [address] D BILI Normal 0.00-0.30 [facility] [place] [facility] Comment on above: Result Comment: REDR AW. PREVIOUS SPECIMEN REJECTED DUE TO RESULTS NOT COMING THROUGH AND SEEM TO BE ERRONEOUS. 01/22/25219 Mora Patel. NOTIFIED DELMY FOR REDRAW Performed By: #### L 509.7001, L100.0100, L503.6005, L503.7505, L501.3620, L500.2500, L501.5200, L500.3400 #### [facility] [place] [facility] [address] [place], [address] T BILI Normal 0.00-1.30 [facility] [place] [facility] Comment on above: Result Comment: REDR AW. PREVIOUS SPECIMEN REJECTED DUE TO RESULTS NOT COMING THROUGH AND SEEM TO BE ERRONEOUS. 01/22/25219 Mora Patel. NOTIFIED DELMY FOR REDRAW Performed By: #### L 509.7001, L100.0100, L503.6005, L503.7505, L501.3620, L500.2500, L501.5200, L500.3400 #### [facility] [place] [facility] [address] [place], [address] T PROT Normal 5.9-8.4 [facility] Comment on above: Result Comment: REDR AW. PREVIOUS SPECIMEN REJECTED DUE TO RESULTS NOT COMING THROUGH AND SEEM TO BE ERRONEOUS. 01/22/25219 Mora Patel. NOTIFIED DELMY FOR REDRAW Performed By: #### L 509.7001, L100.0100, L503.6005, L503.7505, L501.3620, L500.2500, L501.5200, L500.3400 #### [facility] [place] [facility] [address] [place], [address] MAGNESIUM LEVELon 01-22-2025 Magnesium [Mass/Vol] 2.2 mg/dL Normal 1.6-2.4 [facility] Comment on above: Performed By: #### 4 6109 ####[place] [address] [address] Wojciech Oneal M.D. [id number] MANUAL DIFFERENTIALon 2024 BASOPHILS - ABS (DIFF) 0.00 K/mcL Normal 0.00-0.30 [facility] Comment on above: Performed By: #### 4 5456 ####[place] [address] [address] Wojciech Oneal M.D. [id number] BASOPHILS - REL (DIFF) 0.0 % Normal [facility] Comment on above: Performed By: #### 4 5456 ####[place] [address] [address] Wojciech Oneal M.D. [id number] EOSINOPHILS - ABS (DIFF) 0.00 K/mcL Normal 0.00-0.50 [facility] Comment on above: Performed By: #### 4 5456 ####[place] [address] [address] Wojciech Oneal M.D. [id number] EOSINOPHILS - REL (DIFF) 0.0 % [facility] Comment on above: Performed By: #### 4 5456 ####[place] [address] [address] Wojciech Oneal M.D. [id number] LYMPHOCYTES - ABS (DIFF) 0.46 K/mcL Low 0.90-4.00 [facility] Comment on above: Performed By: #### 4 5456 ####[place] [address] [address] Wojciech Oneal M.D. [id number] LYMPHOCYTES - REL (DIFF) 4.0 % [facility] Comment on above: Result Comment: This is a corrected result. Previous result was 2.0 % on 01/22/2025 at 1732 EDT Performed By: #### 4 5456 ####[place] [address] [address] Wojciech Oneal M.D. [id number] METAMYELOCYTES-REL (DIFF) 1.0 % [facility] Comment on above: Performed By: #### 4 5456 ####[facility] [address] [address] Wojciech Oneal M.D. [id number] MONOCYTES - ABS (DIFF) 1.60 K/mcL High 0.30-0.90 [facility] Comment on above: Performed By: #### 4 5456 ####[facility] [address] [address] Wojciech Oneal M.D. [id number] MONOCYTES - REL (DIFF) 7.0 % Normal [facility] Comment on above: Performed By: #### 4 5456 ####[facility] [address] [address] Wojciech Oneal M.D. [id number] MYELOCYTES RELATIVE PERCENT 2.0 % [facility] Comment on above: Performed By: #### 4 5456 ####[facility] [address] [address] Wojciech Oneal M.D. [id number] NEUTROPHILS - ABS (DIFF) 20.76 K/mcL High 1.70-7.00 [facility] Comment on above: Performed By: #### 4 5456 ####[facility] [address] [address] Wojciech Oneal M.D. [id number] NEUTROPHILS - REL (DIFF) 86.0 % [facility] Comment on above: Performed By: #### 4 5456 ####[facility] [address] [address] Wojciech Oneal M.D. [id number] PROMYELOCYTES-REL (DIFF) Corrected [facility] Comment on above: Result Comment: This is a corrected result. Previous result was 2.0 % on 01/22/2025 at 1732 EDT Performed By: #### 4 5456 ####[facility] [address] [address] Wojciech Oneal M.D. [id number] BASOPHILS - ABS (DIFF) 0.00 K/mcL Normal 0.00-0.30 [facility] Comment on above: Performed By: #### 4 5456 ####[facility] [address] [address] Tuan Ascencio M.D. [id number] BASOPHILS - REL (DIFF) 0.0 % Normal [facility] Comment on above: Performed By: #### 4 5485 ####[facility] [address] [place] [address] Tuan Ascencio M.D. [id number] EOSINOPHILS - ABS (DIFF) 0.00 K/mcL Normal 0.00-0.50 [facility] Comment on above: Performed By: #### 4 5400 ####[facility] [address] [place] [address] Tuan Ascencio M.D. [id number] EOSINOPHILS - REL (DIFF) 0.0 % [facility] Comment on above: Performed By: #### 4 5415 ####[place] [address] Tuan Ascencio M.D. [id number] LYMPHOCYTE ATYPICAL - REL (DIFF) 1.0 % [facility] Comment on above: Performed By: #### 4 5484 ####[place] [address] Tuan Ascencio M.D. [id number] LYMPHOCYTES - ABS (DIFF) 1.13 K/mcL Normal 0.90-4.00 [facility] Comment on above: Performed By: #### 4 7469 ####[facility] [address] [place] [address] Tuan Ascencio M.D. [id number] LYMPHOCYTES - REL (DIFF) 4.0 % [facility] Comment on above: Performed By: #### 4 7532 ####[facility] [address] [place] [address] Tuan Ascencio M.D. [id number] METAMYELOCYTES-REL (DIFF) 2.0 % [facility] Comment on above: Performed By: #### 4 0178 ####[facility] [address] [place], [place] [address] Tuan Ascencio M.D. [id number] MONOCYTES - ABS (DIFF) 1.35 K/mcL High 0.30-0.90 [facility] Comment on above: Performed By: #### 4 5456 ####[facility] [address] [place], [place] [address] Tuan Ascencio M.D. [id number] MONOCYTES - REL (DIFF) 6.0 % Normal [facility] Comment on above: Performed By: #### 4 5456 ####[facility] [address] [place], [place] [address] Tuan Ascencio M.D. [id number] MYELOCYTES RELATIVE PERCENT 3.0 % [facility] Comment on above: Performed By: #### 4 5456 ####[facility] [address] [place], [place] [address] Tuan Ascencio M.D. [id number] NEUTROPHILS - ABS (DIFF) 20.05 K/mcL High 1.70-7.00 [facility] Comment on above: Result Comment: Neut rophilia with Left Shift Confirmed. Performed By: #### 4 5456 ####[place] [id number] Tuan Ascencio M.D. [id number] NEUTROPHILS - REL (DIFF) 84.0 % [facility] Comment on above: Performed By: #### 4 5456 ####[place] [id number] Tuan Ascencio M.D. [id number] MCV (mean corpuscular volume ) determinationOrdered By: See Bee on 01-22-2025 MCV (RBC) [Entitic vol] 87.8 fL 80-94 [facility] MORPHOLOGYon 01-22-2025 OVAL SCAN Moderate Normal [facility] Comment on above: Performed By: #### L AB295 ####[facility] [address] [address] Wojciech Oneal M.D. [id number] PLATELET ESTIMATE Normal [facility] Comment on above: Performed By: #### L AB295 ####[facility] [address] [address] Wojciech Oneal M.D. [id number] PLATELETS LARGE [facility] Comment on above: Performed By: #### L AB295 ####[facility] [address] [address] Wojciech Oneal M.D. [id number] POLY SCAN [facility] Comment on above: Performed By: #### L AB295 ####[facility] [address] [address] Wojciech Oneal M.D. [id number] RBC MORPH SCAN See [facility] Comment on above: Result Comment: RBC Indices confirmed with manual peripheral smear review. Performed By: #### L AB295 ####[facility] [address] [address] Wojciech Oneal M.D. [id number] OVAL SCAN [facility] Comment on above: Performed By: #### L AB295 ####[facility] [address] [place] [address] Tuan Ascencio M.D. [id number] PLATELET CLUMPS [facility] Comment on above: Performed By: #### L AB295 ####[facility] [address] [place] [address] Tuan Ascencio M.D. [id number] PLATELET ESTIMATE Normal [facility] Comment on above: Performed By: #### L AB295 ####[facility] [address] [place] [address] Tuan Ascencio M.D. [id number] PLATELETS LARGE [facility] Comment on above: Performed By: #### L AB295 ####[facility] [address] [place] [address] Tuan Ascencio M.D. [id number] POLY SCAN [facility] Comment on above: Performed By: #### L AB295 ####[facility] [address] [place] [address] Tuan Ascencio M.D. [id number] RBC MORPH SCAN See Comment [facility] Comment on above: Result Comment: RBC Indices confirmed with manual peripheral smear review. Performed By: #### L AB295 ####[facility] [address] [place] [address] Tuan Ascencio M.D. [id number] VACUOLATED GRANULOCYTES Present [facility] Comment on above: Performed By: #### L AB295 ####[facility] [address] [place] [address] Tuan Ascencio M.D. [id number] Magnesiumon 01-22-2025 Magnesium [Mass/Vol] 2.1 mg/dL Normal 1.5-2.2 [facility] Comment on above: Performed By: #### L 509.7001, L100.0100, L503.6005, L503.7505, L501.3620, L500.2500, L501.5200, L500.3400 #### [facility] [place] [facility] [address] [place], [address] Magnesium [Mass/Vol] 2.5 mg/dL High 1.5-2.2 [facility] Comment on above: Order Comment: REDRA W. PREVIOUS SPECIMEN REJECTED DUE TO RESULTS NOT COMING THROUGH AND SEEM TO BE ERRONEOUS. 01/22/25219 Mora Patel. NOTIFIED DELMY FOR REDRAW Result Comment: REDR AW. PREVIOUS SPECIMEN REJECTED DUE TO RESULTS NOT COMING THROUGH AND SEEM TO BE ERRONEOUS. 01/22/25219 Mora Patel. NOTIFIED DELMY FOR REDRAW Performed By: #### L 509.7001, L100.0100, L503.6005, L503.7505, L501.3620, L500.2500, L501.5200, L500.3400 #### [facility] [address] [place], [address] Magnesium measurement (mass/ volume)Ordered By: See Bee on 01-22-2025 Magnesium (Unsp spec) [Mass/Vol] 2.1 mg/dL 1.5-2.2 [facility] Mean corpuscular hemoglobin (MCH) determinationOrdered By: See Bee on 01-22-2025 MCH (RBC) [Entitic mass] 29.7 pg 27.0-32.0 [facility] Mean corpuscular hemoglobin concentration (MCHC) determinationOrdered By: See Bee on 01-22-2025 MCHC (RBC) [Mass/Vol] 33.9 g/dL 32-36 [facility] Mean platelet volume determi nationOrdered By: See Bee on 01-22-2025 Platelet mean volume (Bld) [Entitic vol] 9.3 fL 6.2-12.0 [facility] Microscopic analysis of urin e for red blood cells (RBC)Ordered By: See Bee on 01-22-2025 Microscopic analysis of urine for red blood cells (RBC) 0-5 SEEN /hpf 0-5 [facility] Mucus LM Ql (Urine sed)Order ed By: See Bee on 01-22-2025 Mucus Ql (Urine sed) 0 SEEN /hpf [facility] Natriuretic peptide.B prohor evaristo N-Terminal [Mass/volume] in Serum or PlasmaOrdered By: See Bee on 01-22-2025 Natriuretic peptide.B prohormone N-Terminal [Mass/Vol] 1427 pg/mL High <900 [facility] Comment on above: Heart Failure Unlike ly: < 300 pg/mLHeart Failure Likely< 50 Years: > 450 pg/mL50-75 Years: > 900 pg/mL>75 Years: > 1800 pg/mL Nitrite Test strip Ql (U)Ord ered By: See Bee on 01-22-2025 Nitrite Ql (U) Positive High Negative [facility] OP NOTEon 01-22-2025 OP NOTE Normal [facility] PERIPHERAL SMEAR REVIEW (LUISA HS ONLY)on 01-22-2025 SMEAR REVIEW See Comment Normal [facility] Comment on above: Result Comment: Smea r reviewed for possible immature cells. Performed By: #### C 87913 ####[facility] [address] [address] Tuan Ascencio M.D. [id number] PHOSPHORUSon 01-22-2025 Phosphate [Mass/Vol] 6.6 mg/dL High 2.3-3.7 [facility] Comment on above: Performed By: #### 4 6299 ####[facility] [address] [address] Wojciech Oneal M.D. [id number] POC ARTERIAL BLOOD GAS PANEL -[facility] 01-22-2025 BASE EXCESS, ARTERIAL -7.7 Low -2.0-2.0 [facility] Comment on above: Performed By: #### 4 8716 ####[facility] [address] [address] [id number] [facility] CALCIUM IONIZED 4.0 mg/dL Low 4.5-5.3 [facility] Comment on above: Performed By: #### 4 8716 ####[facility] [address] [address] [id number] [facility] CARBOXYHEMOGLOBIN 1.3 % of total Hb Normal <=1.5 [facility] Comment on above: Result Comment: Refe rence Ranges:[facility] Non-smokers: <1.5%Smokers: 1.5-5.0%Heavy Smokers: 5.0-9.0% Performed By: #### 4 8716 ####[facility] [address] [address] [id number] [facility] Chloride [Moles/Vol] 105 mmol/L Normal 98-108 [facility] Comment on above: Performed By: #### 4 8716 ####[facility] [address] [address] [id number] [facility] FIO2 50 Normal [facility] Comment on above: Performed By: #### 4 8716 ####[facility] [address] [address] [id number] [facility] Glucose [Mass/Vol] 120 mg/dL High 65-99 [facility] Comment on above: Performed By: #### 4 8716 ####[facility] [address] [place] [address] [id number] [facility] HCO3 (Bld) [Moles/Vol] 19.2 mmol/L Low 22.0-26.0 [facility] Comment on above: Performed By: #### 4 8716 ####[facility] [address] [place] [address] [id number] [facility] Hematocrit (Bld) [Volume fraction] 29.9 % Low 41.0-53.0 [facility] Comment on above: Performed By: #### 4 8716 ####[facility] [address] [address] [id number] [facility] Hemoglobin (Bld) [Mass/Vol] 9.8 g/dL Low 13.5-17.5 [facility] Comment on above: Performed By: #### 4 8716 ####[facility] [address] [place] [address] [id number] [facility] LACTIC ACID, WHOLE BLOOD 0.9 mmol/L Normal 0.6-2.0 [facility] Comment on above: Performed By: #### 4 8716 ####[facility] [address] [address] [id number] [facility] METHEMOGLOBIN < Normal 0.0-2.0 [facility] Comment on above: Performed By: #### 4 8716 ####[facility] [address] [place] [address] [id number] [facility] O2HB 97.6 % Normal 94.0-98.0 [facility] Comment on above: Performed By: #### 4 8716 ####[facility] [address] [address] [id number] [facility] Oxygen saturation in Blood 99.3 % High 92.0-99.0 [facility] Comment on above: Performed By: #### 4 8716 ####[facility] [address] [address] [id number] [facility] PCO2 ARTERIAL 43.9 mm Hg Normal 35.0-45.0 [facility] Comment on above: Performed By: #### 4 8716 ####[facility] [address] [place] [address] [id number] [facility] PEEP RAD 10 [facility] Comment on above: Performed By: #### 4 8716 ####[facility] [address] [place] [address] [id number] [facility] PH ARTERIAL 7.25 Low 7.35-7.45 [facility] Comment on above: Performed By: #### 4 8716 ####[facility] [address] [address] [id number] [facility] PO2 ARTERIAL 162 mm Hg High 75-85 [facility] Comment on above: Performed By: #### 4 8716 ####[facility] [address] [address] [id number] [facility] Potassium [Moles/Vol] 3.6 mmol/L Normal 3.5-5.1 [facility] Comment on above: Performed By: #### 4 8716 ####[facility] [address] [place] [address] [id number] [facility] RESP RATE RAD 16 [facility] Comment on above: Performed By: #### 4 8716 ####[facility] [address] [address] [id number] [facility] Sodium [Moles/Vol] 132 mmol/L Low 135-145 [facility] Comment on above: Performed By: #### 4 8716 ####[facility] [address] [place] [address] [id number] [facility] TIDAL VOLUME RAD 450 [facility] Comment on above: Performed By: #### 4 8716 ####[facility] [address] [address] [id number] [facility] BASE EXCESS, ARTERIAL -7.9 Low -2.0-2.0 [facility] [facility] Comment on above: Order Comment: Criti johnie result acted upon time of test. Test performed at bedside. Performed By: #### 4 [id number] ####[facility] [address] [address] [id number] [facility] CALCIUM IONIZED 4.3 mg/dL Low 4.5-5.3 [facility] Comment on above: Order Comment: Criti johnie result acted upon time of test. Test performed at bedside. Performed By: #### 4 [id number] ####[facility] [address] [address] [id number] [facility] CARBOXYHEMOGLOBIN 1.3 % of total Hb Normal <=1.5 [facility] Comment on above: Order Comment: Criti johnie result acted upon time of test. Test performed at bedside. Result Comment: Refe rence Ranges:Suburb Non-smokers: <1.5%Smokers: 1.5-5.0%Heavy Smokers: 5.0-9.0% Performed By: #### 4 [id number] ####[facility] [address] [address] [id number] [facility] FIO2 100 Normal [facility] Comment on above: Order Comment: Criti johnie result acted upon time of test. Test performed at bedside. Performed By: #### 4 [id number] ####[facility] [address] [address] [id number] [facility] Glucose [Mass/Vol] 134 mg/dL High 65-99 [facility] Comment on above: Order Comment: Criti johnie result acted upon time of test. Test performed at bedside. Performed By: #### 4 [id number] ####[facility] [address] [address] [id number] [facility] HCO3 (Bld) [Moles/Vol] 20.4 mmol/L Low 22.0-26.0 [facility] Comment on above: Order Comment: Criti johnie result acted upon time of test. Test performed at bedside. Performed By: #### 4 [id number] ####[facility] [address] [address] [id number] [facility] Hematocrit (Bld) [Volume fraction] 33.3 % Low 41.0-53.0 [facility] Comment on above: Order Comment: Criti johnie result acted upon time of test. Test performed at bedside. Performed By: #### 4 [id number] ####[facility] [address] [address] [id number] [facility] Hemoglobin (Bld) [Mass/Vol] 10.8 g/dL Low 13.5-17.5 [facility] Comment on above: Order Comment: Criti johnie result acted upon time of test. Test performed at bedside. Performed By: #### 4 [id number] ####[facility] [address] [address] [id number] [facility] LACTIC ACID, WHOLE BLOOD 1.7 mmol/L Normal 0.6-2.0 [facility] Comment on above: Order Comment: Criti johnie result acted upon time of test. Test performed at bedside. Performed By: #### 4 [id number] ####[facility] [address] [address] [id number] [facility] METHEMOGLOBIN 0.8 % Normal 0.0-2.0 [facility] Comment on above: Order Comment: Criti johnie result acted upon time of test. Test performed at bedside. Performed By: #### 4 [id number] ####[facility] [address] [address] [id number] [facility] O2HB 97.3 % Normal 94.0-98.0 [facility] Comment on above: Order Comment: Criti johnie result acted upon time of test. Test performed at bedside. Performed By: #### 4 [id number] ####[facility] [address] [address] [id number] [facility] Oxygen saturation in Blood 99.4 % High 92.0-99.0 [facility] Comment on above: Order Comment: Criti johnie result acted upon time of test. Test performed at bedside. Performed By: #### 4 [id number] ####[facility] [address] [address] [id number] [facility] PCO2 ARTERIAL 57.7 mm Hg High 35.0-45.0 [facility] Comment on above: Order Comment: Criti johnie result acted upon time of test. Test performed at bedside. Performed By: #### 4 [id number] ####[facility] [address] [address] [id number] [facility] PH ARTERIAL 7.18 Off scale low 7.35-7.45 [facility] Comment on above: Order Comment: Criti johnie result acted upon time of test. Test performed at bedside. Performed By: #### 4 [id number] ####[facility] [address] [address] [id number] [facility] PO2 ARTERIAL 255 mm Hg High 75-85 [facility] Comment on above: Order Comment: Criti johnie result acted upon time of test. Test performed at bedside. Performed By: #### 4 [id number] ####[facility] [address] [address] [id number] [facility] Potassium [Moles/Vol] 3.8 mmol/L Normal 3.5-5.1 [facility] Comment on above: Order Comment: Criti johnie result acted upon time of test. Test performed at bedside. Performed By: #### 4 [id number] ####[facility] [address] [address] [id number] [facility] Sodium [Moles/Vol] 130 mmol/L Low 135-145 [facility] Comment on above: Order Comment: Criti johnie result acted upon time of test. Test performed at bedside. Performed By: #### 4 [id number] ####[facility] [address] [address] [id number] [facility] BASE EXCESS, ARTERIAL -10.9 Low -2.0-2.0 [facility] Comment on above: Order Comment: Criti johnie result acted upon time of test. Test performed at bedside. CALCIUM IONIZED 4.3 mg/dL Low 4.5-5.3 [facility] Comment on above: Order Comment: Criti johnie result acted upon time of test. Test performed at bedside. CARBOXYHEMOGLOBIN 1.0 % of total Hb Normal <=1.5 [facility] Comment on above: Order Comment: Criti johnie result acted upon time of test. Test performed at bedside. Result Comment: Refe chingce Ranges:Suburban Non-smokers: <1.5%Smokers: 1.5-5.0%Heavy Smokers: 5.0-9.0% Chloride [Moles/Vol] 103 mmol/L Normal 98-108 [facility] Comment on above: Order Comment: Criti johnie result acted upon time of test. Test performed at bedside. Glucose [Mass/Vol] 135 mg/dL High 65-99 [facility] Comment on above: Order Comment: Criti johnie result acted upon time of test. Test performed at bedside. HCO3 (Bld) [Moles/Vol] 17.6 mmol/L Low 22.0-26.0 [facility] Comment on above: Order Comment: Criti johnie result acted upon time of test. Test performed at bedside. Hematocrit (Bld) [Volume fraction] 31.6 % Low 41.0-53.0 [facility] Comment on above: Order Comment: Criti johnie result acted upon time of test. Test performed at bedside. Hemoglobin (Bld) [Mass/Vol] 10.3 g/dL Low 13.5-17.5 [facility] Comment on above: Order Comment: Criti johnie result acted upon time of test. Test performed at bedside. LACTIC ACID, WHOLE BLOOD 2.6 mmol/L High 0.6-2.0 [facility] Comment on above: Order Comment: Criti johnie result acted upon time of test. Test performed at bedside. METHEMOGLOBIN < Normal 0.0-2.0 [facility] Comment on above: Order Comment: Criti johnie result acted upon time of test. Test performed at bedside. O2HB 96.8 % Normal 94.0-98.0 [facility] Comment on above: Order Comment: Criti johnie result acted upon time of test. Test performed at bedside. Oxygen saturation in Blood 98.7 % Normal 92.0-99.0 [facility] Comment on above: Order Comment: Criti johnie result acted upon time of test. Test performed at bedside. PCO2 ARTERIAL 50.2 mm Hg High 35.0-45.0 [facility] Comment on above: Order Comment: Criti johnie result acted upon time of test. Test performed at bedside. PH ARTERIAL 7.15 Off scale low 7.35-7.45 [facility] Comment on above: Order Comment: Criti johnie result acted upon time of test. Test performed at bedside. PO2 ARTERIAL 182 mm Hg High 75-85 [facility] Comment on above: Order Comment: Criti johnie result acted upon time of test. Test performed at bedside. Potassium [Moles/Vol] 4.1 mmol/L Normal 3.5-5.1 [facility] Comment on above: Order Comment: Criti johnie result acted upon time of test. Test performed at bedside. RESULT NOTIFICATION critical results given to treating OR anesthesiolo Normal [facility] Comment on above: Order Comment: Criti johnie result acted upon time of test. Test performed at bedside. Sodium [Moles/Vol] 131 mmol/L Low 135-145 [facility] Comment on above: Order Comment: Criti johnie result acted upon time of test. Test performed at bedside. POC GLUCOSE - [facility] 025 Glucose [Mass/Vol] 141 mg/dL [address] [place] [address] [place] [address] Comment on above: Performed By: #### 4 [id number] ####[facility] [address] [address] [id number] [facility] Glucose [Mass/Vol] 146 mg/dL [address] Comment on above: Performed By: #### 4 [id number] ####[facility] [address] [address] [id number] [facility] POC VENOUS BLOOD GAS PANEL-P ULM - [facility] 01-22-2025 BASE EXCESS, VENOUS -8.9 Low -2.0-2.0 [facility] Comment on above: Order Comment: Criti johnie result acted upon time of test. Test performed at bedside. CALCIUM IONIZED 4.2 mg/dL Low 4.5-5.3 [facility] Comment on above: Order Comment: Criti johnie result acted upon time of test. Test performed at bedside. CARBOXYHEMOGLOBIN 1.2 % of total Hb Normal <=1.5 [facility] Comment on above: Order Comment: Criti johnie result acted upon time of test. Test performed at bedside. Result Comment: Refe arleth Ranges:Suburban Non-smokers: <1.5%Smokers: 1.5-5.0%Heavy Smokers: 5.0-9.0% Chloride [Moles/Vol] 99 mmol/L Normal 98-108 [facility] Comment on above: Order Comment: Criti johnie result acted upon time of test. Test performed at bedside. Glucose [Mass/Vol] 124 mg/dL High 65-99 [facility] Comment on above: Order Comment: Criti johnie result acted upon time of test. Test performed at bedside. HCO3 (Bld) [Moles/Vol] 20.8 mmol/L Low 24.0-28.0 [facility] Comment on above: Order Comment: Criti johnie result acted upon time of test. Test performed at bedside. Hematocrit (Bld) [Volume fraction] 40.4 % Low 41.0-53.0 [facility] Comment on above: Order Comment: Criti johnie result acted upon time of test. Test performed at bedside. Hemoglobin (Bld) [Mass/Vol] 13.2 g/dL Low 13.5-17.5 [facility] Comment on above: Order Comment: Criti johnie result acted upon time of test. Test performed at bedside. LACTIC ACID, WHOLE BLOOD 2.4 mmol/L High 0.6-2.0 [facility] Comment on above: Order Comment: Criti johnie result acted upon time of test. Test performed at bedside. METHEMOGLOBIN < Normal 0.0-2.0 [facility] Comment on above: Order Comment: Criti johnie result acted upon time of test. Test performed at bedside. O2HB 39.5 % Normal No established reference range [facility] Comment on above: Order Comment: Criti johnie result acted upon time of test. Test performed at bedside. Oxygen saturation in Blood 40.3 % Normal 40.0-70.0 [facility] Comment on above: Order Comment: Criti johnie result acted upon time of test. Test performed at bedside. PCO2 VENOUS 61.0 mm Hg High 41.0-51.0 [facility] Comment on above: Order Comment: Criti johnie result acted upon time of test. Test performed at bedside. PH VENOUS 7.14 Off scale low 7.32-7.42 [facility] Comment on above: Order Comment: Criti johnie result acted upon time of test. Test performed at bedside. PO2 VENOUS 31 mm Hg Normal 25-40 [facility] Comment on above: Order Comment: Criti johnie result acted upon time of test. Test performed at bedside. Potassium [Moles/Vol] 4.1 mmol/L Normal 3.5-5.1 [facility] Comment on above: Order Comment: Criti johnie result acted upon time of test. Test performed at bedside. RESULT NOTIFICATION critical results given to treating OR anesthesiolo Normal [facility] Comment on above: Order Comment: Criti johnie result acted upon time of test. Test performed at bedside. Sodium [Moles/Vol] 131 mmol/L Low 135-145 [facility] Comment on above: Order Comment: Criti johnie result acted upon time of test. Test performed at bedside. Platelet countOrdered By: Yumiko Bee on 01-22-2025 Platelets (Bld) [#/Vol] 358 10*3/uL 150-450 [facility] [place] [facility] Potassium measurement (mass/ volume)Ordered By: See Bee on 01-22-2025 Potassium (Unsp spec) [Mass/Vol] 4.1 mmol/L 3.3-5.1 [facility] [place] [facility] Pro- Brain NATRIURETIC PEPTI Ashlee 01-22-2025 Natriuretic peptide B (Bld) [Mass/Vol] 1427 pg/mL High <=900 [facility] [place] [facility] Comment on above: Result Comment: Hear t Failure Unlikely: < 300 pg/mL Heart Failure Likely < 50 Years: > 450 pg/mL 50-75 Years: > 900 pg/mL >75 Years: > 1800 pg/mL Performed By: #### L 509.7001, L100.0100, L503.6005, L503.7505, L501.3620, L500.2500, L501.5200, L500.3400 #### [facility] [place] [facility] [address] [place], [address] Natriuretic peptide B (Bld) [Mass/Vol] 1765 pg/mL High <=900 [facility] [place] [facility] Comment on above: Order Comment: REDRA W. PREVIOUS SPECIMEN REJECTED DUE TO RESULTS NOT COMING THROUGH AND SEEM TO BE ERRONEOUS. 01/22/25219 Mora Patel. NOTIFIED DELMY FOR REDRAW Result Comment: REDR AW. PREVIOUS SPECIMEN REJECTED DUE TO RESULTS NOT COMING THROUGH AND SEEM TO BE ERRONEOUS. 01/22/25219 Mora Patel. NOTIFIED DELMY FOR REDRAW Heart Failure Unlikely: < 300 pg/mL Heart Failure Likely < 50 Years: > 450 pg/mL 50-75 Years: > 900 pg/mL >75 Years: > 1800 pg/mL Performed By: #### L 509.7001, L100.0100, L503.6005, L503.7505, L501.3620, L500.2500, L501.5200, L500.3400 #### [facility] [place] [facility] [address] [place], [address] Procalcitonin [Mass/volume] in Serum or Plasma by ImmunoassayOrdered By: See Bee on 01-22-2025 Procalcitonin IA [Mass/Vol] 1.73 ng/mL High <0.11 [facility] [place] [facility] Comment on above: Interpretation:<0.10 -0.25 ng/mL: Antibiotic therapy discouraged. Bacterial infection unlikely.0.25-0.50 ng/mL: Antibiotic therapy encouraged. Bacterial infection possible.>0.50 ng/mL: Antibiotic therapy strongly encouraged. Suggestive of presence of bacterial infection.PCT should always be interpreted in the clinical context of the patient. Therefore, clinicians should use the PCT results in conjunction with other laboratory findings and clinical signs of the patient. Protein Test strip Ql (U)Ord ered By: See Bee on 01-22-2025 Protein Ql (U) 30 mg/dl High Negative [facility] [place] [facility] RBC Auto (Bld) [#/Vol]Ordere d By: See Bee on 01-22-2025 RBC (Bld) [#/Vol] 4.74 10*6/uL 4.6-6.2 [facility] Review by pathologistOrdered By: See Bee on 01-22-2025 Pathologist review Vishal (Unsp spec) [Interp] September [facility] [place] [facility] Serum creatinine measurement (mass/volume)Ordered By: See Bee on 01-22-2025 Creatinine [Mass/Vol] 3.55 mg/dL High 0.70-1.20 [facility] Serum globulin measurementOr dered By: See Bee on 01-22-2025 Globulin (S) [Mass/Vol] 3.5 g/dL 2.2-4.2 [facility] Comment on above: Previous reported re sult: 3.3 g/dLEdited by: JAY on 01/22/25:0632 AMENDED REPORT 01/22/25 0632 GLOB previously reported as: 3.3 g/dL Serum glucose measurement (m ass/volume)Ordered By: See Bee on 01-22-2025 Glucose [Mass/Vol] 121 mg/dL High 70-99 [facility] Serum or plasma alanine cowan otransferase (ALT) measurementOrdered By: See Bee on 01-22-2025 ALT [Catalytic activity/Vol] 50 U/L High <47 [facility] [place] [facility] Serum or plasma albumin evelio urement (mass/volume)Ordered By: See Bee on 01-22-2025 Albumin [Mass/Vol] 2.4 g/dL Low 3.4-4.8 [facility] Comment on above: Previous reported re sult: 2.6 g/dLEdited by: JAY on 01/22/25:0632 AMENDED REPORT 01/22/25631 ALB previously reported as: 2.6 L g/dL Serum or plasma alkaline nilda sphatase measurementOrdered By: See Bee on 01-22-2025 ALP [Catalytic activity/Vol] 67 U/L 40-129 [facility] [place] [facility] Serum or plasma calcium evelio urement (mass/volume)Ordered By: See Bee on 01-22-2025 Calcium [Mass/Vol] 7.2 mg/dL Low 7.6-11.0 [facility] Serum or plasma creatine kin ase activityOrdered By: See Bee on 01-22-2025 CK [Catalytic activity/Vol] 3791 U/L High 24-195 [facility] [place] [facility] Serum or plasma urea nitroge n measurement (mass/volume)Ordered By: See Bee on 01-22-2025 Urea nitrogen [Mass/Vol] 59 mg/dL High 4-19 [facility] [place] [facility] Sodium levelOrdered By: Kalpesh Bee on 01-22-2025 Sodium [Moles/Vol] 129 mmol/L Low 133-145 [facility] Squamous epithelial cells de tection in urine sediment by light microscopyOrdered By: See Bee on 01-22-2025 Epithelial cells.squamous LM Ql (Urine sed) 0-5 SEEN /hpf 0-5 [facility] [place] [facility] TISSUE AEROBIC AND ANAEROBIC CULTUREon 01-22-2025 TISSUE AEROBIC AND ANAEROBIC CULTURE CULTURE BACTEROIDES FRAGILIS Moderate Growth Bacteroides fragilis Heavy Growth Normal Enteric Cordelia GRAM STAIN RESULT Few WBC Many RBC Many Gram Negative Bacilli Moderate Gram Positive Cocci Abnormal [facility] Comment on above: Performed By: #### 4 [id number] ####[facility] [address] [place] [address] Tuan Ascencio M.D. [id number] TISSUE EXAMon 01-22-2025 TISSUE EXAM [facility] Comment on above: Performed By: #### 4 7015 ####[facility] [address] [address] Wojciech Oneal M.D. [id number] [facility] [address] [place] [address] Tuan Ascencio M.D. [id number] TRIGLYCERIDESon 01-22-2025 Triglyceride [Mass/Vol] 93 mg/dL Normal 30-150 [facility] Comment on above: Result Comment: Vaishnavi onal Cholesterol Education Program Guidelines: TriglycerideNormal: <150 mg/dLBorderline High: 150-199 mg/dLHigh: 200-499 mg/dLVery High: greater than or equal to 500 mg/dL Performed By: #### 4 6606 ####[facility] [address] [address] Wojciech Oneal M.D. [id number] TYPE AND SCREENon 01-22-2025 TYPE AND SCREEN ABORH: O Positive AB SCREEN: Negative EXPIRATION DATE: 01/25/2025 23:59 EST [facility] Comment on above: Performed By: #### 4 6619 ####[facility] [address] [address] Radha Kelsey MD [id number] GMCTS Total cell countOrdered By: See Bee on 01-22-2025 Cells counted Molgen (Bld/Tiss) [#] 100 MANUAL DIFF [facility] Total proteinOrdered By: Mark Bee on 01-22-2025 Protein [Mass/Vol] 5.9 g/dL 5.9-8.4 [facility] Urinalysis, Completeon 01-22 CAST,HYALINE 0-5 SEEN Normal 0-5 [facility] [place] [facility] Comment on above: Order Comment: REDRA W. PREVIOUS SPECIMEN REJECTED DUE TO RESULTS NOT COMING THROUGH AND SEEM TO BE ERRONEOUS. 01/22/25 0220 Mora Patel. NOTIFIED DELMY FOR REDRAW Performed By: #### L 509.7001, L100.0100, L503.6005, L503.7505, L501.3620, L500.2500, L501.5200, L500.3400 #### [facility] [place] [facility] [address] [place], [address] RBC 0-5 SEEN Normal 0-5 [facility] Comment on above: Order Comment: REDRA W. PREVIOUS SPECIMEN REJECTED DUE TO RESULTS NOT COMING THROUGH AND SEEM TO BE ERRONEOUS. 01/22/25219 Mora Patel. NOTIFIED DELMY FOR REDRAW Performed By: #### L 509.7001, L100.0100, L503.6005, L503.7505, L501.3620, L500.2500, L501.5200, L500.3400 #### [facility] [place] [facility] [address] [place], [place], [id number] (214) WBC 10-25 SEEN Normal 0-5 [facility] Comment on above: Order Comment: REDRA W. PREVIOUS SPECIMEN REJECTED DUE TO RESULTS NOT COMING THROUGH AND SEEM TO BE ERRONEOUS. 01/22/25219 Mora Patel. NOTIFIED DELMY FOR REDRAW Performed By: #### L 509.7001, L100.0100, L503.6005, L503.7505, L501.3620, L500.2500, L501.5200, L500.3400 #### [facility] [place] [facility] [address] [place], [place], [address] ([address] BACTERIA 1+ /hpf Normal None Seen [facility] Comment on above: Order Comment: REDRA W. PREVIOUS SPECIMEN REJECTED DUE TO RESULTS NOT COMING THROUGH AND SEEM TO BE ERRONEOUS. 01/22/25219 Mora Patel. NOTIFIED DELMY FOR REDRAW Performed By: #### L 509.7001, L100.0100, L503.6005, L503.7505, L501.3620, L500.2500, L501.5200, L500.3400 #### [facility] [address] [place], [place], [address] EPI,SQUAMOUS 0-5 SEEN Normal 0-5 [facility] Comment on above: Order Comment: REDRA W. PREVIOUS SPECIMEN REJECTED DUE TO RESULTS NOT COMING THROUGH AND SEEM TO BE ERRONEOUS. 01/22/25219 Mora Patel. NOTIFIED DELMY FOR REDRAW Performed By: #### L 509.7001, L100.0100, L503.6005, L503.7505, L501.3620, L500.2500, L501.5200, L500.3400 #### [facility] [address] [place], [place], [address] Mucus Ql (Urine sed) 0 SEEN Normal [facility] Comment on above: Order Comment: REDRA W. PREVIOUS SPECIMEN REJECTED DUE TO RESULTS NOT COMING THROUGH AND SEEM TO BE ERRONEOUS. 01/22/25219 Mora Patel. NOTIFIED DELMY FOR REDRAW Performed By: #### L 509.7001, L100.0100, L503.6005, L503.7505, L501.3620, L500.2500, L501.5200, L500.3400 #### [facility] [address] [place], [place], [id number] Urine clarityOrdered By: Mark Bee on 01-22-2025 Clarity (U) Clear Clear [facility] Urine color determinationOrd ered By: See Bee on 01-22-2025 Color (U) Pili Yellow [facility] Urine glucose detectionOrder ed By: See Bee on 01-22-2025 Glucose Ql (U) Normal mg/dl Normal [facility] Urine leukocyte esterase det ection by dipstickOrdered By: See Bee on 01-22-2025 Leukocyte esterase Test strip Ql (U) 25 /ul High Negative [facility] Urine pHOrdered By: See garcia on 01-22-2025 pH (U) 5.0 [pH] 5.0 - 8.0 [facility] Urine sediment bacteria coun t by microscopy (number/high power field)Ordered By: See Bee on 01-22-2025 Bacteria LM.HPF (Urine sed) [#/Area] 1 /[HPF] None Seen [facility] Urine specific gravity measu rementOrdered By: See Bee on 01-22-2025 Specific gravity (U) [Rel density] 1.020 1.002-1.030 [facility] Urine urobilinogen measureme ntOrdered By: See Bee on 01-22-2025 Urobilinogen Ql (U) 4 mg/dl High Normal [facility] VANCOMYCIN LEVEL, RANDOMon 0 01-22-2025 VANCOMYCIN RANDOM 22.0 mcg/mL [facility] Comment on above: Order Comment: As of 02/2022 vancomycin dosing for [facility] inpatients will be done by Bayesian dosing software rather than off traditional trough values. Please contact the site specific inpatient pharmacy before making dose changes off of trough values alone for admitted patients.No established reference range. Performed By: #### 4 6651 ####[facility] [address] [place], [place] [address] Wojciech Oneal M.D. [id number] White blood cell (WBC) count Ordered By: See Bee on 01-22-2025 WBC (Bld) [#/Vol] 26.8 10*3/uL High 4.4-11.0 [facility] White blood cell countOrdere d By: See Bee on 01-22-2025 White blood cell count 10-25 SEEN /hpf 0-5 [facility] XR ABDOMEN /KUB/FLAT PLATE/1 VIEWon 01-22-2025 XR ABDOMEN /KUB/FLAT PLATE/1 VIEW [facility] Comment on above: Order Comment: Injur y/Trauma or Illness?:Illness/OtherHow long have you had these symptoms (acute/chronic)?:AcuteReason for exam?:OGT placementHistory of cancer?:unkSurgeries, chemotherapy, or radiation?:unkType of Exam?:InitialAdditional signs and symptoms?:na XR CHEST PA/APon 01-22-2025 XR CHEST PA/AP [facility] Comment on above: Order Comment: Injur y/Trauma or Illness?:Illness/OtherHow long have you had these symptoms (acute/chronic)?:AcuteReason for exam?:CVC placementHistory of cancer?:unkSurgeries, chemotherapy, or radiation?:unkType of Exam?:InitialAdditional signs and symptoms?:n/a XR CHEST PA/AP Normal [facility] Comment on above: Order Comment: Injur y/Trauma or Illness?:Illness/OtherHow long have you had these symptoms (acute/chronic)?:AcuteReason for exam?:ET tube placementHistory of cancer?:unkSurgeries, chemotherapy, or radiation?:unkType of Exam?:InitialAdditional signs and symptoms?:n/a Chest 1 View (Portable)on Chest 1 View (Portable) [facility] [facility] [address] [place] [address] Chest 1 View (Portable) MR#: [id number] Acct: [id number] Name: JAK TANNER Rep #: [id number] : 1955 M 69 From: Bayron Hunt MD PCP: [facility] Status: PRE ER Study: Chest 1 View (Portable) Date of Exam: 01/21/25 Exam# [id number] Ordering Dr: See Bee DO PROCEDURE: CHEST 1 VIEW (PORTABLE) 01/22/2025 REASON FOR EXAM: COUGH TECHNIQUE: Frontal view of the chest. FINDINGS: The lungs are clear. The cardiomediastinal silhouette appears borderline enlarged, with mild atherosclerotic calcification of the aortic knob.. No acute osseous abnormality. RAD/Chest 1 View (Portable) IMPRESSION: As above. Reading Location: [id number] CC: See Bee DO; [facility] Lumber Handler: Signed Normal [facility] Absolute lymphocyte countOrd ered By: Remus Moises on 07-12-2023 Lymphocytes Auto (Unsp spec) [#/Vol] 0.61 10*3/uL 0.83-4.51 [facility] Automated lymphocyte count a s percentage of total leukocytesOrdered By: Remus Ungryan on 07-12-2023 Lymphocytes/100 WBC Auto (Unsp spec) 5.3 % 19-41 [facility] Basophil percentageOrdered B y: Remus Ungur on 07-12-2023 Lactate [Moles/Vol] 0.8 mmol/L 0.4-2.0 [facility] Basophils/100 WBC (Bld) 0.4 % 0-1 [facility] Chloride [Moles/Vol] 109 mmol/L 98-107 [facility] Eosinophils/100 WBC (Bld) 1.0 % 0-5 [facility] Glucose [Mass/Vol] 102 mg/dL 74-106 [facility] Comment on above: Fasting Glucose resu lt from 100 to 125 mg/dL suggests IMPAIRED HOMEOSTASIS per A.D.A. criteria. Hemoglobin (Bld) [Mass/Vol] 12.7 g/dL 13.0-16.5 [facility] Lactate [Moles/Vol] 2.0 mmol/L 0.4-2.0 [facility] Comment on above: Critical Result(s) C alled at: 17:18:01 07/12/2023 by: Tristan Everett to Aminata Magdaleno. Results read back by same. Monocytes/100 WBC (Bld) 7.3 % 0-10 [facility] Neutrophils (Bld) [#/Vol] 9.8 10*3/uL 2.0-7.7 [facility] Neutrophils/100 WBC (Bld) 85.4 % 47-70 [facility] Potassium [Moles/Vol] 2.4 mmol/L 3.5-5.1 [facility] Comment on above: Critical Result(s) C alled at: 15:18:25 07/12/2023 by: Milton Wharton to Gaston GUERRA (ER). Results read back by same. Sodium [Moles/Vol] 141 mmol/L 136-145 [facility] WBC (Bld) [#/Vol] 11.4 10*3/uL 4.4-11.0 [facility] Determination of erythrocyte mean corpuscular volume (MCV)Ordered By: Nicola De Leon on 07-12-2023 MCV (RBC) [Entitic vol] 88.2 fL 80-94 [facility] Erythrocyte distribution wid th ratioOrdered By: Nicola De Leon on 07-12-2023 Erythrocyte distribution width (RBC) [Ratio] 12.8 % 11.6-14.6 [facility] Erythrocyte distribution wid th standard deviationOrdered By: Nicola De Leon on 07-12-2023 Erythrocyte distribution width (RBC) [Entitic vol] 41.9 fL 35.1-43.9 [facility] Gram stain for investigation of transfusion reactionOrdered By: Nicola De Leon on 07-12-2023 Microscopic observation Gram stain Nom (Unsp spec) [facility] Hematocrit Auto (Bld) [Volum e fraction]Ordered By: Nicola De Leon on 07-12-2023 Hematocrit (Bld) [Volume fraction] 39.0 % 40-54 [facility] Immature granulocytes/100 WB C Auto (Bld)Ordered By: [facility] on 07-12-2023 Immature granulocytes/100 WBC (Bld) 0.600 % 0.0-0.9 [facility] Comment on above: IG% - Immature Granu locytes (promyelocytes, myelocytes and metamyelocytes) > 1% indicates that a LEFT SHIFT is Present. Laboratory - Chemistry and C hemistry - challengeOrdered By: Nicola De Leon on 07-12-2023 CO2 [Moles/Vol] 26.0 mmol/L 21.0-32.0 [facility] Urea nitrogen/Creatinine [Mass ratio] 11.8 mg/mg 10-20 [facility] Laboratory - Hematology and Cell countsOrdered By: Nicola De Leon on 07-12-2023 MCH (RBC) [Entitic mass] 28.7 pg 27.0-32.0 [facility] MCHC (RBC) [Mass/Vol] 32.6 g/dL 32-36 [facility] Nucleated RBC/100 WBC (Bld) [Ratio] 0 % 0-5 [facility] Platelet mean volume (Bld) [Entitic vol] 9.0 fL 6.2-12.0 [facility] Platelets (Bld) [#/Vol] 309 10*3/uL 150-450 [facility] No Panel InformationOrdered By: Nicola D eLeon on 07-12-2023 Estimated Creatinine Clearance Calc 105.13 ml/min [facility] Estimated GFR (MDRD) Amer 93 mL/min >60 [facility] Comment on above: GFR Calc Estimated GFR (MDRD) Non-Af Amer 77 mL/min >60 [facility] Comment on above: Non- GFR Calc Methicillin-Resist S.aureus DNA PCR Negative Negative [facility] RBC Auto (Bld) [#/Vol]Ordere d By: Nicola De Leon on 07-12-2023 RBC (Bld) [#/Vol] 4.42 10*6/uL 4.6-6.2 [facility] Serum or plasma calcium evelio urement (mass/volume)Ordered By: Remus De Leon on 07-12-2023 Calcium [Mass/Vol] 9.0 mg/dL 8.5-10.1 [facility] Serum or plasma creatinine m easurement (mass/volume)Ordered By: [facility] on 07-12-2023 Creatinine [Mass/Vol] 1.02 mg/dL 0.70-1.30 [facility] Comment on above: The validity of the calculated GFR & GFRAA in patients over 70 years has not been determined. Clinical correlation is essential. Serum or plasma urea nitroge n measurement (mass/volume)Ordered By: Nicola De Leon on 07-12-2023 Urea nitrogen [Mass/Vol] 12 mg/dL 7-18 [facility] Staphylococcus aureus DNA de tection by probe and target amplification methodOrdered By: [facility] eD Leon on 07-12-2023 S. aureus DNA QASIM+probe Ql (Unsp spec) Positive Negative [facility] Thin prep Papanicolaou smear with manual screeningOrdered By: [facility] De [facility] on 07-12-2023 Thin prep Papanicolaou smear with manual screening 6 5-15 [facility] Absolute lymphocyte countOrd ered By: Marcus Sandoval on 07-02-2023 Lymphocytes Auto (Unsp spec) [#/Vol] 0.57 10*3/uL 0.83-4.51 [facility] Automated lymphocyte count a s percentage of total leukocytesOrdered By: Marcus Sandoval on 07-02-2023 Lymphocytes/100 WBC Auto (Unsp spec) 4.5 % 19-41 [facility] Basophil percentageOrdered B y: Marcus Sandoval on 07-02-2023 Basophils/100 WBC (Bld) 0.6 % 0-1 [facility] Bilirubin [Mass/Vol] 1.40 mg/dL 0.20-1.00 [facility] Comment on above: For patients on eltr ombopag therapy, use of Dimension Hobbs TBIL is not recommended. Chloride [Moles/Vol] 110 mmol/L 98-107 [facility] Eosinophils/100 WBC (Bld) 0.3 % 0-5 [facility] Glucose [Mass/Vol] 100 mg/dL 74-106 [facility] Comment on above: Fasting Glucose resu lt from 100 to 125 mg/dL suggests IMPAIRED HOMEOSTASIS per A.D.A. criteria. Hemoglobin (Bld) [Mass/Vol] 13.5 g/dL 13.0-16.5 [facility] Lactate [Moles/Vol] 2.1 mmol/L 0.4-2.0 [facility] Comment on above: Critical Result(s) C alled at: 17:20:42 07/02/2023 by: [facility] Valverde [facility] Results read back by same. Monocytes/100 WBC (Bld) 9.2 % 0-10 [facility] Neutrophils (Bld) [#/Vol] 10.7 10*3/uL 2.0-7.7 [facility] Neutrophils/100 WBC (Bld) 84.8 % 47-70 [facility] Potassium [Moles/Vol] 3.2 mmol/L 3.5-5.1 [facility] Protein [Mass/Vol] 8.4 g/dL 6.4-8.2 [facility] Sodium [Moles/Vol] 140 mmol/L 136-145 [facility] WBC (Bld) [#/Vol] 12.6 10*3/uL 4.4-11.0 [facility] Determination of erythrocyte mean corpuscular volume (MCV)Ordered By: Marcus Sandoval on 07-02-2023 MCV (RBC) [Entitic vol] 88.7 fL 80-94 [facility] Erythrocyte distribution wid th ratioOrdered By: Marcusromy Sandoval on 07-02-2023 Erythrocyte distribution width (RBC) [Ratio] 13.1 % 11.6-14.6 [facility] Erythrocyte distribution wid th standard deviationOrdered By: Marcusromy Sandoval on 07-02-2023 Erythrocyte distribution width (RBC) [Entitic vol] 42.4 fL 35.1-43.9 [facility] Erythrocyte sedimentation ra teOrdered By: Marcusromy Sandoval on 07-02-2023 ESR (Bld) [Velocity] 42 mm/h 0-20 [facility] Hematocrit Auto (Bld) [Volum e fraction]Ordered By: [facility] Jaime on 07-02-2023 Hematocrit (Bld) [Volume fraction] 41.4 % 40-54 [facility] Immature granulocytes/100 WB C Auto (Bld)Or[facility]: [facility] 07-02-[facility]23 Immature granulocytes/100 WBC (Bld) 0.600 % 0.0-0.9 [facility] Comment on above: IG% - Immature Granu locytes (promyelocytes, myelocytes and metamyelocytes) > 1% indicates that a LEFT SHIFT is Present. Laboratory - Chemistry and C hemistry - challengeOrdered By: [facility] on 07-02-2023 Albumin/Globulin [Mass ratio] 0.6 {ratio} 0.9-2.4 [facility] ALP [Catalytic activity/Vol] 63 U/L 45-117 [facility] ALT [Catalytic activity/Vol] 27 U/L 16-61 [facility] CO2 [Moles/Vol] 24.0 mmol/L 21.0-32.0 [facility] Globulin (S) [Mass/Vol] 5.2 g/dL 2.2-4.2 [facility] Urea nitrogen/Creatinine [Mass ratio] 14.8 mg/mg 10-20 [facility] Laboratory - Hematology and Cell countsOrdered By: [facility] on 07-02-2023 MCH (RBC) [Entitic mass] 28.9 pg 27.0-32.0 [facility] MCHC (RBC) [Mass/Vol] 32.6 g/dL 32-36 [facility] Nucleated RBC/100 WBC (Bld) [Ratio] 0 % 0-5 [facility] Platelet mean volume (Bld) [Entitic vol] 9.5 fL 6.2-12.0 [facility] Platelets (Bld) [#/Vol] 238 10*3/uL 150-450 [facility] No Panel InformationOrdered By: Marcusromy Sandoval on 07-02-2023 Estimated GFR (MDRD) Amer 81 mL/min >60 [facility] Comment on above: GFR Calc Estimated GFR (MDRD) Non-Af Amer 67 mL/min >60 [facility] Comment on above: Non- GFR Calc RBC Auto (Bld) [#/Vol]Ordere d By: Marcus Sandoval on 07-02-2023 RBC (Bld) [#/Vol] 4.67 10*6/uL 4.6-6.2 [facility] Serum or plasma calcium evelio urement (mass/volume)Ordered By: Marcus Sandoval on 07-02-2023 Calcium [Mass/Vol] 9.1 mg/dL 8.5-10.1 [facility] Serum or plasma creatinine m easurement (mass/volume)Ordered By: Marcus Sandoval on 07-02-2023 Creatinine [Mass/Vol] 1.15 mg/dL 0.70-1.30 [facility] Comment on above: The validity of the calculated GFR & GFRAA in patients over 70 years has not been determined. Clinical correlation is essential. Serum or plasma urea nitroge n measurement (mass/volume)Ordered By: Marcus Sandoval on 07-02-2023 Urea nitrogen [Mass/Vol] 17 mg/dL 7-18 [facility] Thin prep Papanicolaou smear with manual screeningOrdered By: Marcus Sandoval on 07-02-2023 Thin prep Papanicolaou smear with manual screening 3.2 g/dL 3.2-5.0 [facility] Thin prep Papanicolaou smear with manual screening 34 U/L 15-37 [facility] Thin prep Papanicolaou smear with manual screening 6 5-15 [facility] Bacteria identified Cx Nom ( Wound)Ordered By: Dr. Mckenzie on 09-26-2022 Wound Culture GNR non receptionist airline lounge [facility] Wound Culture Aerococcus viridans. [facility] Wound Culture Staphylococcus aureus [facility] Wound Culture Streptococcus group G [facility] Wound Culture Staphylococcus simulans [facility] Absolute lymphocyte countOrd ered By: Dr. Mckenzie on 09-22-2022 Lymphocytes Auto (Unsp spec) [#/Vol] 0.84 10*3/uL 0.83-4.51 [facility] Bacteria identified Cx Nom ( Wound)Ordered By: Cristhian Mckenzie on 09-22-2022 Wound Culture GNR non receptionist airline lounge [facility] Wound Culture Aerococcus viridans. [facility] Wound Culture Staphylococcus aureus [facility] Wound Culture Streptococcus group G [facility] Wound Culture Staphylococcus simulans [facility] Basophil percentageOrdered B y: Dr. Mckenzie on 09-22-2022 Basophils/100 WBC (Bld) 0.9 % 0-1 [facility] Chloride [Moles/Vol] 103 mmol/L 98-107 [facility] Eosinophils/100 WBC (Bld) 1.5 % 0-5 [facility] Glucose [Mass/Vol] 107 mg/dL 74-106 [facility] Comment on above: Fasting Glucose resu lt from 100 to 125 mg/dL suggests IMPAIRED HOMEOSTASIS per A.D.A. criteria. Neutrophils (Bld) [#/Vol] 7.1 10*3/uL 2.0-7.7 [facility] Neutrophils/100 WBC (Bld) 79.6 % 47-70 [facility] Potassium [Moles/Vol] 3.2 mmol/L 3.5-5.1 [facility] Sodium [Moles/Vol] 138 mmol/L 136-145 [facility] WBC (Bld) [#/Vol] 8.9 10*3/uL 4.4-11.0 [facility] Blood erythrocytes count (nu mber/volume)Ordered By: Dr. Mckenzie on 09-22-2022 RBC (Bld) [#/Vol] 4.45 10*6/uL 4.6-6.2 [facility] Blood hemoglobin measurement (mass/volume)Ordered By: Dr. Mckenzie on 09-22-2022 Hemoglobin (Bld) [Mass/Vol] 12.5 g/dL 13.0-16.5 [facility] Blood lymphocytes/100 leukoc ytesOrdered By: Dr. Mckenzie on 09-22-2022 Lymphocytes/100 WBC (Bld) 9.5 % 19-41 [facility] Blood monocytes/100 leukocyt esOrdered By: Dr. Mckenzie on 09-22-2022 Monocytes/100 WBC (Bld) 6.9 % 0-10 [facility] Blood platelet mean volumeOr dered By: Dr. Mckenzie on 09-22-2022 Platelet mean volume (Bld) [Entitic vol] 10.0 fL 6.2-12.0 [facility] Determination of erythrocyte mean corpuscular volume (MCV)Ordered By: Dr. Mckenzie on 09-22-2022 MCV (RBC) [Entitic vol] 89.2 fL 80-94 [facility] Gram stain for investigation of transfusion reactionOrdered By: Cristhian Mckenzie on 09-22-2022 Microscopic observation Gram stain Nom (Unsp spec) [facility] Gram stain for investigation of transfusion reactionOrdered By: Dr. Mckenzie on 09-22-2022 Microscopic observation Gram stain Nom (Unsp spec) [facility] Hematocrit Auto (Bld) [Volum e fraction]Ordered By: Dr. Mckenzie on 09-22-2022 Hematocrit (Bld) [Volume fraction] 39.7 % 40-54 [facility] Laboratory - Chemistry and C hemistry - challengeOrdered By: Dr. Mckenzie on 09-22-2022 CO2 [Moles/Vol] 30.0 mmol/L 21.0-32.0 [facility] Natriuretic peptide B (Bld) [Mass/Vol] 24.2 pg/mL 0-100 [facility] Urea nitrogen/Creatinine [Mass ratio] 15.4 mg/mg 10-20 [facility] Laboratory - Hematology and Cell countsOrdered By: Dr. Mckenzie on 09-22-2022 Erythrocyte distribution width (RBC) [Entitic vol] 45.7 fL 35.1-43.9 [facility] Erythrocyte distribution width (RBC) [Ratio] 14.1 % 11.6-14.6 [facility] Immature granulocytes/100 WBC (Bld) 1.600 % 0.0-0.9 [facility] Comment on above: IG% - Immature Granu locytes (promyelocytes, myelocytes and metamyelocytes) > 1% indicates that a LEFT SHIFT is Present. MCH (RBC) [Entitic mass] 28.1 pg 27.0-32.0 [facility] Nucleated RBC/100 WBC (Bld) [Ratio] 0 % 0-5 [facility] MCHC Auto (RBC) [Mass/Vol]Or dered By: Dr. Mckenzie on 09-22-2022 MCHC (RBC) [Mass/Vol] 31.5 g/dL 32-36 [facility] No Panel InformationOrdered By: Dr. Mckenzie on 09-22-2022 Estimated Creatinine Clearance Calc 87.36 ml/min [facility] Estimated GFR (MDRD) Amer 115 mL/min >60 [facility] Comment on above: GFR Calc Estimated GFR (MDRD) Non-Af Amer 95 mL/min >60 [facility] Comment on above: Non- GFR Calc Platelets bldOrdered By: Dr. Mckenzie on 09-22-2022 Platelets (Bld) [#/Vol] 236 10*3/uL 150-450 [facility] Serum or plasma calcium evelio urement (mass/volume)Ordered By: Dr. Mckenzie on 09-22-2022 Calcium [Mass/Vol] 9.2 mg/dL 8.5-10.1 [facility] Serum or plasma creatinine m easurement (mass/volume)Ordered By: Dr. Mckenzie on 09-22-2022 Creatinine [Mass/Vol] 0.85 mg/dL 0.70-1.30 [facility] Comment on above: The validity of the calculated GFR & GFRAA in patients over 70 years has not been determined. Clinical correlation is essential. Serum or plasma urea nitroge n measurement (mass/volume)Ordered By: Dr. Mckenzie on 09-22-2022 Urea nitrogen [Mass/Vol] 13 mg/dL 7-18 [facility] Thin prep Papanicolaou smear with manual screeningOrdered By: Dr. Mckenzie on 09-22-2022 Thin prep Papanicolaou smear with manual screening 5 5-15 [facility] Vital Signs Date Time Vital Sign Value Performing Clinician Johnathan gamboa 01-22-2025 06:00-0400 Diastolic blood pressure 63 mm[Hg] [facility] Work Phone: [facility] 01-22-2025 06:00-0400 Heart rate 113 /min [facility] Work Phone: [facility] 01-22-2025 06:00-0400 Respiratory rate 17 /min [facility] Work Phone: 0(009)089-210589 [place] [address] 01-22-2025 06:00-0400 SaO2% (BldA) [Mass fraction] 97 % [facility] Work Phone: 0(592)057-440889 [place] [address] 01-22-2025 06:00-0400 Systolic blood pressure 97 mm[Hg] [facility] Work Phone: 5(941)491-779389 [place] [address] 01-22-2025 05:31-0400 Body temperature 98.4 [degF] [facility] Work Phone: 0(064)450-081589 [place] [address] 01-22-2025 00:11-0400 Body height 180.34 cm [facility] Work Phone: 2(605)013-477789 [place] [address] 01-22-2025 00:11-0400 Body mass index (BMI) [Ratio] 51.9 kg/m2 [facility] Work Phone: 2(885)835-591589 [place] [address] 01-22-2025 00:11-0400 Body weight 168.9 kg [facility] Work Phone: 2(707)633-649489 [place] [address] 07-13-2023 00:32-0500 Body temperature 98.6 [degF] [facility] Work Phone: 8(380)886-437489 [place] [address] 07-13-2023 00:32-0500 Diastolic blood pressure 63 mm[Hg] [facility] Work Phone: 4(625)986-400189 [place] [address] 07-13-2023 00:32-0500 Heart rate 98 /min [facility] Work Phone: 6(400)587-491789 [place] [address] 07-13-2023 00:32-0500 Respiratory rate 18 /min [facility] Work Phone: 8(551)117-230989 [place] [address] 07-13-2023 00:32-0500 SaO2% (BldA) [Mass fraction] 94 % [facility] Work Phone: 5(871)469-168289 [place] [address] 07-13-2023 00:32-0500 Systolic blood pressure 114 mm[Hg] [facility] Work Phone: 7(492)493-814689 [place] [address] 07-12-2023 17:23-0500 Body height 180.34 cm [facility] Work Phone: [facility] 07-12-2023 17:23-0500 Body mass index (BMI) [Ratio] 49.7 kg/m2 [facility] Work Phone: [facility] 07-12-2023 17:23-0500 Body weight 161.79 kg [facility] Work Phone: [facility] 07-12-2023 16:00-0500 Body temperature 97.9 [degF] [facility] 07-12-2023 16:00-0500 Diastolic blood pressure 66 mm[Hg] [facility] 07-12-2023 16:00-0500 Heart rate 87 /min [facility] 07-12-2023 16:00-0500 Respiratory rate 16 /min [facility] 07-12-2023 16:00-0500 SaO2% (BldA) [Mass fraction] 97 % [facility] 07-12-2023 16:00-0500 Systolic blood pressure 119 mm[Hg] [facility] 07-12-2023 14:20-0500 Body mass index (BMI) [Ratio] 50 kg/m2 [facility] 07-12-2023 14:20-0500 Body weight 162.8 kg [facility] 07-12-2023 13:58-0500 Body height 180.34 cm [facility] 07-02-2023 20:41-0500 Body temperature 97.7 [degF] [facility] 07-02-2023 20:41-0500 Diastolic blood pressure 56 mm[Hg] [facility] 07-02-2023 20:41-0500 Heart rate 98 /min [facility] 07-02-2023 20:41-0500 Respiratory rate 17 /min [facility] 07-02-2023 20:41-0500 SaO2% (BldA) [Mass fraction] 95 % [facility] 07-02-2023 20:41-0500 Systolic blood pressure 127 mm[Hg] [facility] 07-02-2023 15:56-0500 Body height 180.34 cm [facility] 11-16-2022 10:05-0400 Body mass index (BMI) [Ratio] 47.4 kg/m2 Dr. Toño Heller Work Phone: 7(824)900-772689 [place] [address] 11-16-2022 10:05-0400 Body temperature 97.9 [degF] Dr. Toño Heller Work Phone: 5(208)711-057789 [place] [address] 11-16-2022 10:05-0400 Diastolic blood pressure 86 mm[Hg] Dr. Toño Heller Work Phone: 7(833)806-615689 [place] [address] 11-16-2022 10:05-0400 Heart rate 93 /min Dr. Toño Heller Work Phone: 7(619)167-169489 [place] [address] 11-16-2022 10:05-0400 Respiratory rate 16 /min Dr. Toño Heller Work Phone: 1(665)544-373289 [place] [address] 11-16-2022 10:05-0400 Systolic blood pressure 135 mm[Hg] Dr. Toño Heller Work Phone: 7(702)482-154589 [place] [address] 11-11-2022 01:33-0400 Body weight 154.[address] Toño Heller Work Phone: 6(948)200-808789 [place] [address] 11-02-2022 09:21-0400 Body mass index (BMI) [Ratio] 47.4 kg/m2 Dr. Toño Heller Work Phone: 1(503)576-784589 [place] [address] 11-02-2022 09:21-0400 Body temperature 97.7 [degF] Dr. Toño Heller Work Phone: 3(135)003-631489 [place] [address] 11-02-2022 09:21-0400 Diastolic blood pressure 94 mm[Hg] Dr. Toño Heller Work Phone: 7(270)326-099589 [place] [address] 11-02-2022 09:21-0400 Heart rate 91 /min Dr. Toño Heller Work Phone: 2(376)175-796589 [place] [address] 11-02-2022 09:21-0400 Respiratory rate 16 /min Dr. Toño Heller Work Phone: 8(924)862-489389 [place] [address] 11-02-2022 09:21-0400 Systolic blood pressure 165 mm[Hg] Dr. Toño Heller Work Phone: 9(381)196-230089 [place] [address] 10-12-2022 00:48-0400 Body weight 154.[address] Toño Heller Work Phone: 1(236)117-480889 [place] [address] 10-10-2022 09:53-0400 Body mass index (BMI) [Ratio] 47.4 kg/m2 Dr. Toño Heller Work Phone: 2(652)835-022189 [place] [address] 10-10-2022 09:53-0400 Body temperature 97.1 [degF] Dr. Toño Heller Work Phone: 8(361)455-428589 [place] [address] 10-10-2022 09:53-0400 Diastolic blood pressure 76 mm[Hg] Dr. Toño Heller Work Phone: 8(157)221-564789 [place] [address] 10-10-2022 09:53-0400 Heart rate 102 /min Dr. Toño Heller Work Phone: 8(685)232-035289 [place] [address] 10-10-2022 09:53-0400 Respiratory rate 18 /min Dr. Toño Heller Work Phone: 3(676)265-919489 [place] [address] 10-10-2022 09:53-0400 Systolic blood pressure 119 mm[Hg] Dr. Toño Heller Work Phone: 5(234)824-073589 [place] [address] 10-05-2022 09:08-0400 Body height 180.[address] Toño Heller Work Phone: 3(397)497-324089 [place] [address] 10-05-2022 09:08-0400 Body weight 154.[address] Toño Heller Work Phone: 5(008)799-408989 [place] [address] 09-22-2022 12:00-0400 Respiratory rate 22 /min [facility] 09-22-2022 08:19-0400 Body mass index (BMI) [Ratio] 49.1 kg/m2 [facility] 09-22-2022 08:19-0400 Body weight 160 kg [facility] 09-22-2022 08:05-0400 Body height 180.34 cm [facility] 09-22-2022 08:05-0400 Body temperature 97.8 [degF] [facility] 09-22-2022 08:05-0400 Diastolic blood pressure 75 mm[Hg] [facility] 09-22-2022 08:05-0400 Heart rate 99 /min [facility] 09-22-2022 08:05-0400 SaO2% (BldA) [Mass fraction] 96 % [facility] 09-22-2022 08:05-0400 Systolic blood pressure 124 mm[Hg] [facility] Encounters Encounter Date Encounter Type Care Provider Facility Start: 03-24-[address] [facility] Facility:[facility] Start: 03-17-[address] [facility] Facility:[facility] Start: 03-10-[address] [facility] Facility:[facility] Start: 03-03-2025 ambulatory Alyssa Gudla OLS Facili ty:[facility] Start: 02-27-2025 ambulatory [facility] Facility:[facility] Start: 02-24-2025 ambulatory Alyssa Gudla OLS Facili ty:[facility] Start: 02-19-2025 ambulatory Alyssa Gudla OLS Facili ty:[facility] Start: 01-22-2025 End: 02-18-2025 Evaluation and management of inpatient PROVIDER NOT IN SYSTEM [facility] Start: 01-22-2025 End: 01-26-2025 ambulatory PROVIDER NOT IN SYSTEM [facility] Start: 01-21-2025 End: 01-22-2025 Emergency department patient visit [facility] Work Phone: -Emergency Department Work Phone: Start: 04-21-2024 End: 05-09-2024 ambulatory Alejandro Sanders Facility:[facility] Start: 04-09-2024 End: 04-12-2024 ambulatory Myles Rebollar Facility:[facility] Start: 07-12-2023 Non-patient / Non-visit [facility] Work Phone: [facility] Work Phone: Start: 07-12-2023 [facility] Start: 07-12-2023 End: 07-12-2023 ambulatory [facility] Work Phone: [facility] Work Phone: Start: 07-12-2023 End: 07-12-2023 Discharged Recurring [facility] Work Phone: Start: 07-12-2023 Registered Recurring [facility] Work Phone: Start: 07-02-2023 End: 07-02-2023 [facility] Start: 11-16-2022 Non-patient / Non-visit Dr. Toño Heller Work Phone: [facility] Work Phone: Start: 11-16-2022 End: 11-17-[address] Toño Heller Work Phone: [facility] Work Phone: Start: 11-16-2022 End: 11-17-[address] Toño Heller Work Phone: [facility] Work Phone: Start: 11-02-2022 Non-patient / Non-visit Dr. Toño Heller Work Phone: [facility] Work Phone: Start: 11-02-2022 End: 11-10-[address] Toño Heller Work Phone: [facility] Work Phone: Start: 11-02-2022 End: 11-10-[address] Toño Heller [facility] Work Phone: Start: 10-26-2022 Non-patient / Non-visit Dr. Toño Heller Work Phone: [facility] Work Phone: Start: 10-19-2022 Non-patient / Non-visit Dr. Toño Heller Work Phone: [facility] Work Phone: Start: 10-12-2022 Non-patient / Non-visit Dr. Toño Heller Work Phone: [facility] Work Phone: Start: 10-10-2022 End: 10-11-[address] Toño Heller Work Phone: [facility] Work Phone: Start: 10-10-2022 End: 10-11-[address] [facility] Start: 10-05-2022 Non-patient / Non-visit Dr. Toño Heller Work Phone: [facility] Start: 09-22-2022 End: 09-22-2022 [facility] Procedures Date Procedure Procedure Detail Performing Clinician Start: 01-22-2025 MRI of lower extremity [facility] Work Phone: Start: 01-22-2025 Estimated creatinine clearance [facility] Work Phone: Start: 01-22-2025 Urnls dip stick/tabl et reagent auto microscopy [facility] Work Phone: Start: 01-22-2025 Flow cytometry cell surf marker techl only 1st [facility] Work Phone: Start: 01-22-2025 Reactive lymphocyte count [facility] Work Phone: Start: 01-21-2025 Plain chest X-ray [facility] Work Phone: Start: 07-12-2023 X-ray of both feet Start: 07-12-2023 Investigation of transfusion reaction Start: 07-02-2023 X-ray of both feet Start: 09-22-2022 Investigation of transfusion reaction Dr. Toño Heller Work Phone: Start: 09-22-2022 Microbial culture, routine Dr. Toño Heller Work Phone: Start: 09-22-2022 End: 09-22-2022 Radiography of ankle Microbial culture, routine D nannette Heller Work Phone: Plan of Treatment Date Care Activity Detail Author Start: 01-22-2025 Bacteria identified in Blood by Culture Blood Culture [facility] Start: 01-22-2025 Bacteria identified in Urine by Culture Urine Culture [facility] Start: 01-22-2025 [facility] Start: 01-22-2025 [facility] Start: 01-22-2025 [facility] Start: 07-13-2023 Blood chemistry [facility] Start: 07-12-2023 Referral to occupati onal therapist [facility] Start: 07-12-2023 Referral to service [facility] Start: 07-12-2023 Consultation [facility] Start: 07-12-2023 Following clinical p athway protocol [facility] Start: 07-12-2023 Assessment of risk o f venous thromboembolism [facility] Start: 07-12-2023 Catheterization of vein [facility] Start: 07-12-2023 Consultation for treatment [facility] Start: 07-12-2023 Insertion of cathete r into peripheral vein [facility] Start: 07-12-2023 MRI of lower extremity Lower Ext/No Jt/w/o [facility] Start: 07-12-2023 Providing care accor ding to standard [facility] Start: 07-12-2023 Provision of activit y privileges [facility] Start: 07-12-2023 Referral to process architect [facility] Start: 07-12-2023 [facility] Start: 07-12-2023 Verification routine [facility] Start: 07-12-2023 Admission procedure [facility] Start: 07-12-2023 End: 07-12-2023 Blood culture [facility] Start: 07-12-2023 [facility] Start: 07-12-2023 Bacteria identified in Blood by Culture Blood Culture [facility] Start: 07-12-2023 Wound Culture Wound Culture [facility] Start: 07-12-2023 Consultation [facility] Start: 07-12-2023 Patient referral to dietitian [facility] Start: 07-02-2023 [facility] Start: 07-02-2023 Referral to service [facility] Start: 09-22-2022 [facility] Anion gap measurement [facility] BUN/Creatinine ratio [facility] Calcium [Mass/volume ] in Serum or Plasma [facility] Carbon dioxide, tota l [Moles/volume] in Serum or Plasma [facility] Chloride [Moles/volu me] in Serum or Plasma [facility] Creatinine [Moles/vo lume] in Serum or Plasma [facility] Erythrocyte mean cor puscular volume determination [facility] Glucose [Mass/volume ] in Serum or Plasma [facility] Hematocrit [Volume F raction] of Blood [facility] Hemoglobin [Mass/vol ume] in Blood [facility] Leukocytes [#/volume ] in Blood [facility] Mean corpuscular hem oglobin concentration determination [facility] Mean corpuscular hem oglobin determination [facility] Measurement of renal function [facility] Microscopic observat ion [Identifier] in Unspecified specimen by Gram stain Gram Stain [facility] Neutrophil count [facility] Neutrophil percent differential count [facility] Patient Education [facility] Work Phone: Patient referral [facility] Work Phone: Platelets [#/volume] in Blood [facility] Potassium [Moles/vol ume] in Serum or Plasma [facility] Red blood cell count [facility] Red cell distributio n width determination [facility] Sodium [Moles/volume ] in Serum or Plasma [facility] Urea nitrogen [Mass/ volume] in Serum or Plasma [facility] Urine culture [facility] Vancomycin [Mass/vol ume] in Serum or Plasma --trough [facility] Wound Culture Wound Culture [facility] Wound microscopy, cu lture and sensitivities [facility] Immunizations Immunization Date Immunization Notes Care Provider Mello escamillashiloh 03-04-2022 Covid Moderna Bivale nt [employer]oster [facility] Work Phone: [facility] 05-31-2021 Covid (Moderna) [facility] Work Phone: [facility] 09-02-2020 Covid (Moderna) [facility] Work Phone: [facility]-05-2020 [facility] Work Phone: [facility] Payers Date Payer Category Payer Medicaid [id number] 2024 Self-pay [id number] 2024 Unknown [id number] 1955 Unknown [id number]. [id number] 1955 Unknown [id number]. 902 1955 Unknown [id number]. 902 Medicare MEDICARE PART A B [id number] Private Health Insurance [id number] Unknown SELF INS [employer] [id number] Unknown [id number]. 462 Unknown [id number] [id number]. 462 Unknown [id number] 2.16.840.1.274205.3.579.2. 462 Unknown [id number] [id number]. 462 Unknown [id number] 2.16.840.1.063098.3.579.2. 462 Unknown [id number] 2.16.840.1.856854.3.579.2. 462 Unknown [id number] 2.16.840.1.201896.3.579.2. 462 Unknown [id number] 2.16.840.1.958517.3.579.2. 462 Unknown [id number] 2.16.840.1.990159.3.579.2. 462 Unknown [id number] [id number]. 462 Social History Date Type Detail Facility Start: 09-22-2022 End: 07-12-2023 Tobacco smoking status HIIS Unknown if ever smoked [facility] Start: 10-01-2019 None [facility] Start: 10-01-2019 Alone [facility] Start: 11-12-2019 Non-smoker [facility] Start: 1955 Sex Assigned At Male [facility] Start: 01-22-2025 Tobacco smoking stat us HIIS Ex-smoker (finding) [facility] Medical Equipment Procedure Code Equipment Code Equipment Origin al Text Equipment Identifier Dates Debridement, wound Plant polysaccharide haemostatic agent, bioabsorbable ([id number] [facility] Start: 07-15-2023 Goals Date Patient Goal Desired Activity /State Functional Status Date Assessment Result Facility 07-12-2023 Functional status Ambulates [facility] Work Phone: Mental Status Date Assessment Result Facility 01-22-2025 Cognitive function Level Of Cons ciousness Awake;Alert;Appropriate;Follow s Commands [facility] Work Phone: 07-12-2023 Cognitive function Voice/Name [facility] Work Phone: 09-22-2022 Cognitive function Level Of Cons ciousness Awake;Alert;Appropriate;Follow s Commands [facility] Work Phone: Clinical Notes 09-22-2022 to 02-17-2025 Note Date & Type Note Facility 02-17-2025 [facility] 02-16[facility]25 [facility] 02-15-2025 [facility] 02-14-2025 [facility] 02[facility]13-2025 [facility] 02-13-2025 [facility] 02-12-2025 [facility] 02-12-2025 [facility] 02-11-2025 [facility] 02-11-2025 [facility] 02-10-2025 [facility] 02-10-2025 [facility] 02-09-2025 [facility] 02-09-2025 [facility] 02-09-2025 [facility] 02-08-2025 [facility] 02-08-2025 [facility] 02-07-2025 [facility] 02-07-2025 [facility] 02-07-2025 [facility] 02-06-2025 [facility] 02-06-2025 [facility] 02-06-2025 [facility] 02-05-2025 [facility] 02-05-2025 [facility] 02-05-2025 [facility] 02-04-2025 [facility] 02-04-2025 [facility] 02-04-2025 [facility] 02-03-2025 [facility] 02-03-2025 [facility] 02[facility]03-2025 [facility] 02-02-2025 [facility] 02-02-2025 [facility] 02-02-2025 [facility] 02[facility]01-2025 [facility] 02-01-2025 [facility] 02[facility]01-2025 [facility] 02-01-2025 [facility] 01-31-2025 [facility] 01-31-2025 [facility] 01-31-2025 [facility] 01-31-2025 [facility] 01-30-2025 [facility] 01-30-2025 [facility] 01-30-2025 [facility] 01-29-2025 [facility] 01-29-2025 [facility] 01-29-2025 [facility] 01-28-2025 [facility] 01-28-2025 [facility] 01-28-2025 [facility] 01-28-2025 [facility] 01-27-2025 [facility] 01-27-2025 [facility] 01-27-2025 [facility] 01[facility]26-2025 [facility] 01-26-2025 [facility] 01-26-2025 [facility] 01[facility]26-2025 [facility] 01-25-2025 [facility] 01-25-2025 [facility] 01[facility]25-2025 [facility] 01[facility]25-2025 [facility] 01-25-2025 [facility] 01-24-2025 [facility] 01-24-2025 [facility] 01-24-2025 [facility] 01-24-2025 [facility] 01-24-2025 [facility] 01-23-2025 [facility] 01-23-2025 [facility] 01-23-2025 [facility] 01-23-2025 [facility] 01-22-2025 Radiology Diagnostic study note [facility] Imaging Services [address] [place] [address] Extremity Lower without Contra MR#: [id number] Acct: [id number] Name: JAK TANNER Rep #: [id number] : 1955 M 69 From: Jl Hunt MD PCP: [facility] Status: PRE ER Study:Extremity Lower without Contra Date of Exam: 01/22/25 Exam# [id number] Ordering Dr: Yumiko Bee DO PROCEDURE: EXTREMITY LOWER WITHOUT CONTRA 01/22/2025 REASON FOR EXAM: WOUND TECHNIQUE: Procedure Code: CTELWO Modality: CT Procedure: EXTREMITY LOWER WITHOUT CONTRA Coronal and Sagittal reconstruction series were provided. CONTRAST: VOLUME: mL One or more dose reduction techniques were used (e.g., Automated exposure control, adjustment of the mA and/or kV according to patient size, use of iterative reconstruction technique). FINDINGS: Subcutaneous emphysema is noted in the medial aspect of the left gluteus, adjacent to the gluteal cleft, and extends into the perineum. No focal fluid collection to suggest an abscess. Subcutaneous fat stranding is noted throughout the left thigh, nonspecific. No acute fracture. Moderate degenerative changes are noted in the pubic symphysis, and mild degenerative changes are noted within both hips. Severe degenerative changes are noted in the left knee, particularly the medial compartment. The remainder of the unenhanced CT appearance of the left thigh appears unremarkable. CT/Extremity Lower without Contra IMPRESSION: 1. Subcutaneous emphysema in the medial aspect of the left gluteus and extends to the perineum. No CT evidence of an abscess. 2. Nonspecific subcutaneous fat stranding throughout the left thigh. 3. Severe degenerative changes affecting the left knee, moderate degenerative changes of the pubic symphysis, and mild degenerative changes of both hips. Reading Location: [id number] CC: See Bee DO; [facility] ~ Lumber Handler: Signed [facility] 01-22-2025 Discharge summary [facility] 09-11-2025 Radiology Diagnostic study note [facility] Imaging Services [address] [place] [address] Chest 1 View (Portable) MR#: [id number] Acct: [id number] Name: JAK TANNER Rep #: [id number] : 1955 M 69 From: Jl Hunt MD PCP: [facility] Status: PRE ER Study:Chest 1 View (Portable) Date of Exam: 01/21/25 Exam# [id number] Ordering Dr: Yumiko Bee DO PROCEDURE: CHEST 1 VIEW (PORTABLE) 01/22/2025 REASON FOR EXAM: COUGH TECHNIQUE: Frontal view of the chest. FINDINGS: The lungs are clear. The cardiomediastinal silhouette appears borderline enlarged, with mild atherosclerotic calcification of the aortic knob.. No acute osseous abnormality. RAD/Chest 1 View (Portable) IMPRESSION: As above. Reading Location: [id number] CC: See Bee DO; [facility] ~ Lumber Handler: Signed [facility] 07-02-2023 Discharge summary Note Date/Time July 02, 2023 5:09pm [facility] Medical Records Department [address] [place] [address] Emergency Department Summary 07/02/23 MR#: [id number] Acct: [id number] Name: JAK TANNER Rep #:[id number] : 1955 68 From: Marcus Sandoval MD PCP: [facility] St atus:REG ER Location: ED [...] Prior similar symptoms: Yes Recent Illness/Hospitalization: No PFSH PFSH Medical History Lymphedema Ulcer of left lower [...] 84.8 H Lymph % (Auto) 4.5 L Hyde % (Auto) 9.2 Eos % (Auto) 0.3 [...] lymphedema. This was independent reviewed interpreted by ks [id number]) Diagnostic Testing: Clinical Impression(s) from Imaging Studies Foot X-Ray 07/02/23 16:25 IMPRESSION: Soft tissue swelling without evidence for acute fracture or dislocation. No definitive radiographic evidence for acute osteomyelitis Electronically Signed: Alejandro Christie MD at 17:09 EST , Discharge Plan Triage Chief Complaint: Wound [...] DAILY Qty: 30 0RF Primary Care Provider: Toño Montes Referrals: [facility] Stanley,Toño Heller [Primary Care Provider] - As soon as possible Activity Restrictions/Additional Instructions: Follow-up at the [facility] for wound evaluation in 2 days. Do not remove the dressing until seen at the wound center. Disposition Disposition: Home, Self Care What to do if you have Problems For any increased pain, shortness of breath, bleeding, nausea or vomiting, chestpain, or any unexpected problems, contact your Primary Care Provider. Call [facility] ([phone]) or report to the closest Emergency Room. Call 911 if necessary. 07/02/231949 <Electronically signed by Marcus Sandoval MD> Cosigner Signature (if applicable): CC: [facility] ~ Signed [facility] Work Phone: 1(858) 822-958807-06-2023 Progress note Author john Sanchez [facility] November 16, 2022 1:08pm Note Date/Time November 16, 2022 1:08p [facility] [address] [place] [address] Progress Note - Wound Care 11/16/22 1304 MR#: [id number] Acct: [id number] Name: JAK TANNER Rep #:[id number] : 1955 67 From: Franklyn espinal MD PCP: Dr. Toño Heller Status:REG RC R Location: History of [...] been using his compression. [facility] for feeling unwell, [...] Charges/Coding Visit Charges Office Visits / Consults: 96118 OV L3 Est Physical Exam Const alert, [...] Start: 11/16/22 10:05 Freq: Status: Active Protocol: PHOEBE.LOWJEFFREYT Activity Type Activity Date Activity User E-sign Co-sign Detail Recorded Client Recorded Date Recorded By Document 11/16/22 10:05 TIA [id number] 11/16/22 10:15 TIA 11/16/22 10:05 - Today's Visit Information Type of service Follow-up Visit (Physician/HEALTHCARE MANAGEMENT ) Arrival Mode Ambulatory Patient Identification Verified [...] Recorded Date Recorded By Document 11/16/22 10:05 [id number] 11/16/22 10:15 11/16/22 10:05 Wound Center Nurse 1 #6- [...] Recorded Date Recorded By Document 11/16/22 11:01 [id number] 11/16/22 11:04 11/16/22 11:01 Wound Center Nurse [...] Recorded Date Recorded By Document 11/16/22 12:07 TIA [id number] 11/16/22 12:08 TIA 11/16/22 12:07 Wound Care Center Nurse 3 [...] wound center. This note was generated with PluggedIn dictation software. It may contain incorrectwords, spelling, and punctuation that were not noted in checking the note beforesigning. 11/16/22 1308 <Electronically signed by Franklyn Sanchez MD> Cosigner Signature (if applicable): CC: ~ Signed [facility] Work Phone: 1(791) 248-965106-22-2023 Progress note Author Franklyn Sanchez [facility] November 02, 2022 1:44pm Note Date/Time November 02, 2022 11:1 1am [facility] [address] [place] [address] Progress Note - Wound Care 11/02/22 1107 MR#: [id number] Acct: [id number] Name: JAK TANNER Rep #:[id number] : 1955 67 From: Franklyn espinal MD PCP: Dr. Toño Heller Status:REG RC R Location: History of [...] been using his compression. [facility] concern for feeling unwell, [...] Index (BMI) 47.4 Charges/Coding Procedures Integumentary 111xxx-113xx: 12031 Magdalena subq tissue 20 sq cm/< (Superficial [...] Recorded Date Recorded By Document 10/12/22 08:59 [facility] [id number] 10/12/22 09:18 [facility] Document 10/16/22 08:51 DL [id number] 10/16/22 08:55 DL Document 10/19/22 09:22 [facility] [id number] 10/19/22 09:44 [facility] Document 10/24/22 13:03 NV [id number] 10/24/22 13:06 NV Document 10/26/22 09:32 NV [id number] 10/26/22 09:34 NV Document 11/02/22 09:21 [facility] [id number] 11/02/22 09:31 [facility] 10/12/22 10/16/22 10/19/22 08:59 08:51 09:22 - Today's Visit Information Type of service Follow-up Visit Nurse-only Follow-up Visit (Physician/HEALTHCARE MANAGEMENT Visit (Physician/HEALTHCARE MANAGEMENT ) ) Arrival Mode Ambulatory Ambulatory Ambulatory [...] Yes 10/24/22 10/26/22 11/02/22 13:03 09:32 09:21 WC - Today's Visit Information Type of service Nurse-only Follow-up Visit Follow-up Visit Visit (Physician/HEALTHCARE MANAGEMENT (Physician/HEALTHCARE MANAGEMENT ) ) Arrival Mode Ambulatory Ambulatory Ambulatory [...] Is Patient Pain Free? Yes Yes Yes - Nurse 1 - General Ulcer Measurement Start: 10/12/22 08:59 Freq: Status: Active Protocol: Activity Type Activity Date Activity User E-sign Co-sign Detail Recorded Client Recorded Date Recorded By Document 10/12/22 08:59 [facility] [id number] 10/12/22 09:18 BM Document 10/16/22 08:51 DL [id number] 10/16/22 08:55 DL Document 10/19/22 09:22 [facility] [id number] 10/19/22 09:44 BM Document 10/26/22 09:32 AK [id number] 10/26/22 09:34 AK Document 11/02/22 09:21 [facility] [id number] 11/02/22 09:31 BMF 10/12/22 10/16/22 10/19/22 08:59 08:51 09:22 [...] Date Recorded By Document 10/12/22 09:31 MW [id number] 10/12/22 09:48 MW Document 10/19/22 09:51 MW [id number] 10/19/22 10:21 MW Document 10/26/22 09:42 MW Desktop 10/26/22 09:50 MW Document 11/02/22 09:56 MW [id number] 11/02/22 10:05 MW 10/12/22 10/19/22 10/26/22 09:31 [...] Recorded Date Recorded By Document 10/12/22 10:13 [facility] [id number] 10/12/22 10:15 [facility] Document 10/16/22 08:51 DL [id number] 10/16/22 08:55 DL Document 10/19/22 10:28 [facility] [id number] 10/19/22 10:29 [facility] Document 10/24/22 13:03 NV [id number] 10/24/22 13:06 NV Document 10/24/22 13:06 AK [id number] 10/24/22 13:07 NV Document 11/02/22 10:39 DL [id number] 11/02/22 10:39 DL 10/12/22 10/16/22 10/19/22 10:13 08:51 10:28 Wound Care Center Nurse 3 #8- r 2nd toe -Ulcer Cleansing Soap and Water Soap and Water Soap and Water -Foul Odor after Cleansing No No -Negative Pressure Wound Therapy -Primary Dressing Applied Aquacel Extra Aquacel AG 4x4 Aquacel Extra -Other Dressing PER DL TIP CUTTER -Primary Dressing Covered/Secured with Dry Gauze, Dry [...] unna aqaucel Ag UNNA BOOT; PER DL TIP CUTTER -Primary Dressing Covered/Secured with Dry Gauze & Roll Gauze, Secured with Tape -Aquacel Extra 0 0 #6- R LAT ANKLE cluster -Ulcer Cleansing Rinsed/ Soap and Water Soap and Water Irrigated with Saline -Foul Odor after Cleansing No No No -Primary Dressing Applied Aquacel Extra Aquacel Extra -Other Dressing unna aqaucel Ag UNNA BOOT; PER DL TIP CUTTER -Primary Dressing Covered/Secured with Dry Gauze, Secured [...] 2 weeks. This note was generated with [employer] software. It may contain incorrectwords, spelling, and punctuation that were not noted in checking the note beforesigning. 11/02/22 1344 <Electronically signed by Franklyn Sanchez MD> Cosigner Signature (if applicable): CC: ~ Signed [facility] Work Phone: 1(416) 474-801306-15-2023 Progress note Author Franklyn Sanchez [facility] October 26, 2022 12:58pm Note Date/Time October 26, 2022 9:57 am [facility] [address] [place] [address] Progress Note - Wound Care 10/26/22 0956 MR#: [id number] Acct: [id number] Name: JAK TANNER Rep #:[id number] : 1955 67 From: Franklyn espinal MD PCP: Dr. Toño Heller Status:REG RC R Location: History of [...] been using his compression. [facility] for feeling unwell, [...] Index (BMI) 47.4 Charges/Coding Procedures Integumentary 111xxx-113xx: 53746 Magdalena subq tissue 20 sq cm/< Physical [...] Recorded Date Recorded By Document 10/12/22 08:59 [facility] [id number] 10/12/22 09:18 BMF Document 10/16/22 08:51 DL [id number] 10/16/22 08:55 DL Document 10/19/22 09:22 BMF [id number] 10/19/22 09:44 BM Document 10/24/22 13:03 AK [id number] 10/24/22 13:06 AK Document 10/26/22 09:32 NV [id number] 10/26/22 09:34 AK 10/12/22 10/16/22 10/19/22 08:59 08:51 09:22 WC - Today's Visit Information Type of service Follow-up Visit Nurse-only Follow-up Visit (Physician/HEALTHCARE MANAGEMENT Visit (Physician/HEALTHCARE MANAGEMENT ) ) Arrival Mode Ambulatory Ambulatory Ambulatory [...] Yes Yes Yes 10/24/22 10/26/22 13:03 09:32 - Today's Visit Information Type of service Nurse-only Follow-up Visit Visit (Physician/HEALTHCARE MANAGEMENT ) Arrival Mode Ambulatory Ambulatory Transfer Assistance [...] Numeric Is Patient Pain Free? Yes Yes - Nurse 1 - General Ulcer Measurement Start: 10/12/22 08:59 Freq: Status: Active Protocol: Activity Type Activity Date Activity User E-sign Co-sign Detail Recorded Client Recorded Date Recorded By Document 10/12/22 08:59 [facility] [id number] 10/12/22 09:18 BMF Document 10/16/22 08:51 DL [id number] 06/05/23 08:55 DL Document 10/19/22 09:22 [facility] [id number] 10/19/22 09:44 BMF Document 10/26/22 09:32 AK [id number] 10/26/22 09:34 AK 10/12/22 10/16/22 10/19/22 08:59 [...] Date Recorded By Document 10/12/22 09:31 MW [id number] 10/12/22 09:48 MW Document 10/19/22 09:51 MW [id number] 10/19/22 10:21 MW Document 10/26/22 09:42 MW Desktop 10/26/22 09:50 MW 10/12/22 [...] Recorded Date Recorded By Document 10/12/22 10:13 [facility] [id number] 10/12/22 10:15 [facility] Document 10/16/22 08:51 DL [id number] 10/16/22 08:55 DL Document 10/19/22 10:28 [facility] [id number] 10/19/22 10:29 [facility] Document 10/24/22 13:03 NV [id number] 10/24/22 13:06 NV Document 10/24/22 13:06 AK [id number] 10/24/22 13:07 NV 10/12/22 10/16/22 10/19/22 10:13 08:51 10:28 Wound Care Center Nurse 3 #8- r 2nd toe -Ulcer Cleansing Soap and Water Soap and Water Soap and Water -Foul Odor after Cleansing No No -Negative Pressure Wound Therapy -Primary Dressing Applied Aquacel Extra Aquacel AG 4x4 Aquacel Extra -Other Dressing PER DL TIP CUTTER -Primary Dressing Covered/Secured with Dry Gauze, Dry [...] unna aqaucel Ag UNNA BOOT; PER DL TIP CUTTER -Primary Dressing Covered/Secured with Dry Gauze & Roll Gauze, Secured with Tape -Aquacel Extra 0 0 #6- R LAT ANKLE cluster -Ulcer Cleansing Rinsed/ Soap and Water Soap and Water Irrigated with Saline -Foul Odor after Cleansing No No No -Primary Dressing Applied Aquacel Extra Aquacel Extra -Other Dressing unna aqaucel Ag UNNA BOOT; PER DL TIP CUTTER -Primary Dressing Covered/Secured with Dry Gauze, Secured [...] a week. This note was generated with PluggedIn dictation software. It may contain incorrectwords, spelling, and punctuation that were not noted in checking the note beforesigning. 10/26/22 1258 <Electronically signed by Franklyn Sanchez MD> Cosigner Signature (if applicable): CC: ~ Signed [facility] Work Phone: 1(383) 259-811106-09-2023 Progress note Author Franklyn Sanchez [facility] October 20, 2022 12:59pm Note Date/Time October 19, 2022 1:00p m [facility] [address] [place] [address] Progress Note - Wound Care 10/19/22 1254 MR#: [id number] Acct: [id number] Name: JAK TANNER Rep #:[id number] : 1955 67 From: Franklyn espinal MD PCP: Dr. Toño Heller Status:REG RC R Location: History of [...] been using his compression. [facility] concern for feeling unwell, [...] Index (BMI) 47.4 Charges/Coding Procedures Integumentary 111xxx-113xx: 84965 Magdalena subq tissue 20 sq cm/< Add On Codes: 56719 Magdalena subq tissue add-on (x3. Additional square [...] Recorded Date Recorded By Document 10/12/22 08:59 [facility] [id number] 10/12/22 09:18 BM Document 10/16/22 08:51 DL [id number] 10/16/22 08:55 DL Document 10/19/22 09:22 [facility] [id number] 10/19/22 09:44 BM 10/12/22 10/16/22 10/19/22 08:59 08:51 09:22 - Today's Visit Information Type of service Follow-up Visit Nurse-only Follow-up Visit (Physician/HEALTHCARE MANAGEMENT Visit (Physician/HEALTHCARE MANAGEMENT ) ) Arrival Mode Ambulatory Ambulatory Ambulatory [...] Recorded Date Recorded By Document 10/12/22 08:59 [facility] [id number] 10/12/22 09:18 BM Document 10/16/22 08:51 DL [id number] 10/16/22 08:55 DL Document 10/19/22 09:22 [facility] [id number] 10/19/22 09:44 [facility] 10/12/22 10/16/22 10/19/22 08:59 08:51 09:22 Wound [...] Date Recorded By Document 10/12/22 09:31 MW [id number] 10/12/22 09:48 MW Document 10/19/22 09:51 MW [id number] 10/19/22 10:21 MW 10/12/22 10/19/22 09:31 09:51 [...] Recorded Date Recorded By Document 10/12/22 10:13 [facility] [id number] 10/12/22 10:15 [facility] Document 10/16/22 08:51 [id number] 10/16/22 08:55 Document 10/19/22 10:28 [facility] [id number] 10/19/22 10:29 [facility] 10/12/22 10/16/22 10/19/22 10:13 08:51 10:28 Wound Care Center Nurse 3 #8- r 2nd toe -Ulcer Cleansing Soap and Water Soap and Water Soap and Water -Foul Odor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 (if applicable): CC: [facility] ~ Signed [facility] Work Phone: Evaluation noteNo assessment information available [facility] Work Phone: evaluation note* Diagnosis Onset Date Resolution Status Homeless single person acute Lymphedema acute Ulcer of left lower extremity with fat layer exposed acute Ulcer of right lower extremity with fat layer exposed acute [facility] Work Phone: Evaluation note* Diagnosis Onset Date Resolution Status Homeless single person acute Lymphedema acute Ulcer of left lower extremity with fat layer exposed acute Ulcer of right lower extremity with fat layer exposed acute Homeless single person acute Lymphedema acute Ulcer of left lower extremity with fat layer exposed acute Ulcer of right lower extremity with fat layer exposed acute [facility] Work Phone: Evaluation note* Diagnosis Onset Date [...] lower extremity with fat layer exposed acute [facility] Work Phone: Evaluation note* Diagnosis Onset Date Resolution Status Acute hypokalemia acute Cellulitis of foot, left acu te Lymphedema acute [facility] Work Phone: Hospital Discharge instructions Additional Instructions Follow nurses instructions regarding dressing changes to your foot wounds. Change the dressings twice daily at least, applying a small amount of the prescription antibiotic ointment to the dressing with each change.[facility] Work Phone: Hospital Discharge instructions Additional Instructions Follow-up at the [facility] for wound evaluation in 2 days. Do not remove the dressing until seen at the wound center.[facility] Work Phone: Reason for referral (narrative)No reason for referral information available[facility] Work Phone: Chief Complaint and Reason [...] Cellulitis of foot, left Lymphedema Chief Complaint Admit Date weakness January 21, 2025 11:22pm Advance Directives No Advanced Directives Records Found Advance Directive Response Recorded Date/ Time Living Will No September 22, 2022 8 :19am Power of Vehicle Damage Appraiser No September 22, 2022 8:19am Advance Directive Response Recorded Date/ Time Living Will No July 02 4:01pm Power of Vehicle Damage Appraiser No July 02, 2023 4:01pm Advance Directive Response Recorded Date/ Time Living Will No June 3:04pm Power of Vehicle Damage Appraiser No July 12, 2023 3:04pm Advance Directive Response Recorded Date/ Time Living Will No June 5:23pm Power of Vehicle Damage Appraiser No July 12, 2023 5:23pm Advance Directive Response Recorded Date/ Time Do you have a Healthcare Power of Vehicle Damage Appraiser? No January 22, 2025 12:11am Summary Purpose Family History No Family History Records FoundNo Family History Records Found Additional Source Comments Care Teams (unrecognized sec tion and content) Team Status: Active Member Role Status Dates Dr. Toño Heller Primary Care Provider Active Team Status: Active Member Role Status Dates Dr. Toño Heller Primary Care Provider, Referring P rovider Active Dr. Franklyn Sanchez MD Attending Provider, Other Pr ovider Active Team Status: Inactive Member Role Status Dates Dr. Toño Heller Primary Care Provider Active Dr. Cristhian Mckenzie MD Attending Provider, Emergency Provider Active Team Status: Inactive Member Role Status Dates Dr. Toño Heller Primary Care Provider, Referring P rovider Active Dr. Franklyn Sanchez MD Attending Provider Active Team Status: Inactive Member Role Status Dates Dr. Toño Heller Primary Care Provider Active Dr. Cristhian Mckenzie MD Emergency Provider Active Team Status: Active Member Role Status Dates [facility] Primary Care Provider A ctive Team Status: Inactive Member Role Status Dates Dr. Marcus Sandoval MD Emergency Provider Active [facility] Primary Care Provider A ctive Team Status: Inactive Member Role Status Dates Dr. Marcus Sandoval MD Attending Provider, Emergency Provi john Active [facility] Primary Care Provider A ctive Team Status: Active Member Role Status Dates [facility] Primary Care Provider, Referring Provider Active BECKY Singer Attending Provider Active Team Status: Active Member Role Status Dates [facility] Primary Care Provider A ctive Dr. Nicola De Leon , DO Emergency Provider Active Dr. Danis Velez , DO Admit Provider, Attending Pro vider Active Dr. Alejandro Sanders DPM Other Provider Active Team Status: Active Member Role Status Dates [facility] Primary Care Provider A ctive Dr. Nicola De Leon , DO Emergency Provider Active Dr. Danis Velez , DO Admit Provider, Attending Provider, Other Provider Active Dr. Alejandro Sanders DPM Other Provider Active Team Status: Inactive Member Role Status Dates [facility] Primary Care Provider, Referring Provider Active BECKY Singer Attending Provider Active Team Status: Active Member Role/Relationship Status Dates [facility] Primary Care Provider A ctive Team Status: Inactive Member Role/Relationship Status Dates [facility] Primary Care Provider Active Start: January 122024 End: January 22, 2025 Dr. See Bee , Emergency Provider Active Start: January 21, 2025 End: January 22, 2025 Goals (unrecognized section and content) Goals may be documented in a n alternate sectionGoals may be documented in an alternate sectionGoals may be documented in an alternate sectionGoals may be documented in an alternate sectionGoals may be documented in an alternate section (unrecognized sect ion and content) No Status Records FoundNo Status Records Found INFORMATION SOURCE (unrecogn ized section and content) DATE CREATED AUTHOR 03/19/2025 [facility] DATE CREATED AUTHOR AUTHOR'S ORGANIZ ATION 03/25/2025 [facility] FOR RECORDS PERTAINING TO PATIENTS WHO [...] BE BASED ON THE PRIMARY CLINICAL RECORDS. [facility] [employer] [facility]. provides no warranty or guarantee of the accuracy or completeness of information in this document.
[2025-04-08 08:42] LABS: Hematocrit 35.0 % (40-54); Hemoglobin 10.9 g/dL (13.0-16.5); Mean Corp Hgb Conc 31.1 g/dL (32-36); Mean Corpuscular Volume 89.3 fL (80-94); Mean Platelet Vol. 9.1 fl (6.2-12.0); Platelet Count 276 K/mm3 (150-450); RBC Distribution Width CV 13.0 % (11.6-14.6); RBC Distribution Width SD 42.4 fl (35.1-43.9); Red Blood Count 3.92 M/mm3 (4.6-6.2); White Blood Count 5.1 K/mm3 (4.4-11.0)
[2025-04-08 08:56] LABS: AST(SGOT) 19 U/L (<=37); Alanine Aminotransfer ALT/SGPT 6 U/L (<=46); Albumin, Serum 2.7 g/dL (3.4-4.8); Alkaline Phosphatase 55 U/L (40-129); Anion Gap 9 (5-15); BUN 7 mg/dL (4-19); BUN/Creat Ratio 11.6 RATIO (10-20); Calcium,Total 8.6 mg/dL (7.6-11.0); Carbon Dioxide 28.9 mmol/L (21.0-32.0); Chloride 104 mmol/L (98-108); Globulin 3.9 g/dL (2.2-4.2); Glucose 95 mg/dL (70-99); Potassium 3.4 mmol/L (3.3-5.1)
== END ==
LOC: OLS.SW 05:00
PROVIDERS: Visit Provider Family Medicine
DX: M72.6 Necrotizing fasciitis (principal); I87.2 Venous insufficiency (chronic) (peripheral); Z79.899 Other long term (current) drug therapy
CPT/HCPCS: 36415; 80053; 85027

== ENCOUNTER → 2025-04-16 | Outpatient (REF) | payer MEDICARE, MEDICAID, SELFPAY ==
--- OUTSIDE RECORDS SUMMARY | 2025-04-16 04:48 | XMS RPT_ITS | CCD ---
Author Organization [facility] Care Team Providers Care Vp [place] Name Role Phone Dr. Toño Heller Primary Care Provider Dr. Toño Heller Referring Provider Dr. Franklyn Sanchez Attending Provider Dr. Franklyn Sanchez Other Provider [facility] Pina Primary Care Pro vider Dr. Nicola De Leon Emergency Provider Dr. Danis Velez Admit Provider Dr. Danis Velez Attending Provider Dr. Danis Velez Other Provider Dr. Alejandro Sanders Other Provider [facility], [place] Pina Primary Care Pro vider Dr. See Bee DO Emergency Provider SYSTEM, PROVIDER NOT IN Referring Unavaila ble ALAN CLAIRE Primary Care Unavailable [facility], GENERIC Consulting KEITH Lozano Attending Unavailable PEYMAN RODRIGEZ Admitting Unavailable JAGJIT GONZALES Consulting UnavailDAGMAR Springer Consulting Unavaila ble SYSTEM, PROVIDER NOT IN Referring Unavaila ble SYSTEM, PROVIDER NOT IN Admitting Unavaila ble ALAN CLAIRE Primary Care Unavailable Alyssa Nguyen Attending Unavailable Alyssa Nguyen Referring Unavailable [facility], [place] Primary Care Unavailable See Bee Attending Unavailable [facility] [place], [facility] Primary Care Unavailable Myles Rebollar Attending Unavailable Alejandro Sanders Referring Unavailable [facility] [place], [facility] Primary Care Unavailable Alejandro Sanders Referring Unavailable [facility], [facility] Primary Care Unavailable Myles Rebollar Attending Unavailable [facility] [place], [facility] Primary Care Unavailable Dae Goff Attending Unavailable [facility], [facility] Primary Care Unavailable Dae Goff Attending Unavailable [facility] [place], [facility] Primary Care Unavailable Alyssa Nguyen Attending Unavailable Alyssa Nguyen Attending Unavailable [facility] [place], [facility] Primary Care Unavailable Alyssa Nguyen Attending Unavailable Alyssa Nguyen Referring Unavailable [facility], [facility] Primary Care Unavailable [facility], [employer] Attending Unavailable [facility] [place], [facility] Unavailable Medications Current Medications Medication Drug Class(es) [...] 2022 12:00am July 02, 2023 5:09pm sennosides, shelter 8.6 mg oral capsule (1 source) Start: [...] Weekly bmp, cbc, and esr. Fax to [phone]. routine picc care per protocol. Problems Active [...] width (RBC) [Ratio] 14.0 % Normal 11.6-14.6 [facility] Comment on above: Order Comment: REDRA W. PREVIOUS SPECIMEN REJECTED DUE TO RESULTS NOT COMING THROUGH AND SEEM TO BE ERRONEOUS. 01/22/25219 Mora Patel. NOTIFIED DELMY FOR REDRAW Performed By: #### L 509.7001, L100.0100, L503.6005, L503.7505, L501.3620, L500.2500, L501.5200, L500.3400 #### [facility] [address] [place], [place], [id number] Hematocrit (Bld) [Volume fraction] 33.8 % Low 40-54 [facility] Comment on above: Order Comment: REDRA W. PREVIOUS SPECIMEN REJECTED DUE TO RESULTS NOT COMING THROUGH AND SEEM TO BE ERRONEOUS. 01/22/25219 Mora Patel. NOTIFIED DELMY FOR REDRAW Performed By: #### L 509.7001, L100.0100, L503.6005, L503.7505, L501.3620, L500.2500, L501.5200, L500.3400 #### [facility] [address] [place], [address] Hemoglobin (Bld) [Mass/Vol] 10.2 g/dL Low 13.0-16.5 [facility] Comment on above: Order Comment: REDRA W. PREVIOUS SPECIMEN REJECTED DUE TO RESULTS NOT COMING THROUGH AND SEEM TO BE ERRONEOUS. 01/22/25219 Mora Patel. NOTIFIED DELMY FOR REDRAW Performed By: #### L 509.7001, L100.0100, L503.6005, L503.7505, L501.3620, L500.2500, L501.5200, L500.3400 #### [facility] [address] [place], [address] MCH (RBC) [Entitic mass] 28.3 pg Normal 27.0-32.0 [facility] Comment on above: Order Comment: REDRA W. PREVIOUS SPECIMEN REJECTED DUE TO RESULTS NOT COMING THROUGH AND SEEM TO BE ERRONEOUS. 01/22/25219 Mora Patel. NOTIFIED DELMY FOR REDRAW Performed By: #### L 509.7001, L100.0100, L503.6005, L503.7505, L501.3620, L500.2500, L501.5200, L500.3400 #### [facility] [address] [place], [address] MCHC (RBC) [Mass/Vol] 30.2 g/dL Low 32-36 [facility] Comment on above: Order Comment: REDRA W. PREVIOUS SPECIMEN REJECTED DUE TO RESULTS NOT COMING THROUGH AND SEEM TO BE ERRONEOUS. 01/22/25219 Mora Patel. NOTIFIED DELMY FOR REDRAW Performed By: #### L 509.7001, L100.0100, L503.6005, L503.7505, L501.3620, L500.2500, L501.5200, L500.3400 #### [facility] [address] [place], [address] MCV (RBC) [Entitic vol] 93.9 fL Normal 80-94 W [facility] Comment on above: Order Comment: REDRA W. PREVIOUS SPECIMEN REJECTED DUE TO RESULTS NOT COMING THROUGH AND SEEM TO BE ERRONEOUS. 01/22/25219 Mora Patel. NOTIFIED DELMY FOR REDRAW Performed By: #### L 509.7001, L100.0100, L503.6005, L503.7505, L501.3620, L500.2500, L501.5200, L500.3400 #### [facility] [address] [place], [address] Platelet mean volume (Bld) [Entitic vol] 9.1 fL Normal 6.2-12.0 [facility] Comment on above: Order Comment: REDRA W. PREVIOUS SPECIMEN REJECTED DUE TO RESULTS NOT COMING THROUGH AND SEEM TO BE ERRONEOUS. 01/22/25219 Mora Patel. NOTIFIED DELMY FOR REDRAW Performed By: #### L 509.7001, L100.0100, L503.6005, L503.7505, L501.3620, L500.2500, L501.5200, L500.3400 #### [facility] [address] [place], [address] Platelets (Bld) [#/Vol] 220 10*3/uL Normal 150-450 [facility] Comment on above: Order Comment: REDRA W. PREVIOUS SPECIMEN REJECTED DUE TO RESULTS NOT COMING THROUGH AND SEEM TO BE ERRONEOUS. 01/22/25219 Mora Patel. NOTIFIED DELMY FOR REDRAW Performed By: #### L 509.7001, L100.0100, L503.6005, L503.7505, L501.3620, L500.2500, L501.5200, L500.3400 #### [facility] [address] [place], [address] RBC (Bld) [#/Vol] 3.60 10*6/uL Low 4.6-6.2 [facility] Comment on above: Order Comment: REDRA W. PREVIOUS SPECIMEN REJECTED DUE TO RESULTS NOT COMING THROUGH AND SEEM TO BE ERRONEOUS. 01/22/25219 Mora Patel. NOTIFIED DELMY FOR REDRAW Performed By: #### L 509.7001, L100.0100, L503.6005, L503.7505, L501.3620, L500.2500, L501.5200, L500.3400 #### [facility] [address] [place], [place], [id number] RDW SD 48.2 fl High 35.1-43.9 [facility] Comment on above: Order Comment: REDRA W. PREVIOUS SPECIMEN REJECTED DUE TO RESULTS NOT COMING THROUGH AND SEEM TO BE ERRONEOUS. 01/22/25219 Mora Patel. NOTIFIED DELMY FOR REDRAW Performed By: #### L 509.7001, L100.0100, L503.6005, L503.7505, L501.3620, L500.2500, L501.5200, L500.3400 #### [facility] [address] [place], [place], [id number] WBC (Bld) [#/Vol] 4.6 10*3/uL Normal 4.4-11.0 [facility] Comment on above: Order Comment: REDRA W. PREVIOUS SPECIMEN REJECTED DUE TO RESULTS NOT COMING THROUGH AND SEEM TO BE ERRONEOUS. 01/22/25219 Mora Patel. NOTIFIED DELMY FOR REDRAW Performed By: #### L 509.7001, L100.0100, L503.6005, L503.7505, L501.3620, L500.2500, L501.5200, L500.3400 #### [facility] [address] [place], [place], [id number] Comprehensive Metabolic Prof moon 03-24-2025 Albumin [Mass/Vol] 2.5 g/dL Low 3.4-4.8 [facility] Comment on above: Order Comment: REDRA W. PREVIOUS SPECIMEN REJECTED DUE TO RESULTS NOT COMING THROUGH AND SEEM TO BE ERRONEOUS. 01/22/25219 Mora Patel. NOTIFIED DELMY FOR REDRAW Performed By: #### L 509.7001, L100.0100, L503.6005, L503.7505, L501.3620, L500.2500, L501.5200, L500.3400 #### [facility] [address] [place], [address] Albumin/Globulin [Mass ratio] 0.6 {ratio} Low 0.9-2.4 [facility] Comment on above: Order Comment: REDRA W. PREVIOUS SPECIMEN REJECTED DUE TO RESULTS NOT COMING THROUGH AND SEEM TO BE ERRONEOUS. 01/22/25219 Mora Patel. NOTIFIED DELMY FOR REDRAW Performed By: #### L 509.7001, L100.0100, L503.6005, L503.7505, L501.3620, L500.2500, L501.5200, L500.3400 #### [facility] [address] [place], [address] ALK PHOS 57 U/L Normal 40-129 [facility] Comment on above: Order Comment: REDRA W. PREVIOUS SPECIMEN REJECTED DUE TO RESULTS NOT COMING THROUGH AND SEEM TO BE ERRONEOUS. 01/22/25219 Mora Patel. NOTIFIED DELMY FOR REDRAW Performed By: #### L 509.7001, L100.0100, L503.6005, L503.7505, L501.3620, L500.2500, L501.5200, L500.3400 #### [facility] [address] [place], [address] ALT [Catalytic activity/Vol] 9 U/L Normal <=46 [facility] Comment on above: Order Comment: REDRA W. PREVIOUS SPECIMEN REJECTED DUE TO RESULTS NOT COMING THROUGH AND SEEM TO BE ERRONEOUS. 01/22/25219 Mora Patel. NOTIFIED DELMY FOR REDRAW Result Comment: Hemo lysis present, Results??could be affected. ?? Performed By: #### L 509.7001, L100.0100, L503.6005, L503.7505, L501.3620, L500.2500, L501.5200, L500.3400 #### [facility] [address] [place], [place], [id number] AST [Catalytic activity/Vol] 38 U/L Normal <=37 [facility] Comment on above: Order Comment: REDRA W. PREVIOUS SPECIMEN REJECTED DUE TO RESULTS NOT COMING THROUGH AND SEEM TO BE ERRONEOUS. 01/22/25219 Mora Patel. NOTIFIED DELMY FOR REDRAW Result Comment: Hemo lysis present, Results??could be affected. ?? Performed By: #### L 509.7001, L100.0100, L503.6005, L503.7505, L501.3620, L500.2500, L501.5200, L500.3400 #### [facility] [address] [place], [address] Bilirubin [Mass/Vol] 0.48 mg/dL Normal 0.00-1.[address] [facility] Comment on above: Order Comment: REDRA W. PREVIOUS SPECIMEN REJECTED DUE TO RESULTS NOT COMING THROUGH AND SEEM TO BE ERRONEOUS. 01/22/25219 Mora Patel. NOTIFIED DELMY FOR REDRAW Performed By: #### L 509.7001, L100.0100, L503.6005, L503.7505, L501.3620, L500.2500, L501.5200, L500.3400 #### [facility] [address] [place], [place], [phone] (533) BUN/CRE 15.7 RATIO Normal 10-20 [facility] Comment on above: Order Comment: REDRA W. PREVIOUS SPECIMEN REJECTED DUE TO RESULTS NOT COMING THROUGH AND SEEM TO BE ERRONEOUS. 01/22/25219 Mora Patel. NOTIFIED DELMY FOR REDRAW Performed By: #### L 509.7001, L100.0100, L503.6005, L503.7505, L501.3620, L500.2500, L501.5200, L500.3400 #### [facility] [address] [place], [address] Calcium [Mass/Vol] 8.8 mg/dL Normal 7.6-11.0 [facility] Comment on above: Order Comment: REDRA W. PREVIOUS SPECIMEN REJECTED DUE TO RESULTS NOT COMING THROUGH AND SEEM TO BE ERRONEOUS. 01/22/25219 Mora Patel. NOTIFIED DELMY FOR REDRAW Performed By: #### L 509.7001, L100.0100, L503.6005, L503.7505, L501.3620, L500.2500, L501.5200, L500.3400 #### [facility] [address] [place], [address] Chloride [Moles/Vol] 106 mmol/L Normal 98-[address] [facility] Comment on above: Order Comment: REDRA W. PREVIOUS SPECIMEN REJECTED DUE TO RESULTS NOT COMING THROUGH AND SEEM TO BE ERRONEOUS. 01/22/25219 Mora Patel. NOTIFIED DELMY FOR REDRAW Performed By: #### L 509.7001, L100.0100, L503.6005, L503.7505, L501.3620, L500.2500, L501.5200, L500.3400 #### [facility] [address] [place], [address] CO2 [Moles/Vol] 23.7 mmol/L Normal 21.0-32.0 [facility] Comment on above: Order Comment: REDRA W. PREVIOUS SPECIMEN REJECTED DUE TO RESULTS NOT COMING THROUGH AND SEEM TO BE ERRONEOUS. 01/22/25219 Mora Patel. NOTIFIED DELMY FOR REDRAW Performed By: #### L 509.7001, L100.0100, L503.6005, L503.7505, L501.3620, L500.2500, L501.5200, L500.3400 #### [facility] [address] [place], [address] Creatinine [Mass/Vol] 0.46 mg/dL Low 0.70-1.20 [facility] Comment on above: Order Comment: REDRA W. PREVIOUS SPECIMEN REJECTED DUE TO RESULTS NOT COMING THROUGH AND SEEM TO BE ERRONEOUS. 01/22/25219 Mora Patel. NOTIFIED DELMY FOR REDRAW Performed By: #### L 509.7001, L100.0100, L503.6005, L503.7505, L501.3620, L500.2500, L501.5200, L500.3400 #### [facility] [address] [place], [place], [id number] GAP 8 Normal 5-15 [facility] Comment on above: Order Comment: REDRA W. PREVIOUS SPECIMEN REJECTED DUE TO RESULTS NOT COMING THROUGH AND SEEM TO BE ERRONEOUS. 01/22/25219 Mora Patel. NOTIFIED DELMY FOR REDRAW Performed By: #### L 509.7001, L100.0100, L503.6005, L503.7505, L501.3620, L500.2500, L501.5200, L500.3400 #### [facility] [address] [place], [place], [id number] GFR/1.73 sq M.predicted among non-blacks MDRD (S/P/Bld) [Vol rate/Area] 112 mL/min/{1.73_m2} Normal >60 [facility] Comment on above: Order Comment: REDRA W. PREVIOUS SPECIMEN REJECTED DUE TO RESULTS NOT COMING THROUGH AND SEEM TO BE ERRONEOUS. 01/22/25219 Mora Patel. NOTIFIED DELMY FOR REDRAW Result Comment: mL/m in/1.73m2 CKD-EPI Creatinine Equation (2020) Performed By: #### L 509.7001, L100.0100, L503.6005, L503.7505, L501.3620, L500.2500, L501.5200, L500.3400 #### [facility] [address] [place], [place], [id number] Globulin (S) [Mass/Vol] 4.0 g/dL Normal 2.2-4.2 [facility] Comment on above: Order Comment: REDRA W. PREVIOUS SPECIMEN REJECTED DUE TO RESULTS NOT COMING THROUGH AND SEEM TO BE ERRONEOUS. 01/22/25219 Mora Patel. NOTIFIED DELMY FOR REDRAW Performed By: #### L 509.7001, L100.0100, L503.6005, L503.7505, L501.3620, L500.2500, L501.5200, L500.3400 #### [facility] [address] [place], [address] Glucose [Mass/Vol] 90 mg/dL Normal 70-99 [facility] Comment on above: Order Comment: REDRA W. PREVIOUS SPECIMEN REJECTED DUE TO RESULTS NOT COMING THROUGH AND SEEM TO BE ERRONEOUS. 01/22/25219 Mora Patel. NOTIFIED DELMY FOR REDRAW Performed By: #### L 509.7001, L100.0100, L503.6005, L503.7505, L501.3620, L500.2500, L501.5200, L500.3400 #### [facility] [address] [place], [address] Potassium [Moles/Vol] 4.2 mmol/L Normal 3.3-5.1 [facility] Comment on above: Order Comment: REDRA W. PREVIOUS SPECIMEN REJECTED DUE TO RESULTS NOT COMING THROUGH AND SEEM TO BE ERRONEOUS. 01/22/25219 Mora Patel. NOTIFIED DELMY FOR REDRAW Result Comment: Hemo lysis present, Results??could be affected. ?? Performed By: #### L 509.7001, L100.0100, L503.6005, L503.7505, L501.3620, L500.2500, L501.5200, L500.3400 #### [facility] [address] [place], [address] Sodium [Moles/Vol] 137 mmol/L Normal 133-145 [facility] Comment on above: Order Comment: REDRA W. PREVIOUS SPECIMEN REJECTED DUE TO RESULTS NOT COMING THROUGH AND SEEM TO BE ERRONEOUS. 01/22/25219 Mora Patel. NOTIFIED DELMY FOR REDRAW Performed By: #### L 509.7001, L100.0100, L503.6005, L503.7505, L501.3620, L500.2500, L501.5200, L500.3400 #### [facility] [address] [place], [address] T PROT 6.5 g/dL Normal 5.9-8.4 [facility] Comment on above: Order Comment: REDRA W. PREVIOUS SPECIMEN REJECTED DUE TO RESULTS NOT COMING THROUGH AND SEEM TO BE ERRONEOUS. 01/22/25219 Mora Patel. NOTIFIED DELMY FOR REDRAW Performed By: #### L 509.7001, L100.0100, L503.6005, L503.7505, L501.3620, L500.2500, L501.5200, L500.3400 #### [facility] [address] [place], [place], [id number] Urea nitrogen [Mass/Vol] 7 mg/dL Normal 4-19 [facility] Comment on above: Order Comment: REDRA W. PREVIOUS SPECIMEN REJECTED DUE TO RESULTS NOT COMING THROUGH AND SEEM TO BE ERRONEOUS. 01/22/25219 Mora Patel. NOTIFIED DELMY FOR REDRAW Performed By: #### L 509.7001, L100.0100, L503.6005, L503.7505, L501.3620, L500.2500, L501.5200, L500.3400 #### [facility] [address] [place], [address] CBC-Complete Blood Cnt No Di ffon 03-17-2025 Erythrocyte distribution width (RBC) [Ratio] 14.1 % Normal 11.6-14.6 [facility] Comment on above: Order Comment: 301.1 Performed By: #### L 503.7505, L100.0500, L500.4050 #### [facility] [address] [place], [address] Hematocrit (Bld) [Volume fraction] 32.6 % Low 40-54 [facility] Comment on above: Order Comment: 301.1 Performed By: #### L 503.7505, L100.0500, L500.4050 #### [facility] [address] [place], [address] Hemoglobin (Bld) [Mass/Vol] 10.1 g/dL Low 13.0-16.5 [facility] Comment on above: Order Comment: 301.1 Performed By: #### L 503.7505, L100.0500, L500.4050 #### [facility] [address] [place], [address] MCH (RBC) [Entitic mass] 28.3 pg Normal 27.0-32.0 [facility] Comment on above: Order Comment: 301.1 Performed By: #### L 503.7505, L100.0500, L500.4050 #### [facility] [address] [place], [address] MCHC (RBC) [Mass/Vol] 31.0 g/dL Low 32-36 [facility] Comment on above: Order Comment: 301.1 Performed By: #### L 503.7505, L100.0500, L500.4050 #### [facility] [address] [place], [address] MCV (RBC) [Entitic vol] 91.3 fL Normal 80-94 W [facility] Comment on above: Order Comment: 301.1 Performed By: #### L 503.7505, L100.0500, L500.4050 #### [facility] [address] [place], [address] Platelet mean volume (Bld) [Entitic vol] 9.8 fL Normal 6.2-12.0 [facility] Comment on above: Order Comment: 301.1 Performed By: #### L 503.7505, L100.0500, L500.4050 #### [facility] [address] [place], [address] Platelets (Bld) [#/Vol] 225 10*3/uL Normal 150-450 [facility] Comment on above: Order Comment: 301.1 Performed By: #### L 503.7505, L100.0500, L500.4050 #### [facility] [address] [place], [address] RBC (Bld) [#/Vol] 3.57 10*6/uL Low 4.6-6.2 [facility] Comment on above: Order Comment: 301.1 Performed By: #### L 503.7505, L100.0500, L500.4050 #### [facility] [address] [place], [address] RDW SD 47.6 fl High 35.1-43.9 [facility] Comment on above: Order Comment: 301.1 Performed By: #### L 503.7505, L100.0500, L500.4050 #### [facility] [address] [place], [address] WBC (Bld) [#/Vol] 5.5 10*3/uL Normal 4.4-11.0 [facility] Comment on above: Order Comment: 301.1 Performed By: #### L 503.7505, L100.0500, L500.4050 #### [facility] [address] [place], [address] Comprehensive Metabolic Prof ilon 03-17-2025 Albumin [Mass/Vol] 2.2 g/dL Low 3.4-4.8 [facility] Comment on above: Order Comment: SHREYAS Sommer PREVIOUS SPECIMEN REJECTED DUE TO RESULTS NOT COMING THROUGH AND SEEM TO BE ERRONEOUS. 01/22/25219 Mora Patel. NOTIFIED DELMY FOR REDRAW Performed By: #### L 509.7001, L100.0100, L503.6005, L503.7505, L501.3620, L500.2500, L501.5200, L500.3400 #### [facility] [address] [place], [address] Albumin/Globulin [Mass ratio] 0.6 {ratio} Low 0.9-2.4 [facility] Comment on above: Order Comment: REDRA W. PREVIOUS SPECIMEN REJECTED DUE TO RESULTS NOT COMING THROUGH AND SEEM TO BE ERRONEOUS. 01/22/25219 Mora Patel. NOTIFIED DELMY FOR REDRAW Performed By: #### L 509.7001, L100.0100, L503.6005, L503.7505, L501.3620, L500.2500, L501.5200, L500.3400 #### [facility] [address] [place], [place], [phone] PHOS 58 U/L Normal 40-129 [facility] Comment on above: Order Comment: REDRA W. PREVIOUS SPECIMEN REJECTED DUE TO RESULTS NOT COMING THROUGH AND SEEM TO BE ERRONEOUS. 01/22/25219 Mora Patel. NOTIFIED DELMY FOR REDRAW Performed By: #### L 509.7001, L100.0100, L503.6005, L503.7505, L501.3620, L500.2500, L501.5200, L500.3400 #### [facility] [address] [place], [address] ALT [Catalytic activity/Vol] 12 U/L Normal <=46 [facility] Comment on above: Order Comment: REDRA W. PREVIOUS SPECIMEN REJECTED DUE TO RESULTS NOT COMING THROUGH AND SEEM TO BE ERRONEOUS. 01/22/25219 Mora Patel. NOTIFIED DELMY FOR REDRAW Performed By: #### L 509.7001, L100.0100, L503.6005, L503.7505, L501.3620, L500.2500, L501.5200, L500.3400 #### [facility] [address] [place], [address] AST [Catalytic activity/Vol] 35 U/L Normal <=37 [facility] Comment on above: Order Comment: REDRA W. PREVIOUS SPECIMEN REJECTED DUE TO RESULTS NOT COMING THROUGH AND SEEM TO BE ERRONEOUS. 01/22/25219 Mora Patel. NOTIFIED DELMY FOR REDRAW Result Comment: Hemo lysis present, Results??could be affected. ?? Performed By: #### L 509.7001, L100.0100, L503.6005, L503.7505, L501.3620, L500.2500, L501.5200, L500.3400 #### [facility] [address] [place], [address] Bilirubin [Mass/Vol] 0.52 mg/dL Normal 0.00-1.[address] [facility] Comment on above: Order Comment: REDRA W. PREVIOUS SPECIMEN REJECTED DUE TO RESULTS NOT COMING THROUGH AND SEEM TO BE ERRONEOUS. 01/22/25219 Mora Patel. NOTIFIED DELMY FOR REDRAW Performed By: #### L 509.7001, L100.0100, L503.6005, L503.7505, L501.3620, L500.2500, L501.5200, L500.3400 #### [facility] [address] [place], [address] BUN/CRE 14.1 RATIO Normal 10-20 [facility] Comment on above: Order Comment: REDRA W. PREVIOUS SPECIMEN REJECTED DUE TO RESULTS NOT COMING THROUGH AND SEEM TO BE ERRONEOUS. 01/22/25219 Mora Patel. NOTIFIED DELMY FOR REDRAW Performed By: #### L 509.7001, L100.0100, L503.6005, L503.7505, L501.3620, L500.2500, L501.5200, L500.3400 #### [facility] [address] [place], [address] Calcium [Mass/Vol] 8.2 mg/dL Normal 7.6-11.0 [facility] Comment on above: Order Comment: REDRA W. PREVIOUS SPECIMEN REJECTED DUE TO RESULTS NOT COMING THROUGH AND SEEM TO BE ERRONEOUS. 01/22/25219 Mora Patel. NOTIFIED DELMY FOR REDRAW Performed By: #### L 509.7001, L100.0100, L503.6005, L503.7505, L501.3620, L500.2500, L501.5200, L500.3400 #### [facility] [address] [place], [address] Chloride [Moles/Vol] 104 mmol/L Normal 98-[address] [facility] Comment on above: Order Comment: REDRA W. PREVIOUS SPECIMEN REJECTED DUE TO RESULTS NOT COMING THROUGH AND SEEM TO BE ERRONEOUS. 01/22/25219 Mora Patel. NOTIFIED DELMY FOR REDRAW Performed By: #### L 509.7001, L100.0100, L503.6005, L503.7505, L501.3620, L500.2500, L501.5200, L500.3400 #### [facility] [address] [place], [address] CO2 [Moles/Vol] 21.2 mmol/L Normal 21.0-32.0 [facility] Comment on above: Order Comment: REDRA W. PREVIOUS SPECIMEN REJECTED DUE TO RESULTS NOT COMING THROUGH AND SEEM TO BE ERRONEOUS. 01/22/25219 Mora Patel. NOTIFIED DELMY FOR REDRAW Performed By: #### L 509.7001, L100.0100, L503.6005, L503.7505, L501.3620, L500.2500, L501.5200, L500.3400 #### [facility] [address] [place], [address] Creatinine [Mass/Vol] 0.46 mg/dL Low 0.70-1.20 [facility] Comment on above: Order Comment: REDRA W. PREVIOUS SPECIMEN REJECTED DUE TO RESULTS NOT COMING THROUGH AND SEEM TO BE ERRONEOUS. 01/22/25219 Mora Patel. NOTIFIED DELMY FOR REDRAW Performed By: #### L 509.7001, L100.0100, L503.6005, L503.7505, L501.3620, L500.2500, L501.5200, L500.3400 #### [facility] [address] [place], [place], [phone] (610) GAP 9 Normal 5-15 [facility] Comment on above: Order Comment: REDRA W. PREVIOUS SPECIMEN REJECTED DUE TO RESULTS NOT COMING THROUGH AND SEEM TO BE ERRONEOUS. 01/22/25219 Mora Patel. NOTIFIED DELMY FOR REDRAW Performed By: #### L 509.7001, L100.0100, L503.6005, L503.7505, L501.3620, L500.2500, L501.5200, L500.3400 #### [facility] [address] [place], [place], [phone] (024) GFR/1.73 sq M.predicted among non-blacks MDRD (S/P/Bld) [Vol rate/Area] 112 mL/min/{1.73_m2} Normal >60 [facility] Comment on above: Order Comment: REDRA W. PREVIOUS SPECIMEN REJECTED DUE TO RESULTS NOT COMING THROUGH AND SEEM TO BE ERRONEOUS. 01/22/25219 Mora Patel. NOTIFIED DEMLY FOR REDRAW Result Comment: mL/m in/1.73m2 CKD-EPI Creatinine Equation (2020) Performed By: #### L 509.7001, L100.0100, L503.6005, L503.7505, L501.3620, L500.2500, L501.5200, L500.3400 #### [facility] [address] [place], [place], [phone]) Globulin (S) [Mass/Vol] 3.6 g/dL Normal 2.2-4.2 [facility] Comment on above: Order Comment: REDRA W. PREVIOUS SPECIMEN REJECTED DUE TO RESULTS NOT COMING THROUGH AND SEEM TO BE ERRONEOUS. 01/22/25219 Mora Patel. NOTIFIED DELMY FOR REDRAW Performed By: #### L 509.7001, L100.0100, L503.6005, L503.7505, L501.3620, L500.2500, L501.5200, L500.3400 #### [facility] [address] [place], [address] Glucose [Mass/Vol] 83 mg/dL Normal 70-99 [facility] Comment on above: Order Comment: REDRA W. PREVIOUS SPECIMEN REJECTED DUE TO RESULTS NOT COMING THROUGH AND SEEM TO BE ERRONEOUS. 01/22/25219 Mora Patel. NOTIFIED DELMY FOR REDRAW Performed By: #### L 509.7001, L100.0100, L503.6005, L503.7505, L501.3620, L500.2500, L501.5200, L500.3400 #### [facility] [address] [place], [address] Potassium [Moles/Vol] 4.3 mmol/L Normal 3.3-5.1 [facility] Comment on above: Order Comment: REDRA W. PREVIOUS SPECIMEN REJECTED DUE TO RESULTS NOT COMING THROUGH AND SEEM TO BE ERRONEOUS. 01/22/25219 Mora Patel. NOTIFIED DELMY FOR REDRAW Result Comment: Hemo lysis present, Results??could be affected. ?? Performed By: #### L 509.7001, L100.0100, L503.6005, L503.7505, L501.3620, L500.2500, L501.5200, L500.3400 #### [facility] [address] [place], [address] Sodium [Moles/Vol] 135 mmol/L Normal 133-145 [facility] Comment on above: Order Comment: REDRA W. PREVIOUS SPECIMEN REJECTED DUE TO RESULTS NOT COMING THROUGH AND SEEM TO BE ERRONEOUS. 01/22/25219 Mora Patel. NOTIFIED DELMY FOR REDRAW Performed By: #### L 509.7001, L100.0100, L503.6005, L503.7505, L501.3620, L500.2500, L501.5200, L500.3400 #### [facility] [address] [place], [address] T PROT 5.8 g/dL Low 5.9-8.4 [facility] Comment on above: Order Comment: REDRA W. PREVIOUS SPECIMEN REJECTED DUE TO RESULTS NOT COMING THROUGH AND SEEM TO BE ERRONEOUS. 01/22/25219 Mora Patel. NOTIFIED DELMY FOR REDRAW Performed By: #### L 509.7001, L100.0100, L503.6005, L503.7505, L501.3620, L500.2500, L501.5200, L500.3400 #### [facility] [address] [place], [address] Urea nitrogen [Mass/Vol] 6 mg/dL Normal 4-19 [facility] Comment on above: Order Comment: REDRA W. PREVIOUS SPECIMEN REJECTED DUE TO RESULTS NOT COMING THROUGH AND SEEM TO BE ERRONEOUS. 01/22/25219 Mora Patel. NOTIFIED DELMY FOR REDRAW Performed By: #### L 509.7001, L100.0100, L503.6005, L503.7505, L501.3620, L500.2500, L501.5200, L500.3400 #### [facility] [address] [place], [address] Pro- Brain NATRIURETIC PEPTI Ashlee 03-17-2025 Natriuretic peptide B (Bld) [Mass/Vol] 443 pg/mL Normal <=900 [facility] Comment on above: Order Comment: REDRA [...] L503.6005, L503.7505, L501.3620, L500.2500, L501.5200, L500.3400 #### [facility] [place], [address] Wound Cultureon 03-11-2025 #2 [facility] REPORT ACINETOBACTER BAUMANNII CARBAPENEMASE MOLECULAR [...] TMP SMX Islt TAMMY <=20 S Normal [facility] Comment on above: Performed By: #### L 509.7001, L100.0100, L503.6005, L503.7505, L501.3620, L500.2500, L501.5200, L500.3400 #### [facility] [address] [place], [address] CBC W/Diff, Automatedon 10-2 Absolute Lymph 0.58 X10 3/uL Low 0.83-4.51 [facility] Comment on above: Order Comment: REDRA W. PREVIOUS SPECIMEN REJECTED DUE TO RESULTS NOT COMING THROUGH AND SEEM TO BE ERRONEOUS. 01/22/25219 Mora Patel. NOTIFIED DELMY FOR REDRAW Performed By: #### L 509.7001, L100.0100, L503.6005, L503.7505, L501.3620, L500.2500, L501.5200, L500.3400 #### [facility] [address] [place], [address] Absolute Neut 14.2 X10 3/uL High 2.0-7.7 [facility] Comment on above: Order Comment: REDRA W. PREVIOUS SPECIMEN REJECTED DUE TO RESULTS NOT COMING THROUGH AND SEEM TO BE ERRONEOUS. 01/22/25219 Mora Patel. NOTIFIED DELMY FOR REDRAW Performed By: #### L 509.7001, L100.0100, L503.6005, L503.7505, L501.3620, L500.2500, L501.5200, L500.3400 #### [facility] [address] [place], [address] Basophils/100 WBC (Bld) 0.5 % Normal 0-1 [facility] Comment on above: Order Comment: REDRA W. PREVIOUS SPECIMEN REJECTED DUE TO RESULTS NOT COMING THROUGH AND SEEM TO BE ERRONEOUS. 01/22/25219 Mora Patel. NOTIFIED DELMY FOR REDRAW Performed By: #### L 509.7001, L100.0100, L503.6005, L503.7505, L501.3620, L500.2500, L501.5200, L500.3400 #### [facility] [address] [place], [address] Eosinophils/100 WBC (Bld) 1.8 % Normal 0-5 [facility] Comment on above: Order Comment: REDRA W. PREVIOUS SPECIMEN REJECTED DUE TO RESULTS NOT COMING THROUGH AND SEEM TO BE ERRONEOUS. 01/22/25219 Mora Patel. NOTIFIED DELMY FOR REDRAW Performed By: #### L 509.7001, L100.0100, L503.6005, L503.7505, L501.3620, L500.2500, L501.5200, L500.3400 #### [facility] [address] [place], [address] Erythrocyte distribution width (RBC) [Ratio] 15.0 % High 11.6-14.6 [facility] Comment on above: Order Comment: REDRA W. PREVIOUS SPECIMEN REJECTED DUE TO RESULTS NOT COMING THROUGH AND SEEM TO BE ERRONEOUS. 01/22/25219 Mora Patel. NOTIFIED DELMY FOR REDRAW Performed By: #### L 509.7001, L100.0100, L503.6005, L503.7505, L501.3620, L500.2500, L501.5200, L500.3400 #### [facility] [address] [place], [address] Hematocrit (Bld) [Volume fraction] 34.6 % Low 40-54 [facility] Comment on above: Order Comment: REDRA W. PREVIOUS SPECIMEN REJECTED DUE TO RESULTS NOT COMING THROUGH AND SEEM TO BE ERRONEOUS. 01/22/25219 Mora Patel. NOTIFIED DELMY FOR REDRAW Performed By: #### L 509.7001, L100.0100, L503.6005, L503.7505, L501.3620, L500.2500, L501.5200, L500.3400 #### [facility] [address] [place], [address] Hemoglobin (Bld) [Mass/Vol] 10.8 g/dL Low 13.0-16.5 [facility] Comment on above: Order Comment: REDRA W. PREVIOUS SPECIMEN REJECTED DUE TO RESULTS NOT COMING THROUGH AND SEEM TO BE ERRONEOUS. 01/22/25219 Mora Patel. NOTIFIED DELMY FOR REDRAW Performed By: #### L 509.7001, L100.0100, L503.6005, L503.7505, L501.3620, L500.2500, L501.5200, L500.3400 #### [facility] [address] [place], [address] IG% 1.100 High 0.0-0.9 [facility] Comment on above: Order Comment: REDRA W. PREVIOUS SPECIMEN REJECTED DUE TO RESULTS NOT COMING THROUGH AND SEEM TO BE ERRONEOUS. 01/22/25219 Mora Patel. NOTIFIED DELMY FOR REDRAW Result Comment: IG% - Immature Granulocytes (promyelocytes, myelocytes and metamyelocytes) > 1% indicates that a LEFT SHIFT is Present. Performed By: #### L 509.7001, L100.0100, L503.6005, L503.7505, L501.3620, L500.2500, L501.5200, L500.3400 #### [facility] [address] [place], [address] Lymphocytes/100 WBC (Bld) 3.7 % Low 19-41 [facility] Comment on above: Order Comment: REDRA W. PREVIOUS SPECIMEN REJECTED DUE TO RESULTS NOT COMING THROUGH AND SEEM TO BE ERRONEOUS. 01/22/25219 Mora Patel. NOTIFIED DELMY FOR REDRAW Performed By: #### L 509.7001, L100.0100, L503.6005, L503.7505, L501.3620, L500.2500, L501.5200, L500.3400 #### [facility] [address] [place], [address] MCH (RBC) [Entitic mass] 28.7 pg Normal 27.0-32.0 [facility] Comment on above: Order Comment: REDRA W. PREVIOUS SPECIMEN REJECTED DUE TO RESULTS NOT COMING THROUGH AND SEEM TO BE ERRONEOUS. 01/22/25219 Mora Patel. NOTIFIED DELMY FOR REDRAW Performed By: #### L 509.7001, L100.0100, L503.6005, L503.7505, L501.3620, L500.2500, L501.5200, L500.3400 #### [facility] [address] [place], [address] MCHC (RBC) [Mass/Vol] 31.2 g/dL Low 32-36 [facility] Comment on above: Order Comment: REDRA W. PREVIOUS SPECIMEN REJECTED DUE TO RESULTS NOT COMING THROUGH AND SEEM TO BE ERRONEOUS. 01/22/25219 Mora Patel. NOTIFIED DELMY FOR REDRAW Performed By: #### L 509.7001, L100.0100, L503.6005, L503.7505, L501.3620, L500.2500, L501.5200, L500.3400 #### [facility] [address] [place], [address] MCV (RBC) [Entitic vol] 92.0 fL Normal 80-94 [facility] Comment on above: Order Comment: REDRA W. PREVIOUS SPECIMEN REJECTED DUE TO RESULTS NOT COMING THROUGH AND SEEM TO BE ERRONEOUS. 01/22/25219 Mora Patel. NOTIFIED DELMY FOR REDRAW Performed By: #### L 509.7001, L100.0100, L503.6005, L503.7505, L501.3620, L500.2500, L501.5200, L500.3400 #### [facility] [address] [place], [address] Monocytes/100 WBC (Bld) 1.2 % Normal 0-10 [facility] Comment on above: Order Comment: REDRA W. PREVIOUS SPECIMEN REJECTED DUE TO RESULTS NOT COMING THROUGH AND SEEM TO BE ERRONEOUS. 01/22/25219 Mora Patel. NOTIFIED DELMY FOR REDRAW Performed By: #### L 509.7001, L100.0100, L503.6005, L503.7505, L501.3620, L500.2500, L501.5200, L500.3400 #### [facility] [address] [place], [address] Neutrophils/100 WBC (Bld) 91.7 % High 47-70 [facility] Comment on above: Order Comment: REDRA W. PREVIOUS SPECIMEN REJECTED DUE TO RESULTS NOT COMING THROUGH AND SEEM TO BE ERRONEOUS. 01/22/25219 Mora Patel. NOTIFIED DELMY FOR REDRAW Performed By: #### L 509.7001, L100.0100, L503.6005, L503.7505, L501.3620, L500.2500, L501.5200, L500.3400 #### [facility] [address] [place], [address] Nucleated RBC (Bld) [#/Vol] 0 10*3/uL Normal 0-5 [facility] Comment on above: Order Comment: REDRA W. PREVIOUS SPECIMEN REJECTED DUE TO RESULTS NOT COMING THROUGH AND SEEM TO BE ERRONEOUS. 01/22/25219 Mora Patel. NOTIFIED DELMY FOR REDRAW Performed By: #### L 509.7001, L100.0100, L503.6005, L503.7505, L501.3620, L500.2500, L501.5200, L500.3400 #### [facility] [address] [place], [address] Platelet mean volume (Bld) [Entitic vol] 9.0 fL Normal 6.2-12.0 [facility] Comment on above: Order Comment: REDRA W. PREVIOUS SPECIMEN REJECTED DUE TO RESULTS NOT COMING THROUGH AND SEEM TO BE ERRONEOUS. 01/22/25219 Mora Patel. NOTIFIED DELMY FOR REDRAW Performed By: #### L 509.7001, L100.0100, L503.6005, L503.7505, L501.3620, L500.2500, L501.5200, L500.3400 #### [facility] [address] [place], [address] Platelets (Bld) [#/Vol] 327 10*3/uL Normal 150-450 [facility] Comment on above: Order Comment: REDRA W. PREVIOUS SPECIMEN REJECTED DUE TO RESULTS NOT COMING THROUGH AND SEEM TO BE ERRONEOUS. 01/22/25219 Mora Patel. NOTIFIED DELMY FOR REDRAW Performed By: #### L 509.7001, L100.0100, L503.6005, L503.7505, L501.3620, L500.2500, L501.5200, L500.3400 #### [facility] [address] [place], [address] RBC (Bld) [#/Vol] 3.76 10*6/uL Low 4.6-6.2 [facility] Comment on above: Order Comment: REDRA W. PREVIOUS SPECIMEN REJECTED DUE TO RESULTS NOT COMING THROUGH AND SEEM TO BE ERRONEOUS. 01/22/25219 Mora Patel. NOTIFIED DELMY FOR REDRAW Performed By: #### L 509.7001, L100.0100, L503.6005, L503.7505, L501.3620, L500.2500, L501.5200, L500.3400 #### [facility] [address] [place], [address] RDW SD 50.4 fl High 35.1-43.9 [facility] Comment on above: Order Comment: REDRA W. PREVIOUS SPECIMEN REJECTED DUE TO RESULTS NOT COMING THROUGH AND SEEM TO BE ERRONEOUS. 01/22/25219 Mora Patel. NOTIFIED DELMY FOR REDRAW Performed By: #### L 509.7001, L100.0100, L503.6005, L503.7505, L501.3620, L500.2500, L501.5200, L500.3400 #### [facility] [address] [place], [place], [phone] WBC (Bld) [#/Vol] 15.5 10*3/uL High 4.4-11.0 [facility] Comment on above: Order Comment: REDRA W. PREVIOUS SPECIMEN REJECTED DUE TO RESULTS NOT COMING THROUGH AND SEEM TO BE ERRONEOUS. 01/22/25219 Mora Patel. NOTIFIED DELMY FOR REDRAW Performed By: #### L 509.7001, L100.0100, L503.6005, L503.7505, L501.3620, L500.2500, L501.5200, L500.3400 #### [facility] [address] [place], [place], [id number] CRPon 03-10-2025 C-REACTIVE PROT 21.40 mg/L High 0.0-3.0 [facility] Comment on above: Order Comment: REDRA W. PREVIOUS SPECIMEN REJECTED DUE TO RESULTS NOT COMING THROUGH AND SEEM TO BE ERRONEOUS. 01/22/25219 Mora Patel. NOTIFIED DELMY FOR REDRAW Performed By: #### L 509.7001, L100.0100, L503.6005, L503.7505, L501.3620, L500.2500, L501.5200, L500.3400 #### [facility] [address] [place], [place], [id number] Comprehensive Metabolic Prof ilon 03-10-2025 Albumin [Mass/Vol] 2.4 g/dL Low 3.4-4.8 [facility] Comment on above: Order Comment: REDRA W. PREVIOUS SPECIMEN REJECTED DUE TO RESULTS NOT COMING THROUGH AND SEEM TO BE ERRONEOUS. 01/22/25219 Mora Patel. NOTIFIED DELMY FOR REDRAW Performed By: #### L 509.7001, L100.0100, L503.6005, L503.7505, L501.3620, L500.2500, L501.5200, L500.3400 #### [facility] [address] [place], [address] Albumin/Globulin [Mass ratio] 0.5 {ratio} Low 0.9-2.4 [facility] Comment on above: Order Comment: REDRA W. PREVIOUS SPECIMEN REJECTED DUE TO RESULTS NOT COMING THROUGH AND SEEM TO BE ERRONEOUS. 01/22/25219 Mora Patel. NOTIFIED DELMY FOR REDRAW Performed By: #### L 509.7001, L100.0100, L503.6005, L503.7505, L501.3620, L500.2500, L501.5200, L500.3400 #### [facility] [address] [place], [address] (889 ALK PHOS 76 U/L Normal 40-129 [facility] Comment on above: Order Comment: REDRA W. PREVIOUS SPECIMEN REJECTED DUE TO RESULTS NOT COMING THROUGH AND SEEM TO BE ERRONEOUS. 01/22/25219 Mora Patel. NOTIFIED DELMY FOR REDRAW Performed By: #### L 509.7001, L100.0100, L503.6005, L503.7505, L501.3620, L500.2500, L501.5200, L500.3400 #### [facility] [address] [place], [place], [phone] (925 ALT [Catalytic activity/Vol] 14 U/L Normal <=46 [facility] Comment on above: Order Comment: REDRA W. PREVIOUS SPECIMEN REJECTED DUE TO RESULTS NOT COMING THROUGH AND SEEM TO BE ERRONEOUS. 01/22/25219 Mora Patel. NOTIFIED DELMY FOR REDRAW Performed By: #### L 509.7001, L100.0100, L503.6005, L503.7505, L501.3620, L500.2500, L501.5200, L500.3400 #### [facility] [address] [place], [address] AST [Catalytic activity/Vol] 32 U/L Normal <=37 [facility] Comment on above: Order Comment: REDRA W. PREVIOUS SPECIMEN REJECTED DUE TO RESULTS NOT COMING THROUGH AND SEEM TO BE ERRONEOUS. 01/22/25219 Mora Patel. NOTIFIED DELMY FOR REDRAW Performed By: #### L 509.7001, L100.0100, L503.6005, L503.7505, L501.3620, L500.2500, L501.5200, L500.3400 #### [facility] [address] [place], [address] Bilirubin [Mass/Vol] 0.56 mg/dL Normal 0.00-1.[address] [facility] Comment on above: Order Comment: REDRA W. PREVIOUS SPECIMEN REJECTED DUE TO RESULTS NOT COMING THROUGH AND SEEM TO BE ERRONEOUS. 01/22/25219 Mora Patel. NOTIFIED DELMY FOR REDRAW Performed By: #### L 509.7001, L100.0100, L503.6005, L503.7505, L501.3620, L500.2500, L501.5200, L500.3400 #### [facility] [address] [place], [address] BUN/CRE 12.7 RATIO Normal 10-20 [facility] Comment on above: Order Comment: REDRA W. PREVIOUS SPECIMEN REJECTED DUE TO RESULTS NOT COMING THROUGH AND SEEM TO BE ERRONEOUS. 01/22/25219 Mora Patel. NOTIFIED DELMY FOR REDRAW Performed By: #### L 509.7001, L100.0100, L503.6005, L503.7505, L501.3620, L500.2500, L501.5200, L500.3400 #### [facility] [address] [place], [address] Calcium [Mass/Vol] 8.8 mg/dL Normal 7.6-11.0 [facility] Comment on above: Order Comment: REDRA W. PREVIOUS SPECIMEN REJECTED DUE TO RESULTS NOT COMING THROUGH AND SEEM TO BE ERRONEOUS. 01/22/25219 Mora Patel. NOTIFIED DELMY FOR REDRAW Performed By: #### L 509.7001, L100.0100, L503.6005, L503.7505, L501.3620, L500.2500, L501.5200, L500.3400 #### [facility] [address] [place], [place], [phone] (408) Chloride [Moles/Vol] 102 mmol/L Normal 98-[address] [facility] Comment on above: Order Comment: REDRA W. PREVIOUS SPECIMEN REJECTED DUE TO RESULTS NOT COMING THROUGH AND SEEM TO BE ERRONEOUS. 01/22/25219 Mora Patel. NOTIFIED DELMY FOR REDRAW Performed By: #### L 509.7001, L100.0100, L503.6005, L503.7505, L501.3620, L500.2500, L501.5200, L500.3400 #### [facility] [address] [place], [address] CO2 [Moles/Vol] 21.8 mmol/L Normal 21.0-32.0 [facility] Comment on above: Order Comment: REDRA W. PREVIOUS SPECIMEN REJECTED DUE TO RESULTS NOT COMING THROUGH AND SEEM TO BE ERRONEOUS. 01/22/25219 Mora Patel. NOTIFIED DELMY FOR REDRAW Performed By: #### L 509.7001, L100.0100, L503.6005, L503.7505, L501.3620, L500.2500, L501.5200, L500.3400 #### [facility] [address] [place], [place], [phone] (552) Creatinine [Mass/Vol] 0.45 mg/dL Low 0.70-1.20 [facility] Comment on above: Order Comment: REDRA W. PREVIOUS SPECIMEN REJECTED DUE TO RESULTS NOT COMING THROUGH AND SEEM TO BE ERRONEOUS. 01/22/25219 Mora Patel. NOTIFIED DELMY FOR REDRAW Performed By: #### L 509.7001, L100.0100, L503.6005, L503.7505, L501.3620, L500.2500, L501.5200, L500.3400 #### [facility] [address] [place], [place], [id number] GAP 13 Normal 5-15 [facility] Comment on above: Order Comment: REDRA W. PREVIOUS SPECIMEN REJECTED DUE TO RESULTS NOT COMING THROUGH AND SEEM TO BE ERRONEOUS. 01/22/25219 Mora Patel. NOTIFIED DELMY FOR REDRAW Performed By: #### L 509.7001, L100.0100, L503.6005, L503.7505, L501.3620, L500.2500, L501.5200, L500.3400 #### [facility] [address] [place], [address] GFR/1.73 sq M.predicted among non-blacks MDRD (S/P/Bld) [Vol rate/Area] 112 mL/min/{1.73_m2} Normal >60 [facility] Comment on above: Order Comment: REDRA W. PREVIOUS SPECIMEN REJECTED DUE TO RESULTS NOT COMING THROUGH AND SEEM TO BE ERRONEOUS. 01/22/25219 Mora Patel. NOTIFIED DELMY FOR REDRAW Result Comment: mL/m in/1.73m2 CKD-EPI Creatinine Equation (2020) Performed By: #### L 509.7001, L100.0100, L503.6005, L503.7505, L501.3620, L500.2500, L501.5200, L500.3400 #### [facility] [address] [place], [place], [phone] Globulin (S) [Mass/Vol] 4.7 g/dL High 2.2-4.2 [facility] Comment on above: Order Comment: REDRA W. PREVIOUS SPECIMEN REJECTED DUE TO RESULTS NOT COMING THROUGH AND SEEM TO BE ERRONEOUS. 01/22/25219 Mora Patel. NOTIFIED DELMY FOR REDRAW Performed By: #### L 509.7001, L100.0100, L503.6005, L503.7505, L501.3620, L500.2500, L501.5200, L500.3400 #### [facility] [address] [place], [address] Glucose [Mass/Vol] 71 mg/dL Normal 70-99 [facility] Comment on above: Order Comment: REDRA W. PREVIOUS SPECIMEN REJECTED DUE TO RESULTS NOT COMING THROUGH AND SEEM TO BE ERRONEOUS. 01/22/25219 Mora Patel. NOTIFIED DELMY FOR REDRAW Performed By: #### L 509.7001, L100.0100, L503.6005, L503.7505, L501.3620, L500.2500, L501.5200, L500.3400 #### [facility] [address] [place], [address] Potassium [Moles/Vol] 4.1 mmol/L Normal 3.3-5.1 [facility] Comment on above: Order Comment: REDRA W. PREVIOUS SPECIMEN REJECTED DUE TO RESULTS NOT COMING THROUGH AND SEEM TO BE ERRONEOUS. 01/22/25219 Mora Patel. NOTIFIED DELMY FOR REDRAW Performed By: #### L 509.7001, L100.0100, L503.6005, L503.7505, L501.3620, L500.2500, L501.5200, L500.3400 #### [facility] [address] [place], [address] Sodium [Moles/Vol] 137 mmol/L Normal 133-145 [facility] Comment on above: Order Comment: REDRA W. PREVIOUS SPECIMEN REJECTED DUE TO RESULTS NOT COMING THROUGH AND SEEM TO BE ERRONEOUS. 01/22/25219 Mora Patel. NOTIFIED DELMY FOR REDRAW Performed By: #### L 509.7001, L100.0100, L503.6005, L503.7505, L501.3620, L500.2500, L501.5200, L500.3400 #### [facility] [address] [place], [address] T PROT 7.1 g/dL Normal 5.9-8.4 [facility] Comment on above: Order Comment: REDRA W. PREVIOUS SPECIMEN REJECTED DUE TO RESULTS NOT COMING THROUGH AND SEEM TO BE ERRONEOUS. 01/22/25219 Mora Patel. NOTIFIED DELMY FOR REDRAW Performed By: #### L 509.7001, L100.0100, L503.6005, L503.7505, L501.3620, L500.2500, L501.5200, L500.3400 #### [facility] [address] [place], [address] Urea nitrogen [Mass/Vol] 6 mg/dL Normal 4-19 [facility] Comment on above: Order Comment: REDRA W. PREVIOUS SPECIMEN REJECTED DUE TO RESULTS NOT COMING THROUGH AND SEEM TO BE ERRONEOUS. 01/22/25219 Mora Patel. NOTIFIED DELMY FOR REDRAW Performed By: #### L 509.7001, L100.0100, L503.6005, L503.7505, L501.3620, L500.2500, L501.5200, L500.3400 #### [facility] [address] [place], [place], [id number] Magnesiumon 03-10-2025 Magnesium [Mass/Vol] 2.0 mg/dL Normal 1.5-2.[address] [facility] Comment on above: Order Comment: REDRA W. PREVIOUS SPECIMEN REJECTED DUE TO RESULTS NOT COMING THROUGH AND SEEM TO BE ERRONEOUS. 01/22/25219 Mora Patel. NOTIFIED DELMY FOR REDRAW Performed By: #### L 509.7001, L100.0100, L503.6005, L503.7505, L501.3620, L500.2500, L501.5200, L500.3400 #### [facility] [address] [place], [address] CBC W/Diff, Automatedon - Absolute Lymph 0.88 X10 3/uL Normal 0.83-4.51 [facility] Comment on above: Order Comment: REDRA W. PREVIOUS SPECIMEN REJECTED DUE TO RESULTS NOT COMING THROUGH AND SEEM TO BE ERRONEOUS. 01/22/25219 Mora Patel. NOTIFIED DELMY FOR REDRAW Performed By: #### L 509.7001, L100.0100, L503.6005, L503.7505, L501.3620, L500.2500, L501.5200, L500.3400 #### [facility] [address] [place], [address] Absolute Neut 3.6 X10 3/uL Normal 2.0-7.7 [facility] Comment on above: Order Comment: REDRA W. PREVIOUS SPECIMEN REJECTED DUE TO RESULTS NOT COMING THROUGH AND SEEM TO BE ERRONEOUS. 01/22/25219 Mora Patel. NOTIFIED DELMY FOR REDRAW Performed By: #### L 509.7001, L100.0100, L503.6005, L503.7505, L501.3620, L500.2500, L501.5200, L500.3400 #### [facility] [address] [place], [address] Basophils/100 WBC (Bld) 1.2 % High 0-1 [facility] Comment on above: Order Comment: REDRA W. PREVIOUS SPECIMEN REJECTED DUE TO RESULTS NOT COMING THROUGH AND SEEM TO BE ERRONEOUS. 01/22/25219 Mora Patel. NOTIFIED DELMY FOR REDRAW Performed By: #### L 509.7001, L100.0100, L503.6005, L503.7505, L501.3620, L500.2500, L501.5200, L500.3400 #### [facility] [address] [place], [address] Eosinophils/100 WBC (Bld) 5.1 % High 0-5 [facility] Comment on above: Order Comment: REDRA W. PREVIOUS SPECIMEN REJECTED DUE TO RESULTS NOT COMING THROUGH AND SEEM TO BE ERRONEOUS. 01/22/25219 Mora Patel. NOTIFIED DELMY FOR REDRAW Performed By: #### L 509.7001, L100.0100, L503.6005, L503.7505, L501.3620, L500.2500, L501.5200, L500.3400 #### [facility] [address] [place], [address] Erythrocyte distribution width (RBC) [Ratio] 15.7 % High 11.6-14.6 [facility] Comment on above: Order Comment: REDRA W. PREVIOUS SPECIMEN REJECTED DUE TO RESULTS NOT COMING THROUGH AND SEEM TO BE ERRONEOUS. 01/22/25219 Mora Patel. NOTIFIED DELMY FOR REDRAW Performed By: #### L 509.7001, L100.0100, L503.6005, L503.7505, L501.3620, L500.2500, L501.5200, L500.3400 #### [facility] [address] [place], [place], [phone] Hematocrit (Bld) [Volume fraction] 32.2 % Low 40-54 [facility] Comment on above: Order Comment: REDRA W. PREVIOUS SPECIMEN REJECTED DUE TO RESULTS NOT COMING THROUGH AND SEEM TO BE ERRONEOUS. 01/22/25219 Mora Patel. NOTIFIED DELMY FOR REDRAW Performed By: #### L 509.7001, L100.0100, L503.6005, L503.7505, L501.3620, L500.2500, L501.5200, L500.3400 #### [facility] [address] [place], [place], [phone] Hemoglobin (Bld) [Mass/Vol] 9.8 g/dL Low 13.0-16.5 [facility] Comment on above: Order Comment: REDRA W. PREVIOUS SPECIMEN REJECTED DUE TO RESULTS NOT COMING THROUGH AND SEEM TO BE ERRONEOUS. 01/22/25219 Mora Patel. NOTIFIED DELMY FOR REDRAW Performed By: #### L 509.7001, L100.0100, L503.6005, L503.7505, L501.3620, L500.2500, L501.5200, L500.3400 #### [facility] [address] [place], [address] IG% 0.900 Normal 0.0-0.9 [facility] Comment on above: Order Comment: REDRA W. PREVIOUS SPECIMEN REJECTED DUE TO RESULTS NOT COMING THROUGH AND SEEM TO BE ERRONEOUS. 01/22/25219 Mora Patel. NOTIFIED DELMY FOR REDRAW Result Comment: IG% - Immature Granulocytes (promyelocytes, myelocytes and metamyelocytes) > 1% indicates that a LEFT SHIFT is Present. Performed By: #### L 509.7001, L100.0100, L503.6005, L503.7505, L501.3620, L500.2500, L501.5200, L500.3400 #### [facility] [address] [place], [address] Lymphocytes/100 WBC (Bld) 15.1 % Low 19-41 [facility] Comment on above: Order Comment: REDRA W. PREVIOUS SPECIMEN REJECTED DUE TO RESULTS NOT COMING THROUGH AND SEEM TO BE ERRONEOUS. 01/22/25219 Mora Patel. NOTIFIED DELMY FOR REDRAW Performed By: #### L 509.7001, L100.0100, L503.6005, L503.7505, L501.3620, L500.2500, L501.5200, L500.3400 #### [facility] [address] [place], [address] MCH (RBC) [Entitic mass] 28.5 pg Normal 27.0-32.0 [facility] Comment on above: Order Comment: REDRA W. PREVIOUS SPECIMEN REJECTED DUE TO RESULTS NOT COMING THROUGH AND SEEM TO BE ERRONEOUS. 01/22/25219 Mora Patel. NOTIFIED DELMY FOR REDRAW Performed By: #### L 509.7001, L100.0100, L503.6005, L503.7505, L501.3620, L500.2500, L501.5200, L500.3400 #### [facility] [address] [place], [address] MCHC (RBC) [Mass/Vol] 30.4 g/dL Low 32-36 [facility] Comment on above: Order Comment: REDRA W. PREVIOUS SPECIMEN REJECTED DUE TO RESULTS NOT COMING THROUGH AND SEEM TO BE ERRONEOUS. 01/22/25219 Mora Patel. NOTIFIED DELMY FOR REDRAW Performed By: #### L 509.7001, L100.0100, L503.6005, L503.7505, L501.3620, L500.2500, L501.5200, L500.3400 #### [facility] [address] [place], [address] MCV (RBC) [Entitic vol] 93.6 fL Normal 80-94 [facility] Comment on above: Order Comment: REDRA W. PREVIOUS SPECIMEN REJECTED DUE TO RESULTS NOT COMING THROUGH AND SEEM TO BE ERRONEOUS. 01/22/25219 Mora Patel. NOTIFIED DELMY FOR REDRAW Performed By: #### L 509.7001, L100.0100, L503.6005, L503.7505, L501.3620, L500.2500, L501.5200, L500.3400 #### [facility] [address] [place], [address] Monocytes/100 WBC (Bld) 16.4 % High 0-10 W [facility] Comment on above: Order Comment: REDRA W. PREVIOUS SPECIMEN REJECTED DUE TO RESULTS NOT COMING THROUGH AND SEEM TO BE ERRONEOUS. 01/22/25219 Mora Patel. NOTIFIED DELMY FOR REDRAW Performed By: #### L 509.7001, L100.0100, L503.6005, L503.7505, L501.3620, L500.2500, L501.5200, L500.3400 #### [facility] [address] [place], [address] Neutrophils/100 WBC (Bld) 61.3 % Normal 47-70 [facility] Comment on above: Order Comment: REDRA W. PREVIOUS SPECIMEN REJECTED DUE TO RESULTS NOT COMING THROUGH AND SEEM TO BE ERRONEOUS. 01/22/25219 Mora Patel. NOTIFIED DELMY FOR REDRAW Performed By: #### L 509.7001, L100.0100, L503.6005, L503.7505, L501.3620, L500.2500, L501.5200, L500.3400 #### [facility] [address] [place], [address] Nucleated RBC (Bld) [#/Vol] 0 10*3/uL Normal 0-5 [facility] Comment on above: Order Comment: REDRA W. PREVIOUS SPECIMEN REJECTED DUE TO RESULTS NOT COMING THROUGH AND SEEM TO BE ERRONEOUS. 01/22/25219 Mora Patel. NOTIFIED DELMY FOR REDRAW Performed By: #### L 509.7001, L100.0100, L503.6005, L503.7505, L501.3620, L500.2500, L501.5200, L500.3400 #### [facility] [address] [place], [address] Platelet mean volume (Bld) [Entitic vol] 8.3 fL Normal 6.2-12.0 [facility] Comment on above: Order Comment: REDRA W. PREVIOUS SPECIMEN REJECTED DUE TO RESULTS NOT COMING THROUGH AND SEEM TO BE ERRONEOUS. 01/22/25219 Mora Patel. NOTIFIED DELMY FOR REDRAW Performed By: #### L 509.7001, L100.0100, L503.6005, L503.7505, L501.3620, L500.2500, L501.5200, L500.3400 #### [facility] [address] [place], [address] Platelets (Bld) [#/Vol] 350 10*3/uL Normal 150-450 [facility] Comment on above: Order Comment: REDRA W. PREVIOUS SPECIMEN REJECTED DUE TO RESULTS NOT COMING THROUGH AND SEEM TO BE ERRONEOUS. 01/22/25219 Mora Patel. NOTIFIED DELMY FOR REDRAW Performed By: #### L 509.7001, L100.0100, L503.6005, L503.7505, L501.3620, L500.2500, L501.5200, L500.3400 #### [facility] [address] [place], [address] RBC (Bld) [#/Vol] 3.44 10*6/uL Low 4.6-6.2 [facility] Comment on above: Order Comment: REDRA W. PREVIOUS SPECIMEN REJECTED DUE TO RESULTS NOT COMING THROUGH AND SEEM TO BE ERRONEOUS. 01/22/25219 Mora Patel. NOTIFIED DELMY FOR REDRAW Performed By: #### L 509.7001, L100.0100, L503.6005, L503.7505, L501.3620, L500.2500, L501.5200, L500.3400 #### [facility] [address] [place], [address] RDW SD 53.7 fl High 35.1-43.9 [facility] Comment on above: Order Comment: REDRA W. PREVIOUS SPECIMEN REJECTED DUE TO RESULTS NOT COMING THROUGH AND SEEM TO BE ERRONEOUS. 01/22/25219 Mora Patel. NOTIFIED DELMY FOR REDRAW Performed By: #### L 509.7001, L100.0100, L503.6005, L503.7505, L501.3620, L500.2500, L501.5200, L500.3400 #### [facility] [address] [place], [address] WBC (Bld) [#/Vol] 5.8 10*3/uL Normal 4.4-11.0 [facility] Comment on above: Order Comment: REDRA W. PREVIOUS SPECIMEN REJECTED DUE TO RESULTS NOT COMING THROUGH AND SEEM TO BE ERRONEOUS. 01/22/25219 Mora Patel. NOTIFIED DELMY FOR REDRAW Performed By: #### L 509.7001, L100.0100, L503.6005, L503.7505, L501.3620, L500.2500, L501.5200, L500.3400 #### [facility] [address] [place], [address] CRPon 03-03-2025 C-REACTIVE PROT 49.60 mg/L High 0.0-3.0 [facility] Comment on above: Order Comment: REDRA W. PREVIOUS SPECIMEN REJECTED DUE TO RESULTS NOT COMING THROUGH AND SEEM TO BE ERRONEOUS. 01/22/25219 Mora Patel. NOTIFIED DELMY FOR REDRAW Performed By: #### L 509.7001, L100.0100, L503.6005, L503.7505, L501.3620, L500.2500, L501.5200, L500.3400 #### [facility] [address] [place], [address] Comprehensive Metabolic Prof ilon 03-03-2025 Albumin [Mass/Vol] 2.2 g/dL Low 3.4-4.8 [facility] Comment on above: Order Comment: REDRA W. PREVIOUS SPECIMEN REJECTED DUE TO RESULTS NOT COMING THROUGH AND SEEM TO BE ERRONEOUS. 01/22/25219 Mora Patel. NOTIFIED DELMY FOR REDRAW Performed By: #### L 509.7001, L100.0100, L503.6005, L503.7505, L501.3620, L500.2500, L501.5200, L500.3400 #### [facility] [address] [place], [place], [id number] Albumin/Globulin [Mass ratio] 0.5 {ratio} Low 0.9-2.4 [facility] Comment on above: Order Comment: REDRA W. PREVIOUS SPECIMEN REJECTED DUE TO RESULTS NOT COMING THROUGH AND SEEM TO BE ERRONEOUS. 01/22/25219 Mora Patel. NOTIFIED DELMY FOR REDRAW Performed By: #### L 509.7001, L100.0100, L503.6005, L503.7505, L501.3620, L500.2500, L501.5200, L500.3400 #### [facility] [address] [place], [address] ALK PHOS 87 U/L Normal 40-129 [facility] Comment on above: Order Comment: REDRA W. PREVIOUS SPECIMEN REJECTED DUE TO RESULTS NOT COMING THROUGH AND SEEM TO BE ERRONEOUS. 01/22/25219 Mora Patel. NOTIFIED DELMY FOR REDRAW Performed By: #### L 509.7001, L100.0100, L503.6005, L503.7505, L501.3620, L500.2500, L501.5200, L500.3400 #### [facility] [address] [place], [address] ALT [Catalytic activity/Vol] 7 U/L Normal <=46 [facility] Comment on above: Order Comment: REDRA W. PREVIOUS SPECIMEN REJECTED DUE TO RESULTS NOT COMING THROUGH AND SEEM TO BE ERRONEOUS. 01/22/25219 Mora Patel. NOTIFIED DELMY FOR REDRAW Performed By: #### L 509.7001, L100.0100, L503.6005, L503.7505, L501.3620, L500.2500, L501.5200, L500.3400 #### [facility] [address] [place], [address] AST [Catalytic activity/Vol] 25 U/L Normal <=37 [facility] Comment on above: Order Comment: REDRA W. PREVIOUS SPECIMEN REJECTED DUE TO RESULTS NOT COMING THROUGH AND SEEM TO BE ERRONEOUS. 01/22/25219 Mora Patel. NOTIFIED DELMY FOR REDRAW Performed By: #### L 509.7001, L100.0100, L503.6005, L503.7505, L501.3620, L500.2500, L501.5200, L500.3400 #### [facility] [address] [place], [address] Bilirubin [Mass/Vol] 0.40 mg/dL Normal 0.00-1.[address] [facility] Comment on above: Order Comment: REDRA W. PREVIOUS SPECIMEN REJECTED DUE TO RESULTS NOT COMING THROUGH AND SEEM TO BE ERRONEOUS. 01/22/25219 Mora Patel. NOTIFIED DELMY FOR REDRAW Performed By: #### L 509.7001, L100.0100, L503.6005, L503.7505, L501.3620, L500.2500, L501.5200, L500.3400 #### [facility] [address] [place], [address] BUN/CRE 8.4 RATIO Low 10-20 [facility] Comment on above: Order Comment: REDRA W. PREVIOUS SPECIMEN REJECTED DUE TO RESULTS NOT COMING THROUGH AND SEEM TO BE ERRONEOUS. 01/22/25219 Mora Patel. NOTIFIED DELMY FOR REDRAW Performed By: #### L 509.7001, L100.0100, L503.6005, L503.7505, L501.3620, L500.2500, L501.5200, L500.3400 #### [facility] [address] [place], [address] Calcium [Mass/Vol] 8.2 mg/dL Normal 7.6-11.0 [facility] Comment on above: Order Comment: REDRA W. PREVIOUS SPECIMEN REJECTED DUE TO RESULTS NOT COMING THROUGH AND SEEM TO BE ERRONEOUS. 01/22/25219 Mora Patel. NOTIFIED DELMY FOR REDRAW Performed By: #### L 509.7001, L100.0100, L503.6005, L503.7505, L501.3620, L500.2500, L501.5200, L500.3400 #### [facility] [address] [place], [address] Chloride [Moles/Vol] 97 mmol/L Low 98-[address] [facility] Comment on above: Order Comment: REDRA W. PREVIOUS SPECIMEN REJECTED DUE TO RESULTS NOT COMING THROUGH AND SEEM TO BE ERRONEOUS. 01/22/25219 Mora Patel. NOTIFIED DELMY FOR REDRAW Performed By: #### L 509.7001, L100.0100, L503.6005, L503.7505, L501.3620, L500.2500, L501.5200, L500.3400 #### [facility] [address] [place], [place], [phone] CO2 [Moles/Vol] 28.3 mmol/L Normal 21.0-32.0 [facility] Comment on above: Order Comment: REDRA W. PREVIOUS SPECIMEN REJECTED DUE TO RESULTS NOT COMING THROUGH AND SEEM TO BE ERRONEOUS. 01/22/25219 Mora Patel. NOTIFIED DELMY FOR REDRAW Performed By: #### L 509.7001, L100.0100, L503.6005, L503.7505, L501.3620, L500.2500, L501.5200, L500.3400 #### [facility] [address] [place], [place], [phone] Creatinine [Mass/Vol] 0.53 mg/dL Low 0.70-1.20 [facility] Comment on above: Order Comment: REDRA W. PREVIOUS SPECIMEN REJECTED DUE TO RESULTS NOT COMING THROUGH AND SEEM TO BE ERRONEOUS. 01/22/25219 Mora Patel. NOTIFIED DELMY FOR REDRAW Performed By: #### L 509.7001, L100.0100, L503.6005, L503.7505, L501.3620, L500.2500, L501.5200, L500.3400 #### [facility] [address] [place], [place], [phone] GAP 8 Normal 5-15 [facility] Comment on above: Order Comment: REDRA W. PREVIOUS SPECIMEN REJECTED DUE TO RESULTS NOT COMING THROUGH AND SEEM TO BE ERRONEOUS. 01/22/25219 Mora Patel. NOTIFIED DELMY FOR REDRAW Performed By: #### L 509.7001, L100.0100, L503.6005, L503.7505, L501.3620, L500.2500, L501.5200, L500.3400 #### [facility] [address] [place], [address] GFR/1.73 sq M.predicted among non-blacks MDRD (S/P/Bld) [Vol rate/Area] 107 mL/min/{1.73_m2} Normal >60 [facility] Comment on above: Order Comment: REDRA W. PREVIOUS SPECIMEN REJECTED DUE TO RESULTS NOT COMING THROUGH AND SEEM TO BE ERRONEOUS. 01/22/25219 Mora Patel. NOTIFIED DELMY FOR REDRAW Result Comment: mL/m in/1.73m2 CKD-EPI Creatinine Equation (2020) Performed By: #### L 509.7001, L100.0100, L503.6005, L503.7505, L501.3620, L500.2500, L501.5200, L500.3400 #### [facility] [address] [place], [place], [phone] Globulin (S) [Mass/Vol] 4.8 g/dL High 2.2-4.2 [facility] Comment on above: Order Comment: REDRA W. PREVIOUS SPECIMEN REJECTED DUE TO RESULTS NOT COMING THROUGH AND SEEM TO BE ERRONEOUS. 01/22/25219 Mora Patel. NOTIFIED DELMY FOR REDRAW Performed By: #### L 509.7001, L100.0100, L503.6005, L503.7505, L501.3620, L500.2500, L501.5200, L500.3400 #### [facility] [address] [place], [address] Glucose [Mass/Vol] 90 mg/dL Normal 70-99 [facility] Comment on above: Order Comment: REDRA W. PREVIOUS SPECIMEN REJECTED DUE TO RESULTS NOT COMING THROUGH AND SEEM TO BE ERRONEOUS. 01/22/25219 Mora Patel. NOTIFIED DELMY FOR REDRAW Performed By: #### L 509.7001, L100.0100, L503.6005, L503.7505, L501.3620, L500.2500, L501.5200, L500.3400 #### [facility] [address] [place], [address] Potassium [Moles/Vol] 4.3 mmol/L Normal 3.3-5.1 [facility] Comment on above: Order Comment: REDRA W. PREVIOUS SPECIMEN REJECTED DUE TO RESULTS NOT COMING THROUGH AND SEEM TO BE ERRONEOUS. 01/22/25219 Mora Patel. NOTIFIED DELMY FOR REDRAW Performed By: #### L 509.7001, L100.0100, L503.6005, L503.7505, L501.3620, L500.2500, L501.5200, L500.3400 #### [facility] [address] [place], [address] Sodium [Moles/Vol] 133 mmol/L Normal 133-145 [facility] Comment on above: Order Comment: REDRA W. PREVIOUS SPECIMEN REJECTED DUE TO RESULTS NOT COMING THROUGH AND SEEM TO BE ERRONEOUS. 01/22/25219 Mora Patel. NOTIFIED DELMY FOR REDRAW Performed By: #### L 509.7001, L100.0100, L503.6005, L503.7505, L501.3620, L500.2500, L501.5200, L500.3400 #### [facility] [address] [place], [address] T PROT 7.0 g/dL Normal 5.9-8.4 [facility] Comment on above: Order Comment: REDRA W. PREVIOUS SPECIMEN REJECTED DUE TO RESULTS NOT COMING THROUGH AND SEEM TO BE ERRONEOUS. 01/22/25219 Mora Patel. NOTIFIED DELMY FOR REDRAW Performed By: #### L 509.7001, L100.0100, L503.6005, L503.7505, L501.3620, L500.2500, L501.5200, L500.3400 #### [facility] [address] [place], [address] Urea nitrogen [Mass/Vol] 5 mg/dL Normal 4-19 [facility] Comment on above: Order Comment: REDRA W. PREVIOUS SPECIMEN REJECTED DUE TO RESULTS NOT COMING THROUGH AND SEEM TO BE ERRONEOUS. 01/22/25219 Mora Patel. NOTIFIED DELMY FOR REDRAW Performed By: #### L 509.7001, L100.0100, L503.6005, L503.7505, L501.3620, L500.2500, L501.5200, L500.3400 #### [facility] [address] [place], [address] Magnesiumon 03-03-2025 Magnesium [Mass/Vol] 2.0 mg/dL Normal 1.5-2.[address] [facility] Comment on above: Order Comment: REDRA W. PREVIOUS SPECIMEN REJECTED DUE TO RESULTS NOT COMING THROUGH AND SEEM TO BE ERRONEOUS. 01/22/25219 Mora Patel. NOTIFIED DELMY FOR REDRAW Performed By: #### L 509.7001, L100.0100, L503.6005, L503.7505, L501.3620, L500.2500, L501.5200, L500.3400 #### [facility] [address] [place], [address] Wound Cultureon 03-03-2025 WC NA [...] TMP SMX Islt TAMMY <=20 S Normal [facility] Comment on above: Performed By: #### L 509.7001, L100.0100, L503.6005, L503.7505, L501.3620, L500.2500, L501.5200, L500.3400 #### [facility] [address] [place], [place], [id number] Gram Stainon 02-27-2025 GS Negative Normal [facility] Comment on above: Performed By: #### L 509.7001, L100.0100, L503.6005, L503.7505, L501.3620, L500.2500, L501.5200, L500.3400 #### [facility] [address] [place], [address] GS NA Gram Stain 1+ Gram negative rods 1+ Gram positive cocci No Epithelial cells Normal [facility] Comment on above: Performed By: #### L 509.7001, L100.0100, L503.6005, L503.7505, L501.3620, L500.2500, L501.5200, L500.3400 #### [facility] [address] [place], [place], [address] CBC W/Diff, Automatedon - Absolute Lymph 0.89 X10 3/uL Normal 0.83-4.51 [facility] Comment on above: Order Comment: SHREYAS Sommer PREVIOUS SPECIMEN REJECTED DUE TO RESULTS NOT COMING THROUGH AND SEEM TO BE ERRONEOUS. 01/22/250 Mora Patel. NOTIFIED DELMY FOR REDRAW Performed By: #### L 509.7001, L100.0100, L503.6005, L503.7505, L501.3620, L500.2500, L501.5200, L500.3400 #### [facility] [address] [place], [address] Absolute Neut 4.4 X10 3/uL Normal 2.0-7.7 [facility] Comment on above: Order Comment: REDRA W. PREVIOUS SPECIMEN REJECTED DUE TO RESULTS NOT COMING THROUGH AND SEEM TO BE ERRONEOUS. 01/22/25219 Mora Patel. NOTIFIED DELMY FOR REDRAW Performed By: #### L 509.7001, L100.0100, L503.6005, L503.7505, L501.3620, L500.2500, L501.5200, L500.3400 #### [facility] [address] [place], [address] Basophils/100 WBC (Bld) 0.9 % Normal 0-1 W [facility] Comment on above: Order Comment: REDRA W. PREVIOUS SPECIMEN REJECTED DUE TO RESULTS NOT COMING THROUGH AND SEEM TO BE ERRONEOUS. 01/22/25219 Mora Patel. NOTIFIED DELMY FOR REDRAW Performed By: #### L 509.7001, L100.0100, L503.6005, L503.7505, L501.3620, L500.2500, L501.5200, L500.3400 #### [facility] [address] [place], [address] Eosinophils/100 WBC (Bld) 9.5 % High 0-5 [facility] Comment on above: Order Comment: REDRA W. PREVIOUS SPECIMEN REJECTED DUE TO RESULTS NOT COMING THROUGH AND SEEM TO BE ERRONEOUS. 01/22/25219 Mora Patel. NOTIFIED DELMY FOR REDRAW Performed By: #### L 509.7001, L100.0100, L503.6005, L503.7505, L501.3620, L500.2500, L501.5200, L500.3400 #### [facility] [address] [place], [address] Erythrocyte distribution width (RBC) [Ratio] 16.1 % High 11.6-14.6 [facility] Comment on above: Order Comment: REDRA W. PREVIOUS SPECIMEN REJECTED DUE TO RESULTS NOT COMING THROUGH AND SEEM TO BE ERRONEOUS. 01/22/25219 Mora Patel. NOTIFIED DELMY FOR REDRAW Performed By: #### L 509.7001, L100.0100, L503.6005, L503.7505, L501.3620, L500.2500, L501.5200, L500.3400 #### [facility] [address] [place], [place], [phone] Hematocrit (Bld) [Volume fraction] 28.4 % Low 40-54 [facility] Comment on above: Order Comment: REDRA W. PREVIOUS SPECIMEN REJECTED DUE TO RESULTS NOT COMING THROUGH AND SEEM TO BE ERRONEOUS. 01/22/25219 Mora Patel. NOTIFIED DELMY FOR REDRAW Performed By: #### L 509.7001, L100.0100, L503.6005, L503.7505, L501.3620, L500.2500, L501.5200, L500.3400 #### [facility] [address] [place], [place], [phone] ([phone] Hemoglobin (Bld) [Mass/Vol] 8.7 g/dL Low 13.0-16.5 [facility] Comment on above: Order Comment: REDRA W. PREVIOUS SPECIMEN REJECTED DUE TO RESULTS NOT COMING THROUGH AND SEEM TO BE ERRONEOUS. 01/22/25219 Mora Patel. NOTIFIED DELMY FOR REDRAW Performed By: #### L 509.7001, L100.0100, L503.6005, L503.7505, L501.3620, L500.2500, L501.5200, L500.3400 #### [facility] [address] [place], [address] IG% 0.600 Normal 0.0-0.9 [facility] Comment on above: Order Comment: REDRA W. PREVIOUS SPECIMEN REJECTED DUE TO RESULTS NOT COMING THROUGH AND SEEM TO BE ERRONEOUS. 01/22/25219 Mora Patel. NOTIFIED DELMY FOR REDRAW Result Comment: IG% - Immature Granulocytes (promyelocytes, myelocytes and metamyelocytes) > 1% indicates that a LEFT SHIFT is Present. Performed By: #### L 509.7001, L100.0100, L503.6005, L503.7505, L501.3620, L500.2500, L501.5200, L500.3400 #### [facility] [address] [place], [place], [address] Lymphocytes/100 WBC (Bld) 12.6 % Low 19-41 [facility] Comment on above: Order Comment: REDRA W. PREVIOUS SPECIMEN REJECTED DUE TO RESULTS NOT COMING THROUGH AND SEEM TO BE ERRONEOUS. 01/22/25219 Mora Patel. NOTIFIED DELMY FOR REDRAW Performed By: #### L 509.7001, L100.0100, L503.6005, L503.7505, L501.3620, L500.2500, L501.5200, L500.3400 #### [facility] [address] [place], [address] MCH (RBC) [Entitic mass] 29.0 pg Normal 27.0-32.0 [facility] Comment on above: Order Comment: REDRA W. PREVIOUS SPECIMEN REJECTED DUE TO RESULTS NOT COMING THROUGH AND SEEM TO BE ERRONEOUS. 01/22/25219 Mora Patel. NOTIFIED DELMY FOR REDRAW Performed By: #### L 509.7001, L100.0100, L503.6005, L503.7505, L501.3620, L500.2500, L501.5200, L500.3400 #### [facility] [address] [place], [address] MCHC (RBC) [Mass/Vol] 30.6 g/dL Low 32-36 [facility] Comment on above: Order Comment: REDRA W. PREVIOUS SPECIMEN REJECTED DUE TO RESULTS NOT COMING THROUGH AND SEEM TO BE ERRONEOUS. 01/22/25219 Mora Patel. NOTIFIED DELMY FOR REDRAW Performed By: #### L 509.7001, L100.0100, L503.6005, L503.7505, L501.3620, L500.2500, L501.5200, L500.3400 #### [facility] [address] [place], [address] MCV (RBC) [Entitic vol] 94.7 fL High 80-94 [facility] Comment on above: Order Comment: REDRA W. PREVIOUS SPECIMEN REJECTED DUE TO RESULTS NOT COMING THROUGH AND SEEM TO BE ERRONEOUS. 01/22/25219 Mora Patel. NOTIFIED DELMY FOR REDRAW Performed By: #### L 509.7001, L100.0100, L503.6005, L503.7505, L501.3620, L500.2500, L501.5200, L500.3400 #### [facility] [address] [place], [address] Monocytes/100 WBC (Bld) 14.6 % High 0-10 [facility] Comment on above: Order Comment: REDRA W. PREVIOUS SPECIMEN REJECTED DUE TO RESULTS NOT COMING THROUGH AND SEEM TO BE ERRONEOUS. 01/22/25219 Mora Patel. NOTIFIED DELMY FOR REDRAW Performed By: #### L 509.7001, L100.0100, L503.6005, L503.7505, L501.3620, L500.2500, L501.5200, L500.3400 #### [facility] [address] [place], [address] Neutrophils/100 WBC (Bld) 61.8 % Normal 47-70 [facility] Comment on above: Order Comment: REDRA W. PREVIOUS SPECIMEN REJECTED DUE TO RESULTS NOT COMING THROUGH AND SEEM TO BE ERRONEOUS. 01/22/25219 Mora Patel. NOTIFIED DELMY FOR REDRAW Performed By: #### L 509.7001, L100.0100, L503.6005, L503.7505, L501.3620, L500.2500, L501.5200, L500.3400 #### [facility] [address] [place], [address] Nucleated RBC (Bld) [#/Vol] 0 10*3/uL Normal 0-5 [facility] Comment on above: Order Comment: REDRA W. PREVIOUS SPECIMEN REJECTED DUE TO RESULTS NOT COMING THROUGH AND SEEM TO BE ERRONEOUS. 01/22/25219 Mora Patel. NOTIFIED DELMY FOR REDRAW Performed By: #### L 509.7001, L100.0100, L503.6005, L503.7505, L501.3620, L500.2500, L501.5200, L500.3400 #### [facility] [address] [place], [address] Platelet mean volume (Bld) [Entitic vol] 8.5 fL Normal 6.2-12.0 [facility] Comment on above: Order Comment: REDRA W. PREVIOUS SPECIMEN REJECTED DUE TO RESULTS NOT COMING THROUGH AND SEEM TO BE ERRONEOUS. 01/22/25219 Mora Patel. NOTIFIED DELMY FOR REDRAW Performed By: #### L 509.7001, L100.0100, L503.6005, L503.7505, L501.3620, L500.2500, L501.5200, L500.3400 #### [facility] [address] [place], [address] Platelets (Bld) [#/Vol] 335 10*3/uL Normal 150-450 [facility] Comment on above: Order Comment: REDRA W. PREVIOUS SPECIMEN REJECTED DUE TO RESULTS NOT COMING THROUGH AND SEEM TO BE ERRONEOUS. 01/22/25219 Mora Patel. NOTIFIED DELMY FOR REDRAW Performed By: #### L 509.7001, L100.0100, L503.6005, L503.7505, L501.3620, L500.2500, L501.5200, L500.3400 #### [facility] [address] [place], [address] RBC (Bld) [#/Vol] 3.00 10*6/uL Low 4.6-6.2 [facility] Comment on above: Order Comment: REDRA W. PREVIOUS SPECIMEN REJECTED DUE TO RESULTS NOT COMING THROUGH AND SEEM TO BE ERRONEOUS. 01/22/25219 Mora Patel. NOTIFIED DELMY FOR REDRAW Performed By: #### L 509.7001, L100.0100, L503.6005, L503.7505, L501.3620, L500.2500, L501.5200, L500.3400 #### [facility] [address] [place], [place], [phone] RDW SD 54.7 fl High 35.1-43.9 [facility] Comment on above: Order Comment: REDRA W. PREVIOUS SPECIMEN REJECTED DUE TO RESULTS NOT COMING THROUGH AND SEEM TO BE ERRONEOUS. 01/22/25219 Mora Patel. NOTIFIED DELMY FOR REDRAW Performed By: #### L 509.7001, L100.0100, L503.6005, L503.7505, L501.3620, L500.2500, L501.5200, L500.3400 #### [facility] [address] [place], [place], [phone] ([phone] WBC (Bld) [#/Vol] 7.1 10*3/uL Normal 4.4-11.0 [facility] Comment on above: Order Comment: REDRA W. PREVIOUS SPECIMEN REJECTED DUE TO RESULTS NOT COMING THROUGH AND SEEM TO BE ERRONEOUS. 01/22/25219 Mora Patel. NOTIFIED DELMY FOR REDRAW Performed By: #### L 509.7001, L100.0100, L503.6005, L503.7505, L501.3620, L500.2500, L501.5200, L500.3400 #### [facility] [address] [place], [place], [phone] CRPon 02-24-2025 C-REACTIVE PROT 46.10 mg/L High 0.0-3.0 [facility] Comment on above: Order Comment: REDRA W. PREVIOUS SPECIMEN REJECTED DUE TO RESULTS NOT COMING THROUGH AND SEEM TO BE ERRONEOUS. 01/22/25219 Mora Patel. NOTIFIED DELMY FOR REDRAW Performed By: #### L 509.7001, L100.0100, L503.6005, L503.7505, L501.3620, L500.2500, L501.5200, L500.3400 #### [facility] [address] [place], [place], [phone] Comprehensive Metabolic Prof ilon 02-24-2025 Albumin [Mass/Vol] 2.1 g/dL Low 3.4-4.8 [facility] Comment on above: Order Comment: REDRA W. PREVIOUS SPECIMEN REJECTED DUE TO RESULTS NOT COMING THROUGH AND SEEM TO BE ERRONEOUS. 01/22/25219 Mora Patel. NOTIFIED DELMY FOR REDRAW Performed By: #### L 509.7001, L100.0100, L503.6005, L503.7505, L501.3620, L500.2500, L501.5200, L500.3400 #### [facility] [address] [place], [place], [phone] Albumin/Globulin [Mass ratio] 0.5 {ratio} Low 0.9-2.4 [facility] Comment on above: Order Comment: REDRA W. PREVIOUS SPECIMEN REJECTED DUE TO RESULTS NOT COMING THROUGH AND SEEM TO BE ERRONEOUS. 01/22/25219 Mora Patel. NOTIFIED DELMY FOR REDRAW Performed By: #### L 509.7001, L100.0100, L503.6005, L503.7505, L501.3620, L500.2500, L501.5200, L500.3400 #### [facility] [address] [place], [address] ALK PHOS 77 U/L Normal 40-129 [facility] Comment on above: Order Comment: REDRA W. PREVIOUS SPECIMEN REJECTED DUE TO RESULTS NOT COMING THROUGH AND SEEM TO BE ERRONEOUS. 01/22/25219 Mora Patel. NOTIFIED DELMY FOR REDRAW Performed By: #### L 509.7001, L100.0100, L503.6005, L503.7505, L501.3620, L500.2500, L501.5200, L500.3400 #### [facility] [address] [place], [address] ALT [Catalytic activity/Vol] 6 U/L Normal <=46 [facility] Comment on above: Order Comment: REDRA W. PREVIOUS SPECIMEN REJECTED DUE TO RESULTS NOT COMING THROUGH AND SEEM TO BE ERRONEOUS. 01/22/25219 Mora Patel. NOTIFIED DELMY FOR REDRAW Performed By: #### L 509.7001, L100.0100, L503.6005, L503.7505, L501.3620, L500.2500, L501.5200, L500.3400 #### [facility] [address] [place], [address] AST [Catalytic activity/Vol] 20 U/L Normal <=37 [facility] Comment on above: Order Comment: REDRA W. PREVIOUS SPECIMEN REJECTED DUE TO RESULTS NOT COMING THROUGH AND SEEM TO BE ERRONEOUS. 01/22/25219 Mora Patel. NOTIFIED DELMY FOR REDRAW Performed By: #### L 509.7001, L100.0100, L503.6005, L503.7505, L501.3620, L500.2500, L501.5200, L500.3400 #### [facility] [address] [place], [address] Bilirubin [Mass/Vol] 0.34 mg/dL Normal 0.00-1.[address] [facility] Comment on above: Order Comment: REDRA W. PREVIOUS SPECIMEN REJECTED DUE TO RESULTS NOT COMING THROUGH AND SEEM TO BE ERRONEOUS. 01/22/25219 Mora Patel. NOTIFIED DELMY FOR REDRAW Performed By: #### L 509.7001, L100.0100, L503.6005, L503.7505, L501.3620, L500.2500, L501.5200, L500.3400 #### [facility] [address] [place], [address] BUN/CRE 11.3 RATIO Normal 10-20 [facility] Comment on above: Order Comment: REDRA W. PREVIOUS SPECIMEN REJECTED DUE TO RESULTS NOT COMING THROUGH AND SEEM TO BE ERRONEOUS. 01/22/25219 Mora Patel. NOTIFIED DELMY FOR REDRAW Performed By: #### L 509.7001, L100.0100, L503.6005, L503.7505, L501.3620, L500.2500, L501.5200, L500.3400 #### [facility] [address] [place], [address] Calcium [Mass/Vol] 8.0 mg/dL Normal 7.6-11.0 [facility] Comment on above: Order Comment: REDRA W. PREVIOUS SPECIMEN REJECTED DUE TO RESULTS NOT COMING THROUGH AND SEEM TO BE ERRONEOUS. 01/22/25219 Mora Patel. NOTIFIED DELMY FOR REDRAW Performed By: #### L 509.7001, L100.0100, L503.6005, L503.7505, L501.3620, L500.2500, L501.5200, L500.3400 #### [facility] [address] [place], [address] Chloride [Moles/Vol] 101 mmol/L Normal 98-[address] [facility] Comment on above: Order Comment: REDRA W. PREVIOUS SPECIMEN REJECTED DUE TO RESULTS NOT COMING THROUGH AND SEEM TO BE ERRONEOUS. 01/22/25219 Mora Patel. NOTIFIED DELMY FOR REDRAW Performed By: #### L 509.7001, L100.0100, L503.6005, L503.7505, L501.3620, L500.2500, L501.5200, L500.3400 #### [facility] [address] [place], [place], [phone] CO2 [Moles/Vol] 28.3 mmol/L Normal 21.0-32.0 [facility] Comment on above: Order Comment: REDRA W. PREVIOUS SPECIMEN REJECTED DUE TO RESULTS NOT COMING THROUGH AND SEEM TO BE ERRONEOUS. 01/22/25219 Mora Patel. NOTIFIED DELMY FOR REDRAW Performed By: #### L 509.7001, L100.0100, L503.6005, L503.7505, L501.3620, L500.2500, L501.5200, L500.3400 #### [facility] [address], [address] Creatinine [Mass/Vol] 0.49 mg/dL Low 0.70-1.20 [facility] Comment on above: Order Comment: REDRA W. PREVIOUS SPECIMEN REJECTED DUE TO RESULTS NOT COMING THROUGH AND SEEM TO BE ERRONEOUS. 01/22/25219 Mora Patel. NOTIFIED DELMY FOR REDRAW Performed By: #### L 509.7001, L100.0100, L503.6005, L503.7505, L501.3620, L500.2500, L501.5200, L500.3400 #### [facility] [address] [place], [place], [phone] GAP 7 Normal 5-15 [facility] Comment on above: Order Comment: REDRA W. PREVIOUS SPECIMEN REJECTED DUE TO RESULTS NOT COMING THROUGH AND SEEM TO BE ERRONEOUS. 01/22/25219 Mora Patel. NOTIFIED DELMY FOR REDRAW Performed By: #### L 509.7001, L100.0100, L503.6005, L503.7505, L501.3620, L500.2500, L501.5200, L500.3400 #### [facility] [address], [phone] GFR/1.73 sq M.predicted among non-blacks MDRD (S/P/Bld) [Vol rate/Area] 110 mL/min/{1.73_m2} Normal >60 [facility] Comment on above: Order Comment: REDRA W. PREVIOUS SPECIMEN REJECTED DUE TO RESULTS NOT COMING THROUGH AND SEEM TO BE ERRONEOUS. 01/22/25219 Mora Patel. NOTIFIED DELMY FOR REDRAW Result Comment: mL/m in/1.73m2 CKD-EPI Creatinine Equation (2020) Performed By: #### L 509.7001, L100.0100, L503.6005, L503.7505, L501.3620, L500.2500, L501.5200, L500.3400 #### [facility] [address] [facility] [place], [address] Globulin (S) [Mass/Vol] 4.5 g/dL High 2.2-4.2 [facility] Comment on above: Order Comment: REDRA W. PREVIOUS SPECIMEN REJECTED DUE TO RESULTS NOT COMING THROUGH AND SEEM TO BE ERRONEOUS. 01/22/25219 Mora Patel. NOTIFIED DELMY FOR REDRAW Performed By: #### L 509.7001, L100.0100, L503.6005, L503.7505, L501.3620, L500.2500, L501.5200, L500.3400 #### [facility] [address], [phone] Glucose [Mass/Vol] 88 mg/dL Normal 70-99 [facility] Comment on above: Order Comment: REDRA W. PREVIOUS SPECIMEN REJECTED DUE TO RESULTS NOT COMING THROUGH AND SEEM TO BE ERRONEOUS. 01/22/25219 Mora Patel. NOTIFIED DELMY FOR REDRAW Performed By: #### L 509.7001, L100.0100, L503.6005, L503.7505, L501.3620, L500.2500, L501.5200, L500.3400 #### [facility] [address] [place], [address] Potassium [Moles/Vol] 3.9 mmol/L Normal 3.3-5.1 [facility] Comment on above: Order Comment: REDRA W. PREVIOUS SPECIMEN REJECTED DUE TO RESULTS NOT COMING THROUGH AND SEEM TO BE ERRONEOUS. 01/22/25219 Mora Patel. NOTIFIED DELMY FOR REDRAW Performed By: #### L 509.7001, L100.0100, L503.6005, L503.7505, L501.3620, L500.2500, L501.5200, L500.3400 #### [facility] [address] [place], [address] Sodium [Moles/Vol] 136 mmol/L Normal 133-145 [facility] Comment on above: Order Comment: REDRA W. PREVIOUS SPECIMEN REJECTED DUE TO RESULTS NOT COMING THROUGH AND SEEM TO BE ERRONEOUS. 01/22/25219 Mora Patel. NOTIFIED DELMY FOR REDRAW Performed By: #### L 509.7001, L100.0100, L503.6005, L503.7505, L501.3620, L500.2500, L501.5200, L500.3400 #### [facility] [address] [place], [address] T PROT 6.5 g/dL Normal 5.9-8.4 [facility] Comment on above: Order Comment: REDRA W. PREVIOUS SPECIMEN REJECTED DUE TO RESULTS NOT COMING THROUGH AND SEEM TO BE ERRONEOUS. 01/22/25219 Mora Patel. NOTIFIED DELMY FOR REDRAW Performed By: #### L 509.7001, L100.0100, L503.6005, L503.7505, L501.3620, L500.2500, L501.5200, L500.3400 #### [facility] [address] [place], [address] Urea nitrogen [Mass/Vol] 6 mg/dL Normal 4-19 [facility] Comment on above: Order Comment: REDRA W. PREVIOUS SPECIMEN REJECTED DUE TO RESULTS NOT COMING THROUGH AND SEEM TO BE ERRONEOUS. 01/22/25219 Mora Patel. NOTIFIED DELMY FOR REDRAW Performed By: #### L 509.7001, L100.0100, L503.6005, L503.7505, L501.3620, L500.2500, L501.5200, L500.3400 #### [facility] [address] [place], [address] Magnesiumon 02-24-2025 Magnesium [Mass/Vol] 1.8 mg/dL Normal 1.5-2.[address] [facility] Comment on above: Order Comment: REDRA W. PREVIOUS SPECIMEN REJECTED DUE TO RESULTS NOT COMING THROUGH AND SEEM TO BE ERRONEOUS. 01/22/25219 Mora Patel. NOTIFIED DELMY FOR REDRAW Performed By: #### L 509.7001, L100.0100, L503.6005, L503.7505, L501.3620, L500.2500, L501.5200, L500.3400 #### [facility] [address] [place], [place], [phone] Basic Metabolic Profile (BMP )on 02-19-2025 BUN/CRE 11.0 RATIO Normal 03-02 [facility] Comment on above: Performed By: #### L 509.7001, L100.0100, L503.6005, L503.7505, L501.3620, L500.2500, L501.5200, L500.3400 #### [facility] [address] [place], [place], [phone] Calcium [Mass/Vol] 7.3 mg/dL Low 7.6-11.0 [facility] Comment on above: Performed By: #### L 509.7001, L100.0100, L503.6005, L503.7505, L501.3620, L500.2500, L501.5200, L500.3400 #### [facility] [address] [place], [address] Chloride [Moles/Vol] 104 mmol/L Normal 98-[address] [facility] Comment on above: Performed By: #### L 509.7001, L100.0100, L503.6005, L503.7505, L501.3620, L500.2500, L501.5200, L500.3400 #### [facility] [address] [place], [address] CO2 [Moles/Vol] 25.1 mmol/L Normal 21.0-32.0 [facility] Comment on above: Performed By: #### L 509.7001, L100.0100, L503.6005, L503.7505, L501.3620, L500.2500, L501.5200, L500.3400 #### [facility] [address] [place], [address] [phone] Creatinine [Mass/Vol] 0.54 mg/dL Low 0.70-1.20 [facility] Comment on above: Performed By: #### L 509.7001, L100.0100, L503.6005, L503.7505, L501.3620, L500.2500, L501.5200, L500.3400 #### [facility] [address] [place], [address] GAP 8 Normal 5-15 [facility] Comment on above: Performed By: #### L 509.7001, L100.0100, L503.6005, L503.7505, L501.3620, L500.2500, L501.5200, L500.3400 #### [facility] [address] [place], [address] GFR/1.73 sq M.predicted among non-blacks MDRD (S/P/Bld) [Vol rate/Area] 107 mL/min/{1.73_m2} Normal >60 [facility] Comment on above: Result Comment: mL/m in/1.73m2 CKD-EPI Creatinine Equation (2020) Performed By: #### L 509.7001, L100.0100, L503.6005, L503.7505, L501.3620, L500.2500, L501.5200, L500.3400 #### [facility] [address] [place], [address] Glucose [Mass/Vol] 90 mg/dL Normal 70-99 [facility] Comment on above: Performed By: #### L 509.7001, L100.0100, L503.6005, L503.7505, L501.3620, L500.2500, L501.5200, L500.3400 #### [facility] [address] [place], [address] Potassium [Moles/Vol] 3.9 mmol/L Normal 3.3-5.1 [facility] Comment on above: Result Comment: Hemo lysis present, Results??could be affected. ?? Performed By: #### L 509.7001, L100.0100, L503.6005, L503.7505, L501.3620, L500.2500, L501.5200, L500.3400 #### [facility] [address] [place], [address] Sodium [Moles/Vol] 136 mmol/L Normal 133-145 [facility] Comment on above: Performed By: #### L 509.7001, L100.0100, L503.6005, L503.7505, L501.3620, L500.2500, L501.5200, L500.3400 #### [facility] [address] [place], [address] Urea nitrogen [Mass/Vol] 6 mg/dL Normal 4-19 [facility] Comment on above: Performed By: #### L 509.7001, L100.0100, L503.6005, L503.7505, L501.3620, L500.2500, L501.5200, L500.3400 #### [facility] [address] [facility] [place] [place], [address] CBC W/Diff, Automatedon 10-0 9-2025 Absolute Lymph 0.82 X10 3/uL Low 0.83-4.51 [facility] Comment on above: Performed By: #### L 509.7001, L100.0100, L503.6005, L503.7505, L501.3620, L500.2500, L501.5200, L500.3400 #### [facility] [address] [facility] [place], [address] Absolute Neut 7.4 X10 3/uL Normal 2.0-7.7 [facility] Comment on above: Performed By: #### L 509.7001, L100.0100, L503.6005, L503.7505, L501.3620, L500.2500, L501.5200, L500.3400 #### [facility] [address] [facility] [place], [address] Basophils/100 WBC (Bld) 0.7 % Normal 0-1 [facility] Comment on above: Performed By: #### L 509.7001, L100.0100, L503.6005, L503.7505, L501.3620, L500.2500, L501.5200, L500.3400 #### [facility] [address] [place], [address] Eosinophils/100 WBC (Bld) 4.3 % Normal 0-5 [facility] Comment on above: Performed By: #### L 509.7001, L100.0100, L503.6005, L503.7505, L501.3620, L500.2500, L501.5200, L500.3400 #### [facility] [address] [facility] [place], [address] Erythrocyte distribution width (RBC) [Ratio] 16.0 % High 11.6-14.6 [facility] Comment on above: Performed By: #### L 509.7001, L100.0100, L503.6005, L503.7505, L501.3620, L500.2500, L501.5200, L500.3400 #### [facility] [address] [place], [address] Hematocrit (Bld) [Volume fraction] 26.1 % Low 40-54 [facility] Comment on above: Performed By: #### L 509.7001, L100.0100, L503.6005, L503.7505, L501.3620, L500.2500, L501.5200, L500.3400 #### [facility] [address] [facility] [place], [address] Hemoglobin (Bld) [Mass/Vol] 8.1 g/dL Low 13.0-16.5 [facility] Comment on above: Performed By: #### L 509.7001, L100.0100, L503.6005, L503.7505, L501.3620, L500.2500, L501.5200, L500.3400 #### [facility] [address] [place], [address] IG% 2.000 High 0.0-0.9 [facility] Comment on above: Result Comment: IG% - Immature Granulocytes (promyelocytes, myelocytes and metamyelocytes) > 1% indicates that a LEFT SHIFT is Present. Performed By: #### L 509.7001, L100.0100, L503.6005, L503.7505, L501.3620, L500.2500, L501.5200, L500.3400 #### [facility] [address] [facility] [place], [address] Lymphocytes/100 WBC (Bld) 8.3 % Low 19-41 [facility] Comment on above: Performed By: #### L 509.7001, L100.0100, L503.6005, L503.7505, L501.3620, L500.2500, L501.5200, L500.3400 #### [facility] [address] [place], [address] MCH (RBC) [Entitic mass] 29.0 pg Normal 27.0-32.0 [facility] Comment on above: Performed By: #### L 509.7001, L100.0100, L503.6005, L503.7505, L501.3620, L500.2500, L501.5200, L500.3400 #### [facility] [address] [place], [address] MCHC (RBC) [Mass/Vol] 31.0 g/dL Low 32-36 [facility] Comment on above: Performed By: #### L 509.7001, L100.0100, L503.6005, L503.7505, L501.3620, L500.2500, L501.5200, L500.3400 #### [facility] [address] [place], [address] MCV (RBC) [Entitic vol] 93.5 fL Normal 80-94 [facility] Comment on above: Performed By: #### L 509.7001, L100.0100, L503.6005, L503.7505, L501.3620, L500.2500, L501.5200, L500.3400 #### [facility] [address] [place], [address] Monocytes/100 WBC (Bld) 10.1 % High 0-10 [facility] Comment on above: Performed By: #### L 509.7001, L100.0100, L503.6005, L503.7505, L501.3620, L500.2500, L501.5200, L500.3400 #### [facility] [address] [place], [address] Neutrophils/100 WBC (Bld) 74.6 % High 47-70 [facility] Comment on above: Performed By: #### L 509.7001, L100.0100, L503.6005, L503.7505, L501.3620, L500.2500, L501.5200, L500.3400 #### [facility] [address] [place], [address] Nucleated RBC (Bld) [#/Vol] 0 10*3/uL Normal 0-5 [facility] Comment on above: Performed By: #### L 509.7001, L100.0100, L503.6005, L503.7505, L501.3620, L500.2500, L501.5200, L500.3400 #### [facility] [address] [place], [address] Platelet mean volume (Bld) [Entitic vol] 9.1 fL Normal 6.2-12.0 [facility] Comment on above: Performed By: #### L 509.7001, L100.0100, L503.6005, L503.7505, L501.3620, L500.2500, L501.5200, L500.3400 #### [facility] [address] [place], [address] Platelets (Bld) [#/Vol] 397 10*3/uL Normal 150-450 [facility] Comment on above: Performed By: #### L 509.7001, L100.0100, L503.6005, L503.7505, L501.3620, L500.2500, L501.5200, L500.3400 #### [facility] [address] [place], [address] RBC (Bld) [#/Vol] 2.79 10*6/uL Low 4.6-6.2 [facility] [facility] Comment on above: Performed By: #### L 509.7001, L100.0100, L503.6005, L503.7505, L501.3620, L500.2500, L501.5200, L500.3400 #### [facility] [address] [place], [address] RDW SD 54.6 fl High 35.1-43.9 [facility] Comment on above: Performed By: #### L 509.7001, L100.0100, L503.6005, L503.7505, L501.3620, L500.2500, L501.5200, L500.3400 #### [facility] [address] [place], [place], [id number] [phone] WBC (Bld) [#/Vol] 9.9 10*3/uL Normal 4.4-11.0 [facility] Comment on above: Performed By: #### L 509.7001, L100.0100, L503.6005, L503.7505, L501.3620, L500.2500, L501.5200, L500.3400 #### [facility] [address] [place], [place], [id number] [phone] Hemoglobin A1con 02-19-2025 HbA1c (Bld) [Mass fraction] 5.1 % Normal <=5.6 [facility] Comment on above: Result Comment: Norm al < 5.7 % Prediabetic 5.7 - 6.4 % Diabetic >or= 6.5 % Please note range changes. Performed By: #### L 509.7001, L100.0100, L503.6005, L503.7505, L501.3620, L500.2500, L501.5200, L500.3400 #### [facility] [address] [place], [place], [id number] [phone] Magnesiumon 02-19-2025 Magnesium [Mass/Vol] 1.8 mg/dL Normal 1.5-2.[address] [facility] Comment on above: Performed By: #### L 509.7001, L100.0100, L503.6005, L503.7505, L501.3620, L500.2500, L501.5200, L500.3400 #### [facility] [address] [facility] [place] [place], [address] Thyroid Stim Hormone (TSH)on 02-19-2025 TSH 1.380 uIU/mL Normal 0.300-4.200 [facility] Comment on above: Performed By: #### L 509.7001, L100.0100, L503.6005, L503.7505, L501.3620, L500.2500, L501.5200, L500.3400 #### [facility] [address] [place], [place], [id number] Vitamin B12on 02-19-2025 Cobalamin (Vitamin B12) [Mass/Vol] 1008 pg/mL High 180-914 [facility] Comment on above: Performed By: #### L 509.7001, L100.0100, L503.6005, L503.7505, L501.3620, L500.2500, L501.5200, L500.3400 #### [facility] [address] [place], [place], [address] Vitamin D,25 Hydroxyon 02-19 Vitamin D 25-OH < 6.0 Low 30-100 [facility] Comment on above: Result Comment: [place] min D Status Deficiency: <20 ng/mL (50nmol/L) Insufficiency: 20-30 ng/mL (50-75 nmol/L) Sufficiency: 30-100 ng/mL (75-250 nmol/L) Toxicity: >100 ng/mL (>250 nmol/L) Performed By: #### L 509.7001, L100.0100, L503.6005, L503.7505, L501.3620, L500.2500, L501.5200, L500.3400 #### [facility] [address] [place], [address] CONSULTon 02-18-2025 CONSULT [facility] Disch [place] 02-18-2025 Disch [facility] PHOSPHORUSon 02-18-2025 Phosphate [Mass/Vol] 2.4 mg/dL Normal 2.3-3.7 [facility] Comment on above: Performed By: #### 4 6299 ####[facility] [address] [place], [place] [address] Wojciech Oneal M.D. [id number] BASIC METABOLIC PANELon 10- Anion gap [Moles/Vol] 13 mmol/L Normal 10-20 [facility] Comment on above: Order Comment: [facility] has implemented the eGFR calculation approach that does not have a coefficient for race that conforms to the NKF-ASN Task Force Recommendations. Performed By: #### 4 6124 ####[facility] [address] [place], [place] [address] Wojciech Oneal M.D. [id number] Calcium [Mass/Vol] 7.5 mg/dL Low 8.4-10.2 [facility] Comment on above: Order Comment: [facility] has implemented the eGFR calculation approach that does not have a coefficient for race that conforms to the NKF-ASN Task Force Recommendations. Performed By: #### 4 6124 ####[facility] [address] [place], [place] [address] Wojciech Oneal M.D. [id number] Chloride [Moles/Vol] 104 mmol/L Normal 98-108 [facility] Comment on above: Order Comment: [facility] has implemented the eGFR calculation approach that does not have a coefficient for race that conforms to the NKF-ASN Task Force Recommendations. Performed By: #### 4 6124 ####[facility] [address], [place] [address] Wojciech Oneal M.D. [id number] Creatinine [Mass/Vol] 0.64 mg/dL Low 0.80-1.30 [facility] Comment on above: Order Comment: [facility] has implemented the eGFR calculation approach that does not have a coefficient for race that conforms to the NKF-ASN Task Force Recommendations. Performed By: #### 4 6124 ####[facility] [address] [place] [id number] Wojciech Oneal M.D. [id number] EGFR 101 mL/min/1.73 m2 Normal >=60 [facility] Comment on above: Order Comment: [facility] has implemented the eGFR calculation approach that does not have a coefficient for race that conforms to the NKF-ASN Task Force Recommendations. Result Comment: [place] mated GFR was calculated using the 2020 CKD-EPI creatinine equation. Performed By: #### 4 6124 ####[facility] [address] [place] [id number] Wojciech Oneal M.D. [id number] Glucose [Mass/Vol] 95 mg/dL Normal 65-99 [facility] Comment on above: Order Comment: [facility] has implemented the eGFR calculation approach that does not have a coefficient for race that conforms to the NKF-ASN Task Force Recommendations. Performed By: #### 4 6124 ####[facility] [address] [place] [id number] Wojciech Oneal M.D. [id number] HCO3 (Bld) [Moles/Vol] 25 mmol/L Normal 21-32 [facility] Comment on above: Order Comment: [facility] has implemented the eGFR calculation approach that does not have a coefficient for race that conforms to the NKF-ASN Task Force Recommendations. Performed By: #### 4 6124 ####[facility] [address] [place] [id number] Wojciech Oneal M.D. [id number] Potassium [Moles/Vol] 3.6 mmol/L Normal 3.5-5.1 [facility] Comment on above: Order Comment: [facility] has implemented the eGFR calculation approach that does not have a coefficient for race that conforms to the NKF-ASN Task Force Recommendations. Performed By: #### 4 6124 ####[facility] [address] [place] [id number] Wojciech Oneal M.D. [id number] Sodium [Moles/Vol] 138 mmol/L Normal 135-145 [facility] Comment on above: Order Comment: [facility] has implemented the eGFR calculation approach that does not have a coefficient for race that conforms to the NKF-ASN Task Force Recommendations. Performed By: #### 4 6124 ####[facility] [address] [place] [id number] Wojciech Oneal M.D. [id number] Urea nitrogen [Mass/Vol] 7 mg/dL Low 8-25 [facility] Comment on above: Order Comment: [facility] has implemented the eGFR calculation approach that does not have a coefficient for race that conforms to the NKF-ASN Task Force Recommendations. Performed By: #### 4 6124 ####[facility] [address] [place] [address] Wojciech Oneal M.D. [id number] Urea nitrogen/Creatinine [Mass ratio] 10.9 mg/mg Normal 10.0-20.0 [facility] Comment on above: Order Comment: [facility] has implemented the eGFR calculation approach that does not have a coefficient for race that conforms to the NKF-ASN Task Force Recommendations. Performed By: #### 4 6124 ####[facility] [address] [place] [id number] Wojciech Oneal M.D. [id number] CBCon 02-17-2025 AUTO NRBC 0.0 % Normal [facility] Comment on above: Performed By: #### 4 5218 ####[facility] [address] [place] [id number] Wojciech Oneal M.D. [id number] AUTO NRBC ABS COUNT 0.00 K/mcL Normal 0.00-0.00 [facility] Comment on above: Performed By: #### 4 5218 ####[facility] [address] [place] [id number] Wojciech Oneal M.D. [id number] Erythrocyte distribution width (RBC) [Ratio] 15.9 % High 11.6-14.8 [facility] Comment on above: Performed By: #### 4 5218 ####[facility] [address] [address] Wojciech Oneal M.D. [id number] Hematocrit (Bld) [Volume fraction] 25.4 % Low 41.0-53.0 [facility] Comment on above: Performed By: #### 4 5218 ####[facility] [address] [place] [address] Wojciech Oneal M.D. [id number] Hemoglobin (Bld) [Mass/Vol] 7.6 g/dL Low 13.5-17.5 [facility] Comment on above: Performed By: #### 4 5218 ####[facility] [address] [place] [address] Wojciech Oneal M.D. [id number] MCH (RBC) [Entitic mass] 28.8 pg Normal 26.0-34.0 [facility] Comment on above: Performed By: #### 4 5218 ####[facility] [address] [place] [address] Wojciech Oneal M.D. [id number] MCV (RBC) [Entitic vol] 96.2 fL Normal 80.0-100.0 [facility] Comment on above: Performed By: #### 4 5218 ####[facility] [address] [place] [address] Wojciech Oneal M.D. [id number] MEAN CORPUSCULAR HEMOGLOBIN CONC 29.9 g/dL Low 31.0-37.0 [facility] Comment on above: Performed By: #### 4 5218 ####[facility] [address] [address] Wojciech Oneal M.D. [id number] Platelet mean volume (Bld) [Entitic vol] 8.3 fL Low 9.4-12.4 [facility] Comment on above: Performed By: #### 4 5218 ####[facility] [address] [place] [address] Wojciech Oneal M.D. [id number] Platelets (Bld) [#/Vol] 409 10*3/uL High 150-400 [facility] Comment on above: Performed By: #### 4 5218 ####[facility] [address] [place] [address] Wojciech Oneal M.D. [id number] RBC (Bld) [#/Vol] 2.64 10*6/uL Low 4.50-5.90 [facility] Comment on above: Performed By: #### 4 5218 ####[facility] [address] [place] [id number] Wojciech Oneal M.D. [id number] WBC (Bld) [#/Vol] 8.89 10*3/uL Normal 4.50-11.00 [facility] Comment on above: Performed By: #### 4 5218 ####[facility] [address] [place] [id number] Wojciech Oneal M.D. [id number] MAGNESIUM LEVELon 02-17-2025 Magnesium [Mass/Vol] 1.7 mg/dL Normal 1.6-2.4 [facility] Comment on above: Performed By: #### 4 6109 ####[facility] [address] [place] [id number] Wojciech Oneal M.D. [id number] PHOSPHORUSon 02-17-2025 Phosphate [Mass/Vol] 2.5 mg/dL Normal 2.3-3.7 [facility] Comment on above: Performed By: #### 4 6299 ####[facility] [address] [place] [id number] Wojciech Oneal M.D. [id number] BASIC METABOLIC PANELon 10-0 Anion gap [Moles/Vol] 10 mmol/L Normal 10-20 [facility] Comment on above: Order Comment: [facility] has implemented the eGFR calculation approach that does not have a coefficient for race that conforms to the NKF-ASN Task Force Recommendations. Performed By: #### 4 6124 ####[facility] [address] [id number] Wojciech Oneal M.D. [id number] Calcium [Mass/Vol] 7.3 mg/dL Low 8.4-10.2 [facility] Comment on above: Order Comment: [facility] has implemented the eGFR calculation approach that does not have a coefficient for race that conforms to the NKF-ASN Task Force Recommendations. Performed By: #### 4 6124 ####[facility] [address], [place] [address] Wojciech Oneal M.D. [id number] Chloride [Moles/Vol] 106 mmol/L Normal 98-108 [facility] Comment on above: Order Comment: [facility] has implemented the eGFR calculation approach that does not have a coefficient for race that conforms to the NKF-ASN Task Force Recommendations. Performed By: #### 4 6124 ####[facility] [address] [place] [id number] Wojciech Oneal M.D. [id number] Creatinine [Mass/Vol] 0.62 mg/dL Low 0.80-1.30 [facility] Comment on above: Order Comment: [facility] has implemented the eGFR calculation approach that does not have a coefficient for race that conforms to the NKF-ASN Task Force Recommendations. Performed By: #### 4 6124 ####[facility] [address] [place] [id number] Wojciech Oneal M.D. [id number] EGFR 102 mL/min/1.73 m2 Normal >=60 [facility] Comment on above: Order Comment: [facility] has implemented the eGFR calculation approach that does not have a coefficient for race that conforms to the NKF-ASN Task Force Recommendations. Result Comment: [place] mated GFR was calculated using the 2020 CKD-EPI creatinine equation. Performed By: #### 4 6124 ####[facility] [address] [id number] Wojciech Oneal M.D. [id number] Glucose [Mass/Vol] 84 mg/dL Normal 65-99 [facility] Comment on above: Order Comment: [facility] has implemented the eGFR calculation approach that does not have a coefficient for race that conforms to the NKF-ASN Task Force Recommendations. Performed By: #### 4 6124 ####[facility] [address], [place] [address] Wojciech Oneal M.D. [id number] HCO3 (Bld) [Moles/Vol] 26 mmol/L Normal 21-32 [facility] Comment on above: Order Comment: [facility] has implemented the eGFR calculation approach that does not have a coefficient for race that conforms to the NKF-ASN Task Force Recommendations. Performed By: #### 4 6124 ####[facility] [address] [id number] Wojciech Oneal M.D. [id number] Potassium [Moles/Vol] 3.7 mmol/L Normal 3.5-5.1 [facility] Comment on above: Order Comment: [facility] has implemented the eGFR calculation approach that does not have a coefficient for race that conforms to the NKF-ASN Task Force Recommendations. Performed By: #### 4 6124 ####[facility] [address] [id number] Wojciech Oneal M.D. [id number] Sodium [Moles/Vol] 138 mmol/L Normal 135-145 [facility] Comment on above: Order Comment: [facility] has implemented the eGFR calculation approach that does not have a coefficient for race that conforms to the NKF-ASN Task Force Recommendations. Performed By: #### 4 6124 ####[facility] [address] [place] [address] Wojciech Oneal M.D. [id number] Urea nitrogen [Mass/Vol] 8 mg/dL Normal 8-25 [facility] Comment on above: Order Comment: [facility] has implemented the eGFR calculation approach that does not have a coefficient for race that conforms to the NKF-ASN Task Force Recommendations. Performed By: #### 4 6124 ####[facility] [address] [place] [id number] Wojciech Oneal M.D. [id number] Urea nitrogen/Creatinine [Mass ratio] 12.9 mg/mg Normal 10.0-20.0 [facility] Comment on above: Order Comment: [facility] has implemented the eGFR calculation approach that does not have a coefficient for race that conforms to the NKF-ASN Task Force Recommendations. Performed By: #### 4 6124 ####[facility] [address] [id number] Wojciech Oneal M.D. [id number] CBCon 02-16-2025 AUTO NRBC 0.0 % Normal [facility] Comment on above: Performed By: #### 4 5218 ####[facility] [address] [place] [address] Wojciech Oneal M.D. [id number] AUTO NRBC ABS COUNT 0.00 K/mcL Normal 0.00-0.00 [facility] Comment on above: Performed By: #### 4 5218 ####[facility] [address] [place] [address] Wojciech Oneal M.D. [id number] Erythrocyte distribution width (RBC) [Ratio] 15.7 % High 11.6-14.8 [facility] Comment on above: Performed By: #### 4 5218 ####[facility] [address] [place] [address] Wojciech Oneal M.D. [id number] Hematocrit (Bld) [Volume fraction] 26.9 % Low 41.0-53.0 [facility] Comment on above: Performed By: #### 4 5218 ####[facility] [address] [address] Wojciech Oneal M.D. [id number] Hemoglobin (Bld) [Mass/Vol] 7.9 g/dL Low 13.5-17.5 [facility] Comment on above: Performed By: #### 4 5218 ####[facility] [address] [address] Wojciech Oneal M.D. [id number] MCH (RBC) [Entitic mass] 28.4 pg Normal 26.0-34.0 [facility] Comment on above: Performed By: #### 4 5218 ####[facility] [address] [place] [address] Wojciech Oneal M.D. [id number] MCV (RBC) [Entitic vol] 96.8 fL Normal 80.0-100.0 [facility] Comment on above: Performed By: #### 4 5218 ####[facility] [address] [address] Wojciech Oneal M.D. [id number] MEAN CORPUSCULAR HEMOGLOBIN CONC 29.4 g/dL Low 31.0-37.0 [facility] Comment on above: Performed By: #### 4 5218 ####[facility] [address] [id number] Wojciech Oneal M.D. [id number] Platelet mean volume (Bld) [Entitic vol] 8.5 fL Low 9.4-12.4 [facility] Comment on above: Performed By: #### 4 5218 ####[facility] [address] [id number] Wojciech Oneal M.D. [id number] Platelets (Bld) [#/Vol] 446 10*3/uL High 150-400 [facility] Comment on above: Performed By: #### 4 5218 ####[facility] [address] [address] Wojciech Oneal M.D. [id number] RBC (Bld) [#/Vol] 2.78 10*6/uL Low 4.50-5.90 [facility] Comment on above: Performed By: #### 4 5218 ####[facility] [address] [id number] Wojciech Oneal M.D. [id number] WBC (Bld) [#/Vol] 8.23 10*3/uL Normal 4.50-11.00 [facility] Comment on above: Performed By: #### 4 5218 ####[facility] [address] [id number] Wojciech Oneal M.D. [id number] MAGNESIUM LEVELon 02-16-2025 Magnesium [Mass/Vol] 1.8 mg/dL Normal 1.6-2.4 [facility] Comment on above: Performed By: #### 4 6109 ####[facility] [address] [id number] Wojciech Oneal M.D. [id number] PHOSPHORUSon 02-16-2025 Phosphate [Mass/Vol] 2.7 mg/dL Normal 2.3-3.7 [facility] Comment on above: Performed By: #### 4 6299 ####[facility] [address] [address] Wojciech Oneal M.D. [id number] B12/FOLATEon 02-15-2025 Cobalamin (Vitamin B12) [Mass/Vol] 1085 pg/mL Normal 232-1245 [facility] Comment on above: Performed By: #### 4 6967 ####[facility] [address] [address] Wojciech Oneal M.D. [id number] FOLATE 4.5 ng/mL Normal 3.1-17.5 [facility] Comment on above: Result Comment: Defi cient <2.2Borderline 2.2 - 3.0Excessive >17.5 Performed By: #### 4 6967 ####[facility] [address], [place] [address] Wojciech Oneal M.D. [id number] BASIC METABOLIC PANELon Anion gap [Moles/Vol] 15 mmol/L Normal 10-20 [facility] Comment on above: Order Comment: [facility] has implemented the eGFR calculation approach that does not have a coefficient for race that conforms to the NKF-ASN Task Force Recommendations. Performed By: #### 4 6124 ####[facility] [address] [id number] Wojciehc Oneal M.D. [id number] Calcium [Mass/Vol] 6.8 mg/dL Low 8.4-10.2 [facility] Comment on above: Order Comment: [facility] has implemented the eGFR calculation approach that does not have a coefficient for race that conforms to the NKF-ASN Task Force Recommendations. Performed By: #### 4 6124 ####[facility] [address] [id number] Wojciech Oneal M.D. [id number] Chloride [Moles/Vol] 106 mmol/L Normal 98-108 [facility] Comment on above: Order Comment: [facility] has implemented the eGFR calculation approach that does not have a coefficient for race that conforms to the NKF-ASN Task Force Recommendations. Performed By: #### 4 6124 ####[facility] [address] [id number] Wojciech Oneal M.D. [id number] Creatinine [Mass/Vol] 0.70 mg/dL Low 0.80-1.30 [facility] Comment on above: Order Comment: [facility] has implemented the eGFR calculation approach that does not have a coefficient for race that conforms to the NKF-ASN Task Force Recommendations. Performed By: #### 4 6124 ####[facility] [address] [id number] Wojciech Oneal M.D. [id number] EGFR 99 mL/min/1.73 m2 Normal >=60 [facility] Comment on above: Order Comment: [facility] has implemented the eGFR calculation approach that does not have a coefficient for race that conforms to the NKF-ASN Task Force Recommendations. Result Comment: [place] mated GFR was calculated using the 2020 CKD-EPI creatinine equation. Performed By: #### 4 6124 ####[facility] [address] [address] Wojciech Oneal M.D. [id number] Glucose [Mass/Vol] 93 mg/dL Normal 65-99 [facility] Comment on above: Order Comment: [facility] has implemented the eGFR calculation approach that does not have a coefficient for race that conforms to the NKF-ASN Task Force Recommendations. Performed By: #### 4 6124 ####[facility] [address] [id number] Wojciech Oneal M.D. [id number] HCO3 (Bld) [Moles/Vol] 20 mmol/L Low 21-32 [facility] Comment on above: Order Comment: [facility] has implemented the eGFR calculation approach that does not have a coefficient for race that conforms to the NKF-ASN Task Force Recommendations. Performed By: #### 4 6124 ####[facility] [address] [id number] Wojciech Oneal M.D. [id number] Potassium [Moles/Vol] 4.1 mmol/L Normal 3.5-5.1 [facility] Comment on above: Order Comment: [facility] has implemented the eGFR calculation approach that does not have a coefficient for race that conforms to the NKF-ASN Task Force Recommendations. Result Comment: Slig htly Hemolyzed Performed By: #### 4 6124 ####[facility] [address] [id number] Wojciech Oneal M.D. [id number] Sodium [Moles/Vol] 137 mmol/L Normal 135-145 [facility] Comment on above: Order Comment: [facility] has implemented the eGFR calculation approach that does not have a coefficient for race that conforms to the NKF-ASN Task Force Recommendations. Performed By: #### 4 6124 ####[facility] [address] [id number] Wojciech Oneal M.D. [id number] Urea nitrogen [Mass/Vol] 9 mg/dL Normal 8-25 [facility] Comment on above: Order Comment: [facility] has implemented the eGFR calculation approach that does not have a coefficient for race that conforms to the NKF-ASN Task Force Recommendations. Performed By: #### 4 6124 ####[facility] [address] [id number] Wojciech Oneal M.D. [id number] Urea nitrogen/Creatinine [Mass ratio] 12.9 mg/mg Normal 10.0-20.0 [facility] Comment on above: Order Comment: [facility] has implemented the eGFR calculation approach that does not have a coefficient for race that conforms to the NKF-ASN Task Force Recommendations. Performed By: #### 4 6124 ####[facility] [address], [place] [address] Wojciech Oneal M.D. [id number] CBCon 02-15-2025 AUTO NRBC 0.0 % Normal [facility] Comment on above: Performed By: #### 4 5218 ####[facility] [address], [place] [address] Wojciech Oneal M.D. [id number] AUTO NRBC ABS COUNT 0.00 K/mcL Normal 0.00-0.00 [facility] Comment on above: Performed By: #### 4 5218 ####[facility] [address] [id number] Wojciech Oneal M.D. [id number] Erythrocyte distribution width (RBC) [Ratio] 15.7 % High 11.6-14.8 [facility] Comment on above: Performed By: #### 4 5218 ####[facility] [address] [address] Wojciech Oneal M.D. [id number] Hematocrit (Bld) [Volume fraction] 27.6 % Low 41.0-53.0 [facility] Comment on above: Performed By: #### 4 5218 ####[facility] [address] [address] Wojciech Oneal M.D. [id number] Hemoglobin (Bld) [Mass/Vol] 7.7 g/dL Low 13.5-17.5 [facility] Comment on above: Performed By: #### 4 5218 ####[facility] [address] [address] Wojciech Oneal M.D. [id number] MCH (RBC) [Entitic mass] 28.6 pg Normal 26.0-34.0 [facility] Comment on above: Performed By: #### 4 5218 ####[facility] [address] [address] Wojciech Oneal M.D. [id number] MCV (RBC) [Entitic vol] 102.6 fL High 80.0-100.0 [facility] Comment on above: Performed By: #### 4 5218 ####[facility] [address] [address] Wojciech Oneal M.D. [id number] MEAN CORPUSCULAR HEMOGLOBIN CONC 27.9 g/dL Low 31.0-37.0 [facility] Comment on above: Performed By: #### 4 5218 ####[facility] [address] [address] Wojciech Oneal M.D. [id number] Platelet mean volume (Bld) [Entitic vol] 8.9 fL Low 9.4-12.4 [facility] Comment on above: Performed By: #### 4 5218 ####[facility] [address] [address] Wojciech Oneal M.D. [id number] Platelets (Bld) [#/Vol] 381 10*3/uL Normal 150-400 [facility] Comment on above: Performed By: #### 4 5218 ####[facility] [address], [place] [address] Wojciech Oneal M.D. [id number] RBC (Bld) [#/Vol] 2.69 10*6/uL Low 4.50-5.90 [facility] Comment on above: Performed By: #### 4 5218 ####[facility] [address] [id number] Wojciech Oneal M.D. [id number] WBC (Bld) [#/Vol] 8.42 10*3/uL Normal 4.50-11.00 [facility] Comment on above: Performed By: #### 4 5218 ####[facility] [address] [id number] Wojciech Oneal M.D. [id number] MAGNESIUM LEVELon 02-15-2025 Magnesium [Mass/Vol] 1.8 mg/dL Normal 1.6-2.4 [facility] Comment on above: Performed By: #### 4 6109 ####[facility] [address], [place] [address] Wojciech Oneal M.D. [id number] PHOSPHORUSon 02-15-2025 Phosphate [Mass/Vol] 2.7 mg/dL Normal 2.3-3.7 [facility] Comment on above: Performed By: #### 4 6299 ####[facility] [address], [place] [address] Wojciech Oneal M.D. [id number] BASIC METABOLIC PANELon 10-0 Anion gap [Moles/Vol] 13 mmol/L Normal 10-20 [facility] Comment on above: Order Comment: [facility] has implemented the eGFR calculation approach that does not have a coefficient for race that conforms to the NKF-ASN Task Force Recommendations. Performed By: #### 4 6124 ####[facility] [address], [place] [address] Wojciech Oneal M.D. [id number] Calcium [Mass/Vol] 7.2 mg/dL Low 8.4-10.2 [facility] Comment on above: Order Comment: [facility] has implemented the eGFR calculation approach that does not have a coefficient for race that conforms to the NKF-ASN Task Force Recommendations. Performed By: #### 4 6124 ####[facility] [address] [id number] Wojciech Oneal M.D. [id number] Chloride [Moles/Vol] 108 mmol/L Normal 98-108 [facility] Comment on above: Order Comment: [facility] has implemented the eGFR calculation approach that does not have a coefficient for race that conforms to the NKF-ASN Task Force Recommendations. Performed By: #### 4 6124 ####[facility] [address] [id number] Wojciech Oneal M.D. [id number] Creatinine [Mass/Vol] 0.64 mg/dL Low 0.80-1.30 [facility] Comment on above: Order Comment: [facility] has implemented the eGFR calculation approach that does not have a coefficient for race that conforms to the NKF-ASN Task Force Recommendations. Performed By: #### 4 6124 ####[facility] [address] [id number] Wojciech Oneal M.D. [id number] EGFR 101 mL/min/1.73 m2 Normal >=60 [facility] Comment on above: Order Comment: [facility] has implemented the eGFR calculation approach that does not have a coefficient for race that conforms to the NKF-ASN Task Force Recommendations. Result Comment: [place] mated GFR was calculated using the 2020 CKD-EPI creatinine equation. Performed By: #### 4 6124 ####[facility] [address] [address] Wojciech Oneal M.D. [id number] Glucose [Mass/Vol] 93 mg/dL Normal 65-99 [facility] Comment on above: Order Comment: [facility] has implemented the eGFR calculation approach that does not have a coefficient for race that conforms to the NKF-ASN Task Force Recommendations. Performed By: #### 4 6124 ####[facility] [address] [id number] Wojciech Oneal M.D. [id number] HCO3 (Bld) [Moles/Vol] 25 mmol/L Normal 21-32 [facility] Comment on above: Order Comment: [facility] has implemented the eGFR calculation approach that does not have a coefficient for race that conforms to the NKF-ASN Task Force Recommendations. Performed By: #### 4 6124 ####[facility] [address] [address] Wojciech Oneal M.D. [id number] Potassium [Moles/Vol] 3.9 mmol/L Normal 3.5-5.1 [facility] Comment on above: Order Comment: [facility] has implemented the eGFR calculation approach that does not have a coefficient for race that conforms to the NKF-ASN Task Force Recommendations. Performed By: #### 4 6124 ####[facility] [address] [address] Wojciech Oneal M.D. [id number] Sodium [Moles/Vol] 142 mmol/L Normal 135-145 [facility] Comment on above: Order Comment: [facility] has implemented the eGFR calculation approach that does not have a coefficient for race that conforms to the NKF-ASN Task Force Recommendations. Performed By: #### 4 6124 ####[facility] [address] [address] Wojciech Oneal M.D. [id number] Urea nitrogen [Mass/Vol] 8 mg/dL Normal 8-25 [facility] Comment on above: Order Comment: [facility] has implemented the eGFR calculation approach that does not have a coefficient for race that conforms to the NKF-ASN Task Force Recommendations. Performed By: #### 4 6124 ####[facility] [address] [id number] Wojciech Oneal M.D. [id number] Urea nitrogen/Creatinine [Mass ratio] 12.5 mg/mg Normal 10.0-20.0 [facility] Comment on above: Order Comment: [facility] has implemented the eGFR calculation approach that does not have a coefficient for race that conforms to the NKF-ASN Task Force Recommendations. Performed By: #### 4 6124 ####[facility] [address] [address] Wojciech Oneal M.D. [id number] CBCon 02-14-2025 AUTO NRBC 0.0 % Normal [facility] Comment on above: Performed By: #### 4 5218 ####[facility] [address] [address] Wojciech Oneal M.D. [id number] AUTO NRBC ABS COUNT 0.00 K/mcL Normal 0.00-0.00 [facility] Comment on above: Performed By: #### 4 5218 ####[facility] [address] [address] Wojciech Oneal M.D. [id number] Erythrocyte distribution width (RBC) [Ratio] 15.5 % High 11.6-14.8 [facility] Comment on above: Performed By: #### 4 5218 ####[facility] [address] [address] Wojciech Oneal M.D. [id number] Hematocrit (Bld) [Volume fraction] 24.5 % Low 41.0-53.0 [facility] Comment on above: Performed By: #### 4 5218 ####[facility] [address] [address] Wojciech Oneal M.D. [id number] Hemoglobin (Bld) [Mass/Vol] 7.4 g/dL Low 13.5-17.5 [facility] Comment on above: Performed By: #### 4 5218 ####[facility] [address] [address] Wojciech Oneal M.D. [id number] MCH (RBC) [Entitic mass] 29.5 pg Normal 26.0-34.0 [facility] Comment on above: Performed By: #### 4 5218 ####[facility] [address] [address] Wojciech Oneal M.D. [id number] MCV (RBC) [Entitic vol] 97.6 fL Normal 80.0-100.0 [facility] Comment on above: Performed By: #### 4 5218 ####[facility] [address], [place] [address] Wojciech Oneal M.D. [id number] MEAN CORPUSCULAR HEMOGLOBIN CONC 30.2 g/dL Low 31.0-37.0 [facility] Comment on above: Performed By: #### 4 5218 ####[facility] [address], [place] [address] Wojciech Oneal M.D. [id number] Platelet mean volume (Bld) [Entitic vol] 8.8 fL Low 9.4-12.4 [facility] Comment on above: Performed By: #### 4 5218 ####[facility] [address] [id number] Wojciech Oneal M.D. [id number] Platelets (Bld) [#/Vol] 467 10*3/uL High 150-400 [facility] Comment on above: Performed By: #### 4 5218 ####[facility] [address] [id number] Wojciech Oneal M.D. [id number] RBC (Bld) [#/Vol] 2.51 10*6/uL Low 4.50-5.90 [facility] Comment on above: Performed By: #### 4 5218 ####[facility] [address] [id number] Wojciech Oneal M.D. [id number] WBC (Bld) [#/Vol] 8.51 10*3/uL Normal 4.50-11.00 [facility] Comment on above: Performed By: #### 4 5218 ####[facility] [address] [id number] Wojciech Oneal M.D. [id number] IRON STUDY WITH FERRITINon 1 Ferritin [Mass/Vol] 290 ng/mL Normal 30-400 [facility] Comment on above: Performed By: #### 4 7645 ####[facility] [address] [id number] Wojciech Oneal M.D. [id number] Iron [Mass/Vol] 15 ug/dL Low 40-165 [facility] Comment on above: Performed By: #### 4 7645 ####[facility] [address], [place] [address] Wojciech Oneal M.D. [id number] IRON SATURATION 17 % Low 20-50 [facility] Comment on above: Performed By: #### 4 7645 ####[facility] [address], [place] [address] Wojciech Oneal M.D. [id number] TIBC (CALCULATED) 87 mcg/dL Low 225-430 [facility] Comment on above: Performed By: #### 4 7645 ####[facility] [address] [id number] Wojciech Oneal M.D. [id number] MAGNESIUM LEVELon 02-14-2025 Magnesium [Mass/Vol] 1.8 mg/dL Normal 1.6-2.4 [facility] Comment on above: Performed By: #### 4 6109 ####[facility] [address] [id number] Wojciech Oneal M.D. [id number] PHOSPHORUSon 02-14-2025 Phosphate [Mass/Vol] 2.6 mg/dL Normal 2.3-3.7 [facility] Comment on above: Performed By: #### 4 6299 ####[facility] [address] [id number] Wojciech Oneal M.D. [id number] BASIC METABOLIC PANELon 10-0 Anion gap [Moles/Vol] 10 mmol/L Normal 10-20 [facility] Comment on above: Order Comment: [facility] has implemented the eGFR calculation approach that does not have a coefficient for race that conforms to the NKF-ASN Task Force Recommendations. Performed By: #### 4 6124 ####[facility] [address], [place] [address] Wojciech Oneal M.D. [id number] Calcium [Mass/Vol] 6.9 mg/dL Low 8.4-10.2 [facility] Comment on above: Order Comment: [facility] has implemented the eGFR calculation approach that does not have a coefficient for race that conforms to the NKF-ASN Task Force Recommendations. Performed By: #### 4 6124 ####[facility] [address] [id number] Wojciech Oneal M.D. [id number] Chloride [Moles/Vol] 108 mmol/L Normal 98-108 [facility] Comment on above: Order Comment: [facility] has implemented the eGFR calculation approach that does not have a coefficient for race that conforms to the NKF-ASN Task Force Recommendations. Performed By: #### 4 6124 ####[facility] [address] [address] Wojciech Oneal M.D. [id number] Creatinine [Mass/Vol] 0.72 mg/dL Low 0.80-1.30 [facility] Comment on above: Order Comment: [facility] has implemented the eGFR calculation approach that does not have a coefficient for race that conforms to the NKF-ASN Task Force Recommendations. Performed By: #### 4 6124 ####[facility] [address] [id number] Wojciech Oneal M.D. [id number] EGFR 98 mL/min/1.73 m2 Normal >=60 [facility] Comment on above: Order Comment: [facility] has implemented the eGFR calculation approach that does not have a coefficient for race that conforms to the NKF-ASN Task Force Recommendations. Result Comment: [place] mated GFR was calculated using the 2020 CKD-EPI creatinine equation. Performed By: #### 4 6124 ####[facility] [address] [id number] Wojciech Oneal M.D. [id number] Glucose [Mass/Vol] 98 mg/dL Normal 65-99 [facility] Comment on above: Order Comment: [facility] has implemented the eGFR calculation approach that does not have a coefficient for race that conforms to the NKF-ASN Task Force Recommendations. Performed By: #### 4 6124 ####[facility] [address] [id number] Wojciech Oneal M.D. [id number] HCO3 (Bld) [Moles/Vol] 26 mmol/L Normal 21-32 [facility] Comment on above: Order Comment: [facility] has implemented the eGFR calculation approach that does not have a coefficient for race that conforms to the NKF-ASN Task Force Recommendations. Performed By: #### 4 6124 ####[facility] [address] [id number] Wojciech Oneal M.D. [id number] Potassium [Moles/Vol] 3.4 mmol/L Low 3.5-5.1 [facility] Comment on above: Order Comment: [facility] has implemented the eGFR calculation approach that does not have a coefficient for race that conforms to the NKF-ASN Task Force Recommendations. Performed By: #### 4 6124 ####[facility] [address] [id number] Wojciech Oneal M.D. [id number] Sodium [Moles/Vol] 141 mmol/L Normal 135-145 [facility] Comment on above: Order Comment: [facility] has implemented the eGFR calculation approach that does not have a coefficient for race that conforms to the NKF-ASN Task Force Recommendations. Performed By: #### 4 6124 ####[facility] [address] [address] Wojciech Oneal M.D. [id number] Urea nitrogen [Mass/Vol] 7 mg/dL Low 8-25 [facility] Comment on above: Order Comment: [facility] has implemented the eGFR calculation approach that does not have a coefficient for race that conforms to the NKF-ASN Task Force Recommendations. Performed By: #### 4 6124 ####[facility] [address] [id number] Wojciech Oneal M.D. [id number] Urea nitrogen/Creatinine [Mass ratio] 9.7 mg/mg Low 10.0-20.0 [facility] Comment on above: Order Comment: [facility] has implemented the eGFR calculation approach that does not have a coefficient for race that conforms to the NKF-ASN Task Force Recommendations. Performed By: #### 4 6124 ####[facility] [address] [id number] Wojciech Oneal M.D. [id number] CBCon 02-13-2025 AUTO NRBC 0.0 % Normal [facility] Comment on above: Performed By: #### 4 5218 ####[facility] [address] [address] Wojciech Oneal M.D. [id number] AUTO NRBC ABS COUNT 0.00 K/mcL Normal 0.00-0.00 [facility] Comment on above: Performed By: #### 4 5218 ####[facility] [address] [address] Wojciech Oneal M.D. [id number] Erythrocyte distribution width (RBC) [Ratio] 15.6 % High 11.6-14.8 [facility] Comment on above: Performed By: #### 4 5218 ####[facility] [address] [address] Wojciech Oneal M.D. [id number] Hematocrit (Bld) [Volume fraction] 24.1 % Low 41.0-53.0 [facility] Comment on above: Performed By: #### 4 5218 ####[facility] [address] [address] Wojciech Oneal M.D. [id number] Hemoglobin (Bld) [Mass/Vol] 7.3 g/dL Low 13.5-17.5 [facility] Comment on above: Performed By: #### 4 5218 ####[facility] [address] [address] Wojciech Oneal M.D. [id number] MCH (RBC) [Entitic mass] 28.7 pg Normal 26.0-34.0 [facility] Comment on above: Performed By: #### 4 5218 ####[facility] [address] [address] Wojciech Oneal M.D. [id number] MCV (RBC) [Entitic vol] 94.9 fL Normal 80.0-100.0 [facility] Comment on above: Performed By: #### 4 5218 ####[facility] [address] [address] Wojciech Oneal M.D. [id number] MEAN CORPUSCULAR HEMOGLOBIN CONC 30.3 g/dL Low 31.0-37.0 [facility] Comment on above: Performed By: #### 4 5218 ####[facility] [address], [place] [address] Wojciech Oneal M.D. [id number] Platelet mean volume (Bld) [Entitic vol] 8.5 fL Low 9.4-12.4 [facility] Comment on above: Performed By: #### 4 5218 ####[facility] [address], [place] [address] Wojciech Oneal M.D. [id number] Platelets (Bld) [#/Vol] 493 10*3/uL High 150-400 [facility] Comment on above: Performed By: #### 4 5218 ####[facility] [address], [place] [address] Wojciech Oneal M.D. [id number] RBC (Bld) [#/Vol] 2.54 10*6/uL Low 4.50-5.90 [facility] Comment on above: Performed By: #### 4 5218 ####[facility] [address] [id number] Wojciech Oneal M.D. [id number] WBC (Bld) [#/Vol] 7.51 10*3/uL Normal 4.50-11.00 [facility] Comment on above: Performed By: #### 4 5218 ####[facility] [address] [id number] Wojciech Oneal M.D. [id number] MAGNESIUM LEVELon 02-13-2025 Magnesium [Mass/Vol] 1.8 mg/dL Normal 1.6-2.4 [facility] Comment on above: Performed By: #### 4 6109 ####[facility] [address], [place] [address] Wojciech Oneal M.D. [id number] PHOSPHORUSon 02-13-2025 Phosphate [Mass/Vol] 2.6 mg/dL Normal 2.3-3.7 [facility] Comment on above: Performed By: #### 4 6299 ####[facility] [address] [id number] Wojciech Oneal M.D. [id number] BASIC METABOLIC PANELon Anion gap [Moles/Vol] 11 mmol/L Normal 10-20 [facility] Comment on above: Order Comment: [facility] has implemented the eGFR calculation approach that does not have a coefficient for race that conforms to the NKF-ASN Task Force Recommendations. Performed By: #### 4 6124 ####[facility] [address] [id number] Wojciech Oneal M.D. [id number] Calcium [Mass/Vol] 7.2 mg/dL Low 8.4-10.2 [facility] Comment on above: Order Comment: [facility] has implemented the eGFR calculation approach that does not have a coefficient for race that conforms to the NKF-ASN Task Force Recommendations. Performed By: #### 4 6124 ####[facility] [address] [id number] Wojciech Oneal M.D. [id number] Chloride [Moles/Vol] 109 mmol/L High 98-108 [facility] Comment on above: Order Comment: [facility] has implemented the eGFR calculation approach that does not have a coefficient for race that conforms to the NKF-ASN Task Force Recommendations. Performed By: #### 4 6124 ####[facility] [address] [id number] Wojciech Oneal M.D. [id number] Creatinine [Mass/Vol] 0.71 mg/dL Low 0.80-1.30 [facility] Comment on above: Order Comment: [facility] has implemented the eGFR calculation approach that does not have a coefficient for race that conforms to the NKF-ASN Task Force Recommendations. Performed By: #### 4 6124 ####[facility] [address], [place] [address] Wojciech Oneal M.D. [id number] EGFR 98 mL/min/1.73 m2 Normal >=60 [facility] Comment on above: Order Comment: [facility] has implemented the eGFR calculation approach that does not have a coefficient for race that conforms to the NKF-ASN Task Force Recommendations. Result Comment: Chelsea mated GFR was calculated using the 2020 CKD-EPI creatinine equation. Performed By: #### 4 6103 ####[facility] [address], [place] [address] Wojciech Oneal M.D. [id number] Glucose [Mass/Vol] 91 mg/dL Normal 65-99 [facility] Comment on above: Order Comment: [facility] has implemented the eGFR calculation approach that does not have a coefficient for race that conforms to the NKF-ASN Task Force Recommendations. Performed By: #### 4 6124 ####[facility] [address] [id number] Wojciech Oneal M.D. [id number] HCO3 (Bld) [Moles/Vol] 25 mmol/L Normal 21-32 [facility] Comment on above: Order Comment: [facility] has implemented the eGFR calculation approach that does not have a coefficient for race that conforms to the NKF-ASN Task Force Recommendations. Performed By: #### 4 6124 ####[facility] [address] [id number] Wojciech Oneal M.D. [id number] Potassium [Moles/Vol] 3.8 mmol/L Normal 3.5-5.1 [facility] Comment on above: Order Comment: [facility] has implemented the eGFR calculation approach that does not have a coefficient for race that conforms to the NKF-ASN Task Force Recommendations. Performed By: #### 4 6124 ####[facility] [address] [id number] Wojciech Oneal M.D. [id number] Sodium [Moles/Vol] 141 mmol/L Normal 135-145 [facility] Comment on above: Order Comment: [facility] has implemented the eGFR calculation approach that does not have a coefficient for race that conforms to the NKF-ASN Task Force Recommendations. Performed By: #### 4 6124 ####[facility] [address] [id number] Wojciech Oneal M.D. [id number] Urea nitrogen [Mass/Vol] 8 mg/dL Normal 8-25 [facility] Comment on above: Order Comment: [facility] has implemented the eGFR calculation approach that does not have a coefficient for race that conforms to the NKF-ASN Task Force Recommendations. Performed By: #### 4 6124 ####[facility] [address] [id number] Wojciech Oneal M.D. [id number] Urea nitrogen/Creatinine [Mass ratio] 11.3 mg/mg Normal 10.0-20.0 [facility] Comment on above: Order Comment: [facility] has implemented the eGFR calculation approach that does not have a coefficient for race that conforms to the NKF-ASN Task Force Recommendations. Performed By: #### 4 6124 ####[facility] [address] [id number] Wojciech Oneal M.D. [id number] CBCon 02-12-2025 AUTO NRBC 0.0 % Normal [facility] Comment on above: Performed By: #### 4 5218 ####[facility] [address] [address] Wojciech Oneal M.D. [id number] AUTO NRBC ABS COUNT 0.00 K/mcL Normal 0.00-0.00 [facility] Comment on above: Performed By: #### 4 5218 ####[facility] [address] [id number] Wojciech Oneal M.D. [id number] Erythrocyte distribution width (RBC) [Ratio] 15.3 % High 11.6-14.8 [facility] Comment on above: Performed By: #### 4 5218 ####[facility] [address] [id number] Wojciech Oneal M.D. [id number] Hematocrit (Bld) [Volume fraction] 25.3 % Low 41.0-53.0 [facility] Comment on above: Performed By: #### 4 5218 ####[facility] [address] [id number] Wojciech Oneal M.D. [id number] Hemoglobin (Bld) [Mass/Vol] 7.6 g/dL Low 13.5-17.5 [facility] Comment on above: Performed By: #### 4 5218 ####[facility] [address] [address] Wojciech Oneal M.D. [id number] MCH (RBC) [Entitic mass] 29.2 pg Normal 26.0-34.0 [facility] Comment on above: Performed By: #### 4 5218 ####[facility] [address] [address] Wojciech Oneal M.D. [id number] MCV (RBC) [Entitic vol] 97.3 fL Normal 80.0-100.0 [facility] Comment on above: Performed By: #### 4 5218 ####[facility] [address] [address] Wojciech Oneal M.D. [id number] MEAN CORPUSCULAR HEMOGLOBIN CONC 30.0 g/dL Low 31.0-37.0 [facility] Comment on above: Performed By: #### 4 5218 ####[facility] [address] [address] Wojciech Oneal M.D. [id number] Platelet mean volume (Bld) [Entitic vol] 8.8 fL Low 9.4-12.4 [facility] Comment on above: Performed By: #### 4 5218 ####[facility] [address] [address] Wojciech Oneal M.D. [id number] Platelets (Bld) [#/Vol] 519 10*3/uL High 150-400 [facility] Comment on above: Performed By: #### 4 5218 ####[facility] [address] [id number] Wojciech Oneal M.D. [id number] RBC (Bld) [#/Vol] 2.60 10*6/uL Low 4.50-5.90 [facility] Comment on above: Performed By: #### 4 5218 ####[facility] [address] [id number] Wojciech Oneal M.D. [id number] WBC (Bld) [#/Vol] 9.04 10*3/uL Normal 4.50-11.00 [facility] Comment on above: Performed By: #### 4 5218 ####[facility] [address] [address] Wojciech Oneal M.D. [id number] MAGNESIUM LEVELon 02-12-2025 Magnesium [Mass/Vol] 1.8 mg/dL Normal 1.6-2.4 [facility] Comment on above: Performed By: #### 4 6109 ####[facility] [address] [id number] Wojciech Oneal M.D. [id number] OP NOTEon 02-12-[address] [facility] PHOSPHORUSon 02-12-2025 Phosphate [Mass/Vol] 2.3 mg/dL Normal 2.3-3.7 [facility] Comment on above: Performed By: #### 4 6299 ####[facility] [address] [id number] Wojciech Oneal M.D. [id number] URINE AEROBIC CULTUREon URINE AEROBIC CULTURE Abnormal [facility] Comment on above: Performed By: #### 4 4053 ####[facility] [address] [address] Tuan Ascencio M.D. [id number] BASIC METABOLIC PANELon Anion gap [Moles/Vol] 13 mmol/L Normal 10-20 [facility] Comment on above: Order Comment: [facility] has implemented the eGFR calculation approach that does not have a coefficient for race that conforms to the NKF-ASN Task Force Recommendations. Performed By: #### 4 6124 ####[facility] [address] [id number] Wojciech Oneal M.D. [id number] Calcium [Mass/Vol] 7.2 mg/dL Low 8.4-10.2 [facility] Comment on above: Order Comment: [facility] has implemented the eGFR calculation approach that does not have a coefficient for race that conforms to the NKF-ASN Task Force Recommendations. Performed By: #### 4 6124 ####[facility] [address] [id number] Wojciech Oneal M.D. [id number] Chloride [Moles/Vol] 110 mmol/L High 98-108 [facility] Comment on above: Order Comment: [facility] has implemented the eGFR calculation approach that does not have a coefficient for race that conforms to the NKF-ASN Task Force Recommendations. Performed By: #### 4 6124 ####[facility] [address], [place] [address] Wojciech Oneal M.D. [id number] Creatinine [Mass/Vol] 0.71 mg/dL Low 0.80-1.30 [facility] Comment on above: Order Comment: [facility] has implemented the eGFR calculation approach that does not have a coefficient for race that conforms to the NKF-ASN Task Force Recommendations. Performed By: #### 4 6124 ####[facility] [address] [id number] Wojciech Oneal M.D. [id number] EGFR 98 mL/min/1.73 m2 Normal >=60 [facility] Comment on above: Order Comment: [facility] has implemented the eGFR calculation approach that does not have a coefficient for race that conforms to the NKF-ASN Task Force Recommendations. Result Comment: [place] mated GFR was calculated using the 2020 CKD-EPI creatinine equation. Performed By: #### 4 6124 ####[facility] [address] [id number] Wojciech Oneal M.D. [id number] Glucose [Mass/Vol] 102 mg/dL High 65-99 [facility] Comment on above: Order Comment: [facility] has implemented the eGFR calculation approach that does not have a coefficient for race that conforms to the NKF-ASN Task Force Recommendations. Performed By: #### 4 6124 ####[facility] [address] [id number] Wojciech Oneal M.D. [id number] HCO3 (Bld) [Moles/Vol] 23 mmol/L Normal 21-32 [facility] Comment on above: Order Comment: [facility] has implemented the eGFR calculation approach that does not have a coefficient for race that conforms to the NKF-ASN Task Force Recommendations. Performed By: #### 4 6124 ####[facility] [address] [address] Wojciech Oneal M.D. [id number] Potassium [Moles/Vol] 3.9 mmol/L Normal 3.5-5.1 [facility] Comment on above: Order Comment: [facility] has implemented the eGFR calculation approach that does not have a coefficient for race that conforms to the NKF-ASN Task Force Recommendations. Result Comment: Slsebastián htly Hemolyzed Performed By: #### 4 6124 ####[facility] [address] [address] Wojciech Oneal M.D. [id number] Sodium [Moles/Vol] 142 mmol/L Normal 135-145 [facility] Comment on above: Order Comment: [facility] has implemented the eGFR calculation approach that does not have a coefficient for race that conforms to the NKF-ASN Task Force Recommendations. Performed By: #### 4 6124 ####[facility] [address] [address] Wojciech Oneal M.D. [id number] Urea nitrogen [Mass/Vol] 7 mg/dL Low 8-25 [facility] Comment on above: Order Comment: [facility] has implemented the eGFR calculation approach that does not have a coefficient for race that conforms to the NKF-ASN Task Force Recommendations. Performed By: #### 4 6124 ####[facility] [address] [id number] Wojciech Oneal M.D. [id number] Urea nitrogen/Creatinine [Mass ratio] 9.9 mg/mg Low 10.0-20.0 [facility] Comment on above: Order Comment: [facility] has implemented the eGFR calculation approach that does not have a coefficient for race that conforms to the NKF-ASN Task Force Recommendations. Performed By: #### 4 6124 ####[facility] [address], [place] [address] Wojciech Oneal M.D. [id number] CBCon 02-11-2025 AUTO NRBC 0.0 % Normal [facility] Comment on above: Performed By: #### 4 5218 ####[facility] [address] [id number] Wojciech Oneal M.D. [id number] AUTO NRBC ABS COUNT 0.00 K/mcL Normal 0.00-0.00 [facility] Comment on above: Performed By: #### 4 5218 ####[facility] [address] [address] Wojciech Oneal M.D. [id number] Erythrocyte distribution width (RBC) [Ratio] 15.3 % High 11.6-14.8 [facility] Comment on above: Performed By: #### 4 5218 ####[facility] [address] [address] Wojciech Oneal M.D. [id number] Hematocrit (Bld) [Volume fraction] 27.0 % Low 41.0-53.0 [facility] Comment on above: Performed By: #### 4 5218 ####[facility] [address] [address] Wojciech Oneal M.D. [id number] Hemoglobin (Bld) [Mass/Vol] 8.1 g/dL Low 13.5-17.5 [facility] Comment on above: Performed By: #### 4 5218 ####[facility] [address] [address] Wojciech Oneal M.D. [id number] MCH (RBC) [Entitic mass] 29.2 pg Normal 26.0-34.0 [facility] Comment on above: Performed By: #### 4 5218 ####[facility] [address] [address] Wojciech Oneal M.D. [id number] MCV (RBC) [Entitic vol] 97.5 fL Normal 80.0-100.0 [facility] Comment on above: Performed By: #### 4 5218 ####[facility] [address] [address] Wojciech Oneal M.D. [id number] MEAN CORPUSCULAR HEMOGLOBIN CONC 30.0 g/dL Low 31.0-37.0 [facility] Comment on above: Performed By: #### 4 5218 ####[facility] [address] [address] Wojciech Oneal M.D. [id number] Platelet mean volume (Bld) [Entitic vol] 8.9 fL Low 9.4-12.4 [facility] Comment on above: Performed By: #### 4 5218 ####[facility] [address] [id number] Wojciech Oneal M.D. [id number] Platelets (Bld) [#/Vol] 575 10*3/uL High 150-400 [facility] Comment on above: Performed By: #### 4 5218 ####[facility] [address] [address] Wojciech Oneal M.D. [id number] RBC (Bld) [#/Vol] 2.77 10*6/uL Low 4.50-5.90 [facility] Comment on above: Performed By: #### 4 5218 ####[facility] [address] [id number] Wojciech Oneal M.D. [id number] WBC (Bld) [#/Vol] 7.39 10*3/uL Normal 4.50-11.00 [facility] Comment on above: Performed By: #### 4 5218 ####[facility] [address] [id number] Wojciech Oneal M.D. [id number] MAGNESIUM LEVELon 02-11-2025 Magnesium [Mass/Vol] 1.9 mg/dL Normal 1.6-2.4 [facility] Comment on above: Performed By: #### 4 6109 ####[facility] [address] [id number] Wojciech Oneal M.D. [id number] PHOSPHORUSon 02-11-2025 Phosphate [Mass/Vol] 2.6 mg/dL Normal 2.3-3.7 [facility] Comment on above: Performed By: #### 4 6299 ####[facility] [address] [id number] Wojciech Oneal M.D. [id number] URINALYSISon 02-11-2025 BACTERIA, URINE Rare Abnormal None Seen [facility] Comment on above: Order Comment: Micro scopic examination is performed on all urinalysis samples and only positive findings are reported. The test for blood on the chemical analytic portion of urinalysis may also be positive due to hemoglobinuria and myoglobinuria and if red blood cells are present they are quantified by microscopic examination. Performed By: #### 4 6625 ####[facility] [address] [id number] Wojciech Oneal M.D. [id number] BILIRUBIN, URINE Negative Normal Negative [facility] Comment on above: Order Comment: Micro scopic examination is performed on all urinalysis samples and only positive findings are reported. The test for blood on the chemical analytic portion of urinalysis may also be positive due to hemoglobinuria and myoglobinuria and if red blood cells are present they are quantified by microscopic examination. Performed By: #### 4 6625 ####[facility] [address] [id number] Wojciech Oneal M.D. [id number] BLOOD, URINE Moderate Abnormal Negative [facility] Comment on above: Order Comment: Micro scopic examination is performed on all urinalysis samples and only positive findings are reported. The test for blood on the chemical analytic portion of urinalysis may also be positive due to hemoglobinuria and myoglobinuria and if red blood cells are present they are quantified by microscopic examination. Performed By: #### 4 6625 ####[facility] [address] [id number] Wojciech Oneal M.D. [id number] Clarity (U) Clear Normal Clear [facility] Comment on above: Order Comment: Micro scopic examination is performed on all urinalysis samples and only positive findings are reported. The test for blood on the chemical analytic portion of urinalysis may also be positive due to hemoglobinuria and myoglobinuria and if red blood cells are present they are quantified by microscopic examination. Performed By: #### 4 6625 ####[facility] [address] [id number] Wojciech Oneal M.D. [id number] Color (U) Yellow Normal Colorless, Yellow [facility] Comment on above: Order Comment: Micro scopic examination is performed on all urinalysis samples and only positive findings are reported. The test for blood on the chemical analytic portion of urinalysis may also be positive due to hemoglobinuria and myoglobinuria and if red blood cells are present they are quantified by microscopic examination. Performed By: #### 4 6625 ####[facility] [address] [id number] Wojciech Oneal M.D. [id number] Glucose Ql (U) Negative Normal Negative [facility] Comment on above: Order Comment: Micro scopic examination is performed on all urinalysis samples and only positive findings are reported. The test for blood on the chemical analytic portion of urinalysis may also be positive due to hemoglobinuria and myoglobinuria and if red blood cells are present they are quantified by microscopic examination. Performed By: #### 4 6625 ####[facility] [address] [id number] Wojciech Oneal M.D. [id number] Ketones Ql (U) Negative Normal Negative [facility] Comment on above: Order Comment: Micro scopic examination is performed on all urinalysis samples and only positive findings are reported. The test for blood on the chemical analytic portion of urinalysis may also be positive due to hemoglobinuria and myoglobinuria and if red blood cells are present they are quantified by microscopic examination. Performed By: #### 4 6625 ####[facility] [address], [place] [address] Wojciech Oneal M.D. [id number] Leukocyte esterase Test strip Ql (U) Negative Normal Negative [facility] Comment on above: Order Comment: Micro scopic examination is performed on all urinalysis samples and only positive findings are reported. The test for blood on the chemical analytic portion of urinalysis may also be positive due to hemoglobinuria and myoglobinuria and if red blood cells are present they are quantified by microscopic examination. Performed By: #### 4 6625 ####[facility] [address], [place] [address] Wojciech Oneal M.D. [id number] MUCUS, URINE Rare Normal None Seen, [facility] Comment on above: Order Comment: Micro scopic examination is performed on all urinalysis samples and only positive findings are reported. The test for blood on the chemical analytic portion of urinalysis may also be positive due to hemoglobinuria and myoglobinuria and if red blood cells are present they are quantified by microscopic examination. Performed By: #### 4 6625 ####[facility] [address] [id number] Wojciech Oneal M.D. [id number] NITRITE, URINE Positive Abnormal Negative [facility] Comment on above: Order Comment: Micro scopic examination is performed on all urinalysis samples and only positive findings are reported. The test for blood on the chemical analytic portion of urinalysis may also be positive due to hemoglobinuria and myoglobinuria and if red blood cells are present they are quantified by microscopic examination. Performed By: #### 4 6625 ####[facility] [address] [id number] Wojciech Oneal M.D. [id number] pH (U) 5.5 [pH] Normal 5.0-7.0 [facility] Comment on above: Order Comment: Micro scopic examination is performed on all urinalysis samples and only positive findings are reported. The test for blood on the chemical analytic portion of urinalysis may also be positive due to hemoglobinuria and myoglobinuria and if red blood cells are present they are quantified by microscopic examination. Performed By: #### 4 6625 ####[facility] [address] [id number] Wojciech Oneal M.D. [id number] Protein (U) [Mass/Vol] 30 mg/dL Abnormal Negative [facility] Comment on above: Order Comment: [...] ammonium compounds. Performed By: #### 4 6625 ####[facility] [address] [id number] Wojciech Oneal M.D. [id number] RBC LM.HPF (Urine sed) [#/Area] 11 /[HPF] High 0-3 [facility] Comment on above: Order Comment: Micro scopic examination is performed on all urinalysis samples and only positive findings are reported. The test for blood on the chemical analytic portion of urinalysis may also be positive due to hemoglobinuria and myoglobinuria and if red blood cells are present they are quantified by microscopic examination. Performed By: #### 4 6625 ####[facility] [address] [id number] Wojciech Oneal M.D. [id number] Specific gravity (U) [Rel density] 1.022 Normal 1.005-1.025 [facility] Comment on above: Order Comment: Micro scopic examination is performed on all urinalysis samples and only positive findings are reported. The test for blood on the chemical analytic portion of urinalysis may also be positive due to hemoglobinuria and myoglobinuria and if red blood cells are present they are quantified by microscopic examination. Performed By: #### 4 6625 ####[facility] [address] [id number] Wojciech Oneal M.D. [id number] SQUAMOUS EPITHELIAL 1 /hpf Normal 0-4 [facility] Comment on above: Order Comment: Micro scopic examination is performed on all urinalysis samples and only positive findings are reported. The test for blood on the chemical analytic portion of urinalysis may also be positive due to hemoglobinuria and myoglobinuria and if red blood cells are present they are quantified by microscopic examination. Performed By: #### 4 6625 ####[facility] [address] [id number] Wojciech Oneal M.D. [id number] UROBILINOGEN, URINE <2.0 Normal <2.0 [facility] Comment on above: Order Comment: Micro scopic examination is performed on all urinalysis samples and only positive findings are reported. The test for blood on the chemical analytic portion of urinalysis may also be positive due to hemoglobinuria and myoglobinuria and if red blood cells are present they are quantified by microscopic examination. Performed By: #### 4 6625 ####[facility] [address], [place] [address] Wojciech Oneal M.D. [id number] WBC LM.HPF (Urine sed) [#/Area] 6 /[HPF] High 0-5 [facility] Comment on above: Order Comment: Micro scopic examination is performed on all urinalysis samples and only positive findings are reported. The test for blood on the chemical analytic portion of urinalysis may also be positive due to hemoglobinuria and myoglobinuria and if red blood cells are present they are quantified by microscopic examination. Performed By: #### 4 6625 ####[facility] [address] [id number] Wojciech Oneal M.D. [id number] BASIC METABOLIC PANELon 09-3 -2024 Anion gap [Moles/Vol] 14 mmol/L Normal 10-20 [facility] Comment on above: Order Comment: [facility] has implemented the eGFR calculation approach that does not have a coefficient for race that conforms to the NKF-ASN Task Force Recommendations. Performed By: #### 4 6124 ####[facility] [address] [address] Wojciech Oneal M.D. [id number] Calcium [Mass/Vol] 7.1 mg/dL Low 8.4-10.2 [facility] Comment on above: Order Comment: [facility] has implemented the eGFR calculation approach that does not have a coefficient for race that conforms to the NKF-ASN Task Force Recommendations. Performed By: #### 4 6124 ####[facility] [address] [id number] Wojciech Oneal M.D. [id number] Chloride [Moles/Vol] 111 mmol/L High 98-108 [facility] Comment on above: Order Comment: [facility] has implemented the eGFR calculation approach that does not have a coefficient for race that conforms to the NKF-ASN Task Force Recommendations. Performed By: #### 4 6124 ####[facility] [address] [address] Wojciech Oneal M.D. [id number] Creatinine [Mass/Vol] 0.76 mg/dL Low 0.80-1.30 [facility] Comment on above: Order Comment: [facility] has implemented the eGFR calculation approach that does not have a coefficient for race that conforms to the NKF-ASN Task Force Recommendations. Performed By: #### 4 6124 ####[facility] [address] [address] Wojciech Oneal M.D. [id number] EGFR 96 mL/min/1.73 m2 Normal >=60 [facility] Comment on above: Order Comment: [facility] has implemented the eGFR calculation approach that does not have a coefficient for race that conforms to the NKF-ASN Task Force Recommendations. Result Comment: [place] mated GFR was calculated using the 2020 CKD-EPI creatinine equation. Performed By: #### 4 6124 ####[facility] [address] [address] Wojciech Oneal M.D. [id number] Glucose [Mass/Vol] 92 mg/dL Normal 65-99 [facility] Comment on above: Order Comment: [facility] has implemented the eGFR calculation approach that does not have a coefficient for race that conforms to the NKF-ASN Task Force Recommendations. Performed By: #### 4 6124 ####[facility] [address] [id number] Wojciech Oneal M.D. [id number] HCO3 (Bld) [Moles/Vol] 23 mmol/L Normal 21-32 [facility] Comment on above: Order Comment: [facility] has implemented the eGFR calculation approach that does not have a coefficient for race that conforms to the NKF-ASN Task Force Recommendations. Performed By: #### 4 6124 ####[facility] [address] [id number] Wojciech Oneal M.D. [id number] Potassium [Moles/Vol] 3.5 mmol/L Normal 3.5-5.1 [facility] Comment on above: Order Comment: [facility] has implemented the eGFR calculation approach that does not have a coefficient for race that conforms to the NKF-ASN Task Force Recommendations. Performed By: #### 4 6124 ####[facility] [address] [id number] Wojciech Oneal M.D. [id number] Sodium [Moles/Vol] 144 mmol/L Normal 135-145 [facility] Comment on above: Order Comment: [facility] has implemented the eGFR calculation approach that does not have a coefficient for race that conforms to the NKF-ASN Task Force Recommendations. Performed By: #### 4 6124 ####[facility] [address] [id number] Wojciech Oneal M.D. [id number] Urea nitrogen [Mass/Vol] 7 mg/dL Low 8-25 [facility] Comment on above: Order Comment: [facility] has implemented the eGFR calculation approach that does not have a coefficient for race that conforms to the NKF-ASN Task Force Recommendations. Performed By: #### 4 6124 ####[facility] [address] [id number] Wojciech Oneal M.D. [id number] Urea nitrogen/Creatinine [Mass ratio] 9.2 mg/mg Low 10.0-20.0 [facility] Comment on above: Order Comment: [facility] has implemented the eGFR calculation approach that does not have a coefficient for race that conforms to the NKF-ASN Task Force Recommendations. Performed By: #### 4 6124 ####[facility] [address] [id number] Wojciech Oneal M.D. [id number] CBCon 02-10-2025 AUTO NRBC 0.0 % Normal [facility] Comment on above: Performed By: #### 4 [id number] ####[facility] [address] [id number] Wojciech Oneal M.D. [id number] AUTO NRBC ABS COUNT 0.00 K/mcL Normal 0.00-0.00 [facility] Comment on above: Performed By: #### 4 [id number] ####[facility] [address] [id number] Wojciech Oneal M.D. [id number] Erythrocyte distribution width (RBC) [Ratio] 15.2 % High 11.6-14.8 [facility] Comment on above: Performed By: #### 4 [id number] ####[facility] [address] [id number] Wojciech Oneal M.D. [id number] Hematocrit (Bld) [Volume fraction] 24.7 % Low 41.0-53.0 [facility] Comment on above: Performed By: #### 4 [id number] ####[facility] [address] [id number] Wojciech Oneal M.D. [id number] Hemoglobin (Bld) [Mass/Vol] 7.4 g/dL Low 13.5-17.5 [facility] Comment on above: Performed By: #### 4 [id number] ####[facility] [address] [address] Wojciech Oneal M.D. [id number] MCH (RBC) [Entitic mass] 29.0 pg Normal 26.0-34.0 [facility] Comment on above: Performed By: #### 4 [id number] ####[facility] [address] [address] Wojciech Oneal M.D. [id number] MCV (RBC) [Entitic vol] 96.9 fL Normal 80.0-100.0 [facility] Comment on above: Performed By: #### 4 [id number] ####[facility] [address] [address] Wojciech Oneal M.D. [id number] MEAN CORPUSCULAR HEMOGLOBIN CONC 30.0 g/dL Low 31.0-37.0 [facility] Comment on above: Performed By: #### 4 [id number] ####[facility] [address] [address] Wojciech Oneal M.D. [id number] Platelet mean volume (Bld) [Entitic vol] 8.7 fL Low 9.4-12.4 [facility] Comment on above: Performed By: #### 4 [id number] ####[facility] [address] [address] Wojciech Oneal M.D. [id number] Platelets (Bld) [#/Vol] 508 10*3/uL High 150-400 [facility] Comment on above: Performed By: #### 4 [id number] ####[facility] [address] [address] Wojciech Oneal M.D. [id number] RBC (Bld) [#/Vol] 2.55 10*6/uL Low 4.50-5.90 [facility] Comment on above: Performed By: #### 4 [id number] ####[facility] [address] [address] Wojciech Oneal M.D. [id number] WBC (Bld) [#/Vol] 7.24 10*3/uL Normal 4.50-11.00 [facility] Comment on above: Performed By: #### 4 [id number] ####[facility] [address] [id number] Wojciech Oneal M.D. [id number] MAGNESIUM LEVELon 02-10-2025 Magnesium [Mass/Vol] 1.9 mg/dL Normal 1.6-2.4 [facility] Comment on above: Performed By: #### 4 6109 ####[facility] [address] [address] Wojciech Oneal M.D. [id number] PHOSPHORUSon 02-10-2025 Phosphate [Mass/Vol] 2.6 mg/dL Normal 2.3-3.7 [facility] Comment on above: Performed By: #### 4 6299 ####[facility] [address] [address] Wojciech Oneal M.D. [id number] POTASSIUM LEVELon 02-10-2025 Potassium [Moles/Vol] 3.8 mmol/L Normal 3.5-5.1 [facility] Comment on above: Performed By: #### 4 6351 ####[facility] [address] [address] Wojciech Oneal M.D. [id number] TSH WITH REFLEX FREE T4on TSH Qn 2.27 m[IU]/L Normal 0.27-4.20 [facility] Comment on above: Performed By: #### 4 6612 ####[facility] [address] [id number] Wojciech Oneal M.D. [id number] TYPE AND SCREENon 02-10-2025 TYPE AND SCREEN ABORH: O Positive AB SCREEN: Negative EXPIRATION DATE: 02/13/2025 23:[address] [facility] Comment on above: Performed By: #### 4 6619 ####[facility] [address] [address] Radha Kelsey MD [id number] [facility] BASIC METABOLIC PANELon 01-13 Anion gap [Moles/Vol] 14 mmol/L Normal 10-20 [facility] Comment on above: Order Comment: [facility] has implemented the eGFR calculation approach that does not have a coefficient for race that conforms to the NKF-ASN Task Force Recommendations. Performed By: #### 4 6124 ####[facility] [address] [address] Wojciech Oneal M.D. [id number] Calcium [Mass/Vol] 7.2 mg/dL Low 8.4-10.2 [facility] Comment on above: Order Comment: [facility] has implemented the eGFR calculation approach that does not have a coefficient for race that conforms to the NKF-ASN Task Force Recommendations. Performed By: #### 4 6124 ####[facility] [address] [id number] Wojciech Oneal M.D. [id number] Chloride [Moles/Vol] 112 mmol/L High 98-108 [facility] Comment on above: Order Comment: [facility] has implemented the eGFR calculation approach that does not have a coefficient for race that conforms to the NKF-ASN Task Force Recommendations. Performed By: #### 4 6124 ####[facility] [address] [id number] Wojciech Oneal M.D. [id number] Creatinine [Mass/Vol] 0.79 mg/dL Low 0.80-1.30 [facility] Comment on above: Order Comment: [facility] has implemented the eGFR calculation approach that does not have a coefficient for race that conforms to the NKF-ASN Task Force Recommendations. Performed By: #### 4 6124 ####[facility] [address] [id number] Wojciech Oneal M.D. [id number] EGFR 95 mL/min/1.73 m2 Normal >=60 [facility] Comment on above: Order Comment: [facility] has implemented the eGFR calculation approach that does not have a coefficient for race that conforms to the NKF-ASN Task Force Recommendations. Result Comment: [place] mated GFR was calculated using the 2020 CKD-EPI creatinine equation. Performed By: #### 4 6124 ####[facility] [address] [id number] Wojciech Oneal M.D. [id number] Glucose [Mass/Vol] 98 mg/dL Normal 65-99 [facility] Comment on above: Order Comment: [facility] has implemented the eGFR calculation approach that does not have a coefficient for race that conforms to the NKF-ASN Task Force Recommendations. Performed By: #### 4 6124 ####[facility] [address] [address] Wojciech Oneal M.D. [id number] HCO3 (Bld) [Moles/Vol] 21 mmol/L Normal 21-32 [facility] Comment on above: Order Comment: [facility] has implemented the eGFR calculation approach that does not have a coefficient for race that conforms to the NKF-ASN Task Force Recommendations. Performed By: #### 4 6124 ####[facility] [address] [id number] Wojciech Oneal M.D. [id number] Potassium [Moles/Vol] 3.5 mmol/L Normal 3.5-5.1 [facility] Comment on above: Order Comment: [facility] has implemented the eGFR calculation approach that does not have a coefficient for race that conforms to the NKF-ASN Task Force Recommendations. Performed By: #### 4 6124 ####[facility] [address] [id number] Wojciech Oneal M.D. [id number] Sodium [Moles/Vol] 143 mmol/L Normal 135-145 [facility] Comment on above: Order Comment: [facility] has implemented the eGFR calculation approach that does not have a coefficient for race that conforms to the NKF-ASN Task Force Recommendations. Performed By: #### 4 6124 ####[facility] [address], [place] [address] Wojciech Oneal M.D. [id number] Urea nitrogen [Mass/Vol] 8 mg/dL Normal 8-25 [facility] Comment on above: Order Comment: [facility] has implemented the eGFR calculation approach that does not have a coefficient for race that conforms to the NKF-ASN Task Force Recommendations. Performed By: #### 4 6124 ####[facility] [address] [address] Wojciech Oneal M.D. [id number] Urea nitrogen/Creatinine [Mass ratio] 10.1 mg/mg Normal 10.0-20.0 [facility] Comment on above: Order Comment: [facility] has implemented the eGFR calculation approach that does not have a coefficient for race that conforms to the NKF-ASN Task Force Recommendations. Performed By: #### 4 6124 ####[facility] [address] [id number] Wojciech Oneal M.D. [id number] CBCon 02-09-2025 AUTO NRBC 0.0 % Normal [facility] Comment on above: Performed By: #### 4 [id number] ####[facility] [address] [id number] Wojciech Oneal M.D. [id number] AUTO NRBC ABS COUNT 0.00 K/mcL Normal 0.00-0.00 [facility] Comment on above: Performed By: #### 4 [id number] ####[facility] [address] [id number] Wojciech Oneal M.D. [id number] Erythrocyte distribution width (RBC) [Ratio] 15.2 % High 11.6-14.8 [facility] Comment on above: Performed By: #### 4 [id number] ####[facility] [address] [id number] Wojciech Oneal M.D. [id number] Hematocrit (Bld) [Volume fraction] 28.6 % Low 41.0-53.0 [facility] Comment on above: Performed By: #### 4 [id number] ####[facility] [address] [id number] Wojciech Oneal M.D. [id number] Hemoglobin (Bld) [Mass/Vol] 8.5 g/dL Low 13.5-17.5 [facility] Comment on above: Performed By: #### 4 [id number] ####[facility] [address] [id number] Wojciech Oneal M.D. [id number] MCH (RBC) [Entitic mass] 28.5 pg Normal 26.0-34.0 [facility] Comment on above: Performed By: #### 4 [id number] ####[facility] [address] [id number] Wojciech Oneal M.D. [id number] MCV (RBC) [Entitic vol] 96.0 fL Normal 80.0-100.0 [facility] Comment on above: Performed By: #### 4 [id number] ####[facility] [address] [address] Wojciech Oneal M.D. [id number] MEAN CORPUSCULAR HEMOGLOBIN CONC 29.7 g/dL Low 31.0-37.0 [facility] Comment on above: Performed By: #### 4 [id number] ####[facility] [address] [address] Wojciech Oneal M.D. [id number] Platelet mean volume (Bld) [Entitic vol] 8.7 fL Low 9.4-12.4 [facility] Comment on above: Performed By: #### 4 [id number] ####[facility] [address] [id number] Wojciech Oneal M.D. [id number] Platelets (Bld) [#/Vol] 527 10*3/uL High 150-400 [facility] Comment on above: Result Comment: Resu lts checked Performed By: #### 4 [id number] ####[facility] [address] [id number] Wojciech Oneal M.D. [id number] RBC (Bld) [#/Vol] 2.98 10*6/uL Low 4.50-5.90 [facility] Comment on above: Performed By: #### 4 [id number] ####[facility] [address] [address] Wojciech Onela M.D. [id number] WBC (Bld) [#/Vol] 7.38 10*3/uL Normal 4.50-11.00 [facility] Comment on above: Performed By: #### 4 5218 ####[facility] [address], [place] [address] Wojciech Oneal M.D. [id number] MAGNESIUM LEVELon 02-09-2025 Magnesium [Mass/Vol] 2.2 mg/dL Normal 1.6-2.4 [facility] Comment on above: Performed By: #### 4 6109 ####[facility] [address] [id number] Wojciech Oneal M.D. [id number] Magnesium [Mass/Vol] 1.8 mg/dL Normal 1.6-2.4 [facility] Comment on above: Performed By: #### 4 6109 ####[facility] [address] [id number] Wojciech Oneal M.D. [id number] PHOSPHORUSon 02-09-2025 Phosphate [Mass/Vol] 2.4 mg/dL Normal 2.3-3.7 [facility] Comment on above: Performed By: #### 4 6299 ####[facility] [address], [place] [address] Wojciech Oneal M.D. [id number] POTASSIUM LEVELon 02-09-2025 Potassium [Moles/Vol] 3.2 mmol/L Low 3.5-5.1 [facility] Comment on above: Performed By: #### 4 6351 ####[facility] [address], [place] [address] Wojciech Oneal M.D. [id number] BASIC METABOLIC PANELon 01-13 Anion gap [Moles/Vol] 14 mmol/L Normal 10-20 [facility] Comment on above: Order Comment: [facility] has implemented the eGFR calculation approach that does not have a coefficient for race that conforms to the NKF-ASN Task Force Recommendations. Performed By: #### 4 6124 ####[facility] [address], [place] [address] Wojciech Oneal M.D. [id number] Calcium [Mass/Vol] 7.2 mg/dL Low 8.4-10.2 [facility] Comment on above: Order Comment: [facility] has implemented the eGFR calculation approach that does not have a coefficient for race that conforms to the NKF-ASN Task Force Recommendations. Performed By: #### 4 6124 ####[facility] [address] [id number] Wojciech Oneal M.D. [id number] Chloride [Moles/Vol] 113 mmol/L High 98-108 [facility] Comment on above: Order Comment: [facility] has implemented the eGFR calculation approach that does not have a coefficient for race that conforms to the NKF-ASN Task Force Recommendations. Performed By: #### 4 6124 ####[facility] [address] [id number] Wojciech Oneal M.D. [id number] Creatinine [Mass/Vol] 0.85 mg/dL Normal 0.80-1.30 [facility] Comment on above: Order Comment: [facility] has implemented the eGFR calculation approach that does not have a coefficient for race that conforms to the NKF-ASN Task Force Recommendations. Performed By: #### 4 6124 ####[facility] [address] [id number] Wojciech Oneal M.D. [id number] EGFR 93 mL/min/1.73 m2 Normal >=60 [facility] Comment on above: Order Comment: [facility] has implemented the eGFR calculation approach that does not have a coefficient for race that conforms to the NKF-ASN Task Force Recommendations. Result Comment: [place] mated GFR was calculated using the 2020 CKD-EPI creatinine equation. Performed By: #### 4 6124 ####[facility] [address] [id number] Wojciech Oneal M.D. [id number] Glucose [Mass/Vol] 83 mg/dL Normal 65-99 [facility] Comment on above: Order Comment: [facility] has implemented the eGFR calculation approach that does not have a coefficient for race that conforms to the NKF-ASN Task Force Recommendations. Performed By: #### 4 6124 ####[facility] [address] [address] Wojciech Oneal M.D. [id number] HCO3 (Bld) [Moles/Vol] 22 mmol/L Normal 21-32 [facility] Comment on above: Order Comment: [facility] has implemented the eGFR calculation approach that does not have a coefficient for race that conforms to the NKF-ASN Task Force Recommendations. Performed By: #### 4 6124 ####[facility] [address] [address] Wojciech Oneal M.D. [id number] Potassium [Moles/Vol] 3.8 mmol/L Normal 3.5-5.1 [facility] Comment on above: Order Comment: [facility] has implemented the eGFR calculation approach that does not have a coefficient for race that conforms to the NKF-ASN Task Force Recommendations. Performed By: #### 4 6124 ####[facility] [address] [id number] Wojciech Oneal M.D. [id number] Sodium [Moles/Vol] 145 mmol/L Normal 135-145 [facility] Comment on above: Order Comment: [facility] has implemented the eGFR calculation approach that does not have a coefficient for race that conforms to the NKF-ASN Task Force Recommendations. Performed By: #### 4 6124 ####[facility] [address] [id number] Wojciech Oneal M.D. [id number] Urea nitrogen [Mass/Vol] 10 mg/dL Normal 8-25 [facility] Comment on above: Order Comment: [facility] has implemented the eGFR calculation approach that does not have a coefficient for race that conforms to the NKF-ASN Task Force Recommendations. Performed By: #### 4 6124 ####[facility] [address], [place] [address] Wojciech Oneal M.D. [id number] Urea nitrogen/Creatinine [Mass ratio] 11.8 mg/mg Normal 10.0-20.0 [facility] Comment on above: Order Comment: [facility] has implemented the eGFR calculation approach that does not have a coefficient for race that conforms to the NKF-ASN Task Force Recommendations. Performed By: #### 4 6138 ####[facility] [address] [id number] Wojciech Oneal M.D. [id number] CBCon 02-08-2025 AUTO NRBC 0.0 % Normal [facility] Comment on above: Performed By: #### 4 [id number] ####[facility] [address] [address] Wojciech Oneal M.D. [id number] AUTO NRBC ABS COUNT 0.00 K/mcL Normal 0.00-0.00 [facility] Comment on above: Performed By: #### 4 5218 ####[facility] [facility] [address] [address] Wojciech Oneal M.D. [id number] Erythrocyte distribution width (RBC) [Ratio] 14.9 % High 11.6-14.8 [facility] Comment on above: Performed By: #### 4 5218 ####[place] [address] [address] Wojciech Oneal M.D. [id number] Hematocrit (Bld) [Volume fraction] 24.2 % Low 41.0-53.0 [facility] Comment on above: Performed By: #### 4 5218 ####[place] [address] [address] Wojciech Oneal M.D. [id number] Hemoglobin (Bld) [Mass/Vol] 7.2 g/dL Low 13.5-17.5 [facility] Comment on above: Performed By: #### 4 5218 ####[facility] [address] [address] Wojciech Oneal M.D. [id number] MCH (RBC) [Entitic mass] 28.9 pg Normal 26.0-34.0 [facility] Comment on above: Performed By: #### 4 5218 ####[facility] [address] [address] Wojciech Oneal M.D. [id number] MCV (RBC) [Entitic vol] 97.2 fL Normal 80.0-100.0 [facility] Comment on above: Performed By: #### 4 5218 ####[facility] [address] [address] Wojciech Oneal M.D. [id number] MEAN CORPUSCULAR HEMOGLOBIN CONC 29.8 g/dL Low 31.0-37.0 [facility] Comment on above: Performed By: #### 4 5218 ####[facility] [address] [id number] Wojciech Oneal M.D. [id number] Platelet mean volume (Bld) [Entitic vol] 10.4 fL Normal 9.4-12.4 [facility] Comment on above: Performed By: #### 4 5218 ####[facility] [address] [address] Wojciech Oneal M.D. [id number] Platelets (Bld) [#/Vol] 329 10*3/uL Normal 150-400 [facility] Comment on above: Performed By: #### 4 5218 ####[facility] [address] [address] Wojciech Oneal M.D. [id number] RBC (Bld) [#/Vol] 2.49 10*6/uL Low 4.50-5.90 [facility] Comment on above: Performed By: #### 4 5218 ####[facility] [address] [id number] Wojciech Oneal M.D. [id number] WBC (Bld) [#/Vol] 7.10 10*3/uL Normal 4.50-11.00 [facility] Comment on above: Performed By: #### 4 5218 ####[facility] [address] [id number] Wojciech Oneal M.D. [id number] MAGNESIUM LEVELon 02-08-2025 Magnesium [Mass/Vol] 2.0 mg/dL Normal 1.6-2.4 [facility] Comment on above: Performed By: #### 4 6109 ####[facility] [address] [id number] Wojciech Oneal M.D. [id number] PHOSPHORUSon 02-08-2025 Phosphate [Mass/Vol] 2.6 mg/dL Normal 2.3-3.7 [facility] Comment on above: Performed By: #### 4 6299 ####[facility] [address] [place], [place] [address] Wojciech Oneal M.D. [id number] BASIC METABOLIC PANELon 01-13 Anion gap [Moles/Vol] 14 mmol/L Normal 10-20 [facility] Comment on above: Order Comment: [facility] has implemented the eGFR calculation approach that does not have a coefficient for race that conforms to the NKF-ASN Task Force Recommendations. Performed By: #### 4 6124 ####[facility] [address] [id number] Wojciech Oneal M.D. [id number] Calcium [Mass/Vol] 7.3 mg/dL Low 8.4-10.2 [facility] Comment on above: Order Comment: [facility] has implemented the eGFR calculation approach that does not have a coefficient for race that conforms to the NKF-ASN Task Force Recommendations. Performed By: #### 4 6124 ####[facility] [address] [id number] Wojciech Oneal M.D. [id number] Chloride [Moles/Vol] 112 mmol/L High 98-108 [facility] Comment on above: Order Comment: [facility] has implemented the eGFR calculation approach that does not have a coefficient for race that conforms to the NKF-ASN Task Force Recommendations. Performed By: #### 4 6124 ####[facility] [address], [place] [address] Wojciech Oneal M.D. [id number] Creatinine [Mass/Vol] 0.94 mg/dL Normal 0.80-1.30 [facility] Comment on above: Order Comment: [facility] has implemented the eGFR calculation approach that does not have a coefficient for race that conforms to the NKF-ASN Task Force Recommendations. Performed By: #### 4 6124 ####[facility] [address] [id number] Wojciech Oneal M.D. [id number] EGFR 87 mL/min/1.73 m2 Normal >=60 [facility] Comment on above: Order Comment: [facility] has implemented the eGFR calculation approach that does not have a coefficient for race that conforms to the NKF-ASN Task Force Recommendations. Result Comment: Chelsea mated GFR was calculated using the 2020 CKD-EPI creatinine equation. Performed By: #### 4 6124 ####[facility] [address] [address] Wojciech Oneal M.D. [id number] Glucose [Mass/Vol] 97 mg/dL Normal 65-99 [facility] Comment on above: Order Comment: [facility] has implemented the eGFR calculation approach that does not have a coefficient for race that conforms to the NKF-ASN Task Force Recommendations. Performed By: #### 4 6124 ####[facility] [address] [address] Wojciech Oneal M.D. [id number] HCO3 (Bld) [Moles/Vol] 21 mmol/L Normal 21-32 [facility] Comment on above: Order Comment: [facility] has implemented the eGFR calculation approach that does not have a coefficient for race that conforms to the NKF-ASN Task Force Recommendations. Performed By: #### 4 6124 ####[facility] [address] [address] Wojciech Oneal M.D. [id number] Potassium [Moles/Vol] 3.5 mmol/L Normal 3.5-5.1 [facility] Comment on above: Order Comment: [facility] has implemented the eGFR calculation approach that does not have a coefficient for race that conforms to the NKF-ASN Task Force Recommendations. Performed By: #### 4 6124 ####[facility] [address] [address] Wojciech Oneal M.D. [id number] Sodium [Moles/Vol] 143 mmol/L Normal 135-145 [facility] Comment on above: Order Comment: [facility] has implemented the eGFR calculation approach that does not have a coefficient for race that conforms to the NKF-ASN Task Force Recommendations. Performed By: #### 4 6124 ####[facility] [address] [id number] Wojciech Oneal M.D. [id number] Urea nitrogen [Mass/Vol] 10 mg/dL Normal 8-25 [facility] Comment on above: Order Comment: [facility] has implemented the eGFR calculation approach that does not have a coefficient for race that conforms to the NKF-ASN Task Force Recommendations. Performed By: #### 4 6124 ####[facility] [address] [id number] Wojciech Oneal M.D. [id number] Urea nitrogen/Creatinine [Mass ratio] 10.6 mg/mg Normal 10.0-20.0 [facility] Comment on above: Order Comment: [facility] has implemented the eGFR calculation approach that does not have a coefficient for race that conforms to the NKF-ASN Task Force Recommendations. Performed By: #### 4 6124 ####[facility] [address] [id number] Wojciech Oneal M.D. [id number] CBCon 02-07-2025 AUTO NRBC 0.0 % Normal [facility] Comment on above: Performed By: #### 4 5218 ####[facility] [address] [id number] Wojciech Oneal M.D. [id number] AUTO NRBC ABS COUNT 0.00 K/mcL Normal 0.00-0.00 [facility] Comment on above: Performed By: #### 4 5218 ####[facility] [address] [id number] Wojciech Oneal M.D. [id number] Erythrocyte distribution width (RBC) [Ratio] 15.1 % High 11.6-14.8 [facility] Comment on above: Performed By: #### 4 5218 ####[facility] [address], [place] [address] Wojciech Oneal M.D. [id number] Hematocrit (Bld) [Volume fraction] 25.7 % Low 41.0-53.0 [facility] Comment on above: Performed By: #### 4 5218 ####[facility] [address] [id number] Wojciech Oneal M.D. [id number] Hemoglobin (Bld) [Mass/Vol] 7.5 g/dL Low 13.5-17.5 [facility] Comment on above: Performed By: #### 4 5218 ####[facility] [address] [id number] Wojciech Oneal M.D. [id number] MCH (RBC) [Entitic mass] 28.3 pg Normal 26.0-34.0 [facility] Comment on above: Performed By: #### 4 5218 ####[facility] [address] [address] Wojciech Oneal M.D. [id number] MCV (RBC) [Entitic vol] 97.0 fL Normal 80.0-100.0 [facility] Comment on above: Performed By: #### 4 5218 ####[facility] [address] [address] Wojciech Oneal M.D. [id number] MEAN CORPUSCULAR HEMOGLOBIN CONC 29.2 g/dL Low 31.0-37.0 [facility] Comment on above: Performed By: #### 4 5218 ####[facility] [address] [address] Wojciech Oneal M.D. [id number] Platelet mean volume (Bld) [Entitic vol] 9.0 fL Low 9.4-12.4 [facility] Comment on above: Performed By: #### 4 5218 ####[facility] [address] [address] Wojciech Oneal M.D. [id number] Platelets (Bld) [#/Vol] 382 10*3/uL Normal 150-400 [facility] Comment on above: Performed By: #### 4 5218 ####[facility] [address] [id number] Wojciech Oneal M.D. [id number] RBC (Bld) [#/Vol] 2.65 10*6/uL Low 4.50-5.90 [facility] Comment on above: Performed By: #### 4 5218 ####[facility] [address] [address] Wojciech Oneal M.D. [id number] WBC (Bld) [#/Vol] 7.01 10*3/uL Normal 4.50-11.00 [facility] Comment on above: Performed By: #### 4 5218 ####[facility] [address], [place] [address] Wojciech Oneal M.D. [id number] MAGNESIUM LEVELon 02-07-2025 Magnesium [Mass/Vol] 1.7 mg/dL Normal 1.6-2.4 [facility] Comment on above: Performed By: #### 4 6109 ####[facility] [address] [id number] Wojciech Oneal M.D. [id number] PHOSPHORUSon 02-07-2025 Phosphate [Mass/Vol] 2.6 mg/dL Normal 2.3-3.7 [facility] Comment on above: Performed By: #### 4 6299 ####[facility] [address], [place] [address] Wojciech Oneal M.D. [id number] POTASSIUM LEVELon 02-07-2025 Potassium [Moles/Vol] 3.7 mmol/L Normal 3.5-5.1 [facility] Comment on above: Performed By: #### 4 6351 ####[facility] [address], [place] [address] Wojciech Oneal M.D. [id number] BASIC METABOLIC PANELon 01-13 Anion gap [Moles/Vol] 14 mmol/L Normal 10-20 [facility] Comment on above: Order Comment: [facility] has implemented the eGFR calculation approach that does not have a coefficient for race that conforms to the NKF-ASN Task Force Recommendations. Performed By: #### 4 6124 ####[facility] [address], [place] [address] Wojciech Oneal M.D. [id number] Calcium [Mass/Vol] 7.4 mg/dL Low 8.4-10.2 [facility] Comment on above: Order Comment: [facility] has implemented the eGFR calculation approach that does not have a coefficient for race that conforms to the NKF-ASN Task Force Recommendations. Performed By: #### 4 6124 ####[facility] [address] [id number] Wojciech Oneal M.D. [id number] Chloride [Moles/Vol] 114 mmol/L High 98-108 [facility] Comment on above: Order Comment: [facility] has implemented the eGFR calculation approach that does not have a coefficient for race that conforms to the NKF-ASN Task Force Recommendations. Performed By: #### 4 6124 ####[facility] [address] [id number] Wojciech Oneal M.D. [id number] Creatinine [Mass/Vol] 1.03 mg/dL Normal 0.80-1.30 [facility] Comment on above: Order Comment: [facility] has implemented the eGFR calculation approach that does not have a coefficient for race that conforms to the NKF-ASN Task Force Recommendations. Performed By: #### 4 6124 ####[facility] [address] [id number] Wojciech Oneal M.D. [id number] EGFR 78 mL/min/1.73 m2 Normal >=60 [facility] Comment on above: Order Comment: [facility] has implemented the eGFR calculation approach that does not have a coefficient for race that conforms to the NKF-ASN Task Force Recommendations. Result Comment: [place] mated GFR was calculated using the 2020 CKD-EPI creatinine equation. Performed By: #### 4 6124 ####[facility] [address] [id number] Wojciech Oneal M.D. [id number] Glucose [Mass/Vol] 91 mg/dL Normal 65-99 [facility] Comment on above: Order Comment: [facility] has implemented the eGFR calculation approach that does not have a coefficient for race that conforms to the NKF-ASN Task Force Recommendations. Performed By: #### 4 6124 ####[facility] [address] [id number] Wojciech Oneal M.D. [id number] HCO3 (Bld) [Moles/Vol] 21 mmol/L Normal 21-32 [facility] Comment on above: Order Comment: [facility] has implemented the eGFR calculation approach that does not have a coefficient for race that conforms to the NKF-ASN Task Force Recommendations. Performed By: #### 4 6124 ####[facility] [address], [place] [address] Wojciech Oneal M.D. [id number] Potassium [Moles/Vol] 3.6 mmol/L Normal 3.5-5.1 [facility] Comment on above: Order Comment: [facility] has implemented the eGFR calculation approach that does not have a coefficient for race that conforms to the NKF-ASN Task Force Recommendations. Performed By: #### 4 6124 ####[facility] [address], [place] [address] Wojciech Oneal M.D. [id number] Sodium [Moles/Vol] 145 mmol/L Normal 135-145 [facility] Comment on above: Order Comment: [facility] has implemented the eGFR calculation approach that does not have a coefficient for race that conforms to the NKF-ASN Task Force Recommendations. Performed By: #### 4 6124 ####[facility] [address] [id number] Wojciech Oneal M.D. [id number] Urea nitrogen [Mass/Vol] 10 mg/dL Normal 8-25 [facility] Comment on above: Order Comment: [facility] has implemented the eGFR calculation approach that does not have a coefficient for race that conforms to the NKF-ASN Task Force Recommendations. Performed By: #### 4 6124 ####[facility] [address], [place] [address] Wojciech Oneal M.D. [id number] Urea nitrogen/Creatinine [Mass ratio] 9.7 mg/mg Low 10.0-20.0 [facility] Comment on above: Order Comment: [facility] has implemented the eGFR calculation approach that does not have a coefficient for race that conforms to the NKF-ASN Task Force Recommendations. Performed By: #### 4 6124 ####[facility] [address], [place] [address] Wojciech Oneal M.D. [id number] CBCon 02-06-2025 AUTO NRBC 0.0 % Normal [facility] Comment on above: Performed By: #### 4 5218 ####[facility] [address] [address] Wojciech Oneal M.D. [id number] AUTO NRBC ABS COUNT 0.00 K/mcL Normal 0.00-0.00 [facility] Comment on above: Performed By: #### 4 5218 ####[facility] [address] [address] Wojciech Oneal M.D. [id number] Erythrocyte distribution width (RBC) [Ratio] 14.9 % High 11.6-14.8 [facility] Comment on above: Performed By: #### 4 5218 ####[facility] [address] [address] Wojciech Oneal M.D. [id number] Hematocrit (Bld) [Volume fraction] 27.1 % Low 41.0-53.0 [facility] Comment on above: Performed By: #### 4 5218 ####[facility] [address] [address] Wojciech Oneal M.D. [id number] Hemoglobin (Bld) [Mass/Vol] 8.0 g/dL Low 13.5-17.5 [facility] Comment on above: Performed By: #### 4 5218 ####[facility] [address] [address] Wojciech Oneal M.D. [id number] MCH (RBC) [Entitic mass] 28.9 pg Normal 26.0-34.0 [facility] Comment on above: Performed By: #### 4 5218 ####[facility] [address] [address] Wojciech Oneal M.D. [id number] MCV (RBC) [Entitic vol] 97.8 fL Normal 80.0-100.0 [facility] Comment on above: Performed By: #### 4 5218 ####[facility] [address] [address] Wojciech Oneal M.D. [id number] MEAN CORPUSCULAR HEMOGLOBIN CONC 29.5 g/dL Low 31.0-37.0 [facility] Comment on above: Performed By: #### 4 5218 ####[facility] [address], [place] [address] Wojciech Oneal M.D. [id number] Platelet mean volume (Bld) [Entitic vol] 9.1 fL Low 9.4-12.4 [facility] Comment on above: Performed By: #### 4 5218 ####[facility] [address], [place] [address] Wojciech Oneal M.D. [id number] Platelets (Bld) [#/Vol] 404 10*3/uL High 150-400 [facility] Comment on above: Performed By: #### 4 5218 ####[facility] [address], [place] [address] Wojciech Oneal M.D. [id number] RBC (Bld) [#/Vol] 2.77 10*6/uL Low 4.50-5.90 [facility] Comment on above: Performed By: #### 4 5218 ####[facility] [address], [place] [address] Wojciech Oneal M.D. [id number] WBC (Bld) [#/Vol] 7.93 10*3/uL Normal 4.50-11.00 [facility] Comment on above: Performed By: #### 4 5218 ####[facility] [address], [place] [address] Wojciech Oneal M.D. [id number] CBC W/Diff, Automatedon - PATH REV Reviewed Normal [facility] Comment on above: Result Comment: SEE REPORT IN PATIENT'S EMR AMENDED REPORT 02/06/25 1126 PATH REV previously reported as: September Performed By: #### L 509.7001, L100.0100, L503.6005, L503.7505, L501.3620, L500.2500, L501.5200, L500.3400 #### [facility] [address] [place], [address] MAGNESIUM LEVELon 02-06-2025 Magnesium [Mass/Vol] 1.9 mg/dL Normal 1.6-2.4 [facility] Comment on above: Performed By: #### 4 6109 ####[facility] [address], [place] [address] Wojciech Oneal M.D. [id number] PHOSPHORUSon 02-06-2025 Phosphate [Mass/Vol] 2.5 mg/dL Normal 2.3-3.7 [facility] Comment on above: Performed By: #### 4 6299 ####[facility] [address] [id number] Wojciech Oneal M.D. [id number] BASIC METABOLIC PANELon 01-13 Anion gap [Moles/Vol] 13 mmol/L Normal 10-20 [facility] Comment on above: Order Comment: [facility] has implemented the eGFR calculation approach that does not have a coefficient for race that conforms to the NKF-ASN Task Force Recommendations. Performed By: #### 4 6124 ####[facility] [address], [place] [address] Wojciech Oneal M.D. [id number] Calcium [Mass/Vol] 7.2 mg/dL Low 8.4-10.2 [facility] Comment on above: Order Comment: [facility] has implemented the eGFR calculation approach that does not have a coefficient for race that conforms to the NKF-ASN Task Force Recommendations. Performed By: #### 4 6124 ####[facility] [address], [place] [address] Wojciech Oneal M.D. [id number] Chloride [Moles/Vol] 114 mmol/L High 98-108 [facility] Comment on above: Order Comment: [facility] has implemented the eGFR calculation approach that does not have a coefficient for race that conforms to the NKF-ASN Task Force Recommendations. Performed By: #### 4 6124 ####[facility] [address], [place] [address] Wojciech Oneal M.D. [id number] Creatinine [Mass/Vol] 1.05 mg/dL Normal 0.80-1.30 [facility] Comment on above: Order Comment: [facility] has implemented the eGFR calculation approach that does not have a coefficient for race that conforms to the NKF-ASN Task Force Recommendations. Performed By: #### 4 6124 ####[facility] [address], [place] [address] Wojciech Oneal M.D. [id number] EGFR 76 mL/min/1.73 m2 Normal >=60 [facility] Comment on above: Order Comment: [facility] has implemented the eGFR calculation approach that does not have a coefficient for race that conforms to the NKF-ASN Task Force Recommendations. Result Comment: Chelsea mated GFR was calculated using the 2020 CKD-EPI creatinine equation. Performed By: #### 4 6124 ####[facility] [address] [id number] Wojciech Oneal M.D. [id number] Glucose [Mass/Vol] 105 mg/dL High 65-99 [facility] Comment on above: Order Comment: [facility] has implemented the eGFR calculation approach that does not have a coefficient for race that conforms to the NKF-ASN Task Force Recommendations. Performed By: #### 4 6124 ####[facility] [address] [id number] Wojciech Oneal M.D. [id number] HCO3 (Bld) [Moles/Vol] 21 mmol/L Normal 21-32 [facility] Comment on above: Order Comment: [facility] has implemented the eGFR calculation approach that does not have a coefficient for race that conforms to the NKF-ASN Task Force Recommendations. Performed By: #### 4 6124 ####[facility] [address] [address] Wojciech Oneal M.D. [id number] Potassium [Moles/Vol] 3.7 mmol/L Normal 3.5-5.1 [facility] Comment on above: Order Comment: [facility] has implemented the eGFR calculation approach that does not have a coefficient for race that conforms to the NKF-ASN Task Force Recommendations. Performed By: #### 4 6124 ####[facility] [address] [id number] Wojciech Oneal M.D. [id number] Sodium [Moles/Vol] 144 mmol/L Normal 135-145 [facility] Comment on above: Order Comment: [facility] has implemented the eGFR calculation approach that does not have a coefficient for race that conforms to the NKF-ASN Task Force Recommendations. Performed By: #### 4 6124 ####[facility] [address] [id number] Wojciech Oneal M.D. [id number] Urea nitrogen [Mass/Vol] 11 mg/dL Normal 8-25 [facility] Comment on above: Order Comment: [facility] has implemented the eGFR calculation approach that does not have a coefficient for race that conforms to the NKF-ASN Task Force Recommendations. Performed By: #### 4 6124 ####[facility] [address] [address] Wojciech Oneal M.D. [id number] Urea nitrogen/Creatinine [Mass ratio] 10.5 mg/mg Normal 10.0-20.0 [facility] Comment on above: Order Comment: [facility] has implemented the eGFR calculation approach that does not have a coefficient for race that conforms to the NKF-ASN Task Force Recommendations. Performed By: #### 4 6124 ####[facility] [address] [id number] Wojciech Oneal M.D. [id number] CBCon 02-05-2025 AUTO NRBC 0.0 % Normal [facility] Comment on above: Performed By: #### 4 [id number] ####[facility] [address] [id number] Wojciech Oneal M.D. [id number] AUTO NRBC ABS COUNT 0.00 K/mcL Normal 0.00-0.00 [facility] Comment on above: Performed By: #### 4 [id number] ####[facility] [address] [id number] Wojciech Oneal M.D. [id number] Erythrocyte distribution width (RBC) [Ratio] 15.0 % High 11.6-14.8 [facility] Comment on above: Performed By: #### 4 [id number] ####[facility] [address] [id number] Wojciech Oneal M.D. [id number] Hematocrit (Bld) [Volume fraction] 23.9 % Low 41.0-53.0 [facility] Comment on above: Performed By: #### 4 [id number] ####[facility] [address] [address] Wojciech Oneal M.D. [id number] Hemoglobin (Bld) [Mass/Vol] 7.3 g/dL Low 13.5-17.5 [facility] Comment on above: Performed By: #### 4 5218 ####[facility] [address] [address] Wojciech Oneal M.D. [id number] MCH (RBC) [Entitic mass] 29.4 pg Normal 26.0-34.0 [facility] Comment on above: Performed By: #### 4 5218 ####[facility] [address] [address] Wojciech Oneal M.D. [id number] MCV (RBC) [Entitic vol] 96.4 fL Normal 80.0-100.0 [facility] Comment on above: Performed By: #### 4 5218 ####[facility] [address] [address] Wojciech Oneal M.D. [id number] MEAN CORPUSCULAR HEMOGLOBIN CONC 30.5 g/dL Low 31.0-37.0 [facility] Comment on above: Performed By: #### 4 5218 ####[facility] [address] [address] Wojciech Oneal M.D. [id number] Platelet mean volume (Bld) [Entitic vol] 9.1 fL Low 9.4-12.4 [facility] Comment on above: Performed By: #### 4 5218 ####[facility] [address] [address] Wojciech Oneal M.D. [id number] Platelets (Bld) [#/Vol] 367 10*3/uL Normal 150-400 [facility] Comment on above: Performed By: #### 4 [id number] ####[facility] [address] [address] Wojciech Oneal M.D. [id number] RBC (Bld) [#/Vol] 2.48 10*6/uL Low 4.50-5.90 [facility] Comment on above: Performed By: #### 4 5218 ####[facility] [address], [place] [address] Wojciech Oneal M.D. [id number] WBC (Bld) [#/Vol] 7.51 10*3/uL Normal 4.50-11.00 [facility] Comment on above: Performed By: #### 4 5218 ####[facility] [address], [place] [address] Wojciech Oneal M.D. [id number] MAGNESIUM LEVELon 02-05-2025 Magnesium [Mass/Vol] 2.0 mg/dL Normal 1.6-2.4 [facility] Comment on above: Performed By: #### 4 6109 ####[facility] [address], [place] [address] Wojciech Oneal M.D. [id number] PHOSPHORUSon 02-05-2025 Phosphate [Mass/Vol] 2.9 mg/dL Normal 2.3-3.7 [facility] Comment on above: Performed By: #### 4 6299 ####[facility] [address], [place] [address] Wojciech Oneal M.D. [id number] POTASSIUM LEVELon 02-05-2025 Potassium [Moles/Vol] 3.8 mmol/L Normal 3.5-5.1 [facility] Comment on above: Performed By: #### 4 6351 ####[facility] [address], [place] [address] Wojciech Oneal M.D. [id number] Potassium [Moles/Vol] 3.7 mmol/L Normal 3.5-5.1 [facility] Comment on above: Performed By: #### 4 6351 ####[facility] [address], [place] [address] Wojciech Oneal M.D. [id number] BASIC METABOLIC PANELon 01-13 Anion gap [Moles/Vol] 11 mmol/L Normal 10-20 [facility] Comment on above: Order Comment: [facility] has implemented the eGFR calculation approach that does not have a coefficient for race that conforms to the NKF-ASN Task Force Recommendations. Performed By: #### 4 6124 ####[facility] [address] [id number] Wojciech Oneal M.D. [id number] Calcium [Mass/Vol] 7.2 mg/dL Low 8.4-10.2 [facility] Comment on above: Order Comment: [facility] has implemented the eGFR calculation approach that does not have a coefficient for race that conforms to the NKF-ASN Task Force Recommendations. Performed By: #### 4 6124 ####[facility] [address] [id number] Wojciech Oneal M.D. [id number] Chloride [Moles/Vol] 116 mmol/L High 98-108 [facility] Comment on above: Order Comment: [facility] has implemented the eGFR calculation approach that does not have a coefficient for race that conforms to the NKF-ASN Task Force Recommendations. Performed By: #### 4 6124 ####[facility] [address] [address] Wojciech Oneal M.D. [id number] Creatinine [Mass/Vol] 0.98 mg/dL Normal 0.80-1.30 [facility] Comment on above: Order Comment: [facility] has implemented the eGFR calculation approach that does not have a coefficient for race that conforms to the NKF-ASN Task Force Recommendations. Performed By: #### 4 6124 ####[facility] [address] [id number] Wojciech Oneal M.D. [id number] EGFR 82 mL/min/1.73 m2 Normal >=60 [facility] Comment on above: Order Comment: [facility] has implemented the eGFR calculation approach that does not have a coefficient for race that conforms to the NKF-ASN Task Force Recommendations. Result Comment: Chelsea mated GFR was calculated using the 2020 CKD-EPI creatinine equation. Performed By: #### 4 6124 ####[facility] [address] [id number] Wojciech Oneal M.D. [id number] Glucose [Mass/Vol] 98 mg/dL Normal 65-99 [facility] Comment on above: Order Comment: [facility] has implemented the eGFR calculation approach that does not have a coefficient for race that conforms to the NKF-ASN Task Force Recommendations. Performed By: #### 4 6124 ####[facility] [address] [id number] Wojciech Oneal M.D. [id number] HCO3 (Bld) [Moles/Vol] 21 mmol/L Normal 21-32 [facility] Comment on above: Order Comment: [facility] has implemented the eGFR calculation approach that does not have a coefficient for race that conforms to the NKF-ASN Task Force Recommendations. Performed By: #### 4 6124 ####[facility] [address] [id number] Wojciech Oneal M.D. [id number] Potassium [Moles/Vol] 3.8 mmol/L Normal 3.5-5.1 [facility] Comment on above: Order Comment: [facility] has implemented the eGFR calculation approach that does not have a coefficient for race that conforms to the NKF-ASN Task Force Recommendations. Performed By: #### 4 6124 ####[facility] [address] [id number] Wojciech Oneal M.D. [id number] Sodium [Moles/Vol] 144 mmol/L Normal 135-145 [facility] Comment on above: Order Comment: [facility] has implemented the eGFR calculation approach that does not have a coefficient for race that conforms to the NKF-ASN Task Force Recommendations. Performed By: #### 4 6124 ####[facility] [address] [id number] Wojciech Oneal M.D. [id number] Urea nitrogen [Mass/Vol] 11 mg/dL Normal 8-25 [facility] Comment on above: Order Comment: [facility] has implemented the eGFR calculation approach that does not have a coefficient for race that conforms to the NKF-ASN Task Force Recommendations. Performed By: #### 4 6124 ####[facility] [address] [address] Wojciech Oneal M.D. [id number] Urea nitrogen/Creatinine [Mass ratio] 11.2 mg/mg Normal 10.0-20.0 [facility] Comment on above: Order Comment: [facility] has implemented the eGFR calculation approach that does not have a coefficient for race that conforms to the NKF-ASN Task Force Recommendations. Performed By: #### 4 6124 ####[facility] [address] [address] Wojciech Oneal M.D. [id number] CBCon 02-04-2025 AUTO NRBC 0.0 % Normal [facility] Comment on above: Performed By: #### 4 5218 ####[facility] [address] [address] Wojciech Oneal M.D. [id number] AUTO NRBC ABS COUNT 0.00 K/mcL Normal 0.00-0.00 [facility] Comment on above: Performed By: #### 4 5218 ####[facility] [address] [address] Wojciech Oneal M.D. [id number] Erythrocyte distribution width (RBC) [Ratio] 15.1 % High 11.6-14.8 [facility] Comment on above: Performed By: #### 4 5218 ####[facility] [address] [id number] Wojciech Oneal M.D. [id number] Hematocrit (Bld) [Volume fraction] 23.2 % Low 41.0-53.0 [facility] Comment on above: Performed By: #### 4 5218 ####[facility] [address] [address] Wojciech Oneal M.D. [id number] Hemoglobin (Bld) [Mass/Vol] 7.1 g/dL Low 13.5-17.5 [facility] Comment on above: Performed By: #### 4 5218 ####[facility] [address] [address] Wojciech Oneal M.D. [id number] MCH (RBC) [Entitic mass] 29.2 pg Normal 26.0-34.0 [facility] Comment on above: Performed By: #### 4 5218 ####[facility] [address], [place] [address] Wojciech Oneal M.D. [id number] MCV (RBC) [Entitic vol] 95.5 fL Normal 80.0-100.0 [facility] Comment on above: Performed By: #### 4 5218 ####[facility] [address] [id number] Wojciech Oneal M.D. [id number] MEAN CORPUSCULAR HEMOGLOBIN CONC 30.6 g/dL Low 31.0-37.0 [facility] Comment on above: Performed By: #### 4 5218 ####[facility] [address] [id number] Wojciech Oneal M.D. [id number] Platelet mean volume (Bld) [Entitic vol] 8.6 fL Low 9.4-12.4 [facility] Comment on above: Performed By: #### 4 5218 ####[facility] [address] [id number] Wojciech Oneal M.D. [id number] Platelets (Bld) [#/Vol] 317 10*3/uL Normal 150-400 [facility] Comment on above: Performed By: #### 4 5218 ####[facility] [address] [id number] Wojciech Oneal M.D. [id number] RBC (Bld) [#/Vol] 2.43 10*6/uL Low 4.50-5.90 [facility] Comment on above: Performed By: #### 4 5218 ####[facility] [address] [id number] Wojciech Oneal M.D. [id number] WBC (Bld) [#/Vol] 8.26 10*3/uL Normal 4.50-11.00 [facility] Comment on above: Performed By: #### 4 5218 ####[facility] [address] [id number] Wojciech Oneal M.D. [id number] MAGNESIUM LEVELon 02-04-2025 Magnesium [Mass/Vol] 1.9 mg/dL Normal 1.6-2.4 [facility] Comment on above: Performed By: #### 4 6109 ####[facility] [address], [place] [address] Wojciech Oneal M.D. [id number] OP NOTEon 02-04-[address] [facility] PHOSPHORUSon 02-04-2025 Phosphate [Mass/Vol] 2.4 mg/dL Normal 2.3-3.7 [facility] Comment on above: Performed By: #### 4 6299 ####[facility] [address] [id number] Wojciech Oneal M.D. [id number] TYPE AND SCREENon 02-04-2025 TYPE AND SCREEN ABORH: O Positive AB SCREEN: Negative EXPIRATION DATE: 02/07/2025 23:59 EST [facility] Comment on above: Performed By: #### 4 6619 ####[facility] [address] [address] Radha Kelsey MD [id number] [facility] BASIC METABOLIC PANELon 01-13 Anion gap [Moles/Vol] 16 mmol/L Normal 10-20 [facility] Comment on above: Order Comment: [facility] has implemented the eGFR calculation approach that does not have a coefficient for race that conforms to the NKF-ASN Task Force Recommendations. Performed By: #### 4 6124 ####[facility] [address], [place] [address] Wojciech Oneal M.D. [id number] Calcium [Mass/Vol] 7.1 mg/dL Low 8.4-10.2 [facility] Comment on above: Order Comment: [facility] has implemented the eGFR calculation approach that does not have a coefficient for race that conforms to the NKF-ASN Task Force Recommendations. Performed By: #### 4 6124 ####[facility] [address] [id number] Wojciech Oneal M.D. [id number] Chloride [Moles/Vol] 114 mmol/L High 98-108 [facility] Comment on above: Order Comment: [facility] has implemented the eGFR calculation approach that does not have a coefficient for race that conforms to the NKF-ASN Task Force Recommendations. Performed By: #### 4 6124 ####[facility] [address], [place] [address] Wojciech Oneal M.D. [id number] Creatinine [Mass/Vol] 0.94 mg/dL Normal 0.80-1.30 [facility] Comment on above: Order Comment: [facility] has implemented the eGFR calculation approach that does not have a coefficient for race that conforms to the NKF-ASN Task Force Recommendations. Performed By: #### 4 6124 ####[facility] [address], [place] [address] Wojciech Oneal M.D. [id number] EGFR 87 mL/min/1.73 m2 Normal >=60 [facility] Comment on above: Order Comment: [facility] has implemented the eGFR calculation approach that does not have a coefficient for race that conforms to the NKF-ASN Task Force Recommendations. Result Comment: Chelsea mated GFR was calculated using the 2020 CKD-EPI creatinine equation. Performed By: #### 4 6124 ####[facility] [address] [id number] Wojciech Oneal M.D. [id number] Glucose [Mass/Vol] 90 mg/dL Normal 65-99 [facility] Comment on above: Order Comment: [facility] has implemented the eGFR calculation approach that does not have a coefficient for race that conforms to the NKF-ASN Task Force Recommendations. Performed By: #### 4 6124 ####[facility] [address] [id number] Wojciech Oneal M.D. [id number] HCO3 (Bld) [Moles/Vol] 19 mmol/L Low 21-32 [facility] Comment on above: Order Comment: [facility] has implemented the eGFR calculation approach that does not have a coefficient for race that conforms to the NKF-ASN Task Force Recommendations. Performed By: #### 4 6124 ####[facility] [address], [place] [address] Wojciech Oneal M.D. [id number] Potassium [Moles/Vol] 3.7 mmol/L Normal 3.5-5.1 [facility] Comment on above: Order Comment: [facility] has implemented the eGFR calculation approach that does not have a coefficient for race that conforms to the NKF-ASN Task Force Recommendations. Performed By: #### 4 6124 ####[facility] [address] [id number] Wojciech Oneal M.D. [id number] Sodium [Moles/Vol] 145 mmol/L Normal 135-145 [facility] Comment on above: Order Comment: [facility] has implemented the eGFR calculation approach that does not have a coefficient for race that conforms to the NKF-ASN Task Force Recommendations. Performed By: #### 4 6124 ####[facility] [address] [id number] Wojciech Oneal M.D. [id number] Urea nitrogen [Mass/Vol] 11 mg/dL Normal 8-25 [facility] Comment on above: Order Comment: [facility] has implemented the eGFR calculation approach that does not have a coefficient for race that conforms to the NKF-ASN Task Force Recommendations. Performed By: #### 4 6124 ####[facility] [address] [id number] Wojciech Oneal M.D. [id number] Urea nitrogen/Creatinine [Mass ratio] 11.7 mg/mg Normal 10.0-20.0 [facility] Comment on above: Order Comment: [facility] has implemented the eGFR calculation approach that does not have a coefficient for race that conforms to the NKF-ASN Task Force Recommendations. Performed By: #### 4 6124 ####[facility] [address], [place] [address] Wojciech Oneal M.D. [id number] CALCIUM, IONIZEDon CALCIUM IONIZED 4.5 mg/dL Normal 4.5-5.3 [facility] Comment on above: Performed By: #### 4 5190 ####[facility] [address], [place] [address] Wojciech Oneal M.D. [id number] CBCon 02-03-2025 AUTO NRBC 0.0 % Normal [facility] Comment on above: Performed By: #### 4 5218 ####[facility] [address] [address] Wojciech nOeal M.D. [id number] AUTO NRBC ABS COUNT 0.00 K/mcL Normal 0.00-0.00 [facility] Comment on above: Performed By: #### 4 5218 ####[facility] [address] [address] Wojciech Oneal M.D. [id number] Erythrocyte distribution width (RBC) [Ratio] 15.2 % High 11.6-14.8 [facility] Comment on above: Performed By: #### 4 5218 ####[facility] [address] [address] Wojciech Oneal M.D. [id number] Hematocrit (Bld) [Volume fraction] 24.2 % Low 41.0-53.0 [facility] Comment on above: Performed By: #### 4 5218 ####[facility] [address] [address] Wojciech Oneal M.D. [id number] Hemoglobin (Bld) [Mass/Vol] 7.4 g/dL Low 13.5-17.5 [facility] Comment on above: Performed By: #### 4 5218 ####[facility] [address] [address] Wojciech Oneal M.D. [id number] MCH (RBC) [Entitic mass] 29.2 pg Normal 26.0-34.0 [facility] Comment on above: Performed By: #### 4 5218 ####[facility] [address] [address] Wojciech Oneal M.D. [id number] MCV (RBC) [Entitic vol] 95.7 fL Normal 80.0-100.0 [facility] Comment on above: Performed By: #### 4 5218 ####[facility] [address] [address] Wojciech Oneal M.D. [id number] MEAN CORPUSCULAR HEMOGLOBIN CONC 30.6 g/dL Low 31.0-37.0 [facility] Comment on above: Performed By: #### 4 5218 ####[facility] [address], [place] [address] Wojciech Oneal M.D. [id number] Platelet mean volume (Bld) [Entitic vol] 9.2 fL Low 9.4-12.4 [facility] Comment on above: Performed By: #### 4 5218 ####[facility] [address], [place] [address] Wojciech Oneal M.D. [id number] Platelets (Bld) [#/Vol] 342 10*3/uL Normal 150-400 [facility] Comment on above: Performed By: #### 4 5218 ####[facility] [address], [place] [address] Wojciech Oneal M.D. [id number] RBC (Bld) [#/Vol] 2.53 10*6/uL Low 4.50-5.90 [facility] Comment on above: Performed By: #### 4 5218 ####[facility] [address] [id number] Wojciech Oneal M.D. [id number] WBC (Bld) [#/Vol] 10.83 10*3/uL Normal 4.50-11.00 [facility] Comment on above: Performed By: #### 4 5218 ####[facility] [address] [id number] Wojciech Oneal M.D. [id number] MAGNESIUM LEVELon 02-03-2025 Magnesium [Mass/Vol] 2.1 mg/dL Normal 1.6-2.4 [facility] Comment on above: Performed By: #### 4 6109 ####[facility] [address] [id number] Wojciech Oneal M.D. [id number] PHOSPHORUSon 02-03-2025 Phosphate [Mass/Vol] 2.4 mg/dL Normal 2.3-3.7 [facility] Comment on above: Performed By: #### 4 6299 ####[facility] [address] [id number] Wojciech Oneal M.D. [id number] POTASSIUM LEVELon 02-03-2025 Potassium [Moles/Vol] 3.6 mmol/L Normal 3.5-5.1 [facility] Comment on above: Performed By: #### 4 6351 ####[facility] [address], [place] [address] Wojciech Oneal M.D. [id number] Potassium [Moles/Vol] 3.7 mmol/L Normal 3.5-5.1 [facility] Comment on above: Performed By: #### 4 6351 ####[facility] [address], [place] [address] Wojciech Oneal M.D. [id number] Potassium [Moles/Vol] 3.6 mmol/L Normal 3.5-5.1 [facility] Comment on above: Performed By: #### 4 6351 ####[facility] [address], [place] [address] Wojciech Oneal M.D. [id number] XR ABDOMEN /KUB/FLAT PLATE/1 VIEWon 02-03-2025 XR ABDOMEN /KUB/FLAT PLATE/[address] [facility] Comment on above: Order Comment: Injur y/Trauma or Illness?:Injury/TraumaHow long have you had these symptoms (acute/chronic)?:AcuteReason for exam?:Abdominal distention, vomitingHistory of cancer?:unkSurgeries, chemotherapy, or radiation?:unkType of Exam?:Subsequent/Follow-upMechanism of injury?:Abdominal distention, vomiting BASIC METABOLIC PANELon 01-13 Anion gap [Moles/Vol] 12 mmol/L Normal 10-20 [facility] Comment on above: Order Comment: [facility] has implemented the eGFR calculation approach that does not have a coefficient for race that conforms to the NKF-ASN Task Force Recommendations. Performed By: #### 4 6124 ####[facility] [address], [place] [address] Wojciech Oneal M.D. [id number] Calcium [Mass/Vol] 6.9 mg/dL Low 8.4-10.2 [facility] Comment on above: Order Comment: [facility] has implemented the eGFR calculation approach that does not have a coefficient for race that conforms to the NKF-ASN Task Force Recommendations. Performed By: #### 4 6124 ####[facility] [address] [id number] Wojciech Oneal M.D. [id number] Chloride [Moles/Vol] 113 mmol/L High 98-108 [facility] Comment on above: Order Comment: [facility] has implemented the eGFR calculation approach that does not have a coefficient for race that conforms to the NKF-ASN Task Force Recommendations. Performed By: #### 4 6124 ####[facility] [address] [address] Wojciech Oneal M.D. [id number] Creatinine [Mass/Vol] 0.97 mg/dL Normal 0.80-1.30 [facility] Comment on above: Order Comment: [facility] has implemented the eGFR calculation approach that does not have a coefficient for race that conforms to the NKF-ASN Task Force Recommendations. Performed By: #### 4 6124 ####[facility] [address] [id number] Wojciech Oneal M.D. [id number] EGFR 83 mL/min/1.73 m2 Normal >=60 [facility] Comment on above: Order Comment: [facility] has implemented the eGFR calculation approach that does not have a coefficient for race that conforms to the NKF-ASN Task Force Recommendations. Result Comment: [place] mated GFR was calculated using the 2020 CKD-EPI creatinine equation. Performed By: #### 4 6124 ####[facility] [address] [id number] Wojciech Oneal M.D. [id number] Glucose [Mass/Vol] 108 mg/dL High 65-99 [facility] Comment on above: Order Comment: [facility] has implemented the eGFR calculation approach that does not have a coefficient for race that conforms to the NKF-ASN Task Force Recommendations. Performed By: #### 4 6124 ####[facility] [address] [id number] Wojciech Oneal M.D. [id number] HCO3 (Bld) [Moles/Vol] 23 mmol/L Normal 21-32 [facility] Comment on above: Order Comment: [facility] has implemented the eGFR calculation approach that does not have a coefficient for race that conforms to the NKF-ASN Task Force Recommendations. Performed By: #### 4 6124 ####[facility] [address] [id number] Wojciech Oneal M.D. [id number] Potassium [Moles/Vol] 3.2 mmol/L Low 3.5-5.1 [facility] Comment on above: Order Comment: [facility] has implemented the eGFR calculation approach that does not have a coefficient for race that conforms to the NKF-ASN Task Force Recommendations. Performed By: #### 4 6124 ####[facility] [address] [id number] Wojciech Oneal M.D. [id number] Sodium [Moles/Vol] 145 mmol/L Normal 135-145 [facility] Comment on above: Order Comment: [facility] has implemented the eGFR calculation approach that does not have a coefficient for race that conforms to the NKF-ASN Task Force Recommendations. Performed By: #### 4 6124 ####[facility] [address] [address] Wojciech Oneal M.D. [id number] Urea nitrogen [Mass/Vol] 10 mg/dL Normal 8-25 [facility] Comment on above: Order Comment: [facility] has implemented the eGFR calculation approach that does not have a coefficient for race that conforms to the NKF-ASN Task Force Recommendations. Performed By: #### 4 6124 ####[facility] [address] [id number] Wojciech Oneal M.D. [id number] Urea nitrogen/Creatinine [Mass ratio] 10.3 mg/mg Normal 10.0-20.0 [facility] Comment on above: Order Comment: [facility] has implemented the eGFR calculation approach that does not have a coefficient for race that conforms to the NKF-ASN Task Force Recommendations. Performed By: #### 4 6124 ####[facility] [address] [id number] Wojciech Oneal M.D. [id number] CALCIUM, IONIZEDon 09-22-202 5 CALCIUM IONIZED 4.6 mg/dL Normal 4.5-5.3 [facility] Comment on above: Performed By: #### 4 5190 ####[facility] [address] [address] Wojciech Oneal M.D. [id number] CALCIUM IONIZED 4.2 mg/dL Low 4.5-5.3 [facility] Comment on above: Performed By: #### 4 5190 ####[facility] [address] [address] Wojciech Oneal M.D. [id number] CBCon 02-02-2025 AUTO NRBC 0.0 % Normal [facility] Comment on above: Performed By: #### 4 5218 ####[facility] [address] [address] Wojciech Oneal M.D. [id number] AUTO NRBC ABS COUNT 0.00 K/mcL Normal 0.00-0.00 [facility] Comment on above: Performed By: #### 4 5218 ####[facility] [address] [address] Wojciech Oneal M.D. [id number] Erythrocyte distribution width (RBC) [Ratio] 15.2 % High 11.6-14.8 [facility] Comment on above: Performed By: #### 4 5218 ####[facility] [address] [address] Wojciech Oneal M.D. [id number] Hematocrit (Bld) [Volume fraction] 24.1 % Low 41.0-53.0 [facility] Comment on above: Performed By: #### 4 5218 ####[facility] [address] [id number] Wojciech Oneal M.D. [id number] Hemoglobin (Bld) [Mass/Vol] 7.4 g/dL Low 13.5-17.5 [facility] Comment on above: Performed By: #### 4 5218 ####[facility] [address] [address] Wojciech Oneal M.D. [id number] MCH (RBC) [Entitic mass] 29.6 pg Normal 26.0-34.0 [facility] Comment on above: Performed By: #### 4 5218 ####[facility] [address] [id number] Wojciech Oneal M.D. [id number] MCV (RBC) [Entitic vol] 96.4 fL Normal 80.0-100.0 [facility] Comment on above: Performed By: #### 4 5218 ####[facility] [address] [id number] Wojciech Oneal M.D. [id number] MEAN CORPUSCULAR HEMOGLOBIN CONC 30.7 g/dL Low 31.0-37.0 [facility] Comment on above: Performed By: #### 4 5218 ####[facility] [address] [address] Wojciech Oneal M.D. [id number] Platelet mean volume (Bld) [Entitic vol] 8.9 fL Low 9.4-12.4 [facility] Comment on above: Performed By: #### 4 5218 ####[facility] [address] [address] Wojciech Oneal M.D. [id number] Platelets (Bld) [#/Vol] 350 10*3/uL Normal 150-400 [facility] Comment on above: Performed By: #### 4 5218 ####[facility] [address] [address] Wojciech Oneal M.D. [id number] RBC (Bld) [#/Vol] 2.50 10*6/uL Low 4.50-5.90 [facility] Comment on above: Performed By: #### 4 5218 ####[facility] [address] [id number] Wojciech Oneal M.D. [id number] WBC (Bld) [#/Vol] 13.04 10*3/uL High 4.50-11.00 [facility] Comment on above: Performed By: #### 4 5218 ####[facility] [address] [address] Wojciech Oneal M.D. [id number] MAGNESIUM LEVELon 02-02-2025 Magnesium [Mass/Vol] 2.2 mg/dL Normal 1.6-2.4 [facility] Comment on above: Performed By: #### 4 6109 ####[facility] [address] [address] Wojciech Oneal M.D. [id number] Magnesium [Mass/Vol] 1.9 mg/dL Normal 1.6-2.4 [facility] Comment on above: Performed By: #### 4 6109 ####[facility] [address] [address] Wojciech Oneal M.D. [id number] PHOSPHORUSon 02-02-2025 Phosphate [Mass/Vol] 2.6 mg/dL Normal 2.3-3.7 [facility] Comment on above: Performed By: #### 4 6299 ####[facility] [address] [address] Wojciech Oneal M.D. [id number] POC GLUCOSE - [facility] 025 Glucose [Mass/Vol] 120 mg/dL [address] Comment on above: Performed By: #### 4 6932 ####[facility] [address] [address] [id number] [facility] Glucose [Mass/Vol] 118 mg/dL [address] Comment on above: Performed By: #### 4 6932 ####[facility] [address] [address] [id number] [facility] Glucose [Mass/Vol] 136 mg/dL [address] Comment on above: Performed By: #### 4 6932 ####[facility] [address] [address] [id number] [facility] Glucose [Mass/Vol] 138 mg/dL [address] Comment on above: Performed By: #### 4 6932 ####[facility] [address] [address] [id number] [facility] POTASSIUM LEVELon 02-02-2025 Potassium [Moles/Vol] 3.2 mmol/L Low 3.5-5.1 [facility] Comment on above: Performed By: #### 4 6351 ####[facility] [address], [place] [address] Wojciech Oneal M.D. [id number] XR ABDOMEN /KUB/FLAT PLATE/1 VIEWon 02-02-2025 XR ABDOMEN /KUB/FLAT PLATE/1 [facility] Comment on above: Order Comment: Injur y/Trauma or Illness?:Illness/OtherHow long have you had these symptoms (acute/chronic)?:AcuteReason for exam?:Abdominal distention s/p decompressive colonoscopyHistory of cancer?:unkSurgeries, chemotherapy, or radiation?:unkType of Exam?:InitialAdditional signs and symptoms?:unk BASIC METABOLIC PANELon 01-13 Anion gap [Moles/Vol] 13 mmol/L Normal 10-20 [facility] Comment on above: Order Comment: [facility] has implemented the eGFR calculation approach that does not have a coefficient for race that conforms to the NKF-ASN Task Force Recommendations. Performed By: #### 4 6124 ####[facility] [address], [place] [address] Wojciech Oneal M.D. [id number] Calcium [Mass/Vol] 7.1 mg/dL Low 8.4-10.2 [facility] Comment on above: Order Comment: [facility] has implemented the eGFR calculation approach that does not have a coefficient for race that conforms to the NKF-ASN Task Force Recommendations. Performed By: #### 4 6124 ####[facility] [address], [place] [address] Wojciech Oneal M.D. [id number] Chloride [Moles/Vol] 114 mmol/L High 98-108 [facility] Comment on above: Order Comment: [facility] has implemented the eGFR calculation approach that does not have a coefficient for race that conforms to the NKF-ASN Task Force Recommendations. Performed By: #### 4 6124 ####[facility] [address], [place] [address] Wojciech Oneal M.D. [id number] Creatinine [Mass/Vol] 0.87 mg/dL Normal 0.80-1.30 [facility] Comment on above: Order Comment: [facility] has implemented the eGFR calculation approach that does not have a coefficient for race that conforms to the NKF-ASN Task Force Recommendations. Performed By: #### 4 6124 ####[facility] [address] [id number] Wojciech Oneal M.D. [id number] EGFR 92 mL/min/1.73 m2 Normal >=60 [facility] Comment on above: Order Comment: [facility] has implemented the eGFR calculation approach that does not have a coefficient for race that conforms to the NKF-ASN Task Force Recommendations. Result Comment: [place] mated GFR was calculated using the 2020 CKD-EPI creatinine equation. Performed By: #### 4 6124 ####[facility] [address] [id number] Wojciech Oneal M.D. [id number] Glucose [Mass/Vol] 108 mg/dL High 65-99 [facility] Comment on above: Order Comment: [facility] has implemented the eGFR calculation approach that does not have a coefficient for race that conforms to the NKF-ASN Task Force Recommendations. Performed By: #### 4 6124 ####[facility] [address] [id number] Wojciech Oneal M.D. [id number] HCO3 (Bld) [Moles/Vol] 22 mmol/L Normal 21-32 [facility] Comment on above: Order Comment: [facility] has implemented the eGFR calculation approach that does not have a coefficient for race that conforms to the NKF-ASN Task Force Recommendations. Performed By: #### 4 6124 ####[facility] [address] [id number] Wojciech Oneal M.D. [id number] Potassium [Moles/Vol] 2.9 mmol/L Low 3.5-5.1 [facility] Comment on above: Order Comment: [facility] has implemented the eGFR calculation approach that does not have a coefficient for race that conforms to the NKF-ASN Task Force Recommendations. Performed By: #### 4 6124 ####[facility] [address] [id number] Wojciech Oneal M.D. [id number] Sodium [Moles/Vol] 146 mmol/L High 135-145 [facility] Comment on above: Order Comment: [facility] has implemented the eGFR calculation approach that does not have a coefficient for race that conforms to the NKF-ASN Task Force Recommendations. Performed By: #### 4 6124 ####[facility] [address], [place] [address] Wojciech Oneal M.D. [id number] Urea nitrogen [Mass/Vol] 12 mg/dL Normal 8-25 [facility] Comment on above: Order Comment: [facility] has implemented the eGFR calculation approach that does not have a coefficient for race that conforms to the NKF-ASN Task Force Recommendations. Performed By: #### 4 6124 ####[facility] [address] [id number] Wojciech Oneal M.D. [id number] Urea nitrogen/Creatinine [Mass ratio] 13.8 mg/mg Normal 10.0-20.0 [facility] Comment on above: Order Comment: [facility] has implemented the eGFR calculation approach that does not have a coefficient for race that conforms to the NKF-ASN Task Force Recommendations. Performed By: #### 4 6124 ####[facility] [address] [id number] Wojciech Oneal M.D. [id number] CALCIUM, IONIZEDon 5 CALCIUM IONIZED 4.2 mg/dL Low 4.5-5.3 [facility] Comment on above: Performed By: #### 4 5190 ####[facility] [address] [id number] Wojciech Oneal M.D. [id number] CBCon 02-01-2025 AUTO NRBC 0.0 % Normal [facility] Comment on above: Performed By: #### 4 5218 ####[facility] [address], [place] [address] Wojciech Oneal M.D. [id number] AUTO NRBC ABS COUNT 0.00 K/mcL Normal 0.00-0.00 [facility] Comment on above: Performed By: #### 4 5218 ####[facility] [address] [address] Wojciech Oneal M.D. [id number] Erythrocyte distribution width (RBC) [Ratio] 14.9 % High 11.6-14.8 [facility] Comment on above: Performed By: #### 4 5218 ####[facility] [address] [address] Wojciech Oneal M.D. [id number] Hematocrit (Bld) [Volume fraction] 23.6 % Low 41.0-53.0 [facility] Comment on above: Performed By: #### 4 5218 ####[facility] [address] [address] Wojciech Oneal M.D. [id number] Hemoglobin (Bld) [Mass/Vol] 7.5 g/dL Low 13.5-17.5 [facility] Comment on above: Performed By: #### 4 5218 ####[facility] [address] [address] Wojciech Oneal M.D. [id number] MCH (RBC) [Entitic mass] 29.8 pg Normal 26.0-34.0 [facility] Comment on above: Performed By: #### 4 5218 ####[facility] [address] [address] Wojciech Oneal M.D. [id number] MCV (RBC) [Entitic vol] 93.7 fL Normal 80.0-100.0 [facility] Comment on above: Performed By: #### 4 5218 ####[facility] [address] [address] Wojciech Oneal M.D. [id number] MEAN CORPUSCULAR HEMOGLOBIN CONC 31.8 g/dL Normal 31.0-37.0 [facility] Comment on above: Performed By: #### 4 5218 ####[facility] [address] [address] Wojciech Oneal M.D. [id number] Platelet mean volume (Bld) [Entitic vol] 9.1 fL Low 9.4-12.4 [facility] Comment on above: Performed By: #### 4 5218 ####[facility] [address], [place] [address] Wojciech Oneal M.D. [id number] Platelets (Bld) [#/Vol] 330 10*3/uL Normal 150-400 [facility] Comment on above: Performed By: #### 4 5218 ####[facility] [address], [place] [address] Wojciech Oneal M.D. [id number] RBC (Bld) [#/Vol] 2.52 10*6/uL Low 4.50-5.90 [facility] Comment on above: Performed By: #### 4 5218 ####[facility] [address] [id number] Wojciech Oneal M.D. [id number] WBC (Bld) [#/Vol] 16.02 10*3/uL High 4.50-11.00 [facility] Comment on above: Performed By: #### 4 5218 ####[facility] [address] [id number] Wojciech Oneal M.D. [id number] MAGNESIUM LEVELon 02-01-2025 Magnesium [Mass/Vol] 2.3 mg/dL Normal 1.6-2.4 [facility] Comment on above: Performed By: #### 4 6109 ####[facility] [address] [id number] Wojciech Oneal M.D. [id number] Magnesium [Mass/Vol] 2.1 mg/dL Normal 1.6-2.4 [facility] Comment on above: Performed By: #### 4 6109 ####[facility] [address] [id number] Wojciech Oneal M.D. [id number] PHOSPHORUSon 02-01-2025 Phosphate [Mass/Vol] 2.4 mg/dL Normal 2.3-3.7 [facility] Comment on above: Performed By: #### 4 6299 ####[facility] [address] [id number] Wojciech Oneal M.D. [id number] POTASSIUM LEVELon 02-01-2025 Potassium [Moles/Vol] 3.2 mmol/L Low 3.5-5.1 [facility] Comment on above: Performed By: #### 4 6351 ####[facility] [address], [place] [address] Wojciech Oneal M.D. [id number] PREALBUMINon 02-01-2025 Prealbumin [Mass/Vol] 4.5 mg/dL Low 20.0-40.0 [facility] Comment on above: Performed By: #### 4 6355 ####[facility] [address], [place] [address] Wojciech Oneal M.D. [id number] XR ABDOMEN /KUB/FLAT PLATE/1 VIEWon 02-01-2025 XR ABDOMEN /KUB/FLAT PLATE/[address] [facility] Comment on above: Order Comment: Injur y/Trauma or Illness?:Illness/OtherHow long have you had these symptoms (acute/chronic)?:AcuteReason for exam?:colonic ileusHistory of cancer?:unkSurgeries, chemotherapy, or radiation?:unkType of Exam?:InitialAdditional signs and symptoms?:na BASIC METABOLIC PANELon 01-13 Anion gap [Moles/Vol] 14 mmol/L Normal 10-20 [facility] Comment on above: Order Comment: [facility] has implemented the eGFR calculation approach that does not have a coefficient for race that conforms to the NKF-ASN Task Force Recommendations. Performed By: #### 4 6124 ####[facility] [address], [place] [address] Wojciech Oneal M.D. [id number] Calcium [Mass/Vol] 7.3 mg/dL Low 8.4-10.2 [facility] Comment on above: Order Comment: [facility] has implemented the eGFR calculation approach that does not have a coefficient for race that conforms to the NKF-ASN Task Force Recommendations. Performed By: #### 4 6124 ####[facility] [address], [place] [address] Wojciech Oneal M.D. [id number] Chloride [Moles/Vol] 117 mmol/L High 98-108 [facility] Comment on above: Order Comment: [facility] has implemented the eGFR calculation approach that does not have a coefficient for race that conforms to the NKF-ASN Task Force Recommendations. Performed By: #### 4 6124 ####[facility] [address] [id number] Wojciech Oneal M.D. [id number] Creatinine [Mass/Vol] 0.92 mg/dL Normal 0.80-1.30 [facility] Comment on above: Order Comment: [facility] has implemented the eGFR calculation approach that does not have a coefficient for race that conforms to the NKF-ASN Task Force Recommendations. Performed By: #### 4 6124 ####[facility] [address] [id number] Wojciech Oneal M.D. [id number] EGFR 89 mL/min/1.73 m2 Normal >=60 [facility] Comment on above: Order Comment: [facility] has implemented the eGFR calculation approach that does not have a coefficient for race that conforms to the NKF-ASN Task Force Recommendations. Result Comment: [place] mated GFR was calculated using the 2020 CKD-EPI creatinine equation. Performed By: #### 4 6124 ####[facility] [address] [id number] Wojciech Oneal M.D. [id number] Glucose [Mass/Vol] 112 mg/dL High 65-99 [facility] Comment on above: Order Comment: [facility] has implemented the eGFR calculation approach that does not have a coefficient for race that conforms to the NKF-ASN Task Force Recommendations. Performed By: #### 4 6124 ####[facility] [address] [address] Wojciech Oneal M.D. [id number] HCO3 (Bld) [Moles/Vol] 21 mmol/L Normal 21-32 [facility] Comment on above: Order Comment: [facility] has implemented the eGFR calculation approach that does not have a coefficient for race that conforms to the NKF-ASN Task Force Recommendations. Performed By: #### 4 6124 ####[facility] [address] [id number] Wojciech Oneal M.D. [id number] Potassium [Moles/Vol] 3.4 mmol/L Low 3.5-5.1 [facility] Comment on above: Order Comment: [facility] has implemented the eGFR calculation approach that does not have a coefficient for race that conforms to the NKF-ASN Task Force Recommendations. Performed By: #### 4 6124 ####[facility] [address], [place] [address] Wojciech Oneal M.D. [id number] Sodium [Moles/Vol] 149 mmol/L High 135-145 [facility] Comment on above: Order Comment: [facility] has implemented the eGFR calculation approach that does not have a coefficient for race that conforms to the NKF-ASN Task Force Recommendations. Performed By: #### 4 6124 ####[facility] [address] [address] Wojciech Oneal M.D. [id number] Urea nitrogen [Mass/Vol] 16 mg/dL Normal 8-25 [facility] Comment on above: Order Comment: [facility] has implemented the eGFR calculation approach that does not have a coefficient for race that conforms to the NKF-ASN Task Force Recommendations. Performed By: #### 4 6124 ####[facility] [address] [id number] Wojciech Oneal M.D. [id number] Urea nitrogen/Creatinine [Mass ratio] 17.4 mg/mg Normal 10.0-20.0 [facility] Comment on above: Order Comment: [facility] has implemented the eGFR calculation approach that does not have a coefficient for race that conforms to the NKF-ASN Task Force Recommendations. Performed By: #### 4 6124 ####[facility] [address], [place] [address] Wojciech Oneal M.D. [id number] CALCIUM, IONIZEDon CALCIUM IONIZED 4.5 mg/dL Normal 4.5-5.3 [facility] Comment on above: Performed By: #### 4 5190 ####[facility] [address], [place] [address] Wojciech Oneal M.D. [id number] CBCon 01-31-2025 AUTO NRBC 0.0 % Normal [facility] Comment on above: Performed By: #### 4 5218 ####[facility] [address] [address] Wojciech Oneal M.D. [id number] AUTO NRBC ABS COUNT 0.00 K/mcL Normal 0.00-0.00 [facility] Comment on above: Performed By: #### 4 5218 ####[facility] [address] [address] Wojciech Oneal M.D. [id number] Erythrocyte distribution width (RBC) [Ratio] 14.8 % Normal 11.6-14.8 [facility] Comment on above: Performed By: #### 4 5218 ####[facility] [address] [address] Wojciech Oneal M.D. [id number] Hematocrit (Bld) [Volume fraction] 25.1 % Low 41.0-53.0 [facility] Comment on above: Performed By: #### 4 5218 ####[facility] [address] [address] Wojciech Oneal M.D. [id number] Hemoglobin (Bld) [Mass/Vol] 7.8 g/dL Low 13.5-17.5 [facility] Comment on above: Performed By: #### 4 5218 ####[facility] [address] [address] Wojciech Oenal M.D. [id number] MCH (RBC) [Entitic mass] 29.2 pg Normal 26.0-34.0 [facility] Comment on above: Performed By: #### 4 5218 ####[facility] [address] [address] Wojciech Oneal M.D. [id number] MCV (RBC) [Entitic vol] 94.0 fL Normal 80.0-100.0 [facility] Comment on above: Performed By: #### 4 5218 ####[facility] [address] [address] Wojciech Oneal M.D. [id number] MEAN CORPUSCULAR HEMOGLOBIN CONC 31.1 g/dL Normal 31.0-37.0 [facility] Comment on above: Performed By: #### 4 5218 ####[facility] [address], [place] [address] Wojciech Onela M.D. [id number] Platelet mean volume (Bld) [Entitic vol] 8.9 fL Low 9.4-12.4 [facility] Comment on above: Performed By: #### 4 5218 ####[facility] [address] [place] [id number] Wojciech Oneal M.D. [id number] Platelets (Bld) [#/Vol] 338 10*3/uL Normal 150-400 [facility] Comment on above: Performed By: #### 4 5218 ####[facility] [address] [address] Wojciech Oneal M.D. [id number] RBC (Bld) [#/Vol] 2.67 10*6/uL Low 4.50-5.90 [facility] Comment on above: Performed By: #### 4 5218 ####[facility] [address] [address] Wojciech Oneal M.D. [id number] WBC (Bld) [#/Vol] 15.38 10*3/uL High 4.50-11.00 [facility] Comment on above: Performed By: #### 4 5218 ####[facility] [address], [place] [address] Wojciech Oneal M.D. [id number] MAGNESIUM LEVELon 01-31-2025 Magnesium [Mass/Vol] 1.9 mg/dL Normal 1.6-2.4 [facility] Comment on above: Performed By: #### 4 6109 ####[facility] [address] [place] [id number] Wojciech Oneal M.D. [id number] PHOSPHORUSon 01-31-2025 Phosphate [Mass/Vol] 2.4 mg/dL Normal 2.3-3.7 [facility] Comment on above: Performed By: #### 4 6299 ####[facility] [address] [place] [id number] Wojciech Oneal M.D. [id number] [facility] Glucose [Mass/Vol] 120 mg/dL [address] Comment on above: Performed By: #### 4 6932 ####[facility] [address] [place] [address] [id number] GMCPOC Glucose [Mass/Vol] 110 mg/dL [address] Comment on above: Performed By: #### 4 6932 ####[facility] [address] [place] [address] [id number] [facility] Glucose [Mass/Vol] 116 mg/dL [address] Comment on above: Performed By: #### 4 6932 ####[facility] [address] [place] [address] [id number] [facility] Glucose [Mass/Vol] 113 mg/dL [address] Comment on above: Performed By: #### 4 6932 ####[facility] [address] [place] [address] [id number] [facility]CP[facility] Glucose [Mass/Vol] 133 mg/dL [address] Comment on above: Performed By: #### 4 6932 ####[facility] [address] [place] [address] [id number] [facility] Glucose [Mass/Vol] 112 mg/dL [address] Comment on above: Performed By: #### 4 6932 ####[facility] [address] [place] [address] [id number] [facility] Glucose [Mass/Vol] 111 mg/dL [address] Comment on above: Performed By: #### 4 6932 ####[facility] [address] [address] [id number] [facility]CP[facility] POTASSIUM LEVELon 01-31-2025 Potassium [Moles/Vol] 3.1 mmol/L Low 3.5-5.1 [facility] Comment on above: Performed By: #### 4 6351 ####[facility] [address] [place] [address] Wojciech Oneal M.D. [id number] BASIC METABOLIC PANELon 01-12 Anion gap [Moles/Vol] 21 mmol/L High 10-20 [facility] Comment on above: Order Comment: [facility] has implemented the eGFR calculation approach that does not have a coefficient for race that conforms to the NKF-ASN Task Force Recommendations. Performed By: #### 4 6124 ####[facility] [address], [place] [address] Wojciech Oneal M.D. [id number] Calcium [Mass/Vol] 7.8 mg/dL Low 8.4-10.2 [facility] Comment on above: Order Comment: [facility] has implemented the eGFR calculation approach that does not have a coefficient for race that conforms to the NKF-ASN Task Force Recommendations. Performed By: #### 4 6124 ####[facility] [address], [place] [address] Wojciech Oneal M.D. [id number] Chloride [Moles/Vol] 108 mmol/L Normal 98-108 [facility] Comment on above: Order Comment: [facility] has implemented the eGFR calculation approach that does not have a coefficient for race that conforms to the NKF-ASN Task Force Recommendations. Performed By: #### 4 6124 ####[facility] [address], [place] [address] Wojciech Oneal M.D. [id number] Creatinine [Mass/Vol] 0.96 mg/dL Normal 0.80-1.30 [facility] Comment on above: Order Comment: [facility] has implemented the eGFR calculation approach that does not have a coefficient for race that conforms to the NKF-ASN Task Force Recommendations. Performed By: #### 4 6124 ####[facility] [address], [place] [address] Wojciech Oneal M.D. [id number] EGFR 85 mL/min/1.73 m2 Normal >=60 [facility] Comment on above: Order Comment: [facility] has implemented the eGFR calculation approach that does not have a coefficient for race that conforms to the NKF-ASN Task Force Recommendations. Result Comment: [place] mated GFR was calculated using the 2020 CKD-EPI creatinine equation. Performed By: #### 4 6124 ####[facility] [address] [place] [id number] Wojciech Oneal M.D. [id number] Glucose [Mass/Vol] 75 mg/dL Normal 65-99 [facility] Comment on above: Order Comment: [facility] has implemented the eGFR calculation approach that does not have a coefficient for race that conforms to the NKF-ASN Task Force Recommendations. Performed By: #### 4 6124 ####[facility] [address] [address] Wojciech Oneal M.D. [id number] HCO3 (Bld) [Moles/Vol] 19 mmol/L Low 21-32 [facility] Comment on above: Order Comment: [facility] has implemented the eGFR calculation approach that does not have a coefficient for race that conforms to the NKF-ASN Task Force Recommendations. Performed By: #### 4 6124 ####[facility] [address] [place] [id number] Wojciech Oneal M.D. [id number] Potassium [Moles/Vol] 3.2 mmol/L Low 3.5-5.1 [facility] Comment on above: Order Comment: [facility] has implemented the eGFR calculation approach that does not have a coefficient for race that conforms to the NKF-ASN Task Force Recommendations. Performed By: #### 4 6124 ####[facility] [address] [place] [address] Wojciech Oneal M.D. [id number] Sodium [Moles/Vol] 145 mmol/L Normal 135-145 [facility] Comment on above: Order Comment: [facility] has implemented the eGFR calculation approach that does not have a coefficient for race that conforms to the NKF-ASN Task Force Recommendations. Performed By: #### 4 6124 ####[facility] [address] [place] [id number] Wojciech Oneal M.D. [id number] Urea nitrogen [Mass/Vol] 19 mg/dL Normal 8-25 [facility] Comment on above: Order Comment: [facility] has implemented the eGFR calculation approach that does not have a coefficient for race that conforms to the NKF-ASN Task Force Recommendations. Performed By: #### 4 6124 ####[facility] [address] [id number] Wojciech Oneal M.D. [id number] Urea nitrogen/Creatinine [Mass ratio] 19.8 mg/mg Normal 10.0-20.0 [facility] Comment on above: Order Comment: [facility] has implemented the eGFR calculation approach that does not have a coefficient for race that conforms to the NKF-ASN Task Force Recommendations. Performed By: #### 4 6124 ####[facility] [address] [address] Wojciech Oneal M.D. [id number] CALCIUM, IONIZEDon CALCIUM IONIZED 4.5 mg/dL Normal 4.5-5.3 [facility] Comment on above: Performed By: #### 4 5190 ####[facility] [address] [address] Wojciech Oneal M.D. [id number] CBCon 01-30-2025 AUTO NRBC 0.0 % Normal [facility] Comment on above: Performed By: #### 4 5218 ####[facility] [address] [place] [id number] Wojciech Oneal M.D. [id number] AUTO NRBC ABS COUNT 0.00 K/mcL Normal 0.00-0.00 [facility] Comment on above: Performed By: #### 4 5218 ####[facility] [address] [place] [id number] Wojciech Oneal M.D. [id number] Erythrocyte distribution width (RBC) [Ratio] 14.9 % High 11.6-14.8 [facility] Comment on above: Performed By: #### 4 5218 ####[facility] [address] [place] [id number] Wojciech Oneal M.D. [id number] Hematocrit (Bld) [Volume fraction] 30.0 % Low 41.0-53.0 [facility] Comment on above: Performed By: #### 4 5218 ####[facility] [address] [address] Wojciech Oneal M.D. [id number] Hemoglobin (Bld) [Mass/Vol] 9.0 g/dL Low 13.5-17.5 [facility] Comment on above: Performed By: #### 4 5218 ####[facility] [address] [address] Wojciech Oneal M.D. [id number] MCH (RBC) [Entitic mass] 29.4 pg Normal 26.0-34.0 [facility] Comment on above: Performed By: #### 4 5218 ####[facility] [address] [address] Wojciech Oneal M.D. [id number] MCV (RBC) [Entitic vol] 98.0 fL Normal 80.0-100.0 [facility] Comment on above: Performed By: #### 4 5218 ####[facility] [address] [address] Wojciech Oneal M.D. [id number] MEAN CORPUSCULAR HEMOGLOBIN CONC 30.0 g/dL Low 31.0-37.0 [facility] Comment on above: Performed By: #### 4 5218 ####[facility] [address] [address] Wojciech Oneal M.D. [id number] Platelet mean volume (Bld) [Entitic vol] 9.0 fL Low 9.4-12.4 [facility] Comment on above: Performed By: #### 4 5218 ####[facility] [address] [address] Wojciech Oneal M.D. [id number] Platelets (Bld) [#/Vol] 398 10*3/uL Normal 150-400 [facility] Comment on above: Performed By: #### 4 5218 ####[facility] [address] [address] Wojciech Oneal M.D. [id number] RBC (Bld) [#/Vol] 3.06 10*6/uL Low 4.50-5.90 [facility] Comment on above: Performed By: #### 4 5218 ####[facility] [address] [address] Wojciech Oneal M.D. [id number] WBC (Bld) [#/Vol] 17.39 10*3/uL High 4.50-11.00 [facility] Comment on above: Performed By: #### 4 5218 ####[facility] [address] [address] Wojciech Oneal M.D. [id number] CONSULTon 01-30-2025 CONSULT [facility] MAGNESIUM LEVELon 01-30-2025 Magnesium [Mass/Vol] 2.2 mg/dL Normal 1.6-2.4 [facility] Comment on above: Performed By: #### 4 6109 ####[facility] [address] [address] Wojciech Oneal M.D. [id number] PHOSPHORUSon 01-30-2025 Phosphate [Mass/Vol] 2.8 mg/dL Normal 2.3-3.7 [facility] Comment on above: Performed By: #### 4 6299 ####[facility] [address] [address] Wojciech Oneal M.D. [id number] POC GLUCOSE - [facility] 025 Glucose [Mass/Vol] 101 mg/dL High [address] [place] [address] Comment on above: Performed By: #### 4 6932 ####[facility] [address] [address] [id number] GMCPOC Glucose [Mass/Vol] 81 mg/dL Normal [address] [place] [address] Comment on above: Performed By: #### 4 6932 ####[facility] [address] [address] [id number] [facility]CPOC Glucose [Mass/Vol] 95 mg/dL Normal [address] [place] [address] Comment on above: Performed By: #### 4 6932 ####[facility] [address] [address] [id number] GMCPOC Glucose [Mass/Vol] 89 mg/dL Normal [address] [place] [address] Comment on above: Performed By: #### 4 6932 ####[facility] [address] [address] [id number] [facility] XR ABDOMEN /KUB/FLAT PLATE/1 VIEWon 01-30-2025 XR ABDOMEN /KUB/FLAT PLATE/1 VIEW [facility] Comment on above: Order Comment: Injur y/Trauma or Illness?:Injury/TraumaHow long have you had these symptoms (acute/chronic)?:AcuteReason for exam?:OG/NG placementHistory of cancer?:unkSurgeries, chemotherapy, or radiation?:unkType of Exam?:Subsequent/Follow-upMechanism of injury?:OG/NG placement XR ABDOMEN /KUB/FLAT PLATE/1 VIEW [facility] Comment on above: Order Comment: Injur y/Trauma or Illness?:Illness/OtherHow long have you had these symptoms (acute/chronic)?:UnknownReason for exam?:tube inHistory of cancer?:unkSurgeries, chemotherapy, or radiation?:unkType of Exam?:UnknownAdditional signs and symptoms?:na XR ABDOMEN 2 VIEWSon 025 XR ABDOMEN 2 VIEWS [facility] Comment on above: Order Comment: Injur y/Trauma or Illness?:Illness/OtherHow long have you had these symptoms (acute/chronic)?:UnknownReason for exam?:IleusHistory of cancer?:unkSurgeries, chemotherapy, or radiation?:unkType of Exam?:UnknownAdditional signs and symptoms?:Ileus BASIC METABOLIC PANELon 01-12 Anion gap [Moles/Vol] 17 mmol/L Normal 10-20 [facility] Comment on above: Order Comment: [facility] has implemented the eGFR calculation approach that does not have a coefficient for race that conforms to the NKF-ASN Task Force Recommendations. Performed By: #### 4 6124 ####[facility] [address], [place] [address] Wojciech Oneal M.D. [id number] Calcium [Mass/Vol] 8.2 mg/dL Low 8.4-10.2 [facility] Comment on above: Order Comment: [facility] has implemented the eGFR calculation approach that does not have a coefficient for race that conforms to the NKF-ASN Task Force Recommendations. Performed By: #### 4 6124 ####[facility] [address], [place] [address] Wojciech Oneal M.D. [id number] Chloride [Moles/Vol] 112 mmol/L High 98-108 [facility] Comment on above: Order Comment: [facility] has implemented the eGFR calculation approach that does not have a coefficient for race that conforms to the NKF-ASN Task Force Recommendations. Performed By: #### 4 6124 ####[facility] [address] [address] Wojciech Oneal M.D. [id number] Creatinine [Mass/Vol] 1.01 mg/dL Normal 0.80-1.30 [facility] Comment on above: Order Comment: [facility] has implemented the eGFR calculation approach that does not have a coefficient for race that conforms to the NKF-ASN Task Force Recommendations. Performed By: #### 4 6124 ####[facility] [address] [id number] Wojciech Oneal M.D. [id number] EGFR 80 mL/min/1.73 m2 Normal >=60 [facility] Comment on above: Order Comment: [facility] has implemented the eGFR calculation approach that does not have a coefficient for race that conforms to the NKF-ASN Task Force Recommendations. Result Comment: [place] mated GFR was calculated using the 2020 CKD-EPI creatinine equation. Performed By: #### 4 6124 ####[facility] [address] [id number] Wojciech Oneal M.D. [id number] Glucose [Mass/Vol] 90 mg/dL Normal 65-99 [facility] Comment on above: Order Comment: [facility] has implemented the eGFR calculation approach that does not have a coefficient for race that conforms to the NKF-ASN Task Force Recommendations. Performed By: #### 4 6124 ####[facility] [address] [id number] Wojciech Oneal M.D. [id number] HCO3 (Bld) [Moles/Vol] 23 mmol/L Normal 21-32 [facility] Comment on above: Order Comment: [facility] has implemented the eGFR calculation approach that does not have a coefficient for race that conforms to the NKF-ASN Task Force Recommendations. Performed By: #### 4 6124 ####[facility] [address] [id number] Wojciech Oneal M.D. [id number] Potassium [Moles/Vol] 3.3 mmol/L Low 3.5-5.1 [facility] Comment on above: Order Comment: [facility] has implemented the eGFR calculation approach that does not have a coefficient for race that conforms to the NKF-ASN Task Force Recommendations. Performed By: #### 4 6124 ####[facility] [address], [place] [address] Wojciech Oneal M.D. [id number] Sodium [Moles/Vol] 149 mmol/L High 135-145 [facility] Comment on above: Order Comment: [facility] has implemented the eGFR calculation approach that does not have a coefficient for race that conforms to the NKF-ASN Task Force Recommendations. Performed By: #### 4 6124 ####[facility] [address] [id number] Wojciech Oneal M.D. [id number] Urea nitrogen [Mass/Vol] 18 mg/dL Normal 8-25 [facility] Comment on above: Order Comment: [facility] has implemented the eGFR calculation approach that does not have a coefficient for race that conforms to the NKF-ASN Task Force Recommendations. Performed By: #### 4 6124 ####[facility] [address] [id number] Wojciech Oneal M.D. [id number] Urea nitrogen/Creatinine [Mass ratio] 17.8 mg/mg Normal 10.0-20.0 [facility] Comment on above: Order Comment: [facility] has implemented the eGFR calculation approach that does not have a coefficient for race that conforms to the NKF-ASN Task Force Recommendations. Performed By: #### 4 6124 ####[facility] [address], [place] [address] Wojciech Oneal M.D. [id number] CALCIUM, IONIZEDon 5 CALCIUM IONIZED 4.6 mg/dL Normal 4.5-5.3 [facility] Comment on above: Performed By: #### 4 5190 ####[facility] [address] [address] Wojciech Oneal M.D. [id number] CBCon 01-29-2025 AUTO NRBC 0.0 % Normal [facility] Comment on above: Performed By: #### 4 5218 ####[facility] [address] [address] Wojciech Oneal M.D. [id number] AUTO NRBC ABS COUNT 0.00 K/mcL Normal 0.00-0.00 [facility] Comment on above: Performed By: #### 4 5218 ####[facility] [address] [address] Wojciech Oneal M.D. [id number] Erythrocyte distribution width (RBC) [Ratio] 14.6 % Normal 11.6-14.8 [facility] Comment on above: Performed By: #### 4 5218 ####[facility] [address] [address] Wojciech Oneal M.D. [id number] Hematocrit (Bld) [Volume fraction] 26.8 % Low 41.0-53.0 [facility] Comment on above: Performed By: #### 4 5218 ####[facility] [address] [address] Wojciech Oneal M.D. [id number] Hemoglobin (Bld) [Mass/Vol] 8.5 g/dL Low 13.5-17.5 [facility] Comment on above: Performed By: #### 4 5218 ####[facility] [address] [address] Wojciech Oneal M.D. [id number] MCH (RBC) [Entitic mass] 30.2 pg Normal 26.0-34.0 [facility] Comment on above: Performed By: #### 4 5218 ####[facility] [address] [address] Wojciech Oneal M.D. [id number] MCV (RBC) [Entitic vol] 95.4 fL Normal 80.0-100.0 [facility] Comment on above: Performed By: #### 4 5218 ####[facility] [address], [place] [address] Wojciech Oneal M.D. [id number] MEAN CORPUSCULAR HEMOGLOBIN CONC 31.7 g/dL Normal 31.0-37.0 [facility] Comment on above: Performed By: #### 4 5218 ####[facility] [address], [place] [address] Wojciech Oneal M.D. [id number] Platelet mean volume (Bld) [Entitic vol] 9.0 fL Low 9.4-12.4 [facility] Comment on above: Performed By: #### 4 5218 ####[facility] [address] [place] [id number] Wojciech Oneal M.D. [id number] Platelets (Bld) [#/Vol] 367 10*3/uL Normal 150-400 [facility] Comment on above: Performed By: #### 4 5218 ####[facility] [address] [id number] Wojciech Oneal M.D. [id number] RBC (Bld) [#/Vol] 2.81 10*6/uL Low 4.50-5.90 [facility] Comment on above: Performed By: #### 4 5218 ####[facility] [address] [id number] Wojciech Oneal M.D. [id number] WBC (Bld) [#/Vol] 18.10 10*3/uL High 4.50-11.00 [facility] Comment on above: Performed By: #### 4 5218 ####[facility] [address], [place] [address] Wojciech Oneal M.D. [id number] MAGNESIUM LEVELon 01-29-2025 Magnesium [Mass/Vol] 2.3 mg/dL Normal 1.6-2.4 [facility] [facility] Comment on above: Performed By: #### 4 6109 ####[facility] [address] [id number] Wojciech Oneal M.D. [id number] Magnesium [Mass/Vol] 2.2 mg/dL Normal 1.6-2.4 [facility] Comment on above: Performed By: #### 4 6109 ####[facility] [address] [address] Wojciech Oneal M.D. [id number] PHOSPHORUSon 01-29-2025 Phosphate [Mass/Vol] 2.5 mg/dL Normal 2.3-3.7 [facility] Comment on above: Performed By: #### 4 6299 ####[facility] [address] [address] Wojciech Oneal M.D. [id number] Phosphate [Mass/Vol] 2.2 mg/dL Low 2.3-3.7 [facility] Comment on above: Performed By: #### 4 6299 ####[facility] [address] [address] Wojciech Oneal M.D. [id number] POC GLUCOSE - [facility] 025 Glucose [Mass/Vol] 96 mg/dL Normal 65-99 [facility] Comment on above: Performed By: #### 4 6932 ####[facility] [address] [address] [id number] [facility] Glucose [Mass/Vol] 99 mg/dL Normal [address] [place] [address] Comment on above: Performed By: #### 4 6932 ####[facility] [address] [address] [id number] [facility] Glucose [Mass/Vol] 108 mg/dL High [address] [place] [address] Comment on above: Performed By: #### 4 6932 ####[facility] [address] [address] [id number] [facility] POTASSIUM LEVELon 01-29-2025 Potassium [Moles/Vol] 3.6 mmol/L Normal 3.5-5.1 [facility] Comment on above: Performed By: #### 4 6351 ####[facility] [address] [address] Wojciech Oneal M.D. [id number] XR ABDOMEN /KUB/FLAT PLATE/1 VIEWon 01-29-2025 XR ABDOMEN /KUB/FLAT PLATE/1 VIEW [facility] Comment on above: Order Comment: Injur y/Trauma or Illness?:Illness/OtherHow long have you had these symptoms (acute/chronic)?:AcuteReason for exam?:leusHistory of cancer?:unkSurgeries, chemotherapy, or radiation?:unkType of Exam?:InitialAdditional signs and symptoms?:history of hypertension, heart failure, lymphedema, presented on 01/22/2025 with necrotizing infection. [facility] consulted by Acute Care SurgEsther for medical management. BASIC METABOLIC PANELon 01-12 Anion gap [Moles/Vol] 15 mmol/L Normal 10-20 [facility] Comment on above: Order Comment: [facility] has implemented the eGFR calculation approach that does not have a coefficient for race that conforms to the NKF-ASN Task Force Recommendations. Performed By: #### 4 6124 ####[facility] [address] [address] Wojciech Oneal M.D. [id number] Calcium [Mass/Vol] 7.9 mg/dL Low 8.4-10.2 [facility] Comment on above: Order Comment: [facility] has implemented the eGFR calculation approach that does not have a coefficient for race that conforms to the NKF-ASN Task Force Recommendations. Performed By: #### 4 6124 ####[facility] [address] [id number] Wojciech Oneal M.D. [id number] Chloride [Moles/Vol] 111 mmol/L High 98-108 [facility] Comment on above: Order Comment: [facility] has implemented the eGFR calculation approach that does not have a coefficient for race that conforms to the NKF-ASN Task Force Recommendations. Performed By: #### 4 6130 ####[facility] [address] [id number] Wojciech Oneal M.D. [id number] Creatinine [Mass/Vol] 1.01 mg/dL Normal 0.80-1.30 [facility] Comment on above: Order Comment: [facility] has implemented the eGFR calculation approach that does not have a coefficient for race that conforms to the NKF-ASN Task Force Recommendations. Performed By: #### 4 6124 ####[facility] [address] [id number] Wojciech Oneal M.D. [id number] EGFR 80 mL/min/1.73 m2 Normal >=60 [facility] Comment on above: Order Comment: [facility] has implemented the eGFR calculation approach that does not have a coefficient for race that conforms to the NKF-ASN Task Force Recommendations. Result Comment: [place] mated GFR was calculated using the 2020 CKD-EPI creatinine equation. Performed By: #### 4 6124 ####[facility] [address] [id number] Wojciech Oneal M.D. [id number] Glucose [Mass/Vol] 106 mg/dL High 65-99 [facility] Comment on above: Order Comment: [facility] has implemented the eGFR calculation approach that does not have a coefficient for race that conforms to the NKF-ASN Task Force Recommendations. Performed By: #### 4 6124 ####[facility] [address] [id number] Wojciech Oneal M.D. [id number] HCO3 (Bld) [Moles/Vol] 25 mmol/L Normal 21-32 [facility] Comment on above: Order Comment: [facility] has implemented the eGFR calculation approach that does not have a coefficient for race that conforms to the NKF-ASN Task Force Recommendations. Performed By: #### 4 6124 ####[facility] [address], [place] [address] Wojciech Oneal M.D. [id number] Potassium [Moles/Vol] 3.8 mmol/L Normal 3.5-5.1 [facility] Comment on above: Order Comment: [facility] has implemented the eGFR calculation approach that does not have a coefficient for race that conforms to the NKF-ASN Task Force Recommendations. Performed By: #### 4 6124 ####[facility] [address], [place] [address] Wojceich Oneal M.D. [id number] Sodium [Moles/Vol] 147 mmol/L High 135-145 [facility] Comment on above: Order Comment: [facility] has implemented the eGFR calculation approach that does not have a coefficient for race that conforms to the NKF-ASN Task Force Recommendations. Performed By: #### 4 6124 ####[facility] [address], [place] [address] Wojciech Oneal M.D. [id number] Urea nitrogen [Mass/Vol] 17 mg/dL Normal 8-25 [facility] Comment on above: Order Comment: [facility] has implemented the eGFR calculation approach that does not have a coefficient for race that conforms to the NKF-ASN Task Force Recommendations. Performed By: #### 4 6124 ####[facility] [address] [id number] Wojciech Oneal M.D. [id number] Urea nitrogen/Creatinine [Mass ratio] 16.8 mg/mg Normal 10.0-20.0 [facility] Comment on above: Order Comment: [facility] has implemented the eGFR calculation approach that does not have a coefficient for race that conforms to the NKF-ASN Task Force Recommendations. Performed By: #### 4 6124 ####[facility] [address] [id number] Wojciech Oneal M.D. [id number] CALCIUM, IONIZEDon 5 CALCIUM IONIZED 4.5 mg/dL Normal 4.5-5.3 [facility] Comment on above: Performed By: #### 4 5190 ####[facility] [address], [place] [address] Wojciech Oneal M.D. [id number] CBCon 01-28-2025 AUTO NRBC 0.0 % Normal [facility] Comment on above: Performed By: #### 4 5218 ####[facility] [address], [place] [address] Wojciech Oneal M.D. [id number] AUTO NRBC ABS COUNT 0.00 K/mcL Normal 0.00-0.00 [facility] Comment on above: Performed By: #### 4 5218 ####[facility] [address], [place] [address] Wojciech Oneal M.D. [id number] Erythrocyte distribution width (RBC) [Ratio] 14.1 % Normal 11.6-14.8 [facility] Comment on above: Performed By: #### 4 5218 ####[facility] [address] [address] Wojciech Oneal M.D. [id number] Hematocrit (Bld) [Volume fraction] 23.0 % Low 41.0-53.0 [facility] Comment on above: Performed By: #### 4 5218 ####[facility] [address] [address] Wojciech Oneal M.D. [id number] Hemoglobin (Bld) [Mass/Vol] 7.1 g/dL Low 13.5-17.5 [facility] Comment on above: Performed By: #### 4 5218 ####[facility] [address] [address] Wojciech Oneal M.D. [id number] MCH (RBC) [Entitic mass] 29.6 pg Normal 26.0-34.0 [facility] Comment on above: Performed By: #### 4 5218 ####[facility] [address] [address] Wojciech Oneal M.D. [id number] MCV (RBC) [Entitic vol] 95.8 fL Normal 80.0-100.0 [facility] Comment on above: Performed By: #### 4 5218 ####[facility] [address] [address] Wojciech Oneal M.D. [id number] MEAN CORPUSCULAR HEMOGLOBIN CONC 30.9 g/dL Low 31.0-37.0 [facility] Comment on above: Performed By: #### 4 5218 ####[facility] [address] [address] Wojciech Oneal M.D. [id number] Platelet mean volume (Bld) [Entitic vol] 9.0 fL Low 9.4-12.4 [facility] Comment on above: Performed By: #### 4 5218 ####[facility] [address] [address] Wojciech Oneal M.D. [id number] Platelets (Bld) [#/Vol] 361 10*3/uL Normal 150-400 [facility] Comment on above: Performed By: #### 4 5218 ####[facility] [address], [place] [address] Wojciech Oneal M.D. [id number] RBC (Bld) [#/Vol] 2.40 10*6/uL Low 4.50-5.90 [facility] Comment on above: Performed By: #### 4 5218 ####[facility] [address] [id number] Wojciech Oneal M.D. [id number] WBC (Bld) [#/Vol] 22.11 10*3/uL High 4.50-11.00 [facility] Comment on above: Performed By: #### 4 5218 ####[facility] [address], [place] [address] Wojciech Oneal M.D. [id number] CT ABDOMEN PELVIS WITH IV CO NTRAST ONLYon 01-28-2025 CT ABDOMEN PELVIS WITH IV CONTRAST ONLY Normal [facility] Comment on above: Order Comment: Injur y/Trauma or Illness?:Illness/OtherHow long have you had these symptoms (acute/chronic)?:AcuteReason for exam?:Abdominal pain, post-op, Bowel obstruction suspectedType of Exam?:Subsequent/Follow-upAdditional signs and symptoms?:Abdominal pain, post-op, Bowel obstruction suspected MAGNESIUM LEVELon 01-28-2025 Magnesium [Mass/Vol] 2.2 mg/dL Normal 1.6-2.4 [facility] Comment on above: Performed By: #### 4 6109 ####[facility] [address] [id number] Wojciech Oneal M.D. [id number] PHOSPHORUSon 01-28-2025 Phosphate [Mass/Vol] 2.4 mg/dL Normal 2.3-3.7 [facility] Comment on above: Performed By: #### 4 6299 ####[facility] [address], [place] [address] Wojciech Oneal M.D. [id number] [facility] Glucose [Mass/Vol] 104 mg/dL High 65-99 [facility] Comment on above: Performed By: #### 4 6932 ####[facility] [address] [address] [id number] [facility] Glucose [Mass/Vol] 91 mg/dL Normal 65- [facility] Comment on above: Performed By: #### 4 6932 ####[facility] [address] [address] [id number] [facility] Glucose [Mass/Vol] 91 mg/dL Normal 65- [facility] Comment on above: Performed By: #### 4 6932 ####[facility] [address] [address] [id number] [facility] Glucose [Mass/Vol] 100 mg/dL High - [facility] Comment on above: Performed By: #### 4 6932 ####[facility] [address] [address] [id number] [facility] XR ABDOMEN /KUB/FLAT PLATE/1 VIEWon 01-28-2025 XR ABDOMEN /KUB/FLAT PLATE/[address] [facility] Comment on above: Order Comment: Injur y/Trauma or Illness?:Illness/OtherHow long have you had these symptoms (acute/chronic)?:AcuteReason for exam?:abdominal distentionHistory of cancer?:unkSurgeries, chemotherapy, or radiation?:unkType of Exam?:InitialAdditional signs and symptoms?:n/a BASIC METABOLIC PANELon 01-12 Anion gap [Moles/Vol] 14 mmol/L Normal 10-20 [facility] Comment on above: Order Comment: [facility] has implemented the eGFR calculation approach that does not have a coefficient for race that conforms to the NKF-ASN Task Force Recommendations. Performed By: #### 4 6124 ####[facility] [address] [address] Wojciech Oneal M.D. [id number] Calcium [Mass/Vol] 7.8 mg/dL Low 8.4-10.2 [facility] Comment on above: Order Comment: [facility] has implemented the eGFR calculation approach that does not have a coefficient for race that conforms to the NKF-ASN Task Force Recommendations. Performed By: #### 4 6124 ####[facility] [address], [place] [address] Wojciech Oneal M.D. [id number] Chloride [Moles/Vol] 107 mmol/L Normal 98-108 [facility] Comment on above: Order Comment: [facility] has implemented the eGFR calculation approach that does not have a coefficient for race that conforms to the NKF-ASN Task Force Recommendations. Performed By: #### 4 6124 ####[facility] [address] [address] Wojciech Oneal M.D. [id number] Creatinine [Mass/Vol] 0.94 mg/dL Normal 0.80-1.30 [facility] Comment on above: Order Comment: [facility] has implemented the eGFR calculation approach that does not have a coefficient for race that conforms to the NKF-ASN Task Force Recommendations. Performed By: #### 4 6124 ####[facility] [address] [id number] Wojciech Oneal M.D. [id number] EGFR 87 mL/min/1.73 m2 Normal >=60 [facility] Comment on above: Order Comment: [facility] has implemented the eGFR calculation approach that does not have a coefficient for race that conforms to the NKF-ASN Task Force Recommendations. Result Comment: [place] mated GFR was calculated using the 2020 CKD-EPI creatinine equation. Performed By: #### 4 6124 ####[facility] [address] [id number] Wojciech Oneal M.D. [id number] Glucose [Mass/Vol] 105 mg/dL High 65-99 [facility] Comment on above: Order Comment: [facility] has implemented the eGFR calculation approach that does not have a coefficient for race that conforms to the NKF-ASN Task Force Recommendations. Performed By: #### 4 6124 ####[facility] [address], [place] [address] Wojciech Oneal M.D. [id number] HCO3 (Bld) [Moles/Vol] 23 mmol/L Normal 21-32 [facility] Comment on above: Order Comment: [facility] has implemented the eGFR calculation approach that does not have a coefficient for race that conforms to the NKF-ASN Task Force Recommendations. Performed By: #### 4 6124 ####[facility] [address] [id number] Wojciech Oneal M.D. [id number] Potassium [Moles/Vol] 4.0 mmol/L Normal 3.5-5.1 [facility] Comment on above: Order Comment: [facility] has implemented the eGFR calculation approach that does not have a coefficient for race that conforms to the NKF-ASN Task Force Recommendations. Performed By: #### 4 6124 ####[facility] [address] [id number] Wojciech Oneal M.D. [id number] Sodium [Moles/Vol] 140 mmol/L Normal 135-145 [facility] Comment on above: Order Comment: [facility] has implemented the eGFR calculation approach that does not have a coefficient for race that conforms to the NKF-ASN Task Force Recommendations. Performed By: #### 4 6124 ####[facility] [address] [address] Wojciech Oneal M.D. [id number] Urea nitrogen [Mass/Vol] 19 mg/dL Normal 8-25 [facility] Comment on above: Order Comment: [facility] has implemented the eGFR calculation approach that does not have a coefficient for race that conforms to the NKF-ASN Task Force Recommendations. Performed By: #### 4 6124 ####[facility] [address] [id number] Wojciech Oneal M.D. [id number] Urea nitrogen/Creatinine [Mass ratio] 20.2 mg/mg High 10.0-20.0 [facility] Comment on above: Order Comment: [facility] has implemented the eGFR calculation approach that does not have a coefficient for race that conforms to the NKF-ASN Task Force Recommendations. Performed By: #### 4 6124 ####[facility] [address] [id number] Wojciech Oneal M.D. [id number] CALCIUM, IONIZEDon 09-16-202 5 CALCIUM IONIZED 4.5 mg/dL Normal 4.5-5.3 [facility] Comment on above: Performed By: #### 4 5190 ####[facility] [address] [address] Wojciech Oneal M.D. [id number] CBCon 01-27-2025 AUTO NRBC 0.1 % Normal [facility] Comment on above: Performed By: #### 4 5218 ####[facility] [address] [address] Wojciech Oneal M.D. [id number] AUTO NRBC ABS COUNT 0.02 K/mcL High 0.00-0.00 [facility] Comment on above: Performed By: #### 4 5218 ####[facility] [address] [address] Wojciech Oneal M.D. [id number] Erythrocyte distribution width (RBC) [Ratio] 14.0 % Normal 11.6-14.8 [facility] Comment on above: Performed By: #### 4 5218 ####[facility] [address] [address] Wojciech Oneal M.D. [id number] Hematocrit (Bld) [Volume fraction] 27.8 % Low 41.0-53.0 [facility] Comment on above: Performed By: #### 4 5218 ####[facility] [address] [address] Wojciech Oneal M.D. [id number] Hemoglobin (Bld) [Mass/Vol] 8.8 g/dL Low 13.5-17.5 [facility] Comment on above: Performed By: #### 4 5218 ####[facility] [address] [address] Wojciech Oneal M.D. [id number] MCH (RBC) [Entitic mass] 29.3 pg Normal 26.0-34.0 [facility] Comment on above: Performed By: #### 4 5218 ####[facility] [address] [address] Wojciech Oneal M.D. [id number] MCV (RBC) [Entitic vol] 92.7 fL Normal 80.0-100.0 [facility] Comment on above: Performed By: #### 4 5218 ####[facility] [address] [id number] Wojciech Oneal M.D. [id number] MEAN CORPUSCULAR HEMOGLOBIN CONC 31.7 g/dL Normal 31.0-37.0 [facility] Comment on above: Performed By: #### 4 5218 ####[facility] [address] [address] Wojciech Oneal M.D. [id number] Platelet mean volume (Bld) [Entitic vol] 9.0 fL Low 9.4-12.4 [facility] Comment on above: Performed By: #### 4 5218 ####[facility] [address] [id number] Wojciech Oneal M.D. [id number] Platelets (Bld) [#/Vol] 317 10*3/uL Normal 150-400 [facility] Comment on above: Performed By: #### 4 5218 ####[facility] [address] [address] Wojciech Oneal M.D. [id number] RBC (Bld) [#/Vol] 3.00 10*6/uL Low 4.50-5.90 [facility] Comment on above: Performed By: #### 4 5218 ####[facility] [address] [id number] Wojciech Oneal M.D. [id number] WBC (Bld) [#/Vol] 20.82 10*3/uL High 4.50-11.00 [facility] Comment on above: Performed By: #### 4 5218 ####[facility] [address] [id number] Wojciech Oneal M.D. [id number] CONSULTon 01-27-2025 CONSULT [facility] MAGNESIUM LEVELon 01-27-2025 Magnesium [Mass/Vol] 2.2 mg/dL Normal 1.6-2.4 [facility] Comment on above: Performed By: #### 4 6109 ####[facility] [address] [address] Wojciech Oneal M.D. [id number] PHOSPHORUSon 01-27-2025 Phosphate [Mass/Vol] 2.3 mg/dL Normal 2.3-3.7 [facility] Comment on above: Performed By: #### 4 6299 ####[facility] [address] [address] Wojciech Oneal M.D. [id number] POC GLUCOSE - [facility] 025 Glucose [Mass/Vol] 86 mg/dL Normal [address] [place] [address] Comment on above: Performed By: #### 4 6932 ####[facility] [address] [address] [id number] [facility] Glucose [Mass/Vol] 100 mg/dL [address] Comment on above: Performed By: #### 4 6932 ####[facility] [address] [place] [address] [id number] [facility] Glucose [Mass/Vol] 97 mg/dL Normal [address] [place] [address] Comment on above: Performed By: #### 4 6932 ####[facility] [address] [place] [address] [id number] [facility] Glucose [Mass/Vol] 111 mg/dL High [address] [place] [address] Comment on above: Performed By: #### 4 6932 ####[facility] [address] [address] [id number] [facility] Glucose [Mass/Vol] 98 mg/dL Normal [address] [place] [address] Comment on above: Performed By: #### 4 6932 ####[facility] [address] [address] [id number] [facility] XR ABDOMEN /KUB/FLAT PLATE/1 VIEWon 01-27-2025 XR ABDOMEN /KUB/FLAT PLATE/1 VIEW [facility] Comment on above: Order Comment: Injur y/Trauma or Illness?:Illness/OtherHow long have you had these symptoms (acute/chronic)?:AcuteReason for exam?:Abdominal distentionHistory of cancer?:unkSurgeries, chemotherapy, or radiation?:unkType of Exam?:InitialAdditional signs and symptoms?:Abdominal distention BASIC METABOLIC PANELon 01-12 Anion gap [Moles/Vol] 14 mmol/L Normal 10-20 [facility] Comment on above: Order Comment: [facility] has implemented the eGFR calculation approach that does not have a coefficient for race that conforms to the NKF-ASN Task Force Recommendations. Performed By: #### 4 6124 ####[facility] [address] [id number] Wojciech Oneal M.D. [id number] Calcium [Mass/Vol] 7.6 mg/dL Low 8.4-10.2 [facility] Comment on above: Order Comment: [facility] has implemented the eGFR calculation approach that does not have a coefficient for race that conforms to the NKF-ASN Task Force Recommendations. Performed By: #### 4 6124 ####[facility] [address] [id number] Wojciech Oneal M.D. [id number] Chloride [Moles/Vol] 108 mmol/L Normal 98-108 [facility] Comment on above: Order Comment: [facility] has implemented the eGFR calculation approach that does not have a coefficient for race that conforms to the NKF-ASN Task Force Recommendations. Performed By: #### 4 6124 ####[facility] [address] [id number] Wojciech Oneal M.D. [id number] Creatinine [Mass/Vol] 1.03 mg/dL Normal 0.80-1.30 [facility] Comment on above: Order Comment: [facility] has implemented the eGFR calculation approach that does not have a coefficient for race that conforms to the NKF-ASN Task Force Recommendations. Performed By: #### 4 6124 ####[facility] [address] [id number] Wojciech Oneal M.D. [id number] EGFR 78 mL/min/1.73 m2 Normal >=60 [facility] Comment on above: Order Comment: [facility] has implemented the eGFR calculation approach that does not have a coefficient for race that conforms to the NKF-ASN Task Force Recommendations. Result Comment: Chelsea mated GFR was calculated using the 2020 CKD-EPI creatinine equation. Performed By: #### 4 6124 ####[facility] [address] [id number] Wojciech Oneal M.D. [id number] Glucose [Mass/Vol] 113 mg/dL High 65-99 [facility] Comment on above: Order Comment: [facility] has implemented the eGFR calculation approach that does not have a coefficient for race that conforms to the NKF-ASN Task Force Recommendations. Performed By: #### 4 6124 ####[facility] [address] [address] Wojciech Oneal M.D. [id number] HCO3 (Bld) [Moles/Vol] 23 mmol/L Normal 21-32 [facility] Comment on above: Order Comment: [facility] has implemented the eGFR calculation approach that does not have a coefficient for race that conforms to the NKF-ASN Task Force Recommendations. Performed By: #### 4 6124 ####[facility] [address] [id number] Wojciech Oneal M.D. [id number] Potassium [Moles/Vol] 4.1 mmol/L Normal 3.5-5.1 [facility] Comment on above: Order Comment: [facility] has implemented the eGFR calculation approach that does not have a coefficient for race that conforms to the NKF-ASN Task Force Recommendations. Performed By: #### 4 6124 ####[facility] [address] [id number] Wojciech Oneal M.D. [id number] Sodium [Moles/Vol] 141 mmol/L Normal 135-145 [facility] Comment on above: Order Comment: [facility] has implemented the eGFR calculation approach that does not have a coefficient for race that conforms to the NKF-ASN Task Force Recommendations. Performed By: #### 4 6124 ####[facility] [address] [id number] Wojciech Oneal M.D. [id number] Urea nitrogen [Mass/Vol] 25 mg/dL Normal 8-25 [facility] Comment on above: Order Comment: [facility] has implemented the eGFR calculation approach that does not have a coefficient for race that conforms to the NKF-ASN Task Force Recommendations. Performed By: #### 4 6124 ####[facility] [address] [id number] Wojciech Oneal M.D. [id number] Urea nitrogen/Creatinine [Mass ratio] 24.3 mg/mg High 10.0-20.0 [facility] Comment on above: Order Comment: [facility] has implemented the eGFR calculation approach that does not have a coefficient for race that conforms to the NKF-ASN Task Force Recommendations. Performed By: #### 4 6124 ####[facility] [address] [id number] Wojciech Oneal M.D. [id number] CALCIUM, IONIZEDon CALCIUM IONIZED 4.4 mg/dL Low 4.5-5.3 [facility] Comment on above: Performed By: #### 4 5190 ####[facility] [address] [id number] Wojciech Oneal M.D. [id number] CBCon 01-26-2025 AUTO NRBC 0.0 % Normal [facility] Comment on above: Performed By: #### 4 5218 ####[facility] [address] [id number] Wojciech Oneal M.D. [id number] AUTO NRBC ABS COUNT 0.00 K/mcL Normal 0.00-0.00 [facility] Comment on above: Performed By: #### 4 5218 ####[facility] [address] [id number] Wojciech Oneal M.D. [id number] Erythrocyte distribution width (RBC) [Ratio] 13.6 % Normal 11.6-14.8 [facility] Comment on above: Performed By: #### 4 5218 ####[facility] [address] [id number] Wojciech Oneal M.D. [id number] Hematocrit (Bld) [Volume fraction] 25.3 % Low 41.0-53.0 [facility] Comment on above: Performed By: #### 4 5218 ####[facility] [address] [address] Wojciech Oneal M.D. [id number] Hemoglobin (Bld) [Mass/Vol] 8.1 g/dL Low 13.5-17.5 [facility] Comment on above: Performed By: #### 4 5218 ####[facility] [address] [address] Wojciech Oneal M.D. [id number] MCH (RBC) [Entitic mass] 29.5 pg Normal 26.0-34.0 [facility] Comment on above: Performed By: #### 4 5218 ####[facility] [address] [address] Wojciech Oneal M.D. [id number] MCV (RBC) [Entitic vol] 92.0 fL Normal 80.0-100.0 [facility] Comment on above: Performed By: #### 4 5218 ####[facility] [address] [address] Wojciech Oneal M.D. [id number] MEAN CORPUSCULAR HEMOGLOBIN CONC 32.0 g/dL Normal 31.0-37.0 [facility] Comment on above: Performed By: #### 4 5218 ####[facility] [address] [id number] Wojciech Oneal M.D. [id number] Platelet mean volume (Bld) [Entitic vol] 9.0 fL Low 9.4-12.4 [facility] Comment on above: Performed By: #### 4 5218 ####[facility] [address] [address] Wojciech Oneal M.D. [id number] Platelets (Bld) [#/Vol] 285 10*3/uL Normal 150-400 [facility] Comment on above: Performed By: #### 4 5218 ####[facility] [address] [address] Wojciech Oneal M.D. [id number] RBC (Bld) [#/Vol] 2.75 10*6/uL Low 4.50-5.90 [facility] Comment on above: Performed By: #### 4 5218 ####[facility] [address] [address] Wojciech Oneal M.D. [id number] WBC (Bld) [#/Vol] 21.63 10*3/uL High 4.50-11.00 [facility] Comment on above: Performed By: #### 4 5218 ####[facility] [address] [address] Wojciech Oneal M.D. [id number] MAGNESIUM LEVELon 01-26-2025 Magnesium [Mass/Vol] 2.4 mg/dL Normal 1.6-2.4 [facility] Comment on above: Performed By: #### 4 6109 ####[facility] [address] [address] Wojciech Oneal M.D. [id number] PHOSPHORUSon 01-26-2025 Phosphate [Mass/Vol] 3.0 mg/dL Normal 2.3-3.7 [facility] Comment on above: Performed By: #### 4 6299 ####[facility] [address] [address] Wojciech Oneal M.D. [id number] POC GLUCOSE - [facility] 025 Glucose [Mass/Vol] 118 mg/dL High [address] [place] [address] Comment on above: Performed By: #### 4 6932 ####[facility] [address] [address] [id number] [facility] Glucose [Mass/Vol] 111 mg/dL [address] Comment on above: Performed By: #### 4 6932 ####[facility] [address] [address] [id number] [facility] Glucose [Mass/Vol] 104 mg/dL High [address] [place] [address] Comment on above: Performed By: #### 4 6932 ####[facility] [address] [address] [id number] [facility] Glucose [Mass/Vol] 93 mg/dL Normal [address] [place] [address] Comment on above: Performed By: #### 4 6932 ####[facility] [address] [address] [id number] [facility] Glucose [Mass/Vol] 93 mg/dL Normal 65-99 [facility] Comment on above: Performed By: #### 4 6932 ####[facility] [address] [address] [id number] [facility] BASIC METABOLIC PANELon 01-12 Anion gap [Moles/Vol] 13 mmol/L Normal 10-20 [facility] Comment on above: Order Comment: [facility] has implemented the eGFR calculation approach that does not have a coefficient for race that conforms to the NKF-ASN Task Force Recommendations. Performed By: #### 4 6124 ####[facility] [address] [address] Wojciech Oneal M.D. [id number] Calcium [Mass/Vol] 6.8 mg/dL Low 8.4-10.2 [facility] Comment on above: Order Comment: [facility] has implemented the eGFR calculation approach that does not have a coefficient for race that conforms to the NKF-ASN Task Force Recommendations. Performed By: #### 4 6124 ####[facility] [address] [address] Wojciech Oneal M.D. [id number] Chloride [Moles/Vol] 102 mmol/L Normal 98-108 [facility] Comment on above: Order Comment: [facility] has implemented the eGFR calculation approach that does not have a coefficient for race that conforms to the NKF-ASN Task Force Recommendations. Performed By: #### 4 6124 ####[facility] [address] [id number] Wojciech Oneal M.D. [id number] Creatinine [Mass/Vol] 1.18 mg/dL Normal 0.80-1.30 [facility] Comment on above: Order Comment: [facility] has implemented the eGFR calculation approach that does not have a coefficient for race that conforms to the NKF-ASN Task Force Recommendations. Performed By: #### 4 6124 ####[facility] [address] [address] Wojciech Oneal M.D. [id number] EGFR 66 mL/min/1.73 m2 Normal >=60 [facility] Comment on above: Order Comment: [facility] has implemented the eGFR calculation approach that does not have a coefficient for race that conforms to the NKF-ASN Task Force Recommendations. Result Comment: [place] mated GFR was calculated using the 2020 CKD-EPI creatinine equation. Performed By: #### 4 6124 ####[facility] [address] [id number] Wojciech Oneal M.D. [id number] Glucose [Mass/Vol] 100 mg/dL High 65-99 [facility] Comment on above: Order Comment: [facility] has implemented the eGFR calculation approach that does not have a coefficient for race that conforms to the NKF-ASN Task Force Recommendations. Performed By: #### 4 6124 ####[facility] [address] [address] Wojciech Oneal M.D. [id number] HCO3 (Bld) [Moles/Vol] 23 mmol/L Normal 21-32 [facility] Comment on above: Order Comment: [facility] has implemented the eGFR calculation approach that does not have a coefficient for race that conforms to the NKF-ASN Task Force Recommendations. Performed By: #### 4 6124 ####[facility] [address] [address] Wojciech Oneal M.D. [id number] Potassium [Moles/Vol] 3.8 mmol/L Normal 3.5-5.1 [facility] Comment on above: Order Comment: [facility] has implemented the eGFR calculation approach that does not have a coefficient for race that conforms to the NKF-ASN Task Force Recommendations. Performed By: #### 4 6124 ####[facility] [address] [address] Wojciech Oneal M.D. [id number] Sodium [Moles/Vol] 134 mmol/L Low 135-145 [facility] Comment on above: Order Comment: [facility] has implemented the eGFR calculation approach that does not have a coefficient for race that conforms to the NKF-ASN Task Force Recommendations. Performed By: #### 4 6170 ####[facility] [address] [id number] Wojciech Oneal M.D. [id number] Urea nitrogen [Mass/Vol] 37 mg/dL High 8-25 [facility] Comment on above: Order Comment: [facility] has implemented the eGFR calculation approach that does not have a coefficient for race that conforms to the NKF-ASN Task Force Recommendations. Performed By: #### 4 6124 ####[facility] [address] [address] Wojciech Oneal M.D. [id number] Urea nitrogen/Creatinine [Mass ratio] 31.4 mg/mg High 10.0-20.0 [facility] Comment on above: Order Comment: [facility] has implemented the eGFR calculation approach that does not have a coefficient for race that conforms to the NKF-ASN Task Force Recommendations. Performed By: #### 4 6124 ####[facility] [address] [address] Wojciech Oneal M.D. [id number] CALCIUM, IONIZEDon CALCIUM IONIZED 4.4 mg/dL Low 4.5-5.3 [facility] Comment on above: Performed By: #### 4 5190 ####[facility] [address] [id number] Wojciech Oneal M.D. [id number] CALCIUM IONIZED 4.0 mg/dL Low 4.5-5.3 [facility] Comment on above: Performed By: #### 4 5190 ####[facility] [address] [address] Wojciech Oneal M.D. [id number] CBCon 01-25-2025 AUTO NRBC 0.1 % Normal [facility] Comment on above: Performed By: #### 4 5218 ####[facility] [address] [id number] Wojciech Oneal M.D. [id number] AUTO NRBC ABS COUNT 0.02 K/mcL High 0.00-0.00 [facility] Comment on above: Performed By: #### 4 5218 ####[facility] [address] [address] Wojciech Oneal M.D. [id number] Erythrocyte distribution width (RBC) [Ratio] 13.2 % Normal 11.6-14.8 [facility] Comment on above: Performed By: #### 4 5218 ####[facility] [address] [address] Wojciech Oneal M.D. [id number] Hematocrit (Bld) [Volume fraction] 24.0 % Low 41.0-53.0 [facility] Comment on above: Performed By: #### 4 5218 ####[facility] [address] [address] Wojciech Oneal M.D. [id number] Hemoglobin (Bld) [Mass/Vol] 7.9 g/dL Low 13.5-17.5 [facility] Comment on above: Performed By: #### 4 5218 ####[facility] [address] [address] Wojciech Oneal M.D. [id number] MCH (RBC) [Entitic mass] 29.8 pg Normal 26.0-34.0 [facility] Comment on above: Performed By: #### 4 5218 ####[facility] [address] [address] Wojciech Oneal M.D. [id number] MCV (RBC) [Entitic vol] 90.6 fL Normal 80.0-100.0 [facility] Comment on above: Performed By: #### 4 5218 ####[facility] [address] [address] Wojciech Oneal M.D. [id number] MEAN CORPUSCULAR HEMOGLOBIN CONC 32.9 g/dL Normal 31.0-37.0 [facility] Comment on above: Performed By: #### 4 5218 ####[facility] [address] [address] Wojciech Oneal M.D. [id number] Platelet mean volume (Bld) [Entitic vol] 9.1 fL Low 9.4-12.4 [facility] Comment on above: Performed By: #### 4 5218 ####[facility] [address] [address] Wojciech Oneal M.D. [id number] Platelets (Bld) [#/Vol] 258 10*3/uL Normal 150-400 [facility] Comment on above: Performed By: #### 4 5218 ####[facility] [address] [id number] Wojciech Oneal M.D. [id number] RBC (Bld) [#/Vol] 2.65 10*6/uL Low 4.50-5.90 [facility] Comment on above: Performed By: #### 4 5218 ####[facility] [address] [id number] Wojciech Oneal M.D. [id number] WBC (Bld) [#/Vol] 18.46 10*3/uL High 4.50-11.00 [facility] Comment on above: Performed By: #### 4 5218 ####[facility] [address] [address] Wojciech Oneal M.D. [id number] MAGNESIUM LEVELon 01-25-2025 Magnesium [Mass/Vol] 2.3 mg/dL Normal 1.6-2.4 [facility] Comment on above: Performed By: #### 4 6109 ####[facility] [address] [id number] Wojciech Oneal M.D. [id number] Magnesium [Mass/Vol] 1.9 mg/dL Normal 1.6-2.4 [facility] Comment on above: Performed By: #### 4 6109 ####[facility] [address] [id number] Wojciech Oneal M.D. [id number] PHOSPHORUSon 01-25-2025 Phosphate [Mass/Vol] 3.3 mg/dL Normal 2.3-3.7 [facility] Comment on above: Performed By: #### 4 6299 ####[facility] [address] [id number] Wojciech Oneal M.D. [id number] POC ARTERIAL BLOOD GAS PANEL -[facility] 01-25-2025 BASE EXCESS, ARTERIAL -1.1 Normal -2.0-2.0 [facility] Comment on above: Performed By: #### 4 8716 ####[facility] [address] [address] [id number] [facility] CALCIUM IONIZED 4.3 mg/dL Low 4.5-5.3 [facility] Comment on above: Performed By: #### 4 8716 ####[facility] [address] [address] [id number] [facility] CARBOXYHEMOGLOBIN 1.6 % of total Hb High <=1.5 [facility] Comment on above: Result Comment: Refe rence Ranges:Suburban Non-smokers: <1.5%Smokers: 1.5-5.0%Heavy Smokers: 5.0-9.0% Performed By: #### 4 8716 ####[facility] [address] [address] [id number] [facility] FIO2 [address] [facility] Comment on above: Performed By: #### 4 8716 ####[facility] [address] [address] [id number] [facility] Glucose [Mass/Vol] 105 mg/dL High 65-99 [facility] Comment on above: Performed By: #### 4 8716 ####[facility] [address] [address] [id number] [facility] HCO3 (Bld) [Moles/Vol] 24.2 mmol/L Normal 22.0-26.0 [facility] Comment on above: Performed By: #### 4 8716 ####[facility] [address] [address] [id number] [facility] Hematocrit (Bld) [Volume fraction] 30.0 % Low 41.0-53.0 [facility] Comment on above: Performed By: #### 4 8716 ####[facility] [address] [address] [id number] [facility] Hemoglobin (Bld) [Mass/Vol] 9.7 g/dL Low 13.5-17.5 [facility] Comment on above: Performed By: #### 4 8716 ####[facility] [address] [address] [id number] [facility] LACTIC ACID, WHOLE BLOOD 0.8 mmol/L Normal 0.6-2.0 [facility] Comment on above: Performed By: #### 4 8716 ####[facility] [address] [address] [id number] [facility] METHEMOGLOBIN 1.1 % Normal 0.0-2.0 [facility] Comment on above: Performed By: #### 4 8716 ####[facility] [address] [address] [id number] [facility] O2HB 93.7 % Low 94.0-98.0 [facility] Comment on above: Performed By: #### 4 8716 ####[facility] [address] [address] [id number] [facility] Oxygen saturation in Blood 96.3 % Normal 92.0-99.0 [facility] Comment on above: Performed By: #### 4 8716 ####[facility] [address] [address] [id number] [facility] PCO2 ARTERIAL 45.5 mm Hg High 35.0-45.0 [facility] Comment on above: Performed By: #### 4 8716 ####[facility] [address] [address] [id number] [facility] PEEP RAD [address] [facility] Comment on above: Performed By: #### 4 8716 ####[facility] [address] [address] [id number] [facility] PH ARTERIAL 7.34 Low 7.35-7.45 [facility] Comment on above: Performed By: #### 4 8716 ####[facility] [address] [address] [id number] [facility] PO2 ARTERIAL 83 mm Hg Normal 75-85 [facility] Comment on above: Performed By: #### 4 8716 ####[facility] [address] [address] [id number] [facility] Potassium [Moles/Vol] 4.0 mmol/L Normal 3.5-5.1 [facility] Comment on above: Performed By: #### 4 8716 ####[facility] [address] [address] [id number] [facility] RESP RATE RAD 16 [facility] Comment on above: Performed By: #### 4 8716 ####[facility] [address] [address] [id number] [facility] Sodium [Moles/Vol] 138 mmol/L Normal 135-145 [facility] Comment on above: Performed By: #### 4 8716 ####[facility] [address] [address] [id number] [facility] TIDAL VOLUME RAD 450 [facility] Comment on above: Performed By: #### 4 8716 ####[facility] [address] [address] [id number] [facility] POC GLUCOSE - [facility] 025 Glucose [Mass/Vol] 116 mg/dL [address] Comment on above: Performed By: #### 4 6932 ####[facility] [address] [address] [id number] [facility] Glucose [Mass/Vol] 107 mg/dL [address] Comment on above: Performed By: #### 4 6932 ####[facility] [address] [address] [id number] [facility] Glucose [Mass/Vol] 106 mg/dL [address] Comment on above: Performed By: #### 4 6932 ####[facility] [address] [address] [id number] [facility] Glucose [Mass/Vol] 109 mg/dL [address] Comment on above: Performed By: #### 4 6932 ####[facility] [address] [address] [id number] [facility] Glucose [Mass/Vol] 102 mg/dL [address] Comment on above: Performed By: #### 4 6932 ####[facility] [address] [address] [id number] [facility] POTASSIUM LEVELon 01-25-2025 Potassium [Moles/Vol] 4.2 mmol/L Normal 3.5-5.1 [facility] Comment on above: Performed By: #### 4 6351 ####[facility] [address] [place], [place] [address] Wojciech Oneal M.D. [id number] VANCOMYCIN LEVEL, RANDOMon 0 01-25-2025 VANCOMYCIN RANDOM 11.6 mcg/mL Normal [facility] Comment on above: Order Comment: As of 02/2022 vancomycin dosing for [facility] inpatients will be done by Bayesian dosing software rather than off traditional trough values. Please contact the site specific inpatient pharmacy before making dose changes off of trough values alone for admitted patients.No established reference range. Performed By: #### 4 6651 ####[facility] [address], [place] [address] Wojciech Oneal M.D. [id number] XR CHEST PA/APon 01-25-2025 XR CHEST PA/AP Normal [facility] Comment on above: Order Comment: Injur y/Trauma or Illness?:Illness/OtherHow long have you had these symptoms (acute/chronic)?:UnknownReason for exam?:Respiratory statusHistory of cancer?:unkSurgeries, chemotherapy, or radiation?:unkType of Exam?:InitialAdditional signs and symptoms?:na BASIC METABOLIC PANELon 01-12 Anion gap [Moles/Vol] 16 mmol/L Normal - [facility] Comment on above: Order Comment: [facility] has implemented the eGFR calculation approach that does not have a coefficient for race that conforms to the NKF-ASN Task Force Recommendations. Performed By: #### 4 6124 ####[facility] [address], [place] [address] Wojciech Oneal M.D. [id number] Calcium [Mass/Vol] 6.7 mg/dL Low 8.4-10.2 [facility] Comment on above: Order Comment: [facility] has implemented the eGFR calculation approach that does not have a coefficient for race that conforms to the NKF-ASN Task Force Recommendations. Performed By: #### 4 6124 ####[facility] [address] [id number] Wojciech Oneal M.D. [id number] Chloride [Moles/Vol] 101 mmol/L Normal 98-108 [facility] Comment on above: Order Comment: [facility] has implemented the eGFR calculation approach that does not have a coefficient for race that conforms to the NKF-ASN Task Force Recommendations. Performed By: #### 4 6124 ####[facility] [address] [address] Wojciech Oneal M.D. [id number] Creatinine [Mass/Vol] 1.82 mg/dL High 0.80-1.30 [facility] Comment on above: Order Comment: [facility] [place] [facility] implemented the eGFR calculation approach that does not have a coefficient for race that conforms to the NKF-ASN Task Force Recommendations. Performed By: #### 4 6124 ####[facility] [address] [id number] Wojciech Oneal M.D. [id number] EGFR 39 mL/min/1.73 m2 Low >=60 [facility] Comment on above: Order Comment: [facility] has implemented the eGFR calculation approach that does not have a coefficient for race that conforms to the NKF-ASN Task Force Recommendations. Result Comment: [place] mated GFR was calculated using the 2020 CKD-EPI creatinine equation. Performed By: #### 4 6124 ####[facility] [address] [address] Wojciech Oneal M.D. [id number] Glucose [Mass/Vol] 127 mg/dL High 65-99 [facility] Comment on above: Order Comment: [facility] has implemented the eGFR calculation approach that does not have a coefficient for race that conforms to the NKF-ASN Task Force Recommendations. Performed By: #### 4 6124 ####[facility] [address], [place] [address] Wojciech Oneal M.D. [id number] HCO3 (Bld) [Moles/Vol] 19 mmol/L Low 21-32 [facility] Comment on above: Order Comment: [facility] has implemented the eGFR calculation approach that does not have a coefficient for race that conforms to the NKF-ASN Task Force Recommendations. Performed By: #### 4 6156 ####[facility] [address], [place] [address] Wojciech Oneal M.D. [id number] Potassium [Moles/Vol] 4.0 mmol/L Normal 3.5-5.1 [facility] Comment on above: Order Comment: [facility] has implemented the eGFR calculation approach that does not have a coefficient for race that conforms to the NKF-ASN Task Force Recommendations. Performed By: #### 4 6124 ####[facility] [address] [address] Wojciech Oneal M.D. [id number] Sodium [Moles/Vol] 132 mmol/L Low 135-145 [facility] Comment on above: Order Comment: [facility] has implemented the eGFR calculation approach that does not have a coefficient for race that conforms to the NKF-ASN Task Force Recommendations. Performed By: #### 4 6124 ####[facility] [address] [address] Wojciech Oneal M.D. [id number] Urea nitrogen [Mass/Vol] 49 mg/dL High 8-25 [facility] Comment on above: Order Comment: [facility] has implemented the eGFR calculation approach that does not have a coefficient for race that conforms to the NKF-ASN Task Force Recommendations. Performed By: #### 4 6124 ####[facility] [address], [place] [address] Wojciech Oneal M.D. [id number] Urea nitrogen/Creatinine [Mass ratio] 26.9 mg/mg High 10.0-20.0 [facility] Comment on above: Order Comment: [facility] has implemented the eGFR calculation approach that does not have a coefficient for race that conforms to the NKF-ASN Task Force Recommendations. Performed By: #### 4 6124 ####[facility] [address], [place] [address] Wojciech Oneal M.D. [id number] CALCIUM, IONIZEDon 5 CALCIUM IONIZED 3.9 mg/dL Low 4.5-5.3 [facility] Comment on above: Performed By: #### 4 5190 ####[facility] [address] [id number] Wojciech Oneal M.D. [id number] CBCon 01-24-2025 AUTO NRBC 0.0 % Normal [facility] Comment on above: Performed By: #### 4 5218 ####[facility] [address] [address] Wojciech Oneal M.D. [id number] AUTO NRBC ABS COUNT 0.00 K/mcL Normal 0.00-0.00 [facility] Comment on above: Performed By: #### 4 5218 ####[facility] [address] [address] Wojciech Oneal M.D. [id number] Erythrocyte distribution width (RBC) [Ratio] 13.0 % Normal 11.6-14.8 [facility] Comment on above: Performed By: #### 4 5218 ####[facility] [address] [address] Wojciech Oneal M.D. [id number] Hematocrit (Bld) [Volume fraction] 24.5 % Low 41.0-53.0 [facility] Comment on above: Performed By: #### 4 5218 ####[place] [address] [id number] Wojciech Oneal M.D. [id number] Hemoglobin (Bld) [Mass/Vol] 8.0 g/dL Low 13.5-17.5 [facility] Comment on above: Performed By: #### 4 5218 ####[facility] [address] [id number] Wojciech Oneal M.D. [id number] MCH (RBC) [Entitic mass] 29.7 pg Normal 26.0-34.0 [facility] Comment on above: Performed By: #### 4 5218 ####[facility] [address] [address] Wojciech Oneal M.D. [id number] MCV (RBC) [Entitic vol] 91.1 fL Normal 80.0-100.0 [facility] Comment on above: Performed By: #### 4 5218 ####[facility] [address] [address] Wojciech Oneal M.D. [id number] MEAN CORPUSCULAR HEMOGLOBIN CONC 32.7 g/dL Normal 31.0-37.0 [facility] Comment on above: Performed By: #### 4 5218 ####[facility] [address], [place] [address] Wojciech Oneal M.D. [id number] Platelet mean volume (Bld) [Entitic vol] 9.3 fL Low 9.4-12.4 [facility] Comment on above: Performed By: #### 4 5218 ####[facility] [address] [id number] Wojciech Oneal M.D. [id number] Platelets (Bld) [#/Vol] 258 10*3/uL Normal 150-400 [facility] Comment on above: Performed By: #### 4 5218 ####[facility] [address] [id number] Wojciech Oneal M.D. [id number] RBC (Bld) [#/Vol] 2.69 10*6/uL Low 4.50-5.90 [facility] Comment on above: Performed By: #### 4 5218 ####[facility] [address] [id number] Wojciech Oneal M.D. [id number] WBC (Bld) [#/Vol] 21.11 10*3/uL High 4.50-11.00 [facility] Comment on above: Performed By: #### 4 5218 ####[facility] [address] [id number] Wojciech Oneal M.D. [id number] CONSULTon 01-24-2025 CONSULT [facility] Culture, Blood (WB)on 2024 CUB Blood cultures x2, from two different sites GRAM STAIN= GRAM NEGATIVE RODS Culture, Blood (WB) RESULTS CALLED/PRINTED TO [facility] 01/22/25 [address]. REPORT [facility] BACK [facility]. Culture, Blood (WB) Culture, Blood (WB) Proteus [...] TMP SMX Islt TAMMY <=20 S Normal [facility] Comment on above: Performed By: #### L 509.7001, L100.0100, L503.6005, L503.7505, L501.3620, L500.2500, L501.5200, L500.3400 #### [facility] [address] [place], [address] ECHOCARDIOGRAM COMPLETE W CO NTRASTon 01-24-2025 ECHOCARDIOGRAM COMPLETE W CONTRAST Normal [facility] MAGNESIUM LEVELon 01-24-2025 Magnesium [Mass/Vol] 2.0 mg/dL Normal 1.6-2.4 [facility] Comment on above: Performed By: #### 4 6109 ####[facility] [address], [place] [address] Wojciech Oneal M.D. [id number] PHOSPHORUSon 01-24-2025 Phosphate [Mass/Vol] 4.7 mg/dL High 2.3-3.7 [facility] Comment on above: Performed By: #### 4 6299 ####[facility] [address], [place] [address] Wojciech Oneal M.D. [id number] POC ARTERIAL BLOOD GAS PANEL -[facility] 01-24-2025 BASE EXCESS, ARTERIAL -2.8 Low -2.0-2.0 [facility] Comment on above: Performed By: #### 4 8716 ####[facility] [address] [address] [id number] [facility] CALCIUM IONIZED 4.0 mg/dL Low 4.5-5.3 [facility] Comment on above: Performed By: #### 4 8716 ####[facility] [address] [address] [id number] [facility] CARBOXYHEMOGLOBIN 1.3 % of total Hb Normal <=1.5 [facility] Comment on above: Result Comment: Refe rence Ranges:Suburban Non-smokers: <1.5%Smokers: 1.5-5.0%Heavy Smokers: 5.0-9.0% Performed By: #### 4 8716 ####[facility] [address] [address] [id number] [facility] Chloride [Moles/Vol] 103 mmol/L Normal 98-108 [facility] Comment on above: Performed By: #### 4 8716 ####[facility] [address] [place] [address] [id number] [facility] FIO2 [address] [facility] Comment on above: Performed By: #### 4 8716 ####[facility] [address] [address] [id number] [facility] Glucose [Mass/Vol] 109 mg/dL High 65-99 [facility] Comment on above: Performed By: #### 4 8716 ####[facility] [address] [address] [id number] [facility] HCO3 (Bld) [Moles/Vol] 23.3 mmol/L Normal 22.0-26.0 [facility] Comment on above: Performed By: #### 4 8716 ####[facility] [address] [address] [id number] [facility] Hematocrit (Bld) [Volume fraction] 25.3 % Low 41.0-53.0 [facility] Comment on above: Performed By: #### 4 8716 ####[facility] [address] [place] [address] [id number] [facility] Hemoglobin (Bld) [Mass/Vol] 8.3 g/dL Low 13.5-17.5 [facility] Comment on above: Performed By: #### 4 8716 ####[facility] [address] [place] [address] [id number] [facility] LACTIC ACID, WHOLE BLOOD 0.8 mmol/L Normal 0.6-2.0 [facility] Comment on above: Performed By: #### 4 8716 ####[facility] [address] [address] [id number] [facility] METHEMOGLOBIN < Normal 0.0-2.0 [facility] Comment on above: Performed By: #### 4 8716 ####[facility] [address] [address] [id number] [facility] O2HB 92.2 % Low 94.0-98.0 [facility] Comment on above: Performed By: #### 4 8716 ####[facility] [address] [address] [id number] [facility] Oxygen saturation in Blood 93.5 % Normal 92.0-99.0 [facility] Comment on above: Performed By: #### 4 8716 ####[facility] [address] [address] [id number] [facility] PCO2 ARTERIAL 45.2 mm Hg High 35.0-45.0 [facility] Comment on above: Performed By: #### 4 8716 ####[facility] [address] [address] [id number] [facility] PEEP RAD [address] [facility] Comment on above: Performed By: #### 4 8716 ####[facility] [address] [address] [id number] [facility] PH ARTERIAL 7.32 Low 7.35-7.45 [facility] Comment on above: Performed By: #### 4 8716 ####[facility] [address] [address] [id number] [facility] PO2 ARTERIAL 70 mm Hg Low 75-85 [facility] Comment on above: Performed By: #### 4 8716 ####[facility] [address] [place] [address] [id number] [facility] Potassium [Moles/Vol] 3.7 mmol/L Normal 3.5-5.1 [facility] Comment on above: Performed By: #### 4 8716 ####[facility] [address] [place] [address] [id number] [facility] RESP RATE RAD 16 [facility] Comment on above: Performed By: #### 4 8716 ####[facility] [address] [place] [address] [id number] [facility] RESULT NOTIFICATION RESULTS GIVEN TO:[id number] [facility] Comment on above: Performed By: #### 4 8716 ####[facility] [address] [place] [address] [id number] [facility] Sodium [Moles/Vol] 133 mmol/L Low 135-145 [facility] Comment on above: Performed By: #### 4 8716 ####[facility] [address] [place] [address] [id number] [facility] TIDAL VOLUME RAD 450 [facility] Comment on above: Performed By: #### 4 8716 ####[facility] [address] [place] [address] [id number] [facility] POC GLUCOSE [facility] 025 Glucose [Mass/Vol] 104 mg/dL [address] Comment on above: Performed By: #### 4 6932 ####[facility] [address] [place] [address] [id number] [facility] Glucose [Mass/Vol] 106 mg/dL [address] Comment on above: Performed By: #### 4 6932 ####[facility] [address] [place] [address] [id number] [facility] Glucose [Mass/Vol] 92 mg/dL [address] Comment on above: Performed By: #### 4 6932 ####[facility] [address] [place] [address] [id number] [facility] Glucose [Mass/Vol] 95 mg/dL Normal -[address] [place] [address] Comment on above: Performed By: #### 4 6932 ####[facility] [address] [address] [id number] [facility] Glucose [Mass/Vol] 107 mg/dL High [address] [place] [address] Comment on above: Performed By: #### 4 6932 ####[facility] [address] [address] [id number] [facility] Glucose [Mass/Vol] 127 mg/dL High [address] [place] [address] Comment on above: Performed By: #### 4 6932 ####[facility] [address] [address] [id number] [facility] VANCOMYCIN LEVEL, RANDOMon 0 01-24-2025 VANCOMYCIN RANDOM 20.6 mcg/mL Normal [facility] Comment on above: Order Comment: As of 02/2022 vancomycin dosing for [facility] inpatients will be done by Bayesian dosing software rather than off traditional trough values. Please contact the site specific inpatient pharmacy before making dose changes off of trough values alone for admitted patients.No established reference range. Performed By: #### 4 6651 ####[facility] [address] [id number] Wojciech Oneal M.D. [id number] XR CHEST PA/APon 01-24-2025 XR CHEST PA/AP Normal [facility] Comment on above: Order Comment: Injur y/Trauma or Illness?:Illness/OtherHow long have you had these symptoms (acute/chronic)?:AcuteReason for exam?:Respiratory statusHistory of cancer?:unkSurgeries, chemotherapy, or radiation?:unkType of Exam?:InitialAdditional signs and symptoms?:Respiratory status BASIC METABOLIC PANELon 01-12 Anion gap [Moles/Vol] 16 mmol/L Normal - [facility] Comment on above: Order Comment: [facility] has implemented the eGFR calculation approach that does not have a coefficient for race that conforms to the NKF-ASN Task Force Recommendations. Performed By: #### 4 6124 ####[facility] [address] [id number] Wojciech Oneal M.D. [id number] Calcium [Mass/Vol] 6.9 mg/dL Low 8.4-10.2 [facility] Comment on above: Order Comment: [facility] has implemented the eGFR calculation approach that does not have a coefficient for race that conforms to the NKF-ASN Task Force Recommendations. Performed By: #### 4 6124 ####[facility] [address] [id number] Wojciech Oneal M.D. [id number] Chloride [Moles/Vol] 100 mmol/L Normal 98-108 [facility] Comment on above: Order Comment: [facility] has implemented the eGFR calculation approach that does not have a coefficient for race that conforms to the NKF-ASN Task Force Recommendations. Performed By: #### 4 6124 ####[facility] [address] [address] Wojciech Oneal M.D. [id number] Creatinine [Mass/Vol] 2.68 mg/dL High 0.80-1.30 [facility] Comment on above: Order Comment: [facility] has implemented the eGFR calculation approach that does not have a coefficient for race that conforms to the NKF-ASN Task Force Recommendations. Performed By: #### 4 6124 ####[facility] [address] [id number] Wojciech Oneal M.D. [id number] EGFR 25 mL/min/1.73 m2 Low >=60 [facility] Comment on above: Order Comment: [facility] has implemented the eGFR calculation approach that does not have a coefficient for race that conforms to the NKF-ASN Task Force Recommendations. Result Comment: [place] mated GFR was calculated using the 2020 CKD-EPI creatinine equation. Performed By: #### 4 6124 ####[facility] [address] [id number] Wojciech Oneal M.D. [id number] Glucose [Mass/Vol] 134 mg/dL High 65-99 [facility] Comment on above: Order Comment: [facility] has implemented the eGFR calculation approach that does not have a coefficient for race that conforms to the NKF-ASN Task Force Recommendations. Performed By: #### 4 6124 ####[facility] [address], [place] [address] Wojciech Oneal M.D. [id number] HCO3 (Bld) [Moles/Vol] 19 mmol/L Low 21-32 [facility] Comment on above: Order Comment: [facility] has implemented the eGFR calculation approach that does not have a coefficient for race that conforms to the NKF-ASN Task Force Recommendations. Performed By: #### 4 6124 ####[facility] [address] [id number] Wojciech Oneal M.D. [id number] Potassium [Moles/Vol] 4.2 mmol/L Normal 3.5-5.1 [facility] Comment on above: Order Comment: [facility] has implemented the eGFR calculation approach that does not have a coefficient for race that conforms to the NKF-ASN Task Force Recommendations. Performed By: #### 4 6124 ####[facility] [address] [id number] Wojciech Oneal M.D. [id number] Sodium [Moles/Vol] 131 mmol/L Low 135-145 [facility] Comment on above: Order Comment: [facility] has implemented the eGFR calculation approach that does not have a coefficient for race that conforms to the NKF-ASN Task Force Recommendations. Performed By: #### 4 6124 ####[facility] [address] [id number] Wojciech Oneal M.D. [id number] Urea nitrogen [Mass/Vol] 62 mg/dL High 8-25 [facility] Comment on above: Order Comment: [facility] has implemented the eGFR calculation approach that does not have a coefficient for race that conforms to the NKF-ASN Task Force Recommendations. Performed By: #### 4 6124 ####[facility] [address] [id number] Wojciech Oneal M.D. [id number] Urea nitrogen/Creatinine [Mass ratio] 23.1 mg/mg High 10.0-20.0 [facility] Comment on above: Order Comment: [facility] has implemented the eGFR calculation approach that does not have a coefficient for race that conforms to the NKF-ASN Task Force Recommendations. Performed By: #### 4 6124 ####[facility] [address] [address] Wojciech Oneal M.D. [id number] CALCIUM, IONIZEDon 5 CALCIUM IONIZED 4.1 mg/dL Low 4.5-5.3 [facility] Comment on above: Performed By: #### 4 5190 ####[facility] [address] [address] Wojciech Oneal M.D. [id number] CBCon 01-23-2025 AUTO NRBC 0.1 % Normal [facility] Comment on above: Performed By: #### 4 5218 ####[facility] [address] [address] Wojciech Oneal M.D. [id number] AUTO NRBC ABS COUNT 0.02 K/mcL High 0.00-0.00 [facility] Comment on above: Performed By: #### 4 5218 ####[facility] [address] [address] Wojciech Oneal M.D. [id number] Erythrocyte distribution width (RBC) [Ratio] 12.7 % Normal 11.6-14.8 [facility] Comment on above: Performed By: #### 4 5218 ####[facility] [address] [id number] Wojciech Oneal M.D. [id number] Hematocrit (Bld) [Volume fraction] 28.8 % Low 41.0-53.0 [facility] Comment on above: Performed By: #### 4 5218 ####[facility] [address] [address] Wojciech Oneal M.D. [id number] Hemoglobin (Bld) [Mass/Vol] 9.6 g/dL Low 13.5-17.5 [facility] Comment on above: Performed By: #### 4 5218 ####[facility] [address] [address] Wojciech Oneal M.D. [id number] MCH (RBC) [Entitic mass] 29.4 pg Normal 26.0-34.0 [facility] Comment on above: Performed By: #### 4 5218 ####[facility] [address] [id number] Wojciech Oneal M.D. [id number] MCV (RBC) [Entitic vol] 88.1 fL Normal 80.0-100.0 [facility] Comment on above: Performed By: #### 4 5218 ####[facility] [address] [address] Wojciech Oneal M.D. [id number] MEAN CORPUSCULAR HEMOGLOBIN CONC 33.3 g/dL Normal 31.0-37.0 [facility] Comment on above: Performed By: #### 4 5218 ####[facility] [address] [address] Wojciech Oneal M.D. [id number] Platelet mean volume (Bld) [Entitic vol] 9.3 fL Low 9.4-12.4 [facility] Comment on above: Performed By: #### 4 5218 ####[facility] [address] [address] Wojciech Oneal M.D. [id number] Platelets (Bld) [#/Vol] 285 10*3/uL Normal 150-400 [facility] Comment on above: Performed By: #### 4 5218 ####[facility] [address] [address] Wojciech Oneal M.D. [id number] RBC (Bld) [#/Vol] 3.27 10*6/uL Low 4.50-5.90 [facility] Comment on above: Performed By: #### 4 5218 ####[facility] [address] [address] Wojciech Oneal M.D. [id number] WBC (Bld) [#/Vol] 20.92 10*3/uL High 4.50-11.00 [facility] Comment on above: Performed By: #### 4 5218 ####[facility] [address] [id number] Wojciech Oneal M.D. [id number] MAGNESIUM LEVELon 01-23-2025 Magnesium [Mass/Vol] 2.1 mg/dL Normal 1.6-2.4 [facility] Comment on above: Performed By: #### 4 6109 ####[facility] [address] [address] Wojciech Oneal M.D. [id number] OP NOTEon 01-23-[address] [facility] PHOSPHORUSon 01-23-2025 Phosphate [Mass/Vol] 5.2 mg/dL High 2.3-3.7 [facility] Comment on above: Performed By: #### 4 6299 ####[facility] [address] [address] Wojciech Oneal M.D. [id number] POC ARTERIAL BLOOD GAS PANEL [facility] 01-23-2025 BASE EXCESS, ARTERIAL -5.2 Low -2.0-2.0 [facility] Comment on above: Performed By: #### 4 8716 ####[facility] [address] [address] [id number] [facility] CALCIUM IONIZED 4.0 mg/dL Low 4.5-5.3 [facility] Comment on above: Performed By: #### 4 8716 ####[facility] [address] [address] [id number] [facility] CARBOXYHEMOGLOBIN 1.2 % of total Hb Normal <=1.5 [facility] Comment on above: Result Comment: Refe rence Ranges:Suburban Non-smokers: <1.5%Smokers: 1.5-5.0%Heavy Smokers: 5.0-9.0% Performed By: #### 4 8716 ####[facility] [address] [address] [id number] [facility] Chloride [Moles/Vol] 102 mmol/L Normal 98-108 [facility] Comment on above: Performed By: #### 4 8716 ####[facility] [address] [address] [id number] [facility] FIO2 40 [facility] Comment on above: Performed By: #### 4 8716 ####[facility] [address] [id number] [facility] Glucose [Mass/Vol] 128 mg/dL High 65-99 [facility] Comment on above: Performed By: #### 4 8716 ####[facility] [address] [place] [address] [id number] [facility] HCO3 (Bld) [Moles/Vol] 20.5 mmol/L Low 22.0-26.0 [facility] Comment on above: Performed By: #### 4 8716 ####[facility] [address] [place] [address] [id number] [facility] Hematocrit (Bld) [Volume fraction] 30.3 % Low 41.0-53.0 [facility] Comment on above: Performed By: #### 4 8716 ####[facility] [address] [place] [address] [id number] [facility] Hemoglobin (Bld) [Mass/Vol] 9.9 g/dL Low 13.5-17.5 [facility] Comment on above: Performed By: #### 4 8716 ####[facility] [address] [address] [id number] [facility] LACTIC ACID, WHOLE BLOOD 0.8 mmol/L Normal 0.6-2.0 [facility] Comment on above: Performed By: #### 4 8716 ####[facility] [address] [address] [id number] [facility] METHEMOGLOBIN < Normal 0.0-2.0 [facility] Comment on above: Performed By: #### 4 8716 ####[facility] [address] [address] [id number] [facility] O2HB 98.1 % High 94.0-98.0 [facility] Comment on above: Performed By: #### 4 8716 ####[facility] [address] [address] [id number] [facility] Oxygen saturation in Blood 99.5 % High 92.0-99.0 [facility] Comment on above: Performed By: #### 4 8716 ####[facility] [address] [address] [id number] [facility] PCO2 ARTERIAL 40.1 mm Hg Normal 35.0-45.0 [facility] Comment on above: Performed By: #### 4 8716 ####[facility] [address] [address] [id number] [facility] PEEP RAD 8 [facility] Comment on above: Performed By: #### 4 8716 ####[facility] [address] [address] [id number] [facility] PH ARTERIAL 7.32 Low 7.35-7.45 [facility] Comment on above: Performed By: #### 4 8716 ####[facility] [address] [address] [id number] [facility] PO2 ARTERIAL 152 mm Hg High 75-85 [facility] Comment on above: Performed By: #### 4 8716 ####[facility] [address] [address] [id number] [facility] Potassium [Moles/Vol] 3.8 mmol/L Normal 3.5-5.1 [facility] Comment on above: Performed By: #### 4 8716 ####[facility] [address] [address] [id number] [facility] RESP RATE RAD 16 [facility] Comment on above: Performed By: #### 4 8716 ####[facility] [address] [address] [id number] [facility] Sodium [Moles/Vol] 130 mmol/L Low 135-145 [facility] Comment on above: Performed By: #### 4 8716 ####[facility] [address] [address] [id number] [facility] TIDAL VOLUME RAD 450 [facility] Comment on above: Performed By: #### 4 8716 ####[facility] [address] [address] [id number] [facility] POC GLUCOSE - [facility] 025 Glucose [Mass/Vol] 121 mg/dL [facility] 65-99 [facility] Comment on above: Performed By: #### 4 6932 ####[facility] [address] [address] [id number] [facility] Glucose [Mass/Vol] 114 mg/dL [address] Comment on above: Performed By: #### 4 6932 ####[facility] [address] [address] [id number] [facility] Glucose [Mass/Vol] 123 mg/dL [address] Comment on above: Performed By: #### 4 6932 ####[facility] [address] [address] [id number] [facility] Glucose [Mass/Vol] 133 mg/dL [address] Comment on above: Performed By: #### 4 6932 ####[facility] [address] [address] [id number] [facility] Urine Cultureon 01-23-2025 [facility] Culture exhibits no growth. [facility] Comment on above: Performed By: #### L 509.7001, L100.0100, L503.6005, L503.7505, L501.3620, L500.2500, L501.5200, L500.3400 #### [facility] [address] [place], [address] VANCOMYCIN LEVEL, RANDOMon 0 01-23-2025 VANCOMYCIN RANDOM 11.5 mcg/mL [facility] Comment on above: Order Comment: As of 02/2022 vancomycin dosing for [facility] inpatients will be done by Bayesian dosing software rather than off traditional trough values. Please contact the site specific inpatient pharmacy before making dose changes off of trough values alone for admitted patients.No established reference range. Performed By: #### 4 6651 ####[facility] [address] [place], [place] [address] Wojciech Oneal M.D. [id number] XR CHEST PA/APon 01-23-2025 XR CHEST PA/AP [facility] Comment on above: Order Comment: Injur y/Trauma or Illness?:Illness/OtherHow long have you had these symptoms (acute/chronic)?:AcuteReason for exam?:Respiratory statusHistory of cancer?:unkSurgeries, chemotherapy, or radiation?:unkType of Exam?:InitialAdditional signs and symptoms?:na 12 Lead EKGon 01-22-2025 12 Lead EKG [facility] [address] [place] [address] 12 Lead EKG 01/22/25 0512 MR#: [id number] Acct: [id number] Name: JAK TANNER Rep #: [id number] : 1955 69 From: Austin Ryan MD [...] replaced Atrial fibrillation Confirmed by Austin Ryan ([id number]), news video editor ELVA YIP ([id number]) on 01/27/2025 5:48:47 AM Referred By: CRISTAL Confirmed By: Austin Ryan 01/27/25 0548 Date Austin Ryan MD CC: See Bee DO; [facility] Signed Normal [facility] ABORH VERIFICATIONon 025 ABO and Rh group Nom (Bld) Blood group O Rh(D) positive [facility] Comment on above: Performed By: #### 7 8707 ####[facility] [address] [facility] [address] Radha Kelsey MD [id number] [facility] ABO and Rh group Nom (Bld) ABO/Rh Verification [facility] Comment on above: Result Comment: Theresa ent's ABO/Rh is verified. Performed By: #### 4 8787 ####[facility] [address] [address] Radha Kelsey MD [id number] [facility] Absolute lymphocyte countOrd ered By: See Bee on 01-22-2025 Lymphocytes Auto (Unsp spec) [#/Vol] 0.80 10*3/uL Low 0.83-4.51 [facility] Absolute neutrophil countOrd ered By: See Bee on 01-22-2025 Neutrophils (Bld) [#/Vol] 23.6 10*3/uL High 2.0-7.7 [facility] Anion gap in Serum or Plasma Ordered By: See Bee on 01-22-2025 Anion gap [Moles/Vol] 16 mmol/L High 5-15 [facility] BASIC METABOLIC PANELon 01-12 Anion gap [Moles/Vol] 19 mmol/L Normal 10-20 [facility] Comment on above: Order Comment: [facility] has implemented the eGFR calculation approach that does not have a coefficient for race that conforms to the NKF-ASN Task Force Recommendations. Performed By: #### 4 6124 ####[facility] [address] [id number] Wojciech Oneal M.D. [id number] Calcium [Mass/Vol] 7.5 mg/dL Low 8.4-10.2 [facility] Comment on above: Order Comment: [facility] has implemented the eGFR calculation approach that does not have a coefficient for race that conforms to the NKF-ASN Task Force Recommendations. Performed By: #### 4 6124 ####[facility] [address] [id number] Wojciech Oneal M.D. [id number] Chloride [Moles/Vol] 97 mmol/L Low 98-108 [facility] Comment on above: Order Comment: [facility] has implemented the eGFR calculation approach that does not have a coefficient for race that conforms to the NKF-ASN Task Force Recommendations. Performed By: #### 4 6124 ####[facility] [address] [address] Wojciech Oneal M.D. [id number] Creatinine [Mass/Vol] 3.62 mg/dL High 0.80-1.30 [facility] Comment on above: Order Comment: [facility] has implemented the eGFR calculation approach that does not have a coefficient for race that conforms to the NKF-ASN Task Force Recommendations. Performed By: #### 4 6124 ####[facility] [address] [address] Wojciech Oneal M.D. [id number] EGFR 17 mL/min/1.73 m2 Low >=60 [facility] Comment on above: Order Comment: [facility] has implemented the eGFR calculation approach that does not have a coefficient for race that conforms to the NKF-ASN Task Force Recommendations. Result Comment: Chelsea mated GFR was calculated using the 2020 CKD-EPI creatinine equation. Performed By: #### 4 6124 ####[facility] [address] [address] Wojciech Oneal M.D. [id number] Glucose [Mass/Vol] 131 mg/dL High 65-99 [facility] Comment on above: Order Comment: [facility] has implemented the eGFR calculation approach that does not have a coefficient for race that conforms to the NKF-ASN Task Force Recommendations. Performed By: #### 4 6124 ####[facility] [address] [id number] Wojciech Oneal M.D. [id number] HCO3 (Bld) [Moles/Vol] 18 mmol/L Low 21-32 [facility] Comment on above: Order Comment: [facility] has implemented the eGFR calculation approach that does not have a coefficient for race that conforms to the NKF-ASN Task Force Recommendations. Performed By: #### 4 6124 ####[facility] [address] [id number] Wojciech Oneal M.D. [id number] Potassium [Moles/Vol] 4.0 mmol/L Normal 3.5-5.1 [facility] Comment on above: Order Comment: [facility] has implemented the eGFR calculation approach that does not have a coefficient for race that conforms to the NKF-ASN Task Force Recommendations. Performed By: #### 4 6124 ####[facility] [address] [address] Wojciech Oneal M.D. [id number] Sodium [Moles/Vol] 130 mmol/L Low 135-145 [facility] Comment on above: Order Comment: [facility] has implemented the eGFR calculation approach that does not have a coefficient for race that conforms to the NKF-ASN Task Force Recommendations. Performed By: #### 4 6124 ####[facility] [address] [address] Wojciech Oneal M.D. [id number] Urea nitrogen [Mass/Vol] 62 mg/dL High 8-25 [facility] Comment on above: Order Comment: [facility] has implemented the eGFR calculation approach that does not have a coefficient for race that conforms to the NKF-ASN Task Force Recommendations. Performed By: #### 4 6124 ####[facility] [address] [address] Wojciech Oneal M.D. [id number] Urea nitrogen/Creatinine [Mass ratio] 17.1 mg/mg Normal 10.0-20.0 [facility] Comment on above: Order Comment: [facility] has implemented the eGFR calculation approach that does not have a coefficient for race that conforms to the NKF-ASN Task Force Recommendations. Performed By: #### 4 6124 ####[facility] [address] [address] Wojciech Oneal M.D. [id number] BETA-HYDROXYBUTYRATEon 01-22 BETA-HYDROXYBUTYRATE 0.4 mmol/L High 0.0-0.3 [facility] Comment on above: Performed By: #### 4 5139 ####[facility] [address] [id number] Wojciech Oneal M.D. [id number] BLOOD CULTURE AEROBIC/ANAERO BICon 01-22-2025 BLOOD CULTURE AEROBIC/ANAEROBIC BLOOD CULTURE No Growth after [address] [facility] Comment on above: Performed By: #### 4 4014 ####[facility] [address] [address] Tuan Ascencio M.D. [id number] BUN/creatinine ratioOrdered By: See Bee on 01-22-2025 Urea nitrogen/Creatinine [Mass ratio] 16.5 mg/mg - [facility] Basic Metabolic Profile (BMP )on 01-22-2025 BUN/CRE 16.5 RATIO Normal - [facility] Comment on above: Order Comment: REDRA W. PREVIOUS SPECIMEN REJECTED DUE TO RESULTS NOT COMING THROUGH AND SEEM TO BE ERRONEOUS. 01/22/25219 Mora Patel. NOTIFIED DELMY FOR REDRAW Performed By: #### L 509.7001, L100.0100, L503.6005, L503.7505, L501.3620, L500.2500, L501.5200, L500.3400 #### [facility] [address] [place], [address] Calcium [Mass/Vol] 7.2 mg/dL Low 7.6-11.0 [facility] Comment on above: Order Comment: REDRA W. PREVIOUS SPECIMEN REJECTED DUE TO RESULTS NOT COMING THROUGH AND SEEM TO BE ERRONEOUS. 01/22/25219 Mora Patel. NOTIFIED DELMY FOR REDRAW Performed By: #### L 509.7001, L100.0100, L503.6005, L503.7505, L501.3620, L500.2500, L501.5200, L500.3400 #### [facility] [address] [place], [address] Chloride [Moles/Vol] 95 mmol/L Low 98-[address] [facility] Comment on above: Order Comment: REDRA W. PREVIOUS SPECIMEN REJECTED DUE TO RESULTS NOT COMING THROUGH AND SEEM TO BE ERRONEOUS. 01/22/25219 Mora Patel. NOTIFIED DELMY FOR REDRAW Performed By: #### L 509.7001, L100.0100, L503.6005, L503.7505, L501.3620, L500.2500, L501.5200, L500.3400 #### [facility] [address] [place], [address] CO2 [Moles/Vol] 18.1 mmol/L Low 21.0-32.0 [facility] Comment on above: Order Comment: REDRA W. PREVIOUS SPECIMEN REJECTED DUE TO RESULTS NOT COMING THROUGH AND SEEM TO BE ERRONEOUS. 01/22/25219 Mora Patel. NOTIFIED DELMY FOR REDRAW Performed By: #### L 509.7001, L100.0100, L503.6005, L503.7505, L501.3620, L500.2500, L501.5200, L500.3400 #### [facility] [address] [place], [address] Creatinine [Mass/Vol] 3.55 mg/dL High 0.70-1.20 [facility] Comment on above: Order Comment: REDRA W. PREVIOUS SPECIMEN REJECTED DUE TO RESULTS NOT COMING THROUGH AND SEEM TO BE ERRONEOUS. 01/22/25219 Mora Patel. NOTIFIED DELMY FOR REDRAW Performed By: #### L 509.7001, L100.0100, L503.6005, L503.7505, L501.3620, L500.2500, L501.5200, L500.3400 #### [facility] [address] [place], [address] ECRCL 30.43 ml/min Low 50-250 [facility] Comment on above: Order Comment: REDRA W. PREVIOUS SPECIMEN REJECTED DUE TO RESULTS NOT COMING THROUGH AND SEEM TO BE ERRONEOUS. 01/22/25219 Mora Patel. NOTIFIED DELMY FOR REDRAW Performed By: #### L 509.7001, L100.0100, L503.6005, L503.7505, L501.3620, L500.2500, L501.5200, L500.3400 #### [facility] [address] [place], [address] GAP 16 High 5-15 [facility] Comment on above: Order Comment: REDRA W. PREVIOUS SPECIMEN REJECTED DUE TO RESULTS NOT COMING THROUGH AND SEEM TO BE ERRONEOUS. 01/22/25219 Mora Patel. NOTIFIED DELMY FOR REDRAW Performed By: #### L 509.7001, L100.0100, L503.6005, L503.7505, L501.3620, L500.2500, L501.5200, L500.3400 #### [facility] [address] [place], [address] GFR/1.73 sq M.predicted among non-blacks MDRD (S/P/Bld) [Vol rate/Area] 18 mL/min/{1.73_m2} Low >60 [facility] Comment on above: Order Comment: REDRA W. PREVIOUS SPECIMEN REJECTED DUE TO RESULTS NOT COMING THROUGH AND SEEM TO BE ERRONEOUS. 01/22/25219 Mora Patel. NOTIFIED DELMY FOR REDRAW Result Comment: mL/m in/1.73m2 CKD-EPI Creatinine Equation (2020) Performed By: #### L 509.7001, L100.0100, L503.6005, L503.7505, L501.3620, L500.2500, L501.5200, L500.3400 #### [facility] [address] [place], [address] Glucose [Mass/Vol] 121 mg/dL High 70-99 [facility] Comment on above: Order Comment: REDRA W. PREVIOUS SPECIMEN REJECTED DUE TO RESULTS NOT COMING THROUGH AND SEEM TO BE ERRONEOUS. 01/22/25219 Mora Patel. NOTIFIED DELMY FOR REDRAW Performed By: #### L 509.7001, L100.0100, L503.6005, L503.7505, L501.3620, L500.2500, L501.5200, L500.3400 #### [facility] [address] [place], [address] Potassium [Moles/Vol] 4.1 mmol/L Normal 3.3-5.1 [facility] Comment on above: Order Comment: REDRA W. PREVIOUS SPECIMEN REJECTED DUE TO RESULTS NOT COMING THROUGH AND SEEM TO BE ERRONEOUS. 01/22/25219 Mora Patel. NOTIFIED DELMY FOR REDRAW Performed By: #### L 509.7001, L100.0100, L503.6005, L503.7505, L501.3620, L500.2500, L501.5200, L500.3400 #### [facility] [address] [place], [address] Sodium [Moles/Vol] 129 mmol/L Low 133-145 [facility] Comment on above: Order Comment: REDRA W. PREVIOUS SPECIMEN REJECTED DUE TO RESULTS NOT COMING THROUGH AND SEEM TO BE ERRONEOUS. 01/22/25219 Mora Patel. NOTIFIED DELMY FOR REDRAW Performed By: #### L 509.7001, L100.0100, L503.6005, L503.7505, L501.3620, L500.2500, L501.5200, L500.3400 #### [facility] [address] [place], [address] Urea nitrogen [Mass/Vol] 59 mg/dL High [address] Comment on above: Order Comment: REDRA W. PREVIOUS SPECIMEN REJECTED DUE TO RESULTS NOT COMING THROUGH AND SEEM TO BE ERRONEOUS. 01/22/25219 Mora Patel. NOTIFIED DELMY FOR REDRAW Performed By: #### L 509.7001, L100.0100, L503.6005, L503.7505, L501.3620, L500.2500, L501.5200, L500.3400 #### [facility] [address] [place], [address] BUN Normal [address] [place] [address] Comment on above: Result Comment: REDR AW. PREVIOUS SPECIMEN REJECTED DUE TO RESULTS NOT COMING THROUGH AND SEEM TO BE ERRONEOUS. 01/22/25219 Mora Patel. NOTIFIED DELMY FOR REDRAW Performed By: #### L 509.7001, L100.0100, L503.6005, L503.7505, L501.3620, L500.2500, L501.5200, L500.3400 #### [facility] [address] [place], [address] BUN/CRE Normal 10-20 [facility] Comment on above: Result Comment: REDR AW. PREVIOUS SPECIMEN REJECTED DUE TO RESULTS NOT COMING THROUGH AND SEEM TO BE ERRONEOUS. 01/22/25219 Mora Patel. NOTIFIED DELMY FOR REDRAW Performed By: #### L 509.7001, L100.0100, L503.6005, L503.7505, L501.3620, L500.2500, L501.5200, L500.3400 #### [facility] [address] [place], [address] Calcium Normal 7.6-11.0 [facility] Comment on above: Result Comment: REDR AW. PREVIOUS SPECIMEN REJECTED DUE TO RESULTS NOT COMING THROUGH AND SEEM TO BE ERRONEOUS. 01/22/25219 Mora Patel. NOTIFIED DELMY FOR REDRAW Performed By: #### L 509.7001, L100.0100, L503.6005, L503.7505, L501.3620, L500.2500, L501.5200, L500.3400 #### [facility] [address] [place], [address] CL Normal 98-108 [facility] Comment on above: Result Comment: REDR AW. PREVIOUS SPECIMEN REJECTED DUE TO RESULTS NOT COMING THROUGH AND SEEM TO BE ERRONEOUS. 01/22/25219 Mora Patel. NOTIFIED DELMY FOR REDRAW Performed By: #### L 509.7001, L100.0100, L503.6005, L503.7505, L501.3620, L500.2500, L501.5200, L500.3400 #### [facility] [address] [place], [address] CO2 Normal 21.0-32.0 [facility] Comment on above: Result Comment: REDR AW. PREVIOUS SPECIMEN REJECTED DUE TO RESULTS NOT COMING THROUGH AND SEEM TO BE ERRONEOUS. 01/22/25219 Mora Patel. NOTIFIED DELMY FOR REDRAW Performed By: #### L 509.7001, L100.0100, L503.6005, L503.7505, L501.3620, L500.2500, L501.5200, L500.3400 #### [facility] [address] [place], [address] CREAT,SERUM Normal 0.70-1.20 [facility] Comment on above: Result Comment: REDR AW. PREVIOUS SPECIMEN REJECTED DUE TO RESULTS NOT COMING THROUGH AND SEEM TO BE ERRONEOUS. 01/22/25219 Mora Patel. NOTIFIED DELMY FOR REDRAW Performed By: #### L 509.7001, L100.0100, L503.6005, L503.7505, L501.3620, L500.2500, L501.5200, L500.3400 #### [facility] [address] [place], [address] eGFR Normal >60 [facility] Comment on above: Result Comment: REDR AW. PREVIOUS SPECIMEN REJECTED DUE TO RESULTS NOT COMING THROUGH AND SEEM TO BE ERRONEOUS. 01/22/25219 Mora Patel. NOTIFIED DELMY FOR REDRAW Performed By: #### L 509.7001, L100.0100, L503.6005, L503.7505, L501.3620, L500.2500, L501.5200, L500.3400 #### [facility] [address] [place], [address] GAP Normal 5-15 [facility] Comment on above: Result Comment: REDR AW. PREVIOUS SPECIMEN REJECTED DUE TO RESULTS NOT COMING THROUGH AND SEEM TO BE ERRONEOUS. 01/22/25219 Mora Patel. NOTIFIED DELMY FOR REDRAW Performed By: #### L 509.7001, L100.0100, L503.6005, L503.7505, L501.3620, L500.2500, L501.5200, L500.3400 #### [facility] [address] [place], [address] GLU Normal 70-99 [facility] Comment on above: Result Comment: REDR AW. PREVIOUS SPECIMEN REJECTED DUE TO RESULTS NOT COMING THROUGH AND SEEM TO BE ERRONEOUS. 01/22/25219 Mora Patel. NOTIFIED DELMY FOR REDRAW Performed By: #### L 509.7001, L100.0100, L503.6005, L503.7505, L501.3620, L500.2500, L501.5200, L500.3400 #### [facility] [address] [place], [address] Potassium Normal 3.3-5.1 [facility] Comment on above: Result Comment: REDR AW. PREVIOUS SPECIMEN REJECTED DUE TO RESULTS NOT COMING THROUGH AND SEEM TO BE ERRONEOUS. 01/22/25219 Mora Patel. NOTIFIED DELMY FOR REDRAW Performed By: #### L 509.7001, L100.0100, L503.6005, L503.7505, L501.3620, L500.2500, L501.5200, L500.3400 #### [facility] [address] [place], [address] Basic Metabolic Profile (BMP) Normal 133-145 [facility] Comment on above: Result Comment: REDR AW. PREVIOUS SPECIMEN REJECTED DUE TO RESULTS NOT COMING THROUGH AND SEEM TO BE ERRONEOUS. 01/22/25219 Mora Patel. NOTIFIED DELMY FOR REDRAW Performed By: #### L 509.7001, L100.0100, L503.6005, L503.7505, L501.3620, L500.2500, L501.5200, L500.3400 #### [facility] [address] [place], [address] Bilirubin Test strip Ql (U)O rdered By: See Bee on 01-22-2025 Bilirubin Ql (U) 3 mg/dL High Negative [facility] Comment on above: COLOR OF URINE MAY A FFECT DIPSTICK RESULTS. Bilirubin directOrdered By: See Bee on 01-22-2025 Bilirubin.direct [Mass/Vol] 1.16 mg/dL High 0.00-0.30 [facility] Bilirubin, totalOrdered By: See Bee on 01-22-2025 Bilirubin [Mass/Vol] 1.66 mg/dL High 0.00-1.[address] [facility] Blood lymphocytes/100 leukoc ytesOrdered By: See Bee on 01-22-2025 Lymphocytes/100 WBC (Bld) 3 % Low 19-41 [facility] Blood metamyelocytes/100 donnell kocytesOrdered By: See Bee on 01-22-2025 Metamyelocytes/100 WBC (Bld) 5 % High 0-1 [facility] Blood monocytes/100 leukocyt esOrdered By: See Bee on 01-22-2025 Monocytes/100 WBC (Bld) 4 % 0-10 W [facility] Blood segmented neutrophils/ 100 leukocytesOrdered By: See Bee on 01-22-2025 Segmented neutrophils/100 WBC (Bld) 88 % High 47-70 [facility] CALCIUM, IONIZEDon CALCIUM IONIZED 4.4 mg/dL Low 4.5-5.3 [facility] Comment on above: Performed By: #### 4 5190 ####[facility] [address] [id number] Wojciech Oneal M.D. [id number] CBC WITH AUTO DIFFERENTIALon 01-22-2025 AUTO NRBC 0.2 % Normal [facility] Comment on above: Performed By: #### L [id number] ####[facility] [address], [place] [address] Wojciech Oneal M.D. [id number] AUTO NRBC ABS COUNT 0.04 K/mcL High 0.00-0.00 [facility] Comment on above: Performed By: #### L [id number] ####[facility] [address] [place], [place] [address] Wojciech Oneal M.D. [id number] Erythrocyte distribution width (RBC) [Ratio] 12.8 % Normal 11.6-14.8 [facility] Comment on above: Performed By: #### L [id number] ####[facility] [address] [address] Wojciech Oneal M.D. [id number] Hematocrit (Bld) [Volume fraction] 32.4 % Low 41.0-53.0 [facility] Comment on above: Performed By: #### Jennifer [id number] ####[facility] [address] [address] Wojciech Oneal M.D. [id number] Hemoglobin (Bld) [Mass/Vol] 11.0 g/dL Low 13.5-17.5 [facility] Comment on above: Performed By: #### Jennifer [id number] ####[facility] [address] [address] Wojciech Oneal M.D. [id number] MCH (RBC) [Entitic mass] 30.1 pg Normal 26.0-34.0 [facility] Comment on above: Performed By: #### L [id number] ####[facility] [address] [address] Wojciech Oneal M.D. [id number] MCV (RBC) [Entitic vol] 88.8 fL Normal 80.0-100.0 [facility] Comment on above: Performed By: #### L [id number] ####[facility] [address] [address] Wojciech Oneal M.D. [id number] MEAN CORPUSCULAR HEMOGLOBIN CONC 34.0 g/dL Normal 31.0-37.0 [facility] Comment on above: Performed By: #### L [id number] ####[facility] [address] [address] Wojciech Oneal M.D. [id number] Platelet mean volume (Bld) [Entitic vol] 9.1 fL Low 9.4-12.4 [facility] Comment on above: Performed By: #### L [id number] ####[facility] [address] [address] Wojciech Oneal M.D. [id number] Platelets (Bld) [#/Vol] 310 10*3/uL Normal 150-400 [facility] Comment on above: Performed By: #### L [id number] ####[facility] [address] [address] Wojciech Oneal M.D. [id number] RBC (Bld) [#/Vol] 3.65 10*6/uL Low 4.50-5.90 [facility] Comment on above: Performed By: #### L [id number] ####[facility] [address] [address] Wojciech Oneal M.D. [id number] WBC (Bld) [#/Vol] 22.81 10*3/uL High 4.50-11.00 [facility] Comment on above: Performed By: #### L [id number] ####[facility] [address] [address] Wojciech Oneal M.D. [id number] AUTO NRBC 0.0 % Normal [facility] Comment on above: Order Comment: Abnor mal cells suspicious for blasts/immature cells. The results of the differential are pending the blood smear being sent to [facility] for special hematology tech or pathologist review. Performed By: #### L [id number] ####[facility] [address] [address] Wojciech Oneal M.D. [id number] AUTO NRBC ABS COUNT 0.00 K/mcL Normal 0.00-0.00 [facility] Comment on above: Order Comment: Abnor mal cells suspicious for blasts/immature cells. The results of the differential are pending the blood smear being sent to [facility] for special hematology tech or pathologist review. Performed By: #### L [id number] ####[facility] [address] [address] Wojciech Oneal M.D. [id number] Erythrocyte distribution width (RBC) [Ratio] 12.6 % Normal 11.6-14.8 [facility] Comment on above: Order Comment: Abnor mal cells suspicious for blasts/immature cells. The results of the differential are pending the blood smear being sent to [facility] for special hematology tech or pathologist review. Performed By: #### L [id number] ####[facility] [address] [address] Wojciech Oneal M.D. [id number] Hematocrit (Bld) [Volume fraction] 36.7 % Low 41.0-53.0 [facility] Comment on above: Order Comment: Abnor mal cells suspicious for blasts/immature cells. The results of the differential are pending the blood smear being sent to [facility] for special hematology tech or pathologist review. Performed By: #### L [id number] ####[facility] [address] [address] Wojciech Oneal M.D. [id number] Hemoglobin (Bld) [Mass/Vol] 12.0 g/dL Low 13.5-17.5 [facility] Comment on above: Order Comment: Abnor mal cells suspicious for blasts/immature cells. The results of the differential are pending the blood smear being sent to [facility] for special hematology tech or pathologist review. Performed By: #### L [id number] ####[facility] [address] [id number] Wojciech Oneal M.D. [id number] MCH (RBC) [Entitic mass] 28.9 pg Normal 26.0-34.0 [facility] Comment on above: Order Comment: Abnor mal cells suspicious for blasts/immature cells. The results of the differential are pending the blood smear being sent to [facility] for special hematology tech or pathologist review. Performed By: #### L [id number] ####[facility] [address] [address] Wojciech Oneal M.D. [id number] MCV (RBC) [Entitic vol] 88.4 fL Normal 80.0-100.0 [facility] Comment on above: Order Comment: Abnor mal cells suspicious for blasts/immature cells. The results of the differential are pending the blood smear being sent to [facility] for special hematology tech or pathologist review. Performed By: #### L [id number] ####[facility] [address] [address] Wojciech Oneal M.D. [id number] MEAN CORPUSCULAR HEMOGLOBIN CONC 32.7 g/dL Normal 31.0-37.0 [facility] Comment on above: Order Comment: Abnor mal cells suspicious for blasts/immature cells. The results of the differential are pending the blood smear being sent to [facility] for special hematology tech or pathologist review. Performed By: #### L [id number] ####[facility] [address] [address] Wojciech Oneal M.D. [id number] Platelet mean volume (Bld) [Entitic vol] 9.4 fL Normal 9.4-12.4 [facility] Comment on above: Order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 [id number] PLATELETS LARGE [facility] Comment on above: Performed By: #### L AB295 ####[facility] [address] [place] [address] Tuan Ascencio M.D. [id number] POLY SCAN Few [facility] Comment on above: Performed By: #### L AB295 ####[facility] [address] [place] [address] Tuan Ascencio M.D. [id number] RBC MORPH SCAN See Comment [facility] Comment on above: Result Comment: RBC Indices confirmed with manual peripheral smear review. Performed By: #### L AB295 ####[facility] [address] [place] [address] Tuan Ascencio M.D. [id number] VACUOLATED GRANULOCYTES Present [facility] Comment on above: Performed By: #### L AB295 ####[facility] [address] [place] [address] Tuan Ascencio M.D. [id number] Magnesiumon 01-22-2025 Magnesium [Mass/Vol] 2.1 mg/dL Normal 1.5-2.[address] [facility] Comment on above: Performed By: #### L 509.7001, L100.0100, L503.6005, L503.7505, L501.3620, L500.2500, L501.5200, L500.3400 #### [facility] [address] [place], [address] Magnesium [Mass/Vol] 2.5 mg/dL High 1.5-2.[address] [facility] Comment on above: Order Comment: [...] L503.6005, L503.7505, L501.3620, L500.2500, L501.5200, L500.3400 #### [facility] [address] [place], [address] Magnesium measurement (mass/ volume)Ordered By: See Bee on 01-22-2025 Magnesium (Unsp spec) [Mass/Vol] 2.1 mg/dL 1.5-2.2 [facility] Mean corpuscular hemoglobin (MCH) determinationOrdered By: See Bee on 01-22-2025 MCH (RBC) [Entitic mass] 29.7 pg 27.0-32.0 [facility] Mean corpuscular hemoglobin concentration (MCHC) determinationOrdered By: See Bee on 01-22-2025 MCHC (RBC) [Mass/Vol] 33.9 g/dL 32-36 [facility] Mean platelet volume determi nationOrdered By: See Bee on 01-22-2025 Platelet mean volume (Bld) [Entitic vol] 9.3 fL 6.2-12.0 [facility] Microscopic analysis of urin e for red blood cells (RBC)Ordered By: See Bee on 01-22-2025 Microscopic analysis of urine for red blood cells (RBC) 0-5 SEEN /hpf 0-5 [facility] Mucus LM Ql (Urine sed)Order ed By: See Bee on 01-22-2025 Mucus Ql (Urine sed) 0 SEEN /hpf [facility] Natriuretic peptide.B prohor evaristo N-Terminal [Mass/volume] in Serum or PlasmaOrdered By: See Bee on 01-22-2025 Natriuretic peptide.B prohormone N-Terminal [Mass/Vol] 1427 pg/mL High <900 [facility] Comment on above: Heart Failure Unlike ly: < 300 pg/mLHeart Failure Likely< 50 Years: > 450 pg/mL50-75 Years: > 900 pg/mL>75 Years: > 1800 pg/mL Nitrite Test strip Ql (U)Ord ered By: See Bee on 01-22-2025 Nitrite Ql (U) Positive High Negative [facility] OP NOTEon 01-22-[address] [facility] PERIPHERAL SMEAR REVIEW ([facility] ONLY)on 01-22-2025 SMEAR REVIEW See Comment Normal [facility] Comment on above: Result Comment: Smea r reviewed for possible immature cells. Performed By: #### C 28425 ####[facility] [address] [address] Tuan Ascencio M.D. [id number] PHOSPHORUSon 01-22-2025 Phosphate [Mass/Vol] 6.6 mg/dL High 2.3-3.7 [facility] Comment on above: Performed By: #### 4 6299 ####[facility] [address] [address] Wojciech Oneal M.D. [id number] POC ARTERIAL BLOOD GAS PANEL -[facility] 01-22-2025 BASE EXCESS, ARTERIAL -7.7 Low -2.0-2.0 [facility] Comment on above: Performed By: #### 4 8716 ####[facility] [address] [address] [id number] [facility] CALCIUM IONIZED 4.0 mg/dL Low 4.5-5.3 [facility] Comment on above: Performed By: #### 4 8716 ####[facility] [address] [address] [id number] [facility] CARBOXYHEMOGLOBIN 1.3 % of total Hb Normal <=1.5 [facility] Comment on above: Result Comment: Refe rence Ranges:[facility] Non-smokers: <1.5%Smokers: 1.5-5.0%Heavy Smokers: 5.0-9.0% Performed By: #### 4 8716 ####[facility] [address] [address] [id number] [facility] Chloride [Moles/Vol] 105 mmol/L Normal 98-108 [facility] Comment on above: Performed By: #### 4 8716 ####[facility] [address] [address] [id number] [facility] FIO2 [address] [facility] Comment on above: Performed By: #### 4 8716 ####[facility] [address] [address] [id number] [facility] Glucose [Mass/Vol] 120 mg/dL High 65-99 [facility] Comment on above: Performed By: #### 4 8716 ####[facility] [address] [place] [address] [id number] [facility] HCO3 (Bld) [Moles/Vol] 19.2 mmol/L Low 22.0-26.0 [facility] Comment on above: Performed By: #### 4 8716 ####[facility] [address] [place] [address] [id number] [facility] Hematocrit (Bld) [Volume fraction] 29.9 % Low 41.0-53.0 [facility] Comment on above: Performed By: #### 4 8716 ####[facility] [address] [address] [id number] [facility] Hemoglobin (Bld) [Mass/Vol] 9.8 g/dL Low 13.5-17.5 [facility] Comment on above: Performed By: #### 4 8716 ####[facility] [address] [place] [address] [id number] [facility] LACTIC ACID, WHOLE BLOOD 0.9 mmol/L Normal 0.6-2.0 [facility] Comment on above: Performed By: #### 4 8716 ####[facility] [address] [address] [id number] [facility] METHEMOGLOBIN < Normal 0.0-2.0 [facility] Comment on above: Performed By: #### 4 8716 ####[facility] [address] [place] [address] [id number] [facility] O2HB 97.6 % Normal 94.0-98.0 [facility] Comment on above: Performed By: #### 4 8716 ####[facility] [address] [address] [id number] [facility] Oxygen saturation in Blood 99.3 % High 92.0-99.0 [facility] Comment on above: Performed By: #### 4 8716 ####[facility] [address] [address] [id number] [facility] PCO2 ARTERIAL 43.9 mm Hg Normal 35.0-45.0 [facility] Comment on above: Performed By: #### 4 8716 ####[facility] [address] [place] [address] [id number] [facility] PEEP RAD 10 [facility] Comment on above: Performed By: #### 4 8716 ####[facility] [address] [place] [address] [id number] [facility] PH ARTERIAL 7.25 Low 7.35-7.45 [facility] Comment on above: Performed By: #### 4 8716 ####[facility] [address] [address] [id number] [facility] PO2 ARTERIAL 162 mm Hg High 75-85 [facility] Comment on above: Performed By: #### 4 8716 ####[facility] [address] [address] [id number] [facility] Potassium [Moles/Vol] 3.6 mmol/L Normal 3.5-5.1 [facility] Comment on above: Performed By: #### 4 8716 ####[facility] [address] [address] [id number] [facility] RESP RATE RAD 16 [facility] Comment on above: Performed By: #### 4 8716 ####[facility] [address] [address] [id number] [facility] Sodium [Moles/Vol] 132 mmol/L Low 135-145 [facility] Comment on above: Performed By: #### 4 8716 ####[facility] [address] [place] [address] [id number] [facility] TIDAL VOLUME RAD 450 [facility] Comment on above: Performed By: #### 4 8716 ####[facility] [address] [address] [id number] [facility] BASE EXCESS, ARTERIAL -7.9 Low -2.0-2.0 [facility] Comment on above: Order Comment: Criti johnie result acted upon time of test. Test performed at bedside. Performed By: #### 4 8716 ####[facility] [address] [address] [id number] [facility] CALCIUM IONIZED 4.3 mg/dL Low 4.5-5.3 [facility] Comment on above: Order Comment: Criti johnie result acted upon time of test. Test performed at bedside. Performed By: #### 4 8716 ####[facility] [address] [address] [id number] [facility] CARBOXYHEMOGLOBIN 1.3 % of total Hb Normal <=1.5 [facility] Comment on above: Order Comment: Criti johnie result acted upon time of test. Test performed at bedside. Result Comment: Refe rence Ranges:[place] Non-smokers: <1.5%Smokers: 1.5-5.0%Heavy Smokers: 5.0-9.0% Performed By: #### 4 8716 ####[facility] [address] [address] [id number] [facility] FIO2 [address] [facility] Comment on above: Order Comment: Criti johnie result acted upon time of test. Test performed at bedside. Performed By: #### 4 8716 ####[facility] [address] [address] [id number] [facility] Glucose [Mass/Vol] 134 mg/dL High 65-99 [facility] Comment on above: Order Comment: Criti johnie result acted upon time of test. Test performed at bedside. Performed By: #### 4 8716 ####[facility] [address] [address] [id number] [facility] HCO3 (Bld) [Moles/Vol] 20.4 mmol/L Low 22.0-26.0 G [facility] Comment on above: Order Comment: Criti johnie result acted upon time of test. Test performed at bedside. Performed By: #### 4 8716 ####[facility] [address] [address] [id number] [facility] Hematocrit (Bld) [Volume fraction] 33.3 % Low 41.0-53.0 [facility] Comment on above: Order Comment: Criti johnie result acted upon time of test. Test performed at bedside. Performed By: #### 4 8716 ####[facility] [address] [address] [id number] [facility] Hemoglobin (Bld) [Mass/Vol] 10.8 g/dL Low 13.5-17.5 [facility] Comment on above: Order Comment: Criti johnie result acted upon time of test. Test performed at bedside. Performed By: #### 4 8716 ####[facility] [address] [address] [id number] [facility] LACTIC ACID, WHOLE BLOOD 1.7 mmol/L Normal 0.6-2.0 [facility] Comment on above: Order Comment: Criti johnie result acted upon time of test. Test performed at bedside. Performed By: #### 4 8716 ####[facility] [address] [address] [id number] [facility] METHEMOGLOBIN 0.8 % Normal 0.0-2.0 [facility] Comment on above: Order Comment: Criti johnie result acted upon time of test. Test performed at bedside. Performed By: #### 4 [id number] ####[facility] [address] [address] [id number] [facility] O2HB 97.3 % Normal 94.0-98.0 [facility] Comment on above: Order Comment: Criti johnie result acted upon time of test. Test performed at bedside. Performed By: #### 4 [id number] ####[facility] [address] [address] [id number] [facility] Oxygen saturation in Blood 99.4 % High 92.0-99.0 [facility] Comment on above: Order Comment: Criti johnie result acted upon time of test. Test performed at bedside. Performed By: #### 4 [id number] ####[facility] [address] [address] [id number] [facility] PCO2 ARTERIAL 57.7 mm Hg High 35.0-45.0 [facility] Comment on above: Order Comment: Criti johnie result acted upon time of test. Test performed at bedside. Performed By: #### 4 [id number] ####[facility] [address] [address] [id number] [facility] PH ARTERIAL 7.18 Off scale low 7.35-7.45 [facility] Comment on above: Order Comment: Criti johnie result acted upon time of test. Test performed at bedside. Performed By: #### 4 [id number] ####[facility] [address] [address] [id number] [facility] PO2 ARTERIAL 255 mm Hg High 75-85 [facility] Comment on above: Order Comment: Criti johnie result acted upon time of test. Test performed at bedside. Performed By: #### 4 [id number] ####[facility] [address] [address] [id number] [facility] Potassium [Moles/Vol] 3.8 mmol/L Normal 3.5-5.1 [facility] Comment on above: Order Comment: Criti johnie result acted upon time of test. Test performed at bedside. Performed By: #### [id number] ####[facility] [address] [address] [id number] GMCPOC Sodium [Moles/Vol] 130 mmol/L Low 135-145 [facility] Comment on above: Order Comment: Criti johnie result acted upon time of test. Test performed at bedside. Performed By: #### 4 [id number] ####[facility] [address] [address] [id number] GMCPOC BASE EXCESS, ARTERIAL -10.9 Low -2.0-2.0 [facility] Comment on above: Order Comment: Criti johnie result acted upon time of test. Test performed at bedside. CALCIUM IONIZED 4.3 mg/dL Low 4.5-5.3 [facility] Comment on above: Order Comment: Criti johnie result acted upon time of test. Test performed at bedside. CARBOXYHEMOGLOBIN 1.0 % of total Hb Normal <=1.5 [facility] Comment on above: Order Comment: Criti johnie result acted upon time of test. Test performed at bedside. Result Comment: Refe chingce Ranges:Suburban Non-smokers: <1.5%Smokers: 1.5-5.0%Heavy Smokers: 5.0-9.0% Chloride [Moles/Vol] 103 mmol/L Normal 98-108 [facility] Comment on above: Order Comment: Criti johnie result acted upon time of test. Test performed at bedside. Glucose [Mass/Vol] 135 mg/dL High 65-99 [facility] Comment on above: Order Comment: Criti johnie result acted upon time of test. Test performed at bedside. HCO3 (Bld) [Moles/Vol] 17.6 mmol/L Low 22.0-26.0 [facility] Comment on above: Order Comment: Criti johnie result acted upon time of test. Test performed at bedside. Hematocrit (Bld) [Volume fraction] 31.6 % Low 41.0-53.0 [facility] Comment on above: Order Comment: Criti johnie result acted upon time of test. Test performed at bedside. Hemoglobin (Bld) [Mass/Vol] 10.3 g/dL Low 13.5-17.5 [facility] Comment on above: Order Comment: Criti johnie result acted upon time of test. Test performed at bedside. LACTIC ACID, WHOLE BLOOD 2.6 mmol/L High 0.6-2.0 [facility] Comment on above: Order Comment: Criti johnie result acted upon time of test. Test performed at bedside. METHEMOGLOBIN < Normal 0.0-2.0 [facility] Comment on above: Order Comment: Criti johnie result acted upon time of test. Test performed at bedside. O2HB 96.8 % Normal 94.0-98.0 [facility] Comment on above: Order Comment: Criti johnie result acted upon time of test. Test performed at bedside. Oxygen saturation in Blood 98.7 % Normal 92.0-99.0 [facility] Comment on above: Order Comment: Criti johnie result acted upon time of test. Test performed at bedside. PCO2 ARTERIAL 50.2 mm Hg High 35.0-45.0 [facility] Comment on above: Order Comment: Criti johnie result acted upon time of test. Test performed at bedside. PH ARTERIAL 7.15 Off scale low 7.35-7.45 [facility] Comment on above: Order Comment: Criti johnie result acted upon time of test. Test performed at bedside. PO2 ARTERIAL 182 mm Hg High 75-85 [facility] Comment on above: Order Comment: Criti johnie result acted upon time of test. Test performed at bedside. Potassium [Moles/Vol] 4.1 mmol/L Normal 3.5-5.1 [facility] Comment on above: Order Comment: Criti johnie result acted upon time of test. Test performed at bedside. RESULT NOTIFICATION critical results given to treating OR anesthesiolo Normal [facility] Comment on above: Order Comment: Criti johnie result acted upon time of test. Test performed at bedside. Sodium [Moles/Vol] 131 mmol/L Low 135-145 [facility] Comment on above: Order Comment: Criti johnie result acted upon time of test. Test performed at bedside. POC GLUCOSE - [facility] 025 Glucose [Mass/Vol] 141 mg/dL [place] [address] [place] [address] Comment on above: Performed By: #### 4 [id number] ####[facility] [address] [address] [id number] [facility] Glucose [Mass/Vol] 146 mg/dL [address] Comment on above: Performed By: #### 4 [id number] ####[facility] [address] [address] [id number] [facility] POC VENOUS BLOOD GAS PANEL-P ULM - [facility] 01-22-2025 BASE EXCESS, VENOUS -8.9 Low -2.0-2.0 [facility] Comment on above: Order Comment: Criti johnie result acted upon time of test. Test performed at bedside. CALCIUM IONIZED 4.2 mg/dL Low 4.5-5.3 [facility] Comment on above: Order Comment: Criti johnie result acted upon time of test. Test performed at bedside. CARBOXYHEMOGLOBIN 1.2 % of total Hb Normal <=1.5 [facility] Comment on above: Order Comment: Criti johnie result acted upon time of test. Test performed at bedside. Result Comment: Refe arleth Ranges:Suburban Non-smokers: <1.5%Smokers: 1.5-5.0%Heavy Smokers: 5.0-9.0% Chloride [Moles/Vol] 99 mmol/L Normal 98-108 [facility] Comment on above: Order Comment: Criti johnie result acted upon time of test. Test performed at bedside. Glucose [Mass/Vol] 124 mg/dL High 65-99 [facility] Comment on above: Order Comment: Criti johnie result acted upon time of test. Test performed at bedside. HCO3 (Bld) [Moles/Vol] 20.8 mmol/L Low 24.0-28.0 [facility] Comment on above: Order Comment: Criti johnie result acted upon time of test. Test performed at bedside. Hematocrit (Bld) [Volume fraction] 40.4 % Low 41.0-53.0 [facility] Comment on above: Order Comment: Criti johnie result acted upon time of test. Test performed at bedside. Hemoglobin (Bld) [Mass/Vol] 13.2 g/dL Low 13.5-17.5 [facility] Comment on above: Order Comment: Criti johnie result acted upon time of test. Test performed at bedside. LACTIC ACID, WHOLE BLOOD 2.4 mmol/L High 0.6-2.0 [facility] Comment on above: Order Comment: Criti johnie result acted upon time of test. Test performed at bedside. METHEMOGLOBIN < Normal 0.0-2.0 [facility] Comment on above: Order Comment: Criti johnie result acted upon time of test. Test performed at bedside. O2HB 39.5 % Normal No established reference range [facility] Comment on above: Order Comment: Criti johnie result acted upon time of test. Test performed at bedside. Oxygen saturation in Blood 40.3 % Normal 40.0-70.0 [facility] Comment on above: Order Comment: Criti johnie result acted upon time of test. Test performed at bedside. PCO2 VENOUS 61.0 mm Hg High 41.0-51.0 [facility] Comment on above: Order Comment: Criti johnie result acted upon time of test. Test performed at bedside. PH VENOUS 7.14 Off scale low 7.32-7.42 [facility] Comment on above: Order Comment: Criti johnie result acted upon time of test. Test performed at bedside. PO2 VENOUS 31 mm Hg Normal 25-40 [facility] Comment on above: Order Comment: Criti johnie result acted upon time of test. Test performed at bedside. Potassium [Moles/Vol] 4.1 mmol/L Normal 3.5-5.1 [facility] Comment on above: Order Comment: Criti johnie result acted upon time of test. Test performed at bedside. RESULT NOTIFICATION critical results given to treating OR anesthesiolo Normal [facility] Comment on above: Order Comment: Criti johnie result acted upon time of test. Test performed at bedside. Sodium [Moles/Vol] 131 mmol/L Low 135-145 [facility] Comment on above: Order Comment: Criti johnie result acted upon time of test. Test performed at bedside. Platelet countOrdered By: Yumiko Bee on 01-22-2025 Platelets (Bld) [#/Vol] 358 10*3/uL 150-450 [facility] Potassium measurement (mass/ volume)Ordered By: See Bee on 01-22-2025 Potassium (Unsp spec) [Mass/Vol] 4.1 mmol/L 3.3-5.1 [facility] Pro- Brain NATRIURETIC PEPTI Ashlee 01-22-2025 Natriuretic peptide B (Bld) [Mass/Vol] 1427 pg/mL High <=900 [facility] Comment on above: Result Comment: Hear t Failure Unlikely: < 300 pg/mL Heart Failure Likely < 50 Years: > 450 pg/mL 50-75 Years: > 900 pg/mL >75 Years: > 1800 pg/mL Performed By: #### L 509.7001, L100.0100, L503.6005, L503.7505, L501.3620, L500.2500, L501.5200, L500.3400 #### [facility] [address] [place], [address] Natriuretic peptide B (Bld) [Mass/Vol] 1765 pg/mL High <=900 [facility] Comment on above: Order Comment: REDRA [...] L503.6005, L503.7505, L501.3620, L500.2500, L501.5200, L500.3400 #### [facility] [address] [place], [address] Procalcitonin [Mass/volume] in Serum or Plasma by ImmunoassayOrdered By: See Bee on 01-22-2025 Procalcitonin IA [Mass/Vol] 1.73 ng/mL High <0.11 [facility] Comment on above: Interpretation:<0.10 -0.25 ng/mL: Antibiotic [...] Protein Ql (U) 30 mg/dl High Negative [facility] RBC Auto (Bld) [#/Vol]Ordere d By: See Bee on 01-22-2025 RBC (Bld) [#/Vol] 4.74 10*6/uL 4.6-6.2 [facility] Review by pathologistOrdered By: See Bee on 01-22-2025 Pathologist review Vishal (Unsp spec) [Interp] September [facility] Serum creatinine measurement (mass/volume)Ordered By: See Bee on 01-22-2025 Creatinine [Mass/Vol] 3.55 mg/dL High 0.70-1.20 [facility] Serum globulin measurementOr dered By: See Bee on 01-22-2025 Globulin (S) [Mass/Vol] 3.5 g/dL 2.2-4.2 W [facility] Comment on above: Previous reported re sult: 3.3 g/dLEdited by: JAY on 01/22/25:0632 AMENDED REPORT 01/22/25 0632 GLOB previously reported as: 3.3 g/dL Serum glucose measurement (m ass/volume)Ordered By: See Bee on 01-22-2025 Glucose [Mass/Vol] 121 mg/dL High 70-99 [facility] Serum or plasma alanine cowan otransferase (ALT) measurementOrdered By: See Bee on 01-22-2025 ALT [Catalytic activity/Vol] 50 U/L High <47 [facility] Serum or plasma albumin evelio urement (mass/volume)Ordered By: See Bee on 01-22-2025 Albumin [Mass/Vol] 2.4 g/dL Low 3.4-4.8 [facility] Comment on above: Previous reported re sult: 2.6 g/dLEdited by: JAY on 01/22/25:0632 AMENDED REPORT 01/22/25631 ALB previously reported as: 2.6 L g/dL Serum or plasma alkaline nilda sphatase measurementOrdered By: See Bee on 01-22-2025 ALP [Catalytic activity/Vol] 67 U/L 40-129 [facility] Serum or plasma calcium evelio urement (mass/volume)Ordered By: See Bee on 01-22-2025 Calcium [Mass/Vol] 7.2 mg/dL Low 7.6-11.0 [facility] Serum or plasma creatine kin ase activityOrdered By: See Bee on 01-22-2025 CK [Catalytic activity/Vol] 3791 U/L High 24-195 [facility] Serum or plasma urea nitroge n measurement (mass/volume)Ordered By: See Bee on 01-22-2025 Urea nitrogen [Mass/Vol] 59 mg/dL High 4-19 [facility] Sodium levelOrdered By: Kalpesh Bee on 01-22-2025 Sodium [Moles/Vol] 129 mmol/L Low 133-145 [facility] Squamous epithelial cells de tection in urine sediment by light microscopyOrdered By: See Bee on 01-22-2025 Epithelial cells.squamous LM Ql (Urine sed) 0-5 SEEN /hpf 0-5 [facility] TISSUE AEROBIC AND ANAEROBIC CULTUREon 01-22-2025 TISSUE AEROBIC AND ANAEROBIC CULTURE CULTURE BACTEROIDES FRAGILIS Moderate Growth Bacteroides fragilis Heavy Growth Normal Enteric Cordelia GRAM STAIN RESULT Few WBC Many RBC Many Gram Negative Bacilli Moderate Gram Positive Cocci Abnormal [facility] Comment on above: Performed By: #### 4 [id number] ####[facility] [address] [place] [address] Tuan Ascencio M.D. [id number] TISSUE EXAMon 01-22-2025 TISSUE EXAM [facility] Comment on above: Performed By: #### 4 7015 ####[facility] [address] [address] Wojciech Oneal M.D. [id number] [facility] [address] [place] [address] Tuan Ascencio M.D. [id number] TRIGLYCERIDESon 01-22-2025 Triglyceride [Mass/Vol] 93 mg/dL Normal 30-150 [facility] Comment on above: Result Comment: Vaishnavi onal Cholesterol Education Program Guidelines: TriglycerideNormal: <150 mg/dLBorderline High: 150-199 mg/dLHigh: 200-499 mg/dLVery High: greater than or equal to 500 mg/dL Performed By: #### 4 6606 ####[facility] [address] [address] Wojciech Oneal M.D. [id number] TYPE AND SCREENon 01-22-2025 TYPE AND SCREEN ABORH: O Positive AB SCREEN: Negative EXPIRATION DATE: 01/25/2025 23:59 EST [facility] Comment on above: Performed By: #### 4 [id number] ####[facility] [address] [address] Radha Kelsey MD [id number] GMCTS Total cell countOrdered By: See Bee on 01-22-2025 Cells counted Molgen (Bld/Tiss) [#] 100 MANUAL DIFF [facility] Total proteinOrdered By: Mark Bee on 01-22-2025 Protein [Mass/Vol] 5.9 g/dL 5.9-8.4 [facility] Urinalysis, Completeon 01-22 CAST,HYALINE 0-5 SEEN Normal 0-5 [facility] Comment on above: Order Comment: REDRA W. PREVIOUS SPECIMEN REJECTED DUE TO RESULTS NOT COMING THROUGH AND SEEM TO BE ERRONEOUS. 01/22/25 0220 Mora Patel. NOTIFIED DELMY FOR REDRAW Performed By: #### L 509.7001, L100.0100, L503.6005, L503.7505, L501.3620, L500.2500, L501.5200, L500.3400 #### [facility] [address] [place], [address] RBC 0-5 SEEN Normal 0-5 [facility] Comment on above: Order Comment: REDRA W. PREVIOUS SPECIMEN REJECTED DUE TO RESULTS NOT COMING THROUGH AND SEEM TO BE ERRONEOUS. 01/22/25219 Mora Patel. NOTIFIED DELMY FOR REDRAW Performed By: #### L 509.7001, L100.0100, L503.6005, L503.7505, L501.3620, L500.2500, L501.5200, L500.3400 #### [facility] [address] [place], [place], [id number] (221) WBC 10-25 SEEN Normal 0-5 [facility] Comment on above: Order Comment: REDRA W. PREVIOUS SPECIMEN REJECTED DUE TO RESULTS NOT COMING THROUGH AND SEEM TO BE ERRONEOUS. 01/22/25219 Mora Patel. NOTIFIED DELMY FOR REDRAW Performed By: #### L 509.7001, L100.0100, L503.6005, L503.7505, L501.3620, L500.2500, L501.5200, L500.3400 #### [facility] [address] [place], [place], [id number] ([address] BACTERIA 1+ /hpf Normal None Seen [facility] Comment on above: Order Comment: REDRA W. PREVIOUS SPECIMEN REJECTED DUE TO RESULTS NOT COMING THROUGH AND SEEM TO BE ERRONEOUS. 01/22/25219 Mora Patel. NOTIFIED DELMY FOR REDRAW Performed By: #### L 509.7001, L100.0100, L503.6005, L503.7505, L501.3620, L500.2500, L501.5200, L500.3400 #### [facility] [address] [place], [place], [address] EPI,SQUAMOUS 0-5 SEEN Normal 0-5 [facility] Comment on above: Order Comment: REDRA W. PREVIOUS SPECIMEN REJECTED DUE TO RESULTS NOT COMING THROUGH AND SEEM TO BE ERRONEOUS. 01/22/25219 Mora Patel. NOTIFIED DELMY FOR REDRAW Performed By: #### L 509.7001, L100.0100, L503.6005, L503.7505, L501.3620, L500.2500, L501.5200, L500.3400 #### [facility] [address] [place], [place], [address] Mucus Ql (Urine sed) 0 SEEN Normal [facility] Comment on above: Order Comment: REDRA W. PREVIOUS SPECIMEN REJECTED DUE TO RESULTS NOT COMING THROUGH AND SEEM TO BE ERRONEOUS. 01/22/25219 Mora Patel. NOTIFIED DELMY FOR REDRAW Performed By: #### L 509.7001, L100.0100, L503.6005, L503.7505, L501.3620, L500.2500, L501.5200, L500.3400 #### [facility] [address] [place], [place], [id number] Urine clarityOrdered By: Mark Bee on 01-22-2025 Clarity (U) Clear Clear [facility] Urine color determinationOrd ered By: See Bee on 01-22-2025 Color (U) Pili Yellow [facility] Urine glucose detectionOrder ed By: See Bee on 01-22-2025 Glucose Ql (U) Normal mg/dl Normal [facility] Urine leukocyte esterase det ection by dipstickOrdered By: See Bee on 01-22-2025 Leukocyte esterase Test strip Ql (U) 25 /ul High Negative [facility] Urine pHOrdered By: See garcia on 01-22-2025 pH (U) 5.0 [pH] 5.0 - 8.0 [facility] Urine sediment bacteria coun t by microscopy (number/high power field)Ordered By: See Bee on 01-22-2025 Bacteria LM.HPF (Urine sed) [#/Area] 1 /[HPF] None Seen [facility] Urine specific gravity measu rementOrdered By: See Bee on 01-22-2025 Specific gravity (U) [Rel density] 1.020 1.002-1.030 [facility] Urine urobilinogen measureme ntOrdered By: See Bee on 01-22-2025 Urobilinogen Ql (U) 4 mg/dl High Normal [facility] VANCOMYCIN LEVEL, RANDOMon 0 01-22-2025 VANCOMYCIN RANDOM 22.0 mcg/mL [facility] Comment on above: Order Comment: As of 02/2022 vancomycin dosing for [facility] inpatients will be done by Bayesian dosing software rather than off traditional trough values. Please contact the site specific inpatient pharmacy before making dose changes off of trough values alone for admitted patients.No established reference range. Performed By: #### 4 6651 ####[facility] [address] [place], [place] [address] Wojciech Oneal M.D. [id number] White blood cell (WBC) count Ordered By: See Bee on 01-22-2025 WBC (Bld) [#/Vol] 26.8 10*3/uL High 4.4-11.0 [facility] White blood cell countOrdere d By: See Bee on 01-22-2025 White blood cell count 10-25 SEEN /hpf 0-5 [facility] XR ABDOMEN /KUB/FLAT PLATE/1 VIEWon 01-22-2025 XR ABDOMEN /KUB/FLAT PLATE/1 VIEW [facility] Comment on above: Order Comment: Injur y/Trauma or Illness?:Illness/OtherHow long have you had these symptoms (acute/chronic)?:AcuteReason for exam?:OGT placementHistory of cancer?:unkSurgeries, chemotherapy, or radiation?:unkType of Exam?:InitialAdditional signs and symptoms?:na XR CHEST PA/APon 01-22-2025 XR CHEST PA/AP [facility] Comment on above: Order Comment: Injur y/Trauma or Illness?:Illness/OtherHow long have you had these symptoms (acute/chronic)?:AcuteReason for exam?:CVC placementHistory of cancer?:unkSurgeries, chemotherapy, or radiation?:unkType of Exam?:InitialAdditional signs and symptoms?:n/a XR CHEST PA/AP Normal [facility] Comment on above: Order Comment: Injur y/Trauma or Illness?:Illness/OtherHow long have you had these symptoms (acute/chronic)?:AcuteReason for exam?:ET tube placementHistory of cancer?:unkSurgeries, chemotherapy, or radiation?:unkType of Exam?:InitialAdditional signs and symptoms?:n/a Chest 1 View (Portable)on Chest 1 View (Portable) [facility] [address] [place] [address] Chest 1 View (Portable) MR#: [id number] Acct: [id number] Name: JAK TANNER Rep #: [id number] : 1955 M 69 From: Bayron Hunt MD PCP: [facility] Status: PRE ER Study: Chest 1 View (Portable) Date of Exam: 01/21/25 Exam# [id number] Ordering Dr: See Bee DO PROCEDURE: CHEST 1 VIEW (PORTABLE) 01/22/2025 REASON FOR EXAM: COUGH TECHNIQUE: Frontal view of the chest. FINDINGS: The lungs are clear. The cardiomediastinal silhouette appears borderline enlarged, with mild atherosclerotic calcification of the aortic knob.. No acute osseous abnormality. RAD/Chest 1 View (Portable) IMPRESSION: As above. Reading Location: [id number] CC: See Bee DO; [facility] Ticket Writer: Signed Normal [facility] Absolute lymphocyte countOrd ered By: Remus Moises on 07-12-2023 Lymphocytes Auto (Unsp spec) [#/Vol] 0.61 10*3/uL 0.83-4.51 [facility] Automated lymphocyte count a s percentage of total leukocytesOrdered By: Remus Ungryan on 07-12-2023 Lymphocytes/100 WBC Auto (Unsp spec) 5.3 % 19-41 [facility] Basophil percentageOrdered B y: Remus Ungur on 07-12-2023 Lactate [Moles/Vol] 0.8 mmol/L 0.4-2.0 [facility] Basophils/100 WBC (Bld) 0.4 % 0-1 [facility] Chloride [Moles/Vol] 109 mmol/L 98-[address] [facility] Eosinophils/100 WBC (Bld) 1.0 % 0-5 [facility] Glucose [Mass/Vol] 102 mg/dL 74-106 [facility] Comment on above: Fasting Glucose resu lt from 100 to 125 mg/dL suggests IMPAIRED HOMEOSTASIS per A.D.A. criteria. Hemoglobin (Bld) [Mass/Vol] 12.7 g/dL 13.0-16.5 [facility] Lactate [Moles/Vol] 2.0 mmol/L 0.4-2.0 [facility] Comment on above: Critical Result(s) C alled at: 17:18:01 07/12/2023 by: Tristan Everett to Aminata Magdaleno. Results read back by same. Monocytes/100 WBC (Bld) 7.3 % 0-10 [facility] Neutrophils (Bld) [#/Vol] 9.8 10*3/uL 2.0-7.7 [facility] Neutrophils/100 WBC (Bld) 85.4 % 47-70 [facility] Potassium [Moles/Vol] 2.4 mmol/L 3.5-5.1 [facility] Comment on above: Critical Result(s) C alled at: 15:18:25 07/12/2023 by: Milton Wharton to Gaston GUERRA (ER). Results read back by same. Sodium [Moles/Vol] 141 mmol/L 136-145 [facility] WBC (Bld) [#/Vol] 11.4 10*3/uL 4.4-11.0 [facility] Determination of erythrocyte mean corpuscular volume (MCV)Ordered By: Nicola De Leon on 07-12-2023 MCV (RBC) [Entitic vol] 88.2 fL 80-94 [facility] Erythrocyte distribution wid th ratioOrdered By: Nicola De Leon on 07-12-2023 Erythrocyte distribution width (RBC) [Ratio] 12.8 % 11.6-14.6 [facility] Erythrocyte distribution wid th standard deviationOrdered By: Nicola De Leon on 07-12-2023 Erythrocyte distribution width (RBC) [Entitic vol] 41.9 fL 35.1-43.9 [facility] Gram stain for investigation of transfusion reactionOrdered By: Nicola De Leon on 07-12-2023 Microscopic observation Gram stain Nom (Unsp spec) [facility] Hematocrit Auto (Bld) [Volum e fraction]Ordered By: Nicola De Leon on 07-12-2023 Hematocrit (Bld) [Volume fraction] 39.0 % 40-54 [facility] Immature granulocytes/100 WB C Auto (Bld)Ordered By: [facility] on 07-12-2023 Immature granulocytes/100 WBC (Bld) 0.600 % 0.0-0.9 [facility] Comment on above: IG% - Immature Granu locytes (promyelocytes, myelocytes and metamyelocytes) > 1% indicates that a LEFT SHIFT is Present. Laboratory - Chemistry and C hemistry - challengeOrdered By: Nicola De Leon on 07-12-2023 CO2 [Moles/Vol] 26.0 mmol/L 21.0-32.0 [facility] Urea nitrogen/Creatinine [Mass ratio] 11.8 mg/mg 10-20 [facility] Laboratory - Hematology and Cell countsOrdered By: Nicola De Leon on 07-12-2023 MCH (RBC) [Entitic mass] 28.7 pg 27.0-32.0 [facility] MCHC (RBC) [Mass/Vol] 32.6 g/dL 32-36 [facility] Nucleated RBC/100 WBC (Bld) [Ratio] 0 % 0-5 [facility] Platelet mean volume (Bld) [Entitic vol] 9.0 fL 6.2-12.0 [facility] Platelets (Bld) [#/Vol] 309 10*3/uL 150-450 [facility] No Panel InformationOrdered By: Nicola De Leon on 07-12-2023 Estimated Creatinine Clearance Calc 105.13 ml/min [facility] Estimated GFR (MDRD) Amer 93 mL/min >60 [facility] Comment on above: GFR Calc Estimated GFR (MDRD) Non-Af Amer 77 mL/min >60 [facility] Comment on above: Non- GFR Calc Methicillin-Resist S.aureus DNA PCR Negative Negative [facility] [facility] RBC Auto (Bld) [#/Vol]Ordere d By: Nicola De Leon on 07-12-2023 RBC (Bld) [#/Vol] 4.42 10*6/uL 4.6-6.2 [facility] Serum or plasma calcium evelio urement (mass/volume)Ordered By: Remus De Leon on 07-12-2023 Calcium [Mass/Vol] 9.0 mg/dL 8.5-10.1 [facility] Serum or plasma creatinine m easurement (mass/volume)[facility] on 07-12-2023 Creatinine [Mass/Vol] 1.02 mg/dL 0.70-1.30 [facility] Comment on above: The validity of the calculated GFR & GFRAA in patients over 70 years has not been determined. Clinical correlation is essential. Serum or plasma urea nitroge n measurement (mass/volume)Ordered By: Nicola De Leon on 07-12-2023 Urea nitrogen [Mass/Vol] 12 mg/dL 7-18 [facility] Staphylococcus aureus DNA de tection by probe and target amplification methodOrdered By: [facility] on 07-12-2023 S. aureus DNA QASIM+probe Ql (Unsp spec) Positive Negative [facility] Thin prep Papanicolaou smear with manual screeningOrdered By: [facility] on 07-12-2023 Thin prep Papanicolaou smear with manual screening 6 5-15 [facility] Absolute lymphocyte countOrd ered By: Marcus Sandoval on 07-02-2023 Lymphocytes Auto (Unsp spec) [#/Vol] 0.57 10*3/uL 0.83-4.51 [facility] Automated lymphocyte count a s percentage of total leukocytesOrdered By: Marcus Sandoval on 07-02-2023 Lymphocytes/100 WBC Auto (Unsp spec) 4.5 % 19-41 [facility] Basophil percentageOrdered B y: Marcus Sandoval on 07-02-2023 Basophils/100 WBC (Bld) 0.6 % 0-1 [facility] Bilirubin [Mass/Vol] 1.40 mg/dL 0.20-1.[address] [facility] Comment on above: For patients on eltr ombopag therapy, use of Dimension [place] TBIL is not recommended. Chloride [Moles/Vol] 110 mmol/L 98-[address] [facility] Eosinophils/100 WBC (Bld) 0.3 % 0-5 [facility] Glucose [Mass/Vol] 100 mg/dL 74-106 [facility] Comment on above: Fasting Glucose resu lt from 100 to 125 mg/dL suggests IMPAIRED HOMEOSTASIS per A.D.A. criteria. Hemoglobin (Bld) [Mass/Vol] 13.5 g/dL 13.0-16.5 [facility] Lactate [Moles/Vol] 2.1 mmol/L 0.4-2.0 [facility] Comment on above: Critical Result(s) C alled at: 17:20:42 07/02/2023 by: [facility] Results read back by same. Monocytes/100 WBC (Bld) 9.2 % 0-10 [facility] Neutrophils (Bld) [#/Vol] 10.7 10*3/uL 2.0-7.7 [facility] Neutrophils/100 WBC (Bld) 84.8 % 47-70 [facility] Potassium [Moles/Vol] 3.2 mmol/L 3.5-5.1 [facility] Protein [Mass/Vol] 8.4 g/dL 6.4-8.2 [facility] Sodium [Moles/Vol] 140 mmol/L 136-145 [facility] WBC (Bld) [#/Vol] 12.6 10*3/uL 4.4-11.0 [facility] Determination of erythrocyte mean corpuscular volume (MCV)Ordered By: Marcus Sandoval on 07-02-2023 MCV (RBC) [Entitic vol] 88.7 fL 80-94 [facility] Erythrocyte distribution wid th ratioOrdered By: Marcusromy Sandoval on 07-02-2023 Erythrocyte distribution width (RBC) [Ratio] 13.1 % 11.6-14.6 [facility] Erythrocyte distribution wid th standard deviationOrdered By: Marcusromy Sandoval on 07-02-2023 Erythrocyte distribution width (RBC) [Entitic vol] 42.4 fL 35.1-43.9 [facility] Erythrocyte sedimentation ra teOrdered By: Marcusromy Sandoval on 07-02-2023 ESR (Bld) [Velocity] 42 mm/h 0-[address] [facility] Hematocrit Auto (Bld) [Volum e fraction]Ordered By: [facility] Jaime on 07-02-2023 Hematocrit (Bld) [Volume fraction] 41.4 % 40-54 [facility] Immature granulocytes/100 WB C Auto (Bld)[facility] Immature granulocytes/100 WBC (Bld) 0.600 % 0.0-0.9 [facility] Comment on above: IG% - Immature Granu locytes (promyelocytes, myelocytes and metamyelocytes) > 1% indicates that a LEFT SHIFT is Present. Laboratory - Chemistry and C hemistry - challengeOrdered By: [facility] on 07-02-2023 Albumin/Globulin [Mass ratio] 0.6 {ratio} 0.9-2.4 [facility] ALP [Catalytic activity/Vol] 63 U/L 45-117 [facility] ALT [Catalytic activity/Vol] 27 U/L 16-61 [facility] CO2 [Moles/Vol] 24.0 mmol/L 21.0-32.0 [facility] Globulin (S) [Mass/Vol] 5.2 g/dL 2.2-4.2 [facility] Urea nitrogen/Creatinine [Mass ratio] 14.8 mg/mg 10-20 [facility] Laboratory - Hematology and Cell countsOrdered By: [facility] on 07-02-2023 MCH (RBC) [Entitic mass] 28.9 pg 27.0-32.0 [facility] MCHC (RBC) [Mass/Vol] 32.6 g/dL 32-36 [facility] Nucleated RBC/100 WBC (Bld) [Ratio] 0 % 0-5 [facility] Platelet mean volume (Bld) [Entitic vol] 9.5 fL 6.2-12.0 [facility] Platelets (Bld) [#/Vol] 238 10*3/uL 150-450 [facility] No Panel InformationOrdered By: Marcusromy Sandoval on 07-02-2023 Estimated GFR (MDRD) Amer 81 mL/min >60 [facility] Comment on above: GFR Calc Estimated GFR (MDRD) Non-Af Amer 67 mL/min >60 [facility] Comment on above: Non- GFR Calc RBC Auto (Bld) [#/Vol]Ordere d By: Marcus Sandoval on 07-02-2023 RBC (Bld) [#/Vol] 4.67 10*6/uL 4.6-6.2 [facility] Serum or plasma calcium evelio urement (mass/volume)Ordered By: Marcus Sandoval on 07-02-2023 Calcium [Mass/Vol] 9.1 mg/dL 8.5-10.1 [facility] Serum or plasma creatinine m easurement (mass/volume)Ordered By: Marcus Sandoval on 07-02-2023 Creatinine [Mass/Vol] 1.15 mg/dL 0.70-1.30 [facility] Comment on above: The validity of the calculated GFR & GFRAA in patients over 70 years has not been determined. Clinical correlation is essential. Serum or plasma urea nitroge n measurement (mass/volume)Ordered By: Marcus Sandoval on 07-02-2023 Urea nitrogen [Mass/Vol] 17 mg/dL 7-18 [facility] Thin prep Papanicolaou smear with manual screeningOrdered By: Marcus Sandoval on 07-02-2023 Thin prep Papanicolaou smear with manual screening 3.2 g/dL 3.2-5.0 [facility] Thin prep Papanicolaou smear with manual screening 34 U/L 15-37 [facility] Thin prep Papanicolaou smear with manual screening 6 5-15 [facility] Bacteria identified Cx Nom ( Wound)Ordered By: Dr. Mckenzie on 09-26-2022 Wound Culture GNR non billing clinician [facility] Wound Culture Aerococcus viridans. W [facility] Wound Culture Staphylococcus aureus [facility] Wound Culture Streptococcus group G [facility] Wound Culture Staphylococcus simulans [facility] Absolute lymphocyte countOrd ered By: Dr. Mckenzie on 09-22-2022 Lymphocytes Auto (Unsp spec) [#/Vol] 0.84 10*3/uL 0.83-4.51 [facility] Bacteria identified Cx Nom ( Wound)Ordered By: Cristhian Mckenzie on 09-22-2022 Wound Culture GNR non billing clinician [facility] Wound Culture Aerococcus viridans. W [facility] Wound Culture Staphylococcus aureus [facility] Wound Culture Streptococcus group G [facility] Wound Culture Staphylococcus simulans [facility] Basophil percentageOrdered B y: Dr. Mckenzie on 09-22-2022 Basophils/100 WBC (Bld) 0.9 % 0-1 W [facility] Chloride [Moles/Vol] 103 mmol/L 98-[address] [facility] Eosinophils/100 WBC (Bld) 1.5 % 0-5 [facility] Glucose [Mass/Vol] 107 mg/dL 74-106 [facility] Comment on above: Fasting Glucose resu lt from 100 to 125 mg/dL suggests IMPAIRED HOMEOSTASIS per A.D.A. criteria. Neutrophils (Bld) [#/Vol] 7.1 10*3/uL 2.0-7.7 [facility] Neutrophils/100 WBC (Bld) 79.6 % 47-70 [facility] Potassium [Moles/Vol] 3.2 mmol/L 3.5-5.1 [facility] Sodium [Moles/Vol] 138 mmol/L 136-145 [facility] WBC (Bld) [#/Vol] 8.9 10*3/uL 4.4-11.0 [facility] Blood erythrocytes count (nu mber/volume)Ordered By: Dr. Mckenzie on 09-22-2022 RBC (Bld) [#/Vol] 4.45 10*6/uL 4.6-6.2 [facility] Blood hemoglobin measurement (mass/volume)Ordered By: Dr. Mckenzie on 09-22-2022 Hemoglobin (Bld) [Mass/Vol] 12.5 g/dL 13.0-16.5 [facility] Blood lymphocytes/100 leukoc ytesOrdered By: Dr. Mckenzie on 09-22-2022 Lymphocytes/100 WBC (Bld) 9.5 % 19-41 [facility] Blood monocytes/100 leukocyt esOrdered By: Dr. Mckenzie on 09-22-2022 Monocytes/100 WBC (Bld) 6.9 % 0-10 W [facility] Blood platelet mean volumeOr dered By: Dr. Mckenzie on 09-22-2022 Platelet mean volume (Bld) [Entitic vol] 10.0 fL 6.2-12.0 [facility] Determination of erythrocyte mean corpuscular volume (MCV)Ordered By: Dr. Mckenzie on 09-22-2022 MCV (RBC) [Entitic vol] 89.2 fL 80-94 W [facility] Gram stain for investigation of transfusion reactionOrdered By: Cristhian Mckenzie on 09-22-2022 Microscopic observation Gram stain Nom (Unsp spec) [facility] Gram stain for investigation of transfusion reactionOrdered By: Dr. Mckenzie on 09-22-2022 Microscopic observation Gram stain Nom (Unsp spec) [facility] Hematocrit Auto (Bld) [Volum e fraction]Ordered By: Dr. Mckenzie on 09-22-2022 Hematocrit (Bld) [Volume fraction] 39.7 % 40-54 [facility] Laboratory - Chemistry and C hemistry - challengeOrdered By: Dr. Mckenzie on 09-22-2022 CO2 [Moles/Vol] 30.0 mmol/L 21.0-32.0 [facility] Natriuretic peptide B (Bld) [Mass/Vol] 24.2 pg/mL 0-100 [facility] Urea nitrogen/Creatinine [Mass ratio] 15.4 mg/mg 10-20 [facility] Laboratory - Hematology and Cell countsOrdered By: Dr. Mckenzie on 09-22-2022 Erythrocyte distribution width (RBC) [Entitic vol] 45.7 fL 35.1-43.9 [facility] Erythrocyte distribution width (RBC) [Ratio] 14.1 % 11.6-14.6 [facility] Immature granulocytes/100 WBC (Bld) 1.600 % 0.0-0.9 [facility] Comment on above: IG% - Immature Granu locytes (promyelocytes, myelocytes and metamyelocytes) > 1% indicates that a LEFT SHIFT is Present. MCH (RBC) [Entitic mass] 28.1 pg 27.0-32.0 [facility] Nucleated RBC/100 WBC (Bld) [Ratio] 0 % 0-5 [facility] MCHC Auto (RBC) [Mass/Vol]Or dered By: Dr. Mckenzie on 09-22-2022 MCHC (RBC) [Mass/Vol] 31.5 g/dL 32-36 [facility] No Panel InformationOrdered By: Dr. Mckenzie on 09-22-2022 Estimated Creatinine Clearance Calc 87.36 ml/min [facility] Estimated GFR (MDRD) Amer 115 mL/min >60 [facility] Comment on above: GFR Calc Estimated GFR (MDRD) Non-Af Amer 95 mL/min >60 [facility] Comment on above: Non- GFR Calc Platelets bldOrdered By: Dr. Mckenzie on 09-22-2022 Platelets (Bld) [#/Vol] 236 10*3/uL 150-450 [facility] Serum or plasma calcium evelio urement (mass/volume)Ordered By: Dr. Mckenzie on 09-22-2022 Calcium [Mass/Vol] 9.2 mg/dL 8.5-10.1 [facility] Serum or plasma creatinine m easurement (mass/volume)Ordered By: Dr. Mckenzie on 09-22-2022 Creatinine [Mass/Vol] 0.85 mg/dL 0.70-1.30 [facility] Comment on above: The validity of the calculated GFR & GFRAA in patients over 70 years has not been determined. Clinical correlation is essential. Serum or plasma urea nitroge n measurement (mass/volume)Ordered By: Dr. Mckenzie on 09-22-2022 Urea nitrogen [Mass/Vol] 13 mg/dL 7-18 [facility] Thin prep Papanicolaou smear with manual screeningOrdered By: Dr. Mckenzie on 09-22-2022 Thin prep Papanicolaou smear with manual screening 5 5-15 [facility] Vital Signs Date Time Vital Sign Value Performing Clinician Johnathan gamboa 01-22-2025 06:00-0400 Diastolic blood pressure 63 mm[Hg] [facility] Work Phone: [facility] 01-22-2025 06:00-0400 Heart rate 113 /min [facility] Work Phone: [facility] 01-22-2025 06:00-0400 Respiratory rate 17 /min [facility] Work Phone: 3(308)278-995523 [place] [address] 01-22-2025 06:00-0400 SaO2% (BldA) [Mass fraction] 97 % [facility] Work Phone: 7(337)706-136323 [place] [address] 01-22-2025 06:00-0400 Systolic blood pressure 97 mm[Hg] [facility] Work Phone: 3(434)195-027823 [place] [address] 01-22-2025 05:31-0400 Body temperature 98.4 [degF] [facility] Work Phone: 9(677)206-170923 [place] [address] 01-22-2025 00:11-0400 Body height 180.34 cm [facility] Work Phone: 9(432)727-897523 [place] [address] 01-22-2025 00:11-0400 Body mass index (BMI) [Ratio] 51.9 kg/m2 [facility] Work Phone: 7(079)220-824323 [place] [address] 01-22-2025 00:11-0400 Body weight 168.9 kg [facility] Work Phone: 3(398)596-417323 [place] [address] 07-13-2023 00:32-0500 Body temperature 98.6 [degF] [facility] Work Phone: 4(610)817-482923 [place] [address] 07-13-2023 00:32-0500 Diastolic blood pressure 63 mm[Hg] [facility] Work Phone: 1(856)625-247323 [place] [address] 07-13-2023 00:32-0500 Heart rate 98 /min [facility] Work Phone: 2(037)415-574323 [place] [address] 07-13-2023 00:32-0500 Respiratory rate 18 /min [facility] Work Phone: 5(298)623-305723 [place] [address] 07-13-2023 00:32-0500 SaO2% (BldA) [Mass fraction] 94 % [facility] Work Phone: 3(497)146-160723 [place] [address] 07-13-2023 00:32-0500 Systolic blood pressure 114 mm[Hg] [facility] Work Phone: 4(579)815-723523 [place] [address] 07-12-2023 17:23-0500 Body height 180.34 cm [facility] Work Phone: [facility] 07-12-2023 17:23-0500 Body mass index (BMI) [Ratio] 49.7 kg/m2 [facility] Work Phone: [facility] 07-12-2023 17:23-0500 Body weight 161.79 kg [facility] Work Phone: [facility] 07-12-2023 16:00-0500 Body temperature 97.9 [degF] [facility] 07-12-2023 16:00-0500 Diastolic blood pressure 66 mm[Hg] [facility] 07-12-2023 16:00-0500 Heart rate 87 /min [facility] 07-12-2023 16:00-0500 Respiratory rate 16 /min [facility] 07-12-2023 16:00-0500 SaO2% (BldA) [Mass fraction] 97 % [facility] 07-12-2023 16:00-0500 Systolic blood pressure 119 mm[Hg] [facility] 07-12-2023 14:20-0500 Body mass index (BMI) [Ratio] 50 kg/m2 [facility] 07-12-2023 14:20-0500 Body weight 162.8 kg [facility] 07-12-2023 13:58-0500 Body height 180.34 cm [facility] 07-02-2023 20:41-0500 Body temperature 97.7 [degF] [facility] 07-02-2023 20:41-0500 Diastolic blood pressure 56 mm[Hg] [facility] 07-02-2023 20:41-0500 Heart rate 98 /min [facility] 07-02-2023 20:41-0500 Respiratory rate 17 /min [facility] 07-02-2023 20:41-0500 SaO2% (BldA) [Mass fraction] 95 % [facility] 07-02-2023 20:41-0500 Systolic blood pressure 127 mm[Hg] [facility] 07-02-2023 15:56-0500 Body height 180.34 cm [facility] 11-16-2022 10:05-0400 Body mass index (BMI) [Ratio] 47.4 kg/m2 Dr. Toño Heller Work Phone: 7(765)020-875123 [place] [address] 11-16-2022 10:05-0400 Body temperature 97.9 [degF] Dr. Toño Heller Work Phone: 8(147)965-737323 [place] [address] 11-16-2022 10:05-0400 Diastolic blood pressure 86 mm[Hg] Dr. Toño Heller Work Phone: 0(546)750-635523 [place] [address] 11-16-2022 10:05-0400 Heart rate 93 /min Dr. Toño Heller Work Phone: 7(293)182-803523 [place] [address] 11-16-2022 10:05-0400 Respiratory rate 16 /min Dr. Toño Heller Work Phone: 2(622)174-785823 [place] [address] 11-16-2022 10:05-0400 Systolic blood pressure 135 mm[Hg] Dr. Toño Heller Work Phone: 7(655)017-664923 [place] [address] 11-11-2022 01:33-0400 Body weight 154.[address] Toño Heller Work Phone: 5(037)304-202723 [place] [address] 11-02-2022 09:21-0400 Body mass index (BMI) [Ratio] 47.4 kg/m2 Dr. Toño Heller Work Phone: 2(777)998-657923 [place] [address] 11-02-2022 09:21-0400 Body temperature 97.7 [degF] Dr. Toño Heller Work Phone: 3(114)926-815823 [place] [address] 11-02-2022 09:21-0400 Diastolic blood pressure 94 mm[Hg] Dr. Toño Heller Work Phone: 2(729)991-415023 [place] [address] 11-02-2022 09:21-0400 Heart rate 91 /min Dr. Toño Heller Work Phone: 9(973)440-761323 [place] [address] 11-02-2022 09:21-0400 Respiratory rate 16 /min Dr. Toño Heller Work Phone: 1(943)511-207823 [place] [address] 11-02-2022 09:21-0400 Systolic blood pressure 165 mm[Hg] Dr. Toño Heller Work Phone: 5(327)274-492023 [place] [address] 10-12-2022 00:48-0400 Body weight 154.[address] Toño Heller Work Phone: 2(822)613-424223 [place] [address] 10-10-2022 09:53-0400 Body mass index (BMI) [Ratio] 47.4 kg/m2 Dr. Toño Heller Work Phone: 5(909)801-603923 [place] [address] 10-10-2022 09:53-0400 Body temperature 97.1 [degF] Dr. Toño Heller Work Phone: 5(803)290-712323 [place] [address] 10-10-2022 09:53-0400 Diastolic blood pressure 76 mm[Hg] Dr. Toño Heller Work Phone: 7(756)983-773323 [place] [address] 10-10-2022 09:53-0400 Heart rate 102 /min Dr. Toño Heller Work Phone: 2(853)763-094723 [place] [address] 10-10-2022 09:53-0400 Respiratory rate 18 /min Dr. Toño Heller Work Phone: 8(198)512-888623 [place] [address] 10-10-2022 09:53-0400 Systolic blood pressure 119 mm[Hg] Dr. Toño Heller Work Phone: 5(123)140-067023 [place] [address] 10-05-2022 09:08-0400 Body height 180.[address] Toño Heller Work Phone: 8(274)997-664923 [place] [address] 10-05-2022 09:08-0400 Body weight 154.[address] Toño Heller Work Phone: 2(369)592-629823 [place] [address] 09-22-2022 12:00-0400 Respiratory rate 22 /min [facility] 09-22-2022 08:19-0400 Body mass index (BMI) [Ratio] 49.1 kg/m2 [facility] 09-22-2022 08:19-0400 Body weight 160 kg [facility] 09-22-2022 08:05-0400 Body height 180.34 cm [facility] 09-22-2022 08:05-0400 Body temperature 97.8 [degF] [facility] 09-22-2022 08:05-0400 Diastolic blood pressure 75 mm[Hg] [facility] 09-22-2022 08:05-0400 Heart rate 99 /min [facility] 09-22-2022 08:05-0400 SaO2% (BldA) [Mass fraction] 96 % [facility] 09-22-2022 08:05-0400 Systolic blood pressure 124 mm[Hg] [facility] Encounters Encounter Date Encounter Type Care Provider Facility Start: 03-24-2025 ambulatory [facility] Facility:[facility] Start: 03-17-2025 ambulatory [facility] Facility:[facility] Start: 03-10-2025 ambulatory [facility] Facility:[facility] Start: 03-03-2025 ambulatory Alyssa Gudla OLS Facili ty:[facility] Start: 02-27-2025 ambulatory [facility] Facility:[facility] Start: 02-24-2025 ambulatory Alyssa Gudla OLS Facili ty:[facility] Start: 02-19-2025 ambulatory Alyssa Gudla OLS Facili ty:[facility] Start: 01-22-2025 End: 02-18-2025 Evaluation and management of inpatient PROVIDER NOT IN SYSTEM [facility] Start: 01-22-2025 End: 01-26-2025 ambulatory PROVIDER NOT IN SYSTEM [facility] Start: 01-21-2025 End: 01-22-2025 Emergency department patient visit [facility] Work Phone: -Emergency Department Work Phone: Start: 04-21-2024 End: 05-09-2024 ambulatory Alejandro Sanders Facility:[facility] Start: 04-09-2024 End: 04-12-2024 ambulatory Myles Rebollar Facility:[facility] Start: 07-12-2023 Non-patient / Non-visit [facility] Work Phone: [facility] Work Phone: Start: 07-12-2023 [facility] Start: 07-12-2023 End: 07-12-2023 ambulatory [facility] Work Phone: [facility] Work Phone: Start: 07-12-2023 End: 07-12-2023 Discharged Recurring [facility] Work Phone: Start: 07-12-2023 Registered Recurring [facility] Work Phone: Start: 07-02-2023 End: 07-02-2023 [facility] Start: 11-16-2022 Non-patient / Non-visit Dr. Toño Heller Work Phone: [facility] Work Phone: Start: 11-16-2022 End: 11-17-[address] Toño Heller Work Phone: [facility] Work Phone: Start: 11-16-2022 End: 11-17-[address] Toño Heller Work Phone: [facility] Work Phone: Start: 11-02-2022 Non-patient / Non-visit Dr. Toño Heller Work Phone: [facility] Work Phone: Start: 11-02-2022 End: 11-10-[address] Toño Heller Work Phone: [facility] Work Phone: Start: 11-02-2022 End: 11-10-[address] To[facility] Heller [facility] Work Phone: Start: 10-26-2022 Non-patient / Non-visit Dr. Toño Heller Work Phone: [facility] Work Phone: Start: 10-19-2022 Non-patient / Non-visit Dr. Toño Heller Work Phone: [facility] Work Phone: Start: 10-12-2022 Non-patient / Non-visit Dr. Toño Heller Work Phone: [facility] Work Phone: Start: 10-10-2022 End: 10-11-[address] Toño Heller Work Phone: [facility] Work Phone: Start: 10-10-2022 End: 10-11-[address] [facility] Start: 10-05-2022 Non-patient / Non-visit Dr. Toño Heller Work Phone: [facility] Start: 09-22-2022 End: 09-22-2022 [facility] Date Procedure Procedure Detail Performing Clinician Start: 01-22-2025 MRI of lower extremity [facility] Work Phone: Start: 01-22-2025 Estimated creatinine clearance [facility] Work Phone: Start: 01-22-2025 Urnls dip stick/tabl et reagent auto microscopy [facility] Work Phone: Start: 01-22-2025 Flow cytometry cell surf marker techl only 1st [facility] Work Phone: Start: 01-22-2025 Reactive lymphocyte count [facility] Work Phone: Start: 01-21-2025 Plain chest X-ray [facility] Work Phone: Start: 07-12-2023 X-ray of both feet Start: 07-12-2023 Investigation of transfusion reaction Start: 07-02-2023 X-ray of both feet Start: 09-22-2022 Investigation of transfusion reaction Dr. Toño Hellre Work Phone: Start: 09-22-2022 Microbial culture, routine Dr. Toño Heller Work Phone: Start: 09-22-2022 End: 09-22-2022 Radiography of ankle Microbial culture, routine D nannette Heller Work Phone: Plan of Treatment Date Care Activity Detail Author Start: 01-22-2025 Bacteria identified in Blood by Culture Blood Culture [facility] Start: 01-22-2025 Bacteria identified in Urine by Culture Urine Culture [facility] Start: 01-22-2025 [facility] Start: 01-22-2025 [facility] Start: 01-22-2025 [facility] Start: 07-13-2023 Blood chemistry [facility] Start: 07-12-2023 Referral to occupati onal therapist [facility] Start: 07-12-2023 Referral to service [facility] Start: 07-12-2023 Consultation [facility] Start: 07-12-2023 Following clinical p athway protocol [facility] Start: 07-12-2023 Assessment of risk o f venous thromboembolism [facility] Start: 07-12-2023 Catheterization of vein [facility] Start: 07-12-2023 Consultation for treatment [facility] Start: 07-12-2023 Insertion of cathete r into peripheral vein [facility] Start: 07-12-2023 MRI of lower extremity Lower Ext/No Jt/w/o [facility] Start: 07-12-2023 Providing care accor ding to standard [facility] Start: 07-12-2023 Provision of activit y privileges [facility] Start: 07-12-2023 Referral to red hat linux engineer [facility] Start: 07-12-2023 [facility] Start: 07-12-2023 Verification routine [facility] Start: 07-12-2023 Admission procedure [facility] Start: 07-12-2023 End: 07-12-2023 Blood culture [facility] Start: 07-12-2023 [facility] Start: 07-12-2023 Bacteria identified in Blood by Culture Blood Culture [facility] Start: 07-12-2023 Wound Culture Wound Culture [facility] Start: 07-12-2023 Consultation [facility] Start: 07-12-2023 Patient referral to dietitian [facility] Start: 07-02-2023 [facility] Start: 07-02-2023 Referral to service [facility] Start: 09-22-2022 [facility] Anion gap measurement [facility] BUN/Creatinine ratio [facility] Calcium [Mass/volume ] in Serum or Plasma [facility] Carbon dioxide, tota l [Moles/volume] in Serum or Plasma [facility] Chloride [Moles/volu me] in Serum or Plasma [facility] Creatinine [Moles/vo lume] in Serum or Plasma [facility] Erythrocyte mean cor puscular volume determination [facility] Glucose [Mass/volume ] in Serum or Plasma [facility] Hematocrit [Volume F raction] of Blood [facility] Hemoglobin [Mass/vol ume] in Blood [facility] Leukocytes [#/volume ] in Blood [facility] Mean corpuscular hem oglobin concentration determination [facility] Mean corpuscular hem oglobin determination [facility] Measurement of renal function [facility] Microscopic observat ion [Identifier] in Unspecified specimen by Gram stain Gram Stain [facility] Neutrophil count [facility] Neutrophil percent differential count [facility] Patient Education [facility] Work Phone: Patient referral [facility] Work Phone: Platelets [#/volume] in Blood [facility] Potassium [Moles/vol ume] in Serum or Plasma [facility] Red blood cell count [facility] Red cell distributio n width determination [facility] Sodium [Moles/volume ] in Serum or Plasma [facility] Urea nitrogen [Mass/ volume] in Serum or Plasma [facility] Urine culture [facility] Vancomycin [Mass/vol ume] in Serum or Plasma --trough [facility] Wound Culture Wound Culture [facility] Wound microscopy, cu lture and sensitivities [facility] Immunizations Immunization Date Immunization Notes Care Provider Mello escamillashiloh 03-04-2022 Covid Moderna Bivale nt Booster [facility] Work Phone: [facility] 05-31-2021 Covid (Moderna) [facility] Work Phone: [facility] 09-02-2020 Covid (Moderna) [facility] [place] Work Phone: [facility] 08-05-2020 [facility] Work Phone: [facility] Payers Date Payer Category Payer Medicaid [id number] 2024 Self-pay [id number] 2024 Unknown [id number] 1955 Unknown [id number]. [id number] 1955 Unknown [id number] .[id number]. 902 1955 Unknown [id number] .[id number]. 902 Medicare MEDICARE PART A B [id number] Private Health Insurance [id number] Unknown SELF INS [employer] [id number] Unknown [id number] [id number]. 462 Unknown [id number] 2.16.840.1.950355.3.579.2. 462 Unknown [id number] 2.16.840.1.009246.3.579.2. 462 Unknown [id number] 2.16.840.1.790055.3.579.2. 462 Unknown [id number] 2.16.840.1.886128.3.579.2. 462 Unknown [id number] 2.16.840.1.600906.3.579.2. 462 Unknown [id number] 2.16.840.1.396728.3.579.2. 462 Unknown [id number] 2.16.840.1.786413.3.579.2. 462 Unknown [id number] 2.16.840.1.649413.3.579.2. 462 Unknown [id number] [id number]. 462 Social History Date Type Detail Facility Start: 09-22-2022 End: 07-12-2023 Tobacco smoking status NEIS Unknown if ever smoked [facility] Start: 10-01-2019 None [facility] Start: 10-01-2019 Alone [facility] Start: 11-12-2019 Non-smoker [facility] Start: 1955 Sex Assigned At Male W [facility] Start: 01-22-2025 Tobacco smoking stat us NEIS Ex-smoker (finding) [facility] Medical Equipment Procedure Code Equipment Code Equipment Origin al Text Equipment Identifier Dates Debridement, wound Plant polysaccharide haemostatic agent, bioabsorbable ([id number] [facility] Start: 07-15-2023 Goals Date Patient Goal Desired Activity /State Functional Status Date Assessment Result Facility 07-12-2023 Functional status Ambulates [facility] Work Phone: Mental Status Date Assessment Result Facility 01-22-2025 Cognitive function Level Of Cons ciousness Awake;Alert;Appropriate;Follow s Commands [facility] Work Phone: 07-12-2023 Cognitive function Voice/Name [facility] Work Phone: 09-22-2022 Cognitive function Level Of Cons ciousness Awake;Alert;Appropriate;Follow s Commands [facility] Work Phone: Clinical Notes 09-22-2022 to 02-17-2025 [...] Ce nter 01-22-2025 Radiology Diagnostic study note [facility] Imaging Services [address] [place] [address] Extremity Lower without Contra MR#: [id number] Acct: [id number] Name: JAK TANNER Rep #: [id number] : 1955 M 69 From: Jl Hunt MD PCP: [facility] Status: PRE ER Study:Extremity Lower without Contra Date of Exam: 01/22/25 Exam# [id number] Ordering Dr: Yumiko Bee DO PROCEDURE: EXTREMITY [...] degenerative changes of both hips. Reading Location: [id number] CC: See Bee DO; [facility] ~ Ticket Writer: Signed [facility] 01-22-2025 Discharge summary [facility] 09-11-2025 Radiology Diagnostic study note [facility] Imaging Services [address] [place] [address] Chest 1 View (Portable) MR#: [id number] Acct: [id number] Name: JAK TANNER Rep #: [id number] : 1955 M 69 From: Jl Hunt MD PCP: [facility] Status: PRE ER Study:Chest 1 View (Portable) Date of Exam: 01/21/25 Exam# [id number] Ordering Dr: Yumiko Bee DO PROCEDURE: CHEST 1 VIEW (PORTABLE) 01/22/2025 REASON FOR EXAM: COUGH TECHNIQUE: Frontal view of the chest. FINDINGS: The lungs are clear. The cardiomediastinal silhouette appears borderline enlarged, with mild atherosclerotic calcification of the aortic knob.. No acute osseous abnormality. RAD/Chest 1 View (Portable) IMPRESSION: As above. Reading Location: [id number] CC: See Bee DO; [facility] ~ Ticket Writer: Signed [facility] 07-02-2023 Discharge summary Note Date/Time July 02, 2023 5:09pm [facility] Medical Records Department [address] [place] [address] Emergency Department Summary 07/02/23 MR#: [id number] Acct: [id number] Name: JAK TANNER Rep #:[id number] : 1955 68 From: Marcus Sandoval MD PCP: [facility] St atus:REG ER Location: ED HPI History [...] 84.8 H Lymph % (Auto) 4.5 L Rich % (Auto) 9.2 Eos % (Auto) 0.3 [...] lymphedema. This was independent reviewed interpreted by mn [id number]) Diagnostic Testing: Clinical Impression(s) from Imaging Studies [...] 0RF Primary Care Provider: Toño Montes Referrals: [facility] Stanley,Toño Heller [Primary Care Provider] - As soon as possible Activity Restrictions/Additional Instructions: Follow-up at the [facility] for wound evaluation in 2 days. Do not remove the dressing until seen at the wound center. Disposition Disposition: Home, Self Care What to do if you have Problems For any increased pain, shortness of breath, bleeding, nausea or vomiting, chestpain, or any unexpected problems, contact your Primary Care Provider. Call [facility] ([phone]) or report to the closest Emergency Room. Call 911 if necessary. 07/02/231949 <Electronically signed by Marcus Sandoval MD> Cosigner Signature (if applicable): CC: [facility] ~ Signed [facility] Work Phone: 1(212) 903-206607-06-2023 Progress note Author john Sanchez [facility] November 16, 2022 1:08pm Note Date/Time November 16, 2022 1:08p [facility] [address] [place] [address] Progress Note - Wound Care 11/16/22 1304 MR#: [id number] Acct: [id number] Name: JAK TANNER Rep #:[id number] : 1955 67 From: Franklyn espinal MD [...] been using his compression. [facility] due to concern for feeling [...] Charges/Coding Visit Charges Office Visits / Consults: 13078 OV L3 Est Physical Exam Const alert, [...] Date Recorded By Document 11/16/22 10:05 TIA [id number] 11/16/22 10:15 TIA 11/16/22 10:05 - Today's Visit Information Type of service Follow-up Visit (Physician/SALESPERSON TERRAZZO TILES ) Arrival Mode Ambulatory Patient Identification Verified [...] Recorded Date Recorded By Document 11/16/22 10:05 [id number] 11/16/22 10:15 11/16/22 10:05 Wound Center Nurse [...] Recorded Date Recorded By Document 11/16/22 11:01 [id number] 11/16/22 11:04 11/16/22 11:01 Wound Center Nurse [...] Date Recorded By Document 11/16/22 12:07 TIA [id number] 11/16/22 12:08 TIA 11/16/22 12:07 Wound Care [...] wound center. This note was generated with EasyProve dictation software. It may contain incorrectwords, spelling, and punctuation that were not noted in checking the note beforesigning. 11/16/22 1308 <Electronically signed by Franklyn aSnchez MD> Cosigner Signature (if applicable): CC: ~ Signed [facility] Work Phone: 1(638) 306-455006-22-2023 Progress note Author Franklyn Sanchez [facility] November 02, 2022 1:44pm Note Date/Time November 02, 2022 11:1 1am [facility] [address] [place] [address] Progress Note - Wound Care 11/02/22 1107 MR#: [id number] Acct: [id number] Name: JAK TANNER Rep #:[id number] : 1955 67 From: Franklyn espinal MD [...] been using his compression. [facility] due to concern for feeling [...] Index (BMI) 47.4 Charges/Coding Procedures Integumentary 111xxx-113xx: 16673 Magdalena subq tissue 20 sq cm/< (Superficial [...] Recorded Date Recorded By Document 10/12/22 08:59 [facility] [id number] 10/12/22 09:18 [facility] Document 10/16/22 08:51 DL [id number] 10/16/22 08:55 DL Document 10/19/22 09:22 [facility] [id number] 10/19/22 09:44 [facility] Document 10/24/22 13:03 NV [id number] 10/24/22 13:06 NV Document 10/26/22 09:32 NV [id number] 10/26/22 09:34 NV Document 11/02/22 09:21 [facility] [id number] 11/02/22 09:31 [facility] 10/12/22 10/16/22 10/19/22 08:59 08:51 09:22 - Today's Visit Information Type of service Follow-up Visit Nurse-only Follow-up Visit (Physician/SALESPERSON TERRAZZO TILES Visit (Physician/SALESPERSON TERRAZZO TILES ) ) Arrival Mode Ambulatory Ambulatory Ambulatory [...] service Nurse-only Follow-up Visit Follow-up Visit Visit (Physician/SALESPERSON TERRAZZO TILES (Physician/SALESPERSON TERRAZZO TILES ) ) Arrival Mode Ambulatory Ambulatory Ambulatory [...] Recorded Date Recorded By Document 10/12/22 08:59 [facility] [id number] 10/12/22 09:18 BM Document 10/16/22 08:51 DL [id number] 10/16/22 08:55 DL Document 10/19/22 09:22 [facility] [id number] 10/19/22 09:44 BM Document 10/26/22 09:32 AK [id number] 10/26/22 09:34 AK Document 11/02/22 09:21 [facility] [id number] 11/02/22 09:31 BMF 10/12/22 10/16/22 10/19/22 08:59 [...] Date Recorded By Document 10/12/22 09:31 MW [id number] 10/12/22 09:48 MW Document 10/19/22 09:51 MW [id number] 10/19/22 10:21 MW Document 10/26/22 09:42 MW Desktop 10/26/22 09:50 MW Document 11/02/22 09:56 MW [id number] 11/02/22 10:05 MW 10/12/22 10/19/22 10/26/22 09:31 [...] Recorded Date Recorded By Document 10/12/22 10:13 [facility] [id number] 10/12/22 10:15 [facility] Document 10/16/22 08:51 DL [id number] 10/16/22 08:55 DL Document 10/19/22 10:28 [facility] [id number] 10/19/22 10:29 [facility] Document 10/24/22 13:03 NV [id number] 10/24/22 13:06 NV Document 10/24/22 13:06 AK [id number] 10/24/22 13:07 NV Document 11/02/22 10:39 DL [id number] 11/02/22 10:39 DL 10/12/22 10/16/22 10/19/22 10:13 08:51 10:28 Wound Care Center Nurse 3 #8- r 2nd toe -Ulcer Cleansing Soap and Water Soap and Water Soap and Water -Foul Odor after Cleansing No No -Negative Pressure Wound Therapy -Primary Dressing Applied Aquacel Extra Aquacel AG 4x4 Aquacel Extra -Other Dressing PER DL LOADING UNIT OPERATOR CRIMPING -Primary Dressing Covered/Secured with Dry Gauze, Dry [...] unna aqaucel Ag UNNA BOOT; PER DL LOADING UNIT OPERATOR CRIMPING -Primary Dressing Covered/Secured with Dry Gauze & Roll Gauze, Secured with Tape -Aquacel Extra 0 0 #6- R LAT ANKLE cluster -Ulcer Cleansing Rinsed/ Soap and Water Soap and Water Irrigated with Saline -Foul Odor after Cleansing No No No -Primary Dressing Applied Aquacel Extra Aquacel Extra -Other Dressing unna aqaucel Ag UNNA BOOT; PER DL LOADING UNIT OPERATOR CRIMPING -Primary Dressing Covered/Secured with Dry Gauze, Secured [...] 2 weeks. This note was generated with MicroSolaration software. It may contain incorrectwords, spelling, and punctuation that were not noted in checking the note beforesigning. 11/02/22 1344 <Electronically signed by Franklyn Sanchez MD> Cosigner Signature (if applicable): CC: ~ Signed [facility] Work Phone: 1(548) 199-507706-15-2023 Progress note Author Franklyn Sanchez [facility] October 26, 2022 12:58pm Note Date/Time October 26, 2022 9:57 am [facility] [address] [place] [address] Progress Note - Wound Care 10/26/22 0956 MR#: [id number] Acct: [id number] Name: JAK TANNER Rep #:[id number] : 1955 67 From: Franklyn espinal MD [...] been using his compression. [facility] due to concern for feeling [...] Index (BMI) 47.4 Charges/Coding Procedures Integumentary 111xxx-113xx: 52229 Magdalena subq tissue 20 sq cm/< Physical [...] Recorded Date Recorded By Document 10/12/22 08:59 [facility] [id number] 10/12/22 09:18 BMF Document 10/16/22 08:51 DL [id number] 10/16/22 08:55 DL Document 10/19/22 09:22 BMF [id number] 10/19/22 09:44 BM Document 10/24/22 13:03 AK [id number] 10/24/22 13:06 AK Document 10/26/22 09:32 NV [id number] 10/26/22 09:34 AK 10/12/22 10/16/22 10/19/22 08:59 08:51 09:22 WC - Today's Visit Information Type of service Follow-up Visit Nurse-only Follow-up Visit (Physician/SALESPERSON TERRAZZO TILES Visit (Physician/SALESPERSON TERRAZZO TILES ) ) Arrival Mode Ambulatory Ambulatory Ambulatory [...] Type of service Nurse-only Follow-up Visit Visit (Physician/SALESPERSON TERRAZZO TILES ) Arrival Mode Ambulatory Ambulatory Transfer Assistance [...] Recorded Date Recorded By Document 10/12/22 08:59 [facility] [id number] 10/12/22 09:18 BMF Document 10/16/22 08:51 DL [id number] 06/05/23 08:55 DL Document 10/19/22 09:22 [facility] [id number] 10/19/22 09:44 BMF Document 10/26/22 09:32 AK [id number] 10/26/22 09:34 AK 10/12/22 10/16/22 10/19/22 08:59 [...] Date Recorded By Document 10/12/22 09:31 MW [id number] 10/12/22 09:48 MW Document 10/19/22 09:51 MW [id number] 10/19/22 10:21 MW Document 10/26/22 09:42 MW [...] Recorded Date Recorded By Document 10/12/22 10:13 [facility] [id number] 10/12/22 10:15 [facility] Document 10/16/22 08:51 DL [id number] 10/16/22 08:55 DL Document 10/19/22 10:28 [facility] [id number] 10/19/22 10:29 [facility] Document 10/24/22 13:03 NV [id number] 10/24/22 13:06 NV Document 10/24/22 13:06 AK [id number] 10/24/22 13:07 NV 10/12/22 10/16/22 10/19/22 10:13 08:51 10:28 Wound Care Center Nurse 3 #8- r 2nd toe -Ulcer Cleansing Soap and Water Soap and Water Soap and Water -Foul Odor after Cleansing No No -Negative Pressure Wound Therapy -Primary Dressing Applied Aquacel Extra Aquacel AG 4x4 Aquacel Extra -Other Dressing PER DL LOADING UNIT OPERATOR CRIMPING -Primary Dressing Covered/Secured with Dry Gauze, Dry [...] unna aqaucel Ag UNNA BOOT; PER DL LOADING UNIT OPERATOR CRIMPING -Primary Dressing Covered/Secured with Dry Gauze & Roll Gauze, Secured with Tape -Aquacel Extra 0 0 #6- R LAT ANKLE cluster -Ulcer Cleansing Rinsed/ Soap and Water Soap and Water Irrigated with Saline -Foul Odor after Cleansing No No No -Primary Dressing Applied Aquacel Extra Aquacel Extra -Other Dressing unna aqaucel Ag UNNA BOOT; PER DL LOADING UNIT OPERATOR CRIMPING -Primary Dressing Covered/Secured with Dry Gauze, Secured [...] a week. This note was generated with EasyProve dictation software. It may contain incorrectwords, spelling, and punctuation that were not noted in checking the note beforesigning. 10/26/22 1258 <Electronically signed by Franklyn Sanchez MD> Cosigner Signature (if applicable): CC: ~ Signed [facility] Work Phone: 1(521) 793-384606-09-2023 Progress note Author Franklyn Sanchez [facility] October 20, 2022 12:59pm Note Date/Time October 19, 2022 1:00p m [facility] [address] [place] [address] Progress Note - Wound Care 10/19/22 1254 MR#: [id number] Acct: [id number] Name: JAK TANNER Rep #:[id number] : 1955 67 From: Franklyn espinal MD [...] been using his compression. [facility] due to concern for feeling [...] Index (BMI) 47.4 Charges/Coding Procedures Integumentary 111xxx-113xx: 23050 Magdalena subq tissue 20 sq cm/< Add On Codes: 58781 Magdalena subq tissue add-on (x3. Additional square [...] Recorded Date Recorded By Document 10/12/22 08:59 [facility] [id number] 10/12/22 09:18 BM Document 10/16/22 08:51 DL [id number] 10/16/22 08:55 DL Document 10/19/22 09:22 [facility] [id number] 10/19/22 09:44 BM 10/12/22 10/16/22 10/19/22 08:59 08:51 09:22 - Today's Visit Information Type of service Follow-up Visit Nurse-only Follow-up Visit (Physician/SALESPERSON TERRAZZO TILES Visit (Physician/SALESPERSON TERRAZZO TILES ) ) Arrival Mode Ambulatory Ambulatory Ambulatory [...] Recorded Date Recorded By Document 10/12/22 08:59 [facility] [id number] 10/12/22 09:18 BM Document 10/16/22 08:51 DL [id number] 10/16/22 08:55 DL Document 10/19/22 09:22 [facility] [id number] 10/19/22 09:44 [facility] 10/12/22 10/16/22 10/19/22 08:59 08:51 09:22 [...] Date Recorded By Document 10/12/22 09:31 MW [id number] 10/12/22 09:48 MW Document 10/19/22 09:51 MW [id number] 10/19/22 10:21 MW 10/12/22 10/19/22 09:31 09:51 [...] Recorded Date Recorded By Document 10/12/22 10:13 [facility] [id number] 10/12/22 10:15 [facility] Document 10/16/22 08:51 [id number] 10/16/22 08:55 Document 10/19/22 10:28 [facility] [id number] 10/19/22 10:29 [facility] 10/12/22 10/16/22 10/19/22 10:13 08:51 10:28 Wound Care Center Nurse 3 #8- r 2nd toe -Ulcer Cleansing Soap and Water Soap and Water Soap and Water -Foul Odor after Cleansing No No -Primary Dressing Applied Aquacel Extra Aquacel AG 4x4 Aquacel Extra -Other Dressing PER DL LOADING UNIT OPERATOR CRIMPING -Primary Dressing Covered/Secured with Dry Gauze, Dry [...] unna aqaucel Ag UNNA BOOT; PER DL LOADING UNIT OPERATOR CRIMPING -Primary Dressing Covered/Secured with Dry Gauze, Secured with Tape -Aquacel Extra 1 0 #4- L POST LE -Ulcer Cleansing Rinsed/ Soap and Water Soap and Water Irrigated with Saline -Foul Odor after Cleansing No No No -Primary Dressing Applied Aquacel Extra Aquacel Extra -Other Dressing unna aqaucel Ag UNNA BOOT; PER DL LOADING UNIT OPERATOR CRIMPING -Primary Dressing Covered/Secured with Dry Gauze & [...] a week. This note was generated with MicroSolaration software. It may contain incorrectwords, spelling, and punctuation that were not noted in checking the note beforesigning. 10/20/22 1250 <Electronically signed by Franklyn Sanchez MD> Cosigner Signature (if applicable): CC: ~ Signed [facility] Work Phone: 1(973) 199-576206-01-2023 Progress note Author john Sanchez [facility] October 12, 2022 10:39am Note Date/Time October 12, 2022 10:39 am [facility] [address] [place] [address] Progress Note - Wound Care 10/12/22 1036 MR#: [id number] Acct: [id number] Name: JAK TANNER Rep #:[id number] : 1955 67 From: Franklyn espinal MD [...] been using his compression. [facility] due to concern for feeling [...] Index (BMI) 47.4 Charges/Coding Procedures Integumentary 111xxx-113xx: 51091 Magdalena subq tissue 20 sq cm/< Add On Codes: 33346 Magdalena subq tissue add-on (x3. Additional square [...] Recorded Date Recorded By Document 10/12/22 08:59 [facility] [id number] 10/12/22 09:18 [facility] 10/12/22 08:59 - Today's Visit Information Type of service Follow-up Visit (Physician/SALESPERSON TERRAZZO TILES ) Arrival Mode Ambulatory Transfer Assistance None [...] Recorded Date Recorded By Document 10/12/22 08:59 [facility] [id number] 10/12/22 09:18 [facility] 10/12/22 08:59 Wound Center Nurse 1 [...] Date Recorded By Document 10/12/22 09:31 MW [id number] 10/12/22 09:48 MW 10/12/22 09:31 Wound Center [...] Recorded Date Recorded By Document 10/12/22 10:13 [facility] [id number] 10/12/22 10:15 [facility] 10/12/22 10:13 Wound Care Center Nurse [...] a week. This note was generated with EasyProve dictation software. It may contain incorrectwords, spelling, and punctuation that were not noted in checking the note beforesigning. 10/12/22 1039 <Electronically signed by Franklyn Sanchez MD> Cosigner Signature (if applicable): CC: ~ Signed [facility] Work Phone: 1(255) 341-987905-26-2023 History and physical note Author Dr. Sanchez [facility] October 06, 2022 11:48am Note Date/Time October 05, 2022 1:10p m [facility] [address] [place] [address] H&P Exam - Wound Care 10/05/22 1252 MR#: [id number] Acct: [id number] Name: JAK TANNER Rep #:[id number] : 1955 67 From: Franklyn espinal MD [...] been using his compression. [facility] for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
[2025-04-16 09:34] LABS: Hematocrit 36.1 % (40-54); Hemoglobin 11.1 g/dL (13.0-16.5); Mean Corp Hgb Conc 30.7 g/dL (32-36); Mean Corpuscular Volume 88.3 fL (80-94); Mean Platelet Vol. 9.5 fl (6.2-12.0); Platelet Count 310 K/mm3 (150-450); RBC Distribution Width CV 12.8 % (11.6-14.6); RBC Distribution Width SD 40.9 fl (35.1-43.9); Red Blood Count 4.09 M/mm3 (4.6-6.2); White Blood Count 5.5 K/mm3 (4.4-11.0)
[2025-04-16 09:57] LABS: AST(SGOT) 25 U/L (<=37); Alanine Aminotransfer ALT/SGPT 8 U/L (<=46); Albumin, Serum 2.8 g/dL (3.4-4.8); Alkaline Phosphatase 52 U/L (40-129); Anion Gap 10 (5-15); BUN 6 mg/dL (4-19); BUN/Creat Ratio 10.4 RATIO (10-20); Calcium,Total 8.9 mg/dL (7.6-11.0); Carbon Dioxide 27.0 mmol/L (21.0-32.0); Chloride 102 mmol/L (98-108); Globulin 4.1 g/dL (2.2-4.2); Glucose 97 mg/dL (70-99); Potassium 3.1 mmol/L (3.3-5.1)
== END ==
LOC: OLS.SW 05:00
PROVIDERS: Visit Provider Family Medicine
DX: I10 Essential (primary) hypertension (principal)
CPT/HCPCS: 36415; 80053; 85027

== ENCOUNTER → 2025-04-23 | Outpatient (REF) | payer MEDICARE, MEDICAID, SELFPAY ==
--- OUTSIDE RECORDS SUMMARY | 2025-04-23 04:07 | XMS RPT_ITS | CCD ---
Author Organization [facility] Care Team Providers Care Manager Sales Name Role Phone Dr. Toño Heller Primary Care Provider Dr. Toño Heller Referring Provider Dr. Franklyn Sanchez Attending Provider Dr. Franklyn Sanchez Other Provider [facility] Pina Primary Care Pro vider Dr. Nicola De Leon Emergency Provider Dr. Danis Velez Admit Provider Dr. Danis Velez Attending Provider Dr. Danis Velez Other Provider Dr. Alejandro Sanders Other Provider [facility] [place] Pina Primary Care Pro vider Dr. See Bee DO Emergency Provider SYSTEM, PROVIDER NOT IN Referring Unavaila ble ALAN CLAIRE Primary Care Unavailable [facility] Consulting KEITH Lozano Attending Unavailable PEYMAN RODRIGEZ Admitting Unavailable JAGJIT GONZALES Consulting UnavailDAGMAR Springer Consulting Unavaila ble SYSTEM, PROVIDER NOT IN Referring Unavaila ble SYSTEM, PROVIDER NOT IN Admitting Unavaila ble ALAN CLAIRE Primary Care Unavailable Alyssa Nguyen Attending Unavailable Alyssa Nguyen Referring Unavailable [facility] [place] Pina Primary Care Unavailable See Bee Attending Unavailable [facility] Primary Care Unavailable Myles Rebollar Attending Unavailable Alejandro Sanders Referring Unavailable [facility] Primary Care Unavailable Alejandro Sanders Referring Unavailable [facility], [facility] Primary Care Unavailable Myles Rebollar Attending Unavailable [facility] Primary Care Unavailable Dae Goff Attending Unavailable [facility] Primary Care Unavailable Dae Goff Attending Unavailable [facility] Primary Care Unavailable Alyssa Nguyen Attending Unavailable Alyssa Nguyen Attending Unavailable [facility] Primary Care Unavailable Alyssa Nguyen Attending Unavailable Alyssa Nguyen Referring Unavailable [facility], [facility] Primary Care Unavailable [facility] [place] Attending Unavailable [facility], [facility] Unavailable Medications Current Medications Medication Drug [...] 2022 12:00am July 02, 2023 5:09pm sennosides, snf 8.6 mg oral capsule (1 source) Start: [...] Weekly bmp, cbc, and esr. Fax to [phone]. routine picc care per protocol. Problems Active [...] width (RBC) [Ratio] 14.0 % Normal 11.6-14.6 [facility] Comment on above: Order Comment: REDRA W. PREVIOUS SPECIMEN REJECTED DUE TO RESULTS NOT COMING THROUGH AND SEEM TO BE ERRONEOUS. 01/22/25219 Mora Patel. NOTIFIED DELMY FOR REDRAW Performed By: #### L 509.7001, L100.0100, L503.6005, L503.7505, L501.3620, L500.2500, L501.5200, L500.3400 #### [facility] [address] [place], [place], [id number] Hematocrit (Bld) [Volume fraction] 33.8 % Low 40-54 [facility] Comment on above: Order Comment: REDRA W. PREVIOUS SPECIMEN REJECTED DUE TO RESULTS NOT COMING THROUGH AND SEEM TO BE ERRONEOUS. 01/22/25219 Mora Patel. NOTIFIED DELMY FOR REDRAW Performed By: #### L 509.7001, L100.0100, L503.6005, L503.7505, L501.3620, L500.2500, L501.5200, L500.3400 #### [facility] [address] [place], [address] Hemoglobin (Bld) [Mass/Vol] 10.2 g/dL Low 13.0-16.5 [facility] Comment on above: Order Comment: REDRA W. PREVIOUS SPECIMEN REJECTED DUE TO RESULTS NOT COMING THROUGH AND SEEM TO BE ERRONEOUS. 01/22/25219 Mora Patel. NOTIFIED DELMY FOR REDRAW Performed By: #### L 509.7001, L100.0100, L503.6005, L503.7505, L501.3620, L500.2500, L501.5200, L500.3400 #### [facility] [address] [place], [address] MCH (RBC) [Entitic mass] 28.3 pg Normal 27.0-32.0 [facility] Comment on above: Order Comment: REDRA W. PREVIOUS SPECIMEN REJECTED DUE TO RESULTS NOT COMING THROUGH AND SEEM TO BE ERRONEOUS. 01/22/25219 Mora Patel. NOTIFIED DELMY FOR REDRAW Performed By: #### L 509.7001, L100.0100, L503.6005, L503.7505, L501.3620, L500.2500, L501.5200, L500.3400 #### [facility] [address] [place], [address] MCHC (RBC) [Mass/Vol] 30.2 g/dL Low 32-36 [facility] Comment on above: Order Comment: REDRA W. PREVIOUS SPECIMEN REJECTED DUE TO RESULTS NOT COMING THROUGH AND SEEM TO BE ERRONEOUS. 01/22/25219 Mora Patel. NOTIFIED DELMY FOR REDRAW Performed By: #### L 509.7001, L100.0100, L503.6005, L503.7505, L501.3620, L500.2500, L501.5200, L500.3400 #### [facility] [address] [place], [address] MCV (RBC) [Entitic vol] 93.9 fL Normal 80-94 [facility] Comment on above: Order Comment: REDRA W. PREVIOUS SPECIMEN REJECTED DUE TO RESULTS NOT COMING THROUGH AND SEEM TO BE ERRONEOUS. 01/22/25219 Mora Patel. NOTIFIED DELMY FOR REDRAW Performed By: #### L 509.7001, L100.0100, L503.6005, L503.7505, L501.3620, L500.2500, L501.5200, L500.3400 #### [facility] [address] [place], [address] Platelet mean volume (Bld) [Entitic vol] 9.1 fL Normal 6.2-12.0 [facility] Comment on above: Order Comment: REDRA W. PREVIOUS SPECIMEN REJECTED DUE TO RESULTS NOT COMING THROUGH AND SEEM TO BE ERRONEOUS. 01/22/25219 Mora Patel. NOTIFIED DELMY FOR REDRAW Performed By: #### L 509.7001, L100.0100, L503.6005, L503.7505, L501.3620, L500.2500, L501.5200, L500.3400 #### [facility] [address] [place], [address] Platelets (Bld) [#/Vol] 220 10*3/uL Normal 150-450 [facility] Comment on above: Order Comment: REDRA W. PREVIOUS SPECIMEN REJECTED DUE TO RESULTS NOT COMING THROUGH AND SEEM TO BE ERRONEOUS. 01/22/25219 Mora Paetl. NOTIFIED DELMY FOR REDRAW Performed By: #### L 509.7001, L100.0100, L503.6005, L503.7505, L501.3620, L500.2500, L501.5200, L500.3400 #### [facility] [address] [place], [address] RBC (Bld) [#/Vol] 3.60 10*6/uL Low 4.6-6.2 [facility] Comment on above: Order Comment: REDRA W. PREVIOUS SPECIMEN REJECTED DUE TO RESULTS NOT COMING THROUGH AND SEEM TO BE ERRONEOUS. 01/22/25219 Mora Patel. NOTIFIED DELMY FOR REDRAW Performed By: #### L 509.7001, L100.0100, L503.6005, L503.7505, L501.3620, L500.2500, L501.5200, L500.3400 #### [facility] [address] [place], [place], [id number] RDW SD 48.2 fl High 35.1-43.9 [facility] Comment on above: Order Comment: REDRA W. PREVIOUS SPECIMEN REJECTED DUE TO RESULTS NOT COMING THROUGH AND SEEM TO BE ERRONEOUS. 01/22/25219 Mora Ptael. NOTIFIED DELMY FOR REDRAW Performed By: #### L 509.7001, L100.0100, L503.6005, L503.7505, L501.3620, L500.2500, L501.5200, L500.3400 #### [facility] [address] [place], [place], [phone] WBC (Bld) [#/Vol] 4.6 10*3/uL Normal 4.4-11.0 [facility] Comment on above: Order Comment: REDRA W. PREVIOUS SPECIMEN REJECTED DUE TO RESULTS NOT COMING THROUGH AND SEEM TO BE ERRONEOUS. 01/22/25219 Mora Patel. NOTIFIED DELMY FOR REDRAW Performed By: #### L 509.7001, L100.0100, L503.6005, L503.7505, L501.3620, L500.2500, L501.5200, L500.3400 #### [facility] [address] [place], [place], [id number] Comprehensive Metabolic Prof akon 03-24-2025 Albumin [Mass/Vol] 2.5 g/dL Low 3.4-4.8 [facility] Comment on above: Order Comment: REDRA W. PREVIOUS SPECIMEN REJECTED DUE TO RESULTS NOT COMING THROUGH AND SEEM TO BE ERRONEOUS. 01/22/25219 Mora Patel. NOTIFIED DELMY FOR REDRAW Performed By: #### L 509.7001, L100.0100, L503.6005, L503.7505, L501.3620, L500.2500, L501.5200, L500.3400 #### [facility] [address] [place], [address] Albumin/Globulin [Mass ratio] 0.6 {ratio} Low 0.9-2.4 [facility] Comment on above: Order Comment: REDRA W. PREVIOUS SPECIMEN REJECTED DUE TO RESULTS NOT COMING THROUGH AND SEEM TO BE ERRONEOUS. 01/22/25219 Mora Patel. NOTIFIED DELMY FOR REDRAW Performed By: #### L 509.7001, L100.0100, L503.6005, L503.7505, L501.3620, L500.2500, L501.5200, L500.3400 #### [facility] [address] [place], [address] ALK PHOS 57 U/L Normal 40-129 [facility] Comment on above: Order Comment: REDRA W. PREVIOUS SPECIMEN REJECTED DUE TO RESULTS NOT COMING THROUGH AND SEEM TO BE ERRONEOUS. 01/22/25219 Mora Patel. NOTIFIED DELMY FOR REDRAW Performed By: #### L 509.7001, L100.0100, L503.6005, L503.7505, L501.3620, L500.2500, L501.5200, L500.3400 #### [facility] [address] [place], [address] ALT [Catalytic activity/Vol] 9 U/L Normal <=46 [facility] Comment on above: Order Comment: REDRA W. PREVIOUS SPECIMEN REJECTED DUE TO RESULTS NOT COMING THROUGH AND SEEM TO BE ERRONEOUS. 01/22/25219 Mora Patel. NOTIFIED DELMY FOR REDRAW Result Comment: Hemo lysis present, Results??could be affected. ?? Performed By: #### L 509.7001, L100.0100, L503.6005, L503.7505, L501.3620, L500.2500, L501.5200, L500.3400 #### [facility] [address] [place], [place], [phone] AST [Catalytic activity/Vol] 38 U/L Normal <=37 [facility] Comment on above: Order Comment: REDRA W. PREVIOUS SPECIMEN REJECTED DUE TO RESULTS NOT COMING THROUGH AND SEEM TO BE ERRONEOUS. 01/22/25219 Mora Patel. NOTIFIED DELMY FOR REDRAW Result Comment: Hemo lysis present, Results??could be affected. ?? Performed By: #### L 509.7001, L100.0100, L503.6005, L503.7505, L501.3620, L500.2500, L501.5200, L500.3400 #### [facility] [address] [place], [address] Bilirubin [Mass/Vol] 0.48 mg/dL Normal 0.00-1.30 [facility] Comment on above: Order Comment: REDRA W. PREVIOUS SPECIMEN REJECTED DUE TO RESULTS NOT COMING THROUGH AND SEEM TO BE ERRONEOUS. 01/22/25219 Mora Patel. NOTIFIED DELMY FOR REDRAW Performed By: #### L 509.7001, L100.0100, L503.6005, L503.7505, L501.3620, L500.2500, L501.5200, L500.3400 #### [facility] [address] [place], [place], [phone] (291) BUN/CRE 15.7 RATIO Normal 10-20 [facility] Comment on above: Order Comment: REDRA W. PREVIOUS SPECIMEN REJECTED DUE TO RESULTS NOT COMING THROUGH AND SEEM TO BE ERRONEOUS. 01/22/25219 Mora Patel. NOTIFIED DELMY FOR REDRAW Performed By: #### L 509.7001, L100.0100, L503.6005, L503.7505, L501.3620, L500.2500, L501.5200, L500.3400 #### [facility] [address] [place], [address] Calcium [Mass/Vol] 8.8 mg/dL Normal 7.6-11.0 [facility] Comment on above: Order Comment: REDRA W. PREVIOUS SPECIMEN REJECTED DUE TO RESULTS NOT COMING THROUGH AND SEEM TO BE ERRONEOUS. 01/22/25219 Mora Patel. NOTIFIED DELMY FOR REDRAW Performed By: #### L 509.7001, L100.0100, L503.6005, L503.7505, L501.3620, L500.2500, L501.5200, L500.3400 #### [facility] [address] [place], [address] Chloride [Moles/Vol] 106 mmol/L Normal 98-108 [facility] Comment on above: Order Comment: REDRA W. PREVIOUS SPECIMEN REJECTED DUE TO RESULTS NOT COMING THROUGH AND SEEM TO BE ERRONEOUS. 01/22/25219 Mora Patel. NOTIFIED DELMY FOR REDRAW Performed By: #### L 509.7001, L100.0100, L503.6005, L503.7505, L501.3620, L500.2500, L501.5200, L500.3400 #### [facility] [address] [place], [address] CO2 [Moles/Vol] 23.7 mmol/L Normal 21.0-32.0 [facility] Comment on above: Order Comment: REDRA W. PREVIOUS SPECIMEN REJECTED DUE TO RESULTS NOT COMING THROUGH AND SEEM TO BE ERRONEOUS. 01/22/25219 Mora Patel. NOTIFIED DELMY FOR REDRAW Performed By: #### L 509.7001, L100.0100, L503.6005, L503.7505, L501.3620, L500.2500, L501.5200, L500.3400 #### [facility] [address] [place], [address] Creatinine [Mass/Vol] 0.46 mg/dL Low 0.70-1.20 [facility] Comment on above: Order Comment: REDRA W. PREVIOUS SPECIMEN REJECTED DUE TO RESULTS NOT COMING THROUGH AND SEEM TO BE ERRONEOUS. 01/22/25219 Mora Patel. NOTIFIED DELMY FOR REDRAW Performed By: #### L 509.7001, L100.0100, L503.6005, L503.7505, L501.3620, L500.2500, L501.5200, L500.3400 #### [facility] [address] [place], [place], [id number] GAP 8 Normal 5-15 [facility] Comment on above: Order Comment: REDRA W. PREVIOUS SPECIMEN REJECTED DUE TO RESULTS NOT COMING THROUGH AND SEEM TO BE ERRONEOUS. 01/22/25219 oMra Patel. NOTIFIED DELMY FOR REDRAW Performed By: #### L 509.7001, L100.0100, L503.6005, L503.7505, L501.3620, L500.2500, L501.5200, L500.3400 #### [facility] [address] [place], [place], [id number] GFR/1.73 sq M.predicted among non-blacks MDRD (S/P/Bld) [Vol rate/Area] 112 mL/min/{1.73_m2} Normal >60 [facility] Comment on above: Order Comment: REDRA W. PREVIOUS SPECIMEN REJECTED DUE TO RESULTS NOT COMING THROUGH AND SEEM TO BE ERRONEOUS. 01/22/25219 Mora Patel. NOTIFIED DELMY FOR REDRAW Result Comment: mL/m in/1.73m2 CKD-EPI Creatinine Equation (2020) Performed By: #### L 509.7001, L100.0100, L503.6005, L503.7505, L501.3620, L500.2500, L501.5200, L500.3400 #### [facility] [address] [place], [place], [phone] Globulin (S) [Mass/Vol] 4.0 g/dL Normal 2.2-4.2 [facility] Comment on above: Order Comment: REDRA W. PREVIOUS SPECIMEN REJECTED DUE TO RESULTS NOT COMING THROUGH AND SEEM TO BE ERRONEOUS. 01/22/25219 Mora Patel. NOTIFIED DELMY FOR REDRAW Performed By: #### L 509.7001, L100.0100, L503.6005, L503.7505, L501.3620, L500.2500, L501.5200, L500.3400 #### [facility] [address] [place], [address] Glucose [Mass/Vol] 90 mg/dL Normal 70-99 [facility] Comment on above: Order Comment: REDRA W. PREVIOUS SPECIMEN REJECTED DUE TO RESULTS NOT COMING THROUGH AND SEEM TO BE ERRONEOUS. 01/22/25219 Mora Patel. NOTIFIED DELMY FOR REDRAW Performed By: #### L 509.7001, L100.0100, L503.6005, L503.7505, L501.3620, L500.2500, L501.5200, L500.3400 #### [facility] [address] [place], [address] Potassium [Moles/Vol] 4.2 mmol/L Normal 3.3-5.1 [facility] Comment on above: Order Comment: REDRA W. PREVIOUS SPECIMEN REJECTED DUE TO RESULTS NOT COMING THROUGH AND SEEM TO BE ERRONEOUS. 01/22/25219 Mora Patel. NOTIFIED DELMY FOR REDRAW Result Comment: Hemo lysis present, Results??could be affected. ?? Performed By: #### L 509.7001, L100.0100, L503.6005, L503.7505, L501.3620, L500.2500, L501.5200, L500.3400 #### [facility] [address] [place], [address] Sodium [Moles/Vol] 137 mmol/L Normal 133-145 [facility] Comment on above: Order Comment: REDRA W. PREVIOUS SPECIMEN REJECTED DUE TO RESULTS NOT COMING THROUGH AND SEEM TO BE ERRONEOUS. 01/22/25219 Mora Patel. NOTIFIED DELMY FOR REDRAW Performed By: #### L 509.7001, L100.0100, L503.6005, L503.7505, L501.3620, L500.2500, L501.5200, L500.3400 #### [facility] [address] [place], [address] T PROT 6.5 g/dL Normal 5.9-8.4 [facility] Comment on above: Order Comment: REDRA W. PREVIOUS SPECIMEN REJECTED DUE TO RESULTS NOT COMING THROUGH AND SEEM TO BE ERRONEOUS. 01/22/25219 Mora Patel. NOTIFIED DELMY FOR REDRAW Performed By: #### L 509.7001, L100.0100, L503.6005, L503.7505, L501.3620, L500.2500, L501.5200, L500.3400 #### [facility] [address] [place], [place], [phone] Urea nitrogen [Mass/Vol] 7 mg/dL Normal 4-19 [facility] Comment on above: Order Comment: REDRA W. PREVIOUS SPECIMEN REJECTED DUE TO RESULTS NOT COMING THROUGH AND SEEM TO BE ERRONEOUS. 01/22/25219 oMra Patel. NOTIFIED DELMY FOR REDRAW Performed By: #### L 509.7001, L100.0100, L503.6005, L503.7505, L501.3620, L500.2500, L501.5200, L500.3400 #### [facility] [address] [place], [address] CBC-Complete Blood Cnt No Di ffon 03-17-2025 Erythrocyte distribution width (RBC) [Ratio] 14.1 % Normal 11.6-14.6 [facility] Comment on above: Order Comment: 301.1 Performed By: #### L 503.7505, L100.0500, L500.4050 #### [facility] [address] [place], [address] Hematocrit (Bld) [Volume fraction] 32.6 % Low 40-54 [facility] Comment on above: Order Comment: 301.1 Performed By: #### L 503.7505, L100.0500, L500.4050 #### [facility] [address] [place], [address] Hemoglobin (Bld) [Mass/Vol] 10.1 g/dL Low 13.0-16.5 [facility] Comment on above: Order Comment: 301.1 Performed By: #### L 503.7505, L100.0500, L500.4050 #### [facility] [address] [place], [address] MCH (RBC) [Entitic mass] 28.3 pg Normal 27.0-32.0 [facility] Comment on above: Order Comment: 301.1 Performed By: #### L 503.7505, L100.0500, L500.4050 #### [facility] [address] [place], [address] MCHC (RBC) [Mass/Vol] 31.0 g/dL Low 32-36 [facility] Comment on above: Order Comment: 301.1 Performed By: #### L 503.7505, L100.0500, L500.4050 #### [facility] [address] [place], [address] MCV (RBC) [Entitic vol] 91.3 fL Normal 80-94 [facility] Comment on above: Order Comment: 301.1 Performed By: #### L 503.7505, L100.0500, L500.4050 #### [facility] [address] [place], [address] Platelet mean volume (Bld) [Entitic vol] 9.8 fL Normal 6.2-12.0 [facility] Comment on above: Order Comment: 301.1 Performed By: #### L 503.7505, L100.0500, L500.4050 #### [facility] [address] [place], [address] Platelets (Bld) [#/Vol] 225 10*3/uL Normal 150-450 [facility] Comment on above: Order Comment: 301.1 Performed By: #### L 503.7505, L100.0500, L500.4050 #### [facility] [address] [place], [address] RBC (Bld) [#/Vol] 3.57 10*6/uL Low 4.6-6.2 [facility] Comment on above: Order Comment: 301.1 Performed By: #### L 503.7505, L100.0500, L500.4050 #### [facility] [address] [place], [address] RDW SD 47.6 fl High 35.1-43.9 [facility] Comment on above: Order Comment: 301.1 Performed By: #### L 503.7505, L100.0500, L500.4050 #### [facility] [address] [place], [address] WBC (Bld) [#/Vol] 5.5 10*3/uL Normal 4.4-11.0 [facility] Comment on above: Order Comment: 301.1 Performed By: #### L 503.7505, L100.0500, L500.4050 #### [facility] [address] [place], [address] Comprehensive Metabolic Prof ilon 03-17-2025 Albumin [Mass/Vol] 2.2 g/dL Low 3.4-4.8 [facility] Comment on above: Order Comment: SHREYAS Sommer PREVIOUS SPECIMEN REJECTED DUE TO RESULTS NOT COMING THROUGH AND SEEM TO BE ERRONEOUS. 01/22/25219 Mora Patel. NOTIFIED DELMY FOR REDRAW Performed By: #### L 509.7001, L100.0100, L503.6005, L503.7505, L501.3620, L500.2500, L501.5200, L500.3400 #### [facility] [address] [place], [address] Albumin/Globulin [Mass ratio] 0.6 {ratio} Low 0.9-2.4 [facility] Comment on above: Order Comment: REDRA W. PREVIOUS SPECIMEN REJECTED DUE TO RESULTS NOT COMING THROUGH AND SEEM TO BE ERRONEOUS. 01/22/25219 Mora Patel. NOTIFIED DELMY FOR REDRAW Performed By: #### L 509.7001, L100.0100, L503.6005, L503.7505, L501.3620, L500.2500, L501.5200, L500.3400 #### [facility] [address] [place], [place], [phone] PHOS 58 U/L Normal 40-129 [facility] Comment on above: Order Comment: REDRA W. PREVIOUS SPECIMEN REJECTED DUE TO RESULTS NOT COMING THROUGH AND SEEM TO BE ERRONEOUS. 01/22/25219 Mora Patel. NOTIFIED DELMY FOR REDRAW Performed By: #### L 509.7001, L100.0100, L503.6005, L503.7505, L501.3620, L500.2500, L501.5200, L500.3400 #### [facility] [address] [place], [address] ALT [Catalytic activity/Vol] 12 U/L Normal <=46 [facility] Comment on above: Order Comment: REDRA W. PREVIOUS SPECIMEN REJECTED DUE TO RESULTS NOT COMING THROUGH AND SEEM TO BE ERRONEOUS. 01/22/25219 Mora Patel. NOTIFIED DELMY FOR REDRAW Performed By: #### L 509.7001, L100.0100, L503.6005, L503.7505, L501.3620, L500.2500, L501.5200, L500.3400 #### [facility] [address] [place], [address] AST [Catalytic activity/Vol] 35 U/L Normal <=37 [facility] Comment on above: Order Comment: REDRA W. PREVIOUS SPECIMEN REJECTED DUE TO RESULTS NOT COMING THROUGH AND SEEM TO BE ERRONEOUS. 01/22/25219 Mora Patel. NOTIFIED DELMY FOR REDRAW Result Comment: Hemo lysis present, Results??could be affected. ?? Performed By: #### L 509.7001, L100.0100, L503.6005, L503.7505, L501.3620, L500.2500, L501.5200, L500.3400 #### [facility] [address] [place], [address] Bilirubin [Mass/Vol] 0.52 mg/dL Normal 0.00-1.30 [facility] Comment on above: Order Comment: REDRA W. PREVIOUS SPECIMEN REJECTED DUE TO RESULTS NOT COMING THROUGH AND SEEM TO BE ERRONEOUS. 01/22/25219 Mora Patel. NOTIFIED DELMY FOR REDRAW Performed By: #### L 509.7001, L100.0100, L503.6005, L503.7505, L501.3620, L500.2500, L501.5200, L500.3400 #### [facility] [address] [place], [address] BUN/CRE 14.1 RATIO Normal 10-20 [facility] Comment on above: Order Comment: REDRA W. PREVIOUS SPECIMEN REJECTED DUE TO RESULTS NOT COMING THROUGH AND SEEM TO BE ERRONEOUS. 01/22/25219 Mora Patel. NOTIFIED DELMY FOR REDRAW Performed By: #### L 509.7001, L100.0100, L503.6005, L503.7505, L501.3620, L500.2500, L501.5200, L500.3400 #### [facility] [address] [place], [address] Calcium [Mass/Vol] 8.2 mg/dL Normal 7.6-11.0 [facility] Comment on above: Order Comment: REDRA W. PREVIOUS SPECIMEN REJECTED DUE TO RESULTS NOT COMING THROUGH AND SEEM TO BE ERRONEOUS. 01/22/25219 Mora Patel. NOTIFIED DELMY FOR REDRAW Performed By: #### L 509.7001, L100.0100, L503.6005, L503.7505, L501.3620, L500.2500, L501.5200, L500.3400 #### [facility] [address] [place], [address] Chloride [Moles/Vol] 104 mmol/L Normal 98-108 [facility] Comment on above: Order Comment: REDRA W. PREVIOUS SPECIMEN REJECTED DUE TO RESULTS NOT COMING THROUGH AND SEEM TO BE ERRONEOUS. 01/22/25219 Mora Patel. NOTIFIED DELMY FOR REDRAW Performed By: #### L 509.7001, L100.0100, L503.6005, L503.7505, L501.3620, L500.2500, L501.5200, L500.3400 #### [facility] [address] [place], [address] CO2 [Moles/Vol] 21.2 mmol/L Normal 21.0-32.0 [facility] Comment on above: Order Comment: REDRA W. PREVIOUS SPECIMEN REJECTED DUE TO RESULTS NOT COMING THROUGH AND SEEM TO BE ERRONEOUS. 01/22/25219 Mora Patel. NOTIFIED DELMY FOR REDRAW Performed By: #### L 509.7001, L100.0100, L503.6005, L503.7505, L501.3620, L500.2500, L501.5200, L500.3400 #### [facility] [address] [place], [address] Creatinine [Mass/Vol] 0.46 mg/dL Low 0.70-1.20 [facility] Comment on above: Order Comment: REDRA W. PREVIOUS SPECIMEN REJECTED DUE TO RESULTS NOT COMING THROUGH AND SEEM TO BE ERRONEOUS. 01/22/25219 Mora Patel. NOTIFIED DELMY FOR REDRAW Performed By: #### L 509.7001, L100.0100, L503.6005, L503.7505, L501.3620, L500.2500, L501.5200, L500.3400 #### [facility] [address] [place], [place], [phone] GAP 9 Normal 5-15 [facility] Comment on above: Order Comment: REDRA W. PREVIOUS SPECIMEN REJECTED DUE TO RESULTS NOT COMING THROUGH AND SEEM TO BE ERRONEOUS. 01/22/25219 Mora Patel. NOTIFIED DELMY FOR REDRAW Performed By: #### L 509.7001, L100.0100, L503.6005, L503.7505, L501.3620, L500.2500, L501.5200, L500.3400 #### [facility] [address] [place], [place], [phone] (085) GFR/1.73 sq M.predicted among non-blacks MDRD (S/P/Bld) [Vol rate/Area] 112 mL/min/{1.73_m2} Normal >60 [facility] Comment on above: Order Comment: REDRA W. PREVIOUS SPECIMEN REJECTED DUE TO RESULTS NOT COMING THROUGH AND SEEM TO BE ERRONEOUS. 01/22/25219 Mora Patel. NOTIFIED DELMY FOR REDRAW Result Comment: mL/m in/1.73m2 CKD-EPI Creatinine Equation (2020) Performed By: #### L 509.7001, L100.0100, L503.6005, L503.7505, L501.3620, L500.2500, L501.5200, L500.3400 #### [facility] [address] [place], [place], [phone] ([phone] Globulin (S) [Mass/Vol] 3.6 g/dL Normal 2.2-4.2 [facility] Comment on above: Order Comment: REDRA W. PREVIOUS SPECIMEN REJECTED DUE TO RESULTS NOT COMING THROUGH AND SEEM TO BE ERRONEOUS. 01/22/25219 Mora Patel. NOTIFIED DELMY FOR REDRAW Performed By: #### L 509.7001, L100.0100, L503.6005, L503.7505, L501.3620, L500.2500, L501.5200, L500.3400 #### [facility] [address] [place], [address] Glucose [Mass/Vol] 83 mg/dL Normal 70-99 [facility] Comment on above: Order Comment: REDRA W. PREVIOUS SPECIMEN REJECTED DUE TO RESULTS NOT COMING THROUGH AND SEEM TO BE ERRONEOUS. 01/22/25219 Mora Patel. NOTIFIED DELMY FOR REDRAW Performed By: #### L 509.7001, L100.0100, L503.6005, L503.7505, L501.3620, L500.2500, L501.5200, L500.3400 #### [facility] [address] [place], [address] Potassium [Moles/Vol] 4.3 mmol/L Normal 3.3-5.1 [facility] Comment on above: Order Comment: REDRA W. PREVIOUS SPECIMEN REJECTED DUE TO RESULTS NOT COMING THROUGH AND SEEM TO BE ERRONEOUS. 01/22/25219 Mora Patel. NOTIFIED DELMY FOR REDRAW Result Comment: Hemo lysis present, Results??could be affected. ?? Performed By: #### L 509.7001, L100.0100, L503.6005, L503.7505, L501.3620, L500.2500, L501.5200, L500.3400 #### [facility] [address] [place], [address] Sodium [Moles/Vol] 135 mmol/L Normal 133-145 [facility] Comment on above: Order Comment: REDRA W. PREVIOUS SPECIMEN REJECTED DUE TO RESULTS NOT COMING THROUGH AND SEEM TO BE ERRONEOUS. 01/22/25219 Mora Patel. NOTIFIED DELMY FOR REDRAW Performed By: #### L 509.7001, L100.0100, L503.6005, L503.7505, L501.3620, L500.2500, L501.5200, L500.3400 #### [facility] [address] [place], [address] T PROT 5.8 g/dL Low 5.9-8.4 [facility] Comment on above: Order Comment: REDRA W. PREVIOUS SPECIMEN REJECTED DUE TO RESULTS NOT COMING THROUGH AND SEEM TO BE ERRONEOUS. 01/22/25219 Mora Patel. NOTIFIED DELMY FOR REDRAW Performed By: #### L 509.7001, L100.0100, L503.6005, L503.7505, L501.3620, L500.2500, L501.5200, L500.3400 #### [facility] [address] [place], [address] Urea nitrogen [Mass/Vol] 6 mg/dL Normal 4-19 [facility] Comment on above: Order Comment: REDRA W. PREVIOUS SPECIMEN REJECTED DUE TO RESULTS NOT COMING THROUGH AND SEEM TO BE ERRONEOUS. 01/22/25219 Mora Patel. NOTIFIED DELMY FOR REDRAW Performed By: #### L 509.7001, L100.0100, L503.6005, L503.7505, L501.3620, L500.2500, L501.5200, L500.3400 #### [facility] [address] [place], [address] Pro- Brain NATRIURETIC PEPTI Ashlee 03-17-2025 Natriuretic peptide B (Bld) [Mass/Vol] 443 pg/mL Normal <=900 [facility] Comment on above: Order Comment: REDRA W. [...] L503.6005, L503.7505, L501.3620, L500.2500, L501.5200, L500.3400 #### [facility] [place], [address] Wound Cultureon 03-11-2025 #2 [facility] RE[facility] ACINETOBACTER BAUMANNII CARBAPENEMASE MOLECULAR [...] TMP SMX Islt TAMMY <=20 S Normal [facility] Comment on above: Performed By: #### L 509.7001, L100.0100, L503.6005, L503.7505, L501.3620, L500.2500, L501.5200, L500.3400 #### [facility] [address] [place], [address] CBC W/Diff, Automatedon 10-2 Absolute Lymph 0.58 X10 3/uL Low 0.83-4.51 [facility] Comment on above: Order Comment: REDRA W. PREVIOUS SPECIMEN REJECTED DUE TO RESULTS NOT COMING THROUGH AND SEEM TO BE ERRONEOUS. 01/22/25219 Mora Patel. NOTIFIED DELMY FOR REDRAW Performed By: #### L 509.7001, L100.0100, L503.6005, L503.7505, L501.3620, L500.2500, L501.5200, L500.3400 #### [facility] [address] [place], [address] Absolute Neut 14.2 X10 3/uL High 2.0-7.7 [facility] Comment on above: Order Comment: REDRA W. PREVIOUS SPECIMEN REJECTED DUE TO RESULTS NOT COMING THROUGH AND SEEM TO BE ERRONEOUS. 01/22/25219 Mora Patel. NOTIFIED DELMY FOR REDRAW Performed By: #### L 509.7001, L100.0100, L503.6005, L503.7505, L501.3620, L500.2500, L501.5200, L500.3400 #### [facility] [address] [place], [address] Basophils/100 WBC (Bld) 0.5 % Normal 0-1 [facility] Comment on above: Order Comment: REDRA W. PREVIOUS SPECIMEN REJECTED DUE TO RESULTS NOT COMING THROUGH AND SEEM TO BE ERRONEOUS. 01/22/25219 Mora Patel. NOTIFIED DELMY FOR REDRAW Performed By: #### L 509.7001, L100.0100, L503.6005, L503.7505, L501.3620, L500.2500, L501.5200, L500.3400 #### [facility] [address] [place], [address] Eosinophils/100 WBC (Bld) 1.8 % Normal 0-5 [facility] Comment on above: Order Comment: REDRA W. PREVIOUS SPECIMEN REJECTED DUE TO RESULTS NOT COMING THROUGH AND SEEM TO BE ERRONEOUS. 01/22/25219 Mora Patel. NOTIFIED DELMY FOR REDRAW Performed By: #### L 509.7001, L100.0100, L503.6005, L503.7505, L501.3620, L500.2500, L501.5200, L500.3400 #### [facility] [address] [place], [address] Erythrocyte distribution width (RBC) [Ratio] 15.0 % High 11.6-14.6 [facility] Comment on above: Order Comment: REDRA W. PREVIOUS SPECIMEN REJECTED DUE TO RESULTS NOT COMING THROUGH AND SEEM TO BE ERRONEOUS. 01/22/25219 Mora Patel. NOTIFIED DELMY FOR REDRAW Performed By: #### L 509.7001, L100.0100, L503.6005, L503.7505, L501.3620, L500.2500, L501.5200, L500.3400 #### [facility] [address] [place], [address] Hematocrit (Bld) [Volume fraction] 34.6 % Low 40-54 [facility] Comment on above: Order Comment: REDRA W. PREVIOUS SPECIMEN REJECTED DUE TO RESULTS NOT COMING THROUGH AND SEEM TO BE ERRONEOUS. 01/22/25219 Mora Patel. NOTIFIED DELMY FOR REDRAW Performed By: #### L 509.7001, L100.0100, L503.6005, L503.7505, L501.3620, L500.2500, L501.5200, L500.3400 #### [facility] [address] [place], [address] Hemoglobin (Bld) [Mass/Vol] 10.8 g/dL Low 13.0-16.5 [facility] Comment on above: Order Comment: REDRA W. PREVIOUS SPECIMEN REJECTED DUE TO RESULTS NOT COMING THROUGH AND SEEM TO BE ERRONEOUS. 01/22/25219 Mora Patel. NOTIFIED DELMY FOR REDRAW Performed By: #### L 509.7001, L100.0100, L503.6005, L503.7505, L501.3620, L500.2500, L501.5200, L500.3400 #### [facility] [address] [place], [address] IG% 1.100 High 0.0-0.9 [facility] Comment on above: Order Comment: REDRA W. PREVIOUS SPECIMEN REJECTED DUE TO RESULTS NOT COMING THROUGH AND SEEM TO BE ERRONEOUS. 01/22/25219 Mroa Patel. NOTIFIED DELMY FOR REDRAW Result Comment: IG% - Immature Granulocytes (promyelocytes, myelocytes and metamyelocytes) > 1% indicates that a LEFT SHIFT is Present. Performed By: #### L 509.7001, L100.0100, L503.6005, L503.7505, L501.3620, L500.2500, L501.5200, L500.3400 #### [facility] [address] [place], [address] Lymphocytes/100 WBC (Bld) 3.7 % Low 19-41 [facility] Comment on above: Order Comment: REDRA W. PREVIOUS SPECIMEN REJECTED DUE TO RESULTS NOT COMING THROUGH AND SEEM TO BE ERRONEOUS. 01/22/25219 Mora Patel. NOTIFIED DELMY FOR REDRAW Performed By: #### L 509.7001, L100.0100, L503.6005, L503.7505, L501.3620, L500.2500, L501.5200, L500.3400 #### [facility] [address] [place], [address] MCH (RBC) [Entitic mass] 28.7 pg Normal 27.0-32.0 [facility] Comment on above: Order Comment: REDRA W. PREVIOUS SPECIMEN REJECTED DUE TO RESULTS NOT COMING THROUGH AND SEEM TO BE ERRONEOUS. 01/22/25219 Mora Patel. NOTIFIED DELMY FOR REDRAW Performed By: #### L 509.7001, L100.0100, L503.6005, L503.7505, L501.3620, L500.2500, L501.5200, L500.3400 #### [facility] [address] [place], [address] MCHC (RBC) [Mass/Vol] 31.2 g/dL Low 32-36 [facility] Comment on above: Order Comment: REDRA W. PREVIOUS SPECIMEN REJECTED DUE TO RESULTS NOT COMING THROUGH AND SEEM TO BE ERRONEOUS. 01/22/25219 Mora Patel. NOTIFIED DELMY FOR REDRAW Performed By: #### L 509.7001, L100.0100, L503.6005, L503.7505, L501.3620, L500.2500, L501.5200, L500.3400 #### [facility] [address] [place], [address] MCV (RBC) [Entitic vol] 92.0 fL Normal 80-94 [facility] Comment on above: Order Comment: REDRA W. PREVIOUS SPECIMEN REJECTED DUE TO RESULTS NOT COMING THROUGH AND SEEM TO BE ERRONEOUS. 01/22/25219 Mora Patel. NOTIFIED DELMY FOR REDRAW Performed By: #### L 509.7001, L100.0100, L503.6005, L503.7505, L501.3620, L500.2500, L501.5200, L500.3400 #### [facility] [address] [place], [address] Monocytes/100 WBC (Bld) 1.2 % Normal 0-10 [facility] Comment on above: Order Comment: REDRA W. PREVIOUS SPECIMEN REJECTED DUE TO RESULTS NOT COMING THROUGH AND SEEM TO BE ERRONEOUS. 01/22/25219 Mora Patel. NOTIFIED DELMY FOR REDRAW Performed By: #### L 509.7001, L100.0100, L503.6005, L503.7505, L501.3620, L500.2500, L501.5200, L500.3400 #### [facility] [address] [place], [address] Neutrophils/100 WBC (Bld) 91.7 % High 47-70 [facility] Comment on above: Order Comment: REDRA W. PREVIOUS SPECIMEN REJECTED DUE TO RESULTS NOT COMING THROUGH AND SEEM TO BE ERRONEOUS. 01/22/25219 Mora Patel. NOTIFIED DELMY FOR REDRAW Performed By: #### L 509.7001, L100.0100, L503.6005, L503.7505, L501.3620, L500.2500, L501.5200, L500.3400 #### [facility] [address] [place], [address] Nucleated RBC (Bld) [#/Vol] 0 10*3/uL Normal 0-5 [facility] Comment on above: Order Comment: REDRA W. PREVIOUS SPECIMEN REJECTED DUE TO RESULTS NOT COMING THROUGH AND SEEM TO BE ERRONEOUS. 01/22/25219 Mora Patel. NOTIFIED DELMY FOR REDRAW Performed By: #### L 509.7001, L100.0100, L503.6005, L503.7505, L501.3620, L500.2500, L501.5200, L500.3400 #### [facility] [address] [place], [address] Platelet mean volume (Bld) [Entitic vol] 9.0 fL Normal 6.2-12.0 [facility] Comment on above: Order Comment: REDRA W. PREVIOUS SPECIMEN REJECTED DUE TO RESULTS NOT COMING THROUGH AND SEEM TO BE ERRONEOUS. 01/22/25219 Mora Patel. NOTIFIED DELMY FOR REDRAW Performed By: #### L 509.7001, L100.0100, L503.6005, L503.7505, L501.3620, L500.2500, L501.5200, L500.3400 #### [facility] [address] [place], [address] Platelets (Bld) [#/Vol] 327 10*3/uL Normal 150-450 [facility] Comment on above: Order Comment: REDRA W. PREVIOUS SPECIMEN REJECTED DUE TO RESULTS NOT COMING THROUGH AND SEEM TO BE ERRONEOUS. 01/22/25219 Mora Patel. NOTIFIED DELMY FOR REDRAW Performed By: #### L 509.7001, L100.0100, L503.6005, L503.7505, L501.3620, L500.2500, L501.5200, L500.3400 #### [facility] [address] [place], [address] RBC (Bld) [#/Vol] 3.76 10*6/uL Low 4.6-6.2 [facility] Comment on above: Order Comment: REDRA W. PREVIOUS SPECIMEN REJECTED DUE TO RESULTS NOT COMING THROUGH AND SEEM TO BE ERRONEOUS. 01/22/25219 Mora Patel. NOTIFIED DELMY FOR REDRAW Performed By: #### L 509.7001, L100.0100, L503.6005, L503.7505, L501.3620, L500.2500, L501.5200, L500.3400 #### [facility] [address] [place], [address] RDW SD 50.4 fl High 35.1-43.9 [facility] Comment on above: Order Comment: REDRA W. PREVIOUS SPECIMEN REJECTED DUE TO RESULTS NOT COMING THROUGH AND SEEM TO BE ERRONEOUS. 01/22/25219 Mora Patel. NOTIFIED DELMY FOR REDRAW Performed By: #### L 509.7001, L100.0100, L503.6005, L503.7505, L501.3620, L500.2500, L501.5200, L500.3400 #### [facility] [address] [place], [place], [id number] WBC (Bld) [#/Vol] 15.5 10*3/uL High 4.4-11.0 [facility] Comment on above: Order Comment: REDRA W. PREVIOUS SPECIMEN REJECTED DUE TO RESULTS NOT COMING THROUGH AND SEEM TO BE ERRONEOUS. 01/22/25219 Mora Patel. NOTIFIED DELMY FOR REDRAW Performed By: #### L 509.7001, L100.0100, L503.6005, L503.7505, L501.3620, L500.2500, L501.5200, L500.3400 #### [facility] [address] [place], [place], [id number] CRPon 03-10-2025 C-REACTIVE PROT 21.40 mg/L High 0.0-3.0 [facility] Comment on above: Order Comment: REDRA W. PREVIOUS SPECIMEN REJECTED DUE TO RESULTS NOT COMING THROUGH AND SEEM TO BE ERRONEOUS. 01/22/25219 Mora Patel. NOTIFIED DELMY FOR REDRAW Performed By: #### L 509.7001, L100.0100, L503.6005, L503.7505, L501.3620, L500.2500, L501.5200, L500.3400 #### [facility] [address] [place], [place], [phone] Comprehensive Metabolic Prof ilon 03-10-2025 Albumin [Mass/Vol] 2.4 g/dL Low 3.4-4.8 [facility] Comment on above: Order Comment: REDRA W. PREVIOUS SPECIMEN REJECTED DUE TO RESULTS NOT COMING THROUGH AND SEEM TO BE ERRONEOUS. 01/22/25219 Mora Patel. NOTIFIED DELMY FOR REDRAW Performed By: #### L 509.7001, L100.0100, L503.6005, L503.7505, L501.3620, L500.2500, L501.5200, L500.3400 #### [facility] [address] [place], [address] Albumin/Globulin [Mass ratio] 0.5 {ratio} Low 0.9-2.4 [facility] Comment on above: Order Comment: REDRA W. PREVIOUS SPECIMEN REJECTED DUE TO RESULTS NOT COMING THROUGH AND SEEM TO BE ERRONEOUS. 01/22/25219 Mora Patel. NOTIFIED DELMY FOR REDRAW Performed By: #### L 509.7001, L100.0100, L503.6005, L503.7505, L501.3620, L500.2500, L501.5200, L500.3400 #### [facility] [address] [place], [address] ([phone] ALK PHOS 76 U/L Normal 40-129 [facility] Comment on above: Order Comment: REDRA W. PREVIOUS SPECIMEN REJECTED DUE TO RESULTS NOT COMING THROUGH AND SEEM TO BE ERRONEOUS. 01/22/25219 Mora Patel. NOTIFIED DELMY FOR REDRAW Performed By: #### L 509.7001, L100.0100, L503.6005, L503.7505, L501.3620, L500.2500, L501.5200, L500.3400 #### [facility] [address] [place], [place], [phone] (458 ALT [Catalytic activity/Vol] 14 U/L Normal <=46 [facility] Comment on above: Order Comment: REDRA W. PREVIOUS SPECIMEN REJECTED DUE TO RESULTS NOT COMING THROUGH AND SEEM TO BE ERRONEOUS. 01/22/25219 Mora Patel. NOTIFIED DELMY FOR REDRAW Performed By: #### L 509.7001, L100.0100, L503.6005, L503.7505, L501.3620, L500.2500, L501.5200, L500.3400 #### [facility] [address] [place], [address] AST [Catalytic activity/Vol] 32 U/L Normal <=37 [facility] Comment on above: Order Comment: REDRA W. PREVIOUS SPECIMEN REJECTED DUE TO RESULTS NOT COMING THROUGH AND SEEM TO BE ERRONEOUS. 01/22/25219 Mora Patel. NOTIFIED DELMY FOR REDRAW Performed By: #### L 509.7001, L100.0100, L503.6005, L503.7505, L501.3620, L500.2500, L501.5200, L500.3400 #### [facility] [address] [place], [address] Bilirubin [Mass/Vol] 0.56 mg/dL Normal 0.00-1.30 [facility] Comment on above: Order Comment: REDRA W. PREVIOUS SPECIMEN REJECTED DUE TO RESULTS NOT COMING THROUGH AND SEEM TO BE ERRONEOUS. 01/22/25219 Mora Patel. NOTIFIED DELMY FOR REDRAW Performed By: #### L 509.7001, L100.0100, L503.6005, L503.7505, L501.3620, L500.2500, L501.5200, L500.3400 #### [facility] [address] [place], [address] BUN/CRE 12.7 RATIO Normal 10-20 [facility] Comment on above: Order Comment: REDRA W. PREVIOUS SPECIMEN REJECTED DUE TO RESULTS NOT COMING THROUGH AND SEEM TO BE ERRONEOUS. 01/22/25219 Mora Patel. NOTIFIED DELMY FOR REDRAW Performed By: #### L 509.7001, L100.0100, L503.6005, L503.7505, L501.3620, L500.2500, L501.5200, L500.3400 #### [facility] [address] [place], [address] Calcium [Mass/Vol] 8.8 mg/dL Normal 7.6-11.0 [facility] Comment on above: Order Comment: REDRA W. PREVIOUS SPECIMEN REJECTED DUE TO RESULTS NOT COMING THROUGH AND SEEM TO BE ERRONEOUS. 01/22/25219 Mora Patel. NOTIFIED DELMY FOR REDRAW Performed By: #### L 509.7001, L100.0100, L503.6005, L503.7505, L501.3620, L500.2500, L501.5200, L500.3400 #### [facility] [address] [place], [place], [phone] ([phone] Chloride [Moles/Vol] 102 mmol/L Normal 98-108 [facility] Comment on above: Order Comment: REDRA W. PREVIOUS SPECIMEN REJECTED DUE TO RESULTS NOT COMING THROUGH AND SEEM TO BE ERRONEOUS. 01/22/25219 Mora Patel. NOTIFIED DELMY FOR REDRAW Performed By: #### L 509.7001, L100.0100, L503.6005, L503.7505, L501.3620, L500.2500, L501.5200, L500.3400 #### [facility] [address] [place], [address] CO2 [Moles/Vol] 21.8 mmol/L Normal 21.0-32.0 [facility] Comment on above: Order Comment: REDRA W. PREVIOUS SPECIMEN REJECTED DUE TO RESULTS NOT COMING THROUGH AND SEEM TO BE ERRONEOUS. 01/22/25219 Mora Patel. NOTIFIED DELMY FOR REDRAW Performed By: #### L 509.7001, L100.0100, L503.6005, L503.7505, L501.3620, L500.2500, L501.5200, L500.3400 #### [facility] [address] [place], [place], [phone] ([phone]) Creatinine [Mass/Vol] 0.45 mg/dL Low 0.70-1.20 [facility] Comment on above: Order Comment: REDRA W. PREVIOUS SPECIMEN REJECTED DUE TO RESULTS NOT COMING THROUGH AND SEEM TO BE ERRONEOUS. 01/22/25219 Mora Patel. NOTIFIED DELMY FOR REDRAW Performed By: #### L 509.7001, L100.0100, L503.6005, L503.7505, L501.3620, L500.2500, L501.5200, L500.3400 #### [facility] [address] [place], [place], [phone] GAP 13 Normal 5-15 [facility] Comment on above: Order Comment: REDRA W. PREVIOUS SPECIMEN REJECTED DUE TO RESULTS NOT COMING THROUGH AND SEEM TO BE ERRONEOUS. 01/22/25219 Mora Patel. NOTIFIED DELMY FOR REDRAW Performed By: #### L 509.7001, L100.0100, L503.6005, L503.7505, L501.3620, L500.2500, L501.5200, L500.3400 #### [facility] [address] [place], [address] GFR/1.73 sq M.predicted among non-blacks MDRD (S/P/Bld) [Vol rate/Area] 112 mL/min/{1.73_m2} Normal >60 [facility] Comment on above: Order Comment: REDRA W. PREVIOUS SPECIMEN REJECTED DUE TO RESULTS NOT COMING THROUGH AND SEEM TO BE ERRONEOUS. 01/22/25219 Mora Patel. NOTIFIED DELMY FOR REDRAW Result Comment: mL/m in/1.73m2 CKD-EPI Creatinine Equation (2020) Performed By: #### L 509.7001, L100.0100, L503.6005, L503.7505, L501.3620, L500.2500, L501.5200, L500.3400 #### [facility] [address] [place], [place], [phone] Globulin (S) [Mass/Vol] 4.7 g/dL High 2.2-4.2 [facility] Comment on above: Order Comment: REDRA W. PREVIOUS SPECIMEN REJECTED DUE TO RESULTS NOT COMING THROUGH AND SEEM TO BE ERRONEOUS. 01/22/25219 Mora Patel. NOTIFIED DELMY FOR REDRAW Performed By: #### L 509.7001, L100.0100, L503.6005, L503.7505, L501.3620, L500.2500, L501.5200, L500.3400 #### [facility] [address] [place], [address] Glucose [Mass/Vol] 71 mg/dL Normal 70-99 [facility] Comment on above: Order Comment: REDRA W. PREVIOUS SPECIMEN REJECTED DUE TO RESULTS NOT COMING THROUGH AND SEEM TO BE ERRONEOUS. 01/22/25219 Mora Patel. NOTIFIED DELMY FOR REDRAW Performed By: #### L 509.7001, L100.0100, L503.6005, L503.7505, L501.3620, L500.2500, L501.5200, L500.3400 #### [facility] [address] [place], [address] Potassium [Moles/Vol] 4.1 mmol/L Normal 3.3-5.1 [facility] Comment on above: Order Comment: REDRA W. PREVIOUS SPECIMEN REJECTED DUE TO RESULTS NOT COMING THROUGH AND SEEM TO BE ERRONEOUS. 01/22/25219 Mora Patel. NOTIFIED DELMY FOR REDRAW Performed By: #### L 509.7001, L100.0100, L503.6005, L503.7505, L501.3620, L500.2500, L501.5200, L500.3400 #### [facility] [address] [place], [address] Sodium [Moles/Vol] 137 mmol/L Normal 133-145 [facility] Comment on above: Order Comment: REDRA W. PREVIOUS SPECIMEN REJECTED DUE TO RESULTS NOT COMING THROUGH AND SEEM TO BE ERRONEOUS. 01/22/25219 Mora Patel. NOTIFIED DELMY FOR REDRAW Performed By: #### L 509.7001, L100.0100, L503.6005, L503.7505, L501.3620, L500.2500, L501.5200, L500.3400 #### [facility] [address] [place], [address] T PROT 7.1 g/dL Normal 5.9-8.4 [facility] Comment on above: Order Comment: REDRA W. PREVIOUS SPECIMEN REJECTED DUE TO RESULTS NOT COMING THROUGH AND SEEM TO BE ERRONEOUS. 01/22/25219 Mora Patel. NOTIFIED DELMY FOR REDRAW Performed By: #### L 509.7001, L100.0100, L503.6005, L503.7505, L501.3620, L500.2500, L501.5200, L500.3400 #### [facility] [address] [place], [address] Urea nitrogen [Mass/Vol] 6 mg/dL Normal 4-19 [facility] Comment on above: Order Comment: REDRA W. PREVIOUS SPECIMEN REJECTED DUE TO RESULTS NOT COMING THROUGH AND SEEM TO BE ERRONEOUS. 01/22/25219 Mora Patel. NOTIFIED DELMY FOR REDRAW Performed By: #### L 509.7001, L100.0100, L503.6005, L503.7505, L501.3620, L500.2500, L501.5200, L500.3400 #### [facility] [address] [place], [place], [id number] Magnesiumon 03-10-2025 Magnesium [Mass/Vol] 2.0 mg/dL Normal 1.5-2.2 [facility] Comment on above: Order Comment: REDRA W. PREVIOUS SPECIMEN REJECTED DUE TO RESULTS NOT COMING THROUGH AND SEEM TO BE ERRONEOUS. 01/22/25219 Mora Patel. NOTIFIED DELMY FOR REDRAW Performed By: #### L 509.7001, L100.0100, L503.6005, L503.7505, L501.3620, L500.2500, L501.5200, L500.3400 #### [facility] [address] [place], [address] CBC W/Diff, Automatedon - Absolute Lymph 0.88 X10 3/uL Normal 0.83-4.51 [facility] Comment on above: Order Comment: REDRA W. PREVIOUS SPECIMEN REJECTED DUE TO RESULTS NOT COMING THROUGH AND SEEM TO BE ERRONEOUS. 01/22/25219 Mora Patel. NOTIFIED DELMY FOR REDRAW Performed By: #### L 509.7001, L100.0100, L503.6005, L503.7505, L501.3620, L500.2500, L501.5200, L500.3400 #### [facility] [address] [place], [address] Absolute Neut 3.6 X10 3/uL Normal 2.0-7.7 [facility] Comment on above: Order Comment: REDRA W. PREVIOUS SPECIMEN REJECTED DUE TO RESULTS NOT COMING THROUGH AND SEEM TO BE ERRONEOUS. 01/22/25219 Mora Patel. NOTIFIED DELMY FOR REDRAW Performed By: #### L 509.7001, L100.0100, L503.6005, L503.7505, L501.3620, L500.2500, L501.5200, L500.3400 #### [facility] [address] [place], [address] Basophils/100 WBC (Bld) 1.2 % High 0-1 [facility] Comment on above: Order Comment: REDRA W. PREVIOUS SPECIMEN REJECTED DUE TO RESULTS NOT COMING THROUGH AND SEEM TO BE ERRONEOUS. 01/22/25219 Mora Patel. NOTIFIED DELMY FOR REDRAW Performed By: #### L 509.7001, L100.0100, L503.6005, L503.7505, L501.3620, L500.2500, L501.5200, L500.3400 #### [facility] [address] [place], [address] Eosinophils/100 WBC (Bld) 5.1 % High 0-5 [facility] Comment on above: Order Comment: REDRA W. PREVIOUS SPECIMEN REJECTED DUE TO RESULTS NOT COMING THROUGH AND SEEM TO BE ERRONEOUS. 01/22/25219 Mora Patel. NOTIFIED DELMY FOR REDRAW Performed By: #### L 509.7001, L100.0100, L503.6005, L503.7505, L501.3620, L500.2500, L501.5200, L500.3400 #### [facility] [address] [place], [address] Erythrocyte distribution width (RBC) [Ratio] 15.7 % High 11.6-14.6 [facility] Comment on above: Order Comment: REDRA W. PREVIOUS SPECIMEN REJECTED DUE TO RESULTS NOT COMING THROUGH AND SEEM TO BE ERRONEOUS. 01/22/25219 Mora Patel. NOTIFIED DELMY FOR REDRAW Performed By: #### L 509.7001, L100.0100, L503.6005, L503.7505, L501.3620, L500.2500, L501.5200, L500.3400 #### [facility] [address] [place], [place], [phone] Hematocrit (Bld) [Volume fraction] 32.2 % Low 40-54 [facility] Comment on above: Order Comment: REDRA W. PREVIOUS SPECIMEN REJECTED DUE TO RESULTS NOT COMING THROUGH AND SEEM TO BE ERRONEOUS. 01/22/25219 Mora Patel. NOTIFIED DELMY FOR REDRAW Performed By: #### L 509.7001, L100.0100, L503.6005, L503.7505, L501.3620, L500.2500, L501.5200, L500.3400 #### [facility] [address] [place], [place], [phone] ([phone] Hemoglobin (Bld) [Mass/Vol] 9.8 g/dL Low 13.0-16.5 [facility] Comment on above: Order Comment: REDRA W. PREVIOUS SPECIMEN REJECTED DUE TO RESULTS NOT COMING THROUGH AND SEEM TO BE ERRONEOUS. 01/22/25219 Mora Patel. NOTIFIED DELMY FOR REDRAW Performed By: #### L 509.7001, L100.0100, L503.6005, L503.7505, L501.3620, L500.2500, L501.5200, L500.3400 #### [facility] [address] [place], [address] IG% 0.900 Normal 0.0-0.9 [facility] Comment on above: Order Comment: REDRA W. PREVIOUS SPECIMEN REJECTED DUE TO RESULTS NOT COMING THROUGH AND SEEM TO BE ERRONEOUS. 01/22/25219 Mora Patel. NOTIFIED DELMY FOR REDRAW Result Comment: IG% - Immature Granulocytes (promyelocytes, myelocytes and metamyelocytes) > 1% indicates that a LEFT SHIFT is Present. Performed By: #### L 509.7001, L100.0100, L503.6005, L503.7505, L501.3620, L500.2500, L501.5200, L500.3400 #### [facility] [address] [place], [address] Lymphocytes/100 WBC (Bld) 15.1 % Low 19-41 [facility] Comment on above: Order Comment: REDRA W. PREVIOUS SPECIMEN REJECTED DUE TO RESULTS NOT COMING THROUGH AND SEEM TO BE ERRONEOUS. 01/22/25219 Mora Patel. NOTIFIED DELMY FOR REDRAW Performed By: #### L 509.7001, L100.0100, L503.6005, L503.7505, L501.3620, L500.2500, L501.5200, L500.3400 #### [facility] [address] [place], [address] MCH (RBC) [Entitic mass] 28.5 pg Normal 27.0-32.0 [facility] Comment on above: Order Comment: REDRA W. PREVIOUS SPECIMEN REJECTED DUE TO RESULTS NOT COMING THROUGH AND SEEM TO BE ERRONEOUS. 01/22/25219 Mora Patel. NOTIFIED DELMY FOR REDRAW Performed By: #### L 509.7001, L100.0100, L503.6005, L503.7505, L501.3620, L500.2500, L501.5200, L500.3400 #### [facility] [address] [place], [address] MCHC (RBC) [Mass/Vol] 30.4 g/dL Low 32-36 [facility] Comment on above: Order Comment: REDRA W. PREVIOUS SPECIMEN REJECTED DUE TO RESULTS NOT COMING THROUGH AND SEEM TO BE ERRONEOUS. 01/22/25219 Mora Patel. NOTIFIED DELMY FOR REDRAW Performed By: #### L 509.7001, L100.0100, L503.6005, L503.7505, L501.3620, L500.2500, L501.5200, L500.3400 #### [facility] [address] [place], [address] MCV (RBC) [Entitic vol] 93.6 fL Normal 80-94 [facility] Comment on above: Order Comment: REDRA W. PREVIOUS SPECIMEN REJECTED DUE TO RESULTS NOT COMING THROUGH AND SEEM TO BE ERRONEOUS. 01/22/25219 Mora Patel. NOTIFIED DELMY FOR REDRAW Performed By: #### L 509.7001, L100.0100, L503.6005, L503.7505, L501.3620, L500.2500, L501.5200, L500.3400 #### [facility] [address] [place], [address] Monocytes/100 WBC (Bld) 16.4 % High 0-10 [facility] Comment on above: Order Comment: REDRA W. PREVIOUS SPECIMEN REJECTED DUE TO RESULTS NOT COMING THROUGH AND SEEM TO BE ERRONEOUS. 01/22/25219 Mora Patel. NOTIFIED DELMY FOR REDRAW Performed By: #### L 509.7001, L100.0100, L503.6005, L503.7505, L501.3620, L500.2500, L501.5200, L500.3400 #### [facility] [address] [place], [address] Neutrophils/100 WBC (Bld) 61.3 % Normal 47-70 [facility] Comment on above: Order Comment: REDRA W. PREVIOUS SPECIMEN REJECTED DUE TO RESULTS NOT COMING THROUGH AND SEEM TO BE ERRONEOUS. 01/22/25219 Mora Patel. NOTIFIED DELMY FOR REDRAW Performed By: #### L 509.7001, L100.0100, L503.6005, L503.7505, L501.3620, L500.2500, L501.5200, L500.3400 #### [facility] [address] [place], [address] Nucleated RBC (Bld) [#/Vol] 0 10*3/uL Normal 0-5 [facility] Comment on above: Order Comment: REDRA W. PREVIOUS SPECIMEN REJECTED DUE TO RESULTS NOT COMING THROUGH AND SEEM TO BE ERRONEOUS. 01/22/25219 Mora Patel. NOTIFIED DELMY FOR REDRAW Performed By: #### L 509.7001, L100.0100, L503.6005, L503.7505, L501.3620, L500.2500, L501.5200, L500.3400 #### [facility] [address] [place], [address] Platelet mean volume (Bld) [Entitic vol] 8.3 fL Normal 6.2-12.0 [facility] Comment on above: Order Comment: REDRA W. PREVIOUS SPECIMEN REJECTED DUE TO RESULTS NOT COMING THROUGH AND SEEM TO BE ERRONEOUS. 01/22/25219 Mora Patel. NOTIFIED DELMY FOR REDRAW Performed By: #### L 509.7001, L100.0100, L503.6005, L503.7505, L501.3620, L500.2500, L501.5200, L500.3400 #### [facility] [address] [place], [address] Platelets (Bld) [#/Vol] 350 10*3/uL Normal 150-450 [facility] Comment on above: Order Comment: REDRA W. PREVIOUS SPECIMEN REJECTED DUE TO RESULTS NOT COMING THROUGH AND SEEM TO BE ERRONEOUS. 01/22/25219 Mora Patel. NOTIFIED DELMY FOR REDRAW Performed By: #### L 509.7001, L100.0100, L503.6005, L503.7505, L501.3620, L500.2500, L501.5200, L500.3400 #### [facility] [address] [place], [address] RBC (Bld) [#/Vol] 3.44 10*6/uL Low 4.6-6.2 [facility] Comment on above: Order Comment: REDRA W. PREVIOUS SPECIMEN REJECTED DUE TO RESULTS NOT COMING THROUGH AND SEEM TO BE ERRONEOUS. 01/22/25219 Mora Patel. NOTIFIED DELMY FOR REDRAW Performed By: #### L 509.7001, L100.0100, L503.6005, L503.7505, L501.3620, L500.2500, L501.5200, L500.3400 #### [facility] [address] [place], [address] RDW SD 53.7 fl High 35.1-43.9 [facility] Comment on above: Order Comment: REDRA W. PREVIOUS SPECIMEN REJECTED DUE TO RESULTS NOT COMING THROUGH AND SEEM TO BE ERRONEOUS. 01/22/25219 Mora Patel. NOTIFIED DELMY FOR REDRAW Performed By: #### L 509.7001, L100.0100, L503.6005, L503.7505, L501.3620, L500.2500, L501.5200, L500.3400 #### [facility] [address] [place], [address] WBC (Bld) [#/Vol] 5.8 10*3/uL Normal 4.4-11.0 [facility] Comment on above: Order Comment: REDRA W. PREVIOUS SPECIMEN REJECTED DUE TO RESULTS NOT COMING THROUGH AND SEEM TO BE ERRONEOUS. 01/22/25219 Mora Patel. NOTIFIED DELMY FOR REDRAW Performed By: #### L 509.7001, L100.0100, L503.6005, L503.7505, L501.3620, L500.2500, L501.5200, L500.3400 #### [facility] [address] [place], [address] CRPon 03-03-2025 C-REACTIVE PROT 49.60 mg/L High 0.0-3.0 [facility] Comment on above: Order Comment: REDRA W. PREVIOUS SPECIMEN REJECTED DUE TO RESULTS NOT COMING THROUGH AND SEEM TO BE ERRONEOUS. 01/22/25219 Mora Patel. NOTIFIED DELMY FOR REDRAW Performed By: #### L 509.7001, L100.0100, L503.6005, L503.7505, L501.3620, L500.2500, L501.5200, L500.3400 #### [facility] [address] [place], [address] Comprehensive Metabolic Prof ilon 03-03-2025 Albumin [Mass/Vol] 2.2 g/dL Low 3.4-4.8 [facility] Comment on above: Order Comment: REDRA W. PREVIOUS SPECIMEN REJECTED DUE TO RESULTS NOT COMING THROUGH AND SEEM TO BE ERRONEOUS. 01/22/25219 Mora Patel. NOTIFIED DELMY FOR REDRAW Performed By: #### L 509.7001, L100.0100, L503.6005, L503.7505, L501.3620, L500.2500, L501.5200, L500.3400 #### [facility] [address] [place], [place], [phone] Albumin/Globulin [Mass ratio] 0.5 {ratio} Low 0.9-2.4 [facility] Comment on above: Order Comment: REDRA W. PREVIOUS SPECIMEN REJECTED DUE TO RESULTS NOT COMING THROUGH AND SEEM TO BE ERRONEOUS. 01/22/25219 Mora Patel. NOTIFIED DELMY FOR REDRAW Performed By: #### L 509.7001, L100.0100, L503.6005, L503.7505, L501.3620, L500.2500, L501.5200, L500.3400 #### [facility] [address] [place], [address] ALK PHOS 87 U/L Normal 40-129 [facility] Comment on above: Order Comment: REDRA W. PREVIOUS SPECIMEN REJECTED DUE TO RESULTS NOT COMING THROUGH AND SEEM TO BE ERRONEOUS. 01/22/25219 Mora Patel. NOTIFIED DELMY FOR REDRAW Performed By: #### L 509.7001, L100.0100, L503.6005, L503.7505, L501.3620, L500.2500, L501.5200, L500.3400 #### [facility] [address] [place], [address] ALT [Catalytic activity/Vol] 7 U/L Normal <=46 [facility] Comment on above: Order Comment: REDRA W. PREVIOUS SPECIMEN REJECTED DUE TO RESULTS NOT COMING THROUGH AND SEEM TO BE ERRONEOUS. 01/22/25219 Mora Patel. NOTIFIED DELMY FOR REDRAW Performed By: #### L 509.7001, L100.0100, L503.6005, L503.7505, L501.3620, L500.2500, L501.5200, L500.3400 #### [facility] [address] [place], [address] AST [Catalytic activity/Vol] 25 U/L Normal <=37 [facility] Comment on above: Order Comment: REDRA W. PREVIOUS SPECIMEN REJECTED DUE TO RESULTS NOT COMING THROUGH AND SEEM TO BE ERRONEOUS. 01/22/25219 Mora Patel. NOTIFIED DELMY FOR REDRAW Performed By: #### L 509.7001, L100.0100, L503.6005, L503.7505, L501.3620, L500.2500, L501.5200, L500.3400 #### [facility] [address] [place], [address] Bilirubin [Mass/Vol] 0.40 mg/dL Normal 0.00-1.30 [facility] Comment on above: Order Comment: REDRA W. PREVIOUS SPECIMEN REJECTED DUE TO RESULTS NOT COMING THROUGH AND SEEM TO BE ERRONEOUS. 01/22/25219 Mora Patel. NOTIFIED DELMY FOR REDRAW Performed By: #### L 509.7001, L100.0100, L503.6005, L503.7505, L501.3620, L500.2500, L501.5200, L500.3400 #### [facility] [address] [place], [address] BUN/CRE 8.4 RATIO Low 10-20 [facility] Comment on above: Order Comment: REDRA W. PREVIOUS SPECIMEN REJECTED DUE TO RESULTS NOT COMING THROUGH AND SEEM TO BE ERRONEOUS. 01/22/25219 Mora Patel. NOTIFIED DELMY FOR REDRAW Performed By: #### L 509.7001, L100.0100, L503.6005, L503.7505, L501.3620, L500.2500, L501.5200, L500.3400 #### [facility] [address] [place], [address] Calcium [Mass/Vol] 8.2 mg/dL Normal 7.6-11.0 [facility] Comment on above: Order Comment: REDRA W. PREVIOUS SPECIMEN REJECTED DUE TO RESULTS NOT COMING THROUGH AND SEEM TO BE ERRONEOUS. 01/22/25219 Mora Patel. NOTIFIED DELMY FOR REDRAW Performed By: #### L 509.7001, L100.0100, L503.6005, L503.7505, L501.3620, L500.2500, L501.5200, L500.3400 #### [facility] [address] [place], [address] Chloride [Moles/Vol] 97 mmol/L Low 98-108 [facility] Comment on above: Order Comment: REDRA W. PREVIOUS SPECIMEN REJECTED DUE TO RESULTS NOT COMING THROUGH AND SEEM TO BE ERRONEOUS. 01/22/25219 Mora Patel. NOTIFIED DELMY FOR REDRAW Performed By: #### L 509.7001, L100.0100, L503.6005, L503.7505, L501.3620, L500.2500, L501.5200, L500.3400 #### [facility] [address] [place], [place], [phone] ([phone] CO2 [Moles/Vol] 28.3 mmol/L Normal 21.0-32.0 [facility] Comment on above: Order Comment: REDRA W. PREVIOUS SPECIMEN REJECTED DUE TO RESULTS NOT COMING THROUGH AND SEEM TO BE ERRONEOUS. 01/22/25219 Mora Patel. NOTIFIED DELMY FOR REDRAW Performed By: #### L 509.7001, L100.0100, L503.6005, L503.7505, L501.3620, L500.2500, L501.5200, L500.3400 #### [facility] [address] [place], [place], [phone] ([phone]) Creatinine [Mass/Vol] 0.53 mg/dL Low 0.70-1.20 [facility] Comment on above: Order Comment: REDRA W. PREVIOUS SPECIMEN REJECTED DUE TO RESULTS NOT COMING THROUGH AND SEEM TO BE ERRONEOUS. 01/22/25219 Mora Patel. NOTIFIED DELMY FOR REDRAW Performed By: #### L 509.7001, L100.0100, L503.6005, L503.7505, L501.3620, L500.2500, L501.5200, L500.3400 #### [facility] [address] [place], [place], [phone] ([phone]) GAP 8 Normal 5-15 [facility] Comment on above: Order Comment: REDRA W. PREVIOUS SPECIMEN REJECTED DUE TO RESULTS NOT COMING THROUGH AND SEEM TO BE ERRONEOUS. 01/22/25219 Mora Patel. NOTIFIED DELMY FOR REDRAW Performed By: #### L 509.7001, L100.0100, L503.6005, L503.7505, L501.3620, L500.2500, L501.5200, L500.3400 #### [facility] [address] [place], [address] GFR/1.73 sq M.predicted among non-blacks MDRD (S/P/Bld) [Vol rate/Area] 107 mL/min/{1.73_m2} Normal >60 [facility] Comment on above: Order Comment: REDRA W. PREVIOUS SPECIMEN REJECTED DUE TO RESULTS NOT COMING THROUGH AND SEEM TO BE ERRONEOUS. 01/22/25219 Mora Patel. NOTIFIED DELMY FOR REDRAW Result Comment: mL/m in/1.73m2 CKD-EPI Creatinine Equation (2020) Performed By: #### L 509.7001, L100.0100, L503.6005, L503.7505, L501.3620, L500.2500, L501.5200, L500.3400 #### [facility] [address] [place], [place], [phone] Globulin (S) [Mass/Vol] 4.8 g/dL High 2.2-4.2 [facility] Comment on above: Order Comment: REDRA W. PREVIOUS SPECIMEN REJECTED DUE TO RESULTS NOT COMING THROUGH AND SEEM TO BE ERRONEOUS. 01/22/25219 Mora Patel. NOTIFIED DELMY FOR REDRAW Performed By: #### L 509.7001, L100.0100, L503.6005, L503.7505, L501.3620, L500.2500, L501.5200, L500.3400 #### [facility] [address] [place], [address] Glucose [Mass/Vol] 90 mg/dL Normal 70-99 [facility] Comment on above: Order Comment: REDRA W. PREVIOUS SPECIMEN REJECTED DUE TO RESULTS NOT COMING THROUGH AND SEEM TO BE ERRONEOUS. 01/22/25219 Mora Patel. NOTIFIED DELMY FOR REDRAW Performed By: #### L 509.7001, L100.0100, L503.6005, L503.7505, L501.3620, L500.2500, L501.5200, L500.3400 #### [facility] [address] [place], [address] Potassium [Moles/Vol] 4.3 mmol/L Normal 3.3-5.1 [facility] Comment on above: Order Comment: REDRA W. PREVIOUS SPECIMEN REJECTED DUE TO RESULTS NOT COMING THROUGH AND SEEM TO BE ERRONEOUS. 01/22/25219 Mora Patel. NOTIFIED DELMY FOR REDRAW Performed By: #### L 509.7001, L100.0100, L503.6005, L503.7505, L501.3620, L500.2500, L501.5200, L500.3400 #### [facility] [address] [place], [address] Sodium [Moles/Vol] 133 mmol/L Normal 133-145 [facility] Comment on above: Order Comment: REDRA W. PREVIOUS SPECIMEN REJECTED DUE TO RESULTS NOT COMING THROUGH AND SEEM TO BE ERRONEOUS. 01/22/25219 Mora Patel. NOTIFIED DELMY FOR REDRAW Performed By: #### L 509.7001, L100.0100, L503.6005, L503.7505, L501.3620, L500.2500, L501.5200, L500.3400 #### [facility] [address] [place], [address] T PROT 7.0 g/dL Normal 5.9-8.4 [facility] Comment on above: Order Comment: REDRA W. PREVIOUS SPECIMEN REJECTED DUE TO RESULTS NOT COMING THROUGH AND SEEM TO BE ERRONEOUS. 01/22/25219 Mora Patel. NOTIFIED DELMY FOR REDRAW Performed By: #### L 509.7001, L100.0100, L503.6005, L503.7505, L501.3620, L500.2500, L501.5200, L500.3400 #### [facility] [address] [place], [address] Urea nitrogen [Mass/Vol] 5 mg/dL Normal 4-19 [facility] Comment on above: Order Comment: REDRA W. PREVIOUS SPECIMEN REJECTED DUE TO RESULTS NOT COMING THROUGH AND SEEM TO BE ERRONEOUS. 01/22/25219 Mora Patel. NOTIFIED DELMY FOR REDRAW Performed By: #### L 509.7001, L100.0100, L503.6005, L503.7505, L501.3620, L500.2500, L501.5200, L500.3400 #### [facility] [address] [place], [address] Magnesiumon 03-03-2025 Magnesium [Mass/Vol] 2.0 mg/dL Normal 1.5-2.2 [facility] Comment on above: Order Comment: REDRA W. PREVIOUS SPECIMEN REJECTED DUE TO RESULTS NOT COMING THROUGH AND SEEM TO BE ERRONEOUS. 01/22/25219 Mora Patel. NOTIFIED DELMY FOR REDRAW Performed By: #### L 509.7001, L100.0100, L503.6005, L503.7505, L501.3620, L500.2500, L501.5200, L500.3400 #### [facility] [address] [place], [address] Wound Cultureon 03-03-2025 WC NA [...] TMP SMX Islt TAMMY <=20 S Normal [facility] Comment on above: Performed By: #### L 509.7001, L100.0100, L503.6005, L503.7505, L501.3620, L500.2500, L501.5200, L500.3400 #### [facility] [address] [place], [place], [phone] Gram Stainon 02-27-2025 GS Negative Normal [facility] Comment on above: Performed By: #### L 509.7001, L100.0100, L503.6005, L503.7505, L501.3620, L500.2500, L501.5200, L500.3400 #### [facility] [address] [place], [address] GS NA Gram Stain 1+ Gram negative rods 1+ Gram positive cocci No Epithelial cells Normal [facility] Comment on above: Performed By: #### L 509.7001, L100.0100, L503.6005, L503.7505, L501.3620, L500.2500, L501.5200, L500.3400 #### [facility] [address] [place], [place], [address] CBC W/Diff, Automatedon - Absolute Lymph 0.89 X10 3/uL Normal 0.83-4.51 [facility] Comment on above: Order Comment: SHREYAS Sommer PREVIOUS SPECIMEN REJECTED DUE TO RESULTS NOT COMING THROUGH AND SEEM TO BE ERRONEOUS. 01/22/250 Mora Patel. NOTIFIED DELMY FOR REDRAW Performed By: #### L 509.7001, L100.0100, L503.6005, L503.7505, L501.3620, L500.2500, L501.5200, L500.3400 #### [facility] [address] [place], [address] Absolute Neut 4.4 X10 3/uL Normal 2.0-7.7 [facility] Comment on above: Order Comment: REDRA W. PREVIOUS SPECIMEN REJECTED DUE TO RESULTS NOT COMING THROUGH AND SEEM TO BE ERRONEOUS. 01/22/25219 Mora Patel. NOTIFIED DELMY FOR REDRAW Performed By: #### L 509.7001, L100.0100, L503.6005, L503.7505, L501.3620, L500.2500, L501.5200, L500.3400 #### [facility] [address] [place], [address] Basophils/100 WBC (Bld) 0.9 % Normal 0-1 [facility] Comment on above: Order Comment: REDRA W. PREVIOUS SPECIMEN REJECTED DUE TO RESULTS NOT COMING THROUGH AND SEEM TO BE ERRONEOUS. 01/22/25219 Mora Patel. NOTIFIED DELMY FOR REDRAW Performed By: #### L 509.7001, L100.0100, L503.6005, L503.7505, L501.3620, L500.2500, L501.5200, L500.3400 #### [facility] [address] [place], [address] Eosinophils/100 WBC (Bld) 9.5 % High 0-5 [facility] Comment on above: Order Comment: REDRA W. PREVIOUS SPECIMEN REJECTED DUE TO RESULTS NOT COMING THROUGH AND SEEM TO BE ERRONEOUS. 01/22/25219 Mora Patel. NOTIFIED DELMY FOR REDRAW Performed By: #### L 509.7001, L100.0100, L503.6005, L503.7505, L501.3620, L500.2500, L501.5200, L500.3400 #### [facility] [address] [place], [address] Erythrocyte distribution width (RBC) [Ratio] 16.1 % High 11.6-14.6 [facility] Comment on above: Order Comment: REDRA W. PREVIOUS SPECIMEN REJECTED DUE TO RESULTS NOT COMING THROUGH AND SEEM TO BE ERRONEOUS. 01/22/25219 Mora Patel. NOTIFIED DELMY FOR REDRAW Performed By: #### L 509.7001, L100.0100, L503.6005, L503.7505, L501.3620, L500.2500, L501.5200, L500.3400 #### [facility] [address] [place], [place], [phone] ([phone] Hematocrit (Bld) [Volume fraction] 28.4 % Low 40-54 [facility] Comment on above: Order Comment: REDRA W. PREVIOUS SPECIMEN REJECTED DUE TO RESULTS NOT COMING THROUGH AND SEEM TO BE ERRONEOUS. 01/22/25219 Mora Patel. NOTIFIED DELMY FOR REDRAW Performed By: #### L 509.7001, L100.0100, L503.6005, L503.7505, L501.3620, L500.2500, L501.5200, L500.3400 #### [facility] [address] [place], [place], [phone] ([phone]) Hemoglobin (Bld) [Mass/Vol] 8.7 g/dL Low 13.0-16.5 [facility] Comment on above: Order Comment: REDRA W. PREVIOUS SPECIMEN REJECTED DUE TO RESULTS NOT COMING THROUGH AND SEEM TO BE ERRONEOUS. 01/22/25219 Mora Patel. NOTIFIED DELMY FOR REDRAW Performed By: #### L 509.7001, L100.0100, L503.6005, L503.7505, L501.3620, L500.2500, L501.5200, L500.3400 #### [facility] [address] [place], [address] IG% 0.600 Normal 0.0-0.9 [facility] Comment on above: Order Comment: REDRA W. PREVIOUS SPECIMEN REJECTED DUE TO RESULTS NOT COMING THROUGH AND SEEM TO BE ERRONEOUS. 01/22/25219 Mora Patel. NOTIFIED DELMY FOR REDRAW Result Comment: IG% - Immature Granulocytes (promyelocytes, myelocytes and metamyelocytes) > 1% indicates that a LEFT SHIFT is Present. Performed By: #### L 509.7001, L100.0100, L503.6005, L503.7505, L501.3620, L500.2500, L501.5200, L500.3400 #### [facility] [address] [place], [address] Lymphocytes/100 WBC (Bld) 12.6 % Low 19-41 [facility] Comment on above: Order Comment: REDRA W. PREVIOUS SPECIMEN REJECTED DUE TO RESULTS NOT COMING THROUGH AND SEEM TO BE ERRONEOUS. 01/22/25219 Mora Patel. NOTIFIED DELMY FOR REDRAW Performed By: #### L 509.7001, L100.0100, L503.6005, L503.7505, L501.3620, L500.2500, L501.5200, L500.3400 #### [facility] [address] [place], [address] MCH (RBC) [Entitic mass] 29.0 pg Normal 27.0-32.0 [facility] Comment on above: Order Comment: REDRA W. PREVIOUS SPECIMEN REJECTED DUE TO RESULTS NOT COMING THROUGH AND SEEM TO BE ERRONEOUS. 01/22/25219 Mora Patel. NOTIFIED DELMY FOR REDRAW Performed By: #### L 509.7001, L100.0100, L503.6005, L503.7505, L501.3620, L500.2500, L501.5200, L500.3400 #### [facility] [address] [place], [address] MCHC (RBC) [Mass/Vol] 30.6 g/dL Low 32-36 [facility] Comment on above: Order Comment: REDRA W. PREVIOUS SPECIMEN REJECTED DUE TO RESULTS NOT COMING THROUGH AND SEEM TO BE ERRONEOUS. 01/22/25219 Mora Patel. NOTIFIED DELMY FOR REDRAW Performed By: #### L 509.7001, L100.0100, L503.6005, L503.7505, L501.3620, L500.2500, L501.5200, L500.3400 #### [facility] [address] [place], [address] MCV (RBC) [Entitic vol] 94.7 fL High 80-94 [facility] Comment on above: Order Comment: REDRA W. PREVIOUS SPECIMEN REJECTED DUE TO RESULTS NOT COMING THROUGH AND SEEM TO BE ERRONEOUS. 01/22/25219 Mora Patel. NOTIFIED DELMY FOR REDRAW Performed By: #### L 509.7001, L100.0100, L503.6005, L503.7505, L501.3620, L500.2500, L501.5200, L500.3400 #### [facility] [address] [place], [address] Monocytes/100 WBC (Bld) 14.6 % High 0-10 [facility] Comment on above: Order Comment: REDRA W. PREVIOUS SPECIMEN REJECTED DUE TO RESULTS NOT COMING THROUGH AND SEEM TO BE ERRONEOUS. 01/22/25219 Mora Patel. NOTIFIED DELMY FOR REDRAW Performed By: #### L 509.7001, L100.0100, L503.6005, L503.7505, L501.3620, L500.2500, L501.5200, L500.3400 #### [facility] [address] [place], [address] Neutrophils/100 WBC (Bld) 61.8 % Normal 47-70 [facility] Comment on above: Order Comment: REDRA W. PREVIOUS SPECIMEN REJECTED DUE TO RESULTS NOT COMING THROUGH AND SEEM TO BE ERRONEOUS. 01/22/25219 Mora Patel. NOTIFIED DELMY FOR REDRAW Performed By: #### L 509.7001, L100.0100, L503.6005, L503.7505, L501.3620, L500.2500, L501.5200, L500.3400 #### [facility] [address] [place], [address] Nucleated RBC (Bld) [#/Vol] 0 10*3/uL Normal 0-5 [facility] Comment on above: Order Comment: REDRA W. PREVIOUS SPECIMEN REJECTED DUE TO RESULTS NOT COMING THROUGH AND SEEM TO BE ERRONEOUS. 01/22/25219 Mora Patel. NOTIFIED DELMY FOR REDRAW Performed By: #### L 509.7001, L100.0100, L503.6005, L503.7505, L501.3620, L500.2500, L501.5200, L500.3400 #### [facility] [address] [place], [address] Platelet mean volume (Bld) [Entitic vol] 8.5 fL Normal 6.2-12.0 [facility] Comment on above: Order Comment: REDRA W. PREVIOUS SPECIMEN REJECTED DUE TO RESULTS NOT COMING THROUGH AND SEEM TO BE ERRONEOUS. 01/22/25219 Mora Patel. NOTIFIED DELMY FOR REDRAW Performed By: #### L 509.7001, L100.0100, L503.6005, L503.7505, L501.3620, L500.2500, L501.5200, L500.3400 #### [facility] [address] [place], [address] Platelets (Bld) [#/Vol] 335 10*3/uL Normal 150-450 [facility] Comment on above: Order Comment: REDRA W. PREVIOUS SPECIMEN REJECTED DUE TO RESULTS NOT COMING THROUGH AND SEEM TO BE ERRONEOUS. 01/22/25219 Mora Patel. NOTIFIED DELMY FOR REDRAW Performed By: #### L 509.7001, L100.0100, L503.6005, L503.7505, L501.3620, L500.2500, L501.5200, L500.3400 #### [facility] [address] [place], [address] RBC (Bld) [#/Vol] 3.00 10*6/uL Low 4.6-6.2 [facility] Comment on above: Order Comment: REDRA W. PREVIOUS SPECIMEN REJECTED DUE TO RESULTS NOT COMING THROUGH AND SEEM TO BE ERRONEOUS. 01/22/25219 Mora Patel. NOTIFIED DELMY FOR REDRAW Performed By: #### L 509.7001, L100.0100, L503.6005, L503.7505, L501.3620, L500.2500, L501.5200, L500.3400 #### [facility] [address] [place], [place], [phone] RDW SD 54.7 fl High 35.1-43.9 [facility] Comment on above: Order Comment: REDRA W. PREVIOUS SPECIMEN REJECTED DUE TO RESULTS NOT COMING THROUGH AND SEEM TO BE ERRONEOUS. 01/22/25219 Mora Patel. NOTIFIED DELMY FOR REDRAW Performed By: #### L 509.7001, L100.0100, L503.6005, L503.7505, L501.3620, L500.2500, L501.5200, L500.3400 #### [facility] [address] [place], [place], [phone] WBC (Bld) [#/Vol] 7.1 10*3/uL Normal 4.4-11.0 [facility] Comment on above: Order Comment: REDRA W. PREVIOUS SPECIMEN REJECTED DUE TO RESULTS NOT COMING THROUGH AND SEEM TO BE ERRONEOUS. 01/22/25219 Mora Patel. NOTIFIED DELMY FOR REDRAW Performed By: #### L 509.7001, L100.0100, L503.6005, L503.7505, L501.3620, L500.2500, L501.5200, L500.3400 #### [facility] [address] [place], [place], [phone] CRPon 02-24-2025 C-REACTIVE PROT 46.10 mg/L High 0.0-3.0 [facility] Comment on above: Order Comment: REDRA W. PREVIOUS SPECIMEN REJECTED DUE TO RESULTS NOT COMING THROUGH AND SEEM TO BE ERRONEOUS. 01/22/25219 Mora Patel. NOTIFIED DELMY FOR REDRAW Performed By: #### L 509.7001, L100.0100, L503.6005, L503.7505, L501.3620, L500.2500, L501.5200, L500.3400 #### [facility] [address] [place], [place], [id number] Comprehensive Metabolic Prof ilon 02-24-2025 Albumin [Mass/Vol] 2.1 g/dL Low 3.4-4.8 [facility] Comment on above: Order Comment: REDRA W. PREVIOUS SPECIMEN REJECTED DUE TO RESULTS NOT COMING THROUGH AND SEEM TO BE ERRONEOUS. 01/22/25219 Mora Patel. NOTIFIED DELMY FOR REDRAW Performed By: #### L 509.7001, L100.0100, L503.6005, L503.7505, L501.3620, L500.2500, L501.5200, L500.3400 #### [facility] [address] [place], [place], [id number] Albumin/Globulin [Mass ratio] 0.5 {ratio} Low 0.9-2.4 [facility] Comment on above: Order Comment: REDRA W. PREVIOUS SPECIMEN REJECTED DUE TO RESULTS NOT COMING THROUGH AND SEEM TO BE ERRONEOUS. 01/22/25219 Mora Patel. NOTIFIED DELMY FOR REDRAW Performed By: #### L 509.7001, L100.0100, L503.6005, L503.7505, L501.3620, L500.2500, L501.5200, L500.3400 #### [facility] [address] [place], [address] ALK PHOS 77 U/L Normal 40-129 [facility] Comment on above: Order Comment: REDRA W. PREVIOUS SPECIMEN REJECTED DUE TO RESULTS NOT COMING THROUGH AND SEEM TO BE ERRONEOUS. 01/22/25219 Mora Patel. NOTIFIED DELMY FOR REDRAW Performed By: #### L 509.7001, L100.0100, L503.6005, L503.7505, L501.3620, L500.2500, L501.5200, L500.3400 #### [facility] [address] [place], [address] ALT [Catalytic activity/Vol] 6 U/L Normal <=46 [facility] Comment on above: Order Comment: REDRA W. PREVIOUS SPECIMEN REJECTED DUE TO RESULTS NOT COMING THROUGH AND SEEM TO BE ERRONEOUS. 01/22/25219 Mora Patel. NOTIFIED DELMY FOR REDRAW Performed By: #### L 509.7001, L100.0100, L503.6005, L503.7505, L501.3620, L500.2500, L501.5200, L500.3400 #### [facility] [address] [place], [address] AST [Catalytic activity/Vol] 20 U/L Normal <=37 [facility] Comment on above: Order Comment: REDRA W. PREVIOUS SPECIMEN REJECTED DUE TO RESULTS NOT COMING THROUGH AND SEEM TO BE ERRONEOUS. 01/22/25219 Mora Patel. NOTIFIED DELMY FOR REDRAW Performed By: #### L 509.7001, L100.0100, L503.6005, L503.7505, L501.3620, L500.2500, L501.5200, L500.3400 #### [facility] [address] [place], [address] Bilirubin [Mass/Vol] 0.34 mg/dL Normal 0.00-1.30 [facility] Comment on above: Order Comment: REDRA W. PREVIOUS SPECIMEN REJECTED DUE TO RESULTS NOT COMING THROUGH AND SEEM TO BE ERRONEOUS. 01/22/25219 Mora Patel. NOTIFIED DELMY FOR REDRAW Performed By: #### L 509.7001, L100.0100, L503.6005, L503.7505, L501.3620, L500.2500, L501.5200, L500.3400 #### [facility] [address] [place], [address] BUN/CRE 11.3 RATIO Normal 10-20 [facility] Comment on above: Order Comment: REDRA W. PREVIOUS SPECIMEN REJECTED DUE TO RESULTS NOT COMING THROUGH AND SEEM TO BE ERRONEOUS. 01/22/25219 Mora Patel. NOTIFIED DELMY FOR REDRAW Performed By: #### L 509.7001, L100.0100, L503.6005, L503.7505, L501.3620, L500.2500, L501.5200, L500.3400 #### [facility] [address] [place], [address] Calcium [Mass/Vol] 8.0 mg/dL Normal 7.6-11.0 [facility] Comment on above: Order Comment: REDRA W. PREVIOUS SPECIMEN REJECTED DUE TO RESULTS NOT COMING THROUGH AND SEEM TO BE ERRONEOUS. 01/22/25219 Mora Patel. NOTIFIED DELMY FOR REDRAW Performed By: #### L 509.7001, L100.0100, L503.6005, L503.7505, L501.3620, L500.2500, L501.5200, L500.3400 #### [facility] [address] [place], [address] Chloride [Moles/Vol] 101 mmol/L Normal 98-108 [facility] Comment on above: Order Comment: REDRA W. PREVIOUS SPECIMEN REJECTED DUE TO RESULTS NOT COMING THROUGH AND SEEM TO BE ERRONEOUS. 01/22/25219 Mora Patel. NOTIFIED DELMY FOR REDRAW Performed By: #### L 509.7001, L100.0100, L503.6005, L503.7505, L501.3620, L500.2500, L501.5200, L500.3400 #### [facility] [address] [place], [place], [phone] CO2 [Moles/Vol] 28.3 mmol/L Normal 21.0-32.0 [facility] Comment on above: Order Comment: REDRA W. PREVIOUS SPECIMEN REJECTED DUE TO RESULTS NOT COMING THROUGH AND SEEM TO BE ERRONEOUS. 01/22/25219 Mora Patel. NOTIFIED DELMY FOR REDRAW Performed By: #### L 509.7001, L100.0100, L503.6005, L503.7505, L501.3620, L500.2500, L501.5200, L500.3400 #### [facility] [address], [address] Creatinine [Mass/Vol] 0.49 mg/dL Low 0.70-1.20 [facility] Comment on above: Order Comment: REDRA W. PREVIOUS SPECIMEN REJECTED DUE TO RESULTS NOT COMING THROUGH AND SEEM TO BE ERRONEOUS. 01/22/25219 Mora Patel. NOTIFIED DELMY FOR REDRAW Performed By: #### L 509.7001, L100.0100, L503.6005, L503.7505, L501.3620, L500.2500, L501.5200, L500.3400 #### [facility] [address] [place], [place], [phone] GAP 7 Normal 5-15 [facility] Comment on above: Order Comment: REDRA W. PREVIOUS SPECIMEN REJECTED DUE TO RESULTS NOT COMING THROUGH AND SEEM TO BE ERRONEOUS. 01/22/25219 Mora Patel. NOTIFIED DELMY FOR REDRAW Performed By: #### L 509.7001, L100.0100, L503.6005, L503.7505, L501.3620, L500.2500, L501.5200, L500.3400 #### [facility] [address], [place], [phone] GFR/1.73 sq M.predicted among non-blacks MDRD (S/P/Bld) [Vol rate/Area] 110 mL/min/{1.73_m2} Normal >60 [facility] Comment on above: Order Comment: REDRA W. PREVIOUS SPECIMEN REJECTED DUE TO RESULTS NOT COMING THROUGH AND SEEM TO BE ERRONEOUS. 01/22/25219 Mora Patel. NOTIFIED DELMY FOR REDRAW Result Comment: mL/m in/1.73m2 CKD-EPI Creatinine Equation (2020) Performed By: #### L 509.7001, L100.0100, L503.6005, L503.7505, L501.3620, L500.2500, L501.5200, L500.3400 #### [facility] [address] [facility], [address] Globulin (S) [Mass/Vol] 4.5 g/dL High 2.2-4.2 [facility] Comment on above: Order Comment: REDRA W. PREVIOUS SPECIMEN REJECTED DUE TO RESULTS NOT COMING THROUGH AND SEEM TO BE ERRONEOUS. 01/22/25219 Mora Patel. NOTIFIED DELMY FOR REDRAW Performed By: #### L 509.7001, L100.0100, L503.6005, L503.7505, L501.3620, L500.2500, L501.5200, L500.3400 #### [facility] [address], [phone] Glucose [Mass/Vol] 88 mg/dL Normal 70-99 [facility] Comment on above: Order Comment: REDRA W. PREVIOUS SPECIMEN REJECTED DUE TO RESULTS NOT COMING THROUGH AND SEEM TO BE ERRONEOUS. 01/22/25219 Mora Patel. NOTIFIED DELMY FOR REDRAW Performed By: #### L 509.7001, L100.0100, L503.6005, L503.7505, L501.3620, L500.2500, L501.5200, L500.3400 #### [facility] [address] [place], [address] Potassium [Moles/Vol] 3.9 mmol/L Normal 3.3-5.1 [facility] Comment on above: Order Comment: REDRA W. PREVIOUS SPECIMEN REJECTED DUE TO RESULTS NOT COMING THROUGH AND SEEM TO BE ERRONEOUS. 01/22/25219 Mora Patel. NOTIFIED DELMY FOR REDRAW Performed By: #### L 509.7001, L100.0100, L503.6005, L503.7505, L501.3620, L500.2500, L501.5200, L500.3400 #### [facility] [address] [place], [address] Sodium [Moles/Vol] 136 mmol/L Normal 133-145 [facility] Comment on above: Order Comment: REDRA W. PREVIOUS SPECIMEN REJECTED DUE TO RESULTS NOT COMING THROUGH AND SEEM TO BE ERRONEOUS. 01/22/25219 Mora Patel. NOTIFIED DELMY FOR REDRAW Performed By: #### L 509.7001, L100.0100, L503.6005, L503.7505, L501.3620, L500.2500, L501.5200, L500.3400 #### [facility] [address] [place], [address] T PROT 6.5 g/dL Normal 5.9-8.4 [facility] Comment on above: Order Comment: REDRA W. PREVIOUS SPECIMEN REJECTED DUE TO RESULTS NOT COMING THROUGH AND SEEM TO BE ERRONEOUS. 01/22/25219 Mora Patel. NOTIFIED DELMY FOR REDRAW Performed By: #### L 509.7001, L100.0100, L503.6005, L503.7505, L501.3620, L500.2500, L501.5200, L500.3400 #### [facility] [address] [place], [address] Urea nitrogen [Mass/Vol] 6 mg/dL Normal 4-19 [facility] Comment on above: Order Comment: REDRA W. PREVIOUS SPECIMEN REJECTED DUE TO RESULTS NOT COMING THROUGH AND SEEM TO BE ERRONEOUS. 01/22/25219 Mora Patel. NOTIFIED DELMY FOR REDRAW Performed By: #### L 509.7001, L100.0100, L503.6005, L503.7505, L501.3620, L500.2500, L501.5200, L500.3400 #### [facility] [address] [place], [address] Magnesiumon 02-24-2025 Magnesium [Mass/Vol] 1.8 mg/dL Normal 1.5-2.2 [facility] Comment on above: Order Comment: REDRA W. PREVIOUS SPECIMEN REJECTED DUE TO RESULTS NOT COMING THROUGH AND SEEM TO BE ERRONEOUS. 01/22/25219 Mora Patel. NOTIFIED DELMY FOR REDRAW Performed By: #### L 509.7001, L100.0100, L503.6005, L503.7505, L501.3620, L500.2500, L501.5200, L500.3400 #### [facility] [address] [place], [place], [phone] Basic Metabolic Profile (BMP )on 02-19-2025 BUN/CRE 11.0 RATIO Normal 03-02 [facility] Comment on above: Performed By: #### L 509.7001, L100.0100, L503.6005, L503.7505, L501.3620, L500.2500, L501.5200, L500.3400 #### [facility] [address] [place], [place], [phone] Calcium [Mass/Vol] 7.3 mg/dL Low 7.6-11.0 [facility] Comment on above: Performed By: #### L 509.7001, L100.0100, L503.6005, L503.7505, L501.3620, L500.2500, L501.5200, L500.3400 #### [facility] [address] [place], [address] Chloride [Moles/Vol] 104 mmol/L Normal 98-108 [facility] Comment on above: Performed By: #### L 509.7001, L100.0100, L503.6005, L503.7505, L501.3620, L500.2500, L501.5200, L500.3400 #### [facility] [address] [place], [address] CO2 [Moles/Vol] 25.1 mmol/L Normal 21.0-32.0 [facility] Comment on above: Performed By: #### L 509.7001, L100.0100, L503.6005, L503.7505, L501.3620, L500.2500, L501.5200, L500.3400 #### [facility] [address] [place], [address] ([phone] Creatinine [Mass/Vol] 0.54 mg/dL Low 0.70-1.20 [facility] Comment on above: Performed By: #### L 509.7001, L100.0100, L503.6005, L503.7505, L501.3620, L500.2500, L501.5200, L500.3400 #### [facility] [address] [place], [address] GAP 8 Normal 5-15 [facility] Comment on above: Performed By: #### L 509.7001, L100.0100, L503.6005, L503.7505, L501.3620, L500.2500, L501.5200, L500.3400 #### [facility] [address] [place], [address] GFR/1.73 sq M.predicted among non-blacks MDRD (S/P/Bld) [Vol rate/Area] 107 mL/min/{1.73_m2} Normal >60 [facility] Comment on above: Result Comment: mL/m in/1.73m2 CKD-EPI Creatinine Equation (2020) Performed By: #### L 509.7001, L100.0100, L503.6005, L503.7505, L501.3620, L500.2500, L501.5200, L500.3400 #### [facility] [address] [place], [address] Glucose [Mass/Vol] 90 mg/dL Normal 70-99 [facility] Comment on above: Performed By: #### L 509.7001, L100.0100, L503.6005, L503.7505, L501.3620, L500.2500, L501.5200, L500.3400 #### [facility] [address] [place], [address] Potassium [Moles/Vol] 3.9 mmol/L Normal 3.3-5.1 [facility] Comment on above: Result Comment: Hemo lysis present, Results??could be affected. ?? Performed By: #### L 509.7001, L100.0100, L503.6005, L503.7505, L501.3620, L500.2500, L501.5200, L500.3400 #### [facility] [address] [place], [address] Sodium [Moles/Vol] 136 mmol/L Normal 133-145 [facility] Comment on above: Performed By: #### L 509.7001, L100.0100, L503.6005, L503.7505, L501.3620, L500.2500, L501.5200, L500.3400 #### [facility] [address] [place], [address] Urea nitrogen [Mass/Vol] 6 mg/dL Normal 4-19 [facility] Comment on above: Performed By: #### L 509.7001, L100.0100, L503.6005, L503.7505, L501.3620, L500.2500, L501.5200, L500.3400 #### [facility] [address] [place], [address] CBC W/Diff, Automatedon 10-0 9-2025 Absolute Lymph 0.82 X10 3/uL Low 0.83-4.51 [facility] Comment on above: Performed By: #### L 509.7001, L100.0100, L503.6005, L503.7505, L501.3620, L500.2500, L501.5200, L500.3400 #### [facility] [address] [place], [address] Absolute Neut 7.4 X10 3/uL Normal 2.0-7.7 [facility] Comment on above: Performed By: #### L 509.7001, L100.0100, L503.6005, L503.7505, L501.3620, L500.2500, L501.5200, L500.3400 #### [facility] [address] [place], [address] Basophils/100 WBC (Bld) 0.7 % Normal 0-1 [facility] Comment on above: Performed By: #### L 509.7001, L100.0100, L503.6005, L503.7505, L501.3620, L500.2500, L501.5200, L500.3400 #### [facility] [address] [place], [address] Eosinophils/100 WBC (Bld) 4.3 % Normal 0-5 [facility] Comment on above: Performed By: #### L 509.7001, L100.0100, L503.6005, L503.7505, L501.3620, L500.2500, L501.5200, L500.3400 #### [facility] [address] [place], [address] Erythrocyte distribution width (RBC) [Ratio] 16.0 % High 11.6-14.6 [facility] Comment on above: Performed By: #### L 509.7001, L100.0100, L503.6005, L503.7505, L501.3620, L500.2500, L501.5200, L500.3400 #### [facility] [address] [place], [address] Hematocrit (Bld) [Volume fraction] 26.1 % Low 40-54 [facility] Comment on above: Performed By: #### L 509.7001, L100.0100, L503.6005, L503.7505, L501.3620, L500.2500, L501.5200, L500.3400 #### [facility] [address] [place], [address] Hemoglobin (Bld) [Mass/Vol] 8.1 g/dL Low 13.0-16.5 [facility] Comment on above: Performed By: #### L 509.7001, L100.0100, L503.6005, L503.7505, L501.3620, L500.2500, L501.5200, L500.3400 #### [facility] [address] [place], [address] IG% 2.000 High 0.0-0.9 [facility] Comment on above: Result Comment: IG% - Immature Granulocytes (promyelocytes, myelocytes and metamyelocytes) > 1% indicates that a LEFT SHIFT is Present. Performed By: #### L 509.7001, L100.0100, L503.6005, L503.7505, L501.3620, L500.2500, L501.5200, L500.3400 #### [facility] [address] [place], [address] Lymphocytes/100 WBC (Bld) 8.3 % Low 19-41 [facility] Comment on above: Performed By: #### L 509.7001, L100.0100, L503.6005, L503.7505, L501.3620, L500.2500, L501.5200, L500.3400 #### [facility] [address] [place], [address] MCH (RBC) [Entitic mass] 29.0 pg Normal 27.0-32.0 [facility] Comment on above: Performed By: #### L 509.7001, L100.0100, L503.6005, L503.7505, L501.3620, L500.2500, L501.5200, L500.3400 #### [facility] [address] [place], [address] MCHC (RBC) [Mass/Vol] 31.0 g/dL Low 32-36 [facility] Comment on above: Performed By: #### L 509.7001, L100.0100, L503.6005, L503.7505, L501.3620, L500.2500, L501.5200, L500.3400 #### [facility] [address] [place], [address] MCV (RBC) [Entitic vol] 93.5 fL Normal 80-94 [facility] Comment on above: Performed By: #### L 509.7001, L100.0100, L503.6005, L503.7505, L501.3620, L500.2500, L501.5200, L500.3400 #### [facility] [address] [place], [address] Monocytes/100 WBC (Bld) 10.1 % High 0-10 [facility] Comment on above: Performed By: #### L 509.7001, L100.0100, L503.6005, L503.7505, L501.3620, L500.2500, L501.5200, L500.3400 #### [facility] [address] [place], [address] Neutrophils/100 WBC (Bld) 74.6 % High 47-70 [facility] Comment on above: Performed By: #### L 509.7001, L100.0100, L503.6005, L503.7505, L501.3620, L500.2500, L501.5200, L500.3400 #### [facility] [address] [place], [address] Nucleated RBC (Bld) [#/Vol] 0 10*3/uL Normal 0-5 [facility] Comment on above: Performed By: #### L 509.7001, L100.0100, L503.6005, L503.7505, L501.3620, L500.2500, L501.5200, L500.3400 #### [facility] [address] [place], [address] Platelet mean volume (Bld) [Entitic vol] 9.1 fL Normal 6.2-12.0 [facility] Comment on above: Performed By: #### L 509.7001, L100.0100, L503.6005, L503.7505, L501.3620, L500.2500, L501.5200, L500.3400 #### [facility] [address] [place], [address] Platelets (Bld) [#/Vol] 397 10*3/uL Normal 150-450 [facility] Comment on above: Performed By: #### L 509.7001, L100.0100, L503.6005, L503.7505, L501.3620, L500.2500, L501.5200, L500.3400 #### [facility] [address] [place], [address] RBC (Bld) [#/Vol] 2.79 10*6/uL Low 4.6-6.2 [facility] Comment on above: Performed By: #### L 509.7001, L100.0100, L503.6005, L503.7505, L501.3620, L500.2500, L501.5200, L500.3400 #### [facility] [address] [place], [address] RDW SD 54.6 fl High 35.1-43.9 [facility] Comment on above: Performed By: #### L 509.7001, L100.0100, L503.6005, L503.7505, L501.3620, L500.2500, L501.5200, L500.3400 #### [facility] [address] [place], [place], [phone] WBC (Bld) [#/Vol] 9.9 10*3/uL Normal 4.4-11.0 [facility] Comment on above: Performed By: #### L 509.7001, L100.0100, L503.6005, L503.7505, L501.3620, L500.2500, L501.5200, L500.3400 #### [facility] [address] [place], [place], [phone] Hemoglobin A1con 02-19-2025 HbA1c (Bld) [Mass fraction] 5.1 % Normal <=5.6 [facility] Comment on above: Result Comment: Norm al < 5.7 % Prediabetic 5.7 - 6.4 % Diabetic >or= 6.5 % Please note range changes. Performed By: #### L 509.7001, L100.0100, L503.6005, L503.7505, L501.3620, L500.2500, L501.5200, L500.3400 #### [facility] [address] [place], [place], [phone] Magnesiumon 02-19-2025 Magnesium [Mass/Vol] 1.8 mg/dL Normal 1.5-2.2 [facility] Comment on above: Performed By: #### L 509.7001, L100.0100, L503.6005, L503.7505, L501.3620, L500.2500, L501.5200, L500.3400 #### [facility] [address] [place], [address] Thyroid Stim Hormone (TSH)on 02-19-2025 TSH 1.380 uIU/mL Normal 0.300-4.200 [facility] Comment on above: Performed By: #### L 509.7001, L100.0100, L503.6005, L503.7505, L501.3620, L500.2500, L501.5200, L500.3400 #### [facility] [address] [place], [place], [id number] Vitamin B12on 02-19-2025 Cobalamin (Vitamin B12) [Mass/Vol] 1008 pg/mL High 180-914 [facility] Comment on above: Performed By: #### L 509.7001, L100.0100, L503.6005, L503.7505, L501.3620, L500.2500, L501.5200, L500.3400 #### [facility] [address] [place] [address], [place], [address] Vitamin D,25 Hydroxyon 02-19 Vitamin D 25-OH < 6.0 Low 30-100 [facility] Comment on above: Result Comment: Juana min D Status Deficiency: <20 ng/mL (50nmol/L) Insufficiency: 20-30 ng/mL (50-75 nmol/L) Sufficiency: 30-100 ng/mL (75-250 nmol/L) Toxicity: >100 ng/mL (>250 nmol/L) Performed By: #### L 509.7001, L100.0100, L503.6005, L503.7505, L501.3620, L500.2500, L501.5200, L500.3400 #### [facility] [address] [place], [address] CONSULTon 02-18-2025 CONSULT [facility] Disch [place] 02-18-2025 Disch [facility] PHOSPHORUSon 02-18-2025 Phosphate [Mass/Vol] 2.4 mg/dL Normal 2.3-3.7 [facility] Comment on above: Performed By: #### [id number] ####[facility] [place] [place] [facility] [address], [place] [address] Wojciech Oneal M.D. [id number] BASIC METABOLIC PANELon 10- Anion gap [Moles/Vol] 13 mmol/L Normal 10-20 [facility] Comment on above: Order Comment: [facility] has implemented the eGFR calculation approach that does not have a coefficient for race that conforms to the NKF-ASN Task Force Recommendations. Performed By: #### [id number] ####[facility] [place] [place] [facility] [address], [place] [address] Wojciech Oneal M.D. [id number] Calcium [Mass/Vol] 7.5 mg/dL Low 8.4-10.2 [facility] Comment on above: Order Comment: [facility] has implemented the eGFR calculation approach that does not have a coefficient for race that conforms to the NKF-ASN Task Force Recommendations. Performed By: #### 4 [id number] ####[facility] [place] [place] [facility] [address], [place] [address] Wojciech Oneal M.D. [id number] Chloride [Moles/Vol] 104 mmol/L Normal 98-108 [facility] Comment on above: Order Comment: [facility] has implemented the eGFR calculation approach that does not have a coefficient for race that conforms to the NKF-ASN Task Force Recommendations. Performed By: #### 4 [id number] ####[facility] [address], [place] [address] Wojciech Oneal M.D. [id number] Creatinine [Mass/Vol] 0.64 mg/dL Low 0.80-1.30 [facility] Comment on above: Order Comment: [facility] has implemented the eGFR calculation approach that does not have a coefficient for race that conforms to the NKF-ASN Task Force Recommendations. Performed By: #### 4 6124 ####[facility] [place] [address] [id number] Wojciech Oneal M.D. [id number] EGFR 101 mL/min/1.73 m2 Normal >=60 [facility] Comment on above: Order Comment: [facility] has implemented the eGFR calculation approach that does not have a coefficient for race that conforms to the NKF-ASN Task Force Recommendations. Result Comment: Chelsea mated GFR was calculated using the 2020 CKD-EPI creatinine equation. Performed By: #### 4 6124 ####[facility] [place] [address] [id number] Wojciech Oneal M.D. [id number] Glucose [Mass/Vol] 95 mg/dL Normal 65-99 [facility] Comment on above: Order Comment: [facility] has implemented the eGFR calculation approach that does not have a coefficient for race that conforms to the NKF-ASN Task Force Recommendations. Performed By: #### 4 6124 ####[facility] [place] [address] [id number] Wojciech Oneal M.D. [id number] HCO3 (Bld) [Moles/Vol] 25 mmol/L Normal 21-32 [facility] Comment on above: Order Comment: [facility] has implemented the eGFR calculation approach that does not have a coefficient for race that conforms to the NKF-ASN Task Force Recommendations. Performed By: #### 4 6124 ####[facility] [place] [address] [id number] Wojciech Oneal M.D. [id number] Potassium [Moles/Vol] 3.6 mmol/L Normal 3.5-5.1 [facility] Comment on above: Order Comment: [facility] has implemented the eGFR calculation approach that does not have a coefficient for race that conforms to the NKF-ASN Task Force Recommendations. Performed By: #### 4 6124 ####[facility] [place] [address] [id number] Wojciech Oneal M.D. [id number] Sodium [Moles/Vol] 138 mmol/L Normal 135-145 [facility] Comment on above: Order Comment: [facility] has implemented the eGFR calculation approach that does not have a coefficient for race that conforms to the NKF-ASN Task Force Recommendations. Performed By: #### 4 6124 ####[facility] [place] [address] [id number] Wojciech Oneal M.D. [id number] Urea nitrogen [Mass/Vol] 7 mg/dL Low 8-25 [facility] Comment on above: Order Comment: [facility] has implemented the eGFR calculation approach that does not have a coefficient for race that conforms to the NKF-ASN Task Force Recommendations. Performed By: #### 4 6124 ####[facility] [place] [address] [address] Wojciech Oneal M.D. [id number] Urea nitrogen/Creatinine [Mass ratio] 10.9 mg/mg Normal 10.0-20.0 [facility] Comment on above: Order Comment: [facility] has implemented the eGFR calculation approach that does not have a coefficient for race that conforms to the NKF-ASN Task Force Recommendations. Performed By: #### 4 6124 ####[facility] [place] [address] [id number] Wojciech Oneal M.D. [id number] CBCon 02-17-2025 AUTO NRBC 0.0 % Normal [facility] Comment on above: Performed By: #### 4 [id number] ####[facility] [place] [address] [id number] Wojciech Oneal M.D. [id number] AUTO NRBC ABS COUNT 0.00 K/mcL Normal 0.00-0.00 [facility] Comment on above: Performed By: #### 4 [id number] ####[facility] [place] [address] [id number] Wojciech Oneal M.D. [id number] Erythrocyte distribution width (RBC) [Ratio] 15.9 % High 11.6-14.8 [facility] Comment on above: Performed By: #### 4 [id number] ####[facility] [place] [address] [address] Wojciech Oneal M.D. [id number] Hematocrit (Bld) [Volume fraction] 25.4 % Low 41.0-53.0 [facility] Comment on above: Performed By: #### 4 [id number] ####[facility] [place] [address] [address] Wojciech Oneal M.D. [id number] Hemoglobin (Bld) [Mass/Vol] 7.6 g/dL Low 13.5-17.5 [facility] Comment on above: Performed By: #### 4 [id number] ####[facility] [place] [address] [address] Wojciech Oneal M.D. [id number] MCH (RBC) [Entitic mass] 28.8 pg Normal 26.0-34.0 [facility] Comment on above: Performed By: #### 4 [id number] ####[facility] [place] [address] [address] Wojciech Oneal M.D. [id number] MCV (RBC) [Entitic vol] 96.2 fL Normal 80.0-100.0 [facility] Comment on above: Performed By: #### 4 [id number] ####[facility] [place] [address] [address] Wojciech Oneal M.D. [id number] MEAN CORPUSCULAR HEMOGLOBIN CONC 29.9 g/dL Low 31.0-37.0 [facility] Comment on above: Performed By: #### 4 [id number] ####[facility] [place] [address] [address] Wojciech Oneal M.D. [id number] Platelet mean volume (Bld) [Entitic vol] 8.3 fL Low 9.4-12.4 [facility] Comment on above: Performed By: #### 4 [id number] ####[facility] [place] [address] [address] Wojciech Oneal M.D. [id number] Platelets (Bld) [#/Vol] 409 10*3/uL High 150-400 [facility] Comment on above: Performed By: #### 4 [id number] ####[facility] [place] [address] [address] Wojciech Oneal M.D. [id number] RBC (Bld) [#/Vol] 2.64 10*6/uL Low 4.50-5.90 [facility] Comment on above: Performed By: #### 4 [id number] ####[facility] [place] [address] [id number] Wojciech Oneal M.D. [id number] WBC (Bld) [#/Vol] 8.89 10*3/uL Normal 4.50-11.00 [facility] Comment on above: Performed By: #### 4 [id number] ####[facility] [place] [address] [id number] Wojciech Oneal M.D. [id number] MAGNESIUM LEVELon 02-17-2025 Magnesium [Mass/Vol] 1.7 mg/dL Normal 1.6-2.4 [facility] Comment on above: Performed By: #### 4 6109 ####[facility] [place] [address] [id number] Wojciech Oneal M.D. [id number] PHOSPHORUSon 02-17-2025 Phosphate [Mass/Vol] 2.5 mg/dL Normal 2.3-3.7 [facility] Comment on above: Performed By: #### 4 6299 ####[facility] [place] [address] [id number] Wojciech Oneal M.D. [id number] BASIC METABOLIC PANELon 10-0 Anion gap [Moles/Vol] 10 mmol/L Normal 10-20 [facility] Comment on above: Order Comment: [facility] has implemented the eGFR calculation approach that does not have a coefficient for race that conforms to the NKF-ASN Task Force Recommendations. Performed By: #### 4 6124 ####[facility] [place] [address] [id number] Wojciech Oneal M.D. [id number] Calcium [Mass/Vol] 7.3 mg/dL Low 8.4-10.2 [facility] Comment on above: Order Comment: [facility] has implemented the eGFR calculation approach that does not have a coefficient for race that conforms to the NKF-ASN Task Force Recommendations. Performed By: #### 4 6124 ####[facility] [place] [address], [place] [address] Wojciech Oneal M.D. [id number] Chloride [Moles/Vol] 106 mmol/L Normal 98-108 [facility] Comment on above: Order Comment: [facility] has implemented the eGFR calculation approach that does not have a coefficient for race that conforms to the NKF-ASN Task Force Recommendations. Performed By: #### 4 6124 ####[facility] [place] [address] [id number] Wojciech Oneal M.D. [id number] Creatinine [Mass/Vol] 0.62 mg/dL Low 0.80-1.30 [facility] Comment on above: Order Comment: [facility] has implemented the eGFR calculation approach that does not have a coefficient for race that conforms to the NKF-ASN Task Force Recommendations. Performed By: #### 4 6124 ####[facility] [place] [address] [id number] Wojciech Oneal M.D. [id number] EGFR 102 mL/min/1.73 m2 Normal >=60 [facility] Comment on above: Order Comment: [facility] has implemented the eGFR calculation approach that does not have a coefficient for race that conforms to the NKF-ASN Task Force Recommendations. Result Comment: Chelsea mated GFR was calculated using the 2020 CKD-EPI creatinine equation. Performed By: #### 4 6124 ####[facility] [place] [address] [id number] Wojciech Oneal M.D. [id number] Glucose [Mass/Vol] 84 mg/dL Normal 65-99 [facility] Comment on above: Order Comment: [facility] has implemented the eGFR calculation approach that does not have a coefficient for race that conforms to the NKF-ASN Task Force Recommendations. Performed By: #### 4 6124 ####[facility] [place] [address], [place] [address] Wojciech Oneal M.D. [id number] HCO3 (Bld) [Moles/Vol] 26 mmol/L Normal 21-32 [facility] Comment on above: Order Comment: [facility] has implemented the eGFR calculation approach that does not have a coefficient for race that conforms to the NKF-ASN Task Force Recommendations. Performed By: #### 4 6124 ####[facility] [place] [address] [id number] Wojciech Oneal M.D. [id number] Potassium [Moles/Vol] 3.7 mmol/L Normal 3.5-5.1 [facility] Comment on above: Order Comment: [facility] has implemented the eGFR calculation approach that does not have a coefficient for race that conforms to the NKF-ASN Task Force Recommendations. Performed By: #### 4 6124 ####[facility] [place] [address] [id number] Wojciech Oneal M.D. [id number] Sodium [Moles/Vol] 138 mmol/L Normal 135-145 [facility] Comment on above: Order Comment: [facility] has implemented the eGFR calculation approach that does not have a coefficient for race that conforms to the NKF-ASN Task Force Recommendations. Performed By: #### 4 6124 ####[facility] [place] [address] [address] Wojciech Oneal M.D. [id number] Urea nitrogen [Mass/Vol] 8 mg/dL Normal 8-25 [facility] Comment on above: Order Comment: [facility] has implemented the eGFR calculation approach that does not have a coefficient for race that conforms to the NKF-ASN Task Force Recommendations. Performed By: #### 4 6124 ####[facility] [place] [address] [id number] Wojciech Oneal M.D. [id number] Urea nitrogen/Creatinine [Mass ratio] 12.9 mg/mg Normal 10.0-20.0 [facility] Comment on above: Order Comment: [facility] has implemented the eGFR calculation approach that does not have a coefficient for race that conforms to the NKF-ASN Task Force Recommendations. Performed By: #### 4 6124 ####[facility] [place] [address] [id number] Wojciech Oneal M.D. [id number] CBCon 02-16-2025 AUTO NRBC 0.0 % Normal [facility] Comment on above: Performed By: #### 4 [id number] ####[facility] [place] [address] [address] Wojciech Oneal M.D. [id number] AUTO NRBC ABS COUNT 0.00 K/mcL Normal 0.00-0.00 [facility] Comment on above: Performed By: #### 4 [id number] ####[facility] [place] [address] [address] Wojciech Oneal M.D. [id number] Erythrocyte distribution width (RBC) [Ratio] 15.7 % High 11.6-14.8 [facility] Comment on above: Performed By: #### 4 [id number] ####[facility] [place] [address] [address] Wojciech Oneal M.D. [id number] Hematocrit (Bld) [Volume fraction] 26.9 % Low 41.0-53.0 [facility] Comment on above: Performed By: #### 4 [id number] ####[facility] [place] [address] [address] Wojciech Oneal M.D. [id number] Hemoglobin (Bld) [Mass/Vol] 7.9 g/dL Low 13.5-17.5 [facility] Comment on above: Performed By: #### 4 [id number] ####[facility] [place] [address] [address] Wojciech Oneal M.D. [id number] MCH (RBC) [Entitic mass] 28.4 pg Normal 26.0-34.0 [facility] Comment on above: Performed By: #### 4 [id number] ####[facility] [place] [address] [address] Wojciech Oneal M.D. [id number] MCV (RBC) [Entitic vol] 96.8 fL Normal 80.0-100.0 [facility] Comment on above: Performed By: #### 4 [id number] ####[facility] [place] [address] [address] Wojciech Oneal M.D. [id number] MEAN CORPUSCULAR HEMOGLOBIN CONC 29.4 g/dL Low 31.0-37.0 [facility] Comment on above: Performed By: #### 4 [id number] ####[facility] [place] [address] [id number] Wojciech Oneal M.D. [id number] Platelet mean volume (Bld) [Entitic vol] 8.5 fL Low 9.4-12.4 [facility] Comment on above: Performed By: #### 4 [id number] ####[facility] [place] [address] [id number] Wojciech Oneal M.D. [id number] Platelets (Bld) [#/Vol] 446 10*3/uL High 150-400 [facility] Comment on above: Performed By: #### 4 [id number] ####[facility] [place] [address] [address] Wojciech Oneal M.D. [id number] RBC (Bld) [#/Vol] 2.78 10*6/uL Low 4.50-5.90 [facility] Comment on above: Performed By: #### 4 [id number] ####[facility] [place] [address] [id number] Wojciech Oneal M.D. [id number] WBC (Bld) [#/Vol] 8.23 10*3/uL Normal 4.50-11.00 [facility] Comment on above: Performed By: #### 4 [id number] ####[facility] [place] [address] [id number] Wojciech Oneal M.D. [id number] MAGNESIUM LEVELon 02-16-2025 Magnesium [Mass/Vol] 1.8 mg/dL Normal 1.6-2.4 [facility] Comment on above: Performed By: #### 4 6109 ####[facility] [place] [address] [id number] Wojciech Oneal M.D. [id number] PHOSPHORUSon 02-16-2025 Phosphate [Mass/Vol] 2.7 mg/dL Normal 2.3-3.7 [facility] Comment on above: Performed By: #### 4 6299 ####[facility] [place] [address] [address] Wojciech Oneal M.D. [id number] B12/FOLATEon 02-15-2025 Cobalamin (Vitamin B12) [Mass/Vol] 1085 pg/mL Normal 232-1245 [facility] Comment on above: Performed By: #### 4 6967 ####[facility] [place] [address] [address] Wojciech Oneal M.D. [id number] FOLATE 4.5 ng/mL Normal 3.1-17.5 [facility] Comment on above: Result Comment: Defi cient <2.2Borderline 2.2 - 3.0Excessive >17.5 Performed By: #### 4 6967 ####[facility] [place] [address], [place] [address] Wojciech Oneal M.D. [id number] BASIC METABOLIC PANELon Anion gap [Moles/Vol] 15 mmol/L Normal 10-20 [facility] Comment on above: Order Comment: [facility] has implemented the eGFR calculation approach that does not have a coefficient for race that conforms to the NKF-ASN Task Force Recommendations. Performed By: #### 4 6124 ####[facility] [place] [address] [id number] Wojciech Oneal M.D. [id number] Calcium [Mass/Vol] 6.8 mg/dL Low 8.4-10.2 [facility] Comment on above: Order Comment: [facility] has implemented the eGFR calculation approach that does not have a coefficient for race that conforms to the NKF-ASN Task Force Recommendations. Performed By: #### 4 6124 ####[facility] [place] [address] [id number] Wojciech Oneal M.D. [id number] Chloride [Moles/Vol] 106 mmol/L Normal 98-108 [facility] Comment on above: Order Comment: [facility] has implemented the eGFR calculation approach that does not have a coefficient for race that conforms to the NKF-ASN Task Force Recommendations. Performed By: #### 4 6124 ####[facility] [place] [address] [id number] Wojciech Oneal M.D. [id number] Creatinine [Mass/Vol] 0.70 mg/dL Low 0.80-1.30 [facility] Comment on above: Order Comment: [facility] has implemented the eGFR calculation approach that does not have a coefficient for race that conforms to the NKF-ASN Task Force Recommendations. Performed By: #### 4 6124 ####[facility] [place] [address] [id number] Wojciech Oneal M.D. [id number] EGFR 99 mL/min/1.73 m2 Normal >=60 [facility] Comment on above: Order Comment: [facility] has implemented the eGFR calculation approach that does not have a coefficient for race that conforms to the NKF-ASN Task Force Recommendations. Result Comment: Chelsea mated GFR was calculated using the 2020 CKD-EPI creatinine equation. Performed By: #### 4 6124 ####[facility] [place] [address] [address] Wojciech Oneal M.D. [id number] Glucose [Mass/Vol] 93 mg/dL Normal 65-99 [facility] Comment on above: Order Comment: [facility] has implemented the eGFR calculation approach that does not have a coefficient for race that conforms to the NKF-ASN Task Force Recommendations. Performed By: #### 4 6124 ####[facility] [place] [address] [id number] Wojciech Oneal M.D. [id number] HCO3 (Bld) [Moles/Vol] 20 mmol/L Low 21-32 [facility] Comment on above: Order Comment: [facility] has implemented the eGFR calculation approach that does not have a coefficient for race that conforms to the NKF-ASN Task Force Recommendations. Performed By: #### 4 6124 ####[facility] [place] [address] [id number] Wojciech Oneal M.D. [id number] Potassium [Moles/Vol] 4.1 mmol/L Normal 3.5-5.1 [facility] Comment on above: Order Comment: [facility] has implemented the eGFR calculation approach that does not have a coefficient for race that conforms to the NKF-ASN Task Force Recommendations. Result Comment: Slig htly Hemolyzed Performed By: #### 4 6124 ####[facility] [place] [address] [id number] Wojciech Oneal M.D. [id number] Sodium [Moles/Vol] 137 mmol/L Normal 135-145 [facility] Comment on above: Order Comment: [facility] has implemented the eGFR calculation approach that does not have a coefficient for race that conforms to the NKF-ASN Task Force Recommendations. Performed By: #### 4 6124 ####[facility] [place] [address] [id number] Wojciech Oneal M.D. [id number] Urea nitrogen [Mass/Vol] 9 mg/dL Normal 8-25 [facility] Comment on above: Order Comment: [facility] has implemented the eGFR calculation approach that does not have a coefficient for race that conforms to the NKF-ASN Task Force Recommendations. Performed By: #### 4 6124 ####[facility] [place] [address] [id number] Wojciech Oneal M.D. [id number] Urea nitrogen/Creatinine [Mass ratio] 12.9 mg/mg Normal 10.0-20.0 [facility] Comment on above: Order Comment: [facility] has implemented the eGFR calculation approach that does not have a coefficient for race that conforms to the NKF-ASN Task Force Recommendations. Performed By: #### 4 6124 ####[facility] [place] [address], [place] [address] Wojciech Oneal M.D. [id number] CBCon 02-15-2025 AUTO NRBC 0.0 % Normal [facility] Comment on above: Performed By: #### 4 [id number] ####[facility] [place] [address], [place] [address] Wojciech Oneal M.D. [id number] AUTO NRBC ABS COUNT 0.00 K/mcL Normal 0.00-0.00 [facility] Comment on above: Performed By: #### 4 [id number] ####[facility] [place] [address] [id number] Wojciech Oneal M.D. [id number] Erythrocyte distribution width (RBC) [Ratio] 15.7 % High 11.6-14.8 [facility] Comment on above: Performed By: #### 4 [id number] ####[facility] [place] [address] [address] Wojciech Oneal M.D. [id number] Hematocrit (Bld) [Volume fraction] 27.6 % Low 41.0-53.0 [facility] Comment on above: Performed By: #### 4 [id number] ####[facility] [place] [address] [address] Wojciech Oneal M.D. [id number] Hemoglobin (Bld) [Mass/Vol] 7.7 g/dL Low 13.5-17.5 [facility] Comment on above: Performed By: #### 4 [id number] ####[facility] [place] [address] [address] Wojciech Oneal M.D. [id number] MCH (RBC) [Entitic mass] 28.6 pg Normal 26.0-34.0 [facility] Comment on above: Performed By: #### 4 [id number] ####[facility] [place] [address] [address] Wojciech Oneal M.D. [id number] MCV (RBC) [Entitic vol] 102.6 fL High 80.0-100.0 [facility] Comment on above: Performed By: #### 4 [id number] ####[facility] [place] [address] [address] Wojciech Oneal M.D. [id number] MEAN CORPUSCULAR HEMOGLOBIN CONC 27.9 g/dL Low 31.0-37.0 [facility] Comment on above: Performed By: #### 4 [id number] ####[facility] [place] [address] [address] Wojciech Oneal M.D. [id number] Platelet mean volume (Bld) [Entitic vol] 8.9 fL Low 9.4-12.4 [facility] Comment on above: Performed By: #### 4 [id number] ####[facility] [place] [address] [address] Wojciech Oneal M.D. [id number] Platelets (Bld) [#/Vol] 381 10*3/uL Normal 150-400 [facility] Comment on above: Performed By: #### 4 [id number] ####[facility] [place] [address] [place], [place] [address] Wojciech Oneal M.D. [id number] RBC (Bld) [#/Vol] 2.69 10*6/uL Low 4.50-5.90 [facility] Comment on above: Performed By: #### 4 [id number] ####[facility] [place] [address] [id number] Wojciech Oneal M.D. [id number] WBC (Bld) [#/Vol] 8.42 10*3/uL Normal 4.50-11.00 [facility] Comment on above: Performed By: #### 4 [id number] ####[facility] [place] [address] [id number] Wojciech Oneal M.D. [id number] MAGNESIUM LEVELon 02-15-2025 Magnesium [Mass/Vol] 1.8 mg/dL Normal 1.6-2.4 [facility] Comment on above: Performed By: #### 4 6109 ####[facility] [address], [place] [address] Wojciech Oneal M.D. [id number] PHOSPHORUSon 02-15-2025 Phosphate [Mass/Vol] 2.7 mg/dL Normal 2.3-3.7 [facility] Comment on above: Performed By: #### 4 6299 ####[facility] [place] [address], [place] [address] Wojciech Oneal M.D. [id number] BASIC METABOLIC PANELon 10-0 Anion gap [Moles/Vol] 13 mmol/L Normal 10-20 [facility] Comment on above: Order Comment: [facility] has implemented the eGFR calculation approach that does not have a coefficient for race that conforms to the NKF-ASN Task Force Recommendations. Performed By: #### 4 6124 ####[facility] [place] [address], [place] [address] Wojciech Oneal M.D. [id number] Calcium [Mass/Vol] 7.2 mg/dL Low 8.4-10.2 [facility] Comment on above: Order Comment: [facility] has implemented the eGFR calculation approach that does not have a coefficient for race that conforms to the NKF-ASN Task Force Recommendations. Performed By: #### 4 6124 ####[facility] [place] [address] [id number] Wojciech Oneal M.D. [id number] Chloride [Moles/Vol] 108 mmol/L Normal 98-108 [facility] Comment on above: Order Comment: [facility] has implemented the eGFR calculation approach that does not have a coefficient for race that conforms to the NKF-ASN Task Force Recommendations. Performed By: #### 4 6124 ####[facility] [place] [address] [id number] Wojciech Oneal M.D. [id number] Creatinine [Mass/Vol] 0.64 mg/dL Low 0.80-1.30 [facility] Comment on above: Order Comment: [facility] has implemented the eGFR calculation approach that does not have a coefficient for race that conforms to the NKF-ASN Task Force Recommendations. Performed By: #### 4 6124 ####[facility] [address] [id number] Wojciech Oneal M.D. [id number] EGFR 101 mL/min/1.73 m2 Normal >=60 [facility] Comment on above: Order Comment: [facility] has implemented the eGFR calculation approach that does not have a coefficient for race that conforms to the NKF-ASN Task Force Recommendations. Result Comment: Chelsea mated GFR was calculated using the 2020 CKD-EPI creatinine equation. Performed By: #### 4 6124 ####[facility] [place] [address] [address] Wojciech Oneal M.D. [id number] Glucose [Mass/Vol] 93 mg/dL Normal 65-99 [facility] Comment on above: Order Comment: [facility] has implemented the eGFR calculation approach that does not have a coefficient for race that conforms to the NKF-ASN Task Force Recommendations. Performed By: #### 4 6124 ####[facility] [place] [address] [id number] Wojciech Oneal M.D. [id number] HCO3 (Bld) [Moles/Vol] 25 mmol/L Normal 21-32 [facility] Comment on above: Order Comment: [facility] has implemented the eGFR calculation approach that does not have a coefficient for race that conforms to the NKF-ASN Task Force Recommendations. Performed By: #### 4 6124 ####[facility] [place] [address] [address] Wojciech Oneal M.D. [id number] Potassium [Moles/Vol] 3.9 mmol/L Normal 3.5-5.1 [facility] Comment on above: Order Comment: [facility] has implemented the eGFR calculation approach that does not have a coefficient for race that conforms to the NKF-ASN Task Force Recommendations. Performed By: #### 4 6124 ####[facility] [place] [address] [address] Wojciech Onela M.D. [id number] Sodium [Moles/Vol] 142 mmol/L Normal 135-145 [facility] Comment on above: Order Comment: [facility] has implemented the eGFR calculation approach that does not have a coefficient for race that conforms to the NKF-ASN Task Force Recommendations. Performed By: #### 4 6124 ####[facility] [place] [address] [address] Wojciech Oneal M.D. [id number] Urea nitrogen [Mass/Vol] 8 mg/dL Normal 8-25 [facility] Comment on above: Order Comment: [facility] has implemented the eGFR calculation approach that does not have a coefficient for race that conforms to the NKF-ASN Task Force Recommendations. Performed By: #### 4 6124 ####[facility] [place] [address] [id number] Wojciech Oneal M.D. [id number] Urea nitrogen/Creatinine [Mass ratio] 12.5 mg/mg Normal 10.0-20.0 [facility] Comment on above: Order Comment: [facility] has implemented the eGFR calculation approach that does not have a coefficient for race that conforms to the NKF-ASN Task Force Recommendations. Performed By: #### 4 6124 ####[facility] [place] [address] [address] Wojciech Oneal M.D. [id number] CBCon 02-14-2025 AUTO NRBC 0.0 % Normal [facility] Comment on above: Performed By: #### 4 [id number] ####[facility] [place] [address] [address] Wojciech Oneal M.D. [id number] AUTO NRBC ABS COUNT 0.00 K/mcL Normal 0.00-0.00 [facility] Comment on above: Performed By: #### 4 [id number] ####[facility] [place] [address] [address] Wojciech Oneal M.D. [id number] Erythrocyte distribution width (RBC) [Ratio] 15.5 % High 11.6-14.8 [facility] Comment on above: Performed By: #### 4 [id number] ####[facility] [place] [address] [address] Wojciech Oneal M.D. [id number] Hematocrit (Bld) [Volume fraction] 24.5 % Low 41.0-53.0 [facility] Comment on above: Performed By: #### 4 [id number] ####[facility] [place] [address] [address] Wojciech Oneal M.D. [id number] Hemoglobin (Bld) [Mass/Vol] 7.4 g/dL Low 13.5-17.5 [facility] Comment on above: Performed By: #### 4 [id number] ####[facility] [place] [address] [address] Wojciech Oneal M.D. [id number] MCH (RBC) [Entitic mass] 29.5 pg Normal 26.0-34.0 [facility] Comment on above: Performed By: #### 4 [id number] ####[facility] [place] [address] [address] Wojciech Oneal M.D. [id number] MCV (RBC) [Entitic vol] 97.6 fL Normal 80.0-100.0 [facility] Comment on above: Performed By: #### 4 [id number] ####[facility] [place] [address], [place] [address] Wojciech Oneal M.D. [id number] MEAN CORPUSCULAR HEMOGLOBIN CONC 30.2 g/dL Low 31.0-37.0 [facility] Comment on above: Performed By: #### 4 [id number] ####[facility] [place] [address], [place] [address] Wojciech Oneal M.D. [id number] Platelet mean volume (Bld) [Entitic vol] 8.8 fL Low 9.4-12.4 [facility] Comment on above: Performed By: #### 4 [id number] ####[facility] [place] [address] [id number] Wojciech Oneal M.D. [id number] Platelets (Bld) [#/Vol] 467 10*3/uL High 150-400 [facility] Comment on above: Performed By: #### 4 [id number] ####[facility] [place] [address] [id number] Wojciech Oneal M.D. [id number] RBC (Bld) [#/Vol] 2.51 10*6/uL Low 4.50-5.90 [facility] Comment on above: Performed By: #### 4 [id number] ####[facility] [place] [address] [id number] Wojciech Oneal M.D. [id number] WBC (Bld) [#/Vol] 8.51 10*3/uL Normal 4.50-11.00 [facility] Comment on above: Performed By: #### 4 [id number] ####[facility] [place] [address] [id number] Wojciech Oneal M.D. [id number] IRON STUDY WITH FERRITINon 1 Ferritin [Mass/Vol] 290 ng/mL Normal 30-400 [facility] Comment on above: Performed By: #### 4 7645 ####[facility] [place] [address] [id number] Wojciech Oneal M.D. [id number] Iron [Mass/Vol] 15 ug/dL Low 40-165 [facility] Comment on above: Performed By: #### 4 7645 ####[facility] [place] [address], [place] [address] Wojciech Oneal M.D. [id number] IRON SATURATION 17 % Low 20-50 [facility] Comment on above: Performed By: #### 4 7645 ####[facility] [place] [address], [place] [address] Wojciech Oneal M.D. [id number] TIBC (CALCULATED) 87 mcg/dL Low 225-430 [facility] Comment on above: Performed By: #### 4 7645 ####[facility] [place] [address] [id number] Wojciech Oneal M.D. [id number] MAGNESIUM LEVELon 02-14-2025 Magnesium [Mass/Vol] 1.8 mg/dL Normal 1.6-2.4 [facility] Comment on above: Performed By: #### 4 6109 ####[facility] [place] [address] [id number] Wojciech Oneal M.D. [id number] PHOSPHORUSon 02-14-2025 Phosphate [Mass/Vol] 2.6 mg/dL Normal 2.3-3.7 [facility] Comment on above: Performed By: #### 4 6299 ####[facility] [place] [address] [id number] Wojciech Oneal M.D. [id number] BASIC METABOLIC PANELon 10-0 Anion gap [Moles/Vol] 10 mmol/L Normal 10-20 [facility] Comment on above: Order Comment: [facility] has implemented the eGFR calculation approach that does not have a coefficient for race that conforms to the NKF-ASN Task Force Recommendations. Performed By: #### 4 6124 ####[facility] [place] [address], [place] [address] Wojciech Oneal M.D. [id number] Calcium [Mass/Vol] 6.9 mg/dL Low 8.4-10.2 [facility] Comment on above: Order Comment: [facility] has implemented the eGFR calculation approach that does not have a coefficient for race that conforms to the NKF-ASN Task Force Recommendations. Performed By: #### 4 6124 ####[facility] [place] [address] [id number] Wojciech Oneal M.D. [id number] Chloride [Moles/Vol] 108 mmol/L Normal 98-108 [facility] Comment on above: Order Comment: [facility] has implemented the eGFR calculation approach that does not have a coefficient for race that conforms to the NKF-ASN Task Force Recommendations. Performed By: #### 4 6124 ####[facility] [place] [address] [address] Wojciech Oneal M.D. [id number] Creatinine [Mass/Vol] 0.72 mg/dL Low 0.80-1.30 [facility] Comment on above: Order Comment: [facility] has implemented the eGFR calculation approach that does not have a coefficient for race that conforms to the NKF-ASN Task Force Recommendations. Performed By: #### 4 6124 ####[facility] [place] [address] [id number] Wojciech Oneal M.D. [id number] EGFR 98 mL/min/1.73 m2 Normal >=60 [facility] Comment on above: Order Comment: [facility] has implemented the eGFR calculation approach that does not have a coefficient for race that conforms to the NKF-ASN Task Force Recommendations. Result Comment: Chelsea mated GFR was calculated using the 2020 CKD-EPI creatinine equation. Performed By: #### 4 6124 ####[facility] [place] [address] [id number] Wojciech Oneal M.D. [id number] Glucose [Mass/Vol] 98 mg/dL Normal 65-99 [facility] Comment on above: Order Comment: [facility] has implemented the eGFR calculation approach that does not have a coefficient for race that conforms to the NKF-ASN Task Force Recommendations. Performed By: #### 4 6124 ####[facility] [place] [address] [id number] Wojciech Oneal M.D. [id number] HCO3 (Bld) [Moles/Vol] 26 mmol/L Normal 21-32 [facility] Comment on above: Order Comment: [facility] has implemented the eGFR calculation approach that does not have a coefficient for race that conforms to the NKF-ASN Task Force Recommendations. Performed By: #### 4 6124 ####[facility] [place] [address] [id number] Wojciech Oneal M.D. [id number] Potassium [Moles/Vol] 3.4 mmol/L Low 3.5-5.1 [facility] Comment on above: Order Comment: [facility] has implemented the eGFR calculation approach that does not have a coefficient for race that conforms to the NKF-ASN Task Force Recommendations. Performed By: #### 4 6124 ####[facility] [place] [address] [id number] Wojciech Oneal M.D. [id number] Sodium [Moles/Vol] 141 mmol/L Normal 135-145 [facility] Comment on above: Order Comment: [facility] has implemented the eGFR calculation approach that does not have a coefficient for race that conforms to the NKF-ASN Task Force Recommendations. Performed By: #### 4 6124 ####[facility] [place] [address] [address] Wojciech Oneal M.D. [id number] Urea nitrogen [Mass/Vol] 7 mg/dL Low 8-25 [facility] Comment on above: Order Comment: [facility] has implemented the eGFR calculation approach that does not have a coefficient for race that conforms to the NKF-ASN Task Force Recommendations. Performed By: #### 4 6124 ####[facility] [place] [address] [id number] Wojciech Oneal M.D. [id number] Urea nitrogen/Creatinine [Mass ratio] 9.7 mg/mg Low 10.0-20.0 [facility] Comment on above: Order Comment: [facility] has implemented the eGFR calculation approach that does not have a coefficient for race that conforms to the NKF-ASN Task Force Recommendations. Performed By: #### 4 6124 ####[facility] [place] [address] [id number] Wojciech Oneal M.D. [id number] CBCon 02-13-2025 AUTO NRBC 0.0 % Normal [facility] Comment on above: Performed By: #### 4 [id number] ####[facility] [place] [address] [address] Wojciech Oneal M.D. [id number] AUTO NRBC ABS COUNT 0.00 K/mcL Normal 0.00-0.00 [facility] Comment on above: Performed By: #### 4 [id number] ####[facility] [place] [address] [address] Wojciech Oneal M.D. [id number] Erythrocyte distribution width (RBC) [Ratio] 15.6 % High 11.6-14.8 [facility] Comment on above: Performed By: #### 4 [id number] ####[facility] [address] [address] Wojciech Oneal M.D. [id number] Hematocrit (Bld) [Volume fraction] 24.1 % Low 41.0-53.0 [facility] Comment on above: Performed By: #### 4 [id number] ####[facility] [place] [address] [address] Wojciech Oneal M.D. [id number] Hemoglobin (Bld) [Mass/Vol] 7.3 g/dL Low 13.5-17.5 [facility] Comment on above: Performed By: #### 4 [id number] ####[facility] [place] [address] [address] Wojciech Oneal M.D. [id number] MCH (RBC) [Entitic mass] 28.7 pg Normal 26.0-34.0 [facility] Comment on above: Performed By: #### 4 [id number] ####[facility] [place] [address] [address] Wojciech Oneal M.D. [id number] MCV (RBC) [Entitic vol] 94.9 fL Normal 80.0-100.0 [facility] Comment on above: Performed By: #### 4 [id number] ####[facility] [place] [address] [address] Wojciech Oneal M.D. [id number] MEAN CORPUSCULAR HEMOGLOBIN CONC 30.3 g/dL Low 31.0-37.0 [facility] Comment on above: Performed By: #### 4 5218 ####[facility] [address], [place] [address] Wojciech Oneal M.D. [id number] Platelet mean volume (Bld) [Entitic vol] 8.5 fL Low 9.4-12.4 [facility] Comment on above: Performed By: #### 4 [id number] ####[facility] [place] [address], [place] [address] Wojciech Oneal M.D. [id number] Platelets (Bld) [#/Vol] 493 10*3/uL High 150-400 [facility] Comment on above: Performed By: #### 4 [id number] ####[facility] [place] [address], [place] [address] Wojciech Oneal M.D. [id number] RBC (Bld) [#/Vol] 2.54 10*6/uL Low 4.50-5.90 [facility] Comment on above: Performed By: #### 4 [id number] ####[facility] [place] [address] [id number] Wojciech Oneal M.D. [id number] WBC (Bld) [#/Vol] 7.51 10*3/uL Normal 4.50-11.00 [facility] Comment on above: Performed By: #### 4 [id number] ####[facility] [place] [address] [id number] Wojciech Oneal M.D. [id number] MAGNESIUM LEVELon 02-13-2025 Magnesium [Mass/Vol] 1.8 mg/dL Normal 1.6-2.4 [facility] Comment on above: Performed By: #### 4 6109 ####[facility] [place] [address], [place] [address] Wojciech Oneal M.D. [id number] PHOSPHORUSon 02-13-2025 Phosphate [Mass/Vol] 2.6 mg/dL Normal 2.3-3.7 [facility] Comment on above: Performed By: #### 4 6299 ####[facility] [place] [address] [id number] Wojciech Oneal M.D. [id number] BASIC METABOLIC PANELon Anion gap [Moles/Vol] 11 mmol/L Normal 10-20 [facility] Comment on above: Order Comment: [facility] has implemented the eGFR calculation approach that does not have a coefficient for race that conforms to the NKF-ASN Task Force Recommendations. Performed By: #### 4 6124 ####[facility] [place] [address] [id number] Wojciech Oneal M.D. [id number] Calcium [Mass/Vol] 7.2 mg/dL Low 8.4-10.2 [facility] Comment on above: Order Comment: [facility] has implemented the eGFR calculation approach that does not have a coefficient for race that conforms to the NKF-ASN Task Force Recommendations. Performed By: #### 4 6124 ####[facility] [place] [address] [id number] Wojciech Oneal M.D. [id number] Chloride [Moles/Vol] 109 mmol/L High 98-108 [facility] Comment on above: Order Comment: [facility] has implemented the eGFR calculation approach that does not have a coefficient for race that conforms to the NKF-ASN Task Force Recommendations. Performed By: #### 4 6124 ####[facility] [place] [address] [id number] Wojciech Oneal M.D. [id number] Creatinine [Mass/Vol] 0.71 mg/dL Low 0.80-1.30 [facility] Comment on above: Order Comment: [facility] has implemented the eGFR calculation approach that does not have a coefficient for race that conforms to the NKF-ASN Task Force Recommendations. Performed By: #### 4 6124 ####[facility] [address], [place] [address] Wojciech Oneal M.D. [id number] EGFR 98 mL/min/1.73 m2 Normal >=60 [facility] Comment on above: Order Comment: [facility] has implemented the eGFR calculation approach that does not have a coefficient for race that conforms to the NKF-ASN Task Force Recommendations. Result Comment: Chelsea mated GFR was calculated using the 2020 CKD-EPI creatinine equation. Performed By: #### 4 6152 ####[facility] [place] [address], [place] [address] Wojciech Oneal M.D. [id number] Glucose [Mass/Vol] 91 mg/dL Normal 65-99 [facility] Comment on above: Order Comment: [facility] has implemented the eGFR calculation approach that does not have a coefficient for race that conforms to the NKF-ASN Task Force Recommendations. Performed By: #### 4 6124 ####[facility] [place] [address] [id number] Wojciech Oneal M.D. [id number] HCO3 (Bld) [Moles/Vol] 25 mmol/L Normal 21-32 [facility] Comment on above: Order Comment: [facility] has implemented the eGFR calculation approach that does not have a coefficient for race that conforms to the NKF-ASN Task Force Recommendations. Performed By: #### 4 6124 ####[facility] [place] [address] [id number] Wojciech Oneal M.D. [id number] Potassium [Moles/Vol] 3.8 mmol/L Normal 3.5-5.1 [facility] Comment on above: Order Comment: [facility] has implemented the eGFR calculation approach that does not have a coefficient for race that conforms to the NKF-ASN Task Force Recommendations. Performed By: #### 4 6124 ####[facility] [place] [address] [id number] Wojciech Oneal M.D. [id number] Sodium [Moles/Vol] 141 mmol/L Normal 135-145 [facility] Comment on above: Order Comment: [facility] has implemented the eGFR calculation approach that does not have a coefficient for race that conforms to the NKF-ASN Task Force Recommendations. Performed By: #### 4 6124 ####[facility] [place] [address] [id number] Wojciech Oneal M.D. [id number] Urea nitrogen [Mass/Vol] 8 mg/dL Normal 8-25 [facility] Comment on above: Order Comment: [facility] has implemented the eGFR calculation approach that does not have a coefficient for race that conforms to the NKF-ASN Task Force Recommendations. Performed By: #### 4 6124 ####[facility] [place] [address] [id number] Wojciech Onela M.D. [id number] Urea nitrogen/Creatinine [Mass ratio] 11.3 mg/mg Normal 10.0-20.0 [facility] Comment on above: Order Comment: [facility] has implemented the eGFR calculation approach that does not have a coefficient for race that conforms to the NKF-ASN Task Force Recommendations. Performed By: #### 4 6124 ####[facility] [place] [address] [id number] Wojciech Oneal M.D. [id number] CBCon 02-12-2025 AUTO NRBC 0.0 % Normal [facility] Comment on above: Performed By: #### 4 [id number] ####[facility] [place] [address] [address] Wojciech Oneal M.D. [id number] AUTO NRBC ABS COUNT 0.00 K/mcL Normal 0.00-0.00 [facility] Comment on above: Performed By: #### 4 [id number] ####[facility] [place] [address] [id number] Wojciech Oneal M.D. [id number] Erythrocyte distribution width (RBC) [Ratio] 15.3 % High 11.6-14.8 [facility] Comment on above: Performed By: #### 4 [id number] ####[facility] [place] [address] [id number] Wojciech Oneal M.D. [id number] Hematocrit (Bld) [Volume fraction] 25.3 % Low 41.0-53.0 [facility] Comment on above: Performed By: #### 4 [id number] ####[facility] [place] [place] [facility] [address] [id number] Wojciech Oneal M.D. [id number] Hemoglobin (Bld) [Mass/Vol] 7.6 g/dL Low 13.5-17.5 [facility] Comment on above: Performed By: #### 4 [id number] ####[facility] [place] [place] [facility] [address] [address] Wojciech Oneal M.D. [id number] MCH (RBC) [Entitic mass] 29.2 pg Normal 26.0-34.0 [facility] Comment on above: Performed By: #### 4 [id number] ####[facility] [place] [place] [facility] [address] [address] Wojciech Oneal M.D. [id number] MCV (RBC) [Entitic vol] 97.3 fL Normal 80.0-100.0 [facility] Comment on above: Performed By: #### 4 [id number] ####[facility] [place] [place] [facility] [address] [address] Wojciech Oneal M.D. [id number] MEAN CORPUSCULAR HEMOGLOBIN CONC 30.0 g/dL Low 31.0-37.0 [facility] Comment on above: Performed By: #### 4 [id number] ####[facility] [place] [place] [facility] [address] [address] Wojciech Oneal M.D. [id number] Platelet mean volume (Bld) [Entitic vol] 8.8 fL Low 9.4-12.4 [facility] Comment on above: Performed By: #### 4 [id number] ####[facility] [place] [place] [facility] [address] [address] Wojciech Oneal M.D. [id number] Platelets (Bld) [#/Vol] 519 10*3/uL High 150-400 [facility] Comment on above: Performed By: #### 4 [id number] ####[facility] [place] [place] [facility] [address] [id number] Wojciech Oneal M.D. [id number] RBC (Bld) [#/Vol] 2.60 10*6/uL Low 4.50-5.90 [facility] Comment on above: Performed By: #### 4 [id number] ####[facility] [place] [place] [facility] [address] [id number] Wojciech Oneal M.D. [id number] WBC (Bld) [#/Vol] 9.04 10*3/uL Normal 4.50-11.00 [facility] Comment on above: Performed By: #### 4 [id number] ####[facility] [place] [place] [facility] [address] [address] Wojciech Oneal M.D. [id number] MAGNESIUM LEVELon 02-12-2025 Magnesium [Mass/Vol] 1.8 mg/dL Normal 1.6-2.4 [facility] Comment on above: Performed By: #### 4 6109 ####[facility] [place] [place] [facility] [address] [id number] Wojciech Oneal M.D. [id number] OP NOTEon 02-12-2025 OP NOTE Normal [facility] PHOSPHORUSon 02-12-2025 Phosphate [Mass/Vol] 2.3 mg/dL Normal 2.3-3.7 [facility] Comment on above: Performed By: #### 4 6299 ####[facility] [place] [place] [facility] [address] [id number] Wojciech Oneal M.D. [id number] URINE AEROBIC CULTUREon URINE AEROBIC CULTURE Abnormal [facility] Comment on above: Performed By: #### 4 4053 ####[facility] [address] [address] Tuan Ascencio M.D. [id number] BASIC METABOLIC PANELon Anion gap [Moles/Vol] 13 mmol/L Normal 10-20 [facility] Comment on above: Order Comment: [facility] has implemented the eGFR calculation approach that does not have a coefficient for race that conforms to the NKF-ASN Task Force Recommendations. Performed By: #### 4 6124 ####[facility] [place] [place] [facility] [address] [id number] Wojciech Oneal M.D. [id number] Calcium [Mass/Vol] 7.2 mg/dL Low 8.4-10.2 [facility] Comment on above: Order Comment: [facility] has implemented the eGFR calculation approach that does not have a coefficient for race that conforms to the NKF-ASN Task Force Recommendations. Performed By: #### 4 6124 ####[facility] [place] [place] [facility] [address] [id number] Wojciech Oneal M.D. [id number] Chloride [Moles/Vol] 110 mmol/L High 98-108 [facility] Comment on above: Order Comment: [facility] has implemented the eGFR calculation approach that does not have a coefficient for race that conforms to the NKF-ASN Task Force Recommendations. Performed By: #### 4 6124 ####[facility] [place] [place] [facility] [address], [place] [address] Wojciech Oneal M.D. [id number] Creatinine [Mass/Vol] 0.71 mg/dL Low 0.80-1.30 [facility] Comment on above: Order Comment: [facility] has implemented the eGFR calculation approach that does not have a coefficient for race that conforms to the NKF-ASN Task Force Recommendations. Performed By: #### 4 6124 ####[facility] [place] [place] [facility] [address] [id number] Wojciech Oneal M.D. [id number] EGFR 98 mL/min/1.73 m2 Normal >=60 [facility] Comment on above: Order Comment: [facility] has implemented the eGFR calculation approach that does not have a coefficient for race that conforms to the NKF-ASN Task Force Recommendations. Result Comment: Chelsea mated GFR was calculated using the 2020 CKD-EPI creatinine equation. Performed By: #### 4 6124 ####[facility] [place] [place] [facility] [address] [id number] Wojciech Oneal M.D. [id number] Glucose [Mass/Vol] 102 mg/dL High 65-99 [facility] Comment on above: Order Comment: [facility] has implemented the eGFR calculation approach that does not have a coefficient for race that conforms to the NKF-ASN Task Force Recommendations. Performed By: #### 4 6124 ####[facility] [place] [place] [facility] [address] [id number] Wojciech Oneal M.D. [id number] HCO3 (Bld) [Moles/Vol] 23 mmol/L Normal 21-32 [facility] Comment on above: Order Comment: [facility] has implemented the eGFR calculation approach that does not have a coefficient for race that conforms to the NKF-ASN Task Force Recommendations. Performed By: #### 4 6124 ####[facility] [place] [place] [facility] [address] [address] Wojciech Oneal M.D. [id number] Potassium [Moles/Vol] 3.9 mmol/L Normal 3.5-5.1 [facility] Comment on above: Order Comment: [facility] has implemented the eGFR calculation approach that does not have a coefficient for race that conforms to the NKF-ASN Task Force Recommendations. Result Comment: Slsebastián htly Hemolyzed Performed By: #### 4 6124 ####[facility] [place] [place] [facility] [address] [address] Wojciech Oneal M.D. [id number] Sodium [Moles/Vol] 142 mmol/L Normal 135-145 [facility] Comment on above: Order Comment: [facility] has implemented the eGFR calculation approach that does not have a coefficient for race that conforms to the NKF-ASN Task Force Recommendations. Performed By: #### 4 6124 ####[facility] [place] [place] [facility] [address] [address] Wojciech Oneal M.D. [id number] Urea nitrogen [Mass/Vol] 7 mg/dL Low 8-25 [facility] Comment on above: Order Comment: [facility] has implemented the eGFR calculation approach that does not have a coefficient for race that conforms to the NKF-ASN Task Force Recommendations. Performed By: #### 4 6124 ####[facility] [place] [place] [facility] [address] [id number] Wojciech Oneal M.D. [id number] Urea nitrogen/Creatinine [Mass ratio] 9.9 mg/mg Low 10.0-20.0 [facility] Comment on above: Order Comment: [facility] has implemented the eGFR calculation approach that does not have a coefficient for race that conforms to the NKF-ASN Task Force Recommendations. Performed By: #### 4 6124 ####[facility] [place] [place] [facility] [address] [place], [place] [address] Wojciech Oneal M.D. [id number] CBCon 02-11-2025 AUTO NRBC 0.0 % Normal [facility] Comment on above: Performed By: #### 4 [id number] ####[facility] [place] [place] [facility] [address] [id number] Wojciech Oneal M.D. [id number] AUTO NRBC ABS COUNT 0.00 K/mcL Normal 0.00-0.00 [facility] Comment on above: Performed By: #### 4 [id number] ####[facility] [place] [place] [facility] [address] [address] Wojciech Oneal M.D. [id number] Erythrocyte distribution width (RBC) [Ratio] 15.3 % High 11.6-14.8 [facility] Comment on above: Performed By: #### 4 [id number] ####[facility] [place] [place] [facility] [address] [address] Wojciech Oneal M.D. [id number] Hematocrit (Bld) [Volume fraction] 27.0 % Low 41.0-53.0 [facility] Comment on above: Performed By: #### 4 [id number] ####[facility] [place] [place] [facility] [address] [address] Wojciech Oneal M.D. [id number] Hemoglobin (Bld) [Mass/Vol] 8.1 g/dL Low 13.5-17.5 [facility] Comment on above: Performed By: #### 4 [id number] ####[facility] [place] [place] [facility] [address] [address] Wojciech Oneal M.D. [id number] MCH (RBC) [Entitic mass] 29.2 pg Normal 26.0-34.0 [facility] Comment on above: Performed By: #### 4 [id number] ####[facility] [place] [place] [facility] [address] [address] Wojciech Oneal M.D. [id number] MCV (RBC) [Entitic vol] 97.5 fL Normal 80.0-100.0 [facility] Comment on above: Performed By: #### 4 [id number] ####[facility] [place] [place] [facility] [address] [address] Wojciech Oneal M.D. [id number] MEAN CORPUSCULAR HEMOGLOBIN CONC 30.0 g/dL Low 31.0-37.0 [facility] Comment on above: Performed By: #### 4 [id number] ####[facility] [place] [place] [facility] [address] [address] Wojciech Oneal M.D. [id number] Platelet mean volume (Bld) [Entitic vol] 8.9 fL Low 9.4-12.4 [facility] Comment on above: Performed By: #### 4 [id number] ####[facility] [place] [place] [facility] [address] [id number] Wojciech Oneal M.D. [id number] Platelets (Bld) [#/Vol] 575 10*3/uL High 150-400 [facility] Comment on above: Performed By: #### 4 [id number] ####[facility] [place] [place] [facility] [address] [address] Wojciech Oneal M.D. [id number] RBC (Bld) [#/Vol] 2.77 10*6/uL Low 4.50-5.90 [facility] Comment on above: Performed By: #### 4 [id number] ####[facility] [place] [place] [facility] [address] [id number] Wojciech Oneal M.D. [id number] WBC (Bld) [#/Vol] 7.39 10*3/uL Normal 4.50-11.00 [facility] Comment on above: Performed By: #### 4 [id number] ####[facility] [place] [place] [facility] [address] [id number] Wojciech Oneal M.D. [id number] MAGNESIUM LEVELon 02-11-2025 Magnesium [Mass/Vol] 1.9 mg/dL Normal 1.6-2.4 [facility] Comment on above: Performed By: #### 4 6109 ####[facility] [place] [place] [facility] [address] [id number] Wojciech Oneal M.D. [id number] PHOSPHORUSon 02-11-2025 Phosphate [Mass/Vol] 2.6 mg/dL Normal 2.3-3.7 [facility] Comment on above: Performed By: #### 4 6299 ####[facility] [place] [place] [facility] [address] [id number] Wojciech Oneal M.D. [id number] URINALYSISon 02-11-2025 BACTERIA, URINE Rare Abnormal None Seen [facility] Comment on above: Order Comment: Micro scopic examination is performed on all urinalysis samples and only positive findings are reported. The test for blood on the chemical analytic portion of urinalysis may also be positive due to hemoglobinuria and myoglobinuria and if red blood cells are present they are quantified by microscopic examination. Performed By: #### 4 [id number] ####[facility] [place] [place] [facility] [address] [id number] Wojciech Oneal M.D. [id number] BILIRUBIN, URINE Negative Normal Negative [facility] Comment on above: Order Comment: Micro scopic examination is performed on all urinalysis samples and only positive findings are reported. The test for blood on the chemical analytic portion of urinalysis may also be positive due to hemoglobinuria and myoglobinuria and if red blood cells are present they are quantified by microscopic examination. Performed By: #### 4 [id number] ####[facility] [place] [place] [facility] [address] [id number] Wojciech Oneal M.D. [id number] BLOOD, URINE Moderate Abnormal Negative [facility] Comment on above: Order Comment: Micro scopic examination is performed on all urinalysis samples and only positive findings are reported. The test for blood on the chemical analytic portion of urinalysis may also be positive due to hemoglobinuria and myoglobinuria and if red blood cells are present they are quantified by microscopic examination. Performed By: #### 4 [id number] ####[facility] [place] [place] [facility] [address] [id number] Wojciech Oenal M.D. [id number] Clarity (U) Clear Normal Clear [facility] Comment on above: Order Comment: Micro scopic examination is performed on all urinalysis samples and only positive findings are reported. The test for blood on the chemical analytic portion of urinalysis may also be positive due to hemoglobinuria and myoglobinuria and if red blood cells are present they are quantified by microscopic examination. Performed By: #### 4 [id number] ####[facility] [place] [place] [facility] [address] [id number] Wojciech Oneal M.D. [id number] Color (U) Yellow Normal Colorless, Yellow [facility] Comment on above: Order Comment: Micro scopic examination is performed on all urinalysis samples and only positive findings are reported. The test for blood on the chemical analytic portion of urinalysis may also be positive due to hemoglobinuria and myoglobinuria and if red blood cells are present they are quantified by microscopic examination. Performed By: #### 4 [id number] ####[facility] [place] [place] [facility] [address] [id number] Wojciech Oneal M.D. [id number] Glucose Ql (U) Negative Normal Negative [facility] Comment on above: Order Comment: Micro scopic examination is performed on all urinalysis samples and only positive findings are reported. The test for blood on the chemical analytic portion of urinalysis may also be positive due to hemoglobinuria and myoglobinuria and if red blood cells are present they are quantified by microscopic examination. Performed By: #### 4 [id number] ####[facility] [place] [place] [facility] [address] [id number] Wojciech nOeal M.D. [id number] Ketones Ql (U) Negative Normal Negative [facility] Comment on above: Order Comment: Micro scopic examination is performed on all urinalysis samples and only positive findings are reported. The test for blood on the chemical analytic portion of urinalysis may also be positive due to hemoglobinuria and myoglobinuria and if red blood cells are present they are quantified by microscopic examination. Performed By: #### 4 [id number] ####[facility] [place] [place] [facility] [address], [place] [address] Wojciech Onael M.D. [id number] Leukocyte esterase Test strip Ql (U) Negative Normal Negative [facility] Comment on above: Order Comment: Micro scopic examination is performed on all urinalysis samples and only positive findings are reported. The test for blood on the chemical analytic portion of urinalysis may also be positive due to hemoglobinuria and myoglobinuria and if red blood cells are present they are quantified by microscopic examination. Performed By: #### 4 [id number] ####[facility] [place] [place] [facility] [address], [place] [address] Wojciech Oneal M.D. [id number] MUCUS, URINE Rare Normal None Seen, [facility] Comment on above: Order Comment: Micro scopic examination is performed on all urinalysis samples and only positive findings are reported. The test for blood on the chemical analytic portion of urinalysis may also be positive due to hemoglobinuria and myoglobinuria and if red blood cells are present they are quantified by microscopic examination. Performed By: #### 4 [id number] ####[facility] [place] [place] [facility] [address] [id number] Wojciech Oneal M.D. [id number] NITRITE, URINE Positive Abnormal Negative [facility] Comment on above: Order Comment: Micro scopic examination is performed on all urinalysis samples and only positive findings are reported. The test for blood on the chemical analytic portion of urinalysis may also be positive due to hemoglobinuria and myoglobinuria and if red blood cells are present they are quantified by microscopic examination. Performed By: #### 4 [id number] ####[facility] [place] [place] [facility] [address] [id number] Wojciech Oneal M.D. [id number] pH (U) 5.5 [pH] Normal 5.0-7.0 [facility] Comment on above: Order Comment: Micro scopic examination is performed on all urinalysis samples and only positive findings are reported. The test for blood on the chemical analytic portion of urinalysis may also be positive due to hemoglobinuria and myoglobinuria and if red blood cells are present they are quantified by microscopic examination. Performed By: #### 4 [id number] ####[facility] [place] [place] [facility] [address] [id number] Wojciech Oneal M.D. [id number] Protein (U) [Mass/Vol] 30 mg/dL Abnormal Negative [facility] Comment on above: Order Comment: [...] ammonium compounds. Performed By: #### 4 [id number] ####[facility] [place] [place] [facility] [address] [id number] Wojciech Oneal M.D. [id number] RBC LM.HPF (Urine sed) [#/Area] 11 /[HPF] High 0-3 [facility] Comment on above: Order Comment: Micro scopic examination is performed on all urinalysis samples and only positive findings are reported. The test for blood on the chemical analytic portion of urinalysis may also be positive due to hemoglobinuria and myoglobinuria and if red blood cells are present they are quantified by microscopic examination. Performed By: #### 4 [id number] ####[facility] [place] [place] [facility] [address] [id number] Wojciech Oneal M.D. [id number] Specific gravity (U) [Rel density] 1.022 Normal 1.005-1.025 [facility] Comment on above: Order Comment: Micro scopic examination is performed on all urinalysis samples and only positive findings are reported. The test for blood on the chemical analytic portion of urinalysis may also be positive due to hemoglobinuria and myoglobinuria and if red blood cells are present they are quantified by microscopic examination. Performed By: #### 4 [id number] ####[facility] [place] [place] [facility] [address] [id number] Wojciech Oneal M.D. [id number] SQUAMOUS EPITHELIAL 1 /hpf Normal 0-4 [facility] Comment on above: Order Comment: Micro scopic examination is performed on all urinalysis samples and only positive findings are reported. The test for blood on the chemical analytic portion of urinalysis may also be positive due to hemoglobinuria and myoglobinuria and if red blood cells are present they are quantified by microscopic examination. Performed By: #### 4 [id number] ####[facility] [place] [place] [facility] [address] [id number] Wojciech Oneal M.D. [id number] UROBILINOGEN, URINE <2.0 Normal <2.0 [facility] Comment on above: Order Comment: Micro scopic examination is performed on all urinalysis samples and only positive findings are reported. The test for blood on the chemical analytic portion of urinalysis may also be positive due to hemoglobinuria and myoglobinuria and if red blood cells are present they are quantified by microscopic examination. Performed By: #### 4 [id number] ####[facility] [place] [place] [facility] [address], [place] [address] Wojciech Oneal M.D. [id number] WBC LM.HPF (Urine sed) [#/Area] 6 /[HPF] High 0-5 [facility] Comment on above: Order Comment: Micro scopic examination is performed on all urinalysis samples and only positive findings are reported. The test for blood on the chemical analytic portion of urinalysis may also be positive due to hemoglobinuria and myoglobinuria and if red blood cells are present they are quantified by microscopic examination. Performed By: #### 4 [id number] ####[facility] [place] [place] [facility] [address] [id number] Wojciech Oneal M.D. [id number] BASIC METABOLIC PANELon 09-3 -2024 Anion gap [Moles/Vol] 14 mmol/L Normal 10-20 [facility] Comment on above: Order Comment: [facility] has implemented the eGFR calculation approach that does not have a coefficient for race that conforms to the NKF-ASN Task Force Recommendations. Performed By: #### 4 [id number] ####[facility] [place] [place] [facility] [address] [address] Wojciech Oneal M.D. [id number] Calcium [Mass/Vol] 7.1 mg/dL Low 8.4-10.2 [facility] Comment on above: Order Comment: [facility] has implemented the eGFR calculation approach that does not have a coefficient for race that conforms to the NKF-ASN Task Force Recommendations. Performed By: #### 4 [id number] ####[facility] [place] [place] [facility] [address] [id number] Wojciech Oneal M.D. [id number] Chloride [Moles/Vol] 111 mmol/L High 98-108 [facility] Comment on above: Order Comment: [facility] has implemented the eGFR calculation approach that does not have a coefficient for race that conforms to the NKF-ASN Task Force Recommendations. Performed By: #### 4 [id number] ####[facility] [place] [place] [facility] [address] [address] Wojciech Oneal M.D. [id number] Creatinine [Mass/Vol] 0.76 mg/dL Low 0.80-1.30 [facility] Comment on above: Order Comment: [facility] has implemented the eGFR calculation approach that does not have a coefficient for race that conforms to the NKF-ASN Task Force Recommendations. Performed By: #### 4 6124 ####[facility] [place] [place] [facility] [address] [address] Wojciech Oneal M.D. [id number] EGFR 96 mL/min/1.73 m2 Normal >=60 [facility] Comment on above: Order Comment: [facility] has implemented the eGFR calculation approach that does not have a coefficient for race that conforms to the NKF-ASN Task Force Recommendations. Result Comment: Chelsea mated GFR was calculated using the 2020 CKD-EPI creatinine equation. Performed By: #### 4 [id number] ####[facility] [place] [place] [facility] [address] [address] Wojciech Oneal M.D. [id number] Glucose [Mass/Vol] 92 mg/dL Normal 65-99 [facility] Comment on above: Order Comment: [facility] has implemented the eGFR calculation approach that does not have a coefficient for race that conforms to the NKF-ASN Task Force Recommendations. Performed By: #### 4 [id number] ####[facility] [place] [place] [address] [id number] Wojciech Oneal M.D. [id number] HCO3 (Bld) [Moles/Vol] 23 mmol/L Normal 21-32 [facility] Comment on above: Order Comment: [facility] has implemented the eGFR calculation approach that does not have a coefficient for race that conforms to the NKF-ASN Task Force Recommendations. Performed By: #### 4 [id number] ####[facility] [place] [place] [address] [id number] Wojciech Oneal M.D. [id number] Potassium [Moles/Vol] 3.5 mmol/L Normal 3.5-5.1 [facility] Comment on above: Order Comment: [facility] has implemented the eGFR calculation approach that does not have a coefficient for race that conforms to the NKF-ASN Task Force Recommendations. Performed By: #### 4 [id number] ####[facility] [place] [place] [facility] [address] [id number] Wojciech Oneal M.D. [id number] Sodium [Moles/Vol] 144 mmol/L Normal 135-145 [facility] Comment on above: Order Comment: [facility] has implemented the eGFR calculation approach that does not have a coefficient for race that conforms to the NKF-ASN Task Force Recommendations. Performed By: #### 4 6124 ####[facility] [place] [place] [facility] [address] [id number] Wojciech Oneal M.D. [id number] Urea nitrogen [Mass/Vol] 7 mg/dL Low 8-25 [facility] Comment on above: Order Comment: [facility] has implemented the eGFR calculation approach that does not have a coefficient for race that conforms to the NKF-ASN Task Force Recommendations. Performed By: #### 4 6124 ####[facility] [place] [place] [facility] [address] [id number] Wojciech Oneal M.D. [id number] Urea nitrogen/Creatinine [Mass ratio] 9.2 mg/mg Low 10.0-20.0 [facility] Comment on above: Order Comment: [facility] has implemented the eGFR calculation approach that does not have a coefficient for race that conforms to the NKF-ASN Task Force Recommendations. Performed By: #### 4 6124 ####[facility] [place] [place] [facility] [address] [id number] Wojciech Oneal M.D. [id number] CBCon 02-10-2025 AUTO NRBC 0.0 % Normal [facility] Comment on above: Performed By: #### 4 [id number] ####[facility] [place] [place] [facility] [address] [id number] Wojciech Oneal M.D. [id number] AUTO NRBC ABS COUNT 0.00 K/mcL Normal 0.00-0.00 [facility] Comment on above: Performed By: #### 4 [id number] ####[facility] [place] [place] [facility] [address] [id number] Wojciech Oneal M.D. [id number] Erythrocyte distribution width (RBC) [Ratio] 15.2 % High 11.6-14.8 [facility] Comment on above: Performed By: #### 4 [id number] ####[facility] [place] [place] [facility] [address] [id number] Wojciech Oneal M.D. [id number] Hematocrit (Bld) [Volume fraction] 24.7 % Low 41.0-53.0 [facility] Comment on above: Performed By: #### 4 [id number] ####[facility] [place] [place] [facility] [address] [id number] Wojciech Oneal M.D. [id number] Hemoglobin (Bld) [Mass/Vol] 7.4 g/dL Low 13.5-17.5 [facility] Comment on above: Performed By: #### 4 [id number] ####[facility] [place] [place] [facility] [address] [address] Wojciech Oneal M.D. [id number] MCH (RBC) [Entitic mass] 29.0 pg Normal 26.0-34.0 [facility] Comment on above: Performed By: #### 4 [id number] ####[facility] [place] [place] [facility] [address] [address] Wojciech Oneal M.D. [id number] MCV (RBC) [Entitic vol] 96.9 fL Normal 80.0-100.0 [facility] Comment on above: Performed By: #### 4 [id number] ####[facility] [place] [place] [facility] [address] [address] Wojciech Oneal M.D. [id number] MEAN CORPUSCULAR HEMOGLOBIN CONC 30.0 g/dL Low 31.0-37.0 [facility] Comment on above: Performed By: #### 4 [id number] ####[facility] [place] [place] [facility] [address] [address] Wojciech Oneal M.D. [id number] Platelet mean volume (Bld) [Entitic vol] 8.7 fL Low 9.4-12.4 [facility] Comment on above: Performed By: #### 4 [id number] ####[facility] [place] [place] [facility] [address] [address] Wojciech Oneal M.D. [id number] Platelets (Bld) [#/Vol] 508 10*3/uL High 150-400 [facility] Comment on above: Performed By: #### 4 [id number] ####[facility] [place] [place] [facility] [address] [address] Wojciech Oneal M.D. [id number] RBC (Bld) [#/Vol] 2.55 10*6/uL Low 4.50-5.90 [facility] Comment on above: Performed By: #### 4 [id number] ####[facility] [place] [place] [facility] [address] [address] Wojciech Oneal M.D. [id number] WBC (Bld) [#/Vol] 7.24 10*3/uL Normal 4.50-11.00 [facility] Comment on above: Performed By: #### 4 [id number] ####[facility] [place] [place] [facility] [address] [id number] Wojciech Oneal M.D. [id number] MAGNESIUM LEVELon 02-10-2025 Magnesium [Mass/Vol] 1.9 mg/dL Normal 1.6-2.4 [facility] Comment on above: Performed By: #### 4 6109 ####[facility] [place] [place] [facility] [address] [address] Wojciech Oneal M.D. [id number] PHOSPHORUSon 02-10-2025 Phosphate [Mass/Vol] 2.6 mg/dL Normal 2.3-3.7 [facility] Comment on above: Performed By: #### 4 6299 ####[facility] [place] [place] [facility] [address] [address] Wojciech Oneal M.D. [id number] POTASSIUM LEVELon 02-10-2025 Potassium [Moles/Vol] 3.8 mmol/L Normal 3.5-5.1 [facility] Comment on above: Performed By: #### 4 6351 ####[facility] [place] [place] [facility] [address] [address] Wojciech Oneal M.D. [id number] TSH WITH REFLEX FREE T4on TSH Qn 2.27 m[IU]/L Normal 0.27-4.20 [facility] Comment on above: Performed By: #### 4 6612 ####[facility] [place] [place] [facility] [address] [id number] Wojciech Oneal M.D. [id number] TYPE AND SCREENon 02-10-2025 TYPE AND SCREEN ABORH: O Positive AB SCREEN: Negative EXPIRATION DATE: 02/13/2025 23:59 EST Normal [facility] Comment on above: Performed By: #### 4 6619 ####[facility] [place] [place] [facility] [address] [address] Radha Kelsey MD [id number] [facility] BASIC METABOLIC PANELon 01-13 Anion gap [Moles/Vol] 14 mmol/L Normal 10-20 [facility] Comment on above: Order Comment: [facility] has implemented the eGFR calculation approach that does not have a coefficient for race that conforms to the NKF-ASN Task Force Recommendations. Performed By: #### 4 6124 ####[facility] [place] [place] [facility] [address] [address] Wojciech Oneal M.D. [id number] Calcium [Mass/Vol] 7.2 mg/dL Low 8.4-10.2 [facility] Comment on above: Order Comment: [facility] has implemented the eGFR calculation approach that does not have a coefficient for race that conforms to the NKF-ASN Task Force Recommendations. Performed By: #### 4 6124 ####[facility] [place] [place] [facility] [address] [id number] Wojciech Oneal M.D. [id number] Chloride [Moles/Vol] 112 mmol/L High 98-108 [facility] Comment on above: Order Comment: [facility] has implemented the eGFR calculation approach that does not have a coefficient for race that conforms to the NKF-ASN Task Force Recommendations. Performed By: #### 4 6124 ####[facility] [place] [place] [facility] [address] [id number] Wojciech Oneal M.D. [id number] Creatinine [Mass/Vol] 0.79 mg/dL Low 0.80-1.30 [facility] Comment on above: Order Comment: [facility] has implemented the eGFR calculation approach that does not have a coefficient for race that conforms to the NKF-ASN Task Force Recommendations. Performed By: #### 4 6124 ####[facility] [place] [place] [facility] [address] [id number] Wojciech Oneal M.D. [id number] EGFR 95 mL/min/1.73 m2 Normal >=60 [facility] Comment on above: Order Comment: [facility] has implemented the eGFR calculation approach that does not have a coefficient for race that conforms to the NKF-ASN Task Force Recommendations. Result Comment: Chelsea mated GFR was calculated using the 2020 CKD-EPI creatinine equation. Performed By: #### 4 6124 ####[facility] [place] [place] [facility] [address] [id number] Wojciech Oneal M.D. [id number] Glucose [Mass/Vol] 98 mg/dL Normal 65-99 [facility] Comment on above: Order Comment: [facility] has implemented the eGFR calculation approach that does not have a coefficient for race that conforms to the NKF-ASN Task Force Recommendations. Performed By: #### 4 6124 ####[facility] [place] [place] [facility] [address] [address] Wojciech Oneal M.D. [id number] HCO3 (Bld) [Moles/Vol] 21 mmol/L Normal 21-32 [facility] Comment on above: Order Comment: [facility] has implemented the eGFR calculation approach that does not have a coefficient for race that conforms to the NKF-ASN Task Force Recommendations. Performed By: #### 4 6124 ####[facility] [place] [place] [facility] [address] [id number] Wojciech Oneal M.D. [id number] Potassium [Moles/Vol] 3.5 mmol/L Normal 3.5-5.1 [facility] Comment on above: Order Comment: [facility] has implemented the eGFR calculation approach that does not have a coefficient for race that conforms to the NKF-ASN Task Force Recommendations. Performed By: #### 4 6124 ####[facility] [place] [place] [facility] [address] [id number] Wojciech Oneal M.D. [id number] Sodium [Moles/Vol] 143 mmol/L Normal 135-145 [facility] Comment on above: Order Comment: [facility] has implemented the eGFR calculation approach that does not have a coefficient for race that conforms to the NKF-ASN Task Force Recommendations. Performed By: #### 4 6124 ####[facility] [place] [place] [facility] [address], [place] [address] Wojciech Oneal M.D. [id number] Urea nitrogen [Mass/Vol] 8 mg/dL Normal 8-25 [facility] Comment on above: Order Comment: [facility] has implemented the eGFR calculation approach that does not have a coefficient for race that conforms to the NKF-ASN Task Force Recommendations. Performed By: #### 4 6124 ####[facility] [place] [place] [facility] [address] [address] Wojciech Oneal M.D. [id number] Urea nitrogen/Creatinine [Mass ratio] 10.1 mg/mg Normal 10.0-20.0 [facility] Comment on above: Order Comment: [facility] has implemented the eGFR calculation approach that does not have a coefficient for race that conforms to the NKF-ASN Task Force Recommendations. Performed By: #### 4 6124 ####[facility] [place] [place] [facility] [address] [id number] Wojciech Oneal M.D. [id number] CBCon 02-09-2025 AUTO NRBC 0.0 % Normal [facility] Comment on above: Performed By: #### 4 [id number] ####[facility] [place] [place] [facility] [address] [id number] Wojciech Oneal M.D. [id number] AUTO NRBC ABS COUNT 0.00 K/mcL Normal 0.00-0.00 [facility] Comment on above: Performed By: #### 4 [id number] ####[facility] [place] [place] [facility] [address] [id number] Wojciech Oneal M.D. [id number] Erythrocyte distribution width (RBC) [Ratio] 15.2 % High 11.6-14.8 [facility] Comment on above: Performed By: #### 4 [id number] ####[facility] [place] [place] [facility] [address] [id number] Wojciech Oneal M.D. [id number] Hematocrit (Bld) [Volume fraction] 28.6 % Low 41.0-53.0 [facility] Comment on above: Performed By: #### 4 [id number] ####[facility] [place] [place] [facility] [address] [id number] Wojciech Oneal M.D. [id number] Hemoglobin (Bld) [Mass/Vol] 8.5 g/dL Low 13.5-17.5 [facility] Comment on above: Performed By: #### 4 [id number] ####[facility] [place] [place] [facility] [address] [id number] Wojciech Oneal M.D. [id number] MCH (RBC) [Entitic mass] 28.5 pg Normal 26.0-34.0 [facility] Comment on above: Performed By: #### 4 [id number] ####[facility] [place] [place] [facility] [address] [id number] Wojciech Oneal M.D. [id number] MCV (RBC) [Entitic vol] 96.0 fL Normal 80.0-100.0 [facility] Comment on above: Performed By: #### 4 [id number] ####[facility] [place] [place] [facility] [address] [address] Wojciech Oneal M.D. [id number] MEAN CORPUSCULAR HEMOGLOBIN CONC 29.7 g/dL Low 31.0-37.0 [facility] Comment on above: Performed By: #### 4 [id number] ####[facility] [place] [place] [facility] [address] [address] Wojciech Oneal M.D. [id number] Platelet mean volume (Bld) [Entitic vol] 8.7 fL Low 9.4-12.4 [facility] Comment on above: Performed By: #### 4 [id number] ####[facility] [place] [place] [facility] [address] [id number] Wojciech Oneal M.D. [id number] Platelets (Bld) [#/Vol] 527 10*3/uL High 150-400 [facility] Comment on above: Result Comment: Resu lts checked Performed By: #### 4 [id number] ####[facility] [place] [place] [facility] [address] [id number] Wojciech Oneal M.D. [id number] RBC (Bld) [#/Vol] 2.98 10*6/uL Low 4.50-5.90 [facility] Comment on above: Performed By: #### 4 [id number] ####[facility] [place] [place] [facility] [address] [address] Wojciech Oneal M.D. [id number] WBC (Bld) [#/Vol] 7.38 10*3/uL Normal 4.50-11.00 [facility] Comment on above: Performed By: #### 4 [id number] ####[facility] [place] [place] [facility] [address] [place], [place] [address] Wojciech Oneal M.D. [id number] MAGNESIUM LEVELon 02-09-2025 Magnesium [Mass/Vol] 2.2 mg/dL Normal 1.6-2.4 [facility] Comment on above: Performed By: #### 4 6109 ####[facility] [place] [place] [facility] [address] [id number] Wojciech Oneal M.D. [id number] Magnesium [Mass/Vol] 1.8 mg/dL Normal 1.6-2.4 [facility] Comment on above: Performed By: #### 4 6109 ####[facility] [place] [place] [facility] [address] [id number] Wojciech Oneal M.D. [id number] PHOSPHORUSon 02-09-2025 Phosphate [Mass/Vol] 2.4 mg/dL Normal 2.3-3.7 [facility] Comment on above: Performed By: #### 4 6299 ####[facility] [place] [place] [facility] [address] [place], [place] [address] Wojciech Oneal M.D. [id number] POTASSIUM LEVELon 02-09-2025 Potassium [Moles/Vol] 3.2 mmol/L Low 3.5-5.1 [facility] Comment on above: Performed By: #### 4 6351 ####[facility] [place] [place] [facility] [address] [place], [place] [address] Wojciech Oneal M.D. [id number] BASIC METABOLIC PANELon 01-13 Anion gap [Moles/Vol] 14 mmol/L Normal 10-20 [facility] Comment on above: Order Comment: [facility] has implemented the eGFR calculation approach that does not have a coefficient for race that conforms to the NKF-ASN Task Force Recommendations. Performed By: #### 4 6124 ####[facility] [place] [place] [facility] [address] [place], [place] [address] Wojciech Oneal M.D. [id number] Calcium [Mass/Vol] 7.2 mg/dL Low 8.4-10.2 [facility] Comment on above: Order Comment: [facility] has implemented the eGFR calculation approach that does not have a coefficient for race that conforms to the NKF-ASN Task Force Recommendations. Performed By: #### 4 6124 ####[facility] [place] [place] [facility] [address] [id number] Wojciech Oneal M.D. [id number] Chloride [Moles/Vol] 113 mmol/L High 98-108 [facility] Comment on above: Order Comment: [facility] has implemented the eGFR calculation approach that does not have a coefficient for race that conforms to the NKF-ASN Task Force Recommendations. Performed By: #### 4 6124 ####[facility] [place] [place] [facility] [address] [id number] Wojciech Oneal M.D. [id number] Creatinine [Mass/Vol] 0.85 mg/dL Normal 0.80-1.30 [facility] Comment on above: Order Comment: [facility] has implemented the eGFR calculation approach that does not have a coefficient for race that conforms to the NKF-ASN Task Force Recommendations. Performed By: #### 4 6124 ####[facility] [place] [place] [facility] [address] [id number] Wojciech Oneal M.D. [id number] EGFR 93 mL/min/1.73 m2 Normal >=60 [facility] Comment on above: Order Comment: [facility] has implemented the eGFR calculation approach that does not have a coefficient for race that conforms to the NKF-ASN Task Force Recommendations. Result Comment: Chelsea mated GFR was calculated using the 2020 CKD-EPI creatinine equation. Performed By: #### 4 6124 ####[facility] [place] [place] [facility] [address] [id number] Wojciech Oneal M.D. [id number] Glucose [Mass/Vol] 83 mg/dL Normal 65-99 [facility] Comment on above: Order Comment: [facility] has implemented the eGFR calculation approach that does not have a coefficient for race that conforms to the NKF-ASN Task Force Recommendations. Performed By: #### 4 6124 ####[facility] [place] [place] [facility] [address] [address] Wojciech Oneal M.D. [id number] HCO3 (Bld) [Moles/Vol] 22 mmol/L Normal 21-32 [facility] Comment on above: Order Comment: [facility] has implemented the eGFR calculation approach that does not have a coefficient for race that conforms to the NKF-ASN Task Force Recommendations. Performed By: #### 4 6124 ####[facility] [place] [place] [facility] [address] [address] Wojciech Oneal M.D. [id number] Potassium [Moles/Vol] 3.8 mmol/L Normal 3.5-5.1 [facility] Comment on above: Order Comment: [facility] has implemented the eGFR calculation approach that does not have a coefficient for race that conforms to the NKF-ASN Task Force Recommendations. Performed By: #### 4 6124 ####[facility] [place] [place] [facility] [address] [id number] Wojciech Oneal M.D. [id number] Sodium [Moles/Vol] 145 mmol/L Normal 135-145 [facility] Comment on above: Order Comment: [facility] has implemented the eGFR calculation approach that does not have a coefficient for race that conforms to the NKF-ASN Task Force Recommendations. Performed By: #### 4 6124 ####[facility] [place] [place] [facility] [address] [id number] Wojciech Oneal M.D. [id number] Urea nitrogen [Mass/Vol] 10 mg/dL Normal 8-25 [facility] Comment on above: Order Comment: [facility] has implemented the eGFR calculation approach that does not have a coefficient for race that conforms to the NKF-ASN Task Force Recommendations. Performed By: #### 4 6124 ####[facility] [place] [place] [facility] [address] [place], [place] [address] Wojciech Oneal M.D. [id number] Urea nitrogen/Creatinine [Mass ratio] 11.8 mg/mg Normal 10.0-20.0 [facility] Comment on above: Order Comment: [facility] has implemented the eGFR calculation approach that does not have a coefficient for race that conforms to the NKF-ASN Task Force Recommendations. Performed By: #### 4 6182 ####[facility] [place] [place] [facility] [address] [id number] Wojciech Oneal M.D. [id number] CBCon 02-08-2025 AUTO NRBC 0.0 % Normal [facility] Comment on above: Performed By: #### 4 [id number] ####[facility] [address] [address] Wojciech Oneal M.D. [id number] AUTO NRBC ABS COUNT 0.00 K/mcL Normal 0.00-0.00 [facility] Comment on above: Performed By: #### 4 [id number] ####[facility] [address] [address] Wojciech Oneal M.D. [id number] Erythrocyte distribution width (RBC) [Ratio] 14.9 % High 11.6-14.8 [facility] Comment on above: Performed By: #### 4 5218 ####[place] [address] [address] [address] Wojciech Oneal M.D. [id number] Hematocrit (Bld) [Volume fraction] 24.2 % Low 41.0-53.0 [facility] Comment on above: Performed By: #### 4 5218 ####[place] [address] [address] [address] Wojciech Oneal M.D. [id number] Hemoglobin (Bld) [Mass/Vol] 7.2 g/dL Low 13.5-17.5 [facility] Comment on above: Performed By: #### 4 [id number] ####[facility] [address] [address] Wojciech Oneal M.D. [id number] MCH (RBC) [Entitic mass] 28.9 pg Normal 26.0-34.0 [facility] Comment on above: Performed By: #### 4 [id number] ####[facility] [place] [place] [facility] [address] [address] Wojciech Oneal M.D. [id number] MCV (RBC) [Entitic vol] 97.2 fL Normal 80.0-100.0 [facility] Comment on above: Performed By: #### 4 [id number] ####[facility] [place] [place] [facility] [address] [address] Wojciech Oneal M.D. [id number] MEAN CORPUSCULAR HEMOGLOBIN CONC 29.8 g/dL Low 31.0-37.0 [facility] Comment on above: Performed By: #### 4 [id number] ####[facility] [place] [place] [facility] [address] [id number] Wojciech Oneal M.D. [id number] Platelet mean volume (Bld) [Entitic vol] 10.4 fL Normal 9.4-12.4 [facility] Comment on above: Performed By: #### 4 [id number] ####[facility] [place] [place] [facility] [address] [address] Wojciech Oneal M.D. [id number] Platelets (Bld) [#/Vol] 329 10*3/uL Normal 150-400 [facility] Comment on above: Performed By: #### 4 [id number] ####[facility] [place] [place] [facility] [address] [address] Wojciech Oneal M.D. [id number] RBC (Bld) [#/Vol] 2.49 10*6/uL Low 4.50-5.90 [facility] Comment on above: Performed By: #### 4 [id number] ####[facility] [place] [place] [facility] [address] [id number] Wojciech Oneal M.D. [id number] WBC (Bld) [#/Vol] 7.10 10*3/uL Normal 4.50-11.00 [facility] Comment on above: Performed By: #### 4 [id number] ####[facility] [place] [place] [facility] [address] [id number] Wojciech Oneal M.D. [id number] MAGNESIUM LEVELon 02-08-2025 Magnesium [Mass/Vol] 2.0 mg/dL Normal 1.6-2.4 [facility] Comment on above: Performed By: #### 4 6109 ####[facility] [place] [place] [facility] [address] [id number] Wojciech Oneal M.D. [id number] PHOSPHORUSon 02-08-2025 Phosphate [Mass/Vol] 2.6 mg/dL Normal 2.3-3.7 [facility] Comment on above: Performed By: #### 4 6299 ####[facility] [place] [place] [facility] [address], [place] [address] Wojciech Oneal M.D. [id number] BASIC METABOLIC PANELon 01-13 Anion gap [Moles/Vol] 14 mmol/L Normal 10-20 [facility] Comment on above: Order Comment: [facility] has implemented the eGFR calculation approach that does not have a coefficient for race that conforms to the NKF-ASN Task Force Recommendations. Performed By: #### 4 [id number] ####[facility] [place] [place] [facility] [address] [id number] Wojciech Oneal M.D. [id number] Calcium [Mass/Vol] 7.3 mg/dL Low 8.4-10.2 [facility] Comment on above: Order Comment: [facility] has implemented the eGFR calculation approach that does not have a coefficient for race that conforms to the NKF-ASN Task Force Recommendations. Performed By: #### 4 [id number] ####[facility] [place] [place] [facility] [address] [id number] Wojciech Oneal M.D. [id number] Chloride [Moles/Vol] 112 mmol/L High 98-108 [facility] Comment on above: Order Comment: [facility] [facility] has implemented the eGFR calculation approach that does not have a coefficient for race that conforms to the NKF-ASN Task Force Recommendations. Performed By: #### 4 [id number] ####[facility] [place] [address], [place] [address] Wojciech Oneal M.D. [id number] Creatinine [Mass/Vol] 0.94 mg/dL Normal 0.80-1.30 [facility] Comment on above: Order Comment: [facility] has implemented the eGFR calculation approach that does not have a coefficient for race that conforms to the NKF-ASN Task Force Recommendations. Performed By: #### 4 6124 ####[facility] [place] [place] [address] [id number] Wojciech Oneal M.D. [id number] EGFR 87 mL/min/1.73 m2 Normal >=60 [facility] Comment on above: Order Comment: [facility] has implemented the eGFR calculation approach that does not have a coefficient for race that conforms to the NKF-ASN Task Force Recommendations. Result Comment: Chelsea mated GFR was calculated using the 2020 CKD-EPI creatinine equation. Performed By: #### 4 6124 ####[facility] [place] [place] [address] [address] Wojciech Oneal M.D. [id number] Glucose [Mass/Vol] 97 mg/dL Normal 65-99 [facility] Comment on above: Order Comment: [facility] has implemented the eGFR calculation approach that does not have a coefficient for race that conforms to the NKF-ASN Task Force Recommendations. Performed By: #### 4 6124 ####[facility] [place] [place] [address] [address] Wojciech Oneal M.D. [id number] HCO3 (Bld) [Moles/Vol] 21 mmol/L Normal 21-32 [facility] Comment on above: Order Comment: [facility] has implemented the eGFR calculation approach that does not have a coefficient for race that conforms to the NKF-ASN Task Force Recommendations. Performed By: #### 4 6124 ####[facility] [place] [place] [address] [address] Wojciech Oneal M.D. [id number] Potassium [Moles/Vol] 3.5 mmol/L Normal 3.5-5.1 [facility] Comment on above: Order Comment: [facility] has implemented the eGFR calculation approach that does not have a coefficient for race that conforms to the NKF-ASN Task Force Recommendations. Performed By: #### 4 6124 ####[facility] [place] [place] [address] [address] Wojciech Oneal M.D. [id number] Sodium [Moles/Vol] 143 mmol/L Normal 135-145 [facility] Comment on above: Order Comment: [facility] has implemented the eGFR calculation approach that does not have a coefficient for race that conforms to the NKF-ASN Task Force Recommendations. Performed By: #### 4 6124 ####[facility] [place] [place] [address] [id number] Wojciech Oneal M.D. [id number] Urea nitrogen [Mass/Vol] 10 mg/dL Normal 8-25 [facility] Comment on above: Order Comment: [facility] has implemented the eGFR calculation approach that does not have a coefficient for race that conforms to the NKF-ASN Task Force Recommendations. Performed By: #### 4 6124 ####[facility] [place] [place] [address] [id number] Wojciech Oneal M.D. [id number] Urea nitrogen/Creatinine [Mass ratio] 10.6 mg/mg Normal 10.0-20.0 [facility] Comment on above: Order Comment: [facility] has implemented the eGFR calculation approach that does not have a coefficient for race that conforms to the NKF-ASN Task Force Recommendations. Performed By: #### 4 6124 ####[facility] [place] [place] [address] [id number] Wojciech Oneal M.D. [id number] CBCon 02-07-2025 AUTO NRBC 0.0 % Normal [facility] Comment on above: Performed By: #### 4 [id number] ####[facility] [place] [place] [address] [id number] Wojciech Oneal M.D. [id number] AUTO NRBC ABS COUNT 0.00 K/mcL Normal 0.00-0.00 [facility] Comment on above: Performed By: #### 4 [id number] ####[facility] [place] [address] [id number] Wojciech Oneal M.D. [id number] Erythrocyte distribution width (RBC) [Ratio] 15.1 % High 11.6-14.8 [facility] Comment on above: Performed By: #### 4 [id number] ####[facility] [place] [place] [address], [place] [address] Wjociech Oneal M.D. [id number] Hematocrit (Bld) [Volume fraction] 25.7 % Low 41.0-53.0 [facility] Comment on above: Performed By: #### 4 [id number] ####[facility] [place] [place] [address] [id number] Wojciech Oneal M.D. [id number] Hemoglobin (Bld) [Mass/Vol] 7.5 g/dL Low 13.5-17.5 [facility] Comment on above: Performed By: #### 4 [id number] ####[facility] [place] [place] [address] [id number] Wojciech Oneal M.D. [id number] MCH (RBC) [Entitic mass] 28.3 pg Normal 26.0-34.0 [facility] Comment on above: Performed By: #### 4 [id number] ####[facility] [place] [place] [address] [address] Wojciech Oneal M.D. [id number] MCV (RBC) [Entitic vol] 97.0 fL Normal 80.0-100.0 [facility] Comment on above: Performed By: #### 4 [id number] ####[facility] [place] [place] [address] [address] Wojciech Oneal M.D. [id number] MEAN CORPUSCULAR HEMOGLOBIN CONC 29.2 g/dL Low 31.0-37.0 [facility] Comment on above: Performed By: #### 4 [id number] ####[facility] [place] [place] [address] [address] Wojciech Oneal M.D. [id number] Platelet mean volume (Bld) [Entitic vol] 9.0 fL Low 9.4-12.4 [facility] Comment on above: Performed By: #### 4 [id number] ####[facility] [place] [place] [address] [address] Wojciech Oneal M.D. [id number] Platelets (Bld) [#/Vol] 382 10*3/uL Normal 150-400 [facility] Comment on above: Performed By: #### 4 [id number] ####[facility] [place] [place] [address] [id number] Wojciech Oneal M.D. [id number] RBC (Bld) [#/Vol] 2.65 10*6/uL Low 4.50-5.90 [facility] Comment on above: Performed By: #### 4 [id number] ####[facility] [place] [place] [address] [address] Wojciech Oneal M.D. [id number] WBC (Bld) [#/Vol] 7.01 10*3/uL Normal 4.50-11.00 [facility] Comment on above: Performed By: #### 4 [id number] ####[facility] [place] [place] [address], [place] [address] Wojciech Oneal M.D. [id number] MAGNESIUM LEVELon 02-07-2025 Magnesium [Mass/Vol] 1.7 mg/dL Normal 1.6-2.4 [facility] Comment on above: Performed By: #### 4 6109 ####[facility] [place] [place] [address] [id number] Wojciech Oneal M.D. [id number] PHOSPHORUSon 02-07-2025 Phosphate [Mass/Vol] 2.6 mg/dL Normal 2.3-3.7 [facility] Comment on above: Performed By: #### 4 6299 ####[facility] [place] [place] [address], [place] [address] Wojciech Oneal M.D. [id number] POTASSIUM LEVELon 02-07-2025 Potassium [Moles/Vol] 3.7 mmol/L Normal 3.5-5.1 [facility] Comment on above: Performed By: #### 4 6351 ####[facility] [place] [place] [address], [place] [address] Wojciech Oneal M.D. [id number] BASIC METABOLIC PANELon 01-13 Anion gap [Moles/Vol] 14 mmol/L Normal 10-20 [facility] Comment on above: Order Comment: [facility] has implemented the eGFR calculation approach that does not have a coefficient for race that conforms to the NKF-ASN Task Force Recommendations. Performed By: #### 4 6124 ####[facility] [place] [place] [address], [place] [address] Wojciech Oneal M.D. [id number] Calcium [Mass/Vol] 7.4 mg/dL Low 8.4-10.2 [facility] Comment on above: Order Comment: [facility] has implemented the eGFR calculation approach that does not have a coefficient for race that conforms to the NKF-ASN Task Force Recommendations. Performed By: #### 4 6124 ####[facility] [place] [place] [address] [id number] Wojciech Oneal M.D. [id number] Chloride [Moles/Vol] 114 mmol/L High 98-108 [facility] Comment on above: Order Comment: [facility] has implemented the eGFR calculation approach that does not have a coefficient for race that conforms to the NKF-ASN Task Force Recommendations. Performed By: #### 4 6124 ####[facility] [place] [place] [address] [id number] Wojciech Oneal M.D. [id number] Creatinine [Mass/Vol] 1.03 mg/dL Normal 0.80-1.30 [facility] Comment on above: Order Comment: [facility] has implemented the eGFR calculation approach that does not have a coefficient for race that conforms to the NKF-ASN Task Force Recommendations. Performed By: #### 4 6124 ####[facility] [place] [place] [address] [id number] Wojciech Oneal M.D. [id number] EGFR 78 mL/min/1.73 m2 Normal >=60 [facility] Comment on above: Order Comment: [facility] has implemented the eGFR calculation approach that does not have a coefficient for race that conforms to the NKF-ASN Task Force Recommendations. Result Comment: Chelsea mated GFR was calculated using the 2020 CKD-EPI creatinine equation. Performed By: #### 4 6124 ####[facility] [place] [place] [address] [id number] Wojciech Oneal M.D. [id number] Glucose [Mass/Vol] 91 mg/dL Normal 65-99 [facility] Comment on above: Order Comment: [facility] has implemented the eGFR calculation approach that does not have a coefficient for race that conforms to the NKF-ASN Task Force Recommendations. Performed By: #### 4 6124 ####[facility] [place] [place] [address] [id number] Wojciech Oneal M.D. [id number] HCO3 (Bld) [Moles/Vol] 21 mmol/L Normal 21-32 [facility] Comment on above: Order Comment: [facility] has implemented the eGFR calculation approach that does not have a coefficient for race that conforms to the NKF-ASN Task Force Recommendations. Performed By: #### 4 6124 ####[facility] [place] [place] [address], [place] [address] Wojciech Oneal M.D. [id number] Potassium [Moles/Vol] 3.6 mmol/L Normal 3.5-5.1 [facility] Comment on above: Order Comment: [facility] has implemented the eGFR calculation approach that does not have a coefficient for race that conforms to the NKF-ASN Task Force Recommendations. Performed By: #### 4 6124 ####[facility] [place] [place] [address], [place] [address] Wojciech Oneal M.D. [id number] Sodium [Moles/Vol] 145 mmol/L Normal 135-145 [facility] Comment on above: Order Comment: [facility] has implemented the eGFR calculation approach that does not have a coefficient for race that conforms to the NKF-ASN Task Force Recommendations. Performed By: #### 4 6124 ####[facility] [place] [place] [address] [id number] Wojciech Oneal M.D. [id number] Urea nitrogen [Mass/Vol] 10 mg/dL Normal 8-25 [facility] Comment on above: Order Comment: [facility] has implemented the eGFR calculation approach that does not have a coefficient for race that conforms to the NKF-ASN Task Force Recommendations. Performed By: #### 4 6124 ####[facility] [place] [place] [address], [place] [address] Wojciech Oneal M.D. [id number] Urea nitrogen/Creatinine [Mass ratio] 9.7 mg/mg Low 10.0-20.0 [facility] Comment on above: Order Comment: [facility] has implemented the eGFR calculation approach that does not have a coefficient for race that conforms to the NKF-ASN Task Force Recommendations. Performed By: #### 4 6124 ####[facility] [place] [place] [address], [place] [address] Wojciech Oneal M.D. [id number] CBCon 02-06-2025 AUTO NRBC 0.0 % Normal [facility] Comment on above: Performed By: #### 4 [id number] ####[facility] [place] [place] [address] [address] Wojciech Oneal M.D. [id number] AUTO NRBC ABS COUNT 0.00 K/mcL Normal 0.00-0.00 [facility] Comment on above: Performed By: #### 4 [id number] ####[facility] [place] [place] [address] [address] Wojciech Oneal M.D. [id number] Erythrocyte distribution width (RBC) [Ratio] 14.9 % High 11.6-14.8 [facility] Comment on above: Performed By: #### 4 [id number] ####[facility] [place] [place] [address] [address] Wojciech Oneal M.D. [id number] Hematocrit (Bld) [Volume fraction] 27.1 % Low 41.0-53.0 [facility] Comment on above: Performed By: #### 4 [id number] ####[facility] [place] [place] [address] [address] Wojciech Oneal M.D. [id number] Hemoglobin (Bld) [Mass/Vol] 8.0 g/dL Low 13.5-17.5 [facility] Comment on above: Performed By: #### 4 [id number] ####[facility] [place] [place] [facility] [address] [address] Wojciech Oneal M.D. [id number] MCH (RBC) [Entitic mass] 28.9 pg Normal 26.0-34.0 [facility] Comment on above: Performed By: #### 4 [id number] ####[facility] [place] [place] [facility] [address] [address] Wojciech Oneal M.D. [id number] MCV (RBC) [Entitic vol] 97.8 fL Normal 80.0-100.0 [facility] Comment on above: Performed By: #### 4 [id number] ####[facility] [place] [place] [address] [address] Wojciech Oneal M.D. [id number] MEAN CORPUSCULAR HEMOGLOBIN CONC 29.5 g/dL Low 31.0-37.0 [facility] Comment on above: Performed By: #### 4 [id number] ####[facility] [place] [place] [address], [place] [address] Wojciech Oneal M.D. [id number] Platelet mean volume (Bld) [Entitic vol] 9.1 fL Low 9.4-12.4 [facility] Comment on above: Performed By: #### 4 [id number] ####[facility] [place] [place] [address], [place] [address] Wojciech Oneal M.D. [id number] Platelets (Bld) [#/Vol] 404 10*3/uL High 150-400 [facility] Comment on above: Performed By: #### 4 [id number] ####[facility] [place] [place] [address], [place] [address] Wojciech Oneal M.D. [id number] RBC (Bld) [#/Vol] 2.77 10*6/uL Low 4.50-5.90 [facility] Comment on above: Performed By: #### 4 [id number] ####[facility] [place] [place] [address], [place] [address] Wojciech Oneal M.D. [id number] WBC (Bld) [#/Vol] 7.93 10*3/uL Normal 4.50-11.00 [facility] Comment on above: Performed By: #### 4 5218 ####[facility] [place] [place] [address], [place] [address] Wojciech Oneal M.D. [id number] CBC W/Diff, Automatedon - PATH REV Reviewed Normal [facility] Comment on above: Result Comment: SEE REPORT IN PATIENT'S EMR AMENDED REPORT 02/06/25 1126 PATH REV previously reported as: September Performed By: #### L 509.7001, L100.0100, L503.6005, L503.7505, L501.3620, L500.2500, L501.5200, L500.3400 #### [facility] [address] [place], [address] MAGNESIUM LEVELon 02-06-2025 Magnesium [Mass/Vol] 1.9 mg/dL Normal 1.6-2.4 [facility] Comment on above: Performed By: #### 4 6109 ####[facility] [place] [place] [facility] [address], [place] [address] Wojciech Oneal M.D. [id number] PHOSPHORUSon 02-06-2025 Phosphate [Mass/Vol] 2.5 mg/dL Normal 2.3-3.7 [facility] Comment on above: Performed By: #### 4 6299 ####[facility] [place] [place] [address] [id number] Wojciech Oneal M.D. [id number] BASIC METABOLIC PANELon 01-13 Anion gap [Moles/Vol] 13 mmol/L Normal 10-20 [facility] Comment on above: Order Comment: [facility] has implemented the eGFR calculation approach that does not have a coefficient for race that conforms to the NKF-ASN Task Force Recommendations. Performed By: #### 4 6124 ####[facility] [place] [place] [address], [place] [address] Wojciech Oneal M.D. [id number] Calcium [Mass/Vol] 7.2 mg/dL Low 8.4-10.2 [facility] Comment on above: Order Comment: [facility] has implemented the eGFR calculation approach that does not have a coefficient for race that conforms to the NKF-ASN Task Force Recommendations. Performed By: #### 4 6124 ####[facility] [place] [place] [address], [place] [address] Wojciech Oneal M.D. [id number] Chloride [Moles/Vol] 114 mmol/L High 98-108 [facility] Comment on above: Order Comment: [facility] has implemented the eGFR calculation approach that does not have a coefficient for race that conforms to the NKF-ASN Task Force Recommendations. Performed By: #### 4 6124 ####[facility] [place] [place] [address], [place] [address] Wojciech Oneal M.D. [id number] Creatinine [Mass/Vol] 1.05 mg/dL Normal 0.80-1.30 [facility] Comment on above: Order Comment: [facility] has implemented the eGFR calculation approach that does not have a coefficient for race that conforms to the NKF-ASN Task Force Recommendations. Performed By: #### 4 6124 ####[facility] [place] [place] [address], [place] [address] Wojciech Oneal M.D. [id number] EGFR 76 mL/min/1.73 m2 Normal >=60 [facility] Comment on above: Order Comment: [facility] has implemented the eGFR calculation approach that does not have a coefficient for race that conforms to the NKF-ASN Task Force Recommendations. Result Comment: Chelsea mated GFR was calculated using the 2020 CKD-EPI creatinine equation. Performed By: #### 4 6124 ####[facility] [place] [place] [address] [id number] Wojciech Oneal M.D. [id number] Glucose [Mass/Vol] 105 mg/dL High 65-99 [facility] Comment on above: Order Comment: [facility] has implemented the eGFR calculation approach that does not have a coefficient for race that conforms to the NKF-ASN Task Force Recommendations. Performed By: #### 4 6124 ####[facility] [place] [place] [address] [id number] Wojciech Oneal M.D. [id number] HCO3 (Bld) [Moles/Vol] 21 mmol/L Normal 21-32 [facility] Comment on above: Order Comment: [facility] has implemented the eGFR calculation approach that does not have a coefficient for race that conforms to the NKF-ASN Task Force Recommendations. Performed By: #### 4 6124 ####[facility] [place] [place] [address] [address] Wojciech Oneal M.D. [id number] Potassium [Moles/Vol] 3.7 mmol/L Normal 3.5-5.1 [facility] Comment on above: Order Comment: [facility] has implemented the eGFR calculation approach that does not have a coefficient for race that conforms to the NKF-ASN Task Force Recommendations. Performed By: #### 4 6124 ####[facility] [place] [place] [address] [id number] Wojciech Oneal M.D. [id number] Sodium [Moles/Vol] 144 mmol/L Normal 135-145 [facility] Comment on above: Order Comment: [facility] has implemented the eGFR calculation approach that does not have a coefficient for race that conforms to the NKF-ASN Task Force Recommendations. Performed By: #### 4 6124 ####[facility] [place] [place] [address] [id number] Wojciech Oneal M.D. [id number] Urea nitrogen [Mass/Vol] 11 mg/dL Normal 8-25 [facility] Comment on above: Order Comment: [facility] has implemented the eGFR calculation approach that does not have a coefficient for race that conforms to the NKF-ASN Task Force Recommendations. Performed By: #### 4 6124 ####[facility] [place] [place] [address] [address] Wojciech Oneal M.D. [id number] Urea nitrogen/Creatinine [Mass ratio] 10.5 mg/mg Normal 10.0-20.0 [facility] Comment on above: Order Comment: [facility] has implemented the eGFR calculation approach that does not have a coefficient for race that conforms to the NKF-ASN Task Force Recommendations. Performed By: #### 4 6124 ####[facility] [place] [place] [address] [id number] Wojciech Oneal M.D. [id number] CBCon 02-05-2025 AUTO NRBC 0.0 % Normal [facility] Comment on above: Performed By: #### 4 [id number] ####[facility] [place] [place] [address] [id number] Wojciech Oneal M.D. [id number] AUTO NRBC ABS COUNT 0.00 K/mcL Normal 0.00-0.00 [facility] Comment on above: Performed By: #### 4 [id number] ####[facility] [place] [place] [address] [id number] Wojciech Oneal M.D. [id number] Erythrocyte distribution width (RBC) [Ratio] 15.0 % High 11.6-14.8 [facility] Comment on above: Performed By: #### 4 [id number] ####[facility] [place] [place] [address] [id number] Wojciech Oneal M.D. [id number] Hematocrit (Bld) [Volume fraction] 23.9 % Low 41.0-53.0 [facility] Comment on above: Performed By: #### 4 [id number] ####[facility] [place] [place] [address] [address] Wojciech Oneal M.D. [id number] Hemoglobin (Bld) [Mass/Vol] 7.3 g/dL Low 13.5-17.5 [facility] Comment on above: Performed By: #### 4 [id number] ####[facility] [place] [place] [address] [address] Wojciech Oneal M.D. [id number] MCH (RBC) [Entitic mass] 29.4 pg Normal 26.0-34.0 [facility] Comment on above: Performed By: #### 4 [id number] ####[facility] [place] [place] [address] [address] Wojciech Oneal M.D. [id number] MCV (RBC) [Entitic vol] 96.4 fL Normal 80.0-100.0 [facility] Comment on above: Performed By: #### 4 [id number] ####[facility] [place] [place] [address] [address] Wojciech Oneal M.D. [id number] MEAN CORPUSCULAR HEMOGLOBIN CONC 30.5 g/dL Low 31.0-37.0 [facility] Comment on above: Performed By: #### 4 [id number] ####[facility] [place] [place] [address] [address] Wojciech Oneal M.D. [id number] Platelet mean volume (Bld) [Entitic vol] 9.1 fL Low 9.4-12.4 [facility] Comment on above: Performed By: #### 4 [id number] ####[facility] [place] [place] [address] [address] Wojciech Oneal M.D. [id number] Platelets (Bld) [#/Vol] 367 10*3/uL Normal 150-400 [facility] Comment on above: Performed By: #### 4 [id number] ####[facility] [place] [place] [address] [address] Wojciech Oneal M.D. [id number] RBC (Bld) [#/Vol] 2.48 10*6/uL Low 4.50-5.90 [facility] Comment on above: Performed By: #### 4 [id number] ####[facility] [place] [place] [address] [place], [place] [address] Wojciech Oneal M.D. [id number] WBC (Bld) [#/Vol] 7.51 10*3/uL Normal 4.50-11.00 [facility] Comment on above: Performed By: #### 4 [id number] ####[facility] [place] [place] [facility] [address], [place] [address] Wojciech Oneal M.D. [id number] MAGNESIUM LEVELon 02-05-2025 Magnesium [Mass/Vol] 2.0 mg/dL Normal 1.6-2.4 [facility] Comment on above: Performed By: #### 4 6109 ####[facility] [place] [place] [facility] [address] [place], [place] [address] Wojciech Oneal M.D. [id number] PHOSPHORUSon 02-05-2025 Phosphate [Mass/Vol] 2.9 mg/dL Normal 2.3-3.7 [facility] Comment on above: Performed By: #### 4 6299 ####[facility] [place] [place] [facility] [address] [place], [place] [address] Wojciech Oneal M.D. [id number] POTASSIUM LEVELon 02-05-2025 Potassium [Moles/Vol] 3.8 mmol/L Normal 3.5-5.1 [facility] Comment on above: Performed By: #### 4 6351 ####[facility] [place] [place] [facility] [address] [place], [place] [address] Wojciech Oneal M.D. [id number] Potassium [Moles/Vol] 3.7 mmol/L Normal 3.5-5.1 [facility] Comment on above: Performed By: #### 4 6351 ####[facility] [place] [place] [facility] [address] [place], [place] [address] Wojciech Oneal M.D. [id number] BASIC METABOLIC PANELon 01-13 Anion gap [Moles/Vol] 11 mmol/L Normal 10-20 [facility] Comment on above: Order Comment: [facility] has implemented the eGFR calculation approach that does not have a coefficient for race that conforms to the NKF-ASN Task Force Recommendations. Performed By: #### 4 6124 ####[facility] [place] [place] [facility] [address] [place] [id number] Wojciech Oneal M.D. [id number] Calcium [Mass/Vol] 7.2 mg/dL Low 8.4-10.2 [facility] Comment on above: Order Comment: [facility] has implemented the eGFR calculation approach that does not have a coefficient for race that conforms to the NKF-ASN Task Force Recommendations. Performed By: #### 4 6124 ####[facility] [place] [place] [facility] [address] [place] [id number] Wojciech Oneal M.D. [id number] Chloride [Moles/Vol] 116 mmol/L High 98-108 [facility] Comment on above: Order Comment: [facility] has implemented the eGFR calculation approach that does not have a coefficient for race that conforms to the NKF-ASN Task Force Recommendations. Performed By: #### 4 6124 ####[facility] [place] [place] [facility] [address] [place] [address] Wojciech Oneal M.D. [id number] Creatinine [Mass/Vol] 0.98 mg/dL Normal 0.80-1.30 [facility] Comment on above: Order Comment: [facility] has implemented the eGFR calculation approach that does not have a coefficient for race that conforms to the NKF-ASN Task Force Recommendations. Performed By: #### 4 6124 ####[facility] [place] [place] [facility] [address] [place] [id number] Wojciech Oneal M.D. [id number] EGFR 82 mL/min/1.73 m2 Normal >=60 [facility] Comment on above: Order Comment: [facility] has implemented the eGFR calculation approach that does not have a coefficient for race that conforms to the NKF-ASN Task Force Recommendations. Result Comment: Chelsea mated GFR was calculated using the 2020 CKD-EPI creatinine equation. Performed By: #### 4 6124 ####[facility] [place] [place] [facility] [address] [place] [id number] Wojciech Oneal M.D. [id number] Glucose [Mass/Vol] 98 mg/dL Normal 65-99 [facility] Comment on above: Order Comment: [facility] has implemented the eGFR calculation approach that does not have a coefficient for race that conforms to the NKF-ASN Task Force Recommendations. Performed By: #### 4 6124 ####[facility] [place] [place] [address] [place] [id number] Wojciech Oneal M.D. [id number] HCO3 (Bld) [Moles/Vol] 21 mmol/L Normal 21-32 [facility] Comment on above: Order Comment: [facility] has implemented the eGFR calculation approach that does not have a coefficient for race that conforms to the NKF-ASN Task Force Recommendations. Performed By: #### 4 6124 ####[facility] [place] [place] [facility] [address] [place] [id number] Wojciech Oneal M.D. [id number] Potassium [Moles/Vol] 3.8 mmol/L Normal 3.5-5.1 [facility] Comment on above: Order Comment: [facility] has implemented the eGFR calculation approach that does not have a coefficient for race that conforms to the NKF-ASN Task Force Recommendations. Performed By: #### 4 6124 ####[facility] [place] [place] [facility] [address] [place] [id number] Wojciech Oneal M.D. [id number] Sodium [Moles/Vol] 144 mmol/L Normal 135-145 [facility] Comment on above: Order Comment: [facility] has implemented the eGFR calculation approach that does not have a coefficient for race that conforms to the NKF-ASN Task Force Recommendations. Performed By: #### 4 6124 ####[facility] [place] [place] [facility] [address] [place] [id number] Wojciech Oneal M.D. [id number] Urea nitrogen [Mass/Vol] 11 mg/dL Normal 8-25 [facility] Comment on above: Order Comment: [facility] has implemented the eGFR calculation approach that does not have a coefficient for race that conforms to the NKF-ASN Task Force Recommendations. Performed By: #### 4 6124 ####[facility] [place] [place] [facility] [address] [place] [address] Wojciech Oneal M.D. [id number] Urea nitrogen/Creatinine [Mass ratio] 11.2 mg/mg Normal 10.0-20.0 [facility] Comment on above: Order Comment: [facility] has implemented the eGFR calculation approach that does not have a coefficient for race that conforms to the NKF-ASN Task Force Recommendations. Performed By: #### 4 6124 ####[facility] [place] [place] [facility] [address] [place] [address] Wojciech Oneal M.D. [id number] CBCon 02-04-2025 AUTO NRBC 0.0 % Normal [facility] Comment on above: Performed By: #### 4 [id number] ####[facility] [place] [place] [facility] [address] [place] [address] Wojciech Oneal M.D. [id number] AUTO NRBC ABS COUNT 0.00 K/mcL Normal 0.00-0.00 [facility] Comment on above: Performed By: #### 4 [id number] ####[facility] [place] [place] [facility] [address] [place] [address] Wojciech Oneal M.D. [id number] Erythrocyte distribution width (RBC) [Ratio] 15.1 % High 11.6-14.8 [facility] Comment on above: Performed By: #### 4 [id number] ####[facility] [place] [place] [facility] [address] [place] [id number] Wojciech Oneal M.D. [id number] Hematocrit (Bld) [Volume fraction] 23.2 % Low 41.0-53.0 [facility] Comment on above: Performed By: #### 4 [id number] ####[facility] [place] [place] [facility] [address] [place] [address] Wojciech Oneal M.D. [id number] Hemoglobin (Bld) [Mass/Vol] 7.1 g/dL Low 13.5-17.5 [facility] Comment on above: Performed By: #### 4 [id number] ####[facility] [place] [place] [address] [place] [address] Wojciech Oneal M.D. [id number] MCH (RBC) [Entitic mass] 29.2 pg Normal 26.0-34.0 [facility] Comment on above: Performed By: #### 4 5218 ####[facility] [address], [place] [address] Wojciech Oneal M.D. [id number] MCV (RBC) [Entitic vol] 95.5 fL Normal 80.0-100.0 [facility] Comment on above: Performed By: #### 4 [id number] ####[facility] [place] [place] [address] [place] [id number] Wojciech Oneal M.D. [id number] MEAN CORPUSCULAR HEMOGLOBIN CONC 30.6 g/dL Low 31.0-37.0 [facility] Comment on above: Performed By: #### 4 [id number] ####[facility] [place] [place] [address] [place] [id number] Wojciech Oneal M.D. [id number] Platelet mean volume (Bld) [Entitic vol] 8.6 fL Low 9.4-12.4 [facility] Comment on above: Performed By: #### 4 [id number] ####[facility] [place] [place] [facility] [address] [place] [id number] Wojciech Oneal M.D. [id number] Platelets (Bld) [#/Vol] 317 10*3/uL Normal 150-400 [facility] Comment on above: Performed By: #### 4 [id number] ####[facility] [place] [place] [facility] [address] [place] [id number] Wojciech Oneal M.D. [id number] RBC (Bld) [#/Vol] 2.43 10*6/uL Low 4.50-5.90 [facility] Comment on above: Performed By: #### 4 [id number] ####[facility] [place] [place] [facility] [address] [place] [id number] Wojciech Oneal M.D. [id number] WBC (Bld) [#/Vol] 8.26 10*3/uL Normal 4.50-11.00 [facility] Comment on above: Performed By: #### 4 [id number] ####[facility] [place] [place] [facility] [address] [place] [id number] Wojciech Oneal M.D. [id number] MAGNESIUM LEVELon 02-04-2025 Magnesium [Mass/Vol] 1.9 mg/dL Normal 1.6-2.4 [facility] Comment on above: Performed By: #### 4 6109 ####[facility] [place] [place] [address] [place], [place] [address] Wojciech Oneal M.D. [id number] OP NOTEon 02-04-2025 OP NOTE Normal [facility] PHOSPHORUSon 02-04-2025 Phosphate [Mass/Vol] 2.4 mg/dL Normal 2.3-3.7 [facility] Comment on above: Performed By: #### 4 6299 ####[facility] [place] [place] [facility] [address] [place] [id number] Wojciech Oneal M.D. [id number] TYPE AND SCREENon 02-04-2025 TYPE AND SCREEN ABORH: O Positive AB SCREEN: Negative EXPIRATION DATE: 02/07/2025 23:59 EST [facility] Comment on above: Performed By: #### 4 6619 ####[facility] [place] [place] [facility] [address] [place] [address] Radha Kelsey MD [id number] [facility] BASIC METABOLIC PANELon 01-13 Anion gap [Moles/Vol] 16 mmol/L Normal 10-20 [facility] Comment on above: Order Comment: [facility] has implemented the eGFR calculation approach that does not have a coefficient for race that conforms to the NKF-ASN Task Force Recommendations. Performed By: #### 4 6124 ####[facility] [place] [place] [address] [place], [place] [address] Wojciech Oneal M.D. [id number] Calcium [Mass/Vol] 7.1 mg/dL Low 8.4-10.2 [facility] Comment on above: Order Comment: [facility] has implemented the eGFR calculation approach that does not have a coefficient for race that conforms to the NKF-ASN Task Force Recommendations. Performed By: #### 4 6124 ####[facility] [place] [place] [facility] [address] [id number] Wojciech Oneal M.D. [id number] Chloride [Moles/Vol] 114 mmol/L High 98-108 [facility] Comment on above: Order Comment: [facility] has implemented the eGFR calculation approach that does not have a coefficient for race that conforms to the NKF-ASN Task Force Recommendations. Performed By: #### 4 6124 ####[facility] [place] [place] [facility] [address] [place], [place] [address] Wojciech Oneal M.D. [id number] Creatinine [Mass/Vol] 0.94 mg/dL Normal 0.80-1.30 [facility] Comment on above: Order Comment: [facility] has implemented the eGFR calculation approach that does not have a coefficient for race that conforms to the NKF-ASN Task Force Recommendations. Performed By: #### 4 6124 ####[facility] [place] [place] [facility] [address] [place], [place] [address] Wojciech Oneal M.D. [id number] EGFR 87 mL/min/1.73 m2 Normal >=60 [facility] Comment on above: Order Comment: [facility] has implemented the eGFR calculation approach that does not have a coefficient for race that conforms to the NKF-ASN Task Force Recommendations. Result Comment: Chelsea mated GFR was calculated using the 2020 CKD-EPI creatinine equation. Performed By: #### 4 6124 ####[facility] [place] [place] [facility] [address] [id number] Wojciech Oneal M.D. [id number] Glucose [Mass/Vol] 90 mg/dL Normal 65-99 [facility] Comment on above: Order Comment: [facility] has implemented the eGFR calculation approach that does not have a coefficient for race that conforms to the NKF-ASN Task Force Recommendations. Performed By: #### 4 6124 ####[facility] [place] [place] [address] [id number] Wojciech Oneal M.D. [id number] HCO3 (Bld) [Moles/Vol] 19 mmol/L Low 21-32 [facility] Comment on above: Order Comment: [facility] has implemented the eGFR calculation approach that does not have a coefficient for race that conforms to the NKF-ASN Task Force Recommendations. Performed By: #### 4 6124 ####[facility] [place] [place] [address] [place], [place] [address] Wojciech Oneal M.D. [id number] Potassium [Moles/Vol] 3.7 mmol/L Normal 3.5-5.1 [facility] Comment on above: Order Comment: [facility] has implemented the eGFR calculation approach that does not have a coefficient for race that conforms to the NKF-ASN Task Force Recommendations. Performed By: #### 4 6124 ####[facility] [place] [place] [address] [id number] Wojciech Oneal M.D. [id number] Sodium [Moles/Vol] 145 mmol/L Normal 135-145 [facility] Comment on above: Order Comment: [facility] has implemented the eGFR calculation approach that does not have a coefficient for race that conforms to the NKF-ASN Task Force Recommendations. Performed By: #### 4 6124 ####[facility] [place] [place] [facility] [address] [id number] Wojciech Oneal M.D. [id number] Urea nitrogen [Mass/Vol] 11 mg/dL Normal 8-25 [facility] Comment on above: Order Comment: [facility] has implemented the eGFR calculation approach that does not have a coefficient for race that conforms to the NKF-ASN Task Force Recommendations. Performed By: #### 4 6124 ####[facility] [place] [place] [facility] [address] [id number] Wojciech Oneal M.D. [id number] Urea nitrogen/Creatinine [Mass ratio] 11.7 mg/mg Normal 10.0-20.0 [facility] Comment on above: Order Comment: [facility] has implemented the eGFR calculation approach that does not have a coefficient for race that conforms to the NKF-ASN Task Force Recommendations. Performed By: #### 4 6124 ####[facility] [place] [place] [address], [place] [address] Wojciech Oneal M.D. [id number] CALCIUM, IONIZEDon CALCIUM IONIZED 4.5 mg/dL Normal 4.5-5.3 [facility] Comment on above: Performed By: #### 4 5190 ####[facility] [place] [place] [address], [place] [address] Wojciech Oneal M.D. [id number] CBCon 02-03-2025 AUTO NRBC 0.0 % Normal [facility] Comment on above: Performed By: #### 4 [id number] ####[facility] [place] [place] [address] [address] Wojciech Oneal M.D. [id number] AUTO NRBC ABS COUNT 0.00 K/mcL Normal 0.00-0.00 [facility] Comment on above: Performed By: #### 4 [id number] ####[facility] [place] [place] [address] [address] Wojciech Oneal M.D. [id number] Erythrocyte distribution width (RBC) [Ratio] 15.2 % High 11.6-14.8 [facility] Comment on above: Performed By: #### 4 [id number] ####[facility] [place] [place] [address] [address] Wojciech Oneal M.D. [id number] Hematocrit (Bld) [Volume fraction] 24.2 % Low 41.0-53.0 [facility] Comment on above: Performed By: #### 4 [id number] ####[facility] [place] [place] [address] [address] Wojciech Oneal M.D. [id number] Hemoglobin (Bld) [Mass/Vol] 7.4 g/dL Low 13.5-17.5 [facility] Comment on above: Performed By: #### 4 [id number] ####[facility] [place] [place] [address] [address] Wojciech Oneal M.D. [id number] MCH (RBC) [Entitic mass] 29.2 pg Normal 26.0-34.0 [facility] Comment on above: Performed By: #### 4 [id number] ####[facility] [place] [place] [address] [address] Wojciech Oneal M.D. [id number] MCV (RBC) [Entitic vol] 95.7 fL Normal 80.0-100.0 [facility] Comment on above: Performed By: #### 4 [id number] ####[facility] [place] [place] [facility] [address] [address] Wojciech Oneal M.D. [id number] MEAN CORPUSCULAR HEMOGLOBIN CONC 30.6 g/dL Low 31.0-37.0 [facility] Comment on above: Performed By: #### 4 [id number] ####[facility] [place] [place] [facility] [address] [place], [place] [address] Wojciech Oneal M.D. [id number] Platelet mean volume (Bld) [Entitic vol] 9.2 fL Low 9.4-12.4 [facility] Comment on above: Performed By: #### 4 [id number] ####[facility] [place] [place] [facility] [address], [place] [address] Wojciech Oneal M.D. [id number] Platelets (Bld) [#/Vol] 342 10*3/uL Normal 150-400 [facility] Comment on above: Performed By: #### 4 [id number] ####[facility] [place] [place] [facility] [address], [place] [address] Wojciech Oneal M.D. [id number] RBC (Bld) [#/Vol] 2.53 10*6/uL Low 4.50-5.90 [facility] Comment on above: Performed By: #### 4 [id number] ####[facility] [place] [place] [facility] [address] [id number] Wojciech Oneal M.D. [id number] WBC (Bld) [#/Vol] 10.83 10*3/uL Normal 4.50-11.00 [facility] Comment on above: Performed By: #### 4 [id number] ####[facility] [place] [place] [address] [id number] Wojciech Oneal M.D. [id number] MAGNESIUM LEVELon 02-03-2025 Magnesium [Mass/Vol] 2.1 mg/dL Normal 1.6-2.4 [facility] Comment on above: Performed By: #### 4 6109 ####[facility] [place] [place] [facility] [address] [id number] Wojciech Oneal M.D. [id number] PHOSPHORUSon 02-03-2025 Phosphate [Mass/Vol] 2.4 mg/dL Normal 2.3-3.7 [facility] Comment on above: Performed By: #### 4 6299 ####[facility] [place] [place] [facility] [address] [id number] Wojciech Oneal M.D. [id number] POTASSIUM LEVELon 02-03-2025 Potassium [Moles/Vol] 3.6 mmol/L Normal 3.5-5.1 [facility] Comment on above: Performed By: #### 4 6351 ####[facility] [place] [place] [facility] [address], [place] [address] Wojciech Oneal M.D. [id number] Potassium [Moles/Vol] 3.7 mmol/L Normal 3.5-5.1 [facility] Comment on above: Performed By: #### 4 6351 ####[facility] [place] [place] [facility] [address], [place] [address] Wojciech Oneal M.D. [id number] Potassium [Moles/Vol] 3.6 mmol/L Normal 3.5-5.1 [facility] Comment on above: Performed By: #### 4 6351 ####[facility] [place] [place] [address], [place] [address] Wojciech Oneal M.D. [id number] XR ABDOMEN /KUB/FLAT PLATE/1 VIEWon 02-03-2025 XR ABDOMEN /KUB/FLAT PLATE/1 VIEW Normal [facility] Comment on above: Order Comment: Injur y/Trauma or Illness?:Injury/TraumaHow long have you had these symptoms (acute/chronic)?:AcuteReason for exam?:Abdominal distention, vomitingHistory of cancer?:unkSurgeries, chemotherapy, or radiation?:unkType of Exam?:Subsequent/Follow-upMechanism of injury?:Abdominal distention, vomiting BASIC METABOLIC PANELon 01-13 Anion gap [Moles/Vol] 12 mmol/L Normal 10-20 [facility] Comment on above: Order Comment: [facility] has implemented the eGFR calculation approach that does not have a coefficient for race that conforms to the NKF-ASN Task Force Recommendations. Performed By: #### 4 6124 ####[facility] [place] [place] [address] [place], [place] [address] Wojciech Oneal M.D. [id number] Calcium [Mass/Vol] 6.9 mg/dL Low 8.4-10.2 [facility] Comment on above: Order Comment: [facility] has implemented the eGFR calculation approach that does not have a coefficient for race that conforms to the NKF-ASN Task Force Recommendations. Performed By: #### 4 6124 ####[facility] [place] [place] [address] [id number] Wojciech Oneal M.D. [id number] Chloride [Moles/Vol] 113 mmol/L High 98-108 [facility] Comment on above: Order Comment: [facility] has implemented the eGFR calculation approach that does not have a coefficient for race that conforms to the NKF-ASN Task Force Recommendations. Performed By: #### 4 6124 ####[facility] [place] [place] [address] [address] Wojciech Oneal M.D. [id number] Creatinine [Mass/Vol] 0.97 mg/dL Normal 0.80-1.30 [facility] Comment on above: Order Comment: [facility] has implemented the eGFR calculation approach that does not have a coefficient for race that conforms to the NKF-ASN Task Force Recommendations. Performed By: #### 4 6124 ####[facility] [place] [place] [address] [id number] Wojciech Oneal M.D. [id number] EGFR 83 mL/min/1.73 m2 Normal >=60 [facility] Comment on above: Order Comment: [facility] has implemented the eGFR calculation approach that does not have a coefficient for race that conforms to the NKF-ASN Task Force Recommendations. Result Comment: Chelsea mated GFR was calculated using the 2020 CKD-EPI creatinine equation. Performed By: #### 4 [id number] ####[facility] [place] [place] [address] [id number] Wojciech Oneal M.D. [id number] Glucose [Mass/Vol] 108 mg/dL High 65-99 [facility] Comment on above: Order Comment: [facility] has implemented the eGFR calculation approach that does not have a coefficient for race that conforms to the NKF-ASN Task Force Recommendations. Performed By: #### 4 6124 ####[facility] [place] [address] [id number] Wojciech Oneal M.D. [id number] HCO3 (Bld) [Moles/Vol] 23 mmol/L Normal 21-32 [facility] Comment on above: Order Comment: [facility] has implemented the eGFR calculation approach that does not have a coefficient for race that conforms to the NKF-ASN Task Force Recommendations. Performed By: #### 4 [id number] ####[facility] [place] [place] [address] [id number] Wojciech Oneal M.D. [id number] Potassium [Moles/Vol] 3.2 mmol/L Low 3.5-5.1 [facility] Comment on above: Order Comment: [facility] has implemented the eGFR calculation approach that does not have a coefficient for race that conforms to the NKF-ASN Task Force Recommendations. Performed By: #### 4 [id number] ####[facility] [place] [address] [id number] Wojciech Oneal M.D. [id number] Sodium [Moles/Vol] 145 mmol/L Normal 135-145 [facility] Comment on above: Order Comment: [facility] has implemented the eGFR calculation approach that does not have a coefficient for race that conforms to the NKF-ASN Task Force Recommendations. Performed By: #### 4 [id number] ####[facility] [place] [address] [address] Wojciech Oneal M.D. [id number] Urea nitrogen [Mass/Vol] 10 mg/dL Normal 8-25 [facility] Comment on above: Order Comment: [facility] has implemented the eGFR calculation approach that does not have a coefficient for race that conforms to the NKF-ASN Task Force Recommendations. Performed By: #### 4 [id number] ####[facility] [place] [place] [facility] [address] [id number] Wojciech Oneal M.D. [id number] Urea nitrogen/Creatinine [Mass ratio] 10.3 mg/mg Normal 10.0-20.0 [facility] Comment on above: Order Comment: [facility] has implemented the eGFR calculation approach that does not have a coefficient for race that conforms to the NKF-ASN Task Force Recommendations. Performed By: #### 4 6124 ####[facility] [place] [place] [facility] [address] [id number] Wojciech Oneal M.D. [id number] CALCIUM, IONIZEDon 09-22-202 5 CALCIUM IONIZED 4.6 mg/dL Normal 4.5-5.3 [facility] Comment on above: Performed By: #### 4 5190 ####[facility] [place] [place] [facility] [address] [address] Wojciech Oneal M.D. [id number] CALCIUM IONIZED 4.2 mg/dL Low 4.5-5.3 [facility] Comment on above: Performed By: #### 4 5190 ####[facility] [place] [place] [facility] [address] [address] Wojciech Oneal M.D. [id number] CBCon 02-02-2025 AUTO NRBC 0.0 % Normal [facility] Comment on above: Performed By: #### 4 [id number] ####[facility] [place] [place] [facility] [address] [address] Wojciech Oneal M.D. [id number] AUTO NRBC ABS COUNT 0.00 K/mcL Normal 0.00-0.00 [facility] Comment on above: Performed By: #### 4 [id number] ####[facility] [place] [place] [facility] [address] [address] Wojciech Oneal M.D. [id number] Erythrocyte distribution width (RBC) [Ratio] 15.2 % High 11.6-14.8 [facility] Comment on above: Performed By: #### 4 [id number] ####[facility] [place] [place] [facility] [address] [address] Wojciech Oneal M.D. [id number] Hematocrit (Bld) [Volume fraction] 24.1 % Low 41.0-53.0 [facility] Comment on above: Performed By: #### 4 [id number] ####[facility] [place] [place] [facility] [address] [id number] Wojciech Oneal M.D. [id number] Hemoglobin (Bld) [Mass/Vol] 7.4 g/dL Low 13.5-17.5 [facility] Comment on above: Performed By: #### 4 [id number] ####[facility] [place] [place] [facility] [address] [address] Wojciech Oneal M.D. [id number] MCH (RBC) [Entitic mass] 29.6 pg Normal 26.0-34.0 [facility] Comment on above: Performed By: #### 4 [id number] ####[facility] [place] [place] [facility] [address] [id number] Wojciech Oneal M.D. [id number] MCV (RBC) [Entitic vol] 96.4 fL Normal 80.0-100.0 [facility] Comment on above: Performed By: #### 4 [id number] ####[facility] [place] [place] [facility] [address] [id number] Wojciech Oneal M.D. [id number] MEAN CORPUSCULAR HEMOGLOBIN CONC 30.7 g/dL Low 31.0-37.0 [facility] Comment on above: Performed By: #### 4 [id number] ####[facility] [place] [place] [facility] [address] [address] Wojciech Oneal M.D. [id number] Platelet mean volume (Bld) [Entitic vol] 8.9 fL Low 9.4-12.4 [facility] Comment on above: Performed By: #### 4 [id number] ####[facility] [place] [place] [facility] [address] [address] Wojciech Oneal M.D. [id number] Platelets (Bld) [#/Vol] 350 10*3/uL Normal 150-400 [facility] Comment on above: Performed By: #### 4 [id number] ####[facility] [place] [place] [facility] [address] [address] Wojciech Oneal M.D. [id number] RBC (Bld) [#/Vol] 2.50 10*6/uL Low 4.50-5.90 [facility] Comment on above: Performed By: #### 4 [id number] ####[facility] [place] [place] [facility] [address] [id number] Wocjiech Oneal M.D. [id number] WBC (Bld) [#/Vol] 13.04 10*3/uL High 4.50-11.00 [facility] Comment on above: Performed By: #### 4 [id number] ####[facility] [place] [place] [facility] [address] [address] Wojciech Oneal M.D. [id number] MAGNESIUM LEVELon 02-02-2025 Magnesium [Mass/Vol] 2.2 mg/dL Normal 1.6-2.4 [facility] Comment on above: Performed By: #### 4 6109 ####[facility] [address] [address] Wojciech Oneal M.D. [id number] Magnesium [Mass/Vol] 1.9 mg/dL Normal 1.6-2.4 [facility] Comment on above: Performed By: #### 4 6109 ####[facility] [address] [address] Wojciech Oneal M.D. [id number] PHOSPHORUSon 02-02-2025 Phosphate [Mass/Vol] 2.6 mg/dL Normal 2.3-3.7 [facility] Comment on above: Performed By: #### 4 6299 ####[facility] [address] [address] Wojciech Oneal M.D. [id number] POC GLUCOSE - [facility] 025 Glucose [Mass/Vol] 120 mg/dL [address] Comment on above: Performed By: #### 4 6932 ####[facility] [place] [place] [facility] [address] [address] [id number] [facility] Glucose [Mass/Vol] 118 mg/dL [address] Comment on above: Performed By: #### 4 6932 ####[facility] [place] [place] [facility] [address] [address] [id number] [facility] Glucose [Mass/Vol] 136 mg/dL [address] Comment on above: Performed By: #### 4 6932 ####[facility] [place] [place] [facility] [address] [address] [id number] [facility] Glucose [Mass/Vol] 138 mg/dL [address] Comment on above: Performed By: #### 4 6932 ####[facility] [place] [place] [facility] [address] [address] [id number] [facility] POTASSIUM LEVELon 02-02-2025 Potassium [Moles/Vol] 3.2 mmol/L Low 3.5-5.1 [facility] Comment on above: Performed By: #### 4 6351 ####[facility] [place] [place] [facility] [address], [place] [address] Wojciech Oneal M.D. [id number] XR ABDOMEN /KUB/FLAT PLATE/1 VIEWon 02-02-2025 XR ABDOMEN /KUB/FLAT PLATE/1 [facility] Comment on above: Order Comment: Injur y/Trauma or Illness?:Illness/OtherHow long have you had these symptoms (acute/chronic)?:AcuteReason for exam?:Abdominal distention s/p decompressive colonoscopyHistory of cancer?:unkSurgeries, chemotherapy, or radiation?:unkType of Exam?:InitialAdditional signs and symptoms?:unk BASIC METABOLIC PANELon 01-13 Anion gap [Moles/Vol] 13 mmol/L Normal 10-20 [facility] Comment on above: Order Comment: [facility] has implemented the eGFR calculation approach that does not have a coefficient for race that conforms to the NKF-ASN Task Force Recommendations. Performed By: #### 4 6124 ####[facility] [place] [place] [facility] [address] [place], [place] [address] Wojciech Oneal M.D. [id number] Calcium [Mass/Vol] 7.1 mg/dL Low 8.4-10.2 [facility] Comment on above: Order Comment: [facility] has implemented the eGFR calculation approach that does not have a coefficient for race that conforms to the NKF-ASN Task Force Recommendations. Performed By: #### 4 6124 ####[facility] [place] [place] [facility] [address], [place] [address] Wojciech Oneal M.D. [id number] Chloride [Moles/Vol] 114 mmol/L High 98-108 [facility] Comment on above: Order Comment: [facility] has implemented the eGFR calculation approach that does not have a coefficient for race that conforms to the NKF-ASN Task Force Recommendations. Performed By: #### 4 6124 ####[facility] [place] [place] [facility] [address], [place] [address] Wojciech Oneal M.D. [id number] Creatinine [Mass/Vol] 0.87 mg/dL Normal 0.80-1.30 [facility] Comment on above: Order Comment: [facility] has implemented the eGFR calculation approach that does not have a coefficient for race that conforms to the NKF-ASN Task Force Recommendations. Performed By: #### 4 6124 ####[facility] [place] [place] [facility] [address] [id number] Wojciech Oneal M.D. [id number] EGFR 92 mL/min/1.73 m2 Normal >=60 [facility] Comment on above: Order Comment: [facility] has implemented the eGFR calculation approach that does not have a coefficient for race that conforms to the NKF-ASN Task Force Recommendations. Result Comment: Chelsea mated GFR was calculated using the 2020 CKD-EPI creatinine equation. Performed By: #### 4 6124 ####[facility] [place] [place] [facility] [address] [id number] Wojciech Oneal M.D. [id number] Glucose [Mass/Vol] 108 mg/dL High 65-99 [facility] Comment on above: Order Comment: [facility] has implemented the eGFR calculation approach that does not have a coefficient for race that conforms to the NKF-ASN Task Force Recommendations. Performed By: #### 4 6124 ####[facility] [place] [place] [facility] [address] [id number] Wojciech Oneal M.D. [id number] HCO3 (Bld) [Moles/Vol] 22 mmol/L Normal 21-32 [facility] Comment on above: Order Comment: [facility] has implemented the eGFR calculation approach that does not have a coefficient for race that conforms to the NKF-ASN Task Force Recommendations. Performed By: #### 4 6124 ####[facility] [place] [place] [facility] [address] [id number] Wojciech Oneal M.D. [id number] Potassium [Moles/Vol] 2.9 mmol/L Low 3.5-5.1 [facility] Comment on above: Order Comment: [facility] has implemented the eGFR calculation approach that does not have a coefficient for race that conforms to the NKF-ASN Task Force Recommendations. Performed By: #### 4 6124 ####[facility] [place] [place] [facility] [address] [id number] Wojciech Oneal M.D. [id number] Sodium [Moles/Vol] 146 mmol/L High 135-145 [facility] Comment on above: Order Comment: [facility] has implemented the eGFR calculation approach that does not have a coefficient for race that conforms to the NKF-ASN Task Force Recommendations. Performed By: #### 4 6124 ####[facility] [place] [place] [facility] [address] [place], [place] [address] Wojciech Oneal M.D. [id number] Urea nitrogen [Mass/Vol] 12 mg/dL Normal 8-25 [facility] Comment on above: Order Comment: [facility] has implemented the eGFR calculation approach that does not have a coefficient for race that conforms to the NKF-ASN Task Force Recommendations. Performed By: #### 4 6124 ####[facility] [place] [place] [facility] [address] [id number] Wojciech Oneal M.D. [id number] Urea nitrogen/Creatinine [Mass ratio] 13.8 mg/mg Normal 10.0-20.0 [facility] Comment on above: Order Comment: [facility] has implemented the eGFR calculation approach that does not have a coefficient for race that conforms to the NKF-ASN Task Force Recommendations. Performed By: #### 4 6124 ####[facility] [place] [place] [facility] [address] [id number] Wojciech Oneal M.D. [id number] CALCIUM, IONIZEDon 5 CALCIUM IONIZED 4.2 mg/dL Low 4.5-5.3 [facility] Comment on above: Performed By: #### 4 5190 ####[facility] [place] [place] [facility] [address] [id number] Wojciech Oneal M.D. [id number] CBCon 02-01-2025 AUTO NRBC 0.0 % Normal [facility] Comment on above: Performed By: #### 4 [id number] ####[facility] [place] [place] [facility] [address] [place], [place] [address] Wojciech Oneal M.D. [id number] AUTO NRBC ABS COUNT 0.00 K/mcL Normal 0.00-0.00 [facility] Comment on above: Performed By: #### 4 [id number] ####[facility] [place] [place] [facility] [address] [address] Wojciech Oneal M.D. [id number] Erythrocyte distribution width (RBC) [Ratio] 14.9 % High 11.6-14.8 [facility] Comment on above: Performed By: #### 4 [id number] ####[facility] [place] [place] [facility] [address] [address] Wojciech Oneal M.D. [id number] Hematocrit (Bld) [Volume fraction] 23.6 % Low 41.0-53.0 [facility] Comment on above: Performed By: #### 4 [id number] ####[facility] [place] [place] [facility] [address] [address] Wojciech Oneal M.D. [id number] Hemoglobin (Bld) [Mass/Vol] 7.5 g/dL Low 13.5-17.5 [facility] Comment on above: Performed By: #### 4 [id number] ####[facility] [place] [place] [facility] [address] [address] Wojciech Oneal M.D. [id number] MCH (RBC) [Entitic mass] 29.8 pg Normal 26.0-34.0 [facility] Comment on above: Performed By: #### 4 [id number] ####[facility] [place] [place] [facility] [address] [address] Wojciech Oneal M.D. [id number] MCV (RBC) [Entitic vol] 93.7 fL Normal 80.0-100.0 [facility] Comment on above: Performed By: #### 4 [id number] ####[facility] [place] [place] [facility] [address] [address] Wojciech Oneal M.D. [id number] MEAN CORPUSCULAR HEMOGLOBIN CONC 31.8 g/dL Normal 31.0-37.0 [facility] Comment on above: Performed By: #### 4 [id number] ####[facility] [place] [place] [facility] [address] [address] Wojciech Oneal M.D. [id number] Platelet mean volume (Bld) [Entitic vol] 9.1 fL Low 9.4-12.4 [facility] Comment on above: Performed By: #### 4 [id number] ####[facility] [place] [place] [facility] [address] [place], [place] [address] Wojciech Oneal M.D. [id number] Platelets (Bld) [#/Vol] 330 10*3/uL Normal 150-400 [facility] Comment on above: Performed By: #### 4 [id number] ####[facility] [address], [place] [address] Wojciech Oneal M.D. [id number] RBC (Bld) [#/Vol] 2.52 10*6/uL Low 4.50-5.90 [facility] Comment on above: Performed By: #### 4 5218 ####[facility] [address] [id number] Wojciech Oneal M.D. [id number] WBC (Bld) [#/Vol] 16.02 10*3/uL High 4.50-11.00 [facility] Comment on above: Performed By: #### 4 5218 ####[facility] [address] [id number] Wojciech Oneal M.D. [id number] MAGNESIUM LEVELon 02-01-2025 Magnesium [Mass/Vol] 2.3 mg/dL Normal 1.6-2.4 [facility] Comment on above: Performed By: #### 4 6109 ####[facility] [place] [place] [facility] [address] [id number] Wojciech Oneal M.D. [id number] Magnesium [Mass/Vol] 2.1 mg/dL Normal 1.6-2.4 [facility] Comment on above: Performed By: #### 4 6109 ####[facility] [place] [place] [facility] [address] [id number] Wojciech Oneal M.D. [id number] PHOSPHORUSon 02-01-2025 Phosphate [Mass/Vol] 2.4 mg/dL Normal 2.3-3.7 [facility] Comment on above: Performed By: #### 4 6299 ####[facility] [place] [place] [facility] [address] [id number] Wojciech Oneal M.D. [id number] POTASSIUM LEVELon 02-01-2025 Potassium [Moles/Vol] 3.2 mmol/L Low 3.5-5.1 [facility] Comment on above: Performed By: #### 4 6351 ####[facility] [place] [place] [facility] [address] [place], [place] [address] Wojciech Oneal M.D. [id number] PREALBUMINon 02-01-2025 Prealbumin [Mass/Vol] 4.5 mg/dL Low 20.0-40.0 [facility] Comment on above: Performed By: #### 4 6355 ####[facility] [place] [place] [facility] [address], [place] [address] Wojciech Oneal M.D. [id number] XR ABDOMEN /KUB/FLAT PLATE/1 VIEWon 02-01-2025 XR ABDOMEN /KUB/FLAT PLATE/1 VIEW Normal [facility] Comment on above: Order Comment: Injur y/Trauma or Illness?:Illness/OtherHow long have you had these symptoms (acute/chronic)?:AcuteReason for exam?:colonic ileusHistory of cancer?:unkSurgeries, chemotherapy, or radiation?:unkType of Exam?:InitialAdditional signs and symptoms?:na BASIC METABOLIC PANELon 01-13 Anion gap [Moles/Vol] 14 mmol/L Normal 10-20 [facility] Comment on above: Order Comment: [facility] has implemented the eGFR calculation approach that does not have a coefficient for race that conforms to the NKF-ASN Task Force Recommendations. Performed By: #### 4 6124 ####[facility] [place] [place] [facility] [address], [place] [address] Wojciech Oneal M.D. [id number] Calcium [Mass/Vol] 7.3 mg/dL Low 8.4-10.2 [facility] Comment on above: Order Comment: [facility] has implemented the eGFR calculation approach that does not have a coefficient for race that conforms to the NKF-ASN Task Force Recommendations. Performed By: #### 4 6124 ####[facility] [place] [place] [facility] [address], [place] [address] Wojciech Oneal M.D. [id number] Chloride [Moles/Vol] 117 mmol/L High 98-108 [facility] Comment on above: Order Comment: [facility] has implemented the eGFR calculation approach that does not have a coefficient for race that conforms to the NKF-ASN Task Force Recommendations. Performed By: #### 4 6124 ####[facility] [place] [place] [facility] [address] [id number] Wojciech Oneal M.D. [id number] Creatinine [Mass/Vol] 0.92 mg/dL Normal 0.80-1.30 [facility] Comment on above: Order Comment: [facility] has implemented the eGFR calculation approach that does not have a coefficient for race that conforms to the NKF-ASN Task Force Recommendations. Performed By: #### 4 6124 ####[facility] [place] [place] [facility] [address] [id number] Wojciech Oneal M.D. [id number] EGFR 89 mL/min/1.73 m2 Normal >=60 [facility] Comment on above: Order Comment: [facility] has implemented the eGFR calculation approach that does not have a coefficient for race that conforms to the NKF-ASN Task Force Recommendations. Result Comment: Chelsea mated GFR was calculated using the 2020 CKD-EPI creatinine equation. Performed By: #### 4 6124 ####[facility] [place] [place] [facility] [address] [id number] Wojciech Oneal M.D. [id number] Glucose [Mass/Vol] 112 mg/dL High 65-99 [facility] Comment on above: Order Comment: [facility] has implemented the eGFR calculation approach that does not have a coefficient for race that conforms to the NKF-ASN Task Force Recommendations. Performed By: #### 4 6124 ####[facility] [place] [place] [facility] [address] [address] Wojciech Oneal M.D. [id number] HCO3 (Bld) [Moles/Vol] 21 mmol/L Normal 21-32 [facility] Comment on above: Order Comment: [facility] has implemented the eGFR calculation approach that does not have a coefficient for race that conforms to the NKF-ASN Task Force Recommendations. Performed By: #### 4 6124 ####[facility] [place] [place] [facility] [address] [id number] Wojciech Oneal M.D. [id number] Potassium [Moles/Vol] 3.4 mmol/L Low 3.5-5.1 [facility] Comment on above: Order Comment: [facility] has implemented the eGFR calculation approach that does not have a coefficient for race that conforms to the NKF-ASN Task Force Recommendations. Performed By: #### 4 6124 ####[facility] [place] [place] [facility] [address] [place], [place] [address] Wojciech Oneal M.D. [id number] Sodium [Moles/Vol] 149 mmol/L High 135-145 [facility] Comment on above: Order Comment: [facility] has implemented the eGFR calculation approach that does not have a coefficient for race that conforms to the NKF-ASN Task Force Recommendations. Performed By: #### 4 6124 ####[facility] [place] [place] [facility] [address] [address] Wojciech Oneal M.D. [id number] Urea nitrogen [Mass/Vol] 16 mg/dL Normal 8-25 [facility] Comment on above: Order Comment: [facility] has implemented the eGFR calculation approach that does not have a coefficient for race that conforms to the NKF-ASN Task Force Recommendations. Performed By: #### 4 6124 ####[facility] [place] [place] [address] [id number] Wojciech Oneal M.D. [id number] Urea nitrogen/Creatinine [Mass ratio] 17.4 mg/mg Normal 10.0-20.0 [facility] Comment on above: Order Comment: [facility] has implemented the eGFR calculation approach that does not have a coefficient for race that conforms to the NKF-ASN Task Force Recommendations. Performed By: #### 4 6124 ####[facility] [place] [place] [address] [place], [place] [address] Wojciech Oneal M.D. [id number] CALCIUM, IONIZEDon CALCIUM IONIZED 4.5 mg/dL Normal 4.5-5.3 [facility] Comment on above: Performed By: #### 4 5190 ####[facility] [place] [place] [address] [place], [place] [address] Wojciech Oneal M.D. [id number] CBCon 01-31-2025 AUTO NRBC 0.0 % Normal [facility] Comment on above: Performed By: #### 4 [id number] ####[facility] [place] [place] [address] [address] Wojciech Oneal M.D. [id number] AUTO NRBC ABS COUNT 0.00 K/mcL Normal 0.00-0.00 [facility] Comment on above: Performed By: #### 4 [id number] ####[facility] [place] [place] [address] [address] Wojciech Oneal M.D. [id number] Erythrocyte distribution width (RBC) [Ratio] 14.8 % Normal 11.6-14.8 [facility] Comment on above: Performed By: #### 4 [id number] ####[facility] [place] [place] [address] [address] Wojciech Oneal M.D. [id number] Hematocrit (Bld) [Volume fraction] 25.1 % Low 41.0-53.0 [facility] Comment on above: Performed By: #### 4 [id number] ####[facility] [place] [place] [address] [address] Wojciech Oneal M.D. [id number] Hemoglobin (Bld) [Mass/Vol] 7.8 g/dL Low 13.5-17.5 [facility] Comment on above: Performed By: #### 4 [id number] ####[facility] [place] [place] [address] [address] Wojciech Oneal M.D. [id number] MCH (RBC) [Entitic mass] 29.2 pg Normal 26.0-34.0 [facility] Comment on above: Performed By: #### 4 [id number] ####[facility] [place] [address] [address] Wojciech Oneal M.D. [id number] MCV (RBC) [Entitic vol] 94.0 fL Normal 80.0-100.0 [facility] Comment on above: Performed By: #### 4 [id number] ####[facility] [place] [address] [address] Wojciech Oneal M.D. [id number] MEAN CORPUSCULAR HEMOGLOBIN CONC 31.1 g/dL Normal 31.0-37.0 [facility] Comment on above: Performed By: #### 4 [id number] ####[facility] [place] [address], [place] [address] Wojciech Oneal M.D. [id number] Platelet mean volume (Bld) [Entitic vol] 8.9 fL Low 9.4-12.4 [facility] Comment on above: Performed By: #### 4 [id number] ####[facility] [place] [place] [address] [id number] Wojciech Oneal M.D. [id number] Platelets (Bld) [#/Vol] 338 10*3/uL Normal 150-400 [facility] Comment on above: Performed By: #### 4 [id number] ####[facility] [place] [place] [address] [address] Wojciech Oneal M.D. [id number] RBC (Bld) [#/Vol] 2.67 10*6/uL Low 4.50-5.90 [facility] Comment on above: Performed By: #### 4 [id number] ####[facility] [place] [place] [address] [address] Wojciech Oneal M.D. [id number] WBC (Bld) [#/Vol] 15.38 10*3/uL High 4.50-11.00 [facility] Comment on above: Performed By: #### 4 [id number] ####[facility] [place] [address] [place], [place] [address] Wojciech Oneal M.D. [id number] MAGNESIUM LEVELon 01-31-2025 Magnesium [Mass/Vol] 1.9 mg/dL Normal 1.6-2.4 [facility] Comment on above: Performed By: #### 4 6109 ####[facility] [place] [address] [id number] Wojciech Oneal M.D. [id number] PHOSPHORUSon 01-31-2025 Phosphate [Mass/Vol] 2.4 mg/dL Normal 2.3-3.7 [facility] Comment on above: Performed By: #### 4 6299 ####[facility] [place] [place] [facility] [address] [id number] Wojciech Oneal M.D. [id number] [facility] Glucose [Mass/Vol] 120 mg/dL [address] Comment on above: Performed By: #### 4 6932 ####[facility] [address] [place] [address] [id number] [facility] Glucose [Mass/Vol] 110 mg/dL [address] Comment on above: Performed By: #### 4 6932 ####[facility] [address] [address] [id number] [facility] Glucose [Mass/Vol] 116 mg/dL [address] Comment on above: Performed By: #### 4 6932 ####[facility] [address] [address] [id number] [facility] Glucose [Mass/Vol] 113 mg/dL [address] Comment on above: Performed By: #### 4 6932 ####[facility] [address] [address] [id number] [facility] Glucose [Mass/Vol] 133 mg/dL [address] Comment on above: Performed By: #### 4 6932 ####[facility] [address] [address] [id number] [facility] Glucose [Mass/Vol] 112 mg/dL [address] Comment on above: Performed By: #### 4 6932 ####[facility] [address] [address] [id number] [facility] Glucose [Mass/Vol] 111 mg/dL [address] Comment on above: Performed By: #### 4 6932 ####[facility] [address] [address] [id number] [facility] POTASSIUM LEVELon 01-31-2025 Potassium [Moles/Vol] 3.1 mmol/L Low 3.5-5.1 [facility] Comment on above: Performed By: #### 4 6351 ####[facility] [address] [address] Wojciech Oneal M.D. [id number] BASIC METABOLIC PANELon 01-12 Anion gap [Moles/Vol] 21 mmol/L High 10-20 [facility] Comment on above: Order Comment: [facility] has implemented the eGFR calculation approach that does not have a coefficient for race that conforms to the NKF-ASN Task Force Recommendations. Performed By: #### 4 6124 ####[facility] [place] [place] [facility] [address], [place] [address] Wojciech Oneal M.D. [id number] Calcium [Mass/Vol] 7.8 mg/dL Low 8.4-10.2 [facility] Comment on above: Order Comment: [facility] has implemented the eGFR calculation approach that does not have a coefficient for race that conforms to the NKF-ASN Task Force Recommendations. Performed By: #### 4 6124 ####[facility] [place] [place] [facility] [address], [place] [address] Wojciech Oneal M.D. [id number] Chloride [Moles/Vol] 108 mmol/L Normal 98-108 [facility] Comment on above: Order Comment: [facility] has implemented the eGFR calculation approach that does not have a coefficient for race that conforms to the NKF-ASN Task Force Recommendations. Performed By: #### 4 6124 ####[facility] [place] [place] [facility] [address] [place], [place] [address] Wojciech Oneal M.D. [id number] Creatinine [Mass/Vol] 0.96 mg/dL Normal 0.80-1.30 [facility] Comment on above: Order Comment: [facility] has implemented the eGFR calculation approach that does not have a coefficient for race that conforms to the NKF-ASN Task Force Recommendations. Performed By: #### 4 6124 ####[facility] [place] [place] [facility] [address] [place], [place] [address] Wojciech Oneal M.D. [id number] EGFR 85 mL/min/1.73 m2 Normal >=60 [facility] Comment on above: Order Comment: [facility] has implemented the eGFR calculation approach that does not have a coefficient for race that conforms to the NKF-ASN Task Force Recommendations. Result Comment: Chelsea mated GFR was calculated using the 2020 CKD-EPI creatinine equation. Performed By: #### 4 6124 ####[facility] [place] [place] [facility] [address] [id number] Wojciech Oneal M.D. [id number] Glucose [Mass/Vol] 75 mg/dL Normal 65-99 [facility] Comment on above: Order Comment: [facility] has implemented the eGFR calculation approach that does not have a coefficient for race that conforms to the NKF-ASN Task Force Recommendations. Performed By: #### 4 6124 ####[facility] [place] [place] [facility] [address] [address] Wojciech Oneal M.D. [id number] HCO3 (Bld) [Moles/Vol] 19 mmol/L Low 21-32 [facility] Comment on above: Order Comment: [facility] has implemented the eGFR calculation approach that does not have a coefficient for race that conforms to the NKF-ASN Task Force Recommendations. Performed By: #### 4 6124 ####[facility] [place] [place] [facility] [address] [id number] Wojciech Oneal M.D. [id number] Potassium [Moles/Vol] 3.2 mmol/L Low 3.5-5.1 [facility] Comment on above: Order Comment: [facility] has implemented the eGFR calculation approach that does not have a coefficient for race that conforms to the NKF-ASN Task Force Recommendations. Performed By: #### 4 6124 ####[facility] [place] [place] [facility] [address] [id number] Wojciech Oneal M.D. [id number] Sodium [Moles/Vol] 145 mmol/L Normal 135-145 [facility] Comment on above: Order Comment: [facility] has implemented the eGFR calculation approach that does not have a coefficient for race that conforms to the NKF-ASN Task Force Recommendations. Performed By: #### 4 6124 ####[facility] [place] [place] [facility] [address] [id number] Wojciech Oneal M.D. [id number] Urea nitrogen [Mass/Vol] 19 mg/dL Normal 8-25 [facility] Comment on above: Order Comment: [facility] has implemented the eGFR calculation approach that does not have a coefficient for race that conforms to the NKF-ASN Task Force Recommendations. Performed By: #### 4 6124 ####[facility] [place] [place] [facility] [address] [id number] Wojciech Oneal M.D. [id number] Urea nitrogen/Creatinine [Mass ratio] 19.8 mg/mg Normal 10.0-20.0 [facility] Comment on above: Order Comment: [facility] has implemented the eGFR calculation approach that does not have a coefficient for race that conforms to the NKF-ASN Task Force Recommendations. Performed By: #### 4 6124 ####[facility] [place] [place] [facility] [address] [address] Wojciech Oneal M.D. [id number] CALCIUM, IONIZEDon CALCIUM IONIZED 4.5 mg/dL Normal 4.5-5.3 [facility] Comment on above: Performed By: #### 4 5190 ####[facility] [place] [place] [facility] [address] [address] Wojciech Oneal M.D. [id number] CBCon 01-30-2025 AUTO NRBC 0.0 % Normal [facility] Comment on above: Performed By: #### 4 5218 ####[facility] [place] [place] [facility] [address] [id number] Wojciech Oenal M.D. [id number] AUTO NRBC ABS COUNT 0.00 K/mcL Normal 0.00-0.00 [facility] Comment on above: Performed By: #### 4 5218 ####[facility] [place] [place] [facility] [address] [id number] Wojciech Oneal M.D. [id number] Erythrocyte distribution width (RBC) [Ratio] 14.9 % High 11.6-14.8 [facility] Comment on above: Performed By: #### 4 5218 ####[facility] [place] [place] [facility] [address] [id number] Wojciech Oneal M.D. [id number] Hematocrit (Bld) [Volume fraction] 30.0 % Low 41.0-53.0 [facility] Comment on above: Performed By: #### 4 5218 ####[facility] [place] [place] [facility] [address] [address] Wojciech Oneal M.D. [id number] Hemoglobin (Bld) [Mass/Vol] 9.0 g/dL Low 13.5-17.5 [facility] Comment on above: Performed By: #### 4 5218 ####[facility] [place] [place] [facility] [address] [address] Wojciech Oneal M.D. [id number] MCH (RBC) [Entitic mass] 29.4 pg Normal 26.0-34.0 [facility] Comment on above: Performed By: #### 4 5218 ####[facility] [place] [place] [facility] [address] [address] Wojciech Oneal M.D. [id number] MCV (RBC) [Entitic vol] 98.0 fL Normal 80.0-100.0 [facility] Comment on above: Performed By: #### 4 5218 ####[facility] [place] [place] [facility] [address] [address] Wojciech Oneal M.D. [id number] MEAN CORPUSCULAR HEMOGLOBIN CONC 30.0 g/dL Low 31.0-37.0 [facility] Comment on above: Performed By: #### 4 5218 ####[facility] [place] [place] [facility] [address] [address] Wojciech Oneal M.D. [id number] Platelet mean volume (Bld) [Entitic vol] 9.0 fL Low 9.4-12.4 [facility] Comment on above: Performed By: #### 4 [id number] ####[facility] [place] [place] [facility] [address] [address] Wojciech Oneal M.D. [id number] Platelets (Bld) [#/Vol] 398 10*3/uL Normal 150-400 [facility] Comment on above: Performed By: #### 4 [id number] ####[facility] [place] [place] [facility] [address] [address] Wojciech Oneal M.D. [id number] RBC (Bld) [#/Vol] 3.06 10*6/uL Low 4.50-5.90 [facility] Comment on above: Performed By: #### 4 [id number] ####[facility] [place] [place] [facility] [address] [address] Wojciech Oneal M.D. [id number] WBC (Bld) [#/Vol] 17.39 10*3/uL High 4.50-11.00 [facility] Comment on above: Performed By: #### 4 5218 ####[facility] [address] [address] Wojciech Oneal M.D. [id number] CONSULTon 01-30-2025 CONSULT [facility] MAGNESIUM LEVELon 01-30-2025 Magnesium [Mass/Vol] 2.2 mg/dL Normal 1.6-2.4 [facility] Comment on above: Performed By: #### 4 6109 ####[facility] [address] [address] Wojciech Oneal M.D. [id number] PHOSPHORUSon 01-30-2025 Phosphate [Mass/Vol] 2.8 mg/dL Normal 2.3-3.7 [facility] Comment on above: Performed By: #### 4 6299 ####[facility] [address] [address] Wojciech Oneal M.D. [id number] POC GLUCOSE - [facility] 025 Glucose [Mass/Vol] 101 mg/dL High [address] [place] [address] Comment on above: Performed By: #### 4 6932 ####[facility] [address] [address] [id number] [facility] Glucose [Mass/Vol] 81 mg/dL Normal [address] [place] [address] Comment on above: Performed By: #### 4 6932 ####[facility] [address] [address] [id number] [facility] Glucose [Mass/Vol] 95 mg/dL Normal [address] [place] [address] Comment on above: Performed By: #### 4 6932 ####[facility] [address] [address] [id number] [facility] Glucose [Mass/Vol] 89 mg/dL Normal [address] [place] [address] Comment on above: Performed By: #### 4 6932 ####[facility] [address] [address] [id number] [facility] XR ABDOMEN /KUB/FLAT PLATE/1 VIEWon 01-30-2025 XR ABDOMEN /KUB/FLAT PLATE/1 VIEW [facility] Comment on above: Order Comment: Injur y/Trauma or Illness?:Injury/TraumaHow long have you had these symptoms (acute/chronic)?:AcuteReason for exam?:OG/NG placementHistory of cancer?:unkSurgeries, chemotherapy, or radiation?:unkType of Exam?:Subsequent/Follow-upMechanism of injury?:OG/NG placement XR ABDOMEN /KUB/FLAT PLATE/1 VIEW [facility] Comment on above: Order Comment: Injur y/Trauma or Illness?:Illness/OtherHow long have you had these symptoms (acute/chronic)?:UnknownReason for exam?:tube inHistory of cancer?:unkSurgeries, chemotherapy, or radiation?:unkType of Exam?:UnknownAdditional signs and symptoms?:na XR ABDOMEN 2 VIEWSon 025 XR ABDOMEN 2 VIEWS [facility] Comment on above: Order Comment: Injur y/Trauma or Illness?:Illness/OtherHow long have you had these symptoms (acute/chronic)?:UnknownReason for exam?:IleusHistory of cancer?:unkSurgeries, chemotherapy, or radiation?:unkType of Exam?:UnknownAdditional signs and symptoms?:Ileus BASIC METABOLIC PANELon 01-12 Anion gap [Moles/Vol] 17 mmol/L Normal 10-20 [facility] Comment on above: Order Comment: [facility] has implemented the eGFR calculation approach that does not have a coefficient for race that conforms to the NKF-ASN Task Force Recommendations. Performed By: #### 4 6124 ####[facility] [place] [place] [facility] [address] [place], [place] [address] Wojciech Oneal M.D. [id number] Calcium [Mass/Vol] 8.2 mg/dL Low 8.4-10.2 [facility] Comment on above: Order Comment: [facility] has implemented the eGFR calculation approach that does not have a coefficient for race that conforms to the NKF-ASN Task Force Recommendations. Performed By: #### 4 6124 ####[facility] [place] [place] [facility] [address], [place] [address] Wojciech Oneal M.D. [id number] Chloride [Moles/Vol] 112 mmol/L High 98-108 [facility] Comment on above: Order Comment: [facility] has implemented the eGFR calculation approach that does not have a coefficient for race that conforms to the NKF-ASN Task Force Recommendations. Performed By: #### 4 6124 ####[facility] [place] [place] [facility] [address] [address] Wojciech Oneal M.D. [id number] Creatinine [Mass/Vol] 1.01 mg/dL Normal 0.80-1.30 [facility] Comment on above: Order Comment: [facility] has implemented the eGFR calculation approach that does not have a coefficient for race that conforms to the NKF-ASN Task Force Recommendations. Performed By: #### 4 6124 ####[facility] [place] [place] [facility] [address] [id number] Wojciech Oneal M.D. [id number] EGFR 80 mL/min/1.73 m2 Normal >=60 [facility] Comment on above: Order Comment: [facility] has implemented the eGFR calculation approach that does not have a coefficient for race that conforms to the NKF-ASN Task Force Recommendations. Result Comment: Chelsea mated GFR was calculated using the 2020 CKD-EPI creatinine equation. Performed By: #### 4 6124 ####[facility] [place] [place] [facility] [address] [id number] Wojciech Oneal M.D. [id number] Glucose [Mass/Vol] 90 mg/dL Normal 65-99 [facility] Comment on above: Order Comment: [facility] has implemented the eGFR calculation approach that does not have a coefficient for race that conforms to the NKF-ASN Task Force Recommendations. Performed By: #### 4 6124 ####[facility] [place] [place] [facility] [address] [id number] Wojciech Oneal M.D. [id number] HCO3 (Bld) [Moles/Vol] 23 mmol/L Normal 21-32 [facility] Comment on above: Order Comment: [facility] has implemented the eGFR calculation approach that does not have a coefficient for race that conforms to the NKF-ASN Task Force Recommendations. Performed By: #### 4 6124 ####[facility] [place] [place] [facility] [address] [id number] Wojciech Oneal M.D. [id number] Potassium [Moles/Vol] 3.3 mmol/L Low 3.5-5.1 [facility] Comment on above: Order Comment: [facility] has implemented the eGFR calculation approach that does not have a coefficient for race that conforms to the NKF-ASN Task Force Recommendations. Performed By: #### 4 6124 ####[facility] [place] [place] [facility] [address] [place], [place] [address] Wojciech Oneal M.D. [id number] Sodium [Moles/Vol] 149 mmol/L High 135-145 [facility] Comment on above: Order Comment: [facility] has implemented the eGFR calculation approach that does not have a coefficient for race that conforms to the NKF-ASN Task Force Recommendations. Performed By: #### 4 6124 ####[facility] [place] [place] [facility] [address] [id number] Wojciech Oneal M.D. [id number] Urea nitrogen [Mass/Vol] 18 mg/dL Normal 8-25 [facility] Comment on above: Order Comment: [facility] has implemented the eGFR calculation approach that does not have a coefficient for race that conforms to the NKF-ASN Task Force Recommendations. Performed By: #### 4 6124 ####[facility] [place] [place] [facility] [address] [id number] Wojciech Oneal M.D. [id number] Urea nitrogen/Creatinine [Mass ratio] 17.8 mg/mg Normal 10.0-20.0 [facility] Comment on above: Order Comment: [facility] has implemented the eGFR calculation approach that does not have a coefficient for race that conforms to the NKF-ASN Task Force Recommendations. Performed By: #### 4 6124 ####[facility] [place] [place] [facility] [address], [place] [address] Wojciech Oneal M.D. [id number] CALCIUM, IONIZEDon 5 CALCIUM IONIZED 4.6 mg/dL Normal 4.5-5.3 [facility] Comment on above: Performed By: #### 4 5190 ####[facility] [place] [place] [facility] [address] [address] Wojciech Oneal M.D. [id number] CBCon 01-29-2025 AUTO NRBC 0.0 % Normal [facility] Comment on above: Performed By: #### 4 [id number] ####[facility] [place] [place] [facility] [address] [address] Wojciech Oneal M.D. [id number] AUTO NRBC ABS COUNT 0.00 K/mcL Normal 0.00-0.00 [facility] Comment on above: Performed By: #### 4 [id number] ####[facility] [place] [place] [facility] [address] [address] Wojciech Oneal M.D. [id number] Erythrocyte distribution width (RBC) [Ratio] 14.6 % Normal 11.6-14.8 [facility] Comment on above: Performed By: #### 4 [id number] ####[facility] [place] [place] [facility] [address] [address] Wojciech Oneal M.D. [id number] Hematocrit (Bld) [Volume fraction] 26.8 % Low 41.0-53.0 [facility] Comment on above: Performed By: #### 4 5218 ####[facility] [place] [place] [facility] [address] [address] Wojciech Oneal M.D. [id number] Hemoglobin (Bld) [Mass/Vol] 8.5 g/dL Low 13.5-17.5 [facility] Comment on above: Performed By: #### 4 5218 ####[facility] [place] [place] [facility] [address] [address] Wojciech Oneal M.D. [id number] MCH (RBC) [Entitic mass] 30.2 pg Normal 26.0-34.0 [facility] Comment on above: Performed By: #### 4 [id number] ####[facility] [place] [place] [facility] [address] [address] Wojciech Oneal M.D. [id number] MCV (RBC) [Entitic vol] 95.4 fL Normal 80.0-100.0 [facility] Comment on above: Performed By: #### 4 5218 ####[facility] [place] [place] [facility] [address] [place], [place] [address] Wojciech Oneal M.D. [id number] MEAN CORPUSCULAR HEMOGLOBIN CONC 31.7 g/dL Normal 31.0-37.0 [facility] Comment on above: Performed By: #### 4 5218 ####[facility] [place] [place] [facility] [address] [place], [place] [address] Wojciech Oneal M.D. [id number] Platelet mean volume (Bld) [Entitic vol] 9.0 fL Low 9.4-12.4 [facility] Comment on above: Performed By: #### 4 [id number] ####[facility] [place] [place] [facility] [address] [id number] Wojciech Oneal M.D. [id number] Platelets (Bld) [#/Vol] 367 10*3/uL Normal 150-400 [facility] Comment on above: Performed By: #### 4 [id number] ####[facility] [place] [place] [facility] [address] [id number] Wojciech Oneal M.D. [id number] RBC (Bld) [#/Vol] 2.81 10*6/uL Low 4.50-5.90 [facility] Comment on above: Performed By: #### 4 5218 ####[facility] [place] [place] [facility] [address] [id number] Wojciech Oneal M.D. [id number] WBC (Bld) [#/Vol] 18.10 10*3/uL High 4.50-11.00 [facility] Comment on above: Performed By: #### 4 5218 ####[facility] [place] [place] [facility] [address] [place], [place] [address] Wojciech Oneal M.D. [id number] MAGNESIUM LEVELon 01-29-2025 Magnesium [Mass/Vol] 2.3 mg/dL Normal 1.6-2.4 [facility] Comment on above: Performed By: #### 4 6109 ####[facility] [place] [place] [facility] [address] [id number] Wojciech Oneal M.D. [id number] Magnesium [Mass/Vol] 2.2 mg/dL Normal 1.6-2.4 [facility] Comment on above: Performed By: #### 4 6109 ####[facility] [address] [address] Wojciech Oneal M.D. [id number] PHOSPHORUSon 01-29-2025 Phosphate [Mass/Vol] 2.5 mg/dL Normal 2.3-3.7 [facility] Comment on above: Performed By: #### 4 6299 ####[facility] [address] [address] Wojciech Oneal M.D. [id number] Phosphate [Mass/Vol] 2.2 mg/dL Low 2.3-3.7 [facility] Comment on above: Performed By: #### 4 6299 ####[facility] [place] [place] [facility] [address] [address] Wojciech Oneal M.D. [id number] POC GLUCOSE - [facility] 025 Glucose [Mass/Vol] 96 mg/dL Normal 65-99 [facility] Comment on above: Performed By: #### 4 6932 ####[facility] [place] [place] [facility] [address] [address] [id number] [facility] Glucose [Mass/Vol] 99 mg/dL Normal [address] [place] [address] Comment on above: Performed By: #### 4 6932 ####[facility] [place] [place] [facility] [address] [address] [id number] [facility] Glucose [Mass/Vol] 108 mg/dL High [address] [place] [address] Comment on above: Performed By: #### 4 6932 ####[facility] [place] [place] [facility] [address] [address] [id number] [facility] POTASSIUM LEVELon 01-29-2025 Potassium [Moles/Vol] 3.6 mmol/L Normal 3.5-5.1 [facility] Comment on above: Performed By: #### 4 6351 ####[facility] [address] [address] Wojciech Oneal M.D. [id number] XR ABDOMEN /KUB/FLAT PLATE/1 VIEWon 01-29-2025 XR ABDOMEN /KUB/FLAT PLATE/1 VIEW [facility] Comment on above: Order Comment: Injur y/Trauma or Illness?:Illness/OtherHow long have you had these symptoms (acute/chronic)?:AcuteReason for exam?:leusHistory of cancer?:unkSurgeries, chemotherapy, or radiation?:unkType of Exam?:InitialAdditional signs and symptoms?:history of hypertension, heart failure, lymphedema, presented on 01/22/2025 with necrotizing infection. [facility] [place] by [facility] for medical management. BASIC METABOLIC PANELon 01-12 Anion gap [Moles/Vol] 15 mmol/L Normal 10-20 [facility] Comment on above: Order Comment: [facility] has implemented the eGFR calculation approach that does not have a coefficient for race that conforms to the NKF-ASN Task Force Recommendations. Performed By: #### 4 6124 ####[facility] [place] [place] [address] [address] Wojciech Oneal M.D. [id number] Calcium [Mass/Vol] 7.9 mg/dL Low 8.4-10.2 [facility] Comment on above: Order Comment: [facility] has implemented the eGFR calculation approach that does not have a coefficient for race that conforms to the NKF-ASN Task Force Recommendations. Performed By: #### 4 6124 ####[facility] [place] [place] [address] [id number] Wojciech Oneal M.D. [id number] Chloride [Moles/Vol] 111 mmol/L High 98-108 [facility] Comment on above: Order Comment: [facility] has implemented the eGFR calculation approach that does not have a coefficient for race that conforms to the NKF-ASN Task Force Recommendations. Performed By: #### 4 6138 ####[facility] [place] [place] [address] [id number] Wojciech Oneal M.D. [id number] Creatinine [Mass/Vol] 1.01 mg/dL Normal 0.80-1.30 [facility] Comment on above: Order Comment: [facility] has implemented the eGFR calculation approach that does not have a coefficient for race that conforms to the NKF-ASN Task Force Recommendations. Performed By: #### 4 [id number] ####[facility] [place] [place] [facility] [address] [id number] Wojciech Oneal M.D. [id number] EGFR 80 mL/min/1.73 m2 Normal >=60 [facility] Comment on above: Order Comment: [facility] has implemented the eGFR calculation approach that does not have a coefficient for race that conforms to the NKF-ASN Task Force Recommendations. Result Comment: Chelsea mated GFR was calculated using the 2020 CKD-EPI creatinine equation. Performed By: #### 4 [id number] ####[facility] [place] [place] [address] [id number] Wojciech Oneal M.D. [id number] Glucose [Mass/Vol] 106 mg/dL High 65-99 [facility] Comment on above: Order Comment: [facility] has implemented the eGFR calculation approach that does not have a coefficient for race that conforms to the NKF-ASN Task Force Recommendations. Performed By: #### 4 6124 ####[facility] [place] [place] [address] [id number] Wojciech Oneal M.D. [id number] HCO3 (Bld) [Moles/Vol] 25 mmol/L Normal 21-32 [facility] Comment on above: Order Comment: [facility] has implemented the eGFR calculation approach that does not have a coefficient for race that conforms to the NKF-ASN Task Force Recommendations. Performed By: #### 4 6124 ####[facility] [place] [place] [address] [place], [place] [address] Wojciech Oneal M.D. [id number] Potassium [Moles/Vol] 3.8 mmol/L Normal 3.5-5.1 [facility] Comment on above: Order Comment: [facility] has implemented the eGFR calculation approach that does not have a coefficient for race that conforms to the NKF-ASN Task Force Recommendations. Performed By: #### 4 6124 ####[facility] [place] [place] [address], [place] [address] Wojciech Oneal M.D. [id number] Sodium [Moles/Vol] 147 mmol/L High 135-145 [facility] Comment on above: Order Comment: [facility] has implemented the eGFR calculation approach that does not have a coefficient for race that conforms to the NKF-ASN Task Force Recommendations. Performed By: #### 4 6124 ####[facility] [place] [place] [address] [place], [place] [address] Wojciech Oneal M.D. [id number] Urea nitrogen [Mass/Vol] 17 mg/dL Normal 8-25 [facility] Comment on above: Order Comment: [facility] has implemented the eGFR calculation approach that does not have a coefficient for race that conforms to the NKF-ASN Task Force Recommendations. Performed By: #### 4 6124 ####[facility] [place] [place] [address] [id number] Wojciech Oneal M.D. [id number] Urea nitrogen/Creatinine [Mass ratio] 16.8 mg/mg Normal 10.0-20.0 [facility] Comment on above: Order Comment: [facility] has implemented the eGFR calculation approach that does not have a coefficient for race that conforms to the NKF-ASN Task Force Recommendations. Performed By: #### 4 6124 ####[facility] [place] [place] [address] [id number] Wojciech Oneal M.D. [id number] CALCIUM, IONIZEDon 5 CALCIUM IONIZED 4.5 mg/dL Normal 4.5-5.3 [facility] Comment on above: Performed By: #### 4 5190 ####[facility] [place] [place] [address] [place], [place] [address] Wojciech Oneal M.D. [id number] CBCon 01-28-2025 AUTO NRBC 0.0 % Normal [facility] Comment on above: Performed By: #### 4 [id number] ####[facility] [place] [place] [address] [place], [place] [address] Wojciech Oneal M.D. [id number] AUTO NRBC ABS COUNT 0.00 K/mcL Normal 0.00-0.00 [facility] Comment on above: Performed By: #### 4 [id number] ####[facility] [place] [place] [address] [place], [place] [address] Wojciech Oneal M.D. [id number] Erythrocyte distribution width (RBC) [Ratio] 14.1 % Normal 11.6-14.8 [facility] Comment on above: Performed By: #### 4 [id number] ####[facility] [place] [place] [facility] [address] [address] Wojciech Oneal M.D. [id number] Hematocrit (Bld) [Volume fraction] 23.0 % Low 41.0-53.0 [facility] Comment on above: Performed By: #### 4 [id number] ####[facility] [place] [place] [facility] [address] [address] Wojciech Oneal M.D. [id number] Hemoglobin (Bld) [Mass/Vol] 7.1 g/dL Low 13.5-17.5 [facility] Comment on above: Performed By: #### 4 [id number] ####[facility] [place] [place] [facility] [address] [address] Wojciech Oneal M.D. [id number] MCH (RBC) [Entitic mass] 29.6 pg Normal 26.0-34.0 [facility] Comment on above: Performed By: #### 4 [id number] ####[facility] [place] [place] [address] [address] Wojciech Oneal M.D. [id number] MCV (RBC) [Entitic vol] 95.8 fL Normal 80.0-100.0 [facility] Comment on above: Performed By: #### 4 [id number] ####[facility] [place] [place] [facility] [address] [address] Wojciech Oneal M.D. [id number] MEAN CORPUSCULAR HEMOGLOBIN CONC 30.9 g/dL Low 31.0-37.0 [facility] Comment on above: Performed By: #### 4 [id number] ####[facility] [place] [place] [facility] [address] [address] Wojciech Oneal M.D. [id number] Platelet mean volume (Bld) [Entitic vol] 9.0 fL Low 9.4-12.4 [facility] Comment on above: Performed By: #### 4 [id number] ####[facility] [place] [place] [facility] [address] [address] Wojciech Oneal M.D. [id number] Platelets (Bld) [#/Vol] 361 10*3/uL Normal 150-400 [facility] Comment on above: Performed By: #### 4 [id number] ####[facility] [place] [place] [facility] [address] [place], [place] [address] Wojciech Oneal M.D. [id number] RBC (Bld) [#/Vol] 2.40 10*6/uL Low 4.50-5.90 [facility] Comment on above: Performed By: #### 4 [id number] ####[facility] [place] [place] [facility] [address] [id number] Wojciech Oneal M.D. [id number] WBC (Bld) [#/Vol] 22.11 10*3/uL High 4.50-11.00 [facility] Comment on above: Performed By: #### 4 [id number] ####[facility] [place] [place] [facility] [address], [place] [address] Wojciech Oneal M.D. [id number] CT ABDOMEN PELVIS WITH IV CO NTRAST ONLYon 01-28-2025 CT ABDOMEN PELVIS WITH IV CONTRAST ONLY Normal [facility] Comment on above: Order Comment: Injur y/Trauma or Illness?:Illness/OtherHow long have you had these symptoms (acute/chronic)?:AcuteReason for exam?:Abdominal pain, post-op, Bowel obstruction suspectedType of Exam?:Subsequent/Follow-upAdditional signs and symptoms?:Abdominal pain, post-op, Bowel obstruction suspected MAGNESIUM LEVELon 01-28-2025 Magnesium [Mass/Vol] 2.2 mg/dL Normal 1.6-2.4 [facility] Comment on above: Performed By: #### 4 6109 ####[facility] [place] [place] [facility] [address] [id number] Wojciech Oneal M.D. [id number] PHOSPHORUSon 01-28-2025 Phosphate [Mass/Vol] 2.4 mg/dL Normal 2.3-3.7 [facility] Comment on above: Performed By: #### 4 6299 ####[facility] [place] [place] [facility] [address] [place], [place] [address] Wojciech Oneal M.D. [id number] [facility] Glucose [Mass/Vol] 104 mg/dL High 65-99 [facility] Comment on above: Performed By: #### 4 6932 ####[facility] [address] [address] [id number] GMCP[facility] Glucose [Mass/Vol] 91 mg/dL Normal 65- [facility] Comment on above: Performed By: #### 4 6932 ####[facility] [address] [address] [id number] [facility] Glucose [Mass/Vol] 91 mg/dL Normal 65- [facility] Comment on above: Performed By: #### 4 6932 ####[facility] [address] [address] [id number] [facility] Glucose [Mass/Vol] 100 mg/dL High - [facility] Comment on above: Performed By: #### 4 6932 ####[facility] [address] [address] [id number] [facility]CP[facility] XR ABDOMEN /KUB/FLAT PLATE/1 VIEWon 01-28-2025 XR ABDOMEN /KUB/FLAT PLATE/1 VIEW Normal [facility] Comment on above: Order Comment: Injur y/Trauma or Illness?:Illness/OtherHow long have you had these symptoms (acute/chronic)?:AcuteReason for exam?:abdominal distentionHistory of cancer?:unkSurgeries, chemotherapy, or radiation?:unkType of Exam?:InitialAdditional signs and symptoms?:n/a BASIC METABOLIC PANELon 01-12 Anion gap [Moles/Vol] 14 mmol/L Normal 10-20 [facility] Comment on above: Order Comment: [facility] has implemented the eGFR calculation approach that does not have a coefficient for race that conforms to the NKF-ASN Task Force Recommendations. Performed By: #### 4 6124 ####[facility] [address] [address] Wojciech Oneal M.D. [id number] Calcium [Mass/Vol] 7.8 mg/dL Low 8.4-10.2 [facility] Comment on above: Order Comment: [facility] has implemented the eGFR calculation approach that does not have a coefficient for race that conforms to the NKF-ASN Task Force Recommendations. Performed By: #### 4 6124 ####[facility] [place] [place] [facility] [address], [place] [address] Wojciech Oneal M.D. [id number] Chloride [Moles/Vol] 107 mmol/L Normal 98-108 [facility] Comment on above: Order Comment: [facility] has implemented the eGFR calculation approach that does not have a coefficient for race that conforms to the NKF-ASN Task Force Recommendations. Performed By: #### 4 6124 ####[facility] [place] [place] [facility] [address] [address] Wojciech Oneal M.D. [id number] Creatinine [Mass/Vol] 0.94 mg/dL Normal 0.80-1.30 [facility] Comment on above: Order Comment: [facility] has implemented the eGFR calculation approach that does not have a coefficient for race that conforms to the NKF-ASN Task Force Recommendations. Performed By: #### 4 6124 ####[facility] [place] [place] [facility] [address] [id number] Wojciech Oneal M.D. [id number] EGFR 87 mL/min/1.73 m2 Normal >=60 [facility] Comment on above: Order Comment: [facility] has implemented the eGFR calculation approach that does not have a coefficient for race that conforms to the NKF-ASN Task Force Recommendations. Result Comment: Chelsea mated GFR was calculated using the 2020 CKD-EPI creatinine equation. Performed By: #### 4 6124 ####[facility] [place] [place] [address] [id number] Wojciech Oneal M.D. [id number] Glucose [Mass/Vol] 105 mg/dL High 65-99 [facility] Comment on above: Order Comment: [facility] has implemented the eGFR calculation approach that does not have a coefficient for race that conforms to the NKF-ASN Task Force Recommendations. Performed By: #### 4 6124 ####[facility] [place] [place] [facility] [address] [place], [place] [address] Wojciech Oneal M.D. [id number] HCO3 (Bld) [Moles/Vol] 23 mmol/L Normal 21-32 [facility] Comment on above: Order Comment: [facility] has implemented the eGFR calculation approach that does not have a coefficient for race that conforms to the NKF-ASN Task Force Recommendations. Performed By: #### 4 6124 ####[facility] [place] [place] [facility] [address] [id number] Wojciech Oneal M.D. [id number] Potassium [Moles/Vol] 4.0 mmol/L Normal 3.5-5.1 [facility] Comment on above: Order Comment: [facility] has implemented the eGFR calculation approach that does not have a coefficient for race that conforms to the NKF-ASN Task Force Recommendations. Performed By: #### 4 6124 ####[facility] [place] [place] [facility] [address] [id number] Wojciech Oneal M.D. [id number] Sodium [Moles/Vol] 140 mmol/L Normal 135-145 [facility] Comment on above: Order Comment: [facility] has implemented the eGFR calculation approach that does not have a coefficient for race that conforms to the NKF-ASN Task Force Recommendations. Performed By: #### 4 6124 ####[facility] [place] [place] [address] [address] Wojciech Oneal M.D. [id number] Urea nitrogen [Mass/Vol] 19 mg/dL Normal 8-25 [facility] Comment on above: Order Comment: [facility] has implemented the eGFR calculation approach that does not have a coefficient for race that conforms to the NKF-ASN Task Force Recommendations. Performed By: #### 4 6124 ####[facility] [place] [place] [facility] [address] [id number] Wojciech Oneal M.D. [id number] Urea nitrogen/Creatinine [Mass ratio] 20.2 mg/mg High 10.0-20.0 [facility] Comment on above: Order Comment: [facility] has implemented the eGFR calculation approach that does not have a coefficient for race that conforms to the NKF-ASN Task Force Recommendations. Performed By: #### 4 6124 ####[facility] [place] [place] [address] [id number] Wojciech Oneal M.D. [id number] CALCIUM, IONIZEDon 09-16-202 5 CALCIUM IONIZED 4.5 mg/dL Normal 4.5-5.3 [facility] Comment on above: Performed By: #### 4 5190 ####[facility] [place] [place] [facility] [address] [address] Wojciech Oneal M.D. [id number] CBCon 01-27-2025 AUTO NRBC 0.1 % Normal [facility] Comment on above: Performed By: #### 4 [id number] ####[facility] [place] [place] [facility] [address] [address] Wojciech Oneal M.D. [id number] AUTO NRBC ABS COUNT 0.02 K/mcL High 0.00-0.00 [facility] Comment on above: Performed By: #### 4 [id number] ####[facility] [place] [place] [facility] [address] [address] Wojciech Oneal M.D. [id number] Erythrocyte distribution width (RBC) [Ratio] 14.0 % Normal 11.6-14.8 [facility] Comment on above: Performed By: #### 4 [id number] ####[facility] [place] [place] [address] [address] Wojciech Oneal M.D. [id number] Hematocrit (Bld) [Volume fraction] 27.8 % Low 41.0-53.0 [facility] Comment on above: Performed By: #### 4 [id number] ####[facility] [place] [place] [facility] [address] [address] Wojciech Oneal M.D. [id number] Hemoglobin (Bld) [Mass/Vol] 8.8 g/dL Low 13.5-17.5 [facility] Comment on above: Performed By: #### 4 [id number] ####[facility] [place] [place] [address] [address] Wojciech Oneal M.D. [id number] MCH (RBC) [Entitic mass] 29.3 pg Normal 26.0-34.0 [facility] Comment on above: Performed By: #### 4 [id number] ####[facility] [place] [place] [facility] [address] [address] Wojciech Oneal M.D. [id number] MCV (RBC) [Entitic vol] 92.7 fL Normal 80.0-100.0 [facility] Comment on above: Performed By: #### 4 [id number] ####[facility] [place] [place] [address] [id number] Wojciech Oneal M.D. [id number] MEAN CORPUSCULAR HEMOGLOBIN CONC 31.7 g/dL Normal 31.0-37.0 [facility] Comment on above: Performed By: #### 4 [id number] ####[facility] [place] [place] [address] [address] Wojciech Oneal M.D. [id number] Platelet mean volume (Bld) [Entitic vol] 9.0 fL Low 9.4-12.4 [facility] Comment on above: Performed By: #### 4 [id number] ####[facility] [place] [place] [address] [id number] Wojciech Oneal M.D. [id number] Platelets (Bld) [#/Vol] 317 10*3/uL Normal 150-400 [facility] Comment on above: Performed By: #### 4 [id number] ####[facility] [place] [place] [facility] [address] [address] Wojciech Oneal M.D. [id number] RBC (Bld) [#/Vol] 3.00 10*6/uL Low 4.50-5.90 [facility] Comment on above: Performed By: #### 4 [id number] ####[facility] [place] [place] [address] [id number] Wojciech Oneal M.D. [id number] WBC (Bld) [#/Vol] 20.82 10*3/uL High 4.50-11.00 [facility] Comment on above: Performed By: #### 4 [id number] ####[facility] [place] [place] [facility] [address] [id number] Wojciech Oneal M.D. [id number] CONSULTon 01-27-2025 CONSULT [facility] MAGNESIUM LEVELon 01-27-2025 Magnesium [Mass/Vol] 2.2 mg/dL Normal 1.6-2.4 [facility] Comment on above: Performed By: #### 4 6109 ####[facility] [place] [place] [address] [address] Wojciech Oneal M.D. [id number] PHOSPHORUSon 01-27-2025 Phosphate [Mass/Vol] 2.3 mg/dL Normal 2.3-3.7 [facility] Comment on above: Performed By: #### 4 6299 ####[facility] [address] [address] Wojciech Oneal M.D. [id number] POC GLUCOSE - [facility] 025 Glucose [Mass/Vol] 86 mg/dL Normal [address] [place] [address] Comment on above: Performed By: #### 4 6932 ####[facility] [address] [address] [id number] [facility] Glucose [Mass/Vol] 100 mg/dL [address] Comment on above: Performed By: #### 4 6932 ####[facility] [address] [address] [id number] [facility] Glucose [Mass/Vol] 97 mg/dL Normal [address] [place] [address] Comment on above: Performed By: #### 4 6932 ####[facility] [address] [address] [id number] [facility] Glucose [Mass/Vol] 111 mg/dL High [address] [place] [address] Comment on above: Performed By: #### 4 6932 ####[facility] [address] [address] [id number] [facility] Glucose [Mass/Vol] 98 mg/dL Normal [address] [place] [address] Comment on above: Performed By: #### 4 6932 ####[facility] [address] [address] [id number] [facility] XR ABDOMEN /KUB/FLAT PLATE/1 VIEWon 01-27-2025 XR ABDOMEN /KUB/FLAT PLATE/1 VIEW [facility] Comment on above: Order Comment: Injur y/Trauma or Illness?:Illness/OtherHow long have you had these symptoms (acute/chronic)?:AcuteReason for exam?:Abdominal distentionHistory of cancer?:unkSurgeries, chemotherapy, or radiation?:unkType of Exam?:InitialAdditional signs and symptoms?:Abdominal distention BASIC METABOLIC PANELon 01-12 Anion gap [Moles/Vol] 14 mmol/L Normal 10-20 [facility] Comment on above: Order Comment: [facility] has implemented the eGFR calculation approach that does not have a coefficient for race that conforms to the NKF-ASN Task Force Recommendations. Performed By: #### 4 6124 ####[facility] [place] [place] [address] [id number] Wojciech Oneal M.D. [id number] Calcium [Mass/Vol] 7.6 mg/dL Low 8.4-10.2 [facility] Comment on above: Order Comment: [facility] has implemented the eGFR calculation approach that does not have a coefficient for race that conforms to the NKF-ASN Task Force Recommendations. Performed By: #### 4 6124 ####[facility] [place] [place] [address] [id number] Wojciech Oneal M.D. [id number] Chloride [Moles/Vol] 108 mmol/L Normal 98-108 [facility] Comment on above: Order Comment: [facility] has implemented the eGFR calculation approach that does not have a coefficient for race that conforms to the NKF-ASN Task Force Recommendations. Performed By: #### 4 6124 ####[facility] [place] [place] [address] [id number] Wojciech Oneal M.D. [id number] Creatinine [Mass/Vol] 1.03 mg/dL Normal 0.80-1.30 [facility] Comment on above: Order Comment: [facility] has implemented the eGFR calculation approach that does not have a coefficient for race that conforms to the NKF-ASN Task Force Recommendations. Performed By: #### 4 6124 ####[facility] [place] [place] [address] [id number] Wojciech Oneal M.D. [id number] EGFR 78 mL/min/1.73 m2 Normal >=60 [facility] Comment on above: Order Comment: [facility] has implemented the eGFR calculation approach that does not have a coefficient for race that conforms to the NKF-ASN Task Force Recommendations. Result Comment: Chelsea mated GFR was calculated using the 2020 CKD-EPI creatinine equation. Performed By: #### 4 6124 ####[facility] [place] [place] [address] [id number] Wojciech Oneal M.D. [id number] Glucose [Mass/Vol] 113 mg/dL High 65-99 [facility] Comment on above: Order Comment: [facility] has implemented the eGFR calculation approach that does not have a coefficient for race that conforms to the NKF-ASN Task Force Recommendations. Performed By: #### 4 6124 ####[facility] [place] [place] [address] [address] Wojciech Oneal M.D. [id number] HCO3 (Bld) [Moles/Vol] 23 mmol/L Normal 21-32 [facility] Comment on above: Order Comment: [facility] has implemented the eGFR calculation approach that does not have a coefficient for race that conforms to the NKF-ASN Task Force Recommendations. Performed By: #### 4 6124 ####[facility] [place] [place] [address] [id number] Wojciech Oneal M.D. [id number] Potassium [Moles/Vol] 4.1 mmol/L Normal 3.5-5.1 [facility] Comment on above: Order Comment: [facility] has implemented the eGFR calculation approach that does not have a coefficient for race that conforms to the NKF-ASN Task Force Recommendations. Performed By: #### 4 6124 ####[facility] [place] [place] [address] [id number] Wojciech Oneal M.D. [id number] Sodium [Moles/Vol] 141 mmol/L Normal 135-145 [facility] Comment on above: Order Comment: [facility] has implemented the eGFR calculation approach that does not have a coefficient for race that conforms to the NKF-ASN Task Force Recommendations. Performed By: #### 4 6124 ####[facility] [place] [place] [address] [id number] Wojciech Oneal M.D. [id number] Urea nitrogen [Mass/Vol] 25 mg/dL Normal 8-25 [facility] Comment on above: Order Comment: [facility] has implemented the eGFR calculation approach that does not have a coefficient for race that conforms to the NKF-ASN Task Force Recommendations. Performed By: #### 4 6124 ####[facility] [place] [address] [id number] Wojciech Oneal M.D. [id number] Urea nitrogen/Creatinine [Mass ratio] 24.3 mg/mg High 10.0-20.0 [facility] Comment on above: Order Comment: [facility] has implemented the eGFR calculation approach that does not have a coefficient for race that conforms to the NKF-ASN Task Force Recommendations. Performed By: #### 4 6124 ####[facility] [place] [address] [id number] Wojciech Oneal M.D. [id number] CALCIUM, IONIZEDon CALCIUM IONIZED 4.4 mg/dL Low 4.5-5.3 [facility] Comment on above: Performed By: #### 4 5190 ####[facility] [place] [address] [id number] Wojciech Oneal M.D. [id number] CBCon 01-26-2025 AUTO NRBC 0.0 % Normal [facility] Comment on above: Performed By: #### 4 [id number] ####[facility] [place] [address] [id number] Wojciech Oneal M.D. [id number] AUTO NRBC ABS COUNT 0.00 K/mcL Normal 0.00-0.00 [facility] Comment on above: Performed By: #### 4 [id number] ####[facility] [place] [place] [facility] [address] [id number] Wojciech Oneal M.D. [id number] Erythrocyte distribution width (RBC) [Ratio] 13.6 % Normal 11.6-14.8 [facility] Comment on above: Performed By: #### 4 [id number] ####[facility] [place] [place] [facility] [address] [id number] Wojciech Oneal M.D. [id number] Hematocrit (Bld) [Volume fraction] 25.3 % Low 41.0-53.0 [facility] Comment on above: Performed By: #### 4 [id number] ####[facility] [place] [place] [facility] [address] [address] Wojciech Oneal M.D. [id number] Hemoglobin (Bld) [Mass/Vol] 8.1 g/dL Low 13.5-17.5 [facility] Comment on above: Performed By: #### 4 [id number] ####[facility] [place] [place] [facility] [address] [address] Wojciech Oneal M.D. [id number] MCH (RBC) [Entitic mass] 29.5 pg Normal 26.0-34.0 [facility] Comment on above: Performed By: #### 4 [id number] ####[facility] [place] [place] [facility] [address] [address] Wojciech Oneal M.D. [id number] MCV (RBC) [Entitic vol] 92.0 fL Normal 80.0-100.0 [facility] Comment on above: Performed By: #### 4 [id number] ####[facility] [place] [place] [facility] [address] [address] Wojciech Oneal M.D. [id number] MEAN CORPUSCULAR HEMOGLOBIN CONC 32.0 g/dL Normal 31.0-37.0 [facility] Comment on above: Performed By: #### 4 5218 ####[facility] [place] [place] [facility] [address] [id number] Wojciech Oneal M.D. [id number] Platelet mean volume (Bld) [Entitic vol] 9.0 fL Low 9.4-12.4 [facility] Comment on above: Performed By: #### 4 [id number] ####[facility] [place] [place] [facility] [address] [address] Wojciech Oneal M.D. [id number] Platelets (Bld) [#/Vol] 285 10*3/uL Normal 150-400 [facility] Comment on above: Performed By: #### 4 [id number] ####[facility] [place] [place] [facility] [address] [address] Wojciech Oneal M.D. [id number] RBC (Bld) [#/Vol] 2.75 10*6/uL Low 4.50-5.90 [facility] Comment on above: Performed By: #### 4 [id number] ####[facility] [place] [place] [facility] [address] [address] Wojciech Oneal M.D. [id number] WBC (Bld) [#/Vol] 21.63 10*3/uL High 4.50-11.00 [facility] Comment on above: Performed By: #### 4 5218 ####[facility] [address] [address] Wojciech Oneal M.D. [id number] MAGNESIUM LEVELon 01-26-2025 Magnesium [Mass/Vol] 2.4 mg/dL Normal 1.6-2.4 [facility] Comment on above: Performed By: #### 4 6109 ####[facility] [address] [address] Wojciech Oneal M.D. [id number] PHOSPHORUSon 01-26-2025 Phosphate [Mass/Vol] 3.0 mg/dL Normal 2.3-3.7 [facility] Comment on above: Performed By: #### 4 6299 ####[facility] [address] [address] Wojciech Onela M.D. [id number] POC GLUCOSE - [facility] 025 Glucose [Mass/Vol] 118 mg/dL High [address] [place] [address] Comment on above: Performed By: #### 4 6932 ####[facility] [address] [address] [id number] [facility] Glucose [Mass/Vol] 111 mg/dL [address] Comment on above: Performed By: #### 4 6932 ####[facility] [address] [address] [id number] [facility] Glucose [Mass/Vol] 104 mg/dL High [address] [place] [address] Comment on above: Performed By: #### 4 6932 ####[facility] [address] [address] [id number] [facility] Glucose [Mass/Vol] 93 mg/dL Normal [address] [place] [address] Comment on above: Performed By: #### 4 6932 ####[facility] [address] [address] [id number] [facility] Glucose [Mass/Vol] 93 mg/dL Normal 65-99 [facility] Comment on above: Performed By: #### 4 6932 ####[facility] [place] [place] [facility] [address] [address] [id number] [facility] BASIC METABOLIC PANELon 01-12 Anion gap [Moles/Vol] 13 mmol/L Normal 10-20 [facility] Comment on above: Order Comment: [facility] has implemented the eGFR calculation approach that does not have a coefficient for race that conforms to the NKF-ASN Task Force Recommendations. Performed By: #### 4 6124 ####[facility] [place] [place] [facility] [address] [address] Wojciech Oneal M.D. [id number] Calcium [Mass/Vol] 6.8 mg/dL Low 8.4-10.2 [facility] Comment on above: Order Comment: [facility] has implemented the eGFR calculation approach that does not have a coefficient for race that conforms to the NKF-ASN Task Force Recommendations. Performed By: #### 4 6124 ####[facility] [place] [place] [facility] [address] [address] Wojciech Oneal M.D. [id number] Chloride [Moles/Vol] 102 mmol/L Normal 98-108 [facility] Comment on above: Order Comment: [facility] has implemented the eGFR calculation approach that does not have a coefficient for race that conforms to the NKF-ASN Task Force Recommendations. Performed By: #### 4 6124 ####[facility] [place] [place] [facility] [address] [id number] Wojciech Oneal M.D. [id number] Creatinine [Mass/Vol] 1.18 mg/dL Normal 0.80-1.30 [facility] Comment on above: Order Comment: [facility] has implemented the eGFR calculation approach that does not have a coefficient for race that conforms to the NKF-ASN Task Force Recommendations. Performed By: #### 4 6124 ####[facility] [place] [place] [facility] [address] [address] Wojciech Oneal M.D. [id number] EGFR 66 mL/min/1.73 m2 Normal >=60 [facility] Comment on above: Order Comment: [facility] has implemented the eGFR calculation approach that does not have a coefficient for race that conforms to the NKF-ASN Task Force Recommendations. Result Comment: Chelsea mated GFR was calculated using the 2020 CKD-EPI creatinine equation. Performed By: #### 4 6124 ####[facility] [place] [place] [facility] [address] [id number] Wojciech Oneal M.D. [id number] Glucose [Mass/Vol] 100 mg/dL High 65-99 [facility] Comment on above: Order Comment: [facility] has implemented the eGFR calculation approach that does not have a coefficient for race that conforms to the NKF-ASN Task Force Recommendations. Performed By: #### 4 6124 ####[facility] [place] [place] [facility] [address] [address] Wojciech Oneal M.D. [id number] HCO3 (Bld) [Moles/Vol] 23 mmol/L Normal 21-32 [facility] Comment on above: Order Comment: [facility] has implemented the eGFR calculation approach that does not have a coefficient for race that conforms to the NKF-ASN Task Force Recommendations. Performed By: #### 4 6124 ####[facility] [place] [place] [facility] [address] [address] Wojciech Oneal M.D. [id number] Potassium [Moles/Vol] 3.8 mmol/L Normal 3.5-5.1 [facility] Comment on above: Order Comment: [facility] has implemented the eGFR calculation approach that does not have a coefficient for race that conforms to the NKF-ASN Task Force Recommendations. Performed By: #### 4 6124 ####[facility] [place] [place] [facility] [address] [address] Wojciech Oneal M.D. [id number] Sodium [Moles/Vol] 134 mmol/L Low 135-145 [facility] Comment on above: Order Comment: [facility] has implemented the eGFR calculation approach that does not have a coefficient for race that conforms to the NKF-ASN Task Force Recommendations. Performed By: #### 4 6188 ####[facility] [place] [place] [facility] [address] [id number] Wojciech Oneal M.D. [id number] Urea nitrogen [Mass/Vol] 37 mg/dL High 8-25 [facility] Comment on above: Order Comment: [facility] has implemented the eGFR calculation approach that does not have a coefficient for race that conforms to the NKF-ASN Task Force Recommendations. Performed By: #### 4 6124 ####[facility] [place] [place] [facility] [address] [address] Wojciech Oneal M.D. [id number] Urea nitrogen/Creatinine [Mass ratio] 31.4 mg/mg High 10.0-20.0 [facility] Comment on above: Order Comment: [facility] has implemented the eGFR calculation approach that does not have a coefficient for race that conforms to the NKF-ASN Task Force Recommendations. Performed By: #### 4 6124 ####[facility] [place] [place] [facility] [address] [address] Wojciech Oneal M.D. [id number] CALCIUM, IONIZEDon CALCIUM IONIZED 4.4 mg/dL Low 4.5-5.3 [facility] Comment on above: Performed By: #### 4 5190 ####[facility] [place] [place] [facility] [address] [id number] Wojciech Oneal M.D. [id number] CALCIUM IONIZED 4.0 mg/dL Low 4.5-5.3 [facility] Comment on above: Performed By: #### 4 5190 ####[facility] [place] [place] [facility] [address] [address] Wojciech Oneal M.D. [id number] CBCon 01-25-2025 AUTO NRBC 0.1 % Normal [facility] Comment on above: Performed By: #### 4 5218 ####[facility] [place] [place] [facility] [address] [id number] Wojciech Oneal M.D. [id number] AUTO NRBC ABS COUNT 0.02 K/mcL High 0.00-0.00 [facility] Comment on above: Performed By: #### 4 5218 ####[facility] [place] [place] [facility] [address] [address] Wojciech Oneal M.D. [id number] Erythrocyte distribution width (RBC) [Ratio] 13.2 % Normal 11.6-14.8 [facility] Comment on above: Performed By: #### 4 5218 ####[facility] [place] [place] [facility] [address] [address] Wojciech Oneal M.D. [id number] Hematocrit (Bld) [Volume fraction] 24.0 % Low 41.0-53.0 [facility] Comment on above: Performed By: #### 4 5218 ####[facility] [place] [place] [facility] [address] [address] Wojciech Oneal M.D. [id number] Hemoglobin (Bld) [Mass/Vol] 7.9 g/dL Low 13.5-17.5 [facility] Comment on above: Performed By: #### 4 5218 ####[facility] [place] [place] [facility] [address] [address] Wojciech Oneal M.D. [id number] MCH (RBC) [Entitic mass] 29.8 pg Normal 26.0-34.0 [facility] Comment on above: Performed By: #### 4 5218 ####[facility] [place] [place] [facility] [address] [address] Wojciech Oneal M.D. [id number] MCV (RBC) [Entitic vol] 90.6 fL Normal 80.0-100.0 [facility] Comment on above: Performed By: #### 4 5218 ####[facility] [place] [place] [facility] [address] [address] Wojciech Oneal M.D. [id number] MEAN CORPUSCULAR HEMOGLOBIN CONC 32.9 g/dL Normal 31.0-37.0 [facility] Comment on above: Performed By: #### 4 5218 ####[facility] [place] [place] [facility] [address] [address] Wojciech Oneal M.D. [id number] Platelet mean volume (Bld) [Entitic vol] 9.1 fL Low 9.4-12.4 [facility] Comment on above: Performed By: #### 4 5218 ####[facility] [place] [place] [facility] [address] [address] Wojciech Oneal M.D. [id number] Platelets (Bld) [#/Vol] 258 10*3/uL Normal 150-400 [facility] Comment on above: Performed By: #### 4 [id number] ####[facility] [place] [place] [facility] [address] [id number] Wojciech Oneal M.D. [id number] RBC (Bld) [#/Vol] 2.65 10*6/uL Low 4.50-5.90 [facility] Comment on above: Performed By: #### 4 5218 ####[facility] [place] [place] [facility] [address] [id number] Wojciech Oneal M.D. [id number] WBC (Bld) [#/Vol] 18.46 10*3/uL High 4.50-11.00 [facility] Comment on above: Performed By: #### 4 5218 ####[facility] [place] [place] [facility] [address] [address] Wojciech Oneal M.D. [id number] MAGNESIUM LEVELon 01-25-2025 Magnesium [Mass/Vol] 2.3 mg/dL Normal 1.6-2.4 [facility] Comment on above: Performed By: #### 4 6109 ####[facility] [place] [place] [facility] [address] [id number] Wojciech Oneal M.D. [id number] Magnesium [Mass/Vol] 1.9 mg/dL Normal 1.6-2.4 [facility] Comment on above: Performed By: #### 4 6109 ####[facility] [place] [place] [facility] [address] [id number] Wojciech Oneal M.D. [id number] PHOSPHORUSon 01-25-2025 Phosphate [Mass/Vol] 3.3 mg/dL Normal 2.3-3.7 [facility] Comment on above: Performed By: #### 4 6299 ####[facility] [place] [place] [facility] [address] [id number] Wojciech Oneal M.D. [id number] POC ARTERIAL BLOOD GAS PANEL -[facility] 01-25-2025 BASE EXCESS, ARTERIAL -1.1 Normal -2.0-2.0 [facility] Comment on above: Performed By: #### 4 8716 ####[facility] [address] [address] [id number] [facility] CALCIUM IONIZED 4.3 mg/dL Low 4.5-5.3 [facility] Comment on above: Performed By: #### 4 8716 ####[facility] [address] [address] [id number] [facility] CARBOXYHEMOGLOBIN 1.6 % of total Hb High <=1.5 [facility] Comment on above: Result Comment: Refe rence Ranges:Suburban Non-smokers: <1.5%Smokers: 1.5-5.0%Heavy Smokers: 5.0-9.0% Performed By: #### 4 8716 ####[facility] [address] [address] [id number] [facility] FIO2 30 Normal [facility] Comment on above: Performed By: #### 4 8716 ####[facility] [address] [address] [id number] [facility] Glucose [Mass/Vol] 105 mg/dL High 65-99 [facility] Comment on above: Performed By: #### 4 8716 ####[facility] [address] [address] [id number] [facility] HCO3 (Bld) [Moles/Vol] 24.2 mmol/L Normal 22.0-26.0 [facility] Comment on above: Performed By: #### 4 8716 ####[facility] [address] [address] [id number] [facility] Hematocrit (Bld) [Volume fraction] 30.0 % Low 41.0-53.0 [facility] Comment on above: Performed By: #### 4 8716 ####[facility] [address] [address] [id number] [facility] Hemoglobin (Bld) [Mass/Vol] 9.7 g/dL Low 13.5-17.5 [facility] Comment on above: Performed By: #### 4 8716 ####[facility] [address] [address] [id number] [facility] LACTIC ACID, WHOLE BLOOD 0.8 mmol/L Normal 0.6-2.0 [facility] Comment on above: Performed By: #### 4 8716 ####[facility] [address] [address] [id number] [facility] METHEMOGLOBIN 1.1 % Normal 0.0-2.0 [facility] Comment on above: Performed By: #### 4 8716 ####[facility] [address] [address] [id number] [facility] O2HB 93.7 % Low 94.0-98.0 [facility] Comment on above: Performed By: #### 4 8716 ####[facility] [place] [place] [facility] [address] [address] [id number] [facility] Oxygen saturation in Blood 96.3 % Normal 92.0-99.0 [facility] Comment on above: Performed By: #### 4 8716 ####[facility] [address] [address] [id number] [facility] PCO2 ARTERIAL 45.5 mm Hg High 35.0-45.0 [facility] Comment on above: Performed By: #### 4 8716 ####[facility] [address] [address] [id number] [facility] PEEP RAD 8 Normal [facility] Comment on above: Performed By: #### 4 8716 ####[facility] [address] [address] [id number] [facility] PH ARTERIAL 7.34 Low 7.35-7.45 [facility] Comment on above: Performed By: #### 4 8716 ####[facility] [address] [address] [id number] [facility] PO2 ARTERIAL 83 mm Hg Normal 75-85 [facility] Comment on above: Performed By: #### 4 8716 ####[facility] [address] [address] [id number] [facility] Potassium [Moles/Vol] 4.0 mmol/L Normal 3.5-5.1 [facility] Comment on above: Performed By: #### 4 8716 ####[facility] [address] [address] [id number] [facility] RESP RATE RAD 16 [facility] Comment on above: Performed By: #### 4 8716 ####[facility] [address] [address] [id number] [facility] Sodium [Moles/Vol] 138 mmol/L Normal 135-145 [facility] Comment on above: Performed By: #### 4 8716 ####[facility] [address] [address] [id number] [facility] TIDAL VOLUME RAD 450 [facility] Comment on above: Performed By: #### 4 8716 ####[facility] [address] [address] [id number] [facility] POC GLUCOSE - [facility] 025 Glucose [Mass/Vol] 116 mg/dL [address] Comment on above: Performed By: #### 4 6932 ####[facility] [address] [address] [id number] [facility] Glucose [Mass/Vol] 107 mg/dL [address] Comment on above: Performed By: #### 4 6932 ####[facility] [address] [address] [id number] [facility] Glucose [Mass/Vol] 106 mg/dL [address] Comment on above: Performed By: #### 4 6932 ####[facility] [address] [address] [id number] [facility] Glucose [Mass/Vol] 109 mg/dL [address] Comment on above: Performed By: #### 4 6932 ####[facility] [address] [address] [id number] [facility] Glucose [Mass/Vol] 102 mg/dL [address] Comment on above: Performed By: #### 4 6932 ####[facility] [address] [address] [id number] [facility] POTASSIUM LEVELon 01-25-2025 Potassium [Moles/Vol] 4.2 mmol/L Normal 3.5-5.1 [facility] Comment on above: Performed By: #### 4 6351 ####[facility] [place] [place] [facility] [address], [place] [address] Wojciech Oneal M.D. [id number] VANCOMYCIN LEVEL, RANDOMon 0 01-25-2025 VANCOMYCIN RANDOM 11.6 mcg/mL Normal [facility] Comment on above: Order Comment: As of 02/2022 vancomycin dosing for [facility] inpatients will be done by Bayesian dosing software rather than off traditional trough values. Please contact the site specific inpatient pharmacy before making dose changes off of trough values alone for admitted patients.No established reference range. Performed By: #### 4 6651 ####[facility] [place] [place] [facility] [address], [place] [address] Wojciech Oneal M.D. [id number] XR CHEST PA/APon 01-25-2025 XR CHEST PA/AP Normal [facility] Comment on above: Order Comment: Injur y/Trauma or Illness?:Illness/OtherHow long have you had these symptoms (acute/chronic)?:UnknownReason for exam?:Respiratory statusHistory of cancer?:unkSurgeries, chemotherapy, or radiation?:unkType of Exam?:InitialAdditional signs and symptoms?:na BASIC METABOLIC PANELon 01-12 Anion gap [Moles/Vol] 16 mmol/L Normal - [facility] Comment on above: Order Comment: [facility] has implemented the eGFR calculation approach that does not have a coefficient for race that conforms to the NKF-ASN Task Force Recommendations. Performed By: #### 4 6124 ####[facility] [place] [place] [facility] [address], [place] [address] Wojciech Oneal M.D. [id number] Calcium [Mass/Vol] 6.7 mg/dL Low 8.4-10.2 [facility] Comment on above: Order Comment: [facility] has implemented the eGFR calculation approach that does not have a coefficient for race that conforms to the NKF-ASN Task Force Recommendations. Performed By: #### 4 6124 ####[facility] [place] [place] [facility] [address] [id number] Wojciech Oneal M.D. [id number] Chloride [Moles/Vol] 101 mmol/L Normal 98-108 [facility] Comment on above: Order Comment: [facility] has implemented the eGFR calculation approach that does not have a coefficient for race that conforms to the NKF-ASN Task Force Recommendations. Performed By: #### 4 6124 ####[facility] [place] [place] [facility] [address] [address] Wojciech Oneal M.D. [id number] Creatinine [Mass/Vol] 1.82 mg/dL High 0.80-1.30 [facility] Comment on above: Order Comment: [facility] has implemented the eGFR calculation approach that does not have a coefficient for race that conforms to the NKF-ASN Task Force Recommendations. Performed By: #### 4 6124 ####[facility] [place] [place] [address] [id number] Wojciech Oneal M.D. [id number] EGFR 39 mL/min/1.73 m2 Low >=60 [facility] Comment on above: Order Comment: [facility] has implemented the eGFR calculation approach that does not have a coefficient for race that conforms to the NKF-ASN Task Force Recommendations. Result Comment: Chelsea mated GFR was calculated using the 2020 CKD-EPI creatinine equation. Performed By: #### 4 6124 ####[facility] [place] [place] [address] [address] Wojciech Oneal M.D. [id number] Glucose [Mass/Vol] 127 mg/dL High 65-99 [facility] Comment on above: Order Comment: [facility] has implemented the eGFR calculation approach that does not have a coefficient for race that conforms to the NKF-ASN Task Force Recommendations. Performed By: #### 4 6124 ####[facility] [place] [place] [address], [place] [address] Wojciech Oneal M.D. [id number] HCO3 (Bld) [Moles/Vol] 19 mmol/L Low 21-32 [facility] Comment on above: Order Comment: [facility] has implemented the eGFR calculation approach that does not have a coefficient for race that conforms to the NKF-ASN Task Force Recommendations. Performed By: #### 4 6128 ####[facility] [place] [place] [address], [place] [address] Wojciech Oneal M.D. [id number] Potassium [Moles/Vol] 4.0 mmol/L Normal 3.5-5.1 [facility] Comment on above: Order Comment: [facility] has implemented the eGFR calculation approach that does not have a coefficient for race that conforms to the NKF-ASN Task Force Recommendations. Performed By: #### 4 6124 ####[facility] [place] [place] [address] [address] Wojciech Oneal M.D. [id number] Sodium [Moles/Vol] 132 mmol/L Low 135-145 [facility] Comment on above: Order Comment: [facility] has implemented the eGFR calculation approach that does not have a coefficient for race that conforms to the NKF-ASN Task Force Recommendations. Performed By: #### 4 6124 ####[facility] [place] [place] [address] [address] Wojciech Oneal M.D. [id number] Urea nitrogen [Mass/Vol] 49 mg/dL High 8-25 [facility] Comment on above: Order Comment: [facility] has implemented the eGFR calculation approach that does not have a coefficient for race that conforms to the NKF-ASN Task Force Recommendations. Performed By: #### 4 6124 ####[facility] [place] [address], [place] [address] Wojciech Oneal M.D. [id number] Urea nitrogen/Creatinine [Mass ratio] 26.9 mg/mg High 10.0-20.0 [facility] Comment on above: Order Comment: [facility] has implemented the eGFR calculation approach that does not have a coefficient for race that conforms to the NKF-ASN Task Force Recommendations. Performed By: #### 4 6124 ####[facility] [place] [place] [address], [place] [address] Wojciech Oneal M.D. [id number] CALCIUM, IONIZEDon 5 CALCIUM IONIZED 3.9 mg/dL Low 4.5-5.3 [facility] Comment on above: Performed By: #### 4 5190 ####[facility] [place] [place] [address] [id number] Wojciech Oneal M.D. [id number] CBCon 01-24-2025 AUTO NRBC 0.0 % Normal [facility] [facility] Comment on above: Performed By: #### 4 5218 ####[facility] [address] [address] Wojciech Oneal M.D. [id number] AUTO NRBC ABS COUNT 0.00 K/mcL Normal 0.00-0.00 [facility] Comment on above: Performed By: #### 4 5218 ####[facility] [address] [address] Wojciech Oneal M.D. [id number] Erythrocyte distribution width (RBC) [Ratio] 13.0 % Normal 11.6-14.8 [facility] Comment on above: Performed By: #### 4 5218 ####[facility] [address] [address] Wojciech Oneal M.D. [id number] Hematocrit (Bld) [Volume fraction] 24.5 % Low 41.0-53.0 [facility] Comment on above: Performed By: #### 4 5218 ####[place] [address] [id number] Wojciech Oneal M.D. [id number] Hemoglobin (Bld) [Mass/Vol] 8.0 g/dL Low 13.5-17.5 [facility] Comment on above: Performed By: #### 4 5218 ####[facility] [address] [id number] Wojciech Oneal M.D. [id number] MCH (RBC) [Entitic mass] 29.7 pg Normal 26.0-34.0 [facility] Comment on above: Performed By: #### 4 5218 ####[facility] [place] [place] [address] [address] Wojciech Oneal M.D. [id number] MCV (RBC) [Entitic vol] 91.1 fL Normal 80.0-100.0 [facility] Comment on above: Performed By: #### 4 5218 ####[facility] [place] [address] [address] Wojciech Oneal M.D. [id number] MEAN CORPUSCULAR HEMOGLOBIN CONC 32.7 g/dL Normal 31.0-37.0 [facility] Comment on above: Performed By: #### 4 5218 ####[facility] [place] [address], [place] [address] Wojciech Oneal M.D. [id number] Platelet mean volume (Bld) [Entitic vol] 9.3 fL Low 9.4-12.4 [facility] Comment on above: Performed By: #### 4 5218 ####[facility] [place] [address] [id number] Wojciech Oneal M.D. [id number] Platelets (Bld) [#/Vol] 258 10*3/uL Normal 150-400 [facility] Comment on above: Performed By: #### 4 5218 ####[facility] [place] [address] [id number] Wojciech Oneal M.D. [id number] RBC (Bld) [#/Vol] 2.69 10*6/uL Low 4.50-5.90 [facility] Comment on above: Performed By: #### 4 5218 ####[facility] [place] [address] [id number] Wojciech Oneal M.D. [id number] WBC (Bld) [#/Vol] 21.11 10*3/uL High 4.50-11.00 [facility] Comment on above: Performed By: #### 4 5218 ####[facility] [place] [address] [id number] Wojciech Oneal M.D. [id number] CONSULTon 01-24-2025 CONSULT [facility] Culture, Blood (WB)on 2024 CUB Blood cultures x2, from two different sites GRAM STAIN= GRAM NEGATIVE RODS Culture, Blood (WB) RESULTS CALLED/PRINTED TO [facility] 01/22/25 [address] [facility] Culture, Blood (WB) Culture, Blood (WB) Proteus mirabilis Amount Growth Growth Escherichia coli Escherichia coli Proteus mirabilis: REACTION Ampicillin Islt TAMMY <=2 S Ampicillin+Sulbac Islt TAMMY <=2 Cefepime Islt ATMMY <=0.12 S cefTRIAXone Islt TAMMY <=0.25 S [...] TMP SMX Islt TAMMY <=20 S Normal [facility] Comment on above: Performed By: #### L 509.7001, L100.0100, L503.6005, L503.7505, L501.3620, L500.2500, L501.5200, L500.3400 #### [facility] [address] [place], [address] ECHOCARDIOGRAM COMPLETE W CO NTRASTon 01-24-2025 ECHOCARDIOGRAM COMPLETE W CONTRAST Normal [facility] MAGNESIUM LEVELon 01-24-2025 Magnesium [Mass/Vol] 2.0 mg/dL Normal 1.6-2.4 [facility] Comment on above: Performed By: #### 4 6109 ####[facility] [place] [address], [place] [address] Wojciech Oneal M.D. [id number] PHOSPHORUSon 01-24-2025 Phosphate [Mass/Vol] 4.7 mg/dL High 2.3-3.7 [facility] Comment on above: Performed By: #### 4 6299 ####[facility] [place] [address], [place] [address] Wojciech Oneal M.D. [id number] POC ARTERIAL BLOOD GAS PANEL -[facility] 01-24-2025 BASE EXCESS, ARTERIAL -2.8 Low -2.0-2.0 [facility] Comment on above: Performed By: #### 4 8716 ####[facility] [address] [address] [id number] [facility] CALCIUM IONIZED 4.0 mg/dL Low 4.5-5.3 [facility] Comment on above: Performed By: #### 4 8716 ####[facility] [address] [address] [id number] [facility] CARBOXYHEMOGLOBIN 1.3 % of total Hb Normal <=1.5 [facility] Comment on above: Result Comment: Refe rence Ranges:Suburban Non-smokers: <1.5%Smokers: 1.5-5.0%Heavy Smokers: 5.0-9.0% Performed By: #### 4 8716 ####[facility] [address] [address] [id number] [facility] Chloride [Moles/Vol] 103 mmol/L Normal 98-108 [facility] Comment on above: Performed By: #### 4 8716 ####[facility] [address] [address] [id number] [facility] FIO2 30 Normal [facility] Comment on above: Performed By: #### 4 8716 ####[facility] [address] [address] [id number] [facility] Glucose [Mass/Vol] 109 mg/dL High 65-99 [facility] Comment on above: Performed By: #### 4 8716 ####[facility] [address] [address] [id number] [facility] HCO3 (Bld) [Moles/Vol] 23.3 mmol/L Normal 22.0-26.0 [facility] Comment on above: Performed By: #### 4 8716 ####[facility] [address] [address] [id number] [facility] Hematocrit (Bld) [Volume fraction] 25.3 % Low 41.0-53.0 [facility] Comment on above: Performed By: #### 4 8716 ####[facility] [address] [address] [id number] [facility] Hemoglobin (Bld) [Mass/Vol] 8.3 g/dL Low 13.5-17.5 [facility] Comment on above: Performed By: #### 4 8716 ####[facility] [address] [address] [id number] [facility] LACTIC ACID, WHOLE BLOOD 0.8 mmol/L Normal 0.6-2.0 [facility] Comment on above: Performed By: #### 4 8716 ####[facility] [address] [address] [id number] [facility] METHEMOGLOBIN < Normal 0.0-2.0 [facility] Comment on above: Performed By: #### 4 8716 ####[facility] [address] [address] [id number] [facility] O2HB 92.2 % Low 94.0-98.0 [facility] Comment on above: Performed By: #### 4 8716 ####[facility] [place] [place] [facility] [address] [address] [id number] [facility] Oxygen saturation in Blood 93.5 % Normal 92.0-99.0 [facility] Comment on above: Performed By: #### 4 8716 ####[facility] [place] [place] [facility] [address] [address] [id number] [facility] PCO2 ARTERIAL 45.2 mm Hg High 35.0-45.0 [facility] Comment on above: Performed By: #### 4 8716 ####[facility] [address] [address] [id number] [facility] PEEP RAD 8 Normal [facility] Comment on above: Performed By: #### 4 8716 ####[facility] [address] [address] [id number] [facility] PH ARTERIAL 7.32 Low 7.35-7.45 [facility] Comment on above: Performed By: #### 4 8716 ####[facility] [address] [address] [id number] [facility] PO2 ARTERIAL 70 mm Hg Low 75-85 [facility] Comment on above: Performed By: #### 4 8716 ####[facility] [address] [address] [id number] [facility] Potassium [Moles/Vol] 3.7 mmol/L Normal 3.5-5.1 [facility] Comment on above: Performed By: #### 4 8716 ####[facility] [address] [address] [id number] [facility] RESP RATE RAD 16 [facility] Comment on above: Performed By: #### 4 8716 ####[facility] [address] [address] [id number] [facility] RESULT NOTIFICATION RESULTS GIVEN TO:[id number] [facility] Comment on above: Performed By: #### 4 8716 ####[facility] [address] [address] [id number] [facility] Sodium [Moles/Vol] 133 mmol/L Low 135-145 [facility] Comment on above: Performed By: #### 4 8716 ####[facility] [address] [address] [id number] [facility] TIDAL VOLUME RAD 450 [facility] Comment on above: Performed By: #### 4 8716 ####[facility] [address] [address] [id number] [facility] POC GLUCOSE [facility] 025 Glucose [Mass/Vol] 104 mg/dL [address] Comment on above: Performed By: #### 4 6932 ####[facility] [address] [address] [id number] [facility] Glucose [Mass/Vol] 106 mg/dL [address] Comment on above: Performed By: #### 4 6932 ####[facility] [address] [address] [id number] [facility] Glucose [Mass/Vol] 92 mg/dL [address] Comment on above: Performed By: #### 4 6932 ####[facility] [address] [address] [id number] [facility] Glucose [Mass/Vol] 95 mg/dL Normal -[address] [place] [address] Comment on above: Performed By: #### 4 6932 ####[facility] [address] [address] [id number] [facility] Glucose [Mass/Vol] 107 mg/dL High [address] [place] [address] Comment on above: Performed By: #### 4 6932 ####[facility] [address] [address] [id number] [facility] Glucose [Mass/Vol] 127 mg/dL High [address] [place] [address] Comment on above: Performed By: #### 4 6932 ####[facility] [address] [address] [id number] [facility] VANCOMYCIN LEVEL, RANDOMon 0 01-24-2025 VANCOMYCIN RANDOM 20.6 mcg/mL Normal [facility] Comment on above: Order Comment: As of 02/2022 vancomycin dosing for [facility] inpatients will be done by Bayesian dosing software rather than off traditional trough values. Please contact the site specific inpatient pharmacy before making dose changes off of trough values alone for admitted patients.No established reference range. Performed By: #### 4 6651 ####[facility] [address] [id number] Wojciech Oneal M.D. [id number] XR CHEST PA/APon 01-24-2025 XR CHEST PA/AP Normal [facility] Comment on above: Order Comment: Injur y/Trauma or Illness?:Illness/OtherHow long have you had these symptoms (acute/chronic)?:AcuteReason for exam?:Respiratory statusHistory of cancer?:unkSurgeries, chemotherapy, or radiation?:unkType of Exam?:InitialAdditional signs and symptoms?:Respiratory status BASIC METABOLIC PANELon 01-12 Anion gap [Moles/Vol] 16 mmol/L Normal - [facility] Comment on above: Order Comment: [facility] has implemented the eGFR calculation approach that does not have a coefficient for race that conforms to the NKF-ASN Task Force Recommendations. Performed By: #### 4 6124 ####[facility] [address] [id number] Wojciech Oneal M.D. [id number] Calcium [Mass/Vol] 6.9 mg/dL Low 8.4-10.2 [facility] Comment on above: Order Comment: [facility] has implemented the eGFR calculation approach that does not have a coefficient for race that conforms to the NKF-ASN Task Force Recommendations. Performed By: #### 4 6124 ####[facility] [place] [address] [id number] Wojciech Oneal M.D. [id number] Chloride [Moles/Vol] 100 mmol/L Normal 98-108 [facility] Comment on above: Order Comment: [facility] has implemented the eGFR calculation approach that does not have a coefficient for race that conforms to the NKF-ASN Task Force Recommendations. Performed By: #### 4 6124 ####[facility] [address] [address] Wojciech Oneal M.D. [id number] Creatinine [Mass/Vol] 2.68 mg/dL High 0.80-1.30 [facility] Comment on above: Order Comment: [facility] has implemented the eGFR calculation approach that does not have a coefficient for race that conforms to the NKF-ASN Task Force Recommendations. Performed By: #### 4 6124 ####[facility] [place] [address] [id number] Wojciech Oneal M.D. [id number] EGFR 25 mL/min/1.73 m2 Low >=60 [facility] Comment on above: Order Comment: [facility] has implemented the eGFR calculation approach that does not have a coefficient for race that conforms to the NKF-ASN Task Force Recommendations. Result Comment: Chelsea mated GFR was calculated using the 2020 CKD-EPI creatinine equation. Performed By: #### 4 6124 ####[facility] [address] [id number] Wojciech Oneal M.D. [id number] Glucose [Mass/Vol] 134 mg/dL High 65-99 [facility] Comment on above: Order Comment: [facility] has implemented the eGFR calculation approach that does not have a coefficient for race that conforms to the NKF-ASN Task Force Recommendations. Performed By: #### 4 6124 ####[facility] [address], [place] [address] Wojciech Oneal M.D. [id number] HCO3 (Bld) [Moles/Vol] 19 mmol/L Low 21-32 [facility] Comment on above: Order Comment: [facility] has implemented the eGFR calculation approach that does not have a coefficient for race that conforms to the NKF-ASN Task Force Recommendations. Performed By: #### 4 6124 ####[facility] [place] [address] [id number] Wojciech Oneal M.D. [id number] Potassium [Moles/Vol] 4.2 mmol/L Normal 3.5-5.1 [facility] Comment on above: Order Comment: [facility] has implemented the eGFR calculation approach that does not have a coefficient for race that conforms to the NKF-ASN Task Force Recommendations. Performed By: #### 4 6124 ####[facility] [place] [address] [id number] Wojciech Oneal M.D. [id number] Sodium [Moles/Vol] 131 mmol/L Low 135-145 [facility] Comment on above: Order Comment: [facility] has implemented the eGFR calculation approach that does not have a coefficient for race that conforms to the NKF-ASN Task Force Recommendations. Performed By: #### 4 6124 ####[facility] [place] [address] [id number] Wojciech Oneal M.D. [id number] Urea nitrogen [Mass/Vol] 62 mg/dL High 8-25 [facility] Comment on above: Order Comment: [facility] has implemented the eGFR calculation approach that does not have a coefficient for race that conforms to the NKF-ASN Task Force Recommendations. Performed By: #### 4 6124 ####[facility] [place] [address] [id number] Wojciech Oneal M.D. [id number] Urea nitrogen/Creatinine [Mass ratio] 23.1 mg/mg High 10.0-20.0 [facility] Comment on above: Order Comment: [facility] has implemented the eGFR calculation approach that does not have a coefficient for race that conforms to the NKF-ASN Task Force Recommendations. Performed By: #### 4 6124 ####[facility] [place] [address] [address] Wojciech Oneal M.D. [id number] CALCIUM, IONIZEDon 5 CALCIUM IONIZED 4.1 mg/dL Low 4.5-5.3 [facility] Comment on above: Performed By: #### 4 5190 ####[facility] [place] [address] [address] Wojciech Oneal M.D. [id number] CBCon 01-23-2025 AUTO NRBC 0.1 % Normal [facility] Comment on above: Performed By: #### 4 5218 ####[facility] [place] [address] [address] Wojciech Oneal M.D. [id number] AUTO NRBC ABS COUNT 0.02 K/mcL High 0.00-0.00 [facility] Comment on above: Performed By: #### 4 5218 ####[facility] [place] [address] [address] Wojciech Oneal M.D. [id number] Erythrocyte distribution width (RBC) [Ratio] 12.7 % Normal 11.6-14.8 [facility] Comment on above: Performed By: #### 4 5218 ####[facility] [place] [address] [id number] Wojciech Oneal M.D. [id number] Hematocrit (Bld) [Volume fraction] 28.8 % Low 41.0-53.0 [facility] Comment on above: Performed By: #### 4 5218 ####[facility] [place] [address] [address] Wojciech Oneal M.D. [id number] Hemoglobin (Bld) [Mass/Vol] 9.6 g/dL Low 13.5-17.5 [facility] Comment on above: Performed By: #### 4 5218 ####[facility] [place] [address] [address] Wojciech Oneal M.D. [id number] MCH (RBC) [Entitic mass] 29.4 pg Normal 26.0-34.0 [facility] Comment on above: Performed By: #### 4 5218 ####[facility] [place] [address] [id number] Wojciech Oneal M.D. [id number] MCV (RBC) [Entitic vol] 88.1 fL Normal 80.0-100.0 [facility] Comment on above: Performed By: #### 4 5218 ####[facility] [place] [address] [address] Wojciech Oneal M.D. [id number] MEAN CORPUSCULAR HEMOGLOBIN CONC 33.3 g/dL Normal 31.0-37.0 [facility] Comment on above: Performed By: #### 4 5218 ####[facility] [place] [address] [address] Wojciech Oneal M.D. [id number] Platelet mean volume (Bld) [Entitic vol] 9.3 fL Low 9.4-12.4 [facility] Comment on above: Performed By: #### 4 5218 ####[facility] [place] [address] [address] Wojciech Oneal M.D. [id number] Platelets (Bld) [#/Vol] 285 10*3/uL Normal 150-400 [facility] Comment on above: Performed By: #### 4 5218 ####[facility] [place] [address] [address] Wojciech Oneal M.D. [id number] RBC (Bld) [#/Vol] 3.27 10*6/uL Low 4.50-5.90 [facility] Comment on above: Performed By: #### 4 5218 ####[facility] [place] [address] [address] Wojciech Oneal M.D. [id number] WBC (Bld) [#/Vol] 20.92 10*3/uL High 4.50-11.00 [facility] Comment on above: Performed By: #### 4 5218 ####[facility] [place] [address] [id number] Wojciech Oneal M.D. [id number] MAGNESIUM LEVELon 01-23-2025 Magnesium [Mass/Vol] 2.1 mg/dL Normal 1.6-2.4 [facility] Comment on above: Performed By: #### 4 6109 ####[facility] [address] [address] Wojciech Oneal M.D. [id number] OP NOTEon 01-23-2025 OP NOTE Normal [facility] PHOSPHORUSon 01-23-2025 Phosphate [Mass/Vol] 5.2 mg/dL High 2.3-3.7 [facility] Comment on above: Performed By: #### 4 6299 ####[facility] [address] [address] Wojciech Oneal M.D. [id number] POC ARTERIAL BLOOD GAS PANEL [facility] 01-23-2025 BASE EXCESS, ARTERIAL -5.2 Low -2.0-2.0 [facility] Comment on above: Performed By: #### 4 8716 ####[facility] [address] [address] [id number] [facility] CALCIUM IONIZED 4.0 mg/dL Low 4.5-5.3 [facility] Comment on above: Performed By: #### 4 8716 ####[facility] [address] [address] [id number] [facility] CARBOXYHEMOGLOBIN 1.2 % of total Hb Normal <=1.5 [facility] Comment on above: Result Comment: Refe rence Ranges:Suburban Non-smokers: <1.5%Smokers: 1.5-5.0%Heavy Smokers: 5.0-9.0% Performed By: #### 4 8716 ####[facility] [address] [address] [id number] [facility] Chloride [Moles/Vol] 102 mmol/L Normal 98-108 [facility] Comment on above: Performed By: #### 4 8716 ####[facility] [address] [address] [id number] [facility] FIO2 40 [facility] Comment on above: Performed By: #### 4 8716 ####[facility] [address] [id number] [facility] Glucose [Mass/Vol] 128 mg/dL High 65-99 [facility] Comment on above: Performed By: #### 4 8716 ####[facility] [address] [address] [id number] [facility] HCO3 (Bld) [Moles/Vol] 20.5 mmol/L Low 22.0-26.0 [facility] Comment on above: Performed By: #### 4 8716 ####[facility] [address] [address] [id number] [facility] Hematocrit (Bld) [Volume fraction] 30.3 % Low 41.0-53.0 [facility] Comment on above: Performed By: #### 4 8716 ####[facility] [place] [place] [facility] [address] [address] [id number] [facility] Hemoglobin (Bld) [Mass/Vol] 9.9 g/dL Low 13.5-17.5 [facility] Comment on above: Performed By: #### 4 8716 ####[facility] [place] [place] [facility] [address] [address] [id number] [facility] LACTIC ACID, WHOLE BLOOD 0.8 mmol/L Normal 0.6-2.0 [facility] Comment on above: Performed By: #### 4 8716 ####[facility] [place] [place] [facility] [address] [address] [id number] [facility] METHEMOGLOBIN < Normal 0.0-2.0 [facility] Comment on above: Performed By: #### 4 8716 ####[facility] [address] [address] [id number] [facility] O2HB 98.1 % High 94.0-98.0 [facility] Comment on above: Performed By: #### 4 8716 ####[facility] [address] [address] [id number] [facility] Oxygen saturation in Blood 99.5 % High 92.0-99.0 [facility] Comment on above: Performed By: #### 4 8716 ####[facility] [address] [address] [id number] [facility] PCO2 ARTERIAL 40.1 mm Hg Normal 35.0-45.0 [facility] Comment on above: Performed By: #### 4 8716 ####[facility] [address] [address] [id number] [facility] PEEP RAD 8 [facility] Comment on above: Performed By: #### 4 8716 ####[facility] [address] [address] [id number] [facility] PH ARTERIAL 7.32 Low 7.35-7.45 [facility] Comment on above: Performed By: #### 4 8716 ####[facility] [address] [address] [id number] [facility] PO2 ARTERIAL 152 mm Hg High 75-85 [facility] Comment on above: Performed By: #### 4 8716 ####[facility] [address] [address] [id number] [facility] Potassium [Moles/Vol] 3.8 mmol/L Normal 3.5-5.1 [facility] Comment on above: Performed By: #### 4 8716 ####[facility] [address] [address] [id number] [facility] RESP RATE RAD 16 [facility] Comment on above: Performed By: #### 4 8716 ####[facility] [address] [address] [id number] [facility] Sodium [Moles/Vol] 130 mmol/L Low 135-145 [facility] Comment on above: Performed By: #### 4 8716 ####[facility] [address] [address] [id number] [facility] TIDAL VOLUME RAD 450 [facility] Comment on above: Performed By: #### 4 8716 ####[facility] [address] [address] [id number] [facility] POC GLUCOSE - [facility] 025 Glucose [Mass/Vol] 121 mg/dL [facility] 65-99 [facility] Comment on above: Performed By: #### 4 6932 ####[facility] [address] [address] [id number] [facility] Glucose [Mass/Vol] 114 mg/dL [address] Comment on above: Performed By: #### 4 6932 ####[facility] [address] [address] [id number] [facility] Glucose [Mass/Vol] 123 mg/dL [address] Comment on above: Performed By: #### 4 6932 ####[facility] [address] [address] [id number] [facility] Glucose [Mass/Vol] 133 mg/dL [address] Comment on above: Performed By: #### 4 6932 ####[facility] [address] [address] [id number] [facility] Urine Cultureon 01-23-2025 URC Culture exhibits no growth. [facility] Comment on above: Performed By: #### L 509.7001, L100.0100, L503.6005, L503.7505, L501.3620, L500.2500, L501.5200, L500.3400 #### [facility] [address] [place], [address] VANCOMYCIN LEVEL, RANDOMon 0 01-23-2025 VANCOMYCIN RANDOM 11.5 mcg/mL [facility] Comment on above: Order Comment: As of 02/2022 vancomycin dosing for [facility] inpatients will be done by Bayesian dosing software rather than off traditional trough values. Please contact the site specific inpatient pharmacy before making dose changes off of trough values alone for admitted patients.No established reference range. Performed By: #### 4 [id number] ####[facility] [address], [place] [address] Wojciech Oneal M.D. [id number] XR CHEST PA/APon 01-23-2025 XR CHEST PA/AP [facility] Comment on above: Order Comment: Injur y/Trauma or Illness?:Illness/OtherHow long have you had these symptoms (acute/chronic)?:AcuteReason for exam?:Respiratory statusHistory of cancer?:unkSurgeries, chemotherapy, or radiation?:unkType of Exam?:InitialAdditional signs and symptoms?:na 12 Lead EKGon 01-22-2025 12 [address] [facility] Cardiovascular Services [address] [place] [address] 12 Lead EKG 01/22/25 0512 MR#: [id number] Acct: [id number] Name: JAK TANNER Rep #: [id number] : 1955 69 From: Austin Ryan MD [...] replaced Atrial fibrillation Confirmed by Austin Ryan ([id number]), manager editorial ELVA YIP ([id number]) on 01/27/2025 5:48:47 AM Referred By: CRISTAL Confirmed By: Austin Ryan 01/27/25 0548 Date Austin Ryan MD CC: See Bee DO; [facility] Signed Normal [facility] ABORH VERIFICATIONon 025 ABO and Rh group Nom (Bld) Blood group O Rh(D) positive [facility] Comment on above: Performed By: #### 3 [id number] ####[facility] [place] [place] [facility] [address] [facility] [address] Radha Kelsey MD [id number] GMCTS ABO and Rh group Nom (Bld) ABO/Rh Verification [facility] Comment on above: Result Comment: Theresa ent's ABO/Rh is verified. Performed By: #### 4 [id number] ####[facility] [place] [place] [facility] [address] [address] Radha Kelsey MD [id number] [facility] Absolute lymphocyte countOrd ered By: See Bee on 01-22-2025 Lymphocytes Auto (Unsp spec) [#/Vol] 0.80 10*3/uL Low 0.83-4.51 [facility] Absolute neutrophil countOrd ered By: See Bee on 01-22-2025 Neutrophils (Bld) [#/Vol] 23.6 10*3/uL High 2.0-7.7 [facility] Anion gap in Serum or Plasma Ordered By: See Bee on 01-22-2025 Anion gap [Moles/Vol] 16 mmol/L High 5-15 [facility] BASIC METABOLIC PANELon 01-12 Anion gap [Moles/Vol] 19 mmol/L Normal 10-20 [facility] Comment on above: Order Comment: [facility] has implemented the eGFR calculation approach that does not have a coefficient for race that conforms to the NKF-ASN Task Force Recommendations. Performed By: #### 4 [id number] ####[facility] [place] [place] [facility] [address] [id number] Wojciech Oneal M.D. [id number] Calcium [Mass/Vol] 7.5 mg/dL Low 8.4-10.2 [facility] Comment on above: Order Comment: [facility] has implemented the eGFR calculation approach that does not have a coefficient for race that conforms to the NKF-ASN Task Force Recommendations. Performed By: #### 4 [id number] ####[facility] [place] [place] [facility] [address] [id number] Wojciech Oneal M.D. [id number] Chloride [Moles/Vol] 97 mmol/L Low 98-108 [facility] Comment on above: Order Comment: [facility] has implemented the eGFR calculation approach that does not have a coefficient for race that conforms to the NKF-ASN Task Force Recommendations. Performed By: #### 4 [id number] ####[facility] [place] [place] [facility] [address] [address] Wojciech Oneal M.D. [id number] Creatinine [Mass/Vol] 3.62 mg/dL High 0.80-1.30 [facility] Comment on above: Order Comment: [facility] has implemented the eGFR calculation approach that does not have a coefficient for race that conforms to the NKF-ASN Task Force Recommendations. Performed By: #### 4 [id number] ####[facility] [place] [place] [facility] [address] [address] Wojciech Oneal M.D. [id number] EGFR 17 mL/min/1.73 m2 Low >=60 [facility] Comment on above: Order Comment: [facility] has implemented the eGFR calculation approach that does not have a coefficient for race that conforms to the NKF-ASN Task Force Recommendations. Result Comment: Chelsea mated GFR was calculated using the 2020 CKD-EPI creatinine equation. Performed By: #### 4 [id number] ####[facility] [place] [place] [facility] [address] [address] Wojciech Oneal M.D. [id number] Glucose [Mass/Vol] 131 mg/dL High 65-99 [facility] Comment on above: Order Comment: [facility] has implemented the eGFR calculation approach that does not have a coefficient for race that conforms to the NKF-ASN Task Force Recommendations. Performed By: #### 4 [id number] ####[facility] [place] [place] [facility] [address] [id number] Wojciech Oneal M.D. [id number] HCO3 (Bld) [Moles/Vol] 18 mmol/L Low 21-32 [facility] Comment on above: Order Comment: [facility] has implemented the eGFR calculation approach that does not have a coefficient for race that conforms to the NKF-ASN Task Force Recommendations. Performed By: #### 4 [id number] ####[facility] [place] [place] [facility] [address] [id number] Wojciech Oneal M.D. [id number] Potassium [Moles/Vol] 4.0 mmol/L Normal 3.5-5.1 [facility] Comment on above: Order Comment: [facility] has implemented the eGFR calculation approach that does not have a coefficient for race that conforms to the NKF-ASN Task Force Recommendations. Performed By: #### 4 [id number] ####[facility] [place] [place] [facility] [address] [address] Wojciech Oneal M.D. [id number] Sodium [Moles/Vol] 130 mmol/L Low 135-145 [facility] Comment on above: Order Comment: [facility] has implemented the eGFR calculation approach that does not have a coefficient for race that conforms to the NKF-ASN Task Force Recommendations. Performed By: #### 4 [id number] ####[facility] [place] [place] [facility] [address] [address] Wojciech Oneal M.D. [id number] Urea nitrogen [Mass/Vol] 62 mg/dL High 8-25 [facility] Comment on above: Order Comment: [facility] has implemented the eGFR calculation approach that does not have a coefficient for race that conforms to the NKF-ASN Task Force Recommendations. Performed By: #### 4 [id number] ####[facility] [place] [place] [facility] [address] [address] Wojciech Oneal M.D. [id number] Urea nitrogen/Creatinine [Mass ratio] 17.1 mg/mg Normal 10.0-20.0 [facility] Comment on above: Order Comment: [facility] has implemented the eGFR calculation approach that does not have a coefficient for race that conforms to the NKF-ASN Task Force Recommendations. Performed By: #### 4 [id number] ####[facility] [place] [place] [facility] [address] [address] Wojciech Oneal M.D. [id number] BETA-HYDROXYBUTYRATEon 01-22 BETA-HYDROXYBUTYRATE 0.4 mmol/L High 0.0-0.3 [facility] Comment on above: Performed By: #### 4 5139 ####[facility] [place] [place] [facility] [address] [id number] Wojciech Oneal M.D. [id number] BLOOD CULTURE AEROBIC/ANAERO BICon 01-22-2025 BLOOD CULTURE AEROBIC/ANAEROBIC BLOOD CULTURE No Growth after 5 days Normal [facility] Comment on above: Performed By: #### 4 4014 ####[facility] [address] [address] Tuan Ascencio M.D. [id number] BUN/creatinine ratioOrdered By: See Bee on 01-22-2025 Urea nitrogen/Creatinine [Mass ratio] 16.5 mg/mg - [facility] Basic Metabolic Profile (BMP )on 01-22-2025 BUN/CRE 16.5 RATIO Normal - [facility] Comment on above: Order Comment: REDRA W. PREVIOUS SPECIMEN REJECTED DUE TO RESULTS NOT COMING THROUGH AND SEEM TO BE ERRONEOUS. 01/22/25219 Mora Patel. NOTIFIED DELMY FOR REDRAW Performed By: #### L 509.7001, L100.0100, L503.6005, L503.7505, L501.3620, L500.2500, L501.5200, L500.3400 #### [facility] [address] [place], [address] Calcium [Mass/Vol] 7.2 mg/dL Low 7.6-11.0 [facility] Comment on above: Order Comment: REDRA W. PREVIOUS SPECIMEN REJECTED DUE TO RESULTS NOT COMING THROUGH AND SEEM TO BE ERRONEOUS. 01/22/25219 Mora Patel. NOTIFIED DELMY FOR REDRAW Performed By: #### L 509.7001, L100.0100, L503.6005, L503.7505, L501.3620, L500.2500, L501.5200, L500.3400 #### [facility] [address] [place], [address] Chloride [Moles/Vol] 95 mmol/L Low 98-108 [facility] Comment on above: Order Comment: REDRA W. PREVIOUS SPECIMEN REJECTED DUE TO RESULTS NOT COMING THROUGH AND SEEM TO BE ERRONEOUS. 01/22/25219 Mora Patel. NOTIFIED DELMY FOR REDRAW Performed By: #### L 509.7001, L100.0100, L503.6005, L503.7505, L501.3620, L500.2500, L501.5200, L500.3400 #### [facility] [address] [place], [address] CO2 [Moles/Vol] 18.1 mmol/L Low 21.0-32.0 [facility] Comment on above: Order Comment: REDRA W. PREVIOUS SPECIMEN REJECTED DUE TO RESULTS NOT COMING THROUGH AND SEEM TO BE ERRONEOUS. 01/22/25219 Mora Patel. NOTIFIED DELMY FOR REDRAW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 included)... Normal [facility] Erythrocyte distribution wid th ratioOrdered By: See Bee on 01-22-2025 Erythrocyte distribution width (RBC) [Ratio] 12.5 % 11.6-14.6 [facility] Erythrocyte distribution wid th standard deviationOrdered By: See Cristal on 01-22-2025 Erythrocyte distribution width (RBC) [Ratio] 40.0 fl 35.1-43.9 [facility] Extremity Lower without Cont raon 01-22-2025 Extremity Lower without Contra [facility] Imaging Services [address] [place] [address] Extremity Lower without Contra MR#: [id number] Acct: [id number] Name: JAK TANNER Rep #: [id number] : 1955 M 69 From: Bayron Hunt MD PCP: [facility] Status: PRE ER Study: Extremity Lower without Contra Date of Exam: 0 01/22/25 Exam# [id number] Ordering Dr: See Bee DO PROCEDURE: EXTREMITY [...] degenerative changes of both hips. Reading Location: [facility] CC: See Bee DO; [facility] Senior Trial Attorney: Signed Normal [facility] Glomerular filtration rate ( GFR) estimation/1.73 sq m using serum, plasma, or whole bOrdered By: See Bee on 01-22-2025 GFR/1.73 sq M.predicted among non-blacks MDRD (S/P/Bld) [Vol rate/Area] 18 mL/min/{1.73_m2} Low >60 [facility] Comment on above: mL/min/1.73m2 CKD-EP I Creatinine Equation (2020) H AND Lui 01-22-2025 H AND P Normal [facility] HEMOGLOBIN A1Con 01-22-2025 Glucose [Mass/Vol] 114 mg/dL Normal 74-114 [facility] Comment on above: Performed By: #### 4 8202 ####[facility] [place] [address] [address] Wojciech Oneal M.D. [id number] HbA1c (Bld) [Mass fraction] 5.6 % Normal 4.2-5.6 [facility] Comment on above: Performed By: #### 4 8202 ####[facility] [address] [address] Wojciech Oneal M.D. [id number] Hematocrit Auto (Bld) [Volum e fraction]Ordered By: See Bee on 01-22-2025 Hematocrit (Bld) [Volume fraction] 41.6 % 40-54 [facility] Hemoglobin measurementOrdere d By: See Bee on 01-22-2025 Hemoglobin (Bld) [Mass/Vol] 14.1 g/dL 13.0-16.5 [facility] Hyaline casts LM.LPF (Urine sed) [#/Area]Ordered By: See Bee on 01-22-2025 Hyaline casts (Urine sed) [#/Area] 0 /[LPF] 0-5 [facility] Ketones Test strip Ql (U)Ord ered By: See Bee on 01-22-2025 Ketones Ql (U) 5 mg/dl High Negative [facility] L509.7001on 01-22-2025 Procalcitonin 1.73 ng/mL High <=0.10 [facility] Comment on above: Result Comment: Inte rpretation: [...] L503.6005, L503.7505, L501.3620, L500.2500, L501.5200, L500.3400 #### [facility] [address] [place], [address] Procalcitonin 1.95 ng/mL High <=0.10 [facility] Comment on above: Order Comment: REDRA W. [...] L503.6005, L503.7505, L501.3620, L500.2500, L501.5200, L500.3400 #### [facility] [address] [place], [place], [id number] LACTIC ACID, PLASMAon 2024 LACTIC ACID, PLASMA 1.2 mmol/L Normal 0.6-2.0 [facility] Comment on above: Performed By: #### 4 6053 ####[facility] [address], [place] [address] Wojciech Oneal M.D. [id number] LACTIC ACID, PLASMA 2.0 mmol/L Normal 0.6-2.0 [facility] Comment on above: Performed By: #### 4 6053 ####[facility] [place] [address], [place] [address] Wojciech Oneal M.D. [id number] LACTIC ACID, PLASMA 1.5 mmol/L Normal 0.6-2.0 [facility] Comment on above: Performed By: #### 4 6053 ####[facility] [place] [address], [place] [address] Wojciech Oneal M.D. [id number] Laboratory - Chemistry and C hemistry - challengeOrdered By: See Bee on 01-22-2025 AST [Catalytic activity/Vol] 124 U/L High <38 [facility] Lactic Acidon 01-22-2025 Lactate [Moles/Vol] 1.3 mmol/L Normal 0.0-2.0 [facility] Comment on above: Performed By: #### L 509.7001, L100.0100, L503.6005, L503.7505, L501.3620, L500.2500, L501.5200, L500.3400 #### [facility] [address] [place], [place], [address] Lactate [Moles/Vol] 2.6 mmol/L Invalid Interpretation Code 0.0-2.0 [facility] Comment on above: Order Comment: Y Result Comment: Crit ical Result(s) Called at: 01-22-25 00:43 TO [facility] EDWARDS by:MORA PATEL??Results read back by same. Performed By: #### L 509.7001, L100.0100, L503.6005, L503.7505, L501.3620, L500.2500, L501.5200, L500.3400 #### [facility] [address] [place], [place], [address] Lactic acid measurementOrder ed By: See Bee on 01-22-2025 Lactate [Moles/Vol] 1.3 mmol/L 0.0-2.0 [facility] Liver Profileon 01-22-2025 Albumin [Mass/Vol] 2.4 g/dL Low 3.4-4.8 [facility] Comment on above: Order Comment: REDRA W. PREVIOUS SPECIMEN REJECTED DUE TO RESULTS NOT COMING THROUGH AND SEEM TO BE ERRONEOUS. 01/22/25219 Mora Patel. NOTIFIED DELMY FOR REDRAW Result Comment: AMENDED REPORT 01/22/25631 ALB previously reported as: 2.6 L g/dL Performed By: #### L 509.7001, L100.0100, L503.6005, L503.7505, L501.3620, L500.2500, L501.5200, L500.3400 #### [facility] [address] [place], [address] Globulin (S) [Mass/Vol] 3.5 g/dL Normal 2.2-4.2 [facility] Comment on above: Order Comment: REDRA W. PREVIOUS SPECIMEN REJECTED DUE TO RESULTS NOT COMING THROUGH AND SEEM TO BE ERRONEOUS. 01/22/25219 Mora Patel. NOTIFIED DELMY FOR REDRAW Result Comment: AMENDED REPORT 01/22/25631 GLOB previously reported as: 3.3 g/dL Performed By: #### L 509.7001, L100.0100, L503.6005, L503.7505, L501.3620, L500.2500, L501.5200, L500.3400 #### [facility] [address], [address] ALT [Catalytic activity/Vol] 65 U/L High <=46 [facility] Comment on above: Result Comment: REDR AW. PREVIOUS SPECIMEN REJECTED DUE TO RESULTS NOT COMING THROUGH AND SEEM TO BE ERRONEOUS. 01/22/25 0220 Mora Patel. NOTIFIED DELMY FOR REDRAW Performed By: #### L 509.7001, L100.0100, L503.6005, L503.7505, L501.3620, L500.2500, L501.5200, L500.3400 #### [facility] [address] [place], [address] ALB Normal 3.4-4.8 [facility] Comment on above: Result Comment: MOVE D TO C58 Performed By: #### L 500.3400 #### [facility] [address] [place], [address] ALK PHOS Normal 40-129 [facility] Comment on above: Result Comment: MOVE D TO C58 Performed By: #### L 500.3400 #### [facility] [address] [place], [address] ALT Normal <=46 [facility] Comment on above: Result Comment: MOVE D TO C58 Performed By: #### L 500.3400 #### [facility] [address] [place], [address] AST Normal <=37 [facility] Comment on above: Result Comment: MOVE D TO C58 Performed By: #### L 500.3400 #### [facility] [address] [place], [address] D BILI Normal 0.00-0.30 [facility] Comment on above: Result Comment: MOVE D TO C58 Performed By: #### L 500.3400 #### [facility] [address] [place], [address] T BILI Normal 0.00-1.30 [facility] Comment on above: Result Comment: MOVE D TO C58 Performed By: #### L 500.3400 #### [facility] [address] [place], [address] T PROT Normal 5.9-8.4 [facility] Comment on above: Result Comment: MOVE D TO C58 Performed By: #### L 500.3400 #### [facility] [address] [place], [address] ALB Normal 3.4-4.8 [facility] Comment on above: Result Comment: REDR AW. PREVIOUS SPECIMEN REJECTED DUE TO RESULTS NOT COMING THROUGH AND SEEM TO BE ERRONEOUS. 01/22/25219 Mora Patel. NOTIFIED DELMY FOR REDRAW Performed By: #### L 509.7001, L100.0100, L503.6005, L503.7505, L501.3620, L500.2500, L501.5200, L500.3400 #### [facility] [address] [place], [address] ALK PHOS Normal 40-129 [facility] Comment on above: Result Comment: REDR AW. PREVIOUS SPECIMEN REJECTED DUE TO RESULTS NOT COMING THROUGH AND SEEM TO BE ERRONEOUS. 01/22/25219 Mora Patel. NOTIFIED DELMY FOR REDRAW Performed By: #### L 509.7001, L100.0100, L503.6005, L503.7505, L501.3620, L500.2500, L501.5200, L500.3400 #### [facility] [address] [place], [address] AST Normal <=37 [facility] Comment on above: Result Comment: REDR AW. PREVIOUS SPECIMEN REJECTED DUE TO RESULTS NOT COMING THROUGH AND SEEM TO BE ERRONEOUS. 01/22/25219 Mora Patel. NOTIFIED DELMY FOR REDRAW Performed By: #### L 509.7001, L100.0100, L503.6005, L503.7505, L501.3620, L500.2500, L501.5200, L500.3400 #### [facility] [address] [place], [address] D BILI Normal 0.00-0.30 [facility] Comment on above: Result Comment: REDR AW. PREVIOUS SPECIMEN REJECTED DUE TO RESULTS NOT COMING THROUGH AND SEEM TO BE ERRONEOUS. 01/22/25219 Mora Patel. NOTIFIED DELMY FOR REDRAW Performed By: #### L 509.7001, L100.0100, L503.6005, L503.7505, L501.3620, L500.2500, L501.5200, L500.3400 #### [facility] [address] [place], [address] T BILI Normal 0.00-1.30 [facility] Comment on above: Result Comment: REDR AW. PREVIOUS SPECIMEN REJECTED DUE TO RESULTS NOT COMING THROUGH AND SEEM TO BE ERRONEOUS. 01/22/25219 Mora Patel. NOTIFIED DELMY FOR REDRAW Performed By: #### L 509.7001, L100.0100, L503.6005, L503.7505, L501.3620, L500.2500, L501.5200, L500.3400 #### [facility] [address] [place], [address] T PROT Normal 5.9-8.4 [facility] Comment on above: Result Comment: REDR AW. PREVIOUS SPECIMEN REJECTED DUE TO RESULTS NOT COMING THROUGH AND SEEM TO BE ERRONEOUS. 01/22/25219 Mora Patel. NOTIFIED DELMY FOR REDRAW Performed By: #### L 509.7001, L100.0100, L503.6005, L503.7505, L501.3620, L500.2500, L501.5200, L500.3400 #### [facility] [address] [place], [address] MAGNESIUM LEVELon 01-22-2025 Magnesium [Mass/Vol] 2.2 mg/dL Normal 1.6-2.4 [facility] Comment on above: Performed By: #### 4 6109 ####[place] [address] [address] Wojciech Oneal M.D. [id number] MANUAL DIFFERENTIALon 2024 BASOPHILS - ABS (DIFF) 0.00 K/mcL Normal 0.00-0.30 [facility] Comment on above: Performed By: #### 4 5456 ####[place] [address] [address] Wojciech Oneal M.D. [id number] BASOPHILS - REL (DIFF) 0.0 % Normal [facility] Comment on above: Performed By: #### 4 5456 ####[place] [address] [address] Wojciech Oneal M.D. [id number] EOSINOPHILS - ABS (DIFF) 0.00 K/mcL Normal 0.00-0.50 [facility] Comment on above: Performed By: #### 4 5456 ####[place] [address] [address] Wojciech Oneal M.D. [id number] EOSINOPHILS - REL (DIFF) 0.0 % [facility] Comment on above: Performed By: #### 4 5456 ####[place] [address] [address] [address] Wojciech Oneal M.D. [id number] LYMPHOCYTES - ABS (DIFF) 0.46 K/mcL Low 0.90-4.00 [facility] Comment on above: Performed By: #### 4 5456 ####[place] [address] [address] Wojciech Oneal M.D. [id number] LYMPHOCYTES - REL (DIFF) 4.0 % [facility] Comment on above: Result Comment: This is a corrected result. Previous result was 2.0 % on 01/22/2025 at 1732 EDT Performed By: #### 4 5456 ####[place] [address] [address] Wojciech Oneal M.D. [id number] METAMYELOCYTES-REL (DIFF) 1.0 % [facility] Comment on above: Performed By: #### 4 5456 ####[facility] [place] [place] [facility] [address] [address] Wojciech Oneal M.D. [id number] MONOCYTES - ABS (DIFF) 1.60 K/mcL High 0.30-0.90 [facility] Comment on above: Performed By: #### 4 5456 ####[facility] [place] [place] [facility] [address] [address] Wojciech Oneal M.D. [id number] MONOCYTES - REL (DIFF) 7.0 % Normal [facility] Comment on above: Performed By: #### 4 5456 ####[facility] [place] [place] [facility] [address] [address] Wojciech Oneal M.D. [id number] MYELOCYTES RELATIVE PERCENT 2.0 % [facility] Comment on above: Performed By: #### 4 5456 ####[facility] [place] [place] [facility] [address] [address] Wojciech Oneal M.D. [id number] NEUTROPHILS - ABS (DIFF) 20.76 K/mcL High 1.70-7.00 [facility] Comment on above: Performed By: #### 4 5456 ####[facility] [place] [place] [facility] [address] [address] Wojciech Oneal M.D. [id number] NEUTROPHILS - REL (DIFF) 86.0 % [facility] Comment on above: Performed By: #### 4 5456 ####[facility] [place] [place] [facility] [address] [address] Wojciech Oneal M.D. [id number] PROMYELOCYTES-REL (DIFF) Corrected [facility] Comment on above: Result Comment: This is a corrected result. Previous result was 2.0 % on 01/22/2025 at 1732 EDT Performed By: #### 4 5456 ####[facility] [place] [place] [facility] [address] [address] Wojciech Oneal M.D. [id number] BASOPHILS - ABS (DIFF) 0.00 K/mcL Normal 0.00-0.30 [facility] Comment on above: Performed By: #### 4 5456 ####[facility] [address] [address] Tuan Ascencio M.D. [id number] BASOPHILS - REL (DIFF) 0.0 % Normal [facility] Comment on above: Performed By: #### 4 5441 ####[facility] [address] [place] [address] Tuan Ascencio M.D. [id number] EOSINOPHILS - ABS (DIFF) 0.00 K/mcL Normal 0.00-0.50 [facility] Comment on above: Performed By: #### 4 5446 ####[facility] [address] [place] [address] Tuan Ascencio M.D. [id number] EOSINOPHILS - REL (DIFF) 0.0 % [facility] Comment on above: Performed By: #### 4 5405 ####[place] [address] Tuan Ascencio M.D. [id number] LYMPHOCYTE ATYPICAL - REL (DIFF) 1.0 % [facility] Comment on above: Performed By: #### 4 5417 ####[place] [address] Tuan Ascencio M.D. [id number] LYMPHOCYTES - ABS (DIFF) 1.13 K/mcL Normal 0.90-4.00 [facility] Comment on above: Performed By: #### 4 3336 ####[facility] [address] [place] [address] Tuan Ascencio M.D. [id number] LYMPHOCYTES - REL (DIFF) 4.0 % [facility] Comment on above: Performed By: #### 4 4798 ####[facility] [address] [place] [address] Tuan Ascencio M.D. [id number] METAMYELOCYTES-REL (DIFF) 2.0 % [facility] Comment on above: Performed By: #### 4 9917 ####[facility] [address] [place], [place] [id number] Tuan Ascencio M.D. [id number] MONOCYTES - ABS (DIFF) 1.35 K/mcL High 0.30-0.90 [facility] Comment on above: Performed By: #### 4 5456 ####[facility] [address] [place], [place] [address] Tuan Ascencio M.D. [id number] MONOCYTES - REL (DIFF) 6.0 % Normal [facility] Comment on above: Performed By: #### 4 5456 ####[facility] [address] [place], [place] [address] Tuan Ascencio M.D. [id number] MYELOCYTES RELATIVE PERCENT 3.0 % [facility] Comment on above: Performed By: #### 4 5456 ####[facility] [address] [place], [place] [address] Tuan Ascencio M.D. [id number] NEUTROPHILS - ABS (DIFF) 20.05 K/mcL High 1.70-7.00 [facility] Comment on above: Result Comment: Neut rophilia with Left Shift Confirmed. Performed By: #### 4 5456 ####[place] [id number] Tuan Ascencio M.D. [id number] NEUTROPHILS - REL (DIFF) 84.0 % [facility] Comment on above: Performed By: #### 4 5456 ####[place] [id number] Tuan Ascencio M.D. [id number] MCV (mean corpuscular volume ) determinationOrdered By: See Bee on 01-22-2025 MCV (RBC) [Entitic vol] 87.8 fL 80-94 [facility] MORPHOLOGYon 01-22-2025 OVAL SCAN Moderate Normal [facility] Comment on above: Performed By: #### L AB295 ####[facility] [place] [place] [facility] [address] [address] Wojciech Oneal M.D. [id number] PLATELET ESTIMATE Normal [facility] Comment on above: Performed By: #### L AB295 ####[facility] [place] [place] [facility] [address] [address] Wojciech Oneal M.D. [id number] PLATELETS LARGE [facility] Comment on above: Performed By: #### L AB295 ####[facility] [place] [place] [facility] [address] [address] Wojciech Oneal M.D. [id number] POLY SCAN [facility] Comment on above: Performed By: #### L AB295 ####[facility] [place] [place] [facility] [address] [address] Wojciech Oneal M.D. [id number] RBC MORPH SCAN See [facility] Comment on above: Result Comment: RBC Indices confirmed with manual peripheral smear review. Performed By: #### L AB295 ####[facility] [place] [place] [facility] [address] [address] Wojciech Oneal M.D. [id number] OVAL SCAN [facility] Comment on above: Performed By: #### L AB295 ####[facility] [address] [place] [address] Tuan Ascencio M.D. [id number] PLATELET CLUMPS [facility] Comment on above: Performed By: #### L AB295 ####[facility] [address] [place] [address] Tuan Ascencio M.D. [id number] PLATELET ESTIMATE Normal [facility] Comment on above: Performed By: #### L AB295 ####[facility] [address] [place] [address] Tuan Ascencio M.D. [id number] PLATELETS LARGE [facility] Comment on above: Performed By: #### L AB295 ####[facility] [address] [place] [address] Tuan Ascencio M.D. [id number] POLY SCAN Few [facility] Comment on above: Performed By: #### L AB295 ####[facility] [address] [place] [address] Tuan Ascencio M.D. [id number] RBC MORPH SCAN See Comment [facility] Comment on above: Result Comment: RBC Indices confirmed with manual peripheral smear review. Performed By: #### L AB295 ####[facility] [address] [place] [address] Tuan Ascencio M.D. [id number] VACUOLATED GRANULOCYTES Present [facility] Comment on above: Performed By: #### L AB295 ####[facility] [address] [place] [address] Tuan Ascencio M.D. [id number] Magnesiumon 01-22-2025 Magnesium [Mass/Vol] 2.1 mg/dL Normal 1.5-2.2 [facility] Comment on above: Performed By: #### L 509.7001, L100.0100, L503.6005, L503.7505, L501.3620, L500.2500, L501.5200, L500.3400 #### [facility] [address] [place], [address] Magnesium [Mass/Vol] 2.5 mg/dL High 1.5-2.2 [facility] Comment on above: Order Comment: REDRA W. [...] L503.6005, L503.7505, L501.3620, L500.2500, L501.5200, L500.3400 #### [facility] [address] [place], [address] Magnesium measurement (mass/ volume)Ordered By: See Bee on 01-22-2025 Magnesium (Unsp spec) [Mass/Vol] 2.1 mg/dL 1.5-2.2 [facility] Mean corpuscular hemoglobin (MCH) determinationOrdered By: See Bee on 01-22-2025 MCH (RBC) [Entitic mass] 29.7 pg 27.0-32.0 [facility] Mean corpuscular hemoglobin concentration (MCHC) determinationOrdered By: See Bee on 01-22-2025 MCHC (RBC) [Mass/Vol] 33.9 g/dL 32-36 [facility] Mean platelet volume determi nationOrdered By: See Bee on 01-22-2025 Platelet mean volume (Bld) [Entitic vol] 9.3 fL 6.2-12.0 [facility] Microscopic analysis of urin e for red blood cells (RBC)Ordered By: See Bee on 01-22-2025 Microscopic analysis of urine for red blood cells (RBC) 0-5 SEEN /hpf 0-5 [facility] Mucus LM Ql (Urine sed)Order ed By: See Bee on 01-22-2025 Mucus Ql (Urine sed) 0 SEEN /hpf [facility] Natriuretic peptide.B prohor evaristo N-Terminal [Mass/volume] in Serum or PlasmaOrdered By: See Bee on 01-22-2025 Natriuretic peptide.B prohormone N-Terminal [Mass/Vol] 1427 pg/mL High <900 [facility] Comment on above: Heart Failure Unlike ly: < 300 pg/mLHeart Failure Likely< 50 Years: > 450 pg/mL50-75 Years: > 900 pg/mL>75 Years: > 1800 pg/mL Nitrite Test strip Ql (U)Ord ered By: See Bee on 01-22-2025 Nitrite Ql (U) Positive High Negative [facility] OP NOTEon 01-22-2025 OP NOTE Normal [facility] PERIPHERAL SMEAR REVIEW ([facility] ONLY)on 01-22-2025 SMEAR REVIEW See Comment Normal [facility] Comment on above: Result Comment: Smea r reviewed for possible immature cells. Performed By: #### C 71429 ####[facility] [address] [address] Tuan Ascencio M.D. [id number] PHOSPHORUSon 01-22-2025 Phosphate [Mass/Vol] 6.6 mg/dL High 2.3-3.7 [facility] Comment on above: Performed By: #### 4 6299 ####[facility] [address] [address] Wojciech Oneal M.D. [id number] POC ARTERIAL BLOOD GAS PANEL -[facility] 01-22-2025 BASE EXCESS, ARTERIAL -7.7 Low -2.0-2.0 [facility] Comment on above: Performed By: #### 4 8716 ####[facility] [address] [address] [id number] [facility] CALCIUM IONIZED 4.0 mg/dL Low 4.5-5.3 [facility] Comment on above: Performed By: #### 4 8716 ####[facility] [address] [address] [id number] [facility] CARBOXYHEMOGLOBIN 1.3 % of total Hb Normal <=1.5 [facility] Comment on above: Result Comment: Refe rence Ranges:[facility] Non-smokers: <1.5%Smokers: 1.5-5.0%Heavy Smokers: 5.0-9.0% Performed By: #### 4 8716 ####[facility] [address] [address] [id number] [facility] Chloride [Moles/Vol] 105 mmol/L Normal 98-108 [facility] Comment on above: Performed By: #### 4 8716 ####[facility] [address] [address] [id number] [facility] FIO2 50 Normal [facility] Comment on above: Performed By: #### 4 8716 ####[facility] [address] [address] [id number] [facility] Glucose [Mass/Vol] 120 mg/dL High 65-99 [facility] Comment on above: Performed By: #### 4 8716 ####[facility] [address] [address] [id number] [facility] HCO3 (Bld) [Moles/Vol] 19.2 mmol/L Low 22.0-26.0 [facility] Comment on above: Performed By: #### 4 8716 ####[facility] [place] [place] [facility] [address] [address] [id number] [facility] Hematocrit (Bld) [Volume fraction] 29.9 % Low 41.0-53.0 [facility] Comment on above: Performed By: #### 4 8716 ####[facility] [place] [place] [facility] [address] [address] [id number] [facility] Hemoglobin (Bld) [Mass/Vol] 9.8 g/dL Low 13.5-17.5 [facility] Comment on above: Performed By: #### 4 8716 ####[facility] [place] [place] [facility] [address] [address] [id number] [facility] LACTIC ACID, WHOLE BLOOD 0.9 mmol/L Normal 0.6-2.0 [facility] Comment on above: Performed By: #### 4 8716 ####[facility] [place] [place] [facility] [address] [address] [id number] [facility] METHEMOGLOBIN < Normal 0.0-2.0 [facility] Comment on above: Performed By: #### 4 8716 ####[facility] [place] [place] [facility] [address] [address] [id number] [facility] O2HB 97.6 % Normal 94.0-98.0 [facility] Comment on above: Performed By: #### 4 8716 ####[facility] [place] [place] [facility] [address] [address] [id number] [facility] Oxygen saturation in Blood 99.3 % High 92.0-99.0 [facility] Comment on above: Performed By: #### 4 8716 ####[facility] [address] [address] [id number] [facility] PCO2 ARTERIAL 43.9 mm Hg Normal 35.0-45.0 [facility] Comment on above: Performed By: #### 4 8716 ####[facility] [address] [address] [id number] [facility] PEEP RAD 10 [facility] Comment on above: Performed By: #### 4 8716 ####[facility] [address] [address] [id number] [facility] PH ARTERIAL 7.25 Low 7.35-7.45 [facility] Comment on above: Performed By: #### 4 8716 ####[facility] [address] [address] [id number] [facility] PO2 ARTERIAL 162 mm Hg High 75-85 [facility] Comment on above: Performed By: #### 4 8716 ####[facility] [address] [address] [id number] [facility] Potassium [Moles/Vol] 3.6 mmol/L Normal 3.5-5.1 [facility] Comment on above: Performed By: #### 4 8716 ####[facility] [address] [address] [id number] [facility] RESP RATE RAD 16 [facility] Comment on above: Performed By: #### 4 8716 ####[facility] [address] [address] [id number] [facility] Sodium [Moles/Vol] 132 mmol/L Low 135-145 [facility] Comment on above: Performed By: #### 4 8716 ####[facility] [address] [address] [id number] [facility] TIDAL VOLUME RAD 450 [facility] Comment on above: Performed By: #### 4 8716 ####[facility] [address] [address] [id number] [facility] BASE EXCESS, ARTERIAL -7.9 Low -2.0-2.0 [facility] Comment on above: Order Comment: Criti johnie result acted upon time of test. Test performed at bedside. Performed By: #### 4 8716 ####[facility] [address] [address] [id number] [facility] CALCIUM IONIZED 4.3 mg/dL Low 4.5-5.3 [facility] Comment on above: Order Comment: Criti johnie result acted upon time of test. Test performed at bedside. Performed By: #### 4 8716 ####[facility] [place] [place] [facility] [address] [address] [id number] [facility] CARBOXYHEMOGLOBIN 1.3 % of total Hb Normal <=1.5 [facility] Comment on above: Order Comment: Criti johnie result acted upon time of test. Test performed at bedside. Result Comment: Refe rence Ranges:Suburb Non-smokers: <1.5%Smokers: 1.5-5.0%Heavy Smokers: 5.0-9.0% Performed By: #### 4 8716 ####[facility] [place] [place] [facility] [address] [address] [id number] [facility] FIO2 100 Normal [facility] Comment on above: Order Comment: Criti johnie result acted upon time of test. Test performed at bedside. Performed By: #### 4 8716 ####[facility] [place] [place] [facility] [address] [address] [id number] [facility] Glucose [Mass/Vol] 134 mg/dL High 65-99 [facility] Comment on above: Order Comment: Criti johnie result acted upon time of test. Test performed at bedside. Performed By: #### 4 8716 ####[facility] [place] [place] [facility] [address] [address] [id number] [facility] HCO3 (Bld) [Moles/Vol] 20.4 mmol/L Low 22.0-26.0 [facility] Comment on above: Order Comment: Criti johnie result acted upon time of test. Test performed at bedside. Performed By: #### 4 8716 ####[facility] [place] [place] [facility] [address] [address] [id number] [facility] Hematocrit (Bld) [Volume fraction] 33.3 % Low 41.0-53.0 [facility] Comment on above: Order Comment: Criti johnie result acted upon time of test. Test performed at bedside. Performed By: #### 4 8716 ####[facility] [place] [place] [facility] [address] [address] [id number] [facility] Hemoglobin (Bld) [Mass/Vol] 10.8 g/dL Low 13.5-17.5 [facility] Comment on above: Order Comment: Criti johnie result acted upon time of test. Test performed at bedside. Performed By: #### 4 [id number] ####[facility] [place] [place] [facility] [address] [address] [id number] [facility] LACTIC ACID, WHOLE BLOOD 1.7 mmol/L Normal 0.6-2.0 [facility] Comment on above: Order Comment: Criti johnie result acted upon time of test. Test performed at bedside. Performed By: #### 4 [id number] ####[facility] [place] [place] [facility] [address] [address] [id number] [facility] METHEMOGLOBIN 0.8 % Normal 0.0-2.0 [facility] Comment on above: Order Comment: Criti johnie result acted upon time of test. Test performed at bedside. Performed By: #### 4 [id number] ####[facility] [place] [place] [facility] [address] [address] [id number] [facility] O2HB 97.3 % Normal 94.0-98.0 [facility] Comment on above: Order Comment: Criti johnie result acted upon time of test. Test performed at bedside. Performed By: #### 4 [id number] ####[facility] [place] [place] [facility] [address] [address] [id number] [facility] Oxygen saturation in Blood 99.4 % High 92.0-99.0 [facility] Comment on above: Order Comment: Criti johnie result acted upon time of test. Test performed at bedside. Performed By: #### 4 [id number] ####[facility] [place] [place] [facility] [address] [address] [id number] [facility] PCO2 ARTERIAL 57.7 mm Hg High 35.0-45.0 [facility] Comment on above: Order Comment: Criti johnie result acted upon time of test. Test performed at bedside. Performed By: #### 4 [id number] ####[facility] [place] [place] [facility] [address] [address] [id number] [facility] PH ARTERIAL 7.18 Off scale low 7.35-7.45 [facility] Comment on above: Order Comment: Criti johnie result acted upon time of test. Test performed at bedside. Performed By: #### 4 8716 ####[facility] [place] [place] [facility] [address] [address] [id number] [facility] PO2 ARTERIAL 255 mm Hg High 75-85 [facility] Comment on above: Order Comment: Criti johnie result acted upon time of test. Test performed at bedside. Performed By: #### 4 8716 ####[facility] [place] [place] [facility] [address] [address] [id number] [facility] Potassium [Moles/Vol] 3.8 mmol/L Normal 3.5-5.1 [facility] Comment on above: Order Comment: Criti johnie result acted upon time of test. Test performed at bedside. Performed By: #### 4 [id number] ####[facility] [place] [place] [facility] [address] [address] [id number] [facility] Sodium [Moles/Vol] 130 mmol/L Low 135-145 [facility] Comment on above: Order Comment: Criti johnie result acted upon time of test. Test performed at bedside. Performed By: #### 4 [id number] ####[facility] [place] [place] [facility] [address] [address] [id number] [facility] BASE EXCESS, ARTERIAL -10.9 Low -2.0-2.0 [facility] Comment on above: Order Comment: Criti johnie result acted upon time of test. Test performed at bedside. CALCIUM IONIZED 4.3 mg/dL Low 4.5-5.3 [facility] Comment on above: Order Comment: Criti johnie result acted upon time of test. Test performed at bedside. CARBOXYHEMOGLOBIN 1.0 % of total Hb Normal <=1.5 [facility] Comment on above: Order Comment: Criti johnie result acted upon time of test. Test performed at bedside. Result Comment: Refe chingce Ranges:Suburban Non-smokers: <1.5%Smokers: 1.5-5.0%Heavy Smokers: 5.0-9.0% Chloride [Moles/Vol] 103 mmol/L Normal 98-108 [facility] Comment on above: Order Comment: Criti johnie result acted upon time of test. Test performed at bedside. Glucose [Mass/Vol] 135 mg/dL High 65-99 [facility] Comment on above: Order Comment: Criti johnie result acted upon time of test. Test performed at bedside. HCO3 (Bld) [Moles/Vol] 17.6 mmol/L Low 22.0-26.0 [facility] Comment on above: Order Comment: Criti johnie result acted upon time of test. Test performed at bedside. Hematocrit (Bld) [Volume fraction] 31.6 % Low 41.0-53.0 [facility] Comment on above: Order Comment: Criti johnie result acted upon time of test. Test performed at bedside. Hemoglobin (Bld) [Mass/Vol] 10.3 g/dL Low 13.5-17.5 [facility] Comment on above: Order Comment: Criti johnie result acted upon time of test. Test performed at bedside. LACTIC ACID, WHOLE BLOOD 2.6 mmol/L High 0.6-2.0 [facility] Comment on above: Order Comment: Criti johnie result acted upon time of test. Test performed at bedside. METHEMOGLOBIN < Normal 0.0-2.0 [facility] Comment on above: Order Comment: Criti johnie result acted upon time of test. Test performed at bedside. O2HB 96.8 % Normal 94.0-98.0 [facility] Comment on above: Order Comment: Criti johnie result acted upon time of test. Test performed at bedside. Oxygen saturation in Blood 98.7 % Normal 92.0-99.0 [facility] Comment on above: Order Comment: Criti johnie result acted upon time of test. Test performed at bedside. PCO2 ARTERIAL 50.2 mm Hg High 35.0-45.0 [facility] Comment on above: Order Comment: Criti johnie result acted upon time of test. Test performed at bedside. PH ARTERIAL 7.15 Off scale low 7.35-7.45 [facility] Comment on above: Order Comment: Criti johnie result acted upon time of test. Test performed at bedside. PO2 ARTERIAL 182 mm Hg High 75-85 [facility] Comment on above: Order Comment: Criti johnie result acted upon time of test. Test performed at bedside. Potassium [Moles/Vol] 4.1 mmol/L Normal 3.5-5.1 [facility] Comment on above: Order Comment: Criti johnie result acted upon time of test. Test performed at bedside. RESULT NOTIFICATION critical results given to treating OR anesthesiolo Normal [facility] Comment on above: Order Comment: Criti johnie result acted upon time of test. Test performed at bedside. Sodium [Moles/Vol] 131 mmol/L Low 135-145 [facility] Comment on above: Order Comment: Criti johnie result acted upon time of test. Test performed at bedside. POC GLUCOSE - [facility] 025 Glucose [Mass/Vol] 141 mg/dL [place] [address] [place] [address] Comment on above: Performed By: #### 4 6932 ####[facility] [place] [place] [facility] [address] [address] [id number] [facility] Glucose [Mass/Vol] 146 mg/dL [address] Comment on above: Performed By: #### 4 6932 ####[facility] [place] [place] [facility] [address] [address] [id number] [facility] POC VENOUS BLOOD GAS PANEL-P [facility] - [facility] 01-22-2025 BASE EXCESS, VENOUS -8.9 Low -2.0-2.0 [facility] Comment on above: Order Comment: Criti johnie result acted upon time of test. Test performed at bedside. CALCIUM IONIZED 4.2 mg/dL Low 4.5-5.3 [facility] Comment on above: Order Comment: Criti johnie result acted upon time of test. Test performed at bedside. CARBOXYHEMOGLOBIN 1.2 % of total Hb Normal <=1.5 [facility] Comment on above: Order Comment: Criti johnie result acted upon time of test. Test performed at bedside. Result Comment: Refe arleth Ranges:Suburban Non-smokers: <1.5%Smokers: 1.5-5.0%Heavy Smokers: 5.0-9.0% Chloride [Moles/Vol] 99 mmol/L Normal 98-108 [facility] Comment on above: Order Comment: Criti johnie result acted upon time of test. Test performed at bedside. Glucose [Mass/Vol] 124 mg/dL High 65-99 [facility] Comment on above: Order Comment: Criti johnie result acted upon time of test. Test performed at bedside. HCO3 (Bld) [Moles/Vol] 20.8 mmol/L Low 24.0-28.0 [facility] Comment on above: Order Comment: Criti johnie result acted upon time of test. Test performed at bedside. Hematocrit (Bld) [Volume fraction] 40.4 % Low 41.0-53.0 [facility] Comment on above: Order Comment: Criti johnie result acted upon time of test. Test performed at bedside. Hemoglobin (Bld) [Mass/Vol] 13.2 g/dL Low 13.5-17.5 [facility] Comment on above: Order Comment: Criti johnie result acted upon time of test. Test performed at bedside. LACTIC ACID, WHOLE BLOOD 2.4 mmol/L High 0.6-2.0 [facility] Comment on above: Order Comment: Criti johnie result acted upon time of test. Test performed at bedside. METHEMOGLOBIN < Normal 0.0-2.0 [facility] Comment on above: Order Comment: Criti johnie result acted upon time of test. Test performed at bedside. O2HB 39.5 % Normal No established reference range [facility] Comment on above: Order Comment: Criti johnie result acted upon time of test. Test performed at bedside. Oxygen saturation in Blood 40.3 % Normal 40.0-70.0 [facility] Comment on above: Order Comment: Criti johnie result acted upon time of test. Test performed at bedside. PCO2 VENOUS 61.0 mm Hg High 41.0-51.0 [facility] Comment on above: Order Comment: Criti johnie result acted upon time of test. Test performed at bedside. PH VENOUS 7.14 Off scale low 7.32-7.42 [facility] Comment on above: Order Comment: Criti johnie result acted upon time of test. Test performed at bedside. PO2 VENOUS 31 mm Hg Normal 25-40 [facility] Comment on above: Order Comment: Criti johnie result acted upon time of test. Test performed at bedside. Potassium [Moles/Vol] 4.1 mmol/L Normal 3.5-5.1 [facility] Comment on above: Order Comment: Criti johnie result acted upon time of test. Test performed at bedside. RESULT NOTIFICATION critical results given to treating OR anesthesiolo Normal [facility] Comment on above: Order Comment: Criti johnie result acted upon time of test. Test performed at bedside. Sodium [Moles/Vol] 131 mmol/L Low 135-145 [facility] Comment on above: Order Comment: Criti johnie result acted upon time of test. Test performed at bedside. Platelet countOrdered By: Yumiko Bee on 01-22-2025 Platelets (Bld) [#/Vol] 358 10*3/uL 150-450 [facility] Potassium measurement (mass/ volume)Ordered By: See Bee on 01-22-2025 Potassium (Unsp spec) [Mass/Vol] 4.1 mmol/L 3.3-5.1 [facility] Pro- Brain NATRIURETIC PEPTI Ashlee 01-22-2025 Natriuretic peptide B (Bld) [Mass/Vol] 1427 pg/mL High <=900 [facility] Comment on above: Result Comment: Hear t Failure Unlikely: < 300 pg/mL Heart Failure Likely < 50 Years: > 450 pg/mL 50-75 Years: > 900 pg/mL >75 Years: > 1800 pg/mL Performed By: #### L 509.7001, L100.0100, L503.6005, L503.7505, L501.3620, L500.2500, L501.5200, L500.3400 #### [facility] [address] [place], [address] Natriuretic peptide B (Bld) [Mass/Vol] 1765 pg/mL High <=900 [facility] Comment on above: Order Comment: REDRA W. [...] L503.6005, L503.7505, L501.3620, L500.2500, L501.5200, L500.3400 #### [facility] [address] [place], [address] Procalcitonin [Mass/volume] in Serum or Plasma by ImmunoassayOrdered By: See Bee on 01-22-2025 Procalcitonin IA [Mass/Vol] 1.73 ng/mL High <0.11 [facility] Comment on above: Interpretation:<0.10 -0.25 ng/mL: Antibiotic [...] Protein Ql (U) 30 mg/dl High Negative [facility] RBC Auto (Bld) [#/Vol]Ordere d By: See Bee on 01-22-2025 RBC (Bld) [#/Vol] 4.74 10*6/uL 4.6-6.2 [facility] Review by pathologistOrdered By: See Bee on 01-22-2025 Pathologist review Vishal (Unsp spec) [Interp] September [facility] Serum creatinine measurement (mass/volume)Ordered By: See Bee on 01-22-2025 Creatinine [Mass/Vol] 3.55 mg/dL High 0.70-1.20 [facility] Serum globulin measurementOr dered By: See Bee on 01-22-2025 Globulin (S) [Mass/Vol] 3.5 g/dL 2.2-4.2 [facility] Comment on above: Previous reported re sult: 3.3 g/dLEdited by: JAY on 01/22/25:0632 AMENDED REPORT 01/22/25 0632 GLOB previously reported as: 3.3 g/dL Serum glucose measurement (m ass/volume)Ordered By: See Bee on 01-22-2025 Glucose [Mass/Vol] 121 mg/dL High 70-99 [facility] Serum or plasma alanine cowan otransferase (ALT) measurementOrdered By: See Bee on 01-22-2025 ALT [Catalytic activity/Vol] 50 U/L High <47 [facility] Serum or plasma albumin evelio urement (mass/volume)Ordered By: See Bee on 01-22-2025 Albumin [Mass/Vol] 2.4 g/dL Low 3.4-4.8 [facility] Comment on above: Previous reported re sult: 2.6 g/dLEdited by: JAY on 01/22/25:0632 AMENDED REPORT 01/22/25631 ALB previously reported as: 2.6 L g/dL Serum or plasma alkaline nilda sphatase measurementOrdered By: See Bee on 01-22-2025 ALP [Catalytic activity/Vol] 67 U/L 40-129 [facility] Serum or plasma calcium evelio urement (mass/volume)Ordered By: See Bee on 01-22-2025 Calcium [Mass/Vol] 7.2 mg/dL Low 7.6-11.0 [facility] Serum or plasma creatine kin ase activityOrdered By: See Bee on 01-22-2025 CK [Catalytic activity/Vol] 3791 U/L High 24-195 [facility] Serum or plasma urea nitroge n measurement (mass/volume)Ordered By: See Bee on 01-22-2025 Urea nitrogen [Mass/Vol] 59 mg/dL High 4-19 [facility] Sodium levelOrdered By: Kalpesh Bee on 01-22-2025 Sodium [Moles/Vol] 129 mmol/L Low 133-145 [facility] Squamous epithelial cells de tection in urine sediment by light microscopyOrdered By: See Bee on 01-22-2025 Epithelial cells.squamous LM Ql (Urine sed) 0-5 SEEN /hpf 0-5 [facility] TISSUE AEROBIC AND ANAEROBIC CULTUREon 01-22-2025 TISSUE AEROBIC AND ANAEROBIC CULTURE CULTURE BACTEROIDES FRAGILIS Moderate Growth Bacteroides fragilis Heavy Growth Normal Enteric Cordelia GRAM STAIN RESULT Few WBC Many RBC Many Gram Negative Bacilli Moderate Gram Positive Cocci Abnormal [facility] Comment on above: Performed By: #### 4 [id number] ####[facility] [address] [place] [address] Tuan Ascencio M.D. [id number] TISSUE EXAMon 01-22-2025 TISSUE EXAM [facility] Comment on above: Performed By: #### 4 7015 ####[facility] [place] [facility] [address] [address] Wojciech Oneal M.D. [id number] [facility] [address] [place] [address] Tuan Ascencio M.D. [id number] TRIGLYCERIDESon 01-22-2025 Triglyceride [Mass/Vol] 93 mg/dL Normal 30-150 [facility] Comment on above: Result Comment: Vaishnavi onal Cholesterol Education Program Guidelines: TriglycerideNormal: <150 mg/dLBorderline High: 150-199 mg/dLHigh: 200-499 mg/dLVery High: greater than or equal to 500 mg/dL Performed By: #### 4 6606 ####[facility] [place] [facility] [address] [address] Wojciech Oneal M.D. [id number] TYPE AND SCREENon 01-22-2025 TYPE AND SCREEN ABORH: O Positive AB SCREEN: Negative EXPIRATION DATE: 01/25/2025 23:59 EST [facility] Comment on above: Performed By: #### 4 [id number] ####[facility] [place] [place] [facility] [address] [address] Radha Kelsey MD [id number] GMCTS Total cell countOrdered By: See Bee on 01-22-2025 Cells counted Molgen (Bld/Tiss) [#] 100 MANUAL DIFF [facility] Total proteinOrdered By: Mark Bee on 01-22-2025 Protein [Mass/Vol] 5.9 g/dL 5.9-8.4 [facility] Urinalysis, Completeon 01-22 CAST,HYALINE 0-5 SEEN Normal 0-5 [facility] Comment on above: Order Comment: REDRA W. PREVIOUS SPECIMEN REJECTED DUE TO RESULTS NOT COMING THROUGH AND SEEM TO BE ERRONEOUS. 01/22/25 0220 Mora Patel. NOTIFIED DELMY FOR REDRAW Performed By: #### L 509.7001, L100.0100, L503.6005, L503.7505, L501.3620, L500.2500, L501.5200, L500.3400 #### [facility] [address] [place], [address] RBC 0-5 SEEN Normal 0-5 [facility] Comment on above: Order Comment: REDRA W. PREVIOUS SPECIMEN REJECTED DUE TO RESULTS NOT COMING THROUGH AND SEEM TO BE ERRONEOUS. 01/22/25219 Mora Patel. NOTIFIED DELMY FOR REDRAW Performed By: #### L 509.7001, L100.0100, L503.6005, L503.7505, L501.3620, L500.2500, L501.5200, L500.3400 #### [facility] [address] [place], [place], [id number] (041) WBC 10-25 SEEN Normal 0-5 [facility] Comment on above: Order Comment: REDRA W. PREVIOUS SPECIMEN REJECTED DUE TO RESULTS NOT COMING THROUGH AND SEEM TO BE ERRONEOUS. 01/22/25219 Mora Patel. NOTIFIED DELMY FOR REDRAW Performed By: #### L 509.7001, L100.0100, L503.6005, L503.7505, L501.3620, L500.2500, L501.5200, L500.3400 #### [facility] [address] [place], [place], [address] ([address] BACTERIA 1+ /hpf Normal None Seen [facility] Comment on above: Order Comment: REDRA W. PREVIOUS SPECIMEN REJECTED DUE TO RESULTS NOT COMING THROUGH AND SEEM TO BE ERRONEOUS. 01/22/25219 Mora Patel. NOTIFIED DELMY FOR REDRAW Performed By: #### L 509.7001, L100.0100, L503.6005, L503.7505, L501.3620, L500.2500, L501.5200, L500.3400 #### [facility] [address] [place], [place], [address] EPI,SQUAMOUS 0-5 SEEN Normal 0-5 [facility] Comment on above: Order Comment: REDRA W. PREVIOUS SPECIMEN REJECTED DUE TO RESULTS NOT COMING THROUGH AND SEEM TO BE ERRONEOUS. 01/22/25219 Mora Patel. NOTIFIED DELMY FOR REDRAW Performed By: #### L 509.7001, L100.0100, L503.6005, L503.7505, L501.3620, L500.2500, L501.5200, L500.3400 #### [facility] [address] [place], [place], [address] Mucus Ql (Urine sed) 0 SEEN Normal [facility] Comment on above: Order Comment: REDRA W. PREVIOUS SPECIMEN REJECTED DUE TO RESULTS NOT COMING THROUGH AND SEEM TO BE ERRONEOUS. 01/22/25219 Mora Patel. NOTIFIED DELMY FOR REDRAW Performed By: #### L 509.7001, L100.0100, L503.6005, L503.7505, L501.3620, L500.2500, L501.5200, L500.3400 #### [facility] [address] [place], [place], [id number] Urine clarityOrdered By: Mark Bee on 01-22-2025 Clarity (U) Clear Clear [facility] Urine color determinationOrd ered By: See Bee on 01-22-2025 Color (U) Pili Yellow [facility] Urine glucose detectionOrder ed By: See Bee on 01-22-2025 Glucose Ql (U) Normal mg/dl Normal [facility] Urine leukocyte esterase det ection by dipstickOrdered By: See Bee on 01-22-2025 Leukocyte esterase Test strip Ql (U) 25 /ul High Negative [facility] Urine pHOrdered By: See garcia on 01-22-2025 pH (U) 5.0 [pH] 5.0 - 8.0 [facility] Urine sediment bacteria coun t by microscopy (number/high power field)Ordered By: See Bee on 01-22-2025 Bacteria LM.HPF (Urine sed) [#/Area] 1 /[HPF] None Seen [facility] Urine specific gravity measu rementOrdered By: See Bee on 01-22-2025 Specific gravity (U) [Rel density] 1.020 1.002-1.030 [facility] Urine urobilinogen measureme ntOrdered By: See Bee on 01-22-2025 Urobilinogen Ql (U) 4 mg/dl High Normal [facility] VANCOMYCIN LEVEL, RANDOMon 0 01-22-2025 VANCOMYCIN RANDOM 22.0 mcg/mL [facility] Comment on above: Order Comment: As of 02/2022 vancomycin dosing for [facility] inpatients will be done by Bayesian dosing software rather than off traditional trough values. Please contact the site specific inpatient pharmacy before making dose changes off of trough values alone for admitted patients.No established reference range. Performed By: #### 4 6651 ####[facility] [address] [place], [place] [address] Wojciech Oneal M.D. [id number] White blood cell (WBC) count Ordered By: See Bee on 01-22-2025 WBC (Bld) [#/Vol] 26.8 10*3/uL High 4.4-11.0 [facility] White blood cell countOrdere d By: See Bee on 01-22-2025 White blood cell count 10-25 SEEN /hpf 0-5 [facility] XR ABDOMEN /KUB/FLAT PLATE/1 VIEWon 01-22-2025 XR ABDOMEN /KUB/FLAT PLATE/1 VIEW [facility] Comment on above: Order Comment: Injur y/Trauma or Illness?:Illness/OtherHow long have you had these symptoms (acute/chronic)?:AcuteReason for exam?:OGT placementHistory of cancer?:unkSurgeries, chemotherapy, or radiation?:unkType of Exam?:InitialAdditional signs and symptoms?:na XR CHEST PA/APon 01-22-2025 XR CHEST PA/AP [facility] Comment on above: Order Comment: Injur y/Trauma or Illness?:Illness/OtherHow long have you had these symptoms (acute/chronic)?:AcuteReason for exam?:CVC placementHistory of cancer?:unkSurgeries, chemotherapy, or radiation?:unkType of Exam?:InitialAdditional signs and symptoms?:n/a XR CHEST PA/AP Normal [facility] Comment on above: Order Comment: Injur y/Trauma or Illness?:Illness/OtherHow long have you had these symptoms (acute/chronic)?:AcuteReason for exam?:ET tube placementHistory of cancer?:unkSurgeries, chemotherapy, or radiation?:unkType of Exam?:InitialAdditional signs and symptoms?:n/a Chest 1 View (Portable)on Chest 1 View (Portable) [facility] Imaging Services [address] [place] [address] Chest 1 View (Portable) MR#: [id number] Acct: [id number] Name: JAK TANNER Rep #: [id number] : 1955 M 69 From: Bayron Hunt MD PCP: [facility] Status: PRE ER Study: Chest 1 View (Portable) Date of Exam: 01/21/25 Exam# [id number] Ordering Dr: See Bee DO PROCEDURE: CHEST 1 VIEW (PORTABLE) 01/22/2025 REASON FOR EXAM: COUGH TECHNIQUE: Frontal view of the chest. FINDINGS: The lungs are clear. The cardiomediastinal silhouette appears borderline enlarged, with mild atherosclerotic calcification of the aortic knob.. No acute osseous abnormality. RAD/Chest 1 View (Portable) IMPRESSION: As above. Reading Location: [id number] CC: See Bee DO; [facility] Senior Trial Attorney: Signed Normal [facility] Absolute lymphocyte countOrd ered By: Remus Moises on 07-12-2023 Lymphocytes Auto (Unsp spec) [#/Vol] 0.61 10*3/uL 0.83-4.51 [facility] Automated lymphocyte count a s percentage of total leukocytesOrdered By: Remus Ungryan on 07-12-2023 Lymphocytes/100 WBC Auto (Unsp spec) 5.3 % 19-41 [facility] Basophil percentageOrdered B y: Remus Ungur on 07-12-2023 Lactate [Moles/Vol] 0.8 mmol/L 0.4-2.0 [facility] Basophils/100 WBC (Bld) 0.4 % 0-1 [facility] Chloride [Moles/Vol] 109 mmol/L 98-107 [facility] Eosinophils/100 WBC (Bld) 1.0 % 0-5 [facility] Glucose [Mass/Vol] 102 mg/dL 74-106 [facility] Comment on above: Fasting Glucose resu lt from 100 to 125 mg/dL suggests IMPAIRED HOMEOSTASIS per A.D.A. criteria. Hemoglobin (Bld) [Mass/Vol] 12.7 g/dL 13.0-16.5 [facility] Lactate [Moles/Vol] 2.0 mmol/L 0.4-2.0 [facility] Comment on above: Critical Result(s) C alled at: 17:18:01 07/12/2023 by: Tristan Everett to Aminata Magdaleno. Results read back by same. Monocytes/100 WBC (Bld) 7.3 % 0-10 [facility] Neutrophils (Bld) [#/Vol] 9.8 10*3/uL 2.0-7.7 [facility] Neutrophils/100 WBC (Bld) 85.4 % 47-70 [facility] Potassium [Moles/Vol] 2.4 mmol/L 3.5-5.1 [facility] Comment on above: Critical Result(s) C alled at: 15:18:25 07/12/2023 by: Milton Wharton to Gaston GUERRA (ER). Results read back by same. Sodium [Moles/Vol] 141 mmol/L 136-145 [facility] WBC (Bld) [#/Vol] 11.4 10*3/uL 4.4-11.0 [facility] Determination of erythrocyte mean corpuscular volume (MCV)Ordered By: Nicola De Leon on 07-12-2023 MCV (RBC) [Entitic vol] 88.2 fL 80-94 [facility] Erythrocyte distribution wid th ratioOrdered By: Nicola De Leon on 07-12-2023 Erythrocyte distribution width (RBC) [Ratio] 12.8 % 11.6-14.6 [facility] Erythrocyte distribution wid th standard deviationOrdered By: Nicola De Leon on 07-12-2023 Erythrocyte distribution width (RBC) [Entitic vol] 41.9 fL 35.1-43.9 [facility] Gram stain for investigation of transfusion reactionOrdered By: Nicola De Leon on 07-12-2023 Microscopic observation Gram stain Nom (Unsp spec) [facility] Hematocrit Auto (Bld) [Volum e fraction]Ordered By: Nicola De Leon on 07-12-2023 Hematocrit (Bld) [Volume fraction] 39.0 % 40-54 [facility] Immature granulocytes/100 WB C Auto (Bld)Or[facility] By: [facility] on 07-12-2023 Immature granulocytes/100 WBC (Bld) 0.600 % 0.0-0.9 [facility] Comment on above: IG% - Immature Granu locytes (promyelocytes, myelocytes and metamyelocytes) > 1% indicates that a LEFT SHIFT is Present. Laboratory - Chemistry and C hemistry - challengeOrdered By: Nicola De Leon on 07-12-2023 CO2 [Moles/Vol] 26.0 mmol/L 21.0-32.0 [facility] Urea nitrogen/Creatinine [Mass ratio] 11.8 mg/mg 10-20 [facility] Laboratory - Hematology and Cell countsOrdered By: Nicola De Leon on 07-12-2023 MCH (RBC) [Entitic mass] 28.7 pg 27.0-32.0 [facility] MCHC (RBC) [Mass/Vol] 32.6 g/dL 32-36 [facility] Nucleated RBC/100 WBC (Bld) [Ratio] 0 % 0-5 [facility] Platelet mean volume (Bld) [Entitic vol] 9.0 fL 6.2-12.0 [facility] Platelets (Bld) [#/Vol] 309 10*3/uL 150-450 [facility] No Panel InformationOrdered By: Nicola De Leon on 07-12-2023 Estimated Creatinine Clearance Calc 105.13 ml/min [facility] Estimated GFR (MDRD) Amer 93 mL/min >60 [facility] Comment on above: GFR Calc Estimated GFR (MDRD) Non-Af Amer 77 mL/min >60 [facility] Comment on above: Non- GFR Calc Methicillin-Resist S.aureus DNA PCR Negative Negative [facility] RBC Auto (Bld) [#/Vol]Ordere d By: Nicola De Leon on 07-12-2023 RBC (Bld) [#/Vol] 4.42 10*6/uL 4.6-6.2 [facility] Serum or plasma calcium evelio urement (mass/volume)Ordered By: Remus De Leon on 07-12-2023 Calcium [Mass/Vol] 9.0 mg/dL 8.5-10.1 [facility] Serum or plasma creatinine m easurement (mass/volume)Ordered By: [facility] on 07-12-2023 Creatinine [Mass/Vol] 1.02 mg/dL 0.70-1.30 [facility] Comment on above: The validity of the calculated GFR & GFRAA in patients over 70 years has not been determined. Clinical correlation is essential. Serum or plasma urea nitroge n measurement (mass/volume)Ordered By: Nicola De Leon on 07-12-2023 Urea nitrogen [Mass/Vol] 12 mg/dL 7-18 [facility] Staphylococcus aureus DNA de tection by probe and target amplification methodOrdered By: [facility] on 07-12-2023 S. aureus DNA QASIM+probe Ql (Unsp spec) Positive Negative [facility] Thin prep Papanicolaou smear with manual screeningOrdered By: [facility] on 07-12-2023 Thin prep Papanicolaou smear with manual screening 6 5-15 [facility] Absolute lymphocyte countOrd ered By: Marcus Sandoval on 07-02-2023 Lymphocytes Auto (Unsp spec) [#/Vol] 0.57 10*3/uL 0.83-4.51 [facility] Automated lymphocyte count a s percentage of total leukocytesOrdered By: Marcus Sandoval on 07-02-2023 Lymphocytes/100 WBC Auto (Unsp spec) 4.5 % 19-41 [facility] Basophil percentageOrdered B y: Marcus Sandoval on 07-02-2023 Basophils/100 WBC (Bld) 0.6 % 0-1 [facility] Bilirubin [Mass/Vol] 1.40 mg/dL 0.20-1.00 [facility] Comment on above: For patients on eltr ombopag therapy, use of Dimension [place] TBIL is not recommended. Chloride [Moles/Vol] 110 mmol/L 98-107 [facility] Eosinophils/100 WBC (Bld) 0.3 % 0-5 [facility] Glucose [Mass/Vol] 100 mg/dL 74-106 [facility] Comment on above: Fasting Glucose resu lt from 100 to 125 mg/dL suggests IMPAIRED HOMEOSTASIS per A.D.A. criteria. Hemoglobin (Bld) [Mass/Vol] 13.5 g/dL 13.0-16.5 [facility] Lactate [Moles/Vol] 2.1 mmol/L 0.4-2.0 [facility] Comment on above: Critical Result(s) C alled at: 17:20:42 07/02/2023 by: [facility]iryam Valverde [facility]. Results read back by same. Monocytes/100 WBC (Bld) 9.2 % 0-10 [facility] Neutrophils (Bld) [#/Vol] 10.7 10*3/uL 2.0-7.7 [facility] Neutrophils/100 WBC (Bld) 84.8 % 47-70 [facility] Potassium [Moles/Vol] 3.2 mmol/L 3.5-5.1 [facility] Protein [Mass/Vol] 8.4 g/dL 6.4-8.2 [facility] Sodium [Moles/Vol] 140 mmol/L 136-145 [facility] WBC (Bld) [#/Vol] 12.6 10*3/uL 4.4-11.0 [facility] Determination of erythrocyte mean corpuscular volume (MCV)Ordered By: Marcus Sandoval on 07-02-2023 MCV (RBC) [Entitic vol] 88.7 fL 80-94 [facility] Erythrocyte distribution wid th ratioOrdered By: Marcusromy Sandoval on 07-02-2023 Erythrocyte distribution width (RBC) [Ratio] 13.1 % 11.6-14.6 [facility] Erythrocyte distribution wid th standard deviationOrdered By: Marcusromy Sandoval on 07-02-2023 Erythrocyte distribution width (RBC) [Entitic vol] 42.4 fL 35.1-43.9 [facility] Erythrocyte sedimentation ra teOrdered By: Marcusromy Sandoval on 07-02-2023 ESR (Bld) [Velocity] 42 mm/h 0-20 [facility] Hematocrit Auto (Bld) [Volum e fraction]Ordered By: [facility] Jaime on 07-02-2023 Hematocrit (Bld) [Volume fraction] 41.4 % 40-54 [facility] Immature granulocytes/100 WB C Auto (Bld)Ordered By: [facility] 07-02-2023 Immature granulocytes/100 WBC (Bld) 0.600 % 0.0-0.9 [facility] Comment on above: IG% - Immature Granu locytes (promyelocytes, myelocytes and metamyelocytes) > 1% indicates that a LEFT SHIFT is Present. Laboratory - Chemistry and C hemistry - challengeOrdered By: [facility] on 07-02-2023 Albumin/Globulin [Mass ratio] 0.6 {ratio} 0.9-2.4 [facility] ALP [Catalytic activity/Vol] 63 U/L 45-117 [facility] ALT [Catalytic activity/Vol] 27 U/L 16-61 [facility] CO2 [Moles/Vol] 24.0 mmol/L 21.0-32.0 [facility] Globulin (S) [Mass/Vol] 5.2 g/dL 2.2-4.2 [facility] Urea nitrogen/Creatinine [Mass ratio] 14.8 mg/mg 10-20 [facility] Laboratory - Hematology and Cell countsOrdered By: [facility] on 07-02-2023 MCH (RBC) [Entitic mass] 28.9 pg 27.0-32.0 [facility] [facility] MCHC (RBC) [Mass/Vol] 32.6 g/dL 32-36 [facility] Nucleated RBC/100 WBC (Bld) [Ratio] 0 % 0-5 [facility] Platelet mean volume (Bld) [Entitic vol] 9.5 fL 6.2-12.0 [facility] Platelets (Bld) [#/Vol] 238 10*3/uL 150-450 [facility] No Panel InformationOrdered By: Marcusromy Sandoval on 07-02-2023 Estimated GFR (MDRD) Amer 81 mL/min >60 [facility] Comment on above: GFR Calc Estimated GFR (MDRD) Non-Af Amer 67 mL/min >60 [facility] Comment on above: Non- GFR Calc RBC Auto (Bld) [#/Vol]Ordere d By: Marcus Sandoval on 07-02-2023 RBC (Bld) [#/Vol] 4.67 10*6/uL 4.6-6.2 [facility] Serum or plasma calcium evelio urement (mass/volume)Ordered By: Marcus Sandoval on 07-02-2023 Calcium [Mass/Vol] 9.1 mg/dL 8.5-10.1 [facility] Serum or plasma creatinine m easurement (mass/volume)Ordered By: Marcus Sandoval on 07-02-2023 Creatinine [Mass/Vol] 1.15 mg/dL 0.70-1.30 [facility] Comment on above: The validity of the calculated GFR & GFRAA in patients over 70 years has not been determined. Clinical correlation is essential. Serum or plasma urea nitroge n measurement (mass/volume)Ordered By: Marcus Sandoval on 07-02-2023 Urea nitrogen [Mass/Vol] 17 mg/dL 7-18 [facility] Thin prep Papanicolaou smear with manual screeningOrdered By: Marcus Sandoval on 07-02-2023 Thin prep Papanicolaou smear with manual screening 3.2 g/dL 3.2-5.0 [facility] Thin prep Papanicolaou smear with manual screening 34 U/L 15-37 [facility] Thin prep Papanicolaou smear with manual screening 6 5-15 [facility] Bacteria identified Cx Nom ( Wound)Ordered By: Dr. Mckenzie on 09-26-2022 Wound Culture GNR non global security architect [facility] Wound Culture Aerococcus viridans. [facility] Wound Culture Staphylococcus aureus [facility] Wound Culture Streptococcus group G [facility] Wound Culture Staphylococcus simulans [facility] Absolute lymphocyte countOrd ered By: Dr. Mckenzie on 09-22-2022 Lymphocytes Auto (Unsp spec) [#/Vol] 0.84 10*3/uL 0.83-4.51 [facility] Bacteria identified Cx Nom ( Wound)Ordered By: Cristhian Mckenzie on 09-22-2022 Wound Culture GNR non global security architect [facility] Wound Culture Aerococcus viridans. [facility] Wound Culture Staphylococcus aureus [facility] Wound Culture Streptococcus group G [facility] Wound Culture Staphylococcus simulans [facility] Basophil percentageOrdered B y: Dr. Mckenzie on 09-22-2022 Basophils/100 WBC (Bld) 0.9 % 0-1 [facility] Chloride [Moles/Vol] 103 mmol/L 98-107 [facility] Eosinophils/100 WBC (Bld) 1.5 % 0-5 [facility] Glucose [Mass/Vol] 107 mg/dL 74-106 [facility] Comment on above: Fasting Glucose resu lt from 100 to 125 mg/dL suggests IMPAIRED HOMEOSTASIS per A.D.A. criteria. Neutrophils (Bld) [#/Vol] 7.1 10*3/uL 2.0-7.7 [facility] Neutrophils/100 WBC (Bld) 79.6 % 47-70 [facility] Potassium [Moles/Vol] 3.2 mmol/L 3.5-5.1 [facility] Sodium [Moles/Vol] 138 mmol/L 136-145 [facility] WBC (Bld) [#/Vol] 8.9 10*3/uL 4.4-11.0 [facility] Blood erythrocytes count (nu mber/volume)Ordered By: Dr. Mckenzie on 09-22-2022 RBC (Bld) [#/Vol] 4.45 10*6/uL 4.6-6.2 [facility] Blood hemoglobin measurement (mass/volume)Ordered By: Dr. Mckenzie on 09-22-2022 Hemoglobin (Bld) [Mass/Vol] 12.5 g/dL 13.0-16.5 [facility] Blood lymphocytes/100 leukoc ytesOrdered By: Dr. Mckenzie on 09-22-2022 Lymphocytes/100 WBC (Bld) 9.5 % 19-41 [facility] Blood monocytes/100 leukocyt esOrdered By: Dr. Mckenzie on 09-22-2022 Monocytes/100 WBC (Bld) 6.9 % 0-10 [facility] Blood platelet mean volumeOr dered By: Dr. Mckenzie on 09-22-2022 Platelet mean volume (Bld) [Entitic vol] 10.0 fL 6.2-12.0 [facility] Determination of erythrocyte mean corpuscular volume (MCV)Ordered By: Dr. Mckenzie on 09-22-2022 MCV (RBC) [Entitic vol] 89.2 fL 80-94 [facility] Gram stain for investigation of transfusion reactionOrdered By: Cristhian Mckenzie on 09-22-2022 Microscopic observation Gram stain Nom (Unsp spec) [facility] Gram stain for investigation of transfusion reactionOrdered By: Dr. Mckenzie on 09-22-2022 Microscopic observation Gram stain Nom (Unsp spec) [facility] Hematocrit Auto (Bld) [Volum e fraction]Ordered By: Dr. Mckenzie on 09-22-2022 Hematocrit (Bld) [Volume fraction] 39.7 % 40-54 [facility] Laboratory - Chemistry and C hemistry - challengeOrdered By: Dr. Mckenzie on 09-22-2022 CO2 [Moles/Vol] 30.0 mmol/L 21.0-32.0 [facility] Natriuretic peptide B (Bld) [Mass/Vol] 24.2 pg/mL 0-100 [facility] Urea nitrogen/Creatinine [Mass ratio] 15.4 mg/mg 10-20 [facility] Laboratory - Hematology and Cell countsOrdered By: Dr. Mckenzie on 09-22-2022 Erythrocyte distribution width (RBC) [Entitic vol] 45.7 fL 35.1-43.9 [facility] Erythrocyte distribution width (RBC) [Ratio] 14.1 % 11.6-14.6 [facility] Immature granulocytes/100 WBC (Bld) 1.600 % 0.0-0.9 [facility] Comment on above: IG% - Immature Granu locytes (promyelocytes, myelocytes and metamyelocytes) > 1% indicates that a LEFT SHIFT is Present. MCH (RBC) [Entitic mass] 28.1 pg 27.0-32.0 [facility] Nucleated RBC/100 WBC (Bld) [Ratio] 0 % 0-5 [facility] MCHC Auto (RBC) [Mass/Vol]Or dered By: Dr. Mckenzie on 09-22-2022 MCHC (RBC) [Mass/Vol] 31.5 g/dL 32-36 [facility] No Panel InformationOrdered By: Dr. Mckenzie on 09-22-2022 Estimated Creatinine Clearance Calc 87.36 ml/min [facility] Estimated GFR (MDRD) Amer 115 mL/min >60 [facility] Comment on above: GFR Calc Estimated GFR (MDRD) Non-Af Amer 95 mL/min >60 [facility] Comment on above: Non- GFR Calc Platelets bldOrdered By: Dr. Mckenzie on 09-22-2022 Platelets (Bld) [#/Vol] 236 10*3/uL 150-450 [facility] Serum or plasma calcium evelio urement (mass/volume)Ordered By: Dr. Mckenzie on 09-22-2022 Calcium [Mass/Vol] 9.2 mg/dL 8.5-10.1 [facility] Serum or plasma creatinine m easurement (mass/volume)Ordered By: Dr. Mckenzie on 09-22-2022 Creatinine [Mass/Vol] 0.85 mg/dL 0.70-1.30 [facility] Comment on above: The validity of the calculated GFR & GFRAA in patients over 70 years has not been determined. Clinical correlation is essential. Serum or plasma urea nitroge n measurement (mass/volume)Ordered By: Dr. Mckenzie on 09-22-2022 Urea nitrogen [Mass/Vol] 13 mg/dL 7-18 [facility] Thin prep Papanicolaou smear with manual screeningOrdered By: Dr. Mckenzie on 09-22-2022 Thin prep Papanicolaou smear with manual screening 5 5-15 [facility] Vital Signs Date Time Vital Sign Value Performing Clinician Johnathan gamboa 01-22-2025 06:00-0400 Diastolic blood pressure 63 mm[Hg] [facility] Work Phone: [facility] 01-22-2025 06:00-0400 Heart rate 113 /min [facility] Work Phone: [facility] 01-22-2025 06:00-0400 Respiratory rate 17 /min [facility] Work Phone: 4(181)608-541949 [place] [address] 01-22-2025 06:00-0400 SaO2% (BldA) [Mass fraction] 97 % [facility] Work Phone: 5(452)960-163549 [place] [address] 01-22-2025 06:00-0400 Systolic blood pressure 97 mm[Hg] [facility] Work Phone: 0(760)698-913049 [place] [address] 01-22-2025 05:31-0400 Body temperature 98.4 [degF] [facility] Work Phone: 4(022)950-900249 [place] [address] 01-22-2025 00:11-0400 Body height 180.34 cm [facility] Work Phone: 7(702)059-256149 [place] [address] 01-22-2025 00:11-0400 Body mass index (BMI) [Ratio] 51.9 kg/m2 [facility] Work Phone: 6(958)724-506049 [place] [address] 01-22-2025 00:11-0400 Body weight 168.9 kg [facility] Work Phone: 9(888)569-695149 [place] [address] 07-13-2023 00:32-0500 Body temperature 98.6 [degF] [facility] Work Phone: 1(496)284-875449 [place] [address] 07-13-2023 00:32-0500 Diastolic blood pressure 63 mm[Hg] [facility] Work Phone: 7(494)272-054249 [place] [address] 07-13-2023 00:32-0500 Heart rate 98 /min [facility] Work Phone: 0(324)331-134349 [place] [address] 07-13-2023 00:32-0500 Respiratory rate 18 /min [facility] Work Phone: 0(223)903-756649 [place] [address] 07-13-2023 00:32-0500 SaO2% (BldA) [Mass fraction] 94 % [facility] Work Phone: 3(348)594-281649 [place] [address] 07-13-2023 00:32-0500 Systolic blood pressure 114 mm[Hg] [facility] Work Phone: 6(437)492-870349 [place] [address] 07-12-2023 17:23-0500 Body height 180.34 cm [facility] Work Phone: [facility] 07-12-2023 17:23-0500 Body mass index (BMI) [Ratio] 49.7 kg/m2 [facility] Work Phone: [facility] 07-12-2023 17:23-0500 Body weight 161.79 kg [facility] Work Phone: [facility] 07-12-2023 16:00-0500 Body temperature 97.9 [degF] [facility] 07-12-2023 16:00-0500 Diastolic blood pressure 66 mm[Hg] [facility] 07-12-2023 16:00-0500 Heart rate 87 /min [facility] 07-12-2023 16:00-0500 Respiratory rate 16 /min [facility] 07-12-2023 16:00-0500 SaO2% (BldA) [Mass fraction] 97 % [facility] 07-12-2023 16:00-0500 Systolic blood pressure 119 mm[Hg] [facility] 07-12-2023 14:20-0500 Body mass index (BMI) [Ratio] 50 kg/m2 [facility] 07-12-2023 14:20-0500 Body weight 162.8 kg [facility] 07-12-2023 13:58-0500 Body height 180.34 cm [facility] 07-02-2023 20:41-0500 Body temperature 97.7 [degF] [facility] 07-02-2023 20:41-0500 Diastolic blood pressure 56 mm[Hg] [facility] 07-02-2023 20:41-0500 Heart rate 98 /min [facility] 07-02-2023 20:41-0500 Respiratory rate 17 /min [facility] 07-02-2023 20:41-0500 SaO2% (BldA) [Mass fraction] 95 % [facility] 07-02-2023 20:41-0500 Systolic blood pressure 127 mm[Hg] [facility] 07-02-2023 15:56-0500 Body height 180.34 cm [facility] 11-16-2022 10:05-0400 Body mass index (BMI) [Ratio] 47.4 kg/m2 Dr. Toño Heller Work Phone: 7(390)121-491049 [place] [address] 11-16-2022 10:05-0400 Body temperature 97.9 [degF] Dr. Toño Heller Work Phone: 6(757)451-824549 [place] [address] 11-16-2022 10:05-0400 Diastolic blood pressure 86 mm[Hg] Dr. Toño Heller Work Phone: 3(566)368-654649 [place] [address] 11-16-2022 10:05-0400 Heart rate 93 /min Dr. Toño Heller Work Phone: 7(952)445-248949 [place] [address] 11-16-2022 10:05-0400 Respiratory rate 16 /min Dr. Toño Heller Work Phone: 9(447)943-528949 [place] [address] 11-16-2022 10:05-0400 Systolic blood pressure 135 mm[Hg] Dr. Toño Heller Work Phone: 6(387)174-573949 [place] [address] 11-11-2022 01:33-0400 Body weight 154.[address] Toño Heller Work Phone: 9(348)959-854349 [place] [address] 11-02-2022 09:21-0400 Body mass index (BMI) [Ratio] 47.4 kg/m2 Dr. Toño Heller Work Phone: 7(985)195-827549 [place] [address] 11-02-2022 09:21-0400 Body temperature 97.7 [degF] Dr. Toño Heller Work Phone: 1(726)164-098349 [place] [address] 11-02-2022 09:21-0400 Diastolic blood pressure 94 mm[Hg] Dr. Toño Heller Work Phone: 5(374)523-948649 [place] [address] 11-02-2022 09:21-0400 Heart rate 91 /min Dr. Toño Heller Work Phone: 5(119)581-653049 [place] [address] 11-02-2022 09:21-0400 Respiratory rate 16 /min Dr. Toño Heller Work Phone: 3(135)661-538749 [place] [address] 11-02-2022 09:21-0400 Systolic blood pressure 165 mm[Hg] Dr. Toño Heller Work Phone: 1(952)962-328249 [place] [address] 10-12-2022 00:48-0400 Body weight 154.[address] Toño Heller Work Phone: 4(150)785-827049 [place] [address] 10-10-2022 09:53-0400 Body mass index (BMI) [Ratio] 47.4 kg/m2 Dr. Toño Heller Work Phone: 0(503)349-780949 [place] [address] 10-10-2022 09:53-0400 Body temperature 97.1 [degF] Dr. Toño Heller Work Phone: 9(698)522-499149 [place] [address] 10-10-2022 09:53-0400 Diastolic blood pressure 76 mm[Hg] Dr. Toño Heller Work Phone: 9(615)756-219049 [place] [address] 10-10-2022 09:53-0400 Heart rate 102 /min Dr. Toño Heller Work Phone: 7(492)135-565049 [place] [address] 10-10-2022 09:53-0400 Respiratory rate 18 /min Dr. Toño Heller Work Phone: 7(958)389-678749 [place] [address] 10-10-2022 09:53-0400 Systolic blood pressure 119 mm[Hg] Dr. Toño Heller Work Phone: 0(370)985-039749 [place] [address] 10-05-2022 09:08-0400 Body height 180.[address] Toño Heller Work Phone: 9(683)862-357349 [place] [address] 10-05-2022 09:08-0400 Body weight 154.[address] Toño Heller Work Phone: 9(577)486-486549 [place] [address] 09-22-2022 12:00-0400 Respiratory rate 22 /min [facility] 09-22-2022 08:19-0400 Body mass index (BMI) [Ratio] 49.1 kg/m2 [facility] 09-22-2022 08:19-0400 Body weight 160 kg [facility] 09-22-2022 08:05-0400 Body height 180.34 cm [facility] 09-22-2022 08:05-0400 Body temperature 97.8 [degF] [facility] 09-22-2022 08:05-0400 Diastolic blood pressure 75 mm[Hg] [facility] 09-22-2022 08:05-0400 Heart rate 99 /min [facility] 09-22-2022 08:05-0400 SaO2% (BldA) [Mass fraction] 96 % [facility] 09-22-2022 08:05-0400 Systolic blood pressure 124 mm[Hg] [facility] Encounters Encounter Date Encounter Type Care Provider Facility Start: 03-24-2025 ambulatory [facility] Facility:[facility] Start: 03-17-2025 ambulatory [facility] Facility:[facility] Start: 03-10-2025 ambulatory [facility] Facility:[facility] Start: 03-03-2025 ambulatory Alyssa Gudla [facility] Facili ty:[facility] Start: 02-27-2025 ambulatory [facility] Facility:[facility] Start: 02-24-2025 ambulatory Alyssa Gudla [facility] Facili ty:[facility] Start: 02-19-2025 ambulatory Alyssa Gudla OLS Facili ty:[facility] Start: 01-22-2025 End: 02-18-2025 Evaluation and management of inpatient PROVIDER NOT IN SYSTEM [facility] Start: 01-22-2025 End: 01-26-2025 ambulatory PROVIDER NOT IN SYSTEM [facility] Start: 01-21-2025 End: 01-22-2025 Emergency department patient visit [facility] Work Phone: -Emergency Department Work Phone: Start: 04-21-2024 End: 05-09-2024 ambulatory Alejandro Sanders Facility:[facility] Start: 04-09-2024 End: 04-12-2024 ambulatory Myles Rebollar Facility:[facility] Start: 07-12-2023 Non-patient / Non-visit [facility] Work Phone: [facility] Work Phone: Start: 07-12-2023 [facility] Start: 07-12-2023 End: 07-12-2023 [facility] Work Phone: [facility] Work Phone: Start: 07-12-2023 End: 07-12-2023 Discharged Recurring [facility] Work Phone: Start: 07-12-2023 Registered Recurring [facility] Work Phone: Start: 07-02-2023 End: 07-02-2023 [facility] Start: 11-16-2022 Non-patient / Non-visit Dr. Toño Heller Work Phone: [facility] Work Phone: Start: 11-16-2022 End: 11-17-[address] Toño Heller Work Phone: [facility] Work Phone: Start: 11-16-2022 End: 11-17-[address] Toño Heller Work Phone: [facility] Work Phone: Start: 11-02-2022 Non-patient / Non-visit Dr. Toño Heller Work Phone: [facility] Work Phone: Start: 11-02-2022 End: 11-10-[address] Toño Heller Work Phone: [facility] Work Phone: Start: 11-02-2022 End: 11-10-[address] Toño Heller [facility] Work Phone: Start: 10-26-2022 Non-patient / Non-visit Dr. Toño Heller Work Phone: [facility] Work Phone: Start: 10-19-2022 Non-patient / Non-visit Dr. Toño Heller Work Phone: [facility] Work Phone: Start: 10-12-2022 Non-patient / Non-visit Dr. Toño Heller Work Phone: [facility] Work Phone: Start: 10-10-2022 End: 10-11-[address] Toño Heller Work Phone: [facility] Work Phone: Start: 10-10-2022 End: 10-11-[address] [facility] Start: 10-05-2022 Non-patient / Non-visit Dr. Toño Heller Work Phone: [facility] Start: 09-22-2022 End: 09-22-2022 [facility] Date Procedure Procedure Detail Performing Clinician Start: 01-22-2025 MRI of lower extremity [facility] Work Phone: Start: 01-22-2025 Estimated creatinine clearance [facility] Work Phone: Start: 01-22-2025 Urnls dip stick/tabl et reagent auto microscopy [facility] Work Phone: Start: 01-22-2025 Flow cytometry cell surf marker techl only 1st [facility] Work Phone: Start: 01-22-2025 Reactive lymphocyte count [facility] Work Phone: Start: 01-21-2025 Plain chest X-ray [facility] Work Phone: Start: 07-12-2023 X-ray of both [...] identified in Blood by Culture Blood Culture [facility] Start: 01-22-2025 Bacteria identified in Urine by Culture Urine Culture [facility] Start: 01-22-[address] [facility] Start: 01-22-[address] [facility] Start: 01-22-[address] [facility] Start: 07-13-2023 Blood chemistry [facility] Start: 07-12-2023 Referral to occupati onal therapist [facility] Start: 07-12-2023 Referral to service [facility] Start: 07-12-[address] [facility] Start: 07-12-2023 Following clinical p athway protocol [facility] Start: 07-12-2023 Assessment of risk o f venous thromboembolism [facility] Start: 07-12-2023 Catheterization of vein [facility] Start: 07-12-2023 Consultation for treatment [facility] Start: 07-12-2023 Insertion of cathete r into peripheral vein [facility] Start: 07-12-2023 MRI of lower extremity Lower Ext/No Jt/w/o [facility] Start: 07-12-2023 Providing care accor ding to standard [facility] Start: 07-12-2023 Provision of activit y privileges [facility] Start: 07-12-2023 Referral to training program assistant [facility] Start: 07-12-[address] [facility] Start: 07-12-2023 Verification routine [facility] Start: 07-12-2023 Admission procedure [facility] Start: 07-12-2023 End: 07-12-2023 Blood culture [facility] Start: 07-12-[address] [facility] Start: 07-12-2023 Bacteria identified in Blood by Culture Blood Culture [facility] Start: 07-12-2023 Wound Culture Wound Culture [facility] Start: 07-12-[address] [facility] Start: 07-12-2023 Patient referral to dietitian [facility] Start: 07-02-[address] [facility] Start: 07-02-2023 Referral to service [facility] Start: 09-22-[address] [facility] Anion gap measurement [facility] BUN/Creatinine ratio [facility] Calcium [Mass/volume ] in Serum or Plasma [facility] Carbon dioxide, tota l [Moles/volume] in Serum or Plasma [facility] Chloride [Moles/volu me] in Serum or Plasma [facility] Creatinine [Moles/vo lume] in Serum or Plasma [facility] Erythrocyte mean cor puscular volume determination [facility] Glucose [Mass/volume ] in Serum or Plasma [facility] Hematocrit [Volume F raction] of Blood [facility] Hemoglobin [Mass/vol ume] in Blood [facility] Leukocytes [#/volume ] in Blood [facility] Mean corpuscular hem oglobin concentration determination [facility] Mean corpuscular hem oglobin determination [facility] Measurement of renal function [facility] Microscopic observat ion [Identifier] in Unspecified specimen by Gram stain Gram Stain [facility] Neutrophil count [facility] Neutrophil percent differential count [facility] Patient Education [facility] Work Phone: Patient referral [facility] Work Phone: Platelets [#/volume] in Blood [facility] Potassium [Moles/vol ume] in Serum or Plasma [facility] Red blood cell count [facility] Red cell distributio n width determination [facility] Sodium [Moles/volume ] in Serum or Plasma [facility] Urea nitrogen [Mass/ volume] in Serum or Plasma [facility] Urine culture [facility] Vancomycin [Mass/vol ume] in Serum or Plasma --trough [facility] Wound Culture Wound Culture [facility] Wound microscopy, cu lture and sensitivities [facility] Immunizations Immunization Date Immunization Notes Care Provider Mello escamillashiloh 03-04-2022 Covid Moderna B[employer] [facility] Work Phone: [facility] 05-31-2021 Covid (Moderna) [facility] Work Phone: [facility] 09-02-2020 Covid (Moderna) [facility] Work Phone: [facility] Work Phone: [facility] Payers Date Payer Category Payer Medicaid [id number] 2024 Self-pay [id number] 2024 Unknown [id number] 1955 Unknown [id number] 1955 Unknown [id number] 1955 Unknown [id number] Medicare MEDICARE PART A B [id number] Private Health Insurance [id number] Unknown SELF INS [employer] [id number] Unknown [id number] 462 Unknown [id number]. 462 Unknown [id number]. 462 Unknown [id number]. 462 Unknown [id number]. 462 Unknown [id number]. 462 Unknown [id number]. 462 Unknown [id number]. 462 Unknown [id number]. 462 Unknown [id number]. 462 Social History Date Type Detail Facility Start: 09-22-2022 End: 07-12-2023 Tobacco smoking status AKIS Unknown if ever smoked [facility] Start: 10-01-[address] [facility] Start: 10-01-[address] [facility] Start: 11-12-2019 Non-smoker [facility] Start: 1955 Sex Assigned At Male [facility] Start: 01-22-2025 Tobacco smoking stat us AKIS Ex-smoker (finding) [facility] Medical Equipment Procedure Code Equipment Code Equipment Origin al Text Equipment Identifier Dates Debridement, wound Plant polysaccharide haemostatic agent, bioabsorbable [id number] [facility] Start: 07-15-2023 Goals Date Patient Goal Desired Activity /State Functional Status Date Assessment Result Facility 07-12-2023 Functional status Ambulates [facility] Work Phone: Mental Status Date Assessment Result Facility 01-22-2025 Cognitive function Level Of Cons ciousness Awake;Alert;Appropriate;Follow s Commands [facility] Work Phone: 07-12-2023 Cognitive function Voice/Name [facility] Work Phone: 09-22-2022 Cognitive function Level Of Cons ciousness Awake;Alert;Appropriate;Follow s Commands [facility] Work Phone: Clinical Notes 09-22-2022 to 02-17-2025 [...] Ce nter 01-22-2025 Radiology Diagnostic study note [facility] Imaging Services [address] [place] [address] Extremity Lower without Contra MR#: [id number] Acct: [id number] Name: JAK TANNER Rep #: [id number] : 1955 M 69 From: Jl Hunt MD PCP: [facility] Status: PRE ER Study:Extremity Lower without Contra Date of Exam: 01/22/25 Exam# [id number] Ordering Dr: Yumiko Bee DO PROCEDURE: EXTREMITY [...] degenerative changes of both hips. 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 Imaging Services [address] [place] [address] Chest 1 View (Portable) MR#: [id number]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 Attending Provider, Other Provider Active Dr. Alejandro Sanders DPM Other Provider Active Team Status: Inactive Member Role Status Dates [facility] Primary Care Provider, Referring Provider Active BECKY Singer Attending Provider Active Team Status: Active Member Role/Relationship Status Dates [facility] Primary Care Provider A ctive Team Status: Inactive Member Role/Relationship Status Dates [facility] Primary Care Provider Active Start: January 122024 [...] DATE CREATED AUTHOR AUTHOR'S ORGANIZ ATION 03/25/2025 [facility] FOR RECORDS PERTAINING TO PATIENTS WHO [...] BE BASED ON THE PRIMARY CLINICAL RECORDS. [facility] [employer] [facility]. provides no warranty or guarantee of the accuracy or completeness of information in this document.
[2025-04-23 08:28] LABS: Hematocrit 33.9 % (40-54); Hemoglobin 11.1 g/dL (13.0-16.5); Mean Corp Hgb Conc 32.7 g/dL (32-36); Mean Corpuscular Volume 84.8 fL (80-94); Mean Platelet Vol. 9.0 fl (6.2-12.0); Platelet Count 294 K/mm3 (150-450); RBC Distribution Width CV 12.8 % (11.6-14.6); RBC Distribution Width SD 39.2 fl (35.1-43.9); Red Blood Count 4.00 M/mm3 (4.6-6.2); White Blood Count 6.0 K/mm3 (4.4-11.0)
[2025-04-23 09:11] LABS: AST(SGOT) 30 U/L (<=37); Alanine Aminotransfer ALT/SGPT 8 U/L (<=46); Albumin, Serum 2.8 g/dL (3.4-4.8); Alkaline Phosphatase 53 U/L (40-129); Anion Gap 11 (5-15); BUN 5 mg/dL (4-19); BUN/Creat Ratio 7.7 RATIO (10-20); Calcium,Total 8.8 mg/dL (7.6-11.0); Carbon Dioxide 24.3 mmol/L (21.0-32.0); Chloride 103 mmol/L (98-108); Globulin 3.9 g/dL (2.2-4.2); Glucose 95 mg/dL (70-99); Potassium 4.1 mmol/L (3.3-5.1)
== END ==
LOC: OLS.SW 05:00
PROVIDERS: Visit Provider Family Medicine
DX: Z79.899 Other long term (current) drug therapy (principal); M72.6 Necrotizing fasciitis
CPT/HCPCS: 36415; 80053; 85027

== ENCOUNTER → 2025-04-30 05:00 | Outpatient (REF) | payer MEDICARE, MEDICAID, SELFPAY ==
--- OUTSIDE RECORDS SUMMARY | 2025-04-30 04:13 | XMS RPT_ITS | CCD ---
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 Toño Heller Primary Care Provider Dr. Toño Heller Referring Provider Dr. Franklyn Sanchez Attending Provider Dr. Franklyn Sanchez Other Provider [facility] Pina Primary Care Pro vider Dr. Niocla De Leon Emergency Provider Dr. Danis Velez Admit Provider Dr. Danis Velez Attending Provider Dr. Danis Velez Other Provider Dr. Alejandro Sanders Other Provider [facility] [place] Pina Primary Care Pro vider Dr. See Bee DO Emergency Provider [phone] SYSTEM, PROVIDER NOT IN Referring Unavaila ble ALAN CLAIRE Primary Care Unavailable [facility] Consulting KEITH Lozano Attending Unavailable PEYMAN RODRIGEZ Admitting Unavailable JAGJIT GONZALES Consulting UnavailDAGMAR Springer Consulting Unavaila ble SYSTEM, PROVIDER NOT IN Referring Unavaila ble SYSTEM, PROVIDER NOT IN Admitting Unavaila ble ALAN CLAIRE Primary Care Unavailable Alyssa Nguyen Attending Unavailable Alyssa Nguyen Referring Unavailable [facility] [place] Pina Primary Care Unavailable See Bee Attending Unavailable [facility] Primary Care Unavailable Myles Rebollar Attending Unavailable Alejandro Sanders Referring Unavailable [facility] Primary Care Unavailable Alejandro Sanders Referring Unavailable [facility] Primary Care Unavailable Myles Rebollar Attending Unavailable [facility] Primary Care Unavailable Dae Goff Attending Unavailable [facility] Primary Care Unavailable Dae Goff Attending Unavailable [facility] Primary Care Unavailable Alyssa Nguyen Attending Unavailable Alyssa Nguyen Attending Unavailable [facility] Primary Care Unavailable Alyssa Nguyen Attending Unavailable Alyssa Nguyen Referring Unavailable [facility] Primary Care Unavailable [facility] [place] Attending Unavailable [facility] Unavailable Medications Current Medications Medication Drug [...] 2022 12:00am July 02, 2023 5:09pm sennosides, mcfp 8.6 mg oral capsule (1 source) Start: [...] Weekly bmp, cbc, and esr. Fax to [phone]. routine picc care per protocol. Problems Active [...] width (RBC) [Ratio] 14.0 % Normal 11.6-14.6 [facility] Comment on above: Order Comment: REDRA W. PREVIOUS SPECIMEN REJECTED DUE TO RESULTS NOT COMING THROUGH AND SEEM TO BE ERRONEOUS. 01/22/25219 Mora Patel. NOTIFIED DELMY FOR REDRAW Performed By: #### L 509.7001, L100.0100, L503.6005, L503.7505, L501.3620, L500.2500, L501.5200, L500.3400 #### [facility] [address] [place], [place], [id number] Hematocrit (Bld) [Volume fraction] 33.8 % Low 40-54 [facility] Comment on above: Order Comment: REDRA W. PREVIOUS SPECIMEN REJECTED DUE TO RESULTS NOT COMING THROUGH AND SEEM TO BE ERRONEOUS. 01/22/25219 Mora Patel. NOTIFIED DELMY FOR REDRAW Performed By: #### L 509.7001, L100.0100, L503.6005, L503.7505, L501.3620, L500.2500, L501.5200, L500.3400 #### [facility] [address] [place], [address] Hemoglobin (Bld) [Mass/Vol] 10.2 g/dL Low 13.0-16.5 [facility] Comment on above: Order Comment: REDRA W. PREVIOUS SPECIMEN REJECTED DUE TO RESULTS NOT COMING THROUGH AND SEEM TO BE ERRONEOUS. 01/22/25219 Mora Patel. NOTIFIED DELMY FOR REDRAW Performed By: #### L 509.7001, L100.0100, L503.6005, L503.7505, L501.3620, L500.2500, L501.5200, L500.3400 #### [facility] [address] [place], [address] MCH (RBC) [Entitic mass] 28.3 pg Normal 27.0-32.0 [facility] Comment on above: Order Comment: REDRA W. PREVIOUS SPECIMEN REJECTED DUE TO RESULTS NOT COMING THROUGH AND SEEM TO BE ERRONEOUS. 01/22/25219 Mora Patel. NOTIFIED DELMY FOR REDRAW Performed By: #### L 509.7001, L100.0100, L503.6005, L503.7505, L501.3620, L500.2500, L501.5200, L500.3400 #### [facility] [address] [place], [address] MCHC (RBC) [Mass/Vol] 30.2 g/dL Low 32-36 [facility] Comment on above: Order Comment: REDRA W. PREVIOUS SPECIMEN REJECTED DUE TO RESULTS NOT COMING THROUGH AND SEEM TO BE ERRONEOUS. 01/22/25219 Mora Patel. NOTIFIED DELMY FOR REDRAW Performed By: #### L 509.7001, L100.0100, L503.6005, L503.7505, L501.3620, L500.2500, L501.5200, L500.3400 #### [facility] [address] [place], [address] MCV (RBC) [Entitic vol] 93.9 fL Normal 80-94 [facility] Comment on above: Order Comment: REDRA W. PREVIOUS SPECIMEN REJECTED DUE TO RESULTS NOT COMING THROUGH AND SEEM TO BE ERRONEOUS. 01/22/25219 Mora Patel. NOTIFIED DELMY FOR REDRAW Performed By: #### L 509.7001, L100.0100, L503.6005, L503.7505, L501.3620, L500.2500, L501.5200, L500.3400 #### [facility] [address] [place], [address] Platelet mean volume (Bld) [Entitic vol] 9.1 fL Normal 6.2-12.0 [facility] Comment on above: Order Comment: REDRA W. PREVIOUS SPECIMEN REJECTED DUE TO RESULTS NOT COMING THROUGH AND SEEM TO BE ERRONEOUS. 01/22/25219 Mora Patel. NOTIFIED DELMY FOR REDRAW Performed By: #### L 509.7001, L100.0100, L503.6005, L503.7505, L501.3620, L500.2500, L501.5200, L500.3400 #### [facility] [address] [place], [address] Platelets (Bld) [#/Vol] 220 10*3/uL Normal 150-450 [facility] Comment on above: Order Comment: REDRA W. PREVIOUS SPECIMEN REJECTED DUE TO RESULTS NOT COMING THROUGH AND SEEM TO BE ERRONEOUS. 01/22/25219 Mora Patel. NOTIFIED DELMY FOR REDRAW Performed By: #### L 509.7001, L100.0100, L503.6005, L503.7505, L501.3620, L500.2500, L501.5200, L500.3400 #### [facility] [address] [place], [address] RBC (Bld) [#/Vol] 3.60 10*6/uL Low 4.6-6.2 [facility] Comment on above: Order Comment: REDRA W. PREVIOUS SPECIMEN REJECTED DUE TO RESULTS NOT COMING THROUGH AND SEEM TO BE ERRONEOUS. 01/22/25219 Mora Patel. NOTIFIED DELMY FOR REDRAW Performed By: #### L 509.7001, L100.0100, L503.6005, L503.7505, L501.3620, L500.2500, L501.5200, L500.3400 #### [facility] [address] [place], [place], [id number] RDW SD 48.2 fl High 35.1-43.9 [facility] Comment on above: Order Comment: REDRA W. PREVIOUS SPECIMEN REJECTED DUE TO RESULTS NOT COMING THROUGH AND SEEM TO BE ERRONEOUS. 01/22/25219 Mora Patel. NOTIFIED DELMY FOR REDRAW Performed By: #### L 509.7001, L100.0100, L503.6005, L503.7505, L501.3620, L500.2500, L501.5200, L500.3400 #### [facility] [address] [place], [place], [id number] WBC (Bld) [#/Vol] 4.6 10*3/uL Normal 4.4-11.0 [facility] Comment on above: Order Comment: REDRA W. PREVIOUS SPECIMEN REJECTED DUE TO RESULTS NOT COMING THROUGH AND SEEM TO BE ERRONEOUS. 01/22/25219 Mora Patel. NOTIFIED DELMY FOR REDRAW Performed By: #### L 509.7001, L100.0100, L503.6005, L503.7505, L501.3620, L500.2500, L501.5200, L500.3400 #### [facility] [address] [place], [place], [id number] Comprehensive Metabolic Prof wion 03-24-2025 Albumin [Mass/Vol] 2.5 g/dL Low 3.4-4.8 [facility] Comment on above: Order Comment: REDRA W. PREVIOUS SPECIMEN REJECTED DUE TO RESULTS NOT COMING THROUGH AND SEEM TO BE ERRONEOUS. 01/22/25219 Mora Patel. NOTIFIED DELMY FOR REDRAW Performed By: #### L 509.7001, L100.0100, L503.6005, L503.7505, L501.3620, L500.2500, L501.5200, L500.3400 #### [facility] [address] [place], [address] Albumin/Globulin [Mass ratio] 0.6 {ratio} Low 0.9-2.4 [facility] Comment on above: Order Comment: REDRA W. PREVIOUS SPECIMEN REJECTED DUE TO RESULTS NOT COMING THROUGH AND SEEM TO BE ERRONEOUS. 01/22/25219 Mora Patel. NOTIFIED DELMY FOR REDRAW Performed By: #### L 509.7001, L100.0100, L503.6005, L503.7505, L501.3620, L500.2500, L501.5200, L500.3400 #### [facility] [address] [place], [address] ALK PHOS 57 U/L Normal 40-129 [facility] Comment on above: Order Comment: REDRA W. PREVIOUS SPECIMEN REJECTED DUE TO RESULTS NOT COMING THROUGH AND SEEM TO BE ERRONEOUS. 01/22/25219 Mora Patel. NOTIFIED DELMY FOR REDRAW Performed By: #### L 509.7001, L100.0100, L503.6005, L503.7505, L501.3620, L500.2500, L501.5200, L500.3400 #### [facility] [address] [place], [address] ALT [Catalytic activity/Vol] 9 U/L Normal <=46 [facility] Comment on above: Order Comment: REDRA W. PREVIOUS SPECIMEN REJECTED DUE TO RESULTS NOT COMING THROUGH AND SEEM TO BE ERRONEOUS. 01/22/25219 Mora Patel. NOTIFIED DELMY FOR REDRAW Result Comment: Hemo lysis present, Results??could be affected. ?? Performed By: #### L 509.7001, L100.0100, L503.6005, L503.7505, L501.3620, L500.2500, L501.5200, L500.3400 #### [facility] [address] [place], [place], [address] AST [Catalytic activity/Vol] 38 U/L Normal <=37 [facility] Comment on above: Order Comment: REDRA W. PREVIOUS SPECIMEN REJECTED DUE TO RESULTS NOT COMING THROUGH AND SEEM TO BE ERRONEOUS. 01/22/25219 Mora Patel. NOTIFIED DELMY FOR REDRAW Result Comment: Hemo lysis present, Results??could be affected. ?? Performed By: #### L 509.7001, L100.0100, L503.6005, L503.7505, L501.3620, L500.2500, L501.5200, L500.3400 #### [facility] [address] [place], [address] Bilirubin [Mass/Vol] 0.48 mg/dL Normal 0.00-1.30 [facility] Comment on above: Order Comment: REDRA W. PREVIOUS SPECIMEN REJECTED DUE TO RESULTS NOT COMING THROUGH AND SEEM TO BE ERRONEOUS. 01/22/25219 Mora Patel. NOTIFIED DELMY FOR REDRAW Performed By: #### L 509.7001, L100.0100, L503.6005, L503.7505, L501.3620, L500.2500, L501.5200, L500.3400 #### [facility] [address] [place], [place], [id number] (998) BUN/CRE 15.7 RATIO Normal 10-20 [facility] Comment on above: Order Comment: REDRA W. PREVIOUS SPECIMEN REJECTED DUE TO RESULTS NOT COMING THROUGH AND SEEM TO BE ERRONEOUS. 01/22/25219 Mora Patel. NOTIFIED DELMY FOR REDRAW Performed By: #### L 509.7001, L100.0100, L503.6005, L503.7505, L501.3620, L500.2500, L501.5200, L500.3400 #### [facility] [address] [place], [address] Calcium [Mass/Vol] 8.8 mg/dL Normal 7.6-11.0 [facility] Comment on above: Order Comment: REDRA W. PREVIOUS SPECIMEN REJECTED DUE TO RESULTS NOT COMING THROUGH AND SEEM TO BE ERRONEOUS. 01/22/25219 Mora Patel. NOTIFIED DELMY FOR REDRAW Performed By: #### L 509.7001, L100.0100, L503.6005, L503.7505, L501.3620, L500.2500, L501.5200, L500.3400 #### [facility] [address] [place], [address] Chloride [Moles/Vol] 106 mmol/L Normal 98-108 [facility] Comment on above: Order Comment: REDRA W. PREVIOUS SPECIMEN REJECTED DUE TO RESULTS NOT COMING THROUGH AND SEEM TO BE ERRONEOUS. 01/22/25219 Mora Patel. NOTIFIED DELMY FOR REDRAW Performed By: #### L 509.7001, L100.0100, L503.6005, L503.7505, L501.3620, L500.2500, L501.5200, L500.3400 #### [facility] [address] [place], [address] CO2 [Moles/Vol] 23.7 mmol/L Normal 21.0-32.0 [facility] Comment on above: Order Comment: REDRA W. PREVIOUS SPECIMEN REJECTED DUE TO RESULTS NOT COMING THROUGH AND SEEM TO BE ERRONEOUS. 01/22/25219 Mora Patel. NOTIFIED DELMY FOR REDRAW Performed By: #### L 509.7001, L100.0100, L503.6005, L503.7505, L501.3620, L500.2500, L501.5200, L500.3400 #### [facility] [address] [place], [address] Creatinine [Mass/Vol] 0.46 mg/dL Low 0.70-1.20 [facility] Comment on above: Order Comment: REDRA W. PREVIOUS SPECIMEN REJECTED DUE TO RESULTS NOT COMING THROUGH AND SEEM TO BE ERRONEOUS. 01/22/25219 Mora Patel. NOTIFIED DELMY FOR REDRAW Performed By: #### L 509.7001, L100.0100, L503.6005, L503.7505, L501.3620, L500.2500, L501.5200, L500.3400 #### [facility] [address] [place], [place], [id number] GAP 8 Normal 5-15 [facility] Comment on above: Order Comment: REDRA W. PREVIOUS SPECIMEN REJECTED DUE TO RESULTS NOT COMING THROUGH AND SEEM TO BE ERRONEOUS. 01/22/25219 Mora Patel. NOTIFIED DELMY FOR REDRAW Performed By: #### L 509.7001, L100.0100, L503.6005, L503.7505, L501.3620, L500.2500, L501.5200, L500.3400 #### [facility] [address] [place], [place], [address] GFR/1.73 sq M.predicted among non-blacks MDRD (S/P/Bld) [Vol rate/Area] 112 mL/min/{1.73_m2} Normal >60 [facility] Comment on above: Order Comment: REDRA W. PREVIOUS SPECIMEN REJECTED DUE TO RESULTS NOT COMING THROUGH AND SEEM TO BE ERRONEOUS. 01/22/25219 Mora Patel. NOTIFIED DELMY FOR REDRAW Result Comment: mL/m in/1.73m2 CKD-EPI Creatinine Equation (2020) Performed By: #### L 509.7001, L100.0100, L503.6005, L503.7505, L501.3620, L500.2500, L501.5200, L500.3400 #### [facility] [address] [place], [place], [id number] Globulin (S) [Mass/Vol] 4.0 g/dL Normal 2.2-4.2 [facility] Comment on above: Order Comment: REDRA W. PREVIOUS SPECIMEN REJECTED DUE TO RESULTS NOT COMING THROUGH AND SEEM TO BE ERRONEOUS. 01/22/25219 Mora Patel. NOTIFIED DELMY FOR REDRAW Performed By: #### L 509.7001, L100.0100, L503.6005, L503.7505, L501.3620, L500.2500, L501.5200, L500.3400 #### [facility] [address] [place], [address] Glucose [Mass/Vol] 90 mg/dL Normal 70-99 [facility] Comment on above: Order Comment: REDRA W. PREVIOUS SPECIMEN REJECTED DUE TO RESULTS NOT COMING THROUGH AND SEEM TO BE ERRONEOUS. 01/22/25219 Mora Patel. NOTIFIED DELMY FOR REDRAW Performed By: #### L 509.7001, L100.0100, L503.6005, L503.7505, L501.3620, L500.2500, L501.5200, L500.3400 #### [facility] [address] [place], [address] Potassium [Moles/Vol] 4.2 mmol/L Normal 3.3-5.1 [facility] Comment on above: Order Comment: REDRA W. PREVIOUS SPECIMEN REJECTED DUE TO RESULTS NOT COMING THROUGH AND SEEM TO BE ERRONEOUS. 01/22/25219 Mora Patel. NOTIFIED DELMY FOR REDRAW Result Comment: Hemo lysis present, Results??could be affected. ?? Performed By: #### L 509.7001, L100.0100, L503.6005, L503.7505, L501.3620, L500.2500, L501.5200, L500.3400 #### [facility] [address] [place], [address] Sodium [Moles/Vol] 137 mmol/L Normal 133-145 [facility] Comment on above: Order Comment: REDRA W. PREVIOUS SPECIMEN REJECTED DUE TO RESULTS NOT COMING THROUGH AND SEEM TO BE ERRONEOUS. 01/22/25219 Mora Patel. NOTIFIED DELMY FOR REDRAW Performed By: #### L 509.7001, L100.0100, L503.6005, L503.7505, L501.3620, L500.2500, L501.5200, L500.3400 #### [facility] [address] [place], [address] T PROT 6.5 g/dL Normal 5.9-8.4 [facility] Comment on above: Order Comment: REDRA W. PREVIOUS SPECIMEN REJECTED DUE TO RESULTS NOT COMING THROUGH AND SEEM TO BE ERRONEOUS. 01/22/25219 Mora Patel. NOTIFIED DELMY FOR REDRAW Performed By: #### L 509.7001, L100.0100, L503.6005, L503.7505, L501.3620, L500.2500, L501.5200, L500.3400 #### [facility] [address] [place], [place], [phone] Urea nitrogen [Mass/Vol] 7 mg/dL Normal 4-19 [facility] Comment on above: Order Comment: REDRA W. PREVIOUS SPECIMEN REJECTED DUE TO RESULTS NOT COMING THROUGH AND SEEM TO BE ERRONEOUS. 01/22/25219 Mora Patel. NOTIFIED DELMY FOR REDRAW Performed By: #### L 509.7001, L100.0100, L503.6005, L503.7505, L501.3620, L500.2500, L501.5200, L500.3400 #### [facility] [address] [place], [address] CBC-Complete Blood Cnt No Di ffon 03-17-2025 Erythrocyte distribution width (RBC) [Ratio] 14.1 % Normal 11.6-14.6 [facility] Comment on above: Order Comment: 301.1 Performed By: #### L 503.7505, L100.0500, L500.4050 #### [facility] [address] [place], [address] Hematocrit (Bld) [Volume fraction] 32.6 % Low 40-54 [facility] Comment on above: Order Comment: 301.1 Performed By: #### L 503.7505, L100.0500, L500.4050 #### [facility] [address] [place], [address] Hemoglobin (Bld) [Mass/Vol] 10.1 g/dL Low 13.0-16.5 [facility] Comment on above: Order Comment: 301.1 Performed By: #### L 503.7505, L100.0500, L500.4050 #### [facility] [address] [place], [address] MCH (RBC) [Entitic mass] 28.3 pg Normal 27.0-32.0 [facility] Comment on above: Order Comment: 301.1 Performed By: #### L 503.7505, L100.0500, L500.4050 #### [facility] [address] [place], [address] MCHC (RBC) [Mass/Vol] 31.0 g/dL Low 32-36 [facility] Comment on above: Order Comment: 301.1 Performed By: #### L 503.7505, L100.0500, L500.4050 #### [facility] [address] [place], [address] MCV (RBC) [Entitic vol] 91.3 fL Normal 80-94 [facility] Comment on above: Order Comment: 301.1 Performed By: #### L 503.7505, L100.0500, L500.4050 #### [facility] [address] [place], [address] Platelet mean volume (Bld) [Entitic vol] 9.8 fL Normal 6.2-12.0 [facility] Comment on above: Order Comment: 301.1 Performed By: #### L 503.7505, L100.0500, L500.4050 #### [facility] [address] [place], [address] Platelets (Bld) [#/Vol] 225 10*3/uL Normal 150-450 [facility] Comment on above: Order Comment: 301.1 Performed By: #### L 503.7505, L100.0500, L500.4050 #### [facility] [address] [place], [address] RBC (Bld) [#/Vol] 3.57 10*6/uL Low 4.6-6.2 [facility] Comment on above: Order Comment: 301.1 Performed By: #### L 503.7505, L100.0500, L500.4050 #### [facility] [address] [place], [address] RDW SD 47.6 fl High 35.1-43.9 [facility] Comment on above: Order Comment: 301.1 Performed By: #### L 503.7505, L100.0500, L500.4050 #### [facility] [address] [place], [address] WBC (Bld) [#/Vol] 5.5 10*3/uL Normal 4.4-11.0 [facility] Comment on above: Order Comment: 301.1 Performed By: #### L 503.7505, L100.0500, L500.4050 #### [facility] [address] [place], [address] Comprehensive Metabolic Prof ilon 03-17-2025 Albumin [Mass/Vol] 2.2 g/dL Low 3.4-4.8 [facility] Comment on above: Order Comment: SHREYAS Sommer PREVIOUS SPECIMEN REJECTED DUE TO RESULTS NOT COMING THROUGH AND SEEM TO BE ERRONEOUS. 01/22/25219 Mora Patel. NOTIFIED DELMY FOR REDRAW Performed By: #### L 509.7001, L100.0100, L503.6005, L503.7505, L501.3620, L500.2500, L501.5200, L500.3400 #### [facility] [address] [place], [address] Albumin/Globulin [Mass ratio] 0.6 {ratio} Low 0.9-2.4 [facility] Comment on above: Order Comment: REDRA W. PREVIOUS SPECIMEN REJECTED DUE TO RESULTS NOT COMING THROUGH AND SEEM TO BE ERRONEOUS. 01/22/25219 Mora Patel. NOTIFIED DELMY FOR REDRAW Performed By: #### L 509.7001, L100.0100, L503.6005, L503.7505, L501.3620, L500.2500, L501.5200, L500.3400 #### [facility] [address] [place], [place], [phone] PHOS 58 U/L Normal 40-129 [facility] Comment on above: Order Comment: REDRA W. PREVIOUS SPECIMEN REJECTED DUE TO RESULTS NOT COMING THROUGH AND SEEM TO BE ERRONEOUS. 01/22/25219 Mora Patel. NOTIFIED DELMY FOR REDRAW Performed By: #### L 509.7001, L100.0100, L503.6005, L503.7505, L501.3620, L500.2500, L501.5200, L500.3400 #### [facility] [address] [place], [address] ALT [Catalytic activity/Vol] 12 U/L Normal <=46 [facility] Comment on above: Order Comment: REDRA W. PREVIOUS SPECIMEN REJECTED DUE TO RESULTS NOT COMING THROUGH AND SEEM TO BE ERRONEOUS. 01/22/25219 Mora Patel. NOTIFIED DELMY FOR REDRAW Performed By: #### L 509.7001, L100.0100, L503.6005, L503.7505, L501.3620, L500.2500, L501.5200, L500.3400 #### [facility] [address] [place], [address] AST [Catalytic activity/Vol] 35 U/L Normal <=37 [facility] Comment on above: Order Comment: REDRA W. PREVIOUS SPECIMEN REJECTED DUE TO RESULTS NOT COMING THROUGH AND SEEM TO BE ERRONEOUS. 01/22/25219 Mora Patel. NOTIFIED DELMY FOR REDRAW Result Comment: Hemo lysis present, Results??could be affected. ?? Performed By: #### L 509.7001, L100.0100, L503.6005, L503.7505, L501.3620, L500.2500, L501.5200, L500.3400 #### [facility] [address] [place], [address] Bilirubin [Mass/Vol] 0.52 mg/dL Normal 0.00-1.30 [facility] Comment on above: Order Comment: REDRA W. PREVIOUS SPECIMEN REJECTED DUE TO RESULTS NOT COMING THROUGH AND SEEM TO BE ERRONEOUS. 01/22/25219 Mora Patel. NOTIFIED DELMY FOR REDRAW Performed By: #### L 509.7001, L100.0100, L503.6005, L503.7505, L501.3620, L500.2500, L501.5200, L500.3400 #### [facility] [address] [place], [address] BUN/CRE 14.1 RATIO Normal 10-20 [facility] Comment on above: Order Comment: REDRA W. PREVIOUS SPECIMEN REJECTED DUE TO RESULTS NOT COMING THROUGH AND SEEM TO BE ERRONEOUS. 01/22/25219 Mora Patel. NOTIFIED DELMY FOR REDRAW Performed By: #### L 509.7001, L100.0100, L503.6005, L503.7505, L501.3620, L500.2500, L501.5200, L500.3400 #### [facility] [address] [place], [address] Calcium [Mass/Vol] 8.2 mg/dL Normal 7.6-11.0 [facility] Comment on above: Order Comment: REDRA W. PREVIOUS SPECIMEN REJECTED DUE TO RESULTS NOT COMING THROUGH AND SEEM TO BE ERRONEOUS. 01/22/25219 Mora Patel. NOTIFIED DELMY FOR REDRAW Performed By: #### L 509.7001, L100.0100, L503.6005, L503.7505, L501.3620, L500.2500, L501.5200, L500.3400 #### [facility] [address] [place], [address] Chloride [Moles/Vol] 104 mmol/L Normal 98-108 [facility] Comment on above: Order Comment: REDRA W. PREVIOUS SPECIMEN REJECTED DUE TO RESULTS NOT COMING THROUGH AND SEEM TO BE ERRONEOUS. 01/22/25219 Mora Patel. NOTIFIED DELMY FOR REDRAW Performed By: #### L 509.7001, L100.0100, L503.6005, L503.7505, L501.3620, L500.2500, L501.5200, L500.3400 #### [facility] [address] [place], [address] CO2 [Moles/Vol] 21.2 mmol/L Normal 21.0-32.0 [facility] Comment on above: Order Comment: REDRA W. PREVIOUS SPECIMEN REJECTED DUE TO RESULTS NOT COMING THROUGH AND SEEM TO BE ERRONEOUS. 01/22/25219 Mora Patel. NOTIFIED DELMY FOR REDRAW Performed By: #### L 509.7001, L100.0100, L503.6005, L503.7505, L501.3620, L500.2500, L501.5200, L500.3400 #### [facility] [address] [place], [address] Creatinine [Mass/Vol] 0.46 mg/dL Low 0.70-1.20 [facility] Comment on above: Order Comment: REDRA W. PREVIOUS SPECIMEN REJECTED DUE TO RESULTS NOT COMING THROUGH AND SEEM TO BE ERRONEOUS. 01/22/25219 Mora Patel. NOTIFIED DELMY FOR REDRAW Performed By: #### L 509.7001, L100.0100, L503.6005, L503.7505, L501.3620, L500.2500, L501.5200, L500.3400 #### [facility] [address] [place], [place], [phone] (294) GAP 9 Normal 5-15 [facility] Comment on above: Order Comment: REDRA W. PREVIOUS SPECIMEN REJECTED DUE TO RESULTS NOT COMING THROUGH AND SEEM TO BE ERRONEOUS. 01/22/25219 Mora Patel. NOTIFIED DELMY FOR REDRAW Performed By: #### L 509.7001, L100.0100, L503.6005, L503.7505, L501.3620, L500.2500, L501.5200, L500.3400 #### [facility] [address] [place], [place], [phone] (237) GFR/1.73 sq M.predicted among non-blacks MDRD (S/P/Bld) [Vol rate/Area] 112 mL/min/{1.73_m2} Normal >60 [facility] Comment on above: Order Comment: REDRA W. PREVIOUS SPECIMEN REJECTED DUE TO RESULTS NOT COMING THROUGH AND SEEM TO BE ERRONEOUS. 01/22/25219 Mora Patel. NOTIFIED DELMY FOR REDRAW Result Comment: mL/m in/1.73m2 CKD-EPI Creatinine Equation (2020) Performed By: #### L 509.7001, L100.0100, L503.6005, L503.7505, L501.3620, L500.2500, L501.5200, L500.3400 #### [facility] [address] [place], [place], [phone] (406) Globulin (S) [Mass/Vol] 3.6 g/dL Normal 2.2-4.2 [facility] Comment on above: Order Comment: REDRA W. PREVIOUS SPECIMEN REJECTED DUE TO RESULTS NOT COMING THROUGH AND SEEM TO BE ERRONEOUS. 01/22/25219 Mora Patel. NOTIFIED DELMY FOR REDRAW Performed By: #### L 509.7001, L100.0100, L503.6005, L503.7505, L501.3620, L500.2500, L501.5200, L500.3400 #### [facility] [address] [place], [address] Glucose [Mass/Vol] 83 mg/dL Normal 70-99 [facility] Comment on above: Order Comment: REDRA W. PREVIOUS SPECIMEN REJECTED DUE TO RESULTS NOT COMING THROUGH AND SEEM TO BE ERRONEOUS. 01/22/25219 Mora Patel. NOTIFIED DELMY FOR REDRAW Performed By: #### L 509.7001, L100.0100, L503.6005, L503.7505, L501.3620, L500.2500, L501.5200, L500.3400 #### [facility] [address] [place], [address] Potassium [Moles/Vol] 4.3 mmol/L Normal 3.3-5.1 [facility] Comment on above: Order Comment: REDRA W. PREVIOUS SPECIMEN REJECTED DUE TO RESULTS NOT COMING THROUGH AND SEEM TO BE ERRONEOUS. 01/22/25219 Mora Patel. NOTIFIED DELMY FOR REDRAW Result Comment: Hemo lysis present, Results??could be affected. ?? Performed By: #### L 509.7001, L100.0100, L503.6005, L503.7505, L501.3620, L500.2500, L501.5200, L500.3400 #### [facility] [address] [place], [address] Sodium [Moles/Vol] 135 mmol/L Normal 133-145 [facility] Comment on above: Order Comment: REDRA W. PREVIOUS SPECIMEN REJECTED DUE TO RESULTS NOT COMING THROUGH AND SEEM TO BE ERRONEOUS. 01/22/25219 Mora Patel. NOTIFIED DELMY FOR REDRAW Performed By: #### L 509.7001, L100.0100, L503.6005, L503.7505, L501.3620, L500.2500, L501.5200, L500.3400 #### [facility] [address] [place], [address] T PROT 5.8 g/dL Low 5.9-8.4 [facility] Comment on above: Order Comment: REDRA W. PREVIOUS SPECIMEN REJECTED DUE TO RESULTS NOT COMING THROUGH AND SEEM TO BE ERRONEOUS. 01/22/25219 Mora Patel. NOTIFIED DELMY FOR REDRAW Performed By: #### L 509.7001, L100.0100, L503.6005, L503.7505, L501.3620, L500.2500, L501.5200, L500.3400 #### [facility] [address] [place], [address] Urea nitrogen [Mass/Vol] 6 mg/dL Normal 4-19 [facility] Comment on above: Order Comment: REDRA W. PREVIOUS SPECIMEN REJECTED DUE TO RESULTS NOT COMING THROUGH AND SEEM TO BE ERRONEOUS. 01/22/25219 Mora Patel. NOTIFIED DELMY FOR REDRAW Performed By: #### L 509.7001, L100.0100, L503.6005, L503.7505, L501.3620, L500.2500, L501.5200, L500.3400 #### [facility] [address] [place], [address] Pro- Brain NATRIURETIC PEPTI Ashlee 03-17-2025 Natriuretic peptide B (Bld) [Mass/Vol] 443 pg/mL Normal <=900 [facility] Comment on above: Order Comment: REDRA [...] L503.6005, L503.7505, L501.3620, L500.2500, L501.5200, L500.3400 #### [facility] [place], [address] Wound Cultureon 03-11-2025 #2 [facility] [place] [facility] ACINETOBACTER BAUMANNII CARBAPENEMASE MOLECULAR [...] TMP SMX Islt TAMMY <=20 S Normal [facility] Comment on above: Performed By: #### L 509.7001, L100.0100, L503.6005, L503.7505, L501.3620, L500.2500, L501.5200, L500.3400 #### [facility] [address] [place], [address] CBC W/Diff, Automatedon 10-2 Absolute Lymph 0.58 X10 3/uL Low 0.83-4.51 [facility] Comment on above: Order Comment: REDRA W. PREVIOUS SPECIMEN REJECTED DUE TO RESULTS NOT COMING THROUGH AND SEEM TO BE ERRONEOUS. 01/22/25219 Mora Patel. NOTIFIED DELMY FOR REDRAW Performed By: #### L 509.7001, L100.0100, L503.6005, L503.7505, L501.3620, L500.2500, L501.5200, L500.3400 #### [facility] [address] [place], [address] Absolute Neut 14.2 X10 3/uL High 2.0-7.7 [facility] Comment on above: Order Comment: REDRA W. PREVIOUS SPECIMEN REJECTED DUE TO RESULTS NOT COMING THROUGH AND SEEM TO BE ERRONEOUS. 01/22/25219 Mora Patel. NOTIFIED DELMY FOR REDRAW Performed By: #### L 509.7001, L100.0100, L503.6005, L503.7505, L501.3620, L500.2500, L501.5200, L500.3400 #### [facility] [address] [place], [address] Basophils/100 WBC (Bld) 0.5 % Normal 0-1 [facility] Comment on above: Order Comment: REDRA W. PREVIOUS SPECIMEN REJECTED DUE TO RESULTS NOT COMING THROUGH AND SEEM TO BE ERRONEOUS. 01/22/25219 Mora Patel. NOTIFIED DELMY FOR REDRAW Performed By: #### L 509.7001, L100.0100, L503.6005, L503.7505, L501.3620, L500.2500, L501.5200, L500.3400 #### [facility] [address] [place], [address] Eosinophils/100 WBC (Bld) 1.8 % Normal 0-5 [facility] Comment on above: Order Comment: REDRA W. PREVIOUS SPECIMEN REJECTED DUE TO RESULTS NOT COMING THROUGH AND SEEM TO BE ERRONEOUS. 01/22/25219 Mora Patel. NOTIFIED DELMY FOR REDRAW Performed By: #### L 509.7001, L100.0100, L503.6005, L503.7505, L501.3620, L500.2500, L501.5200, L500.3400 #### [facility] [address] [place], [address] Erythrocyte distribution width (RBC) [Ratio] 15.0 % High 11.6-14.6 [facility] Comment on above: Order Comment: REDRA W. PREVIOUS SPECIMEN REJECTED DUE TO RESULTS NOT COMING THROUGH AND SEEM TO BE ERRONEOUS. 01/22/25219 Mora Patel. NOTIFIED DELMY FOR REDRAW Performed By: #### L 509.7001, L100.0100, L503.6005, L503.7505, L501.3620, L500.2500, L501.5200, L500.3400 #### [facility] [address] [place], [address] Hematocrit (Bld) [Volume fraction] 34.6 % Low 40-54 [facility] Comment on above: Order Comment: REDRA W. PREVIOUS SPECIMEN REJECTED DUE TO RESULTS NOT COMING THROUGH AND SEEM TO BE ERRONEOUS. 01/22/25219 Mora Patel. NOTIFIED DELMY FOR REDRAW Performed By: #### L 509.7001, L100.0100, L503.6005, L503.7505, L501.3620, L500.2500, L501.5200, L500.3400 #### [facility] [address] [place], [address] Hemoglobin (Bld) [Mass/Vol] 10.8 g/dL Low 13.0-16.5 [facility] Comment on above: Order Comment: REDRA W. PREVIOUS SPECIMEN REJECTED DUE TO RESULTS NOT COMING THROUGH AND SEEM TO BE ERRONEOUS. 01/22/25219 Mora Patel. NOTIFIED DELMY FOR REDRAW Performed By: #### L 509.7001, L100.0100, L503.6005, L503.7505, L501.3620, L500.2500, L501.5200, L500.3400 #### [facility] [address] [place], [address] IG% 1.100 High 0.0-0.9 [facility] Comment on above: Order Comment: REDRA W. PREVIOUS SPECIMEN REJECTED DUE TO RESULTS NOT COMING THROUGH AND SEEM TO BE ERRONEOUS. 01/22/25219 Mora Patel. NOTIFIED DELMY FOR REDRAW Result Comment: IG% - Immature Granulocytes (promyelocytes, myelocytes and metamyelocytes) > 1% indicates that a LEFT SHIFT is Present. Performed By: #### L 509.7001, L100.0100, L503.6005, L503.7505, L501.3620, L500.2500, L501.5200, L500.3400 #### [facility] [address] [place], [address] Lymphocytes/100 WBC (Bld) 3.7 % Low 19-41 [facility] Comment on above: Order Comment: REDRA W. PREVIOUS SPECIMEN REJECTED DUE TO RESULTS NOT COMING THROUGH AND SEEM TO BE ERRONEOUS. 01/22/25219 Mora Patel. NOTIFIED DELMY FOR REDRAW Performed By: #### L 509.7001, L100.0100, L503.6005, L503.7505, L501.3620, L500.2500, L501.5200, L500.3400 #### [facility] [address] [place], [address] MCH (RBC) [Entitic mass] 28.7 pg Normal 27.0-32.0 [facility] Comment on above: Order Comment: REDRA W. PREVIOUS SPECIMEN REJECTED DUE TO RESULTS NOT COMING THROUGH AND SEEM TO BE ERRONEOUS. 01/22/25219 Mora Patel. NOTIFIED DELMY FOR REDRAW Performed By: #### L 509.7001, L100.0100, L503.6005, L503.7505, L501.3620, L500.2500, L501.5200, L500.3400 #### [facility] [address] [place], [address] MCHC (RBC) [Mass/Vol] 31.2 g/dL Low 32-36 [facility] Comment on above: Order Comment: REDRA W. PREVIOUS SPECIMEN REJECTED DUE TO RESULTS NOT COMING THROUGH AND SEEM TO BE ERRONEOUS. 01/22/25219 Mora Patel. NOTIFIED DELMY FOR REDRAW Performed By: #### L 509.7001, L100.0100, L503.6005, L503.7505, L501.3620, L500.2500, L501.5200, L500.3400 #### [facility] [address] [place], [address] MCV (RBC) [Entitic vol] 92.0 fL Normal 80-94 [facility] Comment on above: Order Comment: REDRA W. PREVIOUS SPECIMEN REJECTED DUE TO RESULTS NOT COMING THROUGH AND SEEM TO BE ERRONEOUS. 01/22/25219 Mora Patel. NOTIFIED DELMY FOR REDRAW Performed By: #### L 509.7001, L100.0100, L503.6005, L503.7505, L501.3620, L500.2500, L501.5200, L500.3400 #### [facility] [address] [place], [address] Monocytes/100 WBC (Bld) 1.2 % Normal 0-10 [facility] Comment on above: Order Comment: REDRA W. PREVIOUS SPECIMEN REJECTED DUE TO RESULTS NOT COMING THROUGH AND SEEM TO BE ERRONEOUS. 01/22/25219 Mora Patel. NOTIFIED DELMY FOR REDRAW Performed By: #### L 509.7001, L100.0100, L503.6005, L503.7505, L501.3620, L500.2500, L501.5200, L500.3400 #### [facility] [address] [place], [address] Neutrophils/100 WBC (Bld) 91.7 % High 47-70 [facility] Comment on above: Order Comment: REDRA W. PREVIOUS SPECIMEN REJECTED DUE TO RESULTS NOT COMING THROUGH AND SEEM TO BE ERRONEOUS. 01/22/25219 Mora Patel. NOTIFIED DELMY FOR REDRAW Performed By: #### L 509.7001, L100.0100, L503.6005, L503.7505, L501.3620, L500.2500, L501.5200, L500.3400 #### [facility] [address] [place], [address] Nucleated RBC (Bld) [#/Vol] 0 10*3/uL Normal 0-5 [facility] Comment on above: Order Comment: REDRA W. PREVIOUS SPECIMEN REJECTED DUE TO RESULTS NOT COMING THROUGH AND SEEM TO BE ERRONEOUS. 01/22/25219 Mora Patel. NOTIFIED DELMY FOR REDRAW Performed By: #### L 509.7001, L100.0100, L503.6005, L503.7505, L501.3620, L500.2500, L501.5200, L500.3400 #### [facility] [address] [place], [address] Platelet mean volume (Bld) [Entitic vol] 9.0 fL Normal 6.2-12.0 [facility] Comment on above: Order Comment: REDRA W. PREVIOUS SPECIMEN REJECTED DUE TO RESULTS NOT COMING THROUGH AND SEEM TO BE ERRONEOUS. 01/22/25219 Mora Patel. NOTIFIED DELMY FOR REDRAW Performed By: #### L 509.7001, L100.0100, L503.6005, L503.7505, L501.3620, L500.2500, L501.5200, L500.3400 #### [facility] [address] [place], [address] Platelets (Bld) [#/Vol] 327 10*3/uL Normal 150-450 [facility] Comment on above: Order Comment: REDRA W. PREVIOUS SPECIMEN REJECTED DUE TO RESULTS NOT COMING THROUGH AND SEEM TO BE ERRONEOUS. 01/22/25219 Mora Patel. NOTIFIED DELMY FOR REDRAW Performed By: #### L 509.7001, L100.0100, L503.6005, L503.7505, L501.3620, L500.2500, L501.5200, L500.3400 #### [facility] [address] [place], [address] RBC (Bld) [#/Vol] 3.76 10*6/uL Low 4.6-6.2 [facility] Comment on above: Order Comment: REDRA W. PREVIOUS SPECIMEN REJECTED DUE TO RESULTS NOT COMING THROUGH AND SEEM TO BE ERRONEOUS. 01/22/25219 Mora Patel. NOTIFIED DELMY FOR REDRAW Performed By: #### L 509.7001, L100.0100, L503.6005, L503.7505, L501.3620, L500.2500, L501.5200, L500.3400 #### [facility] [address] [place], [address] RDW SD 50.4 fl High 35.1-43.9 [facility] Comment on above: Order Comment: REDRA W. PREVIOUS SPECIMEN REJECTED DUE TO RESULTS NOT COMING THROUGH AND SEEM TO BE ERRONEOUS. 01/22/25219 Mora Patel. NOTIFIED DELMY FOR REDRAW Performed By: #### L 509.7001, L100.0100, L503.6005, L503.7505, L501.3620, L500.2500, L501.5200, L500.3400 #### [facility] [address] [place], [place], [id number] WBC (Bld) [#/Vol] 15.5 10*3/uL High 4.4-11.0 [facility] Comment on above: Order Comment: REDRA W. PREVIOUS SPECIMEN REJECTED DUE TO RESULTS NOT COMING THROUGH AND SEEM TO BE ERRONEOUS. 01/22/25219 Mora Patel. NOTIFIED DELMY FOR REDRAW Performed By: #### L 509.7001, L100.0100, L503.6005, L503.7505, L501.3620, L500.2500, L501.5200, L500.3400 #### [facility] [address] [place], [place], [id number] CRPon 03-10-2025 C-REACTIVE PROT 21.40 mg/L High 0.0-3.0 [facility] Comment on above: Order Comment: REDRA W. PREVIOUS SPECIMEN REJECTED DUE TO RESULTS NOT COMING THROUGH AND SEEM TO BE ERRONEOUS. 01/22/25219 Mora Paetl. NOTIFIED DELMY FOR REDRAW Performed By: #### L 509.7001, L100.0100, L503.6005, L503.7505, L501.3620, L500.2500, L501.5200, L500.3400 #### [facility] [address] [place], [place], [id number] Comprehensive Metabolic Prof ilon 03-10-2025 Albumin [Mass/Vol] 2.4 g/dL Low 3.4-4.8 [facility] Comment on above: Order Comment: REDRA W. PREVIOUS SPECIMEN REJECTED DUE TO RESULTS NOT COMING THROUGH AND SEEM TO BE ERRONEOUS. 01/22/25219 Mora Patel. NOTIFIED DELMY FOR REDRAW Performed By: #### L 509.7001, L100.0100, L503.6005, L503.7505, L501.3620, L500.2500, L501.5200, L500.3400 #### [facility] [address] [place], [address] Albumin/Globulin [Mass ratio] 0.5 {ratio} Low 0.9-2.4 [facility] Comment on above: Order Comment: REDRA W. PREVIOUS SPECIMEN REJECTED DUE TO RESULTS NOT COMING THROUGH AND SEEM TO BE ERRONEOUS. 01/22/25219 Mora Patel. NOTIFIED DELMY FOR REDRAW Performed By: #### L 509.7001, L100.0100, L503.6005, L503.7505, L501.3620, L500.2500, L501.5200, L500.3400 #### [facility] [address] [place], [address] (141 ALK PHOS 76 U/L Normal 40-129 [facility] Comment on above: Order Comment: REDRA W. PREVIOUS SPECIMEN REJECTED DUE TO RESULTS NOT COMING THROUGH AND SEEM TO BE ERRONEOUS. 01/22/25219 Mora Patel. NOTIFIED DELMY FOR REDRAW Performed By: #### L 509.7001, L100.0100, L503.6005, L503.7505, L501.3620, L500.2500, L501.5200, L500.3400 #### [facility] [address] [place], [place], [phone] (391 ALT [Catalytic activity/Vol] 14 U/L Normal <=46 [facility] Comment on above: Order Comment: REDRA W. PREVIOUS SPECIMEN REJECTED DUE TO RESULTS NOT COMING THROUGH AND SEEM TO BE ERRONEOUS. 01/22/25219 Mora Patel. NOTIFIED DELMY FOR REDRAW Performed By: #### L 509.7001, L100.0100, L503.6005, L503.7505, L501.3620, L500.2500, L501.5200, L500.3400 #### [facility] [address] [place], [address] AST [Catalytic activity/Vol] 32 U/L Normal <=37 [facility] Comment on above: Order Comment: REDRA W. PREVIOUS SPECIMEN REJECTED DUE TO RESULTS NOT COMING THROUGH AND SEEM TO BE ERRONEOUS. 01/22/25219 Mora Patel. NOTIFIED DELMY FOR REDRAW Performed By: #### L 509.7001, L100.0100, L503.6005, L503.7505, L501.3620, L500.2500, L501.5200, L500.3400 #### [facility] [address] [place], [address] Bilirubin [Mass/Vol] 0.56 mg/dL Normal 0.00-1.30 [facility] Comment on above: Order Comment: REDRA W. PREVIOUS SPECIMEN REJECTED DUE TO RESULTS NOT COMING THROUGH AND SEEM TO BE ERRONEOUS. 01/22/25219 Mora Patel. NOTIFIED DELMY FOR REDRAW Performed By: #### L 509.7001, L100.0100, L503.6005, L503.7505, L501.3620, L500.2500, L501.5200, L500.3400 #### [facility] [address] [place], [address] BUN/CRE 12.7 RATIO Normal 10-20 [facility] Comment on above: Order Comment: REDRA W. PREVIOUS SPECIMEN REJECTED DUE TO RESULTS NOT COMING THROUGH AND SEEM TO BE ERRONEOUS. 01/22/25219 Mora Patel. NOTIFIED DELMY FOR REDRAW Performed By: #### L 509.7001, L100.0100, L503.6005, L503.7505, L501.3620, L500.2500, L501.5200, L500.3400 #### [facility] [address] [place], [address] Calcium [Mass/Vol] 8.8 mg/dL Normal 7.6-11.0 [facility] Comment on above: Order Comment: REDRA W. PREVIOUS SPECIMEN REJECTED DUE TO RESULTS NOT COMING THROUGH AND SEEM TO BE ERRONEOUS. 01/22/25219 Mora Patel. NOTIFIED DELMY FOR REDRAW Performed By: #### L 509.7001, L100.0100, L503.6005, L503.7505, L501.3620, L500.2500, L501.5200, L500.3400 #### [facility] [address] [place], [place], [phone] (871) Chloride [Moles/Vol] 102 mmol/L Normal 98-108 [facility] Comment on above: Order Comment: REDRA W. PREVIOUS SPECIMEN REJECTED DUE TO RESULTS NOT COMING THROUGH AND SEEM TO BE ERRONEOUS. 01/22/25219 Mora Patel. NOTIFIED DELMY FOR REDRAW Performed By: #### L 509.7001, L100.0100, L503.6005, L503.7505, L501.3620, L500.2500, L501.5200, L500.3400 #### [facility] [address] [place], [address] CO2 [Moles/Vol] 21.8 mmol/L Normal 21.0-32.0 [facility] Comment on above: Order Comment: REDRA W. PREVIOUS SPECIMEN REJECTED DUE TO RESULTS NOT COMING THROUGH AND SEEM TO BE ERRONEOUS. 01/22/25219 Mora Patel. NOTIFIED DELMY FOR REDRAW Performed By: #### L 509.7001, L100.0100, L503.6005, L503.7505, L501.3620, L500.2500, L501.5200, L500.3400 #### [facility] [address] [place], [place], [phone] (019) Creatinine [Mass/Vol] 0.45 mg/dL Low 0.70-1.20 [facility] Comment on above: Order Comment: REDRA W. PREVIOUS SPECIMEN REJECTED DUE TO RESULTS NOT COMING THROUGH AND SEEM TO BE ERRONEOUS. 01/22/25219 Mora Patel. NOTIFIED DELMY FOR REDRAW Performed By: #### L 509.7001, L100.0100, L503.6005, L503.7505, L501.3620, L500.2500, L501.5200, L500.3400 #### [facility] [address] [place], [place], [id number] GAP 13 Normal 5-15 [facility] Comment on above: Order Comment: REDRA W. PREVIOUS SPECIMEN REJECTED DUE TO RESULTS NOT COMING THROUGH AND SEEM TO BE ERRONEOUS. 01/22/25219 Mora Patel. NOTIFIED DELMY FOR REDRAW Performed By: #### L 509.7001, L100.0100, L503.6005, L503.7505, L501.3620, L500.2500, L501.5200, L500.3400 #### [facility] [address] [place], [address] GFR/1.73 sq M.predicted among non-blacks MDRD (S/P/Bld) [Vol rate/Area] 112 mL/min/{1.73_m2} Normal >60 [facility] Comment on above: Order Comment: REDRA W. PREVIOUS SPECIMEN REJECTED DUE TO RESULTS NOT COMING THROUGH AND SEEM TO BE ERRONEOUS. 01/22/25219 Mora Patel. NOTIFIED DELMY FOR REDRAW Result Comment: mL/m in/1.73m2 CKD-EPI Creatinine Equation (2020) Performed By: #### L 509.7001, L100.0100, L503.6005, L503.7505, L501.3620, L500.2500, L501.5200, L500.3400 #### [facility] [address] [place], [place], [phone] Globulin (S) [Mass/Vol] 4.7 g/dL High 2.2-4.2 [facility] Comment on above: Order Comment: REDRA W. PREVIOUS SPECIMEN REJECTED DUE TO RESULTS NOT COMING THROUGH AND SEEM TO BE ERRONEOUS. 01/22/25219 Mora Patel. NOTIFIED DELMY FOR REDRAW Performed By: #### L 509.7001, L100.0100, L503.6005, L503.7505, L501.3620, L500.2500, L501.5200, L500.3400 #### [facility] [address] [place], [address] Glucose [Mass/Vol] 71 mg/dL Normal 70-99 [facility] Comment on above: Order Comment: REDRA W. PREVIOUS SPECIMEN REJECTED DUE TO RESULTS NOT COMING THROUGH AND SEEM TO BE ERRONEOUS. 01/22/25219 Mora Patel. NOTIFIED DELMY FOR REDRAW Performed By: #### L 509.7001, L100.0100, L503.6005, L503.7505, L501.3620, L500.2500, L501.5200, L500.3400 #### [facility] [address] [place], [address] Potassium [Moles/Vol] 4.1 mmol/L Normal 3.3-5.1 [facility] Comment on above: Order Comment: REDRA W. PREVIOUS SPECIMEN REJECTED DUE TO RESULTS NOT COMING THROUGH AND SEEM TO BE ERRONEOUS. 01/22/25219 Mora Patel. NOTIFIED DELMY FOR REDRAW Performed By: #### L 509.7001, L100.0100, L503.6005, L503.7505, L501.3620, L500.2500, L501.5200, L500.3400 #### [facility] [address] [place], [address] Sodium [Moles/Vol] 137 mmol/L Normal 133-145 [facility] Comment on above: Order Comment: REDRA W. PREVIOUS SPECIMEN REJECTED DUE TO RESULTS NOT COMING THROUGH AND SEEM TO BE ERRONEOUS. 01/22/25219 Mora Patel. NOTIFIED DELMY FOR REDRAW Performed By: #### L 509.7001, L100.0100, L503.6005, L503.7505, L501.3620, L500.2500, L501.5200, L500.3400 #### [facility] [address] [place], [address] T PROT 7.1 g/dL Normal 5.9-8.4 [facility] Comment on above: Order Comment: REDRA W. PREVIOUS SPECIMEN REJECTED DUE TO RESULTS NOT COMING THROUGH AND SEEM TO BE ERRONEOUS. 01/22/25219 Mora Patel. NOTIFIED DELMY FOR REDRAW Performed By: #### L 509.7001, L100.0100, L503.6005, L503.7505, L501.3620, L500.2500, L501.5200, L500.3400 #### [facility] [address] [place], [address] Urea nitrogen [Mass/Vol] 6 mg/dL Normal 4-19 [facility] Comment on above: Order Comment: REDRA W. PREVIOUS SPECIMEN REJECTED DUE TO RESULTS NOT COMING THROUGH AND SEEM TO BE ERRONEOUS. 01/22/25219 Mora Patel. NOTIFIED DELMY FOR REDRAW Performed By: #### L 509.7001, L100.0100, L503.6005, L503.7505, L501.3620, L500.2500, L501.5200, L500.3400 #### [facility] [address] [place], [place], [id number] Magnesiumon 03-10-2025 Magnesium [Mass/Vol] 2.0 mg/dL Normal 1.5-2.2 [facility] Comment on above: Order Comment: REDRA W. PREVIOUS SPECIMEN REJECTED DUE TO RESULTS NOT COMING THROUGH AND SEEM TO BE ERRONEOUS. 01/22/25219 Mora Patel. NOTIFIED DELMY FOR REDRAW Performed By: #### L 509.7001, L100.0100, L503.6005, L503.7505, L501.3620, L500.2500, L501.5200, L500.3400 #### [facility] [address] [place], [address] CBC W/Diff, Automatedon - Absolute Lymph 0.88 X10 3/uL Normal 0.83-4.51 [facility] Comment on above: Order Comment: REDRA W. PREVIOUS SPECIMEN REJECTED DUE TO RESULTS NOT COMING THROUGH AND SEEM TO BE ERRONEOUS. 01/22/25219 Mora Patel. NOTIFIED DELMY FOR REDRAW Performed By: #### L 509.7001, L100.0100, L503.6005, L503.7505, L501.3620, L500.2500, L501.5200, L500.3400 #### [facility] [facility] [address] [place], [address] Absolute Neut 3.6 X10 3/uL Normal 2.0-7.7 [facility] Comment on above: Order Comment: REDRA W. PREVIOUS SPECIMEN REJECTED DUE TO RESULTS NOT COMING THROUGH AND SEEM TO BE ERRONEOUS. 01/22/25219 Mora Patel. NOTIFIED DELMY FOR REDRAW Performed By: #### L 509.7001, L100.0100, L503.6005, L503.7505, L501.3620, L500.2500, L501.5200, L500.3400 #### [facility] [address] [place], [address] Basophils/100 WBC (Bld) 1.2 % High 0-1 [facility] Comment on above: Order Comment: REDRA W. PREVIOUS SPECIMEN REJECTED DUE TO RESULTS NOT COMING THROUGH AND SEEM TO BE ERRONEOUS. 01/22/25219 Mora Patel. NOTIFIED DELMY FOR REDRAW Performed By: #### L 509.7001, L100.0100, L503.6005, L503.7505, L501.3620, L500.2500, L501.5200, L500.3400 #### [facility] [address] [place], [address] Eosinophils/100 WBC (Bld) 5.1 % High 0-5 [facility] Comment on above: Order Comment: REDRA W. PREVIOUS SPECIMEN REJECTED DUE TO RESULTS NOT COMING THROUGH AND SEEM TO BE ERRONEOUS. 01/22/25219 Mora Patel. NOTIFIED DELMY FOR REDRAW Performed By: #### L 509.7001, L100.0100, L503.6005, L503.7505, L501.3620, L500.2500, L501.5200, L500.3400 #### [facility] [address] [place], [address] Erythrocyte distribution width (RBC) [Ratio] 15.7 % High 11.6-14.6 [facility] Comment on above: Order Comment: REDRA W. PREVIOUS SPECIMEN REJECTED DUE TO RESULTS NOT COMING THROUGH AND SEEM TO BE ERRONEOUS. 01/22/25219 Mora Patel. NOTIFIED DELMY FOR REDRAW Performed By: #### L 509.7001, L100.0100, L503.6005, L503.7505, L501.3620, L500.2500, L501.5200, L500.3400 #### [facility] [address] [place], [place], [phone] (251) Hematocrit (Bld) [Volume fraction] 32.2 % Low 40-54 [facility] Comment on above: Order Comment: REDRA W. PREVIOUS SPECIMEN REJECTED DUE TO RESULTS NOT COMING THROUGH AND SEEM TO BE ERRONEOUS. 01/22/25219 Mora Patel. NOTIFIED DELMY FOR REDRAW Performed By: #### L 509.7001, L100.0100, L503.6005, L503.7505, L501.3620, L500.2500, L501.5200, L500.3400 #### [facility] [address] [place], [place], [phone] (048) Hemoglobin (Bld) [Mass/Vol] 9.8 g/dL Low 13.0-16.5 [facility] Comment on above: Order Comment: REDRA W. PREVIOUS SPECIMEN REJECTED DUE TO RESULTS NOT COMING THROUGH AND SEEM TO BE ERRONEOUS. 01/22/25219 Mora Patel. NOTIFIED DELMY FOR REDRAW Performed By: #### L 509.7001, L100.0100, L503.6005, L503.7505, L501.3620, L500.2500, L501.5200, L500.3400 #### [facility] [address] [place], [address] IG% 0.900 Normal 0.0-0.9 [facility] Comment on above: Order Comment: REDRA W. PREVIOUS SPECIMEN REJECTED DUE TO RESULTS NOT COMING THROUGH AND SEEM TO BE ERRONEOUS. 01/22/25219 Mora Patel. NOTIFIED DELMY FOR REDRAW Result Comment: IG% - Immature Granulocytes (promyelocytes, myelocytes and metamyelocytes) > 1% indicates that a LEFT SHIFT is Present. Performed By: #### L 509.7001, L100.0100, L503.6005, L503.7505, L501.3620, L500.2500, L501.5200, L500.3400 #### [facility] [address] [place], [address] Lymphocytes/100 WBC (Bld) 15.1 % Low 19-41 [facility] Comment on above: Order Comment: REDRA W. PREVIOUS SPECIMEN REJECTED DUE TO RESULTS NOT COMING THROUGH AND SEEM TO BE ERRONEOUS. 01/22/25219 Mora Patel. NOTIFIED DELMY FOR REDRAW Performed By: #### L 509.7001, L100.0100, L503.6005, L503.7505, L501.3620, L500.2500, L501.5200, L500.3400 #### [facility] [address] [place], [address] MCH (RBC) [Entitic mass] 28.5 pg Normal 27.0-32.0 [facility] Comment on above: Order Comment: REDRA W. PREVIOUS SPECIMEN REJECTED DUE TO RESULTS NOT COMING THROUGH AND SEEM TO BE ERRONEOUS. 01/22/25219 Mora Patel. NOTIFIED DELMY FOR REDRAW Performed By: #### L 509.7001, L100.0100, L503.6005, L503.7505, L501.3620, L500.2500, L501.5200, L500.3400 #### [facility] [address] [place], [address] MCHC (RBC) [Mass/Vol] 30.4 g/dL Low 32-36 [facility] Comment on above: Order Comment: REDRA W. PREVIOUS SPECIMEN REJECTED DUE TO RESULTS NOT COMING THROUGH AND SEEM TO BE ERRONEOUS. 01/22/25219 Mora Patel. NOTIFIED DELMY FOR REDRAW Performed By: #### L 509.7001, L100.0100, L503.6005, L503.7505, L501.3620, L500.2500, L501.5200, L500.3400 #### [facility] [address] [place], [address] MCV (RBC) [Entitic vol] 93.6 fL Normal 80-94 [facility] Comment on above: Order Comment: REDRA W. PREVIOUS SPECIMEN REJECTED DUE TO RESULTS NOT COMING THROUGH AND SEEM TO BE ERRONEOUS. 01/22/25219 Mora Patel. NOTIFIED DELMY FOR REDRAW Performed By: #### L 509.7001, L100.0100, L503.6005, L503.7505, L501.3620, L500.2500, L501.5200, L500.3400 #### [facility] [address] [place], [address] Monocytes/100 WBC (Bld) 16.4 % High 0-10 [facility] Comment on above: Order Comment: REDRA W. PREVIOUS SPECIMEN REJECTED DUE TO RESULTS NOT COMING THROUGH AND SEEM TO BE ERRONEOUS. 01/22/25219 Mora Patel. NOTIFIED DELMY FOR REDRAW Performed By: #### L 509.7001, L100.0100, L503.6005, L503.7505, L501.3620, L500.2500, L501.5200, L500.3400 #### [facility] [address] [place], [address] Neutrophils/100 WBC (Bld) 61.3 % Normal 47-70 [facility] Comment on above: Order Comment: REDRA W. PREVIOUS SPECIMEN REJECTED DUE TO RESULTS NOT COMING THROUGH AND SEEM TO BE ERRONEOUS. 01/22/25219 Mora Patel. NOTIFIED DELMY FOR REDRAW Performed By: #### L 509.7001, L100.0100, L503.6005, L503.7505, L501.3620, L500.2500, L501.5200, L500.3400 #### [facility] [address] [place], [address] Nucleated RBC (Bld) [#/Vol] 0 10*3/uL Normal 0-5 [facility] Comment on above: Order Comment: REDRA W. PREVIOUS SPECIMEN REJECTED DUE TO RESULTS NOT COMING THROUGH AND SEEM TO BE ERRONEOUS. 01/22/25219 Mora Patel. NOTIFIED DELMY FOR REDRAW Performed By: #### L 509.7001, L100.0100, L503.6005, L503.7505, L501.3620, L500.2500, L501.5200, L500.3400 #### [facility] [address] [place], [address] Platelet mean volume (Bld) [Entitic vol] 8.3 fL Normal 6.2-12.0 [facility] Comment on above: Order Comment: REDRA W. PREVIOUS SPECIMEN REJECTED DUE TO RESULTS NOT COMING THROUGH AND SEEM TO BE ERRONEOUS. 01/22/25219 Mora Patel. NOTIFIED DELMY FOR REDRAW Performed By: #### L 509.7001, L100.0100, L503.6005, L503.7505, L501.3620, L500.2500, L501.5200, L500.3400 #### [facility] [address] [place], [address] Platelets (Bld) [#/Vol] 350 10*3/uL Normal 150-450 [facility] Comment on above: Order Comment: REDRA W. PREVIOUS SPECIMEN REJECTED DUE TO RESULTS NOT COMING THROUGH AND SEEM TO BE ERRONEOUS. 01/22/25219 Mora Patel. NOTIFIED DELMY FOR REDRAW Performed By: #### L 509.7001, L100.0100, L503.6005, L503.7505, L501.3620, L500.2500, L501.5200, L500.3400 #### [facility] [address] [place], [address] RBC (Bld) [#/Vol] 3.44 10*6/uL Low 4.6-6.2 [facility] Comment on above: Order Comment: REDRA W. PREVIOUS SPECIMEN REJECTED DUE TO RESULTS NOT COMING THROUGH AND SEEM TO BE ERRONEOUS. 01/22/25219 Mora Patel. NOTIFIED DELMY FOR REDRAW Performed By: #### L 509.7001, L100.0100, L503.6005, L503.7505, L501.3620, L500.2500, L501.5200, L500.3400 #### [facility] [address] [place], [address] RDW SD 53.7 fl High 35.1-43.9 [facility] Comment on above: Order Comment: REDRA W. PREVIOUS SPECIMEN REJECTED DUE TO RESULTS NOT COMING THROUGH AND SEEM TO BE ERRONEOUS. 01/22/25219 Mora Patel. NOTIFIED DELMY FOR REDRAW Performed By: #### L 509.7001, L100.0100, L503.6005, L503.7505, L501.3620, L500.2500, L501.5200, L500.3400 #### [facility] [address] [place], [address] WBC (Bld) [#/Vol] 5.8 10*3/uL Normal 4.4-11.0 [facility] Comment on above: Order Comment: REDRA W. PREVIOUS SPECIMEN REJECTED DUE TO RESULTS NOT COMING THROUGH AND SEEM TO BE ERRONEOUS. 01/22/25219 Mora Patel. NOTIFIED DELMY FOR REDRAW Performed By: #### L 509.7001, L100.0100, L503.6005, L503.7505, L501.3620, L500.2500, L501.5200, L500.3400 #### [facility] [address] [place], [address] CRPon 03-03-2025 C-REACTIVE PROT 49.60 mg/L High 0.0-3.0 [facility] Comment on above: Order Comment: REDRA W. PREVIOUS SPECIMEN REJECTED DUE TO RESULTS NOT COMING THROUGH AND SEEM TO BE ERRONEOUS. 01/22/25219 Mora Patel. NOTIFIED DELMY FOR REDRAW Performed By: #### L 509.7001, L100.0100, L503.6005, L503.7505, L501.3620, L500.2500, L501.5200, L500.3400 #### [facility] [address] [place], [address] Comprehensive Metabolic Prof ilon 03-03-2025 Albumin [Mass/Vol] 2.2 g/dL Low 3.4-4.8 [facility] Comment on above: Order Comment: REDRA W. PREVIOUS SPECIMEN REJECTED DUE TO RESULTS NOT COMING THROUGH AND SEEM TO BE ERRONEOUS. 01/22/25219 Moar Patel. NOTIFIED DELMY FOR REDRAW Performed By: #### L 509.7001, L100.0100, L503.6005, L503.7505, L501.3620, L500.2500, L501.5200, L500.3400 #### [facility] [address] [place], [place], [id number] Albumin/Globulin [Mass ratio] 0.5 {ratio} Low 0.9-2.4 [facility] Comment on above: Order Comment: REDRA W. PREVIOUS SPECIMEN REJECTED DUE TO RESULTS NOT COMING THROUGH AND SEEM TO BE ERRONEOUS. 01/22/25219 Mora Patel. NOTIFIED DELMY FOR REDRAW Performed By: #### L 509.7001, L100.0100, L503.6005, L503.7505, L501.3620, L500.2500, L501.5200, L500.3400 #### [facility] [address] [place], [address] ALK PHOS 87 U/L Normal 40-129 [facility] Comment on above: Order Comment: REDRA W. PREVIOUS SPECIMEN REJECTED DUE TO RESULTS NOT COMING THROUGH AND SEEM TO BE ERRONEOUS. 01/22/25219 Mora Patel. NOTIFIED DELMY FOR REDRAW Performed By: #### L 509.7001, L100.0100, L503.6005, L503.7505, L501.3620, L500.2500, L501.5200, L500.3400 #### [facility] [address] [place], [address] ALT [Catalytic activity/Vol] 7 U/L Normal <=46 [facility] Comment on above: Order Comment: REDRA W. PREVIOUS SPECIMEN REJECTED DUE TO RESULTS NOT COMING THROUGH AND SEEM TO BE ERRONEOUS. 01/22/25219 Mora Patel. NOTIFIED DELMY FOR REDRAW Performed By: #### L 509.7001, L100.0100, L503.6005, L503.7505, L501.3620, L500.2500, L501.5200, L500.3400 #### [facility] [address] [place], [address] AST [Catalytic activity/Vol] 25 U/L Normal <=37 [facility] Comment on above: Order Comment: REDRA W. PREVIOUS SPECIMEN REJECTED DUE TO RESULTS NOT COMING THROUGH AND SEEM TO BE ERRONEOUS. 01/22/25219 Mora Patel. NOTIFIED DELMY FOR REDRAW Performed By: #### L 509.7001, L100.0100, L503.6005, L503.7505, L501.3620, L500.2500, L501.5200, L500.3400 #### [facility] [address] [place], [address] Bilirubin [Mass/Vol] 0.40 mg/dL Normal 0.00-1.30 [facility] Comment on above: Order Comment: REDRA W. PREVIOUS SPECIMEN REJECTED DUE TO RESULTS NOT COMING THROUGH AND SEEM TO BE ERRONEOUS. 01/22/25219 Mora Patel. NOTIFIED DELMY FOR REDRAW Performed By: #### L 509.7001, L100.0100, L503.6005, L503.7505, L501.3620, L500.2500, L501.5200, L500.3400 #### [facility] [address] [place], [address] BUN/CRE 8.4 RATIO Low 10-20 [facility] Comment on above: Order Comment: REDRA W. PREVIOUS SPECIMEN REJECTED DUE TO RESULTS NOT COMING THROUGH AND SEEM TO BE ERRONEOUS. 01/22/25219 Mora Patel. NOTIFIED DELMY FOR REDRAW Performed By: #### L 509.7001, L100.0100, L503.6005, L503.7505, L501.3620, L500.2500, L501.5200, L500.3400 #### [facility] [address] [place], [address] Calcium [Mass/Vol] 8.2 mg/dL Normal 7.6-11.0 [facility] Comment on above: Order Comment: REDRA W. PREVIOUS SPECIMEN REJECTED DUE TO RESULTS NOT COMING THROUGH AND SEEM TO BE ERRONEOUS. 01/22/25219 Mora Patel. NOTIFIED DELMY FOR REDRAW Performed By: #### L 509.7001, L100.0100, L503.6005, L503.7505, L501.3620, L500.2500, L501.5200, L500.3400 #### [facility] [address] [place], [address] Chloride [Moles/Vol] 97 mmol/L Low 98-108 [facility] Comment on above: Order Comment: REDRA W. PREVIOUS SPECIMEN REJECTED DUE TO RESULTS NOT COMING THROUGH AND SEEM TO BE ERRONEOUS. 01/22/25219 Mora Patel. NOTIFIED DELMY FOR REDRAW Performed By: #### L 509.7001, L100.0100, L503.6005, L503.7505, L501.3620, L500.2500, L501.5200, L500.3400 #### [facility] [address] [place], [place], [phone] (078) CO2 [Moles/Vol] 28.3 mmol/L Normal 21.0-32.0 [facility] Comment on above: Order Comment: REDRA W. PREVIOUS SPECIMEN REJECTED DUE TO RESULTS NOT COMING THROUGH AND SEEM TO BE ERRONEOUS. 01/22/25219 Mora Patel. NOTIFIED DELMY FOR REDRAW Performed By: #### L 509.7001, L100.0100, L503.6005, L503.7505, L501.3620, L500.2500, L501.5200, L500.3400 #### [facility] [address] [place], [place], [phone] (343) Creatinine [Mass/Vol] 0.53 mg/dL Low 0.70-1.20 [facility] Comment on above: Order Comment: REDRA W. PREVIOUS SPECIMEN REJECTED DUE TO RESULTS NOT COMING THROUGH AND SEEM TO BE ERRONEOUS. 01/22/25219 Mora Patel. NOTIFIED DELMY FOR REDRAW Performed By: #### L 509.7001, L100.0100, L503.6005, L503.7505, L501.3620, L500.2500, L501.5200, L500.3400 #### [facility] [address] [place], [place], [phone] (188) GAP 8 Normal 5-15 [facility] Comment on above: Order Comment: REDRA W. PREVIOUS SPECIMEN REJECTED DUE TO RESULTS NOT COMING THROUGH AND SEEM TO BE ERRONEOUS. 01/22/25219 Mora Patel. NOTIFIED DELMY FOR REDRAW Performed By: #### L 509.7001, L100.0100, L503.6005, L503.7505, L501.3620, L500.2500, L501.5200, L500.3400 #### [facility] [address] [place], [place], GFR/1.73 sq M.predicted among non-blacks MDRD (S/P/Bld) [Vol rate/Area] 107 mL/min/{1.73_m2} Normal >60 [facility] Comment on above: Order Comment: REDRA W. PREVIOUS SPECIMEN REJECTED DUE TO RESULTS NOT COMING THROUGH AND SEEM TO BE ERRONEOUS. 01/22/25219 Mora Patel. NOTIFIED DELMY FOR REDRAW Result Comment: mL/m in/1.73m2 CKD-EPI Creatinine Equation (2020) Performed By: #### L 509.7001, L100.0100, L503.6005, L503.7505, L501.3620, L500.2500, L501.5200, L500.3400 #### [facility] [address] [place], [place], [phone] (639) Globulin (S) [Mass/Vol] 4.8 g/dL High 2.2-4.2 [facility] Comment on above: Order Comment: REDRA W. PREVIOUS SPECIMEN REJECTED DUE TO RESULTS NOT COMING THROUGH AND SEEM TO BE ERRONEOUS. 01/22/25219 Mora Patel. NOTIFIED DELMY FOR REDRAW Performed By: #### L 509.7001, L100.0100, L503.6005, L503.7505, L501.3620, L500.2500, L501.5200, L500.3400 #### [facility] [address] [place], [address] Glucose [Mass/Vol] 90 mg/dL Normal 70-99 [facility] Comment on above: Order Comment: REDRA W. PREVIOUS SPECIMEN REJECTED DUE TO RESULTS NOT COMING THROUGH AND SEEM TO BE ERRONEOUS. 01/22/25219 Mora Patel. NOTIFIED DELMY FOR REDRAW Performed By: #### L 509.7001, L100.0100, L503.6005, L503.7505, L501.3620, L500.2500, L501.5200, L500.3400 #### [facility] [address] [place], [address] Potassium [Moles/Vol] 4.3 mmol/L Normal 3.3-5.1 [facility] Comment on above: Order Comment: REDRA W. PREVIOUS SPECIMEN REJECTED DUE TO RESULTS NOT COMING THROUGH AND SEEM TO BE ERRONEOUS. 01/22/25219 Mora Patel. NOTIFIED DELMY FOR REDRAW Performed By: #### L 509.7001, L100.0100, L503.6005, L503.7505, L501.3620, L500.2500, L501.5200, L500.3400 #### [facility] [address] [place], [address] Sodium [Moles/Vol] 133 mmol/L Normal 133-145 [facility] Comment on above: Order Comment: REDRA W. PREVIOUS SPECIMEN REJECTED DUE TO RESULTS NOT COMING THROUGH AND SEEM TO BE ERRONEOUS. 01/22/25219 Mora Patel. NOTIFIED DELMY FOR REDRAW Performed By: #### L 509.7001, L100.0100, L503.6005, L503.7505, L501.3620, L500.2500, L501.5200, L500.3400 #### [facility] [address] [place], [address] T PROT 7.0 g/dL Normal 5.9-8.4 [facility] Comment on above: Order Comment: REDRA W. PREVIOUS SPECIMEN REJECTED DUE TO RESULTS NOT COMING THROUGH AND SEEM TO BE ERRONEOUS. 01/22/25219 Mora Patel. NOTIFIED DELMY FOR REDRAW Performed By: #### L 509.7001, L100.0100, L503.6005, L503.7505, L501.3620, L500.2500, L501.5200, L500.3400 #### [facility] [address] [place], [address] Urea nitrogen [Mass/Vol] 5 mg/dL Normal 4-19 [facility] Comment on above: Order Comment: REDRA W. PREVIOUS SPECIMEN REJECTED DUE TO RESULTS NOT COMING THROUGH AND SEEM TO BE ERRONEOUS. 01/22/25219 Mora Patel. NOTIFIED DELMY FOR REDRAW Performed By: #### L 509.7001, L100.0100, L503.6005, L503.7505, L501.3620, L500.2500, L501.5200, L500.3400 #### [facility] [address] [place], [address] Magnesiumon 03-03-2025 Magnesium [Mass/Vol] 2.0 mg/dL Normal 1.5-2.2 [facility] Comment on above: Order Comment: REDRA W. PREVIOUS SPECIMEN REJECTED DUE TO RESULTS NOT COMING THROUGH AND SEEM TO BE ERRONEOUS. 01/22/25219 Mora Patel. NOTIFIED DELMY FOR REDRAW Performed By: #### L 509.7001, L100.0100, L503.6005, L503.7505, L501.3620, L500.2500, L501.5200, L500.3400 #### [facility] [address] [place], [address] Wound Cultureon 03-03-2025 WC NA [...] TMP SMX Islt TAMMY <=20 S Normal [facility] Comment on above: Performed By: #### L 509.7001, L100.0100, L503.6005, L503.7505, L501.3620, L500.2500, L501.5200, L500.3400 #### [facility] [address] [place], [place], [id number] Gram Stainon 02-27-2025 GS Negative Normal [facility] Comment on above: Performed By: #### L 509.7001, L100.0100, L503.6005, L503.7505, L501.3620, L500.2500, L501.5200, L500.3400 #### [facility] [address] [place], [address] GS NA Gram Stain 1+ Gram negative rods 1+ Gram positive cocci No Epithelial cells Normal [facility] Comment on above: Performed By: #### L 509.7001, L100.0100, L503.6005, L503.7505, L501.3620, L500.2500, L501.5200, L500.3400 #### [facility] [address] [place], [place], [address] CBC W/Diff, Automatedon - Absolute Lymph 0.89 X10 3/uL Normal 0.83-4.51 [facility] Comment on above: Order Comment: SHREYAS Sommer PREVIOUS SPECIMEN REJECTED DUE TO RESULTS NOT COMING THROUGH AND SEEM TO BE ERRONEOUS. 01/22/250 Mora Patel. NOTIFIED DELMY FOR REDRAW Performed By: #### L 509.7001, L100.0100, L503.6005, L503.7505, L501.3620, L500.2500, L501.5200, L500.3400 #### [facility] [address] [place], [address] Absolute Neut 4.4 X10 3/uL Normal 2.0-7.7 [facility] Comment on above: Order Comment: REDRA W. PREVIOUS SPECIMEN REJECTED DUE TO RESULTS NOT COMING THROUGH AND SEEM TO BE ERRONEOUS. 01/22/25219 Mora Patel. NOTIFIED DELMY FOR REDRAW Performed By: #### L 509.7001, L100.0100, L503.6005, L503.7505, L501.3620, L500.2500, L501.5200, L500.3400 #### [facility] [address] [place], [address] Basophils/100 WBC (Bld) 0.9 % Normal 0-1 [facility] Comment on above: Order Comment: REDRA W. PREVIOUS SPECIMEN REJECTED DUE TO RESULTS NOT COMING THROUGH AND SEEM TO BE ERRONEOUS. 01/22/25219 Mora Patel. NOTIFIED DELMY FOR REDRAW Performed By: #### L 509.7001, L100.0100, L503.6005, L503.7505, L501.3620, L500.2500, L501.5200, L500.3400 #### [facility] [address] [place], [address] Eosinophils/100 WBC (Bld) 9.5 % High 0-5 [facility] Comment on above: Order Comment: REDRA W. PREVIOUS SPECIMEN REJECTED DUE TO RESULTS NOT COMING THROUGH AND SEEM TO BE ERRONEOUS. 01/22/25219 Mora Patel. NOTIFIED DELMY FOR REDRAW Performed By: #### L 509.7001, L100.0100, L503.6005, L503.7505, L501.3620, L500.2500, L501.5200, L500.3400 #### [facility] [address] [place], [address] Erythrocyte distribution width (RBC) [Ratio] 16.1 % High 11.6-14.6 [facility] Comment on above: Order Comment: REDRA W. PREVIOUS SPECIMEN REJECTED DUE TO RESULTS NOT COMING THROUGH AND SEEM TO BE ERRONEOUS. 01/22/25219 Mora Patel. NOTIFIED DELMY FOR REDRAW Performed By: #### L 509.7001, L100.0100, L503.6005, L503.7505, L501.3620, L500.2500, L501.5200, L500.3400 #### [facility] [address] [place], [place], [phone] ([phone]) Hematocrit (Bld) [Volume fraction] 28.4 % Low 40-54 [facility] Comment on above: Order Comment: REDRA W. PREVIOUS SPECIMEN REJECTED DUE TO RESULTS NOT COMING THROUGH AND SEEM TO BE ERRONEOUS. 01/22/25219 Mora Patel. NOTIFIED DELMY FOR REDRAW Performed By: #### L 509.7001, L100.0100, L503.6005, L503.7505, L501.3620, L500.2500, L501.5200, L500.3400 #### [facility] [address] [place], [place], [phone] (801) Hemoglobin (Bld) [Mass/Vol] 8.7 g/dL Low 13.0-16.5 [facility] Comment on above: Order Comment: REDRA W. PREVIOUS SPECIMEN REJECTED DUE TO RESULTS NOT COMING THROUGH AND SEEM TO BE ERRONEOUS. 01/22/25219 Mora Patel. NOTIFIED DELMY FOR REDRAW Performed By: #### L 509.7001, L100.0100, L503.6005, L503.7505, L501.3620, L500.2500, L501.5200, L500.3400 #### [facility] [address] [place], [address] IG% 0.600 Normal 0.0-0.9 [facility] Comment on above: Order Comment: REDRA W. PREVIOUS SPECIMEN REJECTED DUE TO RESULTS NOT COMING THROUGH AND SEEM TO BE ERRONEOUS. 01/22/25219 Mora Patel. NOTIFIED DELMY FOR REDRAW Result Comment: IG% - Immature Granulocytes (promyelocytes, myelocytes and metamyelocytes) > 1% indicates that a LEFT SHIFT is Present. Performed By: #### L 509.7001, L100.0100, L503.6005, L503.7505, L501.3620, L500.2500, L501.5200, L500.3400 #### [facility] [address] [place], [address] Lymphocytes/100 WBC (Bld) 12.6 % Low 19-41 [facility] Comment on above: Order Comment: REDRA W. PREVIOUS SPECIMEN REJECTED DUE TO RESULTS NOT COMING THROUGH AND SEEM TO BE ERRONEOUS. 01/22/25219 Mora Patel. NOTIFIED DELMY FOR REDRAW Performed By: #### L 509.7001, L100.0100, L503.6005, L503.7505, L501.3620, L500.2500, L501.5200, L500.3400 #### [facility] [address] [place], [address] MCH (RBC) [Entitic mass] 29.0 pg Normal 27.0-32.0 [facility] Comment on above: Order Comment: REDRA W. PREVIOUS SPECIMEN REJECTED DUE TO RESULTS NOT COMING THROUGH AND SEEM TO BE ERRONEOUS. 01/22/25219 Mora Patel. NOTIFIED DELMY FOR REDRAW Performed By: #### L 509.7001, L100.0100, L503.6005, L503.7505, L501.3620, L500.2500, L501.5200, L500.3400 #### [facility] [address] [place], [address] MCHC (RBC) [Mass/Vol] 30.6 g/dL Low 32-36 [facility] [facility] Comment on above: Order Comment: REDRA W. PREVIOUS SPECIMEN REJECTED DUE TO RESULTS NOT COMING THROUGH AND SEEM TO BE ERRONEOUS. 01/22/25219 Mora Patel. NOTIFIED DELMY FOR REDRAW Performed By: #### L 509.7001, L100.0100, L503.6005, L503.7505, L501.3620, L500.2500, L501.5200, L500.3400 #### [facility] [address] [place], [address] MCV (RBC) [Entitic vol] 94.7 fL High 80-94 [facility] Comment on above: Order Comment: REDRA W. PREVIOUS SPECIMEN REJECTED DUE TO RESULTS NOT COMING THROUGH AND SEEM TO BE ERRONEOUS. 01/22/25219 Mora Patel. NOTIFIED DELMY FOR REDRAW Performed By: #### L 509.7001, L100.0100, L503.6005, L503.7505, L501.3620, L500.2500, L501.5200, L500.3400 #### [facility] [address] [place], [address] Monocytes/100 WBC (Bld) 14.6 % High 0-10 [facility] Comment on above: Order Comment: REDRA W. PREVIOUS SPECIMEN REJECTED DUE TO RESULTS NOT COMING THROUGH AND SEEM TO BE ERRONEOUS. 01/22/25219 Mora Patel. NOTIFIED DELMY FOR REDRAW Performed By: #### L 509.7001, L100.0100, L503.6005, L503.7505, L501.3620, L500.2500, L501.5200, L500.3400 #### [facility] [address] [place], [address] Neutrophils/100 WBC (Bld) 61.8 % Normal 47-70 [facility] Comment on above: Order Comment: REDRA W. PREVIOUS SPECIMEN REJECTED DUE TO RESULTS NOT COMING THROUGH AND SEEM TO BE ERRONEOUS. 01/22/25219 Mora Patel. NOTIFIED DELMY FOR REDRAW Performed By: #### L 509.7001, L100.0100, L503.6005, L503.7505, L501.3620, L500.2500, L501.5200, L500.3400 #### [facility] [address] [place], [address] Nucleated RBC (Bld) [#/Vol] 0 10*3/uL Normal 0-5 [facility] Comment on above: Order Comment: REDRA W. PREVIOUS SPECIMEN REJECTED DUE TO RESULTS NOT COMING THROUGH AND SEEM TO BE ERRONEOUS. 01/22/25219 Mora Patel. NOTIFIED DELMY FOR REDRAW Performed By: #### L 509.7001, L100.0100, L503.6005, L503.7505, L501.3620, L500.2500, L501.5200, L500.3400 #### [facility] [address] [place], [address] Platelet mean volume (Bld) [Entitic vol] 8.5 fL Normal 6.2-12.0 [facility] Comment on above: Order Comment: REDRA W. PREVIOUS SPECIMEN REJECTED DUE TO RESULTS NOT COMING THROUGH AND SEEM TO BE ERRONEOUS. 01/22/25219 Mora Patel. NOTIFIED DELMY FOR REDRAW Performed By: #### L 509.7001, L100.0100, L503.6005, L503.7505, L501.3620, L500.2500, L501.5200, L500.3400 #### [facility] [address] [place], [address] Platelets (Bld) [#/Vol] 335 10*3/uL Normal 150-450 [facility] Comment on above: Order Comment: REDRA W. PREVIOUS SPECIMEN REJECTED DUE TO RESULTS NOT COMING THROUGH AND SEEM TO BE ERRONEOUS. 01/22/25219 Mora Patel. NOTIFIED DELMY FOR REDRAW Performed By: #### L 509.7001, L100.0100, L503.6005, L503.7505, L501.3620, L500.2500, L501.5200, L500.3400 #### [facility] [address] [place], [address] RBC (Bld) [#/Vol] 3.00 10*6/uL Low 4.6-6.2 [facility] Comment on above: Order Comment: REDRA W. PREVIOUS SPECIMEN REJECTED DUE TO RESULTS NOT COMING THROUGH AND SEEM TO BE ERRONEOUS. 01/22/25219 Mora Patel. NOTIFIED DELMY FOR REDRAW Performed By: #### L 509.7001, L100.0100, L503.6005, L503.7505, L501.3620, L500.2500, L501.5200, L500.3400 #### [facility] [address] [place], [place], [phone] RDW SD 54.7 fl High 35.1-43.9 [facility] Comment on above: Order Comment: REDRA W. PREVIOUS SPECIMEN REJECTED DUE TO RESULTS NOT COMING THROUGH AND SEEM TO BE ERRONEOUS. 01/22/25219 Mora Patel. NOTIFIED DELMY FOR REDRAW Performed By: #### L 509.7001, L100.0100, L503.6005, L503.7505, L501.3620, L500.2500, L501.5200, L500.3400 #### [facility] [address] [place], [place], [phone] ([phone] WBC (Bld) [#/Vol] 7.1 10*3/uL Normal 4.4-11.0 [facility] Comment on above: Order Comment: REDRA W. PREVIOUS SPECIMEN REJECTED DUE TO RESULTS NOT COMING THROUGH AND SEEM TO BE ERRONEOUS. 01/22/25219 Mora Patel. NOTIFIED DELMY FOR REDRAW Performed By: #### L 509.7001, L100.0100, L503.6005, L503.7505, L501.3620, L500.2500, L501.5200, L500.3400 #### [facility] [address] [place], [place], [id number] CRPon 02-24-2025 C-REACTIVE PROT 46.10 mg/L High 0.0-3.0 [facility] Comment on above: Order Comment: REDRA W. PREVIOUS SPECIMEN REJECTED DUE TO RESULTS NOT COMING THROUGH AND SEEM TO BE ERRONEOUS. 01/22/25219 Mora Patel. NOTIFIED DELMY FOR REDRAW Performed By: #### L 509.7001, L100.0100, L503.6005, L503.7505, L501.3620, L500.2500, L501.5200, L500.3400 #### [facility] [address] [place], [place], [id number] Comprehensive Metabolic Prof ilon 02-24-2025 Albumin [Mass/Vol] 2.1 g/dL Low 3.4-4.8 [facility] Comment on above: Order Comment: REDRA W. PREVIOUS SPECIMEN REJECTED DUE TO RESULTS NOT COMING THROUGH AND SEEM TO BE ERRONEOUS. 01/22/25219 Mora Patel. NOTIFIED DELMY FOR REDRAW Performed By: #### L 509.7001, L100.0100, L503.6005, L503.7505, L501.3620, L500.2500, L501.5200, L500.3400 #### [facility] [address] [place], [place], [id number] Albumin/Globulin [Mass ratio] 0.5 {ratio} Low 0.9-2.4 [facility] Comment on above: Order Comment: REDRA W. PREVIOUS SPECIMEN REJECTED DUE TO RESULTS NOT COMING THROUGH AND SEEM TO BE ERRONEOUS. 01/22/25219 Mora Patel. NOTIFIED DELMY FOR REDRAW Performed By: #### L 509.7001, L100.0100, L503.6005, L503.7505, L501.3620, L500.2500, L501.5200, L500.3400 #### [facility] [address] [place], [address] ALK PHOS 77 U/L Normal 40-129 [facility] Comment on above: Order Comment: REDRA W. PREVIOUS SPECIMEN REJECTED DUE TO RESULTS NOT COMING THROUGH AND SEEM TO BE ERRONEOUS. 01/22/25219 Mora Patel. NOTIFIED DELMY FOR REDRAW Performed By: #### L 509.7001, L100.0100, L503.6005, L503.7505, L501.3620, L500.2500, L501.5200, L500.3400 #### [facility] [address] [place], [address] ALT [Catalytic activity/Vol] 6 U/L Normal <=46 [facility] Comment on above: Order Comment: REDRA W. PREVIOUS SPECIMEN REJECTED DUE TO RESULTS NOT COMING THROUGH AND SEEM TO BE ERRONEOUS. 01/22/25219 Mora Patel. NOTIFIED DELMY FOR REDRAW Performed By: #### L 509.7001, L100.0100, L503.6005, L503.7505, L501.3620, L500.2500, L501.5200, L500.3400 #### [facility] [address] [place], [address] AST [Catalytic activity/Vol] 20 U/L Normal <=37 [facility] Comment on above: Order Comment: REDRA W. PREVIOUS SPECIMEN REJECTED DUE TO RESULTS NOT COMING THROUGH AND SEEM TO BE ERRONEOUS. 01/22/25219 Mora Patel. NOTIFIED DELMY FOR REDRAW Performed By: #### L 509.7001, L100.0100, L503.6005, L503.7505, L501.3620, L500.2500, L501.5200, L500.3400 #### [facility] [address] [place], [address] Bilirubin [Mass/Vol] 0.34 mg/dL Normal 0.00-1.30 [facility] Comment on above: Order Comment: REDRA W. PREVIOUS SPECIMEN REJECTED DUE TO RESULTS NOT COMING THROUGH AND SEEM TO BE ERRONEOUS. 01/22/25219 Mora Patel. NOTIFIED DELMY FOR REDRAW Performed By: #### L 509.7001, L100.0100, L503.6005, L503.7505, L501.3620, L500.2500, L501.5200, L500.3400 #### [facility] [address] [place], [address] BUN/CRE 11.3 RATIO Normal 10-20 [facility] Comment on above: Order Comment: REDRA W. PREVIOUS SPECIMEN REJECTED DUE TO RESULTS NOT COMING THROUGH AND SEEM TO BE ERRONEOUS. 01/22/25219 Mora Patel. NOTIFIED DELMY FOR REDRAW Performed By: #### L 509.7001, L100.0100, L503.6005, L503.7505, L501.3620, L500.2500, L501.5200, L500.3400 #### [facility] [address] [place], [address] Calcium [Mass/Vol] 8.0 mg/dL Normal 7.6-11.0 [facility] Comment on above: Order Comment: REDRA W. PREVIOUS SPECIMEN REJECTED DUE TO RESULTS NOT COMING THROUGH AND SEEM TO BE ERRONEOUS. 01/22/25219 Mora Patel. NOTIFIED DELMY FOR REDRAW Performed By: #### L 509.7001, L100.0100, L503.6005, L503.7505, L501.3620, L500.2500, L501.5200, L500.3400 #### [facility] [address] [place], [address] Chloride [Moles/Vol] 101 mmol/L Normal 98-108 [facility] Comment on above: Order Comment: REDRA W. PREVIOUS SPECIMEN REJECTED DUE TO RESULTS NOT COMING THROUGH AND SEEM TO BE ERRONEOUS. 01/22/25219 Mora Patel. NOTIFIED DELMY FOR REDRAW Performed By: #### L 509.7001, L100.0100, L503.6005, L503.7505, L501.3620, L500.2500, L501.5200, L500.3400 #### [facility] [address] [place], [place], [phone] CO2 [Moles/Vol] 28.3 mmol/L Normal 21.0-32.0 [facility] Comment on above: Order Comment: REDRA W. PREVIOUS SPECIMEN REJECTED DUE TO RESULTS NOT COMING THROUGH AND SEEM TO BE ERRONEOUS. 01/22/25219 Mora Patel. NOTIFIED DELMY FOR REDRAW Performed By: #### L 509.7001, L100.0100, L503.6005, L503.7505, L501.3620, L500.2500, L501.5200, L500.3400 #### [facility] [address], [address] Creatinine [Mass/Vol] 0.49 mg/dL Low 0.70-1.20 [facility] Comment on above: Order Comment: REDRA W. PREVIOUS SPECIMEN REJECTED DUE TO RESULTS NOT COMING THROUGH AND SEEM TO BE ERRONEOUS. 01/22/25219 Mora Patel. NOTIFIED DELMY FOR REDRAW Performed By: #### L 509.7001, L100.0100, L503.6005, L503.7505, L501.3620, L500.2500, L501.5200, L500.3400 #### [facility] [address] [place], [place], [id number] GAP 7 Normal 5-15 [facility] Comment on above: Order Comment: REDRA W. PREVIOUS SPECIMEN REJECTED DUE TO RESULTS NOT COMING THROUGH AND SEEM TO BE ERRONEOUS. 01/22/25219 oMra Patel. NOTIFIED DELMY FOR REDRAW Performed By: #### L 509.7001, L100.0100, L503.6005, L503.7505, L501.3620, L500.2500, L501.5200, L500.3400 #### [facility] [address], [place], [id number] GFR/1.73 sq M.predicted among non-blacks MDRD (S/P/Bld) [Vol rate/Area] 110 mL/min/{1.73_m2} Normal >60 [facility] Comment on above: Order Comment: REDRA W. PREVIOUS SPECIMEN REJECTED DUE TO RESULTS NOT COMING THROUGH AND SEEM TO BE ERRONEOUS. 01/22/25219 Mora Patel. NOTIFIED DELMY FOR REDRAW Result Comment: mL/m in/1.73m2 CKD-EPI Creatinine Equation (2020) Performed By: #### L 509.7001, L100.0100, L503.6005, L503.7505, L501.3620, L500.2500, L501.5200, L500.3400 #### [facility] [address] [facility] [place], [address] Globulin (S) [Mass/Vol] 4.5 g/dL High 2.2-4.2 [facility] Comment on above: Order Comment: REDRA W. PREVIOUS SPECIMEN REJECTED DUE TO RESULTS NOT COMING THROUGH AND SEEM TO BE ERRONEOUS. 01/22/25219 Mora Patel. NOTIFIED DELMY FOR REDRAW Performed By: #### L 509.7001, L100.0100, L503.6005, L503.7505, L501.3620, L500.2500, L501.5200, L500.3400 #### [facility] [address], [place], [phone] Glucose [Mass/Vol] 88 mg/dL Normal 70-99 [facility] Comment on above: Order Comment: REDRA W. PREVIOUS SPECIMEN REJECTED DUE TO RESULTS NOT COMING THROUGH AND SEEM TO BE ERRONEOUS. 01/22/25219 Mora Patel. NOTIFIED DELMY FOR REDRAW Performed By: #### L 509.7001, L100.0100, L503.6005, L503.7505, L501.3620, L500.2500, L501.5200, L500.3400 #### [facility] [address] [place], [address] Potassium [Moles/Vol] 3.9 mmol/L Normal 3.3-5.1 [facility] Comment on above: Order Comment: REDRA W. PREVIOUS SPECIMEN REJECTED DUE TO RESULTS NOT COMING THROUGH AND SEEM TO BE ERRONEOUS. 01/22/25219 Mora Patel. NOTIFIED DELMY FOR REDRAW Performed By: #### L 509.7001, L100.0100, L503.6005, L503.7505, L501.3620, L500.2500, L501.5200, L500.3400 #### [facility] [address] [place], [address] Sodium [Moles/Vol] 136 mmol/L Normal 133-145 [facility] Comment on above: Order Comment: REDRA W. PREVIOUS SPECIMEN REJECTED DUE TO RESULTS NOT COMING THROUGH AND SEEM TO BE ERRONEOUS. 01/22/25219 Mora Patel. NOTIFIED DELMY FOR REDRAW Performed By: #### L 509.7001, L100.0100, L503.6005, L503.7505, L501.3620, L500.2500, L501.5200, L500.3400 #### [facility] [address] [place], [address] T PROT 6.5 g/dL Normal 5.9-8.4 [facility] Comment on above: Order Comment: REDRA W. PREVIOUS SPECIMEN REJECTED DUE TO RESULTS NOT COMING THROUGH AND SEEM TO BE ERRONEOUS. 01/22/25219 Mora Patel. NOTIFIED DELMY FOR REDRAW Performed By: #### L 509.7001, L100.0100, L503.6005, L503.7505, L501.3620, L500.2500, L501.5200, L500.3400 #### [facility] [address] [place], [address] Urea nitrogen [Mass/Vol] 6 mg/dL Normal 4-19 [facility] Comment on above: Order Comment: REDRA W. PREVIOUS SPECIMEN REJECTED DUE TO RESULTS NOT COMING THROUGH AND SEEM TO BE ERRONEOUS. 01/22/25219 Mora Patel. NOTIFIED DELMY FOR REDRAW Performed By: #### L 509.7001, L100.0100, L503.6005, L503.7505, L501.3620, L500.2500, L501.5200, L500.3400 #### [facility] [address] [place], [address] Magnesiumon 02-24-2025 Magnesium [Mass/Vol] 1.8 mg/dL Normal 1.5-2.2 [facility] Comment on above: Order Comment: REDRA W. PREVIOUS SPECIMEN REJECTED DUE TO RESULTS NOT COMING THROUGH AND SEEM TO BE ERRONEOUS. 01/22/25219 Mora Patel. NOTIFIED DELMY FOR REDRAW Performed By: #### L 509.7001, L100.0100, L503.6005, L503.7505, L501.3620, L500.2500, L501.5200, L500.3400 #### [facility] [address] [place], [place], [phone] Basic Metabolic Profile (BMP )on 02-19-2025 BUN/CRE 11.0 RATIO Normal 03-02 [facility] Comment on above: Performed By: #### L 509.7001, L100.0100, L503.6005, L503.7505, L501.3620, L500.2500, L501.5200, L500.3400 #### [facility] [address] [place], [place], [phone] Calcium [Mass/Vol] 7.3 mg/dL Low 7.6-11.0 [facility] Comment on above: Performed By: #### L 509.7001, L100.0100, L503.6005, L503.7505, L501.3620, L500.2500, L501.5200, L500.3400 #### [facility] [address] [place], [address] Chloride [Moles/Vol] 104 mmol/L Normal 98-108 [facility] Comment on above: Performed By: #### L 509.7001, L100.0100, L503.6005, L503.7505, L501.3620, L500.2500, L501.5200, L500.3400 #### [facility] [address] [place], [address] CO2 [Moles/Vol] 25.1 mmol/L Normal 21.0-32.0 [facility] Comment on above: Performed By: #### L 509.7001, L100.0100, L503.6005, L503.7505, L501.3620, L500.2500, L501.5200, L500.3400 #### [facility] [address] [place], [address] ([address] Creatinine [Mass/Vol] 0.54 mg/dL Low 0.70-1.20 [facility] Comment on above: Performed By: #### L 509.7001, L100.0100, L503.6005, L503.7505, L501.3620, L500.2500, L501.5200, L500.3400 #### [facility] [address] [place], [address] GAP 8 Normal 5-15 [facility] Comment on above: Performed By: #### L 509.7001, L100.0100, L503.6005, L503.7505, L501.3620, L500.2500, L501.5200, L500.3400 #### [facility] [address] [place], [address] GFR/1.73 sq M.predicted among non-blacks MDRD (S/P/Bld) [Vol rate/Area] 107 mL/min/{1.73_m2} Normal >60 [facility] Comment on above: Result Comment: mL/m in/1.73m2 CKD-EPI Creatinine Equation (2020) Performed By: #### L 509.7001, L100.0100, L503.6005, L503.7505, L501.3620, L500.2500, L501.5200, L500.3400 #### [facility] [address] [place], [address] Glucose [Mass/Vol] 90 mg/dL Normal 70-99 [facility] Comment on above: Performed By: #### L 509.7001, L100.0100, L503.6005, L503.7505, L501.3620, L500.2500, L501.5200, L500.3400 #### [facility] [address] [place], [address] Potassium [Moles/Vol] 3.9 mmol/L Normal 3.3-5.1 [facility] Comment on above: Result Comment: Hemo lysis present, Results??could be affected. ?? Performed By: #### L 509.7001, L100.0100, L503.6005, L503.7505, L501.3620, L500.2500, L501.5200, L500.3400 #### [facility] [address] [place], [address] Sodium [Moles/Vol] 136 mmol/L Normal 133-145 [facility] Comment on above: Performed By: #### L 509.7001, L100.0100, L503.6005, L503.7505, L501.3620, L500.2500, L501.5200, L500.3400 #### [facility] [address] [place], [address] Urea nitrogen [Mass/Vol] 6 mg/dL Normal 4-19 [facility] Comment on above: Performed By: #### L 509.7001, L100.0100, L503.6005, L503.7505, L501.3620, L500.2500, L501.5200, L500.3400 #### [facility] [address] [facility] [place], [address] CBC W/Diff, Automatedon 10-0 9-2025 Absolute Lymph 0.82 X10 3/uL Low 0.83-4.51 [facility] Comment on above: Performed By: #### L 509.7001, L100.0100, L503.6005, L503.7505, L501.3620, L500.2500, L501.5200, L500.3400 #### [facility] [address] [facility] [place], [address] Absolute Neut 7.4 X10 3/uL Normal 2.0-7.7 [facility] Comment on above: Performed By: #### L 509.7001, L100.0100, L503.6005, L503.7505, L501.3620, L500.2500, L501.5200, L500.3400 #### [facility] [address] [facility] [place], [address] Basophils/100 WBC (Bld) 0.7 % Normal 0-1 [facility] Comment on above: Performed By: #### L 509.7001, L100.0100, L503.6005, L503.7505, L501.3620, L500.2500, L501.5200, L500.3400 #### [facility] [address] [place], [address] Eosinophils/100 WBC (Bld) 4.3 % Normal 0-5 [facility] Comment on above: Performed By: #### L 509.7001, L100.0100, L503.6005, L503.7505, L501.3620, L500.2500, L501.5200, L500.3400 #### [facility] [address] [facility] [place], [address] Erythrocyte distribution width (RBC) [Ratio] 16.0 % High 11.6-14.6 [facility] Comment on above: Performed By: #### L 509.7001, L100.0100, L503.6005, L503.7505, L501.3620, L500.2500, L501.5200, L500.3400 #### [facility] [address] [place], [address] Hematocrit (Bld) [Volume fraction] 26.1 % Low 40-54 [facility] Comment on above: Performed By: #### L 509.7001, L100.0100, L503.6005, L503.7505, L501.3620, L500.2500, L501.5200, L500.3400 #### [facility] [address] [facility] [place], [address] Hemoglobin (Bld) [Mass/Vol] 8.1 g/dL Low 13.0-16.5 [facility] Comment on above: Performed By: #### L 509.7001, L100.0100, L503.6005, L503.7505, L501.3620, L500.2500, L501.5200, L500.3400 #### [facility] [address] [place], [address] IG% 2.000 High 0.0-0.9 [facility] Comment on above: Result Comment: IG% - Immature Granulocytes (promyelocytes, myelocytes and metamyelocytes) > 1% indicates that a LEFT SHIFT is Present. Performed By: #### L 509.7001, L100.0100, L503.6005, L503.7505, L501.3620, L500.2500, L501.5200, L500.3400 #### [facility] [address] [facility] [place], [address] Lymphocytes/100 WBC (Bld) 8.3 % Low 19-41 [facility] Comment on above: Performed By: #### L 509.7001, L100.0100, L503.6005, L503.7505, L501.3620, L500.2500, L501.5200, L500.3400 #### [facility] [address] [place], [address] MCH (RBC) [Entitic mass] 29.0 pg Normal 27.0-32.0 [facility] Comment on above: Performed By: #### L 509.7001, L100.0100, L503.6005, L503.7505, L501.3620, L500.2500, L501.5200, L500.3400 #### [facility] [address] [place], [address] MCHC (RBC) [Mass/Vol] 31.0 g/dL Low 32-36 [facility] Comment on above: Performed By: #### L 509.7001, L100.0100, L503.6005, L503.7505, L501.3620, L500.2500, L501.5200, L500.3400 #### [facility] [address] [place], [address] MCV (RBC) [Entitic vol] 93.5 fL Normal 80-94 [facility] Comment on above: Performed By: #### L 509.7001, L100.0100, L503.6005, L503.7505, L501.3620, L500.2500, L501.5200, L500.3400 #### [facility] [address] [place], [address] Monocytes/100 WBC (Bld) 10.1 % High 0-10 [facility] Comment on above: Performed By: #### L 509.7001, L100.0100, L503.6005, L503.7505, L501.3620, L500.2500, L501.5200, L500.3400 #### [facility] [address] [place], [address] Neutrophils/100 WBC (Bld) 74.6 % High 47-70 [facility] Comment on above: Performed By: #### L 509.7001, L100.0100, L503.6005, L503.7505, L501.3620, L500.2500, L501.5200, L500.3400 #### [facility] [address] [place], [address] Nucleated RBC (Bld) [#/Vol] 0 10*3/uL Normal 0-5 [facility] Comment on above: Performed By: #### L 509.7001, L100.0100, L503.6005, L503.7505, L501.3620, L500.2500, L501.5200, L500.3400 #### [facility] [address] [place], [address] Platelet mean volume (Bld) [Entitic vol] 9.1 fL Normal 6.2-12.0 [facility] Comment on above: Performed By: #### L 509.7001, L100.0100, L503.6005, L503.7505, L501.3620, L500.2500, L501.5200, L500.3400 #### [facility] [address] [place], [address] Platelets (Bld) [#/Vol] 397 10*3/uL Normal 150-450 [facility] Comment on above: Performed By: #### L 509.7001, L100.0100, L503.6005, L503.7505, L501.3620, L500.2500, L501.5200, L500.3400 #### [facility] [address] [place], [address] RBC (Bld) [#/Vol] 2.79 10*6/uL Low 4.6-6.2 [facility] Comment on above: Performed By: #### L 509.7001, L100.0100, L503.6005, L503.7505, L501.3620, L500.2500, L501.5200, L500.3400 #### [facility] [address] [place], [address] RDW SD 54.6 fl High 35.1-43.9 [facility] Comment on above: Performed By: #### L 509.7001, L100.0100, L503.6005, L503.7505, L501.3620, L500.2500, L501.5200, L500.3400 #### [facility] [address] [place], [place], [id number] (709) WBC (Bld) [#/Vol] 9.9 10*3/uL Normal 4.4-11.0 [facility] Comment on above: Performed By: #### L 509.7001, L100.0100, L503.6005, L503.7505, L501.3620, L500.2500, L501.5200, L500.3400 #### [facility] [address] [place], [place], [id number] [phone] Hemoglobin A1con 02-19-2025 HbA1c (Bld) [Mass fraction] 5.1 % Normal <=5.6 [facility] Comment on above: Result Comment: Norm al < 5.7 % Prediabetic 5.7 - 6.4 % Diabetic >or= 6.5 % Please note range changes. Performed By: #### L 509.7001, L100.0100, L503.6005, L503.7505, L501.3620, L500.2500, L501.5200, L500.3400 #### [facility] [address] [place], [place], [id number] [phone] Magnesiumon 02-19-2025 Magnesium [Mass/Vol] 1.8 mg/dL Normal 1.5-2.2 [facility] Comment on above: Performed By: #### L 509.7001, L100.0100, L503.6005, L503.7505, L501.3620, L500.2500, L501.5200, L500.3400 #### [facility] [address] [place], [address] Thyroid Stim Hormone (TSH)on 02-19-2025 TSH 1.380 uIU/mL Normal 0.300-4.200 [facility] Comment on above: Performed By: #### L 509.7001, L100.0100, L503.6005, L503.7505, L501.3620, L500.2500, L501.5200, L500.3400 #### [facility] [address], [place], [id number] Vitamin B12on 02-19-2025 Cobalamin (Vitamin B12) [Mass/Vol] 1008 pg/mL High 180-914 [facility] Comment on above: Performed By: #### L 509.7001, L100.0100, L503.6005, L503.7505, L501.3620, L500.2500, L501.5200, L500.3400 #### [facility] [address], [place], [address] Vitamin D,25 Hydroxyon 02-19 Vitamin D 25-OH < 6.0 Low 30-100 [facility] Comment on above: Result Comment: [place] min D Status Deficiency: <20 ng/mL (50nmol/L) Insufficiency: 20-30 ng/mL (50-75 nmol/L) Sufficiency: 30-100 ng/mL (75-250 nmol/L) Toxicity: >100 ng/mL (>250 nmol/L) Performed By: #### L 509.7001, L100.0100, L503.6005, L503.7505, L501.3620, L500.2500, L501.5200, L500.3400 #### [facility] [address] [place], [address] CONSULTon 02-18-2025 CONSULT [facility] Disch [place] 02-18-2025 Disch [facility] PHOSPHORUSon 02-18-2025 Phosphate [Mass/Vol] 2.4 mg/dL Normal 2.3-3.7 [facility] Comment on above: Performed By: #### 4 6299 ####[facility] [address], [place] [address] Wojciech Oneal M.D. [id number] BASIC METABOLIC PANELon 10- Anion gap [Moles/Vol] 13 mmol/L Normal 10-20 [facility] Comment on above: Order Comment: [facility] has implemented the eGFR calculation approach that does not have a coefficient for race that conforms to the NKF-ASN Task Force Recommendations. Performed By: #### 4 6124 ####[facility] [address], [place] [address] Wojciech Oneal M.D. [id number] Calcium [Mass/Vol] 7.5 mg/dL Low 8.4-10.2 [facility] Comment on above: Order Comment: [facility] has implemented the eGFR calculation approach that does not have a coefficient for race that conforms to the NKF-ASN Task Force Recommendations. Performed By: #### 4 6124 ####[facility] [address], [place] [address] Wojciech Oneal M.D. [id number] Chloride [Moles/Vol] 104 mmol/L Normal 98-108 [facility] Comment on above: Order Comment: [facility] has implemented the eGFR calculation approach that does not have a coefficient for race that conforms to the NKF-ASN Task Force Recommendations. Performed By: #### 4 6124 ####[facility] [address], [place] [address] Wojciech Oneal M.D. [id number] Creatinine [Mass/Vol] 0.64 mg/dL Low 0.80-1.30 [facility] Comment on above: Order Comment: [facility] has implemented the eGFR calculation approach that does not have a coefficient for race that conforms to the NKF-ASN Task Force Recommendations. Performed By: #### 4 6124 ####[facility] [address] [place] [address] Wojciech Oneal M.D. [id number] EGFR 101 mL/min/1.73 m2 Normal >=60 [facility] Comment on above: Order Comment: [facility] has implemented the eGFR calculation approach that does not have a coefficient for race that conforms to the NKF-ASN Task Force Recommendations. Result Comment: Chelsea mated GFR was calculated using the 2020 CKD-EPI creatinine equation. Performed By: #### 4 6124 ####[facility] [address] [place] [address] Wojciech Oneal M.D. [id number] Glucose [Mass/Vol] 95 mg/dL Normal 65-99 [facility] Comment on above: Order Comment: [facility] has implemented the eGFR calculation approach that does not have a coefficient for race that conforms to the NKF-ASN Task Force Recommendations. Performed By: #### 4 6124 ####[facility] [address] [place] [address] Wojciech Oneal M.D. [id number] HCO3 (Bld) [Moles/Vol] 25 mmol/L Normal 21-32 [facility] Comment on above: Order Comment: [facility] has implemented the eGFR calculation approach that does not have a coefficient for race that conforms to the NKF-ASN Task Force Recommendations. Performed By: #### 4 6124 ####[facility] [address] [place] [address] Wojciech Oneal M.D. [id number] Potassium [Moles/Vol] 3.6 mmol/L Normal 3.5-5.1 [facility] Comment on above: Order Comment: [facility] has implemented the eGFR calculation approach that does not have a coefficient for race that conforms to the NKF-ASN Task Force Recommendations. Performed By: #### 4 6124 ####[facility] [address] [place] [address] Wojciech Oneal M.D. [id number] Sodium [Moles/Vol] 138 mmol/L Normal 135-145 [facility] Comment on above: Order Comment: [facility] has implemented the eGFR calculation approach that does not have a coefficient for race that conforms to the NKF-ASN Task Force Recommendations. Performed By: #### 4 6124 ####[facility] [address] [place] [address] Wojciech Oneal M.D. [id number] Urea nitrogen [Mass/Vol] 7 mg/dL Low 8-25 [facility] Comment on above: Order Comment: [facility] has implemented the eGFR calculation approach that does not have a coefficient for race that conforms to the NKF-ASN Task Force Recommendations. Performed By: #### 4 6124 ####[facility] [address] [place] [address] Wojciech Oneal M.D. [id number] Urea nitrogen/Creatinine [Mass ratio] 10.9 mg/mg Normal 10.0-20.0 [facility] Comment on above: Order Comment: [facility] has implemented the eGFR calculation approach that does not have a coefficient for race that conforms to the NKF-ASN Task Force Recommendations. Performed By: #### 4 6124 ####[facility] [address] [place] [address] Wojciech Oneal M.D. [id number] CBCon 02-17-2025 AUTO NRBC 0.0 % Normal [facility] Comment on above: Performed By: #### 4 [id number] ####[facility] [address] [place] [address] Wojciech Oneal M.D. [id number] AUTO NRBC ABS COUNT 0.00 K/mcL Normal 0.00-0.00 [facility] Comment on above: Performed By: #### 4 [id number] ####[facility] [address] [place] [address] Wojciech Oneal M.D. [id number] Erythrocyte distribution width (RBC) [Ratio] 15.9 % High 11.6-14.8 [facility] Comment on above: Performed By: #### 4 [id number] ####[facility] [address] [place] [address] Wojciech Oneal M.D. [id number] Hematocrit (Bld) [Volume fraction] 25.4 % Low 41.0-53.0 [facility] Comment on above: Performed By: #### 4 [id number] ####[facility] [address] [place] [address] Wojciech Oneal M.D. [id number] Hemoglobin (Bld) [Mass/Vol] 7.6 g/dL Low 13.5-17.5 [facility] Comment on above: Performed By: #### 4 [id number] ####[facility] [address] [place] [address] Wojciech Oneal M.D. [id number] MCH (RBC) [Entitic mass] 28.8 pg Normal 26.0-34.0 [facility] Comment on above: Performed By: #### 4 [id number] ####[facility] [address] [place] [address] Wojciech Oneal M.D. [id number] MCV (RBC) [Entitic vol] 96.2 fL Normal 80.0-100.0 [facility] Comment on above: Performed By: #### 4 [id number] ####[facility] [address] [place] [address] Wojciech Oneal M.D. [id number] MEAN CORPUSCULAR HEMOGLOBIN CONC 29.9 g/dL Low 31.0-37.0 [facility] Comment on above: Performed By: #### 4 [id number] ####[facility] [address] [place] [address] Wojciech Oneal M.D. [id number] Platelet mean volume (Bld) [Entitic vol] 8.3 fL Low 9.4-12.4 [facility] Comment on above: Performed By: #### 4 [id number] ####[facility] [address] [place] [address] Wojciech Oneal M.D. [id number] Platelets (Bld) [#/Vol] 409 10*3/uL High 150-400 [facility] Comment on above: Performed By: #### 4 [id number] ####[facility] [address] [address] Wojciech nOeal M.D. [id number] RBC (Bld) [#/Vol] 2.64 10*6/uL Low 4.50-5.90 [facility] Comment on above: Performed By: #### 4 [id number] ####[facility] [address] [address] Wojciech Oneal M.D. [id number] WBC (Bld) [#/Vol] 8.89 10*3/uL Normal 4.50-11.00 [facility] Comment on above: Performed By: #### 4 [id number] ####[facility] [address] [address] Wojciech Oneal M.D. [id number] MAGNESIUM LEVELon 02-17-2025 Magnesium [Mass/Vol] 1.7 mg/dL Normal 1.6-2.4 [facility] Comment on above: Performed By: #### 4 6109 ####[facility] [address] [address] Wojciech Oneal M.D. [id number] PHOSPHORUSon 02-17-2025 Phosphate [Mass/Vol] 2.5 mg/dL Normal 2.3-3.7 [facility] Comment on above: Performed By: #### 4 6299 ####[facility] [address] [address] Wojciech Oneal M.D. [id number] BASIC METABOLIC PANELon 10-0 Anion gap [Moles/Vol] 10 mmol/L Normal 10-20 [facility] Comment on above: Order Comment: [facility] has implemented the eGFR calculation approach that does not have a coefficient for race that conforms to the NKF-ASN Task Force Recommendations. Performed By: #### 4 6124 ####[facility] [address] [address] Wojciech Oneal M.D. [id number] Calcium [Mass/Vol] 7.3 mg/dL Low 8.4-10.2 [facility] Comment on above: Order Comment: [facility] has implemented the eGFR calculation approach that does not have a coefficient for race that conforms to the NKF-ASN Task Force Recommendations. Performed By: #### 4 6124 ####[facility] [address], [place] [address] Wojciech Oneal M.D. [id number] Chloride [Moles/Vol] 106 mmol/L Normal 98-108 [facility] Comment on above: Order Comment: [facility] has implemented the eGFR calculation approach that does not have a coefficient for race that conforms to the NKF-ASN Task Force Recommendations. Performed By: #### 4 6124 ####[facility] [address] [address] Wojciech Oneal M.D. [id number] Creatinine [Mass/Vol] 0.62 mg/dL Low 0.80-1.30 [facility] Comment on above: Order Comment: [facility] has implemented the eGFR calculation approach that does not have a coefficient for race that conforms to the NKF-ASN Task Force Recommendations. Performed By: #### 4 6124 ####[facility] [address] [place] [address] Wojciech Oneal M.D. [id number] EGFR 102 mL/min/1.73 m2 Normal >=60 [facility] Comment on above: Order Comment: [facility] has implemented the eGFR calculation approach that does not have a coefficient for race that conforms to the NKF-ASN Task Force Recommendations. Result Comment: Chelsea mated GFR was calculated using the 2020 CKD-EPI creatinine equation. Performed By: #### 4 6124 ####[facility] [address] [address] Wojciech Oneal M.D. [id number] Glucose [Mass/Vol] 84 mg/dL Normal 65-99 [facility] Comment on above: Order Comment: [facility] has implemented the eGFR calculation approach that does not have a coefficient for race that conforms to the NKF-ASN Task Force Recommendations. Performed By: #### 4 6124 ####[facility] [address], [place] [address] Wojciech Oneal M.D. [id number] HCO3 (Bld) [Moles/Vol] 26 mmol/L Normal 21-32 [facility] Comment on above: Order Comment: [facility] has implemented the eGFR calculation approach that does not have a coefficient for race that conforms to the NKF-ASN Task Force Recommendations. Performed By: #### 4 6124 ####[facility] [address] [address] Wojciech Oneal M.D. [id number] Potassium [Moles/Vol] 3.7 mmol/L Normal 3.5-5.1 [facility] Comment on above: Order Comment: [facility] has implemented the eGFR calculation approach that does not have a coefficient for race that conforms to the NKF-ASN Task Force Recommendations. Performed By: #### 4 6124 ####[facility] [address] [address] Wojciech Oneal M.D. [id number] Sodium [Moles/Vol] 138 mmol/L Normal 135-145 [facility] Comment on above: Order Comment: [facility] has implemented the eGFR calculation approach that does not have a coefficient for race that conforms to the NKF-ASN Task Force Recommendations. Performed By: #### 4 6124 ####[facility] [address] [place] [address] Wojciech Oneal M.D. [id number] Urea nitrogen [Mass/Vol] 8 mg/dL Normal 8-25 [facility] Comment on above: Order Comment: [facility] has implemented the eGFR calculation approach that does not have a coefficient for race that conforms to the NKF-ASN Task Force Recommendations. Performed By: #### 4 6124 ####[facility] [address] [address] Wojciech Oneal M.D. [id number] Urea nitrogen/Creatinine [Mass ratio] 12.9 mg/mg Normal 10.0-20.0 [facility] Comment on above: Order Comment: [facility] has implemented the eGFR calculation approach that does not have a coefficient for race that conforms to the NKF-ASN Task Force Recommendations. Performed By: #### 4 6124 ####[facility] [address] [address] Wojciech Oneal M.D. [id number] CBCon 02-16-2025 AUTO NRBC 0.0 % Normal [facility] Comment on above: Performed By: #### 4 [id number] ####[facility] [address] [place] [address] Wojciech Oneal M.D. [id number] AUTO NRBC ABS COUNT 0.00 K/mcL Normal 0.00-0.00 [facility] Comment on above: Performed By: #### 4 [id number] ####[facility] [address] [place] [address] Wojciech Oneal M.D. [id number] Erythrocyte distribution width (RBC) [Ratio] 15.7 % High 11.6-14.8 [facility] Comment on above: Performed By: #### 4 [id number] ####[facility] [address] [place] [address] Wojciech Oneal M.D. [id number] Hematocrit (Bld) [Volume fraction] 26.9 % Low 41.0-53.0 [facility] Comment on above: Performed By: #### 4 [id number] ####[facility] [address] [place] [address] Wojciech Oneal M.D. [id number] Hemoglobin (Bld) [Mass/Vol] 7.9 g/dL Low 13.5-17.5 [facility] Comment on above: Performed By: #### 4 [id number] ####[facility] [address] [place] [address] Wojciech Oneal M.D. [id number] MCH (RBC) [Entitic mass] 28.4 pg Normal 26.0-34.0 [facility] Comment on above: Performed By: #### 4 [id number] ####[facility] [address] [address] Wojciech Oneal M.D. [id number] MCV (RBC) [Entitic vol] 96.8 fL Normal 80.0-100.0 [facility] Comment on above: Performed By: #### 4 [id number] ####[facility] [address] [address] Wojciech Oneal M.D. [id number] MEAN CORPUSCULAR HEMOGLOBIN CONC 29.4 g/dL Low 31.0-37.0 [facility] Comment on above: Performed By: #### 4 [id number] ####[facility] [address] [address] Wojciech Oneal M.D. [id number] Platelet mean volume (Bld) [Entitic vol] 8.5 fL Low 9.4-12.4 [facility] Comment on above: Performed By: #### 4 [id number] ####[facility] [address] [address] Wojciech Oneal M.D. [id number] Platelets (Bld) [#/Vol] 446 10*3/uL High 150-400 [facility] Comment on above: Performed By: #### 4 [id number] ####[facility] [address] [address] Wojciech Oneal M.D. [id number] RBC (Bld) [#/Vol] 2.78 10*6/uL Low 4.50-5.90 [facility] Comment on above: Performed By: #### 4 [id number] ####[facility] [address] [address] Wojciech Oneal M.D. [id number] WBC (Bld) [#/Vol] 8.23 10*3/uL Normal 4.50-11.00 [facility] Comment on above: Performed By: #### 4 [id number] ####[facility] [address] [address] Wojciech Oneal M.D. [id number] MAGNESIUM LEVELon 02-16-2025 Magnesium [Mass/Vol] 1.8 mg/dL Normal 1.6-2.4 [facility] Comment on above: Performed By: #### 4 6109 ####[facility] [address] [address] Wojciech Oneal M.D. [id number] PHOSPHORUSon 02-16-2025 Phosphate [Mass/Vol] 2.7 mg/dL Normal 2.3-3.7 [facility] Comment on above: Performed By: #### 4 6299 ####[facility] [address] [address] Wojciech Oneal M.D. [id number] B12/FOLATEon 02-15-2025 Cobalamin (Vitamin B12) [Mass/Vol] 1085 pg/mL Normal 232-1245 [facility] Comment on above: Performed By: #### 4 6967 ####[facility] [address] [address] Wojciech Oneal M.D. [id number] FOLATE 4.5 ng/mL Normal 3.1-17.5 [facility] Comment on above: Result Comment: Defi cient <2.2Borderline 2.2 - 3.0Excessive >17.5 Performed By: #### 4 6967 ####[facility] [address], [place] [address] Wojciech Oneal M.D. [id number] BASIC METABOLIC PANELon Anion gap [Moles/Vol] 15 mmol/L Normal 10-20 [facility] Comment on above: Order Comment: [facility] has implemented the eGFR calculation approach that does not have a coefficient for race that conforms to the NKF-ASN Task Force Recommendations. Performed By: #### 4 6124 ####[facility] [address] [address] Wojciech Oneal M.D. [id number] Calcium [Mass/Vol] 6.8 mg/dL Low 8.4-10.2 [facility] Comment on above: Order Comment: [facility] has implemented the eGFR calculation approach that does not have a coefficient for race that conforms to the NKF-ASN Task Force Recommendations. Performed By: #### 4 6124 ####[facility] [address] [address] Wojciech Oneal M.D. [id number] Chloride [Moles/Vol] 106 mmol/L Normal 98-108 [facility] Comment on above: Order Comment: [facility] has implemented the eGFR calculation approach that does not have a coefficient for race that conforms to the NKF-ASN Task Force Recommendations. Performed By: #### 4 6124 ####[facility] [address] [address] Wojciech Oneal M.D. [id number] Creatinine [Mass/Vol] 0.70 mg/dL Low 0.80-1.30 [facility] Comment on above: Order Comment: [facility] has implemented the eGFR calculation approach that does not have a coefficient for race that conforms to the NKF-ASN Task Force Recommendations. Performed By: #### 4 6124 ####[facility] [address] [address] Wojciech Oneal M.D. [id number] EGFR 99 mL/min/1.73 m2 Normal >=60 [facility] Comment on above: Order Comment: [facility] has implemented the eGFR calculation approach that does not have a coefficient for race that conforms to the NKF-ASN Task Force Recommendations. Result Comment: Chelsea mated GFR was calculated using the 2020 CKD-EPI creatinine equation. Performed By: #### 4 6124 ####[facility] [address] [address] Wojciech Oneal M.D. [id number] Glucose [Mass/Vol] 93 mg/dL Normal 65-99 [facility] Comment on above: Order Comment: [facility] has implemented the eGFR calculation approach that does not have a coefficient for race that conforms to the NKF-ASN Task Force Recommendations. Performed By: #### 4 6124 ####[facility] [address] [address] Wojciech Oneal M.D. [id number] HCO3 (Bld) [Moles/Vol] 20 mmol/L Low 21-32 [facility] Comment on above: Order Comment: [facility] has implemented the eGFR calculation approach that does not have a coefficient for race that conforms to the NKF-ASN Task Force Recommendations. Performed By: #### 4 6124 ####[facility] [address] [address] Wojciech Oneal M.D. [id number] Potassium [Moles/Vol] 4.1 mmol/L Normal 3.5-5.1 [facility] Comment on above: Order Comment: [facility] has implemented the eGFR calculation approach that does not have a coefficient for race that conforms to the NKF-ASN Task Force Recommendations. Result Comment: Slig htly Hemolyzed Performed By: #### 4 6124 ####[facility] [address] [address] Wojciech Oneal M.D. [id number] Sodium [Moles/Vol] 137 mmol/L Normal 135-145 [facility] Comment on above: Order Comment: [facility] has implemented the eGFR calculation approach that does not have a coefficient for race that conforms to the NKF-ASN Task Force Recommendations. Performed By: #### 4 6124 ####[facility] [address] [address] Wojciech Oneal M.D. [id number] Urea nitrogen [Mass/Vol] 9 mg/dL Normal 8-25 [facility] Comment on above: Order Comment: [facility] has implemented the eGFR calculation approach that does not have a coefficient for race that conforms to the NKF-ASN Task Force Recommendations. Performed By: #### 4 6124 ####[facility] [address] [address] Wojciech Oneal M.D. [id number] Urea nitrogen/Creatinine [Mass ratio] 12.9 mg/mg Normal 10.0-20.0 [facility] Comment on above: Order Comment: [facility] has implemented the eGFR calculation approach that does not have a coefficient for race that conforms to the NKF-ASN Task Force Recommendations. Performed By: #### 4 6124 ####[facility] [address], [place] [address] Wojciech Oneal M.D. [id number] CBCon 02-15-2025 AUTO NRBC 0.0 % Normal [facility] Comment on above: Performed By: #### 4 [id number] ####[facility] [address], [place] [address] Wojciech Oneal M.D. [id number] AUTO NRBC ABS COUNT 0.00 K/mcL Normal 0.00-0.00 [facility] Comment on above: Performed By: #### 4 [id number] ####[facility] [address] [address] Wojciech Oneal M.D. [id number] Erythrocyte distribution width (RBC) [Ratio] 15.7 % High 11.6-14.8 [facility] Comment on above: Performed By: #### 4 [id number] ####[facility] [address] [address] Wojciech Oneal M.D. [id number] Hematocrit (Bld) [Volume fraction] 27.6 % Low 41.0-53.0 [facility] Comment on above: Performed By: #### 4 [id number] ####[facility] [address] [address] Wojciech Oneal M.D. [id number] Hemoglobin (Bld) [Mass/Vol] 7.7 g/dL Low 13.5-17.5 [facility] Comment on above: Performed By: #### 4 [id number] ####[facility] [address] [address] Wojciech Oneal M.D. [id number] MCH (RBC) [Entitic mass] 28.6 pg Normal 26.0-34.0 [facility] Comment on above: Performed By: #### 4 [id number] ####[facility] [address] [address] Wojciech Oneal M.D. [id number] MCV (RBC) [Entitic vol] 102.6 fL High 80.0-100.0 [facility] Comment on above: Performed By: #### 4 [id number] ####[facility] [address] [address] Wojciech Oneal M.D. [id number] MEAN CORPUSCULAR HEMOGLOBIN CONC 27.9 g/dL Low 31.0-37.0 [facility] Comment on above: Performed By: #### 4 [id number] ####[facility] [address] [address] Wojciech Oneal M.D. [id number] Platelet mean volume (Bld) [Entitic vol] 8.9 fL Low 9.4-12.4 [facility] Comment on above: Performed By: #### 4 [id number] ####[facility] [address] [address] Wojciech Oneal M.D. [id number] Platelets (Bld) [#/Vol] 381 10*3/uL Normal 150-400 [facility] Comment on above: Performed By: #### 4 [id number] ####[facility] [address], [place] [address] Wojciech Oneal M.D. [id number] RBC (Bld) [#/Vol] 2.69 10*6/uL Low 4.50-5.90 [facility] Comment on above: Performed By: #### 4 [id number] ####[facility] [address] [id number] Wojciech Oneal M.D. [id number] WBC (Bld) [#/Vol] 8.42 10*3/uL Normal 4.50-11.00 [facility] Comment on above: Performed By: #### 4 [id number] ####[facility] [address] [id number] Wojciech Oneal M.D. [id number] MAGNESIUM LEVELon 02-15-2025 Magnesium [Mass/Vol] 1.8 mg/dL Normal 1.6-2.4 [facility] Comment on above: Performed By: #### 4 6109 ####[facility] [address], [place] [address] Wojciech Oneal M.D. [id number] PHOSPHORUSon 02-15-2025 Phosphate [Mass/Vol] 2.7 mg/dL Normal 2.3-3.7 [facility] Comment on above: Performed By: #### 4 6299 ####[facility] [address], [place] [address] Wojciech Oneal M.D. [id number] BASIC METABOLIC PANELon 10-0 Anion gap [Moles/Vol] 13 mmol/L Normal 10-20 [facility] Comment on above: Order Comment: [facility] has implemented the eGFR calculation approach that does not have a coefficient for race that conforms to the NKF-ASN Task Force Recommendations. Performed By: #### 4 6124 ####[facility] [address], [place] [address] Wojciech Oneal M.D. [id number] Calcium [Mass/Vol] 7.2 mg/dL Low 8.4-10.2 [facility] Comment on above: Order Comment: [facility] has implemented the eGFR calculation approach that does not have a coefficient for race that conforms to the NKF-ASN Task Force Recommendations. Performed By: #### 4 6124 ####[facility] [address] [address] Wojciech Oneal M.D. [id number] Chloride [Moles/Vol] 108 mmol/L Normal 98-108 [facility] Comment on above: Order Comment: [facility] has implemented the eGFR calculation approach that does not have a coefficient for race that conforms to the NKF-ASN Task Force Recommendations. Performed By: #### 4 6124 ####[facility] [address] [address] Wojciech Oneal M.D. [id number] Creatinine [Mass/Vol] 0.64 mg/dL Low 0.80-1.30 [facility] Comment on above: Order Comment: [facility] has implemented the eGFR calculation approach that does not have a coefficient for race that conforms to the NKF-ASN Task Force Recommendations. Performed By: #### 4 6124 ####[facility] [address] [address] Wojciech Oneal M.D. [id number] EGFR 101 mL/min/1.73 m2 Normal >=60 [facility] Comment on above: Order Comment: [facility] has implemented the eGFR calculation approach that does not have a coefficient for race that conforms to the NKF-ASN Task Force Recommendations. Result Comment: Chelsea mated GFR was calculated using the 2020 CKD-EPI creatinine equation. Performed By: #### 4 6124 ####[facility] [address] [address] Wojciech Oneal M.D. [id number] Glucose [Mass/Vol] 93 mg/dL Normal 65-99 [facility] Comment on above: Order Comment: [facility] has implemented the eGFR calculation approach that does not have a coefficient for race that conforms to the NKF-ASN Task Force Recommendations. Performed By: #### 4 6124 ####[facility] [address] [address] Wojciech Oneal M.D. [id number] HCO3 (Bld) [Moles/Vol] 25 mmol/L Normal 21-32 [facility] Comment on above: Order Comment: [facility] has implemented the eGFR calculation approach that does not have a coefficient for race that conforms to the NKF-ASN Task Force Recommendations. Performed By: #### 4 6124 ####[facility] [address] [address] Wojciech Oneal M.D. [id number] Potassium [Moles/Vol] 3.9 mmol/L Normal 3.5-5.1 [facility] Comment on above: Order Comment: [facility] has implemented the eGFR calculation approach that does not have a coefficient for race that conforms to the NKF-ASN Task Force Recommendations. Performed By: #### 4 6124 ####[facility] [address] [address] Wojciech Oneal M.D. [id number] Sodium [Moles/Vol] 142 mmol/L Normal 135-145 [facility] Comment on above: Order Comment: [facility] has implemented the eGFR calculation approach that does not have a coefficient for race that conforms to the NKF-ASN Task Force Recommendations. Performed By: #### 4 6124 ####[facility] [address] [address] Wojciech Oneal M.D. [id number] Urea nitrogen [Mass/Vol] 8 mg/dL Normal 8-25 [facility] Comment on above: Order Comment: [facility] has implemented the eGFR calculation approach that does not have a coefficient for race that conforms to the NKF-ASN Task Force Recommendations. Performed By: #### 4 6124 ####[facility] [address] [address] Wojciech Oneal M.D. [id number] Urea nitrogen/Creatinine [Mass ratio] 12.5 mg/mg Normal 10.0-20.0 [facility] Comment on above: Order Comment: [facility] has implemented the eGFR calculation approach that does not have a coefficient for race that conforms to the NKF-ASN Task Force Recommendations. Performed By: #### 4 6124 ####[facility] [address] [address] Wojciech Oneal M.D. [id number] CBCon 02-14-2025 AUTO NRBC 0.0 % Normal [facility] Comment on above: Performed By: #### 4 [id number] ####[facility] [address] [address] Wojciech Oneal M.D. [id number] AUTO NRBC ABS COUNT 0.00 K/mcL Normal 0.00-0.00 [facility] Comment on above: Performed By: #### 4 [id number] ####[facility] [address] [address] Wojciech Oneal M.D. [id number] Erythrocyte distribution width (RBC) [Ratio] 15.5 % High 11.6-14.8 [facility] Comment on above: Performed By: #### 4 [id number] ####[facility] [address] [address] Wojciech Oneal M.D. [id number] Hematocrit (Bld) [Volume fraction] 24.5 % Low 41.0-53.0 [facility] Comment on above: Performed By: #### 4 5218 ####[facility] [address] [address] Wojciech Oneal M.D. [id number] Hemoglobin (Bld) [Mass/Vol] 7.4 g/dL Low 13.5-17.5 [facility] Comment on above: Performed By: #### 4 5218 ####[facility] [address] [address] Wojciech Oneal M.D. [id number] MCH (RBC) [Entitic mass] 29.5 pg Normal 26.0-34.0 [facility] Comment on above: Performed By: #### 4 [id number] ####[facility] [address] [address] Wojciech Oneal M.D. [id number] MCV (RBC) [Entitic vol] 97.6 fL Normal 80.0-100.0 [facility] Comment on above: Performed By: #### 4 5218 ####[facility] [address], [place] [address] Wojciech Oneal M.D. [id number] MEAN CORPUSCULAR HEMOGLOBIN CONC 30.2 g/dL Low 31.0-37.0 [facility] Comment on above: Performed By: #### 4 5218 ####[facility] [address], [place] [address] Wojciech Oneal M.D. [id number] Platelet mean volume (Bld) [Entitic vol] 8.8 fL Low 9.4-12.4 [facility] Comment on above: Performed By: #### 4 [id number] ####[facility] [address] [address] Wojciech Oneal M.D. [id number] Platelets (Bld) [#/Vol] 467 10*3/uL High 150-400 [facility] Comment on above: Performed By: #### 4 [id number] ####[facility] [address] [address] Wojciech Oneal M.D. [id number] RBC (Bld) [#/Vol] 2.51 10*6/uL Low 4.50-5.90 [facility] Comment on above: Performed By: #### 4 5218 ####[facility] [address] [address] Wojciech Oneal M.D. [id number] WBC (Bld) [#/Vol] 8.51 10*3/uL Normal 4.50-11.00 [facility] Comment on above: Performed By: #### 4 5218 ####[facility] [address] [address] Wojciech Oneal M.D. [id number] IRON STUDY WITH FERRITINon 1 Ferritin [Mass/Vol] 290 ng/mL Normal 30-400 [facility] Comment on above: Performed By: #### 4 7645 ####[facility] [address] [address] Wojciech Oneal M.D. [id number] Iron [Mass/Vol] 15 ug/dL Low 40-165 [facility] Comment on above: Performed By: #### 4 7645 ####[facility] [address], [place] [address] Wojciech Oneal M.D. [id number] IRON SATURATION 17 % Low 20-50 [facility] Comment on above: Performed By: #### 4 7645 ####[facility] [address], [place] [address] Wojciech Oneal M.D. [id number] TIBC (CALCULATED) 87 mcg/dL Low 225-430 [facility] Comment on above: Performed By: #### 4 7645 ####[facility] [address] [address] Wojciech Oneal M.D. [id number] MAGNESIUM LEVELon 02-14-2025 Magnesium [Mass/Vol] 1.8 mg/dL Normal 1.6-2.4 [facility] Comment on above: Performed By: #### 4 6109 ####[facility] [address] [address] Wojciech Oneal M.D. [id number] PHOSPHORUSon 02-14-2025 Phosphate [Mass/Vol] 2.6 mg/dL Normal 2.3-3.7 [facility] Comment on above: Performed By: #### 4 6299 ####[facility] [address] [address] Wojciech Oneal M.D. [id number] BASIC METABOLIC PANELon 10-0 Anion gap [Moles/Vol] 10 mmol/L Normal 10-20 [facility] Comment on above: Order Comment: [facility] has implemented the eGFR calculation approach that does not have a coefficient for race that conforms to the NKF-ASN Task Force Recommendations. Performed By: #### 4 6124 ####[facility] [address], [place] [address] Wojciech Oneal M.D. [id number] Calcium [Mass/Vol] 6.9 mg/dL Low 8.4-10.2 [facility] Comment on above: Order Comment: [facility] has implemented the eGFR calculation approach that does not have a coefficient for race that conforms to the NKF-ASN Task Force Recommendations. Performed By: #### 4 6124 ####[facility] [address] [address] Wojciech Oneal M.D. [id number] Chloride [Moles/Vol] 108 mmol/L Normal 98-108 [facility] Comment on above: Order Comment: [facility] has implemented the eGFR calculation approach that does not have a coefficient for race that conforms to the NKF-ASN Task Force Recommendations. Performed By: #### 4 6124 ####[facility] [address] [address] Wojciech Oneal M.D. [id number] Creatinine [Mass/Vol] 0.72 mg/dL Low 0.80-1.30 [facility] Comment on above: Order Comment: [facility] has implemented the eGFR calculation approach that does not have a coefficient for race that conforms to the NKF-ASN Task Force Recommendations. Performed By: #### 4 6124 ####[facility] [address] [address] Wojciech Oneal M.D. [id number] EGFR 98 mL/min/1.73 m2 Normal >=60 [facility] Comment on above: Order Comment: [facility] has implemented the eGFR calculation approach that does not have a coefficient for race that conforms to the NKF-ASN Task Force Recommendations. Result Comment: Chelsea mated GFR was calculated using the 2020 CKD-EPI creatinine equation. Performed By: #### 4 6124 ####[facility] [address] [address] Wojciech Oneal M.D. [id number] Glucose [Mass/Vol] 98 mg/dL Normal 65-99 [facility] Comment on above: Order Comment: [facility] has implemented the eGFR calculation approach that does not have a coefficient for race that conforms to the NKF-ASN Task Force Recommendations. Performed By: #### 4 6124 ####[facility] [address] [address] Wojciech Oneal M.D. [id number] HCO3 (Bld) [Moles/Vol] 26 mmol/L Normal 21-32 [facility] Comment on above: Order Comment: [facility] has implemented the eGFR calculation approach that does not have a coefficient for race that conforms to the NKF-ASN Task Force Recommendations. Performed By: #### 4 6124 ####[facility] [address] [address] Wojciech Oneal M.D. [id number] Potassium [Moles/Vol] 3.4 mmol/L Low 3.5-5.1 [facility] Comment on above: Order Comment: [facility] has implemented the eGFR calculation approach that does not have a coefficient for race that conforms to the NKF-ASN Task Force Recommendations. Performed By: #### 4 6124 ####[facility] [address] [address] Wojciech Oneal M.D. [id number] Sodium [Moles/Vol] 141 mmol/L Normal 135-145 [facility] Comment on above: Order Comment: [facility] has implemented the eGFR calculation approach that does not have a coefficient for race that conforms to the NKF-ASN Task Force Recommendations. Performed By: #### 4 6124 ####[facility] [address] [address] Wojciech Oneal M.D. [id number] Urea nitrogen [Mass/Vol] 7 mg/dL Low 8-25 [facility] Comment on above: Order Comment: [facility] has implemented the eGFR calculation approach that does not have a coefficient for race that conforms to the NKF-ASN Task Force Recommendations. Performed By: #### 4 6124 ####[facility] [address] [address] Wojciech Oneal M.D. [id number] Urea nitrogen/Creatinine [Mass ratio] 9.7 mg/mg Low 10.0-20.0 [facility] Comment on above: Order Comment: [facility] has implemented the eGFR calculation approach that does not have a coefficient for race that conforms to the NKF-ASN Task Force Recommendations. Performed By: #### 4 6124 ####[facility] [address] [address] Wojciech Oneal M.D. [id number] CBCon 02-13-2025 AUTO NRBC 0.0 % Normal [facility] Comment on above: Performed By: #### 4 [id number] ####[facility] [address] [address] Wojciech Oneal M.D. [id number] AUTO NRBC ABS COUNT 0.00 K/mcL Normal 0.00-0.00 [facility] Comment on above: Performed By: #### 4 [id number] ####[facility] [address] [address] Wojciech Oneal M.D. [id number] Erythrocyte distribution width (RBC) [Ratio] 15.6 % High 11.6-14.8 [facility] Comment on above: Performed By: #### 4 5218 ####[facility] [address] [address] Wojciech Oneal M.D. [id number] Hematocrit (Bld) [Volume fraction] 24.1 % Low 41.0-53.0 [facility] Comment on above: Performed By: #### 4 5218 ####[facility] [address] [address] Wojciech Oneal M.D. [id number] Hemoglobin (Bld) [Mass/Vol] 7.3 g/dL Low 13.5-17.5 [facility] Comment on above: Performed By: #### 4 5218 ####[facility] [address] [address] Wojciech Oneal M.D. [id number] MCH (RBC) [Entitic mass] 28.7 pg Normal 26.0-34.0 [facility] Comment on above: Performed By: #### 4 [id number] ####[facility] [address] [address] Wojciech Oneal M.D. [id number] MCV (RBC) [Entitic vol] 94.9 fL Normal 80.0-100.0 [facility] Comment on above: Performed By: #### 4 5218 ####[facility] [address] [address] Wojciech Oneal M.D. [id number] MEAN CORPUSCULAR HEMOGLOBIN CONC 30.3 g/dL Low 31.0-37.0 [facility] Comment on above: Performed By: #### 4 5218 ####[facility] [address], [place] [address] Wojciech Oneal M.D. [id number] Platelet mean volume (Bld) [Entitic vol] 8.5 fL Low 9.4-12.4 [facility] Comment on above: Performed By: #### 4 5218 ####[facility] [address], [place] [address] Wojciech Oneal M.D. [id number] Platelets (Bld) [#/Vol] 493 10*3/uL High 150-400 [facility] Comment on above: Performed By: #### 4 [id number] ####[facility] [address], [place] [address] Wojciech Oneal M.D. [id number] RBC (Bld) [#/Vol] 2.54 10*6/uL Low 4.50-5.90 [facility] Comment on above: Performed By: #### 4 [id number] ####[facility] [address] [address] Wojciech Oneal M.D. [id number] WBC (Bld) [#/Vol] 7.51 10*3/uL Normal 4.50-11.00 [facility] Comment on above: Performed By: #### 4 5218 ####[facility] [address] [address] Wojciech Oneal M.D. [id number] MAGNESIUM LEVELon 02-13-2025 Magnesium [Mass/Vol] 1.8 mg/dL Normal 1.6-2.4 [facility] Comment on above: Performed By: #### 4 6109 ####[facility] [address], [place] [address] Wojciech Oneal M.D. [id number] PHOSPHORUSon 02-13-2025 Phosphate [Mass/Vol] 2.6 mg/dL Normal 2.3-3.7 [facility] Comment on above: Performed By: #### 4 6299 ####[facility] [address] [address] Wojciech Oneal M.D. [id number] BASIC METABOLIC PANELon Anion gap [Moles/Vol] 11 mmol/L Normal 10-20 [facility] Comment on above: Order Comment: [facility] has implemented the eGFR calculation approach that does not have a coefficient for race that conforms to the NKF-ASN Task Force Recommendations. Performed By: #### 4 6124 ####[facility] [address] [address] Wojciech Oneal M.D. [id number] Calcium [Mass/Vol] 7.2 mg/dL Low 8.4-10.2 [facility] Comment on above: Order Comment: [facility] has implemented the eGFR calculation approach that does not have a coefficient for race that conforms to the NKF-ASN Task Force Recommendations. Performed By: #### 4 6124 ####[facility] [address] [address] Wojciech Oneal M.D. [id number] Chloride [Moles/Vol] 109 mmol/L High 98-108 [facility] Comment on above: Order Comment: [facility] has implemented the eGFR calculation approach that does not have a coefficient for race that conforms to the NKF-ASN Task Force Recommendations. Performed By: #### 4 6124 ####[facility] [address] [address] Wojciech Oneal M.D. [id number] Creatinine [Mass/Vol] 0.71 mg/dL Low 0.80-1.30 [facility] Comment on above: Order Comment: [facility] has implemented the eGFR calculation approach that does not have a coefficient for race that conforms to the NKF-ASN Task Force Recommendations. Performed By: #### 4 6124 ####[facility] [address], [place] [address] Wojciech Oneal M.D. [id number] EGFR 98 mL/min/1.73 m2 Normal >=60 [facility] Comment on above: Order Comment: [facility] has implemented the eGFR calculation approach that does not have a coefficient for race that conforms to the NKF-ASN Task Force Recommendations. Result Comment: Chelsea mated GFR was calculated using the 2020 CKD-EPI creatinine equation. Performed By: #### 4 6133 ####[facility] [address], [place] [address] Wojciech Oneal M.D. [id number] Glucose [Mass/Vol] 91 mg/dL Normal 65-99 [facility] Comment on above: Order Comment: [facility] has implemented the eGFR calculation approach that does not have a coefficient for race that conforms to the NKF-ASN Task Force Recommendations. Performed By: #### 4 6124 ####[facility] [address] [address] Wojciech Oneal M.D. [id number] HCO3 (Bld) [Moles/Vol] 25 mmol/L Normal 21-32 [facility] Comment on above: Order Comment: [facility] has implemented the eGFR calculation approach that does not have a coefficient for race that conforms to the NKF-ASN Task Force Recommendations. Performed By: #### 4 6124 ####[facility] [address] [address] Wojciech Oneal M.D. [id number] Potassium [Moles/Vol] 3.8 mmol/L Normal 3.5-5.1 [facility] Comment on above: Order Comment: [facility] has implemented the eGFR calculation approach that does not have a coefficient for race that conforms to the NKF-ASN Task Force Recommendations. Performed By: #### 4 6124 ####[facility] [address] [address] Wojciech Oneal M.D. [id number] Sodium [Moles/Vol] 141 mmol/L Normal 135-145 [facility] Comment on above: Order Comment: [facility] has implemented the eGFR calculation approach that does not have a coefficient for race that conforms to the NKF-ASN Task Force Recommendations. Performed By: #### 4 6124 ####[facility] [address] [address] Wojciech Oneal M.D. [id number] Urea nitrogen [Mass/Vol] 8 mg/dL Normal 8-25 [facility] Comment on above: Order Comment: [facility] has implemented the eGFR calculation approach that does not have a coefficient for race that conforms to the NKF-ASN Task Force Recommendations. Performed By: #### 4 6124 ####[facility] [address] [address] Wojciech Oneal M.D. [id number] Urea nitrogen/Creatinine [Mass ratio] 11.3 mg/mg Normal 10.0-20.0 [facility] Comment on above: Order Comment: [facility] has implemented the eGFR calculation approach that does not have a coefficient for race that conforms to the NKF-ASN Task Force Recommendations. Performed By: #### 4 6124 ####[facility] [address] [address] Wojciech Oneal M.D. [id number] CBCon 02-12-2025 AUTO NRBC 0.0 % Normal [facility] Comment on above: Performed By: #### 4 [id number] ####[facility] [address] [address] Wojciech Oneal M.D. [id number] AUTO NRBC ABS COUNT 0.00 K/mcL Normal 0.00-0.00 [facility] Comment on above: Performed By: #### 4 [id number] ####[facility] [address] [address] Wojciech Oneal M.D. [id number] Erythrocyte distribution width (RBC) [Ratio] 15.3 % High 11.6-14.8 [facility] Comment on above: Performed By: #### 4 5218 ####[facility] [address] [id number] Wojciech Oneal M.D. [id number] Hematocrit (Bld) [Volume fraction] 25.3 % Low 41.0-53.0 [facility] Comment on above: Performed By: #### 4 5218 ####[facility] [address] [id number] Wojciech Oneal M.D. [id number] Hemoglobin (Bld) [Mass/Vol] 7.6 g/dL Low 13.5-17.5 [facility] Comment on above: Performed By: #### 4 5218 ####[facility] [address] [address] Wojciech Oneal M.D. [id number] MCH (RBC) [Entitic mass] 29.2 pg Normal 26.0-34.0 [facility] Comment on above: Performed By: #### 4 5218 ####[facility] [address] [address] Wojciech Oneal M.D. [id number] MCV (RBC) [Entitic vol] 97.3 fL Normal 80.0-100.0 [facility] Comment on above: Performed By: #### 4 5218 ####[facility] [address] [address] Wojciech Oneal M.D. [id number] MEAN CORPUSCULAR HEMOGLOBIN CONC 30.0 g/dL Low 31.0-37.0 [facility] Comment on above: Performed By: #### 4 5218 ####[facility] [address] [address] Wojciech Oneal M.D. [id number] Platelet mean volume (Bld) [Entitic vol] 8.8 fL Low 9.4-12.4 [facility] Comment on above: Performed By: #### 4 5218 ####[facility] [address] [address] Wojciech Oneal M.D. [id number] Platelets (Bld) [#/Vol] 519 10*3/uL High 150-400 [facility] Comment on above: Performed By: #### 4 5218 ####[facility] [address] [address] Wojciech Oneal M.D. [id number] RBC (Bld) [#/Vol] 2.60 10*6/uL Low 4.50-5.90 [facility] Comment on above: Performed By: #### 4 5218 ####[facility] [address] [address] Wojciech Oneal M.D. [id number] WBC (Bld) [#/Vol] 9.04 10*3/uL Normal 4.50-11.00 [facility] Comment on above: Performed By: #### 4 5218 ####[facility] [address] [address] Wojciech Oneal M.D. [id number] MAGNESIUM LEVELon 02-12-2025 Magnesium [Mass/Vol] 1.8 mg/dL Normal 1.6-2.4 [facility] Comment on above: Performed By: #### 4 6109 ####[facility] [address] [address] Wojciech Oneal M.D. [id number] OP NOTEon 02-12-2025 OP NOTE Normal [facility] PHOSPHORUSon 02-12-2025 Phosphate [Mass/Vol] 2.3 mg/dL Normal 2.3-3.7 [facility] Comment on above: Performed By: #### 4 6299 ####[facility] [address] [address] Wojciech Oneal M.D. [id number] URINE AEROBIC CULTUREon URINE AEROBIC CULTURE Abnormal [facility] Comment on above: Performed By: #### 4 4053 ####[facility] [address] [address] Tuan Ascencio M.D. [id number] BASIC METABOLIC PANELon Anion gap [Moles/Vol] 13 mmol/L Normal 10-20 [facility] Comment on above: Order Comment: [facility] has implemented the eGFR calculation approach that does not have a coefficient for race that conforms to the NKF-ASN Task Force Recommendations. Performed By: #### 4 6124 ####[facility] [address] [address] Wojciech Oneal M.D. [id number] Calcium [Mass/Vol] 7.2 mg/dL Low 8.4-10.2 [facility] Comment on above: Order Comment: [facility] has implemented the eGFR calculation approach that does not have a coefficient for race that conforms to the NKF-ASN Task Force Recommendations. Performed By: #### 4 6124 ####[facility] [address] [address] Wojciech Oneal M.D. [id number] Chloride [Moles/Vol] 110 mmol/L High 98-108 [facility] Comment on above: Order Comment: [facility] has implemented the eGFR calculation approach that does not have a coefficient for race that conforms to the NKF-ASN Task Force Recommendations. Performed By: #### 4 6124 ####[facility] [address], [place] [address] Wojciech Oneal M.D. [id number] Creatinine [Mass/Vol] 0.71 mg/dL Low 0.80-1.30 [facility] Comment on above: Order Comment: [facility] has implemented the eGFR calculation approach that does not have a coefficient for race that conforms to the NKF-ASN Task Force Recommendations. Performed By: #### 4 6124 ####[facility] [address] [address] Wojciech Oneal M.D. [id number] EGFR 98 mL/min/1.73 m2 Normal >=60 [facility] Comment on above: Order Comment: [facility] has implemented the eGFR calculation approach that does not have a coefficient for race that conforms to the NKF-ASN Task Force Recommendations. Result Comment: Chelsea mated GFR was calculated using the 2020 CKD-EPI creatinine equation. Performed By: #### 4 6124 ####[facility] [address] [address] Wojciech Oneal M.D. [id number] Glucose [Mass/Vol] 102 mg/dL High 65-99 [facility] Comment on above: Order Comment: [facility] has implemented the eGFR calculation approach that does not have a coefficient for race that conforms to the NKF-ASN Task Force Recommendations. Performed By: #### 4 6124 ####[facility] [address] [address] Wojciech Oneal M.D. [id number] HCO3 (Bld) [Moles/Vol] 23 mmol/L Normal 21-32 [facility] Comment on above: Order Comment: [facility] has implemented the eGFR calculation approach that does not have a coefficient for race that conforms to the NKF-ASN Task Force Recommendations. Performed By: #### 4 6124 ####[facility] [address] [address] Wojciech nOeal M.D. [id number] Potassium [Moles/Vol] 3.9 mmol/L Normal 3.5-5.1 [facility] Comment on above: Order Comment: [facility] has implemented the eGFR calculation approach that does not have a coefficient for race that conforms to the NKF-ASN Task Force Recommendations. Result Comment: Slsebastián htly Hemolyzed Performed By: #### 4 6124 ####[facility] [address] [address] Wojciech Oneal M.D. [id number] Sodium [Moles/Vol] 142 mmol/L Normal 135-145 [facility] Comment on above: Order Comment: [facility] has implemented the eGFR calculation approach that does not have a coefficient for race that conforms to the NKF-ASN Task Force Recommendations. Performed By: #### 4 6124 ####[facility] [address] [address] Wojciech Oneal M.D. [id number] Urea nitrogen [Mass/Vol] 7 mg/dL Low 8-25 [facility] Comment on above: Order Comment: [facility] has implemented the eGFR calculation approach that does not have a coefficient for race that conforms to the NKF-ASN Task Force Recommendations. Performed By: #### 4 6124 ####[facility] [address] [address] Wojciech Oneal M.D. [id number] Urea nitrogen/Creatinine [Mass ratio] 9.9 mg/mg Low 10.0-20.0 [facility] Comment on above: Order Comment: [facility] has implemented the eGFR calculation approach that does not have a coefficient for race that conforms to the NKF-ASN Task Force Recommendations. Performed By: #### 4 6124 ####[facility] [address], [place] [address] Wojciech Oneal M.D. [id number] CBCon 02-11-2025 AUTO NRBC 0.0 % Normal [facility] Comment on above: Performed By: #### 4 5218 ####[facility] [address] [address] Wojciech Oneal M.D. [id number] AUTO NRBC ABS COUNT 0.00 K/mcL Normal 0.00-0.00 [facility] Comment on above: Performed By: #### 4 5218 ####[facility] [address] [address] Wojciech Oneal M.D. [id number] Erythrocyte distribution width (RBC) [Ratio] 15.3 % High 11.6-14.8 [facility] Comment on above: Performed By: #### 4 5218 ####[facility] [address] [address] Wojciech Oneal M.D. [id number] Hematocrit (Bld) [Volume fraction] 27.0 % Low 41.0-53.0 [facility] Comment on above: Performed By: #### 4 5218 ####[facility] [address] [address] Wojciech Oneal M.D. [id number] Hemoglobin (Bld) [Mass/Vol] 8.1 g/dL Low 13.5-17.5 [facility] Comment on above: Performed By: #### 4 5218 ####[facility] [address] [address] Wojciech Oneal M.D. [id number] MCH (RBC) [Entitic mass] 29.2 pg Normal 26.0-34.0 [facility] Comment on above: Performed By: #### 4 5218 ####[facility] [address] [address] Wojciech Oneal M.D. [id number] MCV (RBC) [Entitic vol] 97.5 fL Normal 80.0-100.0 [facility] Comment on above: Performed By: #### 4 5218 ####[facility] [address] [address] Wojciech Oneal M.D. [id number] MEAN CORPUSCULAR HEMOGLOBIN CONC 30.0 g/dL Low 31.0-37.0 [facility] Comment on above: Performed By: #### 4 5218 ####[facility] [address] [address] Wojciech Oneal M.D. [id number] Platelet mean volume (Bld) [Entitic vol] 8.9 fL Low 9.4-12.4 [facility] Comment on above: Performed By: #### 4 5218 ####[facility] [address] [address] Wojciech Oneal M.D. [id number] Platelets (Bld) [#/Vol] 575 10*3/uL High 150-400 [facility] Comment on above: Performed By: #### 4 5218 ####[facility] [address] [address] Wojciech Oneal M.D. [id number] RBC (Bld) [#/Vol] 2.77 10*6/uL Low 4.50-5.90 [facility] Comment on above: Performed By: #### 4 5218 ####[facility] [address] [address] Wojciech Oneal M.D. [id number] WBC (Bld) [#/Vol] 7.39 10*3/uL Normal 4.50-11.00 [facility] Comment on above: Performed By: #### 4 5218 ####[facility] [address] [address] Wojciech Oneal M.D. [id number] MAGNESIUM LEVELon 02-11-2025 Magnesium [Mass/Vol] 1.9 mg/dL Normal 1.6-2.4 [facility] Comment on above: Performed By: #### 4 6109 ####[facility] [address] [address] Wojciech Oneal M.D. [id number] PHOSPHORUSon 02-11-2025 Phosphate [Mass/Vol] 2.6 mg/dL Normal 2.3-3.7 [facility] Comment on above: Performed By: #### 4 6299 ####[facility] [address] [address] Wojciech Oneal M.D. [id number] URINALYSISon 02-11-2025 BACTERIA, URINE Rare Abnormal None Seen [facility] Comment on above: Order Comment: Micro scopic examination is performed on all urinalysis samples and only positive findings are reported. The test for blood on the chemical analytic portion of urinalysis may also be positive due to hemoglobinuria and myoglobinuria and if red blood cells are present they are quantified by microscopic examination. Performed By: #### 4 6625 ####[facility] [address] [address] Wojciech Oneal M.D. [id number] BILIRUBIN, URINE Negative Normal Negative [facility] Comment on above: Order Comment: Micro scopic examination is performed on all urinalysis samples and only positive findings are reported. The test for blood on the chemical analytic portion of urinalysis may also be positive due to hemoglobinuria and myoglobinuria and if red blood cells are present they are quantified by microscopic examination. Performed By: #### 4 6625 ####[facility] [address] [address] Wojciech Oneal M.D. [id number] BLOOD, URINE Moderate Abnormal Negative [facility] Comment on above: Order Comment: Micro scopic examination is performed on all urinalysis samples and only positive findings are reported. The test for blood on the chemical analytic portion of urinalysis may also be positive due to hemoglobinuria and myoglobinuria and if red blood cells are present they are quantified by microscopic examination. Performed By: #### 4 6625 ####[facility] [address] [address] Wojciech Oneal M.D. [id number] Clarity (U) Clear Normal Clear [facility] Comment on above: Order Comment: Micro scopic examination is performed on all urinalysis samples and only positive findings are reported. The test for blood on the chemical analytic portion of urinalysis may also be positive due to hemoglobinuria and myoglobinuria and if red blood cells are present they are quantified by microscopic examination. Performed By: #### 4 6625 ####[facility] [address] [address] Wojciech Oneal M.D. [id number] Color (U) Yellow Normal Colorless, Yellow [facility] Comment on above: Order Comment: Micro scopic examination is performed on all urinalysis samples and only positive findings are reported. The test for blood on the chemical analytic portion of urinalysis may also be positive due to hemoglobinuria and myoglobinuria and if red blood cells are present they are quantified by microscopic examination. Performed By: #### 4 6625 ####[facility] [address] [address] Wojciech Oneal M.D. [id number] Glucose Ql (U) Negative Normal Negative [facility] Comment on above: Order Comment: Micro scopic examination is performed on all urinalysis samples and only positive findings are reported. The test for blood on the chemical analytic portion of urinalysis may also be positive due to hemoglobinuria and myoglobinuria and if red blood cells are present they are quantified by microscopic examination. Performed By: #### 4 6625 ####[facility] [address] [address] Wojciech Oneal M.D. [id number] Ketones Ql (U) Negative Normal Negative [facility] Comment on above: Order Comment: Micro scopic examination is performed on all urinalysis samples and only positive findings are reported. The test for blood on the chemical analytic portion of urinalysis may also be positive due to hemoglobinuria and myoglobinuria and if red blood cells are present they are quantified by microscopic examination. Performed By: #### 4 6625 ####[facility] [address], [place] [address] Wojciech Oneal M.D. [id number] Leukocyte esterase Test strip Ql (U) Negative Normal Negative [facility] Comment on above: Order Comment: Micro scopic examination is performed on all urinalysis samples and only positive findings are reported. The test for blood on the chemical analytic portion of urinalysis may also be positive due to hemoglobinuria and myoglobinuria and if red blood cells are present they are quantified by microscopic examination. Performed By: #### 4 6625 ####[facility] [address], [place] [address] Wojciech Oneal M.D. [id number] MUCUS, URINE Rare Normal None Seen, [place] [...] microscopic examination. Performed By: #### 4 6625 ####[facility] [address] [address] Wojciech Oneal M.D. [id number] NITRITE, URINE Positive Abnormal Negative [facility] Comment on above: Order Comment: Micro scopic examination is performed on all urinalysis samples and only positive findings are reported. The test for blood on the chemical analytic portion of urinalysis may also be positive due to hemoglobinuria and myoglobinuria and if red blood cells are present they are quantified by microscopic examination. Performed By: #### 4 6625 ####[facility] [address] [address] Wojciech Oneal M.D. [id number] pH (U) 5.5 [pH] Normal 5.0-7.0 [facility] Comment on above: Order Comment: Micro scopic examination is performed on all urinalysis samples and only positive findings are reported. The test for blood on the chemical analytic portion of urinalysis may also be positive due to hemoglobinuria and myoglobinuria and if red blood cells are present they are quantified by microscopic examination. Performed By: #### 4 6625 ####[facility] [address] [address] Wojciech Oneal M.D. [id number] Protein (U) [Mass/Vol] 30 mg/dL Abnormal Negative [facility] Comment on above: Order Comment: [...] ammonium compounds. Performed By: #### 4 6625 ####[facility] [address] [address] Wojciech Oneal M.D. [id number] RBC LM.HPF (Urine sed) [#/Area] 11 /[HPF] High 0-3 [facility] Comment on above: Order Comment: Micro scopic examination is performed on all urinalysis samples and only positive findings are reported. The test for blood on the chemical analytic portion of urinalysis may also be positive due to hemoglobinuria and myoglobinuria and if red blood cells are present they are quantified by microscopic examination. Performed By: #### 4 6625 ####[facility] [address] [address] Wojciech Oneal M.D. [id number] Specific gravity (U) [Rel density] 1.022 Normal 1.005-1.025 [facility] Comment on above: Order Comment: Micro scopic examination is performed on all urinalysis samples and only positive findings are reported. The test for blood on the chemical analytic portion of urinalysis may also be positive due to hemoglobinuria and myoglobinuria and if red blood cells are present they are quantified by microscopic examination. Performed By: #### 4 6625 ####[facility] [address] [address] Wojciech Oneal M.D. [id number] SQUAMOUS EPITHELIAL 1 /hpf Normal 0-4 [facility] Comment on above: Order Comment: Micro scopic examination is performed on all urinalysis samples and only positive findings are reported. The test for blood on the chemical analytic portion of urinalysis may also be positive due to hemoglobinuria and myoglobinuria and if red blood cells are present they are quantified by microscopic examination. Performed By: #### 4 6625 ####[facility] [address] [address] Wojciech Oneal M.D. [id number] UROBILINOGEN, URINE <2.0 Normal <2.0 [facility] Comment on above: Order Comment: Micro scopic examination is performed on all urinalysis samples and only positive findings are reported. The test for blood on the chemical analytic portion of urinalysis may also be positive due to hemoglobinuria and myoglobinuria and if red blood cells are present they are quantified by microscopic examination. Performed By: #### 4 6625 ####[facility] [address], [place] [address] Wojciech Oneal M.D. [id number] WBC LM.HPF (Urine sed) [#/Area] 6 /[HPF] High 0-5 [facility] Comment on above: Order Comment: Micro scopic examination is performed on all urinalysis samples and only positive findings are reported. The test for blood on the chemical analytic portion of urinalysis may also be positive due to hemoglobinuria and myoglobinuria and if red blood cells are present they are quantified by microscopic examination. Performed By: #### 4 6625 ####[facility] [address] [address] Wojciech Oneal M.D. [id number] BASIC METABOLIC PANELon 09-3 -2024 Anion gap [Moles/Vol] 14 mmol/L Normal 10-20 [facility] Comment on above: Order Comment: [facility] has implemented the eGFR calculation approach that does not have a coefficient for race that conforms to the NKF-ASN Task Force Recommendations. Performed By: #### 4 6124 ####[facility] [address] [address] Wojciech Oneal M.D. [id number] Calcium [Mass/Vol] 7.1 mg/dL Low 8.4-10.2 [facility] Comment on above: Order Comment: [facility] has implemented the eGFR calculation approach that does not have a coefficient for race that conforms to the NKF-ASN Task Force Recommendations. Performed By: #### 4 6124 ####[facility] [address] [address] Wojciech Oneal M.D. [id number] Chloride [Moles/Vol] 111 mmol/L High 98-108 [facility] Comment on above: Order Comment: [facility] has implemented the eGFR calculation approach that does not have a coefficient for race that conforms to the NKF-ASN Task Force Recommendations. Performed By: #### 4 6124 ####[facility] [address] [address] Wojciech Oneal M.D. [id number] Creatinine [Mass/Vol] 0.76 mg/dL Low 0.80-1.30 [facility] Comment on above: Order Comment: [facility] has implemented the eGFR calculation approach that does not have a coefficient for race that conforms to the NKF-ASN Task Force Recommendations. Performed By: #### 4 6124 ####[facility] [address] [address] Wojciech Oneal M.D. [id number] EGFR 96 mL/min/1.73 m2 Normal >=60 [facility] Comment on above: Order Comment: [facility] has implemented the eGFR calculation approach that does not have a coefficient for race that conforms to the NKF-ASN Task Force Recommendations. Result Comment: Chelsea mated GFR was calculated using the 2020 CKD-EPI creatinine equation. Performed By: #### 4 6124 ####[facility] [address] [address] Wojciech Oneal M.D. [id number] Glucose [Mass/Vol] 92 mg/dL Normal 65-99 [facility] Comment on above: Order Comment: [facility] has implemented the eGFR calculation approach that does not have a coefficient for race that conforms to the NKF-ASN Task Force Recommendations. Performed By: #### 4 6124 ####[facility] [address] [address] Wojciech Oneal M.D. [id number] HCO3 (Bld) [Moles/Vol] 23 mmol/L Normal 21-32 [facility] Comment on above: Order Comment: [facility] has implemented the eGFR calculation approach that does not have a coefficient for race that conforms to the NKF-ASN Task Force Recommendations. Performed By: #### 4 6124 ####[facility] [address] [address] Wojciech Oneal M.D. [id number] Potassium [Moles/Vol] 3.5 mmol/L Normal 3.5-5.1 [facility] Comment on above: Order Comment: [facility] has implemented the eGFR calculation approach that does not have a coefficient for race that conforms to the NKF-ASN Task Force Recommendations. Performed By: #### 4 6124 ####[facility] [address] [address] Wojciech Oneal M.D. [id number] Sodium [Moles/Vol] 144 mmol/L Normal 135-145 [facility] Comment on above: Order Comment: [facility] has implemented the eGFR calculation approach that does not have a coefficient for race that conforms to the NKF-ASN Task Force Recommendations. Performed By: #### 4 6124 ####[facility] [address] [address] Wojciech Oneal M.D. [id number] Urea nitrogen [Mass/Vol] 7 mg/dL Low 8-25 [facility] Comment on above: Order Comment: [facility] has implemented the eGFR calculation approach that does not have a coefficient for race that conforms to the NKF-ASN Task Force Recommendations. Performed By: #### 4 6124 ####[facility] [address] [address] Wojciech Oneal M.D. [id number] Urea nitrogen/Creatinine [Mass ratio] 9.2 mg/mg Low 10.0-20.0 [facility] Comment on above: Order Comment: [facility] has implemented the eGFR calculation approach that does not have a coefficient for race that conforms to the NKF-ASN Task Force Recommendations. Performed By: #### 4 6124 ####[facility] [address] [id number] Wojciech Oneal M.D. [id number] CBCon 02-10-2025 AUTO NRBC 0.0 % Normal [facility] Comment on above: Performed By: #### 4 [id number] ####[facility] [address] [id number] Wojciech Oneal M.D. [id number] AUTO NRBC ABS COUNT 0.00 K/mcL Normal 0.00-0.00 [facility] Comment on above: Performed By: #### 4 [id number] ####[facility] [address] [id number] Wojciech Oneal M.D. [id number] Erythrocyte distribution width (RBC) [Ratio] 15.2 % High 11.6-14.8 [facility] Comment on above: Performed By: #### 4 [id number] ####[facility] [address] [address] Wojciech Oneal M.D. [id number] Hematocrit (Bld) [Volume fraction] 24.7 % Low 41.0-53.0 [facility] Comment on above: Performed By: #### 4 [id number] ####[facility] [address] [address] Wojciech Oneal M.D. [id number] Hemoglobin (Bld) [Mass/Vol] 7.4 g/dL Low 13.5-17.5 [facility] Comment on above: Performed By: #### 4 [id number] ####[facility] [address] [address] Wojciech Oneal M.D. [id number] MCH (RBC) [Entitic mass] 29.0 pg Normal 26.0-34.0 [facility] Comment on above: Performed By: #### 4 [id number] ####[facility] [address] [address] Wojciech Oneal M.D. [id number] MCV (RBC) [Entitic vol] 96.9 fL Normal 80.0-100.0 [facility] Comment on above: Performed By: #### 4 [id number] ####[facility] [address] [address] Wojciech Oneal M.D. [id number] MEAN CORPUSCULAR HEMOGLOBIN CONC 30.0 g/dL Low 31.0-37.0 [facility] Comment on above: Performed By: #### 4 [id number] ####[facility] [address] [address] Wojciech Oneal M.D. [id number] Platelet mean volume (Bld) [Entitic vol] 8.7 fL Low 9.4-12.4 [facility] Comment on above: Performed By: #### 4 [id number] ####[facility] [address] [address] Wojciech Oneal M.D. [id number] Platelets (Bld) [#/Vol] 508 10*3/uL High 150-400 [facility] Comment on above: Performed By: #### 4 [id number] ####[facility] [address] [address] Wojciech Oneal M.D. [id number] RBC (Bld) [#/Vol] 2.55 10*6/uL Low 4.50-5.90 [facility] Comment on above: Performed By: #### 4 [id number] ####[facility] [address] [address] Wojciech Oneal M.D. [id number] WBC (Bld) [#/Vol] 7.24 10*3/uL Normal 4.50-11.00 [facility] Comment on above: Performed By: #### 4 [id number] ####[facility] [address] [address] Wojciech Oneal M.D. [id number] MAGNESIUM LEVELon 02-10-2025 Magnesium [Mass/Vol] 1.9 mg/dL Normal 1.6-2.4 [facility] Comment on above: Performed By: #### 4 6109 ####[facility] [address] [address] Wojciech Oneal M.D. [id number] PHOSPHORUSon 02-10-2025 Phosphate [Mass/Vol] 2.6 mg/dL Normal 2.3-3.7 [facility] Comment on above: Performed By: #### 4 6299 ####[facility] [address] [address] Wojciech Oneal M.D. [id number] POTASSIUM LEVELon 02-10-2025 Potassium [Moles/Vol] 3.8 mmol/L Normal 3.5-5.1 [facility] Comment on above: Performed By: #### 4 6351 ####[facility] [address] [address] Wojciech Oneal M.D. [id number] TSH WITH REFLEX FREE T4on TSH Qn 2.27 m[IU]/L Normal 0.27-4.20 [facility] Comment on above: Performed By: #### 4 6612 ####[facility] [address] [address] Wojciech Oneal M.D. [id number] TYPE AND SCREENon 02-10-2025 TYPE AND SCREEN ABORH: O Positive AB SCREEN: Negative EXPIRATION DATE: 02/13/2025 23:59 EST Normal [facility] Comment on above: Performed By: #### 4 6619 ####[facility] [address] [address] Radha Kelsey MD [id number] [facility] BASIC METABOLIC PANELon 01-13 Anion gap [Moles/Vol] 14 mmol/L Normal 10-20 [facility] Comment on above: Order Comment: [facility] has implemented the eGFR calculation approach that does not have a coefficient for race that conforms to the NKF-ASN Task Force Recommendations. Performed By: #### 4 6124 ####[facility] [address] [address] Wojciech Oneal M.D. [id number] Calcium [Mass/Vol] 7.2 mg/dL Low 8.4-10.2 [facility] Comment on above: Order Comment: [facility] has implemented the eGFR calculation approach that does not have a coefficient for race that conforms to the NKF-ASN Task Force Recommendations. Performed By: #### 4 6124 ####[facility] [address] [address] Wojciech Oneal M.D. [id number] Chloride [Moles/Vol] 112 mmol/L High 98-108 [facility] Comment on above: Order Comment: [facility] has implemented the eGFR calculation approach that does not have a coefficient for race that conforms to the NKF-ASN Task Force Recommendations. Performed By: #### 4 6124 ####[facility] [address] [address] Wojciech Oneal M.D. [id number] Creatinine [Mass/Vol] 0.79 mg/dL Low 0.80-1.30 [facility] Comment on above: Order Comment: [facility] has implemented the eGFR calculation approach that does not have a coefficient for race that conforms to the NKF-ASN Task Force Recommendations. Performed By: #### 4 6124 ####[facility] [address] [address] Wojciech Oneal M.D. [id number] EGFR 95 mL/min/1.73 m2 Normal >=60 [facility] Comment on above: Order Comment: [facility] has implemented the eGFR calculation approach that does not have a coefficient for race that conforms to the NKF-ASN Task Force Recommendations. Result Comment: Chelsea mated GFR was calculated using the 2020 CKD-EPI creatinine equation. Performed By: #### 4 6124 ####[facility] [address] [address] Wojciech Oneal M.D. [id number] Glucose [Mass/Vol] 98 mg/dL Normal 65-99 [facility] Comment on above: Order Comment: [facility] has implemented the eGFR calculation approach that does not have a coefficient for race that conforms to the NKF-ASN Task Force Recommendations. Performed By: #### 4 6124 ####[facility] [address] [address] Wojciech Oneal M.D. [id number] HCO3 (Bld) [Moles/Vol] 21 mmol/L Normal 21-32 [facility] Comment on above: Order Comment: [facility] has implemented the eGFR calculation approach that does not have a coefficient for race that conforms to the NKF-ASN Task Force Recommendations. Performed By: #### 4 6124 ####[facility] [address] [address] Wojciech Oneal M.D. [id number] Potassium [Moles/Vol] 3.5 mmol/L Normal 3.5-5.1 [facility] Comment on above: Order Comment: [facility] has implemented the eGFR calculation approach that does not have a coefficient for race that conforms to the NKF-ASN Task Force Recommendations. Performed By: #### 4 6124 ####[facility] [address] [address] Wojciech Oneal M.D. [id number] Sodium [Moles/Vol] 143 mmol/L Normal 135-145 [facility] Comment on above: Order Comment: [facility] has implemented the eGFR calculation approach that does not have a coefficient for race that conforms to the NKF-ASN Task Force Recommendations. Performed By: #### 4 6124 ####[facility] [address], [place] [address] Wojciech Oneal M.D. [id number] Urea nitrogen [Mass/Vol] 8 mg/dL Normal 8-25 [facility] Comment on above: Order Comment: [facility] has implemented the eGFR calculation approach that does not have a coefficient for race that conforms to the NKF-ASN Task Force Recommendations. Performed By: #### 4 6124 ####[facility] [address] [address] Wojciech Oneal M.D. [id number] Urea nitrogen/Creatinine [Mass ratio] 10.1 mg/mg Normal 10.0-20.0 [facility] Comment on above: Order Comment: [facility] has implemented the eGFR calculation approach that does not have a coefficient for race that conforms to the NKF-ASN Task Force Recommendations. Performed By: #### 4 6124 ####[facility] [address] [address] Wojciech Oneal M.D. [id number] CBCon 02-09-2025 AUTO NRBC 0.0 % Normal [facility] Comment on above: Performed By: #### 4 [id number] ####[facility] [address] [address] Wojciech Oneal M.D. [id number] AUTO NRBC ABS COUNT 0.00 K/mcL Normal 0.00-0.00 [facility] Comment on above: Performed By: #### 4 [id number] ####[facility] [address] [address] Wojciech Oneal M.D. [id number] Erythrocyte distribution width (RBC) [Ratio] 15.2 % High 11.6-14.8 [facility] Comment on above: Performed By: #### 4 [id number] ####[facility] [address] [address] Wojciech Oneal M.D. [id number] Hematocrit (Bld) [Volume fraction] 28.6 % Low 41.0-53.0 [facility] Comment on above: Performed By: #### 4 [id number] ####[facility] [address] [address] Wojciech Oneal M.D. [id number] Hemoglobin (Bld) [Mass/Vol] 8.5 g/dL Low 13.5-17.5 [facility] Comment on above: Performed By: #### 4 [id number] ####[facility] [address] [address] Wojciech Oneal M.D. [id number] MCH (RBC) [Entitic mass] 28.5 pg Normal 26.0-34.0 [facility] Comment on above: Performed By: #### 4 [id number] ####[facility] [address] [address] Wojciech Oneal M.D. [id number] MCV (RBC) [Entitic vol] 96.0 fL Normal 80.0-100.0 [facility] Comment on above: Performed By: #### 4 [id number] ####[facility] [address] [address] Wojciech Oneal M.D. [id number] MEAN CORPUSCULAR HEMOGLOBIN CONC 29.7 g/dL Low 31.0-37.0 [facility] Comment on above: Performed By: #### 4 [id number] ####[facility] [address] [address] Wojciech Oneal M.D. [id number] Platelet mean volume (Bld) [Entitic vol] 8.7 fL Low 9.4-12.4 [facility] Comment on above: Performed By: #### 4 [id number] ####[facility] [address] [address] Wojciech Oneal M.D. [id number] Platelets (Bld) [#/Vol] 527 10*3/uL High 150-400 [facility] Comment on above: Result Comment: Resu lts checked Performed By: #### 4 [id number] ####[facility] [address] [address] Wojciech Oneal M.D. [id number] RBC (Bld) [#/Vol] 2.98 10*6/uL Low 4.50-5.90 [facility] Comment on above: Performed By: #### 4 [id number] ####[facility] [address] [address] Wojciech Oneal M.D. [id number] WBC (Bld) [#/Vol] 7.38 10*3/uL Normal 4.50-11.00 [facility] Comment on above: Performed By: #### 4 [id number] ####[facility] [address], [place] [address] Wojciech Oneal M.D. [id number] MAGNESIUM LEVELon 02-09-2025 Magnesium [Mass/Vol] 2.2 mg/dL Normal 1.6-2.4 [facility] Comment on above: Performed By: #### 4 6109 ####[facility] [address] [address] Wojciech Oneal M.D. [id number] Magnesium [Mass/Vol] 1.8 mg/dL Normal 1.6-2.4 [facility] Comment on above: Performed By: #### 4 6109 ####[facility] [address] [address] Wojciech Oneal M.D. [id number] PHOSPHORUSon 02-09-2025 Phosphate [Mass/Vol] 2.4 mg/dL Normal 2.3-3.7 [facility] Comment on above: Performed By: #### 4 6299 ####[facility] [address], [place] [address] Wojciech Oneal M.D. [id number] POTASSIUM LEVELon 02-09-2025 Potassium [Moles/Vol] 3.2 mmol/L Low 3.5-5.1 [facility] Comment on above: Performed By: #### 4 6351 ####[facility] [address], [place] [address] Wojciech Oneal M.D. [id number] BASIC METABOLIC PANELon 01-13 Anion gap [Moles/Vol] 14 mmol/L Normal 10-20 [facility] Comment on above: Order Comment: [facility] has implemented the eGFR calculation approach that does not have a coefficient for race that conforms to the NKF-ASN Task Force Recommendations. Performed By: #### 4 6124 ####[facility] [address], [place] [address] Wojciech Oneal M.D. [id number] Calcium [Mass/Vol] 7.2 mg/dL Low 8.4-10.2 [facility] Comment on above: Order Comment: [facility] has implemented the eGFR calculation approach that does not have a coefficient for race that conforms to the NKF-ASN Task Force Recommendations. Performed By: #### 4 6124 ####[facility] [address] [address] Wojciech Oneal M.D. [id number] Chloride [Moles/Vol] 113 mmol/L High 98-108 [facility] Comment on above: Order Comment: [facility] has implemented the eGFR calculation approach that does not have a coefficient for race that conforms to the NKF-ASN Task Force Recommendations. Performed By: #### 4 6124 ####[facility] [address] [address] Wojciech Oneal M.D. [id number] Creatinine [Mass/Vol] 0.85 mg/dL Normal 0.80-1.30 [facility] Comment on above: Order Comment: [facility] has implemented the eGFR calculation approach that does not have a coefficient for race that conforms to the NKF-ASN Task Force Recommendations. Performed By: #### 4 6124 ####[facility] [address] [address] Wojciech Oneal M.D. [id number] EGFR 93 mL/min/1.73 m2 Normal >=60 [facility] Comment on above: Order Comment: [facility] has implemented the eGFR calculation approach that does not have a coefficient for race that conforms to the NKF-ASN Task Force Recommendations. Result Comment: Chelsea mated GFR was calculated using the 2020 CKD-EPI creatinine equation. Performed By: #### 4 6124 ####[facility] [address] [address] Wojciech Oneal M.D. [id number] Glucose [Mass/Vol] 83 mg/dL Normal 65-99 [facility] Comment on above: Order Comment: [facility] has implemented the eGFR calculation approach that does not have a coefficient for race that conforms to the NKF-ASN Task Force Recommendations. Performed By: #### 4 6124 ####[facility] [address] [address] Wojciech Oneal M.D. [id number] HCO3 (Bld) [Moles/Vol] 22 mmol/L Normal 21-32 [facility] Comment on above: Order Comment: [facility] has implemented the eGFR calculation approach that does not have a coefficient for race that conforms to the NKF-ASN Task Force Recommendations. Performed By: #### 4 6124 ####[facility] [address] [address] Wojciech Oneal M.D. [id number] Potassium [Moles/Vol] 3.8 mmol/L Normal 3.5-5.1 [facility] Comment on above: Order Comment: [facility] has implemented the eGFR calculation approach that does not have a coefficient for race that conforms to the NKF-ASN Task Force Recommendations. Performed By: #### 4 6124 ####[facility] [address] [address] Wojciech Oneal M.D. [id number] Sodium [Moles/Vol] 145 mmol/L Normal 135-145 [facility] Comment on above: Order Comment: [facility] has implemented the eGFR calculation approach that does not have a coefficient for race that conforms to the NKF-ASN Task Force Recommendations. Performed By: #### 4 6124 ####[facility] [address] [address] Wojciech Oneal M.D. [id number] Urea nitrogen [Mass/Vol] 10 mg/dL Normal 8-25 [facility] Comment on above: Order Comment: [facility] has implemented the eGFR calculation approach that does not have a coefficient for race that conforms to the NKF-ASN Task Force Recommendations. Performed By: #### 4 6124 ####[facility] [address], [place] [address] Wojciech Oneal M.D. [id number] Urea nitrogen/Creatinine [Mass ratio] 11.8 mg/mg Normal 10.0-20.0 [facility] Comment on above: Order Comment: [facility] has implemented the eGFR calculation approach that does not have a coefficient for race that conforms to the NKF-ASN Task Force Recommendations. Performed By: #### 4 6155 ####[facility] [address] [address] Wojciech Oneal M.D. [id number] CBCon 02-08-2025 AUTO NRBC 0.0 % Normal [facility] Comment on above: Performed By: #### 4 5218 ####[facility] [address] [address] Wojciech Oneal M.D. [id number] AUTO NRBC ABS COUNT 0.00 K/mcL Normal 0.00-0.00 [facility] Comment on above: Performed By: #### 4 5218 ####[facility] [address] [address] Wojciech Oneal M.D. [id number] Erythrocyte distribution width (RBC) [Ratio] 14.9 % High 11.6-14.8 [facility] Comment on above: Performed By: #### 4 5218 ####[place] [address] [address] Wojciech Oneal M.D. [id number] Hematocrit (Bld) [Volume fraction] 24.2 % Low 41.0-53.0 [facility] Comment on above: Performed By: #### 4 5218 ####[place] [address] [address] Wojciech Oneal M.D. [id number] Hemoglobin (Bld) [Mass/Vol] 7.2 g/dL Low 13.5-17.5 [facility] Comment on above: Performed By: #### 4 5218 ####[facility] [address] [address] Wojciech Oneal M.D. [id number] MCH (RBC) [Entitic mass] 28.9 pg Normal 26.0-34.0 [facility] Comment on above: Performed By: #### 4 [id number] ####[facility] [address] [address] Wojciech Oneal M.D. [id number] MCV (RBC) [Entitic vol] 97.2 fL Normal 80.0-100.0 [facility] Comment on above: Performed By: #### 4 5218 ####[facility] [address] [address] Wojciech Oneal M.D. [id number] MEAN CORPUSCULAR HEMOGLOBIN CONC 29.8 g/dL Low 31.0-37.0 [facility] Comment on above: Performed By: #### 4 [id number] ####[facility] [address] [address] Wojciech Oneal M.D. [id number] Platelet mean volume (Bld) [Entitic vol] 10.4 fL Normal 9.4-12.4 [facility] Comment on above: Performed By: #### 4 [id number] ####[facility] [address] [address] Wojciech Oneal M.D. [id number] Platelets (Bld) [#/Vol] 329 10*3/uL Normal 150-400 [facility] Comment on above: Performed By: #### 4 [id number] ####[facility] [address] [address] Wojciech Oneal M.D. [id number] RBC (Bld) [#/Vol] 2.49 10*6/uL Low 4.50-5.90 [facility] Comment on above: Performed By: #### 4 [id number] ####[facility] [address] [address] Wojciech Oneal M.D. [id number] WBC (Bld) [#/Vol] 7.10 10*3/uL Normal 4.50-11.00 [facility] Comment on above: Performed By: #### 4 [id number] ####[facility] [address] [address] Wojciech Oneal M.D. [id number] MAGNESIUM LEVELon 02-08-2025 Magnesium [Mass/Vol] 2.0 mg/dL Normal 1.6-2.4 [facility] Comment on above: Performed By: #### 4 6109 ####[facility] [address] [address] Wojciech Oneal M.D. [id number] PHOSPHORUSon 02-08-2025 Phosphate [Mass/Vol] 2.6 mg/dL Normal 2.3-3.7 [facility] Comment on above: Performed By: #### 4 6299 ####[facility] [address], [place] [address] Wojciech Oneal M.D. [id number] BASIC METABOLIC PANELon 01-13 Anion gap [Moles/Vol] 14 mmol/L Normal 10-20 [facility] Comment on above: Order Comment: [facility] has implemented the eGFR calculation approach that does not have a coefficient for race that conforms to the NKF-ASN Task Force Recommendations. Performed By: #### 4 6124 ####[facility] [address] [address] Wojciech Oneal M.D. [id number] Calcium [Mass/Vol] 7.3 mg/dL Low 8.4-10.2 [facility] Comment on above: Order Comment: [facility] has implemented the eGFR calculation approach that does not have a coefficient for race that conforms to the NKF-ASN Task Force Recommendations. Performed By: #### 4 6124 ####[facility] [address] [address] Wojciech Oneal M.D. [id number] Chloride [Moles/Vol] 112 mmol/L High 98-108 [facility] Comment on above: Order Comment: [facility] has implemented the eGFR calculation approach that does not have a coefficient for race that conforms to the NKF-ASN Task Force Recommendations. Performed By: #### 4 6124 ####[facility] [address], [place] [address] Wojciech Oneal M.D. [id number] Creatinine [Mass/Vol] 0.94 mg/dL Normal 0.80-1.30 [facility] Comment on above: Order Comment: [facility] has implemented the eGFR calculation approach that does not have a coefficient for race that conforms to the NKF-ASN Task Force Recommendations. Performed By: #### 4 6124 ####[facility] [address] [address] Wojciech Oneal M.D. [id number] EGFR 87 mL/min/1.73 m2 Normal >=60 [facility] Comment on above: Order Comment: [facility] has implemented the eGFR calculation approach that does not have a coefficient for race that conforms to the NKF-ASN Task Force Recommendations. Result Comment: Chelsea mated GFR was calculated using the 2020 CKD-EPI creatinine equation. Performed By: #### 4 6124 ####[facility] [address] [address] Wojciech Oneal M.D. [id number] Glucose [Mass/Vol] 97 mg/dL Normal 65-99 [facility] Comment on above: Order Comment: [facility] has implemented the eGFR calculation approach that does not have a coefficient for race that conforms to the NKF-ASN Task Force Recommendations. Performed By: #### 4 6124 ####[facility] [address] [address] Wojciech Oneal M.D. [id number] HCO3 (Bld) [Moles/Vol] 21 mmol/L Normal 21-32 [facility] Comment on above: Order Comment: [facility] has implemented the eGFR calculation approach that does not have a coefficient for race that conforms to the NKF-ASN Task Force Recommendations. Performed By: #### 4 6124 ####[facility] [address] [address] Wojciech Oneal M.D. [id number] Potassium [Moles/Vol] 3.5 mmol/L Normal 3.5-5.1 [facility] Comment on above: Order Comment: [facility] has implemented the eGFR calculation approach that does not have a coefficient for race that conforms to the NKF-ASN Task Force Recommendations. Performed By: #### 4 [id number] ####[facility] [address] [address] Wojciech Oneal M.D. [id number] Sodium [Moles/Vol] 143 mmol/L Normal 135-145 [facility] Comment on above: Order Comment: [facility] has implemented the eGFR calculation approach that does not have a coefficient for race that conforms to the NKF-ASN Task Force Recommendations. Performed By: #### 4 6124 ####[facility] [address] [id number] Wojciech Oneal M.D. [id number] Urea nitrogen [Mass/Vol] 10 mg/dL Normal 8-25 [facility] Comment on above: Order Comment: [facility] has implemented the eGFR calculation approach that does not have a coefficient for race that conforms to the NKF-ASN Task Force Recommendations. Performed By: #### 4 6124 ####[facility] [address] [id number] Wojciech Oneal M.D. [id number] Urea nitrogen/Creatinine [Mass ratio] 10.6 mg/mg Normal 10.0-20.0 [facility] Comment on above: Order Comment: [facility] has implemented the eGFR calculation approach that does not have a coefficient for race that conforms to the NKF-ASN Task Force Recommendations. Performed By: #### 4 6124 ####[facility] [address] [id number] Wojciech Oneal M.D. [id number] CBCon 02-07-2025 AUTO NRBC 0.0 % Normal [facility] Comment on above: Performed By: #### 4 [id number] ####[facility] [address] [address] Wojciech Oneal M.D. [id number] AUTO NRBC ABS COUNT 0.00 K/mcL Normal 0.00-0.00 [facility] Comment on above: Performed By: #### 4 [id number] ####[facility] [address] [address] Wojciech Oneal M.D. [id number] Erythrocyte distribution width (RBC) [Ratio] 15.1 % High 11.6-14.8 [facility] Comment on above: Performed By: #### 4 [id number] ####[facility] [address], [place] [address] Wojciech Oneal M.D. [id number] Hematocrit (Bld) [Volume fraction] 25.7 % Low 41.0-53.0 [facility] Comment on above: Performed By: #### 4 [id number] ####[facility] [address] [address] Wojciech Oneal M.D. [id number] Hemoglobin (Bld) [Mass/Vol] 7.5 g/dL Low 13.5-17.5 [facility] Comment on above: Performed By: #### 4 [id number] ####[facility] [address] [address] Wojciech Oneal M.D. [id number] MCH (RBC) [Entitic mass] 28.3 pg Normal 26.0-34.0 [facility] Comment on above: Performed By: #### 4 [id number] ####[facility] [address] [address] Wojciech Oneal M.D. [id number] MCV (RBC) [Entitic vol] 97.0 fL Normal 80.0-100.0 [facility] Comment on above: Performed By: #### 4 [id number] ####[facility] [address] [address] oWjciech Oneal M.D. [id number] MEAN CORPUSCULAR HEMOGLOBIN CONC 29.2 g/dL Low 31.0-37.0 [facility] Comment on above: Performed By: #### 4 [id number] ####[facility] [address] [address] Wojciech Oneal M.D. [id number] Platelet mean volume (Bld) [Entitic vol] 9.0 fL Low 9.4-12.4 [facility] Comment on above: Performed By: #### 4 [id number] ####[facility] [address] [address] Wojciech Oneal M.D. [id number] Platelets (Bld) [#/Vol] 382 10*3/uL Normal 150-400 [facility] Comment on above: Performed By: #### 4 [id number] ####[facility] [address] [address] Wojciech Oneal M.D. [id number] RBC (Bld) [#/Vol] 2.65 10*6/uL Low 4.50-5.90 [facility] Comment on above: Performed By: #### 4 [id number] ####[facility] [address] [address] Wojciech Oneal M.D. [id number] WBC (Bld) [#/Vol] 7.01 10*3/uL Normal 4.50-11.00 [facility] Comment on above: Performed By: #### 4 [id number] ####[facility] [address], [place] [address] Wojciech Oneal M.D. [id number] MAGNESIUM LEVELon 02-07-2025 Magnesium [Mass/Vol] 1.7 mg/dL Normal 1.6-2.4 [facility] Comment on above: Performed By: #### 4 6109 ####[facility] [address] [address] Wojciech Oneal M.D. [id number] PHOSPHORUSon 02-07-2025 Phosphate [Mass/Vol] 2.6 mg/dL Normal 2.3-3.7 [facility] Comment on above: Performed By: #### 4 6299 ####[facility] [address], [place] [address] Wojciech Oneal M.D. [id number] POTASSIUM LEVELon 02-07-2025 Potassium [Moles/Vol] 3.7 mmol/L Normal 3.5-5.1 [facility] Comment on above: Performed By: #### 4 6351 ####[facility] [address], [place] [address] Wojciech Oneal M.D. [id number] BASIC METABOLIC PANELon 01-13 Anion gap [Moles/Vol] 14 mmol/L Normal 10-20 [facility] Comment on above: Order Comment: [facility] has implemented the eGFR calculation approach that does not have a coefficient for race that conforms to the NKF-ASN Task Force Recommendations. Performed By: #### 4 6124 ####[facility] [address], [place] [address] Wojicech Oneal M.D. [id number] Calcium [Mass/Vol] 7.4 mg/dL Low 8.4-10.2 [facility] Comment on above: Order Comment: [facility] has implemented the eGFR calculation approach that does not have a coefficient for race that conforms to the NKF-ASN Task Force Recommendations. Performed By: #### 4 6124 ####[facility] [address] [address] Wojciech Oneal M.D. [id number] Chloride [Moles/Vol] 114 mmol/L High 98-108 [facility] Comment on above: Order Comment: [facility] has implemented the eGFR calculation approach that does not have a coefficient for race that conforms to the NKF-ASN Task Force Recommendations. Performed By: #### 4 6124 ####[facility] [address] [address] Wojciech Oneal M.D. [id number] Creatinine [Mass/Vol] 1.03 mg/dL Normal 0.80-1.30 [facility] Comment on above: Order Comment: [facility] has implemented the eGFR calculation approach that does not have a coefficient for race that conforms to the NKF-ASN Task Force Recommendations. Performed By: #### 4 6124 ####[facility] [address] [address] Wojciech Oneal M.D. [id number] EGFR 78 mL/min/1.73 m2 Normal >=60 [facility] Comment on above: Order Comment: [facility] has implemented the eGFR calculation approach that does not have a coefficient for race that conforms to the NKF-ASN Task Force Recommendations. Result Comment: Chelsea mated GFR was calculated using the 2020 CKD-EPI creatinine equation. Performed By: #### 4 6124 ####[facility] [address] [address] Wojciech Oneal M.D. [id number] Glucose [Mass/Vol] 91 mg/dL Normal 65-99 [facility] Comment on above: Order Comment: [facility] has implemented the eGFR calculation approach that does not have a coefficient for race that conforms to the NKF-ASN Task Force Recommendations. Performed By: #### 4 6124 ####[facility] [address] [address] Wojciech Oneal M.D. [id number] HCO3 (Bld) [Moles/Vol] 21 mmol/L Normal 21-32 [facility] Comment on above: Order Comment: [facility] has implemented the eGFR calculation approach that does not have a coefficient for race that conforms to the NKF-ASN Task Force Recommendations. Performed By: #### 4 6124 ####[facility] [address], [place] [address] Wojciech Oneal M.D. [id number] Potassium [Moles/Vol] 3.6 mmol/L Normal 3.5-5.1 [facility] Comment on above: Order Comment: [facility] has implemented the eGFR calculation approach that does not have a coefficient for race that conforms to the NKF-ASN Task Force Recommendations. Performed By: #### 4 6124 ####[facility] [address], [place] [address] Wojciech Oneal M.D. [id number] Sodium [Moles/Vol] 145 mmol/L Normal 135-145 [facility] Comment on above: Order Comment: [facility] has implemented the eGFR calculation approach that does not have a coefficient for race that conforms to the NKF-ASN Task Force Recommendations. Performed By: #### 4 6124 ####[facility] [address] [address] Wojciech Oneal M.D. [id number] Urea nitrogen [Mass/Vol] 10 mg/dL Normal 8-25 [facility] Comment on above: Order Comment: [facility] has implemented the eGFR calculation approach that does not have a coefficient for race that conforms to the NKF-ASN Task Force Recommendations. Performed By: #### 4 6124 ####[facility] [address], [place] [address] Wojciech Oneal M.D. [id number] Urea nitrogen/Creatinine [Mass ratio] 9.7 mg/mg Low 10.0-20.0 [facility] Comment on above: Order Comment: [facility] has implemented the eGFR calculation approach that does not have a coefficient for race that conforms to the NKF-ASN Task Force Recommendations. Performed By: #### 4 6124 ####[facility] [address], [place] [address] Wojciech Oneal M.D. [id number] CBCon 02-06-2025 AUTO NRBC 0.0 % Normal [facility] Comment on above: Performed By: #### 4 [id number] ####[facility] [address] [address] Wojciech Oneal M.D. [id number] AUTO NRBC ABS COUNT 0.00 K/mcL Normal 0.00-0.00 [facility] Comment on above: Performed By: #### 4 [id number] ####[facility] [address] [address] Wojciech Oneal M.D. [id number] Erythrocyte distribution width (RBC) [Ratio] 14.9 % High 11.6-14.8 [facility] Comment on above: Performed By: #### 4 [id number] ####[facility] [address] [address] Wojciech Oneal M.D. [id number] Hematocrit (Bld) [Volume fraction] 27.1 % Low 41.0-53.0 [facility] Comment on above: Performed By: #### 4 5218 ####[facility] [address] [address] Wojciech Oneal M.D. [id number] Hemoglobin (Bld) [Mass/Vol] 8.0 g/dL Low 13.5-17.5 [facility] Comment on above: Performed By: #### 4 [id number] ####[facility] [address] [address] Wojciech Oneal M.D. [id number] MCH (RBC) [Entitic mass] 28.9 pg Normal 26.0-34.0 [facility] Comment on above: Performed By: #### 4 [id number] ####[facility] [address] [address] Wojciech Oneal M.D. [id number] MCV (RBC) [Entitic vol] 97.8 fL Normal 80.0-100.0 [facility] Comment on above: Performed By: #### 4 5218 ####[facility] [address] [address] Wojciech Oneal M.D. [id number] MEAN CORPUSCULAR HEMOGLOBIN CONC 29.5 g/dL Low 31.0-37.0 [facility] Comment on above: Performed By: #### 4 [id number] ####[facility] [address], [place] [address] Wojciech Oneal M.D. [id number] Platelet mean volume (Bld) [Entitic vol] 9.1 fL Low 9.4-12.4 [facility] Comment on above: Performed By: #### 4 [id number] ####[facility] [address], [place] [address] Wojciech Oneal M.D. [id number] Platelets (Bld) [#/Vol] 404 10*3/uL High 150-400 [facility] Comment on above: Performed By: #### 4 [id number] ####[facility] [address], [place] [address] Wojciech Oneal M.D. [id number] RBC (Bld) [#/Vol] 2.77 10*6/uL Low 4.50-5.90 [facility] Comment on above: Performed By: #### 4 [id number] ####[facility] [address], [place] [address] Wojciech Oneal M.D. [id number] WBC (Bld) [#/Vol] 7.93 10*3/uL Normal 4.50-11.00 [facility] Comment on above: Performed By: #### 4 5218 ####[facility] [address], [place] [address] Wojciech Oneal M.D. [id number] CBC W/Diff, Automatedon - PATH REV Reviewed Normal [facility] Comment on above: Result Comment: SEE REPORT IN PATIENT'S EMR AMENDED REPORT 02/06/25 1126 PATH REV previously reported as: September Performed By: #### L 509.7001, L100.0100, L503.6005, L503.7505, L501.3620, L500.2500, L501.5200, L500.3400 #### [facility] [address] [place], [address] MAGNESIUM LEVELon 02-06-2025 Magnesium [Mass/Vol] 1.9 mg/dL Normal 1.6-2.4 [facility] Comment on above: Performed By: #### 4 6109 ####[facility] [address], [place] [address] Wojciech Oneal M.D. [id number] PHOSPHORUSon 02-06-2025 Phosphate [Mass/Vol] 2.5 mg/dL Normal 2.3-3.7 [facility] Comment on above: Performed By: #### 4 6299 ####[facility] [address] [address] Wojciech Oneal M.D. [id number] BASIC METABOLIC PANELon 01-13 Anion gap [Moles/Vol] 13 mmol/L Normal 10-20 [facility] Comment on above: Order Comment: [facility] has implemented the eGFR calculation approach that does not have a coefficient for race that conforms to the NKF-ASN Task Force Recommendations. Performed By: #### 4 6124 ####[facility] [address], [place] [address] Wojciech Oneal M.D. [id number] Calcium [Mass/Vol] 7.2 mg/dL Low 8.4-10.2 [facility] Comment on above: Order Comment: [facility] has implemented the eGFR calculation approach that does not have a coefficient for race that conforms to the NKF-ASN Task Force Recommendations. Performed By: #### 4 6124 ####[facility] [address], [place] [address] Wojciech Oneal M.D. [id number] Chloride [Moles/Vol] 114 mmol/L High 98-108 [facility] Comment on above: Order Comment: [facility] has implemented the eGFR calculation approach that does not have a coefficient for race that conforms to the NKF-ASN Task Force Recommendations. Performed By: #### 4 6124 ####[facility] [address], [place] [address] Wojciech Oneal M.D. [id number] Creatinine [Mass/Vol] 1.05 mg/dL Normal 0.80-1.30 [facility] Comment on above: Order Comment: [facility] has implemented the eGFR calculation approach that does not have a coefficient for race that conforms to the NKF-ASN Task Force Recommendations. Performed By: #### 4 6124 ####[facility] [address], [place] [address] Wojciech Oneal M.D. [id number] EGFR 76 mL/min/1.73 m2 Normal >=60 [facility] Comment on above: Order Comment: [facility] has implemented the eGFR calculation approach that does not have a coefficient for race that conforms to the NKF-ASN Task Force Recommendations. Result Comment: Chelsea mated GFR was calculated using the 2020 CKD-EPI creatinine equation. Performed By: #### 4 6124 ####[facility] [address] [address] Wojciech Oneal M.D. [id number] Glucose [Mass/Vol] 105 mg/dL High 65-99 [facility] Comment on above: Order Comment: [facility] has implemented the eGFR calculation approach that does not have a coefficient for race that conforms to the NKF-ASN Task Force Recommendations. Performed By: #### 4 6124 ####[facility] [address] [address] Wojciech Oneal M.D. [id number] HCO3 (Bld) [Moles/Vol] 21 mmol/L Normal 21-32 [facility] Comment on above: Order Comment: [facility] has implemented the eGFR calculation approach that does not have a coefficient for race that conforms to the NKF-ASN Task Force Recommendations. Performed By: #### 4 6124 ####[facility] [address] [address] Wojciech Oneal M.D. [id number] Potassium [Moles/Vol] 3.7 mmol/L Normal 3.5-5.1 [facility] Comment on above: Order Comment: [facility] has implemented the eGFR calculation approach that does not have a coefficient for race that conforms to the NKF-ASN Task Force Recommendations. Performed By: #### 4 6124 ####[facility] [address] [address] Wojciech Oneal M.D. [id number] Sodium [Moles/Vol] 144 mmol/L Normal 135-145 [facility] Comment on above: Order Comment: [facility] has implemented the eGFR calculation approach that does not have a coefficient for race that conforms to the NKF-ASN Task Force Recommendations. Performed By: #### 4 6124 ####[facility] [address] [address] Wojciech Oneal M.D. [id number] Urea nitrogen [Mass/Vol] 11 mg/dL Normal 8-25 [facility] Comment on above: Order Comment: [facility] has implemented the eGFR calculation approach that does not have a coefficient for race that conforms to the NKF-ASN Task Force Recommendations. Performed By: #### 4 6124 ####[facility] [address] [address] Wojciech Oneal M.D. [id number] Urea nitrogen/Creatinine [Mass ratio] 10.5 mg/mg Normal 10.0-20.0 [facility] Comment on above: Order Comment: [facility] has implemented the eGFR calculation approach that does not have a coefficient for race that conforms to the NKF-ASN Task Force Recommendations. Performed By: #### 4 6124 ####[facility] [address] [address] Wojciech Oneal M.D. [id number] CBCon 02-05-2025 AUTO NRBC 0.0 % Normal [facility] Comment on above: Performed By: #### 4 5218 ####[facility] [address] [address] Wojciech Oneal M.D. [id number] AUTO NRBC ABS COUNT 0.00 K/mcL Normal 0.00-0.00 [facility] Comment on above: Performed By: #### 4 [id number] ####[facility] [address] [address] Wojciech Oneal M.D. [id number] Erythrocyte distribution width (RBC) [Ratio] 15.0 % High 11.6-14.8 [facility] Comment on above: Performed By: #### 4 [id number] ####[facility] [address] [address] Wojciech Oneal M.D. [id number] Hematocrit (Bld) [Volume fraction] 23.9 % Low 41.0-53.0 [facility] Comment on above: Performed By: #### 4 5218 ####[facility] [address] [address] Wojciech Oneal M.D. [id number] Hemoglobin (Bld) [Mass/Vol] 7.3 g/dL Low 13.5-17.5 [facility] Comment on above: Performed By: #### 4 [id number] ####[facility] [address] [address] Wojciech Oneal M.D. [id number] MCH (RBC) [Entitic mass] 29.4 pg Normal 26.0-34.0 [facility] Comment on above: Performed By: #### 4 [id number] ####[facility] [address] [address] Wojciech Oneal M.D. [id number] MCV (RBC) [Entitic vol] 96.4 fL Normal 80.0-100.0 [facility] Comment on above: Performed By: #### 4 5218 ####[facility] [address] [address] Wojciech Oneal M.D. [id number] MEAN CORPUSCULAR HEMOGLOBIN CONC 30.5 g/dL Low 31.0-37.0 [facility] Comment on above: Performed By: #### 4 5218 ####[facility] [address] [address] Wojciech Oneal M.D. [id number] Platelet mean volume (Bld) [Entitic vol] 9.1 fL Low 9.4-12.4 [facility] Comment on above: Performed By: #### 4 [id number] ####[facility] [address] [address] Wojciech Oneal M.D. [id number] Platelets (Bld) [#/Vol] 367 10*3/uL Normal 150-400 [facility] Comment on above: Performed By: #### 4 [id number] ####[facility] [address] [address] Wojciech Oneal M.D. [id number] RBC (Bld) [#/Vol] 2.48 10*6/uL Low 4.50-5.90 [facility] Comment on above: Performed By: #### 4 [id number] ####[facility] [address], [place] [address] Wojciech Oneal M.D. [id number] WBC (Bld) [#/Vol] 7.51 10*3/uL Normal 4.50-11.00 [facility] Comment on above: Performed By: #### 4 5218 ####[facility] [address], [place] [address] Wojciech Oneal M.D. [id number] MAGNESIUM LEVELon 02-05-2025 Magnesium [Mass/Vol] 2.0 mg/dL Normal 1.6-2.4 [facility] Comment on above: Performed By: #### 4 6109 ####[facility] [address], [place] [address] Wojciech Oneal M.D. [id number] PHOSPHORUSon 02-05-2025 Phosphate [Mass/Vol] 2.9 mg/dL Normal 2.3-3.7 [facility] Comment on above: Performed By: #### 4 6299 ####[facility] [address], [place] [address] Wojciech Oneal M.D. [id number] POTASSIUM LEVELon 02-05-2025 Potassium [Moles/Vol] 3.8 mmol/L Normal 3.5-5.1 [facility] Comment on above: Performed By: #### 4 6351 ####[facility] [address], [place] [address] Wojciech Oneal M.D. [id number] Potassium [Moles/Vol] 3.7 mmol/L Normal 3.5-5.1 [facility] Comment on above: Performed By: #### 4 6351 ####[facility] [address], [place] [address] Wojciech Oneal M.D. [id number] BASIC METABOLIC PANELon 01-13 Anion gap [Moles/Vol] 11 mmol/L Normal 10-20 [facility] Comment on above: Order Comment: [facility] has implemented the eGFR calculation approach that does not have a coefficient for race that conforms to the NKF-ASN Task Force Recommendations. Performed By: #### 4 6124 ####[facility] [address] [address] Wojciech Oneal M.D. [id number] Calcium [Mass/Vol] 7.2 mg/dL Low 8.4-10.2 [facility] Comment on above: Order Comment: [facility] has implemented the eGFR calculation approach that does not have a coefficient for race that conforms to the NKF-ASN Task Force Recommendations. Performed By: #### 4 6124 ####[facility] [address] [address] Wojciech Oneal M.D. [id number] Chloride [Moles/Vol] 116 mmol/L High 98-108 [facility] Comment on above: Order Comment: [facility] has implemented the eGFR calculation approach that does not have a coefficient for race that conforms to the NKF-ASN Task Force Recommendations. Performed By: #### 4 6124 ####[facility] [address] [address] Wojciech Oneal M.D. [id number] Creatinine [Mass/Vol] 0.98 mg/dL Normal 0.80-1.30 [facility] Comment on above: Order Comment: [facility] has implemented the eGFR calculation approach that does not have a coefficient for race that conforms to the NKF-ASN Task Force Recommendations. Performed By: #### 4 6124 ####[facility] [address] [address] Wojciech Oneal M.D. [id number] EGFR 82 mL/min/1.73 m2 Normal >=60 [facility] Comment on above: Order Comment: [facility] has implemented the eGFR calculation approach that does not have a coefficient for race that conforms to the NKF-ASN Task Force Recommendations. Result Comment: Chelsea mated GFR was calculated using the 2020 CKD-EPI creatinine equation. Performed By: #### 4 6124 ####[facility] [address] [address] Wojciech Oneal M.D. [id number] Glucose [Mass/Vol] 98 mg/dL Normal 65-99 [facility] Comment on above: Order Comment: [facility] has implemented the eGFR calculation approach that does not have a coefficient for race that conforms to the NKF-ASN Task Force Recommendations. Performed By: #### 4 6124 ####[facility] [facility] [address] [id number] Wojciech Oneal M.D. [id number] HCO3 (Bld) [Moles/Vol] 21 mmol/L Normal 21-32 [facility] Comment on above: Order Comment: [facility] has implemented the eGFR calculation approach that does not have a coefficient for race that conforms to the NKF-ASN Task Force Recommendations. Performed By: #### 4 6124 ####[facility] [address] [id number] Wojciech Oneal M.D. [id number] Potassium [Moles/Vol] 3.8 mmol/L Normal 3.5-5.1 [facility] Comment on above: Order Comment: [facility] has implemented the eGFR calculation approach that does not have a coefficient for race that conforms to the NKF-ASN Task Force Recommendations. Performed By: #### 4 6124 ####[facility] [address] [id number] Wojciech Oneal M.D. [id number] Sodium [Moles/Vol] 144 mmol/L Normal 135-145 [facility] Comment on above: Order Comment: [facility] has implemented the eGFR calculation approach that does not have a coefficient for race that conforms to the NKF-ASN Task Force Recommendations. Performed By: #### 4 6124 ####[facility] [address] [id number] Wojciech Oneal M.D. [id number] Urea nitrogen [Mass/Vol] 11 mg/dL Normal 8-25 [facility] Comment on above: Order Comment: [facility] has implemented the eGFR calculation approach that does not have a coefficient for race that conforms to the NKF-ASN Task Force Recommendations. Performed By: #### 4 6124 ####[facility] [address] [address] Wojciech Oneal M.D. [id number] Urea nitrogen/Creatinine [Mass ratio] 11.2 mg/mg Normal 10.0-20.0 [facility] Comment on above: Order Comment: [facility] has implemented the eGFR calculation approach that does not have a coefficient for race that conforms to the NKF-ASN Task Force Recommendations. Performed By: #### 4 6124 ####[facility] [address] [address] Wojciech Oneal M.D. [id number] CBCon 02-04-2025 AUTO NRBC 0.0 % Normal [facility] Comment on above: Performed By: #### 4 [id number] ####[facility] [address] [address] Wojciech Oneal M.D. [id number] AUTO NRBC ABS COUNT 0.00 K/mcL Normal 0.00-0.00 [facility] Comment on above: Performed By: #### 4 [id number] ####[facility] [address] [address] Wojciech Oneal M.D. [id number] Erythrocyte distribution width (RBC) [Ratio] 15.1 % High 11.6-14.8 [facility] Comment on above: Performed By: #### 4 [id number] ####[facility] [address] [address] Wojciech Oneal M.D. [id number] Hematocrit (Bld) [Volume fraction] 23.2 % Low 41.0-53.0 [facility] Comment on above: Performed By: #### 4 [id number] ####[facility] [address] [address] Wojciech Oneal M.D. [id number] Hemoglobin (Bld) [Mass/Vol] 7.1 g/dL Low 13.5-17.5 [facility] Comment on above: Performed By: #### 4 [id number] ####[facility] [address] [address] Wojciech Oneal M.D. [id number] MCH (RBC) [Entitic mass] 29.2 pg Normal 26.0-34.0 [facility] Comment on above: Performed By: #### 4 5218 ####[facility] [address], [place] [address] Wojciech Oneal M.D. [id number] MCV (RBC) [Entitic vol] 95.5 fL Normal 80.0-100.0 [facility] Comment on above: Performed By: #### 4 5218 ####[facility] [address] [address] Wojciech Oneal M.D. [id number] MEAN CORPUSCULAR HEMOGLOBIN CONC 30.6 g/dL Low 31.0-37.0 [facility] Comment on above: Performed By: #### 4 [id number] ####[facility] [address] [address] Wojciech Oneal M.D. [id number] Platelet mean volume (Bld) [Entitic vol] 8.6 fL Low 9.4-12.4 [facility] Comment on above: Performed By: #### 4 [id number] ####[facility] [address] [address] Wojciech Oneal M.D. [id number] Platelets (Bld) [#/Vol] 317 10*3/uL Normal 150-400 [facility] Comment on above: Performed By: #### 4 [id number] ####[facility] [address] [address] Wojciech Oneal M.D. [id number] RBC (Bld) [#/Vol] 2.43 10*6/uL Low 4.50-5.90 [facility] Comment on above: Performed By: #### 4 [id number] ####[facility] [address] [address] Wojciech Oneal M.D. [id number] WBC (Bld) [#/Vol] 8.26 10*3/uL Normal 4.50-11.00 [facility] Comment on above: Performed By: #### 4 [id number] ####[facility] [address] [address] Wojciech Oneal M.D. [id number] MAGNESIUM LEVELon 02-04-2025 Magnesium [Mass/Vol] 1.9 mg/dL Normal 1.6-2.4 [facility] Comment on above: Performed By: #### 4 6109 ####[facility] [address], [place] [address] Wojciech Oneal M.D. [id number] OP NOTEon 02-04-2025 OP NOTE Normal [facility] PHOSPHORUSon 02-04-2025 Phosphate [Mass/Vol] 2.4 mg/dL Normal 2.3-3.7 [facility] Comment on above: Performed By: #### 4 6299 ####[facility] [address] [address] Wojciech Oneal M.D. [id number] TYPE AND SCREENon 02-04-2025 TYPE AND SCREEN ABORH: O Positive AB SCREEN: Negative EXPIRATION DATE: 02/07/2025 23:59 EST [facility] Comment on above: Performed By: #### 4 6619 ####[facility] [address] [address] Radha Kelsey MD [id number] [facility] BASIC METABOLIC PANELon 01-13 Anion gap [Moles/Vol] 16 mmol/L Normal 10-20 [facility] Comment on above: Order Comment: [facility] has implemented the eGFR calculation approach that does not have a coefficient for race that conforms to the NKF-ASN Task Force Recommendations. Performed By: #### 4 6124 ####[facility] [address], [place] [address] Wojciech Oneal M.D. [id number] Calcium [Mass/Vol] 7.1 mg/dL Low 8.4-10.2 [facility] Comment on above: Order Comment: [facility] has implemented the eGFR calculation approach that does not have a coefficient for race that conforms to the NKF-ASN Task Force Recommendations. Performed By: #### 4 6124 ####[facility] [address] [address] Wojciech Oneal M.D. [id number] Chloride [Moles/Vol] 114 mmol/L High 98-108 [facility] Comment on above: Order Comment: [facility] has implemented the eGFR calculation approach that does not have a coefficient for race that conforms to the NKF-ASN Task Force Recommendations. Performed By: #### 4 6124 ####[facility] [address], [place] [address] Wojciech Oneal M.D. [id number] Creatinine [Mass/Vol] 0.94 mg/dL Normal 0.80-1.30 [facility] Comment on above: Order Comment: [facility] has implemented the eGFR calculation approach that does not have a coefficient for race that conforms to the NKF-ASN Task Force Recommendations. Performed By: #### 4 6124 ####[facility] [address], [place] [address] Wojciech Oneal M.D. [id number] EGFR 87 mL/min/1.73 m2 Normal >=60 [facility] Comment on above: Order Comment: [facility] has implemented the eGFR calculation approach that does not have a coefficient for race that conforms to the NKF-ASN Task Force Recommendations. Result Comment: Chelsea mated GFR was calculated using the 2020 CKD-EPI creatinine equation. Performed By: #### 4 6124 ####[facility] [address] [address] Wojciech Oneal M.D. [id number] Glucose [Mass/Vol] 90 mg/dL Normal 65-99 [facility] Comment on above: Order Comment: [facility] has implemented the eGFR calculation approach that does not have a coefficient for race that conforms to the NKF-ASN Task Force Recommendations. Performed By: #### 4 6124 ####[facility] [address] [address] Wojciech Oneal M.D. [id number] HCO3 (Bld) [Moles/Vol] 19 mmol/L Low 21-32 [facility] Comment on above: Order Comment: [facility] has implemented the eGFR calculation approach that does not have a coefficient for race that conforms to the NKF-ASN Task Force Recommendations. Performed By: #### 4 6124 ####[facility] [address], [place] [address] Wojciech Oneal M.D. [id number] Potassium [Moles/Vol] 3.7 mmol/L Normal 3.5-5.1 [facility] Comment on above: Order Comment: [facility] has implemented the eGFR calculation approach that does not have a coefficient for race that conforms to the NKF-ASN Task Force Recommendations. Performed By: #### 4 6124 ####[facility] [address] [address] Wojciech Oneal M.D. [id number] Sodium [Moles/Vol] 145 mmol/L Normal 135-145 [facility] Comment on above: Order Comment: [facility] has implemented the eGFR calculation approach that does not have a coefficient for race that conforms to the NKF-ASN Task Force Recommendations. Performed By: #### 4 6124 ####[facility] [address] [address] Wojciech Oneal M.D. [id number] Urea nitrogen [Mass/Vol] 11 mg/dL Normal 8-25 [facility] Comment on above: Order Comment: [facility] has implemented the eGFR calculation approach that does not have a coefficient for race that conforms to the NKF-ASN Task Force Recommendations. Performed By: #### 4 6124 ####[facility] [address] [address] Wojciech Oneal M.D. [id number] Urea nitrogen/Creatinine [Mass ratio] 11.7 mg/mg Normal 10.0-20.0 [facility] Comment on above: Order Comment: [facility] has implemented the eGFR calculation approach that does not have a coefficient for race that conforms to the NKF-ASN Task Force Recommendations. Performed By: #### 4 6124 ####[facility] [address], [place] [address] Wojciech Oneal M.D. [id number] CALCIUM, IONIZEDon CALCIUM IONIZED 4.5 mg/dL Normal 4.5-5.3 [facility] Comment on above: Performed By: #### 4 5190 ####[facility] [address], [place] [address] Wojciech Oneal M.D. [id number] CBCon 02-03-2025 AUTO NRBC 0.0 % Normal [facility] Comment on above: Performed By: #### 4 [id number] ####[facility] [address] [address] Wojciech Oneal M.D. [id number] AUTO NRBC ABS COUNT 0.00 K/mcL Normal 0.00-0.00 [facility] Comment on above: Performed By: #### 4 [id number] ####[facility] [address] [address] Wojciech Oneal M.D. [id number] Erythrocyte distribution width (RBC) [Ratio] 15.2 % High 11.6-14.8 [facility] Comment on above: Performed By: #### 4 [id number] ####[facility] [address] [address] Wojciech Oneal M.D. [id number] Hematocrit (Bld) [Volume fraction] 24.2 % Low 41.0-53.0 [facility] Comment on above: Performed By: #### 4 [id number] ####[facility] [address] [address] Wojciech Oneal M.D. [id number] Hemoglobin (Bld) [Mass/Vol] 7.4 g/dL Low 13.5-17.5 [facility] Comment on above: Performed By: #### 4 [id number] ####[facility] [address] [address] Wojciech Oneal M.D. [id number] MCH (RBC) [Entitic mass] 29.2 pg Normal 26.0-34.0 [facility] Comment on above: Performed By: #### 4 [id number] ####[facility] [address] [address] Wojciech Oneal M.D. [id number] MCV (RBC) [Entitic vol] 95.7 fL Normal 80.0-100.0 [facility] Comment on above: Performed By: #### 4 [id number] ####[facility] [address] [address] Wojciech Oneal M.D. [id number] MEAN CORPUSCULAR HEMOGLOBIN CONC 30.6 g/dL Low 31.0-37.0 [facility] Comment on above: Performed By: #### 4 5218 ####[facility] [address], [place] [address] Wojciech Oneal M.D. [id number] Platelet mean volume (Bld) [Entitic vol] 9.2 fL Low 9.4-12.4 [facility] Comment on above: Performed By: #### 4 [id number] ####[facility] [address], [place] [address] Wojciech Oneal M.D. [id number] Platelets (Bld) [#/Vol] 342 10*3/uL Normal 150-400 [facility] Comment on above: Performed By: #### 4 [id number] ####[facility] [address], [place] [address] Wojciech Oneal M.D. [id number] RBC (Bld) [#/Vol] 2.53 10*6/uL Low 4.50-5.90 [facility] Comment on above: Performed By: #### 4 [id number] ####[facility] [address] [address] Wojciech Oneal M.D. [id number] WBC (Bld) [#/Vol] 10.83 10*3/uL Normal 4.50-11.00 [facility] Comment on above: Performed By: #### 4 [id number] ####[facility] [address] [address] Wojciech Oneal M.D. [id number] MAGNESIUM LEVELon 02-03-2025 Magnesium [Mass/Vol] 2.1 mg/dL Normal 1.6-2.4 [facility] Comment on above: Performed By: #### 4 6109 ####[facility] [address] [address] Wojciech Oneal M.D. [id number] PHOSPHORUSon 02-03-2025 Phosphate [Mass/Vol] 2.4 mg/dL Normal 2.3-3.7 [facility] Comment on above: Performed By: #### 4 6299 ####[facility] [address] [address] Wojciech Oneal M.D. [id number] POTASSIUM LEVELon 02-03-2025 Potassium [Moles/Vol] 3.6 mmol/L Normal 3.5-5.1 [facility] Comment on above: Performed By: #### 4 6351 ####[facility] [address], [place] [address] Wojciech Oneal M.D. [id number] Potassium [Moles/Vol] 3.7 mmol/L Normal 3.5-5.1 [facility] Comment on above: Performed By: #### 4 6351 ####[facility] [address], [place] [address] Wojciech Oneal M.D. [id number] Potassium [Moles/Vol] 3.6 mmol/L Normal 3.5-5.1 [facility] Comment on above: Performed By: #### 4 6351 ####[facility] [address], [place] [address] Wojciech Oneal M.D. [id number] XR ABDOMEN /KUB/FLAT PLATE/1 VIEWon 02-03-2025 XR ABDOMEN /KUB/FLAT PLATE/1 VIEW Normal [facility] Comment on above: Order Comment: Injur y/Trauma or Illness?:Injury/TraumaHow long have you had these symptoms (acute/chronic)?:AcuteReason for exam?:Abdominal distention, vomitingHistory of cancer?:unkSurgeries, chemotherapy, or radiation?:unkType of Exam?:Subsequent/Follow-upMechanism of injury?:Abdominal distention, vomiting BASIC METABOLIC PANELon 01-13 Anion gap [Moles/Vol] 12 mmol/L Normal 10-20 [facility] Comment on above: Order Comment: [facility] has implemented the eGFR calculation approach that does not have a coefficient for race that conforms to the NKF-ASN Task Force Recommendations. Performed By: #### 4 6124 ####[facility] [address], [place] [address] Wojciech Oneal M.D. [id number] Calcium [Mass/Vol] 6.9 mg/dL Low 8.4-10.2 [facility] Comment on above: Order Comment: [facility] has implemented the eGFR calculation approach that does not have a coefficient for race that conforms to the NKF-ASN Task Force Recommendations. Performed By: #### 4 6124 ####[facility] [address] [address] Wojciech Oneal M.D. [id number] Chloride [Moles/Vol] 113 mmol/L High 98-108 [facility] Comment on above: Order Comment: [facility] has implemented the eGFR calculation approach that does not have a coefficient for race that conforms to the NKF-ASN Task Force Recommendations. Performed By: #### 4 6124 ####[facility] [address] [address] Wojciech Oneal M.D. [id number] Creatinine [Mass/Vol] 0.97 mg/dL Normal 0.80-1.30 [facility] Comment on above: Order Comment: [facility] has implemented the eGFR calculation approach that does not have a coefficient for race that conforms to the NKF-ASN Task Force Recommendations. Performed By: #### 4 6124 ####[facility] [address] [address] Wojciech Oneal M.D. [id number] EGFR 83 mL/min/1.73 m2 Normal >=60 [facility] Comment on above: Order Comment: [facility] has implemented the eGFR calculation approach that does not have a coefficient for race that conforms to the NKF-ASN Task Force Recommendations. Result Comment: Chelsea mated GFR was calculated using the 2020 CKD-EPI creatinine equation. Performed By: #### 4 6124 ####[facility] [address] [address] Wojciech Oneal M.D. [id number] Glucose [Mass/Vol] 108 mg/dL High 65-99 [facility] Comment on above: Order Comment: [facility] has implemented the eGFR calculation approach that does not have a coefficient for race that conforms to the NKF-ASN Task Force Recommendations. Performed By: #### 4 6124 ####[facility] [address] [address] Wojciech Oneal M.D. [id number] HCO3 (Bld) [Moles/Vol] 23 mmol/L Normal 21-32 [facility] Comment on above: Order Comment: [facility] has implemented the eGFR calculation approach that does not have a coefficient for race that conforms to the NKF-ASN Task Force Recommendations. Performed By: #### 4 6124 ####[facility] [address] [address] Wojciech Oneal M.D. [id number] Potassium [Moles/Vol] 3.2 mmol/L Low 3.5-5.1 [facility] Comment on above: Order Comment: [facility] has implemented the eGFR calculation approach that does not have a coefficient for race that conforms to the NKF-ASN Task Force Recommendations. Performed By: #### 4 6124 ####[facility] [address] [address] Wojciech Oneal M.D. [id number] Sodium [Moles/Vol] 145 mmol/L Normal 135-145 [facility] Comment on above: Order Comment: [facility] has implemented the eGFR calculation approach that does not have a coefficient for race that conforms to the NKF-ASN Task Force Recommendations. Performed By: #### 4 6124 ####[facility] [address] [address] Wojciech Oneal M.D. [id number] Urea nitrogen [Mass/Vol] 10 mg/dL Normal 8-25 [facility] Comment on above: Order Comment: [facility] has implemented the eGFR calculation approach that does not have a coefficient for race that conforms to the NKF-ASN Task Force Recommendations. Performed By: #### 4 6124 ####[facility] [address] [address] Wojciech Oneal M.D. [id number] Urea nitrogen/Creatinine [Mass ratio] 10.3 mg/mg Normal 10.0-20.0 [facility] Comment on above: Order Comment: [facility] has implemented the eGFR calculation approach that does not have a coefficient for race that conforms to the NKF-ASN Task Force Recommendations. Performed By: #### 4 6124 ####[facility] [address] [address] Wojciech Oneal M.D. [id number] CALCIUM, IONIZEDon 09-22-202 5 CALCIUM IONIZED 4.6 mg/dL Normal 4.5-5.3 [facility] Comment on above: Performed By: #### 4 5190 ####[facility] [address] [address] Wojciech Oneal M.D. [id number] CALCIUM IONIZED 4.2 mg/dL Low 4.5-5.3 [facility] Comment on above: Performed By: #### 4 5190 ####[facility] [address] [address] Wojciech Oneal M.D. [id number] CBCon 02-02-2025 AUTO NRBC 0.0 % Normal [facility] Comment on above: Performed By: #### 4 [id number] ####[facility] [address] [address] Wojciech Oneal M.D. [id number] AUTO NRBC ABS COUNT 0.00 K/mcL Normal 0.00-0.00 [facility] Comment on above: Performed By: #### 4 [id number] ####[facility] [address] [address] Wojciech Oneal M.D. [id number] Erythrocyte distribution width (RBC) [Ratio] 15.2 % High 11.6-14.8 [facility] Comment on above: Performed By: #### 4 [id number] ####[facility] [address] [address] Wojciech Oneal M.D. [id number] Hematocrit (Bld) [Volume fraction] 24.1 % Low 41.0-53.0 [facility] Comment on above: Performed By: #### 4 [id number] ####[facility] [address] [address] Wojciech Oneal M.D. [id number] Hemoglobin (Bld) [Mass/Vol] 7.4 g/dL Low 13.5-17.5 [facility] Comment on above: Performed By: #### 4 [id number] ####[facility] [address] [address] Wojciech Oneal M.D. [id number] MCH (RBC) [Entitic mass] 29.6 pg Normal 26.0-34.0 [facility] Comment on above: Performed By: #### 4 [id number] ####[facility] [address] [address] Wojciech Oneal M.D. [id number] MCV (RBC) [Entitic vol] 96.4 fL Normal 80.0-100.0 [facility] Comment on above: Performed By: #### 4 5218 ####[facility] [address] [address] Wojciech Oneal M.D. [id number] MEAN CORPUSCULAR HEMOGLOBIN CONC 30.7 g/dL Low 31.0-37.0 [facility] Comment on above: Performed By: #### 4 [id number] ####[facility] [address] [address] Wojciech Oneal M.D. [id number] Platelet mean volume (Bld) [Entitic vol] 8.9 fL Low 9.4-12.4 [facility] Comment on above: Performed By: #### 4 [id number] ####[facility] [address] [address] Wojciech Oneal M.D. [id number] Platelets (Bld) [#/Vol] 350 10*3/uL Normal 150-400 [facility] Comment on above: Performed By: #### 4 [id number] ####[facility] [address] [address] Wojciech Oneal M.D. [id number] RBC (Bld) [#/Vol] 2.50 10*6/uL Low 4.50-5.90 [facility] Comment on above: Performed By: #### 4 [id number] ####[facility] [address] [address] Wojciech Oneal M.D. [id number] WBC (Bld) [#/Vol] 13.04 10*3/uL High 4.50-11.00 [facility] Comment on above: Performed By: #### 4 [id number] ####[facility] [address] [address] Wojciech Oneal M.D. [id number] MAGNESIUM LEVELon 02-02-2025 Magnesium [Mass/Vol] 2.2 mg/dL Normal 1.6-2.4 [facility] Comment on above: Performed By: #### 4 6109 ####[facility] [address] [address] Wojciech Oneal M.D. [id number] Magnesium [Mass/Vol] 1.9 mg/dL Normal 1.6-2.4 [facility] Comment on above: Performed By: #### 4 6109 ####[facility] [address] [address] Wojciech Oneal M.D. [id number] PHOSPHORUSon 02-02-2025 Phosphate [Mass/Vol] 2.6 mg/dL Normal 2.3-3.7 [facility] Comment on above: Performed By: #### 4 6299 ####[facility] [address] [address] Wojciech Oneal M.D. [id number] POC GLUCOSE - [facility] 025 Glucose [Mass/Vol] 120 mg/dL [address] Comment on above: Performed By: #### 4 6932 ####[facility] [address] [address] [id number] [facility] Glucose [Mass/Vol] 118 mg/dL [address] Comment on above: Performed By: #### 4 6932 ####[facility] [address] [address] [id number] [facility] Glucose [Mass/Vol] 136 mg/dL [address] Comment on above: Performed By: #### 4 6932 ####[facility] [address] [address] [id number] [facility] Glucose [Mass/Vol] 138 mg/dL [address] Comment on above: Performed By: #### 4 6932 ####[facility] [address] [address] [id number] [facility] POTASSIUM LEVELon 02-02-2025 Potassium [Moles/Vol] 3.2 mmol/L Low 3.5-5.1 [facility] Comment on above: Performed By: #### 4 6351 ####[facility] [address], [place] [address] Wojciech Oneal M.D. [id number] XR ABDOMEN /KUB/FLAT PLATE/1 VIEWon 02-02-2025 XR ABDOMEN /KUB/FLAT PLATE/[address] [facility] Comment on above: Order Comment: Injur y/Trauma or Illness?:Illness/OtherHow long have you had these symptoms (acute/chronic)?:AcuteReason for exam?:Abdominal distention s/p decompressive colonoscopyHistory of cancer?:unkSurgeries, chemotherapy, or radiation?:unkType of Exam?:InitialAdditional signs and symptoms?:unk BASIC METABOLIC PANELon 01-13 Anion gap [Moles/Vol] 13 mmol/L Normal 10-20 [facility] Comment on above: Order Comment: [facility] has implemented the eGFR calculation approach that does not have a coefficient for race that conforms to the NKF-ASN Task Force Recommendations. Performed By: #### 4 6124 ####[facility] [address], [place] [address] Wojciech Oneal M.D. [id number] Calcium [Mass/Vol] 7.1 mg/dL Low 8.4-10.2 [facility] Comment on above: Order Comment: [facility] has implemented the eGFR calculation approach that does not have a coefficient for race that conforms to the NKF-ASN Task Force Recommendations. Performed By: #### 4 6124 ####[facility] [address], [place] [address] Wojciech Oneal M.D. [id number] Chloride [Moles/Vol] 114 mmol/L High 98-108 [facility] Comment on above: Order Comment: [facility] has implemented the eGFR calculation approach that does not have a coefficient for race that conforms to the NKF-ASN Task Force Recommendations. Performed By: #### 4 6124 ####[facility] [address], [place] [address] Wojciech Oneal M.D. [id number] Creatinine [Mass/Vol] 0.87 mg/dL Normal 0.80-1.30 [facility] Comment on above: Order Comment: [facility] has implemented the eGFR calculation approach that does not have a coefficient for race that conforms to the NKF-ASN Task Force Recommendations. Performed By: #### 4 6124 ####[facility] [address] [address] Wojciech Oneal M.D. [id number] EGFR 92 mL/min/1.73 m2 Normal >=60 [facility] Comment on above: Order Comment: [facility] has implemented the eGFR calculation approach that does not have a coefficient for race that conforms to the NKF-ASN Task Force Recommendations. Result Comment: Chelsea mated GFR was calculated using the 2020 CKD-EPI creatinine equation. Performed By: #### 4 6124 ####[facility] [address] [address] Wojciech Oneal M.D. [id number] Glucose [Mass/Vol] 108 mg/dL High 65-99 [facility] Comment on above: Order Comment: [facility] has implemented the eGFR calculation approach that does not have a coefficient for race that conforms to the NKF-ASN Task Force Recommendations. Performed By: #### 4 6124 ####[facility] [address] [address] Wojciech Oneal M.D. [id number] HCO3 (Bld) [Moles/Vol] 22 mmol/L Normal 21-32 [facility] Comment on above: Order Comment: [facility] has implemented the eGFR calculation approach that does not have a coefficient for race that conforms to the NKF-ASN Task Force Recommendations. Performed By: #### 4 6124 ####[facility] [address] [address] Wojciech Oneal M.D. [id number] Potassium [Moles/Vol] 2.9 mmol/L Low 3.5-5.1 [facility] Comment on above: Order Comment: [facility] has implemented the eGFR calculation approach that does not have a coefficient for race that conforms to the NKF-ASN Task Force Recommendations. Performed By: #### 4 6124 ####[facility] [address] [address] Wojciech Oneal M.D. [id number] Sodium [Moles/Vol] 146 mmol/L High 135-145 [facility] Comment on above: Order Comment: [facility] has implemented the eGFR calculation approach that does not have a coefficient for race that conforms to the NKF-ASN Task Force Recommendations. Performed By: #### 4 6124 ####[facility] [address], [place] [address] Wojciech Oneal M.D. [id number] Urea nitrogen [Mass/Vol] 12 mg/dL Normal 8-25 [facility] Comment on above: Order Comment: [facility] has implemented the eGFR calculation approach that does not have a coefficient for race that conforms to the NKF-ASN Task Force Recommendations. Performed By: #### 4 6124 ####[facility] [address] [address] Wojciech Oneal M.D. [id number] Urea nitrogen/Creatinine [Mass ratio] 13.8 mg/mg Normal 10.0-20.0 [facility] Comment on above: Order Comment: [facility] has implemented the eGFR calculation approach that does not have a coefficient for race that conforms to the NKF-ASN Task Force Recommendations. Performed By: #### 4 6124 ####[facility] [address] [address] Wojciech Oneal M.D. [id number] CALCIUM, IONIZEDon 5 CALCIUM IONIZED 4.2 mg/dL Low 4.5-5.3 [facility] Comment on above: Performed By: #### 4 5190 ####[facility] [address] [address] Wojciech Oneal M.D. [id number] CBCon 02-01-2025 AUTO NRBC 0.0 % Normal [facility] Comment on above: Performed By: #### 4 [id number] ####[facility] [address], [place] [address] Wojciech Oneal M.D. [id number] AUTO NRBC ABS COUNT 0.00 K/mcL Normal 0.00-0.00 [facility] Comment on above: Performed By: #### 4 [id number] ####[facility] [address] [address] Wojciech Oneal M.D. [id number] Erythrocyte distribution width (RBC) [Ratio] 14.9 % High 11.6-14.8 [facility] Comment on above: Performed By: #### 4 [id number] ####[facility] [address] [address] Wojciech Oneal M.D. [id number] Hematocrit (Bld) [Volume fraction] 23.6 % Low 41.0-53.0 [facility] Comment on above: Performed By: #### 4 [id number] ####[facility] [address] [address] Wojciech Oneal M.D. [id number] Hemoglobin (Bld) [Mass/Vol] 7.5 g/dL Low 13.5-17.5 [facility] Comment on above: Performed By: #### 4 [id number] ####[facility] [address] [address] Wojciech Oneal M.D. [id number] MCH (RBC) [Entitic mass] 29.8 pg Normal 26.0-34.0 [facility] Comment on above: Performed By: #### 4 [id number] ####[facility] [address] [address] Wojciech Oneal M.D. [id number] MCV (RBC) [Entitic vol] 93.7 fL Normal 80.0-100.0 [facility] Comment on above: Performed By: #### 4 [id number] ####[facility] [address] [address] Wojciech Oneal M.D. [id number] MEAN CORPUSCULAR HEMOGLOBIN CONC 31.8 g/dL Normal 31.0-37.0 [facility] Comment on above: Performed By: #### 4 [id number] ####[facility] [address] [address] Wojciech Oneal M.D. [id number] Platelet mean volume (Bld) [Entitic vol] 9.1 fL Low 9.4-12.4 [facility] Comment on above: Performed By: #### 4 [id number] ####[facility] [address], [place] [address] Wjociech Oneal M.D. [id number] Platelets (Bld) [#/Vol] 330 10*3/uL Normal 150-400 [facility] Comment on above: Performed By: #### 4 5218 ####[facility] [address], [place] [address] Wojciech Oneal M.D. [id number] RBC (Bld) [#/Vol] 2.52 10*6/uL Low 4.50-5.90 [facility] Comment on above: Performed By: #### 4 5218 ####[facility] [address] [address] Wojciech Onael M.D. [id number] WBC (Bld) [#/Vol] 16.02 10*3/uL High 4.50-11.00 [facility] Comment on above: Performed By: #### 4 [id number] ####[facility] [address] [address] Wojciech Oneal M.D. [id number] MAGNESIUM LEVELon 02-01-2025 Magnesium [Mass/Vol] 2.3 mg/dL Normal 1.6-2.4 [facility] Comment on above: Performed By: #### 4 6109 ####[facility] [address] [address] Wojciech Oneal M.D. [id number] Magnesium [Mass/Vol] 2.1 mg/dL Normal 1.6-2.4 [facility] Comment on above: Performed By: #### 4 6109 ####[facility] [address] [address] Wojciech Oneal M.D. [id number] PHOSPHORUSon 02-01-2025 Phosphate [Mass/Vol] 2.4 mg/dL Normal 2.3-3.7 [facility] Comment on above: Performed By: #### 4 6299 ####[facility] [address] [address] Wojciech Oneal M.D. [id number] POTASSIUM LEVELon 02-01-2025 Potassium [Moles/Vol] 3.2 mmol/L Low 3.5-5.1 [facility] Comment on above: Performed By: #### 4 6351 ####[facility] [address], [place] [address] Wojciech Oneal M.D. [id number] PREALBUMINon 02-01-2025 Prealbumin [Mass/Vol] 4.5 mg/dL Low 20.0-40.0 [facility] Comment on above: Performed By: #### 4 6355 ####[facility] [address], [place] [address] Wojciech Oneal M.D. [id number] XR ABDOMEN /KUB/FLAT PLATE/1 VIEWon 02-01-2025 XR ABDOMEN /KUB/FLAT PLATE/1 VIEW Normal [facility] Comment on above: Order Comment: Injur y/Trauma or Illness?:Illness/OtherHow long have you had these symptoms (acute/chronic)?:AcuteReason for exam?:colonic ileusHistory of cancer?:unkSurgeries, chemotherapy, or radiation?:unkType of Exam?:InitialAdditional signs and symptoms?:na BASIC METABOLIC PANELon 01-13 Anion gap [Moles/Vol] 14 mmol/L Normal 10-20 [facility] Comment on above: Order Comment: [facility] has implemented the eGFR calculation approach that does not have a coefficient for race that conforms to the NKF-ASN Task Force Recommendations. Performed By: #### 4 6124 ####[facility] [address], [place] [address] Wojicech Oneal M.D. [id number] Calcium [Mass/Vol] 7.3 mg/dL Low 8.4-10.2 [facility] Comment on above: Order Comment: [facility] has implemented the eGFR calculation approach that does not have a coefficient for race that conforms to the NKF-ASN Task Force Recommendations. Performed By: #### 4 6124 ####[facility] [address], [place] [address] Wojciech Oneal M.D. [id number] Chloride [Moles/Vol] 117 mmol/L High 98-108 [facility] Comment on above: Order Comment: [facility] has implemented the eGFR calculation approach that does not have a coefficient for race that conforms to the NKF-ASN Task Force Recommendations. Performed By: #### 4 6124 ####[facility] [address] [address] Wojciech Oneal M.D. [id number] Creatinine [Mass/Vol] 0.92 mg/dL Normal 0.80-1.30 [facility] Comment on above: Order Comment: [facility] has implemented the eGFR calculation approach that does not have a coefficient for race that conforms to the NKF-ASN Task Force Recommendations. Performed By: #### 4 6124 ####[facility] [address] [address] Wojciech Oneal M.D. [id number] EGFR 89 mL/min/1.73 m2 Normal >=60 [facility] Comment on above: Order Comment: [facility] has implemented the eGFR calculation approach that does not have a coefficient for race that conforms to the NKF-ASN Task Force Recommendations. Result Comment: Chelsea mated GFR was calculated using the 2020 CKD-EPI creatinine equation. Performed By: #### 4 6124 ####[facility] [address] [address] Wojciech Oneal M.D. [id number] Glucose [Mass/Vol] 112 mg/dL High 65-99 [facility] Comment on above: Order Comment: [facility] has implemented the eGFR calculation approach that does not have a coefficient for race that conforms to the NKF-ASN Task Force Recommendations. Performed By: #### 4 6124 ####[facility] [address] [address] Wojciech Oneal M.D. [id number] HCO3 (Bld) [Moles/Vol] 21 mmol/L Normal 21-32 [facility] Comment on above: Order Comment: [facility] has implemented the eGFR calculation approach that does not have a coefficient for race that conforms to the NKF-ASN Task Force Recommendations. Performed By: #### 4 6124 ####[facility] [address] [address] Wojciech Oneal M.D. [id number] Potassium [Moles/Vol] 3.4 mmol/L Low 3.5-5.1 [facility] Comment on above: Order Comment: [facility] has implemented the eGFR calculation approach that does not have a coefficient for race that conforms to the NKF-ASN Task Force Recommendations. Performed By: #### 4 6124 ####[facility] [address], [place] [address] Wojciech Oneal M.D. [id number] Sodium [Moles/Vol] 149 mmol/L High 135-145 [facility] Comment on above: Order Comment: [facility] has implemented the eGFR calculation approach that does not have a coefficient for race that conforms to the NKF-ASN Task Force Recommendations. Performed By: #### 4 6124 ####[facility] [address] [address] Wojciech Oneal M.D. [id number] Urea nitrogen [Mass/Vol] 16 mg/dL Normal 8-25 [facility] Comment on above: Order Comment: [facility] has implemented the eGFR calculation approach that does not have a coefficient for race that conforms to the NKF-ASN Task Force Recommendations. Performed By: #### 4 6124 ####[facility] [address] [address] Wojciech Oneal M.D. [id number] Urea nitrogen/Creatinine [Mass ratio] 17.4 mg/mg Normal 10.0-20.0 [facility] Comment on above: Order Comment: [facility] has implemented the eGFR calculation approach that does not have a coefficient for race that conforms to the NKF-ASN Task Force Recommendations. Performed By: #### 4 6124 ####[facility] [address], [place] [address] Wojciech Oneal M.D. [id number] CALCIUM, IONIZEDon CALCIUM IONIZED 4.5 mg/dL Normal 4.5-5.3 [facility] Comment on above: Performed By: #### 4 5190 ####[facility] [address], [place] [address] Wojciech Oneal M.D. [id number] CBCon 01-31-2025 AUTO NRBC 0.0 % Normal [facility] Comment on above: Performed By: #### 4 [id number] ####[facility] [address] [address] Wojciech Oneal M.D. [id number] AUTO NRBC ABS COUNT 0.00 K/mcL Normal 0.00-0.00 [facility] Comment on above: Performed By: #### 4 [id number] ####[facility] [address] [address] Wojciech Oneal M.D. [id number] Erythrocyte distribution width (RBC) [Ratio] 14.8 % Normal 11.6-14.8 [facility] Comment on above: Performed By: #### 4 [id number] ####[facility] [address] [address] Wojciech Oneal M.D. [id number] Hematocrit (Bld) [Volume fraction] 25.1 % Low 41.0-53.0 [facility] Comment on above: Performed By: #### 4 [id number] ####[facility] [address] [address] Wojciech Oneal M.D. [id number] Hemoglobin (Bld) [Mass/Vol] 7.8 g/dL Low 13.5-17.5 [facility] Comment on above: Performed By: #### 4 [id number] ####[facility] [address] [address] Wojciech Oneal M.D. [id number] MCH (RBC) [Entitic mass] 29.2 pg Normal 26.0-34.0 [facility] Comment on above: Performed By: #### 4 [id number] ####[facility] [address] [address] Wojciech Oneal M.D. [id number] MCV (RBC) [Entitic vol] 94.0 fL Normal 80.0-100.0 [facility] Comment on above: Performed By: #### 4 [id number] ####[facility] [address] [address] Wojciech Oneal M.D. [id number] MEAN CORPUSCULAR HEMOGLOBIN CONC 31.1 g/dL Normal 31.0-37.0 [facility] Comment on above: Performed By: #### 4 [id number] ####[facility] [address], [place] [address] Wojciech Oneal M.D. [id number] Platelet mean volume (Bld) [Entitic vol] 8.9 fL Low 9.4-12.4 [facility] Comment on above: Performed By: #### 4 [id number] ####[facility] [address] [address] Wojciech Oneal M.D. [id number] Platelets (Bld) [#/Vol] 338 10*3/uL Normal 150-400 [facility] Comment on above: Performed By: #### 4 [id number] ####[facility] [address] [address] Wojciech Oneal M.D. [id number] RBC (Bld) [#/Vol] 2.67 10*6/uL Low 4.50-5.90 [facility] Comment on above: Performed By: #### 4 [id number] ####[facility] [address] [address] Wojciech Oneal M.D. [id number] WBC (Bld) [#/Vol] 15.38 10*3/uL High 4.50-11.00 [facility] Comment on above: Performed By: #### 4 [id number] ####[facility] [address], [place] [address] Wojciech Oneal M.D. [id number] MAGNESIUM LEVELon 01-31-2025 Magnesium [Mass/Vol] 1.9 mg/dL Normal 1.6-2.4 [facility] Comment on above: Performed By: #### 4 6109 ####[facility] [address] [address] Wojciech Oneal M.D. [id number] PHOSPHORUSon 01-31-2025 Phosphate [Mass/Vol] 2.4 mg/dL Normal 2.3-3.7 [facility] Comment on above: Performed By: #### 4 6299 ####[facility] [address] [address] Wojciech Oneal M.D. [id number] [facility] Glucose [Mass/Vol] 120 mg/dL [address] Comment on above: Performed By: #### 4 6932 ####[facility] [address] [place] [address] [id number] [facility] Glucose [Mass/Vol] 110 mg/dL [address] Comment on above: Performed By: #### 4 6932 ####[facility] [address] [address] [id number] [facility] Glucose [Mass/Vol] 116 mg/dL [address] Comment on above: Performed By: #### 4 6932 ####[facility] [address] [address] [id number] [facility] Glucose [Mass/Vol] 113 mg/dL [address] Comment on above: Performed By: #### 4 6932 ####[facility] [address] [address] [id number] [facility] Glucose [Mass/Vol] 133 mg/dL [address] Comment on above: Performed By: #### 4 6932 ####[facility] [address] [address] [id number] [facility] Glucose [Mass/Vol] 112 mg/dL [address] Comment on above: Performed By: #### 4 6932 ####[facility] [address] [address] [id number] [facility] Glucose [Mass/Vol] 111 mg/dL [address] Comment on above: Performed By: #### 4 6932 ####[facility] [address] [address] [id number] [facility] POTASSIUM LEVELon 01-31-2025 Potassium [Moles/Vol] 3.1 mmol/L Low 3.5-5.1 [facility] Comment on above: Performed By: #### 4 6351 ####[facility] [address] [address] Wojciech Oneal M.D. [id number] BASIC METABOLIC PANELon 01-12 Anion gap [Moles/Vol] 21 mmol/L High 10-20 [facility] Comment on above: Order Comment: [facility] has implemented the eGFR calculation approach that does not have a coefficient for race that conforms to the NKF-ASN Task Force Recommendations. Performed By: #### 4 6124 ####[facility] [address], [place] [address] Wojciech Oneal M.D. [id number] Calcium [Mass/Vol] 7.8 mg/dL Low 8.4-10.2 [facility] Comment on above: Order Comment: [facility] has implemented the eGFR calculation approach that does not have a coefficient for race that conforms to the NKF-ASN Task Force Recommendations. Performed By: #### 4 6124 ####[facility] [address], [place] [address] Wojciech Oneal M.D. [id number] Chloride [Moles/Vol] 108 mmol/L Normal 98-108 [facility] Comment on above: Order Comment: [facility] has implemented the eGFR calculation approach that does not have a coefficient for race that conforms to the NKF-ASN Task Force Recommendations. Performed By: #### 4 6124 ####[facility] [address], [place] [address] Wojciech Oneal M.D. [id number] Creatinine [Mass/Vol] 0.96 mg/dL Normal 0.80-1.30 [facility] Comment on above: Order Comment: [facility] has implemented the eGFR calculation approach that does not have a coefficient for race that conforms to the NKF-ASN Task Force Recommendations. Performed By: #### 4 6124 ####[facility] [address], [place] [address] Wojciech Oneal M.D. [id number] EGFR 85 mL/min/1.73 m2 Normal >=60 [facility] Comment on above: Order Comment: [facility] has implemented the eGFR calculation approach that does not have a coefficient for race that conforms to the NKF-ASN Task Force Recommendations. Result Comment: Chelsea mated GFR was calculated using the 2020 CKD-EPI creatinine equation. Performed By: #### 4 6124 ####[facility] [address] [address] Wojciech Oneal M.D. [id number] Glucose [Mass/Vol] 75 mg/dL Normal 65-99 [facility] Comment on above: Order Comment: [facility] has implemented the eGFR calculation approach that does not have a coefficient for race that conforms to the NKF-ASN Task Force Recommendations. Performed By: #### 4 6124 ####[facility] [address] [address] Wojciech Oneal M.D. [id number] HCO3 (Bld) [Moles/Vol] 19 mmol/L Low 21-32 [facility] Comment on above: Order Comment: [facility] has implemented the eGFR calculation approach that does not have a coefficient for race that conforms to the NKF-ASN Task Force Recommendations. Performed By: #### 4 6124 ####[facility] [address] [address] Wojciech Oneal M.D. [id number] Potassium [Moles/Vol] 3.2 mmol/L Low 3.5-5.1 [facility] Comment on above: Order Comment: [facility] has implemented the eGFR calculation approach that does not have a coefficient for race that conforms to the NKF-ASN Task Force Recommendations. Performed By: #### 4 6124 ####[facility] [address] [address] Wojciech Oneal M.D. [id number] Sodium [Moles/Vol] 145 mmol/L Normal 135-145 [facility] Comment on above: Order Comment: [facility] has implemented the eGFR calculation approach that does not have a coefficient for race that conforms to the NKF-ASN Task Force Recommendations. Performed By: #### 4 6124 ####[facility] [address] [address] Wojciech Oneal M.D. [id number] Urea nitrogen [Mass/Vol] 19 mg/dL Normal 8-25 [facility] Comment on above: Order Comment: [facility] has implemented the eGFR calculation approach that does not have a coefficient for race that conforms to the NKF-ASN Task Force Recommendations. Performed By: #### 4 6124 ####[facility] [address] [address] Wojciech Oneal M.D. [id number] Urea nitrogen/Creatinine [Mass ratio] 19.8 mg/mg Normal 10.0-20.0 [facility] Comment on above: Order Comment: [facility] has implemented the eGFR calculation approach that does not have a coefficient for race that conforms to the NKF-ASN Task Force Recommendations. Performed By: #### 4 6124 ####[facility] [address] [address] Wojciech Oneal M.D. [id number] CALCIUM, IONIZEDon CALCIUM IONIZED 4.5 mg/dL Normal 4.5-5.3 [facility] Comment on above: Performed By: #### 4 5190 ####[facility] [address] [address] Wojciech Oneal M.D. [id number] CBCon 01-30-2025 AUTO NRBC 0.0 % Normal [facility] Comment on above: Performed By: #### 4 [id number] ####[facility] [address] [id number] Wojciech Oneal M.D. [id number] AUTO NRBC ABS COUNT 0.00 K/mcL Normal 0.00-0.00 [facility] Comment on above: Performed By: #### 4 [id number] ####[facility] [address] [id number] Wojciech Oneal M.D. [id number] Erythrocyte distribution width (RBC) [Ratio] 14.9 % High 11.6-14.8 [facility] Comment on above: Performed By: #### 4 [id number] ####[facility] [address] [id number] Wojciech Oneal M.D. [id number] Hematocrit (Bld) [Volume fraction] 30.0 % Low 41.0-53.0 [facility] Comment on above: Performed By: #### 4 [id number] ####[facility] [address] [address] Wojciech Oneal M.D. [id number] Hemoglobin (Bld) [Mass/Vol] 9.0 g/dL Low 13.5-17.5 [facility] Comment on above: Performed By: #### 4 [id number] ####[facility] [address] [address] Wojciech Oneal M.D. [id number] MCH (RBC) [Entitic mass] 29.4 pg Normal 26.0-34.0 [facility] Comment on above: Performed By: #### 4 [id number] ####[facility] [address] [address] Wojciech Oneal M.D. [id number] MCV (RBC) [Entitic vol] 98.0 fL Normal 80.0-100.0 [facility] Comment on above: Performed By: #### 4 [id number] ####[facility] [address] [address] Wojciech Oneal M.D. [id number] MEAN CORPUSCULAR HEMOGLOBIN CONC 30.0 g/dL Low 31.0-37.0 [facility] Comment on above: Performed By: #### 4 [id number] ####[facility] [address] [address] Wojciech Oneal M.D. [id number] Platelet mean volume (Bld) [Entitic vol] 9.0 fL Low 9.4-12.4 [facility] Comment on above: Performed By: #### 4 [id number] ####[facility] [address] [address] Wojciech Oneal M.D. [id number] Platelets (Bld) [#/Vol] 398 10*3/uL Normal 150-400 [facility] Comment on above: Performed By: #### 4 [id number] ####[facility] [address] [address] Wojciech Oneal M.D. [id number] RBC (Bld) [#/Vol] 3.06 10*6/uL Low 4.50-5.90 [facility] Comment on above: Performed By: #### 4 [id number] ####[facility] [address] [address] Wojciech Oneal M.D. [id number] WBC (Bld) [#/Vol] 17.39 10*3/uL High 4.50-11.00 [facility] Comment on above: Performed By: #### 4 5218 ####[facility] [address] [address] Wojciech Oneal M.D. [id number] CONSULTon 01-30-2025 CONSULT [facility] MAGNESIUM LEVELon 01-30-2025 Magnesium [Mass/Vol] 2.2 mg/dL Normal 1.6-2.4 [facility] Comment on above: Performed By: #### 4 6109 ####[facility] [address] [address] Wojciech Oneal M.D. [id number] PHOSPHORUSon 01-30-2025 Phosphate [Mass/Vol] 2.8 mg/dL Normal 2.3-3.7 [facility] Comment on above: Performed By: #### 4 6299 ####[facility] [address] [address] Wojciech Oneal M.D. [id number] POC GLUCOSE - [facility] 025 Glucose [Mass/Vol] 101 mg/dL High [address] [place] [address] Comment on above: Performed By: #### 4 6932 ####[facility] [address] [address] [id number] GMCPOC Glucose [Mass/Vol] 81 mg/dL Normal [address] [place] [address] Comment on above: Performed By: #### 4 6932 ####[facility] [address] [address] [id number] [facility] Glucose [Mass/Vol] 95 mg/dL Normal [address] [place] [address] Comment on above: Performed By: #### 4 6932 ####[facility] [address] [address] [id number] [facility] Glucose [Mass/Vol] 89 mg/dL Normal [address] [place] [address] Comment on above: Performed By: #### 4 6932 ####[facility] [address] [address] [id number] [facility] XR ABDOMEN /KUB/FLAT PLATE/1 VIEWon 01-30-2025 XR ABDOMEN /KUB/FLAT PLATE/1 VIEW [facility] Comment on above: Order Comment: Injur y/Trauma or Illness?:Injury/TraumaHow long have you had these symptoms (acute/chronic)?:AcuteReason for exam?:OG/NG placementHistory of cancer?:unkSurgeries, chemotherapy, or radiation?:unkType of Exam?:Subsequent/Follow-upMechanism of injury?:OG/NG placement XR ABDOMEN /KUB/FLAT PLATE/1 VIEW [facility] Comment on above: Order Comment: Injur y/Trauma or Illness?:Illness/OtherHow long have you had these symptoms (acute/chronic)?:UnknownReason for exam?:tube inHistory of cancer?:unkSurgeries, chemotherapy, or radiation?:unkType of Exam?:UnknownAdditional signs and symptoms?:na XR ABDOMEN 2 VIEWSon 025 XR ABDOMEN 2 VIEWS [facility] Comment on above: Order Comment: Injur y/Trauma or Illness?:Illness/OtherHow long have you had these symptoms (acute/chronic)?:UnknownReason for exam?:IleusHistory of cancer?:unkSurgeries, chemotherapy, or radiation?:unkType of Exam?:UnknownAdditional signs and symptoms?:Ileus BASIC METABOLIC PANELon 01-12 Anion gap [Moles/Vol] 17 mmol/L Normal 10-20 [facility] Comment on above: Order Comment: [facility] has implemented the eGFR calculation approach that does not have a coefficient for race that conforms to the NKF-ASN Task Force Recommendations. Performed By: #### 4 6124 ####[facility] [address], [place] [address] Wojciech Oneal M.D. [id number] Calcium [Mass/Vol] 8.2 mg/dL Low 8.4-10.2 [facility] Comment on above: Order Comment: [facility] has implemented the eGFR calculation approach that does not have a coefficient for race that conforms to the NKF-ASN Task Force Recommendations. Performed By: #### 4 6124 ####[facility] [address], [place] [address] Wojciech Oneal M.D. [id number] Chloride [Moles/Vol] 112 mmol/L High 98-108 [facility] Comment on above: Order Comment: [facility] has implemented the eGFR calculation approach that does not have a coefficient for race that conforms to the NKF-ASN Task Force Recommendations. Performed By: #### 4 6124 ####[facility] [address] [address] Wojciech Oneal M.D. [id number] Creatinine [Mass/Vol] 1.01 mg/dL Normal 0.80-1.30 [facility] Comment on above: Order Comment: [facility] has implemented the eGFR calculation approach that does not have a coefficient for race that conforms to the NKF-ASN Task Force Recommendations. Performed By: #### 4 6124 ####[facility] [address] [address] Wojciech Oneal M.D. [id number] EGFR 80 mL/min/1.73 m2 Normal >=60 [facility] Comment on above: Order Comment: [facility] has implemented the eGFR calculation approach that does not have a coefficient for race that conforms to the NKF-ASN Task Force Recommendations. Result Comment: Chelsea mated GFR was calculated using the 2020 CKD-EPI creatinine equation. Performed By: #### 4 6124 ####[facility] [address] [address] Wojciech Oneal M.D. [id number] Glucose [Mass/Vol] 90 mg/dL Normal 65-99 [facility] Comment on above: Order Comment: [facility] has implemented the eGFR calculation approach that does not have a coefficient for race that conforms to the NKF-ASN Task Force Recommendations. Performed By: #### 4 6124 ####[facility] [address] [address] Wojciech Oneal M.D. [id number] HCO3 (Bld) [Moles/Vol] 23 mmol/L Normal 21-32 [facility] Comment on above: Order Comment: [facility] has implemented the eGFR calculation approach that does not have a coefficient for race that conforms to the NKF-ASN Task Force Recommendations. Performed By: #### 4 6124 ####[facility] [address] [address] Wojciech Oneal M.D. [id number] Potassium [Moles/Vol] 3.3 mmol/L Low 3.5-5.1 [facility] Comment on above: Order Comment: [facility] has implemented the eGFR calculation approach that does not have a coefficient for race that conforms to the NKF-ASN Task Force Recommendations. Performed By: #### 4 6124 ####[facility] [address], [place] [address] Wojciech Oneal M.D. [id number] Sodium [Moles/Vol] 149 mmol/L High 135-145 [facility] Comment on above: Order Comment: [facility] has implemented the eGFR calculation approach that does not have a coefficient for race that conforms to the NKF-ASN Task Force Recommendations. Performed By: #### 4 6124 ####[facility] [address] [address] Wojciech Oneal M.D. [id number] Urea nitrogen [Mass/Vol] 18 mg/dL Normal 8-25 [facility] Comment on above: Order Comment: [facility] has implemented the eGFR calculation approach that does not have a coefficient for race that conforms to the NKF-ASN Task Force Recommendations. Performed By: #### 4 6124 ####[facility] [address] [address] Wojciech Oneal M.D. [id number] Urea nitrogen/Creatinine [Mass ratio] 17.8 mg/mg Normal 10.0-20.0 [facility] Comment on above: Order Comment: [facility] has implemented the eGFR calculation approach that does not have a coefficient for race that conforms to the NKF-ASN Task Force Recommendations. Performed By: #### 4 6124 ####[facility] [address], [place] [address] Wojciech Oneal M.D. [id number] CALCIUM, IONIZEDon 5 CALCIUM IONIZED 4.6 mg/dL Normal 4.5-5.3 [facility] Comment on above: Performed By: #### 4 5190 ####[facility] [address] [address] Wojciech Oneal M.D. [id number] CBCon 01-29-2025 AUTO NRBC 0.0 % Normal [facility] Comment on above: Performed By: #### 4 [id number] ####[facility] [address] [address] Wojciech Oneal M.D. [id number] AUTO NRBC ABS COUNT 0.00 K/mcL Normal 0.00-0.00 [facility] Comment on above: Performed By: #### 4 [id number] ####[facility] [address] [address] Wojciech Oneal M.D. [id number] Erythrocyte distribution width (RBC) [Ratio] 14.6 % Normal 11.6-14.8 [facility] Comment on above: Performed By: #### 4 [id number] ####[facility] [address] [address] Wojciech Oneal M.D. [id number] Hematocrit (Bld) [Volume fraction] 26.8 % Low 41.0-53.0 [facility] Comment on above: Performed By: #### 4 [id number] ####[facility] [address] [address] Wojciech Oneal M.D. [id number] Hemoglobin (Bld) [Mass/Vol] 8.5 g/dL Low 13.5-17.5 [facility] Comment on above: Performed By: #### 4 [id number] ####[facility] [address] [address] Wojciech Oneal M.D. [id number] MCH (RBC) [Entitic mass] 30.2 pg Normal 26.0-34.0 [facility] Comment on above: Performed By: #### 4 [id number] ####[facility] [address] [address] Wojciech Oenal M.D. [id number] MCV (RBC) [Entitic vol] 95.4 fL Normal 80.0-100.0 [facility] Comment on above: Performed By: #### 4 5218 ####[facility] [address], [place] [address] Wojciech Oneal M.D. [id number] MEAN CORPUSCULAR HEMOGLOBIN CONC 31.7 g/dL Normal 31.0-37.0 [facility] Comment on above: Performed By: #### 4 [id number] ####[facility] [address], [place] [address] Wojciech Oneal M.D. [id number] Platelet mean volume (Bld) [Entitic vol] 9.0 fL Low 9.4-12.4 [facility] Comment on above: Performed By: #### 4 [id number] ####[facility] [address] [address] Wojciech Oneal M.D. [id number] Platelets (Bld) [#/Vol] 367 10*3/uL Normal 150-400 [facility] Comment on above: Performed By: #### 4 [id number] ####[facility] [address] [address] Wojciech Oneal M.D. [id number] RBC (Bld) [#/Vol] 2.81 10*6/uL Low 4.50-5.90 [facility] Comment on above: Performed By: #### 4 [id number] ####[facility] [address] [address] Wojciech Oneal M.D. [id number] WBC (Bld) [#/Vol] 18.10 10*3/uL High 4.50-11.00 [facility] Comment on above: Performed By: #### 4 [id number] ####[facility] [address], [place] [address] Wojciech Oneal M.D. [id number] MAGNESIUM LEVELon 01-29-2025 Magnesium [Mass/Vol] 2.3 mg/dL Normal 1.6-2.4 [facility] Comment on above: Performed By: #### 4 6109 ####[facility] [address] [address] Wojciech Oneal M.D. [id number] Magnesium [Mass/Vol] 2.2 mg/dL Normal 1.6-2.4 [facility] Comment on above: Performed By: #### 4 6109 ####[facility] [address] [address] Wojciech Oneal M.D. [id number] PHOSPHORUSon 01-29-2025 Phosphate [Mass/Vol] 2.5 mg/dL Normal 2.3-3.7 [facility] Comment on above: Performed By: #### 4 6299 ####[facility] [address] [address] Wojciech Oneal M.D. [id number] Phosphate [Mass/Vol] 2.2 mg/dL Low 2.3-3.7 [facility] Comment on above: Performed By: #### 4 6299 ####[facility] [address] [address] Wojciech Oneal M.D. [id number] POC GLUCOSE - [facility] 025 Glucose [Mass/Vol] 96 mg/dL Normal 65-99 [facility] Comment on above: Performed By: #### 4 6932 ####[facility] [address] [address] [id number] [facility] Glucose [Mass/Vol] 99 mg/dL Normal [address] [place] [address] Comment on above: Performed By: #### 4 6932 ####[facility] [address] [address] [id number] [facility] Glucose [Mass/Vol] 108 mg/dL High [address] [place] [address] Comment on above: Performed By: #### 4 6932 ####[facility] [address] [address] [id number] [facility] POTASSIUM LEVELon 01-29-2025 Potassium [Moles/Vol] 3.6 mmol/L Normal 3.5-5.1 [facility] Comment on above: Performed By: #### 4 6351 ####[facility] [address] [address] Wojciech Oneal M.D. [id number] XR ABDOMEN /KUB/FLAT PLATE/1 VIEWon 01-29-2025 XR ABDOMEN /KUB/FLAT PLATE/1 VIEW [facility] Comment on above: Order Comment: Injur y/Trauma or Illness?:Illness/OtherHow long have you had these symptoms (acute/chronic)?:AcuteReason for exam?:leusHistory of cancer?:unkSurgeries, chemotherapy, or radiation?:unkType of Exam?:InitialAdditional signs and symptoms?:history of hypertension, heart failure, lymphedema, presented on 01/22/2025 with necrotizing infection. [facility] consulted by Acute Care SurgEsther for medical management. BASIC METABOLIC PANELon 01-12 Anion gap [Moles/Vol] 15 mmol/L Normal 10-20 [facility] Comment on above: Order Comment: [facility] has implemented the eGFR calculation approach that does not have a coefficient for race that conforms to the NKF-ASN Task Force Recommendations. Performed By: #### 4 6124 ####[facility] [address] [address] Wojciech Oneal M.D. [id number] Calcium [Mass/Vol] 7.9 mg/dL Low 8.4-10.2 [facility] Comment on above: Order Comment: [facility] has implemented the eGFR calculation approach that does not have a coefficient for race that conforms to the NKF-ASN Task Force Recommendations. Performed By: #### 4 6124 ####[facility] [address] [address] Wojciech Oneal M.D. [id number] Chloride [Moles/Vol] 111 mmol/L High 98-108 [facility] Comment on above: Order Comment: [facility] has implemented the eGFR calculation approach that does not have a coefficient for race that conforms to the NKF-ASN Task Force Recommendations. Performed By: #### 4 6117 ####[facility] [address] [address] Wojciech Oneal M.D. [id number] Creatinine [Mass/Vol] 1.01 mg/dL Normal 0.80-1.30 [facility] Comment on above: Order Comment: [facility] has implemented the eGFR calculation approach that does not have a coefficient for race that conforms to the NKF-ASN Task Force Recommendations. Performed By: #### 4 6124 ####[facility] [address] [address] Wojciech Oneal M.D. [id number] EGFR 80 mL/min/1.73 m2 Normal >=60 [facility] Comment on above: Order Comment: [facility] has implemented the eGFR calculation approach that does not have a coefficient for race that conforms to the NKF-ASN Task Force Recommendations. Result Comment: Chelsea mated GFR was calculated using the 2020 CKD-EPI creatinine equation. Performed By: #### 4 6124 ####[facility] [address] [address] Wojciech Oneal M.D. [id number] Glucose [Mass/Vol] 106 mg/dL High 65-99 [facility] Comment on above: Order Comment: [facility] has implemented the eGFR calculation approach that does not have a coefficient for race that conforms to the NKF-ASN Task Force Recommendations. Performed By: #### 4 6124 ####[facility] [address] [address] Wojciech Oneal M.D. [id number] HCO3 (Bld) [Moles/Vol] 25 mmol/L Normal 21-32 [facility] Comment on above: Order Comment: [facility] has implemented the eGFR calculation approach that does not have a coefficient for race that conforms to the NKF-ASN Task Force Recommendations. Performed By: #### 4 6124 ####[facility] [address], [place] [address] Wojciech Oneal M.D. [id number] Potassium [Moles/Vol] 3.8 mmol/L Normal 3.5-5.1 [facility] Comment on above: Order Comment: [facility] has implemented the eGFR calculation approach that does not have a coefficient for race that conforms to the NKF-ASN Task Force Recommendations. Performed By: #### 4 6124 ####[facility] [address], [place] [address] Wojciech Oneal M.D. [id number] Sodium [Moles/Vol] 147 mmol/L High 135-145 [facility] Comment on above: Order Comment: [facility] has implemented the eGFR calculation approach that does not have a coefficient for race that conforms to the NKF-ASN Task Force Recommendations. Performed By: #### 4 6124 ####[facility] [address], [place] [address] Wojciech Oneal M.D. [id number] Urea nitrogen [Mass/Vol] 17 mg/dL Normal 8-25 [facility] Comment on above: Order Comment: [facility] has implemented the eGFR calculation approach that does not have a coefficient for race that conforms to the NKF-ASN Task Force Recommendations. Performed By: #### 4 6124 ####[facility] [address] [address] Wojciech Oneal M.D. [id number] Urea nitrogen/Creatinine [Mass ratio] 16.8 mg/mg Normal 10.0-20.0 [facility] Comment on above: Order Comment: [facility] has implemented the eGFR calculation approach that does not have a coefficient for race that conforms to the NKF-ASN Task Force Recommendations. Performed By: #### 4 6124 ####[facility] [address] [address] Wojciech Oneal M.D. [id number] CALCIUM, IONIZEDon 5 CALCIUM IONIZED 4.5 mg/dL Normal 4.5-5.3 [facility] Comment on above: Performed By: #### 4 5190 ####[facility] [address], [place] [address] Wojciech Oneal M.D. [id number] CBCon 01-28-2025 AUTO NRBC 0.0 % Normal [facility] Comment on above: Performed By: #### 4 5218 ####[facility] [address], [place] [address] Wojciech Oneal M.D. [id number] AUTO NRBC ABS COUNT 0.00 K/mcL Normal 0.00-0.00 [facility] Comment on above: Performed By: #### 4 5218 ####[facility] [address], [place] [address] Wojciech Oneal M.D. [id number] Erythrocyte distribution width (RBC) [Ratio] 14.1 % Normal 11.6-14.8 [facility] Comment on above: Performed By: #### 4 5218 ####[facility] [address] [address] Wojciech Oneal M.D. [id number] Hematocrit (Bld) [Volume fraction] 23.0 % Low 41.0-53.0 [facility] Comment on above: Performed By: #### 4 5218 ####[facility] [address] [address] Wojciech Oneal M.D. [id number] Hemoglobin (Bld) [Mass/Vol] 7.1 g/dL Low 13.5-17.5 [facility] Comment on above: Performed By: #### 4 [id number] ####[facility] [address] [address] Wojciech Oneal M.D. [id number] MCH (RBC) [Entitic mass] 29.6 pg Normal 26.0-34.0 [facility] Comment on above: Performed By: #### 4 [id number] ####[facility] [address] [address] Wojciech Oneal M.D. [id number] MCV (RBC) [Entitic vol] 95.8 fL Normal 80.0-100.0 [facility] Comment on above: Performed By: #### 4 5218 ####[facility] [address] [address] Wojciech Oneal M.D. [id number] MEAN CORPUSCULAR HEMOGLOBIN CONC 30.9 g/dL Low 31.0-37.0 [facility] Comment on above: Performed By: #### 4 [id number] ####[facility] [address] [address] Wojciech Oneal M.D. [id number] Platelet mean volume (Bld) [Entitic vol] 9.0 fL Low 9.4-12.4 [facility] Comment on above: Performed By: #### 4 [id number] ####[facility] [address] [address] Wojciech Oneal M.D. [id number] Platelets (Bld) [#/Vol] 361 10*3/uL Normal 150-400 [facility] Comment on above: Performed By: #### 4 [id number] ####[facility] [address], [place] [address] Wojciech Oneal M.D. [id number] RBC (Bld) [#/Vol] 2.40 10*6/uL Low 4.50-5.90 [facility] Comment on above: Performed By: #### 4 [id number] ####[facility] [address] [id number] Wojciech Oneal M.D. [id number] WBC (Bld) [#/Vol] 22.11 10*3/uL High 4.50-11.00 [facility] Comment on above: Performed By: #### 4 [id number] ####[facility] [address], [place] [address] Wojciech Oneal M.D. [id number] CT ABDOMEN PELVIS WITH IV CO NTRAST ONLYon 01-28-2025 CT ABDOMEN PELVIS WITH IV CONTRAST ONLY Normal [facility] Comment on above: Order Comment: Injur y/Trauma or Illness?:Illness/OtherHow long have you had these symptoms (acute/chronic)?:AcuteReason for exam?:Abdominal pain, post-op, Bowel obstruction suspectedType of Exam?:Subsequent/Follow-upAdditional signs and symptoms?:Abdominal pain, post-op, Bowel obstruction suspected MAGNESIUM LEVELon 01-28-2025 Magnesium [Mass/Vol] 2.2 mg/dL Normal 1.6-2.4 [facility] Comment on above: Performed By: #### 4 6109 ####[facility] [address] [id number] Wojciech Oneal M.D. [id number] PHOSPHORUSon 01-28-2025 Phosphate [Mass/Vol] 2.4 mg/dL Normal 2.3-3.7 [facility] Comment on above: Performed By: #### 4 6299 ####[facility] [address], [place] [address] Wojciech Oneal M.D. [id number] [facility] Glucose [Mass/Vol] 104 mg/dL High 65-99 [facility] Comment on above: Performed By: #### 4 6932 ####[facility] [address] [address] [id number] GMCPOC Glucose [Mass/Vol] 91 mg/dL Normal 65- [facility] Comment on above: Performed By: #### 4 6932 ####[facility] [address] [address] [id number] GMCPOC Glucose [Mass/Vol] 91 mg/dL Normal 65- [facility] Comment on above: Performed By: #### 4 6932 ####[facility] [address] [address] [id number] GMCPOC Glucose [Mass/Vol] 100 mg/dL High - [facility] Comment on above: Performed By: #### 4 6932 ####[facility] [address] [address] [id number] GMCPOC XR ABDOMEN /KUB/FLAT PLATE/1 VIEWon 01-28-2025 XR ABDOMEN /KUB/FLAT PLATE/1 VIEW Normal [facility] Comment on above: Order Comment: Injur y/Trauma or Illness?:Illness/OtherHow long have you had these symptoms (acute/chronic)?:AcuteReason for exam?:abdominal distentionHistory of cancer?:unkSurgeries, chemotherapy, or radiation?:unkType of Exam?:InitialAdditional signs and symptoms?:n/a BASIC METABOLIC PANELon 01-12 Anion gap [Moles/Vol] 14 mmol/L Normal 10-20 [facility] Comment on above: Order Comment: [facility] has implemented the eGFR calculation approach that does not have a coefficient for race that conforms to the NKF-ASN Task Force Recommendations. Performed By: #### 4 6124 ####[facility] [address] [address] Wojciech Oneal M.D. [id number] Calcium [Mass/Vol] 7.8 mg/dL Low 8.4-10.2 [facility] Comment on above: Order Comment: [facility] has implemented the eGFR calculation approach that does not have a coefficient for race that conforms to the NKF-ASN Task Force Recommendations. Performed By: #### 4 6124 ####[facility] [address], [place] [address] Wojciech Oneal M.D. [id number] Chloride [Moles/Vol] 107 mmol/L Normal 98-108 [facility] Comment on above: Order Comment: [facility] has implemented the eGFR calculation approach that does not have a coefficient for race that conforms to the NKF-ASN Task Force Recommendations. Performed By: #### 4 6124 ####[facility] [address] [address] Wojciech Oneal M.D. [id number] Creatinine [Mass/Vol] 0.94 mg/dL Normal 0.80-1.30 [facility] Comment on above: Order Comment: [facility] has implemented the eGFR calculation approach that does not have a coefficient for race that conforms to the NKF-ASN Task Force Recommendations. Performed By: #### 4 6124 ####[facility] [address] [id number] Wojciech Oneal M.D. [id number] EGFR 87 mL/min/1.73 m2 Normal >=60 [facility] Comment on above: Order Comment: [facility] has implemented the eGFR calculation approach that does not have a coefficient for race that conforms to the NKF-ASN Task Force Recommendations. Result Comment: Chelsea mated GFR was calculated using the 2020 CKD-EPI creatinine equation. Performed By: #### 4 6124 ####[facility] [address] [address] Wojciech Oneal M.D. [id number] Glucose [Mass/Vol] 105 mg/dL High 65-99 [facility] Comment on above: Order Comment: [facility] has implemented the eGFR calculation approach that does not have a coefficient for race that conforms to the NKF-ASN Task Force Recommendations. Performed By: #### 4 6124 ####[facility] [address], [place] [address] Wojciech Oneal M.D. [id number] HCO3 (Bld) [Moles/Vol] 23 mmol/L Normal 21-32 [facility] Comment on above: Order Comment: [facility] has implemented the eGFR calculation approach that does not have a coefficient for race that conforms to the NKF-ASN Task Force Recommendations. Performed By: #### 4 6124 ####[facility] [address] [address] Wojciech Oneal M.D. [id number] Potassium [Moles/Vol] 4.0 mmol/L Normal 3.5-5.1 [facility] Comment on above: Order Comment: [facility] has implemented the eGFR calculation approach that does not have a coefficient for race that conforms to the NKF-ASN Task Force Recommendations. Performed By: #### 4 6124 ####[facility] [address] [address] Wojciech Oneal M.D. [id number] Sodium [Moles/Vol] 140 mmol/L Normal 135-145 [facility] Comment on above: Order Comment: [facility] has implemented the eGFR calculation approach that does not have a coefficient for race that conforms to the NKF-ASN Task Force Recommendations. Performed By: #### 4 6124 ####[facility] [address] [address] Wojciech Oneal M.D. [id number] Urea nitrogen [Mass/Vol] 19 mg/dL Normal 8-25 [facility] Comment on above: Order Comment: [facility] has implemented the eGFR calculation approach that does not have a coefficient for race that conforms to the NKF-ASN Task Force Recommendations. Performed By: #### 4 6124 ####[facility] [address] [address] Wojciech Oneal M.D. [id number] Urea nitrogen/Creatinine [Mass ratio] 20.2 mg/mg High 10.0-20.0 [facility] Comment on above: Order Comment: [facility] has implemented the eGFR calculation approach that does not have a coefficient for race that conforms to the NKF-ASN Task Force Recommendations. Performed By: #### 4 6124 ####[facility] [address] [address] Wojciech Oneal M.D. [id number] CALCIUM, IONIZEDon 09-16-202 5 CALCIUM IONIZED 4.5 mg/dL Normal 4.5-5.3 [facility] Comment on above: Performed By: #### 4 5190 ####[facility] [address] [address] Wojciech Oneal M.D. [id number] CBCon 01-27-2025 AUTO NRBC 0.1 % Normal [facility] Comment on above: Performed By: #### 4 [id number] ####[facility] [address] [address] Wojciech Oneal M.D. [id number] AUTO NRBC ABS COUNT 0.02 K/mcL High 0.00-0.00 [facility] Comment on above: Performed By: #### 4 [id number] ####[facility] [address] [address] Wojciech Oneal M.D. [id number] Erythrocyte distribution width (RBC) [Ratio] 14.0 % Normal 11.6-14.8 [facility] Comment on above: Performed By: #### 4 [id number] ####[facility] [address] [address] Wojciech Oneal M.D. [id number] Hematocrit (Bld) [Volume fraction] 27.8 % Low 41.0-53.0 [facility] Comment on above: Performed By: #### 4 [id number] ####[facility] [address] [address] Wojciech Oneal M.D. [id number] Hemoglobin (Bld) [Mass/Vol] 8.8 g/dL Low 13.5-17.5 [facility] Comment on above: Performed By: #### 4 [id number] ####[facility] [address] [address] Wojciech Oneal M.D. [id number] MCH (RBC) [Entitic mass] 29.3 pg Normal 26.0-34.0 [facility] Comment on above: Performed By: #### 4 [id number] ####[facility] [address] [address] Wojciech Oneal M.D. [id number] MCV (RBC) [Entitic vol] 92.7 fL Normal 80.0-100.0 [facility] Comment on above: Performed By: #### 4 [id number] ####[facility] [address] [address] Wojciech Oneal M.D. [id number] MEAN CORPUSCULAR HEMOGLOBIN CONC 31.7 g/dL Normal 31.0-37.0 [facility] Comment on above: Performed By: #### 4 [id number] ####[facility] [address] [address] Wojciech Oneal M.D. [id number] Platelet mean volume (Bld) [Entitic vol] 9.0 fL Low 9.4-12.4 [facility] Comment on above: Performed By: #### 4 [id number] ####[facility] [address] [address] Wojciech Oneal M.D. [id number] Platelets (Bld) [#/Vol] 317 10*3/uL Normal 150-400 [facility] Comment on above: Performed By: #### 4 [id number] ####[facility] [address] [address] Wojciech Oneal M.D. [id number] RBC (Bld) [#/Vol] 3.00 10*6/uL Low 4.50-5.90 [facility] Comment on above: Performed By: #### 4 [id number] ####[facility] [address] [address] Wojciech Oneal M.D. [id number] WBC (Bld) [#/Vol] 20.82 10*3/uL High 4.50-11.00 [facility] Comment on above: Performed By: #### 4 [id number] ####[facility] [address] [address] Wojciech Oneal M.D. [id number] CONSULTon 01-27-2025 CONSULT [facility] MAGNESIUM LEVELon 01-27-2025 Magnesium [Mass/Vol] 2.2 mg/dL Normal 1.6-2.4 [facility] Comment on above: Performed By: #### 4 6109 ####[facility] [address] [address] Wojciech Oneal M.D. [id number] PHOSPHORUSon 01-27-2025 Phosphate [Mass/Vol] 2.3 mg/dL Normal 2.3-3.7 [facility] Comment on above: Performed By: #### 4 6299 ####[facility] [address] [address] Wojciech Oneal M.D. [id number] POC GLUCOSE - [facility] 025 Glucose [Mass/Vol] 86 mg/dL Normal [address] [place] [address] Comment on above: Performed By: #### 4 6932 ####[facility] [address] [address] [id number] GMCPOC Glucose [Mass/Vol] 100 mg/dL [address] Comment on above: Performed By: #### 4 6932 ####[facility] [address] [place] [address] [id number] GMCPOC Glucose [Mass/Vol] 97 mg/dL Normal [address] [place] [address] Comment on above: Performed By: #### 4 6932 ####[facility] [address] [place] [address] [id number] GMCPOC Glucose [Mass/Vol] 111 mg/dL High [address] [place] [address] Comment on above: Performed By: #### 4 6932 ####[facility] [address] [address] [id number] GMCPOC Glucose [Mass/Vol] 98 mg/dL Normal [address] [place] [address] Comment on above: Performed By: #### 4 6932 ####[facility] [address] [address] [id number] GMCPOC XR ABDOMEN /KUB/FLAT PLATE/1 VIEWon 01-27-2025 XR ABDOMEN /KUB/FLAT PLATE/1 VIEW [facility] Comment on above: Order Comment: Injur y/Trauma or Illness?:Illness/OtherHow long have you had these symptoms (acute/chronic)?:AcuteReason for exam?:Abdominal distentionHistory of cancer?:unkSurgeries, chemotherapy, or radiation?:unkType of Exam?:InitialAdditional signs and symptoms?:Abdominal distention BASIC METABOLIC PANELon 01-12 Anion gap [Moles/Vol] 14 mmol/L Normal 10-20 [facility] Comment on above: Order Comment: [facility] has implemented the eGFR calculation approach that does not have a coefficient for race that conforms to the NKF-ASN Task Force Recommendations. Performed By: #### 4 6124 ####[facility] [address] [address] Wojciech Oneal M.D. [id number] Calcium [Mass/Vol] 7.6 mg/dL Low 8.4-10.2 [facility] Comment on above: Order Comment: [facility] has implemented the eGFR calculation approach that does not have a coefficient for race that conforms to the NKF-ASN Task Force Recommendations. Performed By: #### 4 6124 ####[facility] [address] [address] Wojciech Oneal M.D. [id number] Chloride [Moles/Vol] 108 mmol/L Normal 98-108 [facility] Comment on above: Order Comment: [facility] has implemented the eGFR calculation approach that does not have a coefficient for race that conforms to the NKF-ASN Task Force Recommendations. Performed By: #### 4 6124 ####[facility] [address] [address] Wojciech Oneal M.D. [id number] Creatinine [Mass/Vol] 1.03 mg/dL Normal 0.80-1.30 [facility] Comment on above: Order Comment: [facility] has implemented the eGFR calculation approach that does not have a coefficient for race that conforms to the NKF-ASN Task Force Recommendations. Performed By: #### 4 6124 ####[facility] [address] [address] Wojciech Oneal M.D. [id number] EGFR 78 mL/min/1.73 m2 Normal >=60 [facility] Comment on above: Order Comment: [facility] has implemented the eGFR calculation approach that does not have a coefficient for race that conforms to the NKF-ASN Task Force Recommendations. Result Comment: Chelsea mated GFR was calculated using the 2020 CKD-EPI creatinine equation. Performed By: #### 4 6124 ####[facility] [address] [address] Wojciech Oneal M.D. [id number] Glucose [Mass/Vol] 113 mg/dL High 65-99 [facility] Comment on above: Order Comment: [facility] has implemented the eGFR calculation approach that does not have a coefficient for race that conforms to the NKF-ASN Task Force Recommendations. Performed By: #### 4 6124 ####[facility] [address] [address] Wojciech Oneal M.D. [id number] HCO3 (Bld) [Moles/Vol] 23 mmol/L Normal 21-32 [facility] Comment on above: Order Comment: [facility] has implemented the eGFR calculation approach that does not have a coefficient for race that conforms to the NKF-ASN Task Force Recommendations. Performed By: #### 4 6124 ####[facility] [address] [address] Wojciech Oneal M.D. [id number] Potassium [Moles/Vol] 4.1 mmol/L Normal 3.5-5.1 [facility] Comment on above: Order Comment: [facility] has implemented the eGFR calculation approach that does not have a coefficient for race that conforms to the NKF-ASN Task Force Recommendations. Performed By: #### 4 6124 ####[facility] [address] [address] Wojciech Oneal M.D. [id number] Sodium [Moles/Vol] 141 mmol/L Normal 135-145 [facility] Comment on above: Order Comment: [facility] has implemented the eGFR calculation approach that does not have a coefficient for race that conforms to the NKF-ASN Task Force Recommendations. Performed By: #### 4 6124 ####[facility] [address] [address] Wojciech Oneal M.D. [id number] Urea nitrogen [Mass/Vol] 25 mg/dL Normal 8-25 [facility] Comment on above: Order Comment: [facility] has implemented the eGFR calculation approach that does not have a coefficient for race that conforms to the NKF-ASN Task Force Recommendations. Performed By: #### 4 6124 ####[facility] [address] [address] Wojciech Oneal M.D. [id number] Urea nitrogen/Creatinine [Mass ratio] 24.3 mg/mg High 10.0-20.0 [facility] Comment on above: Order Comment: [facility] has implemented the eGFR calculation approach that does not have a coefficient for race that conforms to the NKF-ASN Task Force Recommendations. Performed By: #### 4 6124 ####[facility] [address] [address] Wojciceh Oneal M.D. [id number] CALCIUM, IONIZEDon CALCIUM IONIZED 4.4 mg/dL Low 4.5-5.3 [facility] Comment on above: Performed By: #### 4 5190 ####[facility] [address] [address] Wojciech Oneal M.D. [id number] CBCon 01-26-2025 AUTO NRBC 0.0 % Normal [facility] Comment on above: Performed By: #### 4 [id number] ####[facility] [address] [address] Wojciech Oneal M.D. [id number] AUTO NRBC ABS COUNT 0.00 K/mcL Normal 0.00-0.00 [facility] Comment on above: Performed By: #### 4 [id number] ####[facility] [address] [address] Wojciech Oneal M.D. [id number] Erythrocyte distribution width (RBC) [Ratio] 13.6 % Normal 11.6-14.8 [facility] Comment on above: Performed By: #### 4 [id number] ####[facility] [address] [address] Wojciech Oneal M.D. [id number] Hematocrit (Bld) [Volume fraction] 25.3 % Low 41.0-53.0 [facility] Comment on above: Performed By: #### 4 [id number] ####[facility] [address] [address] Wojciech Oneal M.D. [id number] Hemoglobin (Bld) [Mass/Vol] 8.1 g/dL Low 13.5-17.5 [facility] Comment on above: Performed By: #### 4 [id number] ####[facility] [address] [address] Wojciech Oneal M.D. [id number] MCH (RBC) [Entitic mass] 29.5 pg Normal 26.0-34.0 [facility] Comment on above: Performed By: #### 4 [id number] ####[facility] [address] [address] Wojciech Oneal M.D. [id number] MCV (RBC) [Entitic vol] 92.0 fL Normal 80.0-100.0 [facility] Comment on above: Performed By: #### 4 [id number] ####[facility] [address] [address] Wojciech Oneal M.D. [id number] MEAN CORPUSCULAR HEMOGLOBIN CONC 32.0 g/dL Normal 31.0-37.0 [facility] Comment on above: Performed By: #### 4 5218 ####[facility] [address] [address] Wojciech Oneal M.D. [id number] Platelet mean volume (Bld) [Entitic vol] 9.0 fL Low 9.4-12.4 [facility] Comment on above: Performed By: #### 4 [id number] ####[facility] [address] [address] Wojciech Oneal M.D. [id number] Platelets (Bld) [#/Vol] 285 10*3/uL Normal 150-400 [facility] Comment on above: Performed By: #### 4 [id number] ####[facility] [address] [address] Wojciech Oneal M.D. [id number] RBC (Bld) [#/Vol] 2.75 10*6/uL Low 4.50-5.90 [facility] Comment on above: Performed By: #### 4 [id number] ####[facility] [address] [address] Wojciech Oneal M.D. [id number] WBC (Bld) [#/Vol] 21.63 10*3/uL High 4.50-11.00 [facility] Comment on above: Performed By: #### 4 5218 ####[facility] [address] [address] Wojciech Oneal M.D. [id number] MAGNESIUM LEVELon 01-26-2025 Magnesium [Mass/Vol] 2.4 mg/dL Normal 1.6-2.4 [facility] Comment on above: Performed By: #### 4 6109 ####[facility] [address] [address] Wojciech Oneal M.D. [id number] PHOSPHORUSon 01-26-2025 Phosphate [Mass/Vol] 3.0 mg/dL Normal 2.3-3.7 [facility] Comment on above: Performed By: #### 4 6299 ####[facility] [address] [address] Wojciech Oneal M.D. [id number] POC GLUCOSE - [facility] 025 Glucose [Mass/Vol] 118 mg/dL High [address] [place] [address] Comment on above: Performed By: #### 4 6932 ####[facility] [address] [address] [id number] GMCPOC Glucose [Mass/Vol] 111 mg/dL [address] Comment on above: Performed By: #### 4 6932 ####[facility] [address] [address] [id number] GMCPOC Glucose [Mass/Vol] 104 mg/dL High [address] [place] [address] Comment on above: Performed By: #### 4 6932 ####[facility] [address] [address] [id number] GMCPOC Glucose [Mass/Vol] 93 mg/dL Normal [address] [place] [address] Comment on above: Performed By: #### 4 6932 ####[facility] [address] [address] [id number] GMCPOC Glucose [Mass/Vol] 93 mg/dL Normal 65-99 [facility] Comment on above: Performed By: #### 4 6932 ####[facility] [address] [address] [id number] [facility] BASIC METABOLIC PANELon 01-12 Anion gap [Moles/Vol] 13 mmol/L Normal 10-20 [facility] Comment on above: Order Comment: [facility] has implemented the eGFR calculation approach that does not have a coefficient for race that conforms to the NKF-ASN Task Force Recommendations. Performed By: #### 4 6124 ####[facility] [address] [address] Wojciech Oneal M.D. [id number] Calcium [Mass/Vol] 6.8 mg/dL Low 8.4-10.2 [facility] Comment on above: Order Comment: [facility] has implemented the eGFR calculation approach that does not have a coefficient for race that conforms to the NKF-ASN Task Force Recommendations. Performed By: #### 4 6124 ####[facility] [address] [address] Wojciech Oneal M.D. [id number] Chloride [Moles/Vol] 102 mmol/L Normal 98-108 [facility] Comment on above: Order Comment: [facility] has implemented the eGFR calculation approach that does not have a coefficient for race that conforms to the NKF-ASN Task Force Recommendations. Performed By: #### 4 6124 ####[facility] [address] [address] Wojciech Oneal M.D. [id number] Creatinine [Mass/Vol] 1.18 mg/dL Normal 0.80-1.30 [facility] Comment on above: Order Comment: [facility] has implemented the eGFR calculation approach that does not have a coefficient for race that conforms to the NKF-ASN Task Force Recommendations. Performed By: #### 4 6124 ####[facility] [address] [address] Wojciech Oneal M.D. [id number] EGFR 66 mL/min/1.73 m2 Normal >=60 [facility] Comment on above: Order Comment: [facility] has implemented the eGFR calculation approach that does not have a coefficient for race that conforms to the NKF-ASN Task Force Recommendations. Result Comment: Chelsea mated GFR was calculated using the 2020 CKD-EPI creatinine equation. Performed By: #### 4 6124 ####[facility] [address] [address] Wojciech Oneal M.D. [id number] Glucose [Mass/Vol] 100 mg/dL High 65-99 [facility] Comment on above: Order Comment: [facility] has implemented the eGFR calculation approach that does not have a coefficient for race that conforms to the NKF-ASN Task Force Recommendations. Performed By: #### 4 6124 ####[facility] [address] [address] Wojciech Oneal M.D. [id number] HCO3 (Bld) [Moles/Vol] 23 mmol/L Normal 21-32 [facility] Comment on above: Order Comment: [facility] has implemented the eGFR calculation approach that does not have a coefficient for race that conforms to the NKF-ASN Task Force Recommendations. Performed By: #### 4 6124 ####[facility] [address] [address] Wojciech Oneal M.D. [id number] Potassium [Moles/Vol] 3.8 mmol/L Normal 3.5-5.1 [facility] Comment on above: Order Comment: [facility] has implemented the eGFR calculation approach that does not have a coefficient for race that conforms to the NKF-ASN Task Force Recommendations. Performed By: #### 4 6124 ####[facility] [address] [address] Wojciech Oneal M.D. [id number] Sodium [Moles/Vol] 134 mmol/L Low 135-145 [facility] Comment on above: Order Comment: [facility] has implemented the eGFR calculation approach that does not have a coefficient for race that conforms to the NKF-ASN Task Force Recommendations. Performed By: #### 4 6145 ####[facility] [address] [id number] Wojciech Oneal M.D. [id number] Urea nitrogen [Mass/Vol] 37 mg/dL High 8-25 [facility] Comment on above: Order Comment: [facility] [facility] has implemented the eGFR calculation approach that does not have a coefficient for race that conforms to the NKF-ASN Task Force Recommendations. Performed By: #### 4 6124 ####[facility] [address] [address] Wojciech Oneal M.D. [id number] Urea nitrogen/Creatinine [Mass ratio] 31.4 mg/mg High 10.0-20.0 [facility] Comment on above: Order Comment: [facility] has implemented the eGFR calculation approach that does not have a coefficient for race that conforms to the NKF-ASN Task Force Recommendations. Performed By: #### 4 6124 ####[facility] [address] [address] Wojciech Oneal M.D. [id number] CALCIUM, IONIZEDon CALCIUM IONIZED 4.4 mg/dL Low 4.5-5.3 [facility] Comment on above: Performed By: #### 4 5190 ####[facility] [address] [id number] Wojciech Oneal M.D. [id number] CALCIUM IONIZED 4.0 mg/dL Low 4.5-5.3 [facility] Comment on above: Performed By: #### 4 5190 ####[facility] [address] [address] Wojciech Oneal M.D. [id number] CBCon 01-25-2025 AUTO NRBC 0.1 % Normal [facility] Comment on above: Performed By: #### 4 5218 ####[facility] [address] [id number] Wojciech Oneal M.D. [id number] AUTO NRBC ABS COUNT 0.02 K/mcL High 0.00-0.00 [facility] Comment on above: Performed By: #### 4 [id number] ####[facility] [address] [address] Wojciech Oneal M.D. [id number] Erythrocyte distribution width (RBC) [Ratio] 13.2 % Normal 11.6-14.8 [facility] Comment on above: Performed By: #### 4 5218 ####[facility] [address] [address] Wojciech Oneal M.D. [id number] Hematocrit (Bld) [Volume fraction] 24.0 % Low 41.0-53.0 [facility] Comment on above: Performed By: #### 4 5218 ####[facility] [address] [address] Wojciech Oneal M.D. [id number] Hemoglobin (Bld) [Mass/Vol] 7.9 g/dL Low 13.5-17.5 [facility] Comment on above: Performed By: #### 4 5218 ####[facility] [address] [address] Wojciech Oneal M.D. [id number] MCH (RBC) [Entitic mass] 29.8 pg Normal 26.0-34.0 [facility] Comment on above: Performed By: #### 4 5218 ####[facility] [address] [address] Wojciech Oneal M.D. [id number] MCV (RBC) [Entitic vol] 90.6 fL Normal 80.0-100.0 [facility] Comment on above: Performed By: #### 4 5218 ####[facility] [address] [address] Wojciech Oneal M.D. [id number] MEAN CORPUSCULAR HEMOGLOBIN CONC 32.9 g/dL Normal 31.0-37.0 [facility] Comment on above: Performed By: #### 4 5218 ####[facility] [address] [address] Wojciech Oneal M.D. [id number] Platelet mean volume (Bld) [Entitic vol] 9.1 fL Low 9.4-12.4 [facility] Comment on above: Performed By: #### 4 5218 ####[facility] [address] [address] Wojciech Oneal M.D. [id number] Platelets (Bld) [#/Vol] 258 10*3/uL Normal 150-400 [facility] Comment on above: Performed By: #### 4 5218 ####[facility] [address] [id number] Wojciech Oneal M.D. [id number] RBC (Bld) [#/Vol] 2.65 10*6/uL Low 4.50-5.90 [facility] Comment on above: Performed By: #### 4 5218 ####[facility] [address] [address] Wojciech Oneal M.D. [id number] WBC (Bld) [#/Vol] 18.46 10*3/uL High 4.50-11.00 [facility] Comment on above: Performed By: #### 4 5218 ####[facility] [address] [address] Wojciech Oneal M.D. [id number] MAGNESIUM LEVELon 01-25-2025 Magnesium [Mass/Vol] 2.3 mg/dL Normal 1.6-2.4 [facility] Comment on above: Performed By: #### 4 6109 ####[facility] [address] [address] Wojciech Oneal M.D. [id number] Magnesium [Mass/Vol] 1.9 mg/dL Normal 1.6-2.4 [facility] Comment on above: Performed By: #### 4 6109 ####[facility] [address] [address] Wojciech Oneal M.D. [id number] PHOSPHORUSon 01-25-2025 Phosphate [Mass/Vol] 3.3 mg/dL Normal 2.3-3.7 [facility] Comment on above: Performed By: #### 4 6299 ####[facility] [address] [id number] Wojciech Oneal M.D. [id number] POC ARTERIAL BLOOD GAS PANEL -[facility] 01-25-2025 BASE EXCESS, ARTERIAL -1.1 Normal -2.0-2.0 [facility] Comment on above: Performed By: #### 4 8716 ####[facility] [address] [address] [id number] [facility] CALCIUM IONIZED 4.3 mg/dL Low 4.5-5.3 [facility] Comment on above: Performed By: #### 4 8716 ####[facility] [address] [address] [id number] [facility] CARBOXYHEMOGLOBIN 1.6 % of total Hb High <=1.5 [facility] Comment on above: Result Comment: Refe rence Ranges:Suburban Non-smokers: <1.5%Smokers: 1.5-5.0%Heavy Smokers: 5.0-9.0% Performed By: #### 4 8716 ####[facility] [address] [address] [id number] [facility] FIO2 30 Normal [facility] Comment on above: Performed By: #### 4 8716 ####[facility] [address] [address] [id number] [facility] Glucose [Mass/Vol] 105 mg/dL High 65-99 [facility] Comment on above: Performed By: #### 4 8716 ####[facility] [address] [address] [id number] [facility] HCO3 (Bld) [Moles/Vol] 24.2 mmol/L Normal 22.0-26.0 [facility] Comment on above: Performed By: #### 4 8716 ####[facility] [address] [address] [id number] [facility] Hematocrit (Bld) [Volume fraction] 30.0 % Low 41.0-53.0 [facility] Comment on above: Performed By: #### 4 8716 ####[facility] [address] [address] [id number] [facility] Hemoglobin (Bld) [Mass/Vol] 9.7 g/dL Low 13.5-17.5 [facility] Comment on above: Performed By: #### 4 8716 ####[facility] [address] [address] [id number] [facility] LACTIC ACID, WHOLE BLOOD 0.8 mmol/L Normal 0.6-2.0 [facility] Comment on above: Performed By: #### 4 8716 ####[facility] [address] [address] [id number] [facility] METHEMOGLOBIN 1.1 % Normal 0.0-2.0 [facility] Comment on above: Performed By: #### 4 8716 ####[facility] [address] [address] [id number] [facility] O2HB 93.7 % Low 94.0-98.0 [facility] Comment on above: Performed By: #### 4 8716 ####[facility] [address] [address] [id number] [facility] Oxygen saturation in Blood 96.3 % Normal 92.0-99.0 [facility] Comment on above: Performed By: #### 4 8716 ####[facility] [address] [address] [id number] [facility] PCO2 ARTERIAL 45.5 mm Hg High 35.0-45.0 [facility] Comment on above: Performed By: #### 4 8716 ####[facility] [address] [address] [id number] [facility] PEEP RAD 8 Normal [facility] Comment on above: Performed By: #### 4 8716 ####[facility] [address] [address] [id number] [facility] PH ARTERIAL 7.34 Low 7.35-7.45 [facility] Comment on above: Performed By: #### 4 8716 ####[facility] [address] [address] [id number] [facility] PO2 ARTERIAL 83 mm Hg Normal 75-85 [facility] Comment on above: Performed By: #### 4 8716 ####[facility] [address] [address] [id number] [facility] Potassium [Moles/Vol] 4.0 mmol/L Normal 3.5-5.1 [facility] Comment on above: Performed By: #### 4 8716 ####[facility] [address] [address] [id number] [facility] RESP RATE RAD 16 [facility] Comment on above: Performed By: #### 4 8716 ####[facility] [address] [address] [id number] [facility] Sodium [Moles/Vol] 138 mmol/L Normal 135-145 [facility] Comment on above: Performed By: #### 4 8716 ####[facility] [address] [address] [id number] [facility] TIDAL VOLUME RAD 450 [facility] Comment on above: Performed By: #### 4 8716 ####[facility] [address] [address] [id number] [facility] POC GLUCOSE - [facility] 025 Glucose [Mass/Vol] 116 mg/dL [address] Comment on above: Performed By: #### 4 6932 ####[facility] [address] [address] [id number] [facility] Glucose [Mass/Vol] 107 mg/dL [address] Comment on above: Performed By: #### 4 6932 ####[facility] [address] [address] [id number] [facility] Glucose [Mass/Vol] 106 mg/dL [address] Comment on above: Performed By: #### 4 6932 ####[facility] [address] [address] [id number] [facility] Glucose [Mass/Vol] 109 mg/dL [address] Comment on above: Performed By: #### 4 6932 ####[facility] [address] [address] [id number] [facility] Glucose [Mass/Vol] 102 mg/dL [address] Comment on above: Performed By: #### 4 6932 ####[facility] [address] [address] [id number] [facility] POTASSIUM LEVELon 01-25-2025 Potassium [Moles/Vol] 4.2 mmol/L Normal 3.5-5.1 [facility] Comment on above: Performed By: #### 4 6351 ####[facility] [address], [place] [address] Wojciech Oneal M.D. [id number] VANCOMYCIN LEVEL, RANDOMon 0 01-25-2025 VANCOMYCIN RANDOM 11.6 mcg/mL Normal [facility] Comment on above: Order Comment: As of 02/2022 vancomycin dosing for [facility] inpatients will be done by Bayesian dosing software rather than off traditional trough values. Please contact the site specific inpatient pharmacy before making dose changes off of trough values alone for admitted patients.No established reference range. Performed By: #### 4 6651 ####[facility] [address], [place] [address] Wojciech Oneal M.D. [id number] XR CHEST PA/APon 01-25-2025 XR CHEST PA/AP Normal [facility] Comment on above: Order Comment: Injur y/Trauma or Illness?:Illness/OtherHow long have you had these symptoms (acute/chronic)?:UnknownReason for exam?:Respiratory statusHistory of cancer?:unkSurgeries, chemotherapy, or radiation?:unkType of Exam?:InitialAdditional signs and symptoms?:na BASIC METABOLIC PANELon 01-12 Anion gap [Moles/Vol] 16 mmol/L Normal - [facility] Comment on above: Order Comment: [facility] has implemented the eGFR calculation approach that does not have a coefficient for race that conforms to the NKF-ASN Task Force Recommendations. Performed By: #### 4 6124 ####[facility] [address], [place] [address] Wojciech Oneal M.D. [id number] Calcium [Mass/Vol] 6.7 mg/dL Low 8.4-10.2 [facility] Comment on above: Order Comment: [facility] has implemented the eGFR calculation approach that does not have a coefficient for race that conforms to the NKF-ASN Task Force Recommendations. Performed By: #### 4 6124 ####[facility] [address] [id number] Wojciech Oneal M.D. [id number] Chloride [Moles/Vol] 101 mmol/L Normal 98-108 [facility] Comment on above: Order Comment: [facility] has implemented the eGFR calculation approach that does not have a coefficient for race that conforms to the NKF-ASN Task Force Recommendations. Performed By: #### 4 6124 ####[facility] [address] [address] Wojciech Oneal M.D. [id number] Creatinine [Mass/Vol] 1.82 mg/dL High 0.80-1.30 [facility] Comment on above: Order Comment: [facility] has implemented the eGFR calculation approach that does not have a coefficient for race that conforms to the NKF-ASN Task Force Recommendations. Performed By: #### 4 6124 ####[facility] [address] [address] Wojciech Oneal M.D. [id number] EGFR 39 mL/min/1.73 m2 Low >=60 [facility] Comment on above: Order Comment: [facility] has implemented the eGFR calculation approach that does not have a coefficient for race that conforms to the NKF-ASN Task Force Recommendations. Result Comment: Chelsea mated GFR was calculated using the 2020 CKD-EPI creatinine equation. Performed By: #### 4 6124 ####[facility] [address] [address] Wojciech Oneal M.D. [id number] Glucose [Mass/Vol] 127 mg/dL High 65-99 [facility] Comment on above: Order Comment: [facility] has implemented the eGFR calculation approach that does not have a coefficient for race that conforms to the NKF-ASN Task Force Recommendations. Performed By: #### 4 6124 ####[facility] [address], [place] [address] Wojciech Oneal M.D. [id number] HCO3 (Bld) [Moles/Vol] 19 mmol/L Low 21-32 [facility] Comment on above: Order Comment: [facility] has implemented the eGFR calculation approach that does not have a coefficient for race that conforms to the NKF-ASN Task Force Recommendations. Performed By: #### 4 6185 ####[facility] [address], [place] [address] Wojciech Oneal M.D. [id number] Potassium [Moles/Vol] 4.0 mmol/L Normal 3.5-5.1 [facility] Comment on above: Order Comment: [facility] has implemented the eGFR calculation approach that does not have a coefficient for race that conforms to the NKF-ASN Task Force Recommendations. Performed By: #### 4 6124 ####[facility] [address] [address] Wojciech Oneal M.D. [id number] Sodium [Moles/Vol] 132 mmol/L Low 135-145 [facility] Comment on above: Order Comment: [facility] has implemented the eGFR calculation approach that does not have a coefficient for race that conforms to the NKF-ASN Task Force Recommendations. Performed By: #### 4 6124 ####[facility] [address] [address] Wojciech Oneal M.D. [id number] Urea nitrogen [Mass/Vol] 49 mg/dL High 8-25 [facility] Comment on above: Order Comment: [facility] has implemented the eGFR calculation approach that does not have a coefficient for race that conforms to the NKF-ASN Task Force Recommendations. Performed By: #### 4 6124 ####[facility] [address], [place] [address] Wojciech Oneal M.D. [id number] Urea nitrogen/Creatinine [Mass ratio] 26.9 mg/mg High 10.0-20.0 [facility] Comment on above: Order Comment: [facility] has implemented the eGFR calculation approach that does not have a coefficient for race that conforms to the NKF-ASN Task Force Recommendations. Performed By: #### 4 6124 ####[facility] [address], [place] [address] Wojciech Oneal M.D. [id number] CALCIUM, IONIZEDon 5 CALCIUM IONIZED 3.9 mg/dL Low 4.5-5.3 [facility] Comment on above: Performed By: #### 4 5190 ####[facility] [address] [address] Wojciech Oneal M.D. [id number] CBCon 01-24-2025 AUTO NRBC 0.0 % Normal [facility] Comment on above: Performed By: #### 4 5218 ####[facility] [address] [address] Wojciech Oneal M.D. [id number] AUTO NRBC ABS COUNT 0.00 K/mcL Normal 0.00-0.00 [facility] Comment on above: Performed By: #### 4 5218 ####[facility] [address] [address] Wojciech Oneal M.D. [id number] Erythrocyte distribution width (RBC) [Ratio] 13.0 % Normal 11.6-14.8 [facility] Comment on above: Performed By: #### 4 5218 ####[facility] [address] [address] Wojciech Oneal M.D. [id number] Hematocrit (Bld) [Volume fraction] 24.5 % Low 41.0-53.0 [facility] Comment on above: Performed By: #### 4 5218 ####[place] [address] [address] Wojciech Oneal M.D. [id number] Hemoglobin (Bld) [Mass/Vol] 8.0 g/dL Low 13.5-17.5 [facility] Comment on above: Performed By: #### 4 5218 ####[facility] [address] [address] Wojciech Oneal M.D. [id number] MCH (RBC) [Entitic mass] 29.7 pg Normal 26.0-34.0 [facility] Comment on above: Performed By: #### 4 5218 ####[facility] [address] [address] Wojciech Oneal M.D. [id number] MCV (RBC) [Entitic vol] 91.1 fL Normal 80.0-100.0 [facility] Comment on above: Performed By: #### 4 5218 ####[facility] [address] [address] Wojciech Oneal M.D. [id number] MEAN CORPUSCULAR HEMOGLOBIN CONC 32.7 g/dL Normal 31.0-37.0 [facility] Comment on above: Performed By: #### 4 5218 ####[facility] [address], [place] [address] Wojciech Oneal M.D. [id number] Platelet mean volume (Bld) [Entitic vol] 9.3 fL Low 9.4-12.4 [facility] Comment on above: Performed By: #### 4 5218 ####[facility] [address] [address] Wojciech Oneal M.D. [id number] Platelets (Bld) [#/Vol] 258 10*3/uL Normal 150-400 [facility] Comment on above: Performed By: #### 4 5218 ####[facility] [address] [address] Wojciech Oneal M.D. [id number] RBC (Bld) [#/Vol] 2.69 10*6/uL Low 4.50-5.90 [facility] Comment on above: Performed By: #### 4 5218 ####[facility] [address] [address] Wojciech Oneal M.D. [id number] WBC (Bld) [#/Vol] 21.11 10*3/uL High 4.50-11.00 [facility] Comment on above: Performed By: #### 4 5218 ####[facility] [address] [address] Wojciech Oneal M.D. [id number] CONSULTon 01-24-2025 CONSULT [facility] Culture, Blood (WB)on 2024 CUB Blood cultures x2, from two different sites GRAM STAIN= GRAM NEGATIVE RODS Culture, Blood (WB) RESULTS CALLED/PRINTED TO [facility] 01/22/25 [address]. [facility] Culture, Blood (WB) Culture, Blood (WB) [...] TMP SMX Islt TAMMY <=20 S Normal [facility] Comment on above: Performed By: #### L 509.7001, L100.0100, L503.6005, L503.7505, L501.3620, L500.2500, L501.5200, L500.3400 #### [facility] [address] [place], [address] ECHOCARDIOGRAM COMPLETE W CO NTRASTon 01-24-2025 ECHOCARDIOGRAM COMPLETE W CONTRAST Normal [facility] MAGNESIUM LEVELon 01-24-2025 Magnesium [Mass/Vol] 2.0 mg/dL Normal 1.6-2.4 [facility] Comment on above: Performed By: #### 4 6109 ####[facility] [address], [place] [address] Wojciech Oneal M.D. [id number] PHOSPHORUSon 01-24-2025 Phosphate [Mass/Vol] 4.7 mg/dL High 2.3-3.7 [facility] Comment on above: Performed By: #### 4 6299 ####[facility] [address], [place] [address] Wojciech Oneal M.D. [id number] POC ARTERIAL BLOOD GAS PANEL -[facility] 01-24-2025 BASE EXCESS, ARTERIAL -2.8 Low -2.0-2.0 [facility] Comment on above: Performed By: #### 4 8716 ####[facility] [address] [address] [id number] [facility] CALCIUM IONIZED 4.0 mg/dL Low 4.5-5.3 [facility] Comment on above: Performed By: #### 4 8716 ####[facility] [address] [address] [id number] [facility] CARBOXYHEMOGLOBIN 1.3 % of total Hb Normal <=1.5 [facility] Comment on above: Result Comment: Refe rence Ranges:Suburban Non-smokers: <1.5%Smokers: 1.5-5.0%Heavy Smokers: 5.0-9.0% Performed By: #### 4 8716 ####[facility] [address] [address] [id number] [facility] Chloride [Moles/Vol] 103 mmol/L Normal 98-108 [facility] Comment on above: Performed By: #### 4 8716 ####[facility] [address] [address] [id number] [facility] FIO2 30 Normal [facility] Comment on above: Performed By: #### 4 8716 ####[facility] [address] [address] [id number] [facility] Glucose [Mass/Vol] 109 mg/dL High 65-99 [facility] Comment on above: Performed By: #### 4 8716 ####[facility] [address] [address] [id number] [facility] HCO3 (Bld) [Moles/Vol] 23.3 mmol/L Normal 22.0-26.0 [facility] Comment on above: Performed By: #### 4 8716 ####[facility] [address] [address] [id number] [facility] Hematocrit (Bld) [Volume fraction] 25.3 % Low 41.0-53.0 [facility] Comment on above: Performed By: #### 4 8716 ####[facility] [address] [address] [id number] [facility] Hemoglobin (Bld) [Mass/Vol] 8.3 g/dL Low 13.5-17.5 [facility] Comment on above: Performed By: #### 4 8716 ####[facility] [address] [address] [id number] [facility] LACTIC ACID, WHOLE BLOOD 0.8 mmol/L Normal 0.6-2.0 [facility] Comment on above: Performed By: #### 4 8716 ####[facility] [address] [address] [id number] [facility] METHEMOGLOBIN < Normal 0.0-2.0 [facility] Comment on above: Performed By: #### 4 8716 ####[facility] [address] [address] [id number] [facility] O2HB 92.2 % Low 94.0-98.0 [facility] Comment on above: Performed By: #### 4 8716 ####[facility] [address] [address] [id number] [facility] Oxygen saturation in Blood 93.5 % Normal 92.0-99.0 [facility] Comment on above: Performed By: #### 4 8716 ####[facility] [address] [address] [id number] [facility] PCO2 ARTERIAL 45.2 mm Hg High 35.0-45.0 [facility] Comment on above: Performed By: #### 4 8716 ####[facility] [address] [address] [id number] [facility] PEEP RAD 8 Normal [facility] Comment on above: Performed By: #### 4 8716 ####[facility] [address] [address] [id number] [facility] PH ARTERIAL 7.32 Low 7.35-7.45 [facility] Comment on above: Performed By: #### 4 8716 ####[facility] [address] [address] [id number] [facility] PO2 ARTERIAL 70 mm Hg Low 75-85 [facility] Comment on above: Performed By: #### 4 8716 ####[facility] [address] [address] [id number] [facility] Potassium [Moles/Vol] 3.7 mmol/L Normal 3.5-5.1 [facility] Comment on above: Performed By: #### 4 8716 ####[facility] [address] [address] [id number] [facility] RESP RATE RAD 16 [facility] Comment on above: Performed By: #### 4 8716 ####[facility] [address] [address] [id number] [facility] RESULT NOTIFICATION RESULTS GIVEN TO:[id number] [facility] Comment on above: Performed By: #### 4 8716 ####[facility] [address] [address] [id number] [facility] Sodium [Moles/Vol] 133 mmol/L Low 135-145 [facility] Comment on above: Performed By: #### 4 8716 ####[facility] [address] [address] [id number] [facility] TIDAL VOLUME RAD 450 [facility] Comment on above: Performed By: #### 4 8716 ####[facility] [address] [address] [id number] [facility] POC GLUCOSE [facility] 025 Glucose [Mass/Vol] 104 mg/dL [address] Comment on above: Performed By: #### 4 6932 ####[facility] [address] [address] [id number] [facility] Glucose [Mass/Vol] 106 mg/dL [address] Comment on above: Performed By: #### 4 6932 ####[facility] [address] [address] [id number] [facility] Glucose [Mass/Vol] 92 mg/dL [address] Comment on above: Performed By: #### 4 6932 ####[facility] [address] [address] [id number] [facility] Glucose [Mass/Vol] 95 mg/dL Normal -[address] [place] [address] Comment on above: Performed By: #### 4 6932 ####[facility] [address] [address] [id number] [facility] Glucose [Mass/Vol] 107 mg/dL High [address] [place] [address] Comment on above: Performed By: #### 4 6932 ####[facility] [address] [address] [id number] [facility] Glucose [Mass/Vol] 127 mg/dL High [address] [place] [address] Comment on above: Performed By: #### 4 6932 ####[facility] [address] [address] [id number] [facility] VANCOMYCIN LEVEL, RANDOMon 0 01-24-2025 VANCOMYCIN RANDOM 20.6 mcg/mL Normal [facility] Comment on above: Order Comment: As of 02/2022 vancomycin dosing for [facility] inpatients will be done by Bayesian dosing software rather than off traditional trough values. Please contact the site specific inpatient pharmacy before making dose changes off of trough values alone for admitted patients.No established reference range. Performed By: #### 4 6651 ####[facility] [address] [id number] Wojciech Oneal M.D. [id number] XR CHEST PA/APon 01-24-2025 XR CHEST PA/AP Normal [facility] Comment on above: Order Comment: Injur y/Trauma or Illness?:Illness/OtherHow long have you had these symptoms (acute/chronic)?:AcuteReason for exam?:Respiratory statusHistory of cancer?:unkSurgeries, chemotherapy, or radiation?:unkType of Exam?:InitialAdditional signs and symptoms?:Respiratory status BASIC METABOLIC PANELon 01-12 Anion gap [Moles/Vol] 16 mmol/L Normal - [facility] Comment on above: Order Comment: [facility] has implemented the eGFR calculation approach that does not have a coefficient for race that conforms to the NKF-ASN Task Force Recommendations. Performed By: #### 4 6124 ####[facility] [address] [id number] Wojciech Oneal M.D. [id number] Calcium [Mass/Vol] 6.9 mg/dL Low 8.4-10.2 [facility] Comment on above: Order Comment: [facility] has implemented the eGFR calculation approach that does not have a coefficient for race that conforms to the NKF-ASN Task Force Recommendations. Performed By: #### 4 6124 ####[facility] [address] [id number] Wojciech Oneal M.D. [id number] Chloride [Moles/Vol] 100 mmol/L Normal 98-108 [facility] Comment on above: Order Comment: [facility] has implemented the eGFR calculation approach that does not have a coefficient for race that conforms to the NKF-ASN Task Force Recommendations. Performed By: #### 4 6124 ####[facility] [address] [address] Wojciech Oneal M.D. [id number] Creatinine [Mass/Vol] 2.68 mg/dL High 0.80-1.30 [facility] Comment on above: Order Comment: [facility] has implemented the eGFR calculation approach that does not have a coefficient for race that conforms to the NKF-ASN Task Force Recommendations. Performed By: #### 4 6124 ####[facility] [address] [id number] Wojciech Oneal M.D. [id number] EGFR 25 mL/min/1.73 m2 Low >=60 [facility] Comment on above: Order Comment: [facility] has implemented the eGFR calculation approach that does not have a coefficient for race that conforms to the NKF-ASN Task Force Recommendations. Result Comment: Chelsea mated GFR was calculated using the 2020 CKD-EPI creatinine equation. Performed By: #### 4 6124 ####[facility] [address] [address] Wojciech Oneal M.D. [id number] Glucose [Mass/Vol] 134 mg/dL High 65-99 [facility] Comment on above: Order Comment: [facility] has implemented the eGFR calculation approach that does not have a coefficient for race that conforms to the NKF-ASN Task Force Recommendations. Performed By: #### 4 6124 ####[facility] [address], [place] [address] Wojciech Oneal M.D. [id number] HCO3 (Bld) [Moles/Vol] 19 mmol/L Low 21-32 [facility] Comment on above: Order Comment: [facility] has implemented the eGFR calculation approach that does not have a coefficient for race that conforms to the NKF-ASN Task Force Recommendations. Performed By: #### 4 6124 ####[facility] [address] [address] Wojciech Oneal M.D. [id number] Potassium [Moles/Vol] 4.2 mmol/L Normal 3.5-5.1 [facility] Comment on above: Order Comment: [facility] has implemented the eGFR calculation approach that does not have a coefficient for race that conforms to the NKF-ASN Task Force Recommendations. Performed By: #### 4 6124 ####[facility] [address] [address] Wojciech Oneal M.D. [id number] Sodium [Moles/Vol] 131 mmol/L Low 135-145 [facility] Comment on above: Order Comment: [facility] has implemented the eGFR calculation approach that does not have a coefficient for race that conforms to the NKF-ASN Task Force Recommendations. Performed By: #### 4 6124 ####[facility] [address] [address] Wojciech Oneal M.D. [id number] Urea nitrogen [Mass/Vol] 62 mg/dL High 8-25 [facility] Comment on above: Order Comment: [facility] has implemented the eGFR calculation approach that does not have a coefficient for race that conforms to the NKF-ASN Task Force Recommendations. Performed By: #### 4 6124 ####[facility] [address] [address] Wojciech Oneal M.D. [id number] Urea nitrogen/Creatinine [Mass ratio] 23.1 mg/mg High 10.0-20.0 [facility] Comment on above: Order Comment: [facility] has implemented the eGFR calculation approach that does not have a coefficient for race that conforms to the NKF-ASN Task Force Recommendations. Performed By: #### 4 6124 ####[facility] [address] [address] Wojciech Oneal M.D. [id number] CALCIUM, IONIZEDon 5 CALCIUM IONIZED 4.1 mg/dL Low 4.5-5.3 [facility] Comment on above: Performed By: #### 4 5190 ####[facility] [address] [address] Wojciech Oneal M.D. [id number] CBCon 01-23-2025 AUTO NRBC 0.1 % Normal [facility] Comment on above: Performed By: #### 4 5218 ####[facility] [address] [address] Wojciech Oneal M.D. [id number] AUTO NRBC ABS COUNT 0.02 K/mcL High 0.00-0.00 [facility] Comment on above: Performed By: #### 4 5218 ####[facility] [address] [address] Wojciech Oneal M.D. [id number] Erythrocyte distribution width (RBC) [Ratio] 12.7 % Normal 11.6-14.8 [facility] Comment on above: Performed By: #### 4 5218 ####[facility] [address] [address] Wojciech Oneal M.D. [id number] Hematocrit (Bld) [Volume fraction] 28.8 % Low 41.0-53.0 [facility] Comment on above: Performed By: #### 4 5218 ####[facility] [address] [address] Wojciech Oneal M.D. [id number] Hemoglobin (Bld) [Mass/Vol] 9.6 g/dL Low 13.5-17.5 [facility] Comment on above: Performed By: #### 4 5218 ####[facility] [address] [address] Wojciech Oneal M.D. [id number] MCH (RBC) [Entitic mass] 29.4 pg Normal 26.0-34.0 [facility] Comment on above: Performed By: #### 4 5218 ####[facility] [address] [id number] Wojciech Oneal M.D. [id number] MCV (RBC) [Entitic vol] 88.1 fL Normal 80.0-100.0 [facility] Comment on above: Performed By: #### 4 5218 ####[facility] [address] [address] Wojciech Oneal M.D. [id number] MEAN CORPUSCULAR HEMOGLOBIN CONC 33.3 g/dL Normal 31.0-37.0 [facility] Comment on above: Performed By: #### 4 5218 ####[facility] [address] [address] Wojciech Oneal M.D. [id number] Platelet mean volume (Bld) [Entitic vol] 9.3 fL Low 9.4-12.4 [facility] Comment on above: Performed By: #### 4 [id number] ####[facility] [address] [address] Wojciech Oneal M.D. [id number] Platelets (Bld) [#/Vol] 285 10*3/uL Normal 150-400 [facility] Comment on above: Performed By: #### 4 5218 ####[facility] [address] [address] Wojciech Oneal M.D. [id number] RBC (Bld) [#/Vol] 3.27 10*6/uL Low 4.50-5.90 [facility] Comment on above: Performed By: #### 4 5218 ####[facility] [address] [address] Wojciech Oneal M.D. [id number] WBC (Bld) [#/Vol] 20.92 10*3/uL High 4.50-11.00 [facility] Comment on above: Performed By: #### 4 5218 ####[facility] [address] [id number] Wojciech Oneal M.D. [id number] MAGNESIUM LEVELon 01-23-2025 Magnesium [Mass/Vol] 2.1 mg/dL Normal 1.6-2.4 [facility] Comment on above: Performed By: #### 4 6109 ####[facility] [address] [address] Wojciech Oneal M.D. [id number] OP NOTEon 01-23-2025 OP NOTE Normal [facility] PHOSPHORUSon 01-23-2025 Phosphate [Mass/Vol] 5.2 mg/dL High 2.3-3.7 [facility] Comment on above: Performed By: #### 4 6299 ####[facility] [address] [address] Wojciech Oneal M.D. [id number] POC ARTERIAL BLOOD GAS PANEL [facility] 01-23-2025 BASE EXCESS, ARTERIAL -5.2 Low -2.0-2.0 [facility] Comment on above: Performed By: #### 4 8716 ####[facility] [address] [address] [id number] [facility] CALCIUM IONIZED 4.0 mg/dL Low 4.5-5.3 [facility] Comment on above: Performed By: #### 4 8716 ####[facility] [address] [address] [id number] [facility] CARBOXYHEMOGLOBIN 1.2 % of total Hb Normal <=1.5 [facility] Comment on above: Result Comment: Refe rence Ranges:Suburban Non-smokers: <1.5%Smokers: 1.5-5.0%Heavy Smokers: 5.0-9.0% Performed By: #### 4 8716 ####[facility] [address] [address] [id number] [facility] Chloride [Moles/Vol] 102 mmol/L Normal 98-108 [facility] Comment on above: Performed By: #### 4 8716 ####[facility] [address] [address] [id number] [facility] FIO2 40 [facility] Comment on above: Performed By: #### 4 8716 ####[facility] [address] [id number] [facility] Glucose [Mass/Vol] 128 mg/dL High 65-99 [facility] Comment on above: Performed By: #### 4 8716 ####[facility] [address] [address] [id number] [facility] HCO3 (Bld) [Moles/Vol] 20.5 mmol/L Low 22.0-26.0 [facility] Comment on above: Performed By: #### 4 8716 ####[facility] [address] [address] [id number] [facility] Hematocrit (Bld) [Volume fraction] 30.3 % Low 41.0-53.0 [facility] Comment on above: Performed By: #### 4 8716 ####[facility] [address] [address] [id number] [facility] Hemoglobin (Bld) [Mass/Vol] 9.9 g/dL Low 13.5-17.5 [facility] Comment on above: Performed By: #### 4 8716 ####[facility] [address] [address] [id number] [facility] LACTIC ACID, WHOLE BLOOD 0.8 mmol/L Normal 0.6-2.0 [facility] Comment on above: Performed By: #### 4 8716 ####[facility] [address] [address] [id number] [facility] METHEMOGLOBIN < Normal 0.0-2.0 [facility] Comment on above: Performed By: #### 4 8716 ####[facility] [address] [address] [id number] [facility] O2HB 98.1 % High 94.0-98.0 [facility] Comment on above: Performed By: #### 4 8716 ####[facility] [address] [address] [id number] [facility] Oxygen saturation in Blood 99.5 % High 92.0-99.0 [facility] Comment on above: Performed By: #### 4 8716 ####[facility] [address] [address] [id number] [facility] PCO2 ARTERIAL 40.1 mm Hg Normal 35.0-45.0 [facility] Comment on above: Performed By: #### 4 8716 ####[facility] [address] [address] [id number] [facility] PEEP RAD 8 [facility] Comment on above: Performed By: #### 4 8716 ####[facility] [address] [address] [id number] [facility] PH ARTERIAL 7.32 Low 7.35-7.45 [facility] Comment on above: Performed By: #### 4 8716 ####[facility] [address] [address] [id number] [facility] PO2 ARTERIAL 152 mm Hg High 75-85 [facility] Comment on above: Performed By: #### 4 8716 ####[facility] [address] [address] [id number] [facility] Potassium [Moles/Vol] 3.8 mmol/L Normal 3.5-5.1 [facility] Comment on above: Performed By: #### 4 8716 ####[facility] [address] [address] [id number] [facility] RESP RATE RAD 16 [facility] Comment on above: Performed By: #### 4 8716 ####[facility] [address] [address] [id number] [facility] Sodium [Moles/Vol] 130 mmol/L Low 135-145 [facility] Comment on above: Performed By: #### 4 8716 ####[facility] [address] [address] [id number] [facility] TIDAL VOLUME RAD 450 [facility] Comment on above: Performed By: #### 4 8716 ####[facility] [address] [address] [id number] [facility] POC GLUCOSE - [facility] 025 Glucose [Mass/Vol] 121 mg/dL [facility] 65-99 [facility] Comment on above: Performed By: #### 4 6932 ####[facility] [address] [address] [id number] [facility] Glucose [Mass/Vol] 114 mg/dL [address] Comment on above: Performed By: #### 4 6932 ####[facility] [address] [address] [id number] [facility] Glucose [Mass/Vol] 123 mg/dL [address] Comment on above: Performed By: #### 4 6932 ####[facility] [address] [address] [id number] [facility] Glucose [Mass/Vol] 133 mg/dL [address] Comment on above: Performed By: #### 4 6932 ####[facility] [address] [address] [id number] [facility] Urine Cultureon 01-23-2025 URC Culture exhibits no growth. [facility] Comment on above: Performed By: #### L 509.7001, L100.0100, L503.6005, L503.7505, L501.3620, L500.2500, L501.5200, L500.3400 #### [facility] [address] [place], [address] VANCOMYCIN LEVEL, RANDOMon 0 01-23-2025 VANCOMYCIN RANDOM 11.5 mcg/mL [facility] Comment on above: Order Comment: As of 02/2022 vancomycin dosing for [facility] inpatients will be done by Bayesian dosing software rather than off traditional trough values. Please contact the site specific inpatient pharmacy before making dose changes off of trough values alone for admitted patients.No established reference range. Performed By: #### 4 6651 ####[facility] [address], [place] [address] Wojciech Oneal M.D. [id number] XR CHEST PA/APon 01-23-2025 XR CHEST PA/AP [facility] Comment on above: Order Comment: Injur y/Trauma or Illness?:Illness/OtherHow long have you had these symptoms (acute/chronic)?:AcuteReason for exam?:Respiratory statusHistory of cancer?:unkSurgeries, chemotherapy, or radiation?:unkType of Exam?:InitialAdditional signs and symptoms?:na 12 Lead EKGon 01-22-2025 12 Lead EKG [facility] [address] [place] [address] 12 Lead EKG 01/22/25 0512 MR#: [id number] Acct: [id number] Name: JAK TANNER Rep #: [id number] : 1955 69 From: Austin Ryan MD [...] replaced Atrial fibrillation Confirmed by Austin Ryan ([id number]), scientific publications editor ELVA YIP ([id number]) on 01/27/2025 5:48:47 AM Referred By: CRISTAL Confirmed By: Austin Ryan 01/27/25 0548 Date Austin Ryan MD CC: See Bee DO; [facility] Signed Normal [facility] ABORH VERIFICATIONon 025 ABO and Rh group Nom (Bld) Blood group O Rh(D) positive [facility] Comment on above: Performed By: #### 9 8730 ####[facility] [address] [facility] [address] Radha Kelsey MD [id number] [facility] ABO and Rh group Nom (Bld) ABO/Rh Verification [facility] Comment on above: Result Comment: Theresa ent's ABO/Rh is verified. Performed By: #### 4 8787 ####[facility] [address] [address] Radha Kelsey MD [id number] [facility] Absolute lymphocyte countOrd ered By: See Bee on 01-22-2025 Lymphocytes Auto (Unsp spec) [#/Vol] 0.80 10*3/uL Low 0.83-4.51 [facility] Absolute neutrophil countOrd ered By: See Bee on 01-22-2025 Neutrophils (Bld) [#/Vol] 23.6 10*3/uL High 2.0-7.7 [facility] Anion gap in Serum or Plasma Ordered By: See Bee on 01-22-2025 Anion gap [Moles/Vol] 16 mmol/L High 5-15 [facility] BASIC METABOLIC PANELon 01-12 Anion gap [Moles/Vol] 19 mmol/L Normal 10-20 [facility] Comment on above: Order Comment: [facility] has implemented the eGFR calculation approach that does not have a coefficient for race that conforms to the NKF-ASN Task Force Recommendations. Performed By: #### 4 6124 ####[facility] [address] [address] Wojciech Oneal M.D. [id number] Calcium [Mass/Vol] 7.5 mg/dL Low 8.4-10.2 [facility] Comment on above: Order Comment: [facility] has implemented the eGFR calculation approach that does not have a coefficient for race that conforms to the NKF-ASN Task Force Recommendations. Performed By: #### 4 6124 ####[facility] [address] [address] Wojciech Oneal M.D. [id number] Chloride [Moles/Vol] 97 mmol/L Low 98-108 [facility] Comment on above: Order Comment: [facility] has implemented the eGFR calculation approach that does not have a coefficient for race that conforms to the NKF-ASN Task Force Recommendations. Performed By: #### 4 6124 ####[facility] [address] [address] Wojciech Oneal M.D. [id number] Creatinine [Mass/Vol] 3.62 mg/dL High 0.80-1.30 [facility] Comment on above: Order Comment: [facility] has implemented the eGFR calculation approach that does not have a coefficient for race that conforms to the NKF-ASN Task Force Recommendations. Performed By: #### 4 6124 ####[facility] [address] [address] Wojciech Oneal M.D. [id number] EGFR 17 mL/min/1.73 m2 Low >=60 [facility] Comment on above: Order Comment: [facility] has implemented the eGFR calculation approach that does not have a coefficient for race that conforms to the NKF-ASN Task Force Recommendations. Result Comment: Chelsea mated GFR was calculated using the 2020 CKD-EPI creatinine equation. Performed By: #### 4 6124 ####[facility] [address] [address] Wojciech Oneal M.D. [id number] Glucose [Mass/Vol] 131 mg/dL High 65-99 [facility] Comment on above: Order Comment: [facility] has implemented the eGFR calculation approach that does not have a coefficient for race that conforms to the NKF-ASN Task Force Recommendations. Performed By: #### 4 6124 ####[facility] [address] [address] Wojciech Oneal M.D. [id number] HCO3 (Bld) [Moles/Vol] 18 mmol/L Low 21-32 [facility] Comment on above: Order Comment: [facility] has implemented the eGFR calculation approach that does not have a coefficient for race that conforms to the NKF-ASN Task Force Recommendations. Performed By: #### 4 6124 ####[facility] [address] [address] Wojciech Oneal M.D. [id number] Potassium [Moles/Vol] 4.0 mmol/L Normal 3.5-5.1 [facility] Comment on above: Order Comment: [facility] has implemented the eGFR calculation approach that does not have a coefficient for race that conforms to the NKF-ASN Task Force Recommendations. Performed By: #### 4 6124 ####[facility] [address] [address] Wojciech Oneal M.D. [id number] Sodium [Moles/Vol] 130 mmol/L Low 135-145 [facility] Comment on above: Order Comment: [facility] has implemented the eGFR calculation approach that does not have a coefficient for race that conforms to the NKF-ASN Task Force Recommendations. Performed By: #### 4 6124 ####[facility] [address] [address] Wojciech Oneal M.D. [id number] Urea nitrogen [Mass/Vol] 62 mg/dL High 8-25 [facility] Comment on above: Order Comment: [facility] has implemented the eGFR calculation approach that does not have a coefficient for race that conforms to the NKF-ASN Task Force Recommendations. Performed By: #### 4 6124 ####[facility] [address] [address] Wojciech Oneal M.D. [id number] Urea nitrogen/Creatinine [Mass ratio] 17.1 mg/mg Normal 10.0-20.0 [facility] Comment on above: Order Comment: [facility] has implemented the eGFR calculation approach that does not have a coefficient for race that conforms to the NKF-ASN Task Force Recommendations. Performed By: #### 4 6124 ####[facility] [address] [address] Wojciech Oneal M.D. [id number] BETA-HYDROXYBUTYRATEon 01-22 BETA-HYDROXYBUTYRATE 0.4 mmol/L High 0.0-0.3 [facility] Comment on above: Performed By: #### 4 5139 ####[facility] [address] [address] Wojciech Oneal M.D. [id number] BLOOD CULTURE AEROBIC/ANAERO BICon 01-22-2025 BLOOD CULTURE AEROBIC/ANAEROBIC BLOOD CULTURE No Growth after 5 days Normal [facility] Comment on above: Performed By: #### 4 4014 ####[facility] [address] [address] Tuan Ascencio M.D. [id number] BUN/creatinine ratioOrdered By: See Bee on 01-22-2025 Urea nitrogen/Creatinine [Mass ratio] 16.5 mg/mg - [facility] Basic Metabolic Profile (BMP )on 01-22-2025 BUN/CRE 16.5 RATIO Normal - [facility] Comment on above: Order Comment: REDRA W. PREVIOUS SPECIMEN REJECTED DUE TO RESULTS NOT COMING THROUGH AND SEEM TO BE ERRONEOUS. 01/22/25219 Mora Patel. NOTIFIED DELMY FOR REDRAW Performed By: #### L 509.7001, L100.0100, L503.6005, L503.7505, L501.3620, L500.2500, L501.5200, L500.3400 #### [facility] [address] [place], [address] Calcium [Mass/Vol] 7.2 mg/dL Low 7.6-11.0 [facility] Comment on above: Order Comment: REDRA W. PREVIOUS SPECIMEN REJECTED DUE TO RESULTS NOT COMING THROUGH AND SEEM TO BE ERRONEOUS. 01/22/25219 Mora Patel. NOTIFIED DELMY FOR REDRAW Performed By: #### L 509.7001, L100.0100, L503.6005, L503.7505, L501.3620, L500.2500, L501.5200, L500.3400 #### [facility] [address] [place], [address] Chloride [Moles/Vol] 95 mmol/L Low 98-108 [facility] Comment on above: Order Comment: REDRA W. PREVIOUS SPECIMEN REJECTED DUE TO RESULTS NOT COMING THROUGH AND SEEM TO BE ERRONEOUS. 01/22/25219 Mora Patel. NOTIFIED DELMY FOR REDRAW Performed By: #### L 509.7001, L100.0100, L503.6005, L503.7505, L501.3620, L500.2500, L501.5200, L500.3400 #### [facility] [address] [place], [address] CO2 [Moles/Vol] 18.1 mmol/L Low 21.0-32.0 [facility] Comment on above: Order Comment: REDRA W. PREVIOUS SPECIMEN REJECTED DUE TO RESULTS NOT COMING THROUGH AND SEEM TO BE ERRONEOUS. 01/22/25219 Mora Patel. NOTIFIED DELMY FOR REDRAW Performed By: #### L 509.7001, L100.0100, L503.6005, L503.7505, L501.3620, L500.2500, L501.5200, L500.3400 #### [facility] [address] [place], [address] Creatinine [Mass/Vol] 3.55 mg/dL High 0.70-1.20 [facility] Comment on above: Order Comment: REDRA W. PREVIOUS SPECIMEN REJECTED DUE TO RESULTS NOT COMING THROUGH AND SEEM TO BE ERRONEOUS. 01/22/25219 Mora Patel. NOTIFIED DELMY FOR REDRAW Performed By: #### L 509.7001, L100.0100, L503.6005, L503.7505, L501.3620, L500.2500, L501.5200, L500.3400 #### [facility] [address] [place], [address] ECRCL 30.43 ml/min Low 50-250 [facility] Comment on above: Order Comment: REDRA W. PREVIOUS SPECIMEN REJECTED DUE TO RESULTS NOT COMING THROUGH AND SEEM TO BE ERRONEOUS. 01/22/25219 Mora Patel. NOTIFIED DELMY FOR REDRAW Performed By: #### L 509.7001, L100.0100, L503.6005, L503.7505, L501.3620, L500.2500, L501.5200, L500.3400 #### [facility] [address] [place], [address] GAP 16 High 5-15 [facility] Comment on above: Order Comment: REDRA W. PREVIOUS SPECIMEN REJECTED DUE TO RESULTS NOT COMING THROUGH AND SEEM TO BE ERRONEOUS. 01/22/25219 Mora Patel. NOTIFIED DELMY FOR REDRAW Performed By: #### L 509.7001, L100.0100, L503.6005, L503.7505, L501.3620, L500.2500, L501.5200, L500.3400 #### [facility] [address] [place], [address] GFR/1.73 sq M.predicted among non-blacks MDRD (S/P/Bld) [Vol rate/Area] 18 mL/min/{1.73_m2} Low >60 [facility] Comment on above: Order Comment: REDRA W. PREVIOUS SPECIMEN REJECTED DUE TO RESULTS NOT COMING THROUGH AND SEEM TO BE ERRONEOUS. 01/22/25219 Mora Patel. NOTIFIED DELMY FOR REDRAW Result Comment: mL/m in/1.73m2 CKD-EPI Creatinine Equation (2020) Performed By: #### L 509.7001, L100.0100, L503.6005, L503.7505, L501.3620, L500.2500, L501.5200, L500.3400 #### [facility] [address] [place], [address] Glucose [Mass/Vol] 121 mg/dL High 70-99 [facility] Comment on above: Order Comment: REDRA W. PREVIOUS SPECIMEN REJECTED DUE TO RESULTS NOT COMING THROUGH AND SEEM TO BE ERRONEOUS. 01/22/25219 Mora Patel. NOTIFIED DELMY FOR REDRAW Performed By: #### L 509.7001, L100.0100, L503.6005, L503.7505, L501.3620, L500.2500, L501.5200, L500.3400 #### [facility] [address] [place], [address] Potassium [Moles/Vol] 4.1 mmol/L Normal 3.3-5.1 [facility] Comment on above: Order Comment: REDRA W. PREVIOUS SPECIMEN REJECTED DUE TO RESULTS NOT COMING THROUGH AND SEEM TO BE ERRONEOUS. 01/22/25219 Mora Patel. NOTIFIED DELMY FOR REDRAW Performed By: #### L 509.7001, L100.0100, L503.6005, L503.7505, L501.3620, L500.2500, L501.5200, L500.3400 #### [facility] [address] [place], [address] Sodium [Moles/Vol] 129 mmol/L Low 133-145 [facility] Comment on above: Order Comment: REDRA W. PREVIOUS SPECIMEN REJECTED DUE TO RESULTS NOT COMING THROUGH AND SEEM TO BE ERRONEOUS. 01/22/25219 Mora Patel. NOTIFIED DELMY FOR REDRAW Performed By: #### L 509.7001, L100.0100, L503.6005, L503.7505, L501.3620, L500.2500, L501.5200, L500.3400 #### [facility] [address] [place], [address] Urea nitrogen [Mass/Vol] 59 mg/dL High [address] Comment on above: Order Comment: REDRA W. PREVIOUS SPECIMEN REJECTED DUE TO RESULTS NOT COMING THROUGH AND SEEM TO BE ERRONEOUS. 01/22/25219 Mora Patel. NOTIFIED DELMY FOR REDRAW Performed By: #### L 509.7001, L100.0100, L503.6005, L503.7505, L501.3620, L500.2500, L501.5200, L500.3400 #### [facility] [address] [place], [address] BUN Normal [address] [place] [address] Comment on above: Result Comment: REDR AW. PREVIOUS SPECIMEN REJECTED DUE TO RESULTS NOT COMING THROUGH AND SEEM TO BE ERRONEOUS. 01/22/25219 Mora Patel. NOTIFIED DELMY FOR REDRAW Performed By: #### L 509.7001, L100.0100, L503.6005, L503.7505, L501.3620, L500.2500, L501.5200, L500.3400 #### [facility] [address] [place], [address] BUN/CRE Normal 10-20 [facility] Comment on above: Result Comment: REDR AW. PREVIOUS SPECIMEN REJECTED DUE TO RESULTS NOT COMING THROUGH AND SEEM TO BE ERRONEOUS. 01/22/25219 Mora Patel. NOTIFIED DELMY FOR REDRAW Performed By: #### L 509.7001, L100.0100, L503.6005, L503.7505, L501.3620, L500.2500, L501.5200, L500.3400 #### [facility] [address] [place], [address] Calcium Normal 7.6-11.0 [facility] Comment on above: Result Comment: REDR AW. PREVIOUS SPECIMEN REJECTED DUE TO RESULTS NOT COMING THROUGH AND SEEM TO BE ERRONEOUS. 01/22/25219 Mora Patel. NOTIFIED DELMY FOR REDRAW Performed By: #### L 509.7001, L100.0100, L503.6005, L503.7505, L501.3620, L500.2500, L501.5200, L500.3400 #### [facility] [address] [place], [address] CL Normal 98-108 [facility] Comment on above: Result Comment: REDR AW. PREVIOUS SPECIMEN REJECTED DUE TO RESULTS NOT COMING THROUGH AND SEEM TO BE ERRONEOUS. 01/22/25219 Mora Patel. NOTIFIED DELMY FOR REDRAW Performed By: #### L 509.7001, L100.0100, L503.6005, L503.7505, L501.3620, L500.2500, L501.5200, L500.3400 #### [facility] [address] [place], [address] CO2 Normal 21.0-32.0 [facility] Comment on above: Result Comment: REDR AW. PREVIOUS SPECIMEN REJECTED DUE TO RESULTS NOT COMING THROUGH AND SEEM TO BE ERRONEOUS. 01/22/25219 Mora Patel. NOTIFIED DELMY FOR REDRAW Performed By: #### L 509.7001, L100.0100, L503.6005, L503.7505, L501.3620, L500.2500, L501.5200, L500.3400 #### [facility] [address] [place], [address] CREAT,SERUM Normal 0.70-1.20 [facility] Comment on above: Result Comment: REDR AW. PREVIOUS SPECIMEN REJECTED DUE TO RESULTS NOT COMING THROUGH AND SEEM TO BE ERRONEOUS. 01/22/25219 Mora Patel. NOTIFIED DELYM FOR REDRAW Performed By: #### L 509.7001, L100.0100, L503.6005, L503.7505, L501.3620, L500.2500, L501.5200, L500.3400 #### [facility] [address] [place], [address] eGFR Normal >60 [facility] Comment on above: Result Comment: REDR AW. PREVIOUS SPECIMEN REJECTED DUE TO RESULTS NOT COMING THROUGH AND SEEM TO BE ERRONEOUS. 01/22/25219 Mora Patel. NOTIFIED DELMY FOR REDRAW Performed By: #### L 509.7001, L100.0100, L503.6005, L503.7505, L501.3620, L500.2500, L501.5200, L500.3400 #### [facility] [address] [place], [address] GAP Normal 5-15 [facility] Comment on above: Result Comment: REDR AW. PREVIOUS SPECIMEN REJECTED DUE TO RESULTS NOT COMING THROUGH AND SEEM TO BE ERRONEOUS. 01/22/25219 Mora Patel. NOTIFIED DELMY FOR REDRAW Performed By: #### L 509.7001, L100.0100, L503.6005, L503.7505, L501.3620, L500.2500, L501.5200, L500.3400 #### [facility] [address] [place], [address] GLU Normal 70-99 [facility] Comment on above: Result Comment: REDR AW. PREVIOUS SPECIMEN REJECTED DUE TO RESULTS NOT COMING THROUGH AND SEEM TO BE ERRONEOUS. 01/22/25219 Mora Patel. NOTIFIED DELMY FOR REDRAW Performed By: #### L 509.7001, L100.0100, L503.6005, L503.7505, L501.3620, L500.2500, L501.5200, L500.3400 #### [facility] [address] [place], [address] Potassium Normal 3.3-5.1 [facility] Comment on above: Result Comment: REDR AW. PREVIOUS SPECIMEN REJECTED DUE TO RESULTS NOT COMING THROUGH AND SEEM TO BE ERRONEOUS. 01/22/25219 Mora Patel. NOTIFIED DELMY FOR REDRAW Performed By: #### L 509.7001, L100.0100, L503.6005, L503.7505, L501.3620, L500.2500, L501.5200, L500.3400 #### [facility] [address] [place], [address] Basic Metabolic Profile (BMP) Normal 133-145 [facility] Comment on above: Result Comment: REDR AW. PREVIOUS SPECIMEN REJECTED DUE TO RESULTS NOT COMING THROUGH AND SEEM TO BE ERRONEOUS. 01/22/25219 Mora Patel. NOTIFIED DELMY FOR REDRAW Performed By: #### L 509.7001, L100.0100, L503.6005, L503.7505, L501.3620, L500.2500, L501.5200, L500.3400 #### [facility] [address] [place], [address] Bilirubin Test strip Ql (U)O rdered By: See Bee on 01-22-2025 Bilirubin Ql (U) 3 mg/dL High Negative [facility] Comment on above: COLOR OF URINE MAY A FFECT DIPSTICK RESULTS. Bilirubin directOrdered By: See Bee on 01-22-2025 Bilirubin.direct [Mass/Vol] 1.16 mg/dL High 0.00-0.30 [facility] Bilirubin, totalOrdered By: See Bee on 01-22-2025 Bilirubin [Mass/Vol] 1.66 mg/dL High 0.00-1.30 [facility] Blood lymphocytes/100 leukoc ytesOrdered By: See Bee on 01-22-2025 Lymphocytes/100 WBC (Bld) 3 % Low 19-41 [facility] Blood metamyelocytes/100 donnell kocytesOrdered By: See Bee on 01-22-2025 Metamyelocytes/100 WBC (Bld) 5 % High 0-1 [facility] Blood monocytes/100 leukocyt esOrdered By: See Bee on 01-22-2025 Monocytes/100 WBC (Bld) 4 % 0-10 [facility] Blood segmented neutrophils/ 100 leukocytesOrdered By: See Bee on 01-22-2025 Segmented neutrophils/100 WBC (Bld) 88 % High 47-70 [facility] CALCIUM, IONIZEDon CALCIUM IONIZED 4.4 mg/dL Low 4.5-5.3 [facility] Comment on above: Performed By: #### 4 [id number] ####[facility] [address] [id number] Wojciech Oneal M.D. [id number] CBC WITH AUTO DIFFERENTIALon 01-22-2025 AUTO NRBC 0.2 % Normal [facility] Comment on above: Performed By: #### L [id number] ####[facility] [address], [place] [address] Wojciech Oneal M.D. [id number] AUTO NRBC ABS COUNT 0.04 K/mcL High 0.00-0.00 [facility] Comment on above: Performed By: #### L [id number] ####[facility] [address], [place] [address] Wojciech Oneal M.D. [id number] Erythrocyte distribution width (RBC) [Ratio] 12.8 % Normal 11.6-14.8 [facility] Comment on above: Performed By: #### L [id number] ####[facility] [address] [place] [address] Wojciech Oneal M.D. [id number] Hematocrit (Bld) [Volume fraction] 32.4 % Low 41.0-53.0 [facility] Comment on above: Performed By: #### Jennifer [id number] ####[facility] [address] [address] Wojciech Oneal M.D. [id number] Hemoglobin (Bld) [Mass/Vol] 11.0 g/dL Low 13.5-17.5 [facility] Comment on above: Performed By: #### Jennifer [id number] ####[facility] [address] [address] Wojciech Oneal M.D. [id number] MCH (RBC) [Entitic mass] 30.1 pg Normal 26.0-34.0 [facility] Comment on above: Performed By: #### L [id number] ####[facility] [address] [address] Wojciech Oneal M.D. [id number] MCV (RBC) [Entitic vol] 88.8 fL Normal 80.0-100.0 [facility] Comment on above: Performed By: #### L [id number] ####[facility] [address] [address] Wojciech Oneal M.D. [id number] MEAN CORPUSCULAR HEMOGLOBIN CONC 34.0 g/dL Normal 31.0-37.0 [facility] Comment on above: Performed By: #### L [id number] ####[facility] [address] [address] Wojciech Oneal M.D. [id number] Platelet mean volume (Bld) [Entitic vol] 9.1 fL Low 9.4-12.4 [facility] Comment on above: Performed By: #### L [id number] ####[facility] [address] [address] Wojciech Oneal M.D. [id number] Platelets (Bld) [#/Vol] 310 10*3/uL Normal 150-400 [facility] Comment on above: Performed By: #### L [id number] ####[facility] [address] [address] Wojciech Oneal M.D. [id number] RBC (Bld) [#/Vol] 3.65 10*6/uL Low 4.50-5.90 [facility] Comment on above: Performed By: #### L [id number] ####[facility] [address] [address] Wojciech Oneal M.D. [id number] WBC (Bld) [#/Vol] 22.81 10*3/uL High 4.50-11.00 [facility] Comment on above: Performed By: #### L [id number] ####[facility] [address] [address] Wojciech Oneal M.D. [id number] AUTO NRBC 0.0 % Normal [facility] Comment on above: Order Comment: Abnor mal cells suspicious for blasts/immature cells. The results of the differential are pending the blood smear being sent to [facility] for special hematology tech or pathologist review. Performed By: #### L [id number] ####[facility] [address] [address] Wojciech Oneal M.D. [id number] AUTO NRBC ABS COUNT 0.00 K/mcL Normal 0.00-0.00 [facility] Comment on above: Order Comment: Abnor mal cells suspicious for blasts/immature cells. The results of the differential are pending the blood smear being sent to [facility] for special hematology tech or pathologist review. Performed By: #### L [id number] ####[facility] [address] [address] Wojciech Oneal M.D. [id number] Erythrocyte distribution width (RBC) [Ratio] 12.6 % Normal 11.6-14.8 [facility] Comment on above: Order Comment: Abnor mal cells suspicious for blasts/immature cells. The results of the differential are pending the blood smear being sent to [facility] for special hematology tech or pathologist review. Performed By: #### L [id number] ####[facility] [address] [address] Wojciech Oneal M.D. [id number] Hematocrit (Bld) [Volume fraction] 36.7 % Low 41.0-53.0 [facility] Comment on above: Order Comment: Abnor mal cells suspicious for blasts/immature cells. The results of the differential are pending the blood smear being sent to [facility] for special hematology tech or pathologist review. Performed By: #### L [id number] ####[facility] [address] [address] Wojciech Oneal M.D. [id number] Hemoglobin (Bld) [Mass/Vol] 12.0 g/dL Low 13.5-17.5 [facility] Comment on above: Order Comment: Abnor mal cells suspicious for blasts/immature cells. The results of the differential are pending the blood smear being sent to [facility] for special hematology tech or pathologist review. Performed By: #### L [id number] ####[facility] [address] [id number] Wojciech Oneal M.D. [id number] MCH (RBC) [Entitic mass] 28.9 pg Normal 26.0-34.0 [facility] Comment on above: Order Comment: Abnor mal cells suspicious for blasts/immature cells. The results of the differential are pending the blood smear being sent to [facility] for special hematology tech or pathologist review. Performed By: #### L [id number] ####[facility] [address] [address] Wojciech Oneal M.D. [id number] MCV (RBC) [Entitic vol] 88.4 fL Normal 80.0-100.0 [facility] Comment on above: Order Comment: Abnor mal cells suspicious for blasts/immature cells. The results of the differential are pending the blood smear being sent to [facility] for special hematology tech or pathologist review. Performed By: #### L [id number] ####[facility] [address] [address] Wojciech Oneal M.D. [id number] MEAN CORPUSCULAR HEMOGLOBIN CONC 32.7 g/dL Normal 31.0-37.0 [facility] Comment on above: Order Comment: Abnor mal cells suspicious for blasts/immature cells. The results of the differential are pending the blood smear being sent to [facility] for special hematology tech or pathologist review. Performed By: #### L [id number] ####[facility] [address] [address] Wojciech Oneal M.D. [id number] Platelet mean volume (Bld) [Entitic vol] 9.4 fL Normal 9.4-12.4 [facility] Comment on above: Order Comment: Abnor mal cells suspicious for blasts/immature cells. The results of the differential are pending the blood smear being sent to [facility] for special hematology tech or pathologist review. Performed By: #### L [id number] ####[facility] [address] [id number] Wojciech Oneal M.D. [id number] Platelets (Bld) [#/Vol] 318 10*3/uL Normal 150-400 [facility] Comment on above: Order Comment: Abnor mal cells suspicious for blasts/immature cells. The results of the differential are pending the blood smear being sent to [facility] for special hematology tech or pathologist review. Result Comment: Plat elets clumped but count appears normal. If clinically indicated, please request a Citrate Platelet Count. Performed By: #### L [id number] ####[facility] [address] [id number] Wojciech Oneal M.D. [id number] RBC (Bld) [#/Vol] 4.15 10*6/uL Low 4.50-5.90 [facility] Comment on above: Order Comment: Abnor mal cells suspicious for blasts/immature cells. The results of the differential are pending the blood smear being sent to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 [address] [place] [address] Tuan Ascencio M.D. [id number] Magnesiumon 01-22-2025 Magnesium [Mass/Vol] 2.1 mg/dL Normal 1.5-2.2 [facility] Comment on above: Performed By: #### L 509.7001, L100.0100, L503.6005, L503.7505, L501.3620, L500.2500, L501.5200, L500.3400 #### [facility] [address] [place], [address] Magnesium [Mass/Vol] 2.5 mg/dL High 1.5-2.2 [facility] Comment on above: Order Comment: REDRA [...] L503.6005, L503.7505, L501.3620, L500.2500, L501.5200, L500.3400 #### [facility] [place], [address] Magnesium measurement (mass/ volume)Ordered By: See Bee on 01-22-2025 Magnesium (Unsp spec) [Mass/Vol] 2.1 mg/dL 1.5-2.2 [facility] Mean corpuscular hemoglobin (MCH) determinationOrdered By: See Bee on 01-22-2025 MCH (RBC) [Entitic mass] 29.7 pg 27.0-32.0 [facility] Mean corpuscular hemoglobin concentration (MCHC) determinationOrdered By: See Bee on 01-22-2025 MCHC (RBC) [Mass/Vol] 33.9 g/dL 32-36 [facility] Mean platelet volume determi nationOrdered By: See Bee on 01-22-2025 Platelet mean volume (Bld) [Entitic vol] 9.3 fL 6.2-12.0 [facility] Microscopic analysis of urin e for red blood cells (RBC)Ordered By: See Bee on 01-22-2025 Microscopic analysis of urine for red blood cells (RBC) 0-5 SEEN /hpf 0-5 [facility] Mucus LM Ql (Urine sed)Order ed By: See Bee on 01-22-2025 Mucus Ql (Urine sed) 0 SEEN /hpf [facility] Natriuretic peptide.B prohor evaristo N-Terminal [Mass/volume] in Serum or PlasmaOrdered By: See Bee on 01-22-2025 Natriuretic peptide.B prohormone N-Terminal [Mass/Vol] 1427 pg/mL High <900 [facility] Comment on above: Heart Failure Unlike ly: < 300 pg/mLHeart Failure Likely< 50 Years: > 450 pg/mL50-75 Years: > 900 pg/mL>75 Years: > 1800 pg/mL Nitrite Test strip Ql (U)Ord ered By: See Bee on 01-22-2025 Nitrite Ql (U) Positive High Negative [facility] OP NOTEon 01-22-2025 OP NOTE Normal [facility] PERIPHERAL SMEAR REVIEW (LUISA HS ONLY)on 01-22-2025 SMEAR REVIEW See Comment Normal [facility] Comment on above: Result Comment: Smea r reviewed for possible immature cells. Performed By: #### C [id number] ####[facility] [address] [address] Tuan Ascencio M.D. [id number] PHOSPHORUSon 01-22-2025 Phosphate [Mass/Vol] 6.6 mg/dL High 2.3-3.7 [facility] Comment on above: Performed By: #### 4 6299 ####[facility] [address] [address] Wojciech Oneal M.D. [id number] POC ARTERIAL BLOOD GAS PANEL -[facility] 01-22-2025 BASE EXCESS, ARTERIAL -7.7 Low -2.0-2.0 [facility] Comment on above: Performed By: #### 4 [id number] ####[facility] [address] [address] [id number] [facility] CALCIUM IONIZED 4.0 mg/dL Low 4.5-5.3 [facility] Comment on above: Performed By: #### 4 [id number] ####[facility] [address] [address] [id number] [facility] CARBOXYHEMOGLOBIN 1.3 % of total Hb Normal <=1.5 [facility] Comment on above: Result Comment: Refe ren Ranges:[facility] Non-smokers: <1.5%Smokers: 1.5-5.0%Heavy Smokers: 5.0-9.0% Performed By: #### 4 [id number] ####[facility] [address] [address] [id number] [facility] Chloride [Moles/Vol] 105 mmol/L Normal 98-108 [facility] Comment on above: Performed By: #### 4 [id number] ####[facility] [address] [address] [id number] [facility] FIO2 50 Normal [facility] Comment on above: Performed By: #### 4 [id number] ####[facility] [address] [address] [id number] [facility] Glucose [Mass/Vol] 120 mg/dL High 65-99 [facility] Comment on above: Performed By: #### 4 [id number] ####[facility] [address] [address] [id number] [facility] HCO3 (Bld) [Moles/Vol] 19.2 mmol/L Low 22.0-26.0 [facility] Comment on above: Performed By: #### 4 [id number] ####[facility] [address] [address] [id number] [facility] Hematocrit (Bld) [Volume fraction] 29.9 % Low 41.0-53.0 [facility] Comment on above: Performed By: #### 4 [id number] ####[facility] [address] [address] [id number] [facility] Hemoglobin (Bld) [Mass/Vol] 9.8 g/dL Low 13.5-17.5 [facility] Comment on above: Performed By: #### 4 [id number] ####[facility] [address] [address] [id number] [facility] LACTIC ACID, WHOLE BLOOD 0.9 mmol/L Normal 0.6-2.0 [facility] Comment on above: Performed By: #### 4 [id number] ####[facility] [address] [address] [id number] [facility] METHEMOGLOBIN < Normal 0.0-2.0 [facility] Comment on above: Performed By: #### 4 [id number] ####[facility] [address] [address] [id number] [facility] O2HB 97.6 % Normal 94.0-98.0 [facility] Comment on above: Performed By: #### 4 [id number] ####[facility] [address] [address] [id number] [facility] Oxygen saturation in Blood 99.3 % High 92.0-99.0 [facility] Comment on above: Performed By: #### 4 [id number] ####[facility] [address] [address] [id number] [facility] PCO2 ARTERIAL 43.9 mm Hg Normal 35.0-45.0 [facility] Comment on above: Performed By: #### 4 [id number] ####[facility] [address] [address] [id number] [facility] PEEP RAD 10 [facility] Comment on above: Performed By: #### 4 [id number] ####[facility] [address] [address] [id number] [facility] PH ARTERIAL 7.25 Low 7.35-7.45 [facility] Comment on above: Performed By: #### 4 [id number] ####[facility] [address] [address] [id number] [facility] PO2 ARTERIAL 162 mm Hg High 75-85 [facility] Comment on above: Performed By: #### 4 [id number] ####[facility] [address] [address] [id number] [facility] Potassium [Moles/Vol] 3.6 mmol/L Normal 3.5-5.1 [facility] Comment on above: Performed By: #### 4 [id number] ####[facility] [address] [address] [id number] [facility] RESP RATE RAD 16 [facility] Comment on above: Performed By: #### 4 [id number] ####[facility] [address] [address] [id number] [facility] Sodium [Moles/Vol] 132 mmol/L Low 135-145 [facility] Comment on above: Performed By: #### 4 [id number] ####[facility] [address] [address] [id number] [facility] TIDAL VOLUME RAD 450 [facility] Comment on above: Performed By: #### 4 [id number] ####[facility] [address] [address] [id number] [facility] BASE EXCESS, ARTERIAL -7.9 Low -2.0-2.0 [facility] Comment on above: Order Comment: Criti johnie result acted upon time of test. Test performed at bedside. Performed By: #### 4 [id number] ####[facility] [address] [address] [id number] [facility] CALCIUM IONIZED 4.3 mg/dL Low 4.5-5.3 [facility] Comment on above: Order Comment: Criti johnie result acted upon time of test. Test performed at bedside. Performed By: #### 4 [id number] ####[facility] [address] [address] [id number] [facility] CARBOXYHEMOGLOBIN 1.3 % of total Hb Normal <=1.5 [facility] Comment on above: Order Comment: Criti johnie result acted upon time of test. Test performed at bedside. Result Comment: Refe rence Ranges:[facility] Non-smokers: <1.5%Smokers: 1.5-5.0%Heavy Smokers: 5.0-9.0% Performed By: #### 4 [id number] ####[facility] [address] [address] [id number] [facility] FIO2 100 Normal [facility] Comment on above: Order Comment: Criti johnie result acted upon time of test. Test performed at bedside. Performed By: #### 4 [id number] ####[facility] [address] [address] [id number] [facility] Glucose [Mass/Vol] 134 mg/dL High 65-99 [facility] Comment on above: Order Comment: Criti johnie result acted upon time of test. Test performed at bedside. Performed By: #### 4 [id number] ####[facility] [address] [address] [id number] [facility] HCO3 (Bld) [Moles/Vol] 20.4 mmol/L Low 22.0-26.0 [facility] Comment on above: Order Comment: Criti johnie result acted upon time of test. Test performed at bedside. Performed By: #### 4 [id number] ####[facility] [address] [address] [id number] [facility] Hematocrit (Bld) [Volume fraction] 33.3 % Low 41.0-53.0 [facility] Comment on above: Order Comment: Criti johnie result acted upon time of test. Test performed at bedside. Performed By: #### 4 [id number] ####[facility] [address] [address] [id number] [facility] Hemoglobin (Bld) [Mass/Vol] 10.8 g/dL Low 13.5-17.5 [facility] Comment on above: Order Comment: Criti johnie result acted upon time of test. Test performed at bedside. Performed By: #### 4 [id number] ####[facility] [address] [address] [id number] [facility] LACTIC ACID, WHOLE BLOOD 1.7 mmol/L Normal 0.6-2.0 [facility] Comment on above: Order Comment: Criti johnie result acted upon time of test. Test performed at bedside. Performed By: #### 4 [id number] ####[facility] [address] [address] [id number] [facility] METHEMOGLOBIN 0.8 % Normal 0.0-2.0 [facility] Comment on above: Order Comment: Criti johnie result acted upon time of test. Test performed at bedside. Performed By: #### 4 [id number] ####[facility] [address] [address] [id number] CPOC O2HB 97.3 % Normal 94.0-98.0 [facility] Comment on above: Order Comment: Criti johnie result acted upon time of test. Test performed at bedside. Performed By: #### 4 [id number] ####[facility] [address] [address] [id number] [facility] Oxygen saturation in Blood 99.4 % High 92.0-99.0 [facility] Comment on above: Order Comment: Criti johnie result acted upon time of test. Test performed at bedside. Performed By: #### 4 [id number] ####[facility] [address] [address] [id number] [facility] PCO2 ARTERIAL 57.7 mm Hg High 35.0-45.0 [facility] Comment on above: Order Comment: Criti johnie result acted upon time of test. Test performed at bedside. Performed By: #### 4 [id number] ####[facility] [address] [address] [id number] [facility] PH ARTERIAL 7.18 Off scale low 7.35-7.45 [facility] Comment on above: Order Comment: Criti johnie result acted upon time of test. Test performed at bedside. Performed By: #### 4 [id number] ####[facility] [address] [address] [id number] [facility] PO2 ARTERIAL 255 mm Hg High 75-85 [facility] Comment on above: Order Comment: Criti johnie result acted upon time of test. Test performed at bedside. Performed By: #### 4 [id number] ####[facility] [address] [address] [id number] [facility] Potassium [Moles/Vol] 3.8 mmol/L Normal 3.5-5.1 [facility] Comment on above: Order Comment: Criti johnie result acted upon time of test. Test performed at bedside. Performed By: #### 4 [id number] ####[facility] [address] [address] [id number] [facility] Sodium [Moles/Vol] 130 mmol/L Low 135-145 [facility] Comment on above: Order Comment: Criti johnie result acted upon time of test. Test performed at bedside. Performed By: #### 4 [id number] ####[facility] [address] [address] [id number] [facility] BASE EXCESS, ARTERIAL -10.9 Low -2.0-2.0 [facility] Comment on above: Order Comment: Criti johnie result acted upon time of test. Test performed at bedside. CALCIUM IONIZED 4.3 mg/dL Low 4.5-5.3 [facility] Comment on above: Order Comment: Criti johnie result acted upon time of test. Test performed at bedside. CARBOXYHEMOGLOBIN 1.0 % of total Hb Normal <=1.5 [facility] Comment on above: Order Comment: Criti johnie result acted upon time of test. Test performed at bedside. Result Comment: Refe arleth Ranges:Suburban Non-smokers: <1.5%Smokers: 1.5-5.0%Heavy Smokers: 5.0-9.0% Chloride [Moles/Vol] 103 mmol/L Normal 98-108 [facility] Comment on above: Order Comment: Criti johnie result acted upon time of test. Test performed at bedside. Glucose [Mass/Vol] 135 mg/dL High 65-99 [facility] Comment on above: Order Comment: Criti johnie result acted upon time of test. Test performed at bedside. HCO3 (Bld) [Moles/Vol] 17.6 mmol/L Low 22.0-26.0 [facility] Comment on above: Order Comment: Criti johnie result acted upon time of test. Test performed at bedside. Hematocrit (Bld) [Volume fraction] 31.6 % Low 41.0-53.0 [facility] Comment on above: Order Comment: Criti johnie result acted upon time of test. Test performed at bedside. Hemoglobin (Bld) [Mass/Vol] 10.3 g/dL Low 13.5-17.5 [facility] Comment on above: Order Comment: Criti johnie result acted upon time of test. Test performed at bedside. LACTIC ACID, WHOLE BLOOD 2.6 mmol/L High 0.6-2.0 [facility] Comment on above: Order Comment: Criti johnie result acted upon time of test. Test performed at bedside. METHEMOGLOBIN < Normal 0.0-2.0 [facility] Comment on above: Order Comment: Criti johnie result acted upon time of test. Test performed at bedside. O2HB 96.8 % Normal 94.0-98.0 [facility] Comment on above: Order Comment: Criti johnie result acted upon time of test. Test performed at bedside. Oxygen saturation in Blood 98.7 % Normal 92.0-99.0 [facility] Comment on above: Order Comment: Criti johnie result acted upon time of test. Test performed at bedside. PCO2 ARTERIAL 50.2 mm Hg High 35.0-45.0 [facility] Comment on above: Order Comment: Criti johnie result acted upon time of test. Test performed at bedside. PH ARTERIAL 7.15 Off scale low 7.35-7.45 [facility] Comment on above: Order Comment: Criti johnie result acted upon time of test. Test performed at bedside. PO2 ARTERIAL 182 mm Hg High 75-85 [facility] Comment on above: Order Comment: Criti johnie result acted upon time of test. Test performed at bedside. Potassium [Moles/Vol] 4.1 mmol/L Normal 3.5-5.1 [facility] Comment on above: Order Comment: Criti johnie result acted upon time of test. Test performed at bedside. RESULT NOTIFICATION critical results given to treating OR anesthesiolo Normal [facility] Comment on above: Order Comment: Criti johnie result acted upon time of test. Test performed at bedside. Sodium [Moles/Vol] 131 mmol/L Low 135-145 [facility] Comment on above: Order Comment: Criti johnie result acted upon time of test. Test performed at bedside. POC GLUCOSE - [facility] 025 Glucose [Mass/Vol] 141 mg/dL [address] [address] [place] [address] Comment on above: Performed By: #### 4 6932 ####[facility] [address] [address] [id number] [facility] Glucose [Mass/Vol] 146 mg/dL [address] Comment on above: Performed By: #### 4 6932 ####[facility] [address] [address] [id number] [facility] POC VENOUS BLOOD GAS PANEL-P [facility] 01-22-2025 BASE EXCESS, VENOUS -8.9 Low -2.0-2.0 [facility] Comment on above: Order Comment: Criti johnie result acted upon time of test. Test performed at bedside. CALCIUM IONIZED 4.2 mg/dL Low 4.5-5.3 [facility] Comment on above: Order Comment: Criti johnie result acted upon time of test. Test performed at bedside. CARBOXYHEMOGLOBIN 1.2 % of total Hb Normal <=1.5 [facility] Comment on above: Order Comment: Criti johnie result acted upon time of test. Test performed at bedside. Result Comment: Refe rence Ranges:Suburban Non-smokers: <1.5%Smokers: 1.5-5.0%Heavy Smokers: 5.0-9.0% Chloride [Moles/Vol] 99 mmol/L Normal 98-108 [facility] Comment on above: Order Comment: Criti johnie result acted upon time of test. Test performed at bedside. Glucose [Mass/Vol] 124 mg/dL High 65-99 [facility] Comment on above: Order Comment: Criti johnie result acted upon time of test. Test performed at bedside. HCO3 (Bld) [Moles/Vol] 20.8 mmol/L Low 24.0-28.0 [facility] Comment on above: Order Comment: Criti johnie result acted upon time of test. Test performed at bedside. Hematocrit (Bld) [Volume fraction] 40.4 % Low 41.0-53.0 [facility] Comment on above: Order Comment: Criti johnie result acted upon time of test. Test performed at bedside. Hemoglobin (Bld) [Mass/Vol] 13.2 g/dL Low 13.5-17.5 [facility] Comment on above: Order Comment: Criti johnie result acted upon time of test. Test performed at bedside. LACTIC ACID, WHOLE BLOOD 2.4 mmol/L High 0.6-2.0 [facility] Comment on above: Order Comment: Criti johnie result acted upon time of test. Test performed at bedside. METHEMOGLOBIN < Normal 0.0-2.0 [facility] Comment on above: Order Comment: Criti johnie result acted upon time of test. Test performed at bedside. O2HB 39.5 % Normal No established reference range [facility] Comment on above: Order Comment: Criti johnie result acted upon time of test. Test performed at bedside. Oxygen saturation in Blood 40.3 % Normal 40.0-70.0 [facility] Comment on above: Order Comment: Criti johnie result acted upon time of test. Test performed at bedside. PCO2 VENOUS 61.0 mm Hg High 41.0-51.0 [facility] Comment on above: Order Comment: Criti johnie result acted upon time of test. Test performed at bedside. PH VENOUS 7.14 Off scale low 7.32-7.42 [facility] Comment on above: Order Comment: Criti johnie result acted upon time of test. Test performed at bedside. PO2 VENOUS 31 mm Hg Normal 25-40 [facility] Comment on above: Order Comment: Criti johnie result acted upon time of test. Test performed at bedside. Potassium [Moles/Vol] 4.1 mmol/L Normal 3.5-5.1 [facility] Comment on above: Order Comment: Criti johnie result acted upon time of test. Test performed at bedside. RESULT NOTIFICATION critical results given to treating OR anesthesiolo Normal [facility] Comment on above: Order Comment: Criti johnie result acted upon time of test. Test performed at bedside. Sodium [Moles/Vol] 131 mmol/L Low 135-145 [facility] Comment on above: Order Comment: Criti johnie result acted upon time of test. Test performed at bedside. Platelet countOrdered By: Yumiko Bee on 01-22-2025 Platelets (Bld) [#/Vol] 358 10*3/uL 150-450 [facility] Potassium measurement (mass/ volume)Ordered By: See Bee on 01-22-2025 Potassium (Unsp spec) [Mass/Vol] 4.1 mmol/L 3.3-5.1 [facility] Pro- Brain NATRIURETIC PEPTI Ashlee 01-22-2025 Natriuretic peptide B (Bld) [Mass/Vol] 1427 pg/mL High <=900 [facility] Comment on above: Result Comment: Hear t Failure Unlikely: < 300 pg/mL Heart Failure Likely < 50 Years: > 450 pg/mL 50-75 Years: > 900 pg/mL >75 Years: > 1800 pg/mL Performed By: #### L 509.7001, L100.0100, L503.6005, L503.7505, L501.3620, L500.2500, L501.5200, L500.3400 #### [facility] [address] [place], [address] Natriuretic peptide B (Bld) [Mass/Vol] 1765 pg/mL High <=900 [facility] Comment on above: Order Comment: REDRA [...] L503.6005, L503.7505, L501.3620, L500.2500, L501.5200, L500.3400 #### [facility] [address] [place], [address] Procalcitonin [Mass/volume] in Serum or Plasma by ImmunoassayOrdered By: See Bee on 01-22-2025 Procalcitonin IA [Mass/Vol] 1.73 ng/mL High <0.11 [facility] Comment on above: Interpretation:<0.10 -0.25 ng/mL: [...] Protein Ql (U) 30 mg/dl High Negative [facility] RBC Auto (Bld) [#/Vol]Ordere d By: See Bee on 01-22-2025 RBC (Bld) [#/Vol] 4.74 10*6/uL 4.6-6.2 [facility] Review by pathologistOrdered By: See Bee on 01-22-2025 Pathologist review Vishal (Unsp spec) [Interp] September [facility] Serum creatinine measurement (mass/volume)Ordered By: See Bee on 01-22-2025 Creatinine [Mass/Vol] 3.55 mg/dL High 0.70-1.20 [facility] Serum globulin measurementOr dered By: See Bee on 01-22-2025 Globulin (S) [Mass/Vol] 3.5 g/dL 2.2-4.2 [facility] Comment on above: Previous reported re sult: 3.3 g/dLEdited by: JAY on 01/22/25:0632 AMENDED REPORT 01/22/25 0632 GLOB previously reported as: 3.3 g/dL Serum glucose measurement (m ass/volume)Ordered By: See Bee on 01-22-2025 Glucose [Mass/Vol] 121 mg/dL High 70-99 [facility] Serum or plasma alanine cowan otransferase (ALT) measurementOrdered By: See Bee on 01-22-2025 ALT [Catalytic activity/Vol] 50 U/L High <47 [facility] Serum or plasma albumin evelio urement (mass/volume)Ordered By: See Bee on 01-22-2025 Albumin [Mass/Vol] 2.4 g/dL Low 3.4-4.8 [facility] Comment on above: Previous reported re sult: 2.6 g/dLEdited by: JAY on 01/22/25:0632 AMENDED REPORT 01/22/25 0632 ALB previously reported as: 2.6 L g/dL Serum or plasma alkaline nilda sphatase measurementOrdered By: See Bee on 01-22-2025 ALP [Catalytic activity/Vol] 67 U/L 40-129 [facility] Serum or plasma calcium evelio urement (mass/volume)Ordered By: See Bee on 01-22-2025 Calcium [Mass/Vol] 7.2 mg/dL Low 7.6-11.0 [facility] Serum or plasma creatine kin ase activityOrdered By: See Bee on 01-22-2025 CK [Catalytic activity/Vol] 3791 U/L High 24-195 [facility] Serum or plasma urea nitroge n measurement (mass/volume)Ordered By: See Bee on 01-22-2025 Urea nitrogen [Mass/Vol] 59 mg/dL High 4-19 [facility] Sodium levelOrdered By: Kalpesh Bee on 01-22-2025 Sodium [Moles/Vol] 129 mmol/L Low 133-145 [facility] Squamous epithelial cells de tection in urine sediment by light microscopyOrdered By: See Bee on 01-22-2025 Epithelial cells.squamous LM Ql (Urine sed) 0-5 SEEN /hpf 0-5 [facility] TISSUE AEROBIC AND ANAEROBIC CULTUREon 01-22-2025 TISSUE AEROBIC AND ANAEROBIC CULTURE CULTURE BACTEROIDES FRAGILIS Moderate Growth Bacteroides fragilis Heavy Growth Normal Enteric Cordelia GRAM STAIN RESULT Few WBC Many RBC Many Gram Negative Bacilli Moderate Gram Positive Cocci Abnormal [facility] Comment on above: Performed By: #### 4 1441 ####[facility] [address] [place], [place] [id number] Tuan Ascencio M.D. [id number] TISSUE EXAMon 01-22-2025 TISSUE EXAM [facility] Comment on above: Performed By: #### 4 7015 ####[facility] [address] [address] Wojciech Oneal M.D. [id number] [facility] [address] [address] Tuan Ascencio M.D. [id number] TRIGLYCERIDESon 01-22-2025 Triglyceride [Mass/Vol] 93 mg/dL Normal 30-150 [facility] Comment on above: Result Comment: Vaishnavi onal Cholesterol Education Program Guidelines: TriglycerideNormal: <150 mg/dLBorderline High: 150-199 mg/dLHigh: 200-499 mg/dLVery High: greater than or equal to 500 mg/dL Performed By: #### 4 6606 ####[facility] [address] [address] Wojciech Oneal M.D. [id number] TYPE AND SCREENon 01-22-2025 TYPE AND SCREEN ABORH: O Positive AB SCREEN: Negative EXPIRATION DATE: 01/25/2025 23:59 EST [facility] Comment on above: Performed By: #### 4 6619 ####[facility] [address] [address] Radha Kelsey MD [id number] GMCTS Total cell countOrdered By: See Bee on 01-22-2025 Cells counted Molgen (Bld/Tiss) [#] 100 MANUAL DIFF [facility] Total proteinOrdered By: Mark Bee on 01-22-2025 Protein [Mass/Vol] 5.9 g/dL 5.9-8.4 [facility] Urinalysis, Completeon 01-22 CAST,HYALINE 0-5 SEEN Normal 0-5 [facility] Comment on above: Order Comment: REDRA W. PREVIOUS SPECIMEN REJECTED DUE TO RESULTS NOT COMING THROUGH AND SEEM TO BE ERRONEOUS. 01/22/250 Mora Patel. NOTIFIED DELMY FOR REDRAW Performed By: #### L 509.7001, L100.0100, L503.6005, L503.7505, L501.3620, L500.2500, L501.5200, L500.3400 #### [facility] [address] [place], [place], [id number] (219) RBC 0-5 SEEN Normal 0-5 [facility] Comment on above: Order Comment: REDRA W. PREVIOUS SPECIMEN REJECTED DUE TO RESULTS NOT COMING THROUGH AND SEEM TO BE ERRONEOUS. 01/22/25219 Mora Patel. NOTIFIED DELMY FOR REDRAW Performed By: #### L 509.7001, L100.0100, L503.6005, L503.7505, L501.3620, L500.2500, L501.5200, L500.3400 #### [facility] [address] [place], [place], [phone] (757) WBC 10-25 SEEN Normal 0-5 [facility] Comment on above: Order Comment: REDRA W. PREVIOUS SPECIMEN REJECTED DUE TO RESULTS NOT COMING THROUGH AND SEEM TO BE ERRONEOUS. 01/22/25219 Mora Patel. NOTIFIED DELMY FOR REDRAW Performed By: #### L 509.7001, L100.0100, L503.6005, L503.7505, L501.3620, L500.2500, L501.5200, L500.3400 #### [facility] [address] [place], [place], [phone] ([phone] BACTERIA 1+ /hpf Normal None Seen [facility] Comment on above: Order Comment: REDRA W. PREVIOUS SPECIMEN REJECTED DUE TO RESULTS NOT COMING THROUGH AND SEEM TO BE ERRONEOUS. 01/22/25219 Mora Patel. NOTIFIED DELMY FOR REDRAW Performed By: #### L 509.7001, L100.0100, L503.6005, L503.7505, L501.3620, L500.2500, L501.5200, L500.3400 #### [facility] [address] [place], [place], [phone] (259) EPI,SQUAMOUS 0-5 SEEN Normal 0-5 [facility] Comment on above: Order Comment: REDRA W. PREVIOUS SPECIMEN REJECTED DUE TO RESULTS NOT COMING THROUGH AND SEEM TO BE ERRONEOUS. 01/22/25219 Mora Patel. NOTIFIED DELMY FOR REDRAW Performed By: #### L 509.7001, L100.0100, L503.6005, L503.7505, L501.3620, L500.2500, L501.5200, L500.3400 #### [facility] [address] [place], [place], [id number] Mucus Ql (Urine sed) 0 SEEN Normal [facility] Comment on above: Order Comment: REDRA W. PREVIOUS SPECIMEN REJECTED DUE TO RESULTS NOT COMING THROUGH AND SEEM TO BE ERRONEOUS. 01/22/25219 Mora Patel. NOTIFIED DELMY FOR REDRAW Performed By: #### L 509.7001, L100.0100, L503.6005, L503.7505, L501.3620, L500.2500, L501.5200, L500.3400 #### [facility] [address] [place], [place], [phone] Urine clarityOrdered By: Mark Bee on 01-22-2025 Clarity (U) Clear Clear [facility] Urine color determinationOrd ered By: See Bee on 01-22-2025 Color (U) Pili Yellow [facility] Urine glucose detectionOrder ed By: See Bee on 01-22-2025 Glucose Ql (U) Normal mg/dl Normal [facility] Urine leukocyte esterase det ection by dipstickOrdered By: See Bee on 01-22-2025 Leukocyte esterase Test strip Ql (U) 25 /ul High Negative [facility] Urine pHOrdered By: eSe garcia on 01-22-2025 pH (U) 5.0 [pH] 5.0 - 8.0 [facility] Urine sediment bacteria coun t by microscopy (number/high power field)Ordered By: See Bee on 01-22-2025 Bacteria LM.HPF (Urine sed) [#/Area] 1 /[HPF] None Seen [facility] Urine specific gravity measu rementOrdered By: See Bee on 01-22-2025 Specific gravity (U) [Rel density] 1.020 1.002-1.030 [facility] Urine urobilinogen measureme ntOrdered By: See Bee on 01-22-2025 Urobilinogen Ql (U) 4 mg/dl High Normal [facility] VANCOMYCIN LEVEL, RANDOMon 0 01-22-2025 VANCOMYCIN RANDOM 22.0 mcg/mL [facility] Comment on above: Order Comment: As of 02/2022 vancomycin dosing for [facility] inpatients will be done by Bayesian dosing software rather than off traditional trough values. Please contact the site specific inpatient pharmacy before making dose changes off of trough values alone for admitted patients.No established reference range. Performed By: #### 4 [id number] ####[facility] [address], [place] [address] Wojciech Oneal M.D. [id number] White blood cell (WBC) count Ordered By: See Bee on 01-22-2025 WBC (Bld) [#/Vol] 26.8 10*3/uL High 4.4-11.0 [facility] White blood cell countOrdere d By: See Bee on 01-22-2025 White blood cell count 10-25 SEEN /hpf 0-5 [facility] XR ABDOMEN /KUB/FLAT PLATE/1 VIEWon 01-22-2025 XR ABDOMEN /KUB/FLAT PLATE/1 VIEW [facility] Comment on above: Order Comment: Injur y/Trauma or Illness?:Illness/OtherHow long have you had these symptoms (acute/chronic)?:AcuteReason for exam?:OGT placementHistory of cancer?:unkSurgeries, chemotherapy, or radiation?:unkType of Exam?:InitialAdditional signs and symptoms?:na XR CHEST PA/APon 01-22-2025 XR CHEST PA/AP [facility] Comment on above: Order Comment: Injur y/Trauma or Illness?:Illness/OtherHow long have you had these symptoms (acute/chronic)?:AcuteReason for exam?:CVC placementHistory of cancer?:unkSurgeries, chemotherapy, or radiation?:unkType of Exam?:InitialAdditional signs and symptoms?:n/a XR CHEST PA/AP Normal [facility] Comment on above: Order Comment: Injur y/Trauma or Illness?:Illness/OtherHow long have you had these symptoms (acute/chronic)?:AcuteReason for exam?:ET tube placementHistory of cancer?:unkSurgeries, chemotherapy, or radiation?:unkType of Exam?:InitialAdditional signs and symptoms?:n/a Chest 1 View (Portable)on Chest 1 View (Portable) [facility] [address] [place] [address] Chest 1 View (Portable) MR#: [id number] Acct: [id number] Name: JAK TANNER Rep #: [id number] : 1955 M 69 From: Bayron Hunt MD PCP: [facility] Status: PRE ER Study: Chest 1 View (Portable) Date of Exam: 01/21/25 Exam# [id number] Ordering Dr: See Bee DO PROCEDURE: CHEST 1 VIEW (PORTABLE) 01/22/2025 REASON FOR EXAM: COUGH TECHNIQUE: Frontal view of the chest. FINDINGS: The lungs are clear. The cardiomediastinal silhouette appears borderline enlarged, with mild atherosclerotic calcification of the aortic knob.. No acute osseous abnormality. RAD/Chest 1 View (Portable) IMPRESSION: As above. Reading Location: [id number] CC: See Bee DO; [facility] Production Bow Maker: Signed Normal [facility] Absolute lymphocyte countOrd ered By: Remus Moises on 07-12-2023 Lymphocytes Auto (Unsp spec) [#/Vol] 0.61 10*3/uL 0.83-4.51 [facility] Automated lymphocyte count a s percentage of total leukocytesOrdered By: Remus Moises on 07-12-2023 Lymphocytes/100 WBC Auto (Unsp spec) 5.3 % 19-41 [facility] Basophil percentageOrdered B y: Remus Moises on 07-12-2023 Lactate [Moles/Vol] 0.8 mmol/L 0.4-2.0 [facility] Basophils/100 WBC (Bld) 0.4 % 0-1 [facility] Chloride [Moles/Vol] 109 mmol/L 98-107 [facility] Eosinophils/100 WBC (Bld) 1.0 % 0-5 [facility] Glucose [Mass/Vol] 102 mg/dL 74-106 [facility] Comment on above: Fasting Glucose resu lt from 100 to 125 mg/dL suggests IMPAIRED HOMEOSTASIS per A.D.A. criteria. Hemoglobin (Bld) [Mass/Vol] 12.7 g/dL 13.0-16.5 [facility] Lactate [Moles/Vol] 2.0 mmol/L 0.4-2.0 [facility] Comment on above: Critical Result(s) C alled at: 17:18:01 07/12/2023 by: Tristan Everett to Aminata Magdaleno. Results read back by same. Monocytes/100 WBC (Bld) 7.3 % 0-10 [facility] Neutrophils (Bld) [#/Vol] 9.8 10*3/uL 2.0-7.7 [facility] Neutrophils/100 WBC (Bld) 85.4 % 47-70 [facility] Potassium [Moles/Vol] 2.4 mmol/L 3.5-5.1 [facility] Comment on above: Critical Result(s) C alled at: 15:18:25 07/12/2023 by: Milton Wharton to Gaston GUERRA (ER). Results read back by same. Sodium [Moles/Vol] 141 mmol/L 136-145 [facility] WBC (Bld) [#/Vol] 11.4 10*3/uL 4.4-11.0 [facility] Determination of erythrocyte mean corpuscular volume (MCV)Ordered By: Nicola De Leon on 07-12-2023 MCV (RBC) [Entitic vol] 88.2 fL 80-94 [facility] Erythrocyte distribution wid th ratioOrdered By: Nicola De Leon on 07-12-2023 Erythrocyte distribution width (RBC) [Ratio] 12.8 % 11.6-14.6 [facility] Erythrocyte distribution wid th standard deviationOrdered By: Nicola De Leon on 07-12-2023 Erythrocyte distribution width (RBC) [Entitic vol] 41.9 fL 35.1-43.9 [facility] Gram stain for investigation of transfusion reactionOrdered By: Nicola De Leon on 07-12-2023 Microscopic observation Gram stain Nom (Unsp spec) [facility] Hematocrit Auto (Bld) [Volum e fraction]Ordered By: Nicola De Leon on 07-12-2023 Hematocrit (Bld) [Volume fraction] 39.0 % 40-54 [facility] Immature granulocytes/100 WB C Auto (Bld)Or[facility]: [facility] on 07-12-2023 Immature granulocytes/100 WBC (Bld) 0.600 % 0.0-0.9 [facility] Comment on above: IG% - Immature Granu locytes (promyelocytes, myelocytes and metamyelocytes) > 1% indicates that a LEFT SHIFT is Present. Laboratory - Chemistry and C hemistry - challengeOrdered By: Nicola De Leon on 07-12-2023 CO2 [Moles/Vol] 26.0 mmol/L 21.0-32.0 [facility] Urea nitrogen/Creatinine [Mass ratio] 11.8 mg/mg 10-20 [facility] - Hematology and Cell countsOrdered By: Nicola De Leon on 07-12-2023 MCH (RBC) [Entitic mass] 28.7 pg 27.0-32.0 [facility] MCHC (RBC) [Mass/Vol] 32.6 g/dL 32-36 [facility] Nucleated RBC/100 WBC (Bld) [Ratio] 0 % 0-5 [facility] Platelet mean volume (Bld) [Entitic vol] 9.0 fL 6.2-12.0 [facility] Platelets (Bld) [#/Vol] 309 10*3/uL 150-450 [facility] No Panel InformationOrdered By: Nicola De Leon on 07-12-2023 Estimated Creatinine Clearance Calc 105.13 ml/min [facility] Estimated GFR (MDRD) Amer 93 mL/min >60 [facility] Comment on above: GFR Calc Estimated GFR (MDRD) Non-Af Amer 77 mL/min >60 [facility] Comment on above: Non- GFR Calc Methicillin-Resist S.aureus DNA PCR Negative Negative [facility] RBC Auto (Bld) [#/Vol]Ordere d By: Remus Moises on 07-12-2023 RBC (Bld) [#/Vol] 4.42 10*6/uL 4.6-6.2 [facility] [place] [place] Serum or plasma calcium evelio urement (mass/volume)Ordered By: Remus Moises on 07-12-2023 Calcium [Mass/Vol] 9.0 mg/dL 8.5-10.1 [facility] Serum or plasma creatinine m easurement (mass/volume)Ordered By: [facility] on 07-12-2023 Creatinine [Mass/Vol] 1.02 mg/dL 0.70-1.30 [facility] Comment on above: The validity of the calculated GFR & GFRAA in patients over 70 years has not been determined. Clinical correlation is essential. Serum or plasma urea nitroge n measurement (mass/volume)Ordered By: [facility] on 07-12-2023 Urea nitrogen [Mass/Vol] 12 mg/dL 7-18 [facility] Staphylococcus aureus DNA de tection by probe and target amplification methodOrdered By: [facility] on 07-12-2023 S. aureus DNA QASIM+probe Ql (Unsp spec) Positive Negative [facility] Thin prep Papanicolaou smear with manual screeningOrdered By: [facility] on 07-12-2023 Thin prep Papanicolaou smear with manual screening 6 5-15 [facility] Absolute lymphocyte countOrd ered By: Marcus Sandoval on 07-02-2023 Lymphocytes Auto (Unsp spec) [#/Vol] 0.57 10*3/uL 0.83-4.51 [facility] Automated lymphocyte count a s percentage of total leukocytesOrdered By: Marcus Sandoval on 07-02-2023 Lymphocytes/100 WBC Auto (Unsp spec) 4.5 % 19-41 [facility] Basophil percentageOrdered B y: Marcus Sandoval on 07-02-2023 Basophils/100 WBC (Bld) 0.6 % 0-1 [facility] Bilirubin [Mass/Vol] 1.40 mg/dL 0.20-1.00 [facility] Comment on above: For patients on eltr ombopag therapy, use of [employer] [place] TBIL is not recommended. Chloride [Moles/Vol] 110 mmol/L 98-107 [facility] Eosinophils/100 WBC (Bld) 0.3 % 0-5 [facility] Glucose [Mass/Vol] 100 mg/dL 74-106 [facility] Comment on above: Fasting Glucose resu lt from 100 to 125 mg/dL suggests IMPAIRED HOMEOSTASIS per A.D.A. criteria. Hemoglobin (Bld) [Mass/Vol] 13.5 g/dL 13.0-16.5 [facility] Lactate [Moles/Vol] 2.1 mmol/L 0.4-2.0 [facility] Comment on above: Critical Result(s) C alled at: 17:20:42 07/02/2023 by: Miryam Valverde to [facility]. Results read back by same. Monocytes/100 WBC (Bld) 9.2 % 0-10 [facility] Neutrophils (Bld) [#/Vol] 10.7 10*3/uL 2.0-7.7 [facility] Neutrophils/100 WBC (Bld) 84.8 % 47-70 [facility] Potassium [Moles/Vol] 3.2 mmol/L 3.5-5.1 [facility] Protein [Mass/Vol] 8.4 g/dL 6.4-8.2 [facility] Sodium [Moles/Vol] 140 mmol/L 136-145 [facility] WBC (Bld) [#/Vol] 12.6 10*3/uL 4.4-11.0 [facility] Determination of erythrocyte mean corpuscular volume (MCV)Ordered By: Marcus Sandoval on 07-02-2023 MCV (RBC) [Entitic vol] 88.7 fL 80-94 [facility] Erythrocyte distribution wid th ratioOrdered By: Marcusromy Sandoval on 07-02-2023 Erythrocyte distribution width (RBC) [Ratio] 13.1 % 11.6-14.6 [facility] Erythrocyte distribution wid th standard deviationOrdered By: Marcusromy Sandoval on 07-02-2023 Erythrocyte distribution width (RBC) [Entitic vol] 42.4 fL 35.1-43.9 [facility] Erythrocyte sedimentation ra teOrdered By: Marcusromy Sandoval on 07-02-2023 ESR (Bld) [Velocity] 42 mm/h 0-20 [facility] Hematocrit Auto (Bld) [Volum e fraction]Ordered By: Marcusromy Sandoval on 07-02-2023 Hematocrit (Bld) [Volume fraction] 41.4 % 40-54 [facility] Immature granulocytes/100 WB C Auto (Bld)Ordered By: [facility] 07-[facility] Immature granulocytes/100 WBC (Bld) 0.600 % 0.0-0.9 [facility] Comment on above: IG% - Immature Granu locytes (promyelocytes, myelocytes and metamyelocytes) > 1% indicates that a LEFT SHIFT is Present. Laboratory - Chemistry and C hemistry - challengeOrdered By: [facility] on 07-02-2023 Albumin/Globulin [Mass ratio] 0.6 {ratio} 0.9-2.4 [facility] ALP [Catalytic activity/Vol] 63 U/L 45-117 [facility] ALT [Catalytic activity/Vol] 27 U/L 16-61 [facility] CO2 [Moles/Vol] 24.0 mmol/L 21.0-32.0 [facility] Globulin (S) [Mass/Vol] 5.2 g/dL 2.2-4.2 [facility] Urea nitrogen/Creatinine [Mass ratio] 14.8 mg/mg 10-20 [facility] - Hematology and Cell countsOrdered By: [facility] on 07-02-2023 MCH (RBC) [Entitic mass] 28.9 pg 27.0-32.0 [facility] MCHC (RBC) [Mass/Vol] 32.6 g/dL 32-36 [facility] Nucleated RBC/100 WBC (Bld) [Ratio] 0 % 0-5 [facility] Platelet mean volume (Bld) [Entitic vol] 9.5 fL 6.2-12.0 [facility] Platelets (Bld) [#/Vol] 238 10*3/uL 150-450 [facility] No Panel InformationOrdered By: Marcusromy Sandoval on 07-02-2023 Estimated GFR (MDRD) Amer 81 mL/min >60 [facility] Comment on above: GFR Calc Estimated GFR (MDRD) Non-Af Amer 67 mL/min >60 [facility] Comment on above: Non- GFR Calc RBC Auto (Bld) [#/Vol]Ordere d By: Marcus Sandoval on 07-02-2023 RBC (Bld) [#/Vol] 4.67 10*6/uL 4.6-6.2 [facility] Serum or plasma calcium evelio urement (mass/volume)Ordered By: Marcus Sandoval on 07-02-2023 Calcium [Mass/Vol] 9.1 mg/dL 8.5-10.1 [facility] Serum or plasma creatinine m easurement (mass/volume)Ordered By: Marcus Sandoval on 07-02-2023 Creatinine [Mass/Vol] 1.15 mg/dL 0.70-1.30 [facility] Comment on above: The validity of the calculated GFR & GFRAA in patients over 70 years has not been determined. Clinical correlation is essential. Serum or plasma urea nitroge n measurement (mass/volume)Ordered By: Macrus Sandoval on 07-02-2023 Urea nitrogen [Mass/Vol] 17 mg/dL 7-18 [facility] Thin prep Papanicolaou smear with manual screeningOrdered By: Marcus Sandoval on 07-02-2023 Thin prep Papanicolaou smear with manual screening 3.2 g/dL 3.2-5.0 [facility] Thin prep Papanicolaou smear with manual screening 34 U/L 15-37 [facility] Thin prep Papanicolaou smear with manual screening 6 5-15 [facility] Bacteria identified Cx Nom ( Wound)Ordered By: Dr. Mckenzie on 09-26-2022 Wound Culture GNR non account support analyst [facility] Wound Culture Aerococcus viridans. [facility] Wound Culture Staphylococcus aureus [facility] Wound Culture Streptococcus group G [facility] Wound Culture Staphylococcus simulans [facility] Absolute lymphocyte countOrd ered By: Dr. Mckenzie on 09-22-2022 Lymphocytes Auto (Unsp spec) [#/Vol] 0.84 10*3/uL 0.83-4.51 [facility] Bacteria identified Cx Nom ( Wound)Ordered By: Cristhian Mckenzie on 09-22-2022 Wound Culture GNR non account support analyst [facility] Wound Culture Aerococcus viridans. [facility] Wound Culture Staphylococcus aureus [facility] Wound Culture Streptococcus group G [facility] Wound Culture Staphylococcus simulans [facility] Basophil percentageOrdered B y: Dr. Mckenzie on 09-22-2022 Basophils/100 WBC (Bld) 0.9 % 0-1 [facility] Chloride [Moles/Vol] 103 mmol/L 98-107 [facility] Eosinophils/100 WBC (Bld) 1.5 % 0-5 [facility] Glucose [Mass/Vol] 107 mg/dL 74-106 [facility] Comment on above: Fasting Glucose resu lt from 100 to 125 mg/dL suggests IMPAIRED HOMEOSTASIS per A.D.A. criteria. Neutrophils (Bld) [#/Vol] 7.1 10*3/uL 2.0-7.7 [facility] Neutrophils/100 WBC (Bld) 79.6 % 47-70 [facility] Potassium [Moles/Vol] 3.2 mmol/L 3.5-5.1 [facility] Sodium [Moles/Vol] 138 mmol/L 136-145 [facility] WBC (Bld) [#/Vol] 8.9 10*3/uL 4.4-11.0 [facility] Blood erythrocytes count (nu mber/volume)Ordered By: Dr. Mckenzie on 09-22-2022 RBC (Bld) [#/Vol] 4.45 10*6/uL 4.6-6.2 [facility] Blood hemoglobin measurement (mass/volume)Ordered By: Dr. Mckenzie on 09-22-2022 Hemoglobin (Bld) [Mass/Vol] 12.5 g/dL 13.0-16.5 [facility] Blood lymphocytes/100 leukoc ytesOrdered By: Dr. Mckenzie on 09-22-2022 Lymphocytes/100 WBC (Bld) 9.5 % 19-41 [facility] Blood monocytes/100 leukocyt esOrdered By: Dr. Mckenzie on 09-22-2022 Monocytes/100 WBC (Bld) 6.9 % 0-10 [facility] Blood platelet mean volumeOr dered By: Dr. Mckenzie on 09-22-2022 Platelet mean volume (Bld) [Entitic vol] 10.0 fL 6.2-12.0 [facility] Determination of erythrocyte mean corpuscular volume (MCV)Ordered By: Dr. Mckenzie on 09-22-2022 MCV (RBC) [Entitic vol] 89.2 fL 80-94 [facility] Gram stain for investigation of transfusion reactionOrdered By: Cristhian Mckenzie on 09-22-2022 Microscopic observation Gram stain Nom (Unsp spec) [facility] Gram stain for investigation of transfusion reactionOrdered By: Dr. Mckenzie on 09-22-2022 Microscopic observation Gram stain Nom (Unsp spec) [facility] Hematocrit Auto (Bld) [Volum e fraction]Ordered By: Dr. Mckenzie on 09-22-2022 Hematocrit (Bld) [Volume fraction] 39.7 % 40-54 [facility] - Chemistry and C hemistry - challengeOrdered By: Dr. Mckenzie on 09-22-2022 CO2 [Moles/Vol] 30.0 mmol/L 21.0-32.0 [facility] Natriuretic peptide B (Bld) [Mass/Vol] 24.2 pg/mL 0-100 [facility] Urea nitrogen/Creatinine [Mass ratio] 15.4 mg/mg 10-20 [facility] - Hematology and Cell countsOrdered By: Dr. Mckenzie on 09-22-2022 Erythrocyte distribution width (RBC) [Entitic vol] 45.7 fL 35.1-43.9 [facility] Erythrocyte distribution width (RBC) [Ratio] 14.1 % 11.6-14.6 [facility] Immature granulocytes/100 WBC (Bld) 1.600 % 0.0-0.9 [facility] Comment on above: IG% - Immature Granu locytes (promyelocytes, myelocytes and metamyelocytes) > 1% indicates that a LEFT SHIFT is Present. MCH (RBC) [Entitic mass] 28.1 pg 27.0-32.0 [facility] Nucleated RBC/100 WBC (Bld) [Ratio] 0 % 0-5 [facility] MCHC Auto (RBC) [Mass/Vol]Or dered By: Dr. Mckenzie on 09-22-2022 MCHC (RBC) [Mass/Vol] 31.5 g/dL 32-36 [facility] No Panel InformationOrdered By: Dr. Mckenzie on 09-22-2022 Estimated Creatinine Clearance Calc 87.36 ml/min [facility] Estimated GFR (MDRD) Amer 115 mL/min >60 [facility] Comment on above: GFR Calc Estimated GFR (MDRD) Non-Af Amer 95 mL/min >60 [facility] Comment on above: Non- GFR Calc Platelets bldOrdered By: Dr. Mckenzie on 09-22-2022 Platelets (Bld) [#/Vol] 236 10*3/uL 150-450 [facility] Serum or plasma calcium evelio urement (mass/volume)Ordered By: Dr. Mckenzie on 09-22-2022 Calcium [Mass/Vol] 9.2 mg/dL 8.5-10.1 [facility] Serum or plasma creatinine m easurement (mass/volume)Ordered By: Dr. Mckenzie on 09-22-2022 Creatinine [Mass/Vol] 0.85 mg/dL 0.70-1.30 [facility] Comment on above: The validity of the calculated GFR & GFRAA in patients over 70 years has not been determined. Clinical correlation is essential. Serum or plasma urea nitroge n measurement (mass/volume)Ordered By: Dr. Mckenzie on 09-22-2022 Urea nitrogen [Mass/Vol] 13 mg/dL 7-18 [facility] Thin prep Papanicolaou smear with manual screeningOrdered By: Dr. Mckenzie on 09-22-2022 Thin prep Papanicolaou smear with manual screening 5 5-15 [facility] Vital Signs Date Time Vital Sign Value Performing Clinician Johnathan gamboa 01-22-2025 06:00-0400 Diastolic blood pressure 63 mm[Hg] [facility] Work Phone: [facility] 01-22-2025 06:00-0400 Heart rate 113 /min [facility] Work Phone: [facility] 01-22-2025 06:00-0400 Respiratory rate 17 /min [facility] Work Phone: [phone] [place] [address] 01-22-2025 06:00-0400 SaO2% (BldA) [Mass fraction] 97 % [facility] Work Phone: [phone] [place] [address] 01-22-2025 06:00-0400 Systolic blood pressure 97 mm[Hg] [facility] Work Phone: [phone] [place] [address] 01-22-2025 05:31-0400 Body temperature 98.4 [degF] [facility] Work Phone: [phone] [place] [address] 01-22-2025 00:11-0400 Body height 180.34 cm [facility] Work Phone: [phone] [place] [address] 01-22-2025 00:11-0400 Body mass index (BMI) [Ratio] 51.9 kg/m2 [facility] Work Phone: [phone])[phone] [place] [address] 01-22-2025 00:11-0400 Body weight 168.9 kg [facility] Work Phone: [phone] [place] [address] 07-13-2023 00:32-0500 Body temperature 98.6 [degF] [facility] Work Phone: [phone] [address] [place] [address] 07-13-2023 00:32-0500 Diastolic blood pressure 63 mm[Hg] [facility] Work Phone: 2(937)114-850141 [place] [address] 07-13-2023 00:32-0500 Heart rate 98 /min [facility] Work Phone: 4(007)419-645541 [place] [address] 07-13-2023 00:32-0500 Respiratory rate 18 /min [facility] Work Phone: 5(847)487-706941 [place] [address] 07-13-2023 00:32-0500 SaO2% (BldA) [Mass fraction] 94 % [facility] Work Phone: 5(222)395-422741 [place] [address] 07-13-2023 00:32-0500 Systolic blood pressure 114 mm[Hg] [facility] Work Phone: 5(342)371-726141 [place] [address] 07-12-2023 17:23-0500 Body height 180.34 cm [facility] Work Phone: 4(714)356-665941 [place] [address] 07-12-2023 17:23-0500 Body mass index (BMI) [Ratio] 49.7 kg/m2 [facility] Work Phone: [facility] 07-12-2023 17:23-0500 Body weight 161.79 kg [facility] Work Phone: [facility] 07-12-2023 16:00-0500 Body temperature 97.9 [degF] [facility] 07-12-2023 16:00-0500 Diastolic blood pressure 66 mm[Hg] [facility] 07-12-2023 16:00-0500 Heart rate 87 /min [facility] 07-12-2023 16:00-0500 Respiratory rate 16 /min [facility] 07-12-2023 16:00-0500 SaO2% (BldA) [Mass fraction] 97 % [facility] 07-12-2023 16:00-0500 Systolic blood pressure 119 mm[Hg] [facility] 07-12-2023 14:20-0500 Body mass index (BMI) [Ratio] 50 kg/m2 [facility] 07-12-2023 14:20-0500 Body weight 162.8 kg [facility] 07-12-2023 13:58-0500 Body height 180.34 cm [facility] 07-02-2023 20:41-0500 Body temperature 97.7 [degF] [facility] 07-02-2023 20:41-0500 Diastolic blood pressure 56 mm[Hg] [facility] 07-02-2023 20:41-0500 Heart rate 98 /min [facility] 07-02-2023 20:41-0500 Respiratory rate 17 /min [facility] 07-02-2023 20:41-0500 SaO2% (BldA) [Mass fraction] 95 % [facility] 07-02-2023 20:41-0500 Systolic blood pressure 127 mm[Hg] [facility] 07-02-2023 15:56-0500 Body height 180.34 cm [facility] 11-16-2022 10:05-0400 Body mass index (BMI) [Ratio] 47.4 kg/m2 Dr. Toño Heller Work Phone: 4(857)327-085441 [place] [address] 11-16-2022 10:05-0400 Body temperature 97.9 [degF] Dr. Toño Heller Work Phone: 7(781)295-061141 [place] [address] 11-16-2022 10:05-0400 Diastolic blood pressure 86 mm[Hg] Dr. Toño Heller Work Phone: 9(078)128-553641 [place] [address] 11-16-2022 10:05-0400 Heart rate 93 /min Dr. Toño Heller Work Phone: 6(404)736-356841 [place] [address] 11-16-2022 10:05-0400 Respiratory rate 16 /min Dr. Toño Hleler Work Phone: 8(492)045-253141 [place] [address] 11-16-2022 10:05-0400 Systolic blood pressure 135 mm[Hg] Dr. Toño Heller Work Phone: 0(416)416-236441 [place] [address] 11-11-2022 01:33-0400 Body weight 154.[address] Toño Heller Work Phone: 9(280)039-434441 [place] [address] 11-02-2022 09:21-0400 Body mass index (BMI) [Ratio] 47.4 kg/m2 Dr. Toño Heller Work Phone: 4(289)516-190541 [place] [address] 11-02-2022 09:21-0400 Body temperature 97.7 [degF] Dr. Toño Heller Work Phone: 8(323)445-157241 [place] [address] 11-02-2022 09:21-0400 Diastolic blood pressure 94 mm[Hg] Dr. Toño Heller Work Phone: 5(356)720-342741 [place] [address] 11-02-2022 09:21-0400 Heart rate 91 /min Dr. Toño Heller Work Phone: 6(070)016-803341 [place] [address] 11-02-2022 09:21-0400 Respiratory rate 16 /min Dr. Toño Heller Work Phone: 6(974)256-984441 [place] [address] 11-02-2022 09:21-0400 Systolic blood pressure 165 mm[Hg] Dr. Toño Heller Work Phone: 6(656)341-505041 [place] [address] 10-12-2022 00:48-0400 Body weight 154.[address] Toño Heller Work Phone: 8(421)317-016641 [place] [address] 10-10-2022 09:53-0400 Body mass index (BMI) [Ratio] 47.4 kg/m2 Dr. Toño Heller Work Phone: 5(946)830-235041 [place] [address] 10-10-2022 09:53-0400 Body temperature 97.1 [degF] Dr. Toño Heller Work Phone: 3(961)877-564641 [place] [address] 10-10-2022 09:53-0400 Diastolic blood pressure 76 mm[Hg] Dr. Toño Heller Work Phone: 7(293)586-509141 [place] [address] 10-10-2022 09:53-0400 Heart rate 102 /min Dr. Toño Heller Work Phone: 7(928)902-187141 [place] [address] 10-10-2022 09:53-0400 Respiratory rate 18 /min Dr. Toño Heller Work Phone: 2(835)039-489341 [place] [address] 10-10-2022 09:53-0400 Systolic blood pressure 119 mm[Hg] Dr. Toño Heller Work Phone: 4(460)195-969041 [place] [address] 10-05-2022 09:08-0400 Body height 180.[address] Toño Heller Work Phone: 3(569)060-441641 [place] [address] 10-05-2022 09:08-0400 Body weight 154.[address] Toño Heller Work Phone: 8(657)413-771041 [place] [address] 09-22-2022 12:00-0400 Respiratory rate 22 /min [facility] 09-22-2022 08:19-0400 Body mass index (BMI) [Ratio] 49.1 kg/m2 [facility] 09-22-2022 08:19-0400 Body weight 160 kg [facility] 09-22-2022 08:05-0400 Body height 180.34 cm [facility] 09-22-2022 08:05-0400 Body temperature 97.8 [degF] [facility] 09-22-2022 08:05-0400 Diastolic blood pressure 75 mm[Hg] [facility] 09-22-2022 08:05-0400 Heart rate 99 /min [facility] 09-22-2022 08:05-0400 SaO2% (BldA) [Mass fraction] 96 % [facility] 09-22-2022 08:05-0400 Systolic blood pressure 124 mm[Hg] [facility] Encounters Encounter Date Encounter Type Care Provider Facility Start: 03-24-2025 ambulatory [facility] Facility:[facility] Start: 03-17-2025 ambulatory [facility] Facility:[facility] Start: 03-10-2025 ambulatory [facility] Facility:[facility] Start: 03-03-2025 ambulatory Alyssa Gudla OLS Facili ty:[facility] Start: 02-27-2025 ambulatory [facility] Facility:[facility] Start: 02-24-2025 ambulatory Alyssa Gudla OLS Facili ty:[facility] Start: 02-19-2025 ambulatory Alyssa dla OLS Facili ty:[facility] Start: 01-22-2025 End: 02-18-2025 Evaluation and management of inpatient PROVIDER NOT IN SYSTEM [facility] Start: 01-22-2025 End: 01-26-2025 ambulatory PROVIDER NOT IN SYSTEM [facility] Start: 01-21-2025 End: 01-22-2025 Emergency department patient visit [facility] Work Phone: -Emergency Department Work Phone: Start: 04-21-2024 End: 05-09-2024 ambulatory Alejandro Sanders Facility:[facility] Start: 04-09-2024 End: 04-12-2024 ambulatory Myles Rebollar Facility:[facility] Start: 07-12-2023 Non-patient / Non-visit [facility] Work Phone: [facility] Work Phone: Start: 02-29-2024 [facility] Work Phone: Start: 07-12-2023 End: 07-12-2023 ambulatory [facility] Work Phone: [facility] Work Phone: Start: 07-12-2023 End: 07-12-2023 Discharged Recurring [facility] Work Phone: Start: 07-12-2023 [facility] Work Phone: Start: 07-02-2023 End: 07-02-2023 [facility]: Start: 11-16-2022 Non-patient / Non-visit Dr. Toño Heller Work Phone: [facility] Work Phone: Start: 11-16-2022 End: 11-17-[address] Toño Heller Work Phone: [facility] Work Phone: Start: 11-16-2022 End: 11-17-[address] Toño Heller Work Phone: [facility] Work Phone: Start: 11-02-2022 Non-patient / Non-visit Dr. Toño Heller Work Phone: [facility] Work Phone: Start: 11-02-2022 End: 11-10-[address] Toño Heller Work Phone: [facility] Work Phone: Start: 11-02-2022 End: 11-10-[address] Toño Heller Work Phone: [facility] Work Phone: Start: 10-26-2022 Non-patient / Non-visit Dr. Toño Heller Work Phone: [facility] Work Phone: Start: 10-19-2022 Non-patient / Non-visit Dr. Toño Heller Work Phone: [facility] Work Phone: Start: 10-12-2022 Non-patient / Non-visit Dr. Toño Heller Work Phone: [facility] Work Phone: Start: 10-10-2022 End: 10-11-[address] Toño Heller Work Phone: [facility] Work Phone: Start: 10-10-2022 End: 10-11-[address] [facility] Start: 10-05-2022 Non-patient / Non-visit Dr. Toño Heller Work Phone: [facility] Start: 09-22-2022 End: 09-22-2022 Emergency department patient visit [facility]-Emergency Department Procedures Date Procedure Procedure Detail Performing Clinician Start: 01-22-2025 MRI of lower extremity [facility] Work Phone: Start: 01-22-2025 Estimated creatinine clearance [facility] Work Phone: Start: 01-22-2025 Urnls dip stick/tabl et reagent auto microscopy [facility] Work Phone: Start: 01-22-2025 Flow cytometry cell surf marker techl only 1st [facility] Work Phone: Start: 01-22-2025 Reactive lymphocyte count [facility] Work Phone: Start: 01-21-2025 Plain chest X-ray [facility] Work Phone: Start: 07-12-2023 X-ray of both feet Start: 07-12-2023 Investigation of transfusion reaction Start: 07-02-2023 X-ray of both feet Start: 09-22-2022 Investigation of transfusion reaction Dr. Toño Heller Work Phone: Start: 09-22-2022 Microbial culture, routine Dr. Toño Heller Work Phone: Start: 09-22-2022 End: 09-22-2022 Radiography of ankle Microbial culture, routine Jemima Heller Work Phone: Plan of Treatment Date Care Activity Detail Author Start: 01-22-2025 Bacteria identified in Blood by Culture Blood Culture [facility] Start: 01-22-2025 Bacteria identified in Urine by Culture Urine Culture [facility] Start: 01-22-2025 [facility] Start: 01-22-2025 [facility] Start: 01-22-2025 [facility] Start: 07-13-2023 Blood chemistry [facility] Start: 07-12-2023 Referral to occupati onal therapist [facility] Start: 07-12-2023 Referral to service [facility] Start: 07-12-2023 Consultation [facility] Start: 07-12-2023 Following clinical p athway protocol [facility] Start: 07-12-2023 Assessment of risk o f venous thromboembolism [facility] Start: 07-12-2023 Catheterization of vein [facility] Start: 07-12-2023 Consultation for treatment [facility] Start: 07-12-2023 Insertion of cathete r into peripheral vein [facility] Start: 07-12-2023 MRI of lower extremity Lower Ext/No Jt/w/o [facility] Start: 07-12-2023 Providing care accor ding to standard [facility] Start: 07-12-2023 Provision of activit y privileges [facility] Start: 07-12-2023 Referral to hand buffer [facility] Start: 07-12-2023 [facility] Start: 07-12-2023 Verification routine [facility] Start: 07-12-2023 Admission procedure [facility] Start: 07-12-2023 End: 07-12-2023 Blood culture [facility] Start: 07-12-2023 [facility] Start: 07-12-2023 Bacteria identified in Blood by Culture Blood Culture [facility] Start: 07-12-2023 Wound Culture Wound Culture [facility] Start: 07-12-2023 Consultation [facility] Start: 07-12-2023 Patient referral to dietitian [facility] Start: 07-02-2023 [facility] Start: 07-02-2023 Referral to service [facility] Start: 09-22-2022 [facility] Anion gap measurement [facility] BUN/Creatinine ratio [facility] Calcium [Mass/volume ] in Serum or Plasma [facility] Carbon dioxide, tota l [Moles/volume] in Serum or Plasma [facility] Chloride [Moles/volu me] in Serum or Plasma [facility] Creatinine [Moles/vo lume] in Serum or Plasma [facility] Erythrocyte mean cor puscular volume determination [facility] Glucose [Mass/volume ] in Serum or Plasma [facility] Hematocrit [Volume F raction] of Blood [facility] Hemoglobin [Mass/vol ume] in Blood [facility] Leukocytes [#/volume ] in Blood [facility] Mean corpuscular hem oglobin concentration determination [facility] Mean corpuscular hem oglobin determination [facility] Measurement of renal function [facility] Microscopic observat ion [Identifier] in Unspecified specimen by Gram stain Gram Stain [facility] Neutrophil count [facility] Neutrophil percent differential count [facility] Patient Education [facility] Work Phone: Patient referral [facility] Work Phone: Platelets [#/volume] in Blood [facility] Potassium [Moles/vol ume] in Serum or Plasma [facility] Red blood cell count [facility] Red cell distributio n width determination [facility] Sodium [Moles/volume ] in Serum or Plasma [facility] Urea nitrogen [Mass/ volume] in Serum or Plasma [facility] Urine culture [facility] Vancomycin [Mass/vol ume] in Serum or Plasma --trough [facility] Wound Culture Wound Culture [facility] Wound microscopy, cu lture and sensitivities [facility] Immunizations Immunization Date Immunization Notes Care Provider Mello garrett 03-04-2022 Covid Moderna Bivale nt Booster [facility] Work Phone: [facility] 05-31-2021 Covid (Moderna) [facility] Work Phone: [facility]) [facility] Work Phone: [facility] 08-05-2020 [facility] Work Phone: [facility] Payers Date Payer Category Payer Medicaid [id number] 2024 Self-pay [id number] 2024 Unknown [id number] 1955 Unknown [id number]. [id number] 1955 Unknown [id number]. 902 1955 Unknown [id number]. 902 Medicare MEDICARE PART A B [id number] Private Health Insurance [id number] Unknown SELF INS [employer] [id number] Unknown [id number]. 462 Unknown [id number] [id number]. 462 Unknown [id number] [id number]. 462 Unknown [id number] 2.16.840.1.235514.3.579.2. 462 Unknown [id number] 2.16.840.1.509835.3.579.2. 462 Unknown [id number] 2.16.840.1.827315.3.579.2. 462 Unknown [id number] 2.16.840.1.328635.3.579.2. 462 Unknown [id number] 2.16.840.1.645191.3.579.2. 462 Unknown [id number] [id number]. 462 Unknown [id number]. 462 Social History Date Type Detail Facility Start: 09-22-2022 End: 07-12-2023 Tobacco smoking status AZIS Unknown if ever smoked [facility] Start: 10-01-2019 None [facility] Start: 10-01-2019 Alone [facility] Start: 11-12-2019 Non-smoker [facility] Start: 1955 Sex Assigned At Male [facility] Start: 01-22-2025 Tobacco smoking stat us AZIS Ex-smoker (finding) [facility] Medical Equipment Procedure Code Equipment Code Equipment Origin al Text Equipment Identifier Dates Debridement, wound Plant polysaccharide haemostatic agent, bioabsorbable ([id number] [facility] Start: 07-15-2023 Goals Date Patient Goal Desired Activity /State Functional Status Date Assessment Result Facility 07-12-2023 Functional status Ambulates [facility] Work Phone: Mental Status Date Assessment Result Facility 01-22-2025 Cognitive function Level Of Cons ciousness Awake;Alert;Appropriate;Follow s Commands [facility] Work Phone: 07-12-2023 Cognitive function Voice/Name [facility] Work Phone: 09-22-2022 Cognitive function Level Of Cons ciousness Awake;Alert;Appropriate;Follow s Commands [facility] Work Phone: Clinical Notes 09-22-2022 to [...] [facility] 02-02-2025 Note [facility] 02-02-2025 Note [facility] [...] Ce nter 01-22-2025 Radiology Diagnostic study note [facility] Imaging Services [address] [place], [place] [address] Extremity Lower without Contra MR#: [id number] Acct: [id number] Name: JAK TANNER Rep #: [id number] : 1955 M 69 From: Jl Hunt MD PCP: [facility] Status: PRE ER Study:Extremity Lower without Contra Date of Exam: 01/22/25 Exam# [id number] Ordering Dr: Yumiko Bee DO PROCEDURE: EXTREMITY [...] degenerative changes of both hips. Reading Location: [id number] CC: See Bee DO; [facility] ~ Production Bow Maker: Signed [facility] 01-22-2025 Discharge summary [facility] 01-22-2025 Radiology Diagnostic study note [facility] Imaging Services [address] [place] [address] Chest 1 View (Portable) MR#: [id number] Acct: [id number] Name: JAK TANNER Rep #: [id number] : 1955 M 69 From: Jl Hunt MD PCP: [facility] Status: PRE ER Study:Chest 1 View (Portable) Date of Exam: 01/21/25 Exam# [id number] Ordering Dr: Yumiko Bee DO PROCEDURE: CHEST 1 VIEW (PORTABLE) 01/22/2025 REASON FOR EXAM: COUGH TECHNIQUE: Frontal view of the chest. FINDINGS: The lungs are clear. The cardiomediastinal silhouette appears borderline enlarged, with mild atherosclerotic calcification of the aortic knob.. No acute osseous abnormality. RAD/Chest 1 View (Portable) IMPRESSION: As above. Reading Location: [id number] CC: See Bee DO; [facility] ~ Production Bow Maker: Signed [facility] 07-02-2023 Discharge summary Note Date/Time July 02, 2023 5:09pm [facility] Medical Records Department [address] [place] [address] Emergency Department Summary 07/02/23 MR#: [id number] Acct: [id number] Name: JAK TANNER Rep #:[id number] : 1955 68 From: Marcus Sandoval MD PCP: [facility] St atus:REG ER Location: ED [...] He has lived in his van for theidst 10 years. He has chronic lymphedema. He [...] 84.8 H Lymph % (Auto) 4.5 L [place] % (Auto) 9.2 Eos % (Auto) 0.3 [...] lymphedema. This was independent reviewed interpreted by nh [id number]) Diagnostic Testing: Clinical Impression(s) from Imaging Studies [...] 0RF Primary Care Provider: Toño Montes Referrals: [facility] Stanley,Toño Heller [Primary Care Provider] - As soon as possible Activity Restrictions/Additional Instructions: Follow-up at the [facility] for wound evaluation in 2 days. Do not remove the dressing until seen at the wound center. Disposition Disposition: Home, Self Care What to do if you have Problems For any increased pain, shortness of breath, bleeding, nausea or vomiting, chestpain, or any unexpected problems, contact your Primary Care Provider. Call [facility] ([phone]) or report to the closest Emergency Room. Call 911 if necessary. 07/02/231949 <Electronically signed by Marcus Sandoval MD> Cosigner Signature (if applicable): CC: [facility] ~ Signed [facility] Work Phone: 1(364) 679-595007-06-2023 Progress note Author john Sanchez [facility] November 16, 2022 1:08pm Note Date/Time November 16, 2022 1:08p [facility] [address] [place] [address] Progress Note - Wound Care 11/16/22 1304 MR#: [id number] Acct: [id number] Name: JAK TANNER Rep #:[id number] : 1955 67 From: Franklyn espinal MD [...] been using his compression. [facility] for feeling [...] Charges/Coding Visit Charges Office Visits / Consults: 81474 OV L3 Est Physical Exam Const alert, [...] Recorded Date Recorded By Document 11/16/22 10:05 TAI [id number] 11/16/22 10:15 TIA 11/16/22 10:05 - Today's Visit Information Type of service Follow-up Visit (Physician/CHIEF INVESTMENT OFFICER ) Arrival Mode Ambulatory Patient Identification Verified [...] Recorded Date Recorded By Document 11/16/22 10:05 [id number] 11/16/22 10:15 11/16/22 10:05 Wound Center Nurse [...] Recorded Date Recorded By Document 11/16/22 11:01 [id number] 11/16/22 11:04 11/16/22 11:01 Wound Center Nurse [...] Date Recorded By Document 11/16/22 12:07 TIA [id number] 11/16/22 12:08 TIA 11/16/22 12:07 Wound Care [...] wound center. This note was generated with [employer] dictation software. It may contain incorrectwords, spelling, and punctuation that were not noted in checking the note beforesigning. 11/16/22 1308 <Electronically signed by Franklyn Sanchez MD> Cosigner Signature (if applicable): CC: ~ Signed [facility] Work Phone: 1(621) 788-557606-22-2023 Progress note Author Efewongbe Oleghe [facility] November 02, 2022 1:44pm Note Date/Time November 02, 2022 11:1 1am [facility] [address] [place] [address] Progress Note - Wound Care 11/02/22 1107 MR#: [id number] Acct: [id number] Name: JAK TANNER Rep #:[id number] : 1955 67 From: Franklyn espinal MD [...] been using his compression. [facility] for feeling [...] Index (BMI) 47.4 Charges/Coding Procedures Integumentary 111xxx-113xx: 10509 Magdalena subq tissue 20 sq cm/< (Superficial [...] Recorded Date Recorded By Document 10/12/22 08:59 [facility] [id number] 10/12/22 09:18 [facility] Document 10/16/22 08:51 DL [id number] 10/16/22 08:55 DL Document 10/19/22 09:22 [facility] [id number] 10/19/22 09:44 [facility] Document 10/24/22 13:03 AK [id number] 10/24/22 13:06 ND Document 10/26/22 09:32 ND [id number] 10/26/22 09:34 ND Document 11/02/22 09:21 [facility] [id number] 11/02/22 09:31 [facility] 10/12/22 10/16/22 10/19/22 08:59 08:51 09:22 - Today's Visit Information Type of service Follow-up Visit Nurse-only Follow-up Visit (Physician/CHIEF INVESTMENT OFFICER Visit (Physician/CHIEF INVESTMENT OFFICER ) ) Arrival Mode Ambulatory Ambulatory Ambulatory [...] service Nurse-only Follow-up Visit Follow-up Visit Visit (Physician/CHIEF INVESTMENT OFFICER (Physician/CHIEF INVESTMENT OFFICER ) ) Arrival Mode Ambulatory Ambulatory Ambulatory [...] Recorded Date Recorded By Document 10/12/22 08:59 [facility] [id number] 10/12/22 09:18 BM Document 10/16/22 08:51 DL [id number] 10/16/22 08:55 DL Document 10/19/22 09:22 [facility] [id number] 10/19/22 09:44 BM Document 10/26/22 09:32 AK [id number] 10/26/22 09:34 AK Document 11/02/22 09:21 [facility] [id number] 11/02/22 09:31 BMF 10/12/22 10/16/22 10/19/22 08:59 [...] Date Recorded By Document 10/12/22 09:31 MW [id number] 10/12/22 09:48 MW Document 10/19/22 09:51 MW [id number] 10/19/22 10:21 MW Document 10/26/22 09:42 MW Desktop 10/26/22 09:50 MW Document 11/02/22 09:56 MW [id number] 11/02/22 10:05 MW 10/12/22 10/19/22 10/26/22 09:31 [...] Recorded Date Recorded By Document 10/12/22 10:13 [facility] [id number] 10/12/22 10:15 [facility] Document 10/16/22 08:51 DL [id number] 10/16/22 08:55 DL Document 10/19/22 10:28 [facility] [id number] 10/19/22 10:29 [facility] Document 10/24/22 13:03 ND [id number] 10/24/22 13:06 AK Document 10/24/22 13:06 AK [id number] 10/24/22 13:07 AK Document 11/02/22 10:39 DL [id number] 11/02/22 10:39 DL 10/12/22 10/16/22 10/19/22 10:13 08:51 10:28 Wound Care Center Nurse 3 #8- r 2nd toe -Ulcer Cleansing Soap and Water Soap and Water Soap and Water -Foul Odor after Cleansing No No -Negative Pressure Wound Therapy -Primary Dressing Applied Aquacel Extra Aquacel AG 4x4 Aquacel Extra -Other Dressing PER DL METAL PLATER -Primary Dressing Covered/Secured with Dry Gauze, Dry [...] unna aqaucel Ag UNNA BOOT; PER DL METAL PLATER -Primary Dressing Covered/Secured with Dry Gauze & Roll Gauze, Secured with Tape -Aquacel Extra 0 0 #6- R LAT ANKLE cluster -Ulcer Cleansing Rinsed/ Soap and Water Soap and Water Irrigated with Saline -Foul Odor after Cleansing No No No -Primary Dressing Applied Aquacel Extra Aquacel Extra -Other Dressing unna aqaucel Ag UNNA BOOT; PER DL METAL PLATER -Primary Dressing Covered/Secured with Dry Gauze, Secured [...] 2 weeks. This note was generated with Ge[employer]entric[employer] software. It may contain incorrectwords, spelling, and punctuation that were not noted in checking the note beforesigning. 11/02/22 1344 <Electronically signed by Franklyn Sanchez MD> Cosigner Signature (if applicable): CC: ~ Signed [facility] Work Phone: 1(418) 753-617406-15-2023 Progress note Author Franklyn Sanchez [facility] October 26, 2022 12:58pm Note Date/Time October 26, 2022 9:57 am [facility] [address] [place] [id number] Progress Note - Wound Care 10/26/22 0956 MR#: [id number] Acct: [id number] Name: JAK TANNER Rep #:[id number] : 1955 67 From: Franklyn espinal MD [...] been using [facility]. [facility] feeling [...] Index (BMI) 47.4 Charges/Coding Procedures Integumentary 111xxx-113xx: 14283 Magdalena subq tissue 20 sq cm/< Physical [...] Recorded Date Recorded By Document 10/12/22 08:59 [facility] [id number] 10/12/22 09:18 BMF Document 10/16/22 08:51 DL [id number] 10/16/22 08:55 DL Document 10/19/22 09:22 [facility] [id number] 10/19/22 09:44 BM Document 10/24/22 13:03 AK [id number] 10/24/22 13:06 AK Document 10/26/22 09:32 AK [id number] 10/26/22 09:34 AK 10/12/22 10/16/22 10/19/22 08:59 08:51 09:22 WC - Today's Visit Information Type of service Follow-up Visit Nurse-only Follow-up Visit (Physician/CHIEF INVESTMENT OFFICER Visit (Physician/CHIEF INVESTMENT OFFICER ) ) Arrival Mode Ambulatory Ambulatory Ambulatory [...] Type of service Nurse-only Follow-up Visit Visit (Physician/CHIEF INVESTMENT OFFICER ) Arrival Mode Ambulatory Ambulatory Transfer Assistance [...] Recorded Date Recorded By Document 10/12/22 08:59 [facility] [id number] 10/12/22 09:18 BMF Document 10/16/22 08:51 DL [id number] 10/16/22 08:55 DL Document 10/19/22 09:22 [facility] [id number] 10/19/22 09:44 BM Document 10/26/22 09:32 AK [id number] 10/26/22 09:34 AK 10/12/22 10/16/22 10/19/22 08:59 [...] Date Recorded By Document 10/12/22 09:31 MW [id number] 10/12/22 09:48 MW Document 10/19/22 09:51 MW [id number] 10/19/22 10:21 MW Document 10/26/22 09:42 MW [...] Recorded Date Recorded By Document 10/12/22 10:13 [facility] [id number] 10/12/22 10:15 [facility] Document 10/16/22 08:51 DL [id number] 10/16/22 08:55 DL Document 10/19/22 10:28 [facility] [id number] 10/19/22 10:29 [facility] Document 10/24/22 13:03 AK [id number] 10/24/22 13:06 ND Document 10/24/22 13:06 AK [id number] 10/24/22 13:07 AK 10/12/22 10/16/22 10/19/22 10:13 08:51 10:28 Wound Care Center Nurse 3 #8- r 2nd toe -Ulcer Cleansing Soap and Water Soap and Water Soap and Water -Foul Odor after Cleansing No No -Negative Pressure Wound Therapy -Primary Dressing Applied Aquacel Extra Aquacel AG 4x4 Aquacel Extra -Other Dressing PER DL METAL PLATER -Primary Dressing Covered/Secured with Dry Gauze, Dry [...] unna aqaucel Ag UNNA BOOT; PER DL METAL PLATER -Primary Dressing Covered/Secured with Dry Gauze & Roll Gauze, Secured with Tape -Aquacel Extra 0 0 #6- R LAT ANKLE cluster -Ulcer Cleansing Rinsed/ Soap and Water Soap and Water Irrigated with Saline -Foul Odor after Cleansing No No No -Primary Dressing Applied Aquacel Extra Aquacel Extra -Other Dressing unna aqaucel Ag UNNA BOOT; PER DL METAL PLATER -Primary Dressing Covered/Secured with Dry Gauze, Secured [...] a week. This note was generated with [employer] dictation software. It may contain incorrectwords, spelling, and punctuation that were not noted in checking the note beforesigning. 10/26/22 0950 <Electronically signed by Franklyn Sanchez MD> Cosigner Signature (if applicable): CC: ~ Signed [facility] Work Phone: 1(296) 142-407006-09-2023 Progress note Author Franklyn Sanchez [facility] October 20, 2022 12:59pm Note Date/Time October 19, 2022 1:00p [facility] [address] [place] [address] Progress Note - Wound Care 10/19/22 1254 MR#: [id number] Acct: [id number] Name: JAK TANNER Rep #:[id number] : 1955 67 From: Franklyn espinal MD [...] been using his compression. [facility] concern for feeling [...] Index (BMI) 47.4 Charges/Coding Procedures Integumentary 111xxx-113xx: 63549 Magdalena subq tissue 20 sq cm/< Add On Codes: 46691 Magdalena subq tissue add-on (x3. Additional square [...] Recorded Date Recorded By Document 10/12/22 08:59 [facility] [id number] 10/12/22 09:18 BMF Document 10/16/22 08:51 DL [id number] 10/16/22 08:55 DL Document 10/19/22 09:22 [facility] [id number] 10/19/22 09:44 BMF 10/12/22 10/16/22 10/19/22 08:59 08:51 09:22 - Today's Visit Information Type of service Follow-up Visit Nurse-only Follow-up Visit (Physician/CHIEF INVESTMENT OFFICER Visit (Physician/CHIEF INVESTMENT OFFICER ) ) Arrival Mode Ambulatory Ambulatory Ambulatory [...] Recorded Date Recorded By Document 10/12/22 08:59 [facility] [id number] 10/12/22 09:18 [facility] Document 10/16/22 08:51 DL [id number] 10/16/22 08:55 DL Document 10/19/22 09:22 [facility] [id number] 10/19/22 09:44 [facility] 10/12/22 10/16/22 10/19/22 08:59 08:51 09:22 Wound [...] Assessed -Moisture (Marva-wound Skin Appearance) Assessed -Color (Amrva-wound Skin Appearance) Assessed -Temperature (Marva-wound Skin No [...] Date Recorded By Document 10/12/22 09:31 MW [id number] 10/12/22 09:48 MW Document 10/19/22 09:51 MW [id number] 10/19/22 10:21 MW 10/12/22 10/19/22 09:31 09:51 [...] Recorded Date Recorded By Document 10/12/22 10:13 [facility] [id number] 10/12/22 10:15 [facility] Document 10/16/22 08:51 [id number] 10/16/22 08:55 Document 10/19/22 10:28 [facility] [id number] 10/19/22 10:29 [facility] 10/12/22 10/16/22 10/19/22 10:13 08:51 10:28 Wound Care Center Nurse 3 #8- r 2nd toe -Ulcer Cleansing Soap and Water Soap and Water Soap and Water -Foul Odor after Cleansing No No -Primary Dressing Applied Aquacel Extra Aquacel AG 4x4 Aquacel Extra -Other Dressing PER DL METAL PLATER -Primary Dressing Covered/Secured with Dry Gauze, Dry [...] unna aqaucel Ag UNNA BOOT; PER DL METAL PLATER -Primary Dressing Covered/Secured with Dry Gauze, Secured with Tape -Aquacel Extra 1 0 #4- L POST LE -Ulcer Cleansing Rinsed/ Soap and Water Soap and Water Irrigated with Saline -Foul Odor after Cleansing No No No -Primary Dressing Applied Aquacel Extra Aquacel Extra -Other Dressing unna aqaucel Ag UNNA BOOT; PER DL METAL PLATER -Primary Dressing Covered/Secured with Dry Gauze & [...] a week. This note was generated with [employer] software. It may contain incorrectwords, spelling, and punctuation that were not noted in checking the note beforesigning. 10/20/22 4447 <Electronically signed by Franklyn Sanchez MD> Cosigner Signature (if applicable): CC: ~ Signed [facility] Work Phone: 1(777) 572-880006-01-2023 Progress note Author [facility] October 12, 2022 10:39am Note Date/Time October 12, 2022 10:39 am [facility] [address] [place] [address] Progress Note - Wound Care 10/12/22 1036 MR#: [id number] Acct: [id number] Name: JAK TANNER Rep #:[id number] : 1955 67 From: Franklyn espinal MD PCP: Dr. oTño Heller Status:REG RC R Location: History of [...] been using his compression. [facility] for feeling [...] Index (BMI) 47.4 Charges/Coding Procedures Integumentary 111xxx-113xx: 29207 Magdalena subq tissue 20 sq cm/< Add On Codes: 98741 Magdalena subq tissue add-on (x3. Additional square [...] Recorded Date Recorded By Document 10/12/22 08:59 [facility] [id number] 10/12/22 09:18 [facility] 10/12/22 08:59 WC - Today's Visit Information Type of service Follow-up Visit (Physician/CHIEF INVESTMENT OFFICER ) Arrival Mode Ambulatory Transfer Assistance None [...] Patient Pain Free? Yes WC - Nurse 1 - General Ulcer Measurement Start: 10/12/22 08:59 Freq: Status: Active Protocol: Activity Type Activity Date Activity User E-sign Co-sign Detail Recorded Client Recorded Date Recorded By Document 10/12/22 08:59 [facility] [id number] 10/12/22 09:18 [facility] 10/12/22 08:59 Wound Center Nurse 1 #5- [...] Date Recorded By Document 10/12/22 09:31 MW [id number] 10/12/22 09:48 MW 10/12/22 09:31 Wound Center [...] Recorded Date Recorded By Document 10/12/22 10:13 [facility] [id number] 10/12/22 10:15 [facility] 10/12/22 10:13 Wound Care Center Nurse 3 [...] a week. This note was generated with [employer] dictation software. It may contain incorrectwords, spelling, and punctuation that were not noted in checking the note beforesigning. 10/12/22 1039 <Electronically signed by Franklyn Sanchez MD> Cosigner Signature (if applicable): CC: ~ Signed [facility] Work Phone: 1(882) 188-179305-26-2023 History and physical note Author Dr. Sanchez [facility] October 06, 2022 11:48am Note Date/Time October 05, 2022 1:10p m [facility] [address] [place] [address] H&P Exam - Wound Care 10/05/22 1252 MR#: [id number] Acct: [id number] Name: JAK TANNER Rep #:[id number] : 1955 67 From: Franklyn espinal MD [...] been using his compression. [facility] for feeling unwell, he was started on antibiotics and has 1 more day of it. Tolerating antibiotic well. Initially had a lot of drainage from his ulcers but he states that this has improved. No known historyof diabetes. No chills, fever or feeling of unwell at this time. [facility] Medical History (Updated 10/05/22 @ 13:17 [...]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
[2025-04-30 08:57] LABS: Hematocrit 34.1 % (40-54); Hemoglobin 11.0 g/dL (13.0-16.5); Mean Corp Hgb Conc 32.3 g/dL (32-36); Mean Corpuscular Volume 85.5 fL (80-94); Mean Platelet Vol. 9.3 fl (6.2-12.0); Platelet Count 264 K/mm3 (150-450); RBC Distribution Width CV 12.8 % (11.6-14.6); RBC Distribution Width SD 39.8 fl (35.1-43.9); Red Blood Count 3.99 M/mm3 (4.6-6.2); White Blood Count 5.6 K/mm3 (4.4-11.0)
[2025-04-30 09:29] LABS: AST(SGOT) 20 U/L (<=37); Alanine Aminotransfer ALT/SGPT 9 U/L (<=46); Albumin, Serum 2.9 g/dL (3.4-4.8); Alkaline Phosphatase 48 U/L (40-129); Anion Gap 9 (5-15); BUN 7 mg/dL (4-19); BUN/Creat Ratio 12.8 RATIO (10-20); Calcium,Total 8.9 mg/dL (7.6-11.0); Carbon Dioxide 26.3 mmol/L (21.0-32.0); Chloride 103 mmol/L (98-108); Globulin 4.0 g/dL (2.2-4.2); Glucose 90 mg/dL (70-99); Potassium 3.9 mmol/L (3.3-5.1)
== END ==
LOC: OLS.SW 05:00
PROVIDERS: Visit Provider Family Medicine
DX: I10 Essential (primary) hypertension (principal)
CPT/HCPCS: 36415; 80053; 85027

== ENCOUNTER → 2025-05-11 22:00 | Outpatient (REF) | payer MEDICARE, MEDICAID, SELFPAY | LOC: OLS.SW 22:00 | PROVIDERS: Visit Provider Family Medicine | DX: S31.000A Unspecified open wound of lower back and pelvis without penetration into retroperitoneum, initial encounter (principal) | CPT/HCPCS: 87070; 87077; 87186; 87205 ==